=== PATIENT | male | born 1960 | race American Indian/Alaskan Native ===

== ENCOUNTER 2020-04-25 08:08 | Outpatient (REF) | payer MEDICAID, SELFPAY ==
--- NOTE | 2020-04-25 | US_ITS ---
EXAMINATION: COLOR-FLOW DUPLEX IMAGING OF THE BILATERAL LOWER EXTREMITY ARTERIAL SYSTEM. VELOCITY MEASUREMENTS THROUGHOUT THE FEMORAL ARTERIES WITH ANKLE-BRACHIAL PERIPHERAL ARTERIAL TESTING. Interventional Radiologist: Robby Curry M.D., F.S.I.R., F.A.C.R. CLINICAL INFORMATION: This is a 59-year-old male with peripheral arterial disease. RIGHT FEMORAL RUNOFF VELOCITIES: The right common femoral artery measures 458 cm/s and triphasic. The right profunda femoral artery 84 63 cm/s and is biphasic. Right proximal superficial femoral artery is occluded Mid superficial femoral artery is occluded Distal right superficial femoral artery is occluded Right popliteal velocity measures 80 cm/s and biphasic. The posterior tibial artery velocity measures 15 cm/s and was biphasic. Velocity measurements on the stent were performed. The stent appears occluded throughout its course. The right ankle-brachial index is 0.48 LEFT FEMORAL RUNOFF VELOCITIES: The left common femoral artery measures 187 cm/s and triphasic. The left profunda femoral artery is 50 to cm/s and is biphasic. Right proximal superficial femoral artery measures 91 cm/s and triphasic. Mid superficial femoral artery is 91 cm/s and triphasic. Distal right superficial femoral artery measures 69 cm/s and is triphasic. Right popliteal velocity measures 85 cm/s and is triphasic. The posterior tibial artery velocity measures 73 cm/s and triphasic Velocity measurements on the stent were performed. The [place] artery proximal to the stent: 117 cm/s and triphasic. Proximal stent: 91 cm/s and triphasic Mid stent: 91 cm/s and triphasic Distal stent: 58 cm/s and triphasic [place] artery distal to the stent 69 cm/s and triphasic The left ankle-brachial index is 0.85. Atherosclerotic plaque is seen throughout the arteries bilaterally. US/US arterial duplex LE BI IMPRESSION: 1. Abnormal peripheral arterial testing with abnormal bilateral ankle-brachial indices. The disease appears severe on the right and moderate on the left. 2. There is occlusion of the [place] right superficial femoral artery. 3. The right lower extremity stent appears to be occluded. 4. The left lower extremity stent appears to be patent without focal stenosis.
--- NOTE | 2020-04-25 | US_ITS ---
EXAMINATION: COLOR-FLOW DUPLEX IMAGING OF THE BILATERAL LOWER EXTREMITY ARTERIAL SYSTEM. VELOCITY MEASUREMENTS THROUGHOUT THE FEMORAL ARTERIES WITH ANKLE-BRACHIAL PERIPHERAL ARTERIAL TESTING. Interventional Radiologist: Robby Curry M.D., F.S.I.R., F.A.C.R. CLINICAL INFORMATION: This is a 59-year-old male with peripheral arterial disease. RIGHT FEMORAL RUNOFF VELOCITIES: The right common femoral artery measures 458 cm/s and triphasic. The right profunda femoral artery 84 63 cm/s and is biphasic. Right proximal superficial femoral artery is occluded Mid superficial femoral artery is occluded Distal right superficial femoral artery is occluded Right popliteal velocity measures 80 cm/s and biphasic. The posterior tibial artery velocity measures 15 cm/s and was biphasic. Velocity measurements on the stent were performed. The stent appears occluded throughout its course. The right ankle-brachial index is 0.48 LEFT FEMORAL RUNOFF VELOCITIES: The left common femoral artery measures 187 cm/s and triphasic. The left profunda femoral artery is 50 to cm/s and is biphasic. Right proximal superficial femoral artery measures 91 cm/s and triphasic. Mid superficial femoral artery is 91 cm/s and triphasic. Distal right superficial femoral artery measures 69 cm/s and is triphasic. Right popliteal velocity measures 85 cm/s and is triphasic. The posterior tibial artery velocity measures 73 cm/s and triphasic Velocity measurements on the stent were performed. The [place] artery proximal to the stent: 117 cm/s and triphasic. Proximal stent: 91 cm/s and triphasic Mid stent: 91 cm/s and triphasic Distal stent: 58 cm/s and triphasic [place] artery distal to the stent 69 cm/s and triphasic The left ankle-brachial index is 0.85. Atherosclerotic plaque is seen throughout the arteries bilaterally. US/US STEPHANIE complete IMPRESSION: 1. Abnormal peripheral arterial testing with abnormal bilateral ankle-brachial indices. The disease appears severe on the right and moderate on the left. 2. There is occlusion of the [place] right superficial femoral artery. 3. The right lower extremity stent appears to be occluded. 4. The left lower extremity stent appears to be patent without focal stenosis.
== END 2020-04-25 08:09 | disposition home or self-care (01) ==
LOC: HO.US 08:08
PROVIDERS: PCP Family Medicine; Visit Provider Surgery Vascular Surgery
DX: I73.9 Peripheral vascular disease, unspecified (principal)
CPT/HCPCS: 93923; 93925

== ENCOUNTER → 2020-06-04 08:03 | Outpatient (BNVA) | payer MEDICAID, SELFPAY | PROVIDERS: PCP Family Medicine; Referring Provider Family Medicine; Visit Provider Psychiatry & Neurology Neurology | DX: Z13.89 Encounter for screening for other disorder (principal) ==

== ENCOUNTER 2020-07-25 10:49 | Emergency (ER) | payer MEDICAID, SELFPAY ==
[2020-07-25 11:46] VITALS: BP 157/52; PULSE 92; RESP 16; TEMP 36.5; O2SAT 100; BMI 35.1
--- NOTE | 2020-07-25 11:57 | US_ITS ---
EXAMINATION: US VENOUS ULTRASOUND WITH DOPPLER LOWER EXTREMITY, RIGHT CLINICAL INFORMATION: Right lower extremity pain and swelling. Assess for occult DVT COMPARISON: None TECHNIQUE: Ultrasound of the deep veins is performed from the hip to the calf with compression sonography and color and pulse Doppler assessment. Spectral analysis with color-flow imaging is performed. FINDINGS: There is normal venous compression and respiratory variation and augmented flow. The visualized common femoral vein, superficial femoral vein, profunda femoral vein, popliteal vein, and the trifurcation region shows no evidence of deep venous thrombosis. No popliteal fossa cyst. US/US venous duplex LE RT IMPRESSION: No DVT demonstrated in the right lower extremity.
--- NOTE | 2020-07-25 14:37 | ED_ITS ---
HPI - Extremity Injury (Lower) General Chief Complaint: Extremity Injury, Lower Stated Complaint: leg pain Time Seen by Provider: 07/25/20 11:57 History of Present Illness HPI Narrative: Patient complains of right leg redness and intermittent swelling over many many months that is coming and going, he made an appointment with his doctor a week ago went to the doctor's office and there was some swelling that was new in his right leg which the patient says is consistent with many prior episodes and was referred to the ER Patient says that the swelling we are seeing today is something that is common for him over many months, he has no acute pain, he has no difficulty breathing no shortness of breath no fever no chills Related Data Allergies Allergy/AdvReac Type Severity Reaction Status Date / Time No Known Drug Allergies Allergy Unknown UNKNOWN Unverified 03/21/20 17:24 Review of Systems Review of Systems: Positive for chronic right leg and left leg intermittent pain and swelling, worse on the right today Negatives are fever chills dizziness weakness, there is no shortness breath no chest pain, no palpitations, no recent injury, no numbness no weakness no tingling no back pain no urinary symptoms Yes all other systems are reviewed and are negative [facility]LY [facility] Past Medical History Attestation statement: The following information was validated with the patient. [facility] Narrative: Patient states he has many many months of symptoms in both legs with mild redness, occasionally swelling mild discomfort Source: nursing notes reviewed Medical History (Updated 07/25/20 @ 14:40 by NIEVES Kamara) Asthma Diabetes High cholesterol HTN (hypertension) Surgical History (Updated 05/08/20 @ 10:43 by Harper Marie MA) Hx of varicose vein stripping S/P angiogram of extremity Family History Family History (Updated 05/08/20 @ 10:38 by Harper Marie MA) Father No problems noted. Mother Diabetes HTN (hypertension) Sister No problems noted. Sister Diabetes HTN (hypertension) Sister No problems noted. Social History Social History (Updated 05/08/20 @ 10:36 by Harper Marie MA) Smoking Status: Current every day smoker Cigarettes Per Day: 11 Smoked in Last 30 Days: Yes Use of substances other than those prescribed or required for medical reasons: No Advance Directives: No Advance Directives Information Provided: No Physical Exam 2 Vital Signs: Vital Signs: Last Vital Signs Temp 97.3 F 07/25/20 14:50 Pulse 71 07/25/20 14:50 Resp 16 07/25/20 14:50 BP 156/53 H 07/25/20 14:50 Pulse Ox 98 07/25/20 14:50 Body Mass Index 35.1 General appearance no acute distress, comfortable, relaxed, cooperative Head is normocephalic atraumatic Neck is supple Chest is clear to auscultation bilaterally with full symmetric equal breath sounds, no chest wall tenderness, the heart no murmur auscultated The abdomen is soft nontender The extremities both have mild redness over distal extremities, not warm not tender not cold, they are both symmetrical, there is some swelling of the lower leg on the right side with no significant calf tenderness, there is no edema in either leg, the capillary refill was normal in both feet, but I could not palpate a pulse in either leg, Doppler exam revealed pulses in both legs, there were no wounds and skin was intact Neuro no focal deficit, gait is normal, motor is 5/5 x4 and sensation is intact and symmetrical Course Course Course Narrative: Ultrasound of right lower leg that was done because of the swelling today was negative for DVT patient's symptoms have been ongoing for almost a year, no sign of blood clot no cellulitis no ischemia today Concern is possible circulation problem and recommendation is follow with vascular surgeon for for further evaluation of blood flow to the feet Discharge Plan Discharge Clinical Impression: Chronic leg pain Qualifiers: Laterality: right Qualified Code(s): M79.604 - Pain in right leg Patient Disposition: Home, Self-Care Additional Instructions: We did an ultrasound of the leg which did not show any clot or any acute abnormality There did not appear to be any skin infection now Follow with primary care doctor for possible referral to a vascular specialist for ongoing issue with intermittent swelling and redness in the leg which may be from poor circulation Return to ER any time any worse condition or any concerns Discharge Date/Time: 07/25/20 15:03
--- NOTE | 2020-07-25 14:38 | PC.NURSE ---
+PP LEFT FOOT, +POST TIBIAL PULSE RT AND FAINT +PP RT FOOT BY DOPPLER, NIEVES IRAHETA
[2020-07-25 14:50] VITALS: BP 156/53; PULSE 71; RESP 16; TEMP 36.3; O2SAT 98
== END 2020-07-25 15:03 | disposition home or self-care (01) ==
PROVIDERS: Emergency Provider Emergency Medicine Emergency Medical Services; PCP Family Medicine
DX: M79.604 Pain in right leg (principal); R60.0 Localized edema; Z79.899 Other long term (current) drug therapy
CPT/HCPCS: 93971; 99284

== ENCOUNTER → 2020-09-17 10:05 | Outpatient (BNVA) | payer MEDICAID, SELFPAY | PROVIDERS: PCP Family Medicine; Visit Provider Surgery Vascular Surgery | DX: I73.9 Peripheral vascular disease, unspecified (principal) | CPT/HCPCS: 99212 ==

== ENCOUNTER 2020-09-24 08:59 | Outpatient (REF) | payer MEDICAID, SELFPAY ==
--- NOTE | ~2020-09-24 | US_ITS ---
EXAMINATION: NONINVASIVE ASSESSMENT OF THE ARTERIES OF THE AORTA AND BOTH LOWER EXTREMITIES WITH PVR EXAM AND BILATERAL LOWER EXTREMITY DUPLEX CLINICAL INFORMATION: Peripheral vascular disease. COMPARISON: Previous exam 12/20/2019. TECHNIQUE: Ankle pulse volume recordings, ankle pressure measurements and ankle-brachial indices were obtained of the lower extremity arterial system bilaterally in addition to duplex Doppler techniques with wave form analysis and measurement of velocities in the common femoral, profunda femoral, superficial femoral, popliteal and tibial arteries. The study was performed only at rest. FINDINGS: The visualized abdominal aorta is normal in caliber. No aneurysm is seen. Aortic peak systolic velocity is 22 cm/s proximally. The visualized right common iliac artery peak systolic velocity measures 28 cm/s with monophasic flow. The visualized right external iliac artery peak systolic velocity measures 121 cm/s with monophasic flow. The visualized left common iliac artery systolic velocity measures 42 cm/s with monophasic flow. The visualized left external iliac artery peak systolic velocity measures 133 cm/s with monophasic flow. AT REST: RIGHT LE. The right ankle-brachial index is: 0.5 2. Right ankle pressure: Decreased 3. Right ankle PVR waveform: Dampened 4. Right direct duplex Doppler findings: There is diffuse atherosclerotic disease with vessel wall calcification. There is visible luminal narrowing of the right common femoral artery. * Common femoral artery: 116 cm/s * Diastolic flow reversal: No. Monophasic. * Right profunda peak systolic velocity 92 cm/s with monophasic flow. * Superficial femoral artery (proximal, mid, distal): Occluded * Diastolic flow reversal: No. The right SFA stent is occluded. * Popliteal artery: 324 cm/s * Diastolic flow reversal: No. Monophasic. * Posterior tibial artery: 20 cm/s * Diastolic flow reversal: No. Monophasic. LEFT LE. The left ankle-brachial index is: 0.71 2. Left ankle pressure: Decreased 3. Left ankle PVR waveform: Dampened 4. Left direct duplex Doppler findings: There is diffuse atherosclerotic disease with vessel wall calcification. There is visible luminal narrowing of the left common femoral artery. * Common femoral artery: 78 cm/s * Diastolic flow reversal: No. Biphasic. Left [place]unda peak systolic velocity measures 132 cm/s with biphasic flow. * Superficial femoral artery (proximal, mid, distal): Occluded * Diastolic flow reversal: No. left SFA stent systolic velocities measure 322 cm/s proximally, 74 cm/s in the mid stent and 68 cm/s in the distal stent suggestive of hemodynamically significant stenosis. There is visible luminal narrowing throughout the length of the stent. * Popliteal artery: 33 cm/s * Diastolic flow reversal: No. Biphasic. * Posterior tibial artery: 11 cm/s * Diastolic flow reversal: No. Monophasic. STEPHANIE Reference: * >0.97-1.25 = normal - no significant arterial disease * 0.75-0.96 = mild peripheral arterial disease * 0.5-0.74 = moderate peripheral arterial disease * <0.50 = severe peripheral arterial disease US/US STEPHANIE complete IMPRESSION: Right: The right STEPHANIE is 0.5 suggestive of hiiciiop-op-cmmlys obstructive atherosclerotic disease. Monophasic flow throughout. There is significant plaque seen in the right common femoral artery. The right [place] superficial femoral artery and SFA stent are occluded. There are markedly elevated peak systolic velocities in the right popliteal artery suggestive of hemodynamically significant stenosis. There is dampened monophasic flow seen in the right posterior tibial artery. Left: The left STEPHANIE is 0.71 suggestive of moderate obstructive atherosclerotic disease. There is significant plaque seen in the left common femoral artery. The left [place] superficial femoral artery is occluded. There is diffuse luminal narrowing of the left SFA stent and elevated peak velocity suggestive of hemodynamically significant stenosis. Left popliteal artery is diseased but patent with biphasic flow. There is dampened monophasic flow seen in the left posterior tibial artery.
--- NOTE | ~2020-09-24 | US_ITS ---
EXAMINATION: NONINVASIVE ASSESSMENT OF THE ARTERIES OF THE AORTA AND BOTH LOWER EXTREMITIES WITH PVR EXAM AND BILATERAL LOWER EXTREMITY DUPLEX CLINICAL INFORMATION: Peripheral vascular disease. COMPARISON: Previous exam 12/20/2019. TECHNIQUE: Ankle pulse volume recordings, ankle pressure measurements and ankle-brachial indices were obtained of the lower extremity arterial system bilaterally in addition to duplex Doppler techniques with wave form analysis and measurement of velocities in the common femoral, profunda femoral, superficial femoral, popliteal and tibial arteries. The study was performed only at rest. FINDINGS: The visualized abdominal aorta is normal in caliber. No aneurysm is seen. Aortic peak systolic velocity is 22 cm/s proximally. The visualized right common iliac artery peak systolic velocity measures 28 cm/s with monophasic flow. The visualized right external iliac artery peak systolic velocity measures 121 cm/s with monophasic flow. The visualized left common iliac artery systolic velocity measures 42 cm/s with monophasic flow. The visualized left external iliac artery peak systolic velocity measures 133 cm/s with monophasic flow. AT REST: RIGHT LE. The right ankle-brachial index is: 0.5 2. Right ankle pressure: Decreased 3. Right ankle PVR waveform: Dampened 4. Right direct duplex Doppler findings: There is diffuse atherosclerotic disease with vessel wall calcification. There is visible luminal narrowing of the right common femoral artery. * Common femoral artery: 116 cm/s * Diastolic flow reversal: No. Monophasic. * Right profunda peak systolic velocity 92 cm/s with monophasic flow. * Superficial femoral artery (proximal, mid, distal): Occluded * Diastolic flow reversal: No. The right SFA stent is occluded. * Popliteal artery: 324 cm/s * Diastolic flow reversal: No. Monophasic. * Posterior tibial artery: 20 cm/s * Diastolic flow reversal: No. Monophasic. LEFT LE. The left ankle-brachial index is: 0.71 2. Left ankle pressure: Decreased 3. Left ankle PVR waveform: Dampened 4. Left direct duplex Doppler findings: There is diffuse atherosclerotic disease with vessel wall calcification. There is visible luminal narrowing of the left common femoral artery. * Common femoral artery: 78 cm/s * Diastolic flow reversal: No. Biphasic. Left [place] peak systolic velocity measures 132 cm/s with biphasic flow. * Superficial femoral artery (proximal, mid, distal): Occluded * Diastolic flow reversal: No. left SFA stent systolic velocities measure 322 cm/s proximally, 74 cm/s in the mid stent and 68 cm/s in the distal stent suggestive of hemodynamically significant stenosis. There is visible luminal narrowing throughout the length of the stent. * Popliteal artery: 33 cm/s * Diastolic flow reversal: No. Biphasic. * Posterior tibial artery: 11 cm/s * Diastolic flow reversal: No. Monophasic. STEPHANIE Reference: * >0.97-1.25 = normal - no significant arterial disease * 0.75-0.96 = mild peripheral arterial disease * 0.5-0.74 = moderate peripheral arterial disease * <0.50 = severe peripheral arterial disease US/US abdominal aortic aneurysm IMPRESSION: Right: The right STEPHANIE is 0.5 suggestive of ewtqeral-hw-ofmaaz obstructive atherosclerotic disease. Monophasic flow throughout. There is significant plaque seen in the right common femoral artery. The right [place] superficial femoral artery and SFA stent are occluded. There are markedly elevated peak systolic velocities in the right popliteal artery suggestive of hemodynamically significant stenosis. There is dampened monophasic flow seen in the right posterior tibial artery. Left: The left STEPHANIE is 0.71 suggestive of moderate obstructive atherosclerotic disease. There is significant plaque seen in the left common femoral artery. The left [place] superficial femoral artery is occluded. There is diffuse luminal narrowing of the left SFA stent and elevated peak velocity suggestive of hemodynamically significant stenosis. Left popliteal artery is diseased but patent with biphasic flow. There is dampened monophasic flow seen in the left posterior tibial artery.
--- NOTE | ~2020-09-24 | US_ITS ---
EXAMINATION: NONINVASIVE ASSESSMENT OF THE ARTERIES OF THE AORTA AND BOTH LOWER EXTREMITIES WITH PVR EXAM AND BILATERAL LOWER EXTREMITY DUPLEX CLINICAL INFORMATION: Peripheral vascular disease. COMPARISON: Previous exam 12/20/2019. TECHNIQUE: Ankle pulse volume recordings, ankle pressure measurements and ankle-brachial indices were obtained of the lower extremity arterial system bilaterally in addition to duplex Doppler techniques with wave form analysis and measurement of velocities in the common femoral, profunda femoral, superficial femoral, popliteal and tibial arteries. The study was performed only at rest. FINDINGS: The visualized abdominal aorta is normal in caliber. No aneurysm is seen. Aortic peak systolic velocity is 22 cm/s proximally. The visualized right common iliac artery peak systolic velocity measures 28 cm/s with monophasic flow. The visualized right external iliac artery peak systolic velocity measures 121 cm/s with monophasic flow. The visualized left common iliac artery systolic velocity measures 42 cm/s with monophasic flow. The visualized left external iliac artery peak systolic velocity measures 133 cm/s with monophasic flow. AT REST: RIGHT LE. The right ankle-brachial index is: 0.5 2. Right ankle pressure: Decreased 3. Right ankle PVR waveform: Dampened 4. Right direct duplex Doppler findings: There is diffuse atherosclerotic disease with vessel wall calcification. There is visible luminal narrowing of the right common femoral artery. * Common femoral artery: 116 cm/s * Diastolic flow reversal: No. Monophasic. * Right [place] peak systolic velocity 92 cm/s with monophasic flow. * Superficial femoral artery (proximal, mid, distal): Occluded * Diastolic flow reversal: No. The right SFA stent is occluded. * Popliteal artery: 324 cm/s * Diastolic flow reversal: No. Monophasic. * Posterior tibial artery: 20 cm/s * Diastolic flow reversal: No. Monophasic. LEFT LE. The left ankle-brachial index is: 0.71 2. Left ankle pressure: Decreased 3. Left ankle PVR waveform: Dampened 4. Left direct duplex Doppler findings: There is diffuse atherosclerotic disease with vessel wall calcification. There is visible luminal narrowing of the left common femoral artery. * Common femoral artery: 78 cm/s * Diastolic flow reversal: No. Biphasic. Left [place] peak systolic velocity measures 132 cm/s with biphasic flow. * Superficial femoral artery (proximal, mid, distal): Occluded * Diastolic flow reversal: No. left SFA stent systolic velocities measure 322 cm/s proximally, 74 cm/s in the mid stent and 68 cm/s in the distal stent suggestive of hemodynamically significant stenosis. There is visible luminal narrowing throughout the length of the stent. * Popliteal artery: 33 cm/s * Diastolic flow reversal: No. Biphasic. * Posterior tibial artery: 11 cm/s * Diastolic flow reversal: No. Monophasic. STEPHANIE Reference: * >0.97-1.25 = normal - no significant arterial disease * 0.75-0.96 = mild peripheral arterial disease * 0.5-0.74 = moderate peripheral arterial disease * <0.50 = severe peripheral arterial disease US/US arterial duplex LE BI IMPRESSION: Right: The right STEPHANIE is 0.5 suggestive of levlicoq-lx-svxson obstructive atherosclerotic disease. Monophasic flow throughout. There is significant plaque seen in the right common femoral artery. The right [place] superficial femoral artery and SFA stent are occluded. There are markedly elevated peak systolic velocities in the right popliteal artery suggestive of hemodynamically significant stenosis. There is dampened monophasic flow seen in the right posterior tibial artery. Left: The left STEPHANIE is 0.71 suggestive of moderate obstructive atherosclerotic disease. There is significant plaque seen in the left common femoral artery. The left [place] superficial femoral artery is occluded. There is diffuse luminal narrowing of the left SFA stent and elevated peak velocity suggestive of hemodynamically significant stenosis. Left popliteal artery is diseased but patent with biphasic flow. There is dampened monophasic flow seen in the left posterior tibial artery.
== END 2020-09-24 09:00 | disposition home or self-care (01) ==
LOC: HO.US 08:59
PROVIDERS: Visit Provider Surgery Vascular Surgery
DX: I70.213 Atherosclerosis of native arteries of extremities with intermittent claudication, bilateral legs (principal)
CPT/HCPCS: 76706; 93923; 93925

== ENCOUNTER 2020-10-09 08:48 | Outpatient (REF) | payer MEDICAID, SELFPAY ==
[2020-10-09 10:35] LABS: Estimated Glomerular Filt Rate > 60
[2020-10-09 10:38] LABS: Blood Urea Nitrogen 14 mg/dL (9-16)
== END 2020-10-09 08:49 | disposition home or self-care (01) ==
LOC: HO.LAB 08:48
PROVIDERS: PCP Family Medicine; Visit Provider Surgery Vascular Surgery
DX: I73.9 Peripheral vascular disease, unspecified (principal)
CPT/HCPCS: 36415; 82565; 84520

== ENCOUNTER 2020-10-14 10:03 | Outpatient (REF) | payer MEDICAID, SELFPAY | END 2020-10-14 10:04 | disposition home or self-care (01) | LOC: HO.CT 10:03 | PROVIDERS: Visit Provider Surgery Vascular Surgery | DX: Z13.89 Encounter for screening for other disorder (principal) ==

== ENCOUNTER 2020-12-10 04:43 | Inpatient (IN) | payer MEDICAID, SELFPAY ==
[2020-12-10] VITALS (9 sets, daily range): BP systolic 110–152; BP diastolic 46–76; PULSE 82–104; RESP 15–20; TEMP 36.3–37.7; O2SAT 96–98; BMI 34.2
--- NOTE | ~2020-12-10 | CT_ITS ---
EXAMINATION: CT ABDOMEN AND PELVIS WITH CONTRAST CLINICAL INFORMATION: Induration, perineal pain COMPARISON: 10/17/2019 TECHNIQUE: Multidetector volumetric images were obtained from the superior aspect of the liver through the pubic symphysis following administration 85 mL of Omnipaque 350 intravenous contrast. Sagittal and coronal reformatted images were obtained on the technologist's workstation. Oral contrast: No This CT examination was performed using dose optimization techniques as appropriate, variously including the following: *Automated exposure control *Adjustment of mA and/or kV according to patient size (this includes techniques or standardized protocols for targeted exams where dose is matched to indication/reason for exam; i.e. extremities or head) *Use of iterative reconstruction technique DLP: 878 mGy-cm FINDINGS: LUNG BASES: The visualized lung bases are unremarkable. Mild cardiomegaly. LIVER, GALLBLADDER, AND BILIARY TREE: The liver is normal in size, shape, and attenuation. No focal hepatic lesion or biliary ductal dilatation is present. The gallbladder is unremarkable with no evidence of radiopaque gallstones, gallbladder wall thickening, or obvious pericholecystic inflammatory changes. PANCREAS: Unremarkable. SPLEEN: Unremarkable. ADRENAL GLANDS: Unremarkable. KIDNEYS AND URETERS: The kidneys are normal in size, shape, and attenuation. No hydronephrosis, hydroureter, or obstructing calculi seen. Few scattered small hypodensities in the right kidney favor cysts. BLADDER: Partially distended. There is mild asymmetric left-sided bladder wall thickening with tiny amount of calcification as seen on image 83/119. GASTROINTESTINAL TRACT: The small and large bowel are unremarkable. The appendix is unremarkable. No free fluid or free air is seen. ABDOMINAL WALL: There are bilateral fat-containing inguinal hernias. There is some fat stranding along the perineum; no soft tissue gas or collection is seen. LYMPH NODES: Normal. VASCULAR: There is atherosclerotic calcification along the aorta and iliac arteries. Bilateral iliac artery stents noted. PELVIC VISCERA: The prostate gland is enlarged, measuring 5.3 cm in transverse diameter. OSSEOUS STRUCTURES: Unremarkable. CT/CT abdomen pelvis w con IMPRESSION: 1. Fat stranding along the perineum which may reflect cellulitis. No soft tissue gas or collection identified. 2. Mild left-sided bladder wall thickening containing tiny amount of calcification. Malignancy is a possibility, and further workup is recommended which may be performed with cystoscopy. 3. Enlarged prostate gland.
[2020-12-10 05:10] LABS: Basophils Absolute Auto 0.1 X10*3/uL (0.0-0.2); Basophils Percent Auto 0.4 % (0-2); Eosinophils Absolute Auto 0.1 X10*3/uL (0.0-0.4); Eosinophils Percent Auto 0.7 % (0-4); Hematocrit 44.3 % (42-52); Imm Gran Abs Auto 0.08 X10*3/uL (0.00-0.03); Imm Gran Pct Auto 0.4 % (0.0-0.4); Lymphocytes Absolute Auto 1.9 X10*3/uL (1.2-4.9); Lymphocytes Percent Auto 10.4 % (20-40); MANUAL DIFF FLAG SCAN; Mean Corpuscular HGB Conc 33.9 g/dl (31.0-36.0); Mean Corpuscular Hemoglobin 30.6 pg (27.0-33.0); Mean Corpuscular Volume 90.4 fL (80-98); Mean Platelet Volume 10.3 fL (9.4-12.4); Monocytes Absolute Auto 1.7 X10*3/uL (0.1-1.2); Monocytes Percent Auto 9.4 % (2-11); Neutrophils Absolute Auto 14.5 X10*3/uL (2.0-8.3); Neutrophils Percent Auto 78.7 % (45-73); Platelet Count 214 X10*3/uL (160-400); Red Cell Distribution Width 13.5 % (11.0-16.0); SCAN SMEAR FLAG 1; White Blood Count 18.4 X10*3/uL (4.8-10.8)
[2020-12-10 05:32] LABS: Alanine Aminotransferase 21 U/L (0-40); Albumin Level 4.1 g/dL (3.5-5.0); Alkaline Phosphatase 72 U/L (39-117); Anion Gap 15 (12-20); Aspartate Amino Transferase 12 U/L (5-37); Bilirubin Total 1.7 mg/dL (0.0-1.0); Blood Urea Nitrogen 12 mg/dL (9-16); Calcium 9.3 mg/dL (8.4-10.2); Carbon Dioxide 19 mmol/L (22-29); Chloride 102 mmol/L (96-108); Creatinine Clr Calc Pharmacy 91.3; Estimated Glomerular Filt Rate > 60; Glucose Random 223 mg/dL (60-115); Lipase 6 U/L (8-78); Potassium 4.3 mmol/L (3.3-5.1); Sodium 132 mmol/L (135-145); Total Protein 7.2 g/dL (6.5-8.0)
[2020-12-10 05:33] LABS: SLIDE REVIEW VERIFIED
[2020-12-10] MEDS: iohexoL 350 MG/ML 100 ML INFUS..BTL 85 ML IV (06:02)
--- NOTE | 2020-12-10 06:08 | ED.SKABFB ---
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 in the morning. Patient states that this just started and denies any associated fevers but reports chills. Related Data Home Medications Medication Instructions Recorded Confirmed aspirin 81 mg tablet,delayed 81 mg PO DAILY 09/17/20 release atorvastatin 80 mg tablet 80 mg PO DAILY 09/17/20 carvedilol 6.25 mg tablet 6.25 mg PO BID 09/17/20 cilostazol 100 mg tablet 100 mg PO BID 09/17/20 clopidogrel 75 mg tablet 75 mg PO DAILY 09/17/20 lisinopril 40 mg tablet 40 mg PO DAILY 09/17/20 metformin 750 mg tablet,extended 750 mg PO DAILY 09/17/20 release 24 hr pantoprazole 20 mg tablet,delayed 20 mg PO DAILY 09/17/20 release Allergies Allergy/AdvReac Type Severity Reaction Status Date / Time No Known Drug Allergies Allergy Unknown UNKNOWN Verified 09/17/20 10:23 Review of Systems Review of Systems: Pertinent positives and negatives as stated in HPI 10 point review of systems otherwise negative [facility] Past Medical History Source: nursing notes reviewed Medical History Asthma Diabetes High cholesterol HTN (hypertension) Surgical History Hx of varicose vein stripping S/P angiogram of extremity Family History Family History Father No problems noted. Mother Diabetes HTN (hypertension) Sister No problems noted. Sister Diabetes HTN (hypertension) Sister No problems noted. Social History Social History Alcohol intake: never Patient Tobacco Use Status: Current someday Tobacco user Cigarettes Per Day: 11 Smoked in Last 30 Days: Yes Use of substances other than those prescribed or required for medical reasons: No Advance Directives: No Physical Exam Vital Signs: Vital Signs: Last Vital Signs Temp 98.5 F 12/10/20 07:54 Pulse 95 12/10/20 07:54 Resp 19 12/10/20 07:54 BP 145/76 H 12/10/20 07:54 Pulse Ox 97 12/10/20 07:54 Body Mass Index 34.2 VITAL SIGNS: Reviewed. GENERAL: Well developed, well nourished, in no acute distress. HEAD: Normocephalic/atraumatic, EYES: PERRLA, EOMI OROPHARYNX: no oral lesions noted, posterior pharynx clear NECK: Supple, no adenopathy LUNGS: Normal breath sounds. No adventitious sounds or accessory muscle use. SpO2<96> CARDIOVASCULAR: Regular rate and rhythm without noted murmurs, no JVD or lower extremity edema. ABDOMEN: Soft, non-tender, non-distended with bowel sounds. PERINEAL: There is a noted 1.5 cm by 4-1/2 cm elliptical injury rated area of skin at the base of the scrotum the extends mildly posterior, there is no crepitus, and unable to appreciate fluctuance, no evidence of erythema, and further right posterior there is a noted area of abscess with spontaneous drainage of purulence material but in compass is a much larger area of induration SKIN: Inspection of the skin reveals no rashes NEUROLOGIC: Alert and oriented x 4. Strength and sensation to light touch were grossly intact x 4. Course Course Course Narrative: This is a 60-year-old male with history and clinical presentation consistent with perineal cellulitis. Review of all investigations illustrate a leukocytosis but CT scan not showing discrete collection. An area of purulence and fluctuance was noted to the right inferior gluteus with minimal drainage after incision. CRP-5.82, patient received vancomycin and Zosyn and consult was provided to surgical services and patient will be admitted to medicine service. Signed out to Dr Gould. Procedures Abscess I/D Site: marina-rectal Side (if applicable): right Local Anesthetic: lidocaine 2% Amount of anesthesia used (mL): 2 Technique: incised with blade Amount of fluid expressed (mL): 5 Sent for culture/gram staining?: No Irrigation: Yes Packing used?: iodoform MDM - Skin/Abscess/Foreign Bdy Lab Data Result diagrams: 12/10/20 05:02 12/10/20 05:02 Labs: Lab Results 12/10/20 12/10/20 12/10/20 Range/Units 05:02 05:02 05:47 WBC 18.4 H (4.8-10.8) X10*3/uL RBC 4.90 (4.60-5.80) X10*6/uL Hgb 15.0 (14.0-18.0) g/dl Hct 44.3 (42-52) % MCV 90.4 (80-98) fL MCH 30.6 (27.0-33.0) pg MCHC 33.9 (31.0-36.0) g/dl RDW 13.5 (11.0-16.0) % Plt Count 214 (160-400) X10*3/uL MPV 10.3 (9.4-12.4) fL Immature Gran % (Auto) 0.4 (0.0-0.4) % Neut % (Auto) 78.7 H (45-73) % Lymph % (Auto) 10.4 L (20-40) % [place] % (Auto) 9.4 (2-11) % Eos % (Auto) 0.7 (0-4) % Baso % (Auto) 0.4 (0-2) % Lymph # (Auto) 1.9 (1.2-4.9) X10*3/uL [place] # (Auto) 1.7 H (0.1-1.2) X10*3/uL Eos # (Auto) 0.1 (0.0-0.4) X10*3/uL Baso # (Auto) 0.1 (0.0-0.2) X10*3/uL Abs Immat Gran (auto) 0.08 H (0.00-0.03) X10*3/uL Absolute Neuts (auto) 14.5 H (2.0-8.3) X10*3/uL Absolute Nucleated RBC 0.000 (0.0-0.012) X10*3/uL Nucleated RBC % (auto) 0.0 (0.0-0.2) /100WBC Smear Tech's Comments VERIFIED Sodium 132 L (135-145) mmol/L Potassium 4.3 (3.3-5.1) mmol/L Chloride 102 (96-108) mmol/L Carbon Dioxide 19 L (22-29) mmol/L Anion Gap 15 (12-20) BUN 12 (9-16) mg/dL Creatinine 0.91 (0.5-1.4) mg/dL Estim Creat Clear Calc 91.3 Estimated GFR > 60 Random Glucose 223 H (60-115) mg/dL Lactic Acid 1.4 (0.5-2.0) mmol/L Calcium 9.3 (8.4-10.2) mg/dL Total Bilirubin 1.7 H (0.0-1.0) mg/dL AST 12 (5-37) U/L ALT 21 (0-40) U/L Alkaline Phosphatase 72 (39-117) U/L C-Reactive Protein 5.82 H (< or = 0.50) mg/dL Total Protein 7.2 (6.5-8.0) g/dL Albumin 4.1 (3.5-5.0) g/dL Lipase 6 L (8-78) U/L Urine Color Urine Appearance Urine pH (5.0-8.0) Ur Specific [place] (1.005-1.025) Urine Protein (NEG-TRACE) MG/DL Urine Glucose (UA) (NEG) MG/DL Urine Ketones (NEG) MG/DL Urine Blood (NEG) Urine Nitrite (NEG) Ur Leukocyte Esterase (NEG) Urine RBC (0) /HPF Urine WBC (0-4) /HPF Ur Squamous Epith Cells /LPF Urine Bacteria /LPF 12/10/20 Range/Units 06:22 WBC (4.8-10.8) X10*3/uL RBC (4.60-5.80) X10*6/uL Hgb (14.0-18.0) g/dl Hct (42-52) % MCV (80-98) fL MCH (27.0-33.0) pg MCHC (31.0-36.0) g/dl RDW (11.0-16.0) % Plt Count (160-400) X10*3/uL MPV (9.4-12.4) fL Immature Gran % (Auto) (0.0-0.4) % Neut % (Auto) (45-73) % Lymph % (Auto) (20-40) % [place] % (Auto) (2-11) % Eos % (Auto) (0-4) % Baso % (Auto) (0-2) % Lymph # (Auto) (1.2-4.9) X10*3/uL [place] # (Auto) (0.1-1.2) X10*3/uL Eos # (Auto) (0.0-0.4) X10*3/uL Baso # (Auto) (0.0-0.2) X10*3/uL Abs Immat Gran (auto) (0.00-0.03) X10*3/uL Absolute Neuts (auto) (2.0-8.3) X10*3/uL Absolute Nucleated RBC (0.0-0.012) X10*3/uL Nucleated RBC % (auto) (0.0-0.2) /100WBC Smear Tech's Comments Sodium (135-145) mmol/L Potassium (3.3-5.1) mmol/L Chloride (96-108) mmol/L Carbon Dioxide (22-29) mmol/L Anion Gap (12-20) BUN (9-16) mg/dL Creatinine (0.5-1.4) mg/dL Estim Creat Clear Calc Estimated GFR Random Glucose (60-115) mg/dL Lactic Acid (0.5-2.0) mmol/L Calcium (8.4-10.2) mg/dL Total Bilirubin (0.0-1.0) mg/dL AST (5-37) U/L ALT (0-40) U/L Alkaline Phosphatase (39-117) U/L C-Reactive Protein (< or = 0.50) mg/dL Total Protein (6.5-8.0) g/dL Albumin (3.5-5.0) g/dL Lipase (8-78) U/L Urine Color YELLOW Urine Appearance CLEAR Urine pH 6.5 (5.0-8.0) Ur Specific [place] 1.010 (1.005-1.025) Urine Protein 1+ H (NEG-TRACE) MG/DL Urine Glucose (UA) 250 H (NEG) MG/DL Urine Ketones 5 (NEG) MG/DL Urine Blood 1+ H (NEG) Urine Nitrite NEG (NEG) Ur Leukocyte Esterase NEG (NEG) Urine RBC 0-2 (0) /HPF Urine WBC 0-2 (0-4) /HPF Ur Squamous Epith Cells NONE /LPF Urine Bacteria NONE /LPF Discharge Plan Discharge Clinical Impression: Cellulitis, perineum Patient Disposition: Admitted As Inpatient
[2020-12-10 06:22] LABS: Lactic Acid 1.4 mmol/L (0.5-2.0)
[2020-12-10 06:28] LABS: Glucose Urine UA 250 MG/DL (NEG); Leukocyte Esterase Urine NEG (NEG); Nitrite Urine NEG (NEG); PH 6.5 (5.0-8.0); Urine Blood 1+ (NEG); Urine Ketones 5 MG/DL (NEG); Urine Protein 1+ MG/DL (NEG-TRACE)
[2020-12-10 06:29] LABS: Appearance Urine CLEAR; Color Urine YELLOW
[2020-12-10 06:35] LABS: RBC Urine 0-2 /HPF (0); WBC Urine 0-2 /HPF (0-4)
[2020-12-10] MEDS: Ketorolac Tromethamine 15 MG/ML VIAL IVPUSH (07:07)
[2020-12-10] MEDS: Lidocaine HCl 2 % 20 ML VIAL SUBCUT (07:27)
[2020-12-10 08:05] LABS: C Reactive Protein 5.82 mg/dL (< or = 0.50)
[2020-12-10] MEDS: Piperacillin Sodium/Tazobactam 3.375 GM in 0.9 % Sodium Chloride 50 ML IV ×3 (08:05→23:45)
--- NOTE | 2020-12-10 08:07 | ECG_ITS ---
Test Reason : INFECTION Blood Pressure : / mmHG Vent. Rate : 084 BPM Atrial Rate : 084 BPM P-R Int : 176 ms QRS Dur : 112 ms QT Int : 398 ms P-R-T Axes : 081 -38 114 degrees QTc Int : 470 ms Normal sinus rhythm Possible Left atrial enlargement Left axis deviation Left ventricular hypertrophy with repolarization abnormality Inferior infarct , age undetermined Abnormal ECG When compared to the previous EKG of Inferior infarct changes seen Referred By: Nicolle Pandey Electronically Signed By:GLEN JAIN MD
[2020-12-10] MEDS: ondansetron HCL 4 MG/2 ML VIAL IVPUSH (08:08)
[2020-12-10] MEDS: vancomycin HCL 1,000 MG in 0.9 % Sodium Chloride 250 ML 270 MG IV (08:28)
--- NOTE | 2020-12-10 08:32 | PC.NURSE ---
ekg completed at bedside, awaiting consult from urology d/t appearance of testicular inclusion from wound sites. antibiotics infusing. wctm.
[2020-12-10 09:02] LABS: Erythrocyte Sedimentation Rate 10 MM/HR (0-15)
--- NOTE | 2020-12-10 09:54 | PC.NURSE ---
pt continuing to await for hospitalist re: inpt admission, pt requesting to use a pump inhaler, pt has slight wheeze on exp phase in bl bases. pt in nad, side lying l side in stretcher for comfort. wctm.
[2020-12-10 10:12] LABS: COVID-19 Test Negative (Negative)
[2020-12-10] MEDS: Albuterol Sulfate (0.083%) 2.5 MG/3 ML VIAL.NEB INHALE (10:54)
[2020-12-10] MEDS: Morphine Sulfate 4 MG/ML CARTRIDGE IVPUSH (11:05)
--- NOTE | 2020-12-10 12:26 | PC.NURSE ---
hospitalist at bedside for eval.
--- NOTE | 2020-12-10 13:36 | PHA.MEDREC ---
Pharmacy Consult ? Medication Reconciliation Pharmacy has completed the medication reconciliation. Patient is compliant with his medications through [facility] at [facility]. Patient did not take any medications today. Valerie Poon, SeveroD
[2020-12-10] MEDS: 0.9 % Sodium Chloride Flush 3 ML SYRINGE IVFLUSH ×2 (16:45→23:45)
--- NOTE | 2020-12-10 16:56 | PM.CNGS ---
History of Present Illness Consult details Consult date: 12/10/20 Narrative: [age] year male, with diabetes, who came to the emergency room this morning because of pain at the base of his scrotum. He was noted to have a small cellulitic area at the base of the scrotum on the perineum. He denied any trauma or insect bite to the area. He denied any drainage. He stated that he had noticed this swelling since 4 days ago. He denies any fever. This area was lanced by the ED staff and there was minimal output that was drained. He was admitted to the medical service for cellulitis. Review of Systems Constitutional: Constitutional: Denies fever(s) Cardiovascular: Cardiovascular: Denies chest pain, Denies dyspnea and Denies dyspnea on exertion Respiratory: Respiratory: Denies cough, Denies dyspnea and Denies dyspnea on exertion Gastrointestinal: Gastrointestinal: Denies hematochezia and Denies change in bowel habits Genitourinary: Genitourinary: Denies hematuria and Denies difficulty urinating Musculoskeletal: Musculoskeletal: Denies back pain and Denies limited range of motion Neurologic: Denies focal weakness and Denies convulsions Psychiatric: Psychiatric: Denies depression and Denies mood swings PMFSH Past Medical History Medical History (Updated 12/11/20 @ 11:23 by Holden Mojica MD) Asthma Diabetes High cholesterol HTN (hypertension) Family History Family History Father No problems noted. Mother Diabetes HTN (hypertension) Sister No problems noted. Sister Diabetes HTN (hypertension) Sister No problems noted. Surgical History Surgical History Hx of varicose vein stripping S/P angiogram of extremity Social History Social History Household Members: None Housing: Apartment Do you presently have visiting nurse or other home services: Yes Alcohol intake: never Patient Tobacco Use Status: Current someday Tobacco user Cigarettes Per Day: 6 Years Smoked: 15 Smoked in Last 30 Days: Yes Patient Interested in Nicotine Replacement: No Patient Given Instructions on How to Stop Smoking: No (patient refuses) Second Hand Smoke Exposure: No Use of substances other than those prescribed or required for medical reasons: No Currently Displaying Signs/Symptoms of Drug Intoxication Withdrawal: No Any prior treatment program specific to substance use: No Have you been hit, kicked, punched, or otherwise hurt by someone within the past year? If so, by whom?: No Do you feel safe in your current relationship?: Yes Is there a partner from a previous relationship who is making you feel unsafe now?: No Are you made to feel afraid or neglected: No Advance Directives: Yes Advance Directives on File: Yes Advance Directives Date on File: 12/10/20 Do you have thoughts of harming others: None Do you have a plan to hurt others: No Plan Nutrition Risks: No Nutritional Risk service: No Current occupational status: disabled Meds Allergies Allergy/AdvReac Type Severity Reaction Status Date / Time No Known Drug Allergies Allergy Unknown UNKNOWN Verified 09/17/20 10:23 Active Medications: Current Medications Generic Name Dose Route Start Last Admin Trade Name Freq PRN Reason Stop Dose Admin Acetaminophen 650 mg 12/10/20 15:56 Acetaminophen 325 Mg Tablet PO Q6H PRN Pain, Mild (Pain Scale 1-3) Ketorolac Tromethamine 15 mg 12/10/20 11:13 Ketorolac Tromethamine 15 Mg/Ml Vial IVPUSH Q6H PRN Pain, Moderate (Pain Scale 4-6 Morphine Sulfate 2 mg 12/10/20 15:56 Morphine Sulfate 4 Mg/Ml Cartridge IVPUSH Q4H PRN Pain, Severe (Pain Scale 7-10) Ondansetron HCl 4 mg 12/10/20 15:56 Ondansetron Hcl 4 Mg/2 Ml Vial IVPUSH Q8H PRN Nausea and Vomiting Pharmacy Consult 1 each 12/10/20 07:41 Consult Rx Vancomycin Dosing MISCELLANE DAILY PRN Consult order Pharmacy Consult 1 each 12/10/20 13:38 Consult Rx Perform Med Rec MISCELLANE ONCE PRN Consult order Rivaroxaban 10 mg 12/11/20 09:00 Rivaroxaban 10 Mg Tablet PO DAILY KARI Sodium Chloride 3 ml 12/10/20 16:00 12/10/20 16:45 0.9 % Sodium Chloride Flush 3 Ml Syringe IVFLUSH 3 ml QSHIFT [facility] Administration Home Medications Medication Instructions Recorded Confirmed Last Taken Type aspirin 81 mg PO DAILY 12/10/20 12/10/20 12/09/20 History atorvastatin 80 mg PO BEDTIME 12/10/20 12/10/20 12/09/20 History carvedilol 6.25 mg PO BID 12/10/20 12/10/20 12/09/20 History cilostazol 100 mg PO BID 12/10/20 12/10/20 12/09/20 History clopidogrel 75 mg PO BEDTIME 12/10/20 12/10/20 12/09/20 History insulin glargine [Lantus Solostar 40 unit SUBCUT BEDTIME 12/10/20 12/10/20 12/09/20 History U-100 Insulin] insulin lispro [Humalog KwikPen 12 unit SUBCUT TID PRN 12/10/20 12/10/20 12/09/20 History Insulin] ipratropium-albuterol [Combivent 1 puff INHALATION QID PRN 12/10/20 12/10/20 12/09/20 History Respimat] lisinopril 1 tab PO BEDTIME 12/10/20 12/10/20 12/09/20 History metformin 850 mg PO BID 12/10/20 12/10/20 12/09/20 History pantoprazole 20 mg PO DAILY 12/10/20 12/10/20 12/09/20 History polyvinyl alcohol [Artificial 1 drp OPHTHALMIC (EYE) BID 12/10/20 12/10/20 12/09/20 History Tears (polyvin alc)] Physical Exam Vital Signs: Vital Signs: Last Vital Signs Temp 98.6 F 12/10/20 15:57 Pulse 95 12/10/20 15:57 Resp 20 12/10/20 15:57 BP 149/73 H 12/10/20 15:57 Pulse Ox 96 12/10/20 15:57 Body Mass Index 34.2 Const: Other: Looks well, ambulating, does state that he has pain in the base of the scrotum General: comfortable and no acute distress Orientation/consciousness: patient oriented x3 Neck: Neck: Yes no lymphadenopathy Resp: Auscultation: clear to auscultation bilaterally Cardio: Rhythm: regular rhythm GI: Palpation (GI): Soft to palpation, nontender and no guarding : Other: Near the base of the scrotum in the perineum is an area of induration, about 2 cm, nonfluctuant, no drainage; separate area on the right posterior perianal skin with buttock with a small I&D site that has a very scanty drainage, no surrounding cellulitis, no discoloration, no red streaking, no crepitus Neuro: General: patient oriented x3 Results Labs Result diagrams: 12/12/20 06:08 12/12/20 06:08 Labs: Abnormal lab results 12/10/20 12/10/20 12/10/20 Range/Units 05:02 05:02 06:22 WBC 18.4 H (4.8-10.8) X10*3/uL Neut % (Auto) 78.7 H (45-73) % Lymph % (Auto) 10.4 L (20-40) % [place] # (Auto) 1.7 H (0.1-1.2) X10*3/uL Abs Immat Gran (auto) 0.08 H (0.00-0.03) X10*3/uL Absolute Neuts (auto) 14.5 H (2.0-8.3) X10*3/uL Sodium 132 L (135-145) mmol/L Carbon Dioxide 19 L (22-29) mmol/L Random Glucose 223 H (60-115) mg/dL Total Bilirubin 1.7 H (0.0-1.0) mg/dL C-Reactive Protein 5.82 H (< or = 0.50) mg/dL Lipase 6 L (8-78) U/L Urine Protein 1+ H (NEG-TRACE) MG/DL Urine Glucose (UA) 250 H (NEG) MG/DL Urine Blood 1+ H (NEG) Short CBC 12/10/20 Range/Units 05:02 WBC 18.4 H (4.8-10.8) X10*3/uL Hgb 15.0 (14.0-18.0) g/dl Hct 44.3 (42-52) % Plt Count 214 (160-400) X10*3/uL BMP 12/10/20 05:02 Sodium 132 L Potassium 4.3 Chloride 102 Carbon Dioxide 19 L BUN 12 Creatinine 0.91 Calcium 9.3 Liver Function 12/10/20 Range/Units 05:02 Total Bilirubin 1.7 H (0.0-1.0) mg/dL AST 12 (5-37) U/L ALT 21 (0-40) U/L Alkaline Phosphatase 72 (39-117) U/L Albumin 4.1 (3.5-5.0) g/dL Urine 12/10/20 Range/Units 06:22 Urine Color YELLOW Urine Appearance CLEAR Urine pH 6.5 (5.0-8.0) Ur Specific [place] 1.010 (1.005-1.025) Urine Protein 1+ H (NEG-TRACE) MG/DL Urine Glucose (UA) 250 H (NEG) MG/DL All other labs normal. Imaging Abdomen CT scan report/results: report reviewed and image reviewed CT scan - pelvis: report reviewed and image reviewed Assessment and Plan (1) Cellulitis, perineum: Status: Acute I have reviewed his CAT scan images. There are no signs of abscess or fluid collection. There is more of a soft induration in the area without any gas or any signs of necrotizing process. The patient does have a leukocytosis. He looks well and is non toxic looking. However, I told him that I will re-evaluate him in the morning and if there is no improvement, I would recommend doing an I and D in the operating room under anesthesia. He seems to understand. I will therefore follow along closely. I have discussed the above with the hospitalist service. He has been started on IV Zosyn for now. Procedures Date of Service Date of Service: 12/10/20
[2020-12-10 17:19] LABS: Glucose, Whole Blood 281 mg/dL (60-115)
--- NOTE | 2020-12-10 17:19 | PM.IMHP ---
History of Present Illness Date of Service: 12/10/20 Chief Complaint: Scrotal pain, cellulitis A 60 years old male with PMH of diabetes, asthma, HTN who presented to the hospital complaining of pain at the base of his scrotum for the last day. He reported that he woke up around 03:00 in the morning with a lot of pain in the perineum area and found a injury did swell in the area which was tender. He denies any drainage, shaving the area, any injuries or wounds. He reports the his swelling was noted a few days earlier. In ED provider try to drain but minimal output was noticed. A CT scan of the abdomen and pelvis was consistent with bladder wall thickening. The patient reported symptoms of frequency, hesitancy and dribbling. Started on antibiotics and admitted for further evaluation and treatment. Review of Systems Review of Systems: No fever, chills or weakness No chest pain, palpitation No shortness of breath or coughing No abdominal pain, nausea or vomiting Frequency, hesitancy and dribbling Swelling and induration in the perineal area PMFSH Medical History Asthma Diabetes High cholesterol HTN (hypertension) Family History Father No problems noted. Mother Diabetes HTN (hypertension) Sister No problems noted. Sister Diabetes HTN (hypertension) Sister No problems noted. Surgical History Hx of varicose vein stripping S/P angiogram of extremity Social History Household Members: None Housing: Apartment Do you presently have visiting nurse or other home services: Yes Alcohol intake: never Patient Tobacco Use Status: Current someday Tobacco user Cigarettes Per Day: 6 Years Smoked: 15 Smoked in Last 30 Days: Yes Patient Interested in Nicotine Replacement: No Patient Given Instructions on How to Stop Smoking: No (patient refuses) Second Hand Smoke Exposure: No Use of substances other than those prescribed or required for medical reasons: No Currently Displaying Signs/Symptoms of Drug Intoxication Withdrawal: No Any prior treatment program specific to substance use: No Have you been hit, kicked, punched, or otherwise hurt by someone within the past year? If so, by whom?: No Do you feel safe in your current relationship?: Yes Is there a partner from a previous relationship who is making you feel unsafe now?: No Are you made to feel afraid or neglected: No Advance Directives: Yes Advance Directives on File: Yes Advance Directives Date on File: 12/10/20 Do you have thoughts of harming others: None Do you have a plan to hurt others: No Plan Nutrition Risks: No Nutritional Risk Meds Allergies Allergy/AdvReac Type Severity Reaction Status Date / Time No Known Drug Allergies Allergy Unknown UNKNOWN Verified 09/17/20 10:23 Active Medications: Current Medications Generic Name Dose Route Start Last Admin Trade Name Freq PRN Reason Stop Dose Admin Acetaminophen 650 mg 12/10/20 15:56 Acetaminophen 325 Mg Tablet PO Q6H PRN Pain, Mild (Pain Scale 1-3) Aspirin 81 mg 12/11/20 09:00 Aspirin Enteric Coated 81 Mg Tablet. PO DAILY [facility] Atorvastatin Calcium 80 mg 12/10/20 21:00 Atorvastatin Calcium 80 Mg Tablet PO BEDTIME [facility] Carvedilol 6.25 mg 12/10/20 21:00 Carvedilol 6.25 Mg Tablet PO BID [facility] Protocol Cilostazol 100 mg 12/10/20 21:00 Cilostazol 100 Mg Tablet PO BID [facility] Clopidogrel Bisulfate 75 mg 12/10/20 21:00 Clopidogrel Bisulfate 75 Mg Tablet PO BEDTIME [facility] Insulin Glargine 30 unit 12/10/20 21:00 Insulin Glargine,Hum.Rec.Anlog 100 Unit/Ml 10 Ml Vial SUBCUT BEDTIME [facility] Insulin Human Lispro 0 unit 12/10/20 21:00 Insulin Lispro 100 Unit/Ml 3 Ml Vial SUBCUT QIDACHS [facility] Protocol Ketorolac Tromethamine 15 mg 12/10/20 11:13 Ketorolac Tromethamine 15 Mg/Ml Vial IVPUSH Q6H PRN Pain, Moderate (Pain Scale 4-6 Lisinopril 40 mg 12/10/20 21:00 Lisinopril 40 Mg Tablet PO BEDTIME [facility] Protocol Morphine Sulfate 2 mg 12/10/20 15:56 Morphine Sulfate 4 Mg/Ml Cartridge IVPUSH Q4H PRN Pain, Severe (Pain Scale 7-10) Ondansetron HCl 4 mg 12/10/20 15:56 Ondansetron Hcl 4 Mg/2 Ml Vial IVPUSH Q8H PRN Nausea and Vomiting Pharmacy Consult 1 each 12/10/20 07:41 Consult Rx Vancomycin Dosing MISCELLANE DAILY PRN Consult order Pharmacy Consult 1 each 12/10/20 13:38 Consult Rx Perform Med Rec MISCELLANE ONCE PRN Consult order Rivaroxaban 10 mg 12/11/20 09:00 Rivaroxaban 10 Mg Tablet PO DAILY [facility] Sodium Chloride 3 ml 12/10/20 16:00 12/10/20 16:45 0.9 % Sodium Chloride Flush 3 Ml Syringe IVFLUSH 3 ml QSHIFT [facility] Administration Home Medications Medication Instructions Recorded Confirmed Last Taken Type aspirin 81 mg PO DAILY 12/10/20 12/10/20 12/09/20 History atorvastatin 80 mg PO BEDTIME 12/10/20 12/10/20 12/09/20 History carvedilol 6.25 mg PO BID 12/10/20 12/10/20 12/09/20 History cilostazol 100 mg PO BID 12/10/20 12/10/20 12/09/20 History clopidogrel 75 mg PO BEDTIME 12/10/20 12/10/20 12/09/20 History insulin glargine [Lantus Solostar 40 unit SUBCUT BEDTIME 12/10/20 12/10/20 12/09/20 History U-100 Insulin] insulin lispro [Humalog KwikPen 12 unit SUBCUT TID PRN 12/10/20 12/10/20 12/09/20 History Insulin] ipratropium-albuterol [Combivent 1 puff INHALATION QID PRN 12/10/20 12/10/20 12/09/20 History Respimat] lisinopril 1 tab PO BEDTIME 12/10/20 12/10/20 12/09/20 History metformin 850 mg PO BID 12/10/20 12/10/20 12/09/20 History pantoprazole 20 mg PO DAILY 12/10/20 12/10/20 12/09/20 History polyvinyl alcohol [Artificial 1 drp OPHTHALMIC (EYE) BID 12/10/20 12/10/20 12/09/20 History Tears (polyvin alc)] Physical Exam Vital Signs and Narrative: Vital Signs: Last Vital Signs Temp 98.6 F 12/10/20 15:57 Pulse 95 12/10/20 15:57 Resp 20 12/10/20 15:57 BP 149/73 H 12/10/20 15:57 Pulse Ox 96 12/10/20 15:57 Body Mass Index 34.2 Const: Other: Constitutional : Alert, oriented, not in distress Neck : Normal inspection, Supple Cardiovascular : RRR, S1 S2, no lower extremity edema Respiratory : Good bilateral air entry, no crackles, wheezes or rhonchi Gastrointestinal: soft, lax, Normal bowel sounds, Non tender Skin : Warm/Dry, base of the scrotum area of induration about 3 cm, heart nonfluctuant with no drainage noted and small area of surrounding cellulitis. Neurological : Alert & oriented x3, No focal deficit Results Labs CBC and Chem 7: 12/10/20 05:02 12/10/20 05:02 Labs: Laboratory Results - last 24 hr 12/10/20 12/10/20 12/10/20 05:02 05:02 05:02 MCV 90.4 MCH 30.6 MCHC 33.9 RDW 13.5 Plt Count 214 MPV 10.3 Immature Gran % (Auto) 0.4 Neut % (Auto) 78.7 H Lymph % (Auto) 10.4 L [place] % (Auto) 9.4 Eos % (Auto) 0.7 Baso % (Auto) 0.4 Lymph # (Auto) 1.9 [place] # (Auto) 1.7 H Eos # (Auto) 0.1 Baso # (Auto) 0.1 Abs Immat Gran (auto) 0.08 H Absolute Neuts (auto) 14.5 H Absolute Nucleated RBC 0.000 Nucleated RBC % (auto) 0.0 Smear Tech's Comments VERIFIED ESR 10 Anion Gap 15 Estim Creat Clear Calc 91.3 Estimated GFR > 60 Random Glucose 223 H Lactic Acid Calcium 9.3 Total Bilirubin 1.7 H AST 12 ALT 21 Alkaline Phosphatase 72 C-Reactive Protein 5.82 H Total Protein 7.2 Albumin 4.1 Lipase 6 L Urine Color Urine Appearance Urine pH Ur Specific [place] Urine Protein Urine Glucose (UA) Urine Ketones Urine Blood Urine Nitrite Ur Leukocyte Esterase Urine RBC Urine WBC Ur Squamous Epith Cells Urine Bacteria COVID-19 ([facility]IE) COVID-19 Clin Com 12/10/20 12/10/20 12/10/20 05:47 06:22 09:43 MCV MCH MCHC RDW Plt Count MPV Immature Gran % (Auto) Neut % (Auto) Lymph % (Auto) [place] % (Auto) Eos % (Auto) Baso % (Auto) Lymph # (Auto) [place] # (Auto) Eos # (Auto) Baso # (Auto) Abs Immat Gran (auto) Absolute Neuts (auto) Absolute Nucleated RBC Nucleated RBC % (auto) Smear Tech's Comments ESR Anion Gap Estim Creat Clear Calc Estimated GFR Random Glucose Lactic Acid 1.4 Calcium Total Bilirubin AST ALT Alkaline Phosphatase C-Reactive Protein Total Protein Albumin Lipase Urine Color YELLOW Urine Appearance CLEAR Urine pH 6.5 Ur Specific [place] 1.010 Urine Protein 1+ H Urine Glucose (UA) 250 H Urine Ketones 5 Urine Blood 1+ H Urine Nitrite NEG Ur Leukocyte Esterase NEG Urine RBC 0-2 Urine WBC 0-2 Ur Squamous Epith Cells NONE Urine Bacteria NONE COVID-19 (EVIE) Negative COVID-19 Clin Com See Note Imaging Radiologist's Impressions: Impressions Abdomen/Pelvis CT 12/10/20 05:22 IMPRESSION: 1. Fat stranding along the perineum which may reflect cellulitis. No soft tissue gas or collection identified. 2. Mild left-sided bladder wall thickening containing tiny amount of calcification. Malignancy is a possibility, and further workup is recommended which may be performed with cystoscopy. 3. Enlarged prostate gland. Assessment and Plan (1) Cellulitis, perineum: Status: Acute A 60 years old male with PMH of diabetes, asthma, HTN who presented to the hospital complaining of pain at the base of his scrotum for the last day. Perineal cellulitis Concern of small abscess in the area CT scan showing fat stranding along the perineum Started broad-spectrum antibiotic Zosyn Surgical evaluation for possible drainage Keep NPO if any procedure will need to be done in the morning Bladder wall thickening next [place] Noticed on CT scan at the left side Reporting urinary symptoms with reported enlarged prostate To do PSA To get urology evaluation Type 2 diabetes SSI Lantus 30 units bedtime next [place] diabetic diet PAD continue aspirin, statin and Plavix HTN Continue lisinopril DVT PPX Xarelto
[2020-12-10 18:19] LABS: Prostate Specific Antigen 5.49 ng/mL (<0.05-4.0)
[2020-12-10] MEDS: lisinopriL 40 MG TABLET PO (20:09)
[2020-12-10] MEDS: Atorvastatin Calcium 80 MG TABLET PO (20:09)
[2020-12-10] MEDS: Clopidogrel Bisulfate 75 MG TABLET PO (20:10)
[2020-12-10] MEDS: cilostazoL 100 MG TABLET PO (20:10)
[2020-12-10] MEDS: carvediloL 6.25 MG TABLET PO (20:10)
[2020-12-10] MEDS: Insulin Lispro 100 UNIT/ML 3 ML VIAL SUBCUT (20:20)
[2020-12-10] MEDS: Insulin Glargine,Hum.rec.anlog 100 UNIT/ML 10 ML VIAL 30 UNIT SUBCUT (20:20)
[2020-12-10 20:27] LABS: Glucose, Whole Blood 302 mg/dL (60-115)
[2020-12-11] VITALS (13 sets, daily range): BP systolic 100–142; BP diastolic 52–68; PULSE 66–86; RESP 17–20; TEMP 36.3–36.8; O2SAT 94–100
[2020-12-11] MEDS: Albuterol/Iprat 2.5/0.5MG 3 ML AMPUL.NEB INHALE ×2 (00:23→20:13)
[2020-12-11] MEDS: Piperacillin Sodium/Tazobactam 3.375 GM in 0.9 % Sodium Chloride 50 ML IV ×4 (05:53→23:59)
[2020-12-11 06:44] LABS: Basophils Percent Auto 0.2 % (0-2); Eosinophils Absolute Auto 0.2 X10*3/uL (0.0-0.4); Eosinophils Percent Auto 0.8 % (0-4); Hematocrit 41.9 % (42-52); Hemoglobin 13.8 g/dl (14.0-18.0); Imm Gran Abs Auto 0.09 X10*3/uL (0.00-0.03); Imm Gran Pct Auto 0.5 % (0.0-0.4); Lymphocytes Absolute Auto 2.3 X10*3/uL (1.2-4.9); Lymphocytes Percent Auto 12.2 % (20-40); MANUAL DIFF FLAG SCAN; Mean Corpuscular HGB Conc 32.9 g/dl (31.0-36.0); Mean Corpuscular Hemoglobin 30.1 pg (27.0-33.0); Mean Corpuscular Volume 91.3 fL (80-98); Monocytes Absolute Auto 1.9 X10*3/uL (0.1-1.2); Monocytes Percent Auto 9.8 % (2-11); Neutrophils Absolute Auto 14.6 X10*3/uL (2.0-8.3); Neutrophils Percent Auto 76.5 % (45-73); Platelet Count 216 X10*3/uL (160-400); Red Blood Count 4.59 X10*6/uL (4.60-5.80); Red Cell Distribution Width 13.3 % (11.0-16.0); SCAN SMEAR FLAG 1; White Blood Count 19.1 X10*3/uL (4.8-10.8)
[2020-12-11 06:54] LABS: Anion Gap 13 (12-20); Blood Urea Nitrogen 18 mg/dL (9-16); Carbon Dioxide 23 mmol/L (22-29); Chloride 99 mmol/L (96-108); Creatinine Clr Calc Pharmacy 85.7; Estimated Glomerular Filt Rate > 60; Glucose Random 157 mg/dL (60-115); Potassium 4.1 mmol/L (3.3-5.1); Sodium 131 mmol/L (135-145)
[2020-12-11 07:25] LABS: SLIDE REVIEW VERIFIED
[2020-12-11 07:53] LABS: Glucose, Whole Blood 174 mg/dL (60-115)
[2020-12-11] MEDS: Insulin Lispro 100 UNIT/ML 3 ML VIAL SUBCUT ×4 (08:27→21:29)
[2020-12-11] MEDS: carvediloL 6.25 MG TABLET PO ×2 (08:28→21:32)
[2020-12-11] MEDS: cilostazoL 100 MG TABLET PO ×2 (08:28→21:28)
[2020-12-11] MEDS: Aspirin Enteric Coated 81 MG TABLET.DR PO (08:29)
[2020-12-11] MEDS: 0.9 % Sodium Chloride Flush 3 ML SYRINGE IVFLUSH ×3 (08:29→21:31)
--- NOTE | 2020-12-11 10:54 | PM.PNGS ---
Subjective Subjective Date of Service: 12/11/20 Interval history: says he feels much better says pain on perineum practically resolved asking to go home Physical Exam Vital Signs: Vital Signs: Last Vital Signs Temp 97.8 F 12/11/20 07:58 Pulse 76 12/11/20 08:28 Resp 18 12/11/20 07:58 BP 100/52 L 12/11/20 08:28 Pulse Ox 100 12/11/20 10:15 Body Mass Index 34.2 Laboratory Results - last 24 hr 12/10/20 12/10/20 12/10/20 05:02 17:15 20:11 WBC RBC Hgb Hct MCV MCH MCHC RDW Plt Count MPV Immature Gran % (A uto) Neut % (Auto) Lymph % (Auto) [place] % (Auto) Eos % (Auto) Baso % (Auto) Lymph # (Auto) [place] # (Auto) Eos # (Auto) Baso # (Auto) Abs Immat Gran (au to) Absolute Neuts (au to) Absolute Nucleated RBC Nucleated RBC % (a uto) Smear Tech's Comme nts Sodium Potassium Chloride Carbon Dioxide Anion Gap BUN Creatinine Estim Creat Clear Calc Estimated GFR POC Glucose 281 H 302 H Random Glucose Calcium Prostate Specific Ag 5.49 H 12/11/20 12/11/20 12/11/20 05:51 05:51 07:37 WBC 19.1 H RBC 4.59 L Hgb 13.8 L Hct 41.9 L MCV 91.3 MCH 30.1 MCHC 32.9 RDW 13.3 Plt Count 216 MPV 11.0 Immature Gran % (A uto) 0.5 H Neut % (Auto) 76.5 H Lymph % (Auto) 12.2 L [place] % (Auto) 9.8 Eos % (Auto) 0.8 Baso % (Auto) 0.2 Lymph # (Auto) 2.3 [place] # (Auto) 1.9 H Eos # (Auto) 0.2 Baso # (Auto) 0.0 Abs Immat Gran (au to) 0.09 H Absolute Neuts (au to) 14.6 H Absolute Nucleated RBC 0.000 Nucleated RBC % (a uto) 0.0 Smear Tech's Comme nts VERIFIED Sodium 131 L Potassium 4.1 Chloride 99 Carbon Dioxide 23 Anion Gap 13 BUN 18 H Creatinine 0.97 Estim Creat Clear Calc 85.7 Estimated GFR > 60 POC Glucose 174 H Random Glucose 157 H Calcium 9.0 Prostate Specific Ag Const: General: comfortable and no acute distress Resp: Effort & Inspection: normal respiratory effort Cardio: Rate: regular rate : Other: perineum with induration, not tender anymore, not fluctuant, no spreading cellulitis, no signs of necrotizing process Progress Note: A&P Assessment and plan (1) Cellulitis, perineum: Status: Acute Assessment and Plan: clinically much improved no tenderness now still with leukocytosis hold off on I and D continue IV abx improving clinically but will reeval tomorrow Fall Risk Details Current Medications: Current Medications Generic Name Dose Route Start Last Admin Trade Name Freq PRN Reason Stop Dose Admin Acetaminophen 650 mg 12/10/20 15:56 Acetaminophen 325 Mg Tablet PO Q6H PRN Pain, Mild (Pain Scale 1-3) Albuterol/Ipratropium 3 ml 12/11/20 00:10 12/11/20 00:23 Albuterol/Iprat 2.5/0.5mg 3 Ml Ampul.Neb INHALE 3 ml RQ4H PRN Administration Shortness of Breath/Wheezing Aspirin 81 mg 12/11/20 09:00 12/11/20 08:29 Aspirin Enteric Coated 81 Mg Tablet. PO 81 mg DAILY [facility] Administration Atorvastatin Calcium 80 mg 12/10/20 21:00 12/10/20 20:09 Atorvastatin Calcium 80 Mg Tablet PO 80 mg BEDTIME [facility] Administration Carvedilol 6.25 mg 12/10/20 21:00 12/11/20 08:28 Carvedilol 6.25 Mg Tablet PO 6.25 mg BID [facility] Administration Protocol Cilostazol 100 mg 12/10/20 21:00 12/11/20 08:28 Cilostazol 100 Mg Tablet PO 100 mg BID [facility] Administration Clopidogrel Bisulfate 75 mg 12/10/20 21:00 12/10/20 20:10 Clopidogrel Bisulfate 75 Mg Tablet PO 75 mg BEDTIME [facility] Administration Piperacillin Sod/Tazobactam 50 mls @ 100 mls/hr 12/10/20 18:00 12/11/20 06:30 Sod 3.375 gm/ Sodium Chloride IV Infused Q6H [facility] Infusion Insulin Glargine 30 unit 12/10/20 21:00 12/10/20 20:20 Insulin Glargine,Hum.Rec.Anlog 100 Unit/Ml 10 Ml Vial SUBCUT 30 unit BEDTIME [facility] Administration Insulin Human Lispro 0 unit 12/10/20 21:00 12/11/20 08:27 Insulin Lispro 100 Unit/Ml 3 Ml Vial SUBCUT 2 unit QIDACHS [facility] Administration Protocol Ketorolac Tromethamine 15 mg 12/10/20 11:13 Ketorolac Tromethamine 15 Mg/Ml Vial IVPUSH Q6H PRN Pain, Moderate (Pain Scale 4-6 Lisinopril 40 mg 12/10/20 21:00 12/10/20 20:09 Lisinopril 40 Mg Tablet PO 40 mg BEDTIME [facility] Administration Protocol Morphine Sulfate 2 mg 12/10/20 15:56 Morphine Sulfate 4 Mg/Ml Cartridge IVPUSH Q4H PRN Pain, Severe (Pain Scale 7-10) Ondansetron HCl 4 mg 12/10/20 15:56 Ondansetron Hcl 4 Mg/2 Ml Vial IVPUSH Q8H PRN Nausea and Vomiting Pharmacy Consult 1 each 12/10/20 07:41 Consult Rx Vancomycin Dosing MISCELLANE DAILY PRN Consult order Pharmacy Consult 1 each 12/10/20 13:38 Consult Rx Perform Med Rec MISCELLANE ONCE PRN Consult order Rivaroxaban 10 mg 12/11/20 14:00 Rivaroxaban 10 Mg Tablet PO DAILY [facility] Sodium Chloride 3 ml 12/10/20 16:00 12/11/20 08:29 0.9 % Sodium Chloride Flush 3 Ml Syringe IVFLUSH 3 ml QSHIFT [facility] Administration Time Spent With Patient Time: Total time spent is greater than 50% in coordination of care (as documented) at patient's floor/unit and/or counseling patient: Time with patient: 15 - 24 minutes Procedures Date of Service Date of Service: 12/11/20
--- NOTE | 2020-12-11 11:22 | HO.PM.IMPN ---
Subjective Subjective Date of Service: 12/11/20 Interval History: significant improvement Cardiovascular Cardiovascular: Reports no additional cardiovascular complaints Gastrointestinal Gastrointestinal: Reports no additional gastrointestinal complaints Physical Exam Vital Signs: Vital Signs: Last Vital Signs Temp 97.8 F 12/11/20 07:58 Pulse 76 12/11/20 08:28 Resp 18 12/11/20 07:58 BP 100/52 L 12/11/20 08:28 Pulse Ox 100 12/11/20 10:15 Body Mass Index 34.2 General: AO X 3, no acute distress Resp: CTA bilateral CVS: S1,S2,RRR GI: soft, non tender, non distended Neuro: motor grossly intact Psych: appropriate affect Other: perineum with induration, not tender anymore, not fluctuant, no spreading cellulitis, no signs of necrotizing process Objective Data Current Medications Generic Name Dose Route Start Last Admin Trade Name Freq PRN Reason Stop Dose Admin Acetaminophen 650 mg 12/10/20 15:56 Acetaminophen 325 Mg Tablet PO Q6H PRN Pain, Mild (Pain Scale 1-3) Albuterol/Ipratropium 3 ml 12/11/20 00:10 12/11/20 00:23 Albuterol/Iprat 2.5/0.5mg 3 Ml Ampul.Neb INHALE 3 ml RQ4H PRN Administration Shortness of Breath/Wheezing Aspirin 81 mg 12/11/20 09:00 12/11/20 08:29 Aspirin Enteric Coated 81 Mg Tablet. PO 81 mg DAILY [facility] Administration Atorvastatin Calcium 80 mg 12/10/20 21:00 12/10/20 20:09 Atorvastatin Calcium 80 Mg Tablet PO 80 mg BEDTIME [facility] Administration Carvedilol 6.25 mg 12/10/20 21:00 12/11/20 08:28 Carvedilol 6.25 Mg Tablet PO 6.25 mg BID [facility] Administration Protocol Cilostazol 100 mg 12/10/20 21:00 12/11/20 08:28 Cilostazol 100 Mg Tablet PO 100 mg BID [facility] Administration Clopidogrel Bisulfate 75 mg 12/10/20 21:00 12/10/20 20:10 Clopidogrel Bisulfate 75 Mg Tablet PO 75 mg BEDTIME [facility] Administration Piperacillin Sod/Tazobactam 50 mls @ 100 mls/hr 12/10/20 18:00 12/11/20 06:30 Sod 3.375 gm/ Sodium Chloride IV Infused Q6H [facility] Infusion Insulin Glargine 30 unit 12/10/20 21:00 12/10/20 20:20 Insulin Glargine,Hum.Rec.Anlog 100 Unit/Ml 10 Ml Vial SUBCUT 30 unit BEDTIME [facility] Administration Insulin Human Lispro 0 unit 12/10/20 21:00 12/11/20 08:27 Insulin Lispro 100 Unit/Ml 3 Ml Vial SUBCUT 2 unit QIDACHS [facility] Administration Protocol Ketorolac Tromethamine 15 mg 12/10/20 11:13 Ketorolac Tromethamine 15 Mg/Ml Vial IVPUSH Q6H PRN Pain, Moderate (Pain Scale 4-6 Lisinopril 40 mg 12/10/20 21:00 12/10/20 20:09 Lisinopril 40 Mg Tablet PO 40 mg BEDTIME [facility] Administration Protocol Morphine Sulfate 2 mg 12/10/20 15:56 Morphine Sulfate 4 Mg/Ml Cartridge IVPUSH Q4H PRN Pain, Severe (Pain Scale 7-10) Ondansetron HCl 4 mg 12/10/20 15:56 Ondansetron Hcl 4 Mg/2 Ml Vial IVPUSH Q8H PRN Nausea and Vomiting Pharmacy Consult 1 each 12/10/20 07:41 Consult Rx Vancomycin Dosing MISCELLANE DAILY PRN Consult order Pharmacy Consult 1 each 12/10/20 13:38 Consult Rx Perform Med Rec MISCELLANE ONCE PRN Consult order Rivaroxaban 10 mg 12/11/20 14:00 Rivaroxaban 10 Mg Tablet PO DAILY [facility] Sodium Chloride 3 ml 12/10/20 16:00 12/11/20 08:29 0.9 % Sodium Chloride Flush 3 Ml Syringe IVFLUSH 3 ml QSHIFT [facility] Administration Labs CBC & Chem 7: 12/11/20 05:51 12/11/20 05:51 Microbiology Microbiology Results: Microbiology 12/10/20 05:47 Blood - Venous Blood Culture - Preliminary No growth after 24 hours. 12/10/20 05:47 Blood - Venous Blood Culture - Preliminary No growth after 24 hours. Assessment and Plan (1) Cellulitis, perineum: Status: Acute (2) Diabetes: Status: Acute Assessment and Plan: 60M presented with scrotal pain pernieal cellulitis improved with zosyn, surgery appreciated no need for I and D at this time WBC slightly increased today, would like to see downtrending prior to deescalating antibiotics due to high risk location of infection insulin PVD dapl, statin htn lisinopril
[2020-12-11 11:46] LABS: Glucose, Whole Blood 380 mg/dL (60-115)
[2020-12-11] MEDS: Rivaroxaban 10 MG TABLET PO (14:09)
--- NOTE | 2020-12-11 15:13 | MHC.CM.PN ---
PATIENT LIVES ALONE. HE RELIES ON A CANE FOR AMBULATION ASSIST. HE IS HOPING FOR A PRESCRIPTION FOR A WALKER. RN VISITS ON FRIDAYS. PATIENT IS UNABLE TO RECALL THE NAME OF THE AGENCY BUT WILL LET THIS MANAGER ENVIRONMENTAL KNOW IF HE DOES REMEMBER. 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 PCP VERIFIED. PATIENT STATES THAT HIS SON WILL TRANSPORT UPON DISCHARGE
[2020-12-11 16:09] LABS: Glucose, Whole Blood 276 mg/dL (60-115)
[2020-12-11 20:13] LABS: Glucose, Whole Blood 173 mg/dL (60-115)
[2020-12-11] MEDS: Clopidogrel Bisulfate 75 MG TABLET PO (21:28)
[2020-12-11] MEDS: Atorvastatin Calcium 80 MG TABLET PO (21:28)
[2020-12-11] MEDS: Insulin Glargine,Hum.rec.anlog 100 UNIT/ML 10 ML VIAL 30 UNIT SUBCUT (21:29)
[2020-12-12] VITALS (11 sets, daily range): BP systolic 102–142; BP diastolic 53–62; PULSE 66–85; RESP 12–20; TEMP 36.1–36.8; O2SAT 96–99
[2020-12-12] MEDS: Piperacillin Sodium/Tazobactam 3.375 GM in 0.9 % Sodium Chloride 50 ML IV ×4 (06:19→23:36)
[2020-12-12 06:53] LABS: Hematocrit 42.6 % (42-52); Hemoglobin 14.3 g/dl (14.0-18.0); Mean Corpuscular HGB Conc 33.6 g/dl (31.0-36.0); Mean Corpuscular Hemoglobin 30.4 pg (27.0-33.0); Mean Corpuscular Volume 90.6 fL (80-98); Platelet Count 231 X10*3/uL (160-400); Red Cell Distribution Width 13.1 % (11.0-16.0); White Blood Count 16.3 X10*3/uL (4.8-10.8)
[2020-12-12 07:13] LABS: Anion Gap 12 (12-20); Blood Urea Nitrogen 19 mg/dL (9-16); Calcium 8.9 mg/dL (8.4-10.2); Carbon Dioxide 24 mmol/L (22-29); Chloride 100 mmol/L (96-108); Creatinine Clr Calc Pharmacy 84.8; Estimated Glomerular Filt Rate > 60; Glucose Fasting 157 mg/dL (60-99); Potassium 4.3 mmol/L (3.3-5.1); Sodium 132 mmol/L (135-145)
[2020-12-12 07:33] LABS: Glucose, Whole Blood 160 mg/dL (60-115)
[2020-12-12] MEDS: Rivaroxaban 10 MG TABLET PO (07:53)
[2020-12-12] MEDS: cilostazoL 100 MG TABLET PO ×2 (07:53→21:02)
[2020-12-12] MEDS: Aspirin Enteric Coated 81 MG TABLET.DR PO (07:53)
[2020-12-12] MEDS: carvediloL 6.25 MG TABLET PO ×2 (07:53→21:02)
[2020-12-12] MEDS: Insulin Lispro 100 UNIT/ML 3 ML VIAL SUBCUT ×4 (07:53→21:01)
[2020-12-12] MEDS: 0.9 % Sodium Chloride Flush 3 ML SYRINGE IVFLUSH ×3 (07:53→21:03)
[2020-12-12] MEDS: Lidocaine HCl 1 % 20 ML VIAL SUBCUT (07:54)
--- NOTE | 2020-12-12 08:31 | P.PNGS_ITS ---
Subjective Subjective Date of Service: 12/12/20 Interval history: Says he feels well Denies significant pain Wants to go home No fever Physical Exam Vital Signs: Vital Signs: Last Vital Signs Temp 97.0 F 12/12/20 07:26 Pulse 79 12/12/20 07:53 Resp 18 12/12/20 07:26 BP 102/62 12/12/20 07:53 Pulse Ox 99 12/12/20 07:26 Body Mass Index 34.2 Laboratory Results - last 24 hr 12/11/20 12/11/20 12/11/20 11:18 16:06 20:09 WBC RBC Hgb Hct MCV MCH MCHC RDW Plt Count MPV Absolute Nucleated RBC Nucleated RBC % (a uto) Sodium Potassium Chloride Carbon Dioxide Anion Gap BUN Creatinine Estim Creat Clear Calc Estimated GFR POC Glucose 380 H* 276 H 173 H Fasting Glucose Calcium 12/12/20 12/12/20 12/12/20 06:08 06:08 07:24 WBC 16.3 H RBC 4.70 Hgb 14.3 Hct 42.6 MCV 90.6 MCH 30.4 MCHC 33.6 RDW 13.1 Plt Count 231 MPV 11.0 Absolute Nucleated RBC 0.000 Nucleated RBC % (a uto) 0.0 Sodium 132 L Potassium 4.3 Chloride 100 Carbon Dioxide 24 Anion Gap 12 BUN 19 H Creatinine 0.98 Estim Creat Clear Calc 84.8 Estimated GFR > 60 POC Glucose 160 H Fasting Glucose 157 H Calcium 8.9 Const: General: comfortable and no acute distress Resp: Effort & Inspection: normal respiratory effort Cardio: Rate: regular rate GI: Palpation (GI): Soft to palpation and nontender : Other: Perineal area - induration, about 3 cm in diameter, with central fluctuance, no spreading cellulitis; small open wound on the right perianal area- previous I and D site from the ER Progress Note: A&P Assessment and plan (1) Cellulitis, perineum: Status: Acute Assessment and Plan: His white count has improved He denies any pain Exam however shows central fluctuance in the area of induration I told him that it would be best to do an I and D under local anesthesia I explained to him the technique of this procedure as well as the risks, benefits, and alternatives. He had given verbal consent. He was therefore placed in frogleg position to expose the perineum. The limb was lifted up. The of the induration was prepped and draped. Lidocaine 1% was used for local anesthesia. I made a generous cruciate incision on the area of the induration seeing a blade 11. This was carried down through the full- thickness of skin to enter a cavity. Pus was in. I bluntly probed the with a Q-tip. Cultures were taken as well. I applied a light packing the corner of a gauze. Dressings were placed. He tolerated procedure well. There were no complications. He will await for culture results. I told him that I would recommend keeping him at least for another day for IV antibiotics as he is a diabetic. Fall Risk Details Current Medications: Current Medications Generic Name Dose Route Start Last Admin Trade Name Freq PRN Reason Stop Dose Admin Acetaminophen 650 mg 12/10/20 15:56 Acetaminophen 325 Mg Tablet PO Q6H PRN Pain, Mild (Pain Scale 1-3) Albuterol/Ipratropium 3 ml 12/11/20 00:10 12/11/20 20:13 Albuterol/Iprat 2.5/0.5mg 3 Ml Ampul.Neb INHALE 3 ml RQ4H PRN Administration Shortness of Breath/Wheezing Aspirin 81 mg 12/11/20 09:00 12/12/20 07:53 Aspirin Enteric Coated 81 Mg Tablet. PO 81 mg DAILY KARI Administration Atorvastatin Calcium 80 mg 12/10/20 21:00 12/11/20 21:28 Atorvastatin Calcium 80 Mg Tablet PO 80 mg BEDTIME KARI Administration Carvedilol 6.25 mg 12/10/20 21:00 12/12/20 07:53 Carvedilol 6.25 Mg Tablet PO 6.25 mg BID KARI Administration Protocol Cilostazol 100 mg 12/10/20 21:00 12/12/20 07:53 Cilostazol 100 Mg Tablet PO 100 mg BID KARI Administration Clopidogrel Bisulfate 75 mg 12/10/20 21:00 12/11/20 21:28 Clopidogrel Bisulfate 75 Mg Tablet PO 75 mg BEDTIME KARI Administration Piperacillin Sod/Tazobactam 50 mls @ 100 mls/hr 12/10/20 18:00 12/12/20 07:09 Sod 3.375 gm/ Sodium Chloride IV Infused Q6H KARI Infusion Insulin Glargine 30 unit 12/10/20 21:00 12/11/20 21:29 Insulin Glargine,Hum.Rec.Anlog 100 Unit/Ml 10 Ml Vial SUBCUT 30 unit BEDTIME KARI Administration Insulin Human Lispro 0 unit 12/10/20 21:00 12/12/20 07:53 Insulin Lispro 100 Unit/Ml 3 Ml Vial SUBCUT 2 unit QIDACHS [facility] Administration Protocol Ketorolac Tromethamine 15 mg 12/10/20 11:13 Ketorolac Tromethamine 15 Mg/Ml Vial IVPUSH Q6H PRN Pain, Moderate (Pain Scale 4-6 Lisinopril 40 mg 12/10/20 21:00 12/11/20 21:39 Lisinopril 40 Mg Tablet PO Not Given BEDTIME [facility] Protocol Morphine Sulfate 2 mg 12/10/20 15:56 Morphine Sulfate 4 Mg/Ml Cartridge IVPUSH Q4H PRN Pain, Severe (Pain Scale 7-10) Ondansetron HCl 4 mg 12/10/20 15:56 Ondansetron Hcl 4 Mg/2 Ml Vial IVPUSH Q8H PRN Nausea and Vomiting Pharmacy Consult 1 each 12/10/20 07:41 Consult Rx Vancomycin Dosing MISCELLANE DAILY PRN Consult order Pharmacy Consult 1 each 12/10/20 13:38 Consult Rx Perform Med Rec MISCELLANE ONCE PRN Consult order Rivaroxaban 10 mg 12/11/20 14:00 12/12/20 07:53 Rivaroxaban 10 Mg Tablet PO 10 mg DAILY KARI Administration Sodium Chloride 3 ml 12/10/20 16:00 12/12/20 07:53 0.9 % Sodium Chloride Flush 3 Ml Syringe IVFLUSH 3 ml QSHIFT [facility] Administration Time Spent With Patient Time: Total time spent is greater than 50% in coordination of care (as documented) at patient's floor/unit and/or counseling patient: Time with patient: 25 - 35 minutes Procedures Date of Service Date of Service: 12/12/20
--- NOTE | 2020-12-12 09:28 | P.PNIM_ITS ---
Subjective Subjective Date of Service: 12/12/20 Interval History: pain present but improved Cardiovascular Cardiovascular: Reports no additional cardiovascular complaints Gastrointestinal Gastrointestinal: Reports no additional gastrointestinal complaints Physical Exam Vital Signs: Vital Signs: Last Vital Signs Temp 97.0 F 12/12/20 07:26 Pulse 79 12/12/20 07:53 Resp 18 12/12/20 07:26 BP 102/62 12/12/20 07:53 Pulse Ox 99 12/12/20 07:26 Body Mass Index 34.2 Const General: comfortable and no acute distress Resp Effort & Inspection: normal respiratory effort Cardio Rate: regular rate GI Palpation (GI): Soft to palpation and nontender Other: Perineal area - induration, about 3 cm in diameter, with central fluctuance, no spreading cellulitis; small open wound on the right perianal area- previous I and D site from the ER Objective Data Current Medications Generic Name Dose Route Start Last Admin Trade Name Freq PRN Reason Stop Dose Admin Acetaminophen 650 mg 12/10/20 15:56 Acetaminophen 325 Mg Tablet PO Q6H PRN Pain, Mild (Pain Scale 1-3) Albuterol/Ipratropium 3 ml 12/11/20 00:10 12/11/20 20:13 Albuterol/Iprat 2.5/0.5mg 3 Ml Ampul.Neb INHALE 3 ml RQ4H PRN Administration Shortness of Breath/Wheezing Aspirin 81 mg 12/11/20 09:00 12/12/20 07:53 Aspirin Enteric Coated 81 Mg Tablet. PO 81 mg DAILY KARI Administration Atorvastatin Calcium 80 mg 12/10/20 21:00 12/11/20 21:28 Atorvastatin Calcium 80 Mg Tablet PO 80 mg BEDTIME KARI Administration Carvedilol 6.25 mg 12/10/20 21:00 12/12/20 07:53 Carvedilol 6.25 Mg Tablet PO 6.25 mg BID KARI Administration Protocol Cilostazol 100 mg 12/10/20 21:00 12/12/20 07:53 Cilostazol 100 Mg Tablet PO 100 mg BID KARI Administration Clopidogrel Bisulfate 75 mg 12/10/20 21:00 12/11/20 21:28 Clopidogrel Bisulfate 75 Mg Tablet PO 75 mg BEDTIME KARI Administration Piperacillin Sod/Tazobactam 50 mls @ 100 mls/hr 12/10/20 18:00 12/12/20 07:09 Sod 3.375 gm/ Sodium Chloride IV Infused Q6H [facility] Infusion Insulin Glargine 30 unit 12/10/20 21:00 12/11/20 21:29 Insulin Glargine,Hum.Rec.Anlog 100 Unit/Ml 10 Ml Vial SUBCUT 30 unit BEDTIME [facility] Administration Insulin Human Lispro 0 unit 12/10/20 21:00 12/12/20 07:53 Insulin Lispro 100 Unit/Ml 3 Ml Vial SUBCUT 2 unit QIDACHS [facility] Administration Protocol Ketorolac Tromethamine 15 mg 12/10/20 11:13 Ketorolac Tromethamine 15 Mg/Ml Vial IVPUSH Q6H PRN Pain, Moderate (Pain Scale 4-6 Lisinopril 40 mg 12/10/20 21:00 12/11/20 21:39 Lisinopril 40 Mg Tablet PO Not Given BEDTIME [facility] Protocol Morphine Sulfate 2 mg 12/10/20 15:56 Morphine Sulfate 4 Mg/Ml Cartridge IVPUSH Q4H PRN Pain, Severe (Pain Scale 7-10) Ondansetron HCl 4 mg 12/10/20 15:56 Ondansetron Hcl 4 Mg/2 Ml Vial IVPUSH Q8H PRN Nausea and Vomiting Pharmacy Consult 1 each 12/10/20 07:41 Consult Rx Vancomycin Dosing MISCELLANE DAILY PRN Consult order Pharmacy Consult 1 each 12/10/20 13:38 Consult Rx Perform Med Rec MISCELLANE ONCE PRN Consult order Rivaroxaban 10 mg 12/11/20 14:00 12/12/20 07:53 Rivaroxaban 10 Mg Tablet PO 10 mg DAILY [facility] Administration Sodium Chloride 3 ml 12/10/20 16:00 12/12/20 07:53 0.9 % Sodium Chloride Flush 3 Ml Syringe IVFLUSH 3 ml QSHIFT [facility] Administration Labs CBC & Chem 7: 12/12/20 06:08 12/12/20 06:08 Microbiology Microbiology Results: Microbiology 12/10/20 05:47 Blood - Venous Blood Culture - Preliminary No growth after 48 hours. 12/10/20 05:47 Blood - Venous Blood Culture - Preliminary No growth after 48 hours. Assessment and Plan (1) Cellulitis, perineum: Status: Acute (2) Diabetes: Status: Acute Assessment and Plan: 60M presented with scrotal pain pernieal cellulitis underwent I and D this morning will continue IV zosyn today, and if improved will consider transition to oral tomorrow follow up cultures MD insulin PVD dapl, statin htn lisinopril
[2020-12-12] MEDS: Morphine Sulfate 4 MG/ML CARTRIDGE 2 MG IVPUSH (09:34)
[2020-12-12 11:30] LABS: Glucose, Whole Blood 240 mg/dL (60-115)
--- NOTE | 2020-12-12 13:10 | PC.NURSE ---
Patient is low fall risk, patient was found entering other patient rooms, attempts to redirect patient unsuccessful. Patient approved of tellesitter monitoring. Telesitter monitor placed in patient room. Will continue tto monitor patient.
[2020-12-12 16:21] LABS: Glucose, Whole Blood 224 mg/dL (60-115)
[2020-12-12 20:17] LABS: Glucose, Whole Blood 232 mg/dL (60-115)
[2020-12-12] MEDS: Insulin Glargine,Hum.rec.anlog 100 UNIT/ML 10 ML VIAL 30 UNIT SUBCUT (21:02)
[2020-12-12] MEDS: Clopidogrel Bisulfate 75 MG TABLET PO (21:02)
[2020-12-12] MEDS: Atorvastatin Calcium 80 MG TABLET PO (21:02)
[2020-12-12] MEDS: Albuterol/Iprat 2.5/0.5MG 3 ML AMPUL.NEB INHALE (22:35)
[2020-12-13] MEDS: Piperacillin Sodium/Tazobactam 3.375 GM in 0.9 % Sodium Chloride 50 ML IV (06:20)
[2020-12-13 07:05] LABS: Hemoglobin 14.3 g/dl (14.0-18.0); Mean Corpuscular HGB Conc 33.3 g/dl (31.0-36.0); Mean Corpuscular Hemoglobin 30.4 pg (27.0-33.0); Mean Corpuscular Volume 91.3 fL (80-98); Mean Platelet Volume 10.9 fL (9.4-12.4); Platelet Count 250 X10*3/uL (160-400); Red Blood Count 4.71 X10*6/uL (4.60-5.80); Red Cell Distribution Width 13.2 % (11.0-16.0); White Blood Count 11.7 X10*3/uL (4.8-10.8)
[2020-12-13 07:19] LABS: Anion Gap 12 (12-20); Blood Urea Nitrogen 20 mg/dL (9-16); Calcium 8.5 mg/dL (8.4-10.2); Carbon Dioxide 25 mmol/L (22-29); Chloride 102 mmol/L (96-108); Creatinine Clr Calc Pharmacy 79.9; Estimated Glomerular Filt Rate > 60; Glucose Fasting 194 mg/dL (60-99); Potassium 4.8 mmol/L (3.3-5.1); Sodium 134 mmol/L (135-145)
[2020-12-13 07:27] LABS: Glucose, Whole Blood 190 mg/dL (60-115)
[2020-12-13 07:33] VITALS: BP 102/55; PULSE 68; RESP 20; TEMP 35.9; O2SAT 100
[2020-12-13] MEDS: cilostazoL 100 MG TABLET PO (07:38)
[2020-12-13] MEDS: Rivaroxaban 10 MG TABLET PO (07:38)
[2020-12-13] MEDS: Aspirin Enteric Coated 81 MG TABLET.DR PO (07:38)
[2020-12-13] MEDS: Insulin Lispro 100 UNIT/ML 3 ML VIAL SUBCUT (07:38)
[2020-12-13 07:39] VITALS: BP 102/55; PULSE 68
[2020-12-13] MEDS: carvediloL 6.25 MG TABLET PO (07:39)
--- NOTE | 2020-12-13 08:37 | P.DS_ITS ---
DS: Providers Provider Date of Service: 12/13/20 Date of admission: 12/10/20 12:53 Primary care physician: Loli Augustin MD Consults: 12/10/20 15:56 Consult to Urology Routine Consulting Provider: Yo Baldwin Reason for consultation: Scrotal lump, abnormal CT bladder for your eval 12/10/20 16:48 Consult to General Surgery Routine Consulting Provider: Richard Johnson Reason for consultation: scrotum cellulits DS: Diagnosis Discharge Diagnosis (1) Cellulitis, perineum: Status: Acute (2) Diabetes: Status: Acute (3) PAD (peripheral artery disease): Status: Acute Problem details: 01/24/2020 plasty left peroneal, stent left SFA, plasty left common iliac DS: Medications Discharge Medications Home Medications: Home Medications Medication Instructions Recorded Confirmed Combivent Respimat 1 puff INHALATION QID PRN 12/10/20 12/10/20 Lantus Solostar U-100 Insulin 40 unit SUBCUT BEDTIME 12/10/20 12/10/20 aspirin 81 mg PO DAILY 12/10/20 12/10/20 atorvastatin 80 mg PO BEDTIME 12/10/20 12/10/20 carvedilol 6.25 mg PO BID 12/10/20 12/10/20 cilostazol 100 mg PO BID 12/10/20 12/10/20 clopidogrel 75 mg PO BEDTIME 12/10/20 12/10/20 insulin lispro [Humalog KwikPen 12 unit SUBCUT TID PRN 12/10/20 12/10/20 Insulin] lisinopril 1 tab PO BEDTIME 12/10/20 12/10/20 metformin 850 mg PO BID 12/10/20 12/10/20 pantoprazole 20 mg PO DAILY 12/10/20 12/10/20 polyvinyl alcohol [Artificial 1 drp OPHTHALMIC (EYE) BID 12/10/20 12/10/20 Tears (polyvin alc)] Previous Rx's Medication Instructions Recorded amoxicillin-pot clavulanate 1 tab PO Q12H #14 tab 12/13/20 [Augmentin] DS: Summary Hospital Course Hospital Course: Patient was admitted for perineal cellulitis with small abscess. He was given IV Zosyn and had significant improvement in swelling and erythema and pain. Patient underwent I and D which grew Staph aureus, sensitivities still pending, however, patient is doing much better Zosyn alone, therefore will discharge on 7 more days of Augmentin. Culture should be followed up and antibiotics adjusted as necessary. Time Spent with Patient Time attestation: Total time spent providing and/or coordinating discharge services: Discharge coordination time: Greater than 30 minutes Quality: Stroke Does the patient have a stroke diagnosis?: No Physical Exam 2 Vital Signs: Vital Signs: Last Vital Signs Temp 96.7 F L 12/13/20 07:33 Pulse 68 12/13/20 07:39 Resp 20 12/13/20 07:33 BP 102/55 L 12/13/20 07:39 Pulse Ox 100 12/13/20 07:33 Body Mass Index 34.2 General: AO X 3, no acute distress Resp: CTA bilateral CVS: S1,S2,RRR GI: soft, non tender, non distended Neuro: motor grossly intact Psych: appropriate affect DS: Data Data Completed and Pending Labs on day of discharge: Laboratory Results - last 24 hr 12/12/20 12/12/20 12/12/20 11:09 16:18 20:13 WBC RBC Hgb Hct MCV MCH MCHC RDW Plt Count MPV Absolute Nucleated RBC Nucleated RBC % (auto) Sodium Potassium Chloride Carbon Dioxide Anion Gap BUN Creatinine Estim Creat Clear Calc Estimated GFR POC Glucose 240 H 224 H 232 H Fasting Glucose Calcium 12/13/20 12/13/20 12/13/20 06:06 06:06 07:18 WBC 11.7 H RBC 4.71 Hgb 14.3 Hct 43.0 MCV 91.3 MCH 30.4 MCHC 33.3 RDW 13.2 Plt Count 250 MPV 10.9 Absolute Nucleated RBC 0.000 Nucleated RBC % (auto) 0.0 Sodium 134 L Potassium 4.8 Chloride 102 Carbon Dioxide 25 Anion Gap 12 BUN 20 H Creatinine 1.04 Estim Creat Clear Calc 79.9 Estimated GFR > 60 POC Glucose 190 H Fasting Glucose 194 H Calcium 8.5 Preliminary micro results at discharge 12/12/20 Unknown Routine Culture - Preliminary Perineal Fluid Staphylococcus aureus Anaerobic Culture - Preliminary Culture in progress. 12/10/20 05:47 Blood Culture - Preliminary Blood - Venous No growth after 48 hours. 12/10/20 05:47 Blood Culture - Preliminary Blood - Venous No growth after 48 hours. Discharge Plan Discharge Patient Disposition: Home, Self-Care Discharge Diagnosis: cellulitis Referrals: Loli Augustin MD [Primary Care Provider] - 1 Week Discharge Medications: New amoxicillin-pot clavulanate [Augmentin] 875-125 mg tablet 1 tab PO Q12H Qty: 14 RF: 0 Continued polyvinyl alcohol [Artificial Tears (polyvin alc)] 1.4 % drops 1 drp ophthalmic (eye) BID RF: 0 metformin 850 mg tablet 850 mg PO BID RF: 0 Combivent Respimat 20-100 mcg/actuation mist 1 puff INHALATION QID PRN (Reason: Wheezing) RF: 0 cilostazol 100 mg tablet 100 mg PO BID RF: 0 atorvastatin 80 mg tablet 80 mg PO BEDTIME RF: 0 carvedilol 6.25 mg tablet 6.25 mg PO BID RF: 0 clopidogrel 75 mg tablet 75 mg PO BEDTIME RF: 0 aspirin 81 mg tablet,delayed release (DR/EC) 81 mg PO DAILY RF: 0 pantoprazole 20 mg tablet,delayed release (DR/EC) 20 mg PO DAILY RF: 0 lisinopril 40 mg tablet 1 tab PO BEDTIME RF: 0 insulin lispro [Humalog KwikPen Insulin] 100 unit/mL insulin pen 12 unit subcut TID PRN (Reason: Hypoglycemia) RF: 0 Lantus Solostar U-100 Insulin 100 unit/mL (3 mL) insulin pen 40 unit subcut BEDTIME RF: 0 Discharge Orders: Discharge Order (Routine); Ordered 12/13/20 Ordered By: Holden Mojica Diet: advance to usual diet Activity on Discharge: As tolerated Stand Alone Forms: Patient Portal Discharge page Care Plan Goals: recovery Health Concerns: cellulitis Plan of Treatment: one more week augmentin Assessment: see above
--- NOTE | 2020-12-13 08:38 | MHC.CM.PN ---
PATIENT IS DISCHARGED HOME WITH NO NEED FOR SERVICES. FAMILY TO TRANSPORT. RN AWARE OF PLAN.
--- NOTE | 2020-12-13 12:12 | PM.PNGS ---
Subjective Subjective Date of Service: 12/13/20 Interval history: Continues to feel better Denies any pain Physical Exam Vital Signs: Vital Signs: Last Vital Signs Temp 96.7 F L 12/13/20 07:33 Pulse 68 12/13/20 07:39 Resp 20 12/13/20 07:33 BP 102/55 L 12/13/20 07:39 Pulse Ox 100 12/13/20 07:33 Body Mass Index 34.2 Laboratory Results - last 24 hr 12/12/20 12/12/20 12/13/20 16:18 20:13 06:06 WBC 11.7 H RBC 4.71 Hgb 14.3 Hct 43.0 MCV 91.3 MCH 30.4 MCHC 33.3 RDW 13.2 Plt Count 250 MPV 10.9 Absolute Nucleated RBC 0.000 Nucleated RBC % (a uto) 0.0 Sodium Potassium Chloride Carbon Dioxide Anion Gap BUN Creatinine Estim Creat Clear Calc Estimated GFR POC Glucose 224 H 232 H Fasting Glucose Calcium 12/13/20 12/13/20 06:06 07:18 WBC RBC Hgb Hct MCV MCH MCHC RDW Plt Count MPV Absolute Nucleated RBC Nucleated RBC % (a uto) Sodium 134 L Potassium 4.8 Chloride 102 Carbon Dioxide 25 Anion Gap 12 BUN 20 H Creatinine 1.04 Estim Creat Clear Calc 79.9 Estimated GFR > 60 POC Glucose 190 H Fasting Glucose 194 H Calcium 8.5 Const: General: comfortable and no acute distress Resp: Effort & Inspection: normal respiratory effort Cardio: Rhythm: regular rhythm GI: Palpation (GI): Soft to palpation and nontender : Other: I&D site on perineum patent, scanty discharge, much less induration, no residual fluctuance Progress Note: A&P Assessment and plan (1) Abscess, perineum: Status: Acute Assessment and Plan: I and D done yesterday Much improved White count now near normal Instructed patient on wound care P.o. antibiotics Okay to follow-up in the office Time Spent With Patient Time: Total time spent is greater than 50% in coordination of care (as documented) at patient's floor/unit and/or counseling patient: Time with patient: 15 - 24 minutes Procedures Date of Service Date of Service: 12/13/20
--- NOTE | 2020-12-16 10:02 | PM.EVENT ---
Event Note Date of Service: 12/16/20 Event Note: culture showing MRSA and bacteroidies, called patient, he is doing well, will add one week of doxy
== END 2020-12-13 11:48 | disposition home or self-care (01) | DRG 383 ==
LOC: HO.ED 08:30 → HO.EDOVER 12:54 → HO.S3 15:08
PROVIDERS: Admitting Provider Student in an Organized Health Care Education/Training Program; Emergency Provider Student in an Organized Health Care Education/Training Program; PCP Family Medicine; Visit Provider Internal Medicine
DX: L02.215 Cutaneous abscess of perineum (principal); E11.51 Type 2 diabetes mellitus with diabetic peripheral angiopathy without gangrene; L03.315 Cellulitis of perineum; I10 Essential (primary) hypertension; Z20.822 Contact with and (suspected) exposure to COVID-19; Z79.4 Long term (current) use of insulin; Z79.02 Long term (current) use of antithrombotics/antiplatelets; Z79.82 Long term (current) use of aspirin; Z79.899 Other long term (current) drug therapy; B96.6 Bacteroides fragilis [B. fragilis] as the cause of diseases classified elsewhere; B95.62 Methicillin resistant Staphylococcus aureus infection as the cause of diseases classified elsewhere
CPT/HCPCS: 36415; 74177; 80048; 80053; 81001; 82947; 83605; 83690; 84153; 85025; 85027; 85652; 86140; 87040; 87071; 87073; 87076; 87077; 87147; 87185; 87186; 87205; 87635; 93005; 94640; 99218; 99285; J1885; J2270; J2405; J2543; J3370; Q9967

== ENCOUNTER 2021-01-25 15:18 | Emergency (ER) | payer MEDICAID, SELFPAY ==
--- NOTE | 2021-01-25 | ECG_ITS ---
Test Reason : CHEST PAIN Blood Pressure : / mmHG Vent. Rate : 079 BPM Atrial Rate : 079 BPM P-R Int : 168 ms QRS Dur : 120 ms QT Int : 416 ms P-R-T Axes : 067 -29 108 degrees QTc Int : 477 ms Sinus rhythm with Premature atrial complexes in a pattern of bigeminy Possible Left atrial enlargement Left ventricular hypertrophy with QRS widening Inferior infarct (cited on or before 10-DEC-2020) T wave abnormality, consider lateral ischemia Abnormal ECG When compared with ECG of 10-DEC-2020 08:29, Premature atrial complexes are now Present Referred By: Generic ED Physician Electronically Signed By:GLEN JAIN MD
--- NOTE | ~2021-01-25 | CT_ITS ---
EXAMINATION: CT ABDOMEN AND PELVIS WITHOUT CONTRAST CLINICAL INFORMATION: Abdominal pain and distention COMPARISON: CT abdomen pelvis 12/10/2020 TECHNIQUE: Multidetector volumetric imaging was performed from the superior aspect of the liver through the pubic symphysis. Sagittal and coronal reformatted images were obtained on the technologist's workstation. This CT examination was performed using dose optimization techniques as appropriate, variously including the following: *Automated exposure control *Adjustment of mA and/or kV according to patient size (this includes techniques or standardized protocols for targeted exams where dose is matched to indication/reason for exam; i.e. extremities or head) *Use of iterative reconstruction technique DLP: 737 mGy-cm FINDINGS: LUNG BASES: The heart is enlarged. No gross infiltrates, lung masses or pleural effusions are seen. LIVER, GALLBLADDER, AND BILIARY TREE: The liver is normal in size, shape, and attenuation. No focal hepatic lesion or biliary ductal dilatation is present. The gallbladder is unremarkable with no evidence of radiopaque gallstones, gallbladder wall thickening, or obvious pericholecystic inflammatory changes. No ascites is present. PANCREAS: Unremarkable. SPLEEN: Unremarkable. ADRENAL GLANDS: Unremarkable. KIDNEYS AND URETERS: The kidneys are normal in size, shape, and attenuation. A 1.3 cm hyperattenuating cyst present in the left kidney with an additional smaller 8 mm cyst as well. Benign-appearing right renal cysts are present. No worrisome renal masses are seen. No hydronephrosis, hydroureter, or calculi seen. No perinephric stranding. BLADDER: A portion of the bladder herniates into the left inguinal hernia. Very subtle calcification and bladder wall thickening is again seen along the left wall of the bladder. GASTROINTESTINAL TRACT: The small and large bowel are unremarkable. The appendix is unremarkable. ABDOMINAL WALL: Bilateral inguinal hernias are seen containing fat. A portion of the dome of the bladder extends into the left inguinal hernia. LYMPH NODES: No retroperitoneal lymphadenopathy. VASCULAR: Severe aortoiliac atherosclerotic disease is present with bilateral iliac stents in place. PELVIC VISCERA: Again seen is BPH with prostate measuring 5.4 x 5.2 x 7 cm. There is some asymmetry of the seminal vesicles which is larger on the left OSSEOUS STRUCTURES: Cystic changes are again seen supra-acetabular regions bilaterally, left greater than right. CT/CT abdomen pelvis wo con IMPRESSION: A cause for abdominal pain and distention is not found with certainty. A number of incidental findings are again demonstrated includin. Cardiomegaly 2. Bilateral renal cysts 3. Bilateral fat-containing inguinal hernias. The hernia on the left contains a portion of the dome of the bladder. 4. The left bladder wall contains some subtle calcification and left-sided thickening which could be a sign of malignancy and cystoscopy is recommended for further evaluation. 5. BPH
--- NOTE | ~2021-01-25 | XR_ITS ---
EXAMINATION: XR CHEST CLINICAL INFORMATION: Chest pain. Shortness of breath COMPARISON: October 17, 2019 TECHNIQUE: 2 views of the chest were obtained. FINDINGS: The pericardial pericardial silhouette is mildly enlarged. No evidence of pulmonary edema. No pneumothorax or pleural effusion. XR/XR chest 2V IMPRESSION: No acute disease.
[2021-01-25 15:33] VITALS: BP 143/52; PULSE 78; RESP 22; TEMP 35.6; O2SAT 97; BMI 34.7
--- NOTE | 2021-01-25 16:03 | ED_ITS ---
HPI - Chest Pain General Chief Complaint: Chest Pain Stated Complaint: abdominal pain Time Seen by Provider: 01/25/21 16:03 Source: patient Mode of arrival: ambulatory Limitations: language barrier History of Present Illness HPI narrative: 60-year-old male with past medical history of diabetes, hypertension, hyperlipidemia presents with 2 days of chest pain and several weeks of abdominal pain and urinary symptoms. States that his abdomen is really hard and he has a difficult time urinating, takes him awhile for urination to start any does not feel like he empties his bladder completely. He does report bilateral lower quadrant pain, as well as right upper quadrant pain. Stated the abdominal pain has increased over the past few days as the swelling has increased as well as increased swelling in his legs. He does not report drinking any alcohol and never had history of ascites or liver disease. He does have some chest pain which started 2 days ago it wraps around his chest and is mostly on the right side. Has been short of breath over the past few days which is unusual for him. He does not have sleep apnea. He denies fevers, chills, chest pressure, palpitations, pain on inspiration, dizziness, weakness, diaphoresis, nausea, vomiting, diarrhea, constipation, hematuria, and weakness. MD complaint: chest pain Onset (ago): day(s) Timing of current episode: constant Prior episodes: No Pain location: right chest Pain radiation: abdomen Severity: moderate Quality: aching and heaviness Relieving factors: nothing Exacerbating factors: exertion, inspiration, palpation and movement Associated symptoms: leg swelling Treatment prior to arrival: none Risk Factors Coronary artery disease risk factors: diabetes, hyperlipidemia and hypertension Related Data Home Medications Medication Instructions Recorded Confirmed Combivent Respimat 1 puff INHALATION QID PRN 12/10/20 01/25/21 Lantus Solostar U-100 Insulin 40 unit SUBCUT BEDTIME 12/10/20 01/25/21 aspirin 81 mg PO DAILY 12/10/20 01/25/21 atorvastatin 80 mg PO BEDTIME 12/10/20 01/25/21 carvedilol 6.25 mg PO BID 12/10/20 01/25/21 cilostazol 100 mg PO BID 12/10/20 01/25/21 clopidogrel 75 mg PO BEDTIME 12/10/20 01/25/21 insulin lispro [Humalog KwikPen 12 unit SUBCUT TID PRN 12/10/20 01/25/21 Insulin] lisinopril 1 tab PO BEDTIME 12/10/20 01/25/21 metformin 850 mg PO BID 12/10/20 01/25/21 pantoprazole 20 mg PO DAILY 12/10/20 01/25/21 polyvinyl alcohol [Artificial 1 drp OPHTHALMIC (EYE) BID 12/10/20 01/25/21 Tears (polyvin alc)] Previous Rx's Medication Instructions Recorded doxycycline hyclate 100 mg PO BID #14 tab 12/16/20 furosemide [Lasix] 20 mg PO DAILY #20 tab 01/25/21 tamsulosin [Flomax] 0.4 mg PO DAILY #20 cap 01/25/21 Allergies Allergy/AdvReac Type Severity Reaction Status Date / Time No Known Drug Allergies Allergy Unknown UNKNOWN Verified 09/17/20 10:23 Review of Systems Review of Systems: Constitutional: No Weight loss, No Fever, No Chills, No Night Sweats, No Fatigue, No Malaise ENT/Mouth: No Hearing loss, No Ear Pain, No Nasal Congestion, No Sinus Pain, No Hoarseness, No sore throat, No Rhinorrhea, No Swallowing Difficulty Eyes: No Eye Pain, No Swelling, No Redness, No Foreign Body, No Discharge, No Vision Changes Cardiovascular: Positive Chest Pain, positive SOB, positive Dyspnea on Exertion, No Orthopnea, positive Edema, No Palpitations Respiratory: No Cough, No Sputum, No Wheezing, No Smoke Exposure, No Dyspnea Gastrointestinal: No Nausea, NO Vomiting, NO Diarrhea, positive abdominal Pain, positive abdominal distention, No Hematochezia, No Melena Genitourinary: no irregular bleeding, positive Dysuria, positive Urinary Frequency, No Hematuria, No Urinary Incontinence, positive Urgency, positive F lank Pain, positive Urinary Flow Changes, positive Hesitancy Musculoskeletal: No joint pain, No Myalgias, No Joint Swelling Skin: No Skin Lesions, No rash Neuro: No Weakness, No Numbness, No Paresthesias, No Loss of Consciousness, No Dizziness, No Headache Psych: No Anxiety/Panic, No Depression, No SI/HI/AH/VH, No Social Issues Heme/Lymph: No Bruising, No Bleeding,No Lymphadenopathy Endocrine: No Polyuria, No Polydipsia, No Temperature Intolerance Yes all other systems are reviewed and are negative [facility] Past Medical History Attestation statement: The following information was validated with the patient. Source: old records reviewed Medical History Abscess, perineum Asthma Diabetes High cholesterol HTN (hypertension) Surgical History Hx of varicose vein stripping S/P angiogram of extremity Family History Family History Father No problems noted. Mother Diabetes HTN (hypertension) Sister No problems noted. Sister Diabetes HTN (hypertension) Sister No problems noted. Social History Social History Household Members: None Housing: Apartment Do you presently have visiting nurse or other home services: Yes Alcohol intake: never Patient Tobacco Use Status: Current someday Tobacco user Cigarettes Per Day: 6 Years Smoked: 15 Second Hand Smoke Exposure: No Advance Directives: No Advance Directives Information Provided: No Advance Directives Date on File: 12/10/20 service: No Current occupational status: disabled Physical Exam Vital Signs: Vital Signs: Last Vital Signs Temp 97.9 F 01/25/21 20:48 Pulse 69 01/25/21 20:48 Resp 18 01/25/21 20:48 BP 134/88 01/25/21 20:48 Pulse Ox 95 01/25/21 20:48 Body Mass Index 34.7 Appearance: Alert. Oriented X3. Moderate distress. Head: Normal external exam. Normocephalic. Atraumatic. No Johnson signs noted. No raccoon eyes noted Eyes: PERRLA. EOMI. Conjunctiva and sclera normal. Eyelids normal. ENT: TM's Normal. Pharynx normal. Uvula midline. Moist mucous membranes. No trismus noted. No drooling noted. No muffled voice noted. Neck: Normal inspection. Neck supple. No adenopathy. CVS: Normal heart rate and rhythm. Heart sound normal. No murmurs noted. Pulses equal to all extremities. Respiratory: No respiratory distress. Painless inspiration. Lung sounds clear to auscultation all lobes. Chest tender to palpation on the right chest wall. No accessory muscle usage noted or decreased air movement noted. Abdomen: Distended but not rigid and diffusely tender greater in the right upper quadrant and bilateral groins. Bladder not palpable. Bowel sounds normal in all 4 quadrants. No distention noted. No organomegaly noted. No visible injury noted. Back: No CVA tenderness. Full range of motion noted. No vertebral tenderness. Skin: Skin warm and dry. Normal skin color. Normal skin turgor. No rashes/lesions/lacerations noted. Extremities: +3 pitting bilateral lower extremity edema. Extremities exhibit normal range of motion. Extremities nontender. Neuro: cranial nerves 2-12 intact, no focal neural deficits, strength 5/5 to all extremities, No motor deficit. No sensory deficit. Course Course Course Narrative: 60-year-old male with past medical history of diabetes, hypertension, hyperlipidemia presents with chest pain for 2 days, abdominal pain for several days and urinary symptoms for several weeks. Will rule out ACS, acute abdomen and UTI. BNP elevated at 842, will give 40 mg of IV Lasix. Glucose elevated consistent with diabetes. CT of abdomen pelvis still pending. Patient producing about 3 L of urine, CT abdomen and pelvis indicates bladder abnormality. Discussion with hospitalist, plan is to call surgery and Urology. 8:00 p.m. I discussed this case with Urology business operations director, he does not feel that this is a urology problem feels like it is a surgical problem. 8:04 p.m. discussion with on-call surgery, they will come in and evaluate. 10:[address] Nagel into evaluate, feels that this is more Urology after her physical assessment and review of records. Detailed discussion with patient regarding plan of care discharge home and follow-up with Urology. As well as primary care physician. Patient verbalized understanding of and agrees plan of care discharge home. inspector eyeglass frames utilized for all correspondence. Google translate utilized for discharge instructions. Consultations Consultation #1: cheli Time: 19:50 Consultation #2: rey Time: 20:00 Consultation #3: Robe Time: 20:04 MDM - Chest Pain Differential Diagnosis Differential diagnosis: Likely fracture of rib, atypical chest pain, st elevation myocardial infarction, costochondritis and biliary colic Differential diagnosis: Acute abdomen, CHF, UTI Medical Records Data Attestation: I reviewed the patient's medical records. Lab Data Attestation: I reviewed the patient's lab results. Result diagrams: 01/25/21 16:25 01/25/21 16:25 Labs: Lab Results 01/25/21 01/25/21 01/25/21 Range/Units 16:25 16:25 16:25 WBC 10.3 (4.8-10.8) X10*3/uL RBC 4.59 L (4.60-5.80) X10*6/uL Hgb 14.0 (14.0-18.0) g/dl Hct 42.0 (42-52) % MCV 91.5 (80-98) fL MCH 30.5 (27.0-33.0) pg MCHC 33.3 (31.0-36.0) g/dl RDW 13.9 (11.0-16.0) % Plt Count 213 (160-400) X10*3/uL MPV 11.0 (9.4-12.4) fL Immature Gran % (Auto) 0.3 (0.0-0.4) % Neut % (Auto) 53.6 (45-73) % Lymph % (Auto) 29.0 (20-40) % [place] % (Auto) 6.8 (2-11) % Eos % (Auto) 9.4 H (0-4) % Baso % (Auto) 0.9 (0-2) % Lymph # (Auto) 3.0 (1.2-4.9) X10*3/uL [place] # (Auto) 0.7 (0.1-1.2) X10*3/uL Eos # (Auto) 1.0 H (0.0-0.4) X10*3/uL Baso # (Auto) 0.1 (0.0-0.2) X10*3/uL Abs Immat Gran (auto) 0.03 (0.00-0.03) X10*3/uL Absolute Neuts (auto) 5.5 (2.0-8.3) X10*3/uL Absolute Nucleated RBC 0.000 (0.0-0.012) X10*3/uL Nucleated RBC % (auto) 0.0 (0.0-0.2) /100WBC Sodium 134 L (135-145) mmol/L Potassium 4.3 (3.3-5.1) mmol/L Chloride 104 (96-108) mmol/L Carbon Dioxide 23 (22-29) mmol/L Anion Gap 11 L (12-20) BUN 13 (9-16) mg/dL Creatinine 0.94 (0.5-1.4) mg/dL Estim Creat Clear Calc 89.0 Estimated GFR > 60 POC Glucose (60-115) mg/dL Random Glucose 188 H (60-115) mg/dL Calcium 8.9 (8.4-10.2) mg/dL Total Bilirubin (0.0-1.0) mg/dL Direct Bilirubin (0.0-0.5) mg/dL AST (5-37) U/L ALT (0-40) U/L Alkaline Phosphatase (39-117) U/L Troponin I High Sens 12.0 (<3.5-35.0) ng/L B-Natriuretic Peptide 842 H (<100) pg/mL Total Protein (6.5-8.0) g/dL Albumin (3.5-5.0) g/dL Lipase (8-78) U/L Urine Color Urine Appearance Urine pH (5.0-8.0) Ur Specific [place] (1.005-1.025) Urine Protein (NEG-TRACE) MG/DL Urine Glucose (UA) (NEG) MG/DL Urine Ketones (NEG) MG/DL Urine Blood (NEG) Urine Nitrite (NEG) Ur Leukocyte Esterase (NEG) Urine RBC (0) /HPF Urine WBC (0-4) /HPF Ur Squamous Epith Cells /LPF Urine Bacteria /LPF COVID-19 (EVIE) (Negative) COVID-19 Clin Com 01/25/21 01/25/21 01/25/21 Range/Units 17:54 20:03 20:46 WBC (4.8-10.8) X10*3/uL RBC (4.60-5.80) X10*6/uL Hgb (14.0-18.0) g/dl Hct (42-52) % MCV (80-98) fL MCH (27.0-33.0) pg MCHC (31.0-36.0) g/dl RDW (11.0-16.0) % Plt Count (160-400) X10*3/uL MPV (9.4-12.4) fL Immature Gran % (Auto) (0.0-0.4) % Neut % (Auto) (45-73) % Lymph % (Auto) (20-40) % [place] % (Auto) (2-11) % Eos % (Auto) (0-4) % Baso % (Auto) (0-2) % Lymph # (Auto) (1.2-4.9) X10*3/uL [place] # (Auto) (0.1-1.2) X10*3/uL Eos # (Auto) (0.0-0.4) X10*3/uL Baso # (Auto) (0.0-0.2) X10*3/uL Abs Immat Gran (auto) (0.00-0.03) X10*3/uL Absolute Neuts (auto) (2.0-8.3) X10*3/uL Absolute Nucleated RBC (0.0-0.012) X10*3/uL Nucleated RBC % (auto) (0.0-0.2) /100WBC Sodium (135-145) mmol/L Potassium (3.3-5.1) mmol/L Chloride (96-108) mmol/L Carbon Dioxide (22-29) mmol/L Anion Gap (12-20) BUN (9-16) mg/dL Creatinine (0.5-1.4) mg/dL Estim Creat Clear Calc Estimated GFR POC Glucose 154 H (60-115) mg/dL Random Glucose (60-115) mg/dL Calcium (8.4-10.2) mg/dL Total Bilirubin (0.0-1.0) mg/dL Direct Bilirubin (0.0-0.5) mg/dL AST (5-37) U/L ALT (0-40) U/L Alkaline Phosphatase (39-117) U/L Troponin I High Sens (<3.5-35.0) ng/L B-Natriuretic Peptide (<100) pg/mL Total Protein (6.5-8.0) g/dL Albumin (3.5-5.0) g/dL Lipase (8-78) U/L Urine Color YELLOW Urine Appearance CLEAR Urine pH 5.5 (5.0-8.0) Ur Specific [place] 1.020 (1.005-1.025) Urine Protein TRACE (NEG-TRACE) MG/DL Urine Glucose (UA) 100 H (NEG) MG/DL Urine Ketones NEG (NEG) MG/DL Urine Blood TRACE (NEG) Urine Nitrite NEG (NEG) Ur Leukocyte Esterase NEG (NEG) Urine RBC 1-4 (0) /HPF Urine WBC 0-2 (0-4) /HPF Ur Squamous Epith Cells NONE /LPF Urine Bacteria TRACE /LPF COVID-19 (EVIE) Negative (Negative) COVID-19 Clin Com See Note 01/25/21 Range/Units Unknown WBC (4.8-10.8) X10*3/uL RBC (4.60-5.80) X10*6/uL Hgb (14.0-18.0) g/dl Hct (42-52) % MCV (80-98) fL MCH (27.0-33.0) pg MCHC (31.0-36.0) g/dl RDW (11.0-16.0) % Plt Count (160-400) X10*3/uL MPV (9.4-12.4) fL Immature Gran % (Auto) (0.0-0.4) % Neut % (Auto) (45-73) % Lymph % (Auto) (20-40) % [place] % (Auto) (2-11) % Eos % (Auto) (0-4) % Baso % (Auto) (0-2) % Lymph # (Auto) (1.2-4.9) X10*3/uL [place] # (Auto) (0.1-1.2) X10*3/uL Eos # (Auto) (0.0-0.4) X10*3/uL Baso # (Auto) (0.0-0.2) X10*3/uL Abs Immat Gran (auto) (0.00-0.03) X10*3/uL Absolute Neuts (auto) (2.0-8.3) X10*3/uL Absolute Nucleated RBC (0.0-0.012) X10*3/uL Nucleated RBC % (auto) (0.0-0.2) /100WBC Sodium (135-145) mmol/L Potassium (3.3-5.1) mmol/L Chloride (96-108) mmol/L Carbon Dioxide (22-29) mmol/L Anion Gap (12-20) BUN (9-16) mg/dL Creatinine (0.5-1.4) mg/dL Estim Creat Clear Calc Estimated GFR POC Glucose (60-115) mg/dL Random Glucose (60-115) mg/dL Calcium (8.4-10.2) mg/dL Total Bilirubin 0.7 (0.0-1.0) mg/dL Direct Bilirubin 0.3 (0.0-0.5) mg/dL AST 17 D (5-37) U/L ALT 36 (0-40) U/L Alkaline Phosphatase 60 (39-117) U/L Troponin I High Sens (<3.5-35.0) ng/L B-Natriuretic Peptide (<100) pg/mL Total Protein 6.7 (6.5-8.0) g/dL Albumin 3.9 (3.5-5.0) g/dL Lipase 30 (8-78) U/L Urine Color Urine Appearance Urine pH (5.0-8.0) Ur Specific [place] (1.005-1.025) Urine Protein (NEG-TRACE) MG/DL Urine Glucose (UA) (NEG) MG/DL Urine Ketones (NEG) MG/DL Urine Blood (NEG) Urine Nitrite (NEG) Ur Leukocyte Esterase (NEG) Urine RBC (0) /HPF Urine WBC (0-4) /HPF Ur Squamous Epith Cells /LPF Urine Bacteria /LPF COVID-19 (EVIE) (Negative) COVID-19 Clin Com Imaging Data CT abdomen pelvis: Attestation: I personally reviewed and interpreted this imaging study as follows: Radiologist's impression: FINDINGS: LUNG BASES: The heart is enlarged. No gross infiltrates, lung masses or pleural effusions are seen. LIVER, GALLBLADDER, AND BILIARY TREE: The liver is normal in size, shape, and attenuation. No focal hepatic lesion or biliary ductal dilatation is present. The gallbladder is unremarkable with no evidence of radiopaque gallstones, gallbladder wall thickening, or obvious pericholecystic inflammatory changes. No ascites is present. PANCREAS: Unremarkable. SPLEEN: Unremarkable. ADRENAL GLANDS: Unremarkable. KIDNEYS AND URETERS: The kidneys are normal in size, shape, and attenuation. A 1.3 cm hyperattenuating cyst present in the left kidney with an additional smaller 8 mm cyst as well. Benign-appearing right renal cysts are present. No worrisome renal masses are seen. No hydronephrosis, hydroureter, or calculi seen. No perinephric stranding. BLADDER: A portion of the bladder herniates into the left inguinal hernia. Very subtle calcification and bladder wall thickening is again seen along the left wall of the bladder. GASTROINTESTINAL TRACT: The small and large bowel are unremarkable. The appendix is unremarkable. ABDOMINAL WALL: Bilateral inguinal hernias are seen containing fat. A portion of the dome of the bladder extends into the left inguinal hernia. LYMPH NODES: No retroperitoneal lymphadenopathy. VASCULAR: Severe aortoiliac atherosclerotic disease is present with bilateral iliac stents in place. PELVIC VISCERA: Again seen is BPH with prostate measuring 5.4 x 5.2 x 7 cm. There is some asymmetry of the seminal vesicles which is larger on the left OSSEOUS STRUCTURES: Cystic changes are again seen supra-acetabular regions bilaterally, left greater than right. IMPRESSION: A cause for abdominal pain and distention is not found with certainty. A number of incidental findings are again demonstrated includin. Cardiomegaly 2. Bilateral renal cysts 3. Bilateral fat-containing inguinal hernias. The hernia on the left contains a portion of the dome of the bladder. 4. The left bladder wall contains some subtle calcification and left-sided thickening which could be a sign of malignancy and cystoscopy is recommended for further evaluation. 5. BPH Chest x-ray: Attestation: I personally reviewed and interpreted this imaging study as follows: Radiologist's impression: EXAMINATION: XR CHEST CLINICAL INFORMATION: Chest pain. Shortness of breath COMPARISON: October 17, 2019 TECHNIQUE: 2 views of the chest were obtained. FINDINGS: The pericardial pericardial silhouette is mildly enlarged. No evidence of pulmonary edema. No pneumothorax or pleural effusion. XR/XR chest 2V IMPRESSION: No acute disease. ECG Data ECG #1: Attestation: I personally reviewed and interpreted this ECG as follows: ECG interpretation date: 01/25/21 ECG interpretation time: 15:46 Interpretation: Vent. rate 79 BPM WA interval 168 ms QRS duration 120 ms QT/QTc 416/477 ms P-R-T axes 67 -29 108 Sinus rhythm with Premature atrial complexes in a pattern of bigeminy Possible Left atrial enlargement Left ventricular hypertrophy with QRS widening Inferior infarct (cited on or before 10-DEC-2020) T wave abnormality, consider lateral ischemia Abnormal ECG When compared with ECG of 10-DEC-2020 08:29, Premature atrial complexes are now Present Discharge Plan Discharge Clinical Impression: Acute urinary retention Bladder cancer Qualifiers: Bladder location: lateral wall Qualified Code(s): C67.2 - Malignant neoplasm of lateral wall of bladder Chest pain Qualifiers: Chest pain type: unspecified Qualified Code(s): R07.9 - Chest pain, unspecified Bilateral inguinal hernia Qualifiers: Obstruction and gangrene presence: without obstruction or gangrene Recurrence: not specified as recurrent Qualified Code(s): K40.20 - Bilateral inguinal hernia, without obstruction or gangrene, not specified as recurrent Benign prostatic hyperplasia Qualifiers: Lower urinary tract symptom presence: symptoms present Lower urinary tract symp josh detail: unspecified Qualified Code(s): N40.1 - Benign prostatic hyperplasia with lower urinary tract symptoms Patient Disposition: Home, Self-Care Instructions: Enlarged Prostate (BPH) (ED), Bladder Cancer (DC), Edema (ED) Additional Instructions: Fue evaluado por m?ltiples quejas. Fue evaluado por dolor en el pecho y dificultad para respirar. Darya valores de laboratorio indicaron un BNP de 849, lo que es consistente con berry posible insuficiencia card?quinten. Debe hacer un seguimiento con magallon m?dico de atenci?n primaria para realizar m?s estudios. Le recet? Lasix 20 mg. Quiero que tome neris medicamento todas las ma?anas para ayudar a reducir el l?quido. Perlita un seguimiento con atenci?n primaria; necesitar? valores de laboratorio para controlar darya electrolitos. [place] Lasix seg?n las indicaciones. Magallon m?dico tendr? que continuar con neris medicamento por usted. Para la retenci?n urinaria, perlita un seguimiento con el Dr. Baldwin. La tomograf?a computarizada del abdomen y la pelvis muestra un engrosamiento en el lado brett de la pared de la vejiga compatible con un posible c?ncer de vejiga. Tambi?n tuvo retenci?n urinaria debido a otra pr?stata mar. En la tomograf?a computarizada, cuando la vejiga est? demasiado llena, empuja hacia la hernia inguinal. El Dr. Nagel lo evalu? mientras estaba en el departamento de emergencias y siente que puede operarse beltran paciente externo para ayudar a reparar darya hernias inguinales. Debe hacer un seguimiento con Urolog?a para magallon pr?stata agrandada y saadia sospecha de c?ncer de vejiga. Le recet? Flomax para ayudarlo a orinar. Semaj por elegir neris departamento de emergencias para magallon evaluaci?n. Perlita un seguimiento con magallon m?dico de atenci?n primaria seg?n sea necesario. Regrese al departamento de emergencias por cualquier s?ntoma nuevo, preocupante o que empeore. You were evaluated for multiple complaints. You were evaluated for chest pain and shortness of breath. Your lab values indicated a BNP of 849, which is consistent with possible heart failure. You m ust follow-up with your primary care physician for further workup. I did prescribe Lasix 20 mg. I want you to take this medication every morning to help reduce fluid. Please follow-up with primary care you will need lab values to monitor your electrolytes. Please take Lasix as directed. Your doctor will have to continue this medication for you. For urinary retention, please follow-up with Dr. Baldwin. CT scan of the abdomen and pelvis shows a thickening on the left side of the bladder wall consistent with possible bladder cancer. Also had urinary retention because of another large prostate. On the CT scan, when your bladder is over filled it pushes out into the inguinal hernia. Dr. Nagel evaluated you while you were in the emergency department and feels that you can have surgery as an outpatient to help repair your inguinal hernias. You must follow-up with Urology for your e nlarged prostate and high suspicion of bladder cancer. I prescribed Flomax for you to help with urination. Thank you for choosing this emergency department for evaluation. Please follow-up with primary care physician as needed. Return to the emergency department for any new, concerning, or worsening symptoms. Prescriptions: New furosemide [Lasix] 20 mg tablet 20 mg PO DAILY Qty: 20 RF: 0 tamsulosin [Flomax] 0.4 mg capsule 0.4 mg PO DAILY Qty: 20 RF: 0 No Action polyvinyl alcohol [Artificial Tears (polyvin alc)] 1.4 % drops 1 drp ophthalmic (eye) BID RF: 0 metformin 850 mg tablet 850 mg PO BID RF: 0 Combivent Respimat 20-100 mcg/actuation mist 1 puff INHALATION QID PRN (Reason: Wheezing) RF: 0 cilostazol 100 mg tablet 100 mg PO BID RF: 0 atorvastatin 80 mg tablet 80 mg PO BEDTIME RF: 0 carvedilol 6.25 mg tablet 6.25 mg PO BID RF: 0 clopidogrel 75 mg tablet 75 mg PO BEDTIME RF: 0 aspirin 81 mg tablet,delayed release (DR/EC) 81 mg PO DAILY RF: 0 pantoprazole 20 mg tablet,delayed release (DR/EC) 20 mg PO DAILY RF: 0 lisinopril 40 mg tablet 1 tab PO BEDTIME RF: 0 insulin lispro [Humalog KwikPen Insulin] 100 unit/mL insulin pen 12 unit subcut TID PRN (Reason: Hypoglycemia) RF: 0 Lantus Solostar U-100 Insulin 100 unit/mL (3 mL) insulin pen 40 unit subcut BEDTIME RF: 0 doxycycline hyclate 100 mg tablet 100 mg PO BID Qty: 14 RF: 0 Referrals: Yo Baldwin MD [Physician] - 2 days (Suspected bladder cancer and BPH)
[2021-01-25 16:08] VITALS: BP 139/67; PULSE 77; RESP 20; TEMP 36.7; O2SAT 97
[2021-01-25 16:32] LABS: Basophils Absolute Auto 0.1 X10*3/uL (0.0-0.2); Basophils Percent Auto 0.9 % (0-2); Eosinophils Percent Auto 9.4 % (0-4); Imm Gran Abs Auto 0.03 X10*3/uL (0.00-0.03); Imm Gran Pct Auto 0.3 % (0.0-0.4); MANUAL DIFF FLAG NO; Mean Corpuscular HGB Conc 33.3 g/dl (31.0-36.0); Mean Corpuscular Hemoglobin 30.5 pg (27.0-33.0); Mean Corpuscular Volume 91.5 fL (80-98); Monocytes Absolute Auto 0.7 X10*3/uL (0.1-1.2); Monocytes Percent Auto 6.8 % (2-11); Neutrophils Absolute Auto 5.5 X10*3/uL (2.0-8.3); Neutrophils Percent Auto 53.6 % (45-73); Platelet Count 213 X10*3/uL (160-400); Red Blood Count 4.59 X10*6/uL (4.60-5.80); Red Cell Distribution Width 13.9 % (11.0-16.0); White Blood Count 10.3 X10*3/uL (4.8-10.8)
[2021-01-25 17:03] LABS: Anion Gap 11 (12-20); Blood Urea Nitrogen 13 mg/dL (9-16); Calcium 8.9 mg/dL (8.4-10.2); Carbon Dioxide 23 mmol/L (22-29); Chloride 104 mmol/L (96-108); Estimated Glomerular Filt Rate > 60; Glucose Random 188 mg/dL (60-115); Potassium 4.3 mmol/L (3.3-5.1); Sodium 134 mmol/L (135-145)
[2021-01-25 17:11] LABS: B Type Natriuretic Peptide 842 pg/mL (<100)
[2021-01-25] MEDS: Furosemide 40 MG/4 ML VIAL IVPUSH (17:56)
[2021-01-25 18:14] LABS: Glucose Urine UA 100 MG/DL (NEG); Leukocyte Esterase Urine NEG (NEG); Nitrite Urine NEG (NEG); PH 5.5 (5.0-8.0); Urine Blood TRACE (NEG); Urine Ketones NEG (NEG); Urine Protein TRACE MG/DL (NEG-TRACE)
[2021-01-25 18:20] LABS: Alanine Aminotransferase 36 U/L (0-40); Albumin Level 3.9 g/dL (3.5-5.0); Alkaline Phosphatase 60 U/L (39-117); Aspartate Amino Transferase 17 U/L (5-37); Bilirubin Direct 0.3 mg/dL (0.0-0.5); Bilirubin Total 0.7 mg/dL (0.0-1.0); Lipase 30 U/L (8-78); Total Protein 6.7 g/dL (6.5-8.0)
[2021-01-25 18:22] LABS: Appearance Urine CLEAR; Color Urine YELLOW
[2021-01-25 18:25] LABS: Bacteria Urine TRACE /LPF; WBC Urine 0-2 /HPF (0-4)
[2021-01-25 18:36] VITALS: BP 144/52; PULSE 70; RESP 20; TEMP 36.5; O2SAT 95
[2021-01-25] MEDS: Morphine Sulfate 2 MG/ML CARTRIDGE IVPUSH (19:22)
[2021-01-25] MEDS: Morphine Sulfate 4 MG/ML CARTRIDGE IVPUSH (20:01)
[2021-01-25] MEDS: ondansetron HCL 4 MG/2 ML VIAL IVPUSH (20:01)
[2021-01-25 20:07] LABS: Glucose, Whole Blood 154 mg/dL (60-115)
[2021-01-25 20:48] VITALS: BP 134/88; PULSE 69; RESP 18; TEMP 36.6; O2SAT 95
[2021-01-25 21:08] LABS: COVID-19 Test Negative (Negative); IDNOW Serial# 9DD0AD1C
--- NOTE | 2021-01-25 21:10 | PC.NURSE ---
patient refused ochoa catheter provider aware, patient using urinals appropriately, will hold off for now
--- NOTE | 2021-01-25 22:51 | P.CONGS_ITS ---
Assessment and Plan (1) Urinary retention: Status: Acute 60 year old male with BPH and urinary retention and distended bladder which probably got pushed into left inguinal hernia defect. His abdo discomfort was more due to his distended bladder. since being paged i asked for ochoa cath to be placed but pt was finally able to urinate 3-4 L of urine and now feeling much better, abdo softer and groin areas and abdo nontender, no masses, i think with urination the bladder has decompressed and reduced from the groin areas recommend pt follow up with urology, needs treatment for BPH as well as cystos copy as pt has suspicious changes in his bladder. he does have some defect in bilat inguinal canals but no hernias requiring immediate surgical intervention. if after urological investigation and treatment is complete can follow up with gen surgery to re-eval the hernias. History of Present Illness Consult details Consult date: 01/25/21 Reason for consult: abdominal pain Requesting physician: Ayana Starkey Narrative: The pt is a 60 year old male who came in complaining of chest pain and abdo firmness and pain. The pt had a CT scan abdo and pelvis and it showed some thickening of the bladder and part of the dome of the bladder in a left inguinal hernia. The pt had a ct scan in 12/23 which showed fat in bilateral ing hernias but no herniated bladder. Pt also with elevated BNp and treated here for this - having issues with urinating and looks like he has BPH. Consulted by the ER team to see for his abdo pain and hernias. Review of Systems Review of Systems: Constitutional: No Weight loss, No Fever, No Chills, No Night Sweats, No Fatigue, No Malaise ENT/Mouth: No Hearing loss, No Ear Pain, No Nasal Congestion, No Sinus Pain, No Hoarseness, No sore throat, No Rhinorrhea, No Swallowing Difficulty Eyes: No Eye Pain, No Swelling, No Redness, No Foreign Body, No Discharge, No Vision Changes Cardiovascular: Positive Chest Pain, positive SOB, positive Dyspnea on Exertion, No Orthopnea, positive Edema, No Palpitations Respiratory: No Cough, No Sputum, No Wheezing, No Smoke Exposure, No Dyspnea Gastrointestinal: No Nausea, NO Vomiting, NO Diarrhea, positive abdominal Pain, positive abdominal distention, No Hematochezia, No Melena Genitourinary: no irregular bleeding, positive Dysuria, positive Urinary Frequ ency, No Hematuria, No Urinary Incontinence, positive Urgency, positive Flank Pain, positive Urinary Flow Changes, positive Hesitancy Musculoskeletal: No joint pain, No Myalgias, No Joint Swelling Skin: No Skin Lesions, No rash Neuro: No Weakness, No Numbness, No Paresthesias, No Loss of Consciousness, No Dizziness, No Headache Psych: No Anxiety/Panic, No Depression, No SI/HI/AH/VH, No Social Issues Heme/Lymph: No Bruising, No Bleeding,No Lymphadenopathy Endocrine: No Polyuria, No Polydipsia, No Temperature Intolerance Yes all other systems are reviewed and are negative PMFSH Past Medical History Medical History Abscess, perineum Asthma Diabetes High cholesterol HTN (hypertension) Family History Family History Father No problems noted. Mother Diabetes HTN (hypertension) Sister No problems noted. Sister Diabetes HTN (hypertension) Sister No problems noted. Surgical History Surgical History Hx of varicose vein stripping S/P angiogram of extremity Social History Social History Household Members: None Housing: Apartment Do you presently have visiting nurse or other home services: Yes Alcohol intake: never Patient Tobacco Use Status: Current someday Tobacco user Cigarettes Per Day: 6 Years Smoked: 15 Second Hand Smoke Exposure: No Advance Directives: No Advance Directives Information Provided: No Advance Directives Date on File: 12/10/20 service: No Current occupational status: disabled Meds Allergies Allergy/AdvReac Type Severity Reaction Status Date / Time No Known Drug Allergies Allergy Unknown UNKNOWN Verified 09/17/20 10:23 Home Medications Medication Instructions Recorded Confirmed Last Taken Type Combivent Respimat 1 puff INHALATION QID PRN 12/10/20 01/25/21 12/09/20 History Lantus Solostar U-100 Insulin 40 unit SUBCUT BEDTIME 12/10/20 01/25/21 12/09/20 History aspirin 81 mg PO DAILY 12/10/20 01/25/21 12/09/20 History atorvastatin 80 mg PO BEDTIME 12/10/20 01/25/21 12/09/20 History carvedilol 6.25 mg PO BID 12/10/20 01/25/21 12/09/20 History cilostazol 100 mg PO BID 12/10/20 01/25/21 12/09/20 History clopidogrel 75 mg PO BEDTIME 12/10/20 01/25/21 12/09/20 History insulin lispro [Humalog KwikPen 12 unit SUBCUT TID PRN 12/10/20 01/25/21 12/09/20 History Insulin] lisinopril 1 tab PO BEDTIME 12/10/20 01/25/21 12/09/20 History metformin 850 mg PO BID 12/10/20 01/25/21 12/09/20 History pantoprazole 20 mg PO DAILY 12/10/20 01/25/21 12/09/20 History polyvinyl alcohol [Artificial 1 drp OPHTHALMIC (EYE) BID 12/10/20 01/25/21 12/09/20 History Tears (polyvin alc)] Physical Exam Vital Signs: Vital Signs: Last Vital Signs Temp 97.9 F 01/25/21 20:48 Pulse 69 01/25/21 20:48 Resp 18 01/25/21 20:48 BP 134/88 01/25/21 20:48 Pulse Ox 95 01/25/21 20:48 Body Mass Index 34.7 Const: General: cooperative, healthy appearing and comfortable Nutritional Appearance: well nourished and overweight GI: Other: abdo- soft nontender , bilateral inguinal areas with no masses nontender, rest of the abdo is benign Results Labs Result diagrams: 01/25/21 16:25 01/25/21 16:25 Labs: Abnormal lab results 01/25/21 01/25/21 01/25/21 Range/Units 16:25 16:25 16:25 RBC 4.59 L (4.60-5.80) X10*6/uL Eos % (Auto) 9.4 H (0-4) % Eos # (Auto) 1.0 H (0.0-0.4) X10*3/uL Sodium 134 L (135-145) mmol/L Anion Gap 11 L (12-20) POC Glucose (60-115) mg/dL Random Glucose 188 H (60-115) mg/dL B-Natriuretic Peptide 842 H (<100) pg/mL Urine Glucose (UA) (NEG) MG/DL 01/25/21 01/25/21 Range/Units 17:54 20:03 RBC (4.60-5.80) X10*6/uL Eos % (Auto) (0-4) % Eos # (Auto) (0.0-0.4) X10*3/uL Sodium (135-145) mmol/L Anion Gap (12-20) POC Glucose 154 H (60-115) mg/dL Random Glucose (60-115) mg/dL B-Natriuretic Peptide (<100) pg/mL Urine Glucose (UA) 100 H (NEG) MG/DL Short CBC 01/25/21 Range/Units 16:25 WBC 10.3 (4.8-10.8) X10*3/uL Hgb 14.0 (14.0-18.0) g/dl Hct 42.0 (42-52) % Plt Count 213 (160-400) X10*3/uL BMP 01/25/21 16:25 Sodium 134 L Potassium 4.3 Chloride 104 Carbon Dioxide 23 BUN 13 Creatinine 0.94 Calcium 8.9 Liver Function 01/25/21 Range/Units Unknown Total Bilirubin 0.7 (0.0-1.0) mg/dL Direct Bilirubin 0.3 (0.0-0.5) mg/dL AST 17 D (5-37) U/L ALT 36 (0-40) U/L Alkaline Phosphatase 60 (39-117) U/L Albumin 3.9 (3.5-5.0) g/dL Urine 01/25/21 Range/Units 17:54 Urine Color YELLOW Urine Appearance CLEAR Urine pH 5.5 (5.0-8.0) Ur Specific [place] 1.020 (1.005-1.025) Urine Protein TRACE (NEG-TRACE) MG/DL Urine Glucose (UA) 100 H (NEG) MG/DL All other labs normal. Procedures Date of Service Date of Service: 01/25/21
== END 2021-01-25 23:38 | disposition home or self-care (01) ==
PROVIDERS: Nurse Practitioner Family; Emergency Provider Emergency Medicine
DX: R33.9 Retention of urine, unspecified (principal); N40.1 Benign prostatic hyperplasia with lower urinary tract symptoms; R07.9 Chest pain, unspecified; K40.20 Bilateral inguinal hernia, without obstruction or gangrene, not specified as recurrent; R06.02 Shortness of breath; R93.5 Abnormal findings on diagnostic imaging of other abdominal regions, including retroperitoneum; I51.7 Cardiomegaly; Q61.02 Congenital multiple renal cysts; N32.89 Other specified disorders of bladder; E11.9 Type 2 diabetes mellitus without complications; I10 Essential (primary) hypertension; E78.5 Hyperlipidemia, unspecified; F17.210 Nicotine dependence, cigarettes, uncomplicated; Z20.822 Contact with and (suspected) exposure to COVID-19; Z79.4 Long term (current) use of insulin; Z79.82 Long term (current) use of aspirin; Z79.02 Long term (current) use of antithrombotics/antiplatelets
CPT/HCPCS: 36415; 71046; 74176; 80048; 80076; 81001; 82947; 83690; 83880; 84484; 85025; 87635; 93005; 96374; 96375; 96376; 99284; 99285; J1940; J2270; J2405

== ENCOUNTER → 2021-02-20 08:34 | Outpatient (BNVA) | payer MEDICAID, SELFPAY | PROVIDERS: Visit Provider Urology | DX: N40.1 Benign prostatic hyperplasia with lower urinary tract symptoms (principal); N13.8 Other obstructive and reflux uropathy; R35.1 Nocturia | CPT/HCPCS: 99202 ==

== ENCOUNTER 2021-05-14 08:59 | Outpatient (REF) | payer MEDICAID, SELFPAY ==
[2021-05-14 10:12] LABS: PSA,Total (Free>4and<10) 1.97 ng/mL (0.00-4.00)
== END 2021-05-14 09:00 | disposition home or self-care (01) ==
LOC: HO.LAB 08:59
PROVIDERS: Visit Provider Urology
DX: Z12.5 Encounter for screening for malignant neoplasm of prostate (principal); N13.8 Other obstructive and reflux uropathy; N40.1 Benign prostatic hyperplasia with lower urinary tract symptoms
CPT/HCPCS: 36415; 84153

== ENCOUNTER → 2021-06-04 12:58 | Outpatient (BNVA) | payer MEDICAID, SELFPAY | PROVIDERS: PCP Family Medicine; Visit Provider Urology ==

== ENCOUNTER 2021-07-20 12:24 | Emergency (ER) | payer MEDICAID, SELFPAY ==
--- NOTE | ~2021-07-20 | CT_ITS ---
EXAMINATION: CT HEAD WITHOUT CONTRAST CLINICAL INFORMATION: 1103 COMPARISON: None TECHNIQUE: Contiguous axial imaging was performed from the skull base to vertex without intravenous administration of contrast. Coronal and sagittal reformatted images are performed at CT scanner This CT examination was performed using dose optimization techniques as appropriate, variously including the following: *Automated exposure control *Adjustment of mA and/or kV according to patient size (this includes techniques or standardized protocols for targeted exams where dose is matched to indication/reason for exam; i.e. extremities or head) *Use of iterative reconstruction technique DLP: 784.99 mGy-cm FINDINGS: There is no evidence of acute intracranial hemorrhage or territorial infarction. No abnormal mass effect or midline shift is seen. Roman to white matter differentiation is well preserved. No extra-axial fluid collections are identified. There is generalized global volume loss. There is moderate prominence of the ventricles and the sulci . There is mild hypodensity of the periventricular white matter due to chronic small vessel ischemic disease. There are vascular calcifications of the internal carotid arteries bilaterally. The osseous structures and soft tissues are normal. The mastoid air cells and visualized portions of the paranasal sinuses are well aerated. CT/CT head/brain wo con IMPRESSION: No acute intracranial pathology.
--- NOTE | ~2021-07-20 | CT_ITS ---
EXAMINATION: CT SCAN OF THE TEMPORAL BONES CLINICAL INFORMATION: Ear pain. Rule out mastoiditis. COMPARISON: None. TECHNIQUE: Multidetector helical imaging was performed in the axial plane with generation of oblique axial and coronal reformatted projections. This CT examination was performed using dose optimization techniques as appropriate, variously including the following: *Automated exposure control *Adjustment of mA and/or kV according to patient size (this includes techniques or standardized protocols for targeted exams where dose is matched to indication/reason for exam; i.e. extremities or head) *Use of iterative reconstruction technique DLP: 313 mGy-cm. FINDINGS: The external auditory canals and tympanic membranes are normal. The ossicular chains are intact bilaterally. No osseous erosion is seen. No soft tissue abnormality is seen in the middle ear cavities. There is trace fluid in the dependent right mastoid air cells. The left mastoid air cells are clear. The facial nerves follow a normal course bilaterally. The inner ear structures and internal auditory canals are normal. There is trace mucosal thickening in the paranasal sinuses. There are soft tissue inflammatory changes in the suboccipital soft tissues and in the right lateral aspect of the paravertebral space around the musculature. No discrete drainable fluid collection identified. The nasopharyngeal soft tissues appear normal. The imaged portions of the brain demonstrate no acute abnormality. CT/CT mastoid IMPRESSION: Normal CT scan of the temporal bones. Soft tissue inflammatory changes in the suboccipital soft tissues, right greater than left side and in the right lateral paravertebral space around the musculature of indeterminate etiology. No drainable fluid collection visible.
[2021-07-20 12:59] VITALS: BP 162/57; PULSE 78; RESP 19; TEMP 36.6; O2SAT 97; BMI 34.7
[2021-07-20 14:12] LABS: Appearance Urine CLEAR; Color Urine YELLOW; Glucose Urine UA >=1000 MG/DL (NEG); Leukocyte Esterase Urine NEG (NEG); Nitrite Urine NEG (NEG); PH 7.5 (5.0-8.0); Specific Gravity - Urine 1.015 (1.005-1.025); UACC Culture Trigger NO; Urine Blood TRACE (NEG); Urine Ketones NEG (NEG); Urine Protein 1+ MG/DL (NEG-TRACE)
--- NOTE | 2021-07-20 14:17 | ED_ITS ---
HPI - Wound/Laceration General Chief Complaint: Wound/Laceration <NIEVES Araujo - Last Filed: 07/20/21 17:35> Stated Complaint: abscess back of head <NIEVES Araujo - Last Filed: 07/20/21 17:35> Time Seen by Provider: 07/20/21 13:51 <NIEVES Araujo Last Filed: 07/20/21 17:35> Source: patient <NIEVES Araujo - Last Filed: 07/20/21 17:35> Mode of arrival: ambulatory <NIEVES Araujo Last Filed: 07/20/21 17:35> Limitations: no limitations <NIEVES Araujo - Last Filed: 07/20/21 17:35> History of Present Illness HPI narrative: 60-year-old male past medical history significant for peripheral artery disease, cellulitis, diabetes, urinary retention, BPH presents to the emergency department with complaints of pain/swelling to the right side of his head x4 days [place] of [place] worsening. Patient tells me that he noted a lump is very small 4 days ago, this lump has progressively gotten larger and it has become more and more painful. Patient tells me that nothing helps the pain. He is also reporting that his right ear starting to hurt. He denies chest pain, shortness of breath, fevers, chills, nausea, vomiting. He does not recall other ever being a laceration or scrape to that area. <NIEVES Araujo Last Filed: 07/20/21 17:35> Onset (ago): day(s) (4) <NIEVES Araujo Last Filed: 07/20/21 17:35> Location: scalp <NIEVES Araujo Last Filed: 07/20/21 17:35> Place: home <NIEVES Araujo Last Filed: 07/20/21 17:35> Associated symptoms: none <NIEVES Araujo Last Filed: 07/20/21 17:35> Treatments prior to arrival: NSAIDS <NIEVES Araujo Last Filed: 07/20/21 17:35> Related Data Home Medications: Home Medications Medication Instructions Recorded Confirmed aspirin 81 mg tablet,delayed 81 mg PO DAILY 12/10/20 01/25/21 release atorvastatin 80 mg tablet 80 mg PO BEDTIME 12/10/20 01/25/21 carvedilol 6.25 mg tablet 6.25 mg PO BID 12/10/20 01/25/21 cilostazol 100 mg tablet 100 mg PO BID 12/10/20 01/25/21 clopidogrel 75 mg tablet 75 mg PO BEDTIME 12/10/20 01/25/21 insulin glargine 100 unit/mL (3 40 unit SUBCUT BEDTIME 12/10/20 01/25/21 mL) subcutaneous pen (Lantus Solostar U-100 Insulin) insulin lispro 100 unit/mL 12 unit SUBCUT TID PRN 12/10/20 01/25/21 subcutaneous pen (Humalog KwikPen (U-100) Insulin) ipratropium 20 mcg-albuterol 100 1 puff INHALATION QID PRN 12/10/20 01/25/21 mcg/actuation mist for inhalation (Combivent Respimat) lisinopril 40 mg tablet 1 tab PO BEDTIME 12/10/20 01/25/21 metformin 850 mg tablet 850 mg PO BID 12/10/20 01/25/21 pantoprazole 20 mg tablet,delayed 20 mg PO DAILY 12/10/20 01/25/21 release polyvinyl alcohol 1.4 % eye drops 1 drp OPHTHALMIC (EYE) BID 12/10/20 01/25/21 (Artificial Tears (polyvinyl alcohol)) Previous Rx's Medication Instructions Recorded doxycycline hyclate 100 mg tablet 100 mg PO BID #14 tab 12/16/20 furosemide 20 mg tablet (Lasix) 20 mg PO DAILY #20 tab 01/25/21 finasteride 5 mg tablet 5 mg PO DAILY 90 Days #90 tab 05/12/21 tamsulosin 0.4 mg capsule (Flomax) 0.4 mg PO DAILY 90 Days #90 cap 06/04/21 cephalexin 500 mg tablet 500 mg PO Q6H 10 Days #40 tab 07/20/21 doxycycline hyclate 100 mg capsule 100 mg PO BID 10 Days #20 cap 07/20/21 <NIEVES Araujo - Last Filed: 07/20/21 17:35> Allergies/Adverse Reactions: Allergies Allergy/AdvReac Type Severity Reaction Status Date / Time No Known Drug Allergies Allergy Unknown UNKNOWN Verified 06/04/21 13:00 <NIEVES Araujo - Last Filed: 07/20/21 17:35> Review of Systems Review of Systems: Constitutional : No Fever, No Chills, Cardiovascular : No Chest Pain, No SOB Respiratory : No Dyspnea Gastrointestinal : No abdominal pain Musculoskeletal : No Joint Swelling Skin : No rash, No skin laceration, + abscess to right side of scalp Neuro : No Weakness, No Numbness Psych : No SI/HI <NIEVES Araujo - Last Filed: 07/20/21 17:35> Yes all other systems are reviewed and are negative <NIEVES Araujo - Last Filed: 07/20/21 17:35> [facility] Past Medical History Attestation statement: The following information was validated with the patient. <NIEVES Araujo - Last Filed: 07/20/21 17:35> Source: old records reviewed and nursing notes reviewed <NIEVES Araujo - Last Filed: 07/20/21 17:35> Medical History: Medical History Abscess, perineum Asthma Diabetes High cholesterol HTN (hypertension) <NIEVES Araujo - Last Filed: 07/20/21 17:35> Surgical History: Surgical History Hx of varicose vein stripping S/P angiogram of extremity <NIEVES Araujo - Last Filed: 07/20/21 17:35> Family History Family History: Family History Father No problems noted. Mother Diabetes HTN (hypertension) Sister No problems noted. Sister Diabetes HTN (hypertension) Sister No problems noted. <NIEVES Araujo - Last Filed: 07/20/21 17:35> Social History Social History: Social History Household Members: None Housing: Apartment Do you presently have visiting nurse or other home services: Yes Alcohol intake: never Patient Tobacco Use Status: Current someday Tobacco user Cigarettes Per Day: 6 Years Smoked: 15 Second Hand Smoke Exposure: No Advance Directives: Yes Advance Directives on File: Yes Advance Directives Date on File: 12/10/20 service: No Current occupational status: disabled <NIEVES Araujo - Last Filed: 07/20/21 17:35> Physical Exam Vital Signs: Vital Signs: Last Vital Signs Temp 98 F 07/20/21 12:59 Pulse 78 07/20/21 12:59 Resp 19 07/20/21 12:59 BP 162/57 H 07/20/21 12:59 Pulse Ox 97 07/20/21 12:59 BMI result Body Mass Index 34.7 VSS <NIEVES Araujo - Last Filed: 07/20/21 17:35> Vital Signs: Last Vital Signs Temp 98 F 07/20/21 12:59 Pulse 78 07/20/21 12:59 Resp 19 07/20/21 12:59 BP 162/57 H 07/20/21 12:59 Pulse Ox 97 07/20/21 12:59 BMI result Body Mass Index 34.7 <Demetrio Weir MD - Last Filed: 07/20/21 17:43> Appearance: Alert.? Oriented X3.? No acute distress.? Head: Normocephalic, atraumatic, no step-offs or deformities Eyes: Pupils equal, round and reactive to light.? ENT: Pharynx normal.? Neck: Normal inspection.? Neck supple.? CVS: Normal heart rate and rhythm.? Pulses normal.? Respiratory: No respiratory distress.? Breath sounds normal.? Abdomen: Soft and nontender.? Skin: Skin warm and dry.? Normal skin color.? Normal skin turgor.?+ abscess to the right side of the scalp with surrounding induration Extremities: No lower extremity edema.? No calf ttp. 5/5 strength to bilateral upper and lower extremities Neuro: Oriented X 3.? No motor deficit.? No sensory deficit. <NIEVES Araujo - Last Filed: 07/20/21 17:35> Course Reevaluation(s) Reevaluation #1: I&D with a small amount of puss exposed from abscess surrounding area indurated and w/ erythema. Discussed this case with Dr. Weir, who recommends deeper incision and packing. CT head WNL Mastoid CT WNL. No mastoiditis. Will DC on doxy and kelfex. Comfortable with DC home. <NIEVES Araujo - Last Filed: 07/20/21 17:35> Time: 17:27 <NIEVES Araujo - Last Filed: 07/20/21 17:35> MDM - Wound/Laceration [facility] Narrative Medical decision making narrative: 1418 60 yo M presents with complaints of swelling/pain to the right side of the scalp, it appears to be an abscess. Upon physical examination there is an abscess noted to the right side of scalp. He reports pain with palpation of the preauricular and postauricular region. Bilateral tympanic membranes pearly white, no signs of infection. Plan is to obtain a CT to rule out mastoiditis. <NIEVES Araujo Last Filed: 07/20/21 17:35> 1418 60 yo M presents with complaints of swelling/pain to the right side of the scalp, it appears to be an abscess. Upon physical examination there is an abscess noted to the right side of scalp. He reports pain with palpation of the preauricular and postauricular region. Bilateral tympanic membranes pearly white, no signs of infection. Plan is to obtain a CT to rule out mastoiditis. Attending: Patient seen and evaluated by me. Patient had incision and drainage with some drainage of pus. Patient has been started on antibiotics and needs close follow-up, given his diabetes. No anterior neck involvement or concern for airway compromise <Demetrio Weir MD - Last Filed: 07/20/21 17:43> Medical Records Attestation: I reviewed the patient's medical records. <NIEVES Araujo - Last Filed: 07/20/21 17:35> Lab Data Attestation: I reviewed the patient's lab results. <NIEVES Araujo Last Filed: 07/20/21 17:35> Labs: Lab Results 07/20/21 Range/Units 14:06 Urine Color YELLOW Urine Appearance CLEAR Urine pH 7.5 (5.0-8.0) Ur Specific [place] 1.015 (1.005-1.025) Urine Protein 1+ H (NEG-TRACE) MG/DL Urine Glucose (UA) >=1000 H (NEG) MG/DL Urine Ketones NEG (NEG) MG/DL Urine Blood TRACE (NEG) Urine Nitrite NEG (NEG) Ur Leukocyte Esterase NEG (NEG) Urine RBC 1-4 (0) /HPF Urine WBC 0-2 (0-4) /HPF Ur Squamous Epith Cells NONE /LPF Urine Bacteria NONE /LPF <NIEVES Araujo - Last Filed: 07/20/21 17:35> Lab Results 07/20/21 Range/Units 14:06 Urine Color YELLOW Urine Appearance CLEAR Urine pH 7.5 (5.0-8.0) Ur Specific [place] 1.015 (1.005-1.025) Urine Protein 1+ H (NEG-TRACE) MG/DL Urine Glucose (UA) >=1000 H (NEG) MG/DL Urine Ketones NEG (NEG) MG/DL Urine Blood TRACE (NEG) Urine Nitrite NEG (NEG) Ur Leukocyte Esterase NEG (NEG) Urine RBC 1-4 (0) /HPF Urine WBC 0-2 (0-4) /HPF Ur Squamous Epith Cells NONE /LPF Urine Bacteria NONE /LPF <Demetrio Weir MD - Last Filed: 07/20/21 17:43> Imaging Data CT scan - head: Attestation: I personally reviewed and interpreted this imaging study as follows: <NIEVES Araujo - Last Filed: 07/20/21 17:35> Radiologist's impression: FINDINGS: There is no evidence of acute intracranial hemorrhage or territorial infarction. No abnormal mass effect or midline shift is seen. Roman to white matter differentiation is well preserved. No extra-axial fluid collections are identified. There is generalized global volume loss. There is moderate prominence of the ventricles and the sulci . There is mild hypodensity of the periventricular white matter due to chronic small vessel ischemic disease. There are vascular calcifications of the internal carotid arteries bilaterally. The osseous structures and soft tissues are normal. The mastoid air cells and visualized portions of the paranasal sinuses are well aerated. ? CT/CT head/brain wo con IMPRESSION: No acute intracranial pathology. <NIEVES Araujo - Last Filed: 07/20/21 17:35> Procedures Abscess I/D Site: scalp <NIEVES Araujo - Last Filed: 07/20/21 17:35> Side (if applicable): right <NIEVES Araujo - Last Filed: 07/20/21 17:35> Local Anesthetic: lidocaine 2% <NIEVES Araujo - Last Filed: 07/20/21 17:35> Amount of anesthesia used (mL): 6 <NIEVES Araujo - Last Filed: 07/20/21 17:35> Technique: incised with blade <NIEVES Araujo - Last Filed: 07/20/21 17:35> Amount of fluid expressed (mL): 5 <NIEVES Araujo - Last Filed: 07/20/21 17:35> Sent for culture/gram staining?: Yes <NIEVES Araujo - Last Filed: 07/20/21 17:35> Irrigation: Yes <NIEVES Araujo - Last Filed: 07/20/21 17:35> Packing used?: plain <NIEVES Araujo - Last Filed: 07/20/21 17:35> Critical Care Time Critical Care Time Critical Care Time: No <NIEVES Araujo - Last Filed: 07/20/21 17:35> Discharge Plan Discharge Clinical Impression: Abscess, Cellulitis <NIEVES Araujo - Last Filed: 07/20/21 17:35> Patient Disposition: Home, Self-Care <NIEVES Araujo - Last Filed: 07/20/21 17:35> Instructions: Abscess (ED) <NIEVES Araujo - Last Filed: 07/20/21 17:35> Additional Instructions: Take your medications as prescribed. If you were prescribed antibiotics today, it is important that you take your medication to their entirety, do not skip any doses, do not finish them early. Follow-up with your primary care provider this week. Allow the packing to fall off Return to the emergency department with new or worsening symptoms. In case of emergency call 911 [place] [facility] medicamentos seg?n lo prescrito. Si le recetaron antibi?ticos hoy, es importante que tome goddard medicamento en goddard totalidad, no se salte ninguna dosis, no los termine antes de tiempo. Soheila que se caiga el packing solo. Seguimiento con goddard proveedor de atenci?n primaria esta semana. Regrese al departamento de emergencias con s?ntomas nuevos o que empeoran. En garrett de emergencia llama al 911 <NIEVES Araujo - Last Filed: 07/20/21 17:35> Prescriptions: New doxycycline hyclate 100 mg capsule 100 mg PO BID 10 Days Qty: 20 RF: 0 cephalexin 500 mg tablet 500 mg PO Q6H 10 Days Qty: 40 RF: 0 No Action finasteride 5 mg tablet 5 mg PO DAILY 90 Days Qty: 90 RF: 3 polyvinyl alcohol [Artificial Tears (polyvin alc)] 1.4 % drops 1 drp ophthalmic (eye) BID RF: 0 metformin 850 mg tablet 850 mg PO BID RF: 0 Combivent Respimat 20-100 mcg/actuation mist 1 puff INHALATION QID PRN (Reason: Wheezing) RF: 0 cilostazol 100 mg tablet 100 mg PO BID RF: 0 atorvastatin 80 mg tablet 80 mg PO BEDTIME RF: 0 carvedilol 6.25 mg tablet 6.25 mg PO BID RF: 0 clopidogrel 75 mg tablet 75 mg PO BEDTIME RF: 0 aspirin 81 mg tablet,delayed release (DR/EC) 81 mg PO DAILY RF: 0 pantoprazole 20 mg tablet,delayed release (DR/EC) 20 mg PO DAILY RF: 0 lisinopril 40 mg tablet 1 tab PO BEDTIME RF: 0 insulin lispro [Humalog KwikPen Insulin] 100 unit/mL insulin pen 12 unit subcut TID PRN (Reason: Hypoglycemia) RF: 0 Lantus Solostar U-100 Insulin 100 unit/mL (3 mL) insulin pen 40 unit subcut BEDTIME RF: 0 doxycycline hyclate 100 mg tablet 100 mg PO BID Qty: 14 RF: 0 furosemide [Lasix] 20 mg tablet 20 mg PO DAILY Qty: 20 RF: 0 tamsulosin [Flomax] 0.4 mg capsule 0.4 mg PO DAILY 90 Days Qty: 90 RF: 2 <NIEVES Araujo - Last Filed: 07/20/21 17:35> Referrals: Loli Augustin MD [Primary Care Provider] - 2 days <NIEVES Araujo - Last Filed: 07/20/21 17:35> Stand Alone Forms: Work/School Release <NIEVES Araujo - Last Filed: 07/20/21 17:35>
[2021-07-20 14:24] LABS: WBC Urine 0-2 /HPF (0-4)
[2021-07-20] MEDS: Lidocaine HCl 2 % MPF 5 ML VIAL SUBCUT (14:53)
[2021-07-20] MEDS: Acetaminophen 325 MG TABLET 650 MG PO (15:35)
== END 2021-07-20 17:51 | disposition home or self-care (01) ==
PROVIDERS: Physician Assistant; Emergency Provider Emergency Medicine; PCP Family Medicine
DX: L02.811 Cutaneous abscess of head [any part, except face] (principal); L03.811 Cellulitis of head [any part, except face]; Z79.899 Other long term (current) drug therapy; F17.210 Nicotine dependence, cigarettes, uncomplicated; Z71.6 Tobacco abuse counseling
CPT/HCPCS: 10060; 70450; 70481; 81001; 87071; 87077; 87186; 87205; 96372; 99284

== ENCOUNTER 2021-12-16 21:20 | Emergency (ER) | payer MEDICAID, SELFPAY ==
--- NOTE | ~2021-12-16 | XR_ITS ---
EXAMINATION: XR CHEST CLINICAL INFORMATION: Shortness of breath. COMPARISON: 01/25/2021 chest radiographs. TECHNIQUE: Frontal view of the chest was obtained. FINDINGS: Mild prominence of pulmonary vasculature and cardiac silhouette appears similar to the previous study. The mediastinal structures are unremarkable. XR/XR chest 1V IMPRESSION: Mild prominence of pulmonary vasculature and cardiac silhouette is similar to the previous study and is likely baseline for the patient. Mild congestion cannot be excluded.
--- NOTE | 2021-12-16 21:34 | ED_ITS ---
HPI - SOB/Dyspnea General Chief Complaint: Dyspnea Stated Complaint: SOB Time Seen by Provider: 12/16/21 21:33 Source: patient History of Present Illness HPI Narrative: Patient's history of diabetes, asthma/COPD, hypertension comes here for increased shortness of breath and cough for last few days getting worse trying to use his inhaler without much response no fever no chills does have mucopurulent phlegm and increased leg swelling as usual in the past patient does get sick like this every now and then on arrival patient was saturating 96% on room Related Data Home Medications Medication Instructions Recorded Confirmed aspirin 81 mg tablet,delayed 81 mg PO DAILY 12/10/20 01/25/21 release atorvastatin 80 mg tablet 80 mg PO BEDTIME 12/10/20 01/25/21 carvedilol 6.25 mg tablet 6.25 mg PO BID 12/10/20 01/25/21 cilostazol 100 mg tablet 100 mg PO BID 12/10/20 01/25/21 clopidogrel 75 mg tablet 75 mg PO BEDTIME 12/10/20 01/25/21 insulin glargine 100 unit/mL (3 40 unit subcut BEDTIME 12/10/20 01/25/21 mL) subcutaneous pen (Lantus Solostar U-100 Insulin) insulin lispro 100 unit/mL 12 unit subcut TID PRN Hypoglycemia 12/10/20 01/25/21 subcutaneous pen (Humalog KwikPen (U-100) Insulin) ipratropium 20 mcg-albuterol 100 1 puff inhalation QID PRN Wheezing 12/10/20 01/25/21 mcg/actuation mist for inhalation (Combivent Respimat) lisinopril 40 mg tablet 1 tab PO BEDTIME 12/10/20 01/25/21 metformin 850 mg tablet 850 mg PO BID 12/10/20 01/25/21 pantoprazole 20 mg tablet,delayed 20 mg PO DAILY 12/10/20 01/25/21 release polyvinyl alcohol 1.4 % eye drops 1 drp ophthalmic (eye) BID 12/10/20 01/25/21 (Artificial Tears (polyvinyl alcohol)) Previous Rx's Medication Instructions Recorded doxycycline hyclate 100 mg tablet 100 mg PO BID #14 tabs 12/16/20 furosemide 20 mg tablet (Lasix) 20 mg PO DAILY #20 tabs 01/25/21 finasteride 5 mg tablet 5 mg PO DAILY 90 days #90 tabs 05/12/21 tamsulosin 0.4 mg capsule (Flomax) 0.4 mg PO DAILY 90 days #90 caps 06/04/21 cephalexin 500 mg tablet 500 mg PO Q6H 10 days #40 tabs 07/20/21 doxycycline hyclate 100 mg capsule 100 mg PO BID 10 days #20 caps 07/20/21 amoxicillin 875 mg-potassium 1 tab PO BID #20 tabs 12/17/21 clavulanate 125 mg tablet furosemide 40 mg tablet (Lasix) 40 mg PO QAM #20 tabs 12/17/21 prednisone 20 mg tablet 40 mg PO DAILY #10 tabs 12/17/21 Allergies Allergy/AdvReac Type Severity Reaction Status Date / Time No Known Drug Allergies Allergy Unknown UNKNOWN Verified 06/04/21 13:00 Review of Systems Review of Systems: Yes all other systems are reviewed and are negative [facility] Past Medical History Medical History Abscess, perineum Asthma Diabetes High cholesterol HTN (hypertension) Surgical History Hx of varicose vein stripping S/P angiogram of extremity Family History Family History Father No problems noted. Mother Diabetes HTN (hypertension) Sister No problems noted. Sister Diabetes HTN (hypertension) Sister No problems noted. Social History Social History Household Members: None Housing: Apartment Do you presently have visiting nurse or other home services: Yes Alcohol intake: never Patient Tobacco Use Status: Current someday Tobacco user Cigarettes Per Day: 6 Years Smoked: 15 Second Hand Smoke Exposure: No Advance Directives: Yes Advance Directives on File: Yes Advance Directives Date on File: 12/10/20 service: No Current occupational status: disabled Physical Exam Vital Signs: Vital Signs: Last Vital Signs Temp 97.6 F 12/16/21 22:31 Pulse 78 12/17/21 00:59 Resp 19 12/17/21 00:59 BP 162/82 H 12/17/21 00:59 Pulse Ox 95 12/17/21 00:59 O2 Del Method 12/17/21 00:59 BMI result Body Mass Index 41.5 Appearance: Alert. Oriented X3. In mild respiratory distress Eyes: No pallor ENT: Pharynx normal. Oral Mucosa moist Neck: Normal inspection. Neck supple. CVS: Normal heart rate and rhythm. Pulses normal. Respiratory: Mild respiratory distress. Equal air entry bilateral, bilateral wheezing and rhonchi no rales Abdomen: Soft and nontender. Bowel sounds are present, no mass palpable, no CVA tenderness Skin: Skin warm and dry. Normal skin color. Normal skin turgor. Extremities:2+ lower extremity edema. No calf tenderness Neuro: Oriented X 3. No motor deficit. 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 Patient has noted during daytime and fall sleep all the time. Patient responded to nebulizing treatment. Will increase the dose of furosemide to 40 mg daily and will give antibiotics Augmentin and prednisone advised to follow up with neurologist patient saturating 97% on room air Differential Diagnosis Differential diagnosis: Likely acute exacerbation of chronic obstructive airways disease, congestive heart failure, pneumonia and asthma with exacerbation Lab Data Attestation: I reviewed the patient's lab results. Result diagrams: 12/16/21 22:42 12/16/21 22:42 Labs: Lab Results 12/16/21 12/16/21 12/16/21 Range/Units 22:42 22:42 22:42 WBC 15.7 H (4.8-10.8) X10*3/uL RBC 4.71 (4.60-5.80) X10*6/uL Hgb 14.2 (14.0-18.0) g/dl Hct 43.3 (42.0-52.0) % MCV 91.9 (80.0-98.0) fL MCH 30.1 (27.0-33.0) pg MCHC 32.8 (31.0-36.0) g/dl RDW 13.5 (11.0-16.0) % Plt Count 212 (160-400) X10*3/uL MPV 10.5 (9.4-12.4) fL Immature Gran % (Auto) 0.3 (0.0-0.4) % Neut % (Auto) 74.1 H (45-73) % Lymph % (Auto) 11.9 L (20-40) % [place] % (Auto) 6.3 (2-11) % Eos % (Auto) 6.7 H (0-4) % Baso % (Auto) 0.7 (0-2) % Lymph # (Auto) 1.9 (1.2-4.9) X10*3/uL [place] # (Auto) 1.0 (0.1-1.2) X10*3/uL Eos # (Auto) 1.1 H (0.0-0.4) X10*3/uL Baso # (Auto) 0.1 (0.0-0.2) X10*3/uL Abs Immat Gran (auto) 0.05 H (0.00-0.03) X10*3/uL Absolute Neuts (auto) 11.6 H (2.0-8.3) x10*3/uL Absolute Nucleated RBC 0.000 (0.0-0.012) X10*3/uL Nucleated RBC % (auto) 0.0 (0.0-0.2) /100WBC PT 15.3 H (9.9-13.0) SEC INR 1.3 H (0.9-1.1) Sodium 133 L (135-145) mmol/L Potassium 4.6 (3.3-5.1) mmol/L Chloride 101 (96-108) mmol/L Carbon Dioxide 24 (22-29) mmol/L Anion Gap 13 (12-20) BUN 14 (9-16) mg/dL Creatinine 0.84 (0.5-1.4) mg/dL Estim Creat Clear Calc 104.7 Estimated GFR > 60 Random Glucose 211 H (60-115) mg/dL Calcium 9.0 (8.4-10.2) mg/dL Total Bilirubin 0.8 (0.0-1.0) mg/dL AST 32 D (5-37) U/L ALT 34 (0-40) U/L Alkaline Phosphatase 62 (39-117) U/L Troponin I High Sens (<3.5-35.0) ng/L B-Natriuretic Peptide (<100) pg/mL Total Protein 7.1 (6.5-8.0) g/dL Albumin 4.1 (3.5-5.0) g/dL COVID-19 (EVIE) (Negative) COVID-19 Clin Com 12/16/21 12/16/21 12/16/21 Range/Units 22:42 22:42 22:42 WBC (4.8-10.8) X10*3/uL RBC (4.60-5.80) X10*6/uL Hgb (14.0-18.0) g/dl Hct (42.0-52.0) % MCV (80.0-98.0) fL MCH (27.0-33.0) pg MCHC (31.0-36.0) g/dl RDW (11.0-16.0) % Plt Count (160-400) X10*3/uL MPV (9.4-12.4) fL Immature Gran % (Auto) (0.0-0.4) % Neut % (Auto) (45-73) % Lymph % (Auto) (20-40) % [place] % (Auto) (2-11) % Eos % (Auto) (0-4) % Baso % (Auto) (0-2) % Lymph # (Auto) (1.2-4.9) X10*3/uL [place] # (Auto) (0.1-1.2) X10*3/uL Eos # (Auto) (0.0-0.4) X10*3/uL Baso # (Auto) (0.0-0.2) X10*3/uL Abs Immat Gran (auto) (0.00-0.03) X10*3/uL Absolute Neuts (auto) (2.0-8.3) x10*3/uL Absolute Nucleated RBC (0.0-0.012) X10*3/uL Nucleated RBC % (auto) (0.0-0.2) /100WBC PT (9.9-13.0) SEC INR (0.9-1.1) Sodium (135-145) mmol/L Potassium (3.3-5.1) mmol/L Chloride (96-108) mmol/L Carbon Dioxide (22-29) mmol/L Anion Gap (12-20) BUN (9-16) mg/dL Creatinine (0.5-1.4) mg/dL Estim Creat Clear Calc Estimated GFR Random Glucose (60-115) mg/dL Calcium (8.4-10.2) mg/dL Total Bilirubin (0.0-1.0) mg/dL AST (5-37) U/L ALT (0-40) U/L Alkaline Phosphatase (39-117) U/L Troponin I High Sens 12.5 (<3.5-35.0) ng/L B-Natriuretic Peptide 566 H (<100) pg/mL Total Protein (6.5-8.0) g/dL Albumin (3.5-5.0) g/dL COVID-19 (EVIE) Negative (Negative) COVID-19 Clin Com See Note ECG Data Attestation: I personally reviewed and interpreted this ECG as follows: Interpretation: Normal sinus rhythm heart rate 85 beats per minute left axis deviation LVH no acute ST-T changes no acute ischemia Discharge Plan Discharge Clinical Impression: Asthma with exacerbation, Obstructive sleep apnea, Acute bronchitis Patient Disposition: Home, Self-Care Instructions: Asthma (ED), Sleep Apnea (DC), Acute Bronchitis (ED) Additional Instructions: Stop smoking Continue use your inhaler Take prednisone as prescribed Increase furosemide to 40 mg daily Antibiotics as advised Follow-up with air and water tester for further evaluation including sleep studies Soheila de fumar Contin?e usando goddard inhalador [place] la prednisona seg?n lo prescrito Aumentar furosemida a 40 mg diarios Antibi?ticos seg?n lo recomendado Seguimiento con un neum?logo para berry evaluaci?n adicional, incluidos estudios del claudio?o. Prescriptions: New prednisone 20 mg tablet 40 mg PO DAILY Qty: 10 0RF amoxicillin-pot clavulanate 875-125 mg tablet 1 tab PO BID Qty: 20 0RF furosemide [Lasix] 40 mg tablet 40 mg PO QAM Qty: 20 0RF No Action finasteride 5 mg tablet 5 mg PO DAILY 90 Days Qty: 90 3RF polyvinyl alcohol [Artificial Tears (polyvin alc)] 1.4 % drops 1 drp ophthalmic (eye) BID metformin 850 mg tablet 850 mg PO BID Combivent Respimat 20-100 mcg/actuation mist 1 puff INHALATION QID PRN (Reason: Wheezing) cilostazol 100 mg tablet 100 mg PO BID atorvastatin 80 mg tablet 80 mg PO BEDTIME carvedilol 6.25 mg tablet 6.25 mg PO BID clopidogrel 75 mg tablet 75 mg PO BEDTIME aspirin 81 mg tablet,delayed release (DR/EC) 81 mg PO DAILY pantoprazole 20 mg tablet,delayed release (DR/EC) 20 mg PO DAILY lisinopril 40 mg tablet 1 tab PO BEDTIME insulin lispro [Humalog KwikPen Insulin] 100 unit/mL insulin pen 12 unit subcut TID PRN (Reason: Hypoglycemia) Lantus Solostar U-100 Insulin 100 unit/mL (3 mL) insulin pen 40 unit subcut BEDTIME doxycycline hyclate 100 mg tablet 100 mg PO BID Qty: 14 0RF furosemide [Lasix] 20 mg tablet 20 mg PO DAILY Qty: 20 0RF doxycycline hyclate 100 mg capsule 100 mg PO BID 10 Days Qty: 20 0RF cephalexin 500 mg tablet 500 mg PO Q6H 10 Days Qty: 40 0RF tamsulosin [Flomax] 0.4 mg capsule 0.4 mg PO DAILY 90 Days Qty: 90 2RF Referrals: Kike Smith MD [Physician] - 1 week Print Language: Estonian
[2021-12-16 21:41] VITALS: BP 185/82; BP 185/83; PULSE 95; PULSE 99; RESP 24; TEMP 36.8; O2SAT 94; O2SAT 96; BMI 41.5
--- NOTE | 2021-12-16 21:41 | ECG_ITS ---
Test Reason : SOB Blood Pressure : / mmHG Vent. Rate : 085 BPM Atrial Rate : 085 BPM P-R Int : 180 ms QRS Dur : 122 ms QT Int : 412 ms P-R-T Axes : 069 -35 114 degrees QTc Int : 490 ms Normal sinus rhythm Possible Left atrial enlargement Left axis deviation Left ventricular hypertrophy with QRS widening and repolarization abnormality ( R in aVL , [place] product ) Cannot rule out Inferior infarct (cited on or before 10-DEC-2020) Abnormal ECG When compared with ECG of 25-JAN-2021 15:46, Premature atrial complexes are no longer Present Referred By: Hugh Reyes Electronically Signed By:GLEN JAIN MD
[2021-12-16] MEDS: Albuterol/Iprat 2.5/0.5MG 3 ML AMPUL.NEB INHALE (21:55)
[2021-12-16] MEDS: Albuterol Sulfate (0.083%) 2.5 MG/3 ML VIAL.NEB 5 MG INHALE ×2 (21:55→23:36)
[2021-12-16 21:56] VITALS: PULSE 87; RESP 21; O2SAT 96
[2021-12-16 22:31] VITALS: BP 154/57; PULSE 83; RESP 16; TEMP 36.4; O2SAT 97
[2021-12-16 22:48] LABS: MANUAL DIFF FLAG NO
[2021-12-16 22:52] LABS: Basophils Absolute Auto 0.1 X10*3/uL (0.0-0.2); Basophils Percent Auto 0.7 % (0-2); Eosinophils Absolute Auto 1.1 X10*3/uL (0.0-0.4); Eosinophils Percent Auto 6.7 % (0-4); Hematocrit 43.3 % (42.0-52.0); Hemoglobin 14.2 g/dl (14.0-18.0); Imm Gran Abs Auto 0.05 X10*3/uL (0.00-0.03); Imm Gran Pct Auto 0.3 % (0.0-0.4); Lymphocytes Absolute Auto 1.9 X10*3/uL (1.2-4.9); Lymphocytes Percent Auto 11.9 % (20-40); Mean Corpuscular HGB Conc 32.8 g/dl (31.0-36.0); Mean Corpuscular Hemoglobin 30.1 pg (27.0-33.0); Mean Corpuscular Volume 91.9 fL (80.0-98.0); Mean Platelet Volume 10.5 fL (9.4-12.4); Monocytes Percent Auto 6.3 % (2-11); Neutrophils Absolute Auto 11.6 x10*3/uL (2.0-8.3); Neutrophils Percent Auto 74.1 % (45-73); Platelet Count 212 X10*3/uL (160-400); Red Blood Count 4.71 X10*6/uL (4.60-5.80); Red Cell Distribution Width 13.5 % (11.0-16.0); White Blood Count 15.7 X10*3/uL (4.8-10.8)
[2021-12-16 22:57] LABS: INTERNATIONAL NORM RATIO 1.3 (0.9-1.1); Prothrombin Time 15.3 SEC (9.9-13.0)
[2021-12-16 23:04] LABS: COVID-19 Test Negative (Negative); IDNOW Serial# 08D9AD1C
[2021-12-16 23:06] LABS: Alanine Aminotransferase 34 U/L (0-40); Albumin Level 4.1 g/dL (3.5-5.0); Alkaline Phosphatase 62 U/L (39-117); Anion Gap 13 (12-20); Aspartate Amino Transferase 32 U/L (5-37); Bilirubin Total 0.8 mg/dL (0.0-1.0); Blood Urea Nitrogen 14 mg/dL (9-16); Carbon Dioxide 24 mmol/L (22-29); Chloride 101 mmol/L (96-108); Creatinine Clr Calc Pharmacy 104.7; Estimated Glomerular Filt Rate > 60; Glucose Random 211 mg/dL (60-115); Potassium 4.6 mmol/L (3.3-5.1); Sodium 133 mmol/L (135-145); Total Protein 7.1 g/dL (6.5-8.0)
[2021-12-16 23:12] LABS: B Type Natriuretic Peptide 566 pg/mL (<100); Troponin-I High Sensitivity 12.5 ng/L (<3.5-35.0)
[2021-12-17] MEDS: Amoxicillin/Potassium Clav 875 MG TABLET PO (00:11)
[2021-12-17] MEDS: methylPREDNISolone Sod Succ 125 MG/2 ML VIAL IVPUSH (00:11)
[2021-12-17 00:59] VITALS: BP 162/82; PULSE 78; RESP 19; O2SAT 95
== END 2021-12-17 02:16 | disposition home or self-care (01) ==
PROVIDERS: Emergency Provider Internal Medicine; PCP Family Medicine
DX: J20.9 Acute bronchitis, unspecified (principal); J45.901 Unspecified asthma with (acute) exacerbation; G47.33 Obstructive sleep apnea (adult) (pediatric); R06.02 Shortness of breath; Z20.822 Contact with and (suspected) exposure to COVID-19; E11.9 Type 2 diabetes mellitus without complications; I10 Essential (primary) hypertension; F17.200 Nicotine dependence, unspecified, uncomplicated; Z79.82 Long term (current) use of aspirin; Z79.02 Long term (current) use of antithrombotics/antiplatelets; Z79.4 Long term (current) use of insulin
CPT/HCPCS: 36415; 71045; 80053; 83880; 84484; 85025; 85610; 87635; 93005; 94640; 94644; 96374; 99283; 99285; J2930

== ENCOUNTER → 2022-02-18 09:05 | Outpatient (BNVA) | payer MEDICAID, SELFPAY | PROVIDERS: PCP Family Medicine; Referring Provider Family Medicine; Visit Provider Internal Medicine | DX: I42.9 Cardiomyopathy, unspecified (principal); R06.02 Shortness of breath; E11.8 Type 2 diabetes mellitus with unspecified complications; I10 Essential (primary) hypertension; I73.9 Peripheral vascular disease, unspecified; F17.200 Nicotine dependence, unspecified, uncomplicated; Z95.820 Peripheral vascular angioplasty status with implants and grafts | CPT/HCPCS: 99202 ==

== ENCOUNTER → 2022-04-09 13:08 | Outpatient (REF) | payer MEDICAID, SELFPAY ==
--- NOTE | 2022-04-09 13:27 | CA_ITS ---
Transthoracic Echocardiogram Patient (Last, First, Middle): Reji Trejo A Gender: Male Date of : 1960 Age: 61 Procedure Date: 04/09/2022 Procedure Type: Transthoracic Echocardiogram Location: OP Height: 167.64 cm Weight: 97.52 kg BSA: 2.06 m2 Heart Rate: 66 bpm BP: 120 / 60 mmHg Softlines Supervisor: STAS Squires MD: Nikko Johnson MD Bread Distributor: Alexis Gipson MD Symptoms: R06.02 - Shortness of breath Study Quality: Fair ECG Rhythm: Sinus Conclusions: - 1. Severely dilated left ventricle with severely reduced LV ejection fraction 20-25% with grade 2 diastolic dysfunction with underlying regional wall motion abnormality suggestive of ischemic cardiomyopathy 2. Mild mitral regurgitation 3. Normal RV systolic pressure 4. No gross pericardial effusion Findings Procedure Information Contrast agent, definity, is being given per protocol without apparent complications. Left Ventricle Severely increased left ventricular cavity size. There is mildly increased left ventricular wall thickness. The left ventricular systolic function is severely decreased. The visually estimated ejection fraction is between 20 25%. Spectral Doppler is indicative of a pseudonormal filling pattern. E/E prime ratio is >15, consistent with elevated filling pressures. Evidence suggests grade II (moderate) diastolic dysfunction. Wall Motion Rest Echo Findings The anterior wall, entire lateral wall, the apex, basal anteroseptal, and mid anteroseptal segments are hypokinetic. The inferoseptal wall, inferior wall, and apical septum segment are akinetic. Right Ventricle Normal right ventricular cavity size. There is low normal right ventricular systolic function. Atria The left atrium is moderately dilated. Interatrial shunt cannot be excluded. The right atrium is mildly dilated. Aortic Valve The aortic valve was not well visualized. There is no aortic valve stenosis. There is no aortic valve regurgitation. Mitral Valve There is mild anterior and posterior mitral leaflet thickening. The anterior mitral leaflet has restricted mobility and the posterior mitral leaflet has restricted mobility. There is mild mitral valve regurgitation. There is no mitral valve stenosis. Pulmonic Valve The pulmonic valve was not well visualized. Tricuspid Valve Likely normal tricuspid valve structure and function. There is mild tricuspid valve regurgitation. The right ventricular systolic pressure is normal. The right ventricular systolic pressure is 35 mmHg. Normal right atrial pressure. There is no evidence of pulmonary hypertension. Great Vessels All visible segments of the aorta are normal in size. The pulmonary artery was not well visualized. Venous The inferior vena cava is normal in size and collapses greater than 50% with inspiration. Pericardium/Pleural There is no evidence of pericardial effusion. Prior Study Comparison Significant changes compared to prior study dated: 07/19/2006. LV systolic function significantly reduced Measurements 2D Linear Measurements IVSd: 1.28 0.6-0.9/0.6-1.0 cm LVIDd: 6.75 3.9-5.3/4.2-5.9 cm LVIDd Index: 3.28 2.4-3.2/2.2-3.1 cm/m2 LVIDs: 5.48 2.0-3.6 cm LVPWd: 1.14 0.7-1.1 cm LA Diam: 5.10 2.7-3.8/3.0-4.0 cm LAIDs Index: 2.48 1.5-2.3 cm/m2 LV Mass: 482.09 67-162/88-224 g LV Mass Index: 234.02 43-95/49-115 g/m2 LVOT Diam: 2.10 3.0+(-)1.3 cm 2D Systolic Function EF 4C: 23.00 >55% EF 2C: 18.30 >55% EF BiP: 20.40 >55% Mitral Valve MV Pk E: 1.09 MV PK A: 0.63 MV Decel Time: 157.00 E/A: 1.70 E'Lateral: 3.08 E'Medial: 3.00 E/E' Med: 36.30 E/E' Lat: 35.40 PHT: 46.00 MVA PHT: 4.78 Decel Dimmit: 6.92 Aortic Valve AoV Pk Karan: 1.35 AoV Mn Karan: 0.92 AoV VTI: 0.28 AoV Pk Grad: 7.00 Aov Mn Grad: 4.00 NANY Cont.VTI: 1.90 LVOT LVOT Pk Karan: 0.74 LVOT Mn Karan: 0.50 LVOT VTI: 0.16 LVOT Pk Grad: 2.00 LVOT Mn Grad: 1.00 LVOT Diam: 2.10 LVOT Area: 3.46 Diastolic Function MV Pk E: 1.09 MV Pk A: 0.63 E/A: 1.70 E'Medial: 3.00 E/E' Med: 36.30 E' Laterial: 3.08 E/E' Lat: 35.40 Right Ventricle TAPSE (mm): 16.90 TVS' Karan: 10.10 Tricuspid Valve TR Pk Karan: 2.61 TR Pk Grad: 27.00 RA Press: 8.00 RVSP: 35.00 Great Vessels Aorta Sinus of Valsalva: 3.00 2.0-3.5 cm Ao Asc: 3.00 2.1-3.4 cm Pulmonary Valve PV Pk Karan: 0.94 Peak PV Grad: 4.00 Updated in Other Vendor System with Status of Final Alexis Gipson MD electronically signed on 04/10/2022 2:57:37 PM with status of Final
== END ==
LOC: HO.CARD 13:08
PROVIDERS: Visit Provider Internal Medicine
DX: I42.9 Cardiomyopathy, unspecified (principal); R06.02 Shortness of breath
CPT/HCPCS: 93306; Q9957

== ENCOUNTER 2022-04-16 09:04 | Outpatient (REF) | payer MEDICAID, SELFPAY ==
--- NOTE | ~2022-04-16 | US_ITS ---
EXAMINATION: NONINVASIVE ASSESSMENT OF THE ARTERIES OF BOTH LOWER EXTREMITIES Cristian Li MD CLINICAL INFORMATION: Claudication noted at the time of the prior study. TECHNIQUE: Bilateral lower extremity duplex ultrasound was performed with velocity measurements and waveform analysis in the common femoral arteries, profunda femoris arteries, proximal mid and distal superficial femoral arteries, popliteal arteries and tibial vessels. This study was performed only at rest. COMPARISON: Lower extremity arterial study 09/24/2020, CT of the abdomen and pelvis 01/25/2021. FINDINGS: Velocities in cm/sec and phasicity as well as the presence of plaque are reported below. RIGHT LEG: STEPHANIE: 0.54 (previously 0.50) PVR tracing at ankle, blunted Common Femoral: 136 Profunda Femoris: 106 Proximal SFA: Occluded Mid SFA: Occluded Distal SFA: Occluded Popliteal: 48 Tibial: 16 LEFT LEG: STEPHANIE: 0.61 (previously 0.71) PVR tracing at ankle, blunted Common Femoral: 292 Profunda Femoris: 220 Proximal SFA: 138 Mid SFA: Occluded stent Distal SFA: 61 Popliteal: 44 Tibial: 22 US/US STEPHANIE complete IMPRESSION: The study is grossly abnormal with monophasic flow throughout the lower extremities and occluded bilateral SFA stents. Findings are similar to those on the 09/24/2020 study. The iliac stent seen on the prior 01/25/[address] scan, cannot be evaluated. Aortoiliac inflow disease is suspected as well, as can be seen on the prior CT of the abdomen and pelvis.
--- NOTE | ~2022-04-16 | US_ITS ---
EXAMINATION: NONINVASIVE ASSESSMENT OF THE ARTERIES OF BOTH LOWER EXTREMITIES Cristian Li MD CLINICAL INFORMATION: Claudication noted at the time of the prior study. TECHNIQUE: Bilateral lower extremity duplex ultrasound was performed with velocity measurements and waveform analysis in the common femoral arteries, profunda femoris arteries, proximal mid and distal superficial femoral arteries, popliteal arteries and tibial vessels. This study was performed only at rest. COMPARISON: Lower extremity arterial study 09/24/2020, CT of the abdomen and pelvis 01/25/2021. FINDINGS: Velocities in cm/sec and phasicity as well as the presence of plaque are reported below. RIGHT LEG: STEPHANIE: 0.54 (previously 0.50) PVR tracing at ankle, blunted Common Femoral: 136 Profunda Femoris: 106 Proximal SFA: Occluded Mid SFA: Occluded Distal SFA: Occluded Popliteal: 48 Tibial: 16 LEFT LEG: STEPHANIE: 0.61 (previously 0.71) PVR tracing at ankle, blunted Common Femoral: 292 Profunda Femoris: 220 Proximal SFA: 138 Mid SFA: Occluded stent Distal SFA: 61 Popliteal: 44 Tibial: 22 US/US arterial duplex LE BI IMPRESSION: The study is grossly abnormal with monophasic flow throughout the lower extremities and occluded bilateral SFA stents. Findings are similar to those on the 09/24/2020 study. The iliac stent seen on the prior 01/25/[address] scan, cannot be evaluated. Aortoiliac inflow disease is suspected as well, as can be seen on the prior CT of the abdomen and pelvis.
== END 2022-04-16 09:05 | disposition home or self-care (01) ==
LOC: HO.US 09:04
PROVIDERS: Visit Provider Surgery Vascular Surgery
DX: I70.213 Atherosclerosis of native arteries of extremities with intermittent claudication, bilateral legs (principal)
CPT/HCPCS: 93923; 93925

== ENCOUNTER 2022-04-23 08:56 | Outpatient (REF) | payer MEDICAID, SELFPAY ==
[2022-04-23 10:45] LABS: Hematocrit 46.1 % (42.0-52.0); Hemoglobin 14.5 g/dl (14.0-18.0); Mean Corpuscular HGB Conc 31.5 g/dl (31.0-36.0); Mean Corpuscular Volume 95.2 fL (80.0-98.0); Mean Platelet Volume 11.6 fL (9.4-12.4); Platelet Count 186 X10*3/uL (160-400); Red Blood Count 4.84 X10*6/uL (4.60-5.80); Red Cell Distribution Width 13.7 % (11.0-16.0)
[2022-04-23 10:49] LABS: INTERNATIONAL NORM RATIO 1.2 (0.9-1.1); Prothrombin Time 13.7 SEC (10.0-13.1)
[2022-04-23 11:15] LABS: Anion Gap 19 (12-20); Blood Urea Nitrogen 15 mg/dL (9-16); Calcium 9.8 mg/dL (8.4-10.2); Carbon Dioxide 25 mmol/L (22-29); Chloride 103 mmol/L (96-108); Estimated Glomerular Filt Rate > 60; Glucose Random 236 mg/dL (60-115); Potassium 5.4 mmol/L (3.3-5.1); Sodium 142 mmol/L (135-145)
== END 2022-04-23 08:57 | disposition home or self-care (01) ==
LOC: HO.LAB 08:56
PROVIDERS: PCP Family Medicine; Visit Provider Internal Medicine
DX: I25.10 Atherosclerotic heart disease of native coronary artery without angina pectoris (principal)
CPT/HCPCS: 36415; 80048; 85027; 85610

== ENCOUNTER 2022-06-11 08:26 | Outpatient (REF) | payer MEDICAID, SELFPAY ==
[2022-06-11 09:21] LABS: Hematocrit 47.2 % (42.0-52.0); Mean Corpuscular HGB Conc 31.8 g/dl (31.0-36.0); Mean Corpuscular Hemoglobin 29.4 pg (27.0-33.0); Mean Corpuscular Volume 92.5 fL (80.0-98.0); Mean Platelet Volume 10.5 fL (9.4-12.4); Platelet Count 230 X10*3/uL (160-400); Red Cell Distribution Width 14.1 % (11.0-16.0); White Blood Count 8.1 X10*3/uL (4.8-10.8)
[2022-06-11 09:26] LABS: INTERNATIONAL NORM RATIO 1.3 (0.9-1.1); Prothrombin Time 14.8 SEC (10.0-13.1)
[2022-06-11 09:55] LABS: Anion Gap 13 (12-20); Blood Urea Nitrogen 13 mg/dL (9-16); Calcium 9.3 mg/dL (8.4-10.2); Carbon Dioxide 27 mmol/L (22-29); Chloride 102 mmol/L (96-108); Estimated Glomerular Filt Rate > 60; Glucose Random 149 mg/dL (60-115); Potassium 5.3 mmol/L (3.3-5.1); Sodium 137 mmol/L (135-145)
[2022-06-11 10:17] LABS: PSA,Total (Free>4and<10) 2.14 ng/mL (0.00-4.00)
== END 2022-06-11 08:27 | disposition home or self-care (01) ==
LOC: HO.LAB 08:26
PROVIDERS: Urology; PCP Family Medicine; Visit Provider Internal Medicine
DX: Z12.5 Encounter for screening for malignant neoplasm of prostate (principal); N13.8 Other obstructive and reflux uropathy; N40.1 Benign prostatic hyperplasia with lower urinary tract symptoms; E11.9 Type 2 diabetes mellitus without complications; I10 Essential (primary) hypertension; I73.9 Peripheral vascular disease, unspecified
CPT/HCPCS: 36415; 80048; 84153; 85027; 85610; 99212

== ENCOUNTER → 2022-07-02 11:57 | Outpatient (BNVA) | payer MEDICAID, SELFPAY | PROVIDERS: PCP Family Medicine; Referring Provider Family Medicine; Visit Provider Nurse Practitioner Family | DX: I42.9 Cardiomyopathy, unspecified (principal); R06.02 Shortness of breath; I25.10 Atherosclerotic heart disease of native coronary artery without angina pectoris; I10 Essential (primary) hypertension; Z98.890 Other specified postprocedural states | CPT/HCPCS: 99212 ==

== ENCOUNTER 2022-08-12 08:55 | Outpatient (REF) | payer MEDICAID, SELFPAY ==
[2022-08-12 10:14] LABS: Anion Gap 17 (12-20); Blood Urea Nitrogen 14 mg/dL (9-16); Calcium 9.7 mg/dL (8.4-10.2); Carbon Dioxide 23 mmol/L (22-29); Chloride 102 mmol/L (96-108); Estimated Glomerular Filt Rate > 60; Glucose Random 188 mg/dL (60-115); Potassium 4.9 mmol/L (3.3-5.1); Sodium 137 mmol/L (135-145)
[2022-08-12 10:15] LABS: B Type Natriuretic Peptide 382 pg/mL (<100)
== END 2022-08-12 08:56 | disposition home or self-care (01) ==
LOC: HO.LAB 08:55
PROVIDERS: PCP Family Medicine; Visit Provider Nurse Practitioner Family
DX: I42.9 Cardiomyopathy, unspecified (principal)
CPT/HCPCS: 36415; 80048; 83880

== ENCOUNTER → 2022-08-18 13:08 | Outpatient (BNVA) | payer MEDICAID, SELFPAY | PROVIDERS: PCP Family Medicine; Referring Provider Family Medicine; Visit Provider Nurse Practitioner Family | DX: I42.9 Cardiomyopathy, unspecified (principal); I10 Essential (primary) hypertension; I25.10 Atherosclerotic heart disease of native coronary artery without angina pectoris; R06.02 Shortness of breath; Z79.899 Other long term (current) drug therapy; Z98.890 Other specified postprocedural states | CPT/HCPCS: 93005; 99212 ==

== ENCOUNTER 2022-08-27 08:05 | Outpatient (RCR) | payer MEDICAID, SELFPAY | END 2022-12-21 16:14 | disposition home or self-care (01) | LOC: HO.WCC 08:05 | PROVIDERS: PCP Family Medicine; Visit Provider Surgery | DX: E11.622 Type 2 diabetes mellitus with other skin ulcer (principal); L97.812 Non-pressure chronic ulcer of other part of right lower leg with fat layer exposed; I70.238 Atherosclerosis of native arteries of right leg with ulceration of other part of lower leg; E11.52 Type 2 diabetes mellitus with diabetic peripheral angiopathy with gangrene; F17.210 Nicotine dependence, cigarettes, uncomplicated; I10 Essential (primary) hypertension | CPT/HCPCS: 11042; 11043; 11045; 11046; 99213; 99214 ==

== ENCOUNTER → 2022-08-31 10:06 | Outpatient (REF) | payer MEDICAID, SELFPAY ==
--- NOTE | 2022-08-31 10:11 | CA_ITS ---
Transthoracic Echocardiogram/Limited Patient (Last, First, Middle): Reji Trejo A Gender: Male Date of : 1960 Age: 61 Procedure Date: 08/31/2022 Procedure Type: Transthoracic Echocardiogram/Limited Location: OP Height: 167.64 cm Weight: 98.88 kg BSA: 2.07 m2 Heart Rate: 75 bpm BP: 120 / 70 mmHg Airborne Electronics Analyst: STAS Squires MD: Ashlie Odonnell [employer] SERVICE TECHNICIAN-C Morning Nanny: Alexis Gipson MD Symptoms: I42.9 - Cardiomyopathy, unspecified Study Quality: Adequate/Contrast ECG Rhythm: Sinus Conclusions: - Moderately dilated left ventricle with severe LV systolic dysfunction with LVEF of 20-25% with grade 3 diastolic dysfunction Findings Procedure Information Contrast agent, definity, is being given per protocol without apparent complications. Left Ventricle Moderately increased left ventricular cavity size. There is mildly increased left ventricular wall thickness. The left ventricular systolic function is severely decreased. The visually estimated ejection fraction is between 20 25%. There is severe global hypokinesis. Spectral Doppler is indicative of a restrictive filling pattern. E/E prime ratio is >15, consistent with elevated filling pressures. Evidence suggests grade III (severe) diastolic dysfunction. Pericardium/Pleural There is no evidence of pericardial effusion. Prior Study Comparison No significant change compared to prior study dated: 04/09/2022. Measurements 2D Linear Measurements IVSd: 1.33 0.6-0.9/0.6-1.0 cm LVIDd: 6.79 3.9-5.3/4.2-5.9 cm LVIDd Index: 3.28 2.4-3.2/2.2-3.1 cm/m2 LVIDs: 6.00 2.0-3.6 cm LVPWd: 1.23 0.7-1.1 cm LV Mass: 524.53 67-162/88-224 g LV Mass Index: 253.40 43-95/49-115 g/m2 LVOT Diam: 1.90 3.0+(-)1.3 cm 2D Systolic Function EF 4C: 22.40 >55% EF 2C: 19.80 >55% EF BiP: 21.70 >55% Mitral Valve MV Pk E: 1.16 MV PK A: 0.57 MV Decel Time: 149.00 E/A: 2.00 E'Lateral: 3.68 E'Medial: 2.70 E/E' Med: 43.00 E/E' Lat: 31.50 PHT: 44.00 MVA PHT: 5.00 Decel [place]: 7.76 LVOT LVOT Pk Karan: 0.62 LVOT Mn Karan: 0.44 LVOT VTI: 0.13 LVOT Pk Grad: 2.00 LVOT Mn Grad: 1.00 LVOT Diam: 1.90 LVOT Area: 2.84 Diastolic Function MV Pk E: 1.16 MV Pk A: 0.57 E/A: 2.00 E'Medial: 2.70 E/E' Med: 43.00 E' Laterial: 3.68 E/E' Lat: 31.50 Tricuspid Valve RA Press: 3.00 Updated in Other Vendor System with Status of Final Alexis Gipson MD electronically signed on 08/31/2022 2:37:08 PM with status of Final
== END ==
LOC: HO.CARD 10:06
PROVIDERS: PCP Family Medicine; Visit Provider Nurse Practitioner Family
DX: I42.9 Cardiomyopathy, unspecified (principal)
CPT/HCPCS: 93308; Q9957

== ENCOUNTER 2022-09-07 10:26 | Day surgery (SDC) | payer MEDICAID, SELFPAY ==
[2022-09-07] VITALS (11 sets, daily range): BP systolic 114–138; BP diastolic 56–74; PULSE 66–76; RESP 13–20; TEMP 36.3–37; O2SAT 96–100; BMI 35.2
[2022-09-07 12:09] LABS: MANUAL DIFF FLAG NO
[2022-09-07 12:11] LABS: Glucose, Whole Blood 205 mg/dL (60-115)
[2022-09-07 12:12] LABS: Basophils Absolute Auto 0.1 X10*3/uL (0.0-0.2); Basophils Percent Auto 0.8 % (0-2); Eosinophils Absolute Auto 0.5 X10*3/uL (0.0-0.4); Eosinophils Percent Auto 4.5 % (0-4); Hematocrit 46.7 % (42.0-52.0); Hemoglobin 15.2 g/dl (14.0-18.0); Imm Gran Abs Auto 0.02 X10*3/uL (0.00-0.03); Imm Gran Pct Auto 0.2 % (0.0-0.4); Lymphocytes Absolute Auto 2.5 X10*3/uL (1.2-4.9); Lymphocytes Percent Auto 24.3 % (20-40); Mean Corpuscular HGB Conc 32.5 g/dl (31.0-36.0); Mean Corpuscular Hemoglobin 29.1 pg (27.0-33.0); Mean Corpuscular Volume 89.5 fL (80.0-98.0); Mean Platelet Volume 10.3 fL (9.4-12.4); Monocytes Absolute Auto 0.9 X10*3/uL (0.1-1.2); Monocytes Percent Auto 8.3 % (2-11); Neutrophils Absolute Auto 6.3 x10*3/uL (2.0-8.3); Neutrophils Percent Auto 61.9 % (45-73); Platelet Count 221 X10*3/uL (160-400); Red Blood Count 5.22 X10*6/uL (4.60-5.80); Red Cell Distribution Width 14.4 % (11.0-16.0); White Blood Count 10.2 X10*3/uL (4.8-10.8)
[2022-09-07 12:20] LABS: INTERNATIONAL NORM RATIO 1.3 (0.9-1.1); Prothrombin Time 14.9 SEC (10.0-13.1)
[2022-09-07 12:23] LABS: Anion Gap 11 (12-20); Carbon Dioxide 28 mmol/L (22-29); Chloride 103 mmol/L (96-108); Potassium 5.4 mmol/L (3.3-5.1); Sodium 137 mmol/L (135-145)
--- NOTE | 2022-09-07 14:24 | P.OP_ITS ---
Operative Note Operative Note Date of Service: 09/07/22 Narrative: Angiogram report from [facility] Preoperative diagnosis: Atherosclerosis of right lower extremity with activity limiting claudication Postoperative diagnosis: Same Procedure: 1. Ultrasound-guided left common femoral access 2. Aortogram with bilateral lower extremity runoff Surgeon:Justin Dia M.D., FACS, RPVI Data Warehouse Analyst:None Anesthesia: Local with moderate conscious sedation. Total intraservice moderate sedation time was 34 minutes. I monitored the patient's level of consciousness and physiologic status continuously throughout the procedure. Specimens:none Drains:none Estimated blood loss: Less than 10 ml Implant: None Indications: Pleasant 61-year-old gentleman with history prior endovascular intervention presents for repeat claudication and concerns of occlusion on noninvasive testing. He now presents for endovascular intervention. The patient has signed the informed consent after reviewing risks, complications, benefits, and alternatives previously discussed with the patient. The patient was given the opportunity to ask any additional questions or voice any concerns. All questions were answered to the patient's satisfaction. Procedure in detail: Patient was brought to the angiography suite prior to which a time-out was called for patient identification and site verification. Bilateral groins were prepped and draped in the standard surgical fashion. Under ultrasound guidance left common femoral was punctured with micro puncture needle and wire. Subsequently a precision 4 [place] sheath was then placed. Bentson wire was advanced to the level of the aorta. 4 [place] Flush catheter was brought up and parked at the level of the renal arteries. Aortogram was then undertaken. Catheter was brought down to the level of the iliac bifurcation. Iliacs were subsequently imaged. Catheter was then brought in up and over to the right side profundus. Runoff study was then undertaken. It was recognized that the right SFA was occluded. Multiple orthogonal views were undertaken. We brought the catheter out and through the 4 [place] sheath we then undertook left lower extremity diagnostic angiogram as well. Once again no intervention was indicated. Sheath was removed in 10 minutes direct pressure was held. Patient tolerated the procedure well. Interpretation of films: 1. Ultrasound demonstrates appropriate femoral puncture. Image of which was s aved. 2. Aortogram demonstrates appropriate caliber aorta. Minimal disease. Appropriate take-off of the renals. 3. Iliac images demonstrate no significant disease seen - and bilateral iliac artery stents were patent 4. Right Leg Common femoral artery: No significant disease Profundus Femoris: No significant disease Superficial femoral artery: Occluded SFA from origin on down prior stents o ccluded Popliteal artery (p1,p2,p3): Reconstitutes at P2 segment Anterior tibial artery: Patent Peroneal artery: Patent Posterior tibial artery: Patent Dorsalis pedis/plantar arch: Incomplete 5. Left Leg Common femoral artery: No significant disease Profundus Femoris: No significant disease Superficial femoral artery: Occluded SFA from origin on down prior stents occluded Popliteal artery (p1,p2,p3): Reconstitutes above knee popliteal Anterior tibial artery: Patent Peroneal artery: Patent Posterior tibial artery: Patent Dorsalis pedis/plantar arch: Nearly complete Conclusion: 1. Successful diagnostic angiogram - bilateral total SFA occlusions will need bypasses if required clinically 2. Anticoagulation status: No change This note is constructed using voice recognition software. While every effort has been made to ensure accuracy, lithographic artist errors may have been included. Thank you for allowing me to participate in the care of your patient. Yours sincerely, Justin Dia MD, FACS, R.P.V.I.
[2022-09-07] MEDS: oxyCODONE HCl Immed Release 5 MG TABLET PO (16:34)
[2022-09-07] MEDS: Acetaminophen 325 MG TABLET 650 MG PO (16:35)
== END 2022-09-07 18:28 | disposition home or self-care (01) ==
PROVIDERS: PCP Family Medicine; Visit Provider Surgery Vascular Surgery
DX: E11.51 Type 2 diabetes mellitus with diabetic peripheral angiopathy without gangrene (principal); I70.238 Atherosclerosis of native arteries of right leg with ulceration of other part of lower leg; I70.92 Chronic total occlusion of artery of the extremities; I10 Essential (primary) hypertension; E78.00 Pure hypercholesterolemia, unspecified; F17.210 Nicotine dependence, cigarettes, uncomplicated; Z79.899 Other long term (current) drug therapy
CPT/HCPCS: 36247; 36415; 75630; 76937; 80051; 82947; 85025; 85610; 99152; 99153; C1769; C1887; J1643; J2250; J3010; Q9967

== ENCOUNTER → 2022-10-01 12:48 | Outpatient (BNVA) | payer MEDICAID, SELFPAY | PROVIDERS: PCP Family Medicine; Visit Provider Surgery Vascular Surgery | DX: I73.9 Peripheral vascular disease, unspecified (principal) | CPT/HCPCS: 99212 ==

== ENCOUNTER → 2022-10-27 11:34 | Outpatient (BNVA) | payer MEDICAID, SELFPAY | PROVIDERS: PCP Family Medicine; Referring Provider Family Medicine; Visit Provider Internal Medicine | DX: Z01.810 Encounter for preprocedural cardiovascular examination (principal); I25.10 Atherosclerotic heart disease of native coronary artery without angina pectoris; I42.9 Cardiomyopathy, unspecified; F17.210 Nicotine dependence, cigarettes, uncomplicated | CPT/HCPCS: 99212 ==

== ENCOUNTER 2022-11-14 15:12 | Inpatient (IN) | payer MEDICAID, SELFPAY ==
--- NOTE | ~2022-11-14 | US_ITS ---
EXAMINATION: US SCROTUM CLINICAL INFORMATION: Swelling. COMPARISON: None available. TECHNIQUE: A sonogram of the scrotum was performed assessing roche-scale appearance and color Doppler flow. Spectral Doppler analysis of the arterial and venous flow were performed in the testes bilaterally. FINDINGS: RIGHT: Right testicle measures 3.7 x 3.2 x 2.8 cm, volume 18 mL. No focal testicular parenchymal lesions are visualized. Spectral Doppler analysis of the arterial and venous flow is normal in the right testis. Right epididymal head is normal in size. 6 x 7 mm epididymal head cyst. Small right hydrocele. No right varicocele. Right epididymal Doppler flow is normal. LEFT: Left testicle measures 3.7 x 2.9 x 3.1 cm, volume 18 mL. No focal testicular parenchymal lesions are visualized. Spectral Doppler analysis of the arterial and venous flow is normal in the left testis. Left epididymal head is normal in size. Small left epididymal head cyst measuring 2 mm. Small left hydrocele. Scrotal calcification or scrotal jeanine likely related to old trauma or infection. No varicocele. Left epididymal Doppler flow is normal. There is diffuse scrotal skin thickening and edema bilaterally. US/US scrotum IMPRESSION: Diffuse scrotal skin thickening and edema bilaterally. Small bilateral hydroceles. Bilateral epididymal head cysts.
--- NOTE | ~2022-11-14 | XR_ITS ---
EXAMINATION: XR TIBIA AND FIBULA, RIGHT CLINICAL INFORMATION: Question of osteomyelitis COMPARISON: None available. TECHNIQUE: AP and lateral views of the right tibia and fibula were obtained. FINDINGS: There is a soft tissue wound/ulcer anterior to the distal tibial diaphysis. There is a tiny calcific excrescence emanating year tibial cortex subjacent to the distal ulcer, however this is entirely nonspecific. No periosteal reaction, cortical destruction or intramedullary lucency to suggest osteomyelitis is soft tissue swelling XR/XR tibia fibula RT 2V IMPRESSION: * Soft tissue wound/ulcer anterior to the distal tibial diaphysis. * No radiographic evidence of osteomyelitis.
--- NOTE | ~2022-11-14 | CT_ITS ---
EXAMINATION: CT ANGIOGRAPHY ABDOMEN, PELVIS AND LOWER EXTREMITY RUNOFF WITH CONTRAST CLINICAL INFORMATION: Nonhealing right lower extremity ulcer COMPARISON: CT abdomen/pelvis 12/10/2020 TECHNIQUE: Initial noncontrast localizing lead injection mold technician images were obtained. Timing boluses at the level of the celiac and popliteal arteries were calculated. Subsequently, arterial phase multidetector volumetric imaging was performed through the abdomen, pelvis and bilateral lower extremities following the administration of 150 mL Omnipaque 350 intravenous contrast. No contrast reaction reported Sagittal and coronal reformatted images were obtained on the technologist workstation. After extensive post-processing on a dedicated 3-D workstation, 3-D reformatted images were uploaded to PACS and reviewed as well. This CT examination was performed using dose optimization techniques as appropriate, variously including the following: *Automated exposure control *Adjustment of mA and/or kV according to patient size (this includes techniques or standardized protocols for targeted exams where dose is matched to indication/reason for exam; i.e. extremities or head) *Use of iterative reconstruction technique DLP: 729 mGy-cm FINDINGS: VASCULAR: Abdominal Aorta: Moderate mixed atherosclerotic disease. No dissection or aneurysmal dilation. Normal aortic taper. 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 Superior and inferior mesenteric arteries are patent. Renal Artery: Single renal arteries bilaterally. Renal arteries are patent and without stenosis or other vascular anomaly. Right Common Iliac Artery: Focal high-grade stenosis distally secondary to mixed atherosclerotic disease present at C6; 389). Right External Iliac Artery: Stent patent and covers the internal iliac artery. Minimal eccentric in-stent thrombus noted proximally without high-grade stenosis. Right Internal Iliac Artery: Occluded proximally. Reconstitutes distally from collaterals. Left Common Iliac Artery: Stent patent. Left External Iliac Artery: Patent. Moderate mixed atherosclerotic disease resulting in high grade stenosis at the mid segment (6; 485). Left Internal Iliac Artery: Patent. Right Lower Extremity: Common Femoral Artery: High-grade stenosis secondary to mixed atherosclerotic plaque (6; 584). Superficial Femoral Artery: Occluded. Profunda Femoris: Patent. Popliteal Artery: Mild mixed atherosclerotic disease. Tibioperoneal Trunk: Patent. Anterior Tibial Artery: Patent. Peroneal Artery: Patent. Posterior Tibial Artery: Patent. Dorsalis Pedis: Occluded. Plantar Arch: Patent. Left Lower Extremity: Common Femoral Artery: High-grade stenosis proximally secondary to mixed atherosclerotic disease (6; 586). Superficial Femoral Artery: Occluded for nearly its entire length. Patent distally. Profunda Femoris: Patent. Popliteal Artery: Patent. Mild mixed atherosclerotic disease. Tibioperoneal Trunk: Patent. Anterior Tibial Artery: Patent. Peroneal Artery: Patent. Posterior Tibial Artery: Patent. Dorsalis Pedis: Patent. Plantar Arch: Patent. NONVASCULAR FINDINGS: ABDOMEN/PELVIS: Lung Bases: The visualized lung bases are clear. Liver: Imaged portions homogeneous in attenuation. Gallbladder: Noninflamed. Biliary System: No intrahepatic or extrahepatic biliary dilation. Pancreas: Homogeneous in attenuation. Spleen: Normal in size. Genitourinary: Bilateral kidneys demonstrate symmetric enhancement. Approximately 1.4 x 1.3 cm well-circumscribed solid-appearing mass arising from the posterior cortex of the left interpolar kidney. Right lower pole simple renal cyst measuring 2.1 cm. Specific perinephric stranding without fluid collection. No renal calculi. No hydroureteronephrosis. Large bladder diverticulum to the left with waist size approximately 3.4 cm. Adrenal Glands: Unremarkable. Reproductive: Prostatomegaly. Gastrointestinal: The visualized alimentary tract is normal in course. No evidence of obstruction. Appendix: The appendix is seen in its entirety and is unremarkable. Peritoneum: No pneumoperitoneum. No intra-abdominal fluid collection. Lymph Nodes: No pathologically enlarged abdominal or pelvic lymph nodes. Soft Tissues/Musculoskeletal: Bilateral fat-containing inguinal hernias, left greater than right. Cortical swelling. Bilateral lower extremity soft tissue swelling increasing in the craniocaudal gradient from the proximal thigh to bilateral feet. Large soft tissue defect noted in the pretibial region, likely corresponding to ulcer. No secondary signs of osteomyelitis, subcutaneous gas, or fluid collection. Bilateral hip osteoarthritis. CT/CT angio abd aorta runoff IMPRESSION: VASCULAR: Abdomen/Pelvis: 1. No abdominal aortic aneurysm or dissection. 2. 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 Right Lower Extremity: 1. Focal high-grade stenosis of the common iliac artery. 2. Patent external iliac stent with eccentric intraluminal thrombus. Stent covers the origin of the internal iliac artery. 3. Short segment high-grade stenosis of the common femoral artery. 4. Occlusion of the SFA, including stent. 5. Three-vessel runoff to the foot. 6. Dorsalis pedis occluded. The entire patent. Left Lower Extremity: 1. Left external iliac artery stent patent. 2. Focal high-grade stenosis of the external iliac common femoral arteries. 3. Long segment occlusion of the SFA, including stent. Distal SFA patent from intramuscular collaterals. 4. Three-vessel runoff to the foot. 5. Dorsalis pedis and plantar patent. NONVASCULAR: 1. Right distal tibial soft tissue defect without evidence of osteomyelitis. Bilateral predominantly below-knee soft tissue swelling. 2. Left lower pole complex/solid renal mass measuring 1.4 x 1.3 cm. Recommend further evaluation with MRI abdomen with contrast. 3. Bladder diverticulum. Fleischner guidelines were followed.
--- NOTE | ~2022-11-14 | US_ITS ---
EXAMINATION: US SCROTUM CLINICAL INFORMATION: Swelling. COMPARISON: None available. TECHNIQUE: A sonogram of the scrotum was performed assessing roche-scale appearance and color Doppler flow. Spectral Doppler analysis of the arterial and venous flow were performed in the testes bilaterally. FINDINGS: RIGHT: Right testicle measures 3.7 x 3.2 x 2.8 cm, volume 18 mL. No focal testicular parenchymal lesions are visualized. Spectral Doppler analysis of the arterial and venous flow is normal in the right testis. Right epididymal head is normal in size. 6 x 7 mm epididymal head cyst. Small right hydrocele. No right varicocele. Right epididymal Doppler flow is normal. LEFT: Left testicle measures 3.7 x 2.9 x 3.1 cm, volume 18 mL. No focal testicular parenchymal lesions are visualized. Spectral Doppler analysis of the arterial and venous flow is normal in the left testis. Left epididymal head is normal in size. Small left epididymal head cyst measuring 2 mm. Small left hydrocele. Scrotal calcification or scrotal jeanine likely related to old trauma or infection. No varicocele. Left epididymal Doppler flow is normal. There is diffuse scrotal skin thickening and edema bilaterally. US/US scrotum doppler IMPRESSION: Diffuse scrotal skin thickening and edema bilaterally. Small bilateral hydroceles. Bilateral epididymal head cysts.
[2022-11-14 15:31] VITALS: BP 146/52; PULSE 78; RESP 18; TEMP 36.1; O2SAT 95; BMI 36.3
--- NOTE | 2022-11-14 15:37 | ED_ITS ---
HPI - General Adult General Chief complaint: Wound/Laceration Stated complaint: Right foot pain/blood in urine Time Seen by Provider: 11/14/22 15:25 Source: patient Mode of arrival: ambulatory Limitations: no limitations History of Present Illness HPI narrative: Patient with history of hypertension diabetic with peripheral artery disease with nonhealing ulcer on the right dennis for few months getting worse poor co mpliance not following up with any wound clinic comes here with open wound the right dennis with increased pain and redness around it no significant for discharge no fever no chills patient also complaining of swelling of the scrotum for a while no acute injury no fever no open wound on the scrotum Related Data Home Medications Medication Instructions Recorded Confirmed aspirin 81 mg tablet,delayed 81 mg PO DAILY 12/10/20 10/27/22 release atorvastatin 80 mg tablet 80 mg PO BEDTIME 12/10/20 10/27/22 insulin glargine 100 unit/mL (3 40 unit subcut BEDTIME 12/10/20 10/27/22 mL) subcutaneous pen (Lantus Solostar U-100 Insulin) insulin lispro 100 unit/mL 12 unit subcut TID PRN Hypoglycemia 12/10/20 10/27/22 subcutaneous pen (Humalog KwikPen (U-100) Insulin) ipratropium 20 mcg-albuterol 100 1 puff inhalation QID PRN Wheezing 12/10/20 10/27/22 mcg/actuation mist for inhalation (Combivent Respimat) pantoprazole 20 mg tablet,delayed 20 mg PO DAILY 12/10/20 10/27/22 release polyvinyl alcohol 1.4 % eye drops 1 drp ophthalmic (eye) BID 12/10/20 10/27/22 (Artificial Tears (polyvinyl alcohol)) lisinopril 40 mg tablet 40 mg PO BEDTIME 03/23/22 10/27/22 empagliflozin 25 mg tablet 25 mg PO DAILY 08/18/22 10/27/22 (Jardiance) metformin 1,000 mg tablet 1,000 mg PO DAILY 08/18/22 10/27/22 doxycycline hyclate 100 mg tablet 100 mg PO BID 10/27/22 10/27/22 Previous Rx's Medication Instructions Recorded prednisone 20 mg tablet 40 mg PO DAILY #10 tabs 12/17/21 tamsulosin 0.4 mg capsule 0.4 mg PO BEDTIME #30 caps 03/23/22 finasteride 5 mg tablet 5 mg PO DAILY 90 days #90 tabs 04/14/22 silver sulfadiazine 1 % topical 1 appl topical DAILY #25 grams 06/11/22 cream (Silvadene) furosemide 40 mg tablet 40 mg PO QAM #90 tabs 07/01/22 isosorbide mononitrate 30 mg 30 mg PO DAILY #30 tabs 07/02/22 tablet,extended release 24 hr carvedilol 25 mg tablet 25 mg PO BID #180 tabs 07/10/22 Allergies Allergy/AdvReac Type Severity Reaction Status Date / Time No Known Drug Allergies Allergy Unknown UNKNOWN Verified 10/27/22 12:33 Review of Systems 2 Review of Systems: Yes all other systems are reviewed and are negative [facility] Past Medical History Medical History Abscess, perineum Asthma Diabetes High cholesterol HTN (hypertension) Surgical History History of cardiac cath Hx of varicose vein stripping S/P angiogram of extremity Family History Family History Father No problems noted. Mother Diabetes HTN (hypertension) Sister No problems noted. Sister Diabetes HTN (hypertension) Sister No problems noted. Social History Social History Household Members: None Housing: Apartment Do you presently have visiting nurse or other home services: Yes Alcohol intake: never Patient Tobacco Use Status: Current someday Tobacco user Cigarette Packs Per Day: 0.5 Cigarettes Per Day: 10 Years Smoked: 15+/- Second Hand Smoke Exposure: No Advance Directives: Yes Advance Directives on File: Yes Advance Directives Date on File: 12/10/20 service: No Current occupational status: disabled Physical Exam ED Vital Signs: Vital Signs - 24 hr 11/14/22 15:31 11/14/22 18:38 11/14/22 20:15 Temperature 97 F 97.8 F 98.4 F Pulse Rate 78 72 69 Respiratory Rate 18 19 18 Blood Pressure 146/52 H 147/60 H 138/54 L Pulse Oximetry 95 98 99 Oxygen Delivery Method Room Air Room Air Room Air BMI result Body Mass Index 36.3 Appearance: Alert. Oriented X3. No acute distress. Eyes: PERRLA, No Nystagmus ENT: Pharynx normal. Oral Mucosa moist Neck: Normal inspection. Neck supple. CVS: Normal heart rate and rhythm. Pulses normal. Respiratory: No respiratory distress. Equal air entry bilateral, no wheezing /rales/rhonchi Abdomen: Soft and nontender. Bowel sounds are present, no mass palpable, no CVA tenderness diffuse edematous scrotal wall with small hydrocele bilateral no open wounds no significant erythema or warmth feeling Skin: Skin warm and dry. Normal skin color. Normal skin turgor. Extremities: 2+ lower extremity edema. No calf tenderness Neuro: Oriented X 3. No motor deficit. No sensory deficit. Course Course Course Narrative: A 62-year-old male with past medical history significant for diabetes, hypertension, coronary artery disease, hyperlipidemia, tobacco dependence, obes ity presents for evaluation of multiple complaints. He reports a wound to his right dennis for the last 3 months. He has a large, necrotic wound to the right dennis with surrounding erythema. He reports increase foul-smelling discharge. Denies any fevers or chills. He also complains of scrotal swelling. Patient lastly complains of dark urine. Plan for labs including inflammatory markers, blood cultures. X-ray of the right dennis to evaluate for osteomyelitis. UA, ultrasound of the scrotum. Medications Administered Discontinued Medications Generic Name Dose Route Start Last Admin Trade Name Freq PRN Reason Stop Dose Admin Sodium Chloride 1,000 mls @ 999 mls/hr 11/14/22 16:45 11/14/22 21:39 Ns IV 11/14/22 17:45 Infused .Q1H1M ONE Infusion Vancomycin HCl 2,000 mg in 500 mls @ 270 mls/hr 11/14/22 17:15 11/14/22 17:44 Vancomycin/Ns IV 11/14/22 19:06 270 mls/hr ONCE ONE Administration Piperacillin Sod/Tazobactam 50 mls @ 100 mls/hr 11/14/22 16:45 11/14/22 17:46 Sod 3.375 gm/ Sodium Chloride IV 11/14/22 17:14 Infused ONCE ONE Infusion Morphine Sulfate 4 mg 11/14/22 17:54 11/14/22 19:34 Morphine Sulfate 4 Mg/Ml Cartridge IVPUSH 11/14/22 17:55 4 mg ONCE ONE Administration Protocol Ondansetron HCl 4 mg 11/14/22 17:54 11/14/22 19:34 Ondansetron Hcl 4 Mg/2 Ml Vial IVPUSH 11/14/22 17:55 4 mg ONCE ONE Administration Medical Decision Making Medical Decision Making [facility] Narrative: Patient with nonhealing wound right leg with surrounding cellulitis with history of diabetes and peripheral artery disease will admit patient for IV antibiotics x-ray negative for bony erosion/osteomyelitis Consult Healthcare Provider Management of the patient was discussed with: Hospitalist Lab Data [facility] Lab Attestation statement: I reviewed the patient's lab results. 11/14/22 15:52 11/14/22 15:52 Labs: Lab Results 11/14/22 11/14/22 11/14/22 Range/Units 15:52 15:52 15:52 WBC 9.3 (4.8-10.8) X10*3/uL RBC 4.53 L (4.60-5.80) X10*6/uL Hgb 13.4 L (14.0-18.0) g/dl Hct 42.0 (42.0-52.0) % MCV 92.7 (80.0-98.0) fL MCH 29.6 (27.0-33.0) pg MCHC 31.9 (31.0-36.0) g/dl RDW 14.8 (11.0-16.0) % Plt Count 185 (160-400) X10*3/uL MPV 10.1 (9.4-12.4) fL Immature Gran % (Auto) 0.4 (0.0-0.4) % Neut % (Auto) 72.9 (45-73) % Lymph % (Auto) 15.1 L (20-40) % [place] % (Auto) 7.0 (2-11) % Eos % (Auto) 3.9 (0-4) % Baso % (Auto) 0.7 (0-2) % Lymph # (Auto) 1.4 (1.2-4.9) X10*3/uL [place] # (Auto) 0.7 (0.1-1.2) X10*3/uL Eos # (Auto) 0.4 (0.0-0.4) X10*3/uL Baso # (Auto) 0.1 (0.0-0.2) X10*3/uL Abs Immat Gran (auto) 0.04 H (0.00-0.03) X10*3/uL Absolute Neuts (auto) 6.8 (2.0-8.3) x10*3/uL Absolute Nucleated RBC 0.000 (0.0-0.012) X10*3/uL Nucleated RBC % (auto) 0.0 (0.0-0.2) /100WBC ESR (0-15) MM/HR Sodium 138 (135-145) mmol/L Potassium 4.4 (3.3-5.1) mmol/L Chloride 107 (96-108) mmol/L Carbon Dioxide 23 (22-29) mmol/L Anion Gap 12 (12-20) BUN 20 H (9-16) mg/dL Creatinine 1.07 (0.5-1.4) mg/dL Estim Creat Clear Calc 78.0 Estimated GFR > 60 Random Glucose 230 H (60-115) mg/dL Lactic Acid 2.6 H* (0.5-2.0) mmol/L Lactic Acid F/U @ 2Hr (0.5-2.0) mmol/L Calcium 8.8 D (8.4-10.2) mg/dL Total Bilirubin 1.1 H (0.0-1.0) mg/dL AST 19 (5-37) U/L ALT 21 (0-40) U/L Alkaline Phosphatase 78 (39-117) U/L C-Reactive Protein 1.85 H (< or = 0.50) mg/dL Total Protein 6.4 L (6.5-8.0) g/dL Albumin 3.7 (3.5-5.0) g/dL Lipase 11 (8-78) U/L Urine Color Urine Appearance Urine pH (5.0-9.0) Ur Specific [place] (1.005-1.025) Urine Protein (Neg-Trace) mg/dL Urine Glucose (UA) (Negative) mg/dL Urine Ketones (Negative) mg/dL Urine Blood (Negative) Urine Nitrite (Negative) Ur Leukocyte Esterase (Negative) Urine RBC (0-2) /HPF Urine WBC (0-5) /HPF Urine WBC Clumps Ur Squamous Epith Cells (0-2) /HPF Ur Transition Epith Cell Ur Renal Epithelial Cell Calcium Oxalate Crystal Leucine Crystals Cystine Crystals Tyrosine Crystals Other Crystals Urine Bacteria (None Seen) Urine Parasites Bilirubin Casts Epithelial Casts Fatty Casts Hyaline Casts (0-2) /LPF Granular Casts Waxy Casts Broad Casts RBC Casts WBC Casts Other Casts Urine Trichomonas Urine Yeast 11/14/22 11/14/22 11/14/22 Range/Units 15:52 18:26 19:40 WBC (4.8-10.8) X10*3/uL RBC (4.60-5.80) X10*6/uL Hgb (14.0-18.0) g/dl Hct (42.0-52.0) % MCV (80.0-98.0) fL MCH (27.0-33.0) pg MCHC (31.0-36.0) g/dl RDW (11.0-16.0) % Plt Count (160-400) X10*3/uL MPV (9.4-12.4) fL Immature Gran % (Auto) (0.0-0.4) % Neut % (Auto) (45-73) % Lymph % (Auto) (20-40) % [place] % (Auto) (2-11) % Eos % (Auto) (0-4) % Baso % (Auto) (0-2) % Lymph # (Auto) (1.2-4.9) X10*3/uL [place] # (Auto) (0.1-1.2) X10*3/uL Eos # (Auto) (0.0-0.4) X10*3/uL Baso # (Auto) (0.0-0.2) X10*3/uL Abs Immat Gran (auto) (0.00-0.03) X10*3/uL Absolute Neuts (auto) (2.0-8.3) x10*3/uL Absolute Nucleated RBC (0.0-0.012) X10*3/uL Nucleated RBC % (auto) (0.0-0.2) /100WBC ESR 5 (0-15) MM/HR Sodium (135-145) mmol/L Potassium (3.3-5.1) mmol/L Chloride (96-108) mmol/L Carbon Dioxide (22-29) mmol/L Anion Gap (12-20) BUN (9-16) mg/dL Creatinine (0.5-1.4) mg/dL Estim Creat Clear Calc Estimated GFR Random Glucose (60-115) mg/dL Lactic Acid (0.5-2.0) mmol/L Lactic Acid F/U @ 2Hr 1.6 (0.5-2.0) mmol/L Calcium (8.4-10.2) mg/dL Total Bilirubin (0.0-1.0) mg/dL AST (5-37) U/L ALT (0-40) U/L Alkaline Phosphatase (39-117) U/L C-Reactive Protein (< or = 0.50) mg/dL Total Protein (6.5-8.0) g/dL Albumin (3.5-5.0) g/dL Lipase (8-78) U/L Urine Color Dark Yellow Urine Appearance Clear Urine pH 6.5 (5.0-9.0) Ur Specific [place] >= 1.030 H (1.005-1.025) Urine Protein 100 (2+) H (Neg-Trace) mg/dL Urine Glucose (UA) >=1000 H (Negative) mg/dL Urine Ketones Trace (Negative) mg/dL Urine Blood Large (3+) H (Negative) Urine Nitrite Negative (Negative) Ur Leukocyte Esterase Small (1+) H (Negative) Urine RBC >20 H (0-2) /HPF Urine WBC 21-50 H (0-5) /HPF Urine WBC Clumps Ur Squamous Epith Cells 3-5 (0-2) /HPF Ur Transition Epith Cell Ur Renal Epithelial Cell Calcium Oxalate Crystal Leucine Crystals Cystine Crystals Tyrosine Crystals Other Crystals Urine Bacteria None Seen (None Seen) Urine Parasites Bilirubin Casts Epithelial Casts Fatty Casts Hyaline Casts 0-2 (0-2) /LPF Granular Casts Waxy Casts Broad Casts RBC Casts WBC Casts Other Casts Urine Trichomonas Urine Yeast 11/14/22 Range/Units 19:40 WBC (4.8-10.8) X10*3/uL RBC (4.60-5.80) X10*6/uL Hgb (14.0-18.0) g/dl Hct (42.0-52.0) % MCV (80.0-98.0) fL MCH (27.0-33.0) pg MCHC (31.0-36.0) g/dl RDW (11.0-16.0) % Plt Count (160-400) X10*3/uL MPV (9.4-12.4) fL Immature Gran % (Auto) (0.0-0.4) % Neut % (Auto) (45-73) % Lymph % (Auto) (20-40) % [place] % (Auto) (2-11) % Eos % (Auto) (0-4) % Baso % (Auto) (0-2) % Lymph # (Auto) (1.2-4.9) X10*3/uL [place] # (Auto) (0.1-1.2) X10*3/uL Eos # (Auto) (0.0-0.4) X10*3/uL Baso # (Auto) (0.0-0.2) X10*3/uL Abs Immat Gran (auto) (0.00-0.03) X10*3/uL Absolute Neuts (auto) (2.0-8.3) x10*3/uL Absolute Nucleated RBC (0.0-0.012) X10*3/uL Nucleated RBC % (auto) (0.0-0.2) /100WBC ESR (0-15) MM/HR Sodium (135-145) mmol/L Potassium (3.3-5.1) mmol/L Chloride (96-108) mmol/L Carbon Dioxide (22-29) mmol/L Anion Gap (12-20) BUN (9-16) mg/dL Creatinine (0.5-1.4) mg/dL Estim Creat Clear Calc Estimated GFR Random Glucose (60-115) mg/dL Lactic Acid (0.5-2.0) mmol/L Lactic Acid F/U @ 2Hr (0.5-2.0) mmol/L Calcium (8.4-10.2) mg/dL Total Bilirubin (0.0-1.0) mg/dL AST (5-37) U/L ALT (0-40) U/L Alkaline Phosphatase (39-117) U/L C-Reactive Protein (< or = 0.50) mg/dL Total Protein (6.5-8.0) g/dL Albumin (3.5-5.0) g/dL Lipase (8-78) U/L Urine Color Cancelled Urine Appearance Cancelled Urine pH Cancelled (5.0-9.0) Ur Specific [place] Cancelled (1.005-1.025) Urine Protein Cancelled (Neg-Trace) mg/dL Urine Glucose (UA) Cancelled (Negative) mg/dL Urine Ketones Cancelled (Negative) mg/dL Urine Blood Cancelled (Negative) Urine Nitrite Cancelled (Negative) Ur Leukocyte Esterase Cancelled (Negative) Urine RBC Cancelled (0-2) /HPF Urine WBC Cancelled (0-5) /HPF Urine WBC Clumps Cancelled Ur Squamous Epith Cells Cancelled (0-2) /HPF Ur Transition Epith Cell Cancelled Ur Renal Epithelial Cell Cancelled Calcium Oxalate Crystal Cancelled Leucine Crystals Cancelled Cystine Crystals Cancelled Tyrosine Crystals Cancelled Other Crystals Cancelled Urine Bacteria Cancelled (None Seen) Urine Parasites Cancelled Bilirubin Casts Cancelled Epithelial Casts Cancelled Fatty Casts Cancelled Hyaline Casts Cancelled (0-2) /LPF Granular Casts Cancelled Waxy Casts Cancelled Broad Casts Cancelled RBC Casts Cancelled WBC Casts Cancelled Other Casts Cancelled Urine Trichomonas Cancelled Urine Yeast Cancelled Discharge Plan Discharge Clinical Impression: Non-healing wound of right lower extremity Patient Disposition: Admitted As Inpatient
[2022-11-14 15:59] LABS: MANUAL DIFF FLAG NO
[2022-11-14 16:01] LABS: Basophils Absolute Auto 0.1 X10*3/uL (0.0-0.2); Basophils Percent Auto 0.7 % (0-2); Eosinophils Absolute Auto 0.4 X10*3/uL (0.0-0.4); Eosinophils Percent Auto 3.9 % (0-4); Hemoglobin 13.4 g/dl (14.0-18.0); Imm Gran Abs Auto 0.04 X10*3/uL (0.00-0.03); Imm Gran Pct Auto 0.4 % (0.0-0.4); Lymphocytes Absolute Auto 1.4 X10*3/uL (1.2-4.9); Lymphocytes Percent Auto 15.1 % (20-40); Mean Corpuscular HGB Conc 31.9 g/dl (31.0-36.0); Mean Corpuscular Hemoglobin 29.6 pg (27.0-33.0); Mean Corpuscular Volume 92.7 fL (80.0-98.0); Mean Platelet Volume 10.1 fL (9.4-12.4); Monocytes Absolute Auto 0.7 X10*3/uL (0.1-1.2); Neutrophils Absolute Auto 6.8 x10*3/uL (2.0-8.3); Neutrophils Percent Auto 72.9 % (45-73); Platelet Count 185 X10*3/uL (160-400); Red Blood Count 4.53 X10*6/uL (4.60-5.80); Red Cell Distribution Width 14.8 % (11.0-16.0); White Blood Count 9.3 X10*3/uL (4.8-10.8)
[2022-11-14 16:16] LABS: Alanine Aminotransferase 21 U/L (0-40); Albumin Level 3.7 g/dL (3.5-5.0); Alkaline Phosphatase 78 U/L (39-117); Anion Gap 12 (12-20); Aspartate Amino Transferase 19 U/L (5-37); Bilirubin Total 1.1 mg/dL (0.0-1.0); Blood Urea Nitrogen 20 mg/dL (9-16); C Reactive Protein 1.85 mg/dL (< or = 0.50); Calcium 8.8 mg/dL (8.4-10.2); Carbon Dioxide 23 mmol/L (22-29); Chloride 107 mmol/L (96-108); Estimated Glomerular Filt Rate > 60; Glucose Random 230 mg/dL (60-115); Lipase 11 U/L (8-78); Potassium 4.4 mmol/L (3.3-5.1); Sodium 138 mmol/L (135-145); Total Protein 6.4 g/dL (6.5-8.0)
[2022-11-14 16:27] LABS: Lactic Acid 2.6 mmol/L (0.5-2.0)
[2022-11-14 16:37] LABS: Erythrocyte Sedimentation Rate 5 MM/HR (0-15)
[2022-11-14] MEDS: 0.9 % Sodium Chloride 1,000 ML 999 ML IV (16:53)
[2022-11-14] MEDS: Piperacillin Sodium/Tazobactam 3.375 GM in 0.9 % Sodium Chloride 50 ML IV (17:16)
[2022-11-14] MEDS: vancomycin/NS 2,000 MG/500 ML PLAST..BAG 270 MG IV (17:44)
[2022-11-14 17:56] LABS: Reflex Lactate? Lactic Acid Added
[2022-11-14 18:38] VITALS: BP 147/60; PULSE 72; RESP 19; TEMP 36.6; O2SAT 98
[2022-11-14 18:50] LABS: ~Lactic Acid-LAB USE ONLY 1.6 mmol/L (0.5-2.0)
[2022-11-14] MEDS: Morphine Sulfate 4 MG/ML CARTRIDGE IVPUSH ×2 (19:34→23:42)
[2022-11-14] MEDS: ondansetron HCL 4 MG/2 ML VIAL IVPUSH (19:34)
[2022-11-14 19:54] LABS: Appearance Urine Clear; Color Urine Dark Yellow; Glucose Urine UA >=1000 mg/dL (Negative); Leukocyte Esterase Urine Small (1+) (Negative); Nitrite Urine Negative (Negative); PH 6.5 (5.0-9.0); Specific Gravity - Urine >= 1.030 (1.005-1.025); UMIC TRIGGER UACC YES; Urine Blood Large (3+) (Negative); Urine Ketones Trace mg/dL (Negative); Urine Protein 100 (2+) mg/dL (Neg-Trace)
[2022-11-14 19:56] LABS: Bacteria Urine None Seen (None Seen); Hyaline Casts Urine 0-2 /LPF (0-2); RBC Urine >20 /HPF (0-2); UACC Culture Trigger YES; WBC Urine 21-50 /HPF (0-5)
[2022-11-14 20:15] VITALS: BP 138/54; PULSE 69; RESP 18; TEMP 36.9; O2SAT 99
[2022-11-14 22:49] VITALS: BP 129/51; PULSE 68; RESP 18; O2SAT 98
--- NOTE | 2022-11-14 23:25 | PM.IMHP ---
History of Present Illness Date of Service: 11/14/22 Chief Complaint: leg pain this patient is a Somali-speaking only, history is obtained with the help of aerologist 62-year-old male with past medical history of diabetes, HTN, history of cardiomyopathy, history of CAD, BPH, peripheral arterial disease, presents the hospital with complaints of leg pain and nonhealing right lower extremity wound. Patient reports that he has had this wound for 4 months, but recently has significant 8/10, nonradiating, constant, pain in his lower extremity where the wound is, reports no alleviating factors. the wound has not been draining, he has no fever chills, reports no chest pain, no shortness of breath, no abdominal pain nausea or vomiting, no diarrhea or constipation. No lower extremity edema. No headache or change in vision, no weakness numbness or tingling. On arrival to the ED patient hemodynamically stable with no significant abnormal vitals Labs are significant for WBC 9.3 lactic acid of 2.6, UA is positive for leukocyte Estrace and WBC, ESR of 5 x-ray of the tibia-fibula show soft tissue wound ulcer anterior to the distal tibial diaphyses with no radiographic evidence of osteomyelitis patient will be admitted for further management Review of Systems Review of Systems: Yes all other systems are reviewed and are negative [facility] Medical History Abscess, perineum Asthma Diabetes High cholesterol HTN (hypertension) Family History Father No problems noted. Mother Diabetes HTN (hypertension) Sister No problems noted. Sister Diabetes HTN (hypertension) Sister No problems noted. Surgical History History of cardiac cath Hx of varicose vein stripping S/P angiogram of extremity Social History Household Members: None Housing: Apartment Housing Other:: elderly housing Do you presently have visiting nurse or other home services: Yes Alcohol intake: never Patient Tobacco Use Status: Current everyday Tobacco user Tobacco use type: Cigarette Cigarette Packs Per Day: 0.5 Cigarettes Per Day: 10 Years Smoked: 15+/- Smoked in Last 30 Days: Yes Patient Interested in Nicotine Replacement: No Second Hand Smoke Exposure: No Use of substances other than those prescribed or required for medical reasons: No Have you been hit, kicked, punched, or otherwise hurt by someone within the past year? If so, by whom?: No Do you feel safe in your current relationship?: No Current Relationship Is there a partner from a previous relationship who is making you feel unsafe now?: No Are you made to feel afraid or neglected: No Advance Directives: Yes Advance Directives on File: Yes Advance Directives Date on File: 12/10/20 Do you have thoughts of harming others: None Do you have a plan to hurt others: No Plan Recently lost weight without trying: Unsure Eating poorly because of decreased appetite: No Nutrition Risks: No Nutritional Risk Poor oral hygiene: No service: No Current occupational status: disabled [employer] Allergies Allergy/AdvReac Type Severity Reaction Status Date / Time No Known Drug Allergies Allergy Unknown UNKNOWN Verified 10/27/22 12:33 Home Medications Medication Instructions Recorded Confirmed Last Taken Type aspirin 81 mg tablet,delayed 81 mg PO DAILY 12/10/20 11/14/22 12/09/20 History release atorvastatin 80 mg tablet 80 mg PO BEDTIME 12/10/20 11/14/22 12/09/20 History insulin glargine 100 unit/mL (3 44 unit subcut BEDTIME 12/10/20 11/14/22 12/09/20 History mL) subcutaneous pen (Lantus Solostar U-100 Insulin) insulin lispro 100 unit/mL 12 unit subcut TID PRN Hypoglycemia 12/10/20 10/27/22 12/09/20 History subcutaneous pen (Humalog KwikPen (U-100) Insulin) ipratropium 20 mcg-albuterol 100 1 puff inhalation QID PRN Wheezing 12/10/20 10/27/22 12/09/20 History mcg/actuation mist for inhalation (Combivent Respimat) pantoprazole 20 mg tablet,delayed 20 mg PO DAILY 12/10/20 10/27/22 12/09/20 History release polyvinyl alcohol 1.4 % eye drops 1 drp ophthalmic (eye) BID 12/10/20 10/27/22 12/09/20 History (Artificial Tears (polyvinyl alcohol)) lisinopril 40 mg tablet 40 mg PO BEDTIME 03/23/22 11/14/22 Unknown History empagliflozin 25 mg tablet 25 mg PO DAILY 08/18/22 10/27/22 Unknown History (Jardiance) metformin 1,000 mg tablet 1,000 mg PO DAILY 08/18/22 11/14/22 Unknown History doxycycline hyclate 100 mg tablet 100 mg PO BID 10/27/22 10/27/22 Unknown History ipratropium 20 mcg-albuterol 100 1 puff inhalation QID PRN 11/14/22 11/14/22 Unknown History mcg/actuation mist for inhalation Bronchospasm (Combivent Respimat) naloxone 4 mg/actuation nasal spray intranasal 11/14/22 Unknown History oxycodone 5 mg tablet 5 mg PO Q12H PRN severe pain 11/14/22 11/14/22 Unknown History pantoprazole 20 mg tablet,delayed 20 mg PO QAM 11/14/22 11/14/22 Unknown History release tiotropium bromide 2.5 2 puff inhalation DAILY 11/14/22 11/14/22 Unknown History mcg/actuation mist for inhalation (Spiriva Respimat) Physical Exam Vital Signs and Narrative: Vital Signs: Last Vital Signs Temp 98.4 F 11/14/22 20:15 Pulse 68 11/14/22 22:49 Resp 18 11/14/22 22:49 BP 129/51 L 11/14/22 22:49 Pulse Ox 98 11/14/22 22:49 O2 Del Method Room Air 11/14/22 22:49 BMI result Body Mass Index 36.3 Skin: Other: wound base is clean, there is no warmth, or edema, there is erythema seen in the picture, mood has a green film that is nondraining. Extrem: Other: see picture above Results Labs 11/14/22 15:52 11/14/22 15:52 Labs: Laboratory Results - last 24 hr 11/14/22 11/14/22 11/14/22 15:52 15:52 15:52 MCV 92.7 MCH 29.6 MCHC 31.9 RDW 14.8 Plt Count 185 MPV 10.1 Immature Gran % (Auto) 0.4 Neut % (Auto) 72.9 Lymph % (Auto) 15.1 L [place] % (Auto) 7.0 Eos % (Auto) 3.9 Baso % (Auto) 0.7 Lymph # (Auto) 1.4 [place] # (Auto) 0.7 Eos # (Auto) 0.4 Baso # (Auto) 0.1 Abs Immat Gran (auto) 0.04 H Absolute Neuts (auto) 6.8 Absolute Nucleated RBC 0.000 Nucleated RBC % (auto) 0.0 ESR Anion Gap 12 Estim Creat Clear Calc 78.0 Estimated GFR > 60 Random Glucose 230 H Lactic Acid 2.6 H* Lactic Acid F/U @ 2Hr Calcium 8.8 D Total Bilirubin 1.1 H AST 19 ALT 21 Alkaline Phosphatase 78 C-Reactive Protein 1.85 H Total Protein 6.4 L Albumin 3.7 Lipase 11 Urine Color Urine Appearance Urine pH Ur Specific [place] Urine Protein Urine Glucose (UA) Urine Ketones Urine Blood Urine Nitrite Ur Leukocyte Esterase Urine RBC Urine WBC Urine WBC Clumps Ur Squamous Epith Cells Ur Transition Epith Cell Ur Renal Epithelial Cell Calcium Oxalate Crystal Leucine Crystals Cystine Crystals Tyrosine Crystals Other Crystals Urine Bacteria Urine Parasites Bilirubin Casts Epithelial Casts Fatty Casts Hyaline Casts Granular Casts Waxy Casts Broad Casts RBC Casts WBC Casts Other Casts Urine Trichomonas Urine Yeast 11/14/22 11/14/22 11/14/22 15:52 18:26 19:40 MCV MCH MCHC RDW Plt Count MPV Immature Gran % (Auto) Neut % (Auto) Lymph % (Auto) [place] % (Auto) Eos % (Auto) Baso % (Auto) Lymph # (Auto) [place] # (Auto) Eos # (Auto) Baso # (Auto) Abs Immat Gran (auto) Absolute Neuts (auto) Absolute Nucleated RBC Nucleated RBC % (auto) ESR 5 Anion Gap Estim Creat Clear Calc Estimated GFR Random Glucose Lactic Acid Lactic Acid F/U @ 2Hr 1.6 Calcium Total Bilirubin AST ALT Alkaline Phosphatase C-Reactive Protein Total Protein Albumin Lipase Urine Color Dark Yellow Urine Appearance Clear Urine pH 6.5 Ur Specific [place] >= 1.030 H Urine Protein 100 (2+) H Urine Glucose (UA) >=1000 H Urine Ketones Trace Urine Blood Large (3+) H Urine Nitrite Negative Ur Leukocyte Esterase Small (1+) H Urine RBC >20 H Urine WBC 21-50 H Urine WBC Clumps Ur Squamous Epith Cells 3-5 Ur Transition Epith Cell Ur Renal Epithelial Cell Calcium Oxalate Crystal Leucine Crystals Cystine Crystals Tyrosine Crystals Other Crystals Urine Bacteria None Seen Urine Parasites Bilirubin Casts Epithelial Casts Fatty Casts Hyaline Casts 0-2 Granular Casts Waxy Casts Broad Casts RBC Casts WBC Casts Other Casts Urine Trichomonas Urine Yeast 11/14/22 19:40 MCV MCH MCHC RDW Plt Count MPV Immature Gran % (Auto) Neut % (Auto) Lymph % (Auto) [place] % (Auto) Eos % (Auto) Baso % (Auto) Lymph # (Auto) [place] # (Auto) Eos # (Auto) Baso # (Auto) Abs Immat Gran (auto) Absolute Neuts (auto) Absolute Nucleated RBC Nucleated RBC % (auto) ESR Anion Gap Estim Creat Clear Calc Estimated GFR Random Glucose Lactic Acid Lactic Acid F/U @ 2Hr Calcium Total Bilirubin AST ALT Alkaline Phosphatase C-Reactive Protein Total Protein Albumin Lipase Urine Color Cancelled Urine Appearance Cancelled Urine pH Cancelled Ur Specific [place] Cancelled Urine Protein Cancelled Urine Glucose (UA) Cancelled Urine Ketones Cancelled Urine Blood Cancelled Urine Nitrite Cancelled Ur Leukocyte Esterase Cancelled Urine RBC Cancelled Urine WBC Cancelled Urine WBC Clumps Cancelled Ur Squamous Epith Cells Cancelled Ur Transition Epith Cell Cancelled Ur Renal Epithelial Cell Cancelled Calcium Oxalate Crystal Cancelled Leucine Crystals Cancelled Cystine Crystals Cancelled Tyrosine Crystals Cancelled Other Crystals Cancelled Urine Bacteria Cancelled Urine Parasites Cancelled Bilirubin Casts Cancelled Epithelial Casts Cancelled Fatty Casts Cancelled Hyaline Casts Cancelled Granular Casts Cancelled Waxy Casts Cancelled Broad Casts Cancelled RBC Casts Cancelled WBC Casts Cancelled Other Casts Cancelled Urine Trichomonas Cancelled Urine Yeast Cancelled Imaging Radiologist's Impressions: Impressions Scrotum Ultrasound 11/14/22 16:01 IMPRESSION: Diffuse scrotal skin thickening and edema bilaterally. Small bilateral hydroceles. Bilateral epididymal head cysts. Scrotum Ultrasound 11/14/22 16:01 IMPRESSION: Diffuse scrotal skin thickening and edema bilaterally. Small bilateral hydroceles. Bilateral epididymal head cysts. Tibia/Fibula X-Ray 11/14/22 17:36 IMPRESSION: * Soft tissue wound/ulcer anterior to the distal tibial diaphysis. * No radiographic evidence of osteomyelitis. Assessment and Plan (1) Non-healing wound of right lower extremity: Status: Acute (2) History of peripheral vascular disease: Status: Acute (3) Arterial occlusion, lower extremity: Status: Acute (4) UTI (urinary tract infection): Status: Acute (5) Lactic acidosis: Status: Acute Plan 62-year-old male with past medical history of peripheral vascular disease presents to the hospital with complaints of pain and nonhealing wound in the right lower extremity # nonhealing wound of right lower extremity - history of PAD , with recent aortogram by vascular surgery showing bilateral total SFA occlusion - at this time given wound will start on antibiotics - will consult ID for further recommendation as wound appears clean - will consult vascular surgery # lower extremity arterial occlusion / PVD - con statin and aspirin - vascular surgery consulted # acute UTI - asymptomatic - patient on antibiotics for above - follow blood cultures # lactic acidosis - secondary to acute infection - resolved with IV fluids # diabetes - hold oral antihyperglycemics - continue home insulin - will add low-dose sliding scale insulin # history of cardiomyopathy - no evidence of exacerbation or fluid overload - continue home furosemide # history of CAD - continue carvedilol/aspirin DVT Prophylaxis: Lovenox given patient's need for further evaluation, IV antibiotics, patient will require a minimum 2 nights inpatient hospital stay for further management and monitoring Time Spent With Patient Time: Total time managing care of this patient today ____ minutes. Quality Stroke Does the patient have a stroke diagnosis?: No VTE Prior VTE?: No VTE Risk Level:: Medical - moderate - high VTE Device Contraindication: Treatment Not Indicated VTE Drug Contraindication: N/A - Med Ordered
[2022-11-14] MEDS: Lactated Ringers 1,000 ML 100 ML IVCONT (23:36)
[2022-11-14] MEDS: 0.9 % Sodium Chloride Flush 3 ML SYRINGE IVFLUSH (23:36)
[2022-11-14] MEDS: cefEPime HCl 2 GM in 0.9 % Sodium Chloride 50 ML IV (23:42)
[2022-11-15] VITALS (8 sets, daily range): BP systolic 121–163; BP diastolic 57–74; PULSE 66–77; RESP 17–20; TEMP 35.9–36.6; O2SAT 96–99; BMI 35.3
[2022-11-15 01:11] LABS: Glucose, Whole Blood 178 mg/dL (60-115)
[2022-11-15 05:27] LABS: MANUAL DIFF FLAG NO
[2022-11-15 05:32] LABS: Basophils Absolute Auto 0.1 X10*3/uL (0.0-0.2); Basophils Percent Auto 0.8 % (0-2); Eosinophils Absolute Auto 0.5 X10*3/uL (0.0-0.4); Eosinophils Percent Auto 5.2 % (0-4); Hematocrit 42.8 % (42.0-52.0); Hemoglobin 13.4 g/dl (14.0-18.0); Imm Gran Abs Auto 0.02 X10*3/uL (0.00-0.03); Imm Gran Pct Auto 0.2 % (0.0-0.4); Lymphocytes Absolute Auto 2.2 X10*3/uL (1.2-4.9); Lymphocytes Percent Auto 21.4 % (20-40); Mean Corpuscular HGB Conc 31.3 g/dl (31.0-36.0); Mean Corpuscular Hemoglobin 29.6 pg (27.0-33.0); Mean Corpuscular Volume 94.5 fL (80.0-98.0); Mean Platelet Volume 10.3 fL (9.4-12.4); Monocytes Absolute Auto 0.9 X10*3/uL (0.1-1.2); Monocytes Percent Auto 8.6 % (2-11); Neutrophils Absolute Auto 6.4 x10*3/uL (2.0-8.3); Neutrophils Percent Auto 63.8 % (45-73); Platelet Count 186 X10*3/uL (160-400); Red Blood Count 4.53 X10*6/uL (4.60-5.80); Red Cell Distribution Width 14.9 % (11.0-16.0); White Blood Count 10.1 X10*3/uL (4.8-10.8)
[2022-11-15 05:48] LABS: Anion Gap 12 (12-20); Blood Urea Nitrogen 21 mg/dL (9-16); Calcium 8.6 mg/dL (8.4-10.2); Carbon Dioxide 23 mmol/L (22-29); Chloride 107 mmol/L (96-108); Creatinine Clr Calc Pharmacy 76.1; Estimated Glomerular Filt Rate > 60; Glucose Random 204 mg/dL (60-115); Potassium 4.7 mmol/L (3.3-5.1); Sodium 137 mmol/L (135-145)
--- NOTE | 2022-11-15 08:34 | PHA.MEDREC ---
Pharmacy Consult ? Medication Reconciliation Pharmacy has completed the medication reconciliation. spoke with patient through an aircraft pilot. He provided a list for his oral medications and confirmed the remainder. He claims he only had insulin yesterday.
[2022-11-15] MEDS: Albuterol/Iprat 2.5/0.5MG 3 ML AMPUL.NEB INHALE (09:16)
[2022-11-15] MEDS: oxyCODONE HCl Immed Release 5 MG TABLET PO ×3 (09:51→22:40)
[2022-11-15] MEDS: Isosorbide Mononitrate 30 MG TAB.ER.24H PO (09:51)
[2022-11-15] MEDS: Aspirin Enteric Coated 81 MG TABLET.DR PO (09:51)
[2022-11-15] MEDS: metFORMIN HCl 1,000 MG TABLET 1000 MG PO ×2 (09:51→17:14)
[2022-11-15] MEDS: Furosemide 40 MG TABLET PO (09:51)
[2022-11-15] MEDS: Enoxaparin Sodium 40 MG/0.4 ML SYRINGE SUBCUT (09:52)
[2022-11-15] MEDS: carvediloL 25 MG TABLET PO ×2 (09:52→22:41)
[2022-11-15] MEDS: Lactated Ringers 1,000 ML 100 ML IVCONT ×2 (09:58→22:41)
[2022-11-15] MEDS: cefEPime HCl 2 GM in 0.9 % Sodium Chloride 50 ML IV ×2 (09:59→17:31)
--- NOTE | 2022-11-15 11:01 | HO.PM.IMPN ---
Subjective Subjective Date of Service: 11/15/22 Interval History: Follow up cellulitis diabetic leg wound Cardiovascular Cardiovascular: Reports no additional cardiovascular complaints Gastrointestinal Gastrointestinal: Reports no additional gastrointestinal complaints Physical Exam Vital Signs: Vital Signs: Last Vital Signs Temp 98 F 11/15/22 07:56 Pulse 74 11/15/22 09:19 Resp 20 11/15/22 09:19 BP 136/64 11/15/22 07:56 Pulse Ox 96 11/15/22 07:56 O2 Del Method Room Air 11/15/22 07:56 BMI result Body Mass Index 35.3 Appearing in no acute distress lung sounds are clear to auscultation heart regular rate rhythm, clear S1, S2 positive bowel sounds, abdomen is soft, nontender neuro patient is alert x3, no focal deficits Objective Data Active Medications Acetaminophen (Acetaminophen 325 Mg Tablet) 650 mg PO Q6H PRN PRN Reason: Pain, Mild (Pain Scale 1-3) Albuterol/Ipratropium (Albuterol/Iprat 2.5/0.5mg 3 Ml Ampul.Neb) 3 ml INHALE RQ4H PRN PRN Reason: Shortness of Breath/Wheezing Last Admin: 11/15/22 09:16 Dose: 3 ml Documented By: KIM Aspirin (Aspirin Enteric Coated 81 Mg Tablet.Dr) 81 mg PO DAILY [facility] Last Admin: 11/15/22 09:51 Dose: 81 mg Documented By: SABINA Atorvastatin Calcium (Atorvastatin Calcium 80 Mg Tablet) 80 mg PO BEDTIME [facility] Carvedilol (Carvedilol 25 Mg Tablet) 25 mg PO BID [facility]; Protocol Last Admin: 11/15/22 09:52 Dose: 25 mg Documented By: SABINA Docusate Sodium (Docusate Sodium 100 Mg Capsule) 100 mg PO DAILY PRN PRN Reason: Constipation Enoxaparin Sodium (Enoxaparin Sodium 40 Mg/0.4 Ml Syringe) 40 mg SUBCUT Q24H [facility] Last Admin: 11/15/22 09:52 Dose: 40 mg Documented By: SABINA Furosemide (Furosemide 40 Mg Tablet) 40 mg PO DAILY [facility]; Protocol Last Admin: 11/15/22 09:51 Dose: 40 mg Documented By: SABINA Cefepime HCl 2 gm/ Sodium (Chloride) 50 mls @ 100 mls/hr IV Q8H [facility] Last Admin: 11/15/22 09:59 Dose: 100 mls/hr Documented By: SABINA Lactated Ringer's (Lr) 1,000 mls @ 100 mls/hr IVCONT .Q10H [facility] Last Admin: 11/15/22 09:58 Dose: 100 mls/hr Documented By: SABINA Insulin Glargine (Insulin Glargine,Hum.Rec.Anlog 100 Unit/Ml 10 Ml Vial) 44 unit SUBCUT BEDTIME [facility] Isosorbide Mononitrate (Isosorbide Mononitrate 30 Mg Tab.Er.24h) 30 mg PO DAILY [facility]; Protocol Last Admin: 11/15/22 09:51 Dose: 30 mg Documented By: SABINA Lisinopril (Lisinopril 40 Mg Tablet) 40 mg PO BEDTIME [facility]; Protocol Metformin HCl (Metformin Hcl 1,000 Mg Tablet) 1,000 mg PO BIDWM [facility] Last Admin: 11/15/22 09:51 Dose: 1,000 mg Documented By: SABINA Morphine Sulfate (Morphine Sulfate 4 Mg/Ml Cartridge) 4 mg IVPUSH Q4H PRN; Protocol PRN Reason: Pain, Severe (Pain Scale 7-10) Last Admin: 11/14/22 23:42 Dose: 4 mg Documented By: EDUAR Omeprazole (Omeprazole 20 Mg Capsule.Dr) 20 mg PO DAILY@0630 [facility] Ondansetron HCl (Ondansetron Hcl 4 Mg/2 Ml Vial) 4 mg IVPUSH Q8H PRN PRN Reason: Nausea and Vomiting Oxycodone HCl (Oxycodone Hcl Immed Release 5 Mg Tablet) 5 mg PO Q12H PRN PRN Reason: severe pain Last Admin: 11/15/22 09:51 Dose: 5 mg Documented By: SABINA Sodium Chloride (0.9 % Sodium Chloride Flush 3 Ml Syringe) 3 ml IVFLUSH QSHIFT [facility] Last Admin: 11/15/22 09:53 Dose: Not Given Documented By: SABINA Non-Admin Reason: IV Running Tiotropium [place] (Tiotropium [place] 18 Mcg Cap.W.Dev) 2 puff INHALE RDAILY [facility] Last Admin: 11/15/22 09:17 Dose: 2 puff Documented By: KIM Castellon 11/15/22 05:21 11/15/22 05:21 Labs: Laboratory Results - last 24 hr 11/14/22 11/14/22 11/14/22 15:52 15:52 15:52 MCV 92.7 MCH 29.6 MCHC 31.9 RDW 14.8 Plt Count 185 MPV 10.1 Immature Gran % (Auto) 0.4 Neut % (Auto) 72.9 Lymph % (Auto) 15.1 L Armstrong % (Auto) 7.0 Eos % (Auto) 3.9 Baso % (Auto) 0.7 Lymph # (Auto) 1.4 Armstrong # (Auto) 0.7 Eos # (Auto) 0.4 Baso # (Auto) 0.1 Abs Immat Gran (auto) 0.04 H Absolute Neuts (auto) 6.8 Absolute Nucleated RBC 0.000 Nucleated RBC % (auto) 0.0 ESR Anion Gap 12 Estim Creat Clear Calc 78.0 Estimated GFR > 60 POC Glucose Random Glucose 230 H Lactic Acid 2.6 H* Lactic Acid F/U @ 2Hr Calcium 8.8 D Total Bilirubin 1.1 H AST 19 ALT 21 Alkaline Phosphatase 78 C-Reactive Protein 1.85 H Total Protein 6.4 L Albumin 3.7 Lipase 11 Urine Color Urine Appearance Urine pH Ur Specific [place] Urine Protein Urine Glucose (UA) Urine Ketones Urine Blood Urine Nitrite Ur Leukocyte Esterase Urine RBC Urine WBC Urine WBC Clumps Ur Squamous Epith Cells Ur Transition Epith Cell Ur Renal Epithelial Cell Calcium Oxalate Crystal Leucine Crystals Cystine Crystals Tyrosine Crystals Other Crystals Urine Bacteria Urine Parasites Bilirubin Casts Epithelial Casts Fatty Casts Hyaline Casts Granular Casts Waxy Casts Broad Casts RBC Casts WBC Casts Other Casts Urine Trichomonas Urine Yeast 11/14/22 11/14/22 11/14/22 15:52 18:26 19:40 MCV MCH MCHC RDW Plt Count MPV Immature Gran % (Auto) Neut % (Auto) Lymph % (Auto) Armstrong % (Auto) Eos % (Auto) Baso % (Auto) Lymph # (Auto) Armstrong # (Auto) Eos # (Auto) Baso # (Auto) Abs Immat Gran (auto) Absolute Neuts (auto) Absolute Nucleated RBC Nucleated RBC % (auto) ESR 5 Anion Gap Estim Creat Clear Calc Estimated GFR POC Glucose Random Glucose Lactic Acid Lactic Acid F/U @ 2Hr 1.6 Calcium Total Bilirubin AST ALT Alkaline Phosphatase C-Reactive Protein Total Protein Albumin Lipase Urine Color Dark Yellow Urine Appearance Clear Urine pH 6.[address] [place] >= 1.030 H Urine Protein 100 (2+) H Urine Glucose (UA) >=1000 H Urine Ketones Trace Urine Blood Large (3+) H Urine Nitrite Negative Ur Leukocyte Esterase Small (1+) H Urine RBC >20 H Urine WBC 21-50 H Urine WBC Clumps Ur Squamous Epith Cells 3-5 Ur Transition Epith Cell Ur Renal Epithelial Cell Calcium Oxalate Crystal Leucine Crystals Cystine Crystals Tyrosine Crystals Other Crystals Urine Bacteria None Seen Urine Parasites Bilirubin Casts Epithelial Casts Fatty Casts Hyaline Casts 0-2 Granular Casts Waxy Casts Broad Casts RBC Casts WBC Casts Other Casts Urine Trichomonas Urine Yeast 11/14/22 11/15/22 11/15/22 19:40 01:06 05:21 MCV 94.5 MCH 29.6 MCHC 31.3 RDW 14.9 Plt Count 186 MPV 10.3 Immature Gran % (Auto) 0.2 Neut % (Auto) 63.8 Lymph % (Auto) 21.4 Armstrong % (Auto) 8.6 Eos % (Auto) 5.2 H Baso % (Auto) 0.8 Lymph # (Auto) 2.2 Armstrong # (Auto) 0.9 Eos # (Auto) 0.5 H Baso # (Auto) 0.1 Abs Immat Gran (auto) 0.02 Absolute Neuts (auto) 6.4 Absolute Nucleated RBC 0.000 Nucleated RBC % (auto) 0.0 ESR Anion Gap Estim Creat Clear Calc Estimated GFR POC Glucose 178 H Random Glucose Lactic Acid Lactic Acid F/U @ 2Hr Calcium Total Bilirubin AST ALT Alkaline Phosphatase C-Reactive Protein Total Protein Albumin Lipase Urine Color Cancelled Urine Appearance Cancelled Urine pH Cancelled Ur Specific [place] Cancelled Urine Protein Cancelled Urine Glucose (UA) Cancelled Urine Ketones Cancelled Urine Blood Cancelled Urine Nitrite Cancelled Ur Leukocyte Esterase Cancelled Urine RBC Cancelled Urine WBC Cancelled Urine WBC Clumps Cancelled Ur Squamous Epith Cells Cancelled Ur Transition Epith Cell Cancelled Ur Renal Epithelial Cell Cancelled Calcium Oxalate Crystal Cancelled Leucine Crystals Cancelled Cystine Crystals Cancelled Tyrosine Crystals Cancelled Other Crystals Cancelled Urine Bacteria Cancelled Urine Parasites Cancelled Bilirubin Casts Cancelled Epithelial Casts Cancelled Fatty Casts Cancelled Hyaline Casts Cancelled Granular Casts Cancelled Waxy Casts Cancelled Broad Casts Cancelled RBC Casts Cancelled WBC Casts Cancelled Other Casts Cancelled Urine Trichomonas Cancelled Urine Yeast Cancelled 11/15/22 05:21 MCV MCH MCHC RDW Plt Count MPV Immature Gran % (Auto) Neut % (Auto) Lymph % (Auto) Armstrong % (Auto) Eos % (Auto) Baso % (Auto) Lymph # (Auto) Armstrong # (Auto) Eos # (Auto) Baso # (Auto) Abs Immat Gran (auto) Absolute Neuts (auto) Absolute Nucleated RBC Nucleated RBC % (auto) ESR Anion Gap 12 Estim Creat Clear Calc 76.1 Estimated GFR > 60 POC Glucose Random Glucose 204 H Lactic Acid Lactic Acid F/U @ 2Hr Calcium 8.6 Total Bilirubin AST ALT Alkaline Phosphatase C-Reactive Protein Total Protein Albumin Lipase Urine Color Urine Appearance Urine pH Ur Specific [place] Urine Protein Urine Glucose (UA) Urine Ketones Urine Blood Urine Nitrite Ur Leukocyte Esterase Urine RBC Urine WBC Urine WBC Clumps Ur Squamous Epith Cells Ur Transition Epith Cell Ur Renal Epithelial Cell Calcium Oxalate Crystal Leucine Crystals Cystine Crystals Tyrosine Crystals Other Crystals Urine Bacteria Urine Parasites Bilirubin Casts Epithelial Casts Fatty Casts Hyaline Casts Granular Casts Waxy Casts Broad Casts RBC Casts WBC Casts Other Casts Urine Trichomonas Urine Yeast Assessment and Plan (1) UTI (urinary tract infection): Status: Acute Plan 62-year-old male with past medical history of peripheral vascular disease presents to the hospital with complaints of pain and nonhealing wound in the right lower extremity Nonhealing wound of right lower extremity history of PAD ,? with recent aortogram by vascular surgery showing bilateral total SFA occlusion will consult ID for further recommendation as wound appears clean will?consult vascular surgery cefepime for now Lower extremity arterial occlusion / PVD statin and aspirin vascular surgery consulted Acute UTI asymptomatic patient on antibiotics for above follow urine/blood cultures Lactic acidosis secondary to?acute infection resolved with IV fluids DM2 ss, ada diet History of cardiomyopathy no evidence of exacerbation or fluid overload continue home furosemide History of CAD continue carvedilol/aspirin DVT? Prophylaxis:? Regine Attending Dr. Royal hospital stay for further management and monitoring of cellulitis requiring IV abx Time Spent With Patient Time: Total time managing care of this patient today ____ minutes. Quality Stroke Does the patient have a stroke diagnosis?: No VTE Prior VTE?: No VTE Risk Level:: Medical - moderate - high VTE Device Contraindication: Treatment Not Indicated VTE Drug Contraindication: N/A - Med Ordered
--- NOTE | 2022-11-15 17:49 | PC.NURSE ---
Patient A&OX4. Neurologically intact. MUSA to command 5/5 except RLE d/t pain from wounds to [place]. Wound beds dry no drainage surrounding skin dark pink/purplish in color per patient slightly decreased sensation to RLE. Refusing bed alarm steady on feet although limps on right d/t pain in leg. PRN oxycodone given this am with good effect. Funmilayo Smith [employer] notified in afternoon oxycodone changed from Q12 to Q8 hours for better pain control. IV fluids infusing per order as well as antibiotics. Voiding in urinal initially dark concentrated mid afternoon clear yellow. Will continue to monitor and report changes
[2022-11-15] MEDS: Atorvastatin Calcium 80 MG TABLET PO (22:41)
[2022-11-15] MEDS: lisinopriL 40 MG TABLET PO (22:41)
[2022-11-15 22:42] LABS: Glucose, Whole Blood 140 mg/dL (60-115)
[2022-11-16] MEDS: cefEPime HCl 2 GM in 0.9 % Sodium Chloride 50 ML IV ×2 (02:02→09:13)
[2022-11-16 04:00] VITALS: BP 116/56; PULSE 54; RESP 18; TEMP 36.2; O2SAT 98
[2022-11-16] MEDS: guaiFENesin DM 100/10/5 ML 5 ML SYRUP PO (05:04)
[2022-11-16] MEDS: Omeprazole 20 MG CAPSULE.DR PO (05:05)
[2022-11-16 07:27] LABS: Anion Gap 15 (12-20); Blood Urea Nitrogen 18 mg/dL (9-16); Calcium 8.6 mg/dL (8.4-10.2); Carbon Dioxide 22 mmol/L (22-29); Chloride 102 mmol/L (96-108); Creatinine Clr Calc Pharmacy 100.3; Estimated Glomerular Filt Rate > 60; Glucose Random 145 mg/dL (60-115); Potassium 4.4 mmol/L (3.3-5.1); Sodium 135 mmol/L (135-145)
[2022-11-16 07:53] VITALS: BP 133/53; PULSE 63; RESP 20; TEMP 36.2; O2SAT 96
[2022-11-16 08:04] VITALS: PULSE 77; RESP 20; O2SAT 95
[2022-11-16] MEDS: carvediloL 25 MG TABLET PO (09:10)
[2022-11-16] MEDS: metFORMIN HCl 1,000 MG TABLET 1000 MG PO ×2 (09:12→17:47)
[2022-11-16] MEDS: Furosemide 40 MG TABLET PO ×2 (09:12→20:54)
[2022-11-16] MEDS: Isosorbide Mononitrate 30 MG TAB.ER.24H PO (09:12)
[2022-11-16] MEDS: oxyCODONE HCl Immed Release 5 MG TABLET PO ×2 (09:12→17:49)
[2022-11-16] MEDS: Aspirin Enteric Coated 81 MG TABLET.DR PO (09:12)
--- NOTE | 2022-11-16 09:12 | MHC.CM.PN ---
MIKEY DELIVERED. ASSESSMENT DONE WITH BARREL POLISHER INSIDE. PT LIVES ALONE IN AN APT. USES A CANE FOR MOBILITY. HAS A NEBULIZER MACHINE. + HCP ON FILE. +COVID VAX X4 PCP DR. MOREJON AT [facility]. DP: HOME WITH SERVICES? PT IS NOT CURRENTLY ACTIVE WITH AN AGENCY AND IS NOT SURE HE WANTS ONE. CM WILL CONTINUE TO FOLLOW FOR DC PLAN.
[2022-11-16] MEDS: Enoxaparin Sodium 40 MG/0.4 ML SYRINGE SUBCUT (09:13)
[2022-11-16] MEDS: 0.9 % Sodium Chloride Flush 3 ML SYRINGE IVFLUSH (09:14)
--- NOTE | 2022-11-16 11:42 | P.PNIM_ITS ---
Subjective Subjective Date of Service: 11/16/22 Interval History: Follow up cellulitis diabetic leg wound Cardiovascular Cardiovascular: Reports no additional cardiovascular complaints Gastrointestinal Gastrointestinal: Reports no additional gastrointestinal complaints Physical Exam Vital Signs: Vital Signs: Last Vital Signs Temp 97.1 F 11/16/22 07:53 Pulse 77 11/16/22 08:04 Resp 20 11/16/22 08:04 BP 133/53 L 11/16/22 07:53 Pulse Ox 96 11/16/22 07:53 O2 Del Method Room Air 11/16/22 07:53 BMI result Body Mass Index 35.3 Appearing in no acute distress lung sounds are clear to auscultation heart regular rate rhythm, clear S1, S2 positive bowel sounds, abdomen is soft, nontender neuro patient is alert x3, no focal deficits Objective Data Active Medications Acetaminophen (Acetaminophen 325 Mg Tablet) 650 mg PO Q6H PRN PRN Reason: Pain, Mild (Pain Scale 1-3) Albuterol/Ipratropium (Albuterol/Iprat 2.5/0.5mg 3 Ml Ampul.Neb) 3 ml INHALE RQ4H PRN PRN Reason: Shortness of Breath/Wheezing Last Admin: 11/15/22 09:16 Dose: 3 ml Documented By: KIM Aspirin (Aspirin Enteric Coated 81 Mg Tablet.Dr) 81 mg PO DAILY [facility] Last Admin: 11/16/22 09:12 Dose: 81 mg Documented By: CLAIRE Atorvastatin Calcium (Atorvastatin Calcium 80 Mg Tablet) 80 mg PO BEDTIME [facility] Last Admin: 11/15/22 22:41 Dose: 80 mg Documented By: ADILIA Carvedilol (Carvedilol 25 Mg Tablet) 25 mg PO BID [facility]; Protocol Last Admin: 11/16/22 09:10 Dose: 25 mg Documented By: CLAIRE Docusate Sodium (Docusate Sodium 100 Mg Capsule) 100 mg PO DAILY PRN PRN Reason: Constipation Enoxaparin Sodium (Enoxaparin Sodium 40 Mg/0.4 Ml Syringe) 40 mg SUBCUT Q24H [facility] Last Admin: 11/16/22 09:13 Dose: 40 mg Documented By: CLAIRE Furosemide (Furosemide 40 Mg Tablet) 40 mg PO DAILY [facility]; Protocol Last Admin: 11/16/22 09:12 Dose: 40 mg Documented By: CLAIRE Guaifenesin/Dextromethorphan (Guaifenesin Dm 100/10/5 Ml 5 Ml Syrup) 5 ml PO Q4H PRN PRN Reason: cough Last Admin: 11/16/22 05:04 Dose: 5 ml Documented By: ADILIA Cefepime HCl 2 gm/ Sodium (Chloride) 50 mls @ 100 mls/hr IV Q8H [facility] Last Infusion: 11/16/22 11:05 Dose: 100 mls/hr Documented By: CLAIRE Lactated Ringer's (Lr) 1,000 mls @ 100 mls/hr IVCONT .Q10H [facility] Last Infusion: 11/16/22 11:04 Dose: 0 mls/hr Documented By: CLAIRE Insulin Glargine (Insulin Glargine,Hum.Rec.Anlog 100 Unit/Ml 10 Ml Vial) 44 unit SUBCUT BEDTIME [facility] Last Admin: 11/15/22 22:38 Dose: Not Given Documented By: ADILIA Non-Admin Reason: No Insulin Coverage Isosorbide Mononitrate (Isosorbide Mononitrate 30 Mg Tab.Er.24h) 30 mg PO DAILY [facility]; Protocol Last Admin: 11/16/22 09:12 Dose: 30 mg Documented By: CLAIRE Lisinopril (Lisinopril 40 Mg Tablet) 40 mg PO BEDTIME [facility]; Protocol Last Admin: 11/15/22 22:41 Dose: 40 mg Documented By: ADILIA Metformin HCl (Metformin Hcl 1,000 Mg Tablet) 1,000 mg PO BIDWM [facility] Last Admin: 11/16/22 09:12 Dose: 1,000 mg Documented By: CLAIRE Morphine Sulfate (Morphine Sulfate 4 Mg/Ml Cartridge) 4 mg IVPUSH Q4H [facility]; Protocol PRN Reason: Pain, Severe (Pain Scale 7-10) Last Admin: 11/14/22 23:42 Dose: 4 mg Documented By: EDUAR Omeprazole (Omeprazole 20 Mg Capsule.) 20 mg PO DAILY@0630 [facility] Last Admin: 11/16/22 05:05 Dose: 20 mg Documented By: ADILIA Ondansetron HCl (Ondansetron Hcl 4 Mg/2 Ml Vial) 4 mg IVPUSH Q8H PRN PRN Reason: Nausea and Vomiting Oxycodone HCl (Oxycodone Hcl Immed Release 5 Mg Tablet) 5 mg PO Q8H PRN PRN Reason: severe pain Last Admin: 11/16/22 09:12 Dose: 5 mg Documented By: CLAIRE Sodium Chloride (0.9 % Sodium Chloride Flush 3 Ml Syringe) 3 ml IVFLUSH QSHIFT [facility] Last Admin: 11/16/22 09:14 Dose: 3 ml Documented By: CLAIRE Tiotropium [place] (Tiotropium [place] 18 Mcg Cap.W.Dev) 1 puff INHALE RDAILY [facility] Labs 11/15/22 05:21 11/16/22 06:04 Labs: Laboratory Results - last 24 hr 11/15/22 11/16/22 22:37 06:04 Anion Gap 15 Estim Creat Clear Calc 100.3 Estimated GFR > 60 POC Glucose 140 H Random Glucose 145 H Calcium 8.6 Microbiology Microbiology Results: Microbiology 11/14/22 Unknown Urine Culture - Final Urine clean catch - Urine roche top No growth. 11/14/22 16:54 Blood Culture - Preliminary Blood - Venous No growth after 24 hours. 11/14/22 15:52 Blood Culture - Preliminary Blood - Venous No growth after 24 hours. Assessment and Plan (1) UTI (urinary tract infection): Status: Acute Plan 62-year-old male with past medical history of peripheral vascular disease presents to the hospital with complaints of pain and nonhealing wound in the right lower extremity Nonhealing wound of right lower extremity history of PAD ,? with recent aortogram by vascular surgery showing bilateral total SFA occlusion Seen by vascular surgery for rec>Needs cardio risk stratification for vascular surgery, needs bipass vs BKA no needs for wound debridement as wounds are chronically dry cefepime for now Lower extremity arterial occlusion / PVD statin and aspirin vascular surgery following Acute UTI asymptomatic patient on antibiotics for above follow urine/blood cultures Lactic acidosis secondary to?acute infection resolved with IV fluids DM2 ss, ada diet History of cardiomyopathy no evidence of exacerbation or fluid overload continue home furosemide History of CAD continue carvedilol/aspirin DVT? Prophylaxis:? Regine Attending Dr. Etienne hospital stay for further management and monitoring of cellulitis requiring IV abx Time Spent With Patient Time: Total time managing care of this patient today ____ minutes. Quality Stroke Does the patient have a stroke diagnosis?: No VTE Prior VTE?: No VTE Risk Level:: Medical - moderate - high VTE Device Contraindication: Treatment Not Indicated VTE Drug Contraindication: N/A - Med Ordered
[2022-11-16 12:00] VITALS: BP 120/56; PULSE 62; RESP 20; TEMP 36.3; O2SAT 98
--- NOTE | 2022-11-16 12:16 | PM.CNGS ---
History of Present Illness Consult details Consult date: 11/16/22 Reason for consult: wound care Narrative: Very complex 62-year-old gentleman presents to us for evaluation regarding nonhealing right lower extremity ulcers. Is well known to us and has seen us for prior angiogram. He has had prior endovascular intervention at an outside institution. The stents have gone on to occlude. We were trying to manage him as conservatively as possible but he has developed intractable pain and these right pretibial ulcerations. Prior endovascular intervention that was performed showed that it was not amenable to endovascular intervention in he would require fem distal bypass if he could tolerate this. He now presents for hospital evaluation. Review of Systems Review of Systems: Yes all other systems are reviewed and are negative Constitutional: Constitutional: Reports no additional constitutional complaints ENT: Reports Normal hearing present Cardiovascular: Cardiovascular: Denies chest pain, Denies chest pain at rest, Denies chest pain with activity and Denies pedal edema Respiratory: Respiratory: Denies cough Gastrointestinal: Gastrointestinal: Denies abdominal pain Musculoskeletal: Musculoskeletal: Denies abnormal gait, Denies muscle cramps and Denies radiating pain into limb Integumentary/Breasts: Skin/Breast: Denies skin ulcer and Denies wounds Neurologic: Reports Normal hearing present and Denies abnormal gait Psychiatric: Psychiatric: Reports no additional psychiatric complaints PMFSH Past Medical History Medical History Abscess, perineum Asthma Diabetes High cholesterol HTN (hypertension) Family History Family History Father No problems noted. Mother Diabetes HTN (hypertension) Sister No problems noted. Sister Diabetes HTN (hypertension) Sister No problems noted. Surgical History Surgical History History of cardiac cath Hx of varicose vein stripping S/P angiogram of extremity Social History Social History Household Members: None Housing: Apartment Housing Other:: elderly housing Do you presently have visiting nurse or other home services: Yes Alcohol intake: never Patient Tobacco Use Status: Current everyday Tobacco user Tobacco use type: Cigarette Cigarette Packs Per Day: 0.5 Cigarettes Per Day: 10 Years Smoked: 15+/- Smoked in Last 30 Days: Yes Patient Interested in Nicotine Replacement: No Second Hand Smoke Exposure: No Use of substances other than those prescribed or required for medical reasons: No Currently Displaying Signs/Symptoms of Drug Intoxication Withdrawal: No Have you been hit, kicked, punched, or otherwise hurt by someone within the past year? If so, by whom?: No Do you feel safe in your current relationship?: No Current Relationship Is there a partner from a previous relationship who is making you feel unsafe now?: No Are you made to feel afraid or neglected: No Advance Directives: Yes Advance Directives on File: Yes Advance Directives Date on File: 12/10/20 Do you have thoughts of harming others: None Do you have a plan to hurt others: No Plan Recently lost weight without trying: Unsure Eating poorly because of decreased appetite: No Nutrition Risks: No Nutritional Risk Poor oral hygiene: No service: No Current occupational status: disabled Meds Allergies Allergy/AdvReac Type Severity Reaction Status Date / Time No Known Drug Allergies Allergy Unknown UNKNOWN Verified 10/27/22 12:33 Active Medications: Current Medications Acetaminophen (Acetaminophen 325 Mg Tablet) 650 mg PO Q6H PRN PRN Reason: Pain, Mild (Pain Scale 1-3) Albuterol/Ipratropium (Albuterol/Iprat 2.5/0.5mg 3 Ml Ampul.Neb) 3 ml INHALE RQ4H PRN PRN Reason: Shortness of Breath/Wheezing Last Admin: 11/15/22 09:16 Dose: 3 ml Aspirin (Aspirin Enteric Coated 81 Mg Tablet.) 81 mg PO DAILY [facility] Last Admin: 11/16/22 09:12 Dose: 81 mg Atorvastatin Calcium (Atorvastatin Calcium 80 Mg Tablet) 80 mg PO BEDTIME [facility] Last Admin: 11/15/22 22:41 Dose: 80 mg Carvedilol (Carvedilol 25 Mg Tablet) 25 mg PO BID [facility]; Protocol Last Admin: 11/16/22 09:10 Dose: 25 mg Docusate Sodium (Docusate Sodium 100 Mg Capsule) 100 mg PO DAILY PRN PRN Reason: Constipation Enoxaparin Sodium (Enoxaparin Sodium 40 Mg/0.4 Ml Syringe) 40 mg SUBCUT Q24H [facility] Last Admin: 11/16/22 09:13 Dose: 40 mg Furosemide (Furosemide 40 Mg Tablet) 40 mg PO DAILY [facility]; Protocol Last Admin: 11/16/22 09:12 Dose: 40 mg Guaifenesin/Dextromethorphan (Guaifenesin Dm 100/10/5 Ml 5 Ml Syrup) 5 ml PO Q4H PRN PRN Reason: cough Last Admin: 11/16/22 05:04 Dose: 5 ml Cefepime HCl 2 gm/ Sodium (Chloride) 50 mls @ 100 mls/hr IV Q8H [facility] Last Infusion: 11/16/22 11:55 Dose: Infused Lactated Ringer's (Lr) 1,000 mls @ 100 mls/hr IVCONT .Q10H [facility] Last Infusion: 11/16/22 11:04 Dose: Infused Insulin Glargine (Insulin Glargine,Hum.Rec.Anlog 100 Unit/Ml 10 Ml Vial) 44 unit SUBCUT BEDTIME [facility] Last Admin: 11/15/22 22:38 Dose: Not Given Isosorbide Mononitrate (Isosorbide Mononitrate 30 Mg Tab.Er.24h) 30 mg PO DAILY [facility]; Protocol Last Admin: 11/16/22 09:12 Dose: 30 mg Lisinopril (Lisinopril 40 Mg Tablet) 40 mg PO BEDTIME [facility]; Protocol Last Admin: 11/15/22 22:41 Dose: 40 mg Metformin HCl (Metformin Hcl 1,000 Mg Tablet) 1,000 mg PO BIDWM [facility] Last Admin: 11/16/22 09:12 Dose: 1,000 mg Morphine Sulfate (Morphine Sulfate 4 Mg/Ml Cartridge) 4 mg IVPUSH Q4H PRN; Protocol PRN Reason: Pain, Severe (Pain Scale 7-10) Last Admin: 11/14/22 23:42 Dose: 4 mg Omeprazole (Omeprazole 20 Mg Capsule.Dr) 20 mg PO DAILY@0630 [facility] Last Admin: 11/16/22 05:05 Dose: 20 mg Ondansetron HCl (Ondansetron Hcl 4 Mg/2 Ml Vial) 4 mg IVPUSH Q8H PRN PRN Reason: Nausea and Vomiting Oxycodone HCl (Oxycodone Hcl Immed Release 5 Mg Tablet) 5 mg PO Q8H PRN PRN Reason: severe pain Last Admin: 11/16/22 09:12 Dose: 5 mg Sodium Chloride (0.9 % Sodium Chloride Flush 3 Ml Syringe) 3 ml IVFLUSH QSHIFT [facility] Last Admin: 11/16/22 09:14 Dose: 3 ml Tiotropium [place] (Tiotropium [place] 18 Mcg Cap.W.Dev) 1 puff INHALE RDAILY [facility] Home Medications Medication Instructions Recorded Confirmed Last Taken Type aspirin 81 mg tablet,delayed 81 mg PO DAILY 12/10/20 11/14/22 12/09/20 History release atorvastatin 80 mg tablet 80 mg PO BEDTIME 12/10/20 11/14/22 12/09/20 History insulin glargine 100 unit/mL (3 44 unit subcut BEDTIME 12/10/20 11/14/22 11/14/22 History mL) subcutaneous pen (Lantus Solostar U-100 Insulin) insulin lispro 100 unit/mL 10 unit subcut TIDAC 12/10/20 11/15/22 11/14/22 History subcutaneous pen (Humalog KwikPen (U-100) Insulin) lisinopril 40 mg tablet 40 mg PO BEDTIME 03/23/22 11/14/22 Unknown History empagliflozin 25 mg tablet 25 mg PO DAILY 08/18/22 11/15/22 Unknown History (Jardiance) metformin 1,000 mg tablet 1,000 mg PO BIDWM 08/18/22 11/15/22 Unknown History ipratropium 20 mcg-albuterol 100 1 puff inhalation QID PRN 11/14/22 11/14/22 Unknown History mcg/actuation mist for inhalation Bronchospasm (Combivent Respimat) pantoprazole 20 mg tablet,delayed 20 mg PO QAM 11/14/22 11/14/22 Unknown History release tiotropium bromide 2.5 2 puff inhalation DAILY 11/14/22 11/14/22 Unknown History mcg/actuation mist for inhalation (Spiriva Respimat) Physical Exam Vital Signs: Vital Signs: Last Vital Signs Temp 97.1 F 11/16/22 07:53 Pulse 77 11/16/22 08:04 Resp 20 11/16/22 08:04 BP 133/53 L 11/16/22 07:53 Pulse Ox 96 11/16/22 07:53 O2 Del Method Room Air 11/16/22 07:53 BMI result Body Mass Index 35.3 Const: General: cooperative, healthy appearing and comfortable Orientation/consciousness: oriented to person, oriented to place and oriented to time HEENT: Head: Yes normal to inspection Neck: Neck: Yes normal visual inspection Carotids: no bruits Chest: Chest palpation & inspection: normal inspection of the chest Resp: Effort & Inspection: normal respiratory effort and able to speak in complete sentences Auscultation: clear to auscultation bilaterally, no crackles, no rales, no rhonchi and no wheezes Cardio: Other: Bilateral DP signals Rate: regular rate Rhythm: regular rhythm Heart sounds: S1 normal heart sound present and S2 normal heart sound present Bruits: no carotid bruits GI: Inspection: Yes normal to inspection Skin: Other: Right pretibial ulcers x2 Wounds: no wounds Hair: normal Neuro: General: oriented to person, oriented to place and oriented to time Cranial nerves: Yes CN's II-XII intact bilaterally and Yes Normal hearing present Cognition (Neuro): normal cognition Motor exam (neuro): 5/5 motor strength present throughout Extrem: Other: venous exam: No significant superficial varicosities or spider telangiectasias, minimal edema General: No clubbing, No cyanosis and No edema Psych: Appearance: grossly normal Mental Status: mental status grossly normal Speech and movement: Normal speech and movement present Results Labs 11/15/22 05:21 11/16/22 06:04 Labs: Abnormal lab results 11/15/22 11/16/22 Range/Units 22:37 06:04 BUN 18 H (9-16) mg/dL POC Glucose 140 H (60-115) mg/dL Random Glucose 145 H (60-115) mg/dL BMP 11/16/22 06:04 Sodium 135 Potassium 4.4 Chloride 102 Carbon Dioxide 22 BUN 18 H Creatinine 0.82 Calcium 8.6 Urine 11/14/22 11/14/22 Range/Units 19:40 19:40 Urine Color Dark Yellow Cancelled Urine Appearance Clear Cancelled Urine pH 6.5 Cancelled (5.0-9.0) Ur Specific [place] >= 1.030 H Cancelled (1.005-1.025) Urine Protein 100 (2+) H Cancelled (Neg-Trace) mg/dL Urine Glucose (UA) >=1000 H Cancelled (Negative) mg/dL All other labs normal. Assessment and Plan (1) PAD (peripheral artery disease): Status: Acute In short patient has significant peripheral vascular disease. The concern here is his overall cardiac status. At the current time it appears that he has an ejection fraction of 20-25% with significant coronary disease. If we were to proceed with surgery he would require fem distal bypass with use of vein. This would be a 4-6 hour operation under general anesthesia. It is unclear if he would be stable to undergo such an intervention. I did discuss this with the hospitalist team and they will obtain cardiac evaluation and risk stratification. In the meantime I will obtain a CT angiogram with runoff to ensure that this may be amenable to bypass. Thank you for allowing us to assist in his care. If there are any questions or concerns please do not hesitate to contact us. (2) History of cardiac cath: Status: Acute Will require cardiac risk stratification to see if he would be even a candidate for fem distal bypass on the right lower extremity. Time Spent With Patient Time: Total time managing care of this patient today ____ minutes. Procedures Date of Service Date of Service: 11/16/22
--- NOTE | 2022-11-16 14:49 | P.CNID_ITS ---
History of Present Illness Data of Consult Service Date: 11/16/22 Requesting physician: Sylvia Smith Primary Care Provider: [facility] Reason for consult: painful nonhealing ulcer right dennis He presents with right foot as well as right dennis pain. He also had some swelling in scrotum. He has ulcer longstanding right dennis. He has concerning PAD. Review of Systems Review of Systems: Yes all other systems are reviewed and are negative PMFSH Past Medical History Medical History Abscess, perineum Asthma Diabetes High cholesterol HTN (hypertension) Family History Family History Father No problems noted. Mother Diabetes HTN (hypertension) Sister No problems noted. Sister Diabetes HTN (hypertension) Sister No problems noted. Family history: reviewed and not pertinent Surgical History Surgical History History of cardiac cath Hx of varicose vein stripping S/P angiogram of extremity Social History Social History Household Members: None Housing: Apartment Housing Other:: elderly housing Do you presently have visiting nurse or other home services: Yes Alcohol intake: never Patient Tobacco Use Status: Current everyday Tobacco user Tobacco use type: Cigarette Cigarette Packs Per Day: 0.5 Cigarettes Per Day: 10 Years Smoked: 15+/- Smoked in Last 30 Days: Yes Patient Interested in Nicotine Replacement: No Second Hand Smoke Exposure: No Use of substances other than those prescribed or required for medical reasons: No Currently Displaying Signs/Symptoms of Drug Intoxication Withdrawal: No Have you been hit, kicked, punched, or otherwise hurt by someone within the past year? If so, by whom?: No Do you feel safe in your current relationship?: No Current Relationship Is there a partner from a previous relationship who is making you feel unsafe now?: No Are you made to feel afraid or neglected: No Advance Directives: Yes Advance Directives on File: Yes Advance Directives Date on File: 12/10/20 Do you have thoughts of harming others: None Do you have a plan to hurt others: No Plan Recently lost weight without trying: Unsure Eating poorly because of decreased appetite: No Nutrition Risks: No Nutritional Risk Poor oral hygiene: No service: No Current occupational status: disabled Meds Allergies Allergy/AdvReac Type Severity Reaction Status Date / Time No Known Drug Allergies Allergy Unknown UNKNOWN Verified 10/27/22 12:33 Active Medications: Current Medications Acetaminophen (Acetaminophen 325 Mg Tablet) 650 mg PO Q6H PRN PRN Reason: Pain, Mild (Pain Scale 1-3) Albuterol/Ipratropium (Albuterol/Iprat 2.5/0.5mg 3 Ml Ampul.Neb) 3 ml INHALE RQ4H PRN PRN Reason: Shortness of Breath/Wheezing Last Admin: 11/15/22 09:16 Dose: 3 ml Aspirin (Aspirin Enteric Coated 81 Mg Tablet.Dr) 81 mg PO DAILY [facility] Last Admin: 11/16/22 09:12 Dose: 81 mg Atorvastatin Calcium (Atorvastatin Calcium 80 Mg Tablet) 80 mg PO BEDTIME [facility] Last Admin: 11/15/22 22:41 Dose: 80 mg Carvedilol (Carvedilol 25 Mg Tablet) 25 mg PO BID [facility]; Protocol Last Admin: 11/16/22 09:10 Dose: 25 mg Docusate Sodium (Docusate Sodium 100 Mg Capsule) 100 mg PO DAILY PRN PRN Reason: Constipation Enoxaparin Sodium (Enoxaparin Sodium 40 Mg/0.4 Ml Syringe) 40 mg SUBCUT Q24H [facility] Last Admin: 11/16/22 09:13 Dose: 40 mg Furosemide (Furosemide 40 Mg Tablet) 40 mg PO DAILY [facility]; Protocol Last Admin: 11/16/22 09:12 Dose: 40 mg Guaifenesin/Dextromethorphan (Guaifenesin Dm 100/10/5 Ml 5 Ml Syrup) 5 ml PO Q4H PRN PRN Reason: cough Last Admin: 11/16/22 05:04 Dose: 5 ml Cefepime HCl 2 gm/ Sodium (Chloride) 50 mls @ 100 mls/hr IV Q8H [facility] Last Infusion: 11/16/22 11:55 Dose: Infused Lactated Ringer's (Lr) 1,000 mls @ 100 mls/hr IVCONT .Q10H [facility] Last Infusion: 11/16/22 11:04 Dose: Infused Insulin Glargine (Insulin Glargine,Hum.Rec.Anlog 100 Unit/Ml 10 Ml Vial) 44 unit SUBCUT BEDTIME [facility] Last Admin: 11/15/22 22:38 Dose: Not Given Isosorbide Mononitrate (Isosorbide Mononitrate 30 Mg Tab.Er.24h) 30 mg PO DAILY [facility]; Protocol Last Admin: 11/16/22 09:12 Dose: 30 mg Lisinopril (Lisinopril 40 Mg Tablet) 40 mg PO BEDTIME [facility]; Protocol Last Admin: 11/15/22 22:41 Dose: 40 mg Metformin HCl (Metformin Hcl 1,000 Mg Tablet) 1,000 mg PO BIDWM [facility] Last Admin: 11/16/22 09:12 Dose: 1,000 mg Morphine Sulfate (Morphine Sulfate 4 Mg/Ml Cartridge) 4 mg IVPUSH Q4H PRN; Protocol PRN Reason: Pain, Severe (Pain Scale 7-10) Last Admin: 11/14/22 23:42 Dose: 4 mg Omeprazole (Omeprazole 20 Mg Capsule.Dr) 20 mg PO DAILY@0630 [facility] Last Admin: 11/16/22 05:05 Dose: 20 mg Ondansetron HCl (Ondansetron Hcl 4 Mg/2 Ml Vial) 4 mg IVPUSH Q8H PRN PRN Reason: Nausea and Vomiting Oxycodone HCl (Oxycodone Hcl Immed Release 5 Mg Tablet) 5 mg PO Q8H PRN PRN Reason: severe pain Last Admin: 11/16/22 09:12 Dose: 5 mg Sodium Chloride (0.9 % Sodium Chloride Flush 3 Ml Syringe) [facility] Last Admin: 11/16/22 09:14 Dose: 3 ml Tiotropium [place] (Tiotropium [place] 18 Mcg Cap.W.Dev) 1 puff INHALE RDAILY [facility] Home Medications Medication Instructions Recorded Confirmed Last Taken Type aspirin 81 mg tablet,delayed 81 mg PO DAILY 12/10/20 11/14/22 12/09/20 History release atorvastatin 80 mg tablet 80 mg PO BEDTIME 12/10/20 11/14/22 12/09/20 History insulin glargine 100 unit/mL (3 44 unit subcut BEDTIME 12/10/20 11/14/22 11/14/22 History mL) subcutaneous pen (Lantus Solostar U-100 Insulin) insulin lispro 100 unit/mL 10 unit subcut TIDAC 12/10/20 11/15/22 11/14/22 History subcutaneous pen (Humalog KwikPen (U-100) Insulin) lisinopril 40 mg tablet 40 mg PO BEDTIME 03/23/22 11/14/22 Unknown History empagliflozin 25 mg tablet 25 mg PO DAILY 08/18/22 11/15/22 Unknown History (Jardiance) metformin 1,000 mg tablet 1,000 mg PO BIDWM 08/18/22 11/15/22 Unknown History ipratropium 20 mcg-albuterol 100 1 puff inhalation QID PRN 11/14/22 11/14/22 Unknown History mcg/actuation mist for inhalation Bronchospasm (Combivent Respimat) pantoprazole 20 mg tablet,delayed 20 mg PO QAM 11/14/22 11/14/22 Unknown History release tiotropium bromide 2.5 2 puff inhalation DAILY 11/14/22 11/14/22 Unknown History mcg/actuation mist for inhalation (Spiriva Respimat) Physical Exam Vital Signs: Vital Signs: Last Vital Signs Temp 97.3 F 11/16/22 12:00 Pulse 62 11/16/22 12:00 Resp 20 11/16/22 12:00 BP 120/56 L 11/16/22 12:00 Pulse Ox 98 11/16/22 12:00 O2 Del Method Room Air 11/16/22 12:00 BMI result Body Mass Index 35.3 Const: General: cooperative HEENT: Head: Yes normal to inspection Face and sinus: Yes normal facial exam Mouth: Normal oral and palatal mucosa present Teeth and gingiva: dentition normal Eyes: General: appearance normal, both eyes and all related structures Pupils: Equal, round and reactive pupils present Resp: Effort & Inspection: normal respiratory effort Cardio: Rate: regular rate Rhythm: regular rhythm GI: Palpation (GI): Soft to palpation and nontender : General: Yes no CVA tenderness Back/Spine/Pelvis: Back: no CVA tenderness Skin: General skin exam: no rashes or lesions noted Neuro: General: moves all extremities Cranial nerves: Yes Equal, round and reactive pupils present Extrem: Other: seriously diminished pulses scabbed area right dennis Psych: Appearance: grossly normal Results Labs 11/15/22 05:21 11/16/22 06:04 Labs: BMP 11/16/22 06:04 Sodium 135 Potassium 4.4 Chloride 102 Carbon Dioxide 22 BUN 18 H Creatinine 0.82 Calcium 8.6 Microbiology Microbiology Results: Microbiology 11/14/22 Unknown Urine clean catch - Urine [place] top Urine Culture - Final No growth. 11/14/22 16:54 Blood - Venous Blood Culture - Preliminary No growth after 24 hours. 11/14/22 15:52 Blood - Venous Blood Culture - Preliminary No growth after 24 hours. Assessment and Plan (1) Arterial occlusion, lower extremity: Status: Acute (2) History of peripheral vascular disease: Status: Acute (3) Non-healing wound of right lower extremity: Status: Acute This is a painful arterial ulcer. It is scabbed over and there is no evidence of surrounding cellulitis at this time. Plan Stop antibiotics. Follow up with Vascular,Dr Dia. Time Spent With Patient Time: Total time managing care of this patient today ____ minutes.
[2022-11-16 15:21] VITALS: BP 123/59; PULSE 59; RESP 18; TEMP 37; O2SAT 98
--- NOTE | 2022-11-16 18:30 | PM.CNCAR ---
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 He is being considered for vascular surgery. We have been asked to assess him for perioperative cardiovascular risk assessment. He has significant edema in lower extremity. He has a nonhealing wound on the right dennis. He has no chest discomfort. He has shortness of breath. He is an active smoker currently. Overall appears to be significantly volume overloaded. He states he has been taking medications regularly. He is not a drinker and does not use any recreational drugs. [facility] Past Medical History Medical History Abscess, perineum Asthma Diabetes High cholesterol HTN (hypertension) Family History Family History Father No problems noted. Mother Diabetes HTN (hypertension) Sister No problems noted. Sister Diabetes HTN (hypertension) Sister No problems noted. Family history: reviewed and not pertinent Surgical History Surgical History History of cardiac cath Hx of varicose vein stripping S/P angiogram of extremity Social History Social History Household Members: None Housing: Apartment Housing Other:: elderly housing Do you presently have visiting nurse or other home services: Yes Alcohol intake: never Patient Tobacco Use Status: Current everyday Tobacco user Tobacco use type: Cigarette Cigarette Packs Per Day: 0.5 Cigarettes Per Day: 10 Years Smoked: 15+/- Smoked in Last 30 Days: Yes Patient Interested in Nicotine Replacement: No Second Hand Smoke Exposure: No Use of substances other than those prescribed or required for medical reasons: No Currently Displaying Signs/Symptoms of Drug Intoxication Withdrawal: No Have you been hit, kicked, punched, or otherwise hurt by someone within the past year? If so, by whom?: No Do you feel safe in your current relationship?: No Current Relationship Is there a partner from a previous relationship who is making you feel unsafe now?: No Are you made to feel afraid or neglected: No Advance Directives: Yes Advance Directives on File: Yes Advance Directives Date on File: 12/10/20 Do you have thoughts of harming others: None Do you have a plan to hurt others: No Plan Recently lost weight without trying: Unsure Eating poorly because of decreased appetite: No Nutrition Risks: No Nutritional Risk Poor oral hygiene: No service: No Current occupational status: disabled Meds Allergies Allergy/AdvReac Type Severity Reaction Status Date / Time No Known Drug Allergies Allergy Unknown UNKNOWN Verified 10/27/22 12:33 Active Medications: Current Medications Acetaminophen (Acetaminophen 325 Mg Tablet) 650 mg PO Q6H PRN PRN Reason: Pain, Mild (Pain Scale 1-3) Albuterol/Ipratropium (Albuterol/Iprat 2.5/0.5mg 3 Ml Ampul.Neb) 3 ml INHALE RQ4H PRN PRN Reason: Shortness of Breath/Wheezing Last Admin: 11/15/22 09:16 Dose: 3 ml Aspirin (Aspirin Enteric Coated 81 Mg Tablet.Dr) 81 mg PO DAILY [facility] Last Admin: 11/16/22 09:12 Dose: 81 mg Atorvastatin Calcium (Atorvastatin Calcium 80 Mg Tablet) 80 mg PO BEDTIME [facility] Last Admin: 11/15/22 22:41 Dose: 80 mg Carvedilol (Carvedilol 25 Mg Tablet) 25 mg PO BID [facility]; Protocol Last Admin: 11/16/22 09:10 Dose: 25 mg Docusate Sodium (Docusate Sodium 100 Mg Capsule) 100 mg PO DAILY PRN PRN Reason: Constipation Enoxaparin Sodium (Enoxaparin Sodium 40 Mg/0.4 Ml Syringe) 40 mg SUBCUT Q24H [facility] Last Admin: 11/16/22 09:13 Dose: 40 mg Furosemide (Furosemide 40 Mg Tablet) 40 mg PO DAILY [facility]; Protocol Last Admin: 11/16/22 09:12 Dose: 40 mg Guaifenesin/Dextromethorphan (Guaifenesin Dm 100/10/5 Ml 5 Ml Syrup) 5 ml PO Q4H PRN PRN Reason: cough Last Admin: 11/16/22 05:04 Dose: 5 ml Lactated Ringer's (Lr) 1,000 mls @ 100 mls/hr IVCONT .Q10H [facility]I Last Admin: 11/16/22 17:47 Dose: Not Given Insulin Glargine (Insulin Glargine,Hum.Rec.Anlog 100 Unit/Ml 10 Ml Vial) 44 unit SUBCUT BEDTIME [facility] Last Admin: 11/15/22 22:38 Dose: Not Given Isosorbide Mononitrate (Isosorbide Mononitrate 30 Mg Tab.Er.24h) 30 mg PO DAILY [facility]; Protocol Last Admin: 11/16/22 09:12 Dose: 30 mg Lisinopril (Lisinopril 40 Mg Tablet) 40 mg PO BEDTIME [facility]; Protocol Last Admin: 11/15/22 22:41 Dose: 40 mg Metformin HCl (Metformin Hcl 1,000 Mg Tablet) 1,000 mg PO BIDWM [facility] Last Admin: 11/16/22 17:47 Dose: 1,000 mg Morphine Sulfate (Morphine Sulfate 4 Mg/Ml Cartridge) 4 mg IVPUSH Q4H PRN; Protocol PRN Reason: Pain, Severe (Pain Scale 7-10) Last Admin: 11/14/22 23:42 Dose: 4 mg Omeprazole (Omeprazole 20 Mg Capsule.Dr) 20 mg PO DAILY@0630 [facility] Last Admin: 11/16/22 05:05 Dose: 20 mg Ondansetron HCl (Ondansetron Hcl 4 Mg/2 Ml Vial) 4 mg IVPUSH Q8H PRN PRN Reason: Nausea and Vomiting Oxycodone HCl (Oxycodone Hcl Immed Release 5 Mg Tablet) 5 mg PO Q8H PRN PRN Reason: severe pain Last Admin: 11/16/22 17:49 Dose: 5 mg Sodium Chloride (0.9 % Sodium Chloride Flush 3 Ml Syringe) 3 ml IVFLUSH QSHIFT [facility] Last Admin: 11/16/22 17:46 Dose: Not Given Tiotropium [place] (Tiotropium [place] 18 Mcg Cap.W.Dev) 1 puff INHALE RDAILY [facility] Home Medications Medication Instructions Recorded Confirmed Last Taken Type aspirin 81 mg tablet,delayed 81 mg PO DAILY 12/10/20 11/14/22 12/09/20 History release atorvastatin 80 mg tablet 80 mg PO BEDTIME 12/10/20 11/14/22 12/09/20 History insulin glargine 100 unit/mL (3 44 unit subcut BEDTIME 12/10/20 11/14/22 11/14/22 History mL) subcutaneous pen (Lantus Solostar U-100 Insulin) insulin lispro 100 unit/mL 10 unit subcut TIDAC 12/10/20 11/15/22 11/14/22 History subcutaneous pen (Humalog KwikPen (U-100) Insulin) lisinopril 40 mg tablet 40 mg PO BEDTIME 03/23/22 11/14/22 Unknown History empagliflozin 25 mg tablet 25 mg PO DAILY 08/18/22 11/15/22 Unknown History (Jardiance) metformin 1,000 mg tablet 1,000 mg PO BIDWM 08/18/22 11/15/22 Unknown History ipratropium 20 mcg-albuterol 100 1 puff inhalation QID PRN 11/14/22 11/14/22 Unknown History mcg/actuation mist for inhalation Bronchospasm (Combivent Respimat) pantoprazole 20 mg tablet,delayed 20 mg PO QAM 11/14/22 11/14/22 Unknown History release tiotropium bromide 2.5 2 puff inhalation DAILY 11/14/22 11/14/22 Unknown History mcg/actuation mist for inhalation (Spiriva Respimat) Physical Exam Vital Signs: Vital Signs: Last Vital Signs Temp 98.6 F 11/16/22 15:21 Pulse 59 11/16/22 15:21 Resp 18 11/16/22 15:21 BP 123/59 L 11/16/22 15:21 Pulse Ox 98 11/16/22 15:21 O2 Del Method Room Air 11/16/22 15:21 BMI result Body Mass Index 35.3 GENERAL APPEARANCE: in no acute distress, pleasant. NECK: no carotid bruit, + jugular venous distention. SKIN: no suspicious lesions, warm and dry. HEART: no murmurs, regular rate and rhythm. LUNGS: Mild expiratory wheezes. ABDOMEN: soft, nontender. EXTREMITIES: 2+ edema lower extremities. Nonhealing wound right dennis. NEUROLOGIC: No gross deficits, AAO X 3 Objective Labs and Meds 11/15/22 05:21 11/16/22 06:04 Lab results: Laboratory Results - last 24 hr 11/15/22 11/16/22 22:37 06:04 Sodium 135 Potassium 4.4 Chloride 102 Carbon Dioxide 22 Anion Gap 15 BUN 18 H Creatinine 0.82 Estim Creat Clear Calc 100.3 Estimated GFR > 60 POC Glucose 140 H Random Glucose 145 H Calcium 8.6 Assessment and Plan (1) PAD (peripheral artery disease): Status: Acute (2) Acute on chronic congestive heart failure: Status: Acute Plan [age] gentleman presenting for leg pain due to bed progressed in disease. He is in need of vascular surgery. Overall volume overloaded. Needs repeat echo to assess LVEF. Lasix 40 mg IV BID. Decrease Coreg to 12.5 mg BID. May help with forward flow. Intermediate to high risk for vascular surgery. Will need optimization before surgery unless emergent. Time Spent With Patient Time: Total time managing care of this patient today ____ minutes. Procedures Date of Service Date of Service: 11/16/22
[2022-11-16 20:00] VITALS: BP 134/62; PULSE 66; RESP 18; TEMP 37; O2SAT 97
--- NOTE | 2022-11-16 20:19 | PC.NURSE ---
patient lost IV access this afternoon , has order for CTA and needs #20 gauge above the wrist. Two RN's tried and no success , patient became very upset d/t discomfort from the multiple needle stick . Cord Splicer was notified and Yohana educator was sent to get the IV access with no success . Sylvia TRUJILLO was notified and the plan is for IV access per IR tomorrow
[2022-11-16] MEDS: Atorvastatin Calcium 80 MG TABLET PO (20:54)
[2022-11-16] MEDS: carvediloL 12.5 MG TABLET PO (20:54)
[2022-11-16] MEDS: Insulin Glargine,Hum.rec.anlog 100 UNIT/ML 10 ML VIAL 44 UNIT SUBCUT (20:54)
[2022-11-16] MEDS: lisinopriL 40 MG TABLET PO (20:54)
[2022-11-16 21:00] LABS: Glucose, Whole Blood 190 mg/dL (60-115)
[2022-11-17] VITALS (8 sets, daily range): BP systolic 124–146; BP diastolic 53–61; PULSE 61–70; RESP 17–20; TEMP 36.2–37.1; O2SAT 95–99
[2022-11-17] MEDS: Omeprazole 20 MG CAPSULE.DR PO (06:07)
[2022-11-17] MEDS: oxyCODONE HCl Immed Release 5 MG TABLET PO ×2 (06:07→18:03)
[2022-11-17] MEDS: Enoxaparin Sodium 40 MG/0.4 ML SYRINGE SUBCUT (08:43)
[2022-11-17] MEDS: Isosorbide Mononitrate 30 MG TAB.ER.24H PO (08:45)
[2022-11-17] MEDS: Aspirin Enteric Coated 81 MG TABLET.DR PO (08:45)
[2022-11-17] MEDS: carvediloL 12.5 MG TABLET PO ×2 (08:45→21:02)
[2022-11-17] MEDS: metFORMIN HCl 1,000 MG TABLET 1000 MG PO (08:45)
--- NOTE | 2022-11-17 09:12 | HO.PM.IMPN ---
Subjective Subjective Date of Service: 11/17/22 Interval History: Follow up cellulitis diabetic leg wound Cardiovascular Cardiovascular: Reports no additional cardiovascular complaints Gastrointestinal Gastrointestinal: Reports no additional gastrointestinal complaints Physical Exam Vital Signs: Vital Signs: Last Vital Signs Temp 97.2 F 11/17/22 07:21 Pulse 68 11/17/22 07:21 Resp 20 11/17/22 07:21 BP 133/60 11/17/22 07:21 Pulse Ox 99 11/17/22 07:21 O2 Del Method Room Air 11/17/22 07:21 BMI result Body Mass Index 35.3 Appearing in no acute distress lung sounds are clear to auscultation heart regular rate rhythm, clear S1, S2 positive bowel sounds, abdomen is soft, nontender neuro patient is alert x3, no focal deficits Objective Data Active Medications Acetaminophen (Acetaminophen 325 Mg Tablet) 650 mg PO Q6H PRN PRN Reason: Pain, Mild (Pain Scale 1-3) Albuterol/Ipratropium (Albuterol/Iprat 2.5/0.5mg 3 Ml Ampul.Neb) 3 ml INHALE RQ4H PRN PRN Reason: Shortness of Breath/Wheezing Last Admin: 11/15/22 09:16 Dose: 3 ml Documented By: KIM Aspirin (Aspirin Enteric Coated 81 Mg Tablet.) 81 mg PO DAILY [facility] Last Admin: 11/17/22 08:45 Dose: 81 mg Documented By: PARAG Atorvastatin Calcium (Atorvastatin Calcium 80 Mg Tablet) 80 mg PO BEDTIME [facility] Last Admin: 11/16/22 20:54 Dose: 80 mg Documented By: MALICK Carvedilol (Carvedilol 12.5 Mg Tablet) 12.5 mg PO BID [facility]; Protocol Last Admin: 11/17/22 08:45 Dose: 12.5 mg Documented By: PARAG Docusate Sodium (Docusate Sodium 100 Mg Capsule) 100 mg PO DAILY PRN PRN Reason: Constipation Enoxaparin Sodium (Enoxaparin Sodium 40 Mg/0.4 Ml Syringe) 40 mg SUBCUT Q24H [facility] Last Admin: 11/17/22 08:43 Dose: 40 mg Documented By: PARAG Furosemide (Furosemide 40 Mg/4 Ml Vial) 40 mg IVPUSH BID@0900,1800 [facility]; Protocol Last Admin: 11/17/22 08:46 Dose: Not Given Documented By: PARAG Non-Admin Reason: No Access Guaifenesin/Dextromethorphan (Guaifenesin Dm 100/10/5 Ml 5 Ml Syrup) 5 ml PO Q4H PRN PRN Reason: cough Last Admin: 11/16/22 05:04 Dose: 5 ml Documented By: ADILIA Insulin Glargine (Insulin Glargine,Hum.Rec.Anlog 100 Unit/Ml 10 Ml Vial) 44 unit SUBCUT BEDTIME [facility] Last Admin: 11/16/22 20:54 Dose: 44 unit Documented By: MALICK Isosorbide Mononitrate (Isosorbide Mononitrate 30 Mg Tab.Er.24h) 30 mg PO DAILY [facility]; Protocol Last Admin: 11/17/22 08:45 Dose: 30 mg Documented By: PARAG Lisinopril (Lisinopril 40 Mg Tablet) 40 mg PO BEDTIME [facility]; Protocol Last Admin: 11/16/22 20:54 Dose: 40 mg Documented By: MALICK Metformin HCl (Metformin Hcl 1,000 Mg Tablet) 1,000 mg PO BIDWM [facility] Last Admin: 11/17/22 08:45 Dose: 1,000 mg Documented By: PARAG Morphine Sulfate (Morphine Sulfate 4 Mg/Ml Cartridge) 4 mg IVPUSH Q4H PRN; Protocol PRN Reason: Pain, Severe (Pain Scale 7-10) Last Admin: 11/14/22 23:42 Dose: 4 mg Documented By: EDUAR Omeprazole (Omeprazole 20 Mg Capsule.Dr) 20 mg PO DAILY@0630 [facility] Last Admin: 11/17/22 06:07 Dose: 20 mg Documented By: MIKALA Ondansetron HCl (Ondansetron Hcl 4 Mg/2 Ml Vial) 4 mg IVPUSH Q8H PRN PRN Reason: Nausea and Vomiting Oxycodone HCl (Oxycodone Hcl Immed Release 5 Mg Tablet) 5 mg PO Q8H PRN PRN Reason: severe pain Last Admin: 11/17/22 06:07 Dose: 5 mg Documented By: MIKALA Sodium Chloride (0.9 % Sodium Chloride Flush 3 Ml Syringe) [facility] Last Admin: 11/17/22 08:45 Dose: Not Given Documented By: PARAG Non-Admin Reason: No Access Tiotropium [place] (Tiotropium [place] 18 Mcg Cap.W.Dev) 1 puff INHALE RDAILY [facility] Last Admin: 11/17/22 07:52 Dose: Not Given Documented By: ROXANA Non-Admin Reason: Medication Discontinued Labs 11/15/22 05:21 11/16/22 06:04 Labs: Laboratory Results - last 24 hr 11/16/22 20:52 POC Glucose 190 H Microbiology Microbiology Results: Microbiology 11/14/22 16:54 Blood Culture - Preliminary Blood - Venous No growth after 48 hours. 11/14/22 15:52 Blood Culture - Preliminary Blood - Venous No growth after 48 hours. 11/14/22 Unknown Urine Culture - Final Urine clean catch - Urine roche top No growth. Assessment and Plan (1) UTI (urinary tract infection): Status: Acute Plan 62-year-old male with past medical history of peripheral vascular disease presents to the hospital with complaints of pain and nonhealing wound in the right lower extremity Nonhealing wound of right lower extremity history of PAD ,? with recent aortogram by vascular surgery showing bilateral total SFA occlusion Seen by vascular surgery for rec>Needs cardio risk stratification for vascular surgery, needs bipass vs BKA no needs for wound debridement as wounds are chronically dry Evaluated by ID>no need for abx, stop cefepime Lower extremity arterial occlusion / PVD statin and aspirin vascular surgery following> plan for RLE angio to assess for flow Acute UTI asymptomatic urine cx no growth/blood cultures neg after 48hrs abx stopped Lactic acidosis secondary to?acute infection resolved with IV fluids DM2 ss, ada diet History of cardiomyopathy no evidence of exacerbation or fluid overload continue home furosemide History of CAD continue carvedilol/aspirin DVT? Prophylaxis:? Regine Attending Dr. Etienne hospital stay for further management and monitoring of cellulitis requiring IV abx Time Spent With Patient Time: Total time managing care of this patient today ____ minutes. Quality Stroke Does the patient have a stroke diagnosis?: No VTE Prior VTE?: No VTE Risk Level:: Medical - moderate - high VTE Device Contraindication: Treatment Not Indicated VTE Drug Contraindication: N/A - Med Ordered
--- NOTE | 2022-11-17 12:51 | P.PNCA_ITS ---
Subjective Subjective Date of Service: 11/17/22 Interval history: Patient was seen and examined at bedside. He is saying his breathing is improving. He is on IV diuretics at this point. Physical Exam Vital Signs: Last Vital Signs Temp 98.7 F 11/17/22 11:01 Pulse 64 11/17/22 11:01 Resp 20 11/17/22 11:01 BP 127/60 11/17/22 11:01 Pulse Ox 97 11/17/22 11:01 O2 Del Method Room Air 11/17/22 11:01 BMI result Body Mass Index 35.3 GENERAL APPEARANCE: in no acute distress, pleasant. NECK: no carotid bruit, + jugular venous distention. SKIN: no suspicious lesions, warm and dry. HEART: no murmurs, regular rate and rhythm. LUNGS: Clear to auscultation bilaterally. ABDOMEN: soft, nontender. EXTREMITIES: 2+ edema lower extremities. Nonhealing wound right dennis. NEUROLOGIC: No gross deficits, AAO X 3 Objective Labs and Meds 11/15/22 05:21 11/16/22 06:04 Lab results: Laboratory Results - last 24 hr 11/16/22 20:52 POC Glucose 190 H Progress Note: A&P Assessment and plan (1) Acute on chronic congestive heart failure: Status: Acute (2) PAD (peripheral artery disease): Status: Acute Plan [age] gentleman with mixed cardiomyopathy. He has severely reduced ejection fraction. Clinically volume overloaded and is being diuresed. We decrease the carvedilol to 12.5 mg b.i.d.. He is on IV diuretics at this point in responding well. Continue IV diuretics today. He had diffuse disease of the right coronary artery but moderate disease the circumflex and LAD. The coronary disease did not explain the degree of LV dysfunction and that is why he has mixed ischemic and nonischemic cardiomyopathy. He is not complaining of any exertional discomfort in the chest. He is volume overloaded but improving with diuretics. Definitive treatment of the right lower extremity nonhealing wound will be as per vascular surgery. In my opinion he is intermediate to high risk for perioperative cardiovascular complications. We are optimizing his volume status to make sure he does not develop perioperative congestive heart failure. Continue baby aspirin and in case he goes to operating room the aspirin should n ot be interrupted. Thank you for allowing me to participate in the care of your patient. Please f eel free to contact me if you have any questions. Time Spent With Patient Time: Total time managing care of this patient today ____ minutes. Progress Note: Quality Stroke Does the patient have a stroke diagnosis?: No Procedures Date of Service Date of Service: 11/17/22
[2022-11-17] MEDS: Furosemide 40 MG/4 ML VIAL IVPUSH ×2 (15:11→21:02)
[2022-11-17] MEDS: 0.9 % Sodium Chloride Flush 3 ML SYRINGE IVFLUSH (15:11)
[2022-11-17] MEDS: iohexoL 350 MG/ML 100 ML INFUS..BTL IV (16:15)
[2022-11-17] MEDS: Albuterol/Iprat 2.5/0.5MG 3 ML AMPUL.NEB INHALE (19:51)
[2022-11-17] MEDS: Atorvastatin Calcium 80 MG TABLET PO (21:02)
[2022-11-17] MEDS: Insulin Glargine,Hum.rec.anlog 100 UNIT/ML 10 ML VIAL 44 UNIT SUBCUT (21:02)
[2022-11-17] MEDS: lisinopriL 40 MG TABLET PO (21:02)
[2022-11-17] MEDS: Docusate Sodium 100 MG CAPSULE PO (21:10)
[2022-11-17 21:15] LABS: Glucose, Whole Blood 193 mg/dL (60-115)
[2022-11-18 03:09] VITALS: BP 121/50; PULSE 65; RESP 17; TEMP 36.4; O2SAT 95
[2022-11-18] MEDS: 0.9 % Sodium Chloride Flush 3 ML SYRINGE IVFLUSH ×2 (05:18→08:43)
[2022-11-18] MEDS: Omeprazole 20 MG CAPSULE.DR PO (05:18)
[2022-11-18] MEDS: oxyCODONE HCl Immed Release 5 MG TABLET PO (05:19)
[2022-11-18 07:35] VITALS: BP 107/46; PULSE 80; RESP 20; TEMP 36.2; O2SAT 97
[2022-11-18] MEDS: Aspirin Enteric Coated 81 MG TABLET.DR PO (08:43)
[2022-11-18] MEDS: Isosorbide Mononitrate 30 MG TAB.ER.24H PO (08:43)
[2022-11-18] MEDS: carvediloL 12.5 MG TABLET PO (08:43)
[2022-11-18] MEDS: Furosemide 40 MG/4 ML VIAL IVPUSH (08:56)
[2022-11-18] MEDS: Morphine Sulfate 4 MG/ML CARTRIDGE IVPUSH (10:37)
[2022-11-18 11:27] VITALS: BP 142/57; PULSE 60; RESP 20; TEMP 36.2; O2SAT 96
--- NOTE | 2022-11-18 11:50 | HO.PM.IMPN ---
Subjective Subjective Date of Service: 11/18/22 Interval History: history obtained via nurse educator patient offers no acute complaints of leg discomfort, no fevers, no chills, no nausea, no vomiting, no abdominal pain or diarrhea he wants to know the definite treatment plan for right leg non healing ulcers, tolerating diet, no acute events overnights. Review of Systems Review of Systems: Yes all other systems are reviewed and are negative Physical Exam Vital Signs: Vital Signs: Last Vital Signs Temp 97.2 F 11/18/22 11:27 Pulse 60 11/18/22 11:27 Resp 20 11/18/22 11:27 BP 142/57 H 11/18/22 11:27 Pulse Ox 96 11/18/22 11:27 O2 Del Method Room Air 11/18/22 11:27 BMI result Body Mass Index 35.3 Const: Other: General awake alert , sitting comfortably in no acute distress. Neck supple no JVD. CVS regular rate rhythm, Respiratory lungs clear to auscultation, no respiratory distress, no wheeze, no rhonchi. Gastrointestinal abdomen soft, nontender, bowel sounds audible, no guarding , no rigidity. Extremities right leg dennis two ulcers with no drainage, mild surrounding erythema and edema Neuro nonfocal , speech clear. Skin no rash psych appropriate affect Objective Data Active Medications Acetaminophen (Acetaminophen 325 Mg Tablet) 650 mg PO Q6H PRN PRN Reason: Pain, Mild (Pain Scale 1-3) Albuterol/Ipratropium (Albuterol/Iprat 2.5/0.5mg 3 Ml Ampul.Neb) 3 ml INHALE RQ4H PRN PRN Reason: Shortness of Breath/Wheezing Last Admin: 11/17/22 19:51 Dose: 3 ml Documented By: SHOAIB Aspirin (Aspirin Enteric Coated 81 Mg Tablet.) 81 mg PO DAILY [facility] Last Admin: 11/18/22 08:43 Dose: 81 mg Documented By: PARAG Atorvastatin Calcium (Atorvastatin Calcium 80 Mg Tablet) 80 mg PO BEDTIME [facility] Last Admin: 11/17/22 21:02 Dose: 80 mg Documented By: MALICK Carvedilol (Carvedilol 12.5 Mg Tablet) 12.5 mg PO BID [facility]; Protocol Last Admin: 11/18/22 08:43 Dose: 12.5 mg Documented By: PARAG Docusate Sodium (Docusate Sodium 100 Mg Capsule) 100 mg PO DAILY PRN PRN Reason: Constipation Last Admin: 11/17/22 21:10 Dose: 100 mg Documented By: MALICK Enoxaparin Sodium (Enoxaparin Sodium 40 Mg/0.4 Ml Syringe) 40 mg SUBCUT Q24H [facility] Last Admin: 11/18/22 08:50 Dose: Not Given Documented By: PARAG Non-Admin Reason: hematuria Furosemide (Furosemide 40 Mg/4 Ml Vial) 40 mg IVPUSH BID@0900,1800 [facility]; Protocol Last Admin: 11/18/22 08:56 Dose: 40 mg Documented By: PARAG Guaifenesin/Dextromethorphan (Guaifenesin Dm 100/10/5 Ml 5 Ml Syrup) 5 ml PO Q4H PRN PRN Reason: cough Last Admin: 11/16/22 05:04 Dose: 5 ml Documented By: ADILIA Insulin Glargine (Insulin Glargine,Hum.Rec.Anlog 100 Unit/Ml 10 Ml Vial) 44 unit SUBCUT BEDTIME [facility] Last Admin: 11/17/22 21:02 Dose: 44 unit Documented By: MALICK Lisinopril (Lisinopril 40 Mg Tablet) 40 mg PO BEDTIME [facility]; Protocol Last Admin: 11/17/22 21:02 Dose: 40 mg Documented By: MALICK Metformin HCl (Metformin Hcl 1,000 Mg Tablet) 1,000 mg PO BIDWM [facility] Last Admin: 11/17/22 18:04 Dose: Not Given Documented By: MALICK Non-Admin Reason: Physician Held Med Morphine Sulfate (Morphine Sulfate 4 Mg/Ml Cartridge) 4 mg IVPUSH Q4H PRN; Protocol PRN Reason: Pain, Severe (Pain Scale 7-10) Last Admin: 11/18/22 10:37 Dose: 4 mg Documented By: PARAG Omeprazole (Omeprazole 20 Mg Capsule.Dr) 20 mg PO DAILY@0630 [facility] Last Admin: 11/18/22 05:18 Dose: 20 mg Documented By: ANTOIC Ondansetron HCl (Ondansetron Hcl 4 Mg/2 Ml Vial) 4 mg IVPUSH Q8H PRN PRN Reason: Nausea and Vomiting Oxycodone HCl (Oxycodone Hcl Immed Release 5 Mg Tablet) 5 mg PO Q8H PRN PRN Reason: severe pain Last Admin: 11/18/22 05:19 Dose: 5 mg Documented By: JAYDON Sodium Chloride (0.9 % Sodium Chloride Flush 3 Ml Syringe) 3 ml IVFLUSH QSHIFT [facility] Last Admin: 11/18/22 08:43 Dose: 3 ml Documented By: FOSTEKRonna Tiotropium [place] (Tiotropium [place] 18 Mcg Cap.W.Dev) 1 puff INHALE RDAILY [facility] Last Admin: 11/18/22 08:11 Dose: Not Given Documented By: EDI Non-Admin Reason: Medication Discontinued Labs 11/15/22 05:21 11/16/22 06:04 Labs: Laboratory Results - last 24 hr 11/17/22 21:07 POC Glucose 193 H Assessment and Plan (1) UTI (urinary tract infection): Status: Acute Plan 62-year-old male with past medical history of peripheral vascular disease presents to the hospital with complaints of pain and nonhealing wound in the right lower extremity Nonhealing wound of right lower extremity/ with arterial occlusion/peripheral vascular disease history of PAD ,? CT angiogram abdomen pelvis and lower extremity runoff with contrast showed significant right leg disease wound debridement not required, id to not recommend antibiotics continue aspirin and statin seen by alcohol still operator for perioperative risk assessment patient noted to have intermediate to high risk perioperative cardiovascular complications Cardio recommend to continue aspirin and diuretics. Dr. Dia to follow patient regarding definitive treatment plan positive UA initially thought to have UTI asymptomatic urine cx no growth/blood cultures neg after 48hrs abx stopped Lactic acidosis secondary to?acute infection resolved with IV fluids DM2 ss, ada diet, elevated blood sugars need better blood sugar control, will DC Glucophage in add insulin sliding scale History of cardiomyopathy echo showed EF 20-25%, severe global hypokinesis, no pericardial effusion, grade 3 severe diastolic dysfunction on iv lasix , appears euvolemic >2.5 L neg follow clinical course and BMP History of CAD continue carvedilol/aspirin DVT? Prophylaxis:? [facility] hospital stay for further management of right leg peripheral vascular disease and right leg wounds. Time Spent With Patient Time: Total time managing care of this patient today ____ minutes. Quality Stroke Does the patient have a stroke diagnosis?: No VTE Prior VTE?: No VTE Risk Level:: Medical - moderate - high VTE Device Contraindication: Treatment Not Indicated VTE Drug Contraindication: N/A - Med Ordered
--- NOTE | 2022-11-18 12:34 | PM.PNCARD ---
Subjective Subjective Date of Service: 11/18/22 Interval history: Seen examined bedside. Overall improving from CHF point of view. Still complaining of leg pain due to peripheral vascular disease. Physical Exam Vital Signs: Last Vital Signs Temp 97.2 F 11/18/22 11:27 Pulse 60 11/18/22 11:27 Resp 20 11/18/22 11:27 BP 142/57 H 11/18/22 11:27 Pulse Ox 96 11/18/22 11:27 O2 Del Method Room Air 11/18/22 11:27 BMI result Body Mass Index 35.3 GENERAL APPEARANCE: in no acute distress, pleasant. NECK: no carotid bruit, + jugular venous distention. SKIN: no suspicious lesions, warm and dry. HEART: no murmurs, regular rate and rhythm. LUNGS: Clear to auscultation bilaterally. ABDOMEN: soft, nontender. EXTREMITIES: 2+ edema lower extremities. Nonhealing wound right dennis. Scrotal edema. NEUROLOGIC: No gross deficits, AAO X 3 Objective Labs and Meds 11/15/22 05:21 11/16/22 06:04 Lab results: Laboratory Results - last 24 hr 11/17/22 21:07 POC Glucose 193 H Imaging Radiologist's impression: Impressions Aorta w/Runoff CTA 11/17/22 16:39 IMPRESSION: VASCULAR: Abdomen/Pelvis: 1. No abdominal aortic aneurysm or dissection. 2. 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 Right Lower Extremity: 1. Focal high-grade stenosis of the common iliac artery. 2. Patent external iliac stent with eccentric intraluminal thrombus. Stent covers the origin of the internal iliac artery. 3. Short segment high-grade stenosis of the common femoral artery. 4. Occlusion of the SFA, including stent. 5. Three-vessel runoff to the foot. 6. Dorsalis pedis occluded. The entire patent. Left Lower Extremity: 1. Left external iliac artery stent patent. 2. Focal high-grade stenosis of the external iliac common femoral arteries. 3. Long segment occlusion of the SFA, including stent. Distal SFA patent from intramuscular collaterals. 4. Three-vessel runoff to the foot. 5. Dorsalis pedis and plantar patent. NONVASCULAR: 1. Right distal tibial soft tissue defect without evidence of osteomyelitis. Bilateral predominantly below-knee soft tissue swelling. 2. Left lower pole complex/solid renal mass measuring 1.4 x 1.3 cm. Recommend further evaluation with MRI abdomen with contrast. 3. Bladder diverticulum. Fleischner guidelines were followed. 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 He has leg pain and nonhealing wound on the right dennis and severe peripheral vascular disease and is being followed by vascular surgery. From congestive heart failure point of view he was volume overloaded on admission and is getting IV diuretics at this point. I think we should continue the diuretics for now. Monitor electrolytes and kidney function closely. Vascular surgery to comment whether any inpatient interventions will be performed. Thank you for allowing me to participate in the care of your patient. Please feel free to contact me if you have any questions. Time Spent With Patient Time: Total time managing care of this patient today ____ minutes. Progress Note: Quality Stroke Does the patient have a stroke diagnosis?: No Procedures Date of Service Date of Service: 11/18/22
--- NOTE | 2022-11-18 13:41 | P.PNVS_ITS ---
Subjective Subjective Date of Service: 11/18/22 Patient reports: no new complaints and still having pain Interval history: Complex 62-year-old gentleman presents for follow-up regarding peripheral vascular disease and nonhealing right pretibial ulcers. They continue to be a source of pain for him. He reports that they do cause pain 8/10. Of note he has had attempted prior endovascular intervention and has prior occluded stents. He has undergone CT angiogram. Also he has undergone evaluation by Cardiology for acute on chronic congestive heart failure. He is now for follow-up. Please note motor vehicle parts interpreter was present during discussion. Physical Exam Vital Signs: Vital Signs: Last Vital Signs Temp 97.2 F 11/18/22 11:27 Pulse 60 11/18/22 11:27 Resp 20 11/18/22 11:27 BP 142/57 H 11/18/22 11:27 Pulse Ox 96 11/18/22 11:27 O2 Del Method Room Air 11/18/22 11:27 BMI result Body Mass Index 35.3 Const: General: cooperative, healthy appearing and no acute distress Orientation/consciousness: oriented to person, oriented to place and oriented to time HEENT: Head: Yes normal to inspection Neck: Carotids: no bruits Chest: Chest palpation & inspection: normal inspection of the chest Resp: Effort & Inspection: normal respiratory effort and able to speak in complete sentences Auscultation: clear to auscultation bilaterally Cardio: Rate: regular rate Heart sounds: S1 normal heart sound present and S2 normal heart sound present GI: Inspection: Yes normal to inspection Skin: Other: Right pretibial ulcers x2 General skin exam: no rashes or lesions noted Wounds: no wounds Neuro: General: oriented to person, oriented to place, oriented to time and CN's II-XI intact bilaterally Extrem: General: Yes normal to inspection, Yes full ROM and Yes no clubbing, cyanosis or edema Psych: Appearance: grossly normal and well kempt Speech and movement: Normal speech and movement present Affect: normal affect Progress Note: A&P Assessment and plan (1) PAD (peripheral artery disease): Status: Acute Assessment and Plan: The concern here is the patient has critical limb ischemia of the right lower extremity. CT angiogram was rereviewed and demonstrates a fem distal bypass would be required. Also of concern is is overall coronary status. At the current time he has an ejection fraction of 20-25% in addition to acute on chronic congestive heart failure. He was being diuresed and optimized at the current time. Options at the current time would be do nothing, large fem distal bypass, or amputation. I spent an extensive time discussing risks benefits complications of each. In addition I did discuss his overall coronary situation. After extensive discussion he has elected to move forward with an amputation as he is concerned about his cardiac status and does not want prolonged surgery. He also requested that this be scheduled as an outpatient as he has several issues including bills to take care of at home. The leg does not appear acutely infected and would like him to be appropriately diuresed prior to procedure. Happy to schedule as an outpatient. This was discussed with the hospitalist team. Once discharged we can schedule him for below-knee amputation. Time Spent With Patient Time: Total time managing care of this patient today _60___ minutes. For chart review,review of imaging management of services, use of interpretation services discussion and examination of patient along with discussion with hospitalist team Procedures Date of Service Date of Service: 11/18/22 Quality Stroke Does the patient have a stroke diagnosis?: No VTE Prior VTE?: No VTE Risk Level:: Medical - moderate - high VTE Device Contraindication: Treatment Not Indicated VTE Drug Contraindication: N/A - Med Ordered
--- NOTE | 2022-11-18 14:20 | PM.DS ---
DS: Providers Provider Date of Service: 11/18/22 Date of admission: 11/17/22 16:17 Primary care physician: Loli Augustin MD Consults: 11/14/22 23:12 Consult to Infectious Diseases Routine Consulting Provider: [facility] [place] [facility] Reason for consultation: non-healing wound Has provider been notified: No 11/15/22 06:31 Consult to Vascular Surgery Routine Consulting Provider: [facility] [place] [facility] Reason for consultation: non-healing wound, has SFA occlution Has provider been notified: No 11/16/22 11:41 Consult to Cardiology Routine Consulting Provider: [facility] [place] [facility] Reason for consultation: risk stratification for vascular surgery DS: Diagnosis Discharge Diagnosis (1) PAD (peripheral artery disease): Status: Acute DS: Summary Hospital Course Hospital Course: history of presenting illness: Date of Service: 11/14/22 Chief Complaint:? leg pain ?this patient is a Citizen Of [place]-speaking only, history is obtained with the help of staff interpreter ?62-year-old male with past medical history of diabetes, HTN, history of cardiomyopathy, history of CAD, BPH, peripheral arterial disease, presents the hospital with complaints of leg pain and nonhealing right lower extremity wound.? Patient reports that he has had this wound for 4 months, but recently has significant 8/10, nonradiating, constant, pain in his lower extremity where the wound is,? reports no alleviating factors. the wound has not been draining, he has no fever chills, reports no chest pain, no shortness of breath, no abdominal pain nausea or? vomiting, no diarrhea or constipation.? No lower extremity edema.? No headache or change in vision, no weakness numbness or tingling. ? On arrival to the ED patient hemodynamically stable with no significant abnormal vitals Labs are significant for WBC 9.3 lactic acid of 2.6, UA is positive for leukocyte Estrace and WBC,? ESR of 5 ?x-ray of the tibia-fibula show soft tissue wound ulcer anterior to the distal tibial diaphyses with no radiographic evidence of? osteomyelitis ?patient will be admitted for further management 62-year-old male with past medical history of peripheral vascular disease presents to the hospital with complaints of pain and nonhealing wound in the right lower extremity Nonhealing wound of right lower extremity/ with arterial occlusion/peripheral vascular disease, admitted to medical floor seen by vascular surgery Dr. Dia,? CT angiogram abdomen pelvis and lower extremity runoff with contrast obtained that showed significant right? leg disease, but due to overall coronary status with low EF 20- 25% with acute on chronic congestive heart failure Dr. Dia discuss case with patient and he elected to move forward with BKA amputation,, patient requested to arrange this as an outpatient, therefore he is being discharged home with recommendation to follow-up with Dr. Dia for elective BKA, patient did not require wound debridement, seen by ID and antibiotics not recommended, continue aspirin and statin and in regard to significant 8/10 right leg pain patient is being discharged home on oxycodone 5 mg every 8 hours as needed total lumbar 12 tablets dispensed with recommendation to follow-up with primary care physician. Patient was evaluated by medical records custodian for perioperative risk assessment patient noted to have intermediate to high risk perioperative cardiovascular complications Cardio recommend to continue aspirin and diuretics. positive UA initially thought to have UTI, however urine and blood culture showed no growth therefore no antibiotics required. Lactic acidosis secondary to?acute infection,resolved with IV fluids DM2 recommend to continue home medications and diabetic diet with good blood sugar control. History of cardiomyopathy/ acute CHF with low EF, echo showed EF 20-25%, severe global hypokinesis, no pericardial effusion, grade 3 severe diastolic dysfunction, patient seen by medical records custodian treated with IV Lasix greater than 3 L negative Cardio recommend to increase dose of Lasix to 40 mg twice daily and continue Coreg and aspirin recommended low-salt diet. Time Spent with Patient Time attestation: Total time managing care of this patient today ____ minutes. Discharge coordination time: Greater than 30 minutes Quality: Safe Use of Opioids Does Pt have an Active Cancer Diagnosis on the Problem List?: No Quality: Stroke Does the patient have a stroke diagnosis?: No Physical Exam Vital Signs: Vital Signs: Last Vital Signs Temp 97.2 F 11/18/22 11:27 Pulse 60 11/18/22 11:27 Resp 20 11/18/22 11:27 BP 142/57 H 11/18/22 11:27 Pulse Ox 96 11/18/22 11:27 O2 Del Method Room Air 11/18/22 11:27 BMI result Body Mass Index 35.3 Const: Other: General awake alert , sitting comfortably in no acute distress.? Neck? supple no JVD. CVS? regular rate rhythm, Respiratory lungs clear to auscultation, no respiratory distress, no wheeze, no rhonchi. Gastrointestinal abdomen soft, nontender, bowel sounds audible,? no guarding , no rigidity. Extremities? right dennis two ulcers with no drainage, mild surrounding erythema and edema. Neuro nonfocal , speech clear. Skin no rash psych appropriate affect DS: Data Data Completed and Pending Completed studies during hospitalization [Text1]: Procedures Drainage of Perineum Skin, External Approach (12/10/20) Labs on day of discharge: Laboratory Results - last 24 hr 11/17/22 21:07 POC Glucose 193 H Preliminary micro results at discharge 11/14/22 16:54 Blood Culture - Preliminary Blood - Venous No growth after 48 hours. 11/14/22 15:52 Blood Culture - Preliminary Blood - Venous No growth after 48 hours. Discharge Plan Discharge Anticipated Discharge Date/Time: 11/18/22 14:08 Patient Disposition: Home, Self-Care Discharge Diagnosis: nonhealing wound right lower extremity. acute CHF with reduced EF peripheral arterial disease Referrals: Loli Augustin MD [Primary Care Provider] - 1 Week Discharge Medications: New oxycodone 5 mg Tablet 5 mg PO Q8H PRN (Reason: severe pain) Qty: 12 0RF Rx Instructions: Partial Fill upon patient request. furosemide [Lasix] 40 mg tablet 40 mg PO BID Qty: 60 0RF Continued lisinopril 40 mg tablet 40 mg PO BEDTIME carvedilol 25 mg tablet 25 mg PO BID Qty: 180 1RF Rx Instructions: must administer with a meal/food atorvastatin 80 mg tablet 80 mg PO BEDTIME aspirin 81 mg tablet,delayed release (DR/EC) 81 mg PO DAILY insulin lispro [Humalog KwikPen Insulin] 100 unit/mL insulin pen 10 unit subcut TIDAC insulin glargine [Lantus Solostar U-100 Insulin] 100 unit/mL (3 mL) insulin pen 44 unit subcut BEDTIME pantoprazole 20 mg tablet,delayed release (DR/EC) 20 mg PO QAM Spiriva Respimat 2.5 mcg/actuation mist 2 puff INHALATION DAILY Combivent Respimat 20-100 mcg/actuation mist 1 puff INHALATION QID PRN (Reason: Bronchospasm) isosorbide mononitrate 30 mg tablet extended release 24 hr 30 mg PO DAILY Qty: 30 5RF Jardiance 25 mg tablet 25 mg PO DAILY metformin 1,000 mg tablet 1,000 mg PO BIDWM Discontinued furosemide 40 mg tablet 40 mg PO QAM Qty: 90 3RF Rx Instructions: New dose is 40mg daily Discharge Orders: Discharge Order (Routine); Ordered 11/18/22 Ordered By: Joel Mckeon Diet: Diabetic diet Activity on Discharge: As tolerated Stand Alone Forms: Patient Portal Discharge page Care Plan Goals: increase dose of Lasix to 40 mg twice daily take oxycodone as needed for pain Health Concerns: diabetes mellitus/CHF follow diabetic diet and low-salt diet Plan of Treatment: outpatient follow-up with Dr. Dia for right BKA, outpatient follow-up with Cardiology Dr. Gracia call for appointment. Assessment: as above Discharge Date/Time: 11/18/22 16:02
--- NOTE | 2022-11-18 15:21 | MHC.CM.PN ---
PT MEDICALLY CLEARED FOR D/C HOME SELF-CARE, PT WILL CALL A FRIEND FOR TRANSPORT.
== END 2022-11-18 16:02 | disposition home or self-care (01) | DRG 197 ==
LOC: HO.ED 22:27 → HO.EDOVER 23:34 → HO.IMC 11-15 00:07
PROVIDERS: Nurse Practitioner Acute Care; Physician Assistant; Admitting Provider Internal Medicine; Emergency Provider Internal Medicine; PCP Family Medicine; Visit Provider Hospitalist
DX: E11.51 Type 2 diabetes mellitus with diabetic peripheral angiopathy without gangrene (principal); E87.20 Acidosis, unspecified; I42.8 Other cardiomyopathies; I70.235 Atherosclerosis of native arteries of right leg with ulceration of other part of foot; E78.00 Pure hypercholesterolemia, unspecified; F17.210 Nicotine dependence, cigarettes, uncomplicated; I25.10 Atherosclerotic heart disease of native coronary artery without angina pectoris; N40.0 Benign prostatic hyperplasia without lower urinary tract symptoms; I10 Essential (primary) hypertension; I25.5 Ischemic cardiomyopathy; Z71.6 Tobacco abuse counseling; L97.819 Non-pressure chronic ulcer of other part of right lower leg with unspecified severity; Z91.199 Patient's noncompliance with other medical treatment and regimen due to unspecified reason; Z79.4 Long term (current) use of insulin; Z79.82 Long term (current) use of aspirin; Z79.84 Long term (current) use of oral hypoglycemic drugs; Z79.899 Other long term (current) drug therapy
CPT/HCPCS: 36415; 73590; 75635; 76870; 80048; 80053; 81001; 82947; 83605; 83690; 85025; 85652; 86140; 87040; 87086; 93975; 94640; 99285; J0692; J1650; J1940; J2270; J2405; J2543; J3370; Q9967

== ENCOUNTER → 2022-12-01 14:07 | Outpatient (BNVA) | payer MEDICAID, SELFPAY | PROVIDERS: PCP Family Medicine; Visit Provider Surgery Vascular Surgery | DX: I73.9 Peripheral vascular disease, unspecified (principal); Z95.820 Peripheral vascular angioplasty status with implants and grafts | CPT/HCPCS: 99212 ==

== ENCOUNTER 2022-12-21 07:09 | Inpatient (IN) | payer MEDICAID, SELFPAY ==
[2022-12-16 15:28] VITALS: BMI 37.3
[2022-12-17 08:40] VITALS: BMI 37.4
--- NOTE | 2022-12-17 13:08 | HO.ANESPROP2 ---
HPI - Anesthesia Eval Consult details Narrative: 62yo M for Right Leg Amputation Below Knee Per cardiology, intermed to high cardiac risk intraop (Pt was volume overloaded on admit and was diuresed during inpt) [facility] [place] Admit 11/14- with PAD Nonhealing wound of right lower extremity/ with arterial occlusion/peripheral vascular disease, admitted to medical floor seen by vascular surgery Dr. Dia,? CT angiogram abdomen pelvis and lower extremity runoff with contrast? obtained that showed significant right? leg disease, but due to overall coronary status with low EF 20- 25% with acute on chronic congestive heart failure Dr. Dia discuss case with patient and he elected to move forward with BKA amputation,, patient requested to arrange this as an outpatient, therefore he is being discharged home with recommendation to follow-up with Dr. Dia for elective BKA, patient did not require wound debridement, seen by ID and antibiotics not recommended, continue aspirin and statin and in regard to significant 8/10 right leg pain patient is being discharged home on oxycodone 5 mg every 8 hours as needed total lumbar 12 tablets dispensed with recommendation to follow-up with primary care physician.? Patient was evaluated by appliance tester for perioperative risk assessment patient noted to have intermediate to high risk perioperative cardiovascular complications Cardio recommend to continue aspirin and diuretics. [facility] Active Problems Active Problems: All Active Problems (Updated 12/16/22 @ 15:29 by Jeanine Montano RN) Snoring (Acute) Witnessed apneic spells (Acute) Insomnia (Acute) Nocturnal leg cramps (Acute) Cellulitis, perineum (Acute) Urinary retention (Acute) BPH w urinary obs/LUTS (Acute) Nocturia more than twice per night (Acute) SOB (shortness of breath) (Acute) Type 2 diabetes mellitus with unspecified complications (Acute) Essential hypertension (Acute) Smoking (Acute) Cardiomyopathy (Acute) Coronary artery disease (Acute) Preoperative cardiovascular examination (Acute) Non-healing wound of right lower extremity (Acute) Arterial occlusion, lower extremity (Acute) PAD (peripheral artery disease) (Acute) High cholesterol (Acute) HTN (hypertension) (Acute) Abscess, perineum (Acute) Diabetes (Acute) Past Medical History Medical History Abscess, perineum Asthma BPH (benign prostatic hyperplasia) CAD (coronary artery disease) Cardiomyopathy Diabetes High cholesterol History of peripheral vascular disease HTN (hypertension) PAD (peripheral artery disease) Family History Family History Father No problems noted. Mother Diabetes HTN (hypertension) Sister No problems noted. Sister Diabetes HTN (hypertension) Sister No problems noted. Surgical History Surgical History History of cardiac cath History of surgical removal of pilonidal cyst Hx of hand surgery Hx of hand surgery Hx of varicose vein stripping S/P angiogram of extremity Social History Social History Household Members: None Housing: Apartment Housing Other:: elderly housing Are you a primary nanny caregiver to a significant other at home: No Do you presently have visiting nurse or other home services: Yes (OCCUPATIONAL HEALTH PHYSICIAN-son Rommel) Alcohol intake: never Patient Tobacco Use Status: Current everyday Tobacco user Tobacco use type: Cigarette Cigarette Packs Per Day: 0.5 Cigarettes Per Day: 10 Years Smoked: 15+/- Second Hand Smoke Exposure: No Use of substances other than those prescribed or required for medical reasons: No Currently Displaying Signs/Symptoms of Drug Intoxication Withdrawal: No Have you been hit, kicked, punched, or otherwise hurt by someone within the past year? If so, by whom?: No Advance Directives: Yes Advance Directives Information Provided: Yes Advance Directives on File: Yes Advance Directives Date on File: 12/10/20 Do you have thoughts of harming others: None Do you have a plan to hurt others: No Plan Recently lost weight without trying: No Nutrition Risks: No Nutritional Risk service: No Current occupational status: disabled Meds Allergies Allergy/AdvReac Type Severity Reaction Status Date / Time No Known Allergies Allergy Verified 12/16/22 15:15 Home Medications Medication Instructions Recorded Confirmed Last Taken Type aspirin 81 mg tablet,delayed 81 mg PO DAILY 12/10/20 12/21/22 12/09/20 History release atorvastatin 80 mg tablet 80 mg PO BEDTIME 12/10/20 12/21/22 12/09/20 History insulin glargine 100 unit/mL (3 44 unit subcut BEDTIME 12/10/20 12/21/22 11/14/22 History mL) subcutaneous pen (Lantus Solostar U-100 Insulin) insulin lispro 100 unit/mL 10 unit subcut TIDAC 12/10/20 12/21/22 11/14/22 History subcutaneous pen (Humalog KwikPen (U-100) Insulin) lisinopril 40 mg tablet 40 mg PO BEDTIME 03/23/22 12/21/22 Unknown History empagliflozin 25 mg tablet 25 mg PO DAILY 08/18/22 12/21/22 Unknown History (Jardiance) metformin 1,000 mg tablet 1,000 mg PO BIDWM 08/18/22 12/21/22 Unknown History ipratropium 20 mcg-albuterol 100 1 puff inhalation QID PRN 11/14/22 12/16/22 12/21/22 06:00 History mcg/actuation mist for inhalation Bronchospasm (Combivent Respimat) pantoprazole 20 mg tablet,delayed 20 mg PO QAM 11/14/22 12/21/22 Unknown History release tiotropium bromide 2.5 2 puff inhalation DAILY 11/14/22 12/21/22 Unknown History mcg/actuation mist for inhalation (Spiriva Respimat) albuterol sulfate 2.5 mg/3 mL 2.5 mg inhalation Q4H PRN SOB 12/21/22 12/21/22 Unknown History (0.083 %) solution for nebulization furosemide 20 mg tablet 20 mg PO DAILY 12/21/22 12/21/22 Unknown History furosemide 40 mg tablet (Lasix) 40 mg PO DAILY 12/21/22 12/21/22 Unknown History oxycodone 10 mg tablet 10 mg PO BID PRN Pain 12/21/22 12/21/22 Unknown History Exam Exam Date and Time: December 17, 2022 1308 Height,Weight and Vital Signs: Height 5 ft 5 in Weight 102.058 kg Pertinent Lab Results Pertinent Lab Results: Laboratory Tests 11/15/22 11/16/22 05:21 06:04 WBC 10.1 Hgb 13.4 L Hct 42.8 Plt Count 186 Sodium 135 Potassium 4.4 Chloride 102 Carbon Dioxide 22 BUN 18 H Creatinine 0.82 Narrative Narrative: EKG 08/2022 normal sinus rhythm, left axis deviation, LVH with QRS widening/repolarization abnormality, inferior infarct, unchanged from prior EKG, rate 84, QTC 477 millisecond ECHO 08/2022 Conclusions: - Moderately dilated left ventricle with severe LV systolic? ? ? dysfunction with LVEF of 20-25% with grade 3 diastolic ? dysfunction? ? Cardiac cath 06/2022 ?LAD and circumflex with moderate diffuse disease.? RCA shows severe diffuse disease.? Mid RCA with 99% stenosis.? However, not suitable for intervention.? Medical management only.? Continue aspirin, beta-blockers and high-dose statins.? Also on long-acting nitrates. Assessment and Plan Assessment Anesthesia Assessment: Chart Reviewed
[2022-12-21] VITALS (21 sets, daily range): BP systolic 110–149; BP diastolic 46–70; PULSE 51–77; RESP 16–20; TEMP 36.1–36.7; O2SAT 93–100
[2022-12-21 07:40] LABS: Hematocrit 43.5 % (42.0-52.0); Hemoglobin 13.9 g/dl (14.0-18.0); Mean Corpuscular Volume 90.8 fL (80.0-98.0); Mean Platelet Volume 10.9 fL (9.4-12.4); Platelet Count 173 X10*3/uL (160-400); Red Blood Count 4.79 X10*6/uL (4.60-5.80); Red Cell Distribution Width 14.4 % (11.0-16.0); White Blood Count 10.5 X10*3/uL (4.8-10.8)
[2022-12-21 07:48] LABS: INTERNATIONAL NORM RATIO 1.4 (0.9-1.1); Prothrombin Time 16.3 SEC (10.0-13.1)
[2022-12-21 07:51] LABS: Partial Thromboplastin Time 30.5 SEC (26.0-36.4)
--- NOTE | 2022-12-21 07:51 | HO.ANESPROP2 ---
[facility] Active Problems Active Problems: All Active Problems (Updated 12/16/22 @ 15:29 by Jeanine Montano RN) Snoring (Acute) Witnessed apneic spells (Acute) Insomnia (Acute) Nocturnal leg cramps (Acute) Cellulitis, perineum (Acute) Urinary retention (Acute) BPH w urinary obs/LUTS (Acute) Nocturia more than twice per night (Acute) SOB (shortness of breath) (Acute) Type 2 diabetes mellitus with unspecified complications (Acute) Essential hypertension (Acute) Smoking (Acute) Cardiomyopathy (Acute) Coronary artery disease (Acute) Preoperative cardiovascular examination (Acute) Non-healing wound of right lower extremity (Acute) Arterial occlusion, lower extremity (Acute) PAD (peripheral artery disease) (Acute) High cholesterol (Acute) HTN (hypertension) (Acute) Abscess, perineum (Acute) Diabetes (Acute) Past Medical History Medical History Abscess, perineum Asthma BPH (benign prostatic hyperplasia) CAD (coronary artery disease) Cardiomyopathy Diabetes High cholesterol History of peripheral vascular disease HTN (hypertension) PAD (peripheral artery disease) Family History Family History Father No problems noted. Mother Diabetes HTN (hypertension) Sister No problems noted. Sister Diabetes HTN (hypertension) Sister No problems noted. Family history of problems with anesthesia: No Surgical History Surgical History History of cardiac cath History of surgical removal of pilonidal cyst Hx of hand surgery Hx of hand surgery Hx of varicose vein stripping S/P angiogram of extremity History of Problems with Anesthesia: No Social History Social History Household Members: None Housing: Apartment Housing Other:: elderly housing Are you a primary resident care aide to a significant other at home: No Do you presently have visiting nurse or other home services: Yes (FLIGHT TEST ENGINEER-son Rommel) Alcohol intake: never Patient Tobacco Use Status: Current everyday Tobacco user Tobacco use type: Cigarette Cigarette Packs Per Day: 0.5 Cigarettes Per Day: 10 Years Smoked: 15+/- Second Hand Smoke Exposure: No Advance Directives Date on File: 12/10/20 service: No Current occupational status: disabled Meds Allergies Allergy/AdvReac Type Severity Reaction Status Date / Time No Known Allergies Allergy Verified 12/16/22 15:15 Active Medications: Current Medications Albuterol Sulfate (Albuterol Sulfate (0.083%) 2.5 Mg/3 Ml Vial.Neb) 2.5 mg INHALE ONCE PRN PRN Reason: Shortness of Breath/Wheezing Lactated Ringer's (Lr) 1,000 mls @ 0 mls/hr IVCONT .Q0M [facility] Home Medications Medication Instructions Recorded Confirmed Last Taken Type aspirin 81 mg tablet,delayed 81 mg PO DAILY 12/10/20 12/16/22 12/09/20 History release atorvastatin 80 mg tablet 80 mg PO BEDTIME 12/10/20 12/16/22 12/09/20 History insulin glargine 100 unit/mL (3 44 unit subcut BEDTIME 12/10/20 12/16/22 11/14/22 History mL) subcutaneous pen (Lantus Solostar U-100 Insulin) insulin lispro 100 unit/mL 10 unit subcut TIDAC 12/10/20 12/16/22 11/14/22 History subcutaneous pen (Humalog KwikPen (U-100) Insulin) lisinopril 40 mg tablet 40 mg PO BEDTIME 03/23/22 12/16/22 Unknown History empagliflozin 25 mg tablet 25 mg PO DAILY 08/18/22 12/16/22 Unknown History (Jardiance) metformin 1,000 mg tablet 1,000 mg PO BIDWM 08/18/22 12/16/22 Unknown History ipratropium 20 mcg-albuterol 100 1 puff inhalation QID PRN 11/14/22 12/16/22 12/21/22 06:00 History mcg/actuation mist for inhalation Bronchospasm (Combivent Respimat) pantoprazole 20 mg tablet,delayed 20 mg PO QAM 11/14/22 12/16/22 Unknown History release tiotropium bromide 2.5 2 puff inhalation DAILY 11/14/22 12/16/22 Unknown History mcg/actuation mist for inhalation (Spiriva Respimat) albuterol sulfate 2.5 mg/3 mL 1 inhalation Q4H PRN SOB 12/21/22 12/21/22 04:00 History (0.083 %) solution for nebulization Exam Exam Date and Time: December 21, 2022 0751 Height,Weight and Vital Signs: Height 5 ft 5 in Weight 102.058 kg Last Vital Signs Temp 97.1 F 12/21/22 07:39 Pulse 65 12/21/22 07:39 Resp 20 12/21/22 07:39 BP 132/61 12/21/22 07:39 Pulse Ox 98 12/21/22 07:39 O2 Del Method Room Air 12/21/22 07:39 Pertinent Lab Results Pertinent Lab Results: Laboratory Tests 12/21/22 07:31 WBC 10.5 RBC 4.79 Hgb 13.9 L Hct 43.5 MCV 90.8 MCH 29.0 MCHC 32.0 RDW 14.4 Plt Count 173 MPV 10.9 Absolute Nucleated RBC 0.000 Nucleated RBC % (auto) 0.0 Airway Mallampati Class: IV TM Dist: >3cm Neck ROM: Full Denture: Upper and Lower Heart: RRR Lungs: CTA Assessment and Plan Final Anesthetic Review Family History of Problems with Anesthesia: No History of Problems with Anesthesia: No ASA Class: III Final Preanesthetic Review: Meds/Allgs Chart Reviewed, Consent Obtained/Reviewed and Anes Risks/Benef Reviewed Patient Risk: Intermediate Procedure Risk: Intermediate Anesthetic Plan Anesthetic Plan: GA Disposition: Standard PACU
--- OUTSIDE RECORDS SUMMARY | 2022-12-21 08:00 | XMS_ITS | Continuity of Care Document ---
Author Name Unknown Organization [facility] Address [address] [place] [address]- Care Team Providers Care Needle Punch Operator Name Role Phone Loli Augustin MD Primary Care Physician Encounter [facility] Date(s): 07/19/19 - 07/29/19 [facility] [address] [place] [id number] [facility] Attending Physician: Admtr, Ar8 Admitting Physician: Admtr, Ar8 Referring Physician: Admtr, Ar8 Allergies, Adverse Reactions, Alerts Substance Reaction Severity Status NKA Active Medications aspirin 81 mg oral tablet 1 tablet = 81 mg, By Mouth, Daily, 0 Refills, Maintenance Start Date: 05/08/13 Status: Ordered Atorvastatin 80 mg, By Mouth, Daily at bedtime, Maintenance, 10/11/14 7:11:38 Start Date: 10/11/14 Status: Ordered Combivent Respimat CFC free 100 mcg-20 mcg/inh inhalation aerosol 1 puffs, Inhalation, 4 times a day, # 4 Gm, 0 Refills, Maintenance, 10/11/14 7:13:41, Aerosol Start Date: 10/11/14 Status: Ordered Coreg 3.125 mg oral tablet 1 tablet = 3.125 mg, By Mouth, 2 times a day, 0 Refills, Maintenance Start Date: 05/08/13 Status: Ordered Lantus Inj = 15 units, Subcutaneous Injection, Daily at bedtime, 0 Refills, Maintenance, 10/11/14 7:12:14, Injection Start Date: 10/11/14 Status: Ordered Zestril 40 mg oral tablet 1 tablet = 40 mg, By Mouth, Daily, 0 Refills, Maintenance Start Date: 05/08/13 Status: Ordered
--- OUTSIDE RECORDS SUMMARY | 2022-12-21 08:00 | XMS_ITS | Continuity of Care Document ---
Author Name Unknown Organization [facility] Address [address] [place] [phone]- Care Team Providers Care Buncher Hand Name Role Phone Loli Augustin MD Primary Care Physician Encounter [facility] Date(s): 05/19/22 - 05/19/[address] [address] Discharge Disposition: A-D/C Home Attending Physician: Alex Gracia MD Admitting Physician: Alex Gracia MD Referring Physician: Nikko Johnson MD Allergies, Adverse Reactions, Alerts No Known Allergies Medications albuterol 0.083% inhalation solution INHALE 1 AMPULE USING A NEBULIZER EVERY 4 HOURS NEEDED Start Date: 04/28/22 Status: Ordered Aspirin Low Dose 81 mg oral delayed release tablet TAKE 1 TABLET BY MOUTH EVERY MORNING Start Date: 04/28/22 Status: Ordered atorvastatin 80 mg oral tablet TAKE 1 TABLET BY MOUTH AT BEDTIME Start Date: 04/28/22 Status: Ordered Augmentin 875 mg-125 mg oral tablet TOME BERRY KIMMIEA MURPHY VECES AL D A Start Date: 04/28/22 Status: Ordered carvedilol 25 mg oral tablet TAKE 1 TABLET BY MOUTH TWICE DAILY IN THE MORNING AND IN THE EVENING WITH FOOD Start Date: 04/28/22 Status: Ordered Combivent Respimat 20 mcg-100 mcg/inh inhalation aerosol INHALE 1 PUFF 4 TIMES A DAY, MAY TAKE ADDITIONAL PUFFS NEEDED. (MAX OF 6 PUFFS PER DAY) Start Date: 04/28/22 Status: Ordered doxycycline monohydrate 100 mg oral tablet TAKE 1 TABLET BY MOUTH TWICE DAILY FOR 5 DAYS Start Date: 04/28/22 Status: Ordered finasteride 5 mg oral tablet TAKE 1 TABLET BY MOUTH AT BEDTIME Start Date: 04/28/22 Status: Ordered Insulin Lispro KwikPen 100 units/mL injectable solution INJECT 10 UNITS SUBCUTANEOUSLY THREE TIMES DAILY BEFORE MEALS Start Date: 04/28/22 Status: Ordered Jardiance 10 mg oral tablet TAKE 1 TABLET BY MOUTH EVERY MORNING Start Date: 04/28/22 Status: Ordered Lantus Solostar Pen 100 units/mL subcutaneous solution INJECT 40 UNITS SUBCUTANEOUSLY ONCE DAILY Start Date: 04/28/22 Status: Ordered Lasix 40 mg oral tablet 40 mg, 1, tablet, By Mouth, Daily, # 60 tablet, Refills 0, Tot. Refills 0, Maintenance, 05/19/22 13:27:00 EST, Route to Pharmacy Electronically, [facility]/pharmacy #[id number], Partial fill upon patient request if the prescription is for a schedule II opioid drug... Start Date: 05/19/22 Status: Ordered lisinopril 40 mg oral tablet TAKE 1 TABLET BY MOUTH AT BEDTIME Start Date: 04/28/22 Status: Ordered metFORMIN 1000 mg oral tablet TAKE 1 TABLET BY MOUTH TWICE DAILY IN THE MORNING AND IN THE EVENING WITH MEALS Start Date: 04/28/22 Status: Ordered pantoprazole 20 mg oral delayed release tablet TAKE 1 TABLET BY MOUTH EVERY MORNING Start Date: 04/28/22 Status: Ordered Problem List Condition Confirmation Course Effective Dates Status Health St atus Informant Obese class II Confirmed Active Vital Signs Most recent to oldest [Reference Range]: 1 2 Height 168 cm (05/19/22 10:48 AM) 168 cm (05/19/22 10:43 AM) Weight 109.5 kg (05/19/22 10:48 AM) 109.5 kg (05/19/22 10:43 AM) Oxygen Saturation [94-100 %] 88 % *L* (05/19/22 2:00 PM) 98 % (05/19/22 10:48 AM) Pulse Rate [55-90 bpm] 77 bpm (05/19/22 10:48 AM) Body Mass Index [18.5-24.99 kg/m2] 38.8 kg/m2 *>HHI* (05/19/22 10:48 AM) Blood Pressure [90-138/55-84 mm Hg] 175/ 93mm Hg *H* (05/19/22 2:00 PM) 147/61mm Hg *H* (05/19/22 10:48 AM) Respiratory Rate [16-30 br/min] 21 br/mi n (05/19/22 2:00 PM) 17 br/min (05/19/22 10:48 AM) Temperature [96.8-100.4 DegF] 98.1 DegF (05/19/22 10:48 AM) Mode of Delivery (Oxygen) Room air (05/19/22 2:00 PM) Room air (05/19/22 10:48 AM) Blood pressure sites Arm, left (05/19/22 2:00 PM) Arm, right (05/19/22 10:48 AM) Temperature Route Temporal (05/19/22 10:48 AM) Dry Weight 109.5 kg (05/19/22 10:48 AM) 109.5 kg (05/19/22 10:43 AM) Weight Obtained Via Standing scale (05/19/22 10:48 AM) Standing scale (05/19/22 10:43 AM) Dry Weight Obtained Via Standing scale (05/19/22 10:48 AM) Standing scale (05/19/22 10:43 AM) History and physical note * Event Display: History and Physical Hospital Authored Date: EKG study * Event Display: ECG 12-Lead Authored Date: Please click on pdf link to open report * Event Display: ECG 12-Lead Authored Date: Ventricular Rate: 75 BPM Atrial Rate: 75 BPM P-R Interval: 182 ms QRS Duration: 130 ms Q-T Interval: 426 ms QTC Calculation(Bazett): 475 ms P Tranquillity: 49 degrees R Tranquillity: -32 degrees T Tranquillity: 116 degrees Normal sinus rhythm Possible Left atrial enlargement Left axis deviation Left ventricular hypertrophy with QRS widening Inferior infarct , age undetermined T wave abnormality, consider lateral ischemia Abnormal ECG No previous ECGs available Confirmed by JERRI MABRY [facility] ([id number]) on 05/19/2022 5:58:26 PM [place] * Loli Estes: PERFORM, SIGN, VERIFY Event Display: Progress Note [facility] Authored Date: Patient: MARIANA HAMMOND Age: 61 years Sex: Male : 1960 Associated Diagnoses: None Author: Loli Estes Findings Narrative/Incidental pt recieved bag of NaCl fluids prior to the cath while waiting for procedure. pt became increasingly SOB with expiratory wheeze that was present on arrival. pt was using his inhaler from home in pre-op for the shortness of breath. upon arrival to cardiac catheterization technologist, it was determined pt was too fluid overloaded to be able to tolerate the procedure and was cancelled. new order for lasix 40mg IV was given and new Rx for lasix sent to his pharmacy on [facility]. pt to be sent home after recieving 40mg of IV lasix. wctm patient while waiting for ride to come. . Note * Loli Estes: PERFORM Event Display: Discharge/Transfer Note Hospital Authored Date: [id number] Nursing Discharge Note Entered On: 05/19/2022 14:39 EST Performed On: 05/19/2022 14:39 EST by Loli Estes Nursing Discharge Note 2 Discharge Time : 05/19/2022 14:38 EST Discharge Level of Care at Discharge : Home/Halfway/Foster Care Patient Left Unit Via : Wheelchair Patient Accompanied Off Unit with : Responsible adult DC Instructions Provided & Signed by Pt : Yes Patient Understands D/C Instructions : Yes Patient Instructions Discharge Signed : Yes Did Pt have Specialty Bed or Wound Vac : No Loli Estes - 05/19/2022 14:39 EST * Loli Estes: PERFORM Event Display: Patient Education Leaflets Authored Date: [id number] Furosemide Oral Tablet ?? [id number] Furosemide Oral Tablet Brands: Lasix Usos Jacquelyn medicamento se usa para las siguientes afecciones: ??? hinchaz??n ??? saadia presi??n arterial ?? Instrucciones Jacquelyn medicamento se puede ting con o sin alimentos. Es muy importante que se tome jacquelyn medicamento cerca de la misma hora todos los d??as. Obtendr?? mejores resultados si lo hace as??. Mantenga el medicamento a temperatura ambiente, alejado kwaku y el calor. Jacquelyn medicamento lo anne?? orinar m??s. Si tiene dificultad para orinar, av??wilfred a magallon m??dico. Jacquelyn medicamento puede hacer que tenga mayor sensibilidad al smith. Use ropa o crema protectora cuando se exponga al smith. Es importante que contin??e tomando todas las dosis de jacquelyn medicamento a la hora indicada aunque se sienta coy. Si olvida ting berry dosis, t??byron palacio pronto beltran se acuerde. Si es ami hora de magallon siguiente dosis, en lugar de ting la dosis olvidada vuelva a magallon programa regular. No tome 2 dosis de jacquelyn medicamento a la vez. Informe a magallon m??dico y a magallon farmac??utico acerca de todos los medicamentos que usa. [place] incluye medicamentos con y sin receta m??dica, vitaminas y medicamentos a base de hierbas. No deje de usar jacquelyn medicamento repentinamente. Consulte al m??dico antes de dejar de usarlo. Es muy importante que siga las instrucciones de magallon m??dico para todos los an??lisis de tricia. ?? Precauciones Informe a magallon m??dico y a magallon farmac??utico si alguna vez hunt tenido berry reacci??n al??rgica a un medicamento. Algunos pacientes que bruno esta medicina bryant experimentado graves efectos secundarios. Hable con magallon m??dico para entender los riesgos y los beneficios relacionados con esta medicina. No use el medicamento m??s veces de lo indicado. Jacquelyn medicamento puede causar mareos o desmayo, sobre todo despu??s de hacer ejercicio o en clima c??lido. Tenga cuidado cuando se pare o se siente con rapidez. Jacquelyn medicamento puede afectar magallon capacidad de mantenerse alerta o de reaccionar con rapidez. No maneje ni opere m??quinas hasta que sepa qu?? efecto le provocar?? jacquelyn medicamento. Consulte a magallon m??dico antes de beber alcohol mientras usa jacquelyn medicamento. Informe a magallon m??dico o farmac??utico si est?? o planea quedar embarazada, o si est?? amamantando. No empiece ni deje de ting otros medicamentos sin hablar monica con el m??dico o farmac??utico. No comparta jacquelyn medicamento con otras personas a quienes no se les recet??. ?? Efectos Secundarios La siguiente es berry lista de algunos efectos secundarios comunes de jacquelyn medicamento. Hable con el m??dico para saber qu?? debe hacer en garrett de tener estos u otros efectos secundarios. ??? estre??imiento ??? mareos ??? sequedad de la boca ??? falta de energ??a y cansancio ??? doloresde fredis ??? saadia concentraci??n de az??car en la tricia ??? baja presi??n arterial ??? problemas del h??gado ??? enrojecimiento, ardor o picaz??n en la piel ??? indigesti??n estomacal o dolor abdominal ??? aumento de sensibilidad en la piel a las quemaduras roney ??? aumento en la frecuencia urinaria ??? visi??n borrosa o cambios en la visi??n Si tiene alguno de los siguientes efectos secundarios, es posible que est?? recibiendo demasiada cantidad del medicamento. Comun??quese con magallon m??dico para informarle sobre estos efectos secundarios. ??? confusi??n ??? somnolencia o sedaci??n ??? desmayo ??? adormecimiento u hormigueo en las marielena y los pies ??? irritabilidad ??? calambres musculares ??? dolor o debilidad muscular ??? m??sculos apretados o r??gidos ??? sed ??? inestabilidad al caminar ??? orinar con menos frecuencia ??? orina oscura Llame al m??dico u obtenga atenci??n m??dica de inmediato si nota cualquiera de estos efectos secundarios m??s graves: ??? respiraci??n r??pida e irregular ??? cambios en la memoria, estado de ??napoleon o de pensamientos ??? problemas de o??do (tinnitus, p??rdida de la audici??n) ??? latidos del coraz??n acelerados o irregulares ??? problemas de los ri??ones ??? c??lculos renales ??? signos de da??o hep??koko (tales beltran ojos o piel amarillentos, orina oscura o cansancio inusual) ??? convulsiones ??? heces de color evaristo ??? cansancio o debilidad, extra??o o sin causa aparente ??? v??yuki intenso o persistente Algunas personas podr??an tener reacciones al??rgicas a jacquelyn medicamento. Entre los s??ntomas pueden incluirse: dificultad para respirar, erupci??n en la piel, comez??n, hinchaz??n o mareos intensos.Si nota algunos de estos s??ntomas, busque asistencia m??dica r??pidamente. ?? Extra Hable con magallon m??dico, enfermero o farmac??utico si tiene alguna pregunta acerca de jacquelyn medicamento. ?? [email or web address] NOTA IMPORTANTE: En jacquelyn documento hay berry explicaci??n breve sobre c??mo usar el medicamento, perono incluye todo lo que hay que saber acerca del medicamento. Magallon m??dico o magallon farmac??utico podr??a suministrarle otros documentos acerca de magallon medicamento. Comun??quese con ellos si tiene alguna pregunta. Siga siempre aston consejos. Berry descripci??n m??s completa de jacquelyn medicamento est?? disponibleen ingl??s. Escanee jacquelyn c??digo en magallon tel??fono inteligente o en magallon tableta, o use la direcci??n web que aparece a continuaci??n. Tambi??n puede pedirle a magallon farmac??utico berry copia impresa. Si tiene alguna pregunta, h??gasela a magallon farmac??utico. La exhibici??n y el uso de esta informaci??n sobre f??rmacos est?? sujeta a los T??rminos de Uso. Copyright(c) 2021 [employer], [employer]. ?? 3979-4304 [employer], [employer]. All rights reserved. This information is not intended as a substitute for professional medical care. Always follow your healthcare professional's instructions. ?? Patient Care team information Care Team Personnel Name: Loli uAgustin MD Position: S Outreach Member Role: PCP Address: Address: [address] [place] [address] [address] [place] [address]- [place] Care Team Related Persons Name: HENRY TORRES Address: home [address] [place] [id number] Name: JUAN GROVE
--- OUTSIDE RECORDS SUMMARY | 2022-12-21 08:00 | XMS_ITS | Continuity of Care Document ---
Author Name Unknown Organization [facility] Address [address] [place] [address]- Care Team Providers Care Advance Agent Name Role Phone Loli Augustin MD Primary Care Physician Encounter [facility] Date(s): 03/04/22 - 04/03/22 [facility] [address] [place], [place] [address] Attending Physician: Sangeeta Taylor Admitting Physician: AdmSangeeta wolf Referring Physician: Admtr, ArCayetano Allergies, Adverse Reactions, Alerts No Known Allergies Medications aspirin 81 mg oral tablet 1 [...] Refills, Maintenance Start Date: 05/08/13 Status: Ordered Patient Care team information Personnel Name: Loli Augustin MD Address: Address: [address] [facility] [address] [place], [place] [address]
--- OUTSIDE RECORDS SUMMARY | 2022-12-21 08:00 | XMS_ITS | Continuity of Care Document ---
Author Name Unknown Organization [facility] Address [address] [place] [address]- Care Team Providers Care Vp Clinical Research Name Role Phone Loli Augustin MD Primary Care Physician Encounter [facility] Date(s): 02/18/22 - 04/03/22 [facility] [address] [place], [place] [address] Attending Physician: Anival Richardson MD Admitting Physician: Anival Richardson MD Referring Physician: Concha ACUTE CARE NURSE PRACTITIONER, Suzanne Donaldson Allergies, Adverse Reactions, Alerts No Known Allergies [...] Name: Loli Augustin MD Address: Address: [address] [facility] [address] [place], [place] [address]
--- OUTSIDE RECORDS SUMMARY | 2022-12-21 08:00 | XMS_ITS | Continuity of Care Document ---
Author Name Unknown Organization [facility] Address [address] [place] [address]- Care Team Providers Care Medical Payment Poster Name Role Phone Loli Augustin MD Primary Care Physician Encounter [facility] Date(s): 06/29/19 - 08/18/19 [facility] [address] [place] [address] [facility] Attending Physician: Ab Guo MD Admitting Physician: Ab Guo MD Referring Physician: Loli Augustin MD Allergies, Adverse Reactions, Alerts Substance Reaction Severity [...]
--- OUTSIDE RECORDS SUMMARY | 2022-12-21 08:00 | XMS_ITS | Continuity of Care Document ---
Author Name Unknown Organization [facility] Address [address] [place] [address]- Care Team Providers Care Deicer Kit Assembler Name Role Phone Loli Augustin MD Primary Care Physician Encounter [facility] Date(s): 11/10/22 - 12/10/22 [facility] [address] [place] [address]- Allergies, Adverse Reactions, Alerts No Known Allergies [...] Augmentin 875 mg-125 mg oral tablet TOME EVIE TABLETA DOS VECES AL D A Start Date: 04/28/22 [...] tablet 40 mg, 1, tablet, By Mouth, 2 times a day, # 60 tablet, Refills 1, Tot. Refills 1, Maintenance, 06/18/22 17:28:00 EST, Route to Pharmacy Electronically, [facility]/pharmacy #[id number], Partial fill upon patient request if the prescription is for a schedule II opi... Start Date: 06/18/22 Status: Ordered lisinopril 40 mg oral tablet [...] atus Informant Obese class II Confirmed Active Patient Care team information Care Team Personnel Name: Demetria MABRY , Loli Barillas Position: [facility] Outreach Member Role: PCP Address: Address: [address] [facility] [address] [place] [address]- Care Team Related Persons Name: HENRY TORRES Address: home [address] [place] [address] Name: JUAN GROVE
[2022-12-21 08:02] LABS: Glucose, Whole Blood 158 mg/dL (60-115)
[2022-12-21 08:19] LABS: Anion Gap 13 (12-20); Blood Urea Nitrogen 18 mg/dL (9-16); Calcium 9.3 mg/dL (8.4-10.2); Carbon Dioxide 24 mmol/L (22-29); Chloride 107 mmol/L (96-108); Creatinine Clr Calc Pharmacy 98.8; Estimated Glomerular Filt Rate > 60; Glucose Random 166 mg/dL (60-115); Potassium 4.7 mmol/L (3.3-5.1); Sodium 139 mmol/L (135-145)
[2022-12-21] MEDS: Albuterol Sulfate (0.083%) 2.5 MG/3 ML VIAL.NEB INHALE (08:22)
--- NOTE | 2022-12-21 08:24 | PC.NURSE ---
PATIENT STATES HES BEEN URINATING BRIGHT RED BLOOD FOR THE PAST THREE DAYS. MD VALENCIA AWARE.
[2022-12-21 08:29] LABS: COVID-19 Test Negative (Negative); IDNOW Serial# BCCEAD1C
--- NOTE | 2022-12-21 08:33 | PHA.MEDREC ---
Pharmacy Consult ? Medication Reconciliation Pharmacy has completed the medication reconciliation.
--- NOTE | 2022-12-21 08:33 | MHC.SHP ---
Pre-Procedural Eval Section A Date of Service: 12/21/22 The patient is an INPATIENT: No Changes since office visit: Yes Patient answered all questions The History & Physical has been completed within 30 days and I have reviewed it.: Yes Section B Chief Complaint: Postop Allergies: Allergies Allergy/AdvReac Type Severity Reaction Status Date / Time No Known Allergies Allergy Verified 12/16/22 15:15 Plan I have reviewed the history and physical and performed a pertinent physical examination on my patient. No changes have occurred unless specified. Time Spent With Patient Time: Total time managing care of this patient today ____ minutes.
[2022-12-21] MEDS: Lactated Ringers 1,000 ML 20 ML IVCONT (09:10)
--- NOTE | 2022-12-21 11:00 | P.OP_ITS ---
Operative Note Operative Note Date of Service: 12/21/22 Narrative: Operative note by [facility] Preoperative diagnosis: 1. Ischemic right lower extremity 2. Diabetic foot ulcer Postoperative diagnosis: Same Procedure: 1. Right Leg below-knee amputation 2. Myodesis Surgeon:Justin Dia M.D. Fish Hatchery Man: Clover Anesthesia: General Specimens: One Drains: None Estimated blood loss:100 ml Indications: 62-year-old gentleman with prior history peripheral vascular disease in nonhealing pretibial ulcer presents for below-knee amputation. The patient has signed the informed consent after reviewing risks, complications, benefits, and alternatives previously discussed with the patient. The patient was given the opportunity to ask any additional questions or voice any concerns. All questions were answered to the patient's satisfaction. Procedure in detail: The patient was brought to the operating room prior to which a time-out was called for patient identification and site verification. The patient was per Canelo in a supine position. The right lower extremity was prepped and draped in the standard surgical fashion. The intended incision site was marked. The anterior aspect of the incision was made approximately 10 cm below the right tibial tuberosity. The incision was carried through the fascia. The anterior compartment muscles were divided using electrocautery dissection. The tibia and fibula were cleared. Periosteal elevator was used to clear the periosteum from the tibia. The tibia was transected with a power reciprocating saw. This was done in a reverse hockey stick shaped cut. The fibula was transected approximately 2 in above the tibial transection site once again with a reciprocating saw. The amputation was then completed using electrocautery to create the posterior flap. The flap was debulked using electrocautery and Metzenbaum scissors. The nerve was placed on traction and ligated and divided sharply. The anterior tibial posterior tibial and peroneal vessels were or identified and tied off with 2-0 silk ties. We then performed a myodesis. In the tibia on the medial and lateral aspect using a drill holes were then created. Using 2-0 Polysorb the muscle was then buttressed to the tibia. The wound was then closed using 2 0 poly Sorb. This was used to bring together the fascia from the posterior flap to the anterior cut. We then reapproximated the superficial layer with 3-0 poly Sorb suture. Finally skin was closed using 2 0 nylon in a mattress fashion. In addition we used skin clips. The stump was then room wrapped with Xeroform Kerlix and an Canelo wrap. The patient tolerated the procedure well. Brought to recovery with stable vitals. At the end the case sponge needle instrument counts were correct x2. This note is constructed using voice recognition software. While every effort has been made to ensure accuracy, compliance representative dealer errors may have been included. Thank you for allowing me to participate in the care of your patient. Yours sincerely, Justin Dia MD, FACS, R.P.V.I.
[2022-12-21] MEDS: fentaNYL citrate/PF 100 MCG/2 ML VIAL 25 MCG IVPUSH ×4 (11:05→11:51)
[2022-12-21] MEDS: oxyCODONE HCl Immed Release 5 MG TABLET PO ×3 (12:23→22:50)
[2022-12-21] MEDS: Morphine Sulfate 2 MG/ML CARTRIDGE IVPUSH (14:54)
[2022-12-21] MEDS: ceFAZolin Sodium/Dextrose,Iso 2 GM/50 ML PIGGYBACK IV (14:59)
[2022-12-21] MEDS: 0.9 % Sodium Chloride 1,000 ML 80 ML IVCONT (14:59)
--- NOTE | 2022-12-21 15:09 | P.CONHOSP_ITS ---
History of Present Illness Data of Consult Service Date: 12/21/22 Primary Care Provider: Loli Augustin MD HPI medical management for diabetes mellitus, asthma and hypertension 62-year-old gentleman with past medical history of diabetes, hypertension, history of cardiomyopathy, history of coronary artery disease, BPH, peripheral artery disease med admitted by Dr. Dia for elective low right BKA, for ischemic right lower extremity and diabetic foot ulcer, post surgery patient is complaining of severe right leg pain requesting for pain medication he denies associated nausea vomiting, no fevers tolerated lunch denies chest pain, no palpitations not providing detail history due to pain, provide history of intermittent hematuria, denies urinary urgency, no Frequency, blood sugars 158, stable electrolytes and renal function, hematocrit 43.5 with a hemoglobin of 13.9.. Review of Systems Review of Systems: General no headache no dizziness no fever chills. CVS no chest pain, no palpitation. Respiratory no cough no sob Gastrointestinal no nausea no vomiting, no abdominal pain skin no rash musculoskeletal right leg pain PMFSH Medical History Abscess, perineum Asthma BPH (benign prostatic hyperplasia) CAD (coronary artery disease) Cardiomyopathy Diabetes High cholesterol History of peripheral vascular disease HTN (hypertension) PAD (peripheral artery disease) Family History Father No problems noted. Mother Diabetes HTN (hypertension) Sister No problems noted. Sister Diabetes HTN (hypertension) Sister No problems noted. Surgical History History of cardiac cath History of surgical removal of pilonidal cyst Hx of hand surgery Hx of hand surgery Hx of varicose vein stripping S/P angiogram of extremity Social History Household Members: None Housing: Apartment Housing Other:: elderly housing Are you a primary patient care director to a significant other at home: No Do you presently have visiting nurse or other home services: Yes ([employer]AIR-son Rommel) Alcohol intake: never Patient Tobacco Use Status: Current everyday Tobacco user Tobacco use type: Cigarette Cigarette Packs Per Day: 0.5 Cigarettes Per Day: 10 Years Smoked: 15+/- Second Hand Smoke Exposure: No Use of substances other than those prescribed or required for medical reasons: No Advance Directives: Yes Advance Directives Information Provided: Yes Advance Directives on File: Yes Advance Directives Date on File: 12/10/20 service: No Current occupational status: disabled Meds Allergies Allergy/AdvReac Type Severity Reaction Status Date / Time No Known Allergies Allergy Verified 12/16/22 15:15 Active Medications: Current Medications Acetaminophen (Acetaminophen 325 Mg Tablet) 650 mg PO Q6H PRN PRN Reason: Pain, Mild (Pain Scale 1-3) Albuterol Sulfate (Albuterol Sulfate (0.083%) 2.5 Mg/3 Ml Vial.Neb) 2.5 mg INHALE RQ4H PRN PRN Reason: Shortness of Breath Aspirin (Aspirin Enteric Coated 81 Mg Tablet.Dr) 81 mg PO DAILY KARI Atorvastatin Calcium (Atorvastatin Calcium 80 Mg Tablet) 80 mg PO BEDTIME KARI Carvedilol (Carvedilol 25 Mg Tablet) 25 mg PO BID KARI; Protocol Empagliflozin (Empagliflozin 25 Mg Tablet) 25 mg PO DAILY KARI Furosemide (Furosemide 20 Mg Tablet) 20 mg PO DAILY KARI; Protocol Furosemide (Furosemide 40 Mg Tablet) 40 mg PO DAILY KARI; Protocol Sodium Chloride (Ns) 1,000 mls @ 80 mls/hr IVCONT .[id number] [facility] Last Admin: 12/21/22 14:59 Dose: 80 mls/hr Cefazolin Sodium/Dextrose (Ancef) 2 gm in 50 mls @ 100 mls/hr IV POSTOP ONE Stop: 12/21/22 15:29 Last Admin: 12/21/22 14:59 Dose: 100 mls/hr Insulin Glargine (Insulin Glargine,Hum.Rec.Anlog 100 Unit/Ml 10 Ml Vial) 44 unit SUBCUT BEDTIME [facility] Insulin Human Lispro (Insulin Lispro 100 Unit/Ml 3 Ml Vial) 10 unit SUBCUT TIDAC KARI Last Admin: 12/21/22 14:45 Dose: Not Given Isosorbide Mononitrate (Isosorbide Mononitrate 30 Mg Tab.Er.24h) 30 mg PO DAILY KARI; Protocol Lisinopril (Lisinopril 40 Mg Tablet) 40 mg PO BEDTIME KARI; Protocol Metformin HCl (Metformin Hcl 1,000 Mg Tablet) 1,000 mg PO BIDWM KARI Morphine Sulfate (Morphine Sulfate 2 Mg/Ml Cartridge) 2 mg IVPUSH Q4H PRN; Protocol PRN Reason: Pain, Severe (Pain Scale 7-10) Last Admin: 12/21/22 14:54 Dose: 2 mg Oxycodone HCl (Oxycodone Hcl Immed Release 5 Mg Tablet) 5 mg PO Q4H PRN PRN Reason: Pain, Moderate(Pain Scale 4-6) Last Admin: 12/21/22 12:23 Dose: 5 mg Sodium Chloride (0.9 % Sodium Chloride Flush 3 Ml Syringe) 3 ml IVFLUSH [facility] Tiotropium [place] (Tiotropium [place] 2.5 Mcg Inhaler) 2 [facility] Medications Medication Instructions Recorded Confirmed Last Taken Type aspirin 81 mg tablet,delayed 81 mg PO DAILY 12/10/20 12/21/22 12/09/20 History release atorvastatin 80 mg tablet 80 mg PO BEDTIME 12/10/20 12/21/22 12/09/20 History insulin glargine 100 unit/mL (3 44 unit subcut BEDTIME 12/10/20 12/21/22 11/14/22 History mL) subcutaneous pen (Lantus Solostar U-100 Insulin) insulin lispro 100 unit/mL 10 unit subcut TIDAC 12/10/20 12/21/22 11/14/22 History subcutaneous pen (Humalog KwikPen (U-100) Insulin) lisinopril 40 mg tablet 40 mg PO BEDTIME 03/23/22 12/21/22 Unknown History empagliflozin 25 mg tablet 25 mg PO DAILY 08/18/22 12/21/22 Unknown History (Jardiance) metformin 1,000 mg tablet 1,000 mg PO BIDWM 08/18/22 12/21/22 Unknown History ipratropium 20 mcg-albuterol 100 1 puff inhalation QID PRN 11/14/22 12/16/22 12/21/22 06:00 History mcg/actuation mist for inhalation Bronchospasm (Combivent Respimat) pantoprazole 20 mg tablet,delayed 20 mg PO QAM 11/14/22 12/21/22 Unknown History release tiotropium bromide 2.5 2 puff inhalation DAILY 11/14/22 12/21/22 Unknown History mcg/actuation mist for inhalation (Spiriva Respimat) albuterol sulfate 2.5 mg/3 mL 2.5 mg inhalation Q4H PRN SOB 12/21/22 12/21/22 Unknown History (0.083 %) solution for nebulization furosemide 20 mg tablet 20 mg PO DAILY 12/21/22 12/21/22 Unknown History furosemide 40 mg tablet (Lasix) 40 mg PO DAILY 12/21/22 12/21/22 Unknown History oxycodone 10 mg tablet 10 mg PO BID PRN Pain 12/21/22 12/21/22 Unknown History Physical Exam Vital Signs and Narrative: Vital Signs: Last Vital Signs Temp 97.6 F 12/21/22 14:14 Pulse 70 12/21/22 14:14 Resp 20 12/21/22 14:14 BP 116/58 L 12/21/22 14:14 Pulse Ox 98 12/21/22 14:14 O2 Del Method Room Air 12/21/22 14:14 BMI result Body Mass Index 37.4 Const: Other: General awake alert , In mild distress due to pain post surgery.? anicteric sclera Neck? supple no JVD. CVS? regular rate rhythm, Respiratory lungs clear to auscultation, no respiratory distress, no wheeze, no rhonchi. Gastrointestinal abdomen soft, nontender, bowel sounds audible,? no guarding , no rigidity. Extremities? right BKA dressing in place left lower extremity no edema Neuro nonfocal , speech clear. Skin no rash psych appropriate affect Results Labs 12/21/22 07:31 12/21/22 07:31 Labs: Laboratory Results - last 24 hr 12/21/22 12/21/22 12/21/22 07:31 07:31 07:31 MCV 90.8 MCH 29.0 MCHC 32.0 RDW 14.4 Plt Count 173 MPV 10.9 Absolute Nucleated RBC 0.000 Nucleated RBC % (auto) 0.0 PT 16.3 H INR 1.4 H APTT 30.5 Anion Gap 13 Estim Creat Clear Calc 98.8 Estimated GFR > 60 POC Glucose Random Glucose 166 H Calcium 9.3 D COVID-19 (EVIE) COVID-19 Clin Com Blood Type Antibody Screen 12/21/22 12/21/22 12/21/22 07:31 07:31 07:58 MCV MCH MCHC RDW Plt Count MPV Absolute Nucleated RBC Nucleated RBC % (auto) PT INR APTT Anion Gap Estim Creat Clear Calc Estimated GFR POC Glucose 158 H Random Glucose Calcium COVID-19 (EVIE) Negative COVID-19 Clin Com See Note Blood Type A Positive Antibody Screen NEGATIVE Assessment and Plan (1) Essential hypertension: Status: Acute (2) Cardiomyopathy: Status: Acute (3) Coronary artery disease: Status: Acute (4) Diabetes: Status: Acute (5) HTN (hypertension): Status: Acute Plan 62-year-old male with past medical history of peripheral vascular disease presents to the hospital with complaints of pain and nonhealing wound in the right lower extremity status post BKA POD 0 due to nonhealing wound and peripheral arterial disease. poor pain control will change to IV Dilaudid and continue oxycodone as needed further treatment plan as per vascular surgery DM2 ada diet, Lantus and pre meal insulin follow blood sugar closely hold off on insulin sliding scale History of cardiomyopathy recent echo showed EF 20-25%, severe global hypokinesis, no pericardial effus ion, grade 3 severe diastolic dysfunction appears euvolemic , follow clinical course, continue Lasix History of CAD continue carvedilol/aspirin and Lipitor DVT? Prophylaxis:? compression boots. Time Spent With Patient Time: Total time managing care of this patient today ____ minutes.
[2022-12-21] MEDS: HYDROmorphone HCl 0.5 MG/0.5 ML SYRINGE IVPUSH ×2 (15:50→20:05)
[2022-12-21] MEDS: 0.9 % Sodium Chloride Flush 3 ML SYRINGE IVFLUSH (15:50)
[2022-12-21 16:25] LABS: Glucose, Whole Blood 146 mg/dL (60-115)
[2022-12-21] MEDS: Acetaminophen 325 MG TABLET 650 MG PO ×2 (17:05→23:00)
[2022-12-21] MEDS: metFORMIN HCl 1,000 MG TABLET 1000 MG PO (17:05)
[2022-12-21] MEDS: Atorvastatin Calcium 80 MG TABLET PO (19:59)
[2022-12-21] MEDS: Insulin Glargine,Hum.rec.anlog 100 UNIT/ML 10 ML VIAL 44 UNIT SUBCUT (20:00)
[2022-12-21] MEDS: lisinopriL 40 MG TABLET PO (20:00)
[2022-12-21] MEDS: carvediloL 25 MG TABLET PO (20:03)
[2022-12-21 20:51] LABS: Glucose, Whole Blood 187 mg/dL (60-115)
[2022-12-22] VITALS (10 sets, daily range): BP systolic 123–143; BP diastolic 57–63; PULSE 67–87; RESP 15–20; TEMP 36.2–37.1; O2SAT 95–98
[2022-12-22] MEDS: Albuterol Sulfate (0.083%) 2.5 MG/3 ML VIAL.NEB INHALE (00:02)
[2022-12-22] MEDS: 0.9 % Sodium Chloride 1,000 ML 80 ML IVCONT ×2 (01:00→13:44)
[2022-12-22] MEDS: HYDROmorphone HCl 0.5 MG/0.5 ML SYRINGE IVPUSH ×5 (01:01→22:23)
[2022-12-22] MEDS: Morphine Sulfate 4 MG/ML CARTRIDGE IVPUSH (02:39)
[2022-12-22] MEDS: oxyCODONE HCl Immed Release 5 MG TABLET PO ×4 (03:59→19:50)
[2022-12-22 07:52] LABS: Glucose, Whole Blood 122 mg/dL (60-115)
--- NOTE | 2022-12-22 08:55 | PC.NURSE ---
Pt A+O x4, VSS as noted. Pt R stump surgical site with moderate amt bleeding, dressing reinforced no further bleed through noted. Pt c/o 9/10 pain and fidgety, restless, mildly agitated. iv dilaudid, po oxycodone, apap given with pt sleeping after each dose with face and body relaxed, breathing even and unlabored and generally no s/s distrss. He would wake suddenly with the continued 9/10- pain. paged for additional med when there was nothing due and pt again reporting severe pain. He was assisted to S+P to recliner as he stated it would be more comfortable. He stayed in the chair for approx 3 hours then was ready to go back to bed. Pt reports pain as throbbing. He was again sleeping with no s/s distress after dilaudid.
[2022-12-22] MEDS: metFORMIN HCl 1,000 MG TABLET 1000 MG PO ×2 (09:04→18:05)
[2022-12-22] MEDS: Isosorbide Mononitrate 30 MG TAB.ER.24H PO (09:04)
[2022-12-22] MEDS: carvediloL 25 MG TABLET PO ×2 (09:05→21:16)
[2022-12-22] MEDS: Empagliflozin 25 MG TABLET PO (09:06)
[2022-12-22] MEDS: Furosemide 40 MG TABLET PO (09:07)
[2022-12-22] MEDS: Furosemide 20 MG TABLET PO (09:08)
[2022-12-22] MEDS: 0.9 % Sodium Chloride Flush 3 ML SYRINGE IVFLUSH ×3 (09:08→22:23)
[2022-12-22 11:39] LABS: Glucose, Whole Blood 146 mg/dL (60-115)
--- NOTE | 2022-12-22 13:05 | P.PNIM_ITS ---
Subjective Subjective Date of Service: 12/22/22 Interval History: No complaints overnight. Pain control adequate All information gleaned via historic interpreter Review of Systems Denies chest pain Denies shortness of breath Denies nausea vomiting diarrhea Denies fever chills Physical Exam Vital Signs: Vital Signs: Last Vital Signs Temp 98.7 F 12/22/22 11:19 Pulse 77 12/22/22 11:31 Resp 20 12/22/22 11:31 BP 124/57 L 12/22/22 11:19 Pulse Ox 98 12/22/22 11:46 O2 Del Method Room Air 12/22/22 11:46 BMI result Body Mass Index 37.4 Const: Other: Awake alert no acute distress Resp: Other: Clear to auscultation bilaterally no rales rhonchi or wheezes Cardio: Other: No S4; positive S1-S2; no S3 murmurs rubs or gallops GI: Other: Soft nontender nondistended normoactive bowel sounds Extrem: Other: Right stump dressing clean dry and intact Objective Data Active Medications Acetaminophen (Acetaminophen 325 Mg Tablet) 650 mg PO Q6H PRN PRN Reason: Pain, Mild (Pain Scale 1-3) Last Admin: 12/21/22 23:00 Dose: 650 mg Documented By: RAYRAY Albuterol Sulfate (Albuterol Sulfate (0.083%) 2.5 Mg/3 Ml Vial.[facility]) 2.5 mg INHALE RQ4H PRN PRN Reason: Shortness of Breath Last Admin: 12/22/22 00:02 Dose: 2.5 mg Documented By: NEREYDA Aspirin (Aspirin Enteric Coated 81 Mg Tablet.) 81 mg PO DAILY [facility] Last Admin: 12/22/22 09:42 Dose: Not Given Documented By: PARAG Non-Admin Reason: pt bled through surg dsg overnight Atorvastatin Calcium (Atorvastatin Calcium 80 Mg Tablet) 80 mg PO BEDTIME [facility] Last Admin: 12/21/22 19:59 Dose: 80 mg Documented By: RAYRAY Carvedilol (Carvedilol 25 Mg Tablet) 25 mg PO BID [facility]; Protocol Last Admin: 12/22/22 09:05 Dose: 25 mg Documented By: PARAG Empagliflozin (Empagliflozin 25 Mg Tablet) 25 mg PO DAILY [facility] Last Admin: 12/22/22 09:06 Dose: 25 mg Documented By: PARAG Furosemide (Furosemide 20 Mg Tablet) 20 mg PO DAILY [facility]; Protocol Last Admin: 12/22/22 09:08 Dose: 20 mg Documented By: PARAG Furosemide (Furosemide 40 Mg Tablet) 40 mg PO DAILY [facility]; Protocol Last Admin: 12/22/22 09:07 Dose: 40 mg Documented By: PARAG Hydromorphone HCl (Hydromorphone Hcl 0.5 Mg/0.5 Ml Syringe) 0.5 mg IVPUSH Q4H PRN; Protocol PRN Reason: Pain, Severe (Pain Scale 7-10) Last Admin: 12/22/22 10:31 Dose: 0.5 mg Documented By: PARAG Sodium Chloride (Ns) 1,000 mls @ 80 mls/hr IVCONT .[id number] [facility] Last Admin: 12/22/22 01:00 Dose: 80 mls/hr Documented By: RAYRAY Insulin Glargine (Insulin Glargine,Hum.Rec.Anlog 100 Unit/Ml 10 Ml Vial) 44 unit SUBCUT BEDTIME [facility] Last Admin: 12/21/22 20:00 Dose: 44 unit Documented By: RAYRAY Insulin Human Lispro (Insulin Lispro 100 Unit/Ml 3 Ml Vial) 10 unit SUBCUT TIDAC [facility] Last Admin: 12/22/22 11:43 Dose: Not Given Documented By: PARAG Non-Admin Reason: No Insulin Coverage Isosorbide Mononitrate (Isosorbide Mononitrate 30 Mg Tab.Er.24h) 30 mg PO DAILY [facility]; Protocol Last Admin: 12/22/22 09:04 Dose: 30 mg Documented By: PARAG Lisinopril (Lisinopril 40 Mg Tablet) 40 mg PO BEDTIME [facility]; Protocol Last Admin: 12/21/22 20:00 Dose: 40 mg Documented By: RAYRAY Metformin HCl (Metformin Hcl 1,000 Mg Tablet) 1,000 mg PO BIDWM [facility] Last Admin: 12/22/22 09:04 Dose: 1,000 mg Documented By: PARAG Oxycodone HCl (Oxycodone Hcl Immed Release 5 Mg Tablet) 5 mg PO Q4H PRN PRN Reason: Pain, Moderate(Pain Scale 4-6) Last Admin: 12/22/22 09:04 Dose: 5 mg Documented By: PARAG Sodium Chloride (0.9 % Sodium Chloride Flush 3 Ml Syringe) 3 ml IVFLUSH QSHIFT [facility] Last Admin: 12/22/22 09:08 Dose: 3 ml Documented By: PARAG Tiotropium [place] (Tiotropium [place] 2.5 Mcg Inhaler) 2 puff INHALE RDAILY [facility] Last Admin: 12/22/22 11:17 Dose: 2 puff Documented By: KIM Labs 12/21/22 07:31 12/21/22 07:31 Labs: Laboratory Results - last 24 hr 12/21/22 12/21/22 12/22/22 16:23 20:29 07:16 POC Glucose 146 H 187 H 122 H 12/22/22 11:21 POC Glucose 146 H Assessment and Plan (1) Non-healing wound of right lower extremity: Status: Acute (2) HTN (hypertension): Status: Acute (3) Type 2 diabetes mellitus with unspecified complications: Status: Acute Plan 62-year-old male with past medical history of peripheral vascular disease presents to the hospital with complaints of pain and nonhealing wound in the right lower extremity 1.Status post R BKA POD 1 -acceptable pain control -as per vascular surgery 2.DM2 -acceptable control on current therapies -lispro correctional scale -adjust as indicated 3.HTN -acceptable control on current therapies -adjust as indicated Compression boots. Full code Time Spent With Patient Time: Total time managing care of this patient today ____ minutes. Quality Stroke Does the patient have a stroke diagnosis?: No VTE Prior VTE?: No VTE Risk Level:: Surgical - very high VTE Device Contraindication: N/A - Device Ordered VTE Drug Contraindication: Treatment Not Indicated
--- NOTE | 2022-12-22 13:56 | P.PNVS_ITS ---
Subjective Subjective Date of Service: 12/22/22 Patient reports: no new complaints and still having pain Interval history: Patient seen and examined. Postop day 1 status post BKA. Appears to have been doing better with the pain. Overall in better spirits. Now for routine follow- up. Physical Exam Vital Signs: Vital Signs: Last Vital Signs Temp 98.7 F 12/22/22 11:19 Pulse 77 12/22/22 11:31 Resp 20 12/22/22 11:31 BP 124/57 L 12/22/22 11:19 Pulse Ox 98 12/22/22 11:46 O2 Del Method Room Air 12/22/22 11:46 BMI result Body Mass Index 37.4 Const: General: cooperative, healthy appearing and no acute distress Orientation/consciousness: oriented to person, oriented to place and oriented to time HEENT: Head: Yes normal to inspection Neck: Carotids: no bruits Chest: Chest palpation & inspection: normal inspection of the chest Resp: Effort & Inspection: normal respiratory effort and able to speak in complete sentences Auscultation: clear to auscultation bilaterally Cardio: Rate: regular rate Heart sounds: S1 normal heart sound present and S2 normal heart sound present GI: Inspection: Yes normal to inspection Skin: Other: Right amputation dressing clean dry intact General skin exam: no rashes or lesions noted Wounds: amputation site Neuro: General: oriented to person, oriented to place, oriented to time and CN's II-XI intact bilaterally Extrem: General: Yes normal to inspection, Yes full ROM and Yes no clubbing, cyanosis or edema Psych: Appearance: grossly normal and well kempt Speech and movement: Normal speech and movement present Affect: normal affect Progress Note: A&P Assessment and plan (1) Non-healing wound of right lower extremity: Status: Acute Assessment and Plan: In short patient is doing well status post BKA. Will plan for dressing change for tomorrow. May potentially need rehab placement after that. Thank you to the hospitalist team for their assistance in his care. Time Spent With Patient Time: Total time managing care of this patient today ____ minutes. Procedures Date of Service Date of Service: 12/22/22 Quality Stroke Does the patient have a stroke diagnosis?: No VTE Prior VTE?: No VTE Risk Level:: Surgical - very high VTE Device Contraindication: N/A - Device Ordered VTE Drug Contraindication: Treatment Not Indicated
--- NOTE | 2022-12-22 14:34 | MHC.CM.PN ---
EMR REVIEWED, PT ADMITTED S/P RIGHT BKA, ANTIC PT WILL NEED STR AND CM MET W/PT VIA CLASSIFYING MACHINE OPERATOR FOR INTAKE AND TO DISCUSS SNF PREFERENCES, PT REPORTS HE HAS NO SPECIFIC PREFERENCES BUT WOULD LIKE TO STAY IN [facility], SNF REFERRAL PLACED TO [facility]. PT REPORTS HE LIVES ALONE, USES A CANE AND NEBULIZER, PT SON IS HIS PIPE STRAIGHTENER THROUGH [facility] [facility] AND PT RECEIVES 2HRS/DAY, HCP IS SON HENRY SALAS [phone]. CM RECEIVED CALL FROM [facility] [employer] WORKER ALEXUS [phone] WHO HAD QUESTIONS ON HOW TO GET PT DME, CM DID INSTRUCT HER TO GO THROUGH PCP FOR SCRIPT FOR HOSPITAL BED AND LET HER KNOW THE SNF CAN GIVE SCRIPTS FOR A W/C OR SHE COULD GO THROUGH PCP FOR THAT WELL. ALEXUS ALSO REPORTED PT HAS A REFERRAL OUT TO [facility] PT IS REQUESTING INCREASE IN PIPE STRAIGHTENER HRS [facility] IS ONLY ABLE TO PROVIDE 2 HRS A DAY. ALEXUS REPORTS PT ASKING FOR NEW PIPE STRAIGHTENER AND NO LONGER WANTS HIS SON AND HAS ANOTHER PERSON CHOSEN, ALEXUS AWARE INPT CM IS NOT ABLE TO ADDRESS THAT AND WOULD BE THE OUPT TEAM.
--- NOTE | 2022-12-22 14:38 | HO.POSTANES ---
Post Anesthesia Evaluation Post Anesthesia Evaluation Date of Service: 12/22/22 Vital Signs: Vital Signs Temp Pulse Resp BP Pulse Ox O2 Del Method 12/22/22 11:19 98.7 F 78 18 124/57 L 98 Room Air 12/22/22 11:31 77 20 12/22/22 11:46 98 Room Air 12/22/22 08:00 97 Room Air 12/22/22 07:12 97.1 F 71 20 132/60 97 Room Air 12/22/22 03:29 98 F 77 18 123/59 L 95 Room Air Anesthesia: General Mental Status: Awake Pain Control: Satisfactory Nausea/Vomiting: None Hydration: Adequate Anesthesia-Related Issues: No Anes. Related Issues
[2022-12-22] MEDS: Heparin Sodium,Porcine 5,000 UNIT/ML VIAL 5000 UNIT SUBCUT ×2 (14:43→21:15)
[2022-12-22 15:55] LABS: Glucose, Whole Blood 118 mg/dL (60-115)
--- NOTE | 2022-12-22 18:25 | PC.NURSE ---
pt reporting 9/10 pain to R BKA site. patient is receiving around the clock doses of dilaudid and oxycodone but does not experience any relief. Pt offered ice packs and other forms of non-pharmacologic pain management, but pt still c/o 9/10 pain. MD notified, no new orders at this time. Will continue to monitor
[2022-12-22] MEDS: Acetaminophen 325 MG TABLET 650 MG PO (19:49)
[2022-12-22] MEDS: Atorvastatin Calcium 80 MG TABLET PO (19:50)
[2022-12-22] MEDS: lisinopriL 40 MG TABLET PO (19:50)
[2022-12-22] MEDS: Insulin Glargine,Hum.rec.anlog 100 UNIT/ML 10 ML VIAL 44 UNIT SUBCUT (19:51)
[2022-12-22 20:42] LABS: Glucose, Whole Blood 136 mg/dL (60-115)
[2022-12-23] VITALS (11 sets, daily range): BP systolic 104–140; BP diastolic 51–69; PULSE 60–68; RESP 18–20; TEMP 36.4–36.8; O2SAT 95–99
[2022-12-23] MEDS: Heparin Sodium,Porcine 5,000 UNIT/ML VIAL 5000 UNIT SUBCUT ×3 (05:24→21:05)
[2022-12-23] MEDS: HYDROmorphone HCl 0.5 MG/0.5 ML SYRINGE IVPUSH ×4 (05:27→21:06)
[2022-12-23 07:40] LABS: Glucose, Whole Blood 86 mg/dL (60-115)
[2022-12-23] MEDS: metFORMIN HCl 1,000 MG TABLET 1000 MG PO ×2 (08:53→16:32)
[2022-12-23] MEDS: Furosemide 40 MG TABLET PO (08:53)
[2022-12-23] MEDS: carvediloL 25 MG TABLET PO ×2 (08:53→21:05)
[2022-12-23] MEDS: Aspirin Enteric Coated 81 MG TABLET.DR PO (08:53)
[2022-12-23] MEDS: Furosemide 20 MG TABLET PO (08:53)
[2022-12-23] MEDS: Empagliflozin 25 MG TABLET PO (08:53)
[2022-12-23] MEDS: Acetaminophen 325 MG TABLET 650 MG PO ×2 (08:55→16:32)
[2022-12-23] MEDS: oxyCODONE HCl Immed Release 5 MG TABLET PO ×2 (08:55→14:12)
[2022-12-23 08:57] LABS: Basophils Absolute Auto 0.1 X10*3/uL (0.0-0.2); Basophils Percent Auto 0.3 % (0-2); Eosinophils Percent Auto 0.1 % (0-4); Hematocrit 39.3 % (42.0-52.0); Hemoglobin 13.2 g/dl (14.0-18.0); Imm Gran Abs Auto 0.15 X10*3/uL (0.00-0.03); Imm Gran Pct Auto 0.8 % (0.0-0.4); Lymphocytes Absolute Auto 1.7 X10*3/uL (1.2-4.9); Lymphocytes Percent Auto 9.1 % (20-40); MANUAL DIFF FLAG SCAN; Mean Corpuscular HGB Conc 33.6 g/dl (31.0-36.0); Mean Corpuscular Hemoglobin 29.2 pg (27.0-33.0); Mean Corpuscular Volume 86.9 fL (80.0-98.0); Mean Platelet Volume 10.9 fL (9.4-12.4); Monocytes Absolute Auto 2.1 X10*3/uL (0.1-1.2); Monocytes Percent Auto 11.3 % (2-11); Neutrophils Absolute Auto 14.4 x10*3/uL (2.0-8.3); Neutrophils Percent Auto 78.4 % (45-73); PLT CLUMP 1; Red Blood Count 4.52 X10*6/uL (4.60-5.80); Red Cell Distribution Width 14.5 % (11.0-16.0); SCAN SMEAR FLAG 1; White Blood Count 18.3 X10*3/uL (4.8-10.8)
[2022-12-23] MEDS: 0.9 % Sodium Chloride Flush 3 ML SYRINGE IVFLUSH ×2 (09:01→16:33)
[2022-12-23] MEDS: Isosorbide Mononitrate 30 MG TAB.ER.24H PO (09:02)
[2022-12-23 09:34] LABS: Platelet Count 175 X10*3/uL (160-400); SLIDE REVIEW VERIFIED
--- NOTE | 2022-12-23 11:12 | HO.VASCPN ---
Subjective Subjective Date of Service: 12/23/22 Patient reports: no new complaints and feels better Interval history: Patient is postop day 2 status post BKA. Reports no significant pain overnight. Doing relatively well. He is refusing blood draws. In general it appears that his pain is getting progressively better. Now for routine follow-up. Physical Exam Vital Signs: Vital Signs: Last Vital Signs Temp 98.0 F 12/23/22 07:34 Pulse 67 12/23/22 07:38 Resp 20 12/23/22 07:38 BP 140/65 H 12/23/22 07:34 Pulse Ox 97 12/23/22 07:45 O2 Del Method Room Air 12/23/22 07:45 BMI result Body Mass Index 37.4 Const: General: cooperative, healthy appearing and no acute distress Orientation/consciousness: oriented to person, oriented to place and oriented to time HEENT: Head: Yes normal to inspection Neck: Carotids: no bruits Chest: Chest palpation & inspection: normal inspection of the chest Resp: Effort & Inspection: normal respiratory effort and able to speak in complete sentences Auscultation: clear to auscultation bilaterally Cardio: Rate: regular rate Heart sounds: S1 normal heart sound present and S2 normal heart sound present GI: Inspection: Yes normal to inspection Skin: Other: Stump dressing changed. There was a fair amount of saturation in the dressing but overall the stump is healing well and the flap is viable. General skin exam: no rashes or lesions noted Wounds: no wounds Neuro: General: oriented to person, oriented to place, oriented to time and CN's II-XI intact bilaterally Extrem: General: Yes normal to inspection, Yes full ROM and Yes no clubbing, cyanosis or edema Psych: Appearance: grossly normal and well kempt Speech and movement: Normal speech and movement present Affect: normal affect Progress Note: A&P Assessment and plan (1) PAD (peripheral artery disease): Status: Acute Assessment and Plan: In short patient is doing well status post BKA. Pain control continues to be an issue. He appears to be doing relatively well otherwise. Will plan for rehab placement for tomorrow. Thank you for the hospitalist team help in his care. Time Spent With Patient Time: Total time managing care of this patient today ____ minutes. Procedures Date of Service Date of Service: 12/23/22 Quality Stroke Does the patient have a stroke diagnosis?: No VTE Prior VTE?: No VTE Risk Level:: Surgical - very high VTE Device Contraindication: N/A - Device Ordered VTE Drug Contraindication: Treatment Not Indicated
[2022-12-23 11:34] LABS: Glucose, Whole Blood 104 mg/dL (60-115)
--- NOTE | 2022-12-23 14:18 | P.PNIM_ITS ---
Subjective Subjective Date of Service: 12/23/22 Interval History: No acute issues overnight. Pain control improved Review of Systems Denies chest pain Denies shortness of breath Denies nausea vomiting diarrhea Denies fever chills Physical Exam Vital Signs: Vital Signs: Last Vital Signs Temp 98.2 F 12/23/22 11:28 Pulse 60 12/23/22 11:28 Resp 20 12/23/22 11:28 BP 104/51 L 12/23/22 11:28 Pulse Ox 96 12/23/22 11:28 O2 Del Method Room Air 12/23/22 11:28 BMI result Body Mass Index 37.4 Const: Other: Awake alert no acute distress Resp: Other: Clear to auscultation bilaterally no rales rhonchi or wheezes Cardio: Other: No S4; positive S1-S2; no S3 murmurs rubs or gallops GI: Other: Soft nontender nondistended normoactive bowel sounds Extrem: Other: Right stump dressing clean dry and intact Objective Data Active Medications Acetaminophen (Acetaminophen 325 Mg Tablet) 650 mg PO Q6H PRN PRN Reason: Pain, Mild (Pain Scale 1-3) Last Admin: 12/23/22 08:55 Dose: 650 mg Documented By: RAYMOND Albuterol Sulfate (Albuterol Sulfate (0.083%) 2.5 Mg/3 Ml Vial.Neb) 2.5 mg INHALE RQ4H PRN PRN Reason: Shortness of Breath Last Admin: 12/22/22 00:02 Dose: 2.5 mg Documented By: NEREYDA Aspirin (Aspirin Enteric Coated 81 Mg Tablet.) 81 mg PO DAILY COUNT INCLUDES THE [facility] Last Admin: 12/23/22 08:53 Dose: 81 mg Documented By: RAYMOND Atorvastatin Calcium (Atorvastatin Calcium 80 Mg Tablet) 80 mg PO BEDTIME COUNT INCLUDES THE [facility] Last Admin: 12/22/22 19:50 Dose: 80 mg Documented By: MARCO A Carvedilol (Carvedilol 25 Mg Tablet) 25 mg PO BID COUNT INCLUDES THE [facility]; Protocol Last Admin: 12/23/22 08:53 Dose: 25 mg Documented By: RAYMOND Empagliflozin (Empagliflozin 25 Mg Tablet) 25 mg PO DAILY COUNT INCLUDES THE [facility] Last Admin: 12/23/22 08:53 Dose: 25 mg Documented By: RAYMOND Furosemide (Furosemide 20 Mg Tablet) 20 mg PO DAILY KARI; Protocol Last Admin: 12/23/22 08:53 Dose: 20 mg Documented By: RAYMOND Furosemide (Furosemide 40 Mg Tablet) 40 mg PO DAILY KARI; Protocol Last Admin: 12/23/22 08:53 Dose: 40 mg Documented By: RAYMOND Heparin Sodium (Porcine) (Heparin Sodium,Porcine 5,000 Unit/Ml Vial) 5,000 unit SUBCUT Q8H KARI Last Admin: 12/23/22 14:13 Dose: 5,000 unit Documented By: RAYMOND Hydromorphone HCl (Hydromorphone Hcl 0.5 Mg/0.5 Ml Syringe) 0.5 mg IVPUSH Q4H PRN; Protocol PRN Reason: Pain, Severe (Pain Scale 7-10) Last Admin: 12/23/22 10:39 Dose: 0.5 mg Documented By: RAYMOND Insulin Glargine (Insulin Glargine,Hum.Rec.Anlog 100 Unit/Ml 10 Ml Vial) 44 unit SUBCUT BEDTIME COUNT INCLUDES THE [facility] Last Admin: 12/22/22 19:51 Dose: 44 unit Documented By: MARCO A Insulin Human Lispro (Insulin Lispro 100 Unit/Ml 3 Ml Vial) 10 unit SUBCUT TIDAC COUNT INCLUDES THE [facility] Last Admin: 12/23/22 11:39 Dose: Not Given Documented By: RAYMOND Non-Admin Reason: No Insulin Coverage Isosorbide Mononitrate (Isosorbide Mononitrate 30 Mg Tab.Er.24h) 30 mg PO DAILY COUNT INCLUDES THE [facility]; Protocol Last Admin: 12/23/22 09:02 Dose: 30 mg Documented By: RAYMOND Lisinopril (Lisinopril 40 Mg Tablet) 40 mg PO BEDTIME KARI; Protocol Last Admin: 12/22/22 19:50 Dose: 40 mg Documented By: MARCO A Metformin HCl (Metformin Hcl 1,000 Mg Tablet) 1,000 mg PO BIDWM KARI Last Admin: 12/23/22 08:53 Dose: 1,000 mg Documented By: RAYMOND Oxycodone HCl (Oxycodone Hcl Immed Release 5 Mg Tablet) 5 mg PO Q4H PRN PRN Reason: Pain, Moderate(Pain Scale 4-6) Last Admin: 12/23/22 14:12 Dose: 5 mg Documented By: RAYMOND Sodium Chloride (0.9 % Sodium Chloride Flush 3 Ml Syringe) 3 ml IVFLUSH QSHIFT COUNT INCLUDES THE [facility] Last Admin: 12/23/22 09:01 Dose: 3 ml Documented By: RAYMOND Tiotropium [place] (Tiotropium [place] 2.5 Mcg Inhaler) 2 puff INHALE RDAILY COUNT INCLUDES THE [facility] Last Admin: 12/23/22 07:36 Dose: 2 puff Documented By: KIM Labs 12/23/22 08:40 12/21/22 07:31 Labs: Laboratory Results - last 24 hr 12/22/22 12/22/22 12/23/22 15:44 20:30 07:33 MCV MCH MCHC RDW Plt Count MPV Immature Gran % (Auto) Neut % (Auto) Lymph % (Auto) [place] % (Auto) Eos % (Auto) Baso % (Auto) Lymph # (Auto) [place] # (Auto) Eos # (Auto) Baso # (Auto) Abs Immat Gran (auto) Absolute Neuts (auto) Absolute Nucleated RBC Nucleated RBC % (auto) Smear Tech's Comments POC Glucose 118 H 136 H 86 12/23/22 12/23/22 08:40 11:27 MCV 86.9 MCH 29.2 MCHC 33.6 RDW 14.5 Plt Count 175 MPV 10.9 Immature Gran % (Auto) 0.8 H Neut % (Auto) 78.4 H Lymph % (Auto) 9.1 L [place] % (Auto) 11.3 H Eos % (Auto) 0.1 Baso % (Auto) 0.3 Lymph # (Auto) 1.7 [place] # (Auto) 2.1 H Eos # (Auto) 0.0 Baso # (Auto) 0.1 Abs Immat Gran (auto) 0.15 H Absolute Neuts (auto) 14.4 H Absolute Nucleated RBC 0.000 Nucleated RBC % (auto) 0.0 Smear Tech's Comments VERIFIED POC Glucose 104 Assessment and Plan (1) Type 2 diabetes mellitus with unspecified complications: Status: Acute (2) Smoking: Status: Acute Plan 62-year-old male with past medical history of peripheral vascular disease presents to the hospital with complaints of pain and nonhealing wound in the right lower extremity; no acute issues overnight 1.Status post R BKA POD 1 -acceptable pain control -as per vascular surgery 2.DM2 -acceptable control on current therapies -lispro correctional scale -adjust as indicated 3.HTN -acceptable control on current therapies -adjust as indicated Compression boots. Full code Time Spent With Patient Time: Total time managing care of this patient today ____ minutes. Quality Stroke Does the patient have a stroke diagnosis?: No VTE Prior VTE?: No VTE Risk Level:: Surgical - very high VTE Device Contraindication: N/A - Device Ordered VTE Drug Contraindication: Treatment Not Indicated
[2022-12-23 15:31] LABS: Glucose, Whole Blood 156 mg/dL (60-115)
--- NOTE | 2022-12-23 16:30 | MHC.CM.PN ---
EMR REVIEWED, PER SURGICAL ANTIC PT WILL BE READY FOR D/C TOMORROW, [facility] IS ONLY SNF IN [place] OFFERING PT A BED, [facility] UPDATED. CM WILL CONT TO FOLLOW D/C NEEDS.
--- NOTE | 2022-12-23 17:08 | PC.NURSE ---
this nurse recieved a call fo
--- NOTE | 2022-12-23 17:09 | PC.NURSE ---
this nurse received a call form pt observation room regarding to pt was using inhaler without RT in the room. Attempted to explain the reason why it needs to be done by RT and per MD order. pt understood but did not want to give to the nurse for keeping pt specific bin. MD diana d RT aware.
[2022-12-23] MEDS: Insulin Lispro 100 UNIT/ML 3 ML VIAL 10 UNIT SUBCUT (17:14)
[2022-12-23 19:29] LABS: Glucose, Whole Blood 81 mg/dL (60-115)
[2022-12-23 20:44] LABS: Glucose, Whole Blood 114 mg/dL (60-115)
[2022-12-23] MEDS: Atorvastatin Calcium 80 MG TABLET PO (21:05)
[2022-12-23] MEDS: lisinopriL 40 MG TABLET PO (21:05)
[2022-12-23] MEDS: Insulin Glargine,Hum.rec.anlog 100 UNIT/ML 10 ML VIAL 30 UNIT SUBCUT (21:06)
[2022-12-24 02:59] VITALS: BP 139/62; PULSE 74; RESP 18; TEMP 36.8; O2SAT 98
[2022-12-24] MEDS: 0.9 % Sodium Chloride Flush 3 ML SYRINGE IVFLUSH ×3 (04:25→13:24)
[2022-12-24 04:26] VITALS: RESP 18
[2022-12-24] MEDS: HYDROmorphone HCl 0.5 MG/0.5 ML SYRINGE IVPUSH ×3 (04:26→13:23)
[2022-12-24] MEDS: Heparin Sodium,Porcine 5,000 UNIT/ML VIAL 5000 UNIT SUBCUT ×2 (05:52→13:23)
[2022-12-24 07:05] LABS: Glucose, Whole Blood 116 mg/dL (60-115)
[2022-12-24 07:09] VITALS: BP 125/60; PULSE 69; RESP 18; TEMP 36.8; O2SAT 98
--- NOTE | 2022-12-24 07:18 | HO.VASCPN ---
Subjective Subjective Date of Service: 12/24/22 Patient reports: no new complaints and feels better Interval history: Patient seen and examined. No significant events overnight. Reports no significant pain. He is holding that knee in a contracted position and has limited range of motion on that stump. In general he reports that his pain control is significantly better. He appears to be in good spirits. Anxious to be discharged. Physical Exam Vital Signs: Vital Signs: Last Vital Signs Temp 98.2 F 12/24/22 07:09 Pulse 69 12/24/22 07:09 Resp 18 12/24/22 07:09 BP 125/60 12/24/22 07:09 Pulse Ox 98 12/24/22 07:09 O2 Del Method Room Air 12/24/22 07:09 BMI result Body Mass Index 37.4 Const: General: cooperative, healthy appearing and no acute distress Orientation/consciousness: oriented to person, oriented to place and oriented to time HEENT: Head: Yes normal to inspection Neck: Carotids: no bruits Chest: Chest palpation & inspection: normal inspection of the chest Resp: Effort & Inspection: normal respiratory effort and able to speak in complete sentences Auscultation: clear to auscultation bilaterally Cardio: Rate: regular rate Heart sounds: S1 normal heart sound present and S2 normal heart sound present GI: Inspection: Yes normal to inspection Skin: Other: Stump dressing clean dry intact. Minimal drainage General skin exam: no rashes or lesions noted Wounds: no wounds Neuro: General: oriented to person, oriented to place, oriented to time and CN's II-XI intact bilaterally Extrem: General: Yes normal to inspection, Yes full ROM and Yes no clubbing, cyanosis or edema Psych: Appearance: grossly normal and well kempt Speech and movement: Normal speech and movement present Affect: normal affect Progress Note: A&P Assessment and plan (1) PAD (peripheral artery disease): Status: Acute Assessment and Plan: In short patient is doing well status post BKA. Stable from my perspective for discharge. Dressing instructions were written on discharge note. In addition the patient can follow-up with me in approximately 2 weeks time upon discharge for suture and staple removal. Thank you for allowing us to assist in his care. Time Spent With Patient Time: Total time managing care of this patient today ____ minutes. Procedures Date of Service Date of Service: 06/22/23 Quality Stroke Does the patient have a stroke diagnosis?: No VTE Prior VTE?: No VTE Risk Level:: Surgical - very high VTE Device Contraindication: N/A - Device Ordered VTE Drug Contraindication: Treatment Not Indicated
[2022-12-24] MEDS: carvediloL 25 MG TABLET PO (08:05)
[2022-12-24] MEDS: Isosorbide Mononitrate 30 MG TAB.ER.24H PO (08:05)
[2022-12-24] MEDS: Furosemide 40 MG TABLET PO (08:05)
[2022-12-24] MEDS: Furosemide 20 MG TABLET PO (08:05)
[2022-12-24] MEDS: metFORMIN HCl 1,000 MG TABLET 1000 MG PO (08:05)
[2022-12-24] MEDS: Aspirin Enteric Coated 81 MG TABLET.DR PO (08:06)
[2022-12-24] MEDS: Empagliflozin 25 MG TABLET PO (08:06)
[2022-12-24 08:22] VITALS: PULSE 74; RESP 20; O2SAT 97
[2022-12-24 11:00] VITALS: O2SAT 97
[2022-12-24] MEDS: oxyCODONE HCl Immed Release 5 MG TABLET PO ×2 (11:12→15:39)
[2022-12-24 11:23] LABS: Glucose, Whole Blood 93 mg/dL (60-115)
[2022-12-24] MEDS: Magnesium Hydrox/Alum Hydrox 30 ML ORAL.SUSP PO (15:04)
[2022-12-24 15:10] VITALS: BP 135/59; PULSE 58; RESP 20; TEMP 36.4; O2SAT 98
--- NOTE | 2022-12-24 15:24 | P.DS_ITS ---
DS: Providers Provider Date of Service: 12/24/22 Date of admission: 12/21/22 07:09 Date of discharge: 12/24/22 Primary care physician: Loli Augustin MD Consults: 12/21/22 10:57 Consult to Hospitalist Routine Comment: Consulting Provider: Hospitalist Reason For Exam: Diabetes management DS: Diagnosis Discharge Diagnosis (1) PAD (peripheral artery disease): Status: Acute (2) Below-knee amputation of right lower extremity: Status: Acute DS: Summary Hospital Course Hospital Course: 6-year-old female, unable to report past medical history presenting to the emergency department with 2-3 days of constant dizziness.? States she feels as though the room is spinning.? Denies worse with head movement.? Denies feeling lightheaded, denies syncope.? Denies headache.? Denies blurred vision but states that she has difficulty concentrating on what she is looking at due to dizziness.? States last night around 8pm she sat on the couch to eat some vegetables and became diaphoretic.? States she has had similar symptoms in the past for which she has seen her PCP.? States she was prescribed a medication for her dizziness, but is unsure the name.? She took this for her current symptoms without improvement.? Denies tinnitus.? Reports difficulty with ambulation due to dizziness.? She denies any chest pain or dyspnea.?Unable to walk with max assist per ER.? Head CT negative. Hospital Course Admitted to telemetry and on 12/21/22 underwent right below-knee amputation without issue. Postop course essentially unremarkable. Patient voices no complaints and states pain is controlled. On the day prior to discharge, CBC was done which demonstrated a white count of 18.8. Patient repeatedly refused further laboratory evaluation. He remained afebrile and nontoxic. On the day of discharge, vascular surgery took down dressing on. . Vascular noted no abnormalities and stated the wound looked well. At this point in time white count could be followed up the receiving facility Time Spent with Patient Time attestation: Total time managing care of this patient today ____ minutes. Discharge coordination time: Greater than 30 minutes Quality: Safe Use of Opioids Does Pt have an Active Cancer Diagnosis on the Problem List?: No Quality: Stroke Does the patient have a stroke diagnosis?: No Physical Exam Vital Signs: Vital Signs: Last Vital Signs Temp 97.6 F 06/22/23 15:10 Pulse 58 12/24/22 15:10 Resp 20 12/24/22 15:10 BP 135/59 L 12/24/22 15:10 Pulse Ox 98 12/24/22 15:10 O2 Del Method Room Air 12/24/22 15:10 BMI result Body Mass Index 37.4 Const: Other: Awake alert no acute distress Resp: Other: Clear to auscultation bilaterally no rales rhonchi or wheezes Cardio: Other: No S4; positive S1-S2; no S3 murmurs rubs or gallops GI: Other: Soft nontender nondistended normoactive bowel sounds Extrem: Other: Right stump dressing clean dry and intact DS: Data Data Completed and Pending Completed studies during hospitalization [Text1]: Procedures Drainage of Perineum Skin, External Approach (12/10/20) Pending studies at discharge: Pending at discharge 12/21/22 09:42 Surgical [PTH] Routine Labs on day of discharge: Laboratory Results - last 24 hr 12/23/22 12/23/22 12/23/22 15:26 19:21 20:40 POC Glucose 156 H 81 114 12/24/22 12/24/22 07:00 11:12 POC Glucose 116 H 93 Discharge Plan Discharge Anticipated Discharge Date/Time: 12/24/22 15:13 Patient Disposition: Xfer Inpatient Rehab Fac Discharge Diagnosis: PA D status post right BKA Referrals: Day [facility] [Outside] - 1 Day (SHORT TERM REHAB) Loli Augustin MD [Primary Care Provider] - 1 Week Discharge Medications: New isosorbide mononitrate 30 mg Tablet Extended Release 24 Hr 30 mg PO DAILY Qty: 30 0RF Protocol: Hold for SBP< HOLD for SBP < : 90 oxycodone 5 mg tablet 5 mg PO Q6H PRN (Reason: pain) Qty: 30 0RF Rx Instructions: Partial Fill upon patient request. Continued lisinopril 40 mg tablet 40 mg PO BEDTIME carvedilol 25 mg tablet 25 mg PO BID Qty: 180 1RF Rx Instructions: must administer with a meal/food isosorbide mononitrate 30 mg tablet extended release 24 hr 30 mg PO DAILY Qty: 30 5RF atorvastatin 80 mg tablet 80 mg PO BEDTIME aspirin 81 mg tablet,delayed release (DR/EC) 81 mg PO DAILY insulin lispro [Humalog KwikPen Insulin] 100 unit/mL insulin pen 10 unit subcut TIDAC insulin glargine [Lantus Solostar U-100 Insulin] 100 unit/mL (3 mL) insulin pen 44 unit subcut BEDTIME pantoprazole 20 mg tablet,delayed release (DR/EC) 20 mg PO QAM Spiriva Respimat 2.5 mcg/actuation mist 2 puff INHALATION DAILY Combivent Respimat 20-100 mcg/actuation mist 1 puff INHALATION QID PRN (Reason: Bronchospasm) albuterol sulfate 2.5 mg /3 mL (0.083 %) solution for nebulization 2.5 mg inhalation Q4H PRN (Reason: SOB) furosemide 20 mg tablet 20 mg PO DAILY oxycodone 10 mg tablet 10 mg PO BID PRN (Reason: Pain) furosemide [Lasix] 40 mg tablet 40 mg PO DAILY Jardiance 25 mg tablet 25 mg PO DAILY metformin 1,000 mg tablet 1,000 mg PO BIDWM Discharge Orders: Discharge Order (Routine); Ordered 12/24/22 Ordered By: Cedric Marcelo Diet: Advance to usual diet Activity on Discharge: As tolerated Stand Alone Forms: Patient Portal Discharge page Activity Restrictions/Additional Instructions: Wound care upon discharge: xeroform, 4x4 and Kerlix wrap to be changed daily. Please call Dr. Dia at [phone] for 2 week follow up for suture and staple removal Care Plan Goals: Physical therapy as per receiving facility Health Concerns: Oxycodone 5 mg q.6 hours p.r.n. pain Plan of Treatment: As per receiving facility Assessment: See discharge summary
[2022-12-24 15:43] LABS: Glucose, Whole Blood 98 mg/dL (60-115)
--- NOTE | 2022-12-24 15:49 | MHC.CM.PN ---
PT MEDICALLY CLEARED FOR D/C TO STR AT [facility] AT 5:30PM, PT'S SON/HCP BRITTANY AND [facility] STAFF ESEQUIEL, [facility] FOR BLS TRANSPORT
== END 2022-12-24 18:09 | DRG 305 ==
LOC: HO.SSSA 07:58 → HO.IMC 13:30
PROVIDERS: Admitting Provider Surgery Vascular Surgery; PCP Family Medicine; Visit Provider Hospitalist
PROC: 0Y6H0Z2 Detachment at Right Lower Leg, Mid, Open Approach (ICD-10-PCS; CPT 27880; principal; 2022-12-21 08:40)
DX: E11.51 Type 2 diabetes mellitus with diabetic peripheral angiopathy without gangrene (principal); I42.9 Cardiomyopathy, unspecified; L97.819 Non-pressure chronic ulcer of other part of right lower leg with unspecified severity; I70.238 Atherosclerosis of native arteries of right leg with ulceration of other part of lower leg; I25.10 Atherosclerotic heart disease of native coronary artery without angina pectoris; E78.00 Pure hypercholesterolemia, unspecified; N40.0 Benign prostatic hyperplasia without lower urinary tract symptoms; F17.210 Nicotine dependence, cigarettes, uncomplicated; Z71.6 Tobacco abuse counseling; Z20.822 Contact with and (suspected) exposure to COVID-19; I10 Essential (primary) hypertension; Z79.4 Long term (current) use of insulin; Z79.82 Long term (current) use of aspirin; Z79.84 Long term (current) use of oral hypoglycemic drugs; Z79.899 Other long term (current) drug therapy
CPT/HCPCS: 36415; 80048; 82947; 85025; 85027; 85610; 85730; 86850; 86900; 86901; 87635; 88307; 94640; 97162; 97530; J0690; J1170; J1643; J2250; J2270; J2405; J2795; J3010

== ENCOUNTER → 2023-01-07 12:59 | Outpatient (BNVA) | payer MEDICAID, SELFPAY | PROVIDERS: PCP Family Medicine; Visit Provider Surgery Vascular Surgery ==

== ENCOUNTER 2023-01-14 16:04 | Inpatient (IN) | payer MEDICAID, SELFPAY ==
--- NOTE | ~2023-01-14 | XR_ITS ---
EXAMINATION: XR KNEE, RIGHT CLINICAL INFORMATION: s/P bka2 wks ago, cellulitis, r/o osteomyelitis COMPARISON: Right tibia-fibula 11/14/2022 TECHNIQUE: Three views of the right knee. FINDINGS: Status post below knee amputation. No bone destruction or abnormal periosteal reaction to suggest osteomyelitis. XR/XR knee RT 2V IMPRESSION: Status post below knee amputation. No radiographic evidence of osteomyelitis.
--- NOTE | ~2023-01-14 | XR_ITS ---
EXAMINATION: XR CHEST CLINICAL INFORMATION: Reason for Exam edema COMPARISON: Chest radiograph 12/16/2021 TECHNIQUE: One view of the chest FINDINGS: Lines and tubes: None. Clear lungs. No pleural effusion. No pneumothorax. Cardiac silhouette is mildly enlarged, unchanged from prior. XR/XR chest 1V IMPRESSION: 1. Clear lungs. 2. Cardiac silhouette is mildly enlarged, unchanged from prior.
[2023-01-14 16:20] VITALS: BP 122/78; BP 146/42; PULSE 70; PULSE 84; RESP 18; TEMP 36.6; O2SAT 95; O2SAT 97; BMI 25.8
--- NOTE | 2023-01-14 16:37 | PC.NURSE ---
pt a&ox3, vss aside from hypertension, pt comes in from [facility] d/t multiple falls from his electric wheelchair after getting a below the knee amputation in his right leg 3 weeks ago, foul odor coming from the site, hot to the touch, pt states drainage and 10/10 pain coming from where the extremity was amputated, pt requesting pain medication, call dominguez placed within reach.
[2023-01-14 18:07] VITALS: BP 129/38; PULSE 71; RESP 16; TEMP 37.3; O2SAT 98
--- NOTE | 2023-01-14 18:19 | ED.GENADULT ---
HPI - General Adult General Chief complaint: Extremity Injury, Lower Stated complaint: FALLS, BKA 3 WEEKS AGO Time Seen by Provider: 01/14/23 18:06 Source: patient, EMS and log brander Mode of arrival: EMS Limitations: no limitations History of Present Illness HPI narrative: A 62-year-old male with history PVD and unhealing ulcer in the right leg, s/p right BKA 3 weeks ago, came in today by ambulance for evaluation of pain in the stump for right BKA. The patient was seen by Dr. Dia postoperatively and he described that the patient has a poor healing of the stump and discharge, patient now have redness, hotness, foul smell, not from the stump. Related Data Home Medications Medication Instructions Recorded Confirmed aspirin 81 mg tablet,delayed 81 mg PO DAILY 12/10/20 12/21/22 release atorvastatin 80 mg tablet 80 mg PO BEDTIME 12/10/20 12/21/22 insulin glargine 100 unit/mL (3 44 unit subcut BEDTIME 12/10/20 12/21/22 mL) subcutaneous pen (Lantus Solostar U-100 Insulin) insulin lispro 100 unit/mL 10 unit subcut TIDAC 12/10/20 12/21/22 subcutaneous pen (Humalog KwikPen (U-100) Insulin) lisinopril 40 mg tablet 40 mg PO BEDTIME 03/23/22 12/21/22 empagliflozin 25 mg tablet 25 mg PO DAILY 08/18/22 12/21/22 (Jardiance) metformin 1,000 mg tablet 1,000 mg PO BIDWM 08/18/22 12/21/22 ipratropium 20 mcg-albuterol 100 1 puff inhalation QID PRN 11/14/22 12/16/22 mcg/actuation mist for inhalation Bronchospasm (Combivent Respimat) pantoprazole 20 mg tablet,delayed 20 mg PO QAM 11/14/22 12/21/22 release tiotropium bromide 2.5 2 puff inhalation DAILY 11/14/22 12/21/22 mcg/actuation mist for inhalation (Spiriva Respimat) albuterol sulfate 2.5 mg/3 mL 2.5 mg inhalation Q4H PRN SOB 12/21/22 12/21/22 (0.083 %) solution for nebulization furosemide 20 mg tablet 20 mg PO DAILY 12/21/22 12/21/22 furosemide 40 mg tablet (Lasix) 40 mg PO DAILY 12/21/22 12/21/22 oxycodone 10 mg tablet 10 mg PO BID PRN Pain 12/21/22 12/21/22 Previous Rx's Medication Instructions Recorded carvedilol 25 mg tablet 25 mg PO BID #180 tabs 07/10/22 isosorbide mononitrate 30 mg 30 mg PO DAILY #30 tabs 12/23/22 tablet,extended release 24 hr isosorbide mononitrate 30 mg 30 mg PO DAILY #30 tabs 12/24/22 tablet,extended release 24 hr oxycodone 5 mg tablet 5 mg PO Q6H PRN pain #30 tabs 12/24/22 Allergies Allergy/AdvReac Type Severity Reaction Status Date / Time No Known Allergies Allergy Verified 01/14/23 16:19 Review of Systems Review of Systems: All other systems are reviewed and are negative Constitutional: Reports as per HPI and Reports no additional constitutional complaints Eyes: Reports as per HPI and Reports no additional eye complaints Reports system reviewed and no additional complaints, except as documented Cardiovascular: Reports as per HPI and Reports no additional cardiovascular complaints Respiratory: Reports as per HPI and Reports no additional respiratory complaints Gastrointestinal: Reports as per HPI and Reports no additional gastrointestinal complaints Genitourinary: Reports no additional female genitourinary complaints Musculoskeletal: Reports no additional musculoskeletal complaints Skin/Breast: Reports system reviewed and no additional complaints, except as docu Psychiatric: Reports no additional psychiatric complaints Endocrine: Reports no additional endocrine complaints Hematologic/Lymphatic: Reports no additional hematologic/lymphatic complaints Allergic/Immunologic: Reports no additional allergic/immunologic complaints Reports system reviewed and no additional complaints, except as documented and Reports Abnormal speech present [facility] Past Medical History Medical History Abscess, perineum Asthma BPH (benign prostatic hyperplasia) CAD (coronary artery disease) Cardiomyopathy Cardiomyopathy Coronary artery disease Diabetes Essential hypertension High cholesterol History of peripheral vascular disease HTN (hypertension) PAD (peripheral artery disease) Type 2 diabetes mellitus with unspecified complications Surgical History History of cardiac cath History of surgical removal of pilonidal cyst Hx of hand surgery Hx of hand surgery Hx of varicose vein stripping S/P angiogram of extremity Family History Family History Father No problems noted. Mother Diabetes HTN (hypertension) Sister No problems noted. Sister Diabetes HTN (hypertension) Sister No problems noted. Social History Social History Household Members: None Housing: Apartment Housing Other:: elderly housing Are you a primary career placement specialist to a significant other at home: No Do you presently have visiting nurse or other home services: Yes (TELEMARKETER-son Rommel) Alcohol intake: never Patient Tobacco Use Status: Current everyday Tobacco user Tobacco use type: Cigarette Cigarette Packs Per Day: 0.5 Cigarettes Per Day: 10 Years Smoked: 15+/- Smoked in Last 30 Days: Yes Second Hand Smoke Exposure: No Use of substances other than those prescribed or required for medical reasons: No Advance Directives: Yes Advance Directives on File: Yes Advance Directives Date on File: 12/10/20 service: No Current occupational status: disabled Physical Exam ED Vital Signs: Vital Signs - 24 hr 01/14/23 16:20 01/14/23 18:07 Temperature 97.9 F 99.2 F Pulse Rate 70 71 Respiratory Rate 18 16 Blood Pressure 146/42 H 129/38 L Pulse Oximetry 95 98 Oxygen Delivery Method Room Air Room Air BMI result Body Mass Index 25.8 Vital signs have been reviewed as appeared to be correct. Blood pressure normal. Heart rate normal. Respiration rate normal. Temperature normal. Oxygen saturation normal. Appearance: Alert. Oriented X3. No acute distress. Head: Normal external exam. Normocephalic. Atraumatic. No Johnson signs noted. No raccoon eyes noted Eyes: PERRLA. EOMI. Conjunctiva and sclera normal. Eyelids normal. ENT: TM's Normal. Pharynx normal. Uvula midline. Moist mucous membranes. No trismus noted. No drooling noted. No muffled voice noted. Neck: Normal inspection. Neck supple. FROM. No adenopathy. Thyroid Normal. No meningeal signs. No neck mass noted. CVS: Normal heart rate and rhythm. Heart sound normal. No murmurs noted. Pulses normal throughout. Respiratory: No respiratory distress. Painless inspiration. Breath sounds normal. No wheezes/rales/rhonchi noted. Chest nontender. No accessory muscle usage noted or decreased air movement noted. Abdomen: Soft and nontender. Bowel sounds normal in all 4 quadrants. No distention noted. No organomegaly noted. No visible injury noted. Back: No CVA tenderness. Full range of motion noted. Skin: Skin warm and dry. Normal skin color. Normal skin turgor. No rashes/lesions/lacerations noted. Extremities: The amputation site in the BKA is poorly healing, with foul discharge, wound is open on the medial aspect, with redness, hotness, and tenderness to touch Neuro: Oriented X 3. Cranial nerve exam: II-XII are grossly intact No motor deficit. No sensory deficit. Reflexes normal. Course Course Course Narrative: 62-year-old male with history of PVD and nonhealing ulcer status post BKA 3 weeks ago presented today with stump cellulitis, patient do not meet criteria for SIRS, no severe sepsis or septic shock, no osteomyelitis on the x-ray, start the patient on vancomycin and Zosyn the case discussed with Dr. Dia patient will be admitted to the hospitalist service. Medications Administered Discontinued Medications Generic Name Dose Route Start Last Admin Trade Name Freq PRN Reason Stop Dose Admin Vancomycin HCl 1,500 mg/ 500 mls @ 333.333 mls/hr 01/14/23 18:30 01/14/23 20:01 Sodium Chloride IV 01/14/23 19:59 333.33 mls/hr ONCE ONE Administration Medical Decision Making Differential Diagnosis Differential Diagnoses: The differential diagnosis associated with the presentation includes (Cellulitis, stump abscess, osteomyelitis, electrolytes abnormality, anemia.) Admission/Observation Consideration of admission/observation: Escalation of care including admission/observation considered Consult Healthcare Provider Management of the patient was discussed with: Hospitalist (Dr. Vargas) and Audioprosthologist (Dr. Dia) Lab Data MDM Lab Attestation statement: I reviewed the patient's lab results. 01/14/23 18:51 01/14/23 18:51 Labs: Lab Results 01/14/23 01/14/23 01/14/23 Range/Units 18:50 18:51 18:51 WBC 13.9 H (4.8-10.8) X10*3/uL RBC 4.94 (4.60-5.80) X10*6/uL Hgb 14.1 (14.0-18.0) g/dl Hct 43.1 (42.0-52.0) % MCV 87.2 (80.0-98.0) fL MCH 28.5 (27.0-33.0) pg MCHC 32.7 (31.0-36.0) g/dl RDW 14.5 (11.0-16.0) % Plt Count 369 D (160-400) X10*3/uL MPV 9.7 (9.4-12.4) fL Immature Gran % (Auto) 0.4 (0.0-0.4) % Neut % (Auto) 70.5 (45-73) % Lymph % (Auto) 17.7 L (20-40) % [place] % (Auto) 8.0 (2-11) % Eos % (Auto) 2.8 (0-4) % Baso % (Auto) 0.6 (0-2) % Lymph # (Auto) 2.5 (1.2-4.9) X10*3/uL [place] # (Auto) 1.1 (0.1-1.2) X10*3/uL Eos # (Auto) 0.4 (0.0-0.4) X10*3/uL Baso # (Auto) 0.1 (0.0-0.2) X10*3/uL Abs Immat Gran (auto) 0.05 H (0.00-0.03) X10*3/uL Absolute Neuts (auto) 9.8 H (2.0-8.3) x10*3/uL Absolute Nucleated RBC 0.000 (0.0-0.012) X10*3/uL Nucleated RBC % (auto) 0.0 (0.0-0.2) /100WBC Sodium 137 (135-145) mmol/L Potassium 4.8 (3.3-5.1) mmol/L Chloride 103 (96-108) mmol/L Carbon Dioxide 26 (22-29) mmol/L Anion Gap 13 (12-20) BUN 28 H (9-16) mg/dL Creatinine 0.81 (0.5-1.4) mg/dL Estim Creat Clear Calc 83.1 Estimated GFR > 60 Random Glucose 110 (60-115) mg/dL Lactic Acid (0.5-2.0) mmol/L Calcium 10.2 D (8.4-10.2) mg/dL Total Bilirubin 0.5 (0.0-1.0) mg/dL Direct Bilirubin 0.2 (0.0-0.5) mg/dL AST 19 (5-37) U/L ALT 22 (0-40) U/L Alkaline Phosphatase 79 (39-117) U/L Total Protein 8.1 H (6.5-8.0) g/dL Albumin 3.9 (3.5-5.0) g/dL Lipase 17 (8-78) U/L Urine Color Yellow Urine Appearance Clear Urine pH 6.5 (5.0-9.0) Ur Specific [place] >= 1.030 H (1.005-1.025) Urine Protein Negative (Neg-Trace) mg/dL Urine Glucose (UA) >=1000 H (Negative) mg/dL Urine Ketones Negative (Negative) mg/dL Urine Blood Negative (Negative) Urine Nitrite Negative (Negative) Ur Leukocyte Esterase Negative (Negative) Urine RBC 3-5 H (0-2) /HPF Urine WBC 0-5 (0-5) /HPF Ur Squamous Epith Cells 0-2 (0-2) /HPF Urine Bacteria None Seen (None Seen) Hyaline Casts 0-2 (0-2) /LPF 01/14/23 Range/Units 18:51 WBC (4.8-10.8) X10*3/uL RBC (4.60-5.80) X10*6/uL Hgb (14.0-18.0) g/dl Hct (42.0-52.0) % MCV (80.0-98.0) fL MCH (27.0-33.0) pg MCHC (31.0-36.0) g/dl RDW (11.0-16.0) % Plt Count (160-400) X10*3/uL MPV (9.4-12.4) fL Immature Gran % (Auto) (0.0-0.4) % Neut % (Auto) (45-73) % Lymph % (Auto) (20-40) % [place] % (Auto) (2-11) % Eos % (Auto) (0-4) % Baso % (Auto) (0-2) % Lymph # (Auto) (1.2-4.9) X10*3/uL [place] # (Auto) (0.1-1.2) X10*3/uL Eos # (Auto) (0.0-0.4) X10*3/uL Baso # (Auto) (0.0-0.2) X10*3/uL Abs Immat Gran (auto) (0.00-0.03) X10*3/uL Absolute Neuts (auto) (2.0-8.3) x10*3/uL Absolute Nucleated RBC (0.0-0.012) X10*3/uL Nucleated RBC % (auto) (0.0-0.2) /100WBC Sodium (135-145) mmol/L Potassium (3.3-5.1) mmol/L Chloride (96-108) mmol/L Carbon Dioxide (22-29) mmol/L Anion Gap (12-20) BUN (9-16) mg/dL Creatinine (0.5-1.4) mg/dL Estim Creat Clear Calc Estimated GFR Random Glucose (60-115) mg/dL Lactic Acid 1.5 (0.5-2.0) mmol/L Calcium (8.4-10.2) mg/dL Total Bilirubin (0.0-1.0) mg/dL Direct Bilirubin (0.0-0.5) mg/dL AST (5-37) U/L ALT (0-40) U/L Alkaline Phosphatase (39-117) U/L Total Protein (6.5-8.0) g/dL Albumin (3.5-5.0) g/dL Lipase (8-78) U/L Urine Color Urine Appearance Urine pH (5.0-9.0) Ur Specific [place] (1.005-1.025) Urine Protein (Neg-Trace) mg/dL Urine Glucose (UA) (Negative) mg/dL Urine Ketones (Negative) mg/dL Urine Blood (Negative) Urine Nitrite (Negative) Ur Leukocyte Esterase (Negative) Urine RBC (0-2) /HPF Urine WBC (0-5) /HPF Ur Squamous Epith Cells (0-2) /HPF Urine Bacteria (None Seen) Hyaline Casts (0-2) /LPF Independent Interpretation I performed an independent interpretation of an: Plain X-Ray (Left knee x-ray: No evidence of osteomyelitis.) Radiology Impression Discussion of test interpretation with radiology: I have reviewed the radiologist's reading. Chronic Conditions Patient?s care impacted by: Other (PVD) Discharge Plan Discharge Clinical Impression: BKA stump complication, Cellulitis Patient Disposition: Admitted As Inpatient
--- NOTE | 2023-01-14 18:49 | PC.NURSE ---
2 rn attempted IV access x 2. pt refusing iv access except in one vein/area. scar tissue present and unable to thread IV cath.
[2023-01-14 19:01] LABS: MANUAL DIFF FLAG NO
[2023-01-14 19:03] LABS: Appearance Urine Clear; Color Urine Yellow; Glucose Urine UA >=1000 mg/dL (Negative); Leukocyte Esterase Urine Negative (Negative); Nitrite Urine Negative (Negative); PH 6.5 (5.0-9.0); Specific Gravity - Urine >= 1.030 (1.005-1.025); UMIC TRIGGER UACC YES; Urine Blood Negative (Negative); Urine Ketones Negative (Negative); Urine Protein Negative (Neg-Trace)
[2023-01-14 19:05] LABS: Basophils Absolute Auto 0.1 X10*3/uL (0.0-0.2); Basophils Percent Auto 0.6 % (0-2); Eosinophils Absolute Auto 0.4 X10*3/uL (0.0-0.4); Eosinophils Percent Auto 2.8 % (0-4); Hematocrit 43.1 % (42.0-52.0); Hemoglobin 14.1 g/dl (14.0-18.0); Imm Gran Abs Auto 0.05 X10*3/uL (0.00-0.03); Imm Gran Pct Auto 0.4 % (0.0-0.4); Lymphocytes Absolute Auto 2.5 X10*3/uL (1.2-4.9); Lymphocytes Percent Auto 17.7 % (20-40); Mean Corpuscular HGB Conc 32.7 g/dl (31.0-36.0); Mean Corpuscular Hemoglobin 28.5 pg (27.0-33.0); Mean Corpuscular Volume 87.2 fL (80.0-98.0); Mean Platelet Volume 9.7 fL (9.4-12.4); Monocytes Absolute Auto 1.1 X10*3/uL (0.1-1.2); Neutrophils Absolute Auto 9.8 x10*3/uL (2.0-8.3); Neutrophils Percent Auto 70.5 % (45-73); Platelet Count 369 X10*3/uL (160-400); Red Blood Count 4.94 X10*6/uL (4.60-5.80); Red Cell Distribution Width 14.5 % (11.0-16.0); White Blood Count 13.9 X10*3/uL (4.8-10.8)
[2023-01-14] MEDS: 0.9 % Sodium Chloride 1,000 ML 999 ML IV (19:12)
[2023-01-14] MEDS: Piperacillin Sodium/Tazobactam 3.375 GM in 0.9 % Sodium Chloride 50 ML IV (19:12)
[2023-01-14] MEDS: oxyCODONE HCl Immed Release 5 MG TABLET PO (19:12)
[2023-01-14 19:13] LABS: Bacteria Urine None Seen (None Seen); Hyaline Casts Urine 0-2 /LPF (0-2); Squamous Epithelial Cell Urine 0-2 /HPF (0-2); WBC Urine 0-5 /HPF (0-5)
[2023-01-14 19:15] LABS: Lactic Acid 1.5 mmol/L (0.5-2.0)
--- NOTE | 2023-01-14 19:19 | PC.NURSE ---
assumed care of patient at 1900 - 3d animator, aleta RN and MD in room discussing importance of iv line for fluids/abx. patient agreeable to iv line. #20g iv placed in RFA. iv fluids and antibiotics started. oxycodone given per mar for pain . pt tolerated well. will CTM
[2023-01-14 19:21] LABS: Alanine Aminotransferase 22 U/L (0-40); Albumin Level 3.9 g/dL (3.5-5.0); Alkaline Phosphatase 79 U/L (39-117); Anion Gap 13 (12-20); Aspartate Amino Transferase 19 U/L (5-37); Bilirubin Direct 0.2 mg/dL (0.0-0.5); Bilirubin Total 0.5 mg/dL (0.0-1.0); Blood Urea Nitrogen 28 mg/dL (9-16); Calcium 10.2 mg/dL (8.4-10.2); Carbon Dioxide 26 mmol/L (22-29); Chloride 103 mmol/L (96-108); Creatinine Clr Calc Pharmacy 83.1; Estimated Glomerular Filt Rate > 60; Glucose Random 110 mg/dL (60-115); Lipase 17 U/L (8-78); Potassium 4.8 mmol/L (3.3-5.1); Sodium 137 mmol/L (135-145); Total Protein 8.1 g/dL (6.5-8.0)
--- NOTE | 2023-01-14 19:43 | PC.NURSE ---
1000ml normal saline, 3.375 gm zosyn, and 5mg oxycodone tablet administered at 19:15. computer issue/system shut down and unable to complete medication scanning - pharmacy called immediately. per pharmacist they can see on their end that medications were administered by this RN, however documentation in MAR does not show administration of these medications d/t computer issue. pharmacist and packing attendant aware.
[2023-01-14] MEDS: vancomycin HCL 1,500 MG in 0.9 % Sodium Chloride 500 ML 333.33 MG IV (20:01)
--- NOTE | 2023-01-14 21:58 | PHA.MEDREC ---
Pharmacy Consult ? Medication Reconciliation Pharmacy has completed the medication reconciliation. Patient with list from [facility]
--- NOTE | 2023-01-14 22:22 | PM.IMHP ---
History of Present Illness Date of Service: 01/14/23 Chief Complaint: amputation site pain Tamazight-speaking only, history is obtained with the help of an barley steeper 62-year-old male with past medical history of diabetes, HTN, history of cardiomyopathy, history of CAD, BPH, peripheral arterial disease, recent recent below-knee amputation of the right leg due to nonhealing wound comes into the hospital with worsening infection of the surgical site. Patient reports that he had his surgery on the , had follow-up with this surgeon, was told that he has eaten infection in his amputation site, was given antibiotics, he has been taking it at the rehab center for several days, was seen by a wound nurse today, and was sent to the hospital for nonhealing. He is complaining of 10/10 severe pain in the amputation site, Constant, nonradiating, drainage, denies any fever but has chills, reports no chest pain, abdominal pain nausea or vomiting, no diarrhea constipation, no urinary symptoms and no lower extremity edema. On arrival to the ED patient hemodynamically stable no significant abnormal vitals Labs are significant for WBC count of 13.9, labs otherwise unremarkable, ESR and CRP pending Knee x-ray shows status post below-knee amputation with no evidence of osteomyelitis Patient started on IV antibiotics and will be admitted for further management with consult vascular surgery Review of Systems Review of Systems: Yes all other systems are reviewed and are negative [facility] Medical History Abscess, perineum Asthma BPH (benign prostatic hyperplasia) CAD (coronary artery disease) Cardiomyopathy Cardiomyopathy Coronary artery disease Diabetes Essential hypertension High cholesterol History of peripheral vascular disease HTN (hypertension) PAD (peripheral artery disease) Type 2 diabetes mellitus with unspecified complications Family History Father No problems noted. Mother Diabetes HTN (hypertension) Sister No problems noted. Sister Diabetes HTN (hypertension) Sister No problems noted. Surgical History History of cardiac cath History of surgical removal of pilonidal cyst Hx of hand surgery Hx of hand surgery Hx of varicose vein stripping S/P angiogram of extremity Social History Household Members: None Housing: Apartment Housing Other:: elderly housing Are you a primary acute care nurse practitioner to a significant other at home: No Do you presently have visiting nurse or other home services: Yes (MEDICAL LABORATORY ASSISTANT-son Rommel) Alcohol intake: never Patient Tobacco Use Status: Current everyday Tobacco user Tobacco use type: Cigarette Cigarette Packs Per Day: 0.5 Cigarettes Per Day: 10 Years Smoked: 15+/- Smoked in Last 30 Days: Yes Second Hand Smoke Exposure: No Use of substances other than those prescribed or required for medical reasons: No Advance Directives: Yes Advance Directives on File: Yes Advance Directives Date on File: 12/10/20 service: No Current occupational status: disabled Meds Allergies Allergy/AdvReac Type Severity Reaction Status Date / Time No Known Allergies Allergy Verified 01/14/23 16:19 Home Medications Medication Instructions Recorded Confirmed Last Taken Type aspirin 81 mg tablet,delayed 81 mg PO DAILY 12/10/20 01/14/23 12/09/20 History release atorvastatin 80 mg tablet 80 mg PO BEDTIME 12/10/20 01/14/23 12/09/20 History insulin glargine 100 unit/mL (3 44 unit subcut BEDTIME 12/10/20 01/14/23 11/14/22 History mL) subcutaneous pen (Lantus Solostar U-100 Insulin) insulin lispro 100 unit/mL 10 unit subcut TIDAC 12/10/20 01/14/23 11/14/22 History subcutaneous pen (Humalog KwikPen (U-100) Insulin) lisinopril 40 mg tablet 40 mg PO DAILY 03/23/22 01/14/23 Unknown History empagliflozin 25 mg tablet 25 mg PO DAILY 08/18/22 01/14/23 Unknown History (Jardiance) metformin 1,000 mg tablet 1,000 mg PO BIDWM 08/18/22 01/14/23 Unknown History ipratropium 20 mcg-albuterol 100 1 puff inhalation DAILY 11/14/22 01/14/23 12/21/22 06:00 History mcg/actuation mist for inhalation (Combivent Respimat) pantoprazole 20 mg tablet,delayed 20 mg PO DAILY 11/14/22 01/14/23 Unknown History release tiotropium bromide 2.5 2 puff inhalation DAILY 11/14/22 01/14/23 Unknown History mcg/actuation mist for inhalation (Spiriva Respimat) albuterol sulfate 2.5 mg/3 mL 2.5 mg inhalation Q4H PRN SOB 12/21/22 01/14/23 Unknown History (0.083 %) solution for nebulization furosemide 20 mg tablet 20 mg PO DAILY 12/21/22 01/14/23 Unknown History furosemide 40 mg tablet (Lasix) 40 mg PO DAILY 12/21/22 01/14/23 Unknown History amino ac-protein hydro-whey 1 ea PO DAILY 01/14/23 01/14/23 Unknown History protein 10 gram-100 kcal/30 mL oral liquid (ProSource) arginine-vitamin C-vitamin E oral 9.2 g PO DAILY 01/14/23 01/14/23 Unknown History 4.5 gram-156 mg/9.2 gram powder pkt (Arginaid) cephalexin 500 mg capsule 500 mg PO BID 01/14/23 01/14/23 Unknown History multivitamin 1 tab PO DAILY 01/14/23 01/14/23 Unknown History peg [id number] 1 2 drp ophthalmic (eye) QID PRN Dry 01/14/23 01/14/23 Unknown History %-0.2 %-0.2 % eye drops Eye(S) (Artificial Tears ([id number])) Physical Exam Vital Signs and Narrative: Vital Signs: Last Vital Signs Temp 99.2 F 01/14/23 18:07 Pulse 71 01/14/23 18:07 Resp 16 01/14/23 18:07 BP 129/38 L 01/14/23 18:07 Pulse Ox 98 01/14/23 18:07 O2 Del Method Room Air 01/14/23 18:07 BMI result Body Mass Index 25.8 Const: General: cooperative and no acute distress Orientation/consciousness: patient oriented x3 Eyes: General: appearance normal, both eyes and all related structures Pupils: Equal, round and reactive pupils present Resp: Effort & Inspection: normal respiratory effort Auscultation: clear to auscultation bilaterally Cardio: Rate: regular rate Rhythm: regular rhythm GI: Palpation (GI): Soft to palpation Auscultation: normal bowel sounds Skin: Other: see extremity exam Neuro: General: patient oriented x3 Cranial nerves: Yes Equal, round and reactive pupils present Cognition (Neuro): normal cognition Extrem: Other: right below-knee amputation, with amputation site wound with serosanguineous drainage, serous, erythema, tenderness Results Labs 01/14/23 18:51 01/14/23 18:51 Labs: Laboratory Results - last 24 hr 01/14/23 01/14/23 01/14/23 18:50 18:51 18:51 MCV 87.2 MCH 28.5 MCHC 32.7 RDW 14.5 Plt Count 369 D MPV 9.7 Immature Gran % (Auto) 0.4 Neut % (Auto) 70.5 Lymph % (Auto) 17.7 L [place] % (Auto) 8.0 Eos % (Auto) 2.8 Baso % (Auto) 0.6 Lymph # (Auto) 2.5 [place] # (Auto) 1.1 Eos # (Auto) 0.4 Baso # (Auto) 0.1 Abs Immat Gran (auto) 0.05 H Absolute Neuts (auto) 9.8 H Absolute Nucleated RBC 0.000 Nucleated RBC % (auto) 0.0 Anion Gap 13 Estim Creat Clear Calc 83.1 Estimated GFR > 60 Random Glucose 110 Lactic Acid Calcium 10.2 D Total Bilirubin 0.5 Direct Bilirubin 0.2 AST 19 ALT 22 Alkaline Phosphatase 79 Total Protein 8.1 H Albumin 3.9 Lipase 17 Urine Color Yellow Urine Appearance Clear Urine pH 6.5 Ur Specific [place] >= 1.030 H Urine Protein Negative Urine Glucose (UA) >=1000 H Urine Ketones Negative Urine Blood Negative Urine Nitrite Negative Ur Leukocyte Esterase Negative Urine RBC 3-5 H Urine WBC 0-5 Ur Squamous Epith Cells 0-2 Urine Bacteria None Seen Hyaline Casts 0-2 01/14/23 18:51 MCV MCH MCHC RDW Plt Count MPV Immature Gran % (Auto) Neut % (Auto) Lymph % (Auto) [place] % (Auto) Eos % (Auto) Baso % (Auto) Lymph # (Auto) [place] # (Auto) Eos # (Auto) Baso # (Auto) Abs Immat Gran (auto) Absolute Neuts (auto) Absolute Nucleated RBC Nucleated RBC % (auto) Anion Gap Estim Creat Clear Calc Estimated GFR Random Glucose Lactic Acid 1.5 Calcium Total Bilirubin Direct Bilirubin AST ALT Alkaline Phosphatase Total Protein Albumin Lipase Urine Color Urine Appearance Urine pH Ur Specific [place] Urine Protein Urine Glucose (UA) Urine Ketones Urine Blood Urine Nitrite Ur Leukocyte Esterase Urine RBC Urine WBC Ur Squamous Epith Cells Urine Bacteria Hyaline Casts Imaging Radiologist's Impressions: Impressions Knee X-Ray 01/14/23 18:20 IMPRESSION: Status post below knee amputation. No radiographic evidence of osteomyelitis. Assessment and Plan (1) BKA stump complication: Status: Acute (2) Infection of amputation site of lower extremity: Status: Acute (3) Below-knee amputation of right lower extremity: Status: Acute Plan patient with history of peripheral vascular disease status post right below-knee amputation on December 21 comes in with amputation site infection # amputation site infection - concerning for osteomyelitis, will obtain ESR and CRP - failed outpatient p.o. antibiotics - will treat with IV antibiotics - follow cultures - Vascular surgery consulted #? diabetes -? hold oral antihyperglycemics -? continue home insulin -? will add low-dose sliding scale insulin #? history of cardiomyopathy -? no evidence of exacerbation or fluid overload - ? continue home furosemide #? history of CAD -? continue carvedilol/aspirin DVT prophylaxis: Lovenox Given patient's need for IV antibiotics as he failed p.o. antibiotics for amputation site infection patient will be admitted for further management and monitoring and will require minimum 2 nights inpatient hospital stay Time Spent With Patient Time: Total time managing care of this patient today ____ minutes. Quality Stroke Does the patient have a stroke diagnosis?: No VTE Prior VTE?: No VTE Risk Level:: Surgical - very high VTE Device Contraindication: N/A - Device Ordered VTE Drug Contraindication: Treatment Not Indicated
[2023-01-14 22:26] VITALS: BP 150/62; PULSE 87; RESP 18; TEMP 37.2; O2SAT 99
--- NOTE | 2023-01-14 23:01 | PHA.PROG ---
Admission Date/Time: January 14, 2023 22:13 Indication: skin Weight in k.575 kg Adjusted body weight in Kg: [place] body weight in Kg: Obesity Dosing Indication % IBW: Serum Creatinine - Last 168 Hours 01/14/23 18:51 Creatinine 0.81 Estimated CrCl and GFR - Last 168 Hours 01/14/23 18:51 Estim Creat Clear Calc 83.1 Estimated GFR > 60 Vancomycin Loading Dose: 1500mg x 1 Current Vancomycin Dosing Regimen: 750 mg Q12H Vancomycin Monitoring using AUC goal of 400 - 600 range with trough as surrogate marker: 400mg/L Date and Time for next Vancomycin Level to be drawn: 01/16/23 @0600 Pharmacist Comments on Vancomycin Plan: Will continue to monitor renal function; predicted trough of 12.5mg/L Vancomycin dosing will take advantage of [employer] as a clinical decision support tool that uses Bayesian modeling to calculate individual patient's pharmacokinetic parameters and forecast the patient's drug concentration time course with the target goal AUC 24 range of 400 - 600 mg/L/hr.
[2023-01-14] MEDS: Morphine Sulfate 4 MG/ML CARTRIDGE IVPUSH (23:10)
[2023-01-14] MEDS: Enoxaparin Sodium 40 MG/0.4 ML SYRINGE SUBCUT (23:11)
[2023-01-14] MEDS: Insulin Glargine,Hum.rec.anlog 100 UNIT/ML 10 ML VIAL 44 UNIT SUBCUT (23:11)
[2023-01-14] MEDS: Atorvastatin Calcium 80 MG TABLET PO (23:11)
[2023-01-14] MEDS: carvediloL 25 MG TABLET PO (23:11)
[2023-01-14 23:31] LABS: Erythrocyte Sedimentation Rate 38 MM/HR (0-15)
[2023-01-15] VITALS: BP 147/65; PULSE 88; RESP 17; TEMP 36.2; O2SAT 95
[2023-01-15] MEDS: Piperacillin Sodium/Tazobactam 3.375 GM in 0.9 % Sodium Chloride 50 ML IV ×4 (01:47→18:16)
[2023-01-15 03:22] VITALS: BP 138/63; PULSE 69; RESP 17; TEMP 36.1; O2SAT 96
[2023-01-15] MEDS: Morphine Sulfate 4 MG/ML CARTRIDGE IVPUSH ×5 (04:54→23:56)
[2023-01-15] MEDS: Omeprazole 20 MG CAPSULE.DR PO (04:56)
[2023-01-15 07:47] LABS: Glucose, Whole Blood 133 mg/dL (60-115)
[2023-01-15 08:00] VITALS: BP 139/60; PULSE 69; RESP 16; TEMP 36.1; O2SAT 97
[2023-01-15] MEDS: Insulin Lispro 100 UNIT/ML 3 ML VIAL 10 UNIT SUBCUT ×3 (08:02→16:53)
[2023-01-15] MEDS: 0.9 % Sodium Chloride Flush 3 ML SYRINGE IVFLUSH ×3 (08:03→21:03)
[2023-01-15] MEDS: vancomycin HCL 750 MG in 0.9 % Sodium Chloride 250 ML 265 MG IV ×2 (08:03→19:23)
[2023-01-15] MEDS: Furosemide 40 MG TABLET PO (09:33)
[2023-01-15] MEDS: Isosorbide Mononitrate 30 MG TAB.ER.24H PO (09:33)
[2023-01-15] MEDS: Multivitamin TABLET 1 TAB PO (09:33)
[2023-01-15] MEDS: Furosemide 20 MG TABLET PO (09:33)
[2023-01-15] MEDS: Aspirin Enteric Coated 81 MG TABLET.DR PO (09:33)
[2023-01-15] MEDS: carvediloL 25 MG TABLET PO ×2 (09:33→21:02)
[2023-01-15] MEDS: lisinopriL 40 MG TABLET PO (09:33)
--- NOTE | 2023-01-15 10:31 | P.CONGS_ITS ---
History of Present Illness Consult details Consult date: 01/15/23 Reason for consult: wound care Narrative: Very pleasant 62-year-old gentleman who had undergone right BKA on 12/21/2022 presents for nonhealing stump. He had actually seen me as an outpatient in the office there was concern of cellulitis at that time with some mild serous drainage. At that time he was started on cephalexin. He was seen by the visiting nurse who subsequently sent him into the emergency room. He was seen worked up in subsequently admitted for wound care and IV antibiotic therapy. Of note his white count was 13.9. He reports minimal pain or discomfort. He is just concerned about the drainage from the wound site. He now presents for vascular evaluation. Review of Systems Review of Systems: Yes all other systems are reviewed and are negative Constitutional: Constitutional: Reports no additional constitutional complaints ENT: Reports Normal hearing present Cardiovascular: Cardiovascular: Denies chest pain, Denies chest pain at rest, Denies chest pain with activity and Denies pedal edema Respiratory: Respiratory: Denies cough Gastrointestinal: Gastrointestinal: Denies abdominal pain Musculoskeletal: Musculoskeletal: Denies abnormal gait, Denies muscle cramps and Denies radiating pain into limb Integumentary/Breasts: Skin/Breast: Denies skin ulcer and Denies wounds Neurologic: Reports Normal hearing present and Denies abnormal gait Psychiatric: Psychiatric: Reports no additional psychiatric complaints PMFSH Past Medical History Medical History Abscess, perineum Asthma BPH (benign prostatic hyperplasia) CAD (coronary artery disease) Cardiomyopathy Cardiomyopathy Coronary artery disease Diabetes Essential hypertension High cholesterol History of peripheral vascular disease HTN (hypertension) PAD (peripheral artery disease) Type 2 diabetes mellitus with unspecified complications Family History Family History Father No problems noted. Mother Diabetes HTN (hypertension) Sister No problems noted. Sister Diabetes HTN (hypertension) Sister No problems noted. Surgical History Surgical History History of cardiac cath History of surgical removal of pilonidal cyst Hx of hand surgery Hx of hand surgery Hx of varicose vein stripping S/P angiogram of extremity Social History Social History Household Members: None Housing: Apartment Housing Other:: elderly housing Are you a primary wound care specialist to a significant other at home: No Do you presently have visiting nurse or other home services: Yes ([employer]-son Rommel) Alcohol intake: never Patient Tobacco Use Status: Current everyday Tobacco user Tobacco use type: Cigarette Cigarette Packs Per Day: 0.5 Cigarettes Per Day: 10 Years Smoked: 15+/- Second Hand Smoke Exposure: No Advance Directives Date on File: 12/10/20 service: No Current occupational status: disabled Meds Allergies Allergy/AdvReac Type Severity Reaction Status Date / Time No Known Allergies Allergy Verified 01/14/23 16:19 Active Medications: Current Medications Acetaminophen (Acetaminophen 325 Mg Tablet) 650 mg PO Q6H PRN PRN Reason: Pain, Mild (Pain Scale 1-3) Albuterol Sulfate (Albuterol Sulfate (0.083%) 2.5 Mg/3 Ml Vial.Neb) 2.5 mg INHALE Q4H PRN PRN Reason: Shortness of Breath Albuterol/Ipratropium (Albuterol/Iprat 2.5/0.5mg 3 Ml Ampul.Neb) 3 ml INHALE RDAILY [facility] Artificial Tears (Artificial Tears 15 Ml Drops) 2 drop EYE-BOTH QID PRN PRN Reason: Dry Eye(S) Aspirin (Aspirin Enteric Coated 81 Mg Tablet.Dr) 81 mg PO DAILY [facility] Last Admin: 01/15/23 09:33 Dose: 81 mg Atorvastatin Calcium (Atorvastatin Calcium 80 Mg Tablet) 80 mg PO BEDTIME [facility] Last Admin: 01/14/23 23:11 Dose: 80 mg Carvedilol (Carvedilol 25 Mg Tablet) 25 mg PO BID [facility]ARI; Protocol Last Admin: 01/15/23 09:33 Dose: 25 mg Dextrose (Dextrose 50 % 25 Gm/50 Ml Syringe) 25 gm IVPUSH Q15M PRN; Protocol PRN Reason: per Hypoglycemia Standing Ord. Docusate Sodium (Docusate Sodium 100 Mg Capsule) 100 mg PO DAILY PRN PRN Reason: Constipation Enoxaparin Sodium (Enoxaparin Sodium 40 Mg/0.4 Ml Syringe) 40 mg SUBCUT Q24H [facility] Last Admin: 01/14/23 23:11 Dose: 40 mg Furosemide (Furosemide 20 Mg Tablet) 20 mg PO DAILY [facility]; Protocol Last Admin: 01/15/23 09:33 Dose: 20 mg Furosemide (Furosemide 40 Mg Tablet) 40 mg PO DAILY [facility]; Protocol Last Admin: 01/15/23 09:33 Dose: 40 mg Glucose (Glucose Gel 15 Gm Gel..Gram.) 15 gm PO Q15M PRN; Protocol PRN Reason: per Hypoglycemia Standing Ord. Piperacillin Sod/Tazobactam (Sod 3.375 gm/ Sodium Chloride) 50 mls @ 100 mls/hr IV Q6H [facility] Last Infusion: 01/15/23 07:01 Dose: Infused Vancomycin HCl 750 mg/ Sodium (Chloride) 265 mls @ 265 mls/hr IV Q12H [facility] Last Infusion: 01/15/23 09:43 Dose: Infused Insulin Glargine (Insulin Glargine,Hum.Rec.Anlog 100 Unit/Ml 10 Ml Vial) 44 unit SUBCUT BEDTIME [facility] Last Admin: 01/14/23 23:11 Dose: 44 unit Insulin Human Lispro (Insulin Lispro 100 Unit/Ml 3 Ml Vial) 0 unit SUBCUT QIDACHS [facility]; Protocol Last Admin: 01/15/23 07:52 Dose: Not Given Insulin Human Lispro (Insulin Lispro 100 Unit/Ml 3 Ml Vial) 10 unit SUBCUT TIDAC [facility] Last Admin: 01/15/23 08:02 Dose: 10 unit Isosorbide Mononitrate (Isosorbide Mononitrate 30 Mg Tab.Er.24h) 30 mg PO DAILY [facility]; Protocol Last Admin: 01/15/23 09:33 Dose: 30 mg Lisinopril (Lisinopril 40 Mg Tablet) 40 mg PO DAILY [facility]; Protocol Last Admin: 01/15/23 09:33 Dose: 40 mg Morphine Sulfate (Morphine Sulfate 4 Mg/Ml Cartridge) 4 mg IVPUSH Q4H PRN; Protocol PRN Reason: Pain, Severe (Pain Scale 7-10) Last Admin: 01/15/23 09:39 Dose: 4 mg Multivitamins/Vitamin C (Multivitamin Tablet) 1 tab PO DAILY [facility] Last Admin: 01/15/23 09:33 Dose: 1 tab Omeprazole (Omeprazole 20 Mg Capsule.Dr) 20 mg PO DAILY@0630 [facility] Last Admin: 01/15/23 04:56 Dose: 20 mg Ondansetron HCl (Ondansetron Hcl 4 Mg/2 Ml Vial) 4 mg IVPUSH Q8H PRN PRN Reason: Nausea and Vomiting Pharmacy Consult (Consult Rx Vancomycin Dosing) 1 each MISCELLANE DAILY PRN PRN Reason: Consult order Sodium Chloride (0.9 % Sodium Chloride Flush 3 Ml Syringe) 3 ml IVFLUSH QSHIFT [facility] Last Admin: 01/15/23 08:03 Dose: 3 ml Tiotropium [place] (Tiotropium [place] 2.5 Mcg Inhaler) 2 puff INHALE RDAILY [facility] Last Admin: 01/15/23 09:10 Dose: Not Given Home Medications Medication Instructions Recorded Confirmed Last Taken Type aspirin 81 mg tablet,delayed 81 mg PO DAILY 12/10/20 01/14/23 12/09/20 History release atorvastatin 80 mg tablet 80 mg PO BEDTIME 12/10/20 01/14/23 12/09/20 History insulin glargine 100 unit/mL (3 44 unit subcut BEDTIME 12/10/20 01/14/23 11/14/22 History mL) subcutaneous pen (Lantus Solostar U-100 Insulin) insulin lispro 100 unit/mL 10 unit subcut TIDAC 12/10/20 01/14/23 11/14/22 History subcutaneous pen (Humalog KwikPen (U-100) Insulin) lisinopril 40 mg tablet 40 mg PO DAILY 03/23/22 01/14/23 Unknown History empagliflozin 25 mg tablet 25 mg PO DAILY 08/18/22 01/14/23 Unknown History (Jardiance) metformin 1,000 mg tablet 1,000 mg PO BIDWM 08/18/22 01/14/23 Unknown History ipratropium 20 mcg-albuterol 100 1 puff inhalation DAILY 11/14/22 01/14/23 12/21/22 06:00 History mcg/actuation mist for inhalation (Combivent Respimat) pantoprazole 20 mg tablet,delayed 20 mg PO DAILY 11/14/22 01/14/23 Unknown History release tiotropium bromide 2.5 2 puff inhalation DAILY 11/14/22 01/14/23 Unknown History mcg/actuation mist for inhalation (Spiriva Respimat) albuterol sulfate 2.5 mg/3 mL 2.5 mg inhalation Q4H PRN SOB 12/21/22 01/14/23 Unknown History (0.083 %) solution for nebulization furosemide 20 mg tablet 20 mg PO DAILY 12/21/22 01/14/23 Unknown History furosemide 40 mg tablet (Lasix) 40 mg PO DAILY 12/21/22 01/14/23 Unknown History amino ac-protein hydro-whey 1 ea PO DAILY 01/14/23 01/14/23 Unknown History protein 10 gram-100 kcal/30 mL oral liquid (ProSource) arginine-vitamin C-vitamin E oral 9.2 g PO DAILY 01/14/23 01/14/23 Unknown History 4.5 gram-156 mg/9.2 gram powder pkt (Arginaid) cephalexin 500 mg capsule 500 mg PO BID 01/14/23 01/14/23 Unknown History multivitamin 1 tab PO DAILY 01/14/23 01/14/23 Unknown History peg [id number] 1 2 drp ophthalmic (eye) QID PRN Dry 01/14/23 01/14/23 Unknown History %-0.2 %-0.2 % eye drops Eye(S) (Artificial Tears ([id number])) Physical Exam Vital Signs: Vital Signs: Last Vital Signs Temp 96.9 F 01/15/23 08:00 Pulse 69 01/15/23 08:00 Resp 16 01/15/23 08:00 BP 139/60 01/15/23 08:00 Pulse Ox 97 01/15/23 08:00 O2 Del Method Room Air 01/15/23 08:00 BMI result Body Mass Index 25.8 Const: General: cooperative, healthy appearing and comfortable Orientation/consciousness: oriented to person, oriented to place and oriented to time HEENT: Head: Yes normal to inspection Neck: Neck: Yes normal visual inspection Carotids: no bruits Chest: Chest palpation & inspection: normal inspection of the chest Resp: Effort & Inspection: normal respiratory effort and able to speak in com plete sentences Auscultation: clear to auscultation bilaterally, no crackles, no rales, no rhonchi and no wheezes Cardio: Rate: regular rate Rhythm: regular rhythm Heart sounds: S1 normal heart sound present and S2 normal heart sound present Bruits: no carotid bruits Peripheral pulses: Peripheral pulses 2+ throughout GI: Inspection: Yes normal to inspection Skin: Other: Stump lateral aspects 7 cm opening serous drainage with some fibrin is necrotic material underlying. Wounds: no wounds Hair: normal Neuro: General: oriented to person, oriented to place and oriented to time Cranial nerves: Yes CN's II-XII intact bilaterally and Yes Normal hearing present Cognition (Neuro): normal cognition Motor exam (neuro): 5/5 motor strength present throughout Extrem: Other: venous exam: No significant superficial varicosities or spider telangiectasias, minimal edema General: No clubbing, No cyanosis and No edema Psych: Appearance: grossly normal Mental Status: mental status grossly normal Speech and movement: Normal speech and movement present Results Labs 01/14/23 18:51 01/14/23 18:51 Labs: Abnormal lab results 01/14/23 01/14/23 01/14/23 Range/Units 18:50 18:51 18:51 WBC 13.9 H (4.8-10.8) X10*3/uL Lymph % (Auto) 17.7 L (20-40) % Abs Immat Gran (auto) 0.05 H (0.00-0.03) X10*3/uL Absolute Neuts (auto) 9.8 H (2.0-8.3) x10*3/uL ESR (0-15) MM/HR BUN 28 H (9-16) mg/dL POC Glucose (60-115) mg/dL C-Reactive Protein 1.90 H (< or = 0.50) mg/dL Total Protein 8.1 H (6.5-8.0) g/dL Ur Specific [place] >= 1.030 H (1.005-1.025) Urine Glucose (UA) >=1000 H (Negative) mg/dL Urine RBC 3-5 H (0-2) /HPF 01/14/23 01/15/23 Range/Units 18:51 07:40 WBC (4.8-10.8) X10*3/uL Lymph % (Auto) (20-40) % Abs Immat Gran (auto) (0.00-0.03) X10*3/uL Absolute Neuts (auto) (2.0-8.3) x10*3/uL ESR 38 H (0-15) MM/HR BUN (9-16) mg/dL POC Glucose 133 H (60-115) mg/dL C-Reactive Protein (< or = 0.50) mg/dL Total Protein (6.5-8.0) g/dL Ur Specific [place] (1.005-1.025) Urine Glucose (UA) (Negative) mg/dL Urine RBC (0-2) /HPF Short CBC 01/14/23 Range/Units 18:51 WBC 13.9 H (4.8-10.8) X10*3/uL Hgb 14.1 (14.0-18.0) g/dl Hct 43.1 (42.0-52.0) % Plt Count 369 D (160-400) X10*3/uL BMP 01/14/23 18:51 Sodium 137 Potassium 4.8 Chloride 103 Carbon Dioxide 26 BUN 28 H Creatinine 0.81 Calcium 10.2 D Liver Function 01/14/23 Range/Units 18:51 Total Bilirubin 0.5 (0.0-1.0) mg/dL Direct Bilirubin 0.2 (0.0-0.5) mg/dL AST 19 (5-37) U/L ALT 22 (0-40) U/L Alkaline Phosphatase 79 (39-117) U/L Albumin 3.9 (3.5-5.0) g/dL Urine 01/14/23 Range/Units 18:50 Urine Color Yellow Urine Appearance Clear Urine pH 6.5 (5.0-9.0) Ur Specific [place] >= 1.030 H (1.005-1.025) Urine Protein Negative (Neg-Trace) mg/dL Urine Glucose (UA) >=1000 H (Negative) mg/dL All other labs normal. Assessment and Plan (1) Infection of amputation site of lower extremity: Status: Acute Plan In short patient has nonhealing right BKA stump. At the current time would start with local wound care including silver alginate dressings which I will write for. He in addition would like to start with IV antibiotic therapy. We will see how it clears up over the next few days. If no significant improvement may need operative debridement. We will closely monitor this patient with you. Thank you to the hospitalist for their assistance in his care. If there are any questions or concerns please do not hesitate to contact us Time Spent With Patient Time: Total time managing care of this patient today ____ minutes. Procedures Date of Service Date of Service: 01/15/23
[2023-01-15 11:44] LABS: Glucose, Whole Blood 108 mg/dL (60-115)
--- NOTE | 2023-01-15 14:39 | HO.PM.IMPN ---
Subjective Subjective Date of Service: 01/15/23 Interval History: Being followed for right BKA stump infection , complaining of pain, dressing done by Dr. Dia this morning patient tolerated procedure well denies fever, no chills, no nausea no vomiting, no abdominal pain, tolerating diet, no other acute issues since admission. History obtained via automotive parts interpreter. Review of Systems All other system reviewed and negative. Physical Exam Vital Signs: Vital Signs: Last Vital Signs Temp 96.9 F 01/15/23 08:00 Pulse 69 01/15/23 08:00 Resp 16 01/15/23 08:00 BP 139/60 01/15/23 08:00 Pulse Ox 97 01/15/23 08:00 O2 Del Method Room Air 01/15/23 08:00 BMI result Body Mass Index 25.8 Const: Other: General awake alert ,?in no acute distress.? anicteric sclera Neck? supple no JVD. CVS? regular rate rhythm, Respiratory lungs clear to auscultation, no respiratory distress, no wheeze, no rhonchi. Gastrointestinal abdomen soft, nontender, bowel sounds audible,? no guarding , no rigidity. Extremities? right? BKA dressing in place left lower extremity no edema Neuro nonfocal , speech clear. Skin no rash psych appropriate affect Objective Data Active Medications Acetaminophen (Acetaminophen 325 Mg Tablet) 650 mg PO Q6H PRN PRN Reason: Pain, Mild (Pain Scale 1-3) Albuterol Sulfate (Albuterol Sulfate (0.083%) 2.5 Mg/3 Ml Vial.Neb) 2.5 mg INHALE Q4H PRN PRN Reason: Shortness of Breath Albuterol/Ipratropium (Albuterol/Iprat 2.5/0.5mg 3 Ml Ampul.Neb) 3 ml INHALE RDAILY [facility] Artificial Tears (Artificial Tears 15 Ml Drops) 2 drop EYE-BOTH QID PRN PRN Reason: Dry Eye(S) Aspirin (Aspirin Enteric Coated 81 Mg Tablet.) 81 mg PO DAILY [facility] Last Admin: 01/15/23 09:33 Dose: 81 mg Documented By: ROWDY Atorvastatin Calcium (Atorvastatin Calcium 80 Mg Tablet) 80 mg PO BEDTIME [facility] Last Admin: 01/14/23 23:11 Dose: 80 mg Documented By: KALLI Carvedilol (Carvedilol 25 Mg Tablet) 25 mg PO BID [facility]; Protocol Last Admin: 01/15/23 09:33 Dose: 25 mg Documented By: ROWDY Dextrose (Dextrose 50 % 25 Gm/50 Ml Syringe) 25 gm IVPUSH Q15M PRN; Protocol PRN Reason: per Hypoglycemia Standing Ord. Docusate Sodium (Docusate Sodium 100 Mg Capsule) 100 mg PO DAILY PRN PRN Reason: Constipation Enoxaparin Sodium (Enoxaparin Sodium 40 Mg/0.4 Ml Syringe) 40 mg SUBCUT Q24H [facility] Last Admin: 01/14/23 23:11 Dose: 40 mg Documented By: KALLI Furosemide (Furosemide 20 Mg Tablet) 20 mg PO DAILY [facility]; Protocol Last Admin: 01/15/23 09:33 Dose: 20 mg Documented By: ROWDY Furosemide (Furosemide 40 Mg Tablet) 40 mg PO DAILY [facility]; Protocol Last Admin: 01/15/23 09:33 Dose: 40 mg Documented By: ROWDY Glucose (Glucose Gel 15 Gm Gel..Gram.) 15 gm PO Q15M PRN; Protocol PRN Reason: per Hypoglycemia Standing Ord. Piperacillin Sod/Tazobactam (Sod 3.375 gm/ Sodium Chloride) 50 mls @ 100 mls/hr IV Q6H [facility] Last Infusion: 01/15/23 13:48 Dose: 0 mls/hr Documented By: ROWDY Vancomycin HCl 750 mg/ Sodium (Chloride) 265 mls @ 265 mls/hr IV Q12H [facility] Last Infusion: 01/15/23 09:43 Dose: 0 mls/hr Documented By: ROWDY Insulin Glargine (Insulin Glargine,Hum.Rec.Anlog 100 Unit/Ml 10 Ml Vial) 44 unit SUBCUT BEDTIME [facility] Last Admin: 01/14/23 23:11 Dose: 44 unit Documented By: KALLI Insulin Human Lispro (Insulin Lispro 100 Unit/Ml 3 Ml Vial) 0 unit SUBCUT QIDACHS [facility]; Protocol Last Admin: 01/15/23 11:44 Dose: Not Given Documented By: ROWDY Non-Admin Reason: No Insulin Coverage Insulin Human Lispro (Insulin Lispro 100 Unit/Ml 3 Ml Vial) 10 unit SUBCUT TIDAC [facility] Last Admin: 01/15/23 11:51 Dose: 10 unit Documented By: ROWDY Isosorbide Mononitrate (Isosorbide Mononitrate 30 Mg Tab.Er.24h) 30 mg PO DAILY [facility]; Protocol Last Admin: 01/15/23 09:33 Dose: 30 mg Documented By: ROWDY Lisinopril (Lisinopril 40 Mg Tablet) 40 mg PO DAILY [facility]; Protocol Last Admin: 01/15/23 09:33 Dose: 40 mg Documented By: ROWDY Morphine Sulfate (Morphine Sulfate 4 Mg/Ml Cartridge) 4 mg IVPUSH Q4H PRN; Protocol PRN Reason: Pain, Severe (Pain Scale 7-10) Last Admin: 01/15/23 13:41 Dose: 4 mg Documented By: ROWDY Multivitamins/Vitamin C (Multivitamin Tablet) 1 tab PO DAILY [facility] Last Admin: 01/15/23 09:33 Dose: 1 tab Documented By: ROWDY Omeprazole (Omeprazole 20 Mg Capsule.Dr) 20 mg PO DAILY@0630 [facility] Last Admin: 01/15/23 04:56 Dose: 20 mg Documented By: ADILIA Ondansetron HCl (Ondansetron Hcl 4 Mg/2 Ml Vial) 4 mg IVPUSH Q8H PRN PRN Reason: Nausea and Vomiting Pharmacy Consult (Consult Rx Vancomycin Dosing) 1 each MISCELLANE DAILY PRN PRN Reason: Consult order Sodium Chloride (0.9 % Sodium Chloride Flush 3 Ml Syringe) 3 ml IVFLUSH QSHIFT [facility] Last Admin: 01/15/23 08:03 Dose: 3 ml Documented By: ROWDY Tiotropium Shock (Tiotropium Shock 2.5 Mcg Inhaler) 2 puff INHALE RDAILY [facility] Last Admin: 01/15/23 09:10 Dose: Not Given Documented By: DANO Non-Admin Reason: Med Not Available Labs 01/14/23 18:51 01/14/23 18:51 Labs: Laboratory Results - last 24 hr 01/14/23 01/14/23 01/14/23 18:50 18:51 18:51 MCV 87.2 MCH 28.5 MCHC 32.7 RDW 14.5 Plt Count 369 D MPV 9.7 Immature Gran % (Auto) 0.4 Neut % (Auto) 70.5 Lymph % (Auto) 17.7 L [place] % (Auto) 8.0 Eos % (Auto) 2.8 Baso % (Auto) 0.6 Lymph # (Auto) 2.5 [place] # (Auto) 1.1 Eos # (Auto) 0.4 Baso # (Auto) 0.1 Abs Immat Gran (auto) 0.05 H Absolute Neuts (auto) 9.8 H Absolute Nucleated RBC 0.000 Nucleated RBC % (auto) 0.0 ESR Anion Gap 13 Estim Creat Clear Calc 83.1 Estimated GFR > 60 POC Glucose Random Glucose 110 Lactic Acid Calcium 10.2 D Total Bilirubin 0.5 Direct Bilirubin 0.2 AST 19 ALT 22 Alkaline Phosphatase 79 C-Reactive Protein 1.90 H Total Protein 8.1 H Albumin 3.9 Lipase 17 Urine Color Yellow Urine Appearance Clear Urine pH 6.5 Ur Specific [place] >= 1.030 H Urine Protein Negative Urine Glucose (UA) >=1000 H Urine Ketones Negative Urine Blood Negative Urine Nitrite Negative Ur Leukocyte Esterase Negative Urine RBC 3-5 H Urine WBC 0-5 Ur Squamous Epith Cells 0-2 Urine Bacteria None Seen Hyaline Casts 0-2 01/14/23 01/14/23 01/15/23 18:51 18:51 07:40 MCV MCH MCHC RDW Plt Count MPV Immature Gran % (Auto) Neut % (Auto) Lymph % (Auto) [place] % (Auto) Eos % (Auto) Baso % (Auto) Lymph # (Auto) [place] # (Auto) Eos # (Auto) Baso # (Auto) Abs Immat Gran (auto) Absolute Neuts (auto) Absolute Nucleated RBC Nucleated RBC % (auto) ESR 38 H Anion Gap Estim Creat Clear Calc Estimated GFR POC Glucose 133 H Random Glucose Lactic Acid 1.5 Calcium Total Bilirubin Direct Bilirubin AST ALT Alkaline Phosphatase C-Reactive Protein Total Protein Albumin Lipase Urine Color Urine Appearance Urine pH Ur Specific [place] Urine Protein Urine Glucose (UA) Urine Ketones Urine Blood Urine Nitrite Ur Leukocyte Esterase Urine RBC Urine WBC Ur Squamous Epith Cells Urine Bacteria Hyaline Casts 01/15/23 11:03 MCV MCH MCHC RDW Plt Count MPV Immature Gran % (Auto) Neut % (Auto) Lymph % (Auto) [place] % (Auto) Eos % (Auto) Baso % (Auto) Lymph # (Auto) [place] # (Auto) Eos # (Auto) Baso # (Auto) Abs Immat Gran (auto) Absolute Neuts (auto) Absolute Nucleated RBC Nucleated RBC % (auto) ESR Anion Gap Estim Creat Clear Calc Estimated GFR POC Glucose 108 Random Glucose Lactic Acid Calcium Total Bilirubin Direct Bilirubin AST ALT Alkaline Phosphatase C-Reactive Protein Total Protein Albumin Lipase Urine Color Urine Appearance Urine pH Ur Specific [place] Urine Protein Urine Glucose (UA) Urine Ketones Urine Blood Urine Nitrite Ur Leukocyte Esterase Urine RBC Urine WBC Ur Squamous Epith Cells Urine Bacteria Hyaline Casts Assessment and Plan (1) Infection of amputation site of lower extremity: Status: Acute Plan patient with history of peripheral vascular disease status post right below-knee amputation on December 21 comes in with amputation site infection #?right BKA amputation site infection -? dressing change by vascular surgery this morning noted to have persistent drainage, ESR 38 and CRP 1.9 -? failed outpatient p.o. antibiotics -? continue IV vancomycin and Zosyn day 2 started on 01/14 - blood cultures pending, follow CBC and electrolytes -? case discussed with Dr. Dia he agrees with above treatment with IV antibiotics he will reassess patient in few days to see if patient needs open debridement in OR. #? diabetes mellitus on insulin -? stable blood sugars, hold oral antihyperglycemics, continue home insulin and insulin sliding scale #? history of cardiomyopathy -? no evidence of exacerbation or fluid overload, continue Lasix, Coreg #? history of CAD -? continue carvedilol/aspirin/statin and isosorbide ?DVT prophylaxis: Lovenox ?Given patient's need for IV antibiotics as he failed p.o. antibiotics for amputation site infection patient will need continued inpatient hospitalization . Time Spent With Patient Time: Total time managing care of this patient today ____ minutes. Quality Stroke Does the patient have a stroke diagnosis?: No VTE Prior VTE?: No VTE Risk Level:: Surgical - very high VTE Device Contraindication: N/A - Device Ordered VTE Drug Contraindication: Treatment Not Indicated
--- NOTE | 2023-01-15 15:00 | MHC.CM.PN ---
Grenadian speaking male s/p BARBIE. He was BIBA from [facility]. He was @ [facility] for STR as well as wound care and assessment. Patient Lives by himself in senior housing. His son Rommel is his HCP and DATA WAREHOUSING ENGINEER. DP return to [facility] via BLS. HCP is on file. An dentures lab technician was required to obtain the information.
[2023-01-15 15:35] VITALS: BP 114/54; PULSE 60; RESP 17; TEMP 36.1; O2SAT 95
[2023-01-15 15:59] LABS: Glucose, Whole Blood 106 mg/dL (60-115)
[2023-01-15 19:39] VITALS: BP 131/61; PULSE 65; RESP 16; TEMP 36.2; O2SAT 96
[2023-01-15 20:27] LABS: Glucose, Whole Blood 147 mg/dL (60-115)
[2023-01-15] MEDS: Insulin Glargine,Hum.rec.anlog 100 UNIT/ML 10 ML VIAL 44 UNIT SUBCUT (21:01)
[2023-01-15] MEDS: Atorvastatin Calcium 80 MG TABLET PO (21:02)
[2023-01-15] MEDS: Enoxaparin Sodium 40 MG/0.4 ML SYRINGE SUBCUT (21:02)
[2023-01-16 04:00] VITALS: BP 130/60; PULSE 61; RESP 16; TEMP 36; O2SAT 99
[2023-01-16] MEDS: Omeprazole 20 MG CAPSULE.DR PO (05:55)
[2023-01-16] MEDS: Piperacillin Sodium/Tazobactam 3.375 GM in 0.9 % Sodium Chloride 50 ML IV ×4 (05:55→18:28)
[2023-01-16 06:42] LABS: Creatinine Clr Calc Pharmacy 89.7; Estimated Glomerular Filt Rate > 60
[2023-01-16 06:47] LABS: Vancomycin Trough 9.4 mcg/mL (10.0-20.0)
--- NOTE | 2023-01-16 07:04 | HE.PHANOTE ---
RE PHILIPO TROUGH WAS 9.4, SUBTHERAPUETIC. RENAL FUNCTION IS IMPROVING @ 0.75 TODAY. I AM INCREASING THE DOSE TO 1250MG Q12 WHICH IS OVER 15MG/KG TO GET THE PATIENT THERAPUETIC FASTER. A TROUGH OF 9.4 CORRELATES TO AN AUC <400. NEW PROPOSED DOSE IS 1250MG Q12H, WITH A SUSPECTED AUC OF 553 AND TROUGH OF 16.3 USING THE BAYNESIAN MODEL. WILL GET RANDOM LEVEL AFTER 2 DOSES DUE TO AGRESSIVENESS OF DOSING SUNDAY
[2023-01-16 07:57] LABS: Glucose, Whole Blood 157 mg/dL (60-115)
[2023-01-16 07:58] VITALS: BP 138/64; PULSE 63; RESP 18; TEMP 36; O2SAT 97
[2023-01-16] MEDS: Isosorbide Mononitrate 30 MG TAB.ER.24H PO (08:15)
[2023-01-16] MEDS: Furosemide 40 MG TABLET PO (08:15)
[2023-01-16] MEDS: Insulin Lispro 100 UNIT/ML 3 ML VIAL SUBCUT ×4 (08:15→16:53)
[2023-01-16] MEDS: Aspirin Enteric Coated 81 MG TABLET.DR PO (08:15)
[2023-01-16] MEDS: Multivitamin TABLET 1 TAB PO (08:15)
[2023-01-16] MEDS: Furosemide 20 MG TABLET PO (08:16)
[2023-01-16] MEDS: carvediloL 25 MG TABLET PO ×2 (08:16→21:17)
[2023-01-16] MEDS: lisinopriL 40 MG TABLET PO (08:16)
[2023-01-16] MEDS: vancomycin HCL 1,250 MG in 0.9 % Sodium Chloride 250 ML 166.67 MG IV ×2 (08:16→21:16)
[2023-01-16] MEDS: 0.9 % Sodium Chloride Flush 3 ML SYRINGE IVFLUSH ×3 (08:18→21:18)
[2023-01-16] MEDS: Albuterol/Iprat 2.5/0.5MG 3 ML AMPUL.NEB INHALE (08:38)
[2023-01-16 08:39] VITALS: RESP 16; O2SAT 98
[2023-01-16] MEDS: Morphine Sulfate 4 MG/ML CARTRIDGE IVPUSH ×2 (09:48→18:28)
[2023-01-16 11:05] LABS: Glucose, Whole Blood 146 mg/dL (60-115)
--- NOTE | 2023-01-16 11:31 | HO.PM.IMPN ---
Subjective Subjective Date of Service: 01/16/23 Interval History: Complaining of good pain control right BKA site, blood sugars stable tolerating diet no nausea no vomiting no abdominal pain, denies shortness of breath, no chest pain, no other acute issues overnight. Review of Systems All other system reviewed and negative Physical Exam Vital Signs: Vital Signs: Last Vital Signs Temp 96.8 F 01/16/23 07:58 Pulse 63 01/16/23 07:58 Resp 16 01/16/23 08:39 BP 138/64 01/16/23 07:58 Pulse Ox 97 01/16/23 07:58 O2 Del Method Room Air 01/16/23 07:58 BMI result Body Mass Index 25.8 Const: Other: General awake alert ,?in no acute distress.? anicteric sclera Neck? supple no JVD. CVS? regular rate rhythm, Respiratory lungs clear to auscultation, no respiratory distress, no wheeze, no rhonchi. Gastrointestinal abdomen soft, nontender, bowel sounds audible,? no guarding , no rigidity. Extremities? right? BKA dressing in place, left lower extremity no edema Neuro nonfocal , speech clear. Skin no rash psych appropriate affect Objective Data Active Medications Acetaminophen (Acetaminophen 325 Mg Tablet) 650 mg PO Q6H PRN PRN Reason: Pain, Mild (Pain Scale 1-3) Albuterol Sulfate (Albuterol Sulfate (0.083%) 2.5 Mg/3 Ml Vial.Neb) 2.5 mg INHALE Q4H PRN PRN Reason: Shortness of Breath Albuterol/Ipratropium (Albuterol/Iprat 2.5/0.5mg 3 Ml Ampul.Neb) 3 ml INHALE RDAILY [facility] Last Admin: 01/16/23 08:38 Dose: 3 ml Documented By: EDI Artificial Tears (Artificial Tears 15 Ml Drops) 2 drop EYE-BOTH QID PRN PRN Reason: Dry Eye(S) Aspirin (Aspirin Enteric Coated 81 Mg Tablet.) 81 mg PO DAILY [facility] Last Admin: 01/16/23 08:15 Dose: 81 mg Documented By: MICHAEL Atorvastatin Calcium (Atorvastatin Calcium 80 Mg Tablet) 80 mg PO BEDTIME [facility] Last Admin: 01/15/23 21:02 Dose: 80 mg Documented By: ROSA Carvedilol (Carvedilol 25 Mg Tablet) 25 mg PO BID [facility]; Protocol Last Admin: 01/16/23 08:16 Dose: 25 mg Documented By: MICHAEL Dextrose (Dextrose 50 % 25 Gm/50 Ml Syringe) 25 gm IVPUSH Q15M PRN; Protocol PRN Reason: per Hypoglycemia Standing Ord. Docusate Sodium (Docusate Sodium 100 Mg Capsule) 100 mg PO DAILY PRN PRN Reason: Constipation Enoxaparin Sodium (Enoxaparin Sodium 40 Mg/0.4 Ml Syringe) 40 mg SUBCUT Q24H [facility] Last Admin: 01/15/23 21:02 Dose: 40 mg Documented By: ROSA Furosemide (Furosemide 20 Mg Tablet) 20 mg PO DAILY [facility]; Protocol Last Admin: 01/16/23 08:16 Dose: 20 mg Documented By: MICHAEL Furosemide (Furosemide 40 Mg Tablet) 40 mg PO DAILY [facility]; Protocol Last Admin: 01/16/23 08:15 Dose: 40 mg Documented By: MICHAEL Glucose (Glucose Gel 15 Gm Gel..Gram.) 15 gm PO Q15M PRN; Protocol PRN Reason: per Hypoglycemia Standing Ord. Piperacillin Sod/Tazobactam (Sod 3.375 gm/ Sodium Chloride) 50 mls @ 100 mls/hr IV Q6H [facility] Last Infusion: 01/16/23 06:31 Dose: 0 mls/hr Documented By: ROSA Vancomycin HCl 1,250 mg/ (Sodium Chloride) 250 mls @ 166.667 mls/hr IV Q12H [facility] Last Infusion: 01/16/23 09:54 Dose: 0 mls/hr Documented By: MICHAEL Insulin Glargine (Insulin Glargine,Hum.Rec.Anlog 100 Unit/Ml 10 Ml Vial) 44 unit SUBCUT BEDTIME [facility] Last Admin: 01/15/23 21:01 Dose: 44 unit Documented By: ROSA Insulin Human Lispro (Insulin Lispro 100 Unit/Ml 3 Ml Vial) 0 unit SUBCUT QIDACHS [facility]; Protocol Last Admin: 01/16/23 11:24 Dose: Not Given Documented By: MICHAEL Non-Admin Reason: No Insulin Coverage Insulin Human Lispro (Insulin Lispro 100 Unit/Ml 3 Ml Vial) 5 unit SUBCUT TIDAC [facility] Isosorbide Mononitrate (Isosorbide Mononitrate 30 Mg Tab.Er.24h) 30 mg PO DAILY [facility]; Protocol Last Admin: 01/16/23 08:15 Dose: 30 mg Documented By: MICHAEL Lisinopril (Lisinopril 40 Mg Tablet) 40 mg PO DAILY [facility]; Protocol Last Admin: 01/16/23 08:16 Dose: 40 mg Documented By: MICHAEL Morphine Sulfate (Morphine Sulfate 4 Mg/Ml Cartridge) 4 mg IVPUSH Q4H PRN; Protocol PRN Reason: Pain, Severe (Pain Scale 7-10) Last Admin: 01/16/23 09:48 Dose: 4 mg Documented By: MICHAEL Multivitamins/Vitamin C (Multivitamin Tablet) 1 tab PO DAILY [facility] Last Admin: 01/16/23 08:15 Dose: 1 tab Documented By: MICHAEL Omeprazole (Omeprazole 20 Mg Capsule.Dr) 20 mg PO DAILY@0630 [facility] Last Admin: 01/16/23 05:55 Dose: 20 mg Documented By: ROSA Ondansetron HCl (Ondansetron Hcl 4 Mg/2 Ml Vial) 4 mg IVPUSH Q8H PRN PRN Reason: Nausea and Vomiting Pharmacy Consult (Consult Rx Vancomycin Dosing) 1 each MISCELLANE DAILY PRN PRN Reason: Consult order Sodium Chloride (0.9 % Sodium Chloride Flush 3 Ml Syringe) 3 ml IVFLUSH QSHIFT [facility] Last Admin: 01/16/23 08:18 Dose: 3 ml Documented By: MICHAEL Tiotropium [place] (Tiotropium [place] 2.5 Mcg Inhaler) 2 puff INHALE RDAILY [facility] Last Admin: 01/16/23 08:38 Dose: 2 puff Documented By: ARNOLDASKYen Labs 01/14/23 18:51 01/16/23 05:53 Labs: Laboratory Results - last 24 hr 01/15/23 01/15/23 01/15/23 11:03 15:53 20:19 Estim Creat Clear Calc Estimated GFR POC Glucose 108 106 147 H Vancomycin Trough 01/16/23 01/16/23 01/16/23 05:53 05:53 07:53 Estim Creat Clear Calc 89.7 Estimated GFR > 60 POC Glucose 157 H Vancomycin Trough 9.4 L 01/16/23 10:59 Estim Creat Clear Calc Estimated GFR POC Glucose 146 H Vancomycin Trough Microbiology Microbiology Results: Microbiology 01/14/23 18:50 Blood Culture - Preliminary Blood - Venous Staphylococcus aureus 01/14/23 18:51 Blood Culture - Preliminary Blood - Venous No growth after 24 hours. Assessment and Plan (1) Infection of amputation site of lower extremity: Status: Acute Plan patient with history of peripheral vascular disease status post right below-knee amputation on December 21 comes in with amputation site infection #?right BKA amputation site infection -? dressing change as per vascular surgery,ESR 38 and CRP 1.9 -? failed outpatient p.o. antibiotics -? continue IV vancomycin and Zosyn day 3 started on 01/14 - blood cultures 1/2 positive for Staph aureus follow final blood culture report , WBC trending down. -? being followed by Dr. Dia he agrees with above treatment with IV antibiotics he will reassess patient in few days to see if patient needs open debridement in [place]. #? diabetes mellitus on insulin -? stable blood sugars, hold oral antihyperglycemics, continue home insulin and insulin sliding scale #? history of cardiomyopathy -? no evidence of exacerbation or fluid overload, continue Lasix, Coreg #? history of CAD -? continue carvedilol/aspirin/statin and isosorbide ?DVT prophylaxis: Lovenox ?Given patient's need for IV antibiotics as he failed p.o. antibiotics for amputation site infection patient will need continued inpatient hospitalization . Time Spent With Patient Time: Total time managing care of this patient today ____ minutes. Quality Stroke Does the patient have a stroke diagnosis?: No VTE Prior VTE?: No VTE Risk Level:: Surgical - very high VTE Device Contraindication: N/A - Device Ordered VTE Drug Contraindication: Treatment Not Indicated
[2023-01-16 15:21] VITALS: BP 121/58; PULSE 64; RESP 20; TEMP 36.1; O2SAT 97
[2023-01-16 16:12] LABS: Glucose, Whole Blood 171 mg/dL (60-115)
[2023-01-16 20:00] VITALS: BP 132/61; PULSE 64; RESP 16; TEMP 36.3; O2SAT 98
[2023-01-16 20:44] LABS: Glucose, Whole Blood 120 mg/dL (60-115)
[2023-01-16] MEDS: Atorvastatin Calcium 80 MG TABLET PO (21:17)
[2023-01-16] MEDS: Enoxaparin Sodium 40 MG/0.4 ML SYRINGE SUBCUT (21:17)
[2023-01-16] MEDS: Insulin Glargine,Hum.rec.anlog 100 UNIT/ML 10 ML VIAL 44 UNIT SUBCUT (21:17)
[2023-01-17] MEDS: Piperacillin Sodium/Tazobactam 3.375 GM in 0.9 % Sodium Chloride 50 ML IV ×3 (00:18→12:40)
[2023-01-17] MEDS: Morphine Sulfate 4 MG/ML CARTRIDGE IVPUSH ×4 (00:18→21:34)
[2023-01-17] MEDS: 0.9 % Sodium Chloride Flush 3 ML SYRINGE IVFLUSH ×4 (00:19→21:35)
[2023-01-17 04:00] VITALS: BP 134/61; PULSE 60; RESP 16; TEMP 36.1; O2SAT 98
[2023-01-17] MEDS: Omeprazole 20 MG CAPSULE.DR PO (05:46)
[2023-01-17 07:10] LABS: Glucose, Whole Blood 111 mg/dL (60-115)
[2023-01-17 07:13] VITALS: BP 125/55; PULSE 57; RESP 18; TEMP 37.1; O2SAT 99
[2023-01-17] MEDS: Albuterol/Iprat 2.5/0.5MG 3 ML AMPUL.NEB INHALE (08:17)
[2023-01-17] MEDS: Furosemide 40 MG TABLET PO (08:41)
[2023-01-17] MEDS: lisinopriL 40 MG TABLET PO (08:41)
[2023-01-17] MEDS: Aspirin Enteric Coated 81 MG TABLET.DR PO (08:41)
[2023-01-17] MEDS: Furosemide 20 MG TABLET PO (08:41)
[2023-01-17] MEDS: carvediloL 25 MG TABLET PO ×2 (08:41→21:35)
[2023-01-17] MEDS: Isosorbide Mononitrate 30 MG TAB.ER.24H PO (08:41)
[2023-01-17] MEDS: Multivitamin TABLET 1 TAB PO (08:41)
[2023-01-17 08:44] LABS: Vancomycin Random 14.1 mcg/mL (15-20)
[2023-01-17 08:47] LABS: Creatinine Clr Calc Pharmacy 84.1; Estimated Glomerular Filt Rate > 60
[2023-01-17] MEDS: vancomycin HCL 1,250 MG in 0.9 % Sodium Chloride 250 ML 166.67 MG IV ×2 (09:17→21:34)
[2023-01-17 11:20] LABS: Glucose, Whole Blood 156 mg/dL (60-115)
[2023-01-17] MEDS: Insulin Lispro 100 UNIT/ML 3 ML VIAL SUBCUT ×4 (11:52→16:34)
--- NOTE | 2023-01-17 14:21 | HO.SKINPHOTO ---
Addendum entered by Yesica Hook RN 01/17/23 14:32: Right Stump Original Note: Location: Category: Stage: Length: Width: Depth: cm Location: Category: Stage: Length: Width: Depth: cm Location: Category: Stage: Length: Width: Depth: cm Location: Category: Stage: Length: Width: Depth: cm Location: Category: Stage: Length: Width: Depth: cm Location: Category: Stage: Length: Width: Depth: cm
--- NOTE | 2023-01-17 14:25 | PC.NURSE ---
MD Mckeon notified via tiger text of moderate amount of purulent drainage from patient's right stump wound, increased from yesterday. Wound cleansed with wound wash, silver alginate applied, abd pad, wrapped with gauze kerlix, See Skin/photo note for picture.
--- NOTE | 2023-01-17 14:45 | HO.PM.IMPN ---
Subjective Subjective Date of Service: 01/17/23 Interval History: Being followed for non healing right BKA wound, offers no acute complaints, no fevers no chills, tolerating diet with no nausea, no vomiting, no abdominal pain. As per nurse patient noted to have moderate amount of purulent drainage from the wound Review of Systems All other systems reviewed and negative Physical Exam Vital Signs: Vital Signs: Last Vital Signs Temp 98.7 F 01/17/23 07:13 Pulse 57 01/17/23 07:13 Resp 18 01/17/23 07:13 BP 125/55 L 01/17/23 07:13 Pulse Ox 99 01/17/23 07:13 O2 Del Method Room Air 01/17/23 07:13 BMI result Body Mass Index 25.8 Const: Other: General awake alert ,?in no acute distress.? anicteric sclera Neck? supple no JVD. CVS? regular rate rhythm, Respiratory lungs clear to auscultation, no respiratory distress, no wheeze, no rhonchi. Gastrointestinal abdomen soft, nontender, bowel sounds audible,? no guarding , no rigidity. Extremities? right? BKA dressing in place, left lower extremity no edema Neuro nonfocal , speech clear. Skin no rash psych appropriate affect Objective Data Active Medications Acetaminophen (Acetaminophen 325 Mg Tablet) 650 mg PO Q6H PRN PRN Reason: Pain, Mild (Pain Scale 1-3) Albuterol Sulfate (Albuterol Sulfate (0.083%) 2.5 Mg/3 Ml Vial.Neb) 2.5 mg INHALE Q4H PRN PRN Reason: Shortness of Breath Albuterol/Ipratropium (Albuterol/Iprat 2.5/0.5mg 3 Ml Ampul.Neb) 3 ml INHALE RDAILY [facility] Last Admin: 01/17/23 08:17 Dose: 3 ml Documented By: WING Artificial Tears (Artificial Tears 15 Ml Drops) 2 drop EYE-BOTH QID PRN PRN Reason: Dry Eye(S) Aspirin (Aspirin Enteric Coated 81 Mg Tablet.) 81 mg PO DAILY [facility] Last Admin: 01/17/23 08:41 Dose: 81 mg Documented By: MICHAEL Atorvastatin Calcium (Atorvastatin Calcium 80 Mg Tablet) 80 mg PO BEDTIME [facility] Last Admin: 01/16/23 21:17 Dose: 80 mg Documented By: ROSA Carvedilol (Carvedilol 25 Mg Tablet) 25 mg PO BID [facility]; Protocol Last Admin: 01/17/23 08:41 Dose: 25 mg Documented By: MICHAEL Dextrose (Dextrose 50 % 25 Gm/50 Ml Syringe) 25 gm IVPUSH Q15M PRN; Protocol PRN Reason: per Hypoglycemia Standing Ord. Docusate Sodium (Docusate Sodium 100 Mg Capsule) 100 mg PO DAILY PRN PRN Reason: Constipation Enoxaparin Sodium (Enoxaparin Sodium 40 Mg/0.4 Ml Syringe) 40 mg SUBCUT Q24H [facility] Last Admin: 01/16/23 21:17 Dose: 40 mg Documented By: ROSA Furosemide (Furosemide 20 Mg Tablet) 20 mg PO DAILY [facility]; Protocol Last Admin: 01/17/23 08:41 Dose: 20 mg Documented By: MICHAEL Furosemide (Furosemide 40 Mg Tablet) 40 mg PO DAILY [facility]; Protocol Last Admin: 01/17/23 08:41 Dose: 40 mg Documented By: MICHAEL Glucose (Glucose Gel 15 Gm Gel..Gram.) 15 gm PO Q15M PRN; Protocol PRN Reason: per Hypoglycemia Standing Ord. Piperacillin Sod/Tazobactam (Sod 3.375 gm/ Sodium Chloride) 50 mls @ 100 mls/hr IV Q6H [facility] Last Infusion: 01/17/23 13:12 Dose: 0 mls/hr Documented By: MICHAEL Vancomycin HCl 1,250 mg/ (Sodium Chloride) 250 mls @ 166.667 mls/hr IV Q12H [facility] Last Infusion: 01/17/23 11:01 Dose: 0 mls/hr Documented By: MICHAEL Insulin Glargine (Insulin Glargine,Hum.Rec.Anlog 100 Unit/Ml 10 Ml Vial) 44 unit SUBCUT BEDTIME [facility] Last Admin: 01/16/23 21:17 Dose: 44 unit Documented By: ROSA Insulin Human Lispro (Insulin Lispro 100 Unit/Ml 3 Ml Vial) 0 unit SUBCUT QIDACHS [facility]; Protocol Last Admin: 01/17/23 11:52 Dose: 2 unit Documented By: MICHAEL Insulin Human Lispro (Insulin Lispro 100 Unit/Ml 3 Ml Vial) 5 unit SUBCUT TIDAC [facility] Last Admin: 01/17/23 11:52 Dose: 5 unit Documented By: MICHAEL Isosorbide Mononitrate (Isosorbide Mononitrate 30 Mg Tab.Er.24h) 30 mg PO DAILY [facility]; Protocol Last Admin: 01/17/23 08:41 Dose: 30 mg Documented By: MICHAEL Lisinopril (Lisinopril 40 Mg Tablet) 40 mg PO DAILY [facility]; Protocol Last Admin: 01/17/23 08:41 Dose: 40 mg Documented By: MICHAEL Morphine Sulfate (Morphine Sulfate 4 Mg/Ml Cartridge) 4 mg IVPUSH Q4H PRN; Protocol PRN Reason: Pain, Severe (Pain Scale 7-10) Last Admin: 01/17/23 12:46 Dose: 4 mg Documented By: MICHAEL Multivitamins/Vitamin C (Multivitamin Tablet) 1 tab PO DAILY [facility] Last Admin: 01/17/23 08:41 Dose: 1 tab Documented By: MICHAEL Omeprazole (Omeprazole 20 Mg Capsule.Dr) 20 mg PO DAILY@0630 [facility] Last Admin: 01/17/23 05:46 Dose: 20 mg Documented By: ROSA Ondansetron HCl (Ondansetron Hcl 4 Mg/2 Ml Vial) 4 mg IVPUSH Q8H PRN PRN Reason: Nausea and Vomiting Pharmacy Consult (Consult Rx Vancomycin Dosing) 1 each MISCELLANE DAILY PRN PRN Reason: Consult order Sodium Chloride (0.9 % Sodium Chloride Flush 3 Ml Syringe) 3 ml IVFLUSH QSHIFT [facility] Last Admin: 01/17/23 08:42 Dose: 3 ml Documented By: MICHAEL Tiotropium [place] (Tiotropium [place] 2.5 Mcg Inhaler) 2 puff INHALE RDAILY [facility] Last Admin: 01/17/23 08:18 Dose: 2 puff Documented By: WING Labs 01/14/23 18:51 01/17/23 08:13 Labs: Laboratory Results - last 24 hr 01/16/23 01/16/23 01/17/23 15:54 20:39 07:07 Estim Creat Clear Calc Estimated GFR POC Glucose 171 H 120 H 111 Random Vancomycin 01/17/23 01/17/23 01/17/23 08:13 08:13 11:14 Estim Creat Clear Calc 84.1 Estimated GFR > 60 POC Glucose 156 H Random Vancomycin 14.1 L Microbiology Microbiology Results: Microbiology 01/14/23 18:50 Blood Culture - Final Blood - Venous Methicillin Res Staph Aureus 01/14/23 18:51 Blood Culture - Preliminary Blood - Venous No growth after 48 hours. Assessment and Plan (1) Infection of amputation site of lower extremity: Status: Acute Plan patient with history of peripheral vascular disease status post right below-knee amputation on December 21 comes in with amputation site infection #?right BKA amputation site infection -? dressing change as per vascular surgery, noted to have worsening purulent drainage today, ESR 38 and CRP 1.9, x-ray left knee showed no evidence of osteomyelitis -? failed outpatient p.o. antibiotics -? continue IV vancomycin and dc Zosyn day 4 started on 01/14 - continue oxycodone and IV morphine for pain control - blood cultures 1/2 positive for MRSA , WBC trending down. -? being followed by Dr. Dia he agrees with above treatment with IV antibiotics he will reassess patient at am to see if patient needs open debridement in OR. #? diabetes mellitus on insulin -? stable blood sugars, hold oral antihyperglycemics, continue home insulin and insulin sliding scale #? history of cardiomyopathy -? no evidence of exacerbation or fluid overload, continue Lasix, Coreg #? history of CAD -? continue carvedilol/aspirin/statin and isosorbide ?DVT prophylaxis: Lovenox ?Given patient's need for IV antibiotics as he failed p.o. antibiotics for amputation site infection patient will need continued inpatient hospitalization . Time Spent With Patient Time: Total time managing care of this patient today ____ minutes. Quality Stroke Does the patient have a stroke diagnosis?: No VTE Prior VTE?: No VTE Risk Level:: Surgical - very high VTE Device Contraindication: N/A - Device Ordered VTE Drug Contraindication: Treatment Not Indicated
[2023-01-17 14:54] VITALS: BP 137/59; PULSE 67; RESP 18; TEMP 36.9; O2SAT 97
[2023-01-17 16:09] LABS: Glucose, Whole Blood 161 mg/dL (60-115)
[2023-01-17 20:16] VITALS: BP 142/63; PULSE 62; RESP 18; TEMP 36.6; O2SAT 98
[2023-01-17 20:46] LABS: Glucose, Whole Blood 95 mg/dL (60-115)
--- NOTE | 2023-01-17 20:47 | MHC.PIE ---
p; crashing sound came from room 376. pt found by foot of recliner on floor leaning on chair. 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 note; pt denies hitting head and denies any pain other than his rt bka site. b/p 142/63, p 62, rr 18, t 97.8 o2 98 on ra. i; dr echeverria notified, nursing sup notified. pt re educated on camera and bed/chair alarm e; will cont to monitor
[2023-01-17] MEDS: Insulin Glargine,Hum.rec.anlog 100 UNIT/ML 10 ML VIAL 44 UNIT SUBCUT (21:34)
[2023-01-17] MEDS: Enoxaparin Sodium 40 MG/0.4 ML SYRINGE SUBCUT (21:35)
[2023-01-17] MEDS: Atorvastatin Calcium 80 MG TABLET PO (21:35)
[2023-01-18 02:28] VITALS: BP 142/63; PULSE 62; RESP 18; TEMP 36.6; O2SAT 98
[2023-01-18] MEDS: Morphine Sulfate 4 MG/ML CARTRIDGE IVPUSH ×3 (04:01→20:25)
[2023-01-18] MEDS: Omeprazole 20 MG CAPSULE.DR PO (05:34)
--- NOTE | 2023-01-18 07:00 | CA_ITS ---
Transthoracic Echocardiogram Patient (Last, First, Middle): Reji Trejo A Gender: Male Date of : 1960 Age: 62 Procedure Date: 01/18/2023 Procedure Type: Transthoracic Echocardiogram Location: S3E Height: 167.64 cm Weight: 72.58 kg BSA: 1.82 m2 Heart Rate: bpm BP: 133 / 61 mmHg Billboard Mechanic: GENNY Referring MD: Columba Lou MD Symptoms: mrsa bacteremia Study Quality: Fair Conclusions: - Moderately increased left ventricular cavity size. There is mildly increased left ventricular wall thickness. The left ventricular systolic function is severely decreased. The visually estimated ejection fraction is between 20-25%. - E/E prime ratio is >15, consistent with elevated filling pressures. - Mildly increased right ventricular cavity size. There is low normal right ventricular systolic function. - There is mild thickening of the aortic valve. - Broken chordae noted in some views. No obvious vegetation noted. - No definitive evidence of vegetation on the TTE. Findings Left Ventricle Moderately increased left ventricular cavity size. There is mildly increased left ventricular wall thickness. The left ventricular systolic function is severely decreased. The visually estimated ejection fraction is between 20 25%. Abnormal diastolic function is noted. Spectral Doppler is indicative of an impaired relaxation filling pattern. E/E prime ratio is >15, consistent with elevated filling pressures. Right Ventricle Mildly increased right ventricular cavity size. There is low normal right ventricular systolic function. Atria The left atrium is mildly dilated. The right atrium is moderately dilated. Aortic Valve There is mild thickening of the aortic valve. There is no aortic valve stenosis. There is no aortic valve regurgitation. Mitral Valve There is mild anterior mitral leaflet thickening. There is trace mitral valve regurgitation. There is no mitral valve stenosis. Broken chordae noted in some views. No obvious vegetation noted. Pulmonic Valve The pulmonic valve is likely normal. There is trace pulmonic valve regurgitation. Tricuspid Valve Normal tricuspid valve structure. There is mild tricuspid valve regurgitation. The right ventricular systolic pressure is 42 mmHg. Normal right atrial pressure. Mild pulmonary hypertension is present. Great Vessels There is mild dilatation of the ascending aorta measuring 3.40 cm. Venous The inferior vena cava is normal in size and collapses greater than 50% with inspiration. Pericardium/Pleural There is no evidence of pericardial effusion. Prior Study Comparison No significant change compared to prior study dated: 08/31/2022. Recommendations, Care & Conclusions Consider a MIRANDA if clinically appropriate. Measurements 2D Linear Measurements IVSd: 1.27 0.6-0.9/0.6-1.0 cm LVIDd: 6.67 3.9-5.3/4.2-5.9 cm LVIDd Index: 3.66 2.4-3.2/2.2-3.1 cm/m2 LVIDs: 5.74 2.0-3.6 cm LVPWd: 1.29 0.7-1.1 cm LA Diam: 3.50 2.7-3.8/3.0-4.0 cm LAIDs Index: 1.92 1.5-2.3 cm/m2 LV Mass: 509.17 67-162/88-224 g LV Mass Index: 279.77 43-95/49-115 g/m2 LVOT Diam: 2.00 3.0+(-)1.3 cm 2D Systolic Function EF 4C: 23.70 >55% EF 2C: 26.90 >55% EF BiP: 26.50 >55% Mitral Valve MV Pk E: 0.84 MV PK A: 0.90 MV Decel Time: 166.00 E/A: 0.90 E'Lateral: 4.46 E'Medial: 4.46 E/E' Med: 18.80 E/E' Lat: 18.80 PHT: 49.00 MVA PHT: 4.49 Decel Juab: 5.05 Aortic Valve AoV Pk Karan: 1.57 AoV Mn Karan: 0.96 AoV VTI: 0.34 AoV Pk Grad: 10.00 Aov Mn Grad: 4.00 NANY Cont.VTI: 1.84 LVOT LVOT Pk Karan: 0.91 LVOT Mn Karan: 0.63 LVOT VTI: 0.20 LVOT Pk Grad: 3.00 LVOT Mn Grad: 2.00 LVOT Diam: 2.00 LVOT Area: 3.14 Diastolic Function MV Pk E: 0.84 MV Pk A: 0.90 E/A: 0.90 E'Medial: 4.46 E/E' Med: 18.80 E' Laterial: 4.46 E/E' Lat: 18.80 Right Ventricle TAPSE (mm): 25.30 TVS' Karan: 10.30 Tricuspid Valve TR Pk Karan: 3.12 TR Pk Grad: 39.00 RA Press: 3.00 RVSP: 42.00 Great Vessels Aorta Sinus of Valsalva: 2.93 2.0-3.[address] Ridge: 2.20 1.7-3.4 cm Ao Asc: 3.40 2.1-3.4 cm Updated in Other Vendor System with Status of Final Alex Gracia MD electronically signed on 01/18/2023 3:11:12 PM with status of Final
[2023-01-18 07:17] LABS: Glucose, Whole Blood 157 mg/dL (60-115)
[2023-01-18 07:48] VITALS: BP 133/61; PULSE 62; RESP 18; TEMP 36.1; O2SAT 96
[2023-01-18] MEDS: lisinopriL 40 MG TABLET PO (08:21)
[2023-01-18] MEDS: Isosorbide Mononitrate 30 MG TAB.ER.24H PO (08:22)
[2023-01-18] MEDS: Furosemide 20 MG TABLET PO (08:22)
[2023-01-18] MEDS: Insulin Lispro 100 UNIT/ML 3 ML VIAL SUBCUT ×6 (08:22→21:42)
[2023-01-18] MEDS: Aspirin Enteric Coated 81 MG TABLET.DR PO (08:22)
[2023-01-18] MEDS: Multivitamin TABLET 1 TAB PO (08:22)
[2023-01-18] MEDS: Furosemide 40 MG TABLET PO (08:22)
[2023-01-18] MEDS: carvediloL 25 MG TABLET PO ×2 (08:22→21:41)
[2023-01-18] MEDS: 0.9 % Sodium Chloride Flush 3 ML SYRINGE IVFLUSH ×3 (08:22→21:45)
[2023-01-18] MEDS: vancomycin HCL 1,250 MG in 0.9 % Sodium Chloride 250 ML 166.67 MG IV (08:36)
[2023-01-18] MEDS: Albuterol/Iprat 2.5/0.5MG 3 ML AMPUL.NEB INHALE (08:37)
[2023-01-18 08:40] VITALS: PULSE 64; RESP 18; O2SAT 96
[2023-01-18 09:05] LABS: Hematocrit 43.4 % (42.0-52.0); Hemoglobin 13.8 g/dl (14.0-18.0); Mean Corpuscular HGB Conc 31.8 g/dl (31.0-36.0); Mean Corpuscular Hemoglobin 27.9 pg (27.0-33.0); Mean Corpuscular Volume 87.9 fL (80.0-98.0); Mean Platelet Volume 9.9 fL (9.4-12.4); Platelet Count 321 X10*3/uL (160-400); Red Blood Count 4.94 X10*6/uL (4.60-5.80); Red Cell Distribution Width 14.6 % (11.0-16.0); White Blood Count 10.1 X10*3/uL (4.8-10.8)
[2023-01-18 09:42] LABS: Anion Gap 15 (12-20); Blood Urea Nitrogen 14 mg/dL (9-16); Calcium 10.1 mg/dL (8.4-10.2); Carbon Dioxide 25 mmol/L (22-29); Chloride 103 mmol/L (96-108); Creatinine Clr Calc Pharmacy 87.4; Estimated Glomerular Filt Rate > 60; Glucose Random 148 mg/dL (60-115); Potassium 4.3 mmol/L (3.3-5.1); Sodium 139 mmol/L (135-145)
--- NOTE | 2023-01-18 12:13 | P.PNIM_ITS ---
Subjective Subjective Date of Service: 01/18/23 Interval History: This history was taken in [place]onian from the patient. no fever/chills pain under control BKA stump draining purulent material Review of Systems Review of Systems: Yes all other systems are reviewed and are negative Physical Exam Vital Signs: Vital Signs: Last Vital Signs Temp 97.0 F 01/18/23 07:48 Pulse 64 01/18/23 08:40 Resp 18 01/18/23 08:40 BP 133/61 01/18/23 07:48 Pulse Ox 96 01/18/23 07:48 O2 Del Method Room Air 01/18/23 07:48 BMI result Body Mass Index 25.8 Gen: in no acute distress HEENT: sclera anicteric, moist mucus membranes Neck: supple Lungs: clear to auscultation bilaterally Heart: regular rate and rhythm, no murmurs Abd: soft, non-tender, non-distended Ext: R BKA stump with purulent drainage Skin: warm/well-perfused Neuro: alert and oriented x3, no focal findings Psych: appropriate affect Objective Data Active Medications Acetaminophen (Acetaminophen 325 Mg Tablet) 650 mg PO Q6H PRN PRN Reason: Pain, Mild (Pain Scale 1-3) Albuterol Sulfate (Albuterol Sulfate (0.083%) 2.5 Mg/3 Ml Vial.Neb) 2.5 mg INHALE Q4H PRN PRN Reason: Shortness of Breath Albuterol/Ipratropium (Albuterol/Iprat 2.5/0.5mg 3 Ml Ampul.Neb) 3 ml INHALE RDAILY [facility] Last Admin: 01/18/23 08:37 Dose: 3 ml Documented By: KIM Artificial Tears (Artificial Tears 15 Ml Drops) 2 drop EYE-BOTH QID PRN PRN Reason: Dry Eye(S) Aspirin (Aspirin Enteric Coated 81 Mg Tablet.) 81 mg PO DAILY [facility] Last Admin: 01/18/23 08:22 Dose: 81 mg Documented By: MICHAEL Atorvastatin Calcium (Atorvastatin Calcium 80 Mg Tablet) 80 mg PO BEDTIME [facility] Last Admin: 01/17/23 21:35 Dose: 80 mg Documented By: ROSA Carvedilol (Carvedilol 25 Mg Tablet) 25 mg PO BID [facility]; Protocol Last Admin: 01/18/23 08:22 Dose: 25 mg Documented By: MICHAEL Dextrose (Dextrose 50 % 25 Gm/50 Ml Syringe) 25 gm IVPUSH Q15M PRN; Protocol PRN Reason: per Hypoglycemia Standing Ord. Docusate Sodium (Docusate Sodium 100 Mg Capsule) 100 mg PO DAILY PRN PRN Reason: Constipation Enoxaparin Sodium (Enoxaparin Sodium 40 Mg/0.4 Ml Syringe) 40 mg SUBCUT Q24H [facility] Last Admin: 01/17/23 21:35 Dose: 40 mg Documented By: ROSA Furosemide (Furosemide 20 Mg Tablet) 20 mg PO DAILY [facility]; Protocol Last Admin: 01/18/23 08:22 Dose: 20 mg Documented By: MICHAEL Furosemide (Furosemide 40 Mg Tablet) 40 mg PO DAILY [facility]; Protocol Last Admin: 01/18/23 08:22 Dose: 40 mg Documented By: MICHAEL Glucose (Glucose Gel 15 Gm Gel..Gram.) 15 gm PO Q15M PRN; Protocol PRN Reason: per Hypoglycemia Standing Ord. Vancomycin HCl 1,250 mg/ (Sodium Chloride) 250 mls @ 166.667 mls/hr IV Q12H [facility] Last Infusion: 01/18/23 10:07 Dose: 0 mls/hr Documented By: MICHAEL Insulin Glargine (Insulin Glargine,Hum.Rec.Anlog 100 Unit/Ml 10 Ml Vial) 44 unit SUBCUT BEDTIME [facility] Last Admin: 01/17/23 21:34 Dose: 44 unit Documented By: ROSA Insulin Human Lispro (Insulin Lispro 100 Unit/Ml 3 Ml Vial) 0 unit SUBCUT QIDACHS [facility]; Protocol Last Admin: 01/18/23 08:22 Dose: 2 unit Documented By: MICHAEL Insulin Human Lispro (Insulin Lispro 100 Unit/Ml 3 Ml Vial) 5 unit SUBCUT TIDAC [facility] Last Admin: 01/18/23 08:23 Dose: 5 unit Documented By: MICHAEL Isosorbide Mononitrate (Isosorbide Mononitrate 30 Mg Tab.Er.24h) 30 mg PO DAILY [facility]; Protocol Last Admin: 01/18/23 08:22 Dose: 30 mg Documented By: MICHAEL Lisinopril (Lisinopril 40 Mg Tablet) 40 mg PO DAILY [facility]; Protocol Last Admin: 01/18/23 08:21 Dose: 40 mg Documented By: MICHAEL Morphine Sulfate (Morphine Sulfate 4 Mg/Ml Cartridge) 4 mg IVPUSH Q4H PRN; Protocol PRN Reason: Pain, Severe (Pain Scale 7-10) Last Admin: 01/18/23 08:33 Dose: 4 mg Documented By: MICHAEL Multivitamins/Vitamin C (Multivitamin Tablet) 1 tab PO DAILY [facility] Last Admin: 01/18/23 08:22 Dose: 1 tab Documented By: MICHAEL Omeprazole (Omeprazole 20 Mg Capsule.Dr) 20 mg PO DAILY@0630 [facility] Last Admin: 01/18/23 05:34 Dose: 20 mg Documented By: ROSA Ondansetron HCl (Ondansetron Hcl 4 Mg/2 Ml Vial) 4 mg IVPUSH Q8H PRN PRN Reason: Nausea and Vomiting Oxycodone HCl (Oxycodone Hcl Immed Release 5 Mg Tablet) 5 mg PO Q6H PRN PRN Reason: Pain, Moderate(Pain Scale 4-6) Pharmacy Consult (Consult Rx Vancomycin Dosing) 1 each MISCELLANE DAILY PRN PRN Reason: Consult order Sodium Chloride (0.9 % Sodium Chloride Flush 3 Ml Syringe) 3 ml IVFLUSH QSHIFT [facility] Last Admin: 01/18/23 08:22 Dose: 3 ml Documented By: MICHAEL Tiotropium [place] (Tiotropium [place] 2.5 Mcg Inhaler) 2 puff INHALE RDAILY [facility] Last Admin: 01/18/23 11:41 Dose: Not Given Documented By: KIM Non-Admin Reason: Med Not Available Labs 01/18/23 08:32 01/18/23 08:32 Labs: Laboratory Results - last 24 hr 01/17/23 01/17/23 01/18/23 15:58 20:42 07:04 MCV MCH MCHC RDW Plt Count MPV Absolute Nucleated RBC Nucleated RBC % (auto) Anion Gap Estim Creat Clear Calc Estimated GFR POC Glucose 161 H 95 157 H Random Glucose Calcium Random Vancomycin 01/18/23 01/18/23 01/18/23 08:32 08:32 08:32 MCV 87.9 MCH 27.9 MCHC 31.8 RDW 14.6 Plt Count 321 MPV 9.9 Absolute Nucleated RBC 0.000 Nucleated RBC % (auto) 0.0 Anion Gap 15 Estim Creat Clear Calc 87.4 Estimated GFR > 60 POC Glucose Random Glucose 148 H Calcium 10.1 Random Vancomycin Cancelled Assessment and Plan (1) Infection of amputation site of lower extremity: Status: Acute Plan d5 62yo M with PAD s/p BKA 12/21/22 admitted for infection of BKA stump, found to have MRSA bacteremia R BKA amputation site infection MRSA bacteremia - continue vancomycin 01/14- - got pip-bahman 01/14-01/17 - surveillance cultures today, TTE today, ID consultation - to OR tomorrow with Dr Dia for debridement PAD CAD - aspirin, statin, carvedilol, Imdur, lisinopril DM2 - basal-bolus insulin VTE ppx - LMWH dispo - TBD In my clinical judgment, the patient requires continued inpatient hospitalization for the following reasons: IV ABX, operative intervention Time Spent With Patient Time: Total time managing care of this patient today ___45_ minutes. Quality Stroke Does the patient have a stroke diagnosis?: No VTE Prior VTE?: No VTE Risk Level:: Surgical - very high VTE Device Contraindication: N/A - Device Ordered VTE Drug Contraindication: Treatment Not Indicated
[2023-01-18 12:19] LABS: Glucose, Whole Blood 203 mg/dL (60-115)
--- NOTE | 2023-01-18 14:16 | HO.VASCPN ---
Subjective Subjective Date of Service: 01/18/23 Patient reports: no new complaints and feels better Interval history: Patient seen and examined. No significant events over the past weekend. In general and pretty good spirits. Pain well controlled. Family at bedside during my visit and dressing change. Physical Exam Vital Signs: Vital Signs: Last Vital Signs Temp 97.0 F 01/18/23 07:48 Pulse 64 01/18/23 08:40 Resp 18 01/18/23 08:40 BP 133/61 01/18/23 07:48 Pulse Ox 96 01/18/23 07:48 O2 Del Method Room Air 01/18/23 07:48 BMI result Body Mass Index 25.8 Const: General: cooperative, healthy appearing and no acute distress Orientation/consciousness: oriented to person, oriented to place and oriented to time HEENT: Head: Yes normal to inspection Neck: Carotids: no bruits Chest: Chest palpation & inspection: normal inspection of the chest Resp: Effort & Inspection: normal respiratory effort and able to speak in complete sentences Auscultation: clear to auscultation bilaterally Cardio: Rate: regular rate Heart sounds: S1 normal heart sound present and S2 normal heart sound present GI: Inspection: Yes normal to inspection Skin: Other: Right BKA stump lateral portion open approximately 7 cm penetrating down. Fibrinous necrotic material. Serous drainage. General skin exam: no rashes or lesions noted Wounds: no wounds Neuro: General: oriented to person, oriented to place, oriented to time and CN's II-XI intact bilaterally Extrem: General: Yes normal to inspection, Yes full ROM and Yes no clubbing, cyanosis or edema Psych: Appearance: grossly normal and well kempt Speech and movement: Normal speech and movement present Affect: normal affect Progress Note: A&P Assessment and plan (1) BKA stump complication: Status: Acute Plan In short patient has a nonhealing right BKA stump. He will require operative debridement for this in order to get better closure along with a wound VAC. this was discussed in detail with the patient and the patient's family. They agreed and would like to move forward. The patient will require right stump debridement with wound VAC placement. Patient will be preopped for tomorrow. Thank you for allowing us to assist in his care. Time Spent With Patient Time: Total time managing care of this patient today ____ minutes. Procedures Date of Service Date of Service: 01/18/23 Quality Stroke Does the patient have a stroke diagnosis?: No VTE Prior VTE?: No VTE Risk Level:: Surgical - very high VTE Device Contraindication: N/A - Device Ordered VTE Drug Contraindication: Treatment Not Indicated
[2023-01-18 15:06] LABS: Glucose, Whole Blood 178 mg/dL (60-115)
[2023-01-18 15:24] VITALS: BP 121/58; PULSE 65; RESP 18; TEMP 36.4; O2SAT 95
[2023-01-18 16:15] LABS: Glucose, Whole Blood 142 mg/dL (60-115)
[2023-01-18 17:58] LABS: Vancomycin Random 18.2 mcg/mL (15-20)
--- NOTE | 2023-01-18 18:17 | HE.PHANOTE ---
RE: vanco Trough on 01/18 came back at 18.2; decreased dose to 1000mg Q12H with predicted trough of 12.5mg/L, AUC of 438. Next level to be drawn after 3 doses 01/20/23 @0600
[2023-01-18 19:52] VITALS: BP 145/65; PULSE 70; RESP 18; TEMP 36.1; O2SAT 96
[2023-01-18] MEDS: vancomycin HCL 1,000 MG in 0.9 % Sodium Chloride 250 ML 270 MG IV (20:25)
[2023-01-18 20:50] LABS: Glucose, Whole Blood 238 mg/dL (60-115)
[2023-01-18] MEDS: Atorvastatin Calcium 80 MG TABLET PO (21:41)
[2023-01-18] MEDS: Insulin Glargine,Hum.rec.anlog 100 UNIT/ML 10 ML VIAL 44 UNIT SUBCUT (21:42)
[2023-01-19] VITALS (12 sets, daily range): BP systolic 129–162; BP diastolic 52–82; PULSE 59–89; RESP 14–18; TEMP 36–36.7; O2SAT 96–100
[2023-01-19] MEDS: Omeprazole 20 MG CAPSULE.DR PO (05:32)
[2023-01-19] MEDS: Morphine Sulfate 4 MG/ML CARTRIDGE IVPUSH (05:33)
[2023-01-19 07:38] LABS: Glucose, Whole Blood 166 mg/dL (60-115)
[2023-01-19] MEDS: Albuterol/Iprat 2.5/0.5MG 3 ML AMPUL.NEB INHALE (07:55)
[2023-01-19] MEDS: Multivitamin TABLET 1 TAB PO (08:13)
[2023-01-19] MEDS: vancomycin HCL 1,000 MG in 0.9 % Sodium Chloride 250 ML 270 MG IV ×2 (08:13→20:19)
[2023-01-19] MEDS: carvediloL 25 MG TABLET PO ×2 (08:13→21:15)
[2023-01-19] MEDS: Furosemide 20 MG TABLET PO (08:14)
[2023-01-19] MEDS: Furosemide 40 MG TABLET PO (08:14)
[2023-01-19] MEDS: Isosorbide Mononitrate 30 MG TAB.ER.24H PO (08:14)
[2023-01-19] MEDS: lisinopriL 40 MG TABLET PO (08:14)
[2023-01-19] MEDS: 0.9 % Sodium Chloride Flush 3 ML SYRINGE IVFLUSH ×2 (08:14→21:17)
--- NOTE | 2023-01-19 09:19 | HO.PM.IMPN ---
Subjective Subjective Date of Service: 01/19/23 Interval History: no fever NPO for OR pain controlled This history was taken in Thai from the patient. Review of Systems Review of Systems: Yes all other systems are reviewed and are negative Physical Exam Vital Signs: Vital Signs: Last Vital Signs Temp 96.9 F 01/19/23 07:26 Pulse 62 01/19/23 07:26 Resp 17 01/19/23 07:26 BP 137/63 01/19/23 07:26 Pulse Ox 98 01/19/23 07:26 O2 Del Method Room Air 01/19/23 07:26 BMI result Body Mass Index 25.8 Gen: in no acute distress HEENT: sclera anicteric, moist mucus membranes Neck: supple Lungs: clear to auscultation bilaterally Heart: regular rate and rhythm, no murmurs Abd: soft, non-tender, non-distended Ext: R BKA stump with purulent drainage Skin: warm/well-perfused Neuro: alert and oriented x3, no focal findings Psych: appropriate affect Objective Data Active Medications Acetaminophen (Acetaminophen 325 Mg Tablet) 650 mg PO Q6H PRN PRN Reason: Pain, Mild (Pain Scale 1-3) Albuterol Sulfate (Albuterol Sulfate (0.083%) 2.5 Mg/3 Ml Vial.Neb) 2.5 mg INHALE Q4H PRN PRN Reason: Shortness of Breath Albuterol/Ipratropium (Albuterol/Iprat 2.5/0.5mg 3 Ml Ampul.Neb) 3 ml INHALE RDAILY [facility] Last Admin: 01/19/23 07:55 Dose: 3 ml Documented By: WING Artificial Tears (Artificial Tears 15 Ml Drops) 2 drop EYE-BOTH QID PRN PRN Reason: Dry Eye(S) Aspirin (Aspirin Enteric Coated 81 Mg Tablet.) 81 mg PO DAILY [facility] Last Admin: 01/19/23 08:15 Dose: Not Given Documented By: PAMELA Non-Admin Reason: pre procedure Atorvastatin Calcium (Atorvastatin Calcium 80 Mg Tablet) 80 mg PO BEDTIME [facility] Last Admin: 01/18/23 21:41 Dose: 80 mg Documented By: TAWNY Carvedilol (Carvedilol 25 Mg Tablet) 25 mg PO BID [facility]; Protocol Last Admin: 01/19/23 08:13 Dose: 25 mg Documented By: PAMELA Dextrose (Dextrose 50 % 25 Gm/50 Ml Syringe) 25 gm IVPUSH Q15M PRN; Protocol PRN Reason: per Hypoglycemia Standing Ord. Docusate Sodium (Docusate Sodium 100 Mg Capsule) 100 mg PO DAILY PRN PRN Reason: Constipation Enoxaparin Sodium (Enoxaparin Sodium 40 Mg/0.4 Ml Syringe) 40 mg SUBCUT Q24H [facility] Last Admin: 01/18/23 22:53 Dose: Not Given Documented By: TAWNY Non-Admin Reason: Physician Held Med Furosemide (Furosemide 20 Mg Tablet) 20 mg PO DAILY [facility]; Protocol Last Admin: 01/19/23 08:14 Dose: 20 mg Documented By: PAMELA Furosemide (Furosemide 40 Mg Tablet) 40 mg PO DAILY [facility]; Protocol Last Admin: 01/19/23 08:14 Dose: 40 mg Documented By: PAMELA Glucose (Glucose Gel 15 Gm Gel..Gram.) 15 gm PO Q15M PRN; Protocol PRN Reason: per Hypoglycemia Standing Ord. Vancomycin HCl 1,000 mg/ (Sodium Chloride) 270 mls @ 270 mls/hr IV Q12H [facility] Last Admin: 01/19/23 08:13 Dose: 270 mls/hr Documented By: PAMELA Insulin Glargine (Insulin Glargine,Hum.Rec.Anlog 100 Unit/Ml 10 Ml Vial) 44 unit SUBCUT BEDTIME [facility] Last Admin: 01/18/23 21:42 Dose: 44 unit Documented By: TAWNY Insulin Human Lispro (Insulin Lispro 100 Unit/Ml 3 Ml Vial) 0 unit SUBCUT QIDACHS [facility]; Protocol Last Admin: 01/19/23 08:00 Dose: Not Given Documented By: PAMELA Non-Admin Reason: NPO Insulin Human Lispro (Insulin Lispro 100 Unit/Ml 3 Ml Vial) 5 unit SUBCUT TIDAC [facility] Last Admin: 01/19/23 08:00 Dose: Not Given Documented By: PAMELA Non-Admin Reason: NPO Isosorbide Mononitrate (Isosorbide Mononitrate 30 Mg Tab.Er.24h) 30 mg PO DAILY [facility]; Protocol Last Admin: 01/19/23 08:14 Dose: 30 mg Documented By: PAMELA Lisinopril (Lisinopril 40 Mg Tablet) 40 mg PO DAILY [facility]; Protocol Last Admin: 01/19/23 08:14 Dose: 40 mg Documented By: PAMELA Morphine Sulfate (Morphine Sulfate 4 Mg/Ml Cartridge) 4 mg IVPUSH Q4H PRN; Protocol PRN Reason: Pain, Severe (Pain Scale 7-10) Last Admin: 01/19/23 05:33 Dose: 4 mg Documented By: TAWNY Multivitamins/Vitamin C (Multivitamin Tablet) 1 tab PO DAILY [facility] Last Admin: 01/19/23 08:13 Dose: 1 tab Documented By: PAMELA Omeprazole (Omeprazole 20 Mg Capsule.Dr) 20 mg PO DAILY@0630 [facility] Last Admin: 01/19/23 05:32 Dose: 20 mg Documented By: TAWNY Ondansetron HCl (Ondansetron Hcl 4 Mg/2 Ml Vial) 4 mg IVPUSH Q8H PRN PRN Reason: Nausea and Vomiting Oxycodone HCl (Oxycodone Hcl Immed Release 5 Mg Tablet) 5 mg PO Q6H PRN PRN Reason: Pain, Moderate(Pain Scale 4-6) Pharmacy Consult (Consult Rx Vancomycin Dosing) 1 each MISCELLANE DAILY PRN PRN Reason: Consult order Sodium Chloride (0.9 % Sodium Chloride Flush 3 Ml Syringe) 3 ml IVFLUSH QSHIFT [facility] Last Admin: 01/19/23 08:14 Dose: 3 ml Documented By: PAMELA Tiotropium [place] (Tiotropium [place] 2.5 Mcg Inhaler) 2 puff INHALE RDAILY [facility] Last Admin: 01/19/23 08:06 Dose: 2 puff Documented By: WING Labs 01/18/23 08:32 01/18/23 08:32 Labs: Laboratory Results - last 24 hr 01/18/23 01/18/23 01/18/23 08:32 12:04 15:02 Anion Gap 15 Estim Creat Clear Calc 87.4 Estimated GFR > 60 POC Glucose 203 H 178 H Random Glucose 148 H Calcium 10.1 Random Vancomycin 01/18/23 01/18/23 01/18/23 16:07 17:32 20:42 Anion Gap Estim Creat Clear Calc Estimated GFR POC Glucose 142 H 238 H Random Glucose Calcium Random Vancomycin 18.2 01/19/23 07:35 Anion Gap Estim Creat Clear Calc Estimated GFR POC Glucose 166 H Random Glucose Calcium Random Vancomycin Microbiology 01/14/23 18:50 Blood - Venous Blood Culture - Final Methicillin Res Staph Aureus 01/14/23 18:51 Blood - Venous Blood Culture - Preliminary No growth after 48 hours. TTE 01/18/23 - Moderately increased left ventricular cavity size.? There is ? mildly increased left ventricular wall thickness.? The left? ? ? ventricular systolic function is severely decreased.? The? visually estimated ejection fraction is between 20-25%.? - E/E prime ratio is >15, consistent with elevated filling ? ? ? pressures. ? - Mildly increased right ventricular cavity size.? There is low? normal right ventricular systolic function.? - There is mild thickening of the aortic valve.? - Broken chordae noted in some views. No obvious vegetation? ? ? noted. ? - No definitive evidence of vegetation on the TTE. ? ?? Assessment and Plan (1) Infection of amputation site of lower extremity: Status: Acute Plan d6 62yo M with PAD s/p BKA 12/21/22 admitted for infection of BKA stump, found to have MRSA bacteremia R BKA amputation site infection MRSA bacteremia - continue vancomycin 01/14- - off pip-bahman 01/14-01/17 - surveillance cultures drawn 01/18, TTE without evidence of vegetation, ID consultation pending but will likely need PICC line and 6 wk of IV ABX - to OR today with Dr Dia for debridement and VAC placement PAD CAD ischemic cardiomyopathy chronic HFrEF - aspirin, statin, carvedilol, Imdur, lisinopril DM2 - basal-bolus insulin VTE ppx - LMWH dispo - anticipate [facility] for VAC care, IV ABX In my clinical judgment, the patient requires continued inpatient hospitalization for the following reasons: IV ABX, operative intervention Time Spent With Patient Time: Total time managing care of this patient today __45__ minutes. Quality Stroke Does the patient have a stroke diagnosis?: No VTE Prior VTE?: No VTE Risk Level:: Surgical - very high VTE Device Contraindication: N/A - Device Ordered VTE Drug Contraindication: Treatment Not Indicated
[2023-01-19 11:15] LABS: Glucose, Whole Blood 196 mg/dL (60-115)
--- NOTE | 2023-01-19 11:49 | HO.ANESPROP2 ---
HPI - Anesthesia Eval Consult details Narrative: for right BKA PMFSH Active Problems Active Problems: All Active Problems (Updated 01/14/23 @ 22:45 by Latrice Winter MD) Infection of amputation site of lower extremity (Acute) BKA stump complication (Acute) Cellulitis (Acute) Below-knee amputation of right lower extremity (Acute) Snoring (Acute) Witnessed apneic spells (Acute) Insomnia (Acute) Nocturnal leg cramps (Acute) Cellulitis, perineum (Acute) Urinary retention (Acute) BPH w urinary obs/LUTS (Acute) Nocturia more than twice per night (Acute) SOB (shortness of breath) (Acute) Smoking (Acute) Preoperative cardiovascular examination (Acute) Arterial occlusion, lower extremity (Acute) High cholesterol (Acute) Abscess, perineum (Acute) Past Medical History Medical History Abscess, perineum Asthma BPH (benign prostatic hyperplasia) CAD (coronary artery disease) Cardiomyopathy Cardiomyopathy Coronary artery disease Diabetes Essential hypertension High cholesterol History of peripheral vascular disease HTN (hypertension) PAD (peripheral artery disease) Type 2 diabetes mellitus with unspecified complications Family History Family History Father No problems noted. Mother Diabetes HTN (hypertension) Sister No problems noted. Sister Diabetes HTN (hypertension) Sister No problems noted. Family history of problems with anesthesia: No Surgical History Surgical History History of cardiac cath History of surgical removal of pilonidal cyst Hx of hand surgery Hx of hand surgery Hx of varicose vein stripping S/P angiogram of extremity History of Problems with Anesthesia: No Social History Social History Household Members: None Housing: Apartment Housing Other:: elderly housing Are you a primary healthcare educator to a significant other at home: No Do you presently have visiting nurse or other home services: Yes ([employer]) Alcohol intake: never Patient Tobacco Use Status: Current everyday Tobacco user Tobacco use type: Cigarette Cigarette Packs Per Day: 0.5 Cigarettes Per Day: 10 Years Smoked: 15+/- Second Hand Smoke Exposure: No Advance Directives Date on File: 12/10/20 service: No Current occupational status: disabled Meds Allergies Allergy/AdvReac Type Severity Reaction Status Date / Time No Known Allergies Allergy Verified 01/14/23 16:19 Active Medications: Current Medications Acetaminophen (Acetaminophen 325 Mg Tablet) 650 mg PO Q6H PRN PRN Reason: Pain, Mild (Pain Scale 1-3) Albuterol Sulfate (Albuterol Sulfate (0.083%) 2.5 Mg/3 Ml Vial.Neb) 2.5 mg INHALE Q4H PRN PRN Reason: Shortness of Breath Albuterol/Ipratropium (Albuterol/Iprat 2.5/0.5mg 3 Ml Ampul.Neb) 3 ml INHALE RDAILY [facility] Last Admin: 01/19/23 07:55 Dose: 3 ml Artificial Tears (Artificial Tears 15 Ml Drops) 2 drop EYE-BOTH QID PRN PRN Reason: Dry Eye(S) Aspirin (Aspirin Enteric Coated 81 Mg Tablet.Dr) 81 mg PO DAILY [facility] Last Admin: 01/19/23 08:15 Dose: Not Given Atorvastatin Calcium (Atorvastatin Calcium 80 Mg Tablet) 80 mg PO BEDTIME [facility] Last Admin: 01/18/23 21:41 Dose: 80 mg Carvedilol (Carvedilol 25 Mg Tablet) 25 mg PO BID [facility]; Protocol Last Admin: 01/19/23 08:13 Dose: 25 mg Dextrose (Dextrose 50 % 25 Gm/50 Ml Syringe) 25 gm IVPUSH Q15M PRN; Protocol PRN Reason: per Hypoglycemia Standing Ord. Docusate Sodium (Docusate Sodium 100 Mg Capsule) 100 mg PO DAILY PRN PRN Reason: Constipation Enoxaparin Sodium (Enoxaparin Sodium 40 Mg/0.4 Ml Syringe) 40 mg SUBCUT Q24H [facility] Last Admin: 01/18/23 22:53 Dose: Not Given Furosemide (Furosemide 20 Mg Tablet) 20 mg PO DAILY [facility]; Protocol Last Admin: 01/19/23 08:14 Dose: 20 mg Furosemide (Furosemide 40 Mg Tablet) 40 mg PO DAILY [facility]; Protocol Last Admin: 01/19/23 08:14 Dose: 40 mg Glucose (Glucose Gel 15 Gm Gel..Gram.) 15 gm PO Q15M PRN; Protocol PRN Reason: per Hypoglycemia Standing Ord. Vancomycin HCl 1,000 mg/ (Sodium Chloride) 270 mls @ 270 mls/hr IV Q12H [facility] Last Infusion: 01/19/23 09:34 Dose: Infused Insulin Glargine (Insulin Glargine,Hum.Rec.Anlog 100 Unit/Ml 10 Ml Vial) 44 unit SUBCUT BEDTIME [facility] Last Admin: 01/18/23 21:42 Dose: 44 unit Insulin Human Lispro (Insulin Lispro 100 Unit/Ml 3 Ml Vial) 0 unit SUBCUT QIDACHS [facility]; Protocol Last Admin: 01/19/23 11:18 Dose: Not Given Insulin Human Lispro (Insulin Lispro 100 Unit/Ml 3 Ml Vial) 5 unit SUBCUT TIDAC [facility] Last Admin: 01/19/23 11:19 Dose: Not Given Isosorbide Mononitrate (Isosorbide Mononitrate 30 Mg Tab.Er.24h) 30 mg PO DAILY [facility]; Protocol Last Admin: 01/19/23 08:14 Dose: 30 mg Lisinopril (Lisinopril 40 Mg Tablet) 40 mg PO DAILY [facility]; Protocol Last Admin: 01/19/23 08:14 Dose: 40 mg Morphine Sulfate (Morphine Sulfate 4 Mg/Ml Cartridge) 4 mg IVPUSH Q4H PRN; Protocol PRN Reason: Pain, Severe (Pain Scale 7-10) Last Admin: 01/19/23 05:33 Dose: 4 mg Multivitamins/Vitamin C (Multivitamin Tablet) 1 tab PO DAILY [facility] Last Admin: 01/19/23 08:13 Dose: 1 tab Omeprazole (Omeprazole 20 Mg Capsule.Dr) 20 mg PO DAILY@0630 [facility] Last Admin: 01/19/23 05:32 Dose: 20 mg Ondansetron HCl (Ondansetron Hcl 4 Mg/2 Ml Vial) 4 mg IVPUSH Q8H PRN PRN Reason: Nausea and Vomiting Oxycodone HCl (Oxycodone Hcl Immed Release 5 Mg Tablet) 5 mg PO Q6H PRN PRN Reason: Pain, Moderate(Pain Scale 4-6) Pharmacy Consult (Consult Rx Vancomycin Dosing) 1 each MISCELLANE DAILY PRN PRN Reason: Consult order Sodium Chloride (0.9 % Sodium Chloride Flush 3 Ml Syringe) 3 ml IVFLUSH QSHIFT [facility] Last Admin: 01/19/23 08:14 Dose: 3 ml Tiotropium [place] (Tiotropium [place] 2.5 Mcg Inhaler) 2 puff INHALE RDAILY [facility] Last Admin: 01/19/23 08:06 Dose: 2 puff Home Medications Medication Instructions Recorded Confirmed Last Taken Type aspirin 81 mg tablet,delayed 81 mg PO DAILY 12/10/20 01/14/23 12/09/20 History release atorvastatin 80 mg tablet 80 mg PO BEDTIME 12/10/20 01/14/23 12/09/20 History insulin glargine 100 unit/mL (3 44 unit subcut BEDTIME 12/10/20 01/14/23 11/14/22 History mL) subcutaneous pen (Lantus Solostar U-100 Insulin) insulin lispro 100 unit/mL 10 unit subcut TIDAC 12/10/20 01/14/23 11/14/22 History subcutaneous pen (Humalog KwikPen (U-100) Insulin) lisinopril 40 mg tablet 40 mg PO DAILY 03/23/22 01/14/23 Unknown History empagliflozin 25 mg tablet 25 mg PO DAILY 08/18/22 01/14/23 Unknown History (Jardiance) metformin 1,000 mg tablet 1,000 mg PO BIDWM 08/18/22 01/14/23 Unknown History ipratropium 20 mcg-albuterol 100 1 puff inhalation DAILY 11/14/22 01/14/23 12/21/22 06:00 History mcg/actuation mist for inhalation (Combivent Respimat) pantoprazole 20 mg tablet,delayed 20 mg PO DAILY 11/14/22 01/14/23 Unknown History release tiotropium bromide 2.5 2 puff inhalation DAILY 11/14/22 01/14/23 Unknown History mcg/actuation mist for inhalation (Spiriva Respimat) albuterol sulfate 2.5 mg/3 mL 2.5 mg inhalation Q4H PRN SOB 12/21/22 01/14/23 Unknown History (0.083 %) solution for nebulization furosemide 20 mg tablet 20 mg PO DAILY 12/21/22 01/14/23 Unknown History furosemide 40 mg tablet (Lasix) 40 mg PO DAILY 12/21/22 01/14/23 Unknown History amino ac-protein hydro-whey 1 ea PO DAILY 01/14/23 01/14/23 Unknown History protein 10 gram-100 kcal/30 mL oral liquid (ProSource) arginine-vitamin C-vitamin E oral 9.2 g PO DAILY 01/14/23 01/14/23 Unknown History 4.5 gram-156 mg/9.2 gram powder pkt (Arginaid) cephalexin 500 mg capsule 500 mg PO BID 01/14/23 01/14/23 Unknown History multivitamin 1 tab PO DAILY 01/14/23 01/14/23 Unknown History peg [id number] 1 2 drp ophthalmic (eye) QID PRN Dry 01/14/23 01/14/23 Unknown History %-0.2 %-0.2 % eye drops Eye(S) (Artificial Tears ([id number])) Exam Exam Date and Time: January 19, 2023 114 Height,Weight and Vital Signs: Height 5 ft 6 in Weight 72.575 kg Last Vital Signs Temp 96.9 F 01/19/23 07:26 Pulse 62 01/19/23 07:26 Resp 17 01/19/23 07:26 BP 137/63 01/19/23 07:26 Pulse Ox 98 01/19/23 07:26 O2 Del Method Room Air 01/19/23 07:26 Pertinent Lab Results Pertinent Lab Results: Laboratory Tests 01/14/23 01/14/23 01/14/23 18:50 18:51 18:51 WBC 13.9 H RBC 4.94 Hgb 14.1 Hct 43.1 MCV 87.2 MCH 28.5 MCHC 32.7 RDW 14.5 Plt Count 369 D MPV 9.7 Immature Gran % (Auto) 0.4 Neut % (Auto) 70.5 Lymph % (Auto) 17.7 L [place] % (Auto) 8.0 Eos % (Auto) 2.8 Baso % (Auto) 0.6 Lymph # (Auto) 2.5 [place] # (Auto) 1.1 Eos # (Auto) 0.4 Baso # (Auto) 0.1 Abs Immat Gran (auto) 0.05 H Absolute Neuts (auto) 9.8 H Absolute Nucleated RBC 0.000 Nucleated RBC % (auto) 0.0 ESR Sodium 137 Potassium 4.8 Chloride 103 Carbon Dioxide 26 Anion Gap 13 BUN 28 H Creatinine 0.81 Estim Creat Clear Calc 83.1 Estimated GFR > 60 POC Glucose Random Glucose 110 Lactic Acid Calcium 10.2 D Total Bilirubin 0.5 Direct Bilirubin 0.2 AST 19 ALT 22 Alkaline Phosphatase 79 C-Reactive Protein 1.90 H Total Protein 8.1 H Albumin 3.9 Lipase 17 Urine Color Yellow Urine Appearance Clear Urine pH 6.5 Ur Specific [place] >= 1.030 H Urine Protein Negative Urine Glucose (UA) >=1000 H Urine Ketones Negative Urine Blood Negative Urine Nitrite Negative Ur Leukocyte Esterase Negative Urine RBC 3-5 H Urine WBC 0-5 Ur Squamous Epith Cells 0-2 Urine Bacteria None Seen Hyaline Casts 0-2 Vancomycin Trough Random Vancomycin 01/14/23 01/14/23 01/15/23 18:51 18:51 07:40 WBC RBC Hgb Hct MCV MCH MCHC RDW Plt Count MPV Immature Gran % (Auto) Neut % (Auto) Lymph % (Auto) [place] % (Auto) Eos % (Auto) Baso % (Auto) Lymph # (Auto) [place] # (Auto) Eos # (Auto) Baso # (Auto) Abs Immat Gran (auto) Absolute Neuts (auto) Absolute Nucleated RBC Nucleated RBC % (auto) ESR 38 H Sodium Potassium Chloride Carbon Dioxide Anion Gap BUN Creatinine Estim Creat Clear Calc Estimated GFR POC Glucose 133 H Random Glucose Lactic Acid 1.5 Calcium Total Bilirubin Direct Bilirubin AST ALT Alkaline Phosphatase C-Reactive Protein Total Protein Albumin Lipase Urine Color Urine Appearance Urine pH Ur Specific [place] Urine Protein Urine Glucose (UA) Urine Ketones Urine Blood Urine Nitrite Ur Leukocyte Esterase Urine RBC Urine WBC Ur Squamous Epith Cells Urine Bacteria Hyaline Casts Vancomycin Trough Random Vancomycin 01/15/23 01/15/23 01/15/23 11:03 15:53 20:19 WBC RBC Hgb Hct MCV MCH MCHC RDW Plt Count MPV Immature Gran % (Auto) Neut % (Auto) Lymph % (Auto) [place] % (Auto) Eos % (Auto) Baso % (Auto) Lymph # (Auto) [place] # (Auto) Eos # (Auto) Baso # (Auto) Abs Immat Gran (auto) Absolute Neuts (auto) Absolute Nucleated RBC Nucleated RBC % (auto) ESR Sodium Potassium Chloride Carbon Dioxide Anion Gap BUN Creatinine Estim Creat Clear Calc Estimated GFR POC Glucose 108 106 147 H Random Glucose Lactic Acid Calcium Total Bilirubin Direct Bilirubin AST ALT Alkaline Phosphatase C-Reactive Protein Total Protein Albumin Lipase Urine Color Urine Appearance Urine pH Ur Specific [place] Urine Protein Urine Glucose (UA) Urine Ketones Urine Blood Urine Nitrite Ur Leukocyte Esterase Urine RBC Urine WBC Ur Squamous Epith Cells Urine Bacteria Hyaline Casts Vancomycin Trough Random Vancomycin 01/16/23 01/16/23 01/16/23 05:53 05:53 07:53 WBC RBC Hgb Hct MCV MCH MCHC RDW Plt Count MPV Immature Gran % (Auto) Neut % (Auto) Lymph % (Auto) [place] % (Auto) Eos % (Auto) Baso % (Auto) Lymph # (Auto) [place] # (Auto) Eos # (Auto) Baso # (Auto) Abs Immat Gran (auto) Absolute Neuts (auto) Absolute Nucleated RBC Nucleated RBC % (auto) ESR Sodium Potassium Chloride Carbon Dioxide Anion Gap BUN Creatinine 0.75 Estim Creat Clear Calc 89.7 Estimated GFR > 60 POC Glucose 157 H Random Glucose Lactic Acid Calcium Total Bilirubin Direct Bilirubin AST ALT Alkaline Phosphatase C-Reactive Protein Total Protein Albumin Lipase Urine Color Urine Appearance Urine pH Ur Specific [place] Urine Protein Urine Glucose (UA) Urine Ketones Urine Blood Urine Nitrite Ur Leukocyte Esterase Urine RBC Urine WBC Ur Squamous Epith Cells Urine Bacteria Hyaline Casts Vancomycin Trough 9.4 L Random Vancomycin 01/16/23 01/16/23 01/16/23 10:59 15:54 20:39 WBC RBC Hgb Hct MCV MCH MCHC RDW Plt Count MPV Immature Gran % (Auto) Neut % (Auto) Lymph % (Auto) [place] % (Auto) Eos % (Auto) Baso % (Auto) Lymph # (Auto) [place] # (Auto) Eos # (Auto) Baso # (Auto) Abs Immat Gran (auto) Absolute Neuts (auto) Absolute Nucleated RBC Nucleated RBC % (auto) ESR Sodium Potassium Chloride Carbon Dioxide Anion Gap BUN Creatinine Estim Creat Clear Calc Estimated GFR POC Glucose 146 H 171 H 120 H Random Glucose Lactic Acid Calcium Total Bilirubin Direct Bilirubin AST ALT Alkaline Phosphatase C-Reactive Protein Total Protein Albumin Lipase Urine Color Urine Appearance Urine pH Ur Specific [place] Urine Protein Urine Glucose (UA) Urine Ketones Urine Blood Urine Nitrite Ur Leukocyte Esterase Urine RBC Urine WBC Ur Squamous Epith Cells Urine Bacteria Hyaline Casts Vancomycin Trough Random Vancomycin 01/17/23 01/17/23 01/17/23 07:07 08:13 08:13 WBC RBC Hgb Hct MCV MCH MCHC RDW Plt Count MPV Immature Gran % (Auto) Neut % (Auto) Lymph % (Auto) [place] % (Auto) Eos % (Auto) Baso % (Auto) Lymph # (Auto) [place] # (Auto) Eos # (Auto) Baso # (Auto) Abs Immat Gran (auto) Absolute Neuts (auto) Absolute Nucleated RBC Nucleated RBC % (auto) ESR Sodium Potassium Chloride Carbon Dioxide Anion Gap BUN Creatinine 0.80 Estim Creat Clear Calc 84.1 Estimated GFR > 60 POC Glucose 111 Random Glucose Lactic Acid Calcium Total Bilirubin Direct Bilirubin AST ALT Alkaline Phosphatase C-Reactive Protein Total Protein Albumin Lipase Urine Color Urine Appearance Urine pH Ur Specific [place] Urine Protein Urine Glucose (UA) Urine Ketones Urine Blood Urine Nitrite Ur Leukocyte Esterase Urine RBC Urine WBC Ur Squamous Epith Cells Urine Bacteria Hyaline Casts Vancomycin Trough Random Vancomycin 14.1 L 01/17/23 01/17/23 01/17/23 11:14 15:58 20:42 WBC RBC Hgb Hct MCV MCH MCHC RDW Plt Count MPV Immature Gran % (Auto) Neut % (Auto) Lymph % (Auto) [place] % (Auto) Eos % (Auto) Baso % (Auto) Lymph # (Auto) [place] # (Auto) Eos # (Auto) Baso # (Auto) Abs Immat Gran (auto) Absolute Neuts (auto) Absolute Nucleated RBC Nucleated RBC % (auto) ESR Sodium Potassium Chloride Carbon Dioxide Anion Gap BUN Creatinine Estim Creat Clear Calc Estimated GFR POC Glucose 156 H 161 H 95 Random Glucose Lactic Acid Calcium Total Bilirubin Direct Bilirubin AST ALT Alkaline Phosphatase C-Reactive Protein Total Protein Albumin Lipase Urine Color Urine Appearance Urine pH Ur Specific [place] Urine Protein Urine Glucose (UA) Urine Ketones Urine Blood Urine Nitrite Ur Leukocyte Esterase Urine RBC Urine WBC Ur Squamous Epith Cells Urine Bacteria Hyaline Casts Vancomycin Trough Random Vancomycin 01/18/23 01/18/23 01/18/23 07:04 08:32 08:32 WBC RBC Hgb Hct MCV MCH MCHC RDW Plt Count MPV Immature Gran % (Auto) Neut % (Auto) Lymph % (Auto) [place] % (Auto) Eos % (Auto) Baso % (Auto) Lymph # (Auto) [place] # (Auto) Eos # (Auto) Baso # (Auto) Abs Immat Gran (auto) Absolute Neuts (auto) Absolute Nucleated RBC Nucleated RBC % (auto) ESR Sodium 139 Potassium 4.3 Chloride 103 Carbon Dioxide 25 Anion Gap 15 BUN 14 Creatinine 0.77 Estim Creat Clear Calc 87.4 Estimated GFR > 60 POC Glucose 157 H Random Glucose 148 H Lactic Acid Calcium 10.1 Total Bilirubin Direct Bilirubin AST ALT Alkaline Phosphatase C-Reactive Protein Total Protein Albumin Lipase Urine Color Urine Appearance Urine pH Ur Specific [place] Urine Protein Urine Glucose (UA) Urine Ketones Urine Blood Urine Nitrite Ur Leukocyte Esterase Urine RBC Urine WBC Ur Squamous Epith Cells Urine Bacteria Hyaline Casts Vancomycin Trough Random Vancomycin Cancelled 01/18/23 01/18/23 01/18/23 08:32 12:04 15:02 WBC 10.1 RBC 4.94 Hgb 13.8 L Hct 43.4 MCV 87.9 MCH 27.9 MCHC 31.8 RDW 14.6 Plt Count 321 MPV 9.9 Immature Gran % (Auto) Neut % (Auto) Lymph % (Auto) [place] % (Auto) Eos % (Auto) Baso % (Auto) Lymph # (Auto) [place] # (Auto) Eos # (Auto) Baso # (Auto) Abs Immat Gran (auto) Absolute Neuts (auto) Absolute Nucleated RBC 0.000 Nucleated RBC % (auto) 0.0 ESR Sodium Potassium Chloride Carbon Dioxide Anion Gap BUN Creatinine Estim Creat Clear Calc Estimated GFR POC Glucose 203 H 178 H Random Glucose Lactic Acid Calcium Total Bilirubin Direct Bilirubin AST ALT Alkaline Phosphatase C-Reactive Protein Total Protein Albumin Lipase Urine Color Urine Appearance Urine pH Ur Specific [place] Urine Protein Urine Glucose (UA) Urine Ketones Urine Blood Urine Nitrite Ur Leukocyte Esterase Urine RBC Urine WBC Ur Squamous Epith Cells Urine Bacteria Hyaline Casts Vancomycin Trough Random Vancomycin 01/18/23 01/18/23 01/18/23 16:07 17:32 20:42 WBC RBC Hgb Hct MCV MCH MCHC RDW Plt Count MPV Immature Gran % (Auto) Neut % (Auto) Lymph % (Auto) [place] % (Auto) Eos % (Auto) Baso % (Auto) Lymph # (Auto) [place] # (Auto) Eos # (Auto) Baso # (Auto) Abs Immat Gran (auto) Absolute Neuts (auto) Absolute Nucleated RBC Nucleated RBC % (auto) ESR Sodium Potassium Chloride Carbon Dioxide Anion Gap BUN Creatinine Estim Creat Clear Calc Estimated GFR POC Glucose 142 H 238 H Random Glucose Lactic Acid Calcium Total Bilirubin Direct Bilirubin AST ALT Alkaline Phosphatase C-Reactive Protein Total Protein Albumin Lipase Urine Color Urine Appearance Urine pH Ur Specific [place] Urine Protein Urine Glucose (UA) Urine Ketones Urine Blood Urine Nitrite Ur Leukocyte Esterase Urine RBC Urine WBC Ur Squamous Epith Cells Urine Bacteria Hyaline Casts Vancomycin Trough Random Vancomycin 18.2 01/19/23 01/19/23 07:35 11:11 WBC RBC Hgb Hct MCV MCH MCHC RDW Plt Count MPV Immature Gran % (Auto) Neut % (Auto) Lymph % (Auto) [place] % (Auto) Eos % (Auto) Baso % (Auto) Lymph # (Auto) [place] # (Auto) Eos # (Auto) Baso # (Auto) Abs Immat Gran (auto) Absolute Neuts (auto) Absolute Nucleated RBC Nucleated RBC % (auto) ESR Sodium Potassium Chloride Carbon Dioxide Anion Gap BUN Creatinine Estim Creat Clear Calc Estimated GFR POC Glucose 166 H 196 H Random Glucose Lactic Acid Calcium Total Bilirubin Direct Bilirubin AST ALT Alkaline Phosphatase C-Reactive Protein Total Protein Albumin Lipase Urine Color Urine Appearance Urine pH Ur Specific [place] Urine Protein Urine Glucose (UA) Urine Ketones Urine Blood Urine Nitrite Ur Leukocyte Esterase Urine RBC Urine WBC Ur Squamous Epith Cells Urine Bacteria Hyaline Casts Vancomycin Trough Random Vancomycin Airway Mallampati Class: II TM Dist: >3cm Neck ROM: Limited Heart: rrr Lungs: cta Assessment and Plan Assessment Anesthesia Assessment: Anesthesia Plan Discussed and Chart Reviewed Final Anesthetic Review Family History of Problems with Anesthesia: No History of Problems with Anesthesia: No ASA Class: IV Final Preanesthetic Review: No Changes in Pt Med Stat, Meds/Allgs Chart Reviewed, Consent Obtained/Reviewed and Anes Risks/Benef Reviewed Patient Risk: High Procedure Risk: Intermediate Anesthetic Plan Anesthetic Plan: MAC:, Regional Block and Agree w/ Assess. and Plan Disposition: Standard PACU
--- NOTE | 2023-01-19 13:44 | P.OP_ITS ---
Operative Note Operative Note Date of Service: 01/19/23 Narrative: Operative note by [facility] Preoperative diagnosis: Nonhealing right BKA stump Postoperative diagnosis: Same Procedure:1. Excisional debridement of right BKA stump 2. Placement of wound VAC Surgeon:Justin Dia M.D. Quality Control Assessor: [place] Anesthesia: Block with sedation by a doctor stemeugenia Specimens: None Drains: None Estimated blood loss: Minimal Indications: 62-year-old gentleman who had undergone prior right BKA had nonhealing incision line. He now presents for operative debridement and wound VAC placement. The patient has signed the informed consent after reviewing risks, complications, benefits, and alternatives previously discussed with the patient. The patient was given the opportunity to ask any additional questions or voice any concerns. All questions were answered to the patient's satisfaction. Procedure in detail: Patient was brought to the operating room prior to which a time-out was called for patient identification site verification. Right stump was prepped and draped in standard surgical fashion. Once this was accomplished residual prior sutures which was a nylon in a mattress fashion were removed. Using a 15 blade and pickups excisional debridement was undertaken into muscle. Preprocedure measurement of the wound bed was 11 x 3.5 x 0.6 cm post debridement measurement was 11.5 x 4.0 x 0.9 cm. All the fibrinous necrotic material were removed. Hemostasis was achieved with electrocautery. Once a clean tissue bed was achieved we trimmed a medium-size sponge for a wound VAC. This was placed. We then placed a wound VAC to 125 mm of continuous suction. Patient tolerated the procedure well. This note is constructed using voice recognition software. While every effort has been made to ensure accuracy, bead maker errors may have been included. Thank you for allowing me to participate in the care of your patient. Yours sincerely, Justin Dia MD, FACS, R.P.V.I.
--- NOTE | 2023-01-19 13:44 | MHC.SHP ---
Pre-Procedural Eval Section A Date of Service: 01/19/23 The patient is an INPATIENT: Yes Changes since office visit: Yes Patient answered all questions The History & Physical has been completed within 30 days and I have reviewed it.: Yes Section B Chief Complaint: non- healing amputation SiTE Allergies: Allergies Allergy/AdvReac Type Severity Reaction Status Date / Time No Known Allergies Allergy Verified 01/14/23 16:19 Plan I have reviewed the history and physical and performed a pertinent physical examination on my patient. No changes have occurred unless specified. Time Spent With Patient Time: Total time managing care of this patient today ____ minutes.
[2023-01-19 14:11] LABS: Glucose, Whole Blood 141 mg/dL (60-115)
--- NOTE | 2023-01-19 15:18 | W.PM.IDCN ---
History of Present Illness Data of Consult Service Date: 01/19/23 Requesting physician: Columba Lou Primary Care Provider: Loli Augustin MD HPI Reason for consult: nonhealing post BKA He presents to hospital with right BKA area open and foul smelling area. He had BKA surgery three weeks ago. He has no fever or chills now. [facility] Past Medical History Medical History Abscess, perineum Asthma BPH (benign prostatic hyperplasia) CAD (coronary artery disease) Cardiomyopathy Cardiomyopathy Coronary artery disease Diabetes Essential hypertension High cholesterol History of peripheral vascular disease HTN (hypertension) PAD (peripheral artery disease) Type 2 diabetes mellitus with unspecified complications Family History Family History Father No problems noted. Mother Diabetes HTN (hypertension) Sister No problems noted. Sister Diabetes HTN (hypertension) Sister No problems noted. Family history: reviewed and not pertinent Surgical History Surgical History History of cardiac cath History of surgical removal of pilonidal cyst Hx of hand surgery Hx of hand surgery Hx of varicose vein stripping S/P angiogram of extremity Social History Social History Household Members: None Housing: Apartment Housing Other:: elderly housing Are you a primary field care coordinator to a significant other at home: No Do you presently have visiting nurse or other home services: Yes ([employer]-son Rommel) Alcohol intake: never Patient Tobacco Use Status: Current everyday Tobacco user Tobacco use type: Cigarette Cigarette Packs Per Day: 0.5 Cigarettes Per Day: 10 Years Smoked: 15+/- Second Hand Smoke Exposure: No Advance Directives Date on File: 12/10/20 service: No Current occupational status: disabled Meds Allergies Allergy/AdvReac Type Severity Reaction Status Date / Time No Known Allergies Allergy Verified 01/14/23 16:19 Active Medications: Current Medications Acetaminophen (Acetaminophen 325 Mg Tablet) 650 mg PO Q6H PRN PRN Reason: Pain, Mild (Pain Scale 1-3) Albuterol Sulfate (Albuterol Sulfate (0.083%) 2.5 Mg/3 Ml Vial.Neb) 2.5 mg INHALE Q4H PRN PRN Reason: Shortness of Breath Albuterol/Ipratropium (Albuterol/Iprat 2.5/0.5mg 3 Ml Ampul.Neb) 3 ml INHALE RDAILY [facility] Last Admin: 01/19/23 07:55 Dose: 3 ml Artificial Tears (Artificial Tears 15 Ml Drops) 2 drop EYE-BOTH QID PRN PRN Reason: Dry Eye(S) Aspirin (Aspirin Enteric Coated 81 Mg Tablet.Dr) 81 mg PO DAILY [facility] Last Admin: 01/19/23 08:15 Dose: Not Given Atorvastatin Calcium (Atorvastatin Calcium 80 Mg Tablet) 80 mg PO BEDTIME [facility] Last Admin: 01/18/23 21:41 Dose: 80 mg Carvedilol (Carvedilol 25 Mg Tablet) 25 mg PO BID [facility]; Protocol Last Admin: 01/19/23 08:13 Dose: 25 mg Dextrose (Dextrose 50 % 25 Gm/50 Ml Syringe) 25 gm IVPUSH Q15M PRN; Protocol PRN Reason: per Hypoglycemia Standing Ord. Docusate Sodium (Docusate Sodium 100 Mg Capsule) 100 mg PO DAILY PRN PRN Reason: Constipation Enoxaparin Sodium (Enoxaparin Sodium 40 Mg/0.4 Ml Syringe) 40 mg SUBCUT Q24H [facility] Last Admin: 01/18/23 22:53 Dose: Not Given Furosemide (Furosemide 20 Mg Tablet) 20 mg PO DAILY [facility]; Protocol Last Admin: 01/19/23 08:14 Dose: 20 mg Furosemide (Furosemide 40 Mg Tablet) 40 mg PO DAILY [facility]; Protocol Last Admin: 01/19/23 08:14 Dose: 40 mg Glucose (Glucose Gel 15 Gm Gel..Gram.) 15 gm PO Q15M PRN; Protocol PRN Reason: per Hypoglycemia Standing Ord. Vancomycin HCl 1,000 mg/ (Sodium Chloride) 270 mls @ 270 mls/hr IV Q12H [facility] Last Infusion: 01/19/23 09:34 Dose: Infused Insulin Glargine (Insulin Glargine,Hum.Rec.Anlog 100 Unit/Ml 10 Ml Vial) 44 unit SUBCUT BEDTIME [facility] Last Admin: 01/18/23 21:42 Dose: 44 unit Insulin Human Lispro (Insulin Lispro 100 Unit/Ml 3 Ml Vial) 0 unit SUBCUT QIDACHS [facility]; Protocol Last Admin: 01/19/23 11:18 Dose: Not Given Insulin Human Lispro (Insulin Lispro 100 Unit/Ml 3 Ml Vial) 5 unit SUBCUT TIDAC [facility] Last Admin: 01/19/23 11:19 Dose: Not Given Isosorbide Mononitrate (Isosorbide Mononitrate 30 Mg Tab.Er.24h) 30 mg PO DAILY [facility]; Protocol Last Admin: 01/19/23 08:14 Dose: 30 mg Lisinopril (Lisinopril 40 Mg Tablet) 40 mg PO DAILY [facility]; Protocol Last Admin: 01/19/23 08:14 Dose: 40 mg Morphine Sulfate (Morphine Sulfate 4 Mg/Ml Cartridge) 4 mg IVPUSH Q4H PRN; Protocol PRN Reason: Pain, Severe (Pain Scale 7-10) Last Admin: 01/19/23 05:33 Dose: 4 mg Multivitamins/Vitamin C (Multivitamin Tablet) 1 tab PO DAILY [facility] Last Admin: 01/19/23 08:13 Dose: 1 tab Omeprazole (Omeprazole 20 Mg Capsule.Dr) 20 mg PO DAILY@0630 [facility] Last Admin: 01/19/23 05:32 Dose: 20 mg Ondansetron HCl (Ondansetron Hcl 4 Mg/2 Ml Vial) 4 mg IVPUSH Q8H PRN PRN Reason: Nausea and Vomiting Oxycodone HCl (Oxycodone Hcl Immed Release 5 Mg Tablet) 5 mg PO Q6H PRN PRN Reason: Pain, Moderate(Pain Scale 4-6) Pharmacy Consult (Consult Rx Vancomycin Dosing) 1 each MISCELLANE DAILY PRN PRN Reason: Consult order Sodium Chloride (0.9 % Sodium Chloride Flush 3 Ml Syringe) 3 ml IVFLUSH QSHIFT [facility] Last Admin: 01/19/23 08:14 Dose: 3 ml Tiotropium [place] (Tiotropium [place] 2.5 Mcg Inhaler) 2 puff INHALE RDAILY [facility] Last Admin: 01/19/23 08:06 Dose: 2 puff Home Medications Medication Instructions Recorded Confirmed Last Taken Type aspirin 81 mg tablet,delayed 81 mg PO DAILY 12/10/20 01/14/23 12/09/20 History release atorvastatin 80 mg tablet 80 mg PO BEDTIME 12/10/20 01/14/23 12/09/20 History insulin glargine 100 unit/mL (3 44 unit subcut BEDTIME 12/10/20 01/14/23 11/14/22 History mL) subcutaneous pen (Lantus Solostar U-100 Insulin) insulin lispro 100 unit/mL 10 unit subcut TIDAC 12/10/20 01/14/23 11/14/22 History subcutaneous pen (Humalog KwikPen (U-100) Insulin) lisinopril 40 mg tablet 40 mg PO DAILY 03/23/22 01/14/23 Unknown History empagliflozin 25 mg tablet 25 mg PO DAILY 08/18/22 01/14/23 Unknown History (Jardiance) metformin 1,000 mg tablet 1,000 mg PO BIDWM 08/18/22 01/14/23 Unknown History ipratropium 20 mcg-albuterol 100 1 puff inhalation DAILY 11/14/22 01/14/23 12/21/22 06:00 History mcg/actuation mist for inhalation (Combivent Respimat) pantoprazole 20 mg tablet,delayed 20 mg PO DAILY 11/14/22 01/14/23 Unknown History release tiotropium bromide 2.5 2 puff inhalation DAILY 11/14/22 01/14/23 Unknown History mcg/actuation mist for inhalation (Spiriva Respimat) albuterol sulfate 2.5 mg/3 mL 2.5 mg inhalation Q4H PRN SOB 12/21/22 01/14/23 Unknown History (0.083 %) solution for nebulization furosemide 20 mg tablet 20 mg PO DAILY 12/21/22 01/14/23 Unknown History furosemide 40 mg tablet (Lasix) 40 mg PO DAILY 12/21/22 01/14/23 Unknown History amino ac-protein hydro-whey 1 ea PO DAILY 01/14/23 01/14/23 Unknown History protein 10 gram-100 kcal/30 mL oral liquid (ProSource) arginine-vitamin C-vitamin E oral 9.2 g PO DAILY 01/14/23 01/14/23 Unknown History 4.5 gram-156 mg/9.2 gram powder pkt (Arginaid) cephalexin 500 mg capsule 500 mg PO BID 01/14/23 01/14/23 Unknown History multivitamin 1 tab PO DAILY 01/14/23 01/14/23 Unknown History peg [id number] 1 2 drp ophthalmic (eye) QID PRN Dry 01/14/23 01/14/23 Unknown History %-0.2 %-0.2 % eye drops Eye(S) (Artificial Tears ([id number])) Physical Exam Vital Signs: Vital Signs: Last Vital Signs Temp 97.1 F 01/19/23 14:00 Pulse 65 01/19/23 14:00 Resp 18 01/19/23 14:00 BP 129/68 01/19/23 14:00 Pulse Ox 98 01/19/23 14:00 O2 Del Method Room Air 01/19/23 14:00 BMI result Body Mass Index 25.8 Const: General: cooperative HEENT: Head: Yes normal to inspection Face and sinus: Yes normal facial exam Mouth: Normal oral and palatal mucosa present Teeth and gingiva: dentition normal Eyes: General: appearance normal, both eyes and all related structures Pupils: Equal, round and reactive pupils present Resp: Effort & Inspection: normal respiratory effort Cardio: Rate: regular rate Rhythm: regular rhythm GI: Palpation (GI): Soft to palpation and nontender : General: Yes no CVA tenderness Back/Spine/Pelvis: Back: no CVA tenderness Skin: General skin exam: no rashes or lesions noted Neuro: General: moves all extremities Cranial nerves: Yes Equal, round and reactive pupils present Extrem: Other: right BKA Psych: Appearance: grossly normal Results Labs 01/18/23 08:32 01/18/23 08:32 Microbiology Microbiology Results: Microbiology 01/18/23 08:32 Blood - Venous Blood Culture - Preliminary No growth after 24 hours. 01/18/23 08:32 Blood - Venous Blood Culture - Preliminary No growth after 24 hours. 01/14/23 18:50 Blood - Venous Blood Culture - Final Methicillin Res Staph Aureus 01/14/23 18:51 Blood - Venous Blood Culture - Preliminary No growth after 48 hours. Assessment and Plan (1) Infection of amputation site of lower extremity: Status: Acute (2) BKA stump complication: Status: Acute He has infection right BKA likely. He has MRSA found. Plan Would continue Vancomycin Since bacteremic would give 4 weeks and if suspicious by surgery for OM continue total six weeks and then po Doxycycline for two to three months. Time Spent With Patient Time: Total time managing care of this patient today ____ minutes.
[2023-01-19 16:23] LABS: Glucose, Whole Blood 117 mg/dL (60-115)
[2023-01-19 20:43] LABS: Glucose, Whole Blood 204 mg/dL (60-115)
[2023-01-19] MEDS: Insulin Lispro 100 UNIT/ML 3 ML VIAL SUBCUT (21:14)
[2023-01-19] MEDS: Insulin Glargine,Hum.rec.anlog 100 UNIT/ML 10 ML VIAL 44 UNIT SUBCUT (21:14)
[2023-01-19] MEDS: Atorvastatin Calcium 80 MG TABLET PO (21:15)
[2023-01-19] MEDS: oxyCODONE HCl Immed Release 5 MG TABLET PO (22:30)
[2023-01-19] MEDS: Enoxaparin Sodium 40 MG/0.4 ML SYRINGE SUBCUT (22:31)
[2023-01-20] VITALS (8 sets, daily range): BP systolic 101–146; BP diastolic 52–65; PULSE 67–81; RESP 15–20; TEMP 36.1–36.8; O2SAT 96–99
[2023-01-20] MEDS: oxyCODONE HCl Immed Release 5 MG TABLET PO ×2 (04:24→17:06)
[2023-01-20] MEDS: Omeprazole 20 MG CAPSULE.DR PO (04:24)
[2023-01-20] MEDS: Acetaminophen 325 MG TABLET 650 MG PO (04:25)
[2023-01-20 06:03] LABS: MANUAL DIFF FLAG NO
[2023-01-20 06:06] LABS: Basophils Absolute Auto 0.1 X10*3/uL (0.0-0.2); Basophils Percent Auto 0.6 % (0-2); Eosinophils Absolute Auto 0.7 X10*3/uL (0.0-0.4); Eosinophils Percent Auto 4.7 % (0-4); Hematocrit 40.9 % (42.0-52.0); Hemoglobin 13.2 g/dl (14.0-18.0); Imm Gran Abs Auto 0.05 X10*3/uL (0.00-0.03); Imm Gran Pct Auto 0.3 % (0.0-0.4); Lymphocytes Absolute Auto 1.9 X10*3/uL (1.2-4.9); Lymphocytes Percent Auto 13.2 % (20-40); Mean Corpuscular HGB Conc 32.3 g/dl (31.0-36.0); Mean Corpuscular Volume 86.8 fL (80.0-98.0); Mean Platelet Volume 9.8 fL (9.4-12.4); Monocytes Absolute Auto 1.3 X10*3/uL (0.1-1.2); Monocytes Percent Auto 9.3 % (2-11); Neutrophils Absolute Auto 10.4 x10*3/uL (2.0-8.3); Neutrophils Percent Auto 71.9 % (45-73); Platelet Count 288 X10*3/uL (160-400); Red Blood Count 4.71 X10*6/uL (4.60-5.80); Red Cell Distribution Width 14.6 % (11.0-16.0); White Blood Count 14.5 X10*3/uL (4.8-10.8)
[2023-01-20 06:21] LABS: Estimated Glomerular Filt Rate > 60
[2023-01-20 06:40] LABS: Vancomycin Trough 11.3 mcg/mL (10.0-20.0)
--- NOTE | 2023-01-20 06:47 | HE.PHANOTE ---
Vancomycin Dosing Level 11.3 today. While level is therpeutic AUC is not in therapeutic levels. Will increase dose to vancomycin 1250 mg Q12H. New expected AUC 470 with a trough of 12.2. Level scheduled to be drawn 01/21 @ 1800. Valerie Poon, SeveroD
[2023-01-20 07:36] LABS: Glucose, Whole Blood 147 mg/dL (60-115)
[2023-01-20] MEDS: Albuterol/Iprat 2.5/0.5MG 3 ML AMPUL.NEB INHALE (08:06)
[2023-01-20] MEDS: vancomycin HCL 1,250 MG in 0.9 % Sodium Chloride 250 ML 166.67 MG IV ×2 (08:22→21:17)
[2023-01-20] MEDS: Furosemide 20 MG TABLET PO (08:25)
[2023-01-20] MEDS: Multivitamin TABLET 1 TAB PO (08:25)
[2023-01-20] MEDS: Isosorbide Mononitrate 30 MG TAB.ER.24H PO (08:25)
[2023-01-20] MEDS: carvediloL 25 MG TABLET PO ×2 (08:26→21:16)
[2023-01-20] MEDS: Aspirin Enteric Coated 81 MG TABLET.DR PO (08:26)
[2023-01-20] MEDS: Furosemide 40 MG TABLET PO (08:26)
[2023-01-20] MEDS: Insulin Lispro 100 UNIT/ML 3 ML VIAL SUBCUT ×6 (08:26→21:17)
[2023-01-20] MEDS: lisinopriL 40 MG TABLET PO (08:26)
--- NOTE | 2023-01-20 09:37 | HO.PM.IMPN ---
Subjective Subjective Date of Service: 01/20/23 Interval History: This history was taken in Maltese from the patient. POD#1 excisional debridement of right BKA stump + wound VAC placement Pain controlled Afebrile Review of Systems Review of Systems: Yes all other systems are reviewed and are negative Physical Exam Vital Signs: Vital Signs: Last Vital Signs Temp 97.4 F 01/20/23 07:22 Pulse 70 01/20/23 08:06 Resp 18 01/20/23 08:06 BP 131/57 L 01/20/23 07:22 Pulse Ox 98 01/20/23 07:22 O2 Del Method Room Air 01/20/23 07:22 BMI result Body Mass Index 25.8 Gen: in no acute distress HEENT: sclera anicteric, moist mucus membranes Neck: supple Lungs: clear to auscultation bilaterally Heart: regular rate and rhythm, no murmurs Abd: soft, non-tender, non-distended Ext: R BKA stump VAC in place Skin: warm/well-perfused Neuro: alert and oriented x3, no focal findings Psych: appropriate affect Objective Data Active Medications Acetaminophen (Acetaminophen 325 Mg Tablet) 650 mg PO Q6H PRN PRN Reason: Pain, Mild (Pain Scale 1-3) Last Admin: 01/20/23 04:25 Dose: 650 mg Documented By: NANCY Albuterol Sulfate (Albuterol Sulfate (0.083%) 2.5 Mg/3 Ml Vial.Neb) 2.5 mg INHALE Q4H PRN PRN Reason: Shortness of Breath Albuterol/Ipratropium (Albuterol/Iprat 2.5/0.5mg 3 Ml Ampul.Neb) 3 ml INHALE RDAILY [facility] Last Admin: 01/20/23 08:06 Dose: 3 ml Documented By: DANO Artificial Tears (Artificial Tears 15 Ml Drops) 2 drop EYE-BOTH QID PRN PRN Reason: Dry Eye(S) Aspirin (Aspirin Enteric Coated 81 Mg Tablet.) 81 mg PO DAILY [facility] Last Admin: 01/20/23 08:26 Dose: 81 mg Documented By: CARIE Atorvastatin Calcium (Atorvastatin Calcium 80 Mg Tablet) 80 mg PO BEDTIME [facility] Last Admin: 01/19/23 21:15 Dose: 80 mg Documented By: TAWNY Carvedilol (Carvedilol 25 Mg Tablet) 25 mg PO BID [facility]; Protocol Last Admin: 01/20/23 08:26 Dose: 25 mg Documented By: CARIE Dextrose (Dextrose 50 % 25 Gm/50 Ml Syringe) 25 gm IVPUSH Q15M PRN; Protocol PRN Reason: per Hypoglycemia Standing Ord. Docusate Sodium (Docusate Sodium 100 Mg Capsule) 100 mg PO DAILY PRN PRN Reason: Constipation Enoxaparin Sodium (Enoxaparin Sodium 40 Mg/0.4 Ml Syringe) 40 mg SUBCUT Q24H [facility] Last Admin: 01/19/23 22:31 Dose: 40 mg Documented By: TAWNY Furosemide (Furosemide 20 Mg Tablet) 20 mg PO DAILY [facility]; Protocol Last Admin: 01/20/23 08:25 Dose: 20 mg Documented By: CARIE Furosemide (Furosemide 40 Mg Tablet) 40 mg PO DAILY [facility]; Protocol Last Admin: 01/20/23 08:26 Dose: 40 mg Documented By: CARIE Glucose (Glucose Gel 15 Gm Gel..Gram.) 15 gm PO Q15M PRN; Protocol PRN Reason: per Hypoglycemia Standing Ord. Vancomycin HCl 1,250 mg/ (Sodium Chloride) 250 mls @ 166.667 mls/hr IV Q12H [facility] Last Admin: 01/20/23 08:22 Dose: 166.67 mls/hr Documented By: CARIE Insulin Glargine (Insulin Glargine,Hum.Rec.Anlog 100 Unit/Ml 10 Ml Vial) 44 unit SUBCUT BEDTIME [facility] Last Admin: 01/19/23 21:14 Dose: 44 unit Documented By: TAWNY Insulin Human Lispro (Insulin Lispro 100 Unit/Ml 3 Ml Vial) 0 unit SUBCUT QIDACHS [facility]; Protocol Last Admin: 01/20/23 08:27 Dose: Not Given Documented By: CARIE Non-Admin Reason: No Insulin Coverage Insulin Human Lispro (Insulin Lispro 100 Unit/Ml 3 Ml Vial) 5 unit SUBCUT TIDAC [facility] Last Admin: 01/20/23 08:26 Dose: 5 unit Documented By: CARIE Isosorbide Mononitrate (Isosorbide Mononitrate 30 Mg Tab.Er.24h) 30 mg PO DAILY [facility]; Protocol Last Admin: 01/20/23 08:25 Dose: 30 mg Documented By: CARIE Lisinopril (Lisinopril 40 Mg Tablet) 40 mg PO DAILY [facility]; Protocol Last Admin: 01/20/23 08:26 Dose: 40 mg Documented By: CARIE Multivitamins/Vitamin C (Multivitamin Tablet) 1 tab PO DAILY [facility] Last Admin: 01/20/23 08:25 Dose: 1 tab Documented By: CARIE Omeprazole (Omeprazole 20 Mg Capsule.Dr) 20 mg PO DAILY@0630 [facility] Last Admin: 01/20/23 04:24 Dose: 20 mg Documented By: NANCY Ondansetron HCl (Ondansetron Hcl 4 Mg/2 Ml Vial) 4 mg IVPUSH Q8H PRN PRN Reason: Nausea and Vomiting Oxycodone HCl (Oxycodone Hcl Immed Release 5 Mg Tablet) 5 mg PO Q6H PRN PRN Reason: Pain, Moderate(Pain Scale 4-6) Last Admin: 01/20/23 04:24 Dose: 5 mg Documented By: NANCY Pharmacy Consult (Consult Rx Vancomycin Dosing) 1 each MISCELLANE DAILY PRN PRN Reason: Consult order Sodium Chloride (0.9 % Sodium Chloride Flush 3 Ml Syringe) 3 ml IVFLUSH QSHIFT [facility] Last Admin: 01/19/23 21:17 Dose: 3 ml Documented By: TAWNY Tiotropium [place] (Tiotropium [place] 2.5 Mcg Inhaler) 2 puff INHALE RDAILY [facility] Last Admin: 01/20/23 08:05 Dose: 2 puff Documented By: DAON Labs 01/20/23 05:58 01/20/23 05:58 Labs: Laboratory Results - last 24 hr 01/19/23 01/19/23 01/19/23 11:11 14:08 16:19 MCV MCH MCHC RDW Plt Count MPV Immature Gran % (Auto) Neut % (Auto) Lymph % (Auto) [place] % (Auto) Eos % (Auto) Baso % (Auto) Lymph # (Auto) [place] # (Auto) Eos # (Auto) Baso # (Auto) Abs Immat Gran (auto) Absolute Neuts (auto) Absolute Nucleated RBC Nucleated RBC % (auto) Estim Creat Clear Calc Estimated GFR POC Glucose 196 H 141 H 117 H Vancomycin Trough 01/19/23 01/20/23 01/20/23 20:35 05:58 05:58 MCV MCH MCHC RDW Plt Count MPV Immature Gran % (Auto) Neut % (Auto) Lymph % (Auto) [place] % (Auto) Eos % (Auto) Baso % (Auto) Lymph # (Auto) [place] # (Auto) Eos # (Auto) Baso # (Auto) Abs Immat Gran (auto) Absolute Neuts (auto) Absolute Nucleated RBC Nucleated RBC % (auto) Estim Creat Clear Calc 99.0 Estimated GFR > 60 POC Glucose 204 H Vancomycin Trough 11.3 01/20/23 01/20/23 05:58 07:25 MCV 86.8 MCH 28.0 MCHC 32.3 RDW 14.6 Plt Count 288 MPV 9.8 Immature Gran % (Auto) 0.3 Neut % (Auto) 71.9 Lymph % (Auto) 13.2 L [place] % (Auto) 9.3 Eos % (Auto) 4.7 H Baso % (Auto) 0.6 Lymph # (Auto) 1.9 [place] # (Auto) 1.3 H Eos # (Auto) 0.7 H Baso # (Auto) 0.1 Abs Immat Gran (auto) 0.05 H Absolute Neuts (auto) 10.4 H Absolute Nucleated RBC 0.000 Nucleated RBC % (auto) 0.0 Estim Creat Clear Calc Estimated GFR POC Glucose 147 H Vancomycin Trough Microbiology 01/14/23 18:51 Blood - Venous Blood Culture - Final No growth after 5 days. 01/18/23 08:32 Blood - Venous Blood Culture - Preliminary No growth after 24 hours. 01/18/23 08:32 Blood - Venous Blood Culture - Preliminary No growth after 24 hours. 01/14/23 18:50 Blood - Venous Blood Culture - Final Methicillin Res Staph Aureus Microbiology Microbiology Results: Microbiology 01/14/23 18:51 Blood Culture - Final Blood - Venous No growth after 5 days. 01/18/23 08:32 Blood Culture - Preliminary Blood - Venous No growth after 24 hours. 01/18/23 08:32 Blood Culture - Preliminary Blood - Venous No growth after 24 hours. Assessment and Plan (1) Infection of amputation site of lower extremity: Status: Acute Plan d7 62yo M with PAD s/p BKA 12/21/22 admitted for infection of BKA stump, found to have MRSA bacteremia R BKA amputation site infection MRSA bacteremia - s/p excisional debridement of right BKA stump + wound VAC placement 01/19/[address] Dia; no intraoperative evidence of osteomyelitis - continue vancomycin 01/14-. ID consulted. TTE without evidence of vegetation. PICC line ordered for long-term IV ABX. Total 4 wk from negative blood culture 01/18 - off pip-bahman, 01/14-01/17 PAD CAD ischemic cardiomyopathy chronic HFrEF - continue aspirin, statin, carvedilol, Imdur, lisinopril DM2 - basal-bolus insulin VTE ppx - LMWH dispo - anticipate return to SNF for STR for VAC, IV ABX In my clinical judgment, the patient requires continued inpatient hospitalization for the following reasons: IV ABX, PICC care, VAC, postop care Time Spent With Patient Time: Total time managing care of this patient today _45___ minutes. Quality Stroke Does the patient have a stroke diagnosis?: No VTE Prior VTE?: No VTE Risk Level:: Surgical - very high VTE Device Contraindication: N/A - Device Ordered VTE Drug Contraindication: Treatment Not Indicated
--- NOTE | 2023-01-20 10:20 | HO.VASCPN ---
Subjective Subjective Date of Service: 01/20/23 Patient reports: no new complaints and feels better Interval history: Patient seen and examined. He is postop day 1 status post debridement and wound VAC placement. Reports that he is doing much better and the pain is significantly improved. Now for postoperative follow-up. Physical Exam Vital Signs: Vital Signs: Last Vital Signs Temp 97.4 F 01/20/23 07:22 Pulse 70 01/20/23 08:06 Resp 18 01/20/23 08:06 BP 131/57 L 01/20/23 07:22 Pulse Ox 98 01/20/23 07:22 O2 Del Method Room Air 01/20/23 07:22 BMI result Body Mass Index 25.8 Const: General: cooperative, healthy appearing and no acute distress Orientation/consciousness: oriented to person, oriented to place and oriented to time HEENT: Head: Yes normal to inspection Neck: Carotids: no bruits Chest: Chest palpation & inspection: normal inspection of the chest Resp: Effort & Inspection: normal respiratory effort and able to speak in complete sentences Auscultation: clear to auscultation bilaterally Cardio: Rate: regular rate Heart sounds: S1 normal heart sound present and S2 normal heart sound present GI: Inspection: Yes normal to inspection Skin: Other: Right BKA stump site no erythema wound VAC intact functioning well. General skin exam: no rashes or lesions noted Wounds: amputation site Neuro: General: oriented to person, oriented to place, oriented to time and CN's II-XI intact bilaterally Extrem: General: Yes normal to inspection, Yes full ROM and Yes no clubbing, cyanosis or edema Psych: Appearance: grossly normal and well kempt Speech and movement: Normal speech and movement present Affect: normal affect Progress Note: A&P Assessment and plan (1) BKA stump complication: Status: Acute Assessment and Plan: In short patient is status post debridement of right BKA stump appears to be doing extremely well with that. I did not appreciate any deeper bony infection at the time of my debridement. Will plan for wound VAC upon discharge. He can see me as outpatient in 2 weeks upon discharge. Thank you for allowing us to assist in his care. If there are any questions or concerns please do not hesitate to contact us. Time Spent With Patient Time: Total time managing care of this patient today ____ minutes. Procedures Date of Service Date of Service: 01/20/23 Quality Stroke Does the patient have a stroke diagnosis?: No VTE Prior VTE?: No VTE Risk Level:: Surgical - very high VTE Device Contraindication: N/A - Device Ordered VTE Drug Contraindication: Treatment Not Indicated
[2023-01-20 11:46] LABS: Glucose, Whole Blood 270 mg/dL (60-115)
--- NOTE | 2023-01-20 14:13 | HO.POSTANES ---
Post Anesthesia Evaluation Post Anesthesia Evaluation Date of Service: 01/20/23 Vital Signs: Vital Signs Temp Pulse Resp BP Pulse Ox O2 Del Method 01/20/23 11:36 96.9 F 70 20 101/52 L 97 Room Air 01/20/23 08:06 70 18 01/20/23 07:22 97.4 F 71 18 131/57 L 98 Room Air 01/20/23 04:00 98.2 F 79 16 141/65 H 97 Room Air Anesthesia: Monitored Mental Status: Awake Pain Control: Satisfactory Nausea/Vomiting: None Hydration: Adequate Anesthesia-Related Issues: No Anes. Related Issues
--- NOTE | 2023-01-20 16:22 | MHC.CM.PN ---
EMR REVIEWED. PT POD #1 STUMP DEBRIDEMENT/WOUND VAC PLACEMENT. AWAITING PICC PLACEMENT. DBV UPDATED VIA [employer]
[2023-01-20 16:36] LABS: Glucose, Whole Blood 167 mg/dL (60-115)
[2023-01-20] MEDS: 0.9 % Sodium Chloride Flush 3 ML SYRINGE IVFLUSH (17:06)
[2023-01-20 20:52] LABS: Glucose, Whole Blood 208 mg/dL (60-115)
[2023-01-20] MEDS: Atorvastatin Calcium 80 MG TABLET PO (21:16)
[2023-01-20] MEDS: Insulin Glargine,Hum.rec.anlog 100 UNIT/ML 10 ML VIAL 44 UNIT SUBCUT (21:16)
[2023-01-20] MEDS: oxyCODONE HCl Immed Release 5 MG TABLET 10 MG PO (22:15)
[2023-01-20] MEDS: Enoxaparin Sodium 40 MG/0.4 ML SYRINGE SUBCUT (22:17)
[2023-01-21] VITALS (9 sets, daily range): BP systolic 116–132; BP diastolic 54–62; PULSE 67–77; RESP 16–20; TEMP 35.2–36.6; O2SAT 94–98
[2023-01-21] MEDS: oxyCODONE HCl Immed Release 5 MG TABLET PO (03:02)
[2023-01-21] MEDS: Omeprazole 20 MG CAPSULE.DR PO (06:01)
[2023-01-21 06:15] LABS: Estimated Glomerular Filt Rate > 60
[2023-01-21] MEDS: oxyCODONE HCl Immed Release 5 MG TABLET 10 MG PO ×3 (06:29→19:25)
[2023-01-21 07:14] LABS: Glucose, Whole Blood 158 mg/dL (60-115)
[2023-01-21] MEDS: Albuterol/Iprat 2.5/0.5MG 3 ML AMPUL.NEB INHALE (07:47)
[2023-01-21] MEDS: Isosorbide Mononitrate 30 MG TAB.ER.24H PO (07:49)
[2023-01-21] MEDS: Furosemide 20 MG TABLET PO (07:49)
[2023-01-21] MEDS: vancomycin HCL 1,250 MG in 0.9 % Sodium Chloride 250 ML 166.67 MG IV ×2 (07:49→18:05)
[2023-01-21] MEDS: 0.9 % Sodium Chloride Flush 3 ML SYRINGE IVFLUSH ×3 (07:50→22:32)
[2023-01-21] MEDS: Insulin Lispro 100 UNIT/ML 3 ML VIAL SUBCUT ×5 (07:50→21:12)
[2023-01-21] MEDS: Aspirin Enteric Coated 81 MG TABLET.DR PO (07:50)
[2023-01-21] MEDS: carvediloL 25 MG TABLET PO ×2 (07:50→21:12)
[2023-01-21] MEDS: lisinopriL 40 MG TABLET PO (07:50)
[2023-01-21] MEDS: Multivitamin TABLET 1 TAB PO (07:50)
[2023-01-21] MEDS: Furosemide 40 MG TABLET PO (07:50)
--- NOTE | 2023-01-21 11:15 | P.DS_ITS ---
DS: Providers Provider Date of Service: 01/21/23 Date of admission: 01/14/23 22:13 Primary care physician: Loli Augustin MD Consults: 01/14/23 22:19 Consult to Vascular Surgery Routine Consulting Provider: [facility] Vascular Services Reason for consultation: Non-healing amputation site Has provider been notified: Yes 01/18/23 08:10 Consult to Infectious Diseases Routine Consulting Provider: [facility] Infectious Disease Reason for consultation: mrsa bacteremia DS: Diagnosis Discharge Diagnosis (1) BKA stump complication: Status: Acute DS: Summary Hospital Course Hospital Course: Date of Service: 01/14/23 Chief Complaint: ? amputation site pain ?Croatian-speaking only, history is obtained with the help of an aeronautical products sales engineer 62-year-old male with past medical history of diabetes, HTN, history of cardiomyopathy, history of CAD, BPH, peripheral arterial disease, recent recent below-knee amputation of the right leg due to nonhealing wound comes into the hospital with worsening infection of the surgical site.? Patient reports that he had his surgery on the , had follow-up with this surgeon, was told that he has eaten infection in his amputation site, was given antibiotics, he has been taking it at the rehab center for several days, was seen by a wound nurse today, and was sent to the hospital for nonhealing. ? He is complaining of 10/10 severe pain in the amputation? site,? Constant, nonradiating, drainage, denies any fever but has chills, reports no chest pain, abdominal pain nausea or vomiting, no diarrhea constipation, no urinary symptoms and no lower extremity edema.? On arrival to the ED patient hemodynamically stable no significant abnormal vitals Labs are significant for WBC count of 13.9, labs otherwise unremarkable, ESR and CRP pending Knee x-ray shows status post below-knee amputation with no evidence of osteomyelitis Patient started on IV antibiotics and will be admitted for further management with consult vascular surgery. Hospital course: 62yo M with PAD s/p BKA 12/21/22 admitted for infection of BKA stump, found to have MRSA bacteremia R BKA amputation site infection admitted to medical floor initially treated with IV vancomycin, and IV Zosyn blood cultures grew MRSA, IV Zosyn discontinued on 01/17, patient underwent excisional debridement of right BKA stump + wound VAC placement 01/19/[address] Dia; no intraoperative evidence of osteomyelitis, repeat blood cultures from are negative, echocardiogram showed no evidence of agitation patient seen by infectious disease and recommend total 4 weeks of IV vancomycin from negative blood cultures 01/18 end date February 15, PICC line placed to follow Q weekly BMP and vanco trough, continue oxycodone and Tylenol for pain control as needed. History of coronary artery disease and ischemic cardiomyopathy with chronic heart failure with reduced EF recommend to continue aspirin, statin, Coreg, Imdur, and lisinopril DM2 stable blood sugars continue basal-and bolus insulin, continue metformin, Januvia held since noted to have stable am blood sugars. Time Spent with Patient Time attestation: Total time managing care of this patient today ____ minutes. Discharge coordination time: Greater than 30 minutes Quality: Safe Use of Opioids Does Pt have an Active Cancer Diagnosis on the Problem List?: No Quality: Stroke Does the patient have a stroke diagnosis?: No Physical Exam Vital Signs: Vital Signs: Last Vital Signs Temp 97.6 F 01/21/23 11:11 Pulse 70 01/21/23 11:11 Resp 16 01/21/23 11:11 BP 116/54 L 01/21/23 11:11 Pulse Ox 98 01/21/23 11:11 O2 Del Method Room Air 01/21/23 11:11 BMI result Body Mass Index 25.8 Const: Other: Gen: in no acute distress HEENT: sclera anicteric, moist mucus membranes Neck: supple Lungs: clear to auscultation bilaterally Heart: regular rate and rhythm, no murmurs Abd: soft, non-tender, non-distended Ext: R BKA stump VAC in place Skin: warm/well-perfused Neuro: alert and oriented x3, no focal findings Psych: appropriate affect DS: Data Data Completed and Pending Completed studies during hospitalization [Text1]: Procedures Detachment at Right Lower Leg, Mid, Open Approach (12/21/22) Drainage of Perineum Skin, External Approach (12/10/20) Labs on day of discharge: Laboratory Results - last 24 hr 01/20/23 01/20/23 01/20/23 11:38 16:32 20:48 Creatinine Estim Creat Clear Calc Estimated GFR POC Glucose 270 H 167 H 208 H 01/21/23 01/21/23 05:25 07:10 Creatinine 0.74 Estim Creat Clear Calc 91.0 Estimated GFR > 60 POC Glucose 158 H Preliminary micro results at discharge 01/18/23 08:32 Blood Culture - Preliminary Blood - Venous No growth after 48 hours. 01/18/23 08:32 Blood Culture - Preliminary Blood - Venous No growth after 48 hours. Discharge Plan Discharge Anticipated Discharge Date/Time: 01/21/23 11:08 Patient Disposition: Xfer SNF Discharge Diagnosis: Right BKA amputation site infection Referrals: Loli Augustin MD [Primary Care Provider] - 1 Week Discharge Medications: New acetaminophen 325 mg Tablet 650 mg PO Q6H PRN (Reason: Pain, Mild (Pain Scale 1-3)) Qty: 30 0RF oxycodone 5 mg Tablet 5 mg PO Q6H PRN (Reason: Pain, Moderate(Pain Scale 4-6)) Qty: 20 0RF Rx Instructions: Partial Fill upon patient request. Continued lisinopril 40 mg tablet 40 mg PO DAILY carvedilol 25 mg tablet 25 mg PO BID Qty: 180 1RF Rx Instructions: must administer with a meal/food atorvastatin 80 mg tablet 80 mg PO BEDTIME aspirin 81 mg tablet,delayed release (DR/EC) 81 mg PO DAILY insulin lispro [Humalog KwikPen Insulin] 100 unit/mL insulin pen 10 unit subcut TIDAC insulin glargine [Lantus Solostar U-100 Insulin] 100 unit/mL (3 mL) insulin pen 44 unit subcut BEDTIME pantoprazole 20 mg tablet,delayed release (DR/EC) 20 mg PO DAILY Spiriva Respimat 2.5 mcg/actuation mist 2 puff INHALATION DAILY Combivent Respimat 20-100 mcg/actuation mist 1 puff INHALATION DAILY multivitamin Tablet 1 tab PO DAILY Artificial Tears(ac-lujg-ihno) 1-0.2-0.2 % Drops 2 drp OPHTHALMIC (EYE) QID PRN (Reason: Dry Eye(S)) ProSource 10-100 gram-kcal/30 mL Liquid 1 ea PO DAILY Arginaid 4.5 gram-156 mg/9.2 gram Powder In Packet 9.2 g PO DAILY albuterol sulfate 2.5 mg /3 mL (0.083 %) solution for nebulization 2.5 mg inhalation Q4H PRN (Reason: SOB) furosemide 20 mg tablet 20 mg PO DAILY furosemide [Lasix] 40 mg tablet 40 mg PO DAILY isosorbide mononitrate 30 mg Tablet Extended Release 24 Hr 30 mg PO DAILY Qty: 30 0RF Protocol: Hold for SBP< HOLD for SBP < : 90 metformin 1,000 mg tablet 1,000 mg PO BIDWM Discontinued cephalexin 500 mg Capsule 500 mg PO BID Rx Instructions: started 01/08/23 to end 01/18/23 Jardiance 25 mg tablet 25 mg PO DAILY Discharge Orders: Discharge Order (Routine); Ordered 01/21/23 Ordered By: Joel Mckeon Diet: Diabetic diet Activity on Discharge: As tolerated Stand Alone Forms: Patient Portal Discharge page Activity Restrictions/Additional Instructions: Please place wound VAC to right BKA stump. Medium black foam. Please place VAC settings at 125 mmHg continuous low suction. Please have patient follow-up with Dr. Dia in approximately 2 weeks time for stump check. Care Plan Goals: IV vancomycin 1250 mg q.12 hours follow vanco trough Check BMP Q weekly Follow blood sugar closely, stable blood sugars Januvia discontinued resume if noted to have elevated blood sugars Take Tylenol and oxycodone q.6 hours as needed for pain Health Concerns: Continue all other home medication Plan of Treatment: Outpatient follow-up with Dr. Dia and primary care physician Assessment: As above
[2023-01-21 11:26] LABS: Glucose, Whole Blood 174 mg/dL (60-115)
--- NOTE | 2023-01-21 13:27 | HO.VASCPN ---
Subjective Subjective Date of Service: 01/21/23 Patient reports: no new complaints and feels better Interval history: Patient seen and examined. No significant events over night. Doing extremely well with wound VAC. Pain well controlled. He has a PICC line. He is eagerly awaiting discharge. Physical Exam Vital Signs: Vital Signs: Last Vital Signs Temp 97.6 F 01/21/23 11:11 Pulse 70 01/21/23 11:11 Resp 16 01/21/23 11:11 BP 116/54 L 01/21/23 11:11 Pulse Ox 98 01/21/23 11:11 O2 Del Method Room Air 01/21/23 11:11 BMI result Body Mass Index 25.8 Const: General: cooperative, healthy appearing and no acute distress Orientation/consciousness: oriented to person, oriented to place and oriented to time HEENT: Head: Yes normal to inspection Neck: Carotids: no bruits Chest: Chest palpation & inspection: normal inspection of the chest Resp: Effort & Inspection: normal respiratory effort and able to speak in complete sentences Auscultation: clear to auscultation bilaterally Cardio: Rate: regular rate Heart sounds: S1 normal heart sound present and S2 normal heart sound present GI: Inspection: Yes normal to inspection Skin: Other: Right BKA stump wound VAC intact. General skin exam: no rashes or lesions noted Wounds: no wounds Neuro: General: oriented to person, oriented to place, oriented to time and CN's II-XI intact bilaterally Extrem: General: Yes normal to inspection, Yes full ROM and Yes no clubbing, cyanosis or edema Psych: Appearance: grossly normal and well kempt Speech and movement: Normal speech and movement present Affect: normal affect Progress Note: A&P Assessment and plan (1) Below-knee amputation of right lower extremity: Status: Acute Assessment and Plan: In short patient has undergone revision of that stump. Debridement has gone extremely well along with wound VAC placement. Will need long-term IV antibiotics along with the VAC. Stable from my perspective for discharge. Upon discharge he can see me as an outpatient in approximately 2 weeks time. Thank you for allowing me to assist in his care Time Spent With Patient Time: Total time managing care of this patient today ____ minutes. Procedures Date of Service Date of Service: 01/21/23 Quality Stroke Does the patient have a stroke diagnosis?: No VTE Prior VTE?: No VTE Risk Level:: Surgical - very high VTE Device Contraindication: N/A - Device Ordered VTE Drug Contraindication: Treatment Not Indicated
--- NOTE | 2023-01-21 14:42 | MHC.CM.PN ---
Patient is tentatively set-up for d/c to [facility] for 6PM after evening dose of antibiotics. Currently patient is awaiting PICC line placement.
[2023-01-21 15:59] LABS: Glucose, Whole Blood 198 mg/dL (60-115)
--- NOTE | 2023-01-21 17:47 | P.PICC_ITS ---
PICC Line Insertion NPICC INSERTED Diagnosis: [RIGHT BKA INFECTION] Indication: [HALF-WAY ANTIBX] Pertinent Labs: [REVIEWED] Technique: Following informed consent including risks, benefits and alternatives and using sterile technique including cap and mask, sterile gown, glove and drape, the LEFT arm was prepped and draped in the usual sterile fashion of full barrier technique with CHG. Following completion of [place] Protocol the skin and soft tissues were anesthetized with 1% Lidocaine plain. Using ultrasound guidance, LEFT BASILIC vein access was obtained ON SECOND ATTEMPT BY BRIANNA HOGAN RN. Over an 0.018 wire through peel-away sheath, a 4FR SINGLE LUMEN PASV PICC line was positioned. Catheter length is 42CM internal length, 2CM e xternal length, for a total trimmed length of 44CM. The procedure was performed in RM. 272. Tip verification was performed by Brea Boyle with Sherlock 3CG. Tip located in SVC. Ultrasound was used to document vein patency and for needle entry. A formal ultrasound picture and cardiac rhythm strip was recorded. Vascular Fretted Instruments Inspector has released the line for use and it is currently dressed with a StatLock, Tegaderm, and CHG disc. Verification has been performed for blood return and line patency. Arm Circumference: 30.5CM Equipment: [employer] POWERPICC SOLO Catheter Type: 4FR SINGLE LUMEN PASV PICC Lot #: [id number]
[2023-01-21 18:01] LABS: Glucose, Whole Blood 137 mg/dL (60-115)
--- NOTE | 2023-01-21 18:13 | HO.PM.IMPN ---
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 Review of Systems All other system reviewed and negative. Physical Exam Vital Signs: Vital Signs: Last Vital Signs Temp 95.3 F L 01/21/23 15:49 Pulse 72 01/21/23 15:49 Resp 20 01/21/23 15:49 BP 127/59 L 01/21/23 15:49 Pulse Ox 97 01/21/23 15:49 O2 Del Method Room Air 01/21/23 15:49 BMI result Body Mass Index 25.8 Const: Other: Gen: in no acute distress HEENT: sclera anicteric, moist mucus membranes Neck: supple Lungs: clear to auscultation bilaterally Heart: regular rate and rhythm, no murmurs Abd: soft, non-tender, non-distended Ext: R BKA stump VAC in place Skin: warm/well-perfused Neuro: alert and oriented x3, no focal findings Psych: appropriate affect Objective Data Active Medications Acetaminophen (Acetaminophen 325 Mg Tablet) 650 mg PO Q6H PRN PRN Reason: Pain, Mild (Pain Scale 1-3) Last Admin: 01/20/23 04:25 Dose: 650 mg Documented By: NANCY Albuterol Sulfate (Albuterol Sulfate (0.083%) 2.5 Mg/3 Ml Vial.Neb) 2.5 mg INHALE Q4H PRN PRN Reason: Shortness of Breath Albuterol/Ipratropium (Albuterol/Iprat 2.5/0.5mg 3 Ml Ampul.Neb) 3 ml INHALE RDAILY [facility] Last Admin: 01/21/23 07:47 Dose: 3 ml Documented By: DAMIAN Artificial Tears (Artificial Tears 15 Ml Drops) 2 drop EYE-BOTH QID PRN PRN Reason: Dry Eye(S) Aspirin (Aspirin Enteric Coated 81 Mg Tablet.) 81 mg PO DAILY [facility] Last Admin: 01/21/23 07:50 Dose: 81 mg Documented By: MAGALIE Atorvastatin Calcium (Atorvastatin Calcium 80 Mg Tablet) 80 mg PO BEDTIME [facility] Last Admin: 01/20/23 21:16 Dose: 80 mg Documented By: ADILIA Carvedilol (Carvedilol 25 Mg Tablet) 25 mg PO BID KARI; Protocol Last Admin: 01/21/23 07:50 Dose: 25 mg Documented By: MAGALIE Dextrose (Dextrose 50 % 25 Gm/50 Ml Syringe) 25 gm IVPUSH Q15M PRN; Protocol PRN Reason: per Hypoglycemia Standing Ord. Docusate Sodium (Docusate Sodium 100 Mg Capsule) 100 mg PO DAILY PRN PRN Reason: Constipation Enoxaparin Sodium (Enoxaparin Sodium 40 Mg/0.4 Ml Syringe) 40 mg SUBCUT Q24H [facility] Last Admin: 01/20/23 22:17 Dose: 40 mg Documented By: ADILIA Furosemide (Furosemide 20 Mg Tablet) 20 mg PO DAILY [facility]; Protocol Last Admin: 01/21/23 07:49 Dose: 20 mg Documented By: MAGALIE Furosemide (Furosemide 40 Mg Tablet) 40 mg PO DAILY [facility]; Protocol Last Admin: 01/21/23 07:50 Dose: 40 mg Documented By: MAGALIE Glucose (Glucose Gel 15 Gm Gel..Gram.) 15 gm PO Q15M PRN; Protocol PRN Reason: per Hypoglycemia Standing Ord. Vancomycin HCl 1,250 mg/ (Sodium Chloride) 250 mls @ 166.667 mls/hr IV Q12H [facility] Last Admin: 01/21/23 18:05 Dose: 166.67 mls/hr Documented By: MAGALIE Insulin Glargine (Insulin Glargine,Hum.Rec.Anlog 100 Unit/Ml 10 Ml Vial) 44 unit SUBCUT BEDTIME [facility] Last Admin: 01/20/23 21:16 Dose: 44 unit Documented By: ADILIA Insulin Human Lispro (Insulin Lispro 100 Unit/Ml 3 Ml Vial) 0 unit SUBCUT QIDACHS [facility]; Protocol Last Admin: 01/21/23 18:02 Dose: Not Given Documented By: MAGALIE Non-Admin Reason: No Insulin Coverage Insulin Human Lispro (Insulin Lispro 100 Unit/Ml 3 Ml Vial) 5 unit SUBCUT TIDAC [facility] Last Admin: 01/21/23 18:02 Dose: Not Given Documented By: MAGALIE Non-Admin Reason: No Insulin Coverage Isosorbide Mononitrate (Isosorbide Mononitrate 30 Mg Tab.Er.24h) 30 mg PO DAILY [facility]; Protocol Last Admin: 01/21/23 07:49 Dose: 30 mg Documented By: MAGALIE Lisinopril (Lisinopril 40 Mg Tablet) 40 mg PO DAILY [facility]; Protocol Last Admin: 01/21/23 07:50 Dose: 40 mg Documented By: MAGALIE Multivitamins/Vitamin C (Multivitamin Tablet) 1 tab PO DAILY [facility] Last Admin: 01/21/23 07:50 Dose: 1 tab Documented By: MAGALIE Omeprazole (Omeprazole 20 Mg Capsule.Dr) 20 mg PO DAILY@0630 [facility] Last Admin: 01/21/23 06:01 Dose: 20 mg Documented By: NAUN-JOZEB Ondansetron HCl (Ondansetron Hcl 4 Mg/2 Ml Vial) 4 mg IVPUSH Q8H PRN PRN Reason: Nausea and Vomiting Oxycodone HCl (Oxycodone Hcl Immed Release 5 Mg Tablet) 5 mg PO Q6H PRN PRN Reason: Pain, Moderate(Pain Scale 4-6) Last Admin: 01/21/23 03:02 Dose: 5 mg Documented By: NITHYAZELauren Oxycodone HCl (Oxycodone Hcl Immed Release 5 Mg Tablet) 10 mg PO Q6H PRN PRN Reason: Pain, Severe (Pain Scale 7-10) Last Admin: 01/21/23 12:47 Dose: 10 mg Documented By: MAGALIE Pharmacy Consult (Consult Rx Vancomycin Dosing) 1 each MISCELLANE DAILY PRN PRN Reason: Consult order Sodium Chloride (0.9 % Sodium Chloride Flush 3 Ml Syringe) 3 ml IVFLUSH QSHIFT [facility] Last Admin: 01/21/23 18:05 Dose: 3 ml Documented By: MAGALIE Sodium Chloride (0.9 % Sodium Chloride Flush 10 Ml Syringe) 5 ml IVFLUSH TID [facility] Tiotropium [place] (Tiotropium [place] 2.5 Mcg Inhaler) 2 puff INHALE RDAILY [facility] Last Admin: 01/21/23 07:55 Dose: 2 puff Documented By: BLASCL Labs 01/20/23 05:58 01/21/23 05:25 Labs: Laboratory Results - last 24 hr 01/20/23 01/21/23 01/21/23 20:48 05:25 07:10 Estim Creat Clear Calc 91.0 Estimated GFR > 60 POC Glucose 208 H 158 H 01/21/23 01/21/23 01/21/23 11:14 15:54 17:57 Estim Creat Clear Calc Estimated GFR POC Glucose 174 H 198 H 137 H Assessment and Plan (1) Infection of amputation site of lower extremity: Status: Acute Plan 62yo M with PAD s/p BKA 12/21/22 admitted for infection of BKA stump, found to have MRSA bacteremia R BKA amputation site infection admitted to medical floor initially treated with IV vancomycin, and IV Zosyn blood cultures grew MRSA, IV Zosyn discontinued on 01/17, patient underwent excisional debridement of right BKA stump + wound VAC placement 01/19/[address] Dia; no intraoperative evidence of osteomyelitis, repeat blood cultures from 01/18 are negative, echocardiogram showed no evidence of agitation patient seen by infectious disease and recommend total 4 weeks of IV vancomycin from negative blood cultures 01/18 end date February 15, PICC line placed today, continue oxycodone and Tylenol for pain control as needed. History of coronary artery disease and ischemic cardiomyopathy with chronic heart failure with reduced EF , no chest pain, no shortness of breath continue aspirin, statin, Coreg, Imdur, and lisinopril DM2 stable blood sugars continue basal-and bolus insulin, continue metformin, Januvia held since noted to have stable am blood sugars. VTE ppx on LMWH dispo anticipate return to SNF for STR for VAC, IV ABX In my clinical judgment, the patient requires continued inpatient hospitalization for the following reasons: IV ABX, PICC care, VAC, postop care Time Spent With Patient Time: Total time managing care of this patient today ____ minutes. Quality Stroke Does the patient have a stroke diagnosis?: No VTE Prior VTE?: No VTE Risk Level:: Surgical - very high VTE Device Contraindication: N/A - Device Ordered VTE Drug Contraindication: Treatment Not Indicated
[2023-01-21 19:24] LABS: Glucose, Whole Blood 210 mg/dL (60-115)
[2023-01-21] MEDS: 0.9 % Sodium Chloride Flush 10 ML SYRINGE 5 ML IVFLUSH (19:40)
[2023-01-21] MEDS: Atorvastatin Calcium 80 MG TABLET PO (21:12)
[2023-01-21] MEDS: Insulin Glargine,Hum.rec.anlog 100 UNIT/ML 10 ML VIAL 44 UNIT SUBCUT (21:12)
[2023-01-21] MEDS: Enoxaparin Sodium 40 MG/0.4 ML SYRINGE SUBCUT (22:32)
[2023-01-22] MEDS: oxyCODONE HCl Immed Release 5 MG TABLET PO (00:23)
[2023-01-22] MEDS: oxyCODONE HCl Immed Release 5 MG TABLET 10 MG PO ×2 (02:57→09:13)
[2023-01-22 03:55] VITALS: BP 136/64; PULSE 72; RESP 16; TEMP 36.1; O2SAT 98
[2023-01-22] MEDS: Omeprazole 20 MG CAPSULE.DR PO (05:34)
[2023-01-22] MEDS: vancomycin HCL 1,250 MG in 0.9 % Sodium Chloride 250 ML 166.67 MG IV (05:34)
[2023-01-22 06:58] LABS: Creatinine Clr Calc Pharmacy 86.3; Estimated Glomerular Filt Rate > 60
[2023-01-22 07:13] VITALS: BP 126/61; PULSE 64; RESP 16; TEMP 36.3; O2SAT 98
[2023-01-22 07:38] LABS: Glucose, Whole Blood 134 mg/dL (60-115)
[2023-01-22 07:39] VITALS: PULSE 72; RESP 18; O2SAT 95
[2023-01-22] MEDS: Albuterol/Iprat 2.5/0.5MG 3 ML AMPUL.NEB INHALE (07:39)
[2023-01-22] MEDS: lisinopriL 40 MG TABLET PO (07:53)
[2023-01-22] MEDS: carvediloL 25 MG TABLET PO (07:53)
[2023-01-22] MEDS: Aspirin Enteric Coated 81 MG TABLET.DR PO (07:53)
[2023-01-22] MEDS: Multivitamin TABLET 1 TAB PO (07:53)
[2023-01-22] MEDS: Furosemide 40 MG TABLET PO (07:54)
[2023-01-22] MEDS: Furosemide 20 MG TABLET PO (07:54)
[2023-01-22] MEDS: Isosorbide Mononitrate 30 MG TAB.ER.24H PO (07:54)
[2023-01-22] MEDS: 0.9 % Sodium Chloride Flush 10 ML SYRINGE 5 ML IVFLUSH (07:55)
--- NOTE | 2023-01-22 09:12 | P.DS_ITS ---
DS: Providers Provider Date of Service: 01/22/23 Date of admission: 01/14/23 22:13 Primary care physician: Loli Augustin MD Consults: 01/14/23 22:19 Consult to Vascular Surgery Routine Consulting Provider: [facility] [place] Vascular Services Reason for consultation: Non-healing amputation site Has provider been notified: Yes 01/18/23 08:10 Consult to Infectious Diseases Routine Consulting Provider: [facility] [place] Infectious Disease Reason for consultation: mrsa bacteremia DS: Diagnosis Discharge Diagnosis (1) Infection of amputation site of lower extremity: Status: Acute DS: Summary Hospital Course Hospital Course: Date of Service: 01/14/23 Chief Complaint: ? amputation site pain ?Guamanian-speaking only, history is obtained with the help of an customer support executive 62-year-old male with past medical history of diabetes, HTN, history of cardiomyopathy, history of CAD, BPH, peripheral arterial disease, recent recent below-knee amputation of the right leg due to nonhealing wound comes into the hospital with worsening infection of the surgical site.? Patient reports that he had his surgery on the , had follow-up with this surgeon, was told that he has eaten infection in his amputation site, was given antibiotics, he has been taking it at the rehab center for several days, was seen by a wound nurse today, and was sent to the hospital for nonhealing. ? He is complaining of 10/10 severe pain in the amputation? site,? Constant, nonradiating, drainage, denies any fever but has chills, reports no chest pain, abdominal pain nausea or vomiting, no diarrhea constipation, no urinary symptoms and no lower extremity edema.? On arrival to the ED patient hemodynamically stable no significant abnormal vitals Labs are significant for WBC count of 13.9, labs otherwise unremarkable, ESR and CRP pending Knee x-ray shows status post below-knee amputation with no evidence of osteomyelitis Patient started on IV antibiotics and will be admitted for further management with consult vascular surgery. Hospital course: 62yo M with PAD s/p BKA 12/21/22 admitted for infection of BKA stump, found to have MRSA bacteremia R BKA amputation site infection admitted to medical floor initially treated with IV vancomycin, and IV Zosyn blood cultures grew MRSA, IV Zosyn discontinued on 01/17, patient underwent excisional debridement of right BKA stump + wound VAC placement 01/19/[address] Dia; no intraoperative evidence of osteomyelitis, repeat blood cultures from 01/18 are negative, echocardiogram showed no evidence of vegetation patient seen by infectious disease and recommend total 4 weeks of IV vancomycin from negative blood cultures 01/18 end date February 15, PICC line placed, follow Q weekly BMP and vanco trough, continue oxycodone and Tylenol for pain control as needed. History of coronary artery disease and ischemic cardiomyopathy with chronic heart failure with reduced EF recommend to continue aspirin, statin, Coreg, Imdur, and lisinopril DM2 stable blood sugars continue basal-and bolus insulin, continue metformin, Januvia held since noted to have stable am blood sugars. Time Spent with Patient Time attestation: Total time managing care of this patient today ____ minutes. Discharge coordination time: Greater than 30 minutes Quality: Safe Use of Opioids Does Pt have an Active Cancer Diagnosis on the Problem List?: No Quality: Stroke Does the patient have a stroke diagnosis?: No Physical Exam Vital Signs: Vital Signs: Last Vital Signs Temp 97.4 F 01/22/23 07:13 Pulse 72 01/22/23 07:39 Resp 18 01/22/23 07:39 BP 126/61 01/22/23 07:13 Pulse Ox 98 01/22/23 07:13 O2 Del Method Room Air 01/22/23 07:13 BMI result Body Mass Index 25.8 Const: Other: Gen: in no acute distress HEENT: sclera anicteric, moist mucus membranes Neck: supple Lungs: clear to auscultation bilaterally Heart: regular rate and rhythm, no murmurs Abd: soft, non-tender, non-distended Ext: R BKA stump VAC in place Skin: warm/well-perfused Neuro: alert and oriented x3, no focal findings Psych: appropriate affect DS: Data Data Completed and Pending Completed studies during hospitalization [Text1]: Procedures Detachment at Right Lower Leg, Mid, Open Approach (12/21/22) Drainage of Perineum Skin, External Approach (12/10/20) Labs on day of discharge: Laboratory Results - last 24 hr 01/21/23 01/21/23 01/21/23 11:14 15:54 17:57 Creatinine Estim Creat Clear Calc Estimated GFR POC Glucose 174 H 198 H 137 H 01/21/23 01/22/23 01/22/23 19:13 05:47 07:15 Creatinine 0.78 Estim Creat Clear Calc 86.3 Estimated GFR > 60 POC Glucose 210 H 134 H Preliminary micro results at discharge 01/18/23 08:32 Blood Culture - Preliminary Blood - Venous No growth after 48 hours. 01/18/23 08:32 Blood Culture - Preliminary Blood - Venous No growth after 48 hours. Discharge Plan Discharge Anticipated Discharge Date/Time: 01/22/23 09:11 Patient Disposition: Xfer [facility] Discharge Diagnosis: Right BKA amputation site infection Referrals: Loli Augustin MD [Primary Care Provider] - 1 Week Discharge Medications: New acetaminophen 325 mg Tablet 650 mg PO Q6H PRN (Reason: Pain, Mild (Pain Scale 1-3)) Qty: 30 0RF oxycodone 5 mg Tablet 5 mg PO Q6H PRN (Reason: Pain, Moderate(Pain Scale 4-6)) Qty: 20 0RF Rx Instructions: Partial Fill upon patient request. Continued lisinopril 40 mg tablet 40 mg PO DAILY carvedilol 25 mg tablet 25 mg PO BID Qty: 180 1RF Rx Instructions: must administer with a meal/food atorvastatin 80 mg tablet 80 mg PO BEDTIME aspirin 81 mg tablet,delayed release (DR/EC) 81 mg PO DAILY insulin lispro [Humalog KwikPen Insulin] 100 unit/mL insulin pen 10 unit subcut TIDAC insulin glargine [Lantus Solostar U-100 Insulin] 100 unit/mL (3 mL) insulin pen 44 unit subcut BEDTIME pantoprazole 20 mg tablet,delayed release (DR/EC) 20 mg PO DAILY Spiriva Respimat 2.5 mcg/actuation mist 2 puff INHALATION DAILY Combivent Respimat 20-100 mcg/actuation mist 1 puff INHALATION DAILY multivitamin Tablet 1 tab PO DAILY Artificial Tears([id number]) 1-0.2-0.2 % Drops 2 drp OPHTHALMIC (EYE) QID PRN (Reason: Dry Eye(S)) ProSource 10-100 gram-kcal/30 mL Liquid 1 ea PO DAILY Arginaid 4.5 gram-156 mg/9.2 gram Powder In Packet 9.2 g PO DAILY albuterol sulfate 2.5 mg /3 mL (0.083 %) solution for nebulization 2.5 mg inhalation Q4H PRN (Reason: SOB) furosemide 20 mg tablet 20 mg PO DAILY furosemide [Lasix] 40 mg tablet 40 mg PO DAILY isosorbide mononitrate 30 mg Tablet Extended Release 24 Hr 30 mg PO DAILY Qty: 30 0RF Protocol: Hold for SBP< HOLD for SBP < : 90 metformin 1,000 mg tablet 1,000 mg PO BIDWM Discontinued cephalexin 500 mg Capsule 500 mg PO BID Rx Instructions: started 01/08/23 to end 01/18/23 Jardiance 25 mg tablet 25 mg PO DAILY Discharge Orders: Discharge Order (Routine); Ordered 01/22/23 Ordered By: Joel Mckeon Diet: Diabetic diet Activity on Discharge: As tolerated Stand Alone Forms: Patient Portal Discharge page Activity Restrictions/Additional Instructions: Please place wound VAC to right BKA stump. Medium black foam. Please place VAC settings at 125 mmHg continuous low suction. Please have patient follow-up with Dr. Dia in approximately 2 weeks time for stump check. Care Plan Goals: IV vancomycin 1250 mg q.12 hours follow vanco trough Check BMP Q weekly Follow blood sugar closely, stable blood sugars Januvia discontinued resume if noted to have elevated blood sugars Take Tylenol and oxycodone q.6 hours as needed for pain Health Concerns: Continue all other home medication Plan of Treatment: Outpatient follow-up with Dr. Dia and primary care physician Assessment: As above
--- NOTE | 2023-01-22 09:29 | HO.VASCPN ---
Subjective Subjective Date of Service: 01/22/23 Patient reports: no new complaints and feels better Interval history: Patient seen and examined. No significant events overnight. Doing well with the wound VAC. Awaiting rehab placement. Physical Exam Vital Signs: Vital Signs: Last Vital Signs Temp 97.4 F 01/22/23 07:13 Pulse 72 01/22/23 07:39 Resp 18 01/22/23 07:39 BP 126/61 01/22/23 07:13 Pulse Ox 98 01/22/23 07:13 O2 Del Method Room Air 01/22/23 07:13 BMI result Body Mass Index 25.8 Const: General: cooperative, healthy appearing and no acute distress Orientation/consciousness: oriented to person, oriented to place and oriented to time HEENT: Head: Yes normal to inspection Neck: Carotids: no bruits Chest: Chest palpation & inspection: normal inspection of the chest Resp: Effort & Inspection: normal respiratory effort and able to speak in complete sentences Auscultation: clear to auscultation bilaterally Cardio: Rate: regular rate Heart sounds: S1 normal heart sound present and S2 normal heart sound present GI: Inspection: Yes normal to inspection Skin: Other: Wound VAC removed and dressing changed. Clean with good granulation base. General skin exam: no rashes or lesions noted Wounds: no wounds Neuro: General: oriented to person, oriented to place, oriented to time and CN's II-XI intact bilaterally Extrem: General: Yes normal to inspection, Yes full ROM and Yes no clubbing, cyanosis or edema Psych: Appearance: grossly normal and well kempt Speech and movement: Normal speech and movement present Affect: normal affect Progress Note: A&P Assessment and plan (1) Below-knee amputation of right lower extremity: Status: Acute Assessment and Plan: In short patient is doing well with debridement and wound VAC. plan for transfer to rehab. Can see us as an outpatient in approximately 2 weeks time. Continue with wound VAC. thank you for allowing us to assist in his care. Time Spent With Patient Time: Total time managing care of this patient today ____ minutes. Procedures Date of Service Date of Service: 01/22/23 Quality Stroke Does the patient have a stroke diagnosis?: No VTE Prior VTE?: No VTE Risk Level:: Surgical - very high VTE Device Contraindication: N/A - Device Ordered VTE Drug Contraindication: Treatment Not Indicated
--- NOTE | 2023-01-22 11:42 | MHC.CM.PN ---
DP: PT HAS BEEN MEDICALLY CLEARED FOR DC BACK TO [facility] FOR STR. RN AWARE. SON HENRY NOTIFIED. CENTER MADE AWARE. S TRANSPORT BOOKED FOR 10:30 AM VIA [facility]
== END 2023-01-22 10:50 | disposition skilled nursing facility (03) | DRG 317 ==
LOC: HO.ED 21:11 → HO.EDOVER 22:30 → HO.S3 23:16
PROVIDERS: Surgery Vascular Surgery; Admitting Provider Internal Medicine; Emergency Provider Emergency Medicine; PCP Family Medicine; Referring Provider Family Medicine; Visit Provider Hospitalist
PROC: 0KBQ0ZZ Excision of Right Upper Leg Muscle, Open Approach (ICD-10-PCS; principal; 2023-01-19 12:10)
PROC: 02HV33Z Insertion of Infusion Device into Superior Vena Cava, Percutaneous Approach (ICD-10-PCS; principal; 2023-01-21 15:30)
DX: T87.43 Infection of amputation stump, right lower extremity (principal); E11.51 Type 2 diabetes mellitus with diabetic peripheral angiopathy without gangrene; R78.81 Bacteremia; I50.22 Chronic systolic (congestive) heart failure; B95.62 Methicillin resistant Staphylococcus aureus infection as the cause of diseases classified elsewhere; E78.00 Pure hypercholesterolemia, unspecified; F17.210 Nicotine dependence, cigarettes, uncomplicated; G89.18 Other acute postprocedural pain; N40.0 Benign prostatic hyperplasia without lower urinary tract symptoms; I25.10 Atherosclerotic heart disease of native coronary artery without angina pectoris; I25.5 Ischemic cardiomyopathy; Z71.6 Tobacco abuse counseling; Z79.4 Long term (current) use of insulin; Z79.84 Long term (current) use of oral hypoglycemic drugs; Z79.899 Other long term (current) drug therapy
CPT/HCPCS: 36415; 36573; 71045; 73560; 80048; 80076; 80202; 81001; 81003; 82565; 82947; 83605; 83690; 85025; 85027; 85652; 86140; 87040; 87077; 87186; 87205; 93306; 94640; 99285; C1751; J0171; J0330; J1650; J2250; J2270; J2543; J2795; J3010; J3370; J3371; Q9957

== ENCOUNTER 2023-01-14 22:13 | Outpatient (BNV) | payer MEDICAID, SELFPAY | END 2023-01-18 07:00 | PROVIDERS: Admitting Provider Internal Medicine; Emergency Provider Emergency Medicine; PCP Family Medicine; Visit Provider Internal Medicine Cardiovascular Disease | DX: I35.8 Other nonrheumatic aortic valve disorders (principal); I36.1 Nonrheumatic tricuspid (valve) insufficiency | CPT/HCPCS: 93306 ==

== ENCOUNTER → 2023-01-14 22:13 | Outpatient (BNV) | payer MEDICAID, SELFPAY | PROVIDERS: Admitting Provider Internal Medicine; Emergency Provider Emergency Medicine; PCP Family Medicine; Visit Provider Surgery Vascular Surgery | DX: T87.53 Necrosis of amputation stump, right lower extremity (principal); Z89.511 Acquired absence of right leg below knee | CPT/HCPCS: 11043; 97605; 99222; 99232 ==

== ENCOUNTER → 2023-01-14 22:13 | Outpatient (BNV) | payer MEDICAID, SELFPAY | PROVIDERS: Admitting Provider Internal Medicine; Emergency Provider Emergency Medicine; PCP Family Medicine; Visit Provider Internal Medicine | DX: T87.40 Infection of amputation stump, unspecified extremity (principal); T87.9 Unspecified complications of amputation stump | CPT/HCPCS: 99223; 99232; 99233; 99239 ==

== ENCOUNTER → 2023-01-14 22:13 | Outpatient (BNV) | payer MEDICAID, SELFPAY | PROVIDERS: Admitting Provider Internal Medicine; Emergency Provider Emergency Medicine; PCP Family Medicine; Visit Provider Internal Medicine | DX: T87.40 Infection of amputation stump, unspecified extremity (principal); T87.9 Unspecified complications of amputation stump | CPT/HCPCS: 99222 ==

== ENCOUNTER 2023-02-02 09:42 | Outpatient (AMB) | payer MEDICAID, SELFPAY ==
--- NOTE | 2023-02-02 09:52 | MHC.OFFVIS ---
Intake Intake Visit Reasons: 2 week follow up 01/19/2023 BKA debridement Intake Note: Patient is here for a 2 week follow up 01/19/2023 BKA debridement, pt c/o pain on stump Latent Print Examiner Required: Yes Latent Print Examiner Name: Olga Epstein GERARDGriselda Allergies No Known Allergies Allergy (Verified 02/02/23 09:57) HPI 2 week follow up 01/19/2023 BKA debridement HPI Details Very complex and noncompliance 62-year-old gentleman presents for nonhealing right BKA stump follow-up. He had undergone excisional debridement and wound VAC placement on 01/19/2023. Subsequent to that he has been in a facility. He has been fairly noncompliant and often Rips off the VAC dressing. In general he reports minimal pain. He is concerned about the overall stump. He now presents for follow-up. [facility] Medical History Abscess, perineum Asthma Below-knee amputation of right lower extremity BPH (benign prostatic hyperplasia) CAD (coronary artery disease) Cardiomyopathy Cardiomyopathy Coronary artery disease Diabetes Essential hypertension High cholesterol History of peripheral vascular disease HTN (hypertension) PAD (peripheral artery disease) Type 2 diabetes mellitus with unspecified complications Surgical History History of cardiac cath History of surgical removal of pilonidal cyst Hx of hand surgery Hx of hand surgery Hx of varicose vein stripping S/P angiogram of extremity Family History Father No problems noted. Mother Diabetes HTN (hypertension) Sister No problems noted. Sister Diabetes HTN (hypertension) Sister No problems noted. Social History Household Members: None Housing: Apartment Housing Other:: elderly housing Are you a primary healthcare corporate account director to a significant other at home: No Do you presently have visiting nurse or other home services: Yes (FOOD SERVICE ATTENDANT-son Rommel) Alcohol intake: never Patient Tobacco Use Status: Current everyday Tobacco user Tobacco use type: Cigarette Cigarette Packs Per Day: 0.5 Cigarettes Per Day: 10 Years Smoked: 15+/- Second Hand Smoke Exposure: No Advance Directives Date on File: 12/10/20 service: No Current occupational status: disabled Review of Systems Const All systems reviewed & are unremarkable except as noted in HPI and below Reports no additional complaints ENT Reports Normal hearing present Card Denies chest pain, Denies chest pain at rest, Denies chest pain with activity and Denies pedal edema Resp Denies cough GI Denies abdominal pain Musc Denies abnormal gait, Denies muscle cramps and Denies radiating pain into limb Skin/Breast Denies skin ulcer and Denies wounds Neuro Reports Normal hearing present and Denies abnormal gait Psych Reports no additional complaints Physical Exam Const General: cooperative, healthy appearing and comfortable Orientation/consciousness: oriented to person, oriented to place and oriented to time HEENT Head: Yes normal to inspection Neck Neck: Yes normal visual inspection Carotids: no bruits Chest Chest palpation & inspection: normal inspection of the chest Resp Effort & Inspection: normal respiratory effort and able to speak in complete sentences Auscultation: clear to auscultation bilaterally, no crackles, no rales, no rhonchi and no wheezes Cardio Rate: regular rate Rhythm: regular rhythm Heart sounds: S1 normal heart sound present and S2 normal heart sound present Bruits: no carotid bruits Peripheral pulses: Peripheral pulses 2+ throughout GI Inspection: Yes normal to inspection Skin Other: Nonhealing right BKA stump with an opening of 11 x 6 x 0.6 cm. No overt signs of infection. Reasonable granulation base. Wounds: no wounds Hair: normal Neuro General: oriented to person, oriented to place and oriented to time Cranial nerves: Yes CN's II-XII intact bilaterally and Yes Normal hearing present Cognition (Neuro): normal cognition Motor exam (neuro): 5/5 motor strength present throughout Extrem Other: venous exam: No significant superficial varicosities or spider telangiectasias, minimal edema General: No clubbing, No cyanosis and No edema Psych Appearance: grossly normal Mental Status: mental status grossly normal Speech and movement: Normal speech and movement present Assessment & Plan Assessment & Plan (1) BKA stump complication: Code(s): T87.9 - Unspecified complications of amputation stump Plan: In short patient has nonhealing BKA stump. The current time would continue with wound VAC. we reinforce the importance of compliance. He will follow up with us in approximately 2 weeks time. Should it not improve will consider revision at that time. Thank you for allowing us to assist in his care. If there are any questions or concerns please do not hesitate to contact us. Medications: Discontinued furosemide 40 mg PO BID 60 tabs 0RF Coding Level of Care Code Est Pt Level 4 (35304) Diagnoses BKA stump complication T87.9
== END 2023-02-02 10:29 | disposition home or self-care (01) ==
PROVIDERS: PCP Family Medicine; Visit Provider Surgery Vascular Surgery
DX: T87.89 Other complications of amputation stump (principal); Z89.511 Acquired absence of right leg below knee; Z91.199 Patient's noncompliance with other medical treatment and regimen due to unspecified reason
CPT/HCPCS: 99214

== ENCOUNTER → 2023-02-02 09:42 | Outpatient (BNVA) | payer MEDICAID, SELFPAY | PROVIDERS: PCP Family Medicine; Visit Provider Surgery Vascular Surgery | DX: T87.9 Unspecified complications of amputation stump (principal); Z91.199 Patient's noncompliance with other medical treatment and regimen due to unspecified reason | CPT/HCPCS: 99212 ==

== ENCOUNTER 2023-02-22 14:32 | Inpatient (IN) | payer MEDICAID, SELFPAY ==
--- NOTE | 2023-02-22 14:39 | ED.GENADULT ---
HPI - General Adult General Chief complaint: Wound/Laceration Stated complaint: BUTTOCKS PAIN/ULCERS PER PER EMS Time Seen by Provider: 02/22/23 14:39 Source: patient Limitations: no limitations History of Present Illness HPI narrative: Patient is status post left BKA on 12/21/2022 with history of diabetes hypertension high cholesterol peripheral artery disease with nonhealing left BKA stump with wound VAC was in rehab discharged on 02/16 having sores on buttocks area for last 2 weeks getting worse now unable to sit on the electric scooter which has very uncomfortable seat no fever no chills patient recently admitted and discharged on 01/22/2023 for a MRSA bacteremia requiring 4 weeks of antibiotics Related Data Home Medications Medication Instructions Recorded Confirmed aspirin 81 mg tablet,delayed 81 mg PO DAILY 12/10/20 02/22/23 release atorvastatin 80 mg tablet 80 mg PO BEDTIME 12/10/20 02/22/23 insulin glargine 100 unit/mL (3 42 unit subcut BEDTIME 12/10/20 02/22/23 mL) subcutaneous pen (Lantus Solostar U-100 Insulin) insulin lispro 100 unit/mL 10 unit subcut TIDAC 12/10/20 02/22/23 subcutaneous pen (Humalog KwikPen (U-100) Insulin) lisinopril 40 mg tablet 40 mg PO DAILY 03/23/22 02/22/23 metformin 1,000 mg tablet 1,000 mg PO BIDWM 08/18/22 02/22/23 ipratropium 20 mcg-albuterol 100 1 puff inhalation Q6H PRN 11/14/22 02/22/23 mcg/actuation mist for inhalation Shortness Of Breath (Combivent Respimat) pantoprazole 20 mg tablet,delayed 20 mg PO DAILY 11/14/22 02/22/23 release tiotropium bromide 2.5 2 puff inhalation DAILY 11/14/22 02/22/23 mcg/actuation mist for inhalation (Spiriva Respimat) albuterol sulfate 2.5 mg/3 mL 2.5 mg inhalation Q4H PRN SOB 12/21/22 02/22/23 (0.083 %) solution for nebulization furosemide 20 mg tablet 20 mg PO DAILY 12/21/22 02/22/23 furosemide 40 mg tablet (Lasix) 40 mg PO DAILY 12/21/22 02/22/23 multivitamin 1 tab PO DAILY 01/14/23 02/22/23 peg 680-[id number] 1 2 drp ophthalmic (eye) QID PRN Dry 01/14/23 02/22/23 %-0.2 %-0.2 % eye drops Eye(S) (Artificial Tears ([id number])) Previous Rx's Medication Instructions Recorded carvedilol 25 mg tablet 25 mg PO BID #180 tabs 07/10/22 Allergies Allergy/AdvReac Type Severity Reaction Status Date / Time No Known Allergies Allergy Verified 02/22/23 14:54 Review of Systems Review of Systems: Yes all other systems are reviewed and are negative [facility] Past Medical History Medical History Abscess, perineum Asthma Below-knee amputation of right lower extremity BPH (benign prostatic hyperplasia) CAD (coronary artery disease) Cardiomyopathy Cardiomyopathy Coronary artery disease Diabetes Essential hypertension High cholesterol History of peripheral vascular disease HTN (hypertension) PAD (peripheral artery disease) Type 2 diabetes mellitus with unspecified complications Surgical History History of cardiac cath History of surgical removal of pilonidal cyst Hx of hand surgery Hx of hand surgery Hx of varicose vein stripping S/P angiogram of extremity Family History Family History Father No problems noted. Mother Diabetes HTN (hypertension) Sister No problems noted. Sister Diabetes HTN (hypertension) Sister No problems noted. Social History Social History Household Members: None Housing: Apartment Housing Other:: elderly housing Are you a primary children's zoo caretaker to a significant other at home: No Do you presently have visiting nurse or other home services: Yes (LEAD CYTOGENETIC TECHNOLOGIST-son Rommel) Alcohol intake: never Patient Tobacco Use Status: Current everyday Tobacco user Tobacco use type: Cigarette Cigarette Packs Per Day: 0.5 Cigarettes Per Day: 10 Years Smoked: 15+/- Second Hand Smoke Exposure: No Advance Directives: Yes Advance Directives on File: Yes Advance Directives Date on File: 12/10/20 service: No Current occupational status: disabled Physical Exam ED Vital Signs: Vital Signs - 24 hr 02/22/23 14:45 02/22/23 16:06 02/22/23 16:39 Temperature 99.1 F Pulse Rate 98 95 Respiratory Rate 20 18 Blood Pressure 127/94 H 127/62 Pulse Oximetry 98 96 Oxygen Delivery Method Room Air Room Air BMI result Body Mass Index 29.5 Appearance: Alert. Oriented X3. No acute distress. Eyes: PERRLA ENT: Pharynx normal. Oral Mucosa moist Neck: Normal inspection. Neck supple. CVS: Normal heart rate and rhythm. Pulses normal. Respiratory: No respiratory distress. Equal air entry bilateral, no wheezing/rales/rhonchi Abdomen: Soft and nontender. Bowel sounds are present, no mass palpable, no CVA tenderness Skin: Skin warm and dry. Normal skin color. Normal skin turgor. Extremities: No lower extremity edema. No calf tenderness right BKA with wound VAC skin looks healthy Neuro: Oriented X 3. No motor deficit. No sensory deficit.No cerebellar signs , cranial nerves II-XII intact Medications Administered Generic Name Dose Route Start Last Admin Trade Name Freq PRN Reason Stop Dose Admin Enoxaparin Sodium 40 mg 02/22/23 19:00 02/22/23 20:34 Enoxaparin Sodium 40 Mg/0.4 Ml Syringe SUBCUT 40 mg Q24H KARI Administration Discontinued Medications Generic Name Dose Route Start Last Admin Trade Name Freq PRN Reason Stop Dose Admin Bisacodyl 10 mg 02/22/23 16:01 02/22/23 16:38 Bisacodyl 5 Mg Tablet. PO 02/22/23 16:02 10 mg ONCE ONE Administration Doxycycline Monohydrate 100 mg 02/22/23 15:27 02/22/23 16:38 Doxycycline Monohydrate 100 Mg Capsule PO 02/22/23 15:28 100 mg ONCE ONE Administration Cefazolin Sodium 1 gm/ Sodium 50 mls @ 100 mls/hr 02/22/23 15:27 02/22/23 17:45 Chloride IV 02/22/23 15:56 Infused ONCE ONE Infusion Sodium Chloride 1,000 mls @ 999 mls/hr 02/22/23 16:45 02/22/23 18:22 Ns IV 02/22/23 17:45 Infused .Q1H1M ONE Infusion Vancomycin HCl 2,000 mg in 500 mls @ 250 mls/hr 02/22/23 17:15 02/22/23 17:39 Vancomycin/Ns IV 02/22/23 19:14 250 mls/hr ONCE ONE Administration Magnesium Hydroxide 30 ml 02/22/23 16:01 02/22/23 16:38 Milk Of Magnesia 30 Ml Oral.Susp PO 02/22/23 16:02 30 ml ONCE ONE Administration Morphine Sulfate 4 mg 02/22/23 15:10 02/22/23 16:38 Morphine Sulfate 4 Mg/Ml Cartridge IVPUSH 02/22/23 15:11 Not Given ONCE ONE Protocol Morphine Sulfate 4 mg 02/22/23 16:01 02/22/23 16:39 Morphine Sulfate 4 Mg/Ml Cartridge IVPUSH 02/22/23 16:02 4 mg ONCE ONE Administration Protocol Ondansetron HCl 4 mg 02/22/23 15:10 02/22/23 16:38 Ondansetron Hcl 4 Mg/2 Ml Vial IVPUSH 02/22/23 15:11 Not Given ONCE ONE Ondansetron HCl 4 mg 02/22/23 16:01 02/22/23 16:39 Ondansetron Hcl 4 Mg/2 Ml Vial IVPUSH 02/22/23 16:02 4 mg ONCE ONE Administration Medical Decision Making Medical Decision Making [facility] Narrative: Patient with multiple open wounds area on bilateral gluteal lab workup showed elevated WBC count and lactic acid meeting criteria for sepsis started on Ancef and Doxy. will change to vancomycin and admit Patient urine showed wbc's suggestive of UTI will admit patient for UTI/severe sepsis/nonhealing wounds Differential Diagnosis Differential Diagnoses: The differential diagnosis associated with the presentation includes Sepsis/nonhealing wound/deeper infection/UTI Admission/Observation Consideration of admission/observation: Escalation of care including admission/observation considered Consult Healthcare Provider Management of the patient was discussed with: Hospitalist Lab Data MDM Lab Attestation statement: I reviewed the patient's lab results. 02/22/23 15:38 02/22/23 15:38 Labs: Lab Results 02/22/23 02/22/23 02/22/23 Range/Units 15:38 15:38 15:38 WBC 20.8 H (4.8-10.8) X10*3/uL RBC 4.32 L (4.60-5.80) X10*6/uL Hgb 12.3 L (14.0-18.0) g/dl Hct 36.9 L (42.0-52.0) % MCV 85.4 (80.0-98.0) fL MCH 28.5 (27.0-33.0) pg MCHC 33.3 (31.0-36.0) g/dl RDW 16.7 H (11.0-16.0) % Plt Count 484 H D (160-400) X10*3/uL MPV 8.9 L (9.4-12.4) fL Immature Gran % (Auto) 0.8 H (0.0-0.4) % Neut % (Auto) 79.6 H (45-73) % Lymph % (Auto) 9.7 L (20-40) % [place] % (Auto) 7.7 (2-11) % Eos % (Auto) 1.8 (0-4) % Baso % (Auto) 0.4 (0-2) % Lymph # (Auto) 2.0 (1.2-4.9) X10*3/uL [place] # (Auto) 1.6 H (0.1-1.2) X10*3/uL Eos # (Auto) 0.4 (0.0-0.4) X10*3/uL Baso # (Auto) 0.1 (0.0-0.2) X10*3/uL Abs Immat Gran (auto) 0.17 H (0.00-0.03) X10*3/uL Absolute Neuts (auto) 16.5 H (2.0-8.3) x10*3/uL Absolute Nucleated RBC 0.000 (0.0-0.012) X10*3/uL Nucleated RBC % (auto) 0.0 (0.0-0.2) /100WBC Smear Tech's Comments VERIFIED Sodium 131 L (135-145) mmol/L Potassium 4.5 (3.3-5.1) mmol/L Chloride 97 (96-108) mmol/L Carbon Dioxide 24 (22-29) mmol/L Anion Gap 15 (12-20) BUN 20 H (9-16) mg/dL Creatinine 0.76 (0.5-1.4) mg/dL Estim Creat Clear Calc 102.4 Estimated GFR > 60 Random Glucose 245 H (60-115) mg/dL Lactic Acid 2.6 H* (0.5-2.0) mmol/L Lactic Acid F/U @ 2Hr (0.5-2.0) mmol/L Calcium 10.0 (8.4-10.2) mg/dL Magnesium 1.8 (1.6-2.6) mg/dL Total Bilirubin 0.5 (0.0-1.0) mg/dL AST 15 (5-37) U/L ALT 20 (0-40) U/L Alkaline Phosphatase 81 (39-117) U/L Total Protein 7.6 (6.5-8.0) g/dL Albumin 3.7 (3.5-5.0) g/dL Urine Color Urine Appearance Urine pH (5.0-9.0) Ur Specific [place] (1.005-1.025) Urine Protein (Neg-Trace) mg/dL Urine Glucose (UA) (Negative) mg/dL Urine Ketones (Negative) mg/dL Urine Blood (Negative) Urine Nitrite (Negative) Ur Leukocyte Esterase (Negative) Urine RBC (0-2) /HPF Urine WBC (0-5) /HPF Ur Squamous Epith Cells (0-2) /HPF Urine Bacteria (None Seen) Hyaline Casts (0-2) /LPF 02/22/23 02/22/23 Range/Units 16:58 18:12 WBC (4.8-10.8) X10*3/uL RBC (4.60-5.80) X10*6/uL Hgb (14.0-18.0) g/dl Hct (42.0-52.0) % MCV (80.0-98.0) fL MCH (27.0-33.0) pg MCHC (31.0-36.0) g/dl RDW (11.0-16.0) % Plt Count (160-400) X10*3/uL MPV (9.4-12.4) fL Immature Gran % (Auto) (0.0-0.4) % Neut % (Auto) (45-73) % Lymph % (Auto) (20-40) % [place] % (Auto) (2-11) % Eos % (Auto) (0-4) % Baso % (Auto) (0-2) % Lymph # (Auto) (1.2-4.9) X10*3/uL [place] # (Auto) (0.1-1.2) X10*3/uL Eos # (Auto) (0.0-0.4) X10*3/uL Baso # (Auto) (0.0-0.2) X10*3/uL Abs Immat Gran (auto) (0.00-0.03) X10*3/uL Absolute Neuts (auto) (2.0-8.3) x10*3/uL Absolute Nucleated RBC (0.0-0.012) X10*3/uL Nucleated RBC % (auto) (0.0-0.2) /100WBC Smear Tech's Comments Sodium (135-145) mmol/L Potassium (3.3-5.1) mmol/L Chloride (96-108) mmol/L Carbon Dioxide (22-29) mmol/L Anion Gap (12-20) BUN (9-16) mg/dL Creatinine (0.5-1.4) mg/dL Estim Creat Clear Calc Estimated GFR Random Glucose (60-115) mg/dL Lactic Acid (0.5-2.0) mmol/L Lactic Acid F/U @ 2Hr 1.7 (0.5-2.0) mmol/L Calcium (8.4-10.2) mg/dL Magnesium (1.6-2.6) mg/dL Total Bilirubin (0.0-1.0) mg/dL AST (5-37) U/L ALT (0-40) U/L Alkaline Phosphatase (39-117) U/L Total Protein (6.5-8.0) g/dL Albumin (3.5-5.0) g/dL Urine Color Yellow Urine Appearance Cloudy Urine pH 5.5 (5.0-9.0) Ur Specific [place] 1.025 (1.005-1.025) Urine Protein 100 (2+) H (Neg-Trace) mg/dL Urine Glucose (UA) >=1000 H (Negative) mg/dL Urine Ketones Negative (Negative) mg/dL Urine Blood Moderate (2+) H (Negative) Urine Nitrite Positive H (Negative) Ur Leukocyte Esterase Moderate (2+) H (Negative) Urine RBC 11-20 H (0-2) /HPF Urine WBC >50 H (0-5) /HPF Ur Squamous Epith Cells 0-2 (0-2) /HPF Urine Bacteria 4+ (None Seen) Hyaline Casts 0-2 (0-2) /LPF External Record Review External record reviewed: Inpatient record Discharge Plan Discharge Clinical Impression: Infected wound, Acute UTI, Severe sepsis Patient Disposition: Admitted As Inpatient
[2023-02-22 14:45] VITALS: BP 127/94; BP 130/60; PULSE 101; PULSE 98; RESP 20; TEMP 37.3; O2SAT 98; BMI 29.5
--- NOTE | 2023-02-22 15:00 | PC.NURSE ---
psychotherapist counselor at bedside. Patient had recent right BKA, discharged from rehab on 02/16. utilizing scooter/wheelchair 25/01. No BM x 8 days. Bilateral Buttocks mar, excoriated.
[2023-02-22 15:46] LABS: Basophils Absolute Auto 0.1 X10*3/uL (0.0-0.2); Basophils Percent Auto 0.4 % (0-2); Eosinophils Absolute Auto 0.4 X10*3/uL (0.0-0.4); Eosinophils Percent Auto 1.8 % (0-4); Hematocrit 36.9 % (42.0-52.0); Hemoglobin 12.3 g/dl (14.0-18.0); Imm Gran Abs Auto 0.17 X10*3/uL (0.00-0.03); Imm Gran Pct Auto 0.8 % (0.0-0.4); Lymphocytes Percent Auto 9.7 % (20-40); MANUAL DIFF FLAG SCAN; Mean Corpuscular HGB Conc 33.3 g/dl (31.0-36.0); Mean Corpuscular Hemoglobin 28.5 pg (27.0-33.0); Mean Corpuscular Volume 85.4 fL (80.0-98.0); Mean Platelet Volume 8.9 fL (9.4-12.4); Monocytes Absolute Auto 1.6 X10*3/uL (0.1-1.2); Monocytes Percent Auto 7.7 % (2-11); Neutrophils Absolute Auto 16.5 x10*3/uL (2.0-8.3); Neutrophils Percent Auto 79.6 % (45-73); Platelet Count 484 X10*3/uL (160-400); Red Blood Count 4.32 X10*6/uL (4.60-5.80); Red Cell Distribution Width 16.7 % (11.0-16.0); SCAN SMEAR FLAG 1; White Blood Count 20.8 X10*3/uL (4.8-10.8)
[2023-02-22 16:06] VITALS: BP 127/62; PULSE 95; O2SAT 96
[2023-02-22 16:10] LABS: SLIDE REVIEW VERIFIED
[2023-02-22 16:17] LABS: Anion Gap 15 (12-20); Blood Urea Nitrogen 20 mg/dL (9-16); Carbon Dioxide 24 mmol/L (22-29); Chloride 97 mmol/L (96-108); Potassium 4.5 mmol/L (3.3-5.1); Sodium 131 mmol/L (135-145)
[2023-02-22 16:18] LABS: Alanine Aminotransferase 20 U/L (0-40); Albumin Level 3.7 g/dL (3.5-5.0); Alkaline Phosphatase 81 U/L (39-117); Aspartate Amino Transferase 15 U/L (5-37); Bilirubin Total 0.5 mg/dL (0.0-1.0); Creatinine Clr Calc Pharmacy 102.4; Estimated Glomerular Filt Rate > 60; Glucose Random 245 mg/dL (60-115); Magnesium 1.8 mg/dL (1.6-2.6); Total Protein 7.6 g/dL (6.5-8.0)
[2023-02-22 16:25] LABS: Lactic Acid 2.6 mmol/L (0.5-2.0)
[2023-02-22] MEDS: Milk of Magnesia 30 ML ORAL.SUSP PO (16:38)
[2023-02-22] MEDS: Doxycycline Monohydrate 100 MG CAPSULE PO (16:38)
[2023-02-22] MEDS: bisacodyL 5 MG TABLET.DR 10 MG PO (16:38)
[2023-02-22 16:39] VITALS: RESP 18
[2023-02-22] MEDS: Morphine Sulfate 4 MG/ML CARTRIDGE IVPUSH (16:39)
[2023-02-22] MEDS: ondansetron HCL 4 MG/2 ML VIAL IVPUSH (16:39)
[2023-02-22] MEDS: 0.9 % Sodium Chloride 1,000 ML 999 ML IV (16:52)
--- NOTE | 2023-02-22 17:00 | P.HPHOSP_ITS ---
History of Present Illness Date of Service: 02/22/23 Chief Complaint: Buttock pain 62-year-old male with past medical history of diabetes, HTN, history of cardiomyopathy, history of CAD, BPH, peripheral arterial disease, recent recent below-knee amputation of the right leg due to nonhealing wound on 12/21/22 and w as subsequently admitted for non-healing amputation site wound and placement of Wound vac placement and was discharged on 01/22/23 to [facility] where he stayed for 8 days then discharged home after 8 days. He comes in today with bilateral buttock pain that he attributes to prolong sitting on his scooter with very uncomfortable seat. He lives alone, with occasional nursing visit. Work up in ED shows erthyma and escoration of buttocks. See picture. WBC is 20K, lactic acid 2.6. UA is grossly positive for UTI but reports no urinary symptoms. ED gave him Cefazolin and Vanco Review of Systems Review of Systems: Gen: no fever Resp: no sob, no cough CV: no chest, no GUZMAN, no leg edema GI: No n/v, no abd pain Neuro: No confusion Yes all other systems are reviewed and are negative [facility] Medical History Abscess, perineum Asthma Below-knee amputation of right lower extremity BPH (benign prostatic hyperplasia) CAD (coronary artery disease) Cardiomyopathy Cardiomyopathy Coronary artery disease Diabetes Essential hypertension High cholesterol History of peripheral vascular disease HTN (hypertension) PAD (peripheral artery disease) Type 2 diabetes mellitus with unspecified complications Family History Father No problems noted. Mother Diabetes HTN (hypertension) Sister No problems noted. Sister Diabetes HTN (hypertension) Sister No problems noted. Surgical History History of cardiac cath History of surgical removal of pilonidal cyst Hx of hand surgery Hx of hand surgery Hx of varicose vein stripping S/P angiogram of extremity Social History Household Members: None Housing: Apartment Housing Other:: elderly housing Are you a primary team primary care physician to a significant other at home: No Do you presently have visiting nurse or other home services: Yes (CUSTOMER SUPPORT EXECUTIVE-son Rommel) Alcohol intake: never Patient Tobacco Use Status: Current everyday Tobacco user Tobacco use type: Cigarette Cigarette Packs Per Day: 0.5 Cigarettes Per Day: 10 Years Smoked: 15+/- Second Hand Smoke Exposure: No Advance Directives: Yes Advance Directives on File: Yes Advance Directives Date on File: 12/10/20 service: No Current occupational status: disabled Meds Allergies Allergy/AdvReac Type Severity Reaction Status Date / Time No Known Allergies Allergy Verified 02/22/23 14:54 Active Medications: Current Medications Sodium Chloride (Ns) 1,000 mls @ 999 mls/hr IV .Q1H1M ONE Stop: 02/22/23 17:45 Last Admin: 02/22/23 16:52 Dose: 999 mls/hr Vancomycin HCl 1,500 mg/ (Sodium Chloride) 500 mls @ 333.333 mls/hr IV ONCE ONE Stop: 02/22/23 18:23 Pharmacy Consult (Consult Rx Vancomycin Dosing) 1 each MISCELLANE DAILY PRN PRN Reason: Consult order Home Medications Medication Instructions Recorded Confirmed Last Taken Type aspirin 81 mg tablet,delayed 81 mg PO DAILY 12/10/20 02/22/23 02/22/23 History release atorvastatin 80 mg tablet 80 mg PO BEDTIME 12/10/20 02/22/23 02/21/23 History insulin glargine 100 unit/mL (3 42 unit subcut BEDTIME 12/10/20 02/22/23 02/21/23 History mL) subcutaneous pen (Lantus Solostar U-100 Insulin) insulin lispro 100 unit/mL 10 unit subcut TIDAC 12/10/20 02/22/23 02/22/23 History subcutaneous pen (Humalog KwikPen (U-100) Insulin) lisinopril 40 mg tablet 40 mg PO DAILY 03/23/22 02/22/23 02/22/23 History metformin 1,000 mg tablet 1,000 mg PO BIDWM 08/18/22 02/22/23 02/22/23 History ipratropium 20 mcg-albuterol 100 1 puff inhalation Q6H PRN 11/14/22 02/22/23 12/21/22 06:00 History mcg/actuation mist for inhalation Shortness Of Breath (Combivent Respimat) pantoprazole 20 mg tablet,delayed 20 mg PO DAILY 11/14/22 02/22/23 02/22/23 History release tiotropium bromide 2.5 2 puff inhalation DAILY 11/14/22 02/22/23 02/22/23 History mcg/actuation mist for inhalation (Spiriva Respimat) albuterol sulfate 2.5 mg/3 mL 2.5 mg inhalation Q4H PRN SOB 12/21/22 02/22/23 Unknown History (0.083 %) solution for nebulization furosemide 20 mg tablet 20 mg PO DAILY 12/21/22 02/22/23 02/22/23 History furosemide 40 mg tablet (Lasix) 40 mg PO DAILY 12/21/22 02/22/23 02/22/23 History multivitamin 1 tab PO DAILY 01/14/23 02/22/23 02/22/23 History peg [id number] 1 2 drp ophthalmic (eye) QID PRN Dry 01/14/23 0 02/22/23 Unknown History %-0.2 %-0.2 % eye drops Eye(S) (Artificial Tears ([id number])) Physical Exam Vital Signs and Narrative: Vital Signs: Last Vital Signs Temp 99.1 F 02/22/23 14:45 Pulse 95 02/22/23 16:06 Resp 18 02/22/23 16:39 BP 127/62 02/22/23 16:06 Pulse Ox 96 02/22/23 16:06 O2 Del Method Room Air 02/22/23 16:06 BMI result Body Mass Index 29.5 Const: Other: Constitutional: Alert, in no distress, overweight. Mental Status: Oriented to person, place and time. Eyes: Pupils are equal, round and reactive to light. Ear, Nose and Throat: Oropharynx clear, mucous membranes moist. Ears and nose without eformities. Trachea midline. Respiratory: Clear to auscultation. No wheezing, rales or rhonchi. Cardiovascular: S1 S2 regular. No murmurs, rubs or gallops. Gastrointestinal: Abdomen soft, non-tender, non-distended. Normal bowel sounds.? Neurologic: Cranial nerves II-XII grossly intact. No focal neurological deficits. Moves all extremities spontaneously.? Skin: Musculoskeletal: No cyanosis or clubbing. right LE stump wound vac dressing in place Psychiatric: Normal mood and affect? Results Labs 02/22/23 15:38 02/22/23 15:38 Labs: Laboratory Results - last 24 hr 02/22/23 02/22/23 02/22/23 15:38 15:38 15:38 MCV 85.4 MCH 28.5 MCHC 33.3 RDW 16.7 H Plt Count 484 H D MPV 8.9 L Immature Gran % (Auto) 0.8 H Neut % (Auto) 79.6 H Lymph % (Auto) 9.7 L [place] % (Auto) 7.7 Eos % (Auto) 1.8 Baso % (Auto) 0.4 Lymph # (Auto) 2.0 [place] # (Auto) 1.6 H Eos # (Auto) 0.4 Baso # (Auto) 0.1 Abs Immat Gran (auto) 0.17 H Absolute Neuts (auto) 16.5 H Absolute Nucleated RBC 0.000 Nucleated RBC % (auto) 0.0 Smear Tech's Comments VERIFIED Anion Gap 15 Estim Creat Clear Calc 102.4 Estimated GFR > 60 Random Glucose 245 H Lactic Acid 2.6 H* Calcium 10.0 Magnesium 1.8 Total Bilirubin 0.5 AST 15 ALT 20 Alkaline Phosphatase 81 Total Protein 7.6 Albumin 3.7 Assessment and Plan (1) Cellulitis of buttock: Status: Acute (2) Sepsis: Status: Acute (3) Acute lactic acidosis: Status: Acute Plan 62-year-old male with past medical history of diabetes, HTN, history of cardiomyopathy, history of CAD, BPH, peripheral arterial disease, recent recent below-knee amputation of the right leg due to nonhealing wound on 12/21/22 and was subsequently admitted for non-healing amputation site wound and MRSA bacteremia and required 4 weeks of IV Vanco and placement of Wound vac placement and was discharged on 01/22/23 to [facility], Here with buttock ulcers, UTI and meets severe sepsis criteria #SevereSepsis d/t buttock Cellulitis and UTI, follow culture received Cefazolin and Vanco in ED continue treatment with Vanco and Ceftriaxone Surgery to assess for debridment of buttock wounds #Acute lactic acidosis--d/t sepsis # UTI--Ceftriaxone as above #s/p ritht BKA that is non-healing, Vascular surgery to assess, wound vac to be reapplied, he left the machine at home #PAD #CAD -ASA, Statin, BB, Imdur #HTN--Lisinopril, Coreg, Imdur #ischemic cardiomyopathy #chronic HFrEF--no exacerbation--Lasix #DM2 --Lantus + SSI, metformin and ADA diet #GERD--PPI DVT prophylaixis: Lovenox full code need for inpatient; severe Sepsis that Need IV Abx Time Spent With Patient Time: Total time managing care of this patient today ____ minutes. Quality Stroke Does the patient have a stroke diagnosis?: No VTE Prior VTE?: No VTE Risk Level:: Medical - moderate - high VTE Device Contraindication: Treatment Not Indicated VTE Drug Contraindication: N/A - Med Ordered
[2023-02-22 17:04] LABS: Appearance Urine Cloudy; Color Urine Yellow; Glucose Urine UA >=1000 mg/dL (Negative); Leukocyte Esterase Urine Moderate (2+) (Negative); Nitrite Urine Positive (Negative); PH 5.5 (5.0-9.0); Specific Gravity - Urine 1.025 (1.005-1.025); UMIC TRIGGER UACC YES; Urine Blood Moderate (2+) (Negative); Urine Ketones Negative (Negative); Urine Protein 100 (2+) mg/dL (Neg-Trace)
[2023-02-22 17:07] LABS: Bacteria Urine 4+ (None Seen); Hyaline Casts Urine 0-2 /LPF (0-2); Squamous Epithelial Cell Urine 0-2 /HPF (0-2); UACC Culture Trigger YES; WBC Urine >50 /HPF (0-5)
[2023-02-22] MEDS: vancomycin/NS 2,000 MG/500 ML PLAST..BAG 250 MG IV (17:39)
[2023-02-22 17:43] LABS: Reflex Lactate? Lactic Acid Added
--- NOTE | 2023-02-22 17:46 | PHA.MEDREC ---
Pharmacy Consult ? Medication Reconciliation Pharmacy has completed the medication reconciliation. Patient has no idea what the names of his pills are. He stated I don't need to know the names of the medication since I know what they are for. Patient was able the confirm insulin dosing and inhalers. The only pills patient knew was his water pill was increased to 60 mg daily. The rest of the pills he said he takes pressure medications and the big daibetets medication. He did confirm he was on a cholestrol medications and thinks carvedilol sounds familiar. Patient does not recognize isosorbide mononirtate at all. Valerie Poon, PharmD
[2023-02-22 18:31] LABS: ~Lactic Acid-LAB USE ONLY 1.7 mmol/L (0.5-2.0)
--- NOTE | 2023-02-22 20:19 | PHA.PROG ---
Addendum entered by Valerie Poon RPh 02/22/23 20:50: Load dose was occluded so patient never received the dose. Infusion was re-initiated at 2039. Maintenance dose adjust to start 02/23 @ 0900 and random level adjusted to 02/23 @ 1900 Original Note: Admission Date/Time: February 22, 2023 18:17 Indication: Sepsis due to Buttock Ceullitis Weight in k.3 kg Adjusted body weight in K.78 kg [place] body weight in K.1 kg Obesity Dosing Indication % IBW: 129% Serum Creatinine - Last 168 Hours 02/22/23 15:38 Creatinine 0.76 Estimated CrCl and GFR - Last 168 Hours 02/22/23 15:38 Estim Creat Clear Calc 102.4 Estimated GFR > 60 Vancomycin Loading Dose: 2000 mg (23 mg/kg) Current Vancomycin Dosing Regimen: 1250 mg Q12H Date and Time for next Vancomycin Level to be drawn: 02/23 @ 1600 Pharmacist Comments on Vancomycin Plan: Patient has amputation on right leg, below knee Patient received an adequate load dosing in the ER on 02/22 @ 1739. Maintenance dose vancomycin 1250 mg Q12H is scheduled to start 02/23 @ 0600. Expected AUC 557 with a trough of 17.4 Level is scheduled prior to the 3rd dose to evaluate for safety and efficacy. Pharmacy to monitor renal function daily Valerie Poon PharmD Vancomycin dosing will take advantage of [employer] as a clinical decision support tool that uses Bayesian modeling to calculate individual patient's pharmacokinetic parameters and forecast the patient's drug concentration time course with the target goal AUC 24 range of 400 - 600 mg/L/hr.
[2023-02-22] MEDS: Enoxaparin Sodium 40 MG/0.4 ML SYRINGE SUBCUT (20:34)
[2023-02-22 21:37] LABS: Glucose, Whole Blood 132 mg/dL (60-115)
[2023-02-22 21:43] VITALS: BP 137/61; PULSE 98; RESP 18; TEMP 36.2; O2SAT 99
--- NOTE | 2023-02-22 21:51 | PC.NURSE ---
This RN in patients room to administer Lovenox medication and vanco had not infused. Restarted Vanco, notified chargemaster analyst and RN on who will be accepting patient. Pharmacy notified and adjusted time for next Vanco dose.
[2023-02-22] MEDS: Insulin Glargine,Hum.rec.anlog 100 UNIT/ML 10 ML VIAL 42 UNIT SUBCUT (21:52)
[2023-02-22] MEDS: carvediloL 25 MG TABLET PO (21:53)
[2023-02-22] MEDS: Acetaminophen 325 MG TABLET 650 MG PO (21:53)
[2023-02-22] MEDS: Melatonin 3 MG TABLET 6 MG PO (21:53)
[2023-02-22] MEDS: Atorvastatin Calcium 80 MG TABLET PO (21:53)
[2023-02-22 22:03] VITALS: BMI 29.5
[2023-02-23 03:14] VITALS: BP 126/57; PULSE 100; RESP 18; TEMP 36.2; O2SAT 97
[2023-02-23] MEDS: Omeprazole 20 MG CAPSULE.DR PO (05:23)
[2023-02-23 06:08] LABS: Creatinine Clr Calc Pharmacy 118.1; Estimated Glomerular Filt Rate > 60
[2023-02-23] MEDS: Morphine Sulfate 2 MG/ML CARTRIDGE IVPUSH (06:30)
[2023-02-23] MEDS: Albuterol Sulfate (0.083%) 2.5 MG/3 ML VIAL.NEB INHALE (06:39)
[2023-02-23 06:41] VITALS: PULSE 100; RESP 18; O2SAT 97
[2023-02-23 07:07] VITALS: BP 111/56; PULSE 102; RESP 18; O2SAT 96
[2023-02-23 07:39] LABS: Glucose, Whole Blood 127 mg/dL (60-115)
[2023-02-23] MEDS: Aspirin Enteric Coated 81 MG TABLET.DR PO (08:00)
[2023-02-23] MEDS: Furosemide 20 MG TABLET PO (08:00)
[2023-02-23] MEDS: Furosemide 40 MG TABLET PO (08:00)
[2023-02-23] MEDS: carvediloL 25 MG TABLET PO ×2 (08:00→21:00)
[2023-02-23] MEDS: lisinopriL 40 MG TABLET PO (08:01)
[2023-02-23] MEDS: cefTRIAXone sodium 1 GM in 0.9 % Sodium Chloride 50 ML IV (08:01)
[2023-02-23] MEDS: Multivitamin TABLET 1 TAB PO (08:01)
[2023-02-23] MEDS: metFORMIN HCl 1,000 MG TABLET 1000 MG PO ×2 (08:01→16:41)
[2023-02-23] MEDS: 0.9 % Sodium Chloride Flush 3 ML SYRINGE IVFLUSH ×3 (08:05→21:01)
--- NOTE | 2023-02-23 08:14 | PM.CNGS ---
History of Present Illness Consult details Consult date: 02/23/23 Requesting physician: Juan Antonio Royal Narrative: 65-year-old male patient presenting with painful bilateral buttock wounds from prolonged sitting on his scooter. He has a past medical history of diabetes mellitus, hypertension, cardiomyopathy, coronary artery disease, BPH, peripheral arterial disease, status post right below-knee amputation on 12/21/2022 currently with a VAC sponge in place without VAC. patient was in short-term rehab and developed increased pain in the buttocks with areas of redness or ulceration. Surgical consultation was requested for possible debridement. He has been admitted to the hospitalist service for IV antibiotics and treatment of a urinary tract infection. WBC 20 K, lactic acid 2.6. Review of Systems Review of Systems: Yes Unobtainable due to mental condition PMFSH Past Medical History Medical History Abscess, perineum Asthma Below-knee amputation of right lower extremity BPH (benign prostatic hyperplasia) CAD (coronary artery disease) Cardiomyopathy Cardiomyopathy Coronary artery disease Diabetes Essential hypertension High cholesterol History of peripheral vascular disease HTN (hypertension) PAD (peripheral artery disease) Type 2 diabetes mellitus with unspecified complications Family History Family History Father No problems noted. Mother Diabetes HTN (hypertension) Sister No problems noted. Sister Diabetes HTN (hypertension) Sister No problems noted. Surgical History Surgical History History of cardiac cath History of surgical removal of pilonidal cyst Hx of hand surgery Hx of hand surgery Hx of varicose vein stripping S/P angiogram of extremity Social History Social History Household Members: None Housing: Apartment Housing Other:: elderly housing Are you a primary plant health care technician to a significant other at home: No Do you presently have visiting nurse or other home services: Yes ([employer]-son Rommel) Alcohol intake: never Patient Tobacco Use Status: Current everyday Tobacco user Tobacco use type: Cigarette Cigarette Packs Per Day: 0.5 Cigarettes Per Day: 10 Years Smoked: 15+/- Patient Interested in Nicotine Replacement: No Second Hand Smoke Exposure: No Use of substances other than those prescribed or required for medical reasons: No Currently Displaying Signs/Symptoms of Drug Intoxication Withdrawal: No Have you been hit, kicked, punched, or otherwise hurt by someone within the past year? If so, by whom?: No Advance Directives: Yes Advance Directives on File: Yes Advance Directives Date on File: 12/10/20 Do you have thoughts of harming others: None Do you have a plan to hurt others: No Plan Recently lost weight without trying: No Nutrition Risks: No Nutritional Risk service: No Current occupational status: disabled Meds Allergies Allergy/AdvReac Type Severity Reaction Status Date / Time No Known Allergies Allergy Verified 02/22/23 14:54 Active Medications: Current Medications Acetaminophen (Acetaminophen 325 Mg Tablet) 650 mg PO Q6H PRN PRN Reason: Pain, Mild (Pain Scale 1-3) Last Admin: 02/22/23 21:53 Dose: 650 mg Al Hydroxide/Mg Hydroxide (Magnesium Hydrox/Alum Hydrox 30 Ml Oral.Susp) 30 ml PO Q4H PRN PRN Reason: Heartburn/Nausea Albuterol Sulfate (Albuterol Sulfate (0.083%) 2.5 Mg/3 Ml Vial.Neb) 2.5 mg INHALE Q4H PRN PRN Reason: Shortness of Breath Last Admin: 02/23/23 06:39 Dose: 2.5 mg Albuterol/Ipratropium (Albuterol/Iprat 2.5/0.5mg 3 Ml Ampul.Neb) 3 ml INHALE Q6H PRN PRN Reason: Shortness Of Breath Artificial Tears (Artificial Tears 15 Ml Drops) 2 drop EYE-BOTH QID PRN PRN Reason: Dry Eye(S) Aspirin (Aspirin Enteric Coated 81 Mg Tablet.Dr) 81 mg PO DAILY [facility] Last Admin: 02/23/23 08:00 Dose: 81 mg Atorvastatin Calcium (Atorvastatin Calcium 80 Mg Tablet) 80 mg PO BEDTIME [facility] Last Admin: 02/22/23 21:53 Dose: 80 mg Carvedilol (Carvedilol 25 Mg Tablet) 25 mg PO BID [facility]; Protocol Last Admin: 02/23/23 08:00 Dose: 25 mg Dextrose (Dextrose 50 % 25 Gm/50 Ml Syringe) 25 gm IVPUSH Q15M PRN; Protocol PRN Reason: per Hypoglycemia Standing Ord. Enoxaparin Sodium (Enoxaparin Sodium 40 Mg/0.4 Ml Syringe) 40 mg SUBCUT Q24H [facility] Last Admin: 02/22/23 20:34 Dose: 40 mg Furosemide (Furosemide 20 Mg Tablet) 20 mg PO DAILY [facility]; Protocol Last Admin: 02/23/23 08:00 Dose: 20 mg Furosemide (Furosemide 40 Mg Tablet) 40 mg PO DAILY [facility]; Protocol Last Admin: 02/23/23 08:00 Dose: 40 mg Glucose (Glucose Gel 15 Gm Gel..Gram.) 15 gm PO Q15M PRN; Protocol PRN Reason: per Hypoglycemia Standing Ord. Ceftriaxone Sodium 1 gm/ (Sodium Chloride) 50 mls @ 100 mls/hr IV DAILY [facility] Last Admin: 02/23/23 08:01 Dose: 100 mls/hr Vancomycin HCl 1,250 mg/ (Sodium Chloride) 250 mls @ 166.667 mls/hr IV Q12H [facility] Insulin Glargine (Insulin Glargine,Hum.Rec.Anlog 100 Unit/Ml 10 Ml Vial) 42 unit SUBCUT BEDTIME [facility] Last Admin: 02/22/23 21:52 Dose: 42 unit Insulin Human Lispro (Insulin Lispro 100 Unit/Ml 3 Ml Vial) 0 unit SUBCUT QIDACHS [facility]; Protocol Last Admin: 02/23/23 07:18 Dose: Not Given Lisinopril (Lisinopril 40 Mg Tablet) 40 mg PO DAILY [facility]; Protocol Last Admin: 02/23/23 08:01 Dose: 40 mg Melatonin (Melatonin 3 Mg Tablet) 6 mg PO BEDTIME PRN PRN Reason: Insomnia Last Admin: 02/22/23 21:53 Dose: 6 mg Metformin HCl (Metformin Hcl 1,000 Mg Tablet) 1,000 mg PO BIDWM [facility] Last Admin: 02/23/23 08:01 Dose: 1,000 mg Morphine Sulfate (Morphine Sulfate 2 Mg/Ml Cartridge) 2 mg IVPUSH Q6H PRN; Protocol PRN Reason: Pain, Severe (Pain Scale 7-10) Last Admin: 02/23/23 06:30 Dose: 2 mg Multivitamins/Vitamin C (Multivitamin Tablet) 1 tab PO DAILY [facility] Last Admin: 02/23/23 08:01 Dose: 1 tab Omeprazole (Omeprazole 20 Mg Capsule.Dr) 20 mg PO DAILY@0630 [facility] Last Admin: 02/23/23 05:23 Dose: 20 mg Ondansetron HCl (Ondansetron Hcl 4 Mg/2 Ml Vial) 4 mg IVPUSH Q8H PRN PRN Reason: Nausea and Vomiting Pharmacy Consult (Consult Rx Vancomycin Dosing) 1 each MISCELLANE DAILY PRN PRN Reason: Consult order Sodium Chloride (0.9 % Sodium Chloride Flush 3 Ml Syringe) 3 ml IVFLUSH [facility] Last Admin: 02/23/23 08:05 Dose: 3 ml Tiotropium Halsey (Tiotropium Halsey 2.5 Mcg Inhaler) 2 puff INHALE DAILY [facility] Home Medications Medication Instructions Recorded Confirmed Last Taken Type aspirin 81 mg tablet,delayed 81 mg PO DAILY 12/10/20 02/22/23 02/22/23 History release atorvastatin 80 mg tablet 80 mg PO BEDTIME 12/10/20 02/22/23 02/21/23 History insulin glargine 100 unit/mL (3 42 unit subcut BEDTIME 12/10/20 02/22/23 02/21/23 History mL) subcutaneous pen (Lantus Solostar U-100 Insulin) insulin lispro 100 unit/mL 10 unit subcut TIDAC 12/10/20 02/22/23 02/22/23 History subcutaneous pen (Humalog KwikPen (U-100) Insulin) lisinopril 40 mg tablet 40 mg PO DAILY 03/23/22 02/22/23 02/22/23 History metformin 1,000 mg tablet 1,000 mg PO BIDWM 08/18/22 02/22/23 02/22/23 History ipratropium 20 mcg-albuterol 100 1 puff inhalation Q6H PRN 11/14/22 02/22/23 12/21/22 06:00 History mcg/actuation mist for inhalation Shortness Of Breath (Combivent Respimat) pantoprazole 20 mg tablet,delayed 20 mg PO DAILY 11/14/22 02/22/23 02/22/23 History release tiotropium bromide 2.5 2 puff inhalation DAILY 11/14/22 02/22/23 02/22/23 History mcg/actuation mist for inhalation (Spiriva Respimat) albuterol sulfate 2.5 mg/3 mL 2.5 mg inhalation Q4H PRN SOB 12/21/22 02/22/23 Unknown History (0.083 %) solution for nebulization furosemide 20 mg tablet 20 mg PO DAILY 12/21/22 02/22/23 02/22/23 History furosemide 40 mg tablet (Lasix) 40 mg PO DAILY 12/21/22 02/22/23 02/22/23 History multivitamin 1 tab PO DAILY 01/14/23 02/22/23 02/22/23 History peg [id number] 1 2 drp ophthalmic (eye) QID PRN Dry 01/14/23 02/22/23 Unknown History %-0.2 %-0.2 % eye drops Eye(S) (Artificial Tears ([id number])) Physical Exam Vital Signs: Vital Signs: Last Vital Signs Temp 97.1 F 02/23/23 03:14 Pulse 102 H 02/23/23 07:07 Resp 18 02/23/23 07:07 BP 111/56 L 02/23/23 07:07 Pulse Ox 96 02/23/23 07:07 O2 Del Method Room Air 02/23/23 07:07 BMI result Body Mass Index 29.5 Const: General: no acute distress and awake Nutritional Appearance: well nourished HEENT: Head: Yes normocephalic Resp: Effort & Inspection: normal respiratory effort, no audible wheezes, no cough and no respiratory distress GI: Inspection: Yes normal to inspection Palpation (GI): Soft to palpation, nontender and no guarding Back/Spine/Pelvis: Other: Multiple superficial areas of skin ulceration down to dermis without exposed subcutaneous tissue involving bilateral buttocks. Surrounding areas of erythema which is exquisitely tender to palpation but no definite areas of fluctuance to indicate underlying abscess. No necrotic skin identified. Findings suggestive of contact burn perhaps from incontinence. Back/spine/pelvis image: 1. Area of ulceration as noted above. Skin: Other: As noted in back above Extrem: Other: Status post right BKA with wound VAC sponge in place but no wound VAC device. Results Labs 02/22/23 15:38 02/23/23 05:38 Labs: Abnormal lab results 02/22/23 02/22/23 02/22/23 Range/Units 15:38 15:38 15:38 WBC 20.8 H (4.8-10.8) X10*3/uL RBC 4.32 L (4.60-5.80) X10*6/uL Hgb 12.3 L (14.0-18.0) g/dl Hct 36.9 L (42.0-52.0) % RDW 16.7 H (11.0-16.0) % Plt Count 484 H D (160-400) X10*3/uL MPV 8.9 L (9.4-12.4) fL Immature Gran % (Auto) 0.8 H (0.0-0.4) % Neut % (Auto) 79.6 H (45-73) % Lymph % (Auto) 9.7 L (20-40) % [place] # (Auto) 1.6 H (0.1-1.2) X10*3/uL Abs Immat Gran (auto) 0.17 H (0.00-0.03) X10*3/uL Absolute Neuts (auto) 16.5 H (2.0-8.3) x10*3/uL Sodium 131 L (135-145) mmol/L BUN 20 H (9-16) mg/dL POC Glucose (60-115) mg/dL Random Glucose 245 H (60-115) mg/dL Lactic Acid 2.6 H* (0.5-2.0) mmol/L Urine Protein (Neg-Trace) mg/dL Urine Glucose (UA) (Negative) mg/dL Urine Blood (Negative) Urine Nitrite (Negative) Ur Leukocyte Esterase (Negative) Urine RBC (0-2) /HPF Urine WBC (0-5) /HPF 02/22/23 02/22/23 02/23/23 Range/Units 16:58 21:32 07:11 WBC (4.8-10.8) X10*3/uL RBC (4.60-5.80) X10*6/uL Hgb (14.0-18.0) g/dl Hct (42.0-52.0) % RDW (11.0-16.0) % Plt Count (160-400) X10*3/uL MPV (9.4-12.4) fL Immature Gran % (Auto) (0.0-0.4) % Neut % (Auto) (45-73) % Lymph % (Auto) (20-40) % [place] # (Auto) (0.1-1.2) X10*3/uL Abs Immat Gran (auto) (0.00-0.03) X10*3/uL Absolute Neuts (auto) (2.0-8.3) x10*3/uL Sodium (135-145) mmol/L BUN (9-16) mg/dL POC Glucose 132 H 127 H (60-115) mg/dL Random Glucose (60-115) mg/dL Lactic Acid (0.5-2.0) mmol/L Urine Protein 100 (2+) H (Neg-Trace) mg/dL Urine Glucose (UA) >=1000 H (Negative) mg/dL Urine Blood Moderate (2+) H (Negative) Urine Nitrite Positive H (Negative) Ur Leukocyte Esterase Moderate (2+) H (Negative) Urine RBC 11-20 H (0-2) /HPF Urine WBC >50 H (0-5) /HPF Short CBC 02/22/23 Range/Units 15:38 WBC 20.8 H (4.8-10.8) X10*3/uL Hgb 12.3 L (14.0-18.0) g/dl Hct 36.9 L (42.0-52.0) % Plt Count 484 H D (160-400) X10*3/uL BMP 02/22/23 02/23/23 15:38 05:38 Sodium 131 L Potassium 4.5 Chloride 97 Carbon Dioxide 24 BUN 20 H Creatinine 0.76 0.66 Calcium 10.0 Liver Function 02/22/23 Range/Units 15:38 Total Bilirubin 0.5 (0.0-1.0) mg/dL AST 15 (5-37) U/L ALT 20 (0-40) U/L Alkaline Phosphatase 81 (39-117) U/L Albumin 3.7 (3.5-5.0) g/dL Urine 02/22/23 Range/Units 16:58 Urine Color Yellow Urine Appearance Cloudy Urine pH 5.5 (5.0-9.0) Ur Specific [place] 1.025 (1.005-1.025) Urine Protein 100 (2+) H (Neg-Trace) mg/dL Urine Glucose (UA) >=1000 H (Negative) mg/dL All other labs normal. Assessment and Plan (1) Cellulitis of buttock: Status: Acute (2) Infection of amputation site of lower extremity: Status: Acute Plan 62-year-old male patient with peripheral vascular disease status post right BKA now with skin ulceration involving bilateral buttocks. There is surrounding cellulitis which is exquisitely tender. No definite abscess could be identified and no necrotic tissue requiring debridement at this time. Will attempt to place wound VAC to the right BKA stump. Supplies ordered. Time Spent With Patient Time: Total time managing care of this patient today ____ minutes. Procedures Date of Service Date of Service: 02/23/23
[2023-02-23] MEDS: vancomycin HCL 1,250 MG in 0.9 % Sodium Chloride 250 ML 166.67 MG IV (08:49)
[2023-02-23 08:57] VITALS: PULSE 98; RESP 18; O2SAT 96
[2023-02-23 09:25] LABS: Hematocrit 35.7 % (42.0-52.0); Hemoglobin 11.8 g/dl (14.0-18.0); Mean Corpuscular HGB Conc 33.1 g/dl (31.0-36.0); Mean Corpuscular Hemoglobin 28.3 pg (27.0-33.0); Mean Corpuscular Volume 85.6 fL (80.0-98.0); Mean Platelet Volume 9.6 fL (9.4-12.4); Platelet Count 441 X10*3/uL (160-400); Red Blood Count 4.17 X10*6/uL (4.60-5.80); Red Cell Distribution Width 16.8 % (11.0-16.0); White Blood Count 22.4 X10*3/uL (4.8-10.8)
[2023-02-23 09:46] LABS: Anion Gap 14 (12-20); Blood Urea Nitrogen 19 mg/dL (9-16); Calcium 9.1 mg/dL (8.4-10.2); Carbon Dioxide 24 mmol/L (22-29); Chloride 98 mmol/L (96-108); Creatinine Clr Calc Pharmacy 114.6; Estimated Glomerular Filt Rate > 60; Glucose Random 113 mg/dL (60-115); Potassium 4.6 mmol/L (3.3-5.1); Sodium 131 mmol/L (135-145)
--- NOTE | 2023-02-23 10:36 | P.CONGS_ITS ---
History of Present Illness Consult details Consult date: 02/23/23 Reason for consult: wound care Narrative: Complex 62-year-old gentleman who underwent a right lower extremity BKA with me. Incision line subsequently opened up and there was a nonhealing of the incision line. He had been on a wound VAC. he was brought to the emergency room for sacral decubitus ulcers and UTI. He now presents to us for vascular follow-up. Review of Systems Review of Systems: Yes all other systems are reviewed and are negative Constitutional: Constitutional: Reports no additional constitutional complaints ENT: Reports Normal hearing present Cardiovascular: Cardiovascular: Denies chest pain, Denies chest pain at rest, Denies chest pain with activity and Denies pedal edema Respiratory: Respiratory: Denies cough Gastrointestinal: Gastrointestinal: Denies abdominal pain Musculoskeletal: Musculoskeletal: Denies abnormal gait, Denies muscle cramps and Denies radiating pain into limb Integumentary/Breasts: Skin/Breast: Denies skin ulcer and Denies wounds Neurologic: Reports Normal hearing present and Denies abnormal gait Psychiatric: Psychiatric: Reports no additional psychiatric complaints [facility] Past Medical History Medical History Abscess, perineum Asthma Below-knee amputation of right lower extremity BPH (benign prostatic hyperplasia) CAD (coronary artery disease) Cardiomyopathy Cardiomyopathy Coronary artery disease Diabetes Essential hypertension High cholesterol History of peripheral vascular disease HTN (hypertension) PAD (peripheral artery disease) Type 2 diabetes mellitus with unspecified complications Family History Family History Father No problems noted. Mother Diabetes HTN (hypertension) Sister No problems noted. Sister Diabetes HTN (hypertension) Sister No problems noted. Surgical History Surgical History History of cardiac cath History of surgical removal of pilonidal cyst Hx of hand surgery Hx of hand surgery Hx of varicose vein stripping S/P angiogram of extremity Social History Social History Household Members: None Housing: Apartment Housing Other:: elderly housing Are you a primary personal care worker to a significant other at home: No Do you presently have visiting nurse or other home services: Yes ([employer]-son Rommel) Alcohol intake: never Patient Tobacco Use Status: Current everyday Tobacco user Tobacco use type: Cigarette Cigarette Packs Per Day: 0.5 Cigarettes Per Day: 10 Years Smoked: 15+/- Patient Interested in Nicotine Replacement: No Second Hand Smoke Exposure: No Use of substances other than those prescribed or required for medical reasons: No Currently Displaying Signs/Symptoms of Drug Intoxication Withdrawal: No Have you been hit, kicked, punched, or otherwise hurt by someone within the past year? If so, by whom?: No Advance Directives: Yes Advance Directives on File: Yes Advance Directives Date on File: 12/10/20 Do you have thoughts of harming others: None Do you have a plan to hurt others: No Plan Recently lost weight without trying: No Nutrition Risks: No Nutritional Risk service: No Current occupational status: disabled [employer] Allergies Allergy/AdvReac Type Severity Reaction Status Date / Time No Known Allergies Allergy Verified 02/22/23 14:54 Active Medications: Current Medications Acetaminophen (Acetaminophen 325 Mg Tablet) 650 mg PO Q6H PRN PRN Reason: Pain, Mild (Pain Scale 1-3) Last Admin: 02/22/23 21:53 Dose: 650 mg Al Hydroxide/Mg Hydroxide (Magnesium Hydrox/Alum Hydrox 30 Ml Oral.Susp) 30 ml PO Q4H PRN PRN Reason: Heartburn/Nausea Albuterol Sulfate (Albuterol Sulfate (0.083%) 2.5 Mg/3 Ml Vial.Neb) 2.5 mg INHALE Q4H PRN PRN Reason: Shortness of Breath Last Admin: 02/23/23 06:39 Dose: 2.5 mg Albuterol/Ipratropium (Albuterol/Iprat 2.5/0.5mg 3 Ml Ampul.Neb) 3 ml INHALE Q6H PRN PRN Reason: Shortness Of Breath Artificial Tears (Artificial Tears 15 Ml Drops) 2 drop EYE-BOTH QID PRN PRN Reason: Dry Eye(S) Aspirin (Aspirin Enteric Coated 81 Mg Tablet.Dr) 81 mg PO DAILY [facility] Last Admin: 02/23/23 08:00 Dose: 81 mg Atorvastatin Calcium (Atorvastatin Calcium 80 Mg Tablet) 80 mg PO BEDTIME [facility] Last Admin: 02/22/23 21:53 Dose: 80 mg Carvedilol (Carvedilol 25 Mg Tablet) 25 mg PO BID [facility]; Protocol Last Admin: 02/23/23 08:00 Dose: 25 mg Dextrose (Dextrose 50 % 25 Gm/50 Ml Syringe) 25 gm IVPUSH Q15M PRN; Protocol PRN Reason: per Hypoglycemia Standing Ord. Enoxaparin Sodium (Enoxaparin Sodium 40 Mg/0.4 Ml Syringe) 40 mg SUBCUT Q24H [facility]I Last Admin: 02/22/23 20:34 Dose: 40 mg Furosemide (Furosemide 20 Mg Tablet) 20 mg PO DAILY [facility]; Protocol Last Admin: 02/23/23 08:00 Dose: 20 mg Furosemide (Furosemide 40 Mg Tablet) 40 mg PO DAILY [facility]; Protocol Last Admin: 02/23/23 08:00 Dose: 40 mg Glucose (Glucose Gel 15 Gm Gel..Gram.) 15 gm PO Q15M PRN; Protocol PRN Reason: per Hypoglycemia Standing Ord. Ceftriaxone Sodium 1 gm/ (Sodium Chloride) 50 mls @ 100 mls/hr IV DAILY [facility]I Last Infusion: 02/23/23 08:50 Dose: Infused Vancomycin HCl 1,250 mg/ (Sodium Chloride) 250 mls @ 166.667 mls/hr IV Q12H KARI Last Infusion: 02/23/23 10:34 Dose: Infused Insulin Glargine (Insulin Glargine,Hum.Rec.Anlog 100 Unit/Ml 10 Ml Vial) 42 unit SUBCUT BEDTIME [facility]I Last Admin: 02/22/23 21:52 Dose: 42 unit Insulin Human Lispro (Insulin Lispro 100 Unit/Ml 3 Ml Vial) 0 unit SUBCUT QIDACHS [facility]; Protocol Last Admin: 02/23/23 07:18 Dose: Not Given Lisinopril (Lisinopril 40 Mg Tablet) 40 mg PO DAILY [facility]; Protocol Last Admin: 02/23/23 08:01 Dose: 40 mg Melatonin (Melatonin 3 Mg Tablet) 6 mg PO BEDTIME PRN PRN Reason: Insomnia Last Admin: 02/22/23 21:53 Dose: 6 mg Metformin HCl (Metformin Hcl 1,000 Mg Tablet) 1,000 mg PO BIDWM KARI Last Admin: 02/23/23 08:01 Dose: 1,000 mg Morphine Sulfate (Morphine Sulfate 2 Mg/Ml Cartridge) 2 mg IVPUSH Q6H PRN; Protocol PRN Reason: Pain, Severe (Pain Scale 7-10) Last Admin: 02/23/23 06:30 Dose: 2 mg Multivitamins/Vitamin C (Multivitamin Tablet) 1 tab PO DAILY [facility] Last Admin: 02/23/23 08:01 Dose: 1 tab Omeprazole (Omeprazole 20 Mg Capsule.Dr) 20 mg PO DAILY@0630 [facility] Last Admin: 02/23/23 05:23 Dose: 20 mg Ondansetron HCl (Ondansetron Hcl 4 Mg/2 Ml Vial) 4 mg IVPUSH Q8H PRN PRN Reason: Nausea and Vomiting Pharmacy Consult (Consult Rx Vancomycin Dosing) 1 each MISCELLANE DAILY PRN PRN Reason: Consult order Sodium Chloride (0.9 % Sodium Chloride Flush 3 Ml Syringe) 3 ml IVFLUSH QSHIFT [facility] Last Admin: 02/23/23 08:05 Dose: 3 ml Tiotropium [place] (Tiotropium [place] 2.5 Mcg Inhaler) 2 puff INHALE DAILY [facility] Last Admin: 02/23/23 08:52 Dose: 2 puff Home Medications Medication Instructions Recorded Confirmed Last Taken Type aspirin 81 mg tablet,delayed 81 mg PO DAILY 12/10/20 02/22/23 02/22/23 History release atorvastatin 80 mg tablet 80 mg PO BEDTIME 12/10/20 02/22/23 02/21/23 History insulin glargine 100 unit/mL (3 42 unit subcut BEDTIME 12/10/20 02/22/23 02/21/23 History mL) subcutaneous pen (Lantus Solostar U-100 Insulin) insulin lispro 100 unit/mL 10 unit subcut TIDAC 12/10/20 02/22/23 02/22/23 Hi story subcutaneous pen (Humalog KwikPen (U-100) Insulin) lisinopril 40 mg tablet 40 mg PO DAILY 03/23/22 02/22/23 02/22/23 History metformin 1,000 mg tablet 1,000 mg PO BIDWM 08/18/22 02/22/23 02/22/23 History ipratropium 20 mcg-albuterol 100 1 puff inhalation Q6H PRN 11/14/22 02/22/23 12/21/22 06:00 History mcg/actuation mist for inhalation Shortness Of Breath (Combivent Respimat) pantoprazole 20 mg tablet,delayed 20 mg PO DAILY 05/02/22/23 02/22/23 History release tiotropium bromide 2.5 2 puff inhalation DAILY 11/14/22 02/22/23 02/22/23 History mcg/actuation mist for inhalation (Spiriva Respimat) albuterol sulfate 2.5 mg/3 mL 2.5 mg inhalation Q4H PRN SOB 12/21/22 02/22/23 Unknown History (0.083 %) solution for nebulization furosemide 20 mg tablet 20 mg PO DAILY 12/21/22 02/22/23 02/22/23 History furosemide 40 mg tablet (Lasix) 40 mg PO DAILY 12/21/22 02/22/23 02/22/23 History multivitamin 1 tab PO DAILY 01/14/23 02/22/23 02/22/23 History peg [id number] 1 2 drp ophthalmic (eye) QID PRN Dry 01/14/23 02/22/23 Unknown History %-0.2 %-0.2 % eye drops Eye(S) (Artificial Tears ([id number])) Physical Exam Vital Signs: Vital Signs: Last Vital Signs Temp 97.1 F 02/23/23 03:14 Pulse 98 02/23/23 08:57 Resp 18 02/23/23 08:57 BP 111/56 L 02/23/23 07:07 Pulse Ox 96 02/23/23 07:07 O2 Del Method Room Air 02/23/23 07:07 BMI result Body Mass Index 29.5 Const: General: cooperative, healthy appearing and comfortable O rientation/consciousness: oriented to person, oriented to place and oriented to time HEENT: Head: Yes normal to inspection Neck: Neck: Yes normal visual inspection Carotids: no bruits Chest: Chest palpation & inspection: normal inspection of the chest Resp: Effort & Inspection: normal respiratory effort and able to speak in complete sentences Auscultation: clear to auscultation bilaterally, no crackles, no rales, no rhonchi and no wheezes Cardio: Rate: regular rate Rhythm: regular rhythm Heart sounds: S1 normal heart sound present and S2 normal heart sound present Bruits: no c arotid bruits Peripheral pulses: Peripheral pulses 2+ throughout GI: Inspection: Yes normal to inspection Skin: Other: Right stump dressing changed. Measures 15 x 7 by 0.5 cm. Overall reasonable granulation base. Wounds: no wounds Hair: normal Neuro: General: oriented to person, oriented to place and oriented to time Cranial nerves: Yes CN's II-XII intact bilaterally and Yes Normal hearing present Cognition (Neuro): normal cognition Motor exam (neuro): 5/5 motor strength present throughout Extrem: Other: venous exam: No significant superficial varicosities or spider telangie ctasias, minimal edema General: No clubbing, No cyanosis and No edema Psych: Appearance: grossly normal Mental Status: mental status grossly normal Speech and movement: Normal speech and movement present Results Labs 02/23/23 08:29 02/23/23 08:29 Labs: Abnormal lab results 02/22/23 02/22/23 02/22/23 Range/Units 15:38 15:38 15:38 WBC 20.8 H (4.8-10.8) X10*3/uL RBC 4.32 L (4.60-5.80) X10*6/uL Hgb 12.3 L (14.0-18.0) g/dl Hct 36.9 L (42.0-52.0) % RDW 16.7 H (11.0-16.0) % Plt Count 484 H D (160-400) X10*3/uL MPV 8.9 L (9.4-12.4) fL Immature Gran % (Auto) 0.8 H (0.0-0.4) % Neut % (Auto) 79.6 H (45-73) % Lymph % (Auto) 9.7 L (20-40) % [place] # (Auto) 1.6 H (0.1-1.2) X10*3/uL Abs Immat Gran (auto) 0.17 H (0.00-0.03) X10*3/uL Absolute Neuts (auto) 16.5 H (2.0-8.3) x10*3/uL Sodium 131 L (135-145) mmol/L BUN 20 H (9-16) mg/dL POC Glucose (60-115) mg/dL Random Glucose 245 H (60-115) mg/dL Lactic Acid 2.6 H* (0.5-2.0) mmol/L Urine Protein (Neg-Trace) mg/dL Urine Glucose (UA) (Negative) mg/dL Urine Blood (Negative) Urine Nitrite (Negative) Ur Leukocyte Esterase (Negative) Urine RBC (0-2) /HPF Urine WBC (0-5) /HPF 02/22/23 02/22/23 02/23/23 Range/Units 16:58 21:32 07:11 WBC (4.8-10.8) X10*3/uL RBC (4.60-5.80) X10*6/uL Hgb (14.0-18.0) g/dl Hct (42.0-52.0) % RDW (11.0-16.0) % Plt Count (160-400) X10*3/uL MPV (9.4-12.4) fL Immature Gran % (Auto) (0.0-0.4) % Neut % (Auto) (45-73) % Lymph % (Auto) (20-40) % [place] # (Auto) (0.1-1.2) X10*3/uL Abs Immat Gran (auto) (0.00-0.03) X10*3/uL Absolute Neuts (auto) (2.0-8.3) x10*3/uL Sodium (135-145) mmol/L BUN (9-16) mg/dL POC Glucose 132 H 127 H (60-115) mg/dL Random Glucose (60-115) mg/dL Lactic Acid (0.5-2.0) mmol/L Urine Protein 100 (2+) H (Neg-Trace) mg/dL Urine Glucose (UA) >=1000 H (Negative) mg/dL Urine Blood Moderate (2+) H (Negative) Urine Nitrite Positive H (Negative) Ur Leukocyte Esterase Moderate (2+) H (Negative) Urine RBC 11-20 H (0-2) /HPF Urine WBC >50 H (0-5) /HPF 02/23/23 02/23/23 Range/Units 08:29 08:29 WBC 22.4 H (4.8-10.8) X10*3/uL RBC 4.17 L (4.60-5.80) X10*6/uL Hgb 11.8 L (14.0-18.0) g/dl Hct 35.7 L (42.0-52.0) % RDW 16.8 H (11.0-16.0) % Plt Count 441 H (160-400) X10*3/uL MPV (9.4-12.4) fL Immature Gran % (Auto) (0.0-0.4) % Neut % (Auto) (45-73) % Lymph % (Auto) (20-40) % [place] # (Auto) (0.1-1.2) X10*3/uL Abs Immat Gran (auto) (0.00-0.03) X10*3/uL Absolute Neuts (auto) (2.0-8.3) x10*3/uL Sodium 131 L (135-145) mmol/L BUN 19 H (9-16) mg/dL POC Glucose (60-115) mg/dL Random Glucose (60-115) mg/dL Lactic Acid (0.5-2.0) mmol/L Urine Protein (Neg-Trace) mg/dL Urine Glucose (UA) (Negative) mg/dL Urine Blood (Negative) Urine Nitrite (Negative) Ur Leukocyte Esterase (Negative) Urine RBC (0-2) /HPF Urine WBC (0-5) /HPF Short CBC 02/22/23 02/23/23 Range/Units 15:38 08:29 WBC 20.8 H 22.4 H (4.8-10.8) X10*3/uL Hgb 12.3 L 11.8 L (14.0-18.0) g/dl Hct 36.9 L 35.7 L (42.0-52.0) % Plt Count 484 H D 441 H (160-400) X10*3/uL BMP 02/22/23 02/23/23 02/23/23 15:38 05:38 08:29 Sodium 131 L 131 L Potassium 4.5 4.6 Chloride 97 98 Carbon Dioxide 24 24 BUN 20 H 19 H Creatinine 0.76 0.66 0.68 Calcium 10.0 9.1 D Liver Function 02/22/23 Range/Units 15:38 Total Bilirubin 0.5 (0.0-1.0) mg/dL AST 15 (5-37) U/L ALT 20 (0-40) U/L Alkaline Phosphatase 81 (39-117) U/L Albumin 3.7 (3.5-5.0) g/dL Urine 02/22/23 Range/Units 16:58 Urine Color Yellow Urine Appearance Cloudy Urine pH 5.5 (5.0-9.0) Ur Specific [place] 1.025 (1.005-1.025) Urine Protein 100 (2+) H (Neg-Trace) mg/dL Urine Glucose (UA) >=1000 H (Negative) mg/dL All other labs normal. Assessment and Plan (1) BKA stump complication: Status: Acute Plan In short patient has a nonhealing right BKA stump. Would like the urinary tract infection to resolve prior to any further treatment. At the current time would continue with the wound VAC for the right stump. Unfortunately it has not improved significantly. Will give it a little more of an opportunity to see if it resolves. If not patient may end up with an above knee amputation. We will follow with you. Thank you for allowing us to assist in his care Time Spent With Patient Time: Total time managing care of this patient today ____ minutes. Procedures Date of Service Date of Service: 02/23/23
--- NOTE | 2023-02-23 10:43 | P.PNIM_ITS ---
Subjective Subjective Date of Service: 02/23/23 Interval History: Seen and evaluated this morning Feels sleepy,complains of discomfort in buttock BKA wound clean in dressing Denies fever or chills Physical Exam Vital Signs: Vital Signs: Last Vital Signs Temp 97.1 F 02/23/23 03:14 Pulse 98 02/23/23 08:57 Resp 18 02/23/23 08:57 BP 111/56 L 02/23/23 07:07 Pulse Ox 96 02/23/23 07:07 O2 Del Method Room Air 02/23/23 07:07 BMI result Body Mass Index 29.5 Const: Other: Constitutional: Alert, in no distress, overweight. Mental Status: Oriented to person, place and time. Eyes: Pupils are equal, round and reactive to light. Ear, Nose and Throat: mucous membranes moist. Trachea midline. Respiratory: Clear to auscultation. No wheezing, rales or rhonchi. Cardiovascular: S1 S2 regular. No murmurs, no edema Gastrointestinal: Abdomen soft, non-tender, non-distended. Normal bowel sounds.? Neurologic: Cranial nerves II-XII grossly intact. No focal neurological deficits. Moves all extremities spontaneously.? Skin: right LE stump wound vac dressing in place Objective Data Active Medications Acetaminophen (Acetaminophen 325 Mg Tablet) 650 mg PO Q6H PRN PRN Reason: Pain, Mild (Pain Scale 1-3) Last Admin: 02/22/23 21:53 Dose: 650 mg Documented By: LT Al Hydroxide/Mg Hydroxide (Magnesium Hydrox/Alum Hydrox 30 Ml Oral.Susp) 30 ml PO Q4H PRN PRN Reason: Heartburn/Nausea Albuterol Sulfate (Albuterol Sulfate (0.083%) 2.5 Mg/3 Ml Vial.Neb) 2.5 mg INHALE Q4H PRN PRN Reason: Shortness of Breath Last Admin: 02/23/23 06:39 Dose: 2.5 mg Documented By: CURTIS Albuterol/Ipratropium (Albuterol/Iprat 2.5/0.5mg 3 Ml Ampul.Neb) 3 ml INHALE Q6H PRN PRN Reason: Shortness Of Breath Artificial Tears (Artificial Tears 15 Ml Drops) 2 drop EYE-BOTH QID PRN PRN Reason: Dry Eye(S) Aspirin (Aspirin Enteric Coated 81 Mg Tablet.) 81 mg PO DAILY [facility] Last Admin: 02/23/23 08:00 Dose: 81 mg Documented By: JOHN PAUL Atorvastatin Calcium (Atorvastatin Calcium 80 Mg Tablet) 80 mg PO BEDTIME KARI Last Admin: 02/22/23 21:53 Dose: 80 mg Documented By: TL Carvedilol (Carvedilol 25 Mg Tablet) 25 mg PO BID KARI; Protocol Last Admin: 02/23/23 08:00 Dose: 25 mg Documented By: JOHN PAUL Dextrose (Dextrose 50 % 25 Gm/50 Ml Syringe) 25 gm IVPUSH Q15M PRN; Protocol PRN Reason: per Hypoglycemia Standing Ord. Enoxaparin Sodium (Enoxaparin Sodium 40 Mg/0.4 Ml Syringe) 40 mg SUBCUT Q24H [facility] Last Admin: 02/22/23 20:34 Dose: 40 mg Documented By: TIMOTEO Furosemide (Furosemide 20 Mg Tablet) 20 mg PO DAILY [facility]I; Protocol Last Admin: 02/23/23 08:00 Dose: 20 mg Documented By: JOHN PAUL Furosemide (Furosemide 40 Mg Tablet) 40 mg PO DAILY [facility]; Protocol Last Admin: 02/23/23 08:00 Dose: 40 mg Documented By: JOHN PAUL Glucose (Glucose Gel 15 Gm Gel..Gram.) 15 gm PO Q15M PRN; Protocol PRN Reason: per Hypoglycemia Standing Ord. Ceftriaxone Sodium 1 gm/ (Sodium Chloride) 50 mls @ 100 mls/hr IV DAILY [facility] Last Infusion: 02/23/23 08:50 Dose: 0 mls/hr Documented By: JOHN PAUL Vancomycin HCl 1,250 mg/ (Sodium Chloride) 250 mls @ 166.667 mls/hr IV Q12H [facility] Last Infusion: 02/23/23 10:34 Dose: 0 mls/hr Documented By: JOHN PAUL Insulin Glargine (Insulin Glargine,Hum.Rec.Anlog 100 Unit/Ml 10 Ml Vial) 42 unit SUBCUT BEDTIME [facility] Last Admin: 02/22/23 21:52 Dose: 42 unit Documented By: TL Insulin Human Lispro (Insulin Lispro 100 Unit/Ml 3 Ml Vial) 0 unit SUBCUT QIDACHS [facility]; Protocol Last Admin: 02/23/23 07:18 Dose: Not Given Documented By: JOHN PAUL Non-Admin Reason: No Insulin Coverage Lisinopril (Lisinopril 40 Mg Tablet) 40 mg PO DAILY [facility]; Protocol Last Admin: 02/23/23 08:01 Dose: 40 mg Documented By: JOHN PAUL Melatonin (Melatonin 3 Mg Tablet) 6 mg PO BEDTIME PRN PRN Reason: Insomnia Last Admin: 02/22/23 21:53 Dose: 6 mg Documented By: TL Metformin HCl (Metformin Hcl 1,000 Mg Tablet) 1,000 mg PO BIDWM [facility] Last Admin: 02/23/23 08:01 Dose: 1,000 mg Documented By: JOHN PAUL Morphine Sulfate (Morphine Sulfate 2 Mg/Ml Cartridge) 2 mg IVPUSH Q6H PRN; Protocol PRN Reason: Pain, Severe (Pain Scale 7-10) Last Admin: 02/23/23 06:30 Dose: 2 mg Documented By: TL Multivitamins/Vitamin C (Multivitamin Tablet) 1 tab PO DAILY [facility] Last Admin: 02/23/23 08:01 Dose: 1 tab Documented By: JOHN PAUL Omeprazole (Omeprazole 20 Mg Capsule.Dr) 20 mg PO DAILY@0630 [facility] Last Admin: 02/23/23 05:23 Dose: 20 mg Documented By: TL Ondansetron HCl (Ondansetron Hcl 4 Mg/2 Ml Vial) 4 mg IVPUSH Q8H PRN PRN Reason: Nausea and Vomiting Pharmacy Consult (Consult Rx Vancomycin Dosing) 1 each MISCELLANE DAILY PRN PRN Reason: Consult order Sodium Chloride (0.9 % Sodium Chloride Flush 3 Ml Syringe) 3 ml IVFLUSH QSHIFT [facility] Last Admin: 02/23/23 08:05 Dose: 3 ml Documented By: JOHN PAUL Tiotropium [place] (Tiotropium [place] 2.5 Mcg Inhaler) 2 puff INHALE DAILY [facility] Last Admin: 02/23/23 08:52 Dose: 2 puff Documented By: JAY Labs 02/23/23 08:29 02/23/23 08:29 Labs: Laboratory Results - last 24 hr 02/22/23 02/22/23 02/22/23 15:38 15:38 15:38 MCV 85.4 MCH 28.5 MCHC 33.3 RDW 16.7 H Plt Count 484 H D MPV 8.9 L Immature Gran % (Auto) 0.8 H Neut % (Auto) 79.6 H Lymph % (Auto) 9.7 L Maverick % (Auto) 7.7 Eos % (Auto) 1.8 Baso % (Auto) 0.4 Lymph # (Auto) 2.0 Maverick # (Auto) 1.6 H Eos # (Auto) 0.4 Baso # (Auto) 0.1 Abs Immat Gran (auto) 0.17 H Absolute Neuts (auto) 16.5 H Absolute Nucleated RBC 0.000 Nucleated RBC % (auto) 0.0 Smear Tech's Comments VERIFIED Anion Gap 15 Estim Creat Clear Calc 102.4 Estimated GFR > 60 POC Glucose Random Glucose 245 H Lactic Acid 2.6 H* Lactic Acid F/U @ 2Hr Calcium 10.0 Magnesium 1.8 Total Bilirubin 0.5 AST 15 ALT 20 Alkaline Phosphatase 81 Total Protein 7.6 Albumin 3.7 Urine Color Urine Appearance Urine pH Ur Specific Beatty Urine Protein Urine Glucose (UA) Urine Ketones Urine Blood Urine Nitrite Ur Leukocyte Esterase Urine RBC Urine WBC Ur Squamous Epith Cells Urine Bacteria Hyaline Casts 02/22/23 02/22/23 02/22/23 16:58 18:12 21:32 MCV MCH MCHC RDW Plt Count MPV Immature Gran % (Auto) Neut % (Auto) Lymph % (Auto) Maverick % (Auto) Eos % (Auto) Baso % (Auto) Lymph # (Auto) Maverick # (Auto) Eos # (Auto) Baso # (Auto) Abs Immat Gran (auto) Absolute Neuts (auto) Absolute Nucleated RBC Nucleated RBC % (auto) Smear Tech's Comments Anion Gap Estim Creat Clear Calc Estimated GFR POC Glucose 132 H Random Glucose Lactic Acid Lactic Acid F/U @ 2Hr 1.7 Calcium Magnesium Total Bilirubin AST ALT Alkaline Phosphatase Total Protein Albumin Urine Color Yellow Urine Appearance Cloudy Urine pH 5.5 Ur Specific Beatty 1.025 Urine Protein 100 (2+) H Urine Glucose (UA) >=1000 H Urine Ketones Negative Urine Blood Moderate (2+) H Urine Nitrite Positive H Ur Leukocyte Esterase Moderate (2+) H Urine RBC 11-20 H Urine WBC >50 H Ur Squamous Epith Cells 0-2 Urine Bacteria 4+ Hyaline Casts 0-2 02/23/23 02/23/23 02/23/23 05:38 07:11 08:29 MCV 85.6 MCH 28.3 MCHC 33.1 RDW 16.8 H Plt Count 441 H MPV 9.6 Immature Gran % (Auto) Neut % (Auto) Lymph % (Auto) Maverick % (Auto) Eos % (Auto) Baso % (Auto) Lymph # (Auto) Maverick # (Auto) Eos # (Auto) Baso # (Auto) Abs Immat Gran (auto) Absolute Neuts (auto) Absolute Nucleated RBC 0.000 Nucleated RBC % (auto) 0.0 Smear Tech's Comments Anion Gap Estim Creat Clear Calc 118.1 Estimated GFR > 60 POC Glucose 127 H Random Glucose Lactic Acid Lactic Acid F/U @ 2Hr Calcium Magnesium Total Bilirubin AST ALT Alkaline Phosphatase Total Protein Albumin Urine Color Urine Appearance Urine pH Ur Specific [place] Urine Protein Urine Glucose (UA) Urine Ketones Urine Blood Urine Nitrite Ur Leukocyte Esterase Urine RBC Urine WBC Ur Squamous Epith Cells Urine Bacteria Hyaline Casts 02/23/23 08:29 MCV MCH MCHC RDW Plt Count MPV Immature Gran % (Auto) Neut % (Auto) Lymph % (Auto) Maverick % (Auto) Eos % (Auto) Baso % (Auto) Lymph # (Auto) Maverick # (Auto) Eos # (Auto) Baso # (Auto) Abs Immat Gran (auto) Absolute Neuts (auto) Absolute Nucleated RBC Nucleated RBC % (auto) Smear Tech's Comments Anion Gap 14 Estim Creat Clear Calc 114.6 Estimated GFR > 60 POC Glucose Random Glucose 113 Lactic Acid Lactic Acid F/U @ 2Hr Calcium 9.1 D Magnesium Total Bilirubin AST ALT Alkaline Phosphatase Total Protein Albumin Urine Color Urine Appearance Urine pH Ur Specific [place] Urine Protein Urine Glucose (UA) Urine Ketones Urine Blood Urine Nitrite Ur Leukocyte Esterase Urine RBC Urine WBC Ur Squamous Epith Cells Urine Bacteria Hyaline Casts Microbiology Microbiology Results: Microbiology 02/22/23 Unknown Urine Culture - Preliminary Urine clean catch - Urine roche top Gram negative aracelis Assessment and Plan (1) Acute UTI: Status: Acute (2) Severe sepsis: Status: Acute (3) Acute lactic acidosis: Status: Acute (4) Cellulitis of buttock: Status: Acute Plan 62-year-old male with past medical history of diabetes, HTN, history of cardiomyopathy, history of CAD, BPH, peripheral arterial disease, recent recent below-knee amputation of the right leg due to nonhealing wound on 12/21/22 and was subsequently admitted for non-healing amputation site wound and MRSA bacteremia and required 4 weeks of IV Vanco and placement of Wound vac placement and was discharged on 01/22/23 to [facility], Here with buttock ulcers, UTI and meets severe sepsis criteria # SevereSepsis 2/2 buttock Cellulitis and UTI follow cultures continue Vanco and Ceftriaxone Surgery following for debridment of buttock wounds #Acute lactic acidosis 2/2 sepsis resolved # UTI Ceftriaxone as above # Acute on Chronic hyponatremia Stable at 131 likely from medications and acute illness Follow BMP #s/p ritht BKA non-healing Vascular surgery following, wound vac reapplied # Hx PAD & CAD ASA, Statin, BB, Imdur #HTN Lisinopril, Coreg, Imdur #chronic HFrEF, ICMP no exacerbation, Continue Lasix #DM2 Lantus + SSI, metformin and ADA diet #GERD PPI DVT prophylaixis: Lovenox full code need for inpatient; severe Sepsis that Need IV Abx Time Spent With Patient Time: Total time managing care of this patient today ____ minutes. Quality Stroke Does the patient have a stroke diagnosis?: No VTE Prior VTE?: No VTE Risk Level:: Medical - moderate - high VTE Device Contraindication: Treatment Not Indicated VTE Drug Contraindication: N/A - Med Ordered
[2023-02-23 11:19] LABS: Glucose, Whole Blood 177 mg/dL (60-115)
[2023-02-23] MEDS: Insulin Lispro 100 UNIT/ML 3 ML VIAL SUBCUT ×2 (11:35→16:41)
[2023-02-23 11:56] VITALS: BMI 29.5
--- NOTE | 2023-02-23 14:37 | MHC.CM.PN ---
met w/pt who lives alone he has a transit man will need amb home and is rwquesting a vna
[2023-02-23 15:48] VITALS: BP 127/63; PULSE 88; RESP 18; TEMP 37.1; O2SAT 99
[2023-02-23 16:10] LABS: Glucose, Whole Blood 193 mg/dL (60-115)
[2023-02-23] MEDS: Enoxaparin Sodium 40 MG/0.4 ML SYRINGE SUBCUT (16:41)
[2023-02-23] MEDS: ondansetron HCL 4 MG/2 ML VIAL IVPUSH (18:05)
[2023-02-23 19:33] LABS: Vancomycin Random 11.7 mcg/mL (15-20)
[2023-02-23 20:00] VITALS: BP 111/54; PULSE 81; RESP 20; TEMP 36; O2SAT 96
[2023-02-23 20:53] LABS: Glucose, Whole Blood 121 mg/dL (60-115)
[2023-02-23] MEDS: Insulin Glargine,Hum.rec.anlog 100 UNIT/ML 10 ML VIAL 42 UNIT SUBCUT (21:00)
[2023-02-23] MEDS: Atorvastatin Calcium 80 MG TABLET PO (21:00)
[2023-02-23] MEDS: vancomycin HCL 1,500 MG in 0.9 % Sodium Chloride 500 ML 333.33 MG IV (21:01)
[2023-02-24 03:31] VITALS: BP 103/54; PULSE 70; RESP 18; TEMP 36.6; O2SAT 98
[2023-02-24] MEDS: Morphine Sulfate 2 MG/ML CARTRIDGE IVPUSH ×3 (03:38→23:17)
[2023-02-24 05:53] LABS: Hematocrit 33.6 % (42.0-52.0); Mean Corpuscular HGB Conc 32.7 g/dl (31.0-36.0); Mean Corpuscular Hemoglobin 28.1 pg (27.0-33.0); Mean Corpuscular Volume 85.7 fL (80.0-98.0); Mean Platelet Volume 9.1 fL (9.4-12.4); Platelet Count 411 X10*3/uL (160-400); Red Blood Count 3.92 X10*6/uL (4.60-5.80); Red Cell Distribution Width 16.5 % (11.0-16.0); White Blood Count 18.2 X10*3/uL (4.8-10.8)
[2023-02-24 06:04] LABS: Anion Gap 12 (12-20); Blood Urea Nitrogen 17 mg/dL (9-16); Calcium 8.9 mg/dL (8.4-10.2); Carbon Dioxide 26 mmol/L (22-29); Chloride 98 mmol/L (96-108); Creatinine Clr Calc Pharmacy 132.1; Estimated Glomerular Filt Rate > 60; Glucose Random 74 mg/dL (60-115); Potassium 3.7 mmol/L (3.3-5.1); Sodium 132 mmol/L (135-145)
[2023-02-24] MEDS: Omeprazole 20 MG CAPSULE.DR PO (06:29)
[2023-02-24 07:06] VITALS: BP 92/48; PULSE 84; RESP 18; TEMP 36.1; O2SAT 98
[2023-02-24 07:40] LABS: Glucose, Whole Blood 82 mg/dL (60-115)
[2023-02-24 08:06] VITALS: PULSE 84; RESP 18; O2SAT 98
[2023-02-24] MEDS: Aspirin Enteric Coated 81 MG TABLET.DR PO (08:16)
[2023-02-24] MEDS: 0.9 % Sodium Chloride 1,000 ML 999 ML IV (08:16)
[2023-02-24] MEDS: Multivitamin TABLET 1 TAB PO (08:16)
[2023-02-24] MEDS: Furosemide 20 MG TABLET PO (08:16)
[2023-02-24] MEDS: carvediloL 12.5 MG TABLET PO ×2 (08:16→21:39)
[2023-02-24] MEDS: metFORMIN HCl 1,000 MG TABLET 1000 MG PO ×2 (08:16→17:15)
[2023-02-24] MEDS: cefTRIAXone sodium 1 GM in 0.9 % Sodium Chloride 50 ML IV (09:31)
[2023-02-24] MEDS: polyethylene glycoL 3350 17 GM POWD.PACK PO (10:21)
[2023-02-24] MEDS: vancomycin HCL 1,500 MG in 0.9 % Sodium Chloride 500 ML 333.33 MG IV ×2 (10:22→21:39)
[2023-02-24 11:15] LABS: Glucose, Whole Blood 101 mg/dL (60-115)
--- NOTE | 2023-02-24 14:17 | HO.PM.IMPN ---
Subjective Subjective Date of Service: 02/24/23 Interval History: Seen and evaluated this morning more alert and in better mood complains of discomfort in buttock BKA wound clean in wound vac Denies fever or chills Review of Systems Review of Systems: Yes all other systems are reviewed and are negative Physical Exam Vital Signs: Vital Signs: Last Vital Signs Temp 96.9 F 02/24/23 07:06 Pulse 84 02/24/23 08:06 Resp 18 02/24/23 08:06 BP 92/48 L 02/24/23 07:06 Pulse Ox 98 02/24/23 07:06 O2 Del Method Room Air 02/24/23 07:06 BMI result Body Mass Index 29.5 Const: Other: Constitutional: Alert, in no distress, overweight. Mental Status: Oriented to person, place and time. Eyes: Pupils are equal, round and reactive to light. Ear, Nose and Throat: mucous membranes moist. Trachea midline. Respiratory: Clear to auscultation. No wheezing, rales or rhonchi. Cardiovascular: S1 S2 regular. No murmurs, no edema Gastrointestinal: Abdomen soft, non-tender, non-distended. Normal bowel sounds.? Neurologic: No focal neurological deficits. Moves all extremities spontaneously.? Skin: right LE stump wound vac dressing in place, buttock wounds and ulcers with no significant erythema or drainage Objective Data Active Medications Acetaminophen (Acetaminophen 325 Mg Tablet) 650 mg PO Q6H PRN PRN Reason: Pain, Mild (Pain Scale 1-3) Last Admin: 02/22/23 21:53 Dose: 650 mg Documented By: TL Al Hydroxide/Mg Hydroxide (Magnesium Hydrox/Alum Hydrox 30 Ml Oral.Susp) 30 ml PO Q4H PRN PRN Reason: Heartburn/Nausea Albuterol Sulfate (Albuterol Sulfate (0.083%) 2.5 Mg/3 Ml Vial.Neb) 2.5 mg INHALE Q4H PRN PRN Reason: Shortness of Breath Last Admin: 02/23/23 06:39 Dose: 2.5 mg Documented By: CURTIS Albuterol/Ipratropium (Albuterol/Iprat 2.5/0.5mg 3 Ml Ampul.Neb) 3 ml INHALE Q6H PRN PRN Reason: Shortness Of Breath Artificial Tears (Artificial Tears 15 Ml Drops) 2 drop EYE-BOTH QID PRN PRN Reason: Dry Eye(S) Aspirin (Aspirin Enteric Coated 81 Mg Tablet.Dr) 81 mg PO DAILY [facility] Last Admin: 02/24/23 08:16 Dose: 81 mg Documented By: JOHN PAUL Atorvastatin Calcium (Atorvastatin Calcium 80 Mg Tablet) 80 mg PO BEDTIME [facility]I Last Admin: 02/23/23 21:00 Dose: 80 mg Documented By: THIERRY Carvedilol (Carvedilol 12.5 Mg Tablet) 12.5 mg PO BID [facility]; Protocol Last Admin: 02/24/23 08:16 Dose: 12.5 mg Documented By: JOHN PAUL Dextrose (Dextrose 50 % 25 Gm/50 Ml Syringe) 25 gm IVPUSH Q15M PRN; Protocol PRN Reason: per Hypoglycemia Standing Ord. Enoxaparin Sodium (Enoxaparin Sodium 40 Mg/0.4 Ml Syringe) 40 mg SUBCUT Q24H [facility] Last Admin: 02/23/23 16:41 Dose: 40 mg Documented By: JOHN PAUL Furosemide (Furosemide 20 Mg Tablet) 20 mg PO DAILY [facility]; Protocol Last Admin: 02/24/23 08:16 Dose: 20 mg Documented By: JOHN PAUL Furosemide (Furosemide 40 Mg Tablet) 40 mg PO DAILY [facility]; Protocol Last Admin: 02/23/23 08:00 Dose: 40 mg Documented By: JOHN PAUL Glucose (Glucose Gel 15 Gm Gel..Gram.) 15 gm PO Q15M PRN; Protocol PRN Reason: per Hypoglycemia Standing Ord. Ceftriaxone Sodium 1 gm/ (Sodium Chloride) 50 mls @ 100 mls/hr IV DAILY [facility] Last Infusion: 02/24/23 10:27 Dose: 0 mls/hr Documented By: JOHN PAUL Vancomycin HCl 1,500 mg/ (Sodium Chloride) 500 mls @ 333.333 mls/hr IV Q12H [facility] Last Infusion: 02/24/23 12:02 Dose: 0 mls/hr Documented By: JOHN PAUL Insulin Glargine (Insulin Glargine,Hum.Rec.Anlog 100 Unit/Ml 10 Ml Vial) 42 unit SUBCUT BEDTIME [facility] Last Admin: 02/23/23 21:00 Dose: 42 unit Documented By: THIERRY Insulin Human Lispro (Insulin Lispro 100 Unit/Ml 3 Ml Vial) 0 unit SUBCUT QIDACHS [facility]; Protocol Last Admin: 02/24/23 12:01 Dose: Not Given Documented By: JOHN PAUL Non-Admin Reason: No Insulin Coverage Lisinopril (Lisinopril 40 Mg Tablet) 40 mg PO DAILY [facility]; Protocol Last Admin: 02/23/23 08:01 Dose: 40 mg Documented By: JOHN PAUL Melatonin (Melatonin 3 Mg Tablet) 6 mg PO BEDTIME PRN PRN Reason: Insomnia Last Admin: 02/22/23 21:53 Dose: 6 mg Documented By: CLAUDIOORALLauren Metformin HCl (Metformin Hcl 1,000 Mg Tablet) 1,000 mg PO BIDWM [facility] Last Admin: 02/24/23 08:16 Dose: 1,000 mg Documented By: JOHN PAUL Morphine Sulfate (Morphine Sulfate 2 Mg/Ml Cartridge) 2 mg IVPUSH Q6H PRN; Protocol PRN Reason: Pain, Severe (Pain Scale 7-10) Last Admin: 02/24/23 03:38 Dose: 2 mg Documented By: THIERRY Multivitamins/Vitamin C (Multivitamin Tablet) 1 tab PO DAILY [facility] Last Admin: 02/24/23 08:16 Dose: 1 tab Documented By: JOHN PAUL Omeprazole (Omeprazole 20 Mg Capsule.) 20 mg PO DAILY@0630 [facility] Last Admin: 02/24/23 06:29 Dose: 20 mg Documented By: THIERRY Ondansetron HCl (Ondansetron Hcl 4 Mg/2 Ml Vial) 4 mg IVPUSH Q8H PRN PRN Reason: Nausea and Vomiting Last Admin: 02/23/23 18:05 Dose: 4 mg Documented By: JOHN PAUL Pharmacy Consult (Consult Rx Vancomycin Dosing) 1 each MISCELLANE DAILY PRN PRN Reason: Consult order Polyethylene Glycol (Polyethylene Glycol 3350 17 Gm Powd.Pack) 17 gm PO DAILY [facility] Last Admin: 02/24/23 10:21 Dose: 17 gm Documented By: JOHN PAUL Senna (Senna [place] Extract Oral Syrup 15 Ml Syrup) 7.5 ml PO BEDTIME [facility] Sodium Chloride (0.9 % Sodium Chloride Flush 3 Ml Syringe) 3 ml IVFLUSH QSHIFT [facility] Last Admin: 02/24/23 08:10 Dose: Not Given Documented By: HO.DABA Non-Admin Reason: IV Running Tiotropium [place] (Tiotropium [place] 2.5 Mcg Inhaler) 2 puff INHALE DAILY [facility] Last Admin: 02/24/23 08:05 Dose: 2 puff Documented By: KIM Labs 02/24/23 05:03 02/24/23 05:03 Labs: Laboratory Results - last 24 hr 02/23/23 02/23/23 02/23/23 16:02 19:08 20:42 MCV MCH MCHC RDW Plt Count MPV Absolute Nucleated RBC Nucleated RBC % (auto) Anion Gap Estim Creat Clear Calc Estimated GFR POC Glucose 193 H 121 H Random Glucose Calcium Random Vancomycin 11.7 L 02/24/23 02/24/23 02/24/23 05:03 05:03 05:03 MCV 85.7 MCH 28.1 MCHC 32.7 RDW 16.5 H Plt Count 411 H MPV 9.1 L Absolute Nucleated RBC 0.000 Nucleated RBC % (auto) 0.0 Anion Gap 12 Estim Creat Clear Calc Cancelled 132.1 Estimated GFR Cancelled > 60 POC Glucose Random Glucose 74 Calcium 8.9 Random Vancomycin 02/24/23 02/24/23 07:10 11:11 MCV MCH MCHC RDW Plt Count MPV Absolute Nucleated RBC Nucleated RBC % (auto) Anion Gap Estim Creat Clear Calc Estimated GFR POC Glucose 82 101 Random Glucose Calcium Random Vancomycin Microbiology Microbiology Results: Microbiology 02/22/23 Unknown Urine Culture - Final Urine clean catch - Urine roche top Serratia marcescens 02/22/23 15:38 Blood Culture - Preliminary Blood - Venous No growth after 24 hours. 02/22/23 15:38 Blood Culture - Preliminary Blood - Venous No growth after 24 hours. Assessment and Plan (1) Infected wound: Status: Acute (2) Acute UTI: Status: Acute (3) Severe sepsis: Status: Acute (4) Acute lactic acidosis: Status: Acute Plan 62-year-old male with past medical history of diabetes, HTN, history of cardiomyopathy, history of CAD, BPH, peripheral arterial disease, recent recent below-knee amputation of the right leg due to nonhealing wound on 12/21/22 and was subsequently admitted for non-healing amputation site wound and MRSA bacteremia and required 4 weeks of IV Vanco and placement of Wound vac placement and was discharged on 01/22/23 to [facility], Here with buttock ulcers, UTI and meets severe sepsis criteria # SevereSepsis 2/2 buttock Cellulitis and UTI follow cultures continue Vanco and Ceftriaxone Surgery following for debridment of buttock wounds #Acute lactic acidosis 2/2 sepsis resolved # UTI growing serratia Ceftriaxone as above # Acute on Chronic hyponatremia Stable at 132 likely from medications and acute illness Follow BMP #s/p ritht BKA non-healing Vascular surgery following, wound vac reapplied # Hx PAD & CAD ASA, Statin, BB, Imdur #HTN Lisinopril, Coreg, Imdur #chronic HFrEF, ICMP no exacerbation, Continue Lasix #DM2 Lantus + SSI, metformin and ADA diet #GERD PPI DVT prophylaixis: Lovenox full code need for inpatient; severe Sepsis that Need IV Abx and surgical follow up Time Spent With Patient Time: Total time managing care of this patient today ____ minutes. Quality Stroke Does the patient have a stroke diagnosis?: No VTE Prior VTE?: No VTE Risk Level:: Medical - moderate - high VTE Device Contraindication: Treatment Not Indicated VTE Drug Contraindication: N/A - Med Ordered
[2023-02-24 15:35] VITALS: BP 111/55; PULSE 91; RESP 20; TEMP 36.1; O2SAT 98
[2023-02-24 16:04] LABS: Glucose, Whole Blood 142 mg/dL (60-115)
[2023-02-24] MEDS: Enoxaparin Sodium 40 MG/0.4 ML SYRINGE SUBCUT (17:16)
[2023-02-24] MEDS: 0.9 % Sodium Chloride Flush 3 ML SYRINGE IVFLUSH ×2 (17:19→21:39)
[2023-02-24 19:19] VITALS: BP 133/58; PULSE 91; RESP 20; TEMP 36.1; O2SAT 98
[2023-02-24 20:07] LABS: Glucose, Whole Blood 124 mg/dL (60-115)
[2023-02-24 20:55] LABS: Vancomycin Random 17.3 mcg/mL (15-20)
[2023-02-24] MEDS: Insulin Glargine,Hum.rec.anlog 100 UNIT/ML 10 ML VIAL 42 UNIT SUBCUT (21:38)
[2023-02-24] MEDS: Atorvastatin Calcium 80 MG TABLET PO (21:39)
[2023-02-25 04:00] VITALS: BP 104/51; PULSE 83; RESP 19; TEMP 36.3; O2SAT 96
[2023-02-25] MEDS: Omeprazole 20 MG CAPSULE.DR PO (06:16)
[2023-02-25 07:18] VITALS: BP 122/56; PULSE 79; RESP 18; TEMP 36; O2SAT 98
[2023-02-25 07:32] LABS: Glucose, Whole Blood 82 mg/dL (60-115)
[2023-02-25 07:33] LABS: Hematocrit 34.2 % (42.0-52.0); Hemoglobin 11.2 g/dl (14.0-18.0); Mean Corpuscular HGB Conc 32.7 g/dl (31.0-36.0); Mean Corpuscular Hemoglobin 28.4 pg (27.0-33.0); Mean Corpuscular Volume 86.8 fL (80.0-98.0); Mean Platelet Volume 9.4 fL (9.4-12.4); Platelet Count 400 X10*3/uL (160-400); Red Blood Count 3.94 X10*6/uL (4.60-5.80); Red Cell Distribution Width 16.9 % (11.0-16.0); White Blood Count 14.1 X10*3/uL (4.8-10.8)
--- NOTE | 2023-02-25 07:49 | PM.PNGS ---
Subjective Subjective Date of Service: 02/25/23 Patient reports: no new complaints Physical Exam Vital Signs: Vital Signs: Last Vital Signs Temp 96.8 F 02/25/23 07:18 Pulse 79 02/25/23 07:18 Resp 18 02/25/23 07:18 BP 122/56 L 02/25/23 07:18 Pulse Ox 98 02/25/23 07:18 O2 Del Method Room Air 02/25/23 07:18 BMI result Body Mass Index 29.5 Const: General: confusion Orientation/consciousness: confusion Neuro: General: confusion Extrem: Other: Left leg BKA stump with intact wound VAC. No air leak identified. Objective Data Active Medications Acetaminophen (Acetaminophen 325 Mg Tablet) 650 mg PO Q6H PRN PRN Reason: Pain, Mild (Pain Scale 1-3) Last Admin: 02/22/23 21:53 Dose: 650 mg Documented By: TL Al Hydroxide/Mg Hydroxide (Magnesium Hydrox/Alum Hydrox 30 Ml Oral.Susp) 30 ml PO Q4H PRN PRN Reason: Heartburn/Nausea Albuterol Sulfate (Albuterol Sulfate (0.083%) 2.5 Mg/3 Ml Vial.Neb) 2.5 mg INHALE Q4H PRN PRN Reason: Shortness of Breath Last Admin: 02/23/23 06:39 Dose: 2.5 mg Documented By: CURTIS Albuterol/Ipratropium (Albuterol/Iprat 2.5/0.5mg 3 Ml Ampul.Neb) 3 ml INHALE Q6H PRN PRN Reason: Shortness Of Breath Artificial Tears (Artificial Tears 15 Ml Drops) 2 drop EYE-BOTH QID PRN PRN Reason: Dry Eye(S) Aspirin (Aspirin Enteric Coated 81 Mg Tablet.) 81 mg PO DAILY [facility] Last Admin: 02/24/23 08:16 Dose: 81 mg Documented By: DABGonzalo Atorvastatin Calcium (Atorvastatin Calcium 80 Mg Tablet) 80 mg PO BEDTIME [facility] Last Admin: 02/24/23 21:39 Dose: 80 mg Documented By: THIERRY Carvedilol (Carvedilol 12.5 Mg Tablet) 12.5 mg PO BID [facility]; Protocol Last Admin: 02/24/23 21:39 Dose: 12.5 mg Documented By: THIERRY Dextrose (Dextrose 50 % 25 Gm/50 Ml Syringe) 25 gm IVPUSH Q15M PRN; Protocol PRN Reason: per Hypoglycemia Standing Ord. Enoxaparin Sodium (Enoxaparin Sodium 40 Mg/0.4 Ml Syringe) 40 mg SUBCUT Q24H [facility] Last Admin: 02/24/23 17:16 Dose: 40 mg Documented By: JOHN PAUL Furosemide (Furosemide 20 Mg Tablet) 20 mg PO DAILY [facility]; Protocol Last Admin: 02/24/23 08:16 Dose: 20 mg Documented By: JOHN PAUL Furosemide (Furosemide 40 Mg Tablet) 40 mg PO DAILY [facility]; Protocol Last Admin: 02/23/23 08:00 Dose: 40 mg Documented By: JOHN PAUL Glucose (Glucose Gel 15 Gm Gel..Gram.) 15 gm PO Q15M PRN; Protocol PRN Reason: per Hypoglycemia Standing Ord. Ceftriaxone Sodium 1 gm/ (Sodium Chloride) 50 mls @ 100 mls/hr IV DAILY [facility] Last Infusion: 02/24/23 10:27 Dose: 0 mls/hr Documented By: JOHN PAUL Vancomycin HCl 1,500 mg/ (Sodium Chloride) 500 mls @ 333.333 mls/hr IV Q12H [facility] Last Infusion: 02/24/23 23:11 Dose: 0 mls/hr Documented By: ODRISGriselda Insulin Glargine (Insulin Glargine,Hum.Rec.Anlog 100 Unit/Ml 10 Ml Vial) 42 unit SUBCUT BEDTIME [facility] Last Admin: 02/24/23 21:38 Dose: 42 unit Documented By: TOMASARISGriselda Insulin Human Lispro (Insulin Lispro 100 Unit/Ml 3 Ml Vial) 0 unit SUBCUT QIDACHS [facility]; Protocol Last Admin: 02/25/23 07:38 Dose: Not Given Documented By: JOHN PAUL Non-Admin Reason: No Insulin Coverage Lisinopril (Lisinopril 40 Mg Tablet) 40 mg PO DAILY [facility]; Protocol Last Admin: 02/23/23 08:01 Dose: 40 mg Documented By: JOHN PAUL Melatonin (Melatonin 3 Mg Tablet) 6 mg PO BEDTIME PRN PRN Reason: Insomnia Last Admin: 02/22/23 21:53 Dose: 6 mg Documented By: OZORALB Metformin HCl (Metformin Hcl 1,000 Mg Tablet) 1,000 mg PO BIDWM [facility] Last Admin: 02/24/23 17:15 Dose: 1,000 mg Documented By: JOHN PAUL Morphine Sulfate (Morphine Sulfate 2 Mg/Ml Cartridge) 2 mg IVPUSH Q6H PRN; Protocol PRN Reason: Pain, Severe (Pain Scale 7-10) Last Admin: 02/24/23 23:17 Dose: 2 mg Documented By: THIERRY Multivitamins/Vitamin C (Multivitamin Tablet) 1 tab PO DAILY [facility] Last Admin: 02/24/23 08:16 Dose: 1 tab Documented By: JOHN PAUL Omeprazole (Omeprazole 20 Mg Capsule.Dr) 20 mg PO DAILY@0630 [facility] Last Admin: 02/25/23 06:16 Dose: 20 mg Documented By: THIERRY Ondansetron HCl (Ondansetron Hcl 4 Mg/2 Ml Vial) 4 mg IVPUSH Q8H PRN PRN Reason: Nausea and Vomiting Last Admin: 02/23/23 18:05 Dose: 4 mg Documented By: JOHN PAUL Pharmacy Consult (Consult Rx Vancomycin Dosing) 1 each MISCELLANE DAILY PRN PRN Reason: Consult order Polyethylene Glycol (Polyethylene Glycol 3350 17 Gm Powd.Pack) 17 gm PO DAILY [facility] Last Admin: 02/24/23 10:21 Dose: 17 gm Documented By: JOHN PAUL Senna (Senna Sasser Extract Oral Syrup 15 Ml Syrup) 7.5 ml PO BEDTIME [facility] Last Admin: 02/24/23 21:38 Dose: 7.5 ml Documented By: THIERRY Sodium Chloride (0.9 % Sodium Chloride Flush 3 Ml Syringe) 3 ml IVFLUSH QSHIFT [facility] Last Admin: 02/24/23 21:39 Dose: 3 ml Documented By: THIERRY Tiotropium Catarina (Tiotropium Catarina 2.5 Mcg Inhaler) 2 puff INHALE DAILY [facility] Last Admin: 02/24/23 08:05 Dose: 2 puff Documented By: CHRISTINASNE Labs 02/25/23 05:09 02/24/23 05:03 Labs: Laboratory Results - last 24 hr 02/24/23 02/24/23 02/24/23 11:11 15:54 20:03 MCV MCH MCHC RDW Plt Count MPV Absolute Nucleated RBC Nucleated RBC % (auto) POC Glucose 101 142 H 124 H Random Vancomycin 02/24/23 02/25/23 02/25/23 20:13 05:09 07:28 MCV 86.8 MCH 28.4 MCHC 32.7 RDW 16.9 H Plt Count 400 MPV 9.4 Absolute Nucleated RBC 0.000 Nucleated RBC % (auto) 0.0 POC Glucose 82 Random Vancomycin 17.3 Microbiology Microbiology Results: Microbiology 02/22/23 15:38 Blood Culture - Preliminary Blood - Venous No growth after 48 hours. 02/22/23 15:38 Blood Culture - Preliminary Blood - Venous No growth after 48 hours. 02/22/23 Unknown Urine Culture - Final Urine clean catch - Urine roche top Serratia marcescens Procedures Date of Service Date of Service: 02/25/23 Progress Note: A&P Assessment and plan (1) BKA stump complication: Status: Acute (2) Cellulitis of buttock: Status: Acute Plan No changing buttock wounds. Wound VAC in place without air leak. Plan VAC change tomorrow. Time Spent With Patient Time: Total time managing care of this patient today ____ minutes. Quality Stroke Does the patient have a stroke diagnosis?: No VTE Prior VTE?: No VTE Risk Level:: Medical - moderate - high VTE Device Contraindication: Treatment Not Indicated VTE Drug Contraindication: N/A - Med Ordered
[2023-02-25 07:52] LABS: Anion Gap 11 (12-20); Blood Urea Nitrogen 14 mg/dL (9-16); Calcium 8.7 mg/dL (8.4-10.2); Carbon Dioxide 25 mmol/L (22-29); Chloride 103 mmol/L (96-108); Creatinine Clr Calc Pharmacy 119.9; Estimated Glomerular Filt Rate > 60; Sodium 135 mmol/L (135-145)
[2023-02-25 08:03] LABS: Glucose Random 53 mg/dL (60-115)
[2023-02-25] MEDS: Furosemide 20 MG TABLET PO (08:12)
[2023-02-25] MEDS: cefTRIAXone sodium 1 GM in 0.9 % Sodium Chloride 50 ML IV (08:12)
[2023-02-25] MEDS: carvediloL 12.5 MG TABLET PO (08:12)
[2023-02-25] MEDS: Aspirin Enteric Coated 81 MG TABLET.DR PO (08:12)
[2023-02-25] MEDS: metFORMIN HCl 1,000 MG TABLET 1000 MG PO (08:12)
[2023-02-25] MEDS: Multivitamin TABLET 1 TAB PO (08:12)
[2023-02-25] MEDS: Furosemide 40 MG TABLET PO (08:12)
[2023-02-25] MEDS: 0.9 % Sodium Chloride Flush 3 ML SYRINGE IVFLUSH (08:16)
[2023-02-25 08:33] VITALS: PULSE 77; RESP 18; O2SAT 98
[2023-02-25] MEDS: Morphine Sulfate 2 MG/ML CARTRIDGE IVPUSH (08:47)
[2023-02-25] MEDS: vancomycin HCL 1,500 MG in 0.9 % Sodium Chloride 500 ML 3333.33 MG IV (08:48)
--- NOTE | 2023-02-25 09:22 | P.DS_ITS ---
DS: Providers Provider Date of Service: 02/25/23 Date of admission: 02/22/23 18:17 Primary care physician: [facility] Consults: 02/22/23 18:25 Consult to General Surgery Routine Consulting Provider: [facility] General Surgeons Reason for consultation: buttock ulcers, ? need to debrid Has provider been notified: No Consult to Vascular Surgery Routine Consulting Provider: [facility] Vascular Services Reason for consultation: s/p right BKA with wound vac Has provider been notified: No DS: Diagnosis Discharge Diagnosis (1) BKA stump complication: Status: Acute (2) Cellulitis of buttock: Status: Acute DS: Summary Hospital Course Hospital Course: Admission note HPI 62-year-old male with past medical history of diabetes, HTN, history of cardiomyopathy, history of CAD, BPH, peripheral arterial disease, recent recent below-knee amputation of the right leg due to nonhealing wound on 12/21/22 and was subsequently admitted for non-healing amputation site wound and placement of Wound vac placement and was discharged on 01/22/23 to [facility] where he stayed for 8 days then discharged home after 8 days. He comes in today with bilateral buttock pain that he attributes to prolong sitting on his scooter with very uncomfortable seat. He lives alone, with occasional nursing visit. Work up in ED shows erthyma and escoration of buttocks. See picture. WBC is 20K, lactic acid 2.6. UA is grossly positive for UTI but reports no urinary symptoms. ED gave him Cefazolin and Vanco. Hospital course # Severe Sepsis, Acute lactic acidosis secondary to buttock Cellulitis and UTI. Negative blood cultures. Treated with Vancomycin and Ceftriaxone. Surgery followed the patient for buttock wounds and recommended wound care at time of discharge. # UTI growing serratia. Treated with Ceftriaxone. To be discharged on Ceftin. # Acute on Chronic hyponatremia Improved back to normal. likely from medications and acute illness. #s/p right BKA non-healing, Placed on Wound Vac by dr Dia and recommended to continue at discharge. To follow with dr Dia as outpatient. PT recommended home PT at discharge. Continue wound care at home, VNA visits Physical therapy at home Continue antibiotics as prescribed To follow with dr Dia as outpatient. Time Spent with Patient Time attestation: Total time managing care of this patient today ____ minutes. Discharge coordination time: Greater than 30 minutes Quality: Safe Use of Opioids Does Pt have an Active Cancer Diagnosis on the Problem List?: No Quality: Stroke Does the patient have a stroke diagnosis?: No Physical Exam Vital Signs: Vital Signs: Last Vital Signs Temp 96.8 F 02/25/23 07:18 Pulse 77 02/25/23 08:33 Resp 18 02/25/23 08:33 BP 122/56 L 02/25/23 07:18 Pulse Ox 98 02/25/23 07:18 O2 Del Method Room Air 02/25/23 07:18 BMI result Body Mass Index 29.5 Const: Other: Constitutional: Alert, in no distress, overweight. Mental Status: Oriented to person, place and time. Eyes: Pupils are equal, round and reactive to light. Ear, Nose and Throat: mucous membranes moist. Trachea midline. Respiratory: Clear to auscultation. No wheezing, rales or rhonchi. Cardiovascular: S1 S2 regular. No murmurs, no edema Gastrointestinal: Abdomen soft, non-tender, non-distended. Normal bowel sounds.? Neurologic: No focal neurological deficits. Moves all extremities spontaneously.? Skin: right LE stump wound vac dressing in place, buttock wounds and ulcers with no significant erythema or drainage DS: Data Data Completed and Pending Completed studies during hospitalization [Text1]: Procedures Detachment at Right Lower Leg, Mid, Open Approach (12/21/22) Drainage of Perineum Skin, External Approach (12/10/20) Excision of Right Upper Leg Muscle, Open Approach (01/14/23) Insertion of Infusion Device into Superior Vena Cava, Percutaneous Approach (01/14/23) Introduction of Anesthetic Agent into Peripheral Nerves and Plexi, Percutaneous Approach (01/14/23) Ultrasonography of Superior Vena Cava, Guidance (01/14/23) Labs on day of discharge: Laboratory Results - last 24 hr 02/24/23 02/24/23 02/24/23 11:11 15:54 20:03 WBC RBC Hgb Hct MCV MCH MCHC RDW Plt Count MPV Absolute Nucleated RBC Nucleated RBC % (auto) Sodium Potassium Chloride Carbon Dioxide Anion Gap BUN Creatinine Estim Creat Clear Calc Estimated GFR POC Glucose 101 142 H 124 H Random Glucose Calcium Random Vancomycin 02/24/23 02/25/23 02/25/23 20:13 05:09 05:09 WBC 14.1 H RBC 3.94 L Hgb 11.2 L Hct 34.2 L MCV 86.8 MCH 28.4 MCHC 32.7 RDW 16.9 H Plt Count 400 MPV 9.4 Absolute Nucleated RBC 0.000 Nucleated RBC % (auto) 0.0 Sodium 135 Potassium 4.0 Chloride 103 Carbon Dioxide 25 Anion Gap 11 L BUN 14 Creatinine 0.65 Estim Creat Clear Calc 119.9 Estimated GFR > 60 POC Glucose Random Glucose 53 L* Calcium 8.7 Random Vancomycin 17.3 02/25/23 07:28 WBC RBC Hgb Hct MCV MCH MCHC RDW Plt Count MPV Absolute Nucleated RBC Nucleated RBC % (auto) Sodium Potassium Chloride Carbon Dioxide Anion Gap BUN Creatinine Estim Creat Clear Calc Estimated GFR POC Glucose 82 Random Glucose Calcium Random Vancomycin Preliminary micro results at discharge 02/22/23 15:38 Blood Culture - Preliminary Blood - Venous No growth after 48 hours. 02/22/23 15:38 Blood Culture - Preliminary Blood - Venous No growth after 48 hours. Discharge Plan Discharge Anticipated Discharge Date/Time: 02/25/23 09:16 Patient Disposition: Home Health Service Discharge Diagnosis: Sepsis from cellulitis Urine infection Referrals: [facility] [Primary Care Provider] - 1 Week Discharge Medications: New cefuroxime axetil 500 mg tablet 500 mg PO BID Qty: 10 0RF doxycycline monohydrate 100 mg capsule 100 mg PO BID Qty: 10 0RF Continued lisinopril 40 mg tablet 40 mg PO DAILY carvedilol 25 mg tablet 25 mg PO BID Qty: 180 1RF Rx Instructions: must administer with a meal/food atorvastatin 80 mg tablet 80 mg PO BEDTIME aspirin 81 mg tablet,delayed release (DR/EC) 81 mg PO DAILY insulin lispro [Humalog KwikPen Insulin] 100 unit/mL insulin pen 10 unit subcut TIDAC insulin glargine [Lantus Solostar U-100 Insulin] 100 unit/mL (3 mL) insulin pen 42 unit subcut BEDTIME pantoprazole 20 mg tablet,delayed release (DR/EC) 20 mg PO DAILY Spiriva Respimat 2.5 mcg/actuation mist 2 puff INHALATION DAILY Combivent Respimat 20-100 mcg/actuation mist 1 puff INHALATION Q6H PRN (Reason: Shortness Of Breath) multivitamin Tablet 1 tab PO DAILY Artificial Tears([id number]) 1-0.2-0.2 % Drops 2 drp OPHTHALMIC (EYE) QID PRN (Reason: Dry Eye(S)) albuterol sulfate 2.5 mg /3 mL (0.083 %) solution for nebulization 2.5 mg inhalation Q4H PRN (Reason: SOB) furosemide 20 mg tablet 20 mg PO DAILY furosemide [Lasix] 40 mg tablet 40 mg PO DAILY metformin 1,000 mg tablet 1,000 mg PO BIDWM Discharge Orders: Discharge Order (Routine); Ordered 02/25/23 Ordered By: Shawn Warner Diet: Advance to usual diet Activity on Discharge: As tolerated Stand Alone Forms: Patient Portal Discharge page Care Plan Goals: Read below Health Concerns: Read below Plan of Treatment: Read below Assessment: Treated for Urine infection with antibiotics Treated for skin ulcerations and infection in buttocks with wound care and antibiotics Seen by surgeon for BKA wound , placed on wound VAC. Continue wound care at home, VNA visits Physical therapy at home Continue antibiotics as prescribed To follow with dr Dia as outpatient.
--- NOTE | 2023-02-25 09:27 | W.MHC.F2F ---
Service Date Service Date: 02/25/23 Encounter Date of encounter: 02/25/23 Reasons for Services Signs and symptoms assessed: Multiple buttock wounds Wound Vac for Righ BKA Physical deconditioning Reason for half-way: wound care Reason for physical therapy: home safety and mobility and therapeutic exercises Homebound: Leaving the home is medically contraindicated at this time without the asist of a device and/or another person due th the listed conditions above and below. Reason homebound: unsteady gait / fall risk Certification: Based on the above findings, I certify that this patient is confined to the home and needs intermittent half-way care, physical therapy and/or speech therapy, or continues to need occupational therapy. The patient is under my care, and I have initiated the establishment of the plan of care. The patient will be followed by a physician who will periodically review the plan of care. Time Spent With Patient Time: Total time managing care of this patient today ____ minutes.
--- NOTE | 2023-02-25 10:21 | HO.VASCPN ---
Subjective Subjective Date of Service: 02/25/23 Patient reports: no new complaints and feels better Interval history: Very complex 62-year-old gentleman presents for follow-up regarding nonhealing right BKA stump. At the current time he does have wound VAC intact which appears to be doing relatively well. Of note white count has come down nicely. He now presents for routine follow-up. He had no events overnight. Family member at bedside Physical Exam Vital Signs: Vital Signs: Last Vital Signs Temp 96.8 F 02/25/23 07:18 Pulse 77 02/25/23 08:33 Resp 18 02/25/23 08:33 BP 122/56 L 02/25/23 07:18 Pulse Ox 98 02/25/23 07:18 O2 Del Method Room Air 02/25/23 07:18 BMI result Body Mass Index 29.5 Const: General: cooperative, healthy appearing and no acute distress Orientation/consciousness: oriented to person, oriented to place and oriented to time HEENT: Head: Yes normal to inspection Neck: Carotids: no bruits Chest: Chest palpation & inspection: normal inspection of the chest Resp: Effort & Inspection: normal respiratory effort and able to speak in complete sentences Auscultation: clear to auscultation bilaterally Cardio: Rate: regular rate Heart sounds: S1 normal heart sound present and S2 normal heart sound present GI: Inspection: Yes normal to inspection Skin: Other: Right stump wound VAC intact General skin exam: no rashes or lesions noted Wounds: no wounds Neuro: General: oriented to person, oriented to place, oriented to time and CN's II-XI intact bilaterally Extrem: General: Yes normal to inspection, Yes full ROM and Yes no clubbing, cyanosis or edema Psych: Appearance: grossly normal and well kempt Speech and movement: Normal speech and movement present Affect: normal affect Progress Note: A&P Assessment and plan (1) BKA stump complication: Status: Acute Assessment and Plan: In short patient underwent right BKA on December 21. The incision line has opened. It has been slow to heal and poorly granulating. It appears to be doing okay with a wound VAC. Stable from my perspective for discharge. We can re-evaluate as an outpatient. The patient was warned that he may require further revision or amputation thank can possibly be an above knee amputation. He recognizes this. Will plan for follow-up as an outpatient. Once again stable from my perspective for discharge. I would like to see him back within 2 weeks of discharge. Thank you for allowing us to assist in his care. Time Spent With Patient Time: Total time managing care of this patient today ____ minutes. Procedures Date of Service Date of Service: 02/25/23 Quality Stroke Does the patient have a stroke diagnosis?: No VTE Prior VTE?: No VTE Risk Level:: Medical - moderate - high VTE Device Contraindication: Treatment Not Indicated VTE Drug Contraindication: N/A - Med Ordered
[2023-02-25 11:09] LABS: Glucose, Whole Blood 111 mg/dL (60-115)
--- NOTE | 2023-02-25 16:12 | HO.WOUND ---
Wound Care Consult Reason for consult: buttocks wound and ulcers for eval and follow up Patient was in bed at the time of consult. He was also actively scratching at the wound areas on the buttocks. These areas were open to air and scattered. Does not seem to be pressure related, due to the scattered pattern, could be self inflicted from scratching. Area on the left buttock was a cluster of 8 areas. Wound bed was large fibrin/slough, small pink and dry. Wound edges were attached. No odor. Drainage was hard to assess with no bandages in place and no staining on the bed. Area measured 3.1cm x 4.5cm x 0.1cm. Area on the right buttock was a cluster of 9 areas. Wound bed was large fibrin/slough, small pink and dry. Wound edges were attached. No odor. Again drainage was hard to assess with no bandages in place and no staining on the bed. Area measured 9.5cm x 5.8cm x 0.1cm. And area on the coccyx was a cluster of 3 areas. Wound bed was medium fibrin/slough, medium pink and dry. Wound edges were attached. No odor. And again drainage was hard to assess with no bandages in place and no staining on the bed. Area measured 3.4cm x 1.6cm x 0.1cm. All wound areas cleansed with sea clens wound cleanser. Triad cream applied to wound areas. Covered with foam borders. Recommendation: Cleanse all wound areas with sea clens wound cleanser or normal saline. Apply triad cream to wound areas. Cover with foam borders and change daily. Make sure skin stays dry. Patient seems to have no problems repositioning self in bed so that is not a concern. Patient should refrain from scratching open areas. If there is any questions or concerns, please feel free and reconsult wound care.
== END 2023-02-25 16:09 | disposition home health service (06) | DRG 720 ==
LOC: HO.ED 15:23 → HO.EDOVER 18:25 → HO.S3 18:42
PROVIDERS: Admitting Provider Internal Medicine; Emergency Provider Internal Medicine; PCP Family Medicine; Visit Provider Student in an Organized Health Care Education/Training Program
DX: A41.9 Sepsis, unspecified organism (principal); E87.21 Acute metabolic acidosis; T87.43 Infection of amputation stump, right lower extremity; E11.51 Type 2 diabetes mellitus with diabetic peripheral angiopathy without gangrene; E87.1 Hypo-osmolality and hyponatremia; L03.317 Cellulitis of buttock; I50.22 Chronic systolic (congestive) heart failure; E78.00 Pure hypercholesterolemia, unspecified; F17.210 Nicotine dependence, cigarettes, uncomplicated; I25.10 Atherosclerotic heart disease of native coronary artery without angina pectoris; N39.0 Urinary tract infection, site not specified; N40.0 Benign prostatic hyperplasia without lower urinary tract symptoms; I25.5 Ischemic cardiomyopathy; R65.20 Severe sepsis without septic shock; Y83.5 Amputation of limb(s) as the cause of abnormal reaction of the patient, or of later complication, without mention of misadventure at the time of the procedure; K21.9 Gastro-esophageal reflux disease without esophagitis; Z86.14 Personal history of Methicillin resistant Staphylococcus aureus infection; Z71.6 Tobacco abuse counseling; Z79.4 Long term (current) use of insulin; Z79.82 Long term (current) use of aspirin; Z79.84 Long term (current) use of oral hypoglycemic drugs; Z79.899 Other long term (current) drug therapy
CPT/HCPCS: 36415; 80048; 80053; 80202; 81001; 82565; 82947; 83605; 83735; 85025; 85027; 87040; 87086; 87088; 87186; 94640; 97162; 99284; J0690; J0696; J1650; J2270; J2405; J3370; J3371

== ENCOUNTER → 2023-02-22 18:17 | Outpatient (BNV) | payer MEDICAID, SELFPAY | PROVIDERS: Admitting Provider Internal Medicine; Emergency Provider Internal Medicine; Visit Provider Surgery Vascular Surgery | DX: T87.89 Other complications of amputation stump (principal); Z89.511 Acquired absence of right leg below knee | CPT/HCPCS: 99024 ==

== ENCOUNTER → 2023-02-22 18:17 | Outpatient (BNV) | payer MEDICAID, SELFPAY | PROVIDERS: Admitting Provider Internal Medicine; Emergency Provider Internal Medicine; Visit Provider Surgery | DX: L03.317 Cellulitis of buttock (principal) | CPT/HCPCS: 99222; 99232 ==

== ENCOUNTER → 2023-02-22 18:17 | Outpatient (BNV) | payer MEDICAID, SELFPAY | PROVIDERS: Admitting Provider Internal Medicine; Emergency Provider Internal Medicine; Visit Provider Student in an Organized Health Care Education/Training Program | DX: T87.89 Other complications of amputation stump (principal); Z89.511 Acquired absence of right leg below knee; L03.317 Cellulitis of buttock | CPT/HCPCS: 99223; 99232; 99233; 99239 ==

== ENCOUNTER 2023-03-05 15:55 | Inpatient (IN) | payer MEDICAID, SELFPAY ==
--- NOTE | ~2023-03-05 | XR_ITS ---
EXAMINATION: XR TIBIA AND FIBULA, RIGHT CLINICAL INFORMATION: Osteomyelitis. Pain. COMPARISON: Previous x-ray 01/14/2023 TECHNIQUE: AP and lateral views of the right tibia and fibula were obtained. FINDINGS: There are postsurgical changes from below knee amputation. Surgical margins appear sharp. There are increasing lucencies in the distal remaining tibia. Appearance is questionable for early osteomyelitis. Vascular stent [id number]. Stable appearance to the soft tissues at the amputation site. Skin rangel have been removed. XR/XR tibia fibula RT 2V IMPRESSION: Increasing lucencies in the distal remaining tibia questionable for early osteomyelitis. This could be better evaluated with MRI
[2023-03-05 16:27] VITALS: BP 122/42; BP 130/78; PULSE 80; PULSE 88; RESP 18; TEMP 36.9; O2SAT 100; O2SAT 95; BMI 32.3
--- NOTE | 2023-03-05 16:30 | PC.NURSE ---
Patient reports had bka on the right side in December and area has not healed since then. Reports area has become infected and will not heal. Reports 9/10 pain in the wound. Reports receives wound care at home. Reports large amount of drainage from wound, and more pain than normal. States was taking abt and completed last dose of abt this morning , however does not feel as though is made much of a difference.
--- NOTE | 2023-03-05 16:38 | PC.NURSE ---
right bka dressing removed, large amount of purulent drainage noted on dressing. wound without odor, areas of wound with slough, back side of leg with large area of slough. Center of wound with areas of granulation tissues. Patient states had a wound vac but it has been off x 1 day because it was not functioning.
--- NOTE | 2023-03-05 18:42 | ED.GENADULT ---
HPI - General Adult General Chief complaint: General Medical Stated complaint: LOWER R LIMB AMPUTATION INFECTED Time Seen by Provider: 03/05/23 17:51 Source: patient, RN notes reviewed, old records reviewed and ground crew lines person Mode of arrival: EMS Limitations: language barrier History of Present Illness HPI narrative: 62-year-old male presents for evaluation of right BKA pain Patient had a right BKA on 12/21/2022 due to a nonhealing pretibial wound. He has had complications since due to nonhealing wound and infection The patient was seen by infectious disease, Dr. Meng on 01/19/2023 and it was recommended the patient get at least 4 weeks of IV vancomycin followed by 2-3 months of doxycycline. The patient reports that he is not currently on any antibiotics He states his stump started to hurt again yesterday Denies any fevers, chills He does admit to some foul-smelling drainage Related Data Home Medications Medication Instructions Recorded Confirmed aspirin 81 mg tablet,delayed 81 mg PO DAILY 12/10/20 02/22/23 release atorvastatin 80 mg tablet 80 mg PO BEDTIME 12/10/20 02/22/23 insulin glargine 100 unit/mL (3 42 unit subcut BEDTIME 12/10/20 02/22/23 mL) subcutaneous pen (Lantus Solostar U-100 Insulin) insulin lispro 100 unit/mL 10 unit subcut TIDAC 12/10/20 02/22/23 subcutaneous pen (Humalog KwikPen (U-100) Insulin) lisinopril 40 mg tablet 40 mg PO DAILY 03/23/22 02/22/23 metformin 1,000 mg tablet 1,000 mg PO BIDWM 08/18/22 02/22/23 ipratropium 20 mcg-albuterol 100 1 puff inhalation Q6H PRN 11/14/22 02/22/23 mcg/actuation mist for inhalation Shortness Of Breath (Combivent Respimat) pantoprazole 20 mg tablet,delayed 20 mg PO DAILY 11/14/22 02/22/23 release tiotropium bromide 2.5 2 puff inhalation DAILY 11/14/22 02/22/23 mcg/actuation mist for inhalation (Spiriva Respimat) albuterol sulfate 2.5 mg/3 mL 2.5 mg inhalation Q4H PRN SOB 12/21/22 02/22/23 (0.083 %) solution for nebulization furosemide 20 mg tablet 20 mg PO DAILY 12/21/22 02/22/23 furosemide 40 mg tablet (Lasix) 40 mg PO DAILY 12/21/22 02/22/23 multivitamin 1 tab PO DAILY 01/14/23 02/22/23 peg [id number] 1 2 drp ophthalmic (eye) QID PRN Dry 01/14/23 02/22/23 %-0.2 %-0.2 % eye drops Eye(S) (Artificial Tears ([id number])) Previous Rx's Medication Instructions Recorded carvedilol 25 mg tablet 25 mg PO BID #180 tabs 07/10/22 cefuroxime axetil 500 mg tablet 500 mg PO BID #10 tabs 02/25/23 doxycycline monohydrate 100 mg 100 mg PO BID #10 caps 02/25/23 capsule Allergies Allergy/AdvReac Type Severity Reaction Status Date / Time No Known Allergies Allergy Verified 02/22/23 14:54 Review of Systems Constitutional: Constitutional: Denies chills and Denies fever(s) Cardiovascular: Cardiovascular: Denies chest pain and Denies dyspnea Respiratory: Respiratory: Denies dyspnea Musculoskeletal: Musculoskeletal: Reports other (Pain to right BKA) Integumentary/Breasts: Skin/Breast: Reports wounds (To right BKA stump) [facility] Past Medical History Medical History Abscess, perineum Asthma Below-knee amputation of right lower extremity BPH (benign prostatic hyperplasia) CAD (coronary artery disease) Cardiomyopathy Cardiomyopathy Coronary artery disease Diabetes Essential hypertension High cholesterol History of peripheral vascular disease HTN (hypertension) PAD (peripheral artery disease) Type 2 diabetes mellitus with unspecified complications Surgical History History of cardiac cath History of surgical removal of pilonidal cyst Hx of hand surgery Hx of hand surgery Hx of varicose vein stripping S/P angiogram of extremity Family History Family History Father No problems noted. Mother Diabetes HTN (hypertension) Sister No problems noted. Sister Diabetes HTN (hypertension) Sister No problems noted. Social History Social History Household Members: None Housing: Apartment Housing Other:: elderly housing Are you a primary health care / medical job titles to a significant other at home: No Do you presently have visiting nurse or other home services: Yes (NETWORK ANNOUNCER-son Rommel) Alcohol intake: former Patient Tobacco Use Status: Current everyday Tobacco user Tobacco use type: Cigarette Cigarette Packs Per Day: 0.5 Cigarettes Per Day: 10 Years Smoked: 15+/- Smoked in Last 30 Days: Yes Second Hand Smoke Exposure: No Use of substances other than those prescribed or required for medical reasons: No Advance Directives: Yes Advance Directives Date on File: 12/10/20 service: No Current occupational status: disabled Physical Exam ED Vital Signs: Vital Signs - 24 hr 03/05/23 16:27 Temperature 98.4 F Pulse Rate 80 Respiratory Rate 18 Blood Pressure 122/42 L Pulse Oximetry 100 Oxygen Delivery Method Room Air BMI result Body Mass Index 32.3 Const General: healthy appearing, comfortable, no acute distress, alert and awake Nutritional Appearance: well nourished Orientation/consciousness: patient oriented x3 HENMT Head: Yes normocephalic and Yes atraumatic Eyes Eyelids: Yes eyelids normal Conjunctivae: conjunctivae normal Sclerae: sclerae normal Corneas: corneas normal Pupils: Equal, round and reactive pupils present EOM: EOMs intact bilaterally Neck Neck: Yes full ROM Resp Effort & Inspection: normal respiratory effort, able to speak in complete sentences and not labored Skin General skin exam: elasticity normal Neuro General: patient oriented x3 Cranial nerves: Yes Equal, round and reactive pupils present and Yes Bilaterally intact EOM present Cognition (Neuro): normal cognition Extrem Other: Patient has open wound to right BKA stump. There is minimal foul-smelling drainage. No significant beefy red erythema around this wound Course Reevaluation(s) Reevaluation #1: X-ray shows early osteomyelitis consistent with patient has no infection. Will admit to the hospitalist service for vancomycin and Zosyn. Time: 20:21 Medical Decision Making Medical Decision Making MDM Narrative: 62-year-old male presents for evaluation of nonhealing wound to his right BKA stump. It is not clear why he is not taking antibiotics as it was recommended by Infectious Disease. Plan for labs, x-ray to evaluate for osteomyelitis. The patient's vital signs are stable, he does not appear septic at this time. Differential Diagnosis Differential Diagnoses: The differential diagnosis associated with the presentation includes Chronic right stump pain Cellulitis Nonhealing wound Abscess formation Osteomyelitis Sepsis less likely Admission/Observation Consideration of admission/observation: Escalation of care including admission/observation considered Consult Healthcare Provider Management of the patient was discussed with: Hospitalist Lab Data MDM Lab Attestation statement: I reviewed the patient's lab results. (Patient have a slight leukocytosis of 11.5. A mild anemia consistent with his recent baseline. Normal platelet count. No significant electrolyte abnormalities. Patient's lactic acid is 2.0) 03/05/23 19:11 03/05/23 19:11 Labs: Lab Results 03/05/23 03/05/23 03/05/23 Range/Units 19:11 19:11 19:11 WBC 11.5 H (4.8-10.8) X10*3/uL RBC 3.90 L (4.60-5.80) X10*6/uL Hgb 11.4 L (14.0-18.0) g/dl Hct 35.1 L (42.0-52.0) % MCV 90.0 (80.0-98.0) fL MCH 29.2 (27.0-33.0) pg MCHC 32.5 (31.0-36.0) g/dl RDW 19.2 H (11.0-16.0) % Plt Count 353 (160-400) X10*3/uL MPV 9.5 (9.4-12.4) fL Immature Gran % (Auto) 0.3 (0.0-0.4) % Neut % (Auto) 65.2 (45-73) % Lymph % (Auto) 23.1 (20-40) % [place] % (Auto) 7.4 (2-11) % Eos % (Auto) 3.3 (0-4) % Baso % (Auto) 0.7 (0-2) % Lymph # (Auto) 2.7 (1.2-4.9) X10*3/uL [place] # (Auto) 0.9 (0.1-1.2) X10*3/uL Eos # (Auto) 0.4 (0.0-0.4) X10*3/uL Baso # (Auto) 0.1 (0.0-0.2) X10*3/uL Abs Immat Gran (auto) 0.03 (0.00-0.03) X10*3/uL Absolute Neuts (auto) 7.5 (2.0-8.3) x10*3/uL Absolute Nucleated RBC 0.000 (0.0-0.012) X10*3/uL Nucleated RBC % (auto) 0.0 (0.0-0.2) /100WBC Sodium 140 (135-145) mmol/L Potassium 3.7 (3.3-5.1) mmol/L Chloride 105 (96-108) mmol/L Carbon Dioxide 23 (22-29) mmol/L Anion Gap 16 (12-20) BUN 19 H (9-16) mg/dL Creatinine 0.90 (0.5-1.4) mg/dL Estim Creat Clear Calc 87.4 Estimated GFR > 60 Random Glucose 163 H (60-115) mg/dL Lactic Acid 2.0 (0.5-2.0) mmol/L Calcium 9.1 (8.4-10.2) mg/dL Total Bilirubin 0.3 (0.0-1.0) mg/dL AST 10 (5-37) U/L ALT 14 (0-40) U/L Alkaline Phosphatase 72 (39-117) U/L C-Reactive Protein 0.78 H (< or = 0.50) mg/dL Total Protein 6.9 (6.5-8.0) g/dL Albumin 3.4 L (3.5-5.0) g/dL Lipase 10 (8-78) U/L Radiology Impression Discussion of test interpretation with radiology: I have reviewed the radiologist's reading. (Early osteomyelitis of the right BKA stump) Discharge Plan Discharge Clinical Impression: Osteomyelitis Patient Disposition: Admitted As Inpatient
[2023-03-05 19:18] LABS: MANUAL DIFF FLAG NO
[2023-03-05 19:29] LABS: Basophils Absolute Auto 0.1 X10*3/uL (0.0-0.2); Basophils Percent Auto 0.7 % (0-2); Eosinophils Absolute Auto 0.4 X10*3/uL (0.0-0.4); Eosinophils Percent Auto 3.3 % (0-4); Hematocrit 35.1 % (42.0-52.0); Hemoglobin 11.4 g/dl (14.0-18.0); Imm Gran Abs Auto 0.03 X10*3/uL (0.00-0.03); Imm Gran Pct Auto 0.3 % (0.0-0.4); Lymphocytes Absolute Auto 2.7 X10*3/uL (1.2-4.9); Lymphocytes Percent Auto 23.1 % (20-40); Mean Corpuscular HGB Conc 32.5 g/dl (31.0-36.0); Mean Corpuscular Hemoglobin 29.2 pg (27.0-33.0); Mean Platelet Volume 9.5 fL (9.4-12.4); Monocytes Absolute Auto 0.9 X10*3/uL (0.1-1.2); Monocytes Percent Auto 7.4 % (2-11); Neutrophils Absolute Auto 7.5 x10*3/uL (2.0-8.3); Neutrophils Percent Auto 65.2 % (45-73); Platelet Count 353 X10*3/uL (160-400); Red Cell Distribution Width 19.2 % (11.0-16.0); White Blood Count 11.5 X10*3/uL (4.8-10.8)
[2023-03-05 19:45] LABS: Alanine Aminotransferase 14 U/L (0-40); Albumin Level 3.4 g/dL (3.5-5.0); Alkaline Phosphatase 72 U/L (39-117); Anion Gap 16 (12-20); Aspartate Amino Transferase 10 U/L (5-37); Bilirubin Total 0.3 mg/dL (0.0-1.0); Blood Urea Nitrogen 19 mg/dL (9-16); C Reactive Protein 0.78 mg/dL (< or = 0.50); Calcium 9.1 mg/dL (8.4-10.2); Carbon Dioxide 23 mmol/L (22-29); Chloride 105 mmol/L (96-108); Creatinine Clr Calc Pharmacy 87.4; Estimated Glomerular Filt Rate > 60; Glucose Random 163 mg/dL (60-115); Lipase 10 U/L (8-78); Potassium 3.7 mmol/L (3.3-5.1); Sodium 140 mmol/L (135-145); Total Protein 6.9 g/dL (6.5-8.0)
[2023-03-05] MEDS: 0.9 % Sodium Chloride 1,000 ML 999 ML IV (20:28)
--- NOTE | 2023-03-05 20:41 | P.HPHOSP_ITS ---
History of Present Illness Date of Service: 03/05/23 Attending physician on admission: Betzy Glez Chief Complaint: Right stump pain Pt is a 62-year-old male with a PMH significant for insulin-dependent diabetes type 2,?PAD, cardiomyopathy, HTN, CAD, BPH, HFrEF, BKA on 12/21/2022 who presents to the ED with?right stump pain since yesterday. Patient underwent a BKA on 12/21/2022 after having significant arterial disease with nonhealing ulcers. He was then readmitted to the hospital on 01/14/2023-01/22/2023 for infection at BKA amputation site. Blood cultures grew MRSA and patient underwent excisional debridement of right BKA stump +wound VAC placement on 01/19/2023. Was discharged with PICC line on 4 weeks of IV vancomycin with end date of February 15. Patient re-presented to ED on 02/22/2023 for excoriation and cellulitis of buttocks due to prolonged periods of immobility. Patient is supposed to be using wound VAC at home, though, according to vascular surgery, has questionable compliance with the machine. Patient states he has regularly used it up until yesterday when his stump was too painful for the wound VAC. wound has also been draining a yellowish, non malodorous discharge. Patient denies fever, chills, nausea, vomiting. No chest pain/pressure, palpitations. Denies buttock pain. In the ED labs were significant for leukocytosis of 11.5, H&H stable at 11 0. 4/35.1, ESR 37, C reactive protein 0.78. Electrolytes WNL. Renal function WNL. Lactic acid WNL at 2.0. Hepatic function WNL. X-ray of right tibia and fibula found increasing lucencies in the distal remaining tibia questionable for early osteomyelitis. Pt was treated with morphine, vanco, Zosyn, and IVF. Pt will be admitted to the hospital for treatment further evaluation of likely osteomyeliti s of right stump. Review of Systems Review of Systems: Right stump pain Yellowish, non-malodorous discharge from non-healing wound of right stump Denies fever, chills, nausea, vomiting No chest pain/pressure, palpitations No SOB PMFSH Medical History Abscess, perineum Asthma Below-knee amputation of right lower extremity BKA stump complication BPH (benign prostatic hyperplasia) CAD (coronary artery disease) Cardiomyopathy Cardiomyopathy Coronary artery disease Diabetes Essential hypertension High cholesterol History of peripheral vascular disease HTN (hypertension) Infection of amputation site of lower extremity PAD (peripheral artery disease) Type 2 diabetes mellitus with unspecified complications Family History Father No problems noted. Mother Diabetes HTN (hypertension) Sister No problems noted. Sister Diabetes HTN (hypertension) Sister No problems noted. Surgical History History of cardiac cath History of surgical removal of pilonidal cyst Hx of hand surgery Hx of hand surgery Hx of varicose vein stripping S/P angiogram of extremity Social History Household Members: None Housing: Apartment Housing Other:: elderly housing Are you a primary rn transitional care to a significant other at home: No Do you presently have visiting nurse or other home services: Yes ([employer] SERVICES MANAGER-son Rommel) Alcohol intake: former Patient Tobacco Use Status: Current everyday Tobacco user Tobacco use type: Cigarette Cigarette Packs Per Day: 0.5 Cigarettes Per Day: 10 Years Smoked: 15+/- Smoked in Last 30 Days: Yes Second Hand Smoke Exposure: No Use of substances other than those prescribed or required for medical reasons: No Advance Directives: Yes Advance Directives Date on File: 12/10/20 service: No Current occupational status: disabled Meds Allergies Allergy/AdvReac Type Severity Reaction Status Date / Time No Known Allergies Allergy Verified 02/22/23 14:54 Active Medications: Current Medications Acetaminophen (Acetaminophen 325 Mg Tablet) 650 mg PO Q6H PRN PRN Reason: Pain, Mild (Pain Scale 1-3) Dextrose (Dextrose 50 % 25 Gm/50 Ml Syringe) 25 gm IVPUSH Q15M PRN; Protocol PRN Reason: per Hypoglycemia Standing Ord. Enoxaparin Sodium (Enoxaparin Sodium 40 Mg/0.4 Ml Syringe) 40 mg SUBCUT Q24H KARI Glucose (Glucose Gel 15 Gm Gel..Gram.) 15 gm PO Q15M PRN; Protocol PRN Reason: per Hypoglycemia Standing Ord. Vancomycin HCl 1,500 mg/ (Sodium Chloride) 500 mls @ 333.333 mls/hr IV ONCE ONE Stop: 03/05/23 21:45 Piperacillin Sod/Tazobactam (Sod 3.375 gm/ Sodium Chloride) 50 mls @ 100 mls/hr IV ONCE ONE Stop: 03/05/23 20:45 Sodium Chloride (Ns) 1,000 mls @ 999 mls/hr IV .Q1H1M [facility] Stop: 03/05/23 21:30 Last Admin: 03/05/23 20:28 Dose: 999 mls/hr Piperacillin Sod/Tazobactam (Sod 4.5 gm/ Sodium Chloride) 100 mls @ 200 mls/hr IV Q6H [facility] Insulin Glargine (Insulin Glargine,Hum.Rec.Anlog 100 Unit/Ml 10 Ml Vial) 34 unit SUBCUT ONCE ONE Stop: 03/05/23 20:32 Insulin Human Lispro (Insulin Lispro 100 Unit/Ml 3 Ml Vial) 0 unit SUBCUT QIDACHS [facility]; Protocol Melatonin (Melatonin 3 Mg Tablet) 6 mg PO BEDTIME PRN PRN Reason: Insomnia Ondansetron HCl (Ondansetron Hcl 4 Mg/2 Ml Vial) 4 mg IVPUSH Q8H PRN PRN Reason: Nausea and Vomiting Pharmacy Consult (Consult Rx Vancomycin Dosing) 1 each MISCELLANE DAILY PRN PRN Reason: Consult order Sodium Chloride (0.9 % Sodium Chloride Flush 3 Ml Syringe) [facility] Medications Medication Instructions Recorded Confirmed Last Taken Type aspirin 81 mg tablet,delayed 81 mg PO DAILY 12/10/20 03/05/23 02/22/23 History release atorvastatin 80 mg tablet 80 mg PO BEDTIME 12/10/20 02/22/23 02/21/23 History insulin glargine 100 unit/mL (3 42 unit subcut BEDTIME 12/10/20 03/05/23 02/21/23 History mL) subcutaneous pen (Lantus Solostar U-100 Insulin) insulin lispro 100 unit/mL 10 unit subcut TIDAC 12/10/20 03/05/23 02/22/23 History subcutaneous pen (Humalog KwikPen (U-100) Insulin) lisinopril 40 mg tablet 40 mg PO DAILY 03/23/22 03/05/23 02/22/23 History metformin 1,000 mg tablet 1,000 mg PO BIDWM 08/18/22 03/05/23 02/22/23 History ipratropium 20 mcg-albuterol 100 1 puff inhalation Q6H PRN 11/14/22 03/05/23 12/21/22 06:00 History mcg/actuation mist for inhalation Shortness Of Breath (Combivent Respimat) pantoprazole 20 mg tablet,delayed 20 mg PO DAILY 11/14/22 03/05/23 02/22/23 History release tiotropium bromide 2.5 2 puff inhalation DAILY 11/14/22 03/05/23 02/22/23 History mcg/actuation mist for inhalation (Spiriva Respimat) albuterol sulfate 2.5 mg/3 mL 2.5 mg inhalation Q4H PRN SOB 12/21/22 03/05/23 Unknown History (0.083 %) solution for nebulization furosemide 20 mg tablet 20 mg PO DAILY 12/21/22 03/05/23 02/22/23 History furosemide 40 mg tablet (Lasix) 40 mg PO DAILY 12/21/22 03/05/23 02/22/23 Hist ory multivitamin 1 tab PO DAILY 01/14/23 03/05/23 02/22/23 History peg [id number] 1 2 drp ophthalmic (eye) QID PRN Dry 01/14/23 03/05/23 Unknown History %-0.2 %-0.2 % eye drops Eye(S) (Artificial Tears ([id number])) Physical Exam Vital Signs and Narrative: Vital Signs: Last Vital Signs Temp 98.4 F 03/05/23 16:27 Pulse 80 03/05/23 16:27 Resp 18 03/05/23 16:27 BP 122/42 L 03/05/23 16:27 Pulse Ox 100 03/05/23 16:27 O2 Del Method Room Air 03/05/23 16:27 BMI result Body Mass Index 32.3 Constitutional: Alert, in pain, in no acute distress. Mental Status: Oriented to person, place and time. Eyes: Pupils are equal, round, and reactive to light. Ear, Nose, and Throat: Oropharynx clear, mucous membranes moist. Ears and nose without deformities. Trachea midline. Respiratory: Clear to auscultation bilaterally. No wheezing, rales, or rhonchi. Cardiovascular: S1, S2 regular. No murmurs, rubs, or gallops. Gastrointestinal: Abdomen soft, non-tender, non-distended. Normal bowel sounds. Neurologic: Cranial nerves II-XII are grossly intact bilaterally. No focal neurological deficits. Moves all extremities spontaneously. Extremities: Open wound at site of right BKA. Surrounding skin with erythema and warmth. Minimal non malodorous discharge. See picture below. Psychiatric: Normal mood and affect. Results Labs 03/05/23 19:11 03/05/23 19:11 Labs: Laboratory Results - last 24 hr 03/05/23 03/05/23 03/05/23 19:11 19:11 19:11 MCV 90.0 MCH 29.2 MCHC 32.5 RDW 19.2 H Plt Count 353 MPV 9.5 Immature Gran % (Auto) 0.3 Neut % (Auto) 65.2 Lymph % (Auto) 23.1 [place] % (Auto) 7.4 Eos % (Auto) 3.3 Baso % (Auto) 0.7 Lymph # (Auto) 2.7 [place] # (Auto) 0.9 Eos # (Auto) 0.4 Baso # (Auto) 0.1 Abs Immat Gran (auto) 0.03 Absolute Neuts (auto) 7.5 Absolute Nucleated RBC 0.000 Nucleated RBC % (auto) 0.0 Anion Gap 16 Estim Creat Clear Calc 87.4 Estimated GFR > 60 Random Glucose 163 H Lactic Acid 2.0 Calcium 9.1 Total Bilirubin 0.3 AST 10 ALT 14 Alkaline Phosphatase 72 C-Reactive Protein 0.78 H Total Protein 6.9 Albumin 3.4 L Lipase 10 Imaging Radiologist's Impressions: Impressions Tibia/Fibula X-Ray 03/05/23 19:17 IMPRESSION: Increasing lucencies in the distal remaining tibia questionable for early osteomyelitis. This could be better evaluated with MRI Assessment and Plan (1) Osteomyelitis: Status: Acute Plan Pt is a 62-year-old male with a PMH significant for insulin-dependent diabetes type 2,?PAD, cardiomyopathy, HTN, CAD, BPH, HFrEF, BKA on 12/21/2022 who presents to the ED with?right stump pain since yesterday. Pt will be admitted to the hospital for treatment further evaluation of likely osteomyelitis of right stump. Osteomyelitis of right stump X-ray of right leg suggestive of early osteomyelitis, mildly elevated CRP of 0.78 and ESR of 37, mild leukocytosis of 11.5 Patient with multiple admissions since BKA on 12/21/2022 for nonhealing right stump wound, has had some compliance issues with using wound VAC Patient does not meet sepsis criteria Will treat with vancomycin and Zosyn, started 03/05/2023 Anagesics for pain management Vascular surgery consult Infectious disease consult Follow cultures HFrEF Not in acute exacerbation Continue home furosemide Insulin-dependent diabetes type 2 Hold [address] on sliding scale insulin, Lantus Diabetic diet GERD PPI HTN Continue home meds CAD Aspirin, statin Full Code Attending:?Dr. Glez DVT Prophylaxis: Lovenox Pt will require a hospitalization of at least two nights for treatment of?osteomyelitis of right stump with IV antibiotics in specialist consultation to vascular surgery and infectious disease. Time Spent With Patient Time: Total time managing care of this patient today ____ minutes. Quality Stroke Does the patient have a stroke diagnosis?: No VTE Prior VTE?: No VTE Risk Level:: Medical - moderate - high VTE Device Contraindication: Treatment Not Indicated VTE Drug Contraindication: N/A - Med Ordered
[2023-03-05 20:42] LABS: Erythrocyte Sedimentation Rate 37 MM/HR (0-15)
--- NOTE | 2023-03-05 20:58 | PHA.MEDREC ---
Pharmacy Consult ? Medication Reconciliation Spoke with patient . He states he finished the ABX prescribed on last adm. Pharmacy has completed the medication reconciliation.
--- NOTE | 2023-03-05 21:46 | PHA.PROG ---
Admission Date/Time: March 05, 2023 20:28 Indication: BONE AND JOINT INFECTION Weight in k.718 kg Adjusted body weight in K.6 [place] body weight in Kg: Obesity Dosing Indication % IBW: Serum Creatinine - Last 168 Hours 03/05/23 19:11 Creatinine 0.90 Estimated CrCl and GFR - Last 168 Hours 03/05/23 19:11 Estim Creat Clear Calc 87.4 Estimated GFR > 60 Vancomycin Loading Dose: 1500 Current Vancomycin Dosing Regimen:1 GRAM Q12 HOURS Vancomycin Monitoring using AUC goal of 400 - 600 range with trough as surrogate marker: PREDICTED AUC OF 475 Date and Time for next Vancomycin Level to be drawn: 03/07/23 0800 Pharmacist Comments on Vancomycin Plan: Vancomycin dosing will take advantage of [employer] as a clinical decision support tool that uses Bayesian modeling to calculate individual patient's pharmacokinetic parameters and forecast the patient's drug concentration time course with the target goal AUC 24 range of 400 - 600 mg/L/hr.
[2023-03-05] MEDS: Morphine Sulfate 4 MG/ML CARTRIDGE IVPUSH (21:49)
[2023-03-05] MEDS: Enoxaparin Sodium 40 MG/0.4 ML SYRINGE SUBCUT (21:50)
[2023-03-05] MEDS: Piperacillin Sodium/Tazobactam 3.375 GM in 0.9 % Sodium Chloride 50 ML IV (21:50)
--- NOTE | 2023-03-05 22:06 | PC.NURSE ---
Report attempted x1
[2023-03-05 22:17] LABS: Glucose, Whole Blood 86 mg/dL (60-115)
[2023-03-05] MEDS: Insulin Glargine,Hum.rec.anlog 100 UNIT/ML 10 ML VIAL 34 UNIT SUBCUT (22:25)
[2023-03-05 23:54] VITALS: BMI 30.3
[2023-03-06] MEDS: 0.9 % Sodium Chloride Flush 3 ML SYRINGE IVFLUSH ×4 (00:12→21:57)
[2023-03-06] MEDS: Morphine Sulfate 4 MG/ML CARTRIDGE IVPUSH ×4 (00:17→21:57)
[2023-03-06 00:19] VITALS: BP 114/55; PULSE 84; RESP 18; TEMP 36; O2SAT 100
[2023-03-06] MEDS: vancomycin HCL 1,500 MG in 0.9 % Sodium Chloride 500 ML 333.33 MG IV (00:26)
[2023-03-06] MEDS: carvediloL 25 MG TABLET PO ×3 (00:27→20:34)
[2023-03-06] MEDS: Melatonin 3 MG TABLET 6 MG PO (03:29)
[2023-03-06] MEDS: Acetaminophen 325 MG TABLET 650 MG PO ×2 (03:29→10:31)
[2023-03-06] MEDS: Piperacillin Sodium/Tazobactam 4.5 GM in 0.9 % Sodium Chloride 100 ML IV ×4 (03:31→21:52)
[2023-03-06 06:21] LABS: MANUAL DIFF FLAG NO
[2023-03-06 06:25] LABS: Basophils Absolute Auto 0.1 X10*3/uL (0.0-0.2); Basophils Percent Auto 0.8 % (0-2); Eosinophils Absolute Auto 0.4 X10*3/uL (0.0-0.4); Eosinophils Percent Auto 3.7 % (0-4); Hematocrit 32.3 % (42.0-52.0); Hemoglobin 10.2 g/dl (14.0-18.0); Imm Gran Abs Auto 0.05 X10*3/uL (0.00-0.03); Imm Gran Pct Auto 0.5 % (0.0-0.4); Lymphocytes Absolute Auto 2.2 X10*3/uL (1.2-4.9); Lymphocytes Percent Auto 22.9 % (20-40); Mean Corpuscular HGB Conc 31.6 g/dl (31.0-36.0); Mean Corpuscular Hemoglobin 28.6 pg (27.0-33.0); Mean Corpuscular Volume 90.5 fL (80.0-98.0); Mean Platelet Volume 9.4 fL (9.4-12.4); Monocytes Absolute Auto 0.8 X10*3/uL (0.1-1.2); Neutrophils Absolute Auto 6.2 x10*3/uL (2.0-8.3); Neutrophils Percent Auto 64.1 % (45-73); Platelet Count 300 X10*3/uL (160-400); Red Blood Count 3.57 X10*6/uL (4.60-5.80); Red Cell Distribution Width 19.3 % (11.0-16.0); White Blood Count 9.7 X10*3/uL (4.8-10.8)
[2023-03-06 06:35] LABS: Anion Gap 13 (12-20); Blood Urea Nitrogen 19 mg/dL (9-16); Calcium 8.3 mg/dL (8.4-10.2); Carbon Dioxide 23 mmol/L (22-29); Chloride 108 mmol/L (96-108); Creatinine Clr Calc Pharmacy 94.2; Estimated Glomerular Filt Rate > 60; Glucose Random 71 mg/dL (60-115); Potassium 3.6 mmol/L (3.3-5.1); Sodium 140 mmol/L (135-145)
[2023-03-06 07:29] VITALS: BP 104/57; PULSE 67; RESP 17; TEMP 36.4; O2SAT 96
[2023-03-06 07:37] LABS: Glucose, Whole Blood 82 mg/dL (60-115)
[2023-03-06 08:08] VITALS: PULSE 67; RESP 17; O2SAT 96
--- NOTE | 2023-03-06 08:23 | P.PNIM_ITS ---
Subjective Subjective Date of Service: 03/06/23 Review of Systems follow-up right stump osteomyelitis Patient with complaints of pain to right stump area Physical Exam Vital Signs: Vital Signs: Last Vital Signs Temp 97.5 F 03/06/23 07:29 Pulse 67 03/06/23 08:08 Resp 17 03/06/23 08:08 BP 104/57 L 03/06/23 07:29 Pulse Ox 96 03/06/23 07:29 O2 Del Method Room Air 03/06/23 07:29 BMI result Body Mass Index 30.3 Appearing in no acute distress lung sounds are clear to auscultation heart regular rate rhythm, clear S1, S2 positive bowel sounds, abdomen is soft, nontender neuro patient is alert x3, no focal deficits right stump with eschar noted to lower portion of open wound Objective Data Active Medications Acetaminophen (Acetaminophen 325 Mg Tablet) 650 mg PO Q6H PRN PRN Reason: Pain, Mild (Pain Scale 1-3) Last Admin: 03/06/23 03:29 Dose: 650 mg Documented By: AMIE Albuterol Sulfate (Albuterol Sulfate (0.083%) 2.5 Mg/3 Ml Vial.Neb) 2.5 mg INHALE Q4H PRN PRN Reason: Shortness of Breath Albuterol/Ipratropium (Albuterol/Iprat 2.5/0.5mg 3 Ml Ampul.Neb) 3 ml INHALE Q6H PRN PRN Reason: Shortness Of Breath Artificial Tears (Artificial Tears 15 Ml Drops) 2 drop EYE-BOTH QID PRN PRN Reason: Dry Eye(S) Aspirin (Aspirin Enteric Coated 81 Mg Tablet.Dr) 81 mg PO DAILY [facility] Carvedilol (Carvedilol 25 Mg Tablet) 25 mg PO BID [facility]; Protocol Last Admin: 03/06/23 00:27 Dose: 25 mg Documented By: AMIE Dextrose (Dextrose 50 % 25 Gm/50 Ml Syringe) 25 gm IVPUSH Q15M PRN; Protocol PRN Reason: per Hypoglycemia Standing Ord. Enoxaparin Sodium (Enoxaparin Sodium 40 Mg/0.4 Ml Syringe) 40 mg SUBCUT Q24H [facility] Last Admin: 03/05/23 21:50 Dose: 40 mg Documented By: ELIZABET Furosemide (Furosemide 20 Mg Tablet) 20 mg PO DAILY [facility]; Protocol Furosemide (Furosemide 40 Mg Tablet) 40 mg PO DAILY [facility]; Protocol Glucose (Glucose Gel 15 Gm Gel..Gram.) 15 gm PO Q15M PRN; Protocol PRN Reason: per Hypoglycemia Standing Ord. Piperacillin Sod/Tazobactam (Sod 4.5 gm/ Sodium Chloride) 100 mls @ 200 mls/hr IV Q6H [facility] Last Infusion: 03/06/23 04:01 Dose: 0 mls/hr Documented By: AMIE Vancomycin HCl 1,000 mg/ (Sodium Chloride) 270 mls @ 270 mls/hr IV Q12H [facility] Insulin Human Lispro (Insulin Lispro 100 Unit/Ml 3 Ml Vial) 0 unit SUBCUT QIDACHS [facility]; Protocol Last Admin: 03/05/23 22:19 Dose: Not Given Documented By: ELIZABET Non-Admin Reason: No Insulin Coverage Lisinopril (Lisinopril 40 Mg Tablet) 40 mg PO DAILY [facility]; Protocol Melatonin (Melatonin 3 Mg Tablet) 6 mg PO BEDTIME PRN PRN Reason: Insomnia Last Admin: 03/06/23 03:29 Dose: 6 mg Documented By: AMIE Morphine Sulfate (Morphine Sulfate 4 Mg/Ml Cartridge) 4 mg IVPUSH Q4H PRN; Protocol PRN Reason: Pain, Severe (Pain Scale 7-10) Last Admin: 03/06/23 00:17 Dose: 4 mg Documented By: AMIE Multivitamins/Vitamin C (Multivitamin Tablet) 1 tab PO DAILY [facility] Omeprazole (Omeprazole 20 Mg Capsule.Dr) 20 mg PO DAILY [facility] Ondansetron HCl (Ondansetron Hcl 4 Mg/2 Ml Vial) 4 mg IVPUSH Q8H PRN PRN Reason: Nausea and Vomiting Pharmacy Consult (Consult Rx Vancomycin Dosing) 1 each MISCELLANE DAILY PRN PRN Reason: Consult order Sodium Chloride (0.9 % Sodium Chloride Flush 3 Ml Syringe) 3 ml IVFLUSH QSHIFT [facility] Last Admin: 03/06/23 00:12 Dose: 3 ml Documented By: AMIE Tiotropium Glady (Tiotropium Glady 2.5 Mcg Inhaler) 2 puff INHALE RDAILY [facility] Last Admin: 03/06/23 08:06 Dose: 2 puff Documented By: ESTIVEN Labs 03/06/23 05:59 03/06/23 05:59 Labs: Laboratory Results - last 24 hr 03/05/23 03/05/23 03/05/23 19:11 19:11 19:11 MCV 90.0 MCH 29.2 MCHC 32.5 RDW 19.2 H Plt Count 353 MPV 9.5 Immature Gran % (Auto) 0.3 Neut % (Auto) 65.2 Lymph % (Auto) 23.1 Milam % (Auto) 7.4 Eos % (Auto) 3.3 Baso % (Auto) 0.7 Lymph # (Auto) 2.7 [place] # (Auto) 0.9 Eos # (Auto) 0.4 Baso # (Auto) 0.1 Abs Immat Gran (auto) 0.03 Absolute Neuts (auto) 7.5 Absolute Nucleated RBC 0.000 Nucleated RBC % (auto) 0.0 ESR 37 H Anion Gap 16 Estim Creat Clear Calc 87.4 Estimated GFR > 60 POC Glucose Random Glucose 163 H Lactic Acid Calcium 9.1 Total Bilirubin 0.3 AST 10 ALT 14 Alkaline Phosphatase 72 C-Reactive Protein 0.78 H Total Protein 6.9 Albumin 3.4 L Lipase 03/05/23 03/05/23 03/06/23 19:11 22:12 05:59 MCV 90.5 MCH 28.6 MCHC 31.6 RDW 19.3 H Plt Count 300 MPV 9.4 Immature Gran % (Auto) 0.5 H Neut % (Auto) 64.1 Lymph % (Auto) 22.9 [place] % (Auto) 8.0 Eos % (Auto) 3.7 Baso % (Auto) 0.8 Lymph # (Auto) 2.2 [place] # (Auto) 0.8 Eos # (Auto) 0.4 Baso # (Auto) 0.1 Abs Immat Gran (auto) 0.05 H Absolute Neuts (auto) 6.2 Absolute Nucleated RBC 0.000 Nucleated RBC % (auto) 0.0 ESR Anion Gap Estim Creat Clear Calc Estimated GFR POC Glucose 86 Random Glucose Lactic Acid 2.0 Calcium Total Bilirubin AST ALT Alkaline Phosphatase C-Reactive Protein Total Protein Albumin Lipase 03/06/23 03/06/23 05:59 07:31 MCV MCH MCHC RDW Plt Count MPV Immature Gran % (Auto) Neut % (Auto) Lymph % (Auto) [place] % (Auto) Eos % (Auto) Baso % (Auto) Lymph # (Auto) [place] # (Auto) Eos # (Auto) Baso # (Auto) Abs Immat Gran (auto) Absolute Neuts (auto) Absolute Nucleated RBC Nucleated RBC % (auto) ESR Anion Gap 13 Estim Creat Clear Calc 94.2 Estimated GFR > 60 POC Glucose 82 Random Glucose 71 Lactic Acid Calcium 8.3 L D Total Bilirubin AST ALT Alkaline Phosphatase C-Reactive Protein Total Protein Albumin Lipase Assessment and Plan (1) Osteomyelitis: Status: Acute Plan 62-year-old male with a PMH significant for insulin-dependent diabetes type 2,?PAD, cardiomyopathy, HTN, CAD, BPH, HFrEF, BKA on 12/21/2022 who presents to the ED with?right stump pain since yesterday. Pt will be admitted to the hospital for treatment further evaluation of likely osteomyelitis of right stump. Osteomyelitis of right stump X-ray of right leg suggestive of early osteomyelitis, mildly elevated CRP of 0.78 and ESR of 37, mild leukocytosis of 11.5 Patient with multiple admissions since BKA on 12/21/2022 for nonhealing right stump wound, has had some compliance issues with using wound VAC continue vancomycin and Zosyn, started 03/05/2023 Anagesics for pain management Vascular surgery consult Infectious disease consult Follow cultures HFrEF Not in acute exacerbation Continue home furosemide Insulin-dependent diabetes type 2 Hold home meds Will place on sliding scale insulin, Lantus Diabetic diet GERD PPI HTN Continue home meds CAD Aspirin, statin Full Code Attending: Dr. Royal DVT Prophylaxis: Lovenox continue hospitalization for treatment of?osteomyelitis of right stump with IV antibiotics in specialist consultation to vascular surgery and infectious disease. Time Spent With Patient Time: Total time managing care of this patient today ____ minutes. Quality Stroke Does the patient have a stroke diagnosis?: No VTE Prior VTE?: No VTE Risk Level:: Medical - moderate - high VTE Device Contraindication: Treatment Not Indicated VTE Drug Contraindication: N/A - Med Ordered
[2023-03-06] MEDS: lisinopriL 40 MG TABLET PO (10:32)
[2023-03-06] MEDS: Furosemide 20 MG TABLET PO (10:32)
[2023-03-06] MEDS: Aspirin Enteric Coated 81 MG TABLET.DR PO (10:32)
[2023-03-06] MEDS: Omeprazole 20 MG CAPSULE.DR PO (10:33)
[2023-03-06] MEDS: Furosemide 40 MG TABLET PO (10:33)
[2023-03-06] MEDS: Multivitamin TABLET 1 TAB PO (10:33)
[2023-03-06 11:32] LABS: Glucose, Whole Blood 103 mg/dL (60-115)
[2023-03-06] MEDS: vancomycin HCL 1,000 MG in 0.9 % Sodium Chloride 250 ML 270 MG IV (12:56)
--- NOTE | 2023-03-06 14:28 | MHC.CM.PN ---
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
[2023-03-06 16:00] VITALS: BP 116/55; PULSE 64; RESP 20; TEMP 36; O2SAT 100
[2023-03-06 16:18] LABS: Glucose, Whole Blood 96 mg/dL (60-115)
[2023-03-06 20:00] VITALS: BP 104/48; PULSE 64; RESP 20; TEMP 36; O2SAT 100
[2023-03-06 20:21] LABS: Glucose, Whole Blood 120 mg/dL (60-115)
[2023-03-06] MEDS: Enoxaparin Sodium 40 MG/0.4 ML SYRINGE SUBCUT (20:34)
[2023-03-07] MEDS: vancomycin HCL 1,000 MG in 0.9 % Sodium Chloride 250 ML 270 MG IV ×2 (01:29→13:36)
[2023-03-07 03:29] VITALS: BP 115/58; PULSE 66; RESP 18; TEMP 36.1; O2SAT 99
[2023-03-07] MEDS: Piperacillin Sodium/Tazobactam 4.5 GM in 0.9 % Sodium Chloride 100 ML IV ×4 (03:59→21:37)
[2023-03-07] MEDS: Morphine Sulfate 4 MG/ML CARTRIDGE IVPUSH ×3 (04:39→16:21)
[2023-03-07 06:34] LABS: Estimated Glomerular Filt Rate > 60
[2023-03-07 07:09] VITALS: BP 105/54; PULSE 72; RESP 17; TEMP 36.1; O2SAT 95
[2023-03-07 07:34] LABS: Glucose, Whole Blood 87 mg/dL (60-115)
[2023-03-07 08:01] VITALS: PULSE 72; RESP 17; O2SAT 95
--- NOTE | 2023-03-07 09:21 | P.PNIM_ITS ---
Subjective Subjective Date of Service: 03/07/23 Review of Systems follow-up right stump osteomyelitis Patient with complaints of pain to right stump area Physical Exam Vital Signs: Vital Signs: Last Vital Signs Temp 97.0 F 03/07/23 07:09 Pulse 72 03/07/23 08:01 Resp 17 03/07/23 08:01 BP 105/54 L 03/07/23 07:09 Pulse Ox 95 03/07/23 07:09 O2 Del Method Room Air 03/07/23 07:09 BMI result Body Mass Index 30.3 Appearing in no acute distress lung sounds are clear to auscultation heart regular rate rhythm, clear S1, S2 positive bowel sounds, abdomen is soft, nontender neuro patient is alert x3, no focal deficits large area to right stump, eschar to lower aspect of wound, some pink granulating tissue noted,most of stump area affected Objective Data Active Medications Acetaminophen (Acetaminophen 325 Mg Tablet) 650 mg PO Q6H PRN PRN Reason: Pain, Mild (Pain Scale 1-3) Last Admin: 03/06/23 10:31 Dose: 650 mg Documented By: MERCEDES Albuterol Sulfate (Albuterol Sulfate (0.083%) 2.5 Mg/3 Ml Vial.Neb) 2.5 mg INHALE Q4H PRN PRN Reason: Shortness of Breath Albuterol/Ipratropium (Albuterol/Iprat 2.5/0.5mg 3 Ml Ampul.Neb) 3 ml INHALE Q6H PRN PRN Reason: Shortness Of Breath Artificial Tears (Artificial Tears 15 Ml Drops) 2 drop EYE-BOTH QID PRN PRN Reason: Dry Eye(S) Aspirin (Aspirin Enteric Coated 81 Mg Tablet.) 81 mg PO DAILY [facility] Last Admin: 03/06/23 10:32 Dose: 81 mg Documented By: MERCEDES Carvedilol (Carvedilol 25 Mg Tablet) 25 mg PO BID [facility]; Protocol Last Admin: 03/06/23 20:34 Dose: 25 mg Documented By: THIERRY Dextrose (Dextrose 50 % 25 Gm/50 Ml Syringe) 25 gm IVPUSH Q15M PRN; Protocol PRN Reason: per Hypoglycemia Standing Ord. Enoxaparin Sodium (Enoxaparin Sodium 40 Mg/0.4 Ml Syringe) 40 mg SUBCUT Q24H [facility] Last Admin: 03/06/23 20:34 Dose: 40 mg Documented By: THIERRY Furosemide (Furosemide 20 Mg Tablet) 20 mg PO DAILY [facility]; Protocol Last Admin: 03/06/23 10:32 Dose: 20 mg Documented By: MERCEDES Furosemide (Furosemide 40 Mg Tablet) 40 mg PO DAILY [facility]; Protocol Last Admin: 03/06/23 10:33 Dose: 40 mg Documented By: MERCEDES Glucose (Glucose Gel 15 Gm Gel..Gram.) 15 gm PO Q15M PRN; Protocol PRN Reason: per Hypoglycemia Standing Ord. Piperacillin Sod/Tazobactam (Sod 4.5 gm/ Sodium Chloride) 100 mls @ 200 mls/hr IV Q6H [facility] Last Infusion: 03/07/23 04:43 Dose: 0 mls/hr Documented By: THIERRY Vancomycin HCl 1,000 mg/ (Sodium Chloride) 270 mls @ 270 mls/hr IV Q12H [facility] Last Infusion: 03/07/23 02:38 Dose: 0 mls/hr Documented By: THIERRY Insulin Human Lispro (Insulin Lispro 100 Unit/Ml 3 Ml Vial) 0 unit SUBCUT QIDACHS [facility]; Protocol Last Admin: 03/06/23 20:38 Dose: Not Given Documented By: THIERRY Non-Admin Reason: No Insulin Coverage Lisinopril (Lisinopril 40 Mg Tablet) 40 mg PO DAILY [facility]; Protocol Last Admin: 03/06/23 10:32 Dose: 40 mg Documented By: EMRCEDES Melatonin (Melatonin 3 Mg Tablet) 6 mg PO BEDTIME PRN PRN Reason: Insomnia Last Admin: 03/06/23 03:29 Dose: 6 mg Documented By: AMIE Morphine Sulfate (Morphine Sulfate 4 Mg/Ml Cartridge) 4 mg IVPUSH Q4H PRN; Protocol PRN Reason: Pain, Severe (Pain Scale 7-10) Last Admin: 03/07/23 04:39 Dose: 4 mg Documented By: THIERRY Multivitamins/Vitamin C (Multivitamin Tablet) 1 tab PO DAILY [facility] Last Admin: 03/06/23 10:33 Dose: 1 tab Documented By: MERCEDES Omeprazole (Omeprazole 20 Mg Capsule.Dr) 20 mg PO DAILY [facility] Last Admin: 03/06/23 10:33 Dose: 20 mg Documented By: MERCEDES Ondansetron HCl (Ondansetron Hcl 4 Mg/2 Ml Vial) 4 mg IVPUSH Q8H PRN PRN Reason: Nausea and Vomiting Pharmacy Consult (Consult Rx Vancomycin Dosing) 1 each MISCELLANE DAILY PRN PRN Reason: Consult order Sodium Chloride (0.9 % Sodium Chloride Flush 3 Ml Syringe) 3 ml IVFLUSH QSHIFT [facility] Last Admin: 03/06/23 21:57 Dose: 3 ml Documented By: ODRISGriselda Tiotropium [place] (Tiotropium [place] 2.5 Mcg Inhaler) 2 puff INHALE RDAILY [facility] Last Admin: 03/07/23 08:00 Dose: 2 puff Documented By: RONCARR Labs 03/06/23 05:59 03/07/23 05:59 Labs: Laboratory Results - last 24 hr 03/06/23 03/06/23 03/06/23 11:29 16:08 20:11 Estim Creat Clear Calc Estimated GFR POC Glucose 103 96 120 H 03/07/23 03/07/23 05:59 07:14 Estim Creat Clear Calc 82.0 Estimated GFR > 60 POC Glucose 87 Microbiology Microbiology Results: Microbiology 03/05/23 19:10 Blood Culture - Preliminary Blood - Venous No growth after 24 hours. Assessment and Plan (1) Osteomyelitis: Status: Acute Plan 62-year-old male with a PMH significant for insulin-dependent diabetes type 2,?PAD, cardiomyopathy, HTN, CAD, BPH, HFrEF, BKA on 12/21/2022 who presents to the ED with?right stump pain since yesterday. Pt will be admitted to the hospital for treatment further evaluation of likely osteomyelitis of right stump. Osteomyelitis of right stump X-ray of right leg suggestive of early osteomyelitis, mildly elevated CRP of 0.78 and ESR of 37, mild leukocytosis of 11.5 Patient with multiple admissions since BKA on 12/21/2022 for nonhealing right stump wound, has had some compliance issues with using wound VAC continue vancomycin and Zosyn, started 03/05/2023 Anagesics for pain management Vascular surgery consult Infectious disease consult Follow cultures HFrEF Not in acute exacerbation Continue home furosemide Insulin-dependent diabetes type 2 Hold home meds Will place on sliding scale insulin, Lantus Diabetic diet GERD PPI HTN Continue home meds CAD Aspirin, statin Full Code Attending: Dr. Royal DVT Prophylaxis: Lovenox continue hospitalization for treatment of?osteomyelitis of right stump with IV antibiotics in specialist consultation to vascular surgery and infectious disease. Time Spent With Patient Time: Total time managing care of this patient today ____ minutes. Quality Stroke Does the patient have a stroke diagnosis?: No VTE Prior VTE?: No VTE Risk Level:: Medical - moderate - high VTE Device Contraindication: Treatment Not Indicated VTE Drug Contraindication: N/A - Med Ordered
[2023-03-07] MEDS: 0.9 % Sodium Chloride Flush 3 ML SYRINGE IVFLUSH ×2 (09:55→16:22)
[2023-03-07] MEDS: Furosemide 40 MG TABLET PO (10:00)
[2023-03-07] MEDS: Furosemide 20 MG TABLET PO (10:00)
[2023-03-07] MEDS: Omeprazole 20 MG CAPSULE.DR PO (10:00)
[2023-03-07] MEDS: carvediloL 25 MG TABLET PO ×2 (10:00→21:36)
[2023-03-07] MEDS: Multivitamin TABLET 1 TAB PO (10:00)
[2023-03-07] MEDS: lisinopriL 40 MG TABLET PO (10:00)
[2023-03-07] MEDS: Aspirin Enteric Coated 81 MG TABLET.DR PO (10:00)
[2023-03-07 11:28] LABS: Glucose, Whole Blood 105 mg/dL (60-115)
--- NOTE | 2023-03-07 13:11 | HE.PHANOTE ---
RE: NIKI Patients level came back this morning at 13. Patients level was drawn 90 minutes late however, level could have been higher. Will leave dose the same at 1000 mg Q12H. predicted AUC 554. Next level to be drawn 03/08 @1100. Renal function, regarding scr, is slowly creeping up. Pharmacy to monitor daily
[2023-03-07 15:48] VITALS: BP 123/57; PULSE 66; RESP 24; TEMP 35.5; O2SAT 97
[2023-03-07 16:26] LABS: Glucose, Whole Blood 143 mg/dL (60-115)
[2023-03-07] MEDS: ondansetron HCL 4 MG/2 ML VIAL IVPUSH (18:39)
[2023-03-07 20:00] VITALS: BP 107/79; PULSE 76; RESP 20; TEMP 35.7; O2SAT 96
[2023-03-07] MEDS: Enoxaparin Sodium 40 MG/0.4 ML SYRINGE SUBCUT (20:00)
[2023-03-07 21:03] LABS: Glucose, Whole Blood 244 mg/dL (60-115)
[2023-03-07] MEDS: Insulin Lispro 100 UNIT/ML 3 ML VIAL SUBCUT (21:36)
[2023-03-07] MEDS: Melatonin 3 MG TABLET 6 MG PO (23:39)
[2023-03-07] MEDS: Acetaminophen 325 MG TABLET 650 MG PO (23:39)
[2023-03-07 23:59] VITALS: BP 121/60; PULSE 68; RESP 18; TEMP 36.1; O2SAT 99
[2023-03-08] VITALS (7 sets, daily range): BP systolic 111–125; BP diastolic 51–62; PULSE 63–68; RESP 16–19; TEMP 36.2–36.9; O2SAT 95–99
--- NOTE | 2023-03-08 00:06 | P.CNID_ITS ---
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 He also has yellow drainage from area. He has no fever or chills. I had seen him once 01/14 in hospital and according to chart he finished six weeks IV Vancomycin and Ceftriaxone on 02/23. He had been given a wound vac and had poor compliance and now is not with wound vac due to infection. [facility] Past Medical History Medical History Abscess, perineum Asthma Below-knee amputation of right lower extremity BKA stump complication BPH (benign prostatic hyperplasia) CAD (coronary artery disease) Cardiomyopathy Cardiomyopathy Coronary artery disease Diabetes Essential hypertension High cholesterol History of peripheral vascular disease HTN (hypertension) Infection of amputation site of lower extremity PAD (peripheral artery disease) Type 2 diabetes mellitus with unspecified complications Family History Family History Father No problems noted. Mother Diabetes HTN (hypertension) Sister No problems noted. Sister Diabetes HTN (hypertension) Sister No problems noted. Family history: reviewed and not pertinent Surgical History Surgical History History of cardiac cath History of surgical removal of pilonidal cyst Hx of hand surgery Hx of hand surgery Hx of varicose vein stripping S/P angiogram of extremity Social History Social History Household Members: None Housing: Apartment Housing Other:: elderly housing Are you a primary patient care associate to a significant other at home: No Do you presently have visiting nurse or other home services: Yes Alcohol intake: former Patient Tobacco Use Status: Current everyday Tobacco user Tobacco use type: Cigarette Cigarette Packs Per Day: 0.5 Cigarettes Per Day: 10.0 Years Smoked: 15+/- Second Hand Smoke Exposure: No Advance Directives Date on File: 12/10/20 service: No Current occupational status: disabled Meds Allergies Allergy/AdvReac Type Severity Reaction Status Date / Time No Known Allergies Allergy Verified 02/22/23 14:54 Active Medications: Current Medications Acetaminophen (Acetaminophen 325 Mg Tablet) 650 mg PO Q6H PRN PRN Reason: Pain, Mild (Pain Scale 1-3) Last Admin: 03/07/23 23:39 Dose: 650 mg Albuterol Sulfate (Albuterol Sulfate (0.083%) 2.5 Mg/3 Ml Vial.Neb) 2.5 mg INHALE Q4H PRN PRN Reason: Shortness of Breath Albuterol/Ipratropium (Albuterol/Iprat 2.5/0.5mg 3 Ml Ampul.Neb) 3 ml INHALE Q6H PRN PRN Reason: Shortness Of Breath Artificial Tears (Artificial Tears 15 Ml Drops) 2 drop EYE-BOTH QID PRN PRN Reason: Dry Eye(S) Aspirin (Aspirin Enteric Coated 81 Mg Tablet.Dr) 81 mg PO DAILY [facility] Last Admin: 03/07/23 10:00 Dose: 81 mg Carvedilol (Carvedilol 25 Mg Tablet) 25 mg PO BID [facility]; Protocol Last Admin: 03/07/23 21:36 Dose: 25 mg Dextrose (Dextrose 50 % 25 Gm/50 Ml Syringe) 25 gm IVPUSH Q15M PRN; Protocol PRN Reason: per Hypoglycemia Standing Ord. Enoxaparin Sodium (Enoxaparin Sodium 40 Mg/0.4 Ml Syringe) 40 mg SUBCUT Q24H [facility] Last Admin: 03/07/23 20:00 Dose: 40 mg Furosemide (Furosemide 20 Mg Tablet) 20 mg PO DAILY [facility]; Protocol Last Admin: 03/07/23 10:00 Dose: 20 mg Furosemide (Furosemide 40 Mg Tablet) 40 mg PO DAILY [facility]; Protocol Last Admin: 03/07/23 10:00 Dose: 40 mg Glucose (Glucose Gel 15 Gm Gel..Gram.) 15 gm PO Q15M PRN; Protocol PRN Reason: per Hypoglycemia Standing Ord. Piperacillin Sod/Tazobactam (Sod 4.5 gm/ Sodium Chloride) 100 mls @ 200 mls/hr IV Q6H [facility] Last Infusion: 03/07/23 22:13 Dose: Infused Vancomycin HCl 1,000 mg/ (Sodium Chloride) 270 mls @ 270 mls/hr IV Q12H [facility] Last Infusion: 03/07/23 16:23 Dose: Infused Insulin Human Lispro (Insulin Lispro 100 Unit/Ml 3 Ml Vial) 0 unit SUBCUT QIDACHS [facility]; Protocol Last Admin: 03/07/23 21:36 Dose: 4 unit Lisinopril (Lisinopril 40 Mg Tablet) 40 mg PO DAILY [facility]; Protocol Last Admin: 03/07/23 10:00 Dose: 40 mg Melatonin (Melatonin 3 Mg Tablet) 6 mg PO BEDTIME PRN PRN Reason: Insomnia Last Admin: 03/07/23 23:39 Dose: 6 mg Morphine Sulfate (Morphine Sulfate 4 Mg/Ml Cartridge) 4 mg IVPUSH Q4H PRN; Protocol PRN Reason: Pain, Severe (Pain Scale 7-10) Last Admin: 03/07/23 16:21 Dose: 4 mg Multivitamins/Vitamin C (Multivitamin Tablet) 1 tab PO DAILY [facility] Last Admin: 03/07/23 10:00 Dose: 1 tab Omeprazole (Omeprazole 20 Mg Capsule.Dr) 20 mg PO DAILY [facility] Last Admin: 03/07/23 10:00 Dose: 20 mg Ondansetron HCl (Ondansetron Hcl 4 Mg/2 Ml Vial) 4 mg IVPUSH Q8H PRN PRN Reason: Nausea and Vomiting Last Admin: 03/07/23 18:39 Dose: 4 mg Pharmacy Consult (Consult Rx Vancomycin Dosing) 1 each MISCELLANE DAILY PRN PRN Reason: Consult order Sodium Chloride (0.9 % Sodium Chloride Flush 3 Ml Syringe) 3 ml IVFLUSH QSHIFT [facility] Last Admin: 03/07/23 16:22 Dose: 3 ml Tiotropium [place] (Tiotropium [place] 2.5 Mcg Inhaler) 2 puff INHALE RDAILY [facility] Last Admin: 03/07/23 08:00 Dose: 2 puff Home Medications Medication Instructions Recorded Confirmed Last Taken Type aspirin 81 mg tablet,delayed 81 mg PO DAILY 12/10/20 03/05/23 02/22/23 History release atorvastatin 80 mg tablet 80 mg PO BEDTIME 12/10/20 02/22/23 02/21/23 History insulin glargine 100 unit/mL (3 42 unit subcut BEDTIME 12/10/20 03/05/23 02/21/23 History mL) subcutaneous pen (Lantus Solostar U-100 Insulin) insulin lispro 100 unit/mL 10 unit subcut TIDAC 06/02/2203/05/23 02/22/23 History subcutaneous pen (Humalog KwikPen (U-100) Insulin) lisinopril 40 mg tablet 40 mg PO DAILY 03/23/22 03/05/23 02/22/23 History metformin 1,000 mg tablet 1,000 mg PO BIDWM 08/18/22 03/05/23 02/22/23 History ipratropium 20 mcg-albuterol 100 1 puff inhalation Q6H PRN 11/14/22 03/05/23 12/21/22 06:00 History mcg/actuation mist for inhalation Shortness Of Breath (Combivent Respimat) pantoprazole 20 mg tablet,delayed 20 mg PO DAILY 11/14/22 03/05/23 02/22/23 History release tiotropium bromide 2.5 2 puff inhalation DAILY 11/14/22 03/05/23 02/22/23 History mcg/actuation mist for inhalation (Spiriva Respimat) albuterol sulfate 2.5 mg/3 mL 2.5 mg inhalation Q4H PRN SOB 12/21/22 03/05/23 Unknown History (0.083 %) solution for nebulization furosemide 20 mg tablet 20 mg PO DAILY 12/21/22 03/05/23 02/22/23 History furosemide 40 mg tablet (Lasix) 40 mg PO DAILY 12/21/22 03/05/23 02/22/23 History multivitamin 1 tab PO DAILY 01/14/23 03/05/23 02/22/23 History peg [id number] 1 2 drp ophthalmic (eye) QID PRN Dry 01/14/23 03/05/23 Unknown History %-0.2 %-0.2 % eye drops Eye(S) (Artificial Tears ([id number])) Physical Exam Vital Signs: Vital Signs: Last Vital Signs Temp 97 F 03/07/23 23:59 Pulse 68 03/07/23 23:59 Resp 18 03/07/23 23:59 BP 121/60 03/07/23 23:59 Pulse Ox 99 03/07/23 23:59 O2 Del Method Room Air 03/07/23 23:59 BMI result Body Mass Index 30.3 Const: General: cooperative HEENT: Head: Yes normal to inspection Face and sinus: Yes normal facial exam Mouth: Normal oral and palatal mucosa present Teeth and gingiva: dentition normal Eyes: General: appearance normal, both eyes and all related structures Pupils: Equal, round and reactive pupils present Resp: Effort & Inspection: normal respiratory effort Cardio: Rate: regular rate Rhythm: regular rhythm GI: Palpation (GI): Soft to palpation and nontender : General: Yes no CVA tenderness Back/Spine/Pelvis: Back: no CVA tenderness Skin: General skin exam: no rashes or lesions noted Neuro: General: moves all extremities Cranial nerves: Yes Equal, round and reactive pupils present Extrem: Other: necrosis right stump area reported,wrapped now Psych: Appearance: grossly normal Results Labs 03/06/23 05:59 03/07/23 05:59 Labs: BMP 03/07/23 05:59 Creatinine 0.93 Microbiology Microbiology Results: Microbiology 03/05/23 19:10 Blood - Venous Blood Culture - Preliminary No growth after 48 hours. Assessment and Plan (1) Osteomyelitis: Status: Acute It appears to me from chart that patient had great adherence to six weeks IV Vancomycin and had Ceftriaxone as well. He is not candidate for wound vac due to infection. I am not sure if he is candidate for hyperbaric oxygen or any other modalities from [facility] but dont think would benefit from further mcc antibiotics as appears to be failing organism directed antibiotics (MRSA),serratia. Probable AKA per Dr Dia Time Spent With Patient Time: Total time managing care of this patient today ____ minutes.
[2023-03-08] MEDS: vancomycin HCL 1,000 MG in 0.9 % Sodium Chloride 250 ML 270 MG IV ×2 (01:51→13:38)
[2023-03-08] MEDS: 0.9 % Sodium Chloride Flush 3 ML SYRINGE IVFLUSH ×4 (01:53→20:04)
[2023-03-08] MEDS: Morphine Sulfate 4 MG/ML CARTRIDGE IVPUSH ×5 (02:41→21:08)
[2023-03-08] MEDS: Piperacillin Sodium/Tazobactam 4.5 GM in 0.9 % Sodium Chloride 100 ML IV ×4 (03:11→21:17)
[2023-03-08 06:42] LABS: Creatinine Clr Calc Pharmacy 71.3; Estimated Glomerular Filt Rate > 60
[2023-03-08 07:22] LABS: Glucose, Whole Blood 133 mg/dL (60-115)
[2023-03-08] MEDS: Furosemide 20 MG TABLET PO (08:51)
[2023-03-08] MEDS: Omeprazole 20 MG CAPSULE.DR PO (08:52)
[2023-03-08] MEDS: Aspirin Enteric Coated 81 MG TABLET.DR PO (08:52)
[2023-03-08] MEDS: carvediloL 25 MG TABLET PO ×2 (08:52→20:57)
[2023-03-08] MEDS: lisinopriL 40 MG TABLET PO (08:52)
[2023-03-08] MEDS: Furosemide 40 MG TABLET PO (08:52)
[2023-03-08] MEDS: Multivitamin TABLET 1 TAB PO (08:52)
[2023-03-08 11:40] LABS: Glucose, Whole Blood 235 mg/dL (60-115)
[2023-03-08 11:45] LABS: Vancomycin Random 16.1 mcg/mL (15-20)
--- NOTE | 2023-03-08 11:45 | HO.PM.IMPN ---
Subjective Subjective Date of Service: 03/08/23 Review of Systems follow-up right stump osteomyelitis Patient with complaints of pain to right stump area Physical Exam Vital Signs: Vital Signs: Last Vital Signs Temp 97.2 F 03/08/23 07:09 Pulse 68 03/08/23 08:07 Resp 19 03/08/23 08:51 BP 113/56 L 03/08/23 07:09 Pulse Ox 99 03/08/23 07:09 O2 Del Method Room Air 03/08/23 07:09 BMI result Body Mass Index 30.3 Appearing in no acute distress lung sounds are clear to auscultation heart regular rate rhythm, clear S1, S2 positive bowel sounds, abdomen is soft, nontender neuro patient is alert x3, no focal deficits Objective Data Active Medications Acetaminophen (Acetaminophen 325 Mg Tablet) 650 mg PO Q6H PRN PRN Reason: Pain, Mild (Pain Scale 1-3) Last Admin: 03/07/23 23:39 Dose: 650 mg Documented By: AMIE Albuterol Sulfate (Albuterol Sulfate (0.083%) 2.5 Mg/3 Ml Vial.Neb) 2.5 mg INHALE Q4H PRN PRN Reason: Shortness of Breath Albuterol/Ipratropium (Albuterol/Iprat 2.5/0.5mg 3 Ml Ampul.Neb) 3 ml INHALE Q6H PRN PRN Reason: Shortness Of Breath Artificial Tears (Artificial Tears 15 Ml Drops) 2 drop EYE-BOTH QID PRN PRN Reason: Dry Eye(S) Aspirin (Aspirin Enteric Coated 81 Mg Tablet.) 81 mg PO DAILY [facility] Last Admin: 03/08/23 08:52 Dose: 81 mg Documented By: MANUEL Carvedilol (Carvedilol 25 Mg Tablet) 25 mg PO BID [facility]; Protocol Last Admin: 03/08/23 08:52 Dose: 25 mg Documented By: CLAREEMA Dextrose (Dextrose 50 % 25 Gm/50 Ml Syringe) 25 gm IVPUSH Q15M PRN; Protocol PRN Reason: per Hypoglycemia Standing Ord. Enoxaparin Sodium (Enoxaparin Sodium 40 Mg/0.4 Ml Syringe) 40 mg SUBCUT Q24H [facility] Last Admin: 03/07/23 20:00 Dose: 40 mg Documented By: AMIE Furosemide (Furosemide 20 Mg Tablet) 20 mg PO DAILY [facility]; Protocol Last Admin: 03/08/23 08:51 Dose: 20 mg Documented By: COTEMA Furosemide (Furosemide 40 Mg Tablet) 40 mg PO DAILY [facility]; Protocol Last Admin: 03/08/23 08:52 Dose: 40 mg Documented By: MANUEL Glucose (Glucose Gel 15 Gm Gel..Gram.) 15 gm PO Q15M PRN; Protocol PRN Reason: per Hypoglycemia Standing Ord. Piperacillin Sod/Tazobactam (Sod 4.5 gm/ Sodium Chloride) 100 mls @ 200 mls/hr IV Q6H [facility] Last Infusion: 03/08/23 10:06 Dose: 0 mls/hr Documented By: COTEMA Vancomycin HCl 1,000 mg/ (Sodium Chloride) 270 mls @ 270 mls/hr IV Q12H [facility] Last Infusion: 03/08/23 02:59 Dose: 0 mls/hr Documented By: AMIE Insulin Human Lispro (Insulin Lispro 100 Unit/Ml 3 Ml Vial) 0 unit SUBCUT QIDACHS [facility]; Protocol Last Admin: 03/08/23 07:29 Dose: Not Given Documented By: MANUEL Non-Admin Reason: No Insulin Coverage Lisinopril (Lisinopril 40 Mg Tablet) 40 mg PO DAILY [facility]; Protocol Last Admin: 03/08/23 08:52 Dose: 40 mg Documented By: MANUEL Melatonin (Melatonin 3 Mg Tablet) 6 mg PO BEDTIME PRN PRN Reason: Insomnia Last Admin: 03/07/23 23:39 Dose: 6 mg Documented By: AMIE Morphine Sulfate (Morphine Sulfate 4 Mg/Ml Cartridge) 4 mg IVPUSH Q4H PRN; Protocol PRN Reason: Pain, Severe (Pain Scale 7-10) Last Admin: 03/08/23 08:51 Dose: 4 mg Documented By: MANUEL Multivitamins/Vitamin C (Multivitamin Tablet) 1 tab PO DAILY [facility] Last Admin: 03/08/23 08:52 Dose: 1 tab Documented By: MANUEL Omeprazole (Omeprazole 20 Mg Capsule.) 20 mg PO DAILY [facility] Last Admin: 03/08/23 08:52 Dose: 20 mg Documented By: CLAREEMA Ondansetron HCl (Ondansetron Hcl 4 Mg/2 Ml Vial) 4 mg IVPUSH Q8H PRN PRN Reason: Nausea and Vomiting Last Admin: 03/07/23 18:39 Dose: 4 mg Documented By: EMRCEDES Pharmacy Consult (Consult Rx Vancomycin Dosing) 1 each MISCELLANE DAILY PRN PRN Reason: Consult order Sodium Chloride (0.9 % Sodium Chloride Flush 3 Ml Syringe) 3 ml IVFLUSH QSHIFT [facility] Last Admin: 03/08/23 08:52 Dose: 3 ml Documented By: COTEMA Tiotropium [place] (Tiotropium [place] 2.5 Mcg Inhaler) 2 puff INHALE RDAILY [facility] Last Admin: 03/08/23 08:06 Dose: 2 puff Documented By: BLASCL Labs 03/06/23 05:59 03/08/23 05:21 Labs: Laboratory Results - last 24 hr 03/07/23 03/07/23 03/07/23 12:35 16:21 20:58 Estim Creat Clear Calc Estimated GFR POC Glucose 143 H 244 H Vancomycin Trough 13.0 03/08/23 03/08/23 03/08/23 05:21 07:11 11:23 Estim Creat Clear Calc 71.3 Estimated GFR > 60 POC Glucose 133 H 235 H Vancomycin Trough Microbiology Microbiology Results: Microbiology 03/05/23 19:10 Blood Culture - Preliminary Blood - Venous No growth after 48 hours. Assessment and Plan (1) Osteomyelitis: Status: Acute Plan 62-year-old male with a PMH significant for insulin-dependent diabetes type 2,?PAD, cardiomyopathy, HTN, CAD, BPH, HFrEF, BKA on 12/21/2022 who presents to the ED with?right stump pain since yesterday. Pt will be admitted to the hospital for treatment further evaluation of likely osteomyelitis of right stump. Osteomyelitis of right stump X-ray of right leg suggestive of early osteomyelitis, mildly elevated CRP of 0.78 and ESR of 37, mild leukocytosis of 11.5 Patient with multiple admissions since BKA on 12/21/2022 for nonhealing right stump wound, has had some compliance issues with using wound VAC continue vancomycin and Zosyn, started 03/05/2023 Analgesics for pain management Vascular surgery consult pending Infectious disease consult pending Follow cultures HFrEF Not in acute exacerbation Continue home furosemide Insulin-dependent diabetes type 2 Hold [address] on sliding scale insulin, Lantus Diabetic diet GERD PPI HTN Continue home meds CAD Aspirin, statin Full Code Attending: Dr. Royal DVT Prophylaxis: Lovenox OOB to wheelchair during the day continue hospitalization for treatment of?osteomyelitis of right stump with IV antibiotics in specialist consultation to vascular surgery and infectious disease. Time Spent With Patient Time: Total time managing care of this patient today ____ minutes. Quality Stroke Does the patient have a stroke diagnosis?: No VTE Prior VTE?: No VTE Risk Level:: Medical - moderate - high VTE Device Contraindication: Treatment Not Indicated VTE Drug Contraindication: N/A - Med Ordered
[2023-03-08] MEDS: Insulin Lispro 100 UNIT/ML 3 ML VIAL SUBCUT ×3 (11:53→20:57)
--- NOTE | 2023-03-08 13:20 | P.CONGS_ITS ---
History of Present Illness Consult details Consult date: 03/08/23 Reason for consult: wound care Narrative: Complex 62-year-old gentleman presents for follow-up regarding nonhealing right BKA stump. He had actually had the amputation previously and subsequently un derwent debridement and wound VAC placement. He was difficult to noncompliant. He actually self remove the wound VAC and would not keep that on. He was a challenge at rehab facility and was subsequently discharged from there. He now presents for follow-up regarding nonhealing stump. Review of Systems Review of Systems: Yes all other systems are reviewed and are negative Constitutional: Constitutional: Reports no additional constitutional complaints ENT: Reports Normal hearing present Cardiovascular: Cardiovascular: Denies chest pain, Denies chest pain at rest, Denies chest pain with activity and Denies pedal edema Respiratory: Respiratory: Denies cough Gastrointestinal: Gastrointestinal: Denies abdominal pain Musculoskeletal: Musculoskeletal: Denies abnormal gait, Denies muscle cramps and Denies radiating pain into limb Integumentary/Breasts: Skin/Breast: Denies skin ulcer and Denies wounds Neurologic: Reports Normal hearing present and Denies abnormal gait Psychiatric: Psychiatric: Reports no additional psychiatric complaints [facility] Past Medical History Medical History (Updated 03/08/23 @ 13:22 by Justin Dia MD) Abscess, perineum Asthma Below-knee amputation of right lower extremity BKA stump complication BPH (benign prostatic hyperplasia) CAD (coronary artery disease) Cardiomyopathy Cardiomyopathy Coronary artery disease Diabetes Essential hypertension High cholesterol History of peripheral vascular disease HTN (hypertension) Infection of amputation site of lower extremity PAD (peripheral artery disease) Type 2 diabetes mellitus with unspecified complications Family History Family History Father No problems noted. Mother Diabetes HTN (hypertension) Sister No problems noted. Sister Diabetes HTN (hypertension) Sister No problems noted. Family history: reviewed and not pertinent Surgical History Surgical History History of cardiac cath History of surgical removal of pilonidal cyst Hx of hand surgery Hx of hand surgery Hx of varicose vein stripping S/P angiogram of extremity Social History Social History Household Members: None Housing: Apartment Housing Other:: elderly housing Are you a primary animal care giver to a significant other at home: No Do you presently have visiting nurse or other home services: Yes Alcohol intake: former Patient Tobacco Use Status: Current everyday Tobacco user Tobacco use type: Cigarette Cigarette Packs Per Day: 0.5 Cigarettes Per Day: 10.0 Years Smoked: 15+/- Second Hand Smoke Exposure: No Advance Directives Date on File: 12/10/20 service: No Current occupational status: disabled Meds Allergies Allergy/AdvReac Type Severity Reaction Status Date / Time No Known Allergies Allergy Verified 02/22/23 14:54 Active Medications: Current Medications Acetaminophen (Acetaminophen 325 Mg Tablet) 650 mg PO Q6H PRN PRN Reason: Pain, Mild (Pain Scale 1-3) Last Admin: 03/07/23 23:39 Dose: 650 mg Albuterol Sulfate (Albuterol Sulfate (0.083%) 2.5 Mg/3 Ml Vial.Neb) 2.5 mg INHALE Q4H PRN PRN Reason: Shortness of Breath Albuterol/Ipratropium (Albuterol/Iprat 2.5/0.5mg 3 Ml Ampul.Neb) 3 ml INHALE Q6H PRN PRN Reason: Shortness Of Breath Artificial Tears (Artificial Tears 15 Ml Drops) 2 drop EYE-BOTH QID PRN PRN Reason: Dry Eye(S) Aspirin (Aspirin Enteric Coated 81 Mg Tablet.Dr) 81 mg PO DAILY [facility] Last Admin: 03/08/23 08:52 Dose: 81 mg Carvedilol (Carvedilol 25 Mg Tablet) 25 mg PO BID [facility]; Protocol Last Admin: 03/08/23 08:52 Dose: 25 mg Dextrose (Dextrose 50 % 25 Gm/50 Ml Syringe) 25 gm IVPUSH Q15M PRN; Protocol PRN Reason: per Hypoglycemia Standing Ord. Enoxaparin Sodium (Enoxaparin Sodium 40 Mg/0.4 Ml Syringe) 40 mg SUBCUT Q24H [facility] Last Admin: 03/07/23 20:00 Dose: 40 mg Furosemide (Furosemide 20 Mg Tablet) 20 mg PO DAILY [facility]; Protocol Last Admin: 03/08/23 08:51 Dose: 20 mg Furosemide (Furosemide 40 Mg Tablet) 40 mg PO DAILY [facility]; Protocol Last Admin: 03/08/23 08:52 Dose: 40 mg Glucose (Glucose Gel 15 Gm Gel..Gram.) 15 gm PO Q15M PRN; Protocol PRN Reason: per Hypoglycemia Standing Ord. Piperacillin Sod/Tazobactam (Sod 4.5 gm/ Sodium Chloride) 100 mls @ 200 mls/hr IV Q6H [facility] Last Infusion: 03/08/23 10:06 Dose: Infused Vancomycin HCl 1,000 mg/ (Sodium Chloride) 270 mls @ 270 mls/hr IV Q12H [facility] Last Infusion: 03/08/23 02:59 Dose: Infused Insulin Human Lispro (Insulin Lispro 100 Unit/Ml 3 Ml Vial) 0 unit SUBCUT Q IDACHS [facility]; Protocol Last Admin: 03/08/23 11:53 Dose: 4 unit Lisinopril (Lisinopril 40 Mg Tablet) 40 mg PO DAILY [facility]; Protocol Last Admin: 03/08/23 08:52 Dose: 40 mg Melatonin (Melatonin 3 Mg Tablet) 6 mg PO BEDTIME PRN PRN Reason: Insomnia Last Admin: 03/07/23 23:39 Dose: 6 mg Morphine Sulfate (Morphine Sulfate 4 Mg/Ml Cartridge) 4 mg IVPUSH Q4H PRN; Protocol PRN Reason: Pain, Severe (Pain Scale 7-10) Last Admin: 03/08/23 08:51 Dose: 4 mg Multivitamins/Vitamin C (Multivitamin Tablet) 1 tab PO DAILY [facility] Last Admin: 03/08/23 08:52 Dose: 1 tab Omeprazole (Omeprazole 20 Mg Capsule.Dr) 20 mg PO DAILY [facility] Last Admin: 03/08/23 08:52 Dose: 20 mg Ondansetron HCl (Ondansetron Hcl 4 Mg/2 Ml Vial) 4 mg IVPUSH Q8H PRN PRN Reason: Nausea and Vomiting Last Admin: 03/07/23 18:39 Dose: 4 mg Pharmacy Consult (Consult Rx Vancomycin Dosing) 1 each MISCELLANE DAILY PRN PRN Reason: Consult order Sodium Chloride (0.9 % Sodium Chloride Flush 3 Ml Syringe) 3 ml IVFLUSH QSHIFT [facility] Last Admin: 03/08/23 08:52 Dose: 3 ml Tiotropium [place] (Tiotropium [place] 2.5 Mcg Inhaler) 2 puff INHALE RDAILY [facility] Last Admin: 03/08/23 08:06 Dose: 2 puff Home Medications Medication Instructions Recorded Confirmed Last Taken Type aspirin 81 mg tablet,delayed 81 mg PO DAILY 12/10/20 03/05/23 02/22/23 History release atorvastatin 80 mg tablet 80 mg PO BEDTIME 12/10/20 02/22/23 02/21/23 History insulin glargine 100 unit/mL (3 42 unit subcut BEDTIME 12/10/20 03/05/23 02/21/23 History mL) subcutaneous pen (Lantus Solostar U-100 Insulin) insulin lispro 100 unit/mL 10 unit subcut TIDAC 12/10/20 03/05/23 02/22/23 History subcutaneous pen (Humalog KwikPen (U-100) Insulin) lisinopril 40 mg tablet 40 mg PO DAILY 03/23/22 03/05/23 02/22/23 History metformin 1,000 mg tablet 1,000 mg PO BIDWM 08/18/22 03/05/23 02/22/23 History ipratropium 20 mcg-albuterol 100 1 puff inhalation Q6H PRN 11/14/22 03/05/23 12/21/22 06:00 History mcg/actuation mist for inhalation Shortness Of Breath (Combivent Respimat) pantoprazole 20 mg tablet,delayed 20 mg PO DAILY 11/14/22 03/05/23 02/22/23 History release tiotropium bromide 2.5 2 puff inhalation DAILY 11/14/22 03/05/23 02/22/23 History mcg/actuation mist for inhalation (Spiriva Respimat) albuterol sulfate 2.5 mg/3 mL 2.5 mg inhalation Q4H PRN SOB 12/21/22 03/05/23 Unknown History (0.083 %) solution for nebulization furosemide 20 mg tablet 20 mg PO DAILY 12/21/22 03/05/23 02/22/23 History furosemide 40 mg tablet (Lasix) 40 mg PO DAILY 12/21/22 03/05/23 02/22/23 History multivitamin 1 tab PO DAILY 01/14/23 03/05/23 02/22/23 History peg [id number] 1 2 drp ophthalmic (eye) QID PRN Dry 01/14/23 03/05/23 Unknown History %-0.2 %-0.2 % eye drops Eye(S) (Artificial Tears ([id number])) Physical Exam Vital Signs: Vital Signs: Last Vital Signs Temp 97.2 F 03/08/23 07:09 Pulse 68 03/08/23 08:07 Resp 19 03/08/23 08:51 BP 113/56 L 03/08/23 07:09 Pulse Ox 99 03/08/23 07:09 O2 Del Method Room Air 03/08/23 07:09 BMI result Body Mass Index 30.3 Const: General: cooperative, healthy appearing and comfortable Orientation/consciousness: oriented to person, oriented to place and oriented to time HEENT: Head: Yes normal to inspection Neck: Neck: Yes normal visual inspection Carotids: no bruits Chest: Chest palpation & inspection: normal inspection of the chest Resp: Effort & Inspection: normal respiratory effort and able to speak in complete sentences Auscultation: clear to auscultation bilaterally, no crackles, no rales, no rhonchi and no wheezes Cardio: Rate: regular rate Rhythm: regular rhythm Heart sounds: S1 normal heart sound present and S2 normal heart sound present Bruits: no carotid bruits Peripheral pulses: Peripheral pulses 2+ throughout GI: Inspection: Yes normal to inspection Skin: Other: Right BKA stump open poor granulation bed. Overall measurement is 11 x 5 x 0.5 cm. No change since his previous visit with me. Wounds: no wounds Hair: normal Neuro: General: oriented to person, oriented to place and oriented to time Cranial nerves: Yes CN's II-XII intact bilaterally and Yes Normal hearing present Cognition (Neuro): normal cognition Motor exam (neuro): 5/5 motor strength present throughout Extrem: Other: venous exam: No significant superficial varicosities or spider telangiectasias, minimal edema General: No clubbing, No cyanosis and No edema Psych: Appearance: grossly normal Mental Status: mental status grossly normal Speech and movement: Normal speech and movement present Results Labs 03/06/23 05:59 03/08/23 05:21 Labs: Abnormal lab results 03/07/23 03/07/23 03/08/23 Range/Units 16:21 20:58 07:11 POC Glucose 143 H 244 H 133 H (60-115) mg/dL 03/08/23 Range/Units 11:23 POC Glucose 235 H (60-115) mg/dL BMP 03/08/23 05:21 Creatinine 1.07 All other labs normal. Assessment and Plan (1) BKA stump complication: Status: Acute Plan In short patient has a nonhealing right BKA stump. Due to his noncompliance and lack of healing would require an above knee amputation. This was discussed in detail with the patient and patient flat out refused. He would like to have a trial of antibiotics. I did explain that he has had an extensive attempted conservative measures and I do not expect this to heal. Will give antibiotics a few more days and will Willis approach the subject with him. Once again my official recommendation is an above knee amputation for this patient. Unfortunately his lack of compliance complicates issues. We will continue to of follow this patient with you. Thank you for allowing us to assist in his care. Time Spent With Patient Time: Total time managing care of this patient today ____ minutes. Procedures Date of Service Date of Service: 03/08/23
[2023-03-08 16:04] LABS: Glucose, Whole Blood 153 mg/dL (60-115)
[2023-03-08] MEDS: Enoxaparin Sodium 40 MG/0.4 ML SYRINGE SUBCUT (20:03)
[2023-03-08 20:39] LABS: Glucose, Whole Blood 209 mg/dL (60-115)
[2023-03-09] MEDS: vancomycin HCL 1,000 MG in 0.9 % Sodium Chloride 250 ML 270 MG IV (00:23)
[2023-03-09] MEDS: Morphine Sulfate 4 MG/ML CARTRIDGE IVPUSH ×2 (01:35→05:25)
[2023-03-09] MEDS: Piperacillin Sodium/Tazobactam 4.5 GM in 0.9 % Sodium Chloride 100 ML IV (03:29)
[2023-03-09 04:00] VITALS: BP 108/62; PULSE 73; RESP 16; TEMP 36; O2SAT 98
[2023-03-09 06:11] LABS: Creatinine Clr Calc Pharmacy 77.8; Estimated Glomerular Filt Rate > 60
[2023-03-09 07:19] VITALS: BP 114/60; PULSE 74; RESP 16; TEMP 36.3; O2SAT 99
[2023-03-09 07:47] LABS: Glucose, Whole Blood 158 mg/dL (60-115)
[2023-03-09] MEDS: Multivitamin TABLET 1 TAB PO (08:14)
[2023-03-09] MEDS: Aspirin Enteric Coated 81 MG TABLET.DR PO (08:14)
[2023-03-09] MEDS: lisinopriL 40 MG TABLET PO (08:14)
[2023-03-09] MEDS: carvediloL 25 MG TABLET PO (08:14)
[2023-03-09] MEDS: Furosemide 40 MG TABLET PO (08:14)
[2023-03-09] MEDS: Insulin Lispro 100 UNIT/ML 3 ML VIAL SUBCUT ×2 (08:14→11:26)
[2023-03-09] MEDS: Omeprazole 20 MG CAPSULE.DR PO (08:14)
[2023-03-09] MEDS: Furosemide 20 MG TABLET PO (08:14)
[2023-03-09] MEDS: 0.9 % Sodium Chloride Flush 3 ML SYRINGE IVFLUSH (08:15)
[2023-03-09 08:28] VITALS: PULSE 82; RESP 16; O2SAT 98
--- NOTE | 2023-03-09 09:08 | MHC.CM.PN ---
PER HOSPITALIST PT REFUSING AKA, ANTIC PT WILL BE MEDICALLY CLEARED FOR D/C HOME W/RESUMP OF SCHULER VNA AND ORAL ABX, CM WILL CHECK IN W/PT FOR TRANSPORT
--- NOTE | 2023-03-09 09:26 | PM.DS ---
DS: Providers Provider Date of Service: 03/09/23 Date of admission: 03/05/23 20:28 Primary care physician: Loli Augustin MD Consults: 03/05/23 20:28 Consult to Infectious Diseases Routine Consulting Provider: [facility] [place] Infectious Disease Reason for consultation: osteomyelitis Consult to Vascular Surgery Routine Consulting Provider: [facility] [place] Vascular Services Reason for consultation: osteomyelitis DS: Diagnosis Discharge Diagnosis (1) BKA stump complication: Status: Acute DS: Summary Hospital Course Hospital Course: History and physical as per admitting provider. Pt is a 62-year-old male with a PMH significant for insulin-dependent diabetes type 2,?PAD, cardiomyopathy, HTN, CAD, BPH, HFrEF, BKA on 12/21/2022 who presents to the ED with?right stump pain since yesterday. Patient underwent a BKA on 12/21/2022 after having significant arterial disease with nonhealing ulcers. He was then readmitted to the hospital on 01/14/2023-01/22/2023 for infection at BKA amputation site.? Blood cultures grew MRSA and patient underwent excisional debridement of right BKA stump +wound VAC placement on 01/19/2023.? Was discharged with PICC line on 4 weeks of IV vancomycin with end date of February 15.? Patient re-presented to ED on 02/22/2023 for excoriation and cellulitis of buttocks due to prolonged periods of immobility.? Patient is supposed to be using wound VAC at home, though, according to vascular surgery, has questionable compliance with the machine.? Patient states he has regularly used it up until yesterday when his stump was too painful for the wound VAC. wound has also been draining a yellowish, non malodorous discharge.? Patient denies fever, chills, nausea, vomiting.? No chest pain/pressure, palpitations.? Denies buttock pain. In the ED labs were significant for leukocytosis of 11.5, H&H stable at 11 0.4/35.1, ESR 37, C reactive protein 0.78. Electrolytes WNL.? Renal function WNL.? Lactic acid WNL at 2.0.? Hepatic function WNL.? X-ray of right tibia and fibula found increasing lucencies in the distal remaining tibia questionable for early osteomyelitis. Pt was treated with morphine, vanco, Zosyn, and IVF. Pt will be admitted to the hospital for treatment further evaluation of likely osteomyelitis of right stump. 62-year-old man treated for right stump infection and osteomyelitis. He had below the knee amputation in December 04 to nonhealing wound. He had a wound VAC placed and was discharged to short-term rehab on 01/22/2023 and discharged home. He was positive for MRSA bacteremia and was treated with 4 weeks of IV vancomycin. It was recommended to him by the vascular surgeon that he would need an above the knee amputation at this point but patient has declined this and would like to continue with antibiotics. Discussed with Infectious Disease provider who recommended 2 weeks of doxycycline and Augmentin as patient had already recently completed IV antibiotics. Ultimately the recommendation is for patient to have an above the knee amputation. Heart failure with reduced ejection fraction. No exacerbation during admission. Continue Lasix Diabetes mellitus type 2 continue home medications GERD. Ppi Hypertension. Continue home medications Coronary artery disease. Aspirin and statin Time Spent with Patient Time attestation: Total time managing care of this patient today ____ minutes. Discharge coordination time: Greater than 30 minutes Quality: Safe Use of Opioids Does Pt have an Active Cancer Diagnosis on the Problem List?: No Quality: Stroke Does the patient have a stroke diagnosis?: No Physical Exam Vital Signs: Vital Signs: Last Vital Signs Temp 97.4 F 03/09/23 07:19 Pulse 82 03/09/23 08:28 Resp 16 03/09/23 08:28 BP 114/60 03/09/23 07:19 Pulse Ox 99 03/09/23 07:19 O2 Del Method Room Air 03/09/23 07:19 BMI result Body Mass Index 30.3 Appearing in no acute distress head is normocephalic atraumatic eyes pupils are PERRLA sclera is anicteric mouth throat mucous membranes are intact and moist neck is supple no lymphadenopathy, no JVD noted lung sounds are clear to auscultation heart regular rate rhythm, clear S1, S2 positive bowel sounds, abdomen is soft, nontender neuro patient is alert x3, no focal deficits DS: Data Data Completed and Pending Completed studies during hospitalization [Text1]: Procedures Detachment at Right Lower Leg, Mid, Open Approach (12/21/22) Drainage of Perineum Skin, External Approach (12/10/20) Excision of Right Upper Leg Muscle, Open Approach (01/14/23) Insertion of Infusion Device into Superior Vena Cava, Percutaneous Approach (01/14/23) Introduction of Anesthetic Agent into Peripheral Nerves and Plexi, Percutaneous Approach (01/14/23) Ultrasonography of Superior Vena Cava, Guidance (01/14/23) Labs on day of discharge: Laboratory Results - last 24 hr 03/08/23 03/08/23 03/08/23 10:44 11:23 15:46 Creatinine Estim Creat Clear Calc Estimated GFR POC Glucose 235 H 153 H Random Vancomycin 16.1 03/08/23 03/09/23 03/09/23 20:26 05:23 07:43 Creatinine 0.98 Estim Creat Clear Calc 77.8 Estimated GFR > 60 POC Glucose 209 H 158 H Random Vancomycin Preliminary micro results at discharge 03/05/23 19:10 Blood Culture - Preliminary Blood - Venous No growth after 48 hours. Discharge Plan Discharge Anticipated Discharge Date/Time: 03/09/23 09:23 Patient Disposition: Home Health Service Discharge Diagnosis: Osteomyelitis Right stump infection Referrals: Loli Augustin MD [Primary Care Provider] - 1 Week Discharge Medications: New amoxicillin-pot clavulanate 875-125 mg tablet 1 tab PO BID Qty: 28 0RF doxycycline hyclate 100 mg tablet 100 mg PO BID Qty: 28 0RF Continued lisinopril 40 mg tablet 40 mg PO DAILY carvedilol 25 mg tablet 25 mg PO BID Qty: 180 1RF Rx Instructions: must administer with a meal/food atorvastatin 80 mg tablet 80 mg PO BEDTIME aspirin 81 mg tablet,delayed release (DR/EC) 81 mg PO DAILY insulin lispro [Humalog KwikPen Insulin] 100 unit/mL insulin pen 10 unit subcut TIDAC insulin glargine [Lantus Solostar U-100 Insulin] 100 unit/mL (3 mL) insulin pen 42 unit subcut BEDTIME pantoprazole 20 mg tablet,delayed release (DR/EC) 20 mg PO DAILY Spiriva Respimat 2.5 mcg/actuation mist 2 puff INHALATION DAILY Combivent Respimat 20-100 mcg/actuation mist 1 puff INHALATION Q6H PRN (Reason: Shortness Of Breath) multivitamin Tablet 1 tab PO DAILY Artificial Tears(bf-ixze-hsau) 1-0.2-0.2 % Drops 2 drp OPHTHALMIC (EYE) QID PRN (Reason: Dry Eye(S)) albuterol sulfate 2.5 mg /3 mL (0.083 %) solution for nebulization 2.5 mg inhalation Q4H PRN (Reason: SOB) furosemide 20 mg tablet 20 mg PO DAILY furosemide [Lasix] 40 mg tablet 40 mg PO DAILY metformin 1,000 mg tablet 1,000 mg PO BIDWM Discharge Orders: Discharge Order (Routine); Ordered 03/09/23 Ordered By: Sylvia Smith Diet: Advance to usual diet Activity on Discharge: As tolerated Stand Alone Forms: Patient Portal Discharge page Care Plan Goals: Resolution of infection Health Concerns: Osteomyelitis Right stump infection Plan of Treatment: Follow-up with vascular surgeon as needed Take all medications as prescribed Assessment: See discharge summary
[2023-03-09 11:10] LABS: Glucose, Whole Blood 178 mg/dL (60-115)
[2023-03-09 11:53] LABS: Vancomycin Trough 16.6 mcg/mL (10.0-20.0)
--- NOTE | 2023-03-09 16:24 | W.MHC.F2F ---
Service Date Service Date: 03/09/23 Encounter Date of encounter: 03/09/23 Reasons for Services Signs and symptoms assessed: Right BKA wound Osteomyelitis Reason for detention: wound care (Cleanse with NS and cover with dry dressing daily ) Homebound: Leaving the home is medically contraindicated at this time without the asist of a device and/or another person due th the listed conditions above and below. Reason homebound: unsteady gait / fall risk and bedbound/chairbound (wheelchair bound ) Certification: Based on the above findings, I certify that this patient is confined to the home and needs intermittent detention care, physical therapy and/or speech therapy, or continues to need occupational therapy. The patient is under my care, and I have initiated the establishment of the plan of care. The patient will be followed by a physician who will periodically review the plan of care. Time Spent With Patient Time: Total time managing care of this patient today ____ minutes.
--- NOTE | 2023-03-10 16:17 | P.CDIM_ITS ---
PROVIDER RESPONSE TEXT: To clarify, the appropriate diagnosis supported by the clinical indicators: Subacute osteomyelitis QUERY TEXT: PHYSICIAN'S DOCUMENTATION REQUEST Date of Query: 03/09/2023 11:35 AM EDT Patient Name: Reji Trejo Admit Date: 03/06/2023 Dear Sylvia Smith, RETROSPECTIVE QUERY A review of the medical record indicates additional documentation may be needed. Please review below and update the documentation accordingly. Clinical Indicators: Progress notes: Osteomyelitis of right stump Xray of right leg suggestive of early osteomyelitis Multiple admissions since BKA for nonhealing right stump wound. Noncompliance issues. Vancomycin and Zosyn Based on the above, please clarify in the Progress Notes further specificity regarding the acuity of the Osteomyelitis. Acute osteomyelitis right stump Subacute osteomyelitis Chronic osteomyelitis Other please specify Other (explain)Clinically unable to determine (explain)Thank you, Anika Zheng, CCS, CDIS Use of terms such as suspected, likely, concern for, or probable (associated with a specific diagnosi s that is being evaluated, monitored, or treated as if it exists) are acceptable and can be coded in the inpatient se tting, when documented at the time of discharge. Please use your independent medical judgment in providing your response. THIS QUERY IS PART OF THE PERMANENT MEDICAL RECORD
== END 2023-03-09 15:33 | disposition home health service (06) | DRG 349 ==
LOC: HO.ED 20:22 → HO.EDOVER 20:39 → HO.S3 21:01
PROVIDERS: Physician Assistant; Admitting Provider Student in an Organized Health Care Education/Training Program; Emergency Provider Emergency Medicine; PCP Family Medicine; Visit Provider Nurse Practitioner Acute Care
DX: T87.43 Infection of amputation stump, right lower extremity (principal); M86.261 Subacute osteomyelitis, right tibia and fibula; E11.51 Type 2 diabetes mellitus with diabetic peripheral angiopathy without gangrene; I50.22 Chronic systolic (congestive) heart failure; I11.0 Hypertensive heart disease with heart failure; K21.9 Gastro-esophageal reflux disease without esophagitis; I25.10 Atherosclerotic heart disease of native coronary artery without angina pectoris; Z91.199 Patient's noncompliance with other medical treatment and regimen due to unspecified reason; N40.0 Benign prostatic hyperplasia without lower urinary tract symptoms; E78.00 Pure hypercholesterolemia, unspecified; Z79.4 Long term (current) use of insulin; Z79.82 Long term (current) use of aspirin; Z79.84 Long term (current) use of oral hypoglycemic drugs; Z79.899 Other long term (current) drug therapy
CPT/HCPCS: 36415; 73590; 80048; 80053; 80202; 82565; 82947; 83605; 83690; 85025; 85652; 86140; 87040; 94640; 99285; J1650; J2270; J2405; J2543; J3370; J3371

== ENCOUNTER → 2023-03-05 20:28 | Outpatient (BNV) | payer MEDICAID, SELFPAY | PROVIDERS: Admitting Provider Student in an Organized Health Care Education/Training Program; Emergency Provider Emergency Medicine; PCP Family Medicine; Visit Provider Internal Medicine | DX: M86.9 Osteomyelitis, unspecified (principal) | CPT/HCPCS: 99222 ==

== ENCOUNTER → 2023-03-05 20:28 | Outpatient (BNV) | payer MEDICAID, SELFPAY | PROVIDERS: Admitting Provider Student in an Organized Health Care Education/Training Program; Emergency Provider Emergency Medicine; PCP Family Medicine; Visit Provider Student in an Organized Health Care Education/Training Program | DX: T87.9 Unspecified complications of amputation stump (principal) | CPT/HCPCS: 99223; 99232; 99239 ==

== ENCOUNTER → 2023-03-05 20:28 | Outpatient (BNV) | payer MEDICAID, SELFPAY | PROVIDERS: Admitting Provider Student in an Organized Health Care Education/Training Program; Emergency Provider Emergency Medicine; PCP Family Medicine; Visit Provider Surgery Vascular Surgery | DX: T87.43 Infection of amputation stump, right lower extremity (principal); Z89.511 Acquired absence of right leg below knee; Z91.148 Patient's other noncompliance with medication regimen for other reason | CPT/HCPCS: 99024 ==

== ENCOUNTER 2023-03-16 11:48 | Inpatient (IN) | payer MEDICAID, SELFPAY ==
--- NOTE | ~2023-03-16 | XR_ITS ---
EXAMINATION: 03/05/2023 XR KNEE, RIGHT CLINICAL INFORMATION: Below-knee amputation. Infection? COMPARISON: None available. TECHNIQUE: AP and lateral of the right knee. FINDINGS: There is a femoral vascular stent in the lower thigh. Soft tissues are swollen throughout the visualized extremity. No evidence of an abnormal collection of gas in the soft tissues. Status post below-knee amputation with normal smooth contour at distal edges of the tibia and fibula. No erosion or periostitis. The joint spaces of the knee are maintained. There appears to be a trace amount of fluid in the suprapatellar compartment of the joint. XR/XR knee RT 2V IMPRESSION: * Status post below-knee amputation. * No radiographic evidence of osteomyelitis. * Soft tissues are diffusely swollen in the visualized thigh and proximal leg.
[2023-03-16 11:53] VITALS: BP 144/86; PULSE 82; O2SAT 97
[2023-03-16 11:57] VITALS: BP 117/55; PULSE 75; RESP 16; TEMP 36.9; O2SAT 98; BMI 34.9
[2023-03-16 12:29] LABS: MANUAL DIFF FLAG NO
[2023-03-16 12:40] LABS: Basophils Absolute Auto 0.1 X10*3/uL (0.0-0.2); Basophils Percent Auto 0.7 % (0-2); Eosinophils Absolute Auto 0.4 X10*3/uL (0.0-0.4); Eosinophils Percent Auto 2.8 % (0-4); Hematocrit 37.2 % (42.0-52.0); Hemoglobin 11.7 g/dl (14.0-18.0); Imm Gran Abs Auto 0.05 X10*3/uL (0.00-0.03); Imm Gran Pct Auto 0.4 % (0.0-0.4); Lymphocytes Absolute Auto 1.9 X10*3/uL (1.2-4.9); Lymphocytes Percent Auto 14.5 % (20-40); Mean Corpuscular HGB Conc 31.5 g/dl (31.0-36.0); Mean Corpuscular Hemoglobin 29.7 pg (27.0-33.0); Mean Corpuscular Volume 94.4 fL (80.0-98.0); Mean Platelet Volume 10.6 fL (9.4-12.4); Monocytes Absolute Auto 0.8 X10*3/uL (0.1-1.2); Monocytes Percent Auto 6.4 % (2-11); Neutrophils Absolute Auto 9.9 x10*3/uL (2.0-8.3); Neutrophils Percent Auto 75.2 % (45-73); Platelet Count 258 X10*3/uL (160-400); Red Blood Count 3.94 X10*6/uL (4.60-5.80); White Blood Count 13.1 X10*3/uL (4.8-10.8)
[2023-03-16 12:44] LABS: Lactic Acid 1.5 mmol/L (0.5-2.0)
--- NOTE | 2023-03-16 12:57 | ED.GENADULT ---
HPI - General Adult General Chief complaint: Extremity Injury, Lower Stated complaint: RBKA W/SEVERE INF PER EMS Time Seen by Provider: 03/16/23 11:53 Source: patient and EMS Mode of arrival: EMS Limitations: no limitations History of Present Illness HPI narrative: 62-year-old male history of right-sided BKA, current daily smoker, urinary retention, osteomyelitis presenting to the emergency department for evaluation of right lower extremity pain, patient reports his BKA amputation site is hurting, patient is supposed to use a wound VAC however does not use it. He states he takes it off because it hurts. He was told to come in by his visiting nurse because they were concerned about necrotic tissue and purulent discharge home right BKA site. Denies fevers, chills, chest pain, shortness of breath, nausea, vomiting abdominal pain, headache, vision changes, dizziness and weakness. Related Data Home Medications Medication Instructions Recorded Confirmed aspirin 81 mg tablet,delayed 81 mg PO DAILY 12/10/20 03/05/23 release atorvastatin 80 mg tablet 80 mg PO BEDTIME 12/10/20 02/22/23 insulin glargine 100 unit/mL (3 42 unit subcut BEDTIME 12/10/20 03/05/23 mL) subcutaneous pen (Lantus Solostar U-100 Insulin) insulin lispro 100 unit/mL 10 unit subcut TIDAC 12/10/20 03/05/23 subcutaneous pen (Humalog KwikPen (U-100) Insulin) lisinopril 40 mg tablet 40 mg PO DAILY 03/23/22 03/05/23 metformin 1,000 mg tablet 1,000 mg PO BIDWM 08/18/22 03/05/23 ipratropium 20 mcg-albuterol 100 1 puff inhalation Q6H PRN 11/14/22 03/05/23 mcg/actuation mist for inhalation Shortness Of Breath (Combivent Respimat) pantoprazole 20 mg tablet,delayed 20 mg PO DAILY 11/14/22 03/05/23 release tiotropium bromide 2.5 2 puff inhalation DAILY 11/14/22 03/05/23 mcg/actuation mist for inhalation (Spiriva Respimat) albuterol sulfate 2.5 mg/3 mL 2.5 mg inhalation Q4H PRN SOB 12/21/22 03/05/23 (0.083 %) solution for nebulization furosemide 20 mg tablet 20 mg PO DAILY 12/21/22 03/05/23 furosemide 40 mg tablet (Lasix) 40 mg PO DAILY 12/21/22 03/05/23 multivitamin 1 tab PO DAILY 01/14/23 03/05/23 peg [id number] 1 2 drp ophthalmic (eye) QID PRN Dry 01/14/23 03/05/23 %-0.2 %-0.2 % eye drops Eye(S) (Artificial Tears ([id number])) Previous Rx's Medication Instructions Recorded carvedilol 25 mg tablet 25 mg PO BID #180 tabs 07/10/22 amoxicillin 875 mg-potassium 1 tab PO BID #28 tabs 03/09/23 clavulanate 125 mg tablet doxycycline hyclate 100 mg tablet 100 mg PO BID #28 tabs 03/09/23 Allergies Allergy/AdvReac Type Severity Reaction Status Date / Time No Known Allergies Allergy Verified 02/22/23 14:54 Review of Systems Review of Systems: Constitutional : No Weight loss, No Fever, No Chills, No Fatigue, No Malaise ENT/Mouth : No sore throat, No Rhinorrhea Eyes: No Eye Pain, No Swelling, No Redness Cardiovascular : No Chest Pain, No SOB, No Dyspnea on Exertion, No Orthopnea, No Edema, No Palpitations Respiratory : No Cough, No Sputum, No Wheezing Gastrointestinal : No Nausea, No Vomiting, No Diarrhea, No Constipation, No abdominal Pain, No Hematochezia, No Melena Genitourinary : No Dysuria, No Urinary Frequency, No Hematuria, Musculoskeletal : No joint pain, No Myalgias, No Joint Swelling Skin : No Skin Lesions, No rash, + wound Neuro : No Weakness, No Numbness, No Dizziness, No Headache Psych : No Anxiety/Panic, No Depression All other systems reviewed and are negative Yes all other systems are reviewed and are negative [facility] Past Medical History Medical History (Updated 03/16/23 @ 15:00 by NIEVES Araujo) Infection of amputation site of lower extremity BKA stump complication Below-knee amputation of right lower extremity BPH (benign prostatic hyperplasia) Cardiomyopathy CAD (coronary artery disease) History of peripheral vascular disease Coronary artery disease Cardiomyopathy Essential hypertension Type 2 diabetes mellitus with unspecified complications Abscess, perineum PAD (peripheral artery disease) Asthma High cholesterol HTN (hypertension) Diabetes Surgical History History of surgical removal of pilonidal cyst Hx of hand surgery Hx of hand surgery History of cardiac cath S/P angiogram of extremity Hx of varicose vein stripping Family History Family History Father No problems noted. Mother Diabetes HTN (hypertension) Sister No problems noted. Sister Diabetes HTN (hypertension) Sister No problems noted. Social History Social History Household Members: None Housing: Apartment Housing Other:: elderly housing Are you a primary foster care social worker to a significant other at home: No Do you presently have visiting nurse or other home services: Yes Alcohol intake: former Patient Tobacco Use Status: Current everyday Tobacco user Tobacco use type: Cigarette Cigarette Packs Per Day: 0.5 Cigarettes Per Day: 10.0 Years Smoked: 15+/- Second Hand Smoke Exposure: No Advance Directives: Yes Advance Directives on File: Yes Advance Directives Date on File: 12/10/20 service: No Current occupational status: disabled Physical Exam ED Vital Signs: Vital Signs - 24 hr 03/16/23 11:57 03/16/23 14:40 Temperature 98.5 F 97.7 F Pulse Rate 75 78 Respiratory Rate 16 16 Blood Pressure 117/55 L 132/66 Pulse Oximetry 98 99 Oxygen Delivery Method Room Air Room Air BMI result Body Mass Index 34.9 Course Reevaluation(s) Reevaluation #1: CBC with leukocytosis 13.1, no left shift. Chemistry with no acute findings requiring intervention. Patient's BUN slightly elevated however I suspect this is secondary to poor p.o. intake/ dehydration encourage hydration with p.o. fluids. Lactic acid negative. CRP markedly elevated at 2.49, ESR also elevated at 21. X-ray not showing any acute findings to suggest acute osteomyelitis. I am reaching out to vascular Dr. Dia for input Time: 15:20 Reevaluation #2: Dr. Dia states patient will likely need above knee amputation recommends hospital admission. Patient agreeable to this. Will keep him NPO. Spoke to hospitalist who agree patient will be admitted. Time: 15:25 Medications Administered Discontinued Medications Generic Name Dose Route Start Last Admin Trade Name Javierq PRN Reason Stop Dose Admin Piperacillin Sod/Tazobactam 50 mls @ 100 mls/hr 03/16/23 12:59 03/16/23 14:36 Sod 3.375 gm/ Sodium Chloride IV 03/16/23 13:28 Infused ONCE ONE Infusion Morphine Sulfate 4 mg 03/16/23 12:56 03/16/23 13:35 Morphine Sulfate 4 Mg/Ml Cartridge IVPUSH 03/16/23 12:57 4 mg ONCE ONE Administration Protocol Medical Decision Making Medical Decision Making [facility] Narrative: 1259 62 year old male presents w/ pain to pain to amputation site of RBKA X 3 days PE w/ necrotic tissue and purulence from site of RBKA. ( images in chart) Concerns for necrosis / gangrene to right BKA amputation site with overlying cellulitis. Also some suspicion for osteomyelitis. Will rule out electrolyte abnormalities. According to chart review. The patient was seen by infectious disease, Dr. Meng on 01/19/2023 and it was recommended the patient get at least 4 weeks of IV vancomycin followed by 2-3 months of doxycycline. Plan labs, imaging, blood cultures, lactic acid. Will give morphine for pain and Zosyn for antibiotic coverage Differential Diagnosis Differential Diagnoses: The differential diagnosis associated with the presentation includes Concerns for necrosis / gangrene to right BKA amputation site with overlying cellulitis. Also some suspicion for osteomyelitis. Will rule out electrolyte abnormalities. Admission/Observation Consideration of admission/observation: Escalation of care including admission/observation considered likely Consult Healthcare Provider Management of the patient was discussed with: Hospitalist and Blow Down Helper Lab Data [facility] Lab Attestation statement: I reviewed the patient's lab results. 03/16/23 12:11 03/16/23 13:16 Labs: Lab Results 03/16/23 03/16/23 03/16/23 Range/Units 12:11 12:12 13:16 WBC 13.1 H (4.8-10.8) X10*3/uL RBC 3.94 L (4.60-5.80) X10*6/uL Hgb 11.7 L (14.0-18.0) g/dl Hct 37.2 L (42.0-52.0) % MCV 94.4 (80.0-98.0) fL MCH 29.7 (27.0-33.0) pg MCHC 31.5 (31.0-36.0) g/dl RDW 21.0 H (11.0-16.0) % Plt Count 258 (160-400) X10*3/uL MPV 10.6 (9.4-12.4) fL Immature Gran % (Auto) 0.4 (0.0-0.4) % Neut % (Auto) 75.2 H (45-73) % Lymph % (Auto) 14.5 L (20-40) % [place] % (Auto) 6.4 (2-11) % Eos % (Auto) 2.8 (0-4) % Baso % (Auto) 0.7 (0-2) % Lymph # (Auto) 1.9 (1.2-4.9) X10*3/uL [place] # (Auto) 0.8 (0.1-1.2) X10*3/uL Eos # (Auto) 0.4 (0.0-0.4) X10*3/uL Baso # (Auto) 0.1 (0.0-0.2) X10*3/uL Abs Immat Gran (auto) 0.05 H (0.00-0.03) X10*3/uL Absolute Neuts (auto) 9.9 H (2.0-8.3) x10*3/uL Absolute Nucleated RBC 0.000 (0.0-0.012) X10*3/uL Nucleated RBC % (auto) 0.0 (0.0-0.2) /100WBC ESR 21 H (0-15) MM/HR Sodium 139 (135-145) mmol/L Potassium 3.7 (3.3-5.1) mmol/L Chloride 111 H (96-108) mmol/L Carbon Dioxide 20 L (22-29) mmol/L Anion Gap 12 (12-20) BUN 20 H (9-16) mg/dL Creatinine 0.70 (0.5-1.4) mg/dL Estim Creat Clear Calc 109.1 Estimated GFR > 60 Random Glucose 156 H (60-115) mg/dL Lactic Acid 1.5 (0.5-2.0) mmol/L Calcium 8.8 D (8.4-10.2) mg/dL Magnesium 2.2 (1.6-2.6) mg/dL Total Bilirubin 0.8 (0.0-1.0) mg/dL AST 31 (5-37) U/L ALT 35 (0-40) U/L Alkaline Phosphatase 124 H (39-117) U/L C-Reactive Protein 2.49 H (< or = 0.50) mg/dL Total Protein 6.6 (6.5-8.0) g/dL Albumin 3.3 L (3.5-5.0) g/dL Independent Interpretation I performed an independent interpretation of an: Plain X-Ray Radiology Impression Discussion of test interpretation with radiology: I have reviewed the radiologist's reading. External Record Review External record reviewed: Inpatient record, Office record, Outpatient record, Prior outpatient labs, Prior outpatient radiology, Primary care record and Outside ED record Core Measures AMI core measures followed: Yes Measure exclusions: not indicated Critical Care Time Critical Care Time Critical Care Time: Yes Total Critical Care Time: 35 Attestation: I attest to this time spent taking care of the patient, obtaining history, physical, reviewing labs, imaging, speaking to my attending, speaking to specialist. Discharge Plan Discharge Clinical Impression: BKA stump complication, Delayed surgical wound healing, Cellulitis Patient Disposition: Admitted As Inpatient Instructions: Cellulitis (ED), Surgical Site Infections (ED) Additional Instructions: Take your medications as prescribed. If you were prescribed antibiotics today, it is important that you take your medication to their entirety, do not skip any doses, do not finish them early. Follow-up with your primary care provider this week. Return to the emergency department with new or worsening symptoms. Such as fevers, chills, chest pain, shortness of breath, nausea, vomiting, dizziness, headache, vision changes, lethargy In case of emergency call 911 Prescriptions: No Action lisinopril 40 mg tablet 40 mg PO DAILY carvedilol 25 mg tablet 25 mg PO BID Qty: 180 1RF Rx Instructions: must administer with a meal/food atorvastatin 80 mg tablet 80 mg PO BEDTIME aspirin 81 mg tablet,delayed release (DR/EC) 81 mg PO DAILY insulin lispro [Humalog KwikPen Insulin] 100 unit/mL insulin pen 10 unit subcut TIDAC insulin glargine [Lantus Solostar U-100 Insulin] 100 unit/mL (3 mL) insulin pen 42 unit subcut BEDTIME pantoprazole 20 mg tablet,delayed release (DR/EC) 20 mg PO DAILY Spiriva Respimat 2.5 mcg/actuation mist 2 puff INHALATION DAILY Combivent Respimat 20-100 mcg/actuation mist 1 puff INHALATION Q6H PRN (Reason: Shortness Of Breath) multivitamin Tablet 1 tab PO DAILY Artificial Tears([id number]) 1-0.2-0.2 % Drops 2 drp OPHTHALMIC (EYE) QID PRN (Reason: Dry Eye(S)) albuterol sulfate 2.5 mg /3 mL (0.083 %) solution for nebulization 2.5 mg inhalation Q4H PRN (Reason: SOB) furosemide 20 mg tablet 20 mg PO DAILY furosemide [Lasix] 40 mg tablet 40 mg PO DAILY amoxicillin-pot clavulanate 875-125 mg tablet 1 tab PO BID Qty: 28 0RF doxycycline hyclate 100 mg tablet 100 mg PO BID Qty: 28 0RF metformin 1,000 mg tablet 1,000 mg PO BIDWM Referrals: Loli Augustin MD [Primary Care Provider] - 2 days
[2023-03-16 13:33] LABS: C Reactive Protein 2.49 mg/dL (< or = 0.50)
[2023-03-16] MEDS: Piperacillin Sodium/Tazobactam 3.375 GM in 0.9 % Sodium Chloride 50 ML IV ×2 (13:35→21:21)
[2023-03-16] MEDS: Morphine Sulfate 4 MG/ML CARTRIDGE IVPUSH (13:35)
[2023-03-16 13:36] LABS: Alanine Aminotransferase 35 U/L (0-40); Albumin Level 3.3 g/dL (3.5-5.0); Alkaline Phosphatase 124 U/L (39-117); Anion Gap 12 (12-20); Aspartate Amino Transferase 31 U/L (5-37); Bilirubin Total 0.8 mg/dL (0.0-1.0); Blood Urea Nitrogen 20 mg/dL (9-16); Calcium 8.8 mg/dL (8.4-10.2); Carbon Dioxide 20 mmol/L (22-29); Chloride 111 mmol/L (96-108); Creatinine Clr Calc Pharmacy 109.1; Estimated Glomerular Filt Rate > 60; Glucose Random 156 mg/dL (60-115); Magnesium 2.2 mg/dL (1.6-2.6); Potassium 3.7 mmol/L (3.3-5.1); Sodium 139 mmol/L (135-145); Total Protein 6.6 g/dL (6.5-8.0)
[2023-03-16 14:12] LABS: Erythrocyte Sedimentation Rate 21 MM/HR (0-15)
[2023-03-16 14:40] VITALS: BP 132/66; PULSE 78; RESP 16; TEMP 36.5; O2SAT 99
--- NOTE | 2023-03-16 15:49 | PHA.MEDREC ---
Pharmacy Consult ? Medication Reconciliation Pharmacy has completed the medication reconciliation. Patient recently discharged 03/09, utilized discharge summary. Valerie Poon, SeveroD
--- NOTE | 2023-03-16 16:06 | PM.IMHP ---
History of Present Illness Date of Service: 03/16/23 Chief Complaint: infected BKA 62yo M with DM2, PAD, ischemic cardiomyopathy/HFrEF, and CAD s/p R BKA 12/21/22 for nonhealing ulcers. He was readmitted 01/14-01/22/23 for infection at the site associated with MRSA bacteremia. He underwent debridement and VAC placement 01/19/23. He completed 4 weeks of IV vancomycin via PICC but then developed cellulitis of the buttocks, for which he was admitted 02/22-02/25/23. Compliance with the wound VAC has been questionable. He was re-admitted again 03/05-03/09/23 for osteomyelitis of the BKA stump and discharged on doxycycline plus amoxicillin-clavaulanate. He was sent in by his [facility]NA due to concern of necrotic tissue and purulent discharge at the R BKA site. His vascular surgeon has previously recommended an AKA but he had declined; now he is practically begging for it. He complains of severe pain and discharge at the site for the past 3 days but no fever, chills, chest pain, or vomiting. He was given IV morphine and IV hydromorphone and 1 dose of IV piperacillin-tazobactam. Dr Dia, his vascular surgeon, was contacted and again recommends AKA. Review of Systems Review of Systems: Yes all other systems are reviewed and are negative [facility] Medical History Infection of amputation site of lower extremity BKA stump complication Below-knee amputation of right lower extremity BPH (benign prostatic hyperplasia) Cardiomyopathy CAD (coronary artery disease) History of peripheral vascular disease Coronary artery disease Cardiomyopathy Essential hypertension Type 2 diabetes mellitus with unspecified complications Abscess, perineum PAD (peripheral artery disease) Asthma High cholesterol HTN (hypertension) Diabetes Family History Father No problems noted. Mother Diabetes HTN (hypertension) Sister No problems noted. Sister Diabetes HTN (hypertension) Sister No problems noted. Surgical History History of surgical removal of pilonidal cyst Hx of hand surgery Hx of hand surgery History of cardiac cath S/P angiogram of extremity Hx of varicose vein stripping Social History Household Members: None Housing: Apartment Housing Other:: elderly housing Are you a primary home health aide caregiver to a significant other at home: No Do you presently have visiting nurse or other home services: Yes Alcohol intake: former Patient Tobacco Use Status: Current everyday Tobacco user Tobacco use type: Cigarette Cigarette Packs Per Day: 0.5 Cigarettes Per Day: 10.0 Years Smoked: 15+/- Second Hand Smoke Exposure: No Advance Directives: Yes Advance Directives on File: Yes Advance Directives Date on File: 12/10/20 service: No Current occupational status: disabled Meds Allergies Allergy/AdvReac Type Severity Reaction Status Date / Time No Known Allergies Allergy Verified 02/22/23 14:54 Active Medications: Current Medications Acetaminophen (Acetaminophen 325 Mg Tablet) 650 mg PO Q6H PRN PRN Reason: Pain, Mild (Pain Scale 1-3) Hydromorphone HCl (Hydromorphone Hcl 0.5 Mg/0.5 Ml Syringe) 0.5 mg IVPUSH Q4H PRN; Protocol PRN Reason: severe pain Vancomycin HCl (Vancomycin/Ns) 2,000 mg in 500 mls @ 250 mls/hr IV ONCE ONE Stop: 03/16/23 17:57 Piperacillin Sod/Tazobactam (Sod 3.375 gm/ Sodium Chloride) 50 mls @ 100 mls/hr IV Q6H [facility] Nicotine (Nicotine 7 Mg Patch.Td24) 7 mg TRANSDERMA DAILY [facility] Nicotine Polacrilex (Nicotine Polacrilex 2 Mg Gum) 2 mg BUCCAL Q2H PRN PRN Reason: Nicotine Cravings Ondansetron HCl (Ondansetron Hcl 4 Mg/2 Ml Vial) 4 mg IVPUSH Q8H PRN PRN Reason: Nausea and Vomiting Pharmacy Consult (Consult Rx Vancomycin Dosing) 1 each MISCELLANE DAILY PRN PRN Reason: Consult order Sodium Chloride (0.9 % Sodium Chloride Flush 3 Ml Syringe) 3 ml IVFLUSH QSHIFT [facility] Home Medications Medication Instructions Recorded Confirmed Last Taken Type aspirin 81 mg tablet,delayed 81 mg PO DAILY 12/10/20 03/16/23 02/22/23 History release atorvastatin 80 mg tablet 80 mg PO BEDTIME 12/10/20 03/16/23 02/21/23 History insulin glargine 100 unit/mL (3 42 unit subcut BEDTIME 12/10/20 03/16/23 02/21/23 History mL) subcutaneous pen (Lantus Solostar U-100 Insulin) insulin lispro 100 unit/mL 10 unit subcut TIDAC 12/10/20 03/16/23 02/22/23 History subcutaneous pen (Humalog KwikPen (U-100) Insulin) lisinopril 40 mg tablet 40 mg PO DAILY 03/23/22 03/16/23 02/22/23 History metformin 1,000 mg tablet 1,000 mg PO BIDWM 08/18/22 03/16/23 02/22/23 History ipratropium 20 mcg-albuterol 100 1 puff inhalation Q6H PRN 11/14/22 03/16/23 12/21/22 06:00 History mcg/actuation mist for inhalation Shortness Of Breath (Combivent Respimat) pantoprazole 20 mg tablet,delayed 20 mg PO DAILY 11/14/22 03/16/23 02/22/23 History release tiotropium bromide 2.5 2 puff inhalation DAILY 11/14/22 03/16/23 02/22/23 History mcg/actuation mist for inhalation (Spiriva Respimat) albuterol sulfate 2.5 mg/3 mL 2.5 mg inhalation Q4H PRN SOB 12/21/22 03/16/23 Unknown History (0.083 %) solution for nebulization furosemide 20 mg tablet 20 mg PO DAILY 12/21/22 03/16/23 02/22/23 History furosemide 40 mg tablet (Lasix) 40 mg PO DAILY 12/21/22 03/16/23 02/22/23 History multivitamin 1 tab PO DAILY 01/14/23 03/16/23 02/22/23 History peg [id number] 1 2 drp ophthalmic (eye) QID PRN Dry 01/14/23 03/16/23 Unknown History %-0.2 %-0.2 % eye drops Eye(S) (Artificial Tears ([id number])) Physical Exam Vital Signs and Narrative: Vital Signs: Last Vital Signs Temp 97.7 F 03/16/23 14:40 Pulse 78 03/16/23 14:40 Resp 16 03/16/23 14:40 BP 132/66 03/16/23 14:40 Pulse Ox 99 03/16/23 14:40 O2 Del Method Room Air 03/16/23 14:40 BMI result Body Mass Index 34.9 Gen: in no acute distress HEENT: sclera anicteric, moist mucus membranes Neck: supple Lungs: clear to auscultation bilaterally Heart: regular rate and rhythm, no murmurs Abd: soft, non-tender, non-distended Ext: R BKA with open wound with purulent drainage and necrotic tissue Skin: warm/well-perfused Neuro: alert and oriented x3, no focal findings Psych: appropriate affect Results Labs 03/16/23 12:11 03/16/23 13:16 Labs: Laboratory Results - last 24 hr 03/16/23 03/16/23 03/16/23 12:11 12:12 13:16 MCV 94.4 MCH 29.7 MCHC 31.5 RDW 21.0 H Plt Count 258 MPV 10.6 Immature Gran % (Auto) 0.4 Neut % (Auto) 75.2 H Lymph % (Auto) 14.5 L Bland % (Auto) 6.4 Eos % (Auto) 2.8 Baso % (Auto) 0.7 Lymph # (Auto) 1.9 Bland # (Auto) 0.8 Eos # (Auto) 0.4 Baso # (Auto) 0.1 Abs Immat Gran (auto) 0.05 H Absolute Neuts (auto) 9.9 H Absolute Nucleated RBC 0.000 Nucleated RBC % (auto) 0.0 ESR 21 H Anion Gap 12 Estim Creat Clear Calc 109.1 Estimated GFR > 60 Random Glucose 156 H Lactic Acid 1.5 Calcium 8.8 D Magnesium 2.2 Total Bilirubin 0.8 AST 31 ALT 35 Alkaline Phosphatase 124 H C-Reactive Protein 2.49 H Total Protein 6.6 Albumin 3.3 L Imaging Radiologist's Impressions: Impressions Knee X-Ray 03/16/23 13:40 IMPRESSION: * Status post below-knee amputation. * No radiographic evidence of osteomyelitis. * Soft tissues are diffusely swollen in the visualized thigh and proximal leg. Assessment and Plan (1) Delayed surgical wound healing: Status: Acute (2) BKA stump complication: Status: Acute Plan 62yo M with PAD s/p BKA 12/21/22 that has not healed and has been repeatedly infected, including with MRSA causing bacteremia. He has failed IV and PO long-term antibiotics and presents with a purulent, necrotic wound. R BKA amputation site infection - Not septic. Admit to Med-Surg. Vascular Surgery consultation; NPO after midnight for likely AKA. Antibiotic coverage with vanco + pip-bahman. Follow blood cultures. PAD CAD ischemic cardiomyopathy chronic HFrEF - continue aspirin, statin, carvedilol, lisinopril, furosemide tobacco abuse - NRT DM2 - basal-bolus insulin VTE ppx - SCD, LMWH after surgery dispo - will likely need to go to STR I anticipate that the patient will stay at least 2 midnights as an inpatient in the hospital due to the above reasons. It is neither reasonable nor safe to care for them in a less acute setting. Time Spent With Patient Time: Total time managing care of this patient today ____ minutes. Quality Stroke Does the patient have a stroke diagnosis?: No VTE Prior VTE?: No VTE Risk Level:: Medical - moderate - high VTE Device Contraindication: N/A - Device Ordered VTE Drug Contraindication: N/A - Med Ordered
[2023-03-16] MEDS: vancomycin/NS 2,000 MG/500 ML PLAST..BAG 250 MG IV (16:15)
[2023-03-16] MEDS: HYDROmorphone HCl 0.5 MG/0.5 ML SYRINGE IVPUSH ×2 (16:16→20:27)
[2023-03-16] MEDS: 0.9 % Sodium Chloride Flush 3 ML SYRINGE IVFLUSH ×2 (16:19→21:21)
[2023-03-16] MEDS: Nicotine 7 MG PATCH.TD24 TRANSDERMA (16:39)
[2023-03-16 18:47] LABS: Glucose, Whole Blood 89 mg/dL (60-115)
[2023-03-16] MEDS: Acetaminophen 325 MG TABLET 650 MG PO (20:26)
[2023-03-16 20:55] VITALS: BMI 35.3
[2023-03-16 20:58] LABS: Glucose, Whole Blood 116 mg/dL (60-115)
[2023-03-16 21:17] VITALS: BP 145/63; PULSE 89; RESP 20; TEMP 36; O2SAT 99
[2023-03-16] MEDS: carvediloL 25 MG TABLET PO (21:19)
[2023-03-16] MEDS: Atorvastatin Calcium 80 MG TABLET PO (21:19)
[2023-03-17] MEDS: Calcium Carbonate 750 MG TAB.CHEW PO (00:06)
[2023-03-17] MEDS: HYDROmorphone HCl 0.5 MG/0.5 ML SYRINGE IVPUSH ×6 (01:00→21:14)
[2023-03-17] MEDS: Piperacillin Sodium/Tazobactam 3.375 GM in 0.9 % Sodium Chloride 50 ML IV ×4 (01:50→19:07)
[2023-03-17 03:13] VITALS: BP 120/53; PULSE 65; RESP 18; TEMP 36.1; O2SAT 96
[2023-03-17] MEDS: vancomycin HCL 1,250 MG in 0.9 % Sodium Chloride 250 ML 166.67 MG IV ×2 (04:07→15:09)
[2023-03-17 06:22] LABS: Creatinine Clr Calc Pharmacy 94.9; Estimated Glomerular Filt Rate > 60
[2023-03-17 07:14] VITALS: BP 124/60; PULSE 68; RESP 18; TEMP 36.1; O2SAT 100
[2023-03-17 07:27] LABS: Glucose, Whole Blood 107 mg/dL (60-115)
[2023-03-17] MEDS: Furosemide 40 MG TABLET PO (07:33)
[2023-03-17] MEDS: Omeprazole 20 MG CAPSULE.DR PO (07:33)
[2023-03-17] MEDS: Furosemide 20 MG TABLET PO (07:33)
[2023-03-17] MEDS: Aspirin Enteric Coated 81 MG TABLET.DR PO (07:34)
[2023-03-17] MEDS: lisinopriL 40 MG TABLET PO (07:34)
[2023-03-17] MEDS: Nicotine 7 MG PATCH.TD24 TRANSDERMA (07:34)
[2023-03-17] MEDS: 0.9 % Sodium Chloride Flush 3 ML SYRINGE IVFLUSH ×2 (07:34→15:10)
[2023-03-17] MEDS: carvediloL 25 MG TABLET PO ×2 (07:35→19:07)
[2023-03-17] MEDS: Multivitamin TABLET 1 TAB PO (07:35)
--- NOTE | 2023-03-17 09:45 | PM.CNGS ---
History of Present Illness Consult details Consult date: 03/17/23 Reason for consult: wound care Narrative: Very complex 62-year-old gentleman presents for evaluation regarding nonhealing right lower extremity BKA stump. He originally underwent his operation on December 21 for right BKA with myodesis. This was poorly healing and subsequently the incision line opened up. He then underwent excisional debridement and placement of wound VAC on January 19. He was extremely noncompliant and was transferred to a rehab facility. He subsequently Rips the VAC often refused replacement. He has had a follow-up hospital visits and was placed on antibiotics as he had refused in above knee amputation. He returns to the hospital with nonhealing and increased pain in that stump. He is actually requesting an above knee amputation at this time. He now presents to us for vascular follow-up. Review of Systems Review of Systems: Yes all other systems are reviewed and are negative Constitutional: Constitutional: Reports no additional constitutional complaints ENT: Reports Normal hearing present Cardiovascular: Cardiovascular: Denies chest pain, Denies chest pain at rest, Denies chest pain with activity and Denies pedal edema Respiratory: Respiratory: Denies cough Gastrointestinal: Gastrointestinal: Denies abdominal pain Musculoskeletal: Musculoskeletal: Denies abnormal gait, Denies muscle cramps and Denies radiating pain into limb Integumentary/Breasts: Skin/Breast: Denies skin ulcer and Denies wounds Neurologic: Reports Normal hearing present and Denies abnormal gait Psychiatric: Psychiatric: Reports no additional psychiatric complaints [facility] Past Medical History Medical History Infection of amputation site of lower extremity BKA stump complication Below-knee amputation of right lower extremity BPH (benign prostatic hyperplasia) Cardiomyopathy CAD (coronary artery disease) History of peripheral vascular disease Coronary artery disease Cardiomyopathy Essential hypertension Type 2 diabetes mellitus with unspecified complications Abscess, perineum PAD (peripheral artery disease) Asthma High cholesterol HTN (hypertension) Diabetes Family History Family History Father No problems noted. Mother Diabetes HTN (hypertension) Sister No problems noted. Sister Diabetes HTN (hypertension) Sister No problems noted. Surgical History Surgical History History of surgical removal of pilonidal cyst Hx of hand surgery Hx of hand surgery History of cardiac cath S/P angiogram of extremity Hx of varicose vein stripping Social History Social History Household Members: None Housing: Apartment Housing Other:: elderly housing Are you a primary managed care director to a significant other at home: No Do you presently have visiting nurse or other home services: Yes Alcohol intake: never Patient Tobacco Use Status: Current everyday Tobacco user Tobacco use type: Cigarette Cigarette Packs Per Day: 0.5 Cigarettes Per Day: 5 Years Smoked: 15+/- Second Hand Smoke Exposure: No Advance Directives Date on File: 12/10/20 service: No Current occupational status: disabled Meds Allergies Allergy/AdvReac Type Severity Reaction Status Date / Time No Known Allergies Allergy Verified 02/22/23 14:54 Active Medications: Current Medications Acetaminophen (Acetaminophen 325 Mg Tablet) 650 mg PO Q6H PRN PRN Reason: Pain, Mild (Pain Scale 1-3) Last Admin: 03/16/23 20:26 Dose: 650 mg Albuterol Sulfate (Albuterol Sulfate (0.083%) 2.5 Mg/3 Ml Vial.Neb) 2.5 mg INHALE Q4H PRN PRN Reason: Shortness of Breath Albuterol/Ipratropium (Albuterol/Iprat 2.5/0.5mg 3 Ml Ampul.Neb) 3 ml INHALE Q6H PRN PRN Reason: shortness of breath Artificial Tears (Artificial Tears 15 Ml Drops) 2 drop EYE-BOTH QID PRN PRN Reason: Dry Eye(S) Aspirin (Aspirin Enteric Coated 81 Mg Tablet.Dr) 81 mg PO DAILY [facility] Last Admin: 03/17/23 07:34 Dose: 81 mg Atorvastatin Calcium (Atorvastatin Calcium 80 Mg Tablet) 80 mg PO BEDTIME [facility] Last Admin: 03/16/23 21:19 Dose: 80 mg Carvedilol (Carvedilol 25 Mg Tablet) 25 mg PO BID [facility]; Protocol Last Admin: 03/17/23 07:35 Dose: 25 mg Dextrose (Dextrose 50 % 25 Gm/50 Ml Syringe) 25 gm IVPUSH Q15M PRN; Protocol PRN Reason: per Hypoglycemia Standing Ord. Furosemide (Furosemide 40 Mg Tablet) 40 mg PO DAILY [facility]; Protocol Last Admin: 03/17/23 07:33 Dose: 40 mg Furosemide (Furosemide 20 Mg Tablet) 20 mg PO DAILY [facility]; Protocol Last Admin: 03/17/23 07:33 Dose: 20 mg Glucose (Glucose Gel 15 Gm Gel..Gram.) 15 gm PO Q15M PRN; Protocol PRN Reason: per Hypoglycemia Standing Ord. Hydromorphone HCl (Hydromorphone Hcl 0.5 Mg/0.5 Ml Syringe) 0.5 mg IVPUSH Q4H PRN; Protocol PRN Reason: severe pain Last Admin: 03/17/23 09:20 Dose: 0.5 mg Piperacillin Sod/Tazobactam (Sod 3.375 gm/ Sodium Chloride) 50 mls @ 100 mls/hr IV Q6H [facility] Last Infusion: 03/17/23 08:22 Dose: Infused Vancomycin HCl 1,250 mg/ (Sodium Chloride) 250 mls @ 166.667 mls/hr IV Q12H [facility] Last Infusion: 03/17/23 05:41 Dose: Infused Insulin Glargine (Insulin Glargine,Hum.Rec.Anlog 100 Unit/Ml 10 Ml Vial) 20 unit SUBCUT BEDTIME [facility] Last Admin: 03/16/23 21:21 Dose: Not Given Insulin Human Lispro (Insulin Lispro 100 Unit/Ml 3 Ml Vial) 0 unit SUBCUT QIDACHS [facility]; Protocol Last Admin: 03/17/23 07:31 Dose: Not Given Lisinopril (Lisinopril 40 Mg Tablet) 40 mg PO DAILY [facility]; Protocol Last Admin: 03/17/23 07:34 Dose: 40 mg Multivitamins/Vitamin C (Multivitamin Tablet) 1 tab PO DAILY [facility] Last Admin: 03/17/23 07:35 Dose: 1 tab Nicotine (Nicotine 7 Mg Patch.Td24) 7 mg TRANSDERMA DAILY [facility] Last Admin: 03/17/23 07:34 Dose: 7 mg Nicotine Polacrilex (Nicotine Polacrilex 2 Mg Gum) 2 mg BUCCAL Q2H PRN PRN Reason: Nicotine Cravings Omeprazole (Omeprazole 20 Mg Capsule.Dr) 20 mg PO DAILY@0630 [facility] Last Admin: 03/17/23 07:33 Dose: 20 mg Ondansetron HCl (Ondansetron Hcl 4 Mg/2 Ml Vial) 4 mg IVPUSH Q8H PRN PRN Reason: Nausea and Vomiting Pharmacy Consult (Consult Rx Vancomycin Dosing) 1 each MISCELLANE DAILY PRN PRN Reason: Consult order Sodium Chloride (0.9 % Sodium Chloride Flush 3 Ml Syringe) 3 ml IVFLUSH [facility] Last Admin: 03/17/23 07:34 Dose: 3 ml Tiotropium [place] (Tiotropium [place] 2.5 Mcg Inhaler) 2 puff INHALE RDAILY [facility] Home Medications Medication Instructions Recorded Confirmed Last Taken Type aspirin 81 mg tablet,delayed 81 mg PO DAILY 12/10/20 03/16/23 02/22/23 History release atorvastatin 80 mg tablet 80 mg PO BEDTIME 12/10/20 03/16/23 02/21/23 History insulin glargine 100 unit/mL (3 42 unit subcut BEDTIME 12/10/20 03/16/23 02/21/23 History mL) subcutaneous pen (Lantus Solostar U-100 Insulin) insulin lispro 100 unit/mL 10 unit subcut TIDAC 12/10/20 03/16/23 02/22/23 History subcutaneous pen (Humalog KwikPen (U-100) Insulin) lisinopril 40 mg tablet 40 mg PO DAILY 03/23/22 03/16/23 02/22/23 History metformin 1,000 mg tablet 1,000 mg PO BIDWM 08/18/22 03/16/23 02/22/23 History ipratropium 20 mcg-albuterol 100 1 puff inhalation Q6H PRN 11/14/22 03/16/23 12/21/22 06:00 History mcg/actuation mist for inhalation Shortness Of Breath (Combivent Respimat) pantoprazole 20 mg tablet,delayed 20 mg PO DAILY 11/14/22 03/16/23 02/22/23 History release tiotropium bromide 2.5 2 puff inhalation DAILY 11/14/22 03/16/23 02/22/23 History mcg/actuation mist for inhalation (Spiriva Respimat) albuterol sulfate 2.5 mg/3 mL 2.5 mg inhalation Q4H PRN SOB 12/21/22 03/16/23 Unknown History (0.083 %) solution for nebulization furosemide 20 mg tablet 20 mg PO DAILY 12/21/22 03/16/23 02/22/23 History furosemide 40 mg tablet (Lasix) 40 mg PO DAILY 12/21/22 03/16/23 02/22/23 History multivitamin 1 tab PO DAILY 01/14/23 03/16/23 02/22/23 History peg [id number] 1 2 drp ophthalmic (eye) QID PRN Dry 01/14/23 03/16/23 Unknown History %-0.2 %-0.2 % eye drops Eye(S) (Artificial Tears ([id number])) Physical Exam Vital Signs: Vital Signs: Last Vital Signs Temp 96.9 F 03/17/23 07:14 Pulse 68 03/17/23 07:14 Resp 18 03/17/23 07:14 BP 124/60 03/17/23 07:14 Pulse Ox 100 03/17/23 07:14 O2 Del Method Room Air 03/17/23 07:14 BMI result Body Mass Index 35.3 Const: General: cooperative, healthy appearing and comfortable Orientation/consciousness: oriented to person, oriented to place and oriented to time HEENT: Head: Yes normal to inspection Neck: Neck: Yes normal visual inspection Carotids: no bruits Chest: Chest palpation & inspection: normal inspection of the chest Resp: Effort & Inspection: normal respiratory effort and able to speak in complete sentences Auscultation: clear to auscultation bilaterally, no crackles, no rales, no rhonchi and no wheezes Cardio: Rate: regular rate Rhythm: regular rhythm Heart sounds: S1 normal heart sound present and S2 normal heart sound present Bruits: no carotid bruits Peripheral pulses: Peripheral pulses 2+ throughout GI: Inspection: Yes normal to inspection Skin: Other: Right above knee stump nonhealing open incision line of approximately 11 x 6 x 0.6 cm poor granulation bed fair amount of fibrinous necrotic material overlying Wounds: no wounds Hair: normal Neuro: General: oriented to person, oriented to place and oriented to time Cranial nerves: Yes CN's II-XII intact bilaterally and Yes Normal hearing present Cognition (Neuro): normal cognition Motor exam (neuro): 5/5 motor strength present throughout Extrem: Other: venous exam: No significant superficial varicosities or spider telangiectasias, minimal edema General: No clubbing, No cyanosis and No edema Psych: Appearance: grossly normal Mental Status: mental status grossly normal Speech and movement: Normal speech and movement present Results Labs 03/16/23 12:11 03/17/23 05:10 Labs: Abnormal lab results 03/16/23 03/16/23 03/16/23 Range/Units 12:11 13:16 20:54 WBC 13.1 H (4.8-10.8) X10*3/uL RBC 3.94 L (4.60-5.80) X10*6/uL Hgb 11.7 L (14.0-18.0) g/dl Hct 37.2 L (42.0-52.0) % RDW 21.0 H (11.0-16.0) % Neut % (Auto) 75.2 H (45-73) % Lymph % (Auto) 14.5 L (20-40) % Abs Immat Gran (auto) 0.05 H (0.00-0.03) X10*3/uL Absolute Neuts (auto) 9.9 H (2.0-8.3) x10*3/uL ESR 21 H (0-15) MM/HR Chloride 111 H (96-108) mmol/L Carbon Dioxide 20 L (22-29) mmol/L BUN 20 H (9-16) mg/dL POC Glucose 116 H (60-115) mg/dL Random Glucose 156 H (60-115) mg/dL Alkaline Phosphatase 124 H (39-117) U/L C-Reactive Protein 2.49 H (< or = 0.50) mg/dL Albumin 3.3 L (3.5-5.0) g/dL Short CBC 03/16/23 Range/Units 12:11 WBC 13.1 H (4.8-10.8) X10*3/uL Hgb 11.7 L (14.0-18.0) g/dl Hct 37.2 L (42.0-52.0) % Plt Count 258 (160-400) X10*3/uL BMP 03/16/23 03/17/23 13:16 05:10 Sodium 139 Potassium 3.7 Chloride 111 H Carbon Dioxide 20 L BUN 20 H Creatinine 0.70 0.81 Calcium 8.8 D Liver Function 03/16/23 Range/Units 13:16 Total Bilirubin 0.8 (0.0-1.0) mg/dL AST 31 (5-37) U/L ALT 35 (0-40) U/L Alkaline Phosphatase 124 H (39-117) U/L Albumin 3.3 L (3.5-5.0) g/dL All other labs normal. Assessment and Plan (1) BKA stump complication: Status: Acute Plan In short patient has a nonhealing right BKA stump. He will require right above knee amputation. Risks benefits complications of the procedure were discussed in detail with the patient. They understood and consented. We will schedule him for tomorrow at 11:00. Thank you for allowing us to assist in his care. If there are any questions or concerns please do not hesitate to contact us. Time Spent With Patient Time: Total time managing care of this patient today ____ minutes. Procedures Date of Service Date of Service: 03/17/23
--- NOTE | 2023-03-17 09:57 | HO.PM.IMPN ---
Subjective Subjective Date of Service: 03/17/23 Interval History: c/o BKA stump pain no fever Review of Systems Review of Systems: Yes all other systems are reviewed and are negative Physical Exam Vital Signs: Vital Signs: Last Vital Signs Temp 96.9 F 03/17/23 07:14 Pulse 68 03/17/23 07:14 Resp 18 03/17/23 07:14 BP 124/60 03/17/23 07:14 Pulse Ox 100 03/17/23 07:14 O2 Del Method Room Air 03/17/23 07:14 BMI result Body Mass Index 35.3 Gen: in no acute distress HEENT: sclera anicteric, moist mucus membranes Neck: supple Lungs: clear to auscultation bilaterally Heart: regular rate and rhythm, no murmurs Abd: soft, non-tender, non-distended Ext: s/p R BKA, open wound with necrosis and purulent discharge Skin: warm/well-perfused Neuro: alert and oriented x3, no focal findings Psych: appropriate affect Objective Data Active Medications Acetaminophen (Acetaminophen 325 Mg Tablet) 650 mg PO Q6H PRN PRN Reason: Pain, Mild (Pain Scale 1-3) Last Admin: 03/16/23 20:26 Dose: 650 mg Documented By: ESTELITA Albuterol Sulfate (Albuterol Sulfate (0.083%) 2.5 Mg/3 Ml Vial.Neb) 2.5 mg INHALE Q4H PRN PRN Reason: Shortness of Breath Albuterol/Ipratropium (Albuterol/Iprat 2.5/0.5mg 3 Ml Ampul.Neb) 3 ml INHALE Q6H PRN PRN Reason: shortness of breath Artificial Tears (Artificial Tears 15 Ml Drops) 2 drop EYE-BOTH QID PRN PRN Reason: Dry Eye(S) Aspirin (Aspirin Enteric Coated 81 Mg Tablet.) 81 mg PO DAILY [facility] Last Admin: 03/17/23 07:34 Dose: 81 mg Documented By: PEPE Atorvastatin Calcium (Atorvastatin Calcium 80 Mg Tablet) 80 mg PO BEDTIME [facility] Last Admin: 03/16/23 21:19 Dose: 80 mg Documented By: EPIFANIOQC Carvedilol (Carvedilol 25 Mg Tablet) 25 mg PO BID [facility]; Protocol Last Admin: 03/17/23 07:35 Dose: 25 mg Documented By: PEPE Dextrose (Dextrose 50 % 25 Gm/50 Ml Syringe) 25 gm IVPUSH Q15M PRN; Protocol PRN Reason: per Hypoglycemia Standing Ord. Furosemide (Furosemide 40 Mg Tablet) 40 mg PO DAILY [facility]; Protocol Last Admin: 03/17/23 07:33 Dose: 40 mg Documented By: PEPE Furosemide (Furosemide 20 Mg Tablet) 20 mg PO DAILY [facility]; Protocol Last Admin: 03/17/23 07:33 Dose: 20 mg Documented By: PEPE Glucose (Glucose Gel 15 Gm Gel..Gram.) 15 gm PO Q15M PRN; Protocol PRN Reason: per Hypoglycemia Standing Ord. Hydromorphone HCl (Hydromorphone Hcl 0.5 Mg/0.5 Ml Syringe) 0.5 mg IVPUSH Q4H PRN; Protocol PRN Reason: severe pain Last Admin: 03/17/23 09:20 Dose: 0.5 mg Documented By: PEPE Piperacillin Sod/Tazobactam (Sod 3.375 gm/ Sodium Chloride) 50 mls @ 100 mls/hr IV Q6H [facility] Last Infusion: 03/17/23 08:22 Dose: Infused Documented By: PEPE Vancomycin HCl 1,250 mg/ (Sodium Chloride) 250 mls @ 166.667 mls/hr IV Q12H [facility] Last Infusion: 03/17/23 05:41 Dose: Infused Documented By: SISSY Insulin Glargine (Insulin Glargine,Hum.Rec.Anlog 100 Unit/Ml 10 Ml Vial) 20 unit SUBCUT BEDTIME [facility] Last Admin: 03/16/23 21:21 Dose: Not Given Documented By: GIBRAN Non-Admin Reason: Physician Held Med Insulin Human Lispro (Insulin Lispro 100 Unit/Ml 3 Ml Vial) 0 unit SUBCUT QIDACHS [facility]; Protocol Last Admin: 03/17/23 07:31 Dose: Not Given Documented By: PEPE Non-Admin Reason: No Insulin Coverage Lisinopril (Lisinopril 40 Mg Tablet) 40 mg PO DAILY [facility]; Protocol Last Admin: 03/17/23 07:34 Dose: 40 mg Documented By: PEPE Multivitamins/Vitamin C (Multivitamin Tablet) 1 tab PO DAILY [facility] Last Admin: 03/17/23 07:35 Dose: 1 tab Documented By: PEPE Nicotine (Nicotine 7 Mg Patch.Td24) 7 mg TRANSDERMA DAILY [facility] Last Admin: 03/17/23 07:34 Dose: 7 mg Documented By: PEPE Nicotine Polacrilex (Nicotine Polacrilex 2 Mg Gum) 2 mg BUCCAL Q2H PRN PRN Reason: Nicotine Cravings Omeprazole (Omeprazole 20 Mg Capsule.Dr) 20 mg PO DAILY@0630 [facility] Last Admin: 03/17/23 07:33 Dose: 20 mg Documented By: PEPE Ondansetron HCl (Ondansetron Hcl 4 Mg/2 Ml Vial) 4 mg IVPUSH Q8H PRN PRN Reason: Nausea and Vomiting Pharmacy Consult (Consult Rx Vancomycin Dosing) 1 each MISCELLANE DAILY PRN PRN Reason: Consult order Sodium Chloride (0.9 % Sodium Chloride Flush 3 Ml Syringe) 3 ml IVFLUSH QSHIFT [facility] Last Admin: 03/17/23 07:34 Dose: 3 ml Documented By: PEPE Tiotropium [place] (Tiotropium [place] 2.5 Mcg Inhaler) 2 puff INHALE RDAILY [facility] Labs 03/16/23 12:11 03/17/23 05:10 Labs: Laboratory Results - last 24 hr 03/16/23 03/16/23 03/16/23 12:11 12:12 13:16 MCV 94.4 MCH 29.7 MCHC 31.5 RDW 21.0 H Plt Count 258 MPV 10.6 Immature Gran % (Auto) 0.4 Neut % (Auto) 75.2 H Lymph % (Auto) 14.5 L [place] % (Auto) 6.4 Eos % (Auto) 2.8 Baso % (Auto) 0.7 Lymph # (Auto) 1.9 [place] # (Auto) 0.8 Eos # (Auto) 0.4 Baso # (Auto) 0.1 Abs Immat Gran (auto) 0.05 H Absolute Neuts (auto) 9.9 H Absolute Nucleated RBC 0.000 Nucleated RBC % (auto) 0.0 ESR 21 H Anion Gap 12 Estim Creat Clear Calc 109.1 Estimated GFR > 60 POC Glucose Random Glucose 156 H Lactic Acid 1.5 Calcium 8.8 D Magnesium 2.2 Total Bilirubin 0.8 AST 31 ALT 35 Alkaline Phosphatase 124 H C-Reactive Protein 2.49 H Total Protein 6.6 Albumin 3.3 L 03/16/23 03/16/23 03/17/23 18:43 20:54 05:10 MCV MCH MCHC RDW Plt Count MPV Immature Gran % (Auto) Neut % (Auto) Lymph % (Auto) [place] % (Auto) Eos % (Auto) Baso % (Auto) Lymph # (Auto) [place] # (Auto) Eos # (Auto) Baso # (Auto) Abs Immat Gran (auto) Absolute Neuts (auto) Absolute Nucleated RBC Nucleated RBC % (auto) ESR Anion Gap Estim Creat Clear Calc 94.9 Estimated GFR > 60 POC Glucose 89 116 H Random Glucose Lactic Acid Calcium Magnesium Total Bilirubin AST ALT Alkaline Phosphatase C-Reactive Protein Total Protein Albumin 03/17/23 07:14 MCV MCH MCHC RDW Plt Count MPV Immature Gran % (Auto) Neut % (Auto) Lymph % (Auto) [place] % (Auto) Eos % (Auto) Baso % (Auto) Lymph # (Auto) [place] # (Auto) Eos # (Auto) Baso # (Auto) Abs Immat Gran (auto) Absolute Neuts (auto) Absolute Nucleated RBC Nucleated RBC % (auto) ESR Anion Gap Estim Creat Clear Calc Estimated GFR POC Glucose 107 Random Glucose Lactic Acid Calcium Magnesium Total Bilirubin AST ALT Alkaline Phosphatase C-Reactive Protein Total Protein Albumin Assessment and Plan (1) BKA stump complication: Status: Acute Plan d2 62yo M with PAD s/p BKA 12/21/22 that has not healed and has been repeatedly infected, including with MRSA causing bacteremia. He failed IV and PO long-term antibiotics and presented with a purulent, necrotic wound. R BKA amputation site infection - vanc + pip-bahman d2, follow BCx - Vasc Surg consulted, plan AKA tomorrow - IV hydromorphone for analgesia PAD CAD ischemic cardiomyopathy chronic HFrEF - continue aspirin, statin, carvedilol, lisinopril, furosemide tobacco abuse - NRT DM2 - basal-bolus insulin VTE ppx - SCD, LMWH after surgery dispo - will likely need to go to STR In my clinical judgment, the patient requires continued inpatient hospitalization for the following reasons: IV ABX, operative mgmt Time Spent With Patient Time: Total time managing care of this patient today _35___ minutes. Quality Stroke Does the patient have a stroke diagnosis?: No VTE Prior VTE?: No VTE Risk Level:: Medical - moderate - high VTE Device Contraindication: N/A - Device Ordered VTE Drug Contraindication: N/A - Med Ordered
[2023-03-17 11:13] LABS: Glucose, Whole Blood 111 mg/dL (60-115)
[2023-03-17 14:03] LABS: Vancomycin Random 14.8 mcg/mL (15-20)
--- NOTE | 2023-03-17 14:14 | HE.PHANOTE ---
RE: VANCO DOSING TROUGH CAME IN AT 14.8 AFTER APPROPRIATE LOAD OF 2000 MG AND ONE DOSE OF 1250 MG. WILL RECHECK TROUGH 03/18 @1400 TO ENSURE SAFETY AND EFFICACY.
[2023-03-17] MEDS: oxyCODONE HCl Immed Release 5 MG TABLET 10 MG PO ×3 (15:10→22:45)
--- NOTE | 2023-03-17 15:30 | MHC.CM.PN ---
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
[2023-03-17 16:00] VITALS: BP 123/58; PULSE 73; RESP 18; TEMP 36.2; O2SAT 98
[2023-03-17 16:41] LABS: Glucose, Whole Blood 143 mg/dL (60-115)
[2023-03-17] MEDS: Atorvastatin Calcium 80 MG TABLET PO (19:07)
[2023-03-17 19:40] VITALS: BP 130/58; PULSE 81; RESP 16; TEMP 36.2; O2SAT 97
[2023-03-17 20:50] LABS: Glucose, Whole Blood 214 mg/dL (60-115)
[2023-03-17] MEDS: Insulin Lispro 100 UNIT/ML 3 ML VIAL SUBCUT (21:13)
[2023-03-17] MEDS: Insulin Glargine,Hum.rec.anlog 100 UNIT/ML 10 ML VIAL 20 UNIT SUBCUT (21:14)
[2023-03-17] MEDS: Acetaminophen 325 MG TABLET 650 MG PO (22:45)
[2023-03-18] VITALS (12 sets, daily range): BP systolic 96–127; BP diastolic 32–70; PULSE 58–72; RESP 16–98; TEMP 36–36.6; O2SAT 18–100
[2023-03-18] MEDS: 0.9 % Sodium Chloride Flush 3 ML SYRINGE IVFLUSH ×4 (00:01→19:31)
[2023-03-18] MEDS: HYDROmorphone HCl 0.5 MG/0.5 ML SYRINGE IVPUSH ×5 (01:16→22:14)
[2023-03-18] MEDS: Piperacillin Sodium/Tazobactam 3.375 GM in 0.9 % Sodium Chloride 50 ML IV ×4 (01:16→19:30)
[2023-03-18] MEDS: vancomycin HCL 1,250 MG in 0.9 % Sodium Chloride 250 ML 166.67 MG IV ×2 (04:02→16:13)
[2023-03-18 06:41] LABS: Hematocrit 33.8 % (42.0-52.0); Hemoglobin 10.4 g/dl (14.0-18.0); Mean Corpuscular HGB Conc 30.8 g/dl (31.0-36.0); Mean Corpuscular Hemoglobin 29.5 pg (27.0-33.0); Mean Corpuscular Volume 95.8 fL (80.0-98.0); Mean Platelet Volume 10.9 fL (9.4-12.4); Platelet Count 250 X10*3/uL (160-400); Red Blood Count 3.53 X10*6/uL (4.60-5.80); Red Cell Distribution Width 20.4 % (11.0-16.0); White Blood Count 11.4 X10*3/uL (4.8-10.8)
[2023-03-18 06:58] LABS: Anion Gap 11 (12-20); Blood Urea Nitrogen 26 mg/dL (9-16); Calcium 8.6 mg/dL (8.4-10.2); Carbon Dioxide 23 mmol/L (22-29); Chloride 105 mmol/L (96-108); Creatinine Clr Calc Pharmacy 92.6; Estimated Glomerular Filt Rate > 60; Glucose Random 117 mg/dL (60-115); Potassium 3.6 mmol/L (3.3-5.1); Sodium 135 mmol/L (135-145)
[2023-03-18 07:46] LABS: Glucose, Whole Blood 124 mg/dL (60-115)
[2023-03-18] MEDS: lisinopriL 40 MG TABLET PO (08:16)
[2023-03-18] MEDS: carvediloL 25 MG TABLET PO ×2 (08:16→19:28)
[2023-03-18] MEDS: Multivitamin TABLET 1 TAB PO (08:16)
[2023-03-18] MEDS: oxyCODONE HCl Immed Release 5 MG TABLET 10 MG PO ×4 (08:16→23:58)
[2023-03-18] MEDS: Acetaminophen 325 MG TABLET 650 MG PO ×2 (08:17→19:28)
[2023-03-18] MEDS: Aspirin Enteric Coated 81 MG TABLET.DR PO (08:17)
[2023-03-18] MEDS: Furosemide 40 MG TABLET PO (08:17)
[2023-03-18] MEDS: Nicotine 7 MG PATCH.TD24 TRANSDERMA (08:17)
[2023-03-18] MEDS: Furosemide 20 MG TABLET PO (08:19)
--- NOTE | 2023-03-18 11:11 | P.CONAN_ITS ---
HPI - Anesthesia Eval Consult details Narrative: 62yo M for urgent right Leg above-knee amputation Patient with with PAD s/p BKA that has not healed and has been repeatedly infected, including with MRSA causing bacteremia. 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 On medical therapy Patient currently denies any chest pain . case discussed with the surgeon , this is a high risk patient but benefits outweigh the risks so will proceed . Patient understands the risks and would like to proceed . [facility] Active Problems Active Problems: All Active Problems (Updated 03/17/23 @ 00:04 by Background Daemon) Cellulitis (Acute) Delayed surgical wound healing (Acute) BKA stump complication (Acute) BKA stump complication (Acute) Osteomyelitis (Acute) Snoring (Acute) Witnessed apneic spells (Acute) Insomnia (Acute) Nocturnal leg cramps (Acute) Cellulitis, perineum (Acute) Urinary retention (Acute) BPH w urinary obs/LUTS (Acute) Nocturia more than twice per night (Acute) SOB (shortness of breath) (Acute) Smoking (Acute) Preoperative cardiovascular examination (Acute) Arterial occlusion, lower extremity (Acute) High cholesterol (Acute) Abscess, perineum (Acute) Past Medical History Medical History Infection of amputation site of lower extremity BKA stump complication Below-knee amputation of right lower extremity BPH (benign prostatic hyperplasia) Cardiomyopathy CAD (coronary artery disease) History of peripheral vascular disease Coronary artery disease Cardiomyopathy Essential hypertension Type 2 diabetes mellitus with unspecified complications Abscess, perineum PAD (peripheral artery disease) Asthma High cholesterol HTN (hypertension) Diabetes Family History Family History Father No problems noted. Mother Diabetes HTN (hypertension) Sister No problems noted. Sister Diabetes HTN (hypertension) Sister No problems noted. Family history of problems with anesthesia: No Surgical History Surgical History History of surgical removal of pilonidal cyst Hx of hand surgery Hx of hand surgery History of cardiac cath S/P angiogram of extremity Hx of varicose vein stripping History of Problems with Anesthesia: No Social History Social History Household Members: None Housing: Apartment Housing Other:: elderly housing Are you a primary behavioral health care coordinator to a significant other at home: No Do you presently have visiting nurse or other home services: Yes Alcohol intake: never Patient Tobacco Use Status: Never used Tobacco Tobacco use type: Cigarette Cigarette Packs Per Day: 0.5 Cigarettes Per Day: 5 Years Smoked: 15+/- Second Hand Smoke Exposure: No Advance Directives Date on File: 12/10/20 service: No Current occupational status: disabled Meds Allergies Allergy/AdvReac Type Severity Reaction Status Date / Time No Known Allergies Allergy Verified 02/22/23 14:54 Active Medications: Current Medications Acetaminophen (Acetaminophen 325 Mg Tablet) 650 mg PO Q6H PRN PRN Reason: Pain, Mild (Pain Scale 1-3) Last Admin: 03/18/23 08:17 Dose: 650 mg Albuterol Sulfate (Albuterol Sulfate (0.083%) 2.5 Mg/3 Ml Vial.Neb) 2.5 mg INHALE Q4H PRN PRN Reason: Shortness of Breath Albuterol/Ipratropium (Albuterol/Iprat 2.5/0.5mg 3 Ml Ampul.Neb) 3 ml INHALE Q6H PRN PRN Reason: shortness of breath Artificial Tears (Artificial Tears 15 Ml Drops) 2 drop EYE-BOTH QID PRN PRN Reason: Dry Eye(S) Aspirin (Aspirin Enteric Coated 81 Mg Tablet.Dr) 81 mg PO DAILY [facility] Last Admin: 03/18/23 08:17 Dose: 81 mg Atorvastatin Calcium (Atorvastatin Calcium 80 Mg Tablet) 80 mg PO BEDTIME [facility] Last Admin: 03/17/23 19:07 Dose: 80 mg Carvedilol (Carvedilol 25 Mg Tablet) 25 mg PO BID [facility]; Protocol Last Admin: 03/18/23 08:16 Dose: 25 mg Dextrose (Dextrose 50 % 25 Gm/50 Ml Syringe) 25 gm IVPUSH Q15M PRN; Protocol PRN Reason: per Hypoglycemia Standing Ord. Furosemide (Furosemide 40 Mg Tablet) 40 mg PO DAILY [facility]; Protocol Last Admin: 03/18/23 08:17 Dose: 40 mg Furosemide (Furosemide 20 Mg Tablet) 20 mg PO DAILY [facility]; Protocol Last Admin: 03/18/23 08:19 Dose: 20 mg Glucose (Glucose Gel 15 Gm Gel..Gram.) 15 gm PO Q15M PRN; Protocol PRN Reason: per Hypoglycemia Standing Ord. Hydromorphone HCl (Hydromorphone Hcl 0.5 Mg/0.5 Ml Syringe) 0.5 mg IVPUSH Q4H PRN; Protocol PRN Reason: severe pain Last Admin: 03/18/23 05:17 Dose: 0.5 mg Piperacillin Sod/Tazobactam (Sod 3.375 gm/ Sodium Chloride) 50 mls @ 100 mls/hr IV Q6H [facility] Last Infusion: 03/18/23 09:21 Dose: Infused Vancomycin HCl 1,250 mg/ (Sodium Chloride) 250 mls @ 166.667 mls/hr IV Q12H [facility] Last Infusion: 03/18/23 05:36 Dose: Infused Insulin Glargine (Insulin Glargine,Hum.Rec.Anlog 100 Unit/Ml 10 Ml Vial) 20 unit SUBCUT BEDTIME [facility] Last Admin: 03/17/23 21:14 Dose: 20 unit Insulin Human Lispro (Insulin Lispro 100 Unit/Ml 3 Ml Vial) 0 unit SUBCUT QIDACHS [facility]; Protocol Last Admin: 03/18/23 07:49 Dose: Not Given Lisinopril (Lisinopril 40 Mg Tablet) 40 mg PO DAILY [facility]; Protocol Last Admin: 03/18/23 08:16 Dose: 40 mg Multivitamins/Vitamin C (Multivitamin Tablet) 1 tab PO DAILY [facility] Last Admin: 03/18/23 08:16 Dose: 1 tab Nicotine (Nicotine 7 Mg Patch.Td24) 7 mg TRANSDERMA DAILY [facility] Last Admin: 03/18/23 08:17 Dose: 7 mg Nicotine Polacrilex (Nicotine Polacrilex 2 Mg Gum) 2 mg BUCCAL Q2H PRN PRN Reason: Nicotine Cravings Omeprazole (Omeprazole 20 Mg Capsule.Dr) 20 mg PO DAILY@0630 [facility] Last Admin: 03/18/23 05:37 Dose: Not Given Ondansetron HCl (Ondansetron Hcl 4 Mg/2 Ml Vial) 4 mg IVPUSH Q8H PRN PRN Reason: Nausea and Vomiting Oxycodone HCl (Oxycodone Hcl Immed Release 5 Mg Tablet) 10 mg PO Q4H PRN PRN Reason: moderate pain Last Admin: 03/18/23 08:16 Dose: 10 mg Pharmacy Consult (Consult Rx Vancomycin Dosing) 1 each MISCELLANE DAILY PRN PRN Reason: Consult order Sodium Chloride (0.9 % Sodium Chloride Flush 3 Ml Syringe) 3 ml IVFLUSH QSHIFT [facility] Last Admin: 03/18/23 08:18 Dose: 3 ml Tiotropium Irene (Tiotropium Irene 2.5 Mcg Inhaler) 2 puff INHALE RDAILY [facility] Last Admin: 03/18/23 07:44 Dose: 2 puff Home Medications Medication Instructions Recorded Confirmed Last Taken Type aspirin 81 mg tablet,delayed 81 mg PO DAILY 12/10/20 03/16/23 02/22/23 History release atorvastatin 80 mg tablet 80 mg PO BEDTIME 12/10/20 03/16/23 02/21/23 History insulin glargine 100 unit/mL (3 42 unit subcut BEDTIME 12/10/20 03/16/23 02/21/23 History mL) subcutaneous pen (Lantus Solostar U-100 Insulin) insulin lispro 100 unit/mL 10 unit subcut TIDAC 12/10/20 03/16/23 02/22/23 History subcutaneous pen (Humalog KwikPen (U-100) Insulin) lisinopril 40 mg tablet 40 mg PO DAILY 03/23/22 03/16/23 02/22/23 History metformin 1,000 mg tablet 1,000 mg PO BIDWM 08/18/22 03/16/23 02/22/23 History ipratropium 20 mcg-albuterol 100 1 puff inhalation Q6H PRN 11/14/22 03/16/23 12/21/22 06:00 History mcg/actuation mist for inhalation Shortness Of Breath (Combivent Respimat) pantoprazole 20 mg tablet,delayed 20 mg PO DAILY 11/14/22 03/16/23 02/22/23 History release tiotropium bromide 2.5 2 puff inhalation DAILY 11/14/22 03/16/23 02/22/23 History mcg/actuation mist for inhalation (Spiriva Respimat) albuterol sulfate 2.5 mg/3 mL 2.5 mg inhalation Q4H PRN SOB 12/21/22 03/16/23 Unknown History (0.083 %) solution for nebulization furosemide 20 mg tablet 20 mg PO DAILY 12/21/22 03/16/23 02/22/23 History furosemide 40 mg tablet (Lasix) 40 mg PO DAILY 12/21/22 03/16/23 02/22/23 History multivitamin 1 tab PO DAILY 01/14/23 03/16/23 02/22/23 History peg [id number] 1 2 drp ophthalmic (eye) QID PRN Dry 01/14/23 03/16/23 Unknown History %-0.2 %-0.2 % eye drops Eye(S) (Artificial Tears ([id number])) Exam Exam Date and Time: March 18, 2023 1111 Height,Weight and Vital Signs: Height 5 ft 4 in Weight 93.4 kg Last Vital Signs Temp 96.9 F 03/18/23 07:38 Pulse 68 03/18/23 07:45 Resp 98 H 03/18/23 07:45 BP 104/54 L 03/18/23 07:38 Pulse Ox 98 03/18/23 07:38 O2 Del Method Room Air 03/18/23 07:38 Pertinent Lab Results Pertinent Lab Results: Laboratory Tests 03/16/23 03/16/23 03/16/23 12:11 12:12 13:16 WBC 13.1 H RBC 3.94 L Hgb 11.7 L Hct 37.2 L MCV 94.4 MCH 29.7 MCHC 31.5 RDW 21.0 H Plt Count 258 MPV 10.6 Immature Gran % (Auto) 0.4 Neut % (Auto) 75.2 H Lymph % (Auto) 14.5 L [place] % (Auto) 6.4 Eos % (Auto) 2.8 Baso % (Auto) 0.7 Lymph # (Auto) 1.9 [place] # (Auto) 0.8 Eos # (Auto) 0.4 Baso # (Auto) 0.1 Abs Immat Gran (auto) 0.05 H Absolute Neuts (auto) 9.9 H Absolute Nucleated RBC 0.000 Nucleated RBC % (auto) 0.0 ESR 21 H Sodium 139 Potassium 3.7 Chloride 111 H Carbon Dioxide 20 L Anion Gap 12 BUN 20 H Creatinine 0.70 Estim Creat Clear Calc 109.1 Estimated GFR > 60 POC Glucose Random Glucose 156 H Lactic Acid 1.5 Calcium 8.8 D Magnesium 2.2 Total Bilirubin 0.8 AST 31 ALT 35 Alkaline Phosphatase 124 H C-Reactive Protein 2.49 H Total Protein 6.6 Albumin 3.3 L Random Vancomycin Blood Type Antibody Screen 03/16/23 03/16/23 03/17/23 18:43 20:54 05:10 WBC RBC Hgb Hct MCV MCH MCHC RDW Plt Count MPV Immature Gran % (Auto) Neut % (Auto) Lymph % (Auto) [place] % (Auto) Eos % (Auto) Baso % (Auto) Lymph # (Auto) [place] # (Auto) Eos # (Auto) Baso # (Auto) Abs Immat Gran (auto) Absolute Neuts (auto) Absolute Nucleated RBC Nucleated RBC % (auto) ESR Sodium Potassium Chloride Carbon Dioxide Anion Gap BUN Creatinine 0.81 Estim Creat Clear Calc 94.9 Estimated GFR > 60 POC Glucose 89 116 H Random Glucose Lactic Acid Calcium Magnesium Total Bilirubin AST ALT Alkaline Phosphatase C-Reactive Protein Total Protein Albumin Random Vancomycin Blood Type Antibody Screen 03/17/23 03/17/23 03/17/23 07:14 10:21 11:05 WBC RBC Hgb Hct MCV MCH MCHC RDW Plt Count MPV Immature Gran % (Auto) Neut % (Auto) Lymph % (Auto) [place] % (Auto) Eos % (Auto) Baso % (Auto) Lymph # (Auto) [place] # (Auto) Eos # (Auto) Baso # (Auto) Abs Immat Gran (auto) Absolute Neuts (auto) Absolute Nucleated RBC Nucleated RBC % (auto) ESR Sodium Potassium Chloride Carbon Dioxide Anion Gap BUN Creatinine Estim Creat Clear Calc Estimated GFR POC Glucose 107 111 Random Glucose Lactic Acid Calcium Magnesium Total Bilirubin AST ALT Alkaline Phosphatase C-Reactive Protein Total Protein Albumin Random Vancomycin Blood Type A Positive Antibody Screen NEGATIVE 03/17/23 03/17/23 03/17/23 13:38 16:16 20:46 WBC RBC Hgb Hct MCV MCH MCHC RDW Plt Count MPV Immature Gran % (Auto) Neut % (Auto) Lymph % (Auto) [place] % (Auto) Eos % (Auto) Baso % (Auto) Lymph # (Auto) [place] # (Auto) Eos # (Auto) Baso # (Auto) Abs Immat Gran (auto) Absolute Neuts (auto) Absolute Nucleated RBC Nucleated RBC % (auto) ESR Sodium Potassium Chloride Carbon Dioxide Anion Gap BUN Creatinine Estim Creat Clear Calc Estimated GFR POC Glucose 143 H 214 H Random Glucose Lactic Acid Calcium Magnesium Total Bilirubin AST ALT Alkaline Phosphatase C-Reactive Protein Total Protein Albumin Random Vancomycin 14.8 L Blood Type Antibody Screen 03/18/23 03/18/23 05:31 07:41 WBC 11.4 H RBC 3.53 L Hgb 10.4 L Hct 33.8 L MCV 95.8 MCH 29.5 MCHC 30.8 L RDW 20.4 H Plt Count 250 MPV 10.9 Immature Gran % (Auto) Neut % (Auto) Lymph % (Auto) [place] % (Auto) Eos % (Auto) Baso % (Auto) Lymph # (Auto) [place] # (Auto) Eos # (Auto) Baso # (Auto) Abs Immat Gran (auto) Absolute Neuts (auto) Absolute Nucleated RBC 0.000 Nucleated RBC % (auto) 0.0 ESR Sodium 135 Potassium 3.6 Chloride 105 Carbon Dioxide 23 Anion Gap 11 L BUN 26 H Creatinine 0.83 Estim Creat Clear Calc 92.6 Estimated GFR > 60 POC Glucose 124 H Random Glucose 117 H Lactic Acid Calcium 8.6 Magnesium Total Bilirubin AST ALT Alkaline Phosphatase C-Reactive Protein Total Protein Albumin Random Vancomycin Blood Type Antibody Screen Narrative Narrative: 01/18/2023 ECHO : Conclusions: - Moderately increased left ventricular cavity size. There is mildly increased left ventricular wall thickness. The left ventricular systolic function is severely decreased. The visually estimated ejection fraction is between 20-25%. - E/E prime ratio is >15, consistent with elevated filling pressures. - Mildly increased right ventricular cavity size. There is low normal right ventricular systolic function. - There is mild thickening of the aortic valve. - Broken chordae noted in some views. No obvious vegetation noted. - No definitive evidence of vegetation on the TTE. Airway Mallampati Class: IV Loose/Missing/Broken Teeth: Yes Assessment and Plan Assessment Anesthesia Assessment: Anesthesia Plan Discussed and Chart Reviewed Final Anesthetic Review Family History of Problems with Anesthesia: No History of Problems with Anesthesia: No NPO: Yes ASA Class: IV and Emergency Final Preanesthetic Review: Meds/Allgs Chart Reviewed, Consent Obtained/Reviewed and Anes Risks/Benef Reviewed Patient Risk: High Procedure Risk: Intermediate Anesthetic Plan Anesthetic Plan: GA and Agree w/ Assess. and Plan Disposition: Inp. Admit - IMC
--- NOTE | 2023-03-18 11:30 | P.PNIM_ITS ---
Subjective Subjective Date of Service: 03/18/23 Interval History: pain controlled no fever/chills NPO for OR This history was taken in Mongolian from the patient. Review of Systems Review of Systems: Yes all other systems are reviewed and are negative Physical Exam 2 Vital Signs: Vital Signs: Last Vital Signs Temp 96.9 F 03/18/23 10:53 Pulse 58 03/18/23 10:53 Resp 16 03/18/23 10:53 BP 103/47 L 03/18/23 10:53 Pulse Ox 98 03/18/23 10:53 O2 Del Method Room Air 03/18/23 10:53 BMI result Body Mass Index 35.3 Gen: in no acute distress HEENT: sclera anicteric, moist mucus membranes Neck: supple Lungs: clear to auscultation bilaterally Heart: regular rate and rhythm, no murmurs Abd: soft, non-tender, non-distended Ext: s/p R BKA, open wound with necrosis and purulent discharge Skin: warm/well-perfused Neuro: alert and oriented x3, no focal findings Psych: appropriate affect Objective Data Active Medications Acetaminophen (Acetaminophen 325 Mg Tablet) 650 mg PO Q6H PRN PRN Reason: Pain, Mild (Pain Scale 1-3) Last Admin: 03/18/23 08:17 Dose: 650 mg Documented By: PEPE Albuterol Sulfate (Albuterol Sulfate (0.083%) 2.5 Mg/3 Ml Vial.Neb) 2.5 mg INHALE Q4H PRN PRN Reason: Shortness of Breath Albuterol/Ipratropium (Albuterol/Iprat 2.5/0.5mg 3 Ml Ampul.Neb) 3 ml INHALE Q6H PRN PRN Reason: shortness of breath Artificial Tears (Artificial Tears 15 Ml Drops) 2 drop EYE-BOTH QID PRN PRN Reason: Dry Eye(S) Aspirin (Aspirin Enteric Coated 81 Mg Tablet.) 81 mg PO DAILY [facility] Last Admin: 03/18/23 08:17 Dose: 81 mg Documented By: PEPE Atorvastatin Calcium (Atorvastatin Calcium 80 Mg Tablet) 80 mg PO BEDTIME [facility] Last Admin: 03/17/23 19:07 Dose: 80 mg Documented By: NANCY Carvedilol (Carvedilol 25 Mg Tablet) 25 mg PO BID [facility]; Protocol Last Admin: 03/18/23 08:16 Dose: 25 mg Documented By: PEPE Dextrose (Dextrose 50 % 25 Gm/50 Ml Syringe) 25 gm IVPUSH Q15M PRN; Protocol PRN Reason: per Hypoglycemia Standing Ord. Furosemide (Furosemide 40 Mg Tablet) 40 mg PO DAILY [facility]; Protocol Last Admin: 03/18/23 08:17 Dose: 40 mg Documented By: PEPE Furosemide (Furosemide 20 Mg Tablet) 20 mg PO DAILY [facility]; Protocol Last Admin: 03/18/23 08:19 Dose: 20 mg Documented By: PEPE Glucose (Glucose Gel 15 Gm Gel..Gram.) 15 gm PO Q15M PRN; Protocol PRN Reason: per Hypoglycemia Standing Ord. Hydromorphone HCl (Hydromorphone Hcl 0.5 Mg/0.5 Ml Syringe) 0.5 mg IVPUSH Q4H PRN; Protocol PRN Reason: severe pain Last Admin: 03/18/23 05:17 Dose: 0.5 mg Documented By: SISSY Piperacillin Sod/Tazobactam (Sod 3.375 gm/ Sodium Chloride) 50 mls @ 100 mls/hr IV Q6H [facility] Last Infusion: 03/18/23 09:21 Dose: Infused Documented By: PEPE Vancomycin HCl 1,250 mg/ (Sodium Chloride) 250 mls @ 166.667 mls/hr IV Q12H [facility] Last Infusion: 03/18/23 05:36 Dose: Infused Documented By: SISSY Insulin Glargine (Insulin Glargine,Hum.Rec.Anlog 100 Unit/Ml 10 Ml Vial) 20 unit SUBCUT BEDTIME [facility] Last Admin: 03/17/23 21:14 Dose: 20 unit Documented By: NANCY Insulin Human Lispro (Insulin Lispro 100 Unit/Ml 3 Ml Vial) 0 unit SUBCUT QIDACHS [facility]; Protocol Last Admin: 03/18/23 07:49 Dose: Not Given Documented By: PEPE Non-Admin Reason: No Insulin Coverage Lisinopril (Lisinopril 40 Mg Tablet) 40 mg PO DAILY [facility]; Protocol Last Admin: 03/18/23 08:16 Dose: 40 mg Documented By: PEPE Multivitamins/Vitamin C (Multivitamin Tablet) 1 tab PO DAILY [facility] Last Admin: 03/18/23 08:16 Dose: 1 tab Documented By: PEPE Nicotine (Nicotine 7 Mg Patch.Td24) 7 mg TRANSDERMA DAILY [facility] Last Admin: 03/18/23 08:17 Dose: 7 mg Documented By: PEPE Nicotine Polacrilex (Nicotine Polacrilex 2 Mg Gum) 2 mg BUCCAL Q2H PRN PRN Reason: Nicotine Cravings Omeprazole (Omeprazole 20 Mg Capsule.Dr) 20 mg PO DAILY@0630 [facility] Last Admin: 03/18/23 05:37 Dose: Not Given Documented By: SISSY Non-Admin Reason: NPO Ondansetron HCl (Ondansetron Hcl 4 Mg/2 Ml Vial) 4 mg IVPUSH Q8H PRN PRN Reason: Nausea and Vomiting Oxycodone HCl (Oxycodone Hcl Immed Release 5 Mg Tablet) 10 mg PO Q4H PRN PRN Reason: moderate pain Last Admin: 03/18/23 08:16 Dose: 10 mg Documented By: PEPE Pharmacy Consult (Consult Rx Vancomycin Dosing) 1 each MISCELLANE DAILY PRN PRN Reason: Consult order Sodium Chloride (0.9 % Sodium Chloride Flush 3 Ml Syringe) 3 ml IVFLUSH QSHIFT [facility] Last Admin: 03/18/23 08:18 Dose: 3 ml Documented By: PEPE Tiotropium [place] (Tiotropium [place] 2.5 Mcg Inhaler) 2 puff INHALE RDAILY [facility] Last Admin: 03/18/23 07:44 Dose: 2 puff Documented By: LULACARR Labs 03/18/23 05:31 03/18/23 05:31 Labs: Laboratory Results - last 24 hr 03/17/23 03/17/23 03/17/23 10:21 13:38 16:16 MCV MCH MCHC RDW Plt Count MPV Absolute Nucleated RBC Nucleated RBC % (auto) Anion Gap Estim Creat Clear Calc Estimated GFR POC Glucose 143 H Random Glucose Calcium Random Vancomycin 14.8 L Blood Type A Positive Antibody Screen NEGATIVE 03/17/23 03/18/23 03/18/23 20:46 05:31 07:41 MCV 95.8 MCH 29.5 MCHC 30.8 L RDW 20.4 H Plt Count 250 MPV 10.9 Absolute Nucleated RBC 0.000 Nucleated RBC % (auto) 0.0 Anion Gap 11 L Estim Creat Clear Calc 92.6 Estimated GFR > 60 POC Glucose 214 H 124 H Random Glucose 117 H Calcium 8.6 Random Vancomycin Blood Type Antibody Screen Microbiology Microbiology Results: Microbiology 03/16/23 12:11 Blood Culture - Preliminary Blood - Venous No growth after 24 hours. 03/16/23 12:13 Blood Culture - Preliminary Blood - Venous No growth after 24 hours. Assessment and Plan (1) BKA stump complication: Status: Acute Plan d3 62yo M with PAD s/p BKA 12/21/22 that has not healed and has been repeatedly infected, including with MRSA causing bacteremia. He failed IV and PO long-term antibiotics and presented with a purulent, necrotic wound. R BKA amputation site infection - vanc + pip-bahman d3, follow BCx - Vasc Surg consulted, plan AKA today - IV hydromorphone + PO oxycodone for analgesia PAD CAD ischemic cardiomyopathy chronic HFrEF - continue aspirin, statin, carvedilol, lisinopril, furosemide tobacco abuse - NRT DM2 - basal-bolus insulin VTE ppx - SCD, LMWH after surgery dispo - will likely need to go to [facility] In my clinical judgment, the patient requires continued inpatient hospitalization for the following reasons: IV ABX, operative mgmt Time Spent With Patient Time: Total time managing care of this patient today ___35_ minutes. Quality Stroke Does the patient have a stroke diagnosis?: No VTE Prior VTE?: No VTE Risk Level:: Medical - moderate - high VTE Device Contraindication: N/A - Device Ordered VTE Drug Contraindication: N/A - Med Ordered
[2023-03-18 11:41] LABS: Glucose, Whole Blood 120 mg/dL (60-115)
--- NOTE | 2023-03-18 13:11 | W.PM.OPN ---
Operative Note Operative Note Date of Service: 03/18/23 Narrative: Operative note by [facility] Preoperative diagnosis: 1. Nonhealing right BKA stump Postoperative diagnosis: Same Procedure: 1. Right Leg above-knee amputation 2. Myodesis Surgeon:Justin Dia M.D. Family Life Educator: [place] Anesthesia: General Specimens: One Drains: None Estimated blood loss:100 ml Indications: Complex 62-year-old diabetic gentleman who had a right BKA. Extremely noncompliant and had ripped off his wound VAC now presents for above knee amputation. The patient has signed the informed consent after reviewing risks, complications, benefits, and alternatives previously discussed with the patient. The patient was given the opportunity to ask any additional questions or voice any concerns. All questions were answered to the patient's satisfaction. Procedure in detail: The patient was brought to the operating room prior to which a time-out was called for patient identification and site verification. The patient was placed in a supine position. The right lower extremity was prepped and draped in the standard surgical fashion. The intended incision site was marked. The anterior aspect of the incision was made approximately 10 cm above the knee. The incision was carried through the fascia. A fishmouth incision was carried out through the entire length of the skin circumferentially. We then transected the femur using a power saw. We removed the posterior muscular bed. This transected the entire specimen above knee. This was then passed off as specimen. In the femur the medial and lateral aspects drill holes were then created. Using 2-0 silk, the muscle was then buttressed to the femur. The wound was then closed using 2-0 poly Sorb. This was used to bring together the fascia from the posterior flap to the anterior cut. We then reapproximated the superficial layer with 3-0 poly Sorb suture. Finally skin was closed using 2-0 nylon in a mattress fashion. In addition we used skin clips. The stump was then dressed with Xeroform, Kerlix and an Canelo wrap. The patient tolerated the procedure well. They were brought to recovery with stable vitals. At the end the case sponge needle instrument counts were correct x2. This note is constructed using voice recognition software. While every effort has been made to ensure accuracy, preparation operator errors may have been included. Thank you for allowing me to participate in the care of your patient. Yours sincerely, Justin Dia MD, FACS, R.P.V.I.
--- NOTE | 2023-03-18 15:04 | PC.NURSE ---
1415- Patient transferred back to 380 from PACU s/p R above knee amputation. R leg wrapped with dakotah wrap, no staining noted. Patient feeling well, pain well controlled. Tolerating fluids. Zosyn antibiotic hung per EMAR. All needs met.
[2023-03-18 15:35] LABS: Vancomycin Random 16.4 mcg/mL (15-20)
[2023-03-18 16:07] LABS: Glucose, Whole Blood 123 mg/dL (60-115)
[2023-03-18] MEDS: ondansetron HCL 4 MG/2 ML VIAL IVPUSH (16:44)
[2023-03-18] MEDS: Atorvastatin Calcium 80 MG TABLET PO (19:29)
[2023-03-18 19:51] LABS: Glucose, Whole Blood 155 mg/dL (60-115)
[2023-03-18] MEDS: Insulin Lispro 100 UNIT/ML 3 ML VIAL SUBCUT (20:00)
[2023-03-18] MEDS: Insulin Glargine,Hum.rec.anlog 100 UNIT/ML 10 ML VIAL 20 UNIT SUBCUT (20:01)
[2023-03-19] VITALS (7 sets, daily range): BP systolic 90–120; BP diastolic 50–60; PULSE 62–82; RESP 16–20; TEMP 36–36.8; O2SAT 95–98
[2023-03-19] MEDS: Piperacillin Sodium/Tazobactam 3.375 GM in 0.9 % Sodium Chloride 50 ML IV ×4 (02:15→20:25)
[2023-03-19] MEDS: HYDROmorphone HCl 0.5 MG/0.5 ML SYRINGE IVPUSH ×3 (02:15→18:41)
[2023-03-19] MEDS: vancomycin HCL 1,250 MG in 0.9 % Sodium Chloride 250 ML 166.67 MG IV ×2 (03:05→15:55)
[2023-03-19] MEDS: Omeprazole 20 MG CAPSULE.DR PO (06:14)
[2023-03-19] MEDS: polyethylene glycoL 3350 17 GM POWD.PACK PO (06:14)
[2023-03-19 06:16] LABS: Hematocrit 30.9 % (42.0-52.0); Hemoglobin 9.9 g/dl (14.0-18.0); Mean Corpuscular Hemoglobin 30.5 pg (27.0-33.0); Mean Corpuscular Volume 95.1 fL (80.0-98.0); Mean Platelet Volume 10.7 fL (9.4-12.4); Platelet Count 262 X10*3/uL (160-400); Red Blood Count 3.25 X10*6/uL (4.60-5.80); Red Cell Distribution Width 19.8 % (11.0-16.0); White Blood Count 12.3 X10*3/uL (4.8-10.8)
[2023-03-19 06:30] LABS: Anion Gap 13 (12-20); Blood Urea Nitrogen 22 mg/dL (9-16); Calcium 8.4 mg/dL (8.4-10.2); Carbon Dioxide 21 mmol/L (22-29); Chloride 105 mmol/L (96-108); Creatinine Clr Calc Pharmacy 96.1; Estimated Glomerular Filt Rate > 60; Glucose Random 121 mg/dL (60-115); Potassium 3.7 mmol/L (3.3-5.1); Sodium 135 mmol/L (135-145)
[2023-03-19 07:11] LABS: Glucose, Whole Blood 118 mg/dL (60-115)
[2023-03-19] MEDS: Acetaminophen 325 MG TABLET 650 MG PO (08:24)
[2023-03-19] MEDS: Multivitamin TABLET 1 TAB PO (08:24)
[2023-03-19] MEDS: Furosemide 20 MG TABLET PO (08:24)
[2023-03-19] MEDS: carvediloL 25 MG TABLET PO (08:24)
[2023-03-19] MEDS: Furosemide 40 MG TABLET PO (08:25)
[2023-03-19] MEDS: Nicotine 7 MG PATCH.TD24 TRANSDERMA (08:25)
[2023-03-19] MEDS: oxyCODONE HCl Immed Release 5 MG TABLET 10 MG PO ×3 (08:25→21:38)
[2023-03-19] MEDS: lisinopriL 40 MG TABLET PO (08:25)
[2023-03-19] MEDS: Aspirin Enteric Coated 81 MG TABLET.DR PO (08:25)
[2023-03-19] MEDS: 0.9 % Sodium Chloride Flush 3 ML SYRINGE IVFLUSH ×3 (08:27→20:07)
[2023-03-19 10:54] LABS: Glucose, Whole Blood 125 mg/dL (60-115)
--- NOTE | 2023-03-19 11:41 | HO.VASCPN ---
Subjective Subjective Date of Service: 03/19/23 Patient reports: no new complaints and feels better Interval history: 62-year-old gentleman postop day 1 status post right AKA. Reports he is feeling significantly better. No pain and discomfort overnight. He reports he was actually able to get a good night's rest after many days. He is now for postoperative follow-up. Physical Exam Vital Signs: Vital Signs: Last Vital Signs Temp 97.8 F 03/19/23 07:45 Pulse 67 03/19/23 08:12 Resp 16 03/19/23 08:12 BP 110/53 L 03/19/23 07:45 Pulse Ox 96 03/19/23 07:45 O2 Del Method Room Air 03/19/23 07:45 O2 Flow Rate 2 03/18/23 13:43 BMI result Body Mass Index 35.3 Const: General: cooperative, healthy appearing and no acute distress Orientation/consciousness: oriented to person, oriented to place and oriented to time HEENT: Head: Yes normal to inspection Neck: Carotids: no bruits Chest: Chest palpation & inspection: normal inspection of the chest Resp: Effort & Inspection: normal respiratory effort and able to speak in complete sentences Auscultation: clear to auscultation bilaterally Cardio: Rate: regular rate Heart sounds: S1 normal heart sound present and S2 normal heart sound present GI: Inspection: Yes normal to inspection Skin: Other: Right stump dressing clean dry intact General skin exam: no rashes or lesions noted Wounds: no wounds Neuro: General: oriented to person, oriented to place, oriented to time and CN's II-XI intact bilaterally Extrem: General: Yes normal to inspection, Yes full ROM and Yes no clubbing, cyanosis or edema Psych: Appearance: grossly normal and well kempt Speech and movement: Normal speech and movement present Affect: normal affect Progress Note: A&P Assessment and plan (1) Right above-knee amputee: Status: Acute Assessment and Plan: In short patient is status post right above knee amputation. Will continue to antibiotics for now as there was a fair amount of edema and cellulitis associated with the stump. Will plan for dressing change on Wednesday. Would most likely need rehab placement after that. Thank you for allowing us to assist in his care. If there are any questions or concerns please do not hesitate to contact us Time Spent With Patient Time: Total time managing care of this patient today ____ minutes. Procedures Date of Service Date of Service: 03/19/23 Quality Stroke Does the patient have a stroke diagnosis?: No VTE Prior VTE?: No VTE Risk Level:: Medical - moderate - high VTE Device Contraindication: N/A - Device Ordered VTE Drug Contraindication: N/A - Med Ordered
--- NOTE | 2023-03-19 12:12 | P.PNIM_ITS ---
Subjective Subjective Date of Service: 03/19/23 Interval History: POD1 pain controlled no fever This history was taken in [place]se from the patient. Review of Systems Review of Systems: Yes all other systems are reviewed and are negative Physical Exam 2 Vital Signs: Vital Signs: Last Vital Signs Temp 97.8 F 03/19/23 07:45 Pulse 67 03/19/23 08:12 Resp 16 03/19/23 08:12 BP 110/53 L 03/19/23 07:45 Pulse Ox 96 03/19/23 07:45 O2 Del Method Room Air 03/19/23 07:45 O2 Flow Rate 2 03/18/23 13:43 BMI result Body Mass Index 35.3 Gen: in no acute distress HEENT: sclera anicteric, moist mucus membranes Neck: supple Lungs: clear to auscultation bilaterally Heart: regular rate and rhythm, no murmurs Abd: soft, non-tender, non-distended Ext: s/p R AKA with dry dressing Skin: warm/well-perfused Neuro: alert and oriented x3, no focal findings Psych: appropriate affect Objective Data Active Medications Acetaminophen (Acetaminophen 325 Mg Tablet) 650 mg PO Q6H PRN PRN Reason: Pain, Mild (Pain Scale 1-3) Last Admin: 03/19/23 08:24 Dose: 650 mg Documented By: PEPE Albuterol Sulfate (Albuterol Sulfate (0.083%) 2.5 Mg/3 Ml Vial.Neb) 2.5 mg INHALE Q4H PRN PRN Reason: Shortness of Breath Albuterol/Ipratropium (Albuterol/Iprat 2.5/0.5mg 3 Ml Ampul.Neb) 3 ml INHALE Q6H PRN PRN Reason: shortness of breath Artificial Tears (Artificial Tears 15 Ml Drops) 2 drop EYE-BOTH QID PRN PRN Reason: Dry Eye(S) Aspirin (Aspirin Enteric Coated 81 Mg Tablet.) 81 mg PO DAILY [facility] Last Admin: 03/19/23 08:25 Dose: 81 mg Documented By: PEPE Atorvastatin Calcium (Atorvastatin Calcium 80 Mg Tablet) 80 mg PO BEDTIME [facility] Last Admin: 03/18/23 19:29 Dose: 80 mg Documented By: GIBRAN Carvedilol (Carvedilol 25 Mg Tablet) 25 mg PO BID [facility]; Protocol Last Admin: 03/19/23 08:24 Dose: 25 mg Documented By: PEPE Dextrose (Dextrose 50 % 25 Gm/50 Ml Syringe) 25 gm IVPUSH Q15M PRN; Protocol PRN Reason: per Hypoglycemia Standing Ord. Furosemide (Furosemide 40 Mg Tablet) 40 mg PO DAILY [facility]; Protocol Last Admin: 03/19/23 08:25 Dose: 40 mg Documented By: PEPE Furosemide (Furosemide 20 Mg Tablet) 20 mg PO DAILY [facility]; Protocol Last Admin: 03/19/23 08:24 Dose: 20 mg Documented By: PEPE Glucose (Glucose Gel 15 Gm Gel..Gram.) 15 gm PO Q15M PRN; Protocol PRN Reason: per Hypoglycemia Standing Ord. Hydromorphone HCl (Hydromorphone Hcl 0.5 Mg/0.5 Ml Syringe) 0.5 mg IVPUSH Q4H PRN; Protocol PRN Reason: severe pain Last Admin: 03/19/23 06:14 Dose: 0.5 mg Documented By: GIBRAN Piperacillin Sod/Tazobactam (Sod 3.375 gm/ Sodium Chloride) 50 mls @ 100 mls/hr IV Q6H [facility] Last Infusion: 03/19/23 09:18 Dose: Infused Documented By: PEPE Vancomycin HCl 1,250 mg/ (Sodium Chloride) 250 mls @ 166.667 mls/hr IV Q12H [facility] Last Infusion: 03/19/23 04:41 Dose: Infused Documented By: GIBRAN Insulin Glargine (Insulin Glargine,Hum.Rec.Anlog 100 Unit/Ml 10 Ml Vial) 20 unit SUBCUT BEDTIME [facility] Last Admin: 03/18/23 20:01 Dose: 20 unit Documented By: GIBRAN Insulin Human Lispro (Insulin Lispro 100 Unit/Ml 3 Ml Vial) 0 unit SUBCUT QIDACHS [facility]; Protocol Last Admin: 03/19/23 10:52 Dose: Not Given Documented By: PEPE Non-Admin Reason: No Insulin Coverage Lisinopril (Lisinopril 40 Mg Tablet) 40 mg PO DAILY [facility]; Protocol Last Admin: 03/19/23 08:25 Dose: 40 mg Documented By: PEPE Multivitamins/Vitamin C (Multivitamin Tablet) 1 tab PO DAILY [facility] Last Admin: 03/19/23 08:24 Dose: 1 tab Documented By: PEPE Nicotine (Nicotine 7 Mg Patch.Td24) 7 mg TRANSDERMA DAILY [facility] Last Admin: 03/19/23 08:25 Dose: 7 mg Documented By: PEPE Nicotine Polacrilex (Nicotine Polacrilex 2 Mg Gum) 2 mg BUCCAL Q2H PRN PRN Reason: Nicotine Cravings Omeprazole (Omeprazole 20 Mg Capsule.Dr) 20 mg PO DAILY@0630 [facility] Last Admin: 03/19/23 06:14 Dose: 20 mg Documented By: GIBRAN Ondansetron HCl (Ondansetron Hcl 4 Mg/2 Ml Vial) 4 mg IVPUSH Q8H PRN PRN Reason: Nausea and Vomiting Last Admin: 03/18/23 16:44 Dose: 4 mg Documented By: JOHN PAUL Oxycodone HCl (Oxycodone Hcl Immed Release 5 Mg Tablet) 10 mg PO Q4H PRN PRN Reason: moderate pain Last Admin: 03/19/23 08:25 Dose: 10 mg Documented By: PEPE Pharmacy Consult (Consult Rx Vancomycin Dosing) 1 each MISCELLANE DAILY PRN PRN Reason: Consult order Sodium Chloride (0.9 % Sodium Chloride Flush 3 Ml Syringe) 3 ml IVFLUSH QSHIFT [facility] Last Admin: 03/19/23 08:27 Dose: 3 ml Documented By: PEPE Tiotropium [place] (Tiotropium [place] 2.5 Mcg Inhaler) 2 puff INHALE RDAILY [facility] Last Admin: 03/19/23 08:09 Dose: 2 puff Documented By: JAY Labs 03/19/23 05:48 03/19/23 05:48 Labs: Laboratory Results - last 24 hr 03/18/23 03/18/23 03/18/23 14:32 16:04 19:35 MCV MCH MCHC RDW Plt Count MPV Absolute Nucleated RBC Nucleated RBC % (auto) Anion Gap Estim Creat Clear Calc Estimated GFR POC Glucose 123 H 155 H Random Glucose Calcium Random Vancomycin 16.4 03/19/23 03/19/23 03/19/23 05:48 07:06 10:50 MCV 95.1 MCH 30.5 MCHC 32.0 RDW 19.8 H Plt Count 262 MPV 10.7 Absolute Nucleated RBC 0.000 Nucleated RBC % (auto) 0.0 Anion Gap 13 Estim Creat Clear Calc 96.1 Estimated GFR > 60 POC Glucose 118 H 125 H Random Glucose 121 H Calcium 8.4 Random Vancomycin Microbiology Microbiology Results: Microbiology 03/16/23 12:13 Blood Culture - Preliminary Blood - Venous No growth after 48 hours. 03/16/23 12:11 Blood Culture - Preliminary Blood - Venous No growth after 48 hours. Assessment and Plan (1) BKA stump complication: Status: Acute Plan d4 62yo M with PAD s/p BKA 12/21/22 that has not healed and has been repeatedly infected, including with MRSA causing bacteremia. He failed IV and PO long-term antibiotics and presented with a purulent, necrotic wound. R BKA amputation site infection - vanc + pip-bahman d4, BCx negative - POD1 AKA, dressing change 03/22/23 then likely discharge - IV hydromorphone + PO oxycodone for analgesia PAD CAD ischemic cardiomyopathy chronic HFrEF - continue aspirin, statin, carvedilol, lisinopril, furosemide tobacco abuse - NRT DM2 - basal-bolus insulin VTE ppx - SCD, LMWH after surgery dispo - PT consult In my clinical judgment, the patient requires continued inpatient hospitalization for the following reasons: IV ABX, postoperative mgmt Time Spent With Patient Time: Total time managing care of this patient today __35__ minutes. Quality Stroke Does the patient have a stroke diagnosis?: No VTE Prior VTE?: No VTE Risk Level:: Medical - moderate - high VTE Device Contraindication: N/A - Device Ordered VTE Drug Contraindication: N/A - Med Ordered
[2023-03-19 14:29] LABS: Vancomycin Random 18.3 mcg/mL (15-20)
--- NOTE | 2023-03-19 14:34 | HE.PHANOTE ---
RE VANCO DOSING SCR STABLE AND PT APPEARS TO BE AT STEADY STATE WITH TROUGH 18.3. RECHECK LEVEL 03/21 @1400.
--- NOTE | 2023-03-19 15:45 | HO.POSTANES ---
Post Anesthesia Evaluation Post Anesthesia Evaluation Date of Service: 03/19/23 Vital Signs: Vital Signs Temp Pulse Resp BP Pulse Ox O2 Del Method 03/19/23 13:17 62 90/56 L 95 03/19/23 12:00 96.8 F 62 19 90/56 L 95 Room Air 03/19/23 08:12 67 16 03/19/23 07:45 97.8 F 69 16 110/53 L 96 Room Air Anesthesia: General Mental Status: Awake Pain Control: Satisfactory Nausea/Vomiting: None Hydration: Adequate Anesthesia-Related Issues: No Anes. Related Issues
[2023-03-19 16:52] LABS: Glucose, Whole Blood 238 mg/dL (60-115)
[2023-03-19] MEDS: Insulin Lispro 100 UNIT/ML 3 ML VIAL SUBCUT (16:57)
[2023-03-19] MEDS: Atorvastatin Calcium 80 MG TABLET PO (20:24)
[2023-03-19 21:00] LABS: Glucose, Whole Blood 149 mg/dL (60-115)
[2023-03-19] MEDS: Insulin Glargine,Hum.rec.anlog 100 UNIT/ML 10 ML VIAL 20 UNIT SUBCUT (21:36)
[2023-03-20] VITALS (7 sets, daily range): BP systolic 104–143; BP diastolic 52–62; PULSE 70–87; RESP 16–20; TEMP 21–37; O2SAT 95–100
[2023-03-20] MEDS: HYDROmorphone HCl 0.5 MG/0.5 ML SYRINGE IVPUSH ×3 (01:10→19:54)
[2023-03-20] MEDS: oxyCODONE HCl Immed Release 5 MG TABLET 10 MG PO ×3 (01:52→18:03)
[2023-03-20] MEDS: Acetaminophen 325 MG TABLET 650 MG PO (01:52)
--- NOTE | 2023-03-20 02:11 | PC.NURSE ---
Pt had 16 beat V-tach notified.Pt asymptomatic no new orders at this time.
[2023-03-20] MEDS: Piperacillin Sodium/Tazobactam 3.375 GM in 0.9 % Sodium Chloride 50 ML IV ×4 (02:24→20:39)
[2023-03-20] MEDS: vancomycin HCL 1,250 MG in 0.9 % Sodium Chloride 250 ML 166.67 MG IV ×2 (04:40→16:02)
[2023-03-20] MEDS: Omeprazole 20 MG CAPSULE.DR PO (05:40)
[2023-03-20 06:06] LABS: Creatinine Clr Calc Pharmacy 97.3; Estimated Glomerular Filt Rate > 60
[2023-03-20 07:52] LABS: Glucose, Whole Blood 124 mg/dL (60-115)
[2023-03-20] MEDS: 0.9 % Sodium Chloride Flush 3 ML SYRINGE IVFLUSH ×3 (09:04→19:54)
[2023-03-20] MEDS: Furosemide 40 MG TABLET PO (09:04)
[2023-03-20] MEDS: Aspirin Enteric Coated 81 MG TABLET.DR PO (09:04)
[2023-03-20] MEDS: lisinopriL 40 MG TABLET PO (09:04)
[2023-03-20] MEDS: Multivitamin TABLET 1 TAB PO (09:04)
[2023-03-20] MEDS: Furosemide 20 MG TABLET PO (09:04)
[2023-03-20] MEDS: carvediloL 25 MG TABLET PO ×2 (09:04→20:38)
[2023-03-20] MEDS: Nicotine 7 MG PATCH.TD24 TRANSDERMA (09:05)
--- NOTE | 2023-03-20 11:11 | HO.PM.IMPN ---
Subjective Subjective Date of Service: 03/20/23 Interval History: pain controlled no fever no chest pain no dyspnea Review of Systems Review of Systems: Yes all other systems are reviewed and are negative Physical Exam Vital Signs: Vital Signs: Last Vital Signs Temp 98.6 F 03/20/23 08:00 Pulse 87 03/20/23 08:36 Resp 18 03/20/23 08:36 BP 122/60 03/20/23 08:00 Pulse Ox 98 03/20/23 08:00 O2 Del Method Room Air 03/20/23 08:00 O2 Flow Rate 2 03/18/23 13:43 BMI result Body Mass Index 35.3 Gen: in no acute distress HEENT: sclera anicteric, moist mucus membranes Neck: supple Lungs: clear to auscultation bilaterally Heart: regular rate and rhythm, no murmurs Abd: soft, non-tender, non-distended Ext: s/p R AKA with dry dressing Skin: warm/well-perfused Neuro: alert and oriented x3, no focal findings Psych: appropriate affect Objective Data Active Medications Acetaminophen (Acetaminophen 325 Mg Tablet) 650 mg PO Q6H PRN PRN Reason: Pain, Mild (Pain Scale 1-3) Last Admin: 03/20/23 01:52 Dose: 650 mg Documented By: DEMETRA Albuterol Sulfate (Albuterol Sulfate (0.083%) 2.5 Mg/3 Ml Vial.Neb) 2.5 mg INHALE Q4H PRN PRN Reason: Shortness of Breath Albuterol/Ipratropium (Albuterol/Iprat 2.5/0.5mg 3 Ml Ampul.Neb) 3 ml INHALE Q6H PRN PRN Reason: shortness of breath Artificial Tears (Artificial Tears 15 Ml Drops) 2 drop EYE-BOTH QID PRN PRN Reason: Dry Eye(S) Aspirin (Aspirin Enteric Coated 81 Mg Tablet.) 81 mg PO DAILY [facility] Last Admin: 03/20/23 09:04 Dose: 81 mg Documented By: MELVIN Atorvastatin Calcium (Atorvastatin Calcium 80 Mg Tablet) 80 mg PO BEDTIME [facility] Last Admin: 03/19/23 20:24 Dose: 80 mg Documented By: JAYSON Carvedilol (Carvedilol 25 Mg Tablet) 25 mg PO BID [facility]; Protocol Last Admin: 03/20/23 09:04 Dose: 25 mg Documented By: MELVIN Dextrose (Dextrose 50 % 25 Gm/50 Ml Syringe) 25 gm IVPUSH Q15M PRN; Protocol PRN Reason: per Hypoglycemia Standing Ord. Furosemide (Furosemide 40 Mg Tablet) 40 mg PO DAILY [facility]; Protocol Last Admin: 03/20/23 09:04 Dose: 40 mg Documented By: MELVIN Furosemide (Furosemide 20 Mg Tablet) 20 mg PO DAILY [facility]; Protocol Last Admin: 03/20/23 09:04 Dose: 20 mg Documented By: MELVIN Glucose (Glucose Gel 15 Gm Gel..Gram.) 15 gm PO Q15M PRN; Protocol PRN Reason: per Hypoglycemia Standing Ord. Hydromorphone HCl (Hydromorphone Hcl 0.5 Mg/0.5 Ml Syringe) 0.5 mg IVPUSH Q4H PRN; Protocol PRN Reason: severe pain Last Admin: 03/20/23 09:59 Dose: 0.5 mg Documented By: MELVIN Piperacillin Sod/Tazobactam (Sod 3.375 gm/ Sodium Chloride) 50 mls @ 100 mls/hr IV Q6H [facility] Last Infusion: 03/20/23 09:55 Dose: Infused Documented By: MELVIN Vancomycin HCl 1,250 mg/ (Sodium Chloride) 250 mls @ 166.667 mls/hr IV Q12H [facility] Last Infusion: 03/20/23 06:29 Dose: Infused Documented By: JAYSON Insulin Glargine (Insulin Glargine,Hum.Rec.Anlog 100 Unit/Ml 10 Ml Vial) 20 unit SUBCUT BEDTIME [facility] Last Admin: 03/19/23 21:36 Dose: 20 unit Documented By: JAYSON Comments: Insulin Human Lispro (Insulin Lispro 100 Unit/Ml 3 Ml Vial) 0 unit SUBCUT QIDACHS [facility]; Protocol Last Admin: 03/20/23 08:54 Dose: Not Given Documented By: MELVIN Non-Admin Reason: No Insulin Coverage Lisinopril (Lisinopril 40 Mg Tablet) 40 mg PO DAILY [facility]; Protocol Last Admin: 03/20/23 09:04 Dose: 40 mg Documented By: MELVIN Multivitamins/Vitamin C (Multivitamin Tablet) 1 tab PO DAILY [facility] Last Admin: 03/20/23 09:04 Dose: 1 tab Documented By: MELVIN Nicotine (Nicotine 7 Mg Patch.Td24) 7 mg TRANSDERMA DAILY [facility] Last Admin: 03/20/23 09:05 Dose: 7 mg Documented By: MELVIN Nicotine Polacrilex (Nicotine Polacrilex 2 Mg Gum) 2 mg BUCCAL Q2H PRN PRN Reason: Nicotine Cravings Omeprazole (Omeprazole 20 Mg Capsule.) 20 mg PO DAILY@0630 [facility] Last Admin: 03/20/23 05:40 Dose: 20 mg Documented By: JAYSON Ondansetron HCl (Ondansetron Hcl 4 Mg/2 Ml Vial) 4 mg IVPUSH Q8H PRN PRN Reason: Nausea and Vomiting Last Admin: 03/18/23 16:44 Dose: 4 mg Documented By: JOHN PAUL Oxycodone HCl (Oxycodone Hcl Immed Release 5 Mg Tablet) 10 mg PO Q4H PRN PRN Reason: moderate pain Last Admin: 03/20/23 01:52 Dose: 10 mg Documented By: DEMETRA Pharmacy Consult (Consult Rx Vancomycin Dosing) 1 each MISCELLANE DAILY PRN PRN Reason: Consult order Sodium Chloride (0.9 % Sodium Chloride Flush 3 Ml Syringe) 3 ml IVFLUSH QSHIFT [facility] Last Admin: 03/20/23 09:04 Dose: 3 ml Documented By: MELVIN Tiotropium [place] (Tiotropium [place] 2.5 Mcg Inhaler) 2 puff INHALE RDAILY [facility] Last Admin: 03/20/23 08:35 Dose: 2 puff Documented By: KIM Labs 03/19/23 05:48 03/20/23 05:28 Labs: Laboratory Results - last 24 hr 03/19/23 03/19/23 03/19/23 13:50 16:40 20:51 Estim Creat Clear Calc Estimated GFR POC Glucose 238 H 149 H Random Vancomycin 18.3 03/20/23 03/20/23 05:28 07:46 Estim Creat Clear Calc 97.3 Estimated GFR > 60 POC Glucose 124 H Random Vancomycin Assessment and Plan (1) BKA stump complication: Status: Acute Plan d5 62yo M with PAD s/p BKA 12/21/22 that has not healed and has been repeatedly infected, including with MRSA causing bacteremia. He failed IV and PO long-term antibiotics and presented with a purulent, necrotic wound. R BKA amputation site infection - vanc + pip-bahman d5/7, BCx negative - POD2 AKA, dressing change 03/22/23 then likely discharge to [facility] - IV hydromorphone + PO oxycodone for analgesia PAD CAD ischemic cardiomyopathy chronic HFrEF - continue aspirin, statin, carvedilol, lisinopril, furosemide - no signs of fluid overload tobacco abuse - NRT DM2 - basal-bolus insulin VTE ppx - LMWH dispo - PT consulted, plan STR In my clinical judgment, the patient requires continued inpatient hospitalization for the following reasons: IV ABX, postoperative management, placement Time Spent With Patient Time: Total time managing care of this patient today __35__ minutes. Quality Stroke Does the patient have a stroke diagnosis?: No VTE Prior VTE?: No VTE Risk Level:: Medical - moderate - high VTE Device Contraindication: N/A - Device Ordered VTE Drug Contraindication: N/A - Med Ordered
[2023-03-20 11:29] LABS: Glucose, Whole Blood 180 mg/dL (60-115)
[2023-03-20] MEDS: Enoxaparin Sodium 40 MG/0.4 ML SYRINGE SUBCUT (12:36)
[2023-03-20] MEDS: Insulin Lispro 100 UNIT/ML 3 ML VIAL SUBCUT ×3 (12:40→21:58)
[2023-03-20 16:33] LABS: Glucose, Whole Blood 256 mg/dL (60-115)
[2023-03-20] MEDS: Atorvastatin Calcium 80 MG TABLET PO (20:38)
[2023-03-20 21:36] LABS: Glucose, Whole Blood 174 mg/dL (60-115)
[2023-03-20] MEDS: Insulin Glargine,Hum.rec.anlog 100 UNIT/ML 10 ML VIAL 20 UNIT SUBCUT (21:59)
[2023-03-21] MEDS: HYDROmorphone HCl 0.5 MG/0.5 ML SYRINGE IVPUSH (02:15)
[2023-03-21] MEDS: Piperacillin Sodium/Tazobactam 3.375 GM in 0.9 % Sodium Chloride 50 ML IV ×4 (02:16→19:22)
[2023-03-21 03:29] VITALS: BP 109/55; PULSE 76; RESP 18; TEMP 36.3; O2SAT 97
[2023-03-21] MEDS: vancomycin HCL 1,250 MG in 0.9 % Sodium Chloride 250 ML 166.67 MG IV ×2 (04:13→15:43)
[2023-03-21] MEDS: Omeprazole 20 MG CAPSULE.DR PO (05:51)
[2023-03-21 06:40] LABS: Creatinine Clr Calc Pharmacy 108.3; Estimated Glomerular Filt Rate > 60
[2023-03-21 07:09] VITALS: BP 114/56; PULSE 72; RESP 20; TEMP 36.2; O2SAT 97
[2023-03-21 07:41] LABS: Glucose, Whole Blood 172 mg/dL (60-115)
[2023-03-21] MEDS: Nicotine 7 MG PATCH.TD24 TRANSDERMA (08:17)
[2023-03-21] MEDS: carvediloL 25 MG TABLET PO ×2 (08:17→21:10)
[2023-03-21] MEDS: Furosemide 20 MG TABLET PO (08:17)
[2023-03-21] MEDS: lisinopriL 40 MG TABLET PO (08:17)
[2023-03-21] MEDS: Aspirin Enteric Coated 81 MG TABLET.DR PO (08:17)
[2023-03-21] MEDS: Insulin Lispro 100 UNIT/ML 3 ML VIAL SUBCUT ×2 (08:17→11:16)
[2023-03-21] MEDS: Multivitamin TABLET 1 TAB PO (08:17)
[2023-03-21] MEDS: Furosemide 40 MG TABLET PO (08:17)
[2023-03-21 08:19] VITALS: PULSE 81; RESP 18; O2SAT 93
--- NOTE | 2023-03-21 08:27 | PC.NURSE ---
PCT informed this RN of pt's POC
[2023-03-21] MEDS: Acetaminophen 325 MG TABLET 650 MG PO (08:37)
[2023-03-21] MEDS: oxyCODONE HCl Immed Release 5 MG TABLET 10 MG PO (08:37)
--- NOTE | 2023-03-21 10:29 | HO.PM.IMPN ---
Subjective Subjective Date of Service: 03/21/23 Interval History: This history was taken in [place] from the patient. Pain controlled No fever Review of Systems Review of Systems: Yes all other systems are reviewed and are negative Physical Exam Vital Signs: Vital Signs: Last Vital Signs Temp 97.2 F 03/21/23 07:09 Pulse 81 03/21/23 08:19 Resp 18 03/21/23 08:19 BP 114/56 L 03/21/23 07:09 Pulse Ox 97 03/21/23 07:09 O2 Del Method Room Air 03/21/23 07:09 O2 Flow Rate 2 03/18/23 13:43 BMI result Body Mass Index 35.3 Gen: in no acute distress HEENT: sclera anicteric, moist mucus membranes Neck: supple Lungs: clear to auscultation bilaterally Heart: regular rate and rhythm, no murmurs Abd: soft, non-tender, non-distended Ext: s/p R AKA with dry dressing Skin: warm/well-perfused Neuro: alert and oriented x3, no focal findings Psych: appropriate affect Objective Data Active Medications Acetaminophen (Acetaminophen 325 Mg Tablet) 650 mg PO Q6H PRN PRN Reason: Pain, Mild (Pain Scale 1-3) Last Admin: 03/21/23 08:37 Dose: 650 mg Documented By: PATRICA Albuterol Sulfate (Albuterol Sulfate (0.083%) 2.5 Mg/3 Ml Vial.Neb) 2.5 mg INHALE Q4H PRN PRN Reason: Shortness of Breath Albuterol/Ipratropium (Albuterol/Iprat 2.5/0.5mg 3 Ml Ampul.Neb) 3 ml INHALE Q6H PRN PRN Reason: shortness of breath Artificial Tears (Artificial Tears 15 Ml Drops) 2 drop EYE-BOTH QID PRN PRN Reason: Dry Eye(S) Aspirin (Aspirin Enteric Coated 81 Mg Tablet.) 81 mg PO DAILY [facility] Last Admin: 03/21/23 08:17 Dose: 81 mg Documented By: PATRICA Atorvastatin Calcium (Atorvastatin Calcium 80 Mg Tablet) 80 mg PO BEDTIME [facility] Last Admin: 03/20/23 20:38 Dose: 80 mg Documented By: JAYSON Carvedilol (Carvedilol 25 Mg Tablet) 25 mg PO BID [facility]; Protocol Last Admin: 03/21/23 08:17 Dose: 25 mg Documented By: PATRICA Dextrose (Dextrose 50 % 25 Gm/50 Ml Syringe) 25 gm IVPUSH Q15M PRN; Protocol PRN Reason: per Hypoglycemia Standing Ord. Enoxaparin Sodium (Enoxaparin Sodium 40 Mg/0.4 Ml Syringe) 40 mg SUBCUT Q24H [facility] Last Admin: 03/20/23 12:36 Dose: 40 mg Documented By: MELVIN Furosemide (Furosemide 40 Mg Tablet) 40 mg PO DAILY [facility]; Protocol Last Admin: 03/21/23 08:17 Dose: 40 mg Documented By: PATRICA Furosemide (Furosemide 20 Mg Tablet) 20 mg PO DAILY [facility]; Protocol Last Admin: 03/21/23 08:17 Dose: 20 mg Documented By: PATRICA Glucose (Glucose Gel 15 Gm Gel..Gram.) 15 gm PO Q15M PRN; Protocol PRN Reason: per Hypoglycemia Standing Ord. Hydromorphone HCl (Hydromorphone Hcl 0.5 Mg/0.5 Ml Syringe) 0.5 mg IVPUSH Q4H PRN; Protocol PRN Reason: severe pain Last Admin: 03/21/23 02:15 Dose: 0.5 mg Documented By: JAYSON Piperacillin Sod/Tazobactam (Sod 3.375 gm/ Sodium Chloride) 50 mls @ 100 mls/hr IV Q6H [facility] Last Infusion: 03/21/23 09:07 Dose: Infused Documented By: PATRICA Vancomycin HCl 1,250 mg/ (Sodium Chloride) 250 mls @ 166.667 mls/hr IV Q12H [facility] Last Infusion: 03/21/23 06:23 Dose: Infused Documented By: JAYSON Insulin Glargine (Insulin Glargine,Hum.Rec.Anlog 100 Unit/Ml 10 Ml Vial) 20 unit SUBCUT BEDTIME [facility] Last Admin: 03/20/23 21:59 Dose: 20 unit Documented By: JAYSON Insulin Human Lispro (Insulin Lispro 100 Unit/Ml 3 Ml Vial) 0 unit SUBCUT QIDACHS [facility]; Protocol Last Admin: 03/21/23 08:17 Dose: 2 unit Documented By: PATRICA Lisinopril (Lisinopril 40 Mg Tablet) 40 mg PO DAILY [facility]; Protocol Last Admin: 03/21/23 08:17 Dose: 40 mg Documented By: PATRICA Multivitamins/Vitamin C (Multivitamin Tablet) 1 tab PO DAILY [facility] Last Admin: 03/21/23 08:17 Dose: 1 tab Documented By: PATRICA Nicotine (Nicotine 7 Mg Patch.Td24) 7 mg TRANSDERMA DAILY [facility] Last Admin: 03/21/23 08:17 Dose: 7 mg Documented By: PATRICA Nicotine Polacrilex (Nicotine Polacrilex 2 Mg Gum) 2 mg BUCCAL Q2H PRN PRN Reason: Nicotine Cravings Omeprazole (Omeprazole 20 Mg Capsule.Dr) 20 mg PO DAILY@0630 [facility] Last Admin: 03/21/23 05:51 Dose: 20 mg Documented By: JAYSON Ondansetron HCl (Ondansetron Hcl 4 Mg/2 Ml Vial) 4 mg IVPUSH Q8H PRN PRN Reason: Nausea and Vomiting Last Admin: 03/18/23 16:44 Dose: 4 mg Documented By: JOHN PAUL Oxycodone HCl (Oxycodone Hcl Immed Release 5 Mg Tablet) 10 mg PO Q4H PRN PRN Reason: moderate pain Last Admin: 03/21/23 08:37 Dose: 10 mg Documented By: PATRICA Pharmacy Consult (Consult Rx Vancomycin Dosing) 1 each MISCELLANE DAILY PRN PRN Reason: Consult order Sodium Chloride (0.9 % Sodium Chloride Flush 3 Ml Syringe) 3 ml IVFLUSH QSHIFT [facility] Last Admin: 03/21/23 09:22 Dose: Not Given Documented By: PATRICA Non-Admin Reason: See Note Tiotropium [place] (Tiotropium [place] 2.5 Mcg Inhaler) 2 puff INHALE RDAILY [facility] Last Admin: 03/21/23 08:18 Dose: 2 puff Documented By: KIM Labs 03/19/23 05:48 03/21/23 05:21 Labs: Laboratory Results - last 24 hr 03/20/23 03/20/23 03/20/23 11:22 16:29 21:28 Estim Creat Clear Calc Estimated GFR POC Glucose 180 H 256 H 174 H 03/21/23 03/21/23 05:21 07:12 Estim Creat Clear Calc 108.3 Estimated GFR > 60 POC Glucose 172 H Assessment and Plan (1) BKA stump complication: Status: Acute Plan d6 62yo M with PAD s/p BKA 12/21/22 that has not healed and has been repeatedly infected, including with MRSA causing bacteremia. He failed IV and PO long-term antibiotics and presented with a purulent, necrotic wound. R BKA amputation site infection - vanc + pip-bahman , BCx negative - AKA done 03/18/23, Dr Dia to do dressing change 03/22/23 then likely discharge to [facility] - IV hydromorphone + PO oxycodone for analgesia PAD CAD ischemic cardiomyopathy chronic HFrEF - continue aspirin, statin, carvedilol, lisinopril, furosemide - no signs of fluid overload tobacco abuse - NRT DM2 - basal-bolus insulin VTE ppx - LMWH dispo - PT consulted, plan [facility] In my clinical judgment, the patient requires continued inpatient hospitalization for the following reasons: IV ABX, postoperative management, placement Time Spent With Patient Time: Total time managing care of this patient today ____ minutes. Quality Stroke Does the patient have a stroke diagnosis?: No VTE Prior VTE?: No VTE Risk Level:: Medical - moderate - high VTE Device Contraindication: N/A - Device Ordered VTE Drug Contraindication: N/A - Med Ordered
[2023-03-21 11:07] LABS: Glucose, Whole Blood 192 mg/dL (60-115)
[2023-03-21] MEDS: Enoxaparin Sodium 40 MG/0.4 ML SYRINGE SUBCUT (11:16)
[2023-03-21] MEDS: Sennosides/Docusate Sodium TABLET 2 TAB PO ×2 (15:03→21:11)
[2023-03-21] MEDS: polyethylene glycoL 3350 17 GM POWD.PACK PO (15:03)
[2023-03-21] MEDS: Lactulose 20 GM/30 ML SOLUTION PO (15:03)
[2023-03-21] MEDS: HYDROmorphone HCl 0.5 MG/0.5 ML SYRINGE 0.25 MG IVPUSH ×2 (15:49→22:42)
[2023-03-21 15:51] LABS: Vancomycin Random 19.3 mcg/mL (15-20)
--- NOTE | 2023-03-21 15:59 | HE.PHANOTE ---
Vanco trough 19.3. auc of 505, cont same dose
[2023-03-21 16:23] VITALS: BP 119/54; PULSE 60; RESP 18; TEMP 36.1; O2SAT 94
[2023-03-21 16:45] LABS: Glucose, Whole Blood 122 mg/dL (60-115)
[2023-03-21 19:10] VITALS: BP 131/71; PULSE 79; RESP 18; TEMP 36.1; O2SAT 99
[2023-03-21] MEDS: oxyCODONE HCl Immed Release 5 MG TABLET PO (19:23)
[2023-03-21] MEDS: 0.9 % Sodium Chloride Flush 3 ML SYRINGE IVFLUSH (19:24)
[2023-03-21 21:02] LABS: Glucose, Whole Blood 130 mg/dL (60-115)
[2023-03-21] MEDS: Insulin Glargine,Hum.rec.anlog 100 UNIT/ML 10 ML VIAL 20 UNIT SUBCUT (21:10)
[2023-03-21] MEDS: Atorvastatin Calcium 80 MG TABLET PO (21:11)
[2023-03-22] VITALS (9 sets, daily range): BP systolic 114–133; BP diastolic 54–73; PULSE 60–69; RESP 16–32; TEMP 36–36.9; O2SAT 96–100
[2023-03-22] MEDS: oxyCODONE HCl Immed Release 5 MG TABLET PO ×3 (00:04→15:29)
--- NOTE | 2023-03-22 00:07 | PC.NURSE ---
pt has bright red urine in the urinal, pt said, it's been 2-3 days. gradually scrotum has more swelling. notified. no new order at this time. will monitor s/s or any changes.
[2023-03-22] MEDS: Piperacillin Sodium/Tazobactam 3.375 GM in 0.9 % Sodium Chloride 50 ML IV ×2 (01:19→09:10)
[2023-03-22] MEDS: Calcium Carbonate 750 MG TAB.CHEW PO (03:14)
[2023-03-22] MEDS: vancomycin HCL 1,250 MG in 0.9 % Sodium Chloride 250 ML 166.67 MG IV (03:20)
[2023-03-22] MEDS: HYDROmorphone HCl 0.5 MG/0.5 ML SYRINGE 0.25 MG IVPUSH ×2 (04:59→12:30)
[2023-03-22] MEDS: Omeprazole 20 MG CAPSULE.DR PO (05:43)
[2023-03-22 06:22] LABS: Creatinine Clr Calc Pharmacy 98.6; Estimated Glomerular Filt Rate > 60
--- NOTE | 2023-03-22 07:00 | HE.PHANOTE ---
DEMARIO PRINCE MOST RECENT TROUGH WAS 19.3, CONSIDER LOWERING DOSE TO 1000MG Q12H NOW WITH LEVEL DUE @1400 TOMORROW SUNDAY
[2023-03-22 07:41] LABS: Glucose, Whole Blood 115 mg/dL (60-115)
[2023-03-22] MEDS: Nicotine 7 MG PATCH.TD24 TRANSDERMA (09:08)
[2023-03-22] MEDS: Acetaminophen 325 MG TABLET 650 MG PO ×2 (09:08→21:08)
[2023-03-22] MEDS: lisinopriL 40 MG TABLET PO (09:09)
[2023-03-22] MEDS: Furosemide 20 MG TABLET PO (09:09)
[2023-03-22] MEDS: Furosemide 40 MG TABLET PO (09:09)
[2023-03-22] MEDS: Multivitamin TABLET 1 TAB PO (09:09)
[2023-03-22] MEDS: carvediloL 25 MG TABLET PO ×2 (09:09→21:08)
[2023-03-22] MEDS: 0.9 % Sodium Chloride Flush 3 ML SYRINGE IVFLUSH ×2 (09:23→15:25)
[2023-03-22 11:26] LABS: Hematocrit 31.4 % (42.0-52.0); Hemoglobin 9.8 g/dl (14.0-18.0); Mean Corpuscular HGB Conc 31.2 g/dl (31.0-36.0); Mean Corpuscular Hemoglobin 29.6 pg (27.0-33.0); Mean Corpuscular Volume 94.9 fL (80.0-98.0); Mean Platelet Volume 10.6 fL (9.4-12.4); Platelet Count 260 X10*3/uL (160-400); Red Blood Count 3.31 X10*6/uL (4.60-5.80); Red Cell Distribution Width 19.1 % (11.0-16.0); White Blood Count 10.4 X10*3/uL (4.8-10.8)
[2023-03-22 11:50] LABS: Glucose, Whole Blood 156 mg/dL (60-115)
[2023-03-22 12:01] LABS: Anion Gap 11 (12-20); Blood Urea Nitrogen 10 mg/dL (9-16); Calcium 8.4 mg/dL (8.4-10.2); Carbon Dioxide 24 mmol/L (22-29); Chloride 105 mmol/L (96-108); Creatinine Clr Calc Pharmacy 97.3; Estimated Glomerular Filt Rate > 60; Glucose Random 153 mg/dL (60-115); Potassium 3.5 mmol/L (3.3-5.1); Sodium 136 mmol/L (135-145)
--- NOTE | 2023-03-22 12:13 | HO.VASCPN ---
Subjective Subjective Date of Service: 03/22/23 Patient reports: no new complaints and feels better Interval history: 62-year-old gentleman status post right AKA now for postoperative follow-up. Doing relatively well over the weekend. Pain well controlled. Reports he is feeling significantly better. Now for routine postop follow-up. Physical Exam Vital Signs: Vital Signs: Last Vital Signs Temp 96.9 F 03/22/23 07:11 Pulse 68 03/22/23 08:00 Resp 16 03/22/23 08:00 BP 116/59 L 03/22/23 07:11 Pulse Ox 100 03/22/23 07:11 O2 Del Method Room Air 03/22/23 07:11 O2 Flow Rate 2 03/18/23 13:43 BMI result Body Mass Index 35.3 Const: General: cooperative, healthy appearing and no acute distress Orientation/consciousness: oriented to person, oriented to place and oriented to time HEENT: Head: Yes normal to inspection Neck: Carotids: no bruits Chest: Chest palpation & inspection: normal inspection of the chest Resp: Effort & Inspection: normal respiratory effort and able to speak in complete sentences Auscultation: clear to auscultation bilaterally Cardio: Rate: regular rate Heart sounds: S1 normal heart sound present and S2 normal heart sound present GI: Inspection: Yes normal to inspection Skin: Other: Right stump dressing changed. Incision line healing extremely well. General skin exam: no rashes or lesions noted Wounds: amputation site Neuro: General: oriented to person, oriented to place, oriented to time and CN's II-XI intact bilaterally Extrem: General: Yes normal to inspection, Yes full ROM and Yes no clubbing, cyanosis or edema Psych: Appearance: grossly normal and well kempt Speech and movement: Normal speech and movement present Affect: normal affect Progress Note: A&P Assessment and plan (1) Right above-knee amputee: Status: Acute Assessment and Plan: In short patient is status post right AKA. Stable from my perspective for discharge. He can see me in approximately 2 weeks after discharge for suture and staple removal. Thank you for allowing me to participate in his care. Time Spent With Patient Time: Total time managing care of this patient today ____ minutes. Procedures Date of Service Date of Service: 03/22/23 Quality Stroke Does the patient have a stroke diagnosis?: No VTE Prior VTE?: No VTE Risk Level:: Medical - moderate - high VTE Device Contraindication: N/A - Device Ordered VTE Drug Contraindication: N/A - Med Ordered
[2023-03-22] MEDS: Insulin Lispro 100 UNIT/ML 3 ML VIAL SUBCUT ×2 (12:15→21:09)
[2023-03-22] MEDS: Furosemide 40 MG/4 ML VIAL IVPUSH (12:15)
[2023-03-22 13:29] LABS: Appearance Urine Clear; Color Urine Red; Glucose Urine UA Negative (Negative); Leukocyte Esterase Urine Trace (Negative); Nitrite Urine Negative (Negative); PH 6.5 (5.0-9.0); Specific Gravity - Urine <= 1.005 (1.005-1.025); UMIC TRIGGER UACC YES; Urine Blood Large (3+) (Negative); Urine Ketones Negative (Negative); Urine Protein Trace mg/dL (Neg-Trace)
[2023-03-22 13:47] LABS: Bacteria Urine None Seen (None Seen); Hyaline Casts Urine 0-2 /LPF (0-2); RBC Urine >20 /HPF (0-2); Squamous Epithelial Cell Urine 0-2 /HPF (0-2); WBC Urine 0-5 /HPF (0-5)
[2023-03-22] MEDS: vancomycin HCL 1,000 MG in 0.9 % Sodium Chloride 250 ML 270 MG IV (15:29)
--- NOTE | 2023-03-22 15:42 | P.PNIM_ITS ---
Subjective Subjective Date of Service: 03/22/23 Interval History: Complaining of pain right Aka surgical site, no nausea, no vomiting, tolerating diet also complaining of hematuria since yesterday, denies urinary urgency, no frequency, give prior history of hematuria, has history of BPH, tolerating diet no nausea no vomiting no abdominal pain. Review of Systems All other system reviewed and negative Physical Exam 2 Vital Signs: Vital Signs: Last Vital Signs Temp 98.5 F 03/22/23 12:00 Pulse 60 03/22/23 12:00 Resp 18 03/22/23 12:00 BP 117/56 L 03/22/23 12:00 Pulse Ox 98 03/22/23 12:00 O2 Del Method Room Air 03/22/23 12:00 O2 Flow Rate 2 03/18/23 13:43 BMI result Body Mass Index 35.3 Const: Other: Gen: in no acute distress HEENT: sclera anicteric, moist mucus membranes Neck: supple Lungs: clear to auscultation bilaterally Heart: regular rate and rhythm, no murmurs Abd: soft, non-tender, non-distended Ext: s/p R AKA with dry dressing, bilateral upper extremity swelling scrotal swelling Skin: warm/well-perfused Neuro: alert and oriented x3, no focal findings Psych: appropriate affect Objective Data Active Medications Acetaminophen (Acetaminophen 325 Mg Tablet) 650 mg PO Q6H PRN PRN Reason: Pain, Mild (Pain Scale 1-3) Last Admin: 03/22/23 09:08 Dose: 650 mg Documented By: CARLOS Albuterol Sulfate (Albuterol Sulfate (0.083%) 2.5 Mg/3 Ml Vial.Neb) 2.5 mg INHALE Q4H PRN PRN Reason: Shortness of Breath Albuterol/Ipratropium (Albuterol/Iprat 2.5/0.5mg 3 Ml Ampul.Neb) 3 ml INHALE Q6H PRN PRN Reason: shortness of breath Artificial Tears (Artificial Tears 15 Ml Drops) 2 drop EYE-BOTH QID PRN PRN Reason: Dry Eye(S) Aspirin (Aspirin Enteric Coated 81 Mg Tablet.) 81 mg PO DAILY [facility] Last Admin: 03/22/23 09:10 Dose: Not Given Documented By: CARLOS Non-Admin Reason: hematuria Atorvastatin Calcium (Atorvastatin Calcium 80 Mg Tablet) 80 mg PO BEDTIME [facility] Last Admin: 03/21/23 21:11 Dose: 80 mg Documented By: AMIE Carvedilol (Carvedilol 25 Mg Tablet) 25 mg PO BID [facility]; Protocol Last Admin: 03/22/23 09:09 Dose: 25 mg Documented By: CARLOS Dextrose (Dextrose 50 % 25 Gm/50 Ml Syringe) 25 gm IVPUSH Q15M PRN; Protocol PRN Reason: per Hypoglycemia Standing Ord. Enoxaparin Sodium (Enoxaparin Sodium 40 Mg/0.4 Ml Syringe) 40 mg SUBCUT Q24H [facility] Last Admin: 03/22/23 12:23 Dose: Not Given Documented By: CARLOS Non-Admin Reason: hematuria. hold per dr. castro. Furosemide (Furosemide 40 Mg Tablet) 40 mg PO DAILY [facility]; Protocol Last Admin: 03/22/23 09:09 Dose: 40 mg Documented By: CARLOS Furosemide (Furosemide 20 Mg Tablet) 20 mg PO DAILY [facility]; Protocol Last Admin: 03/22/23 09:09 Dose: 20 mg Documented By: CARLOS Glucose (Glucose Gel 15 Gm Gel..Gram.) 15 gm PO Q15M PRN; Protocol PRN Reason: per Hypoglycemia Standing Ord. Hydromorphone HCl (Hydromorphone Hcl 0.5 Mg/0.5 Ml Syringe) 0.25 mg IVPUSH Q6H PRN; Protocol PRN Reason: severe pain Last Admin: 03/22/23 12:30 Dose: 0.25 mg Documented By: CARLOS Vancomycin HCl 1,000 mg/ (Sodium Chloride) 270 mls @ 270 mls/hr IV Q12H [facility] Last Admin: 03/22/23 15:29 Dose: 270 mls/hr Documented By: NANCY Insulin Glargine (Insulin Glargine,Hum.Rec.Anlog 100 Unit/Ml 10 Ml Vial) 20 unit SUBCUT BEDTIME [facility] Last Admin: 03/21/23 21:10 Dose: 20 unit Documented By: AMIE Insulin Human Lispro (Insulin Lispro 100 Unit/Ml 3 Ml Vial) 0 unit SUBCUT QIDACHS [facility]; Protocol Last Admin: 03/22/23 12:15 Dose: 2 unit Documented By: CARLOS Lisinopril (Lisinopril 40 Mg Tablet) 40 mg PO DAILY [facility]; Protocol Last Admin: 03/22/23 09:09 Dose: 40 mg Documented By: CARLOS Multivitamins/Vitamin C (Multivitamin Tablet) 1 tab PO DAILY [facility] Last Admin: 03/22/23 09:09 Dose: 1 tab Documented By: CARLOS Nicotine (Nicotine 7 Mg Patch.Td24) 7 mg TRANSDERMA DAILY [facility] Last Admin: 03/22/23 09:08 Dose: 7 mg Documented By: CARLOS Nicotine Polacrilex (Nicotine Polacrilex 2 Mg Gum) 2 mg BUCCAL Q2H PRN PRN Reason: Nicotine Cravings Omeprazole (Omeprazole 20 Mg Capsule.Dr) 20 mg PO DAILY@0630 [facility] Last Admin: 03/22/23 05:43 Dose: 20 mg Documented By: AMIE Ondansetron HCl (Ondansetron Hcl 4 Mg/2 Ml Vial) 4 mg IVPUSH Q8H PRN PRN Reason: Nausea and Vomiting Last Admin: 03/18/23 16:44 Dose: 4 mg Documented By: JOHN PAUL Oxycodone HCl (Oxycodone Hcl Immed Release 5 Mg Tablet) 5 mg PO Q4H PRN PRN Reason: moderate pain Last Admin: 03/22/23 15:29 Dose: 5 mg Documented By: NANCY Pharmacy Consult (Consult Rx Vancomycin Dosing) 1 each MISCELLANE DAILY PRN PRN Reason: Consult order Polyethylene Glycol (Polyethylene Glycol 3350 17 Gm Powd.Pack) 17 gm PO DAILY [facility] Last Admin: 03/22/23 09:10 Dose: Not Given Documented By: CARLOS Non-Admin Reason: Patient Refused Senna/Docusate Sodium (Sennosides/Docusate Sodium Tablet) 2 tab PO BID [facility] Last Admin: 03/22/23 09:10 Dose: Not Given Documented By: CARLOS Non-Admin Reason: Patient Refused Sodium Chloride (0.9 % Sodium Chloride Flush 3 Ml Syringe) 3 ml IVFLUSH QSHIFT [facility] Last Admin: 03/22/23 15:25 Dose: 3 ml Documented By: NANCY Tiotropium [place] (Tiotropium [place] 2.5 Mcg Inhaler) 2 puff INHALE RDAILY [facility] Last Admin: 03/22/23 07:59 Dose: 2 puff Documented By: JAY Labs 03/22/23 11:07 03/22/23 11:07 Labs: Laboratory Results - last 24 hr 03/21/23 03/21/23 03/21/23 15:22 16:19 20:58 MCV MCH MCHC RDW Plt Count MPV Absolute Nucleated RBC Nucleated RBC % (auto) Anion Gap Estim Creat Clear Calc Estimated GFR POC Glucose 122 H 130 H Random Glucose Calcium Urine Color Urine Appearance Urine pH Ur Specific [place] Urine Protein Urine Glucose (UA) Urine Ketones Urine Blood Urine Nitrite Ur Leukocyte Esterase Urine RBC Urine WBC Ur Squamous Epith Cells Urine Bacteria Hyaline Casts Random Vancomycin 19.3 03/22/23 03/22/23 03/22/23 05:19 07:15 11:07 MCV 94.9 MCH 29.6 MCHC 31.2 RDW 19.1 H Plt Count 260 MPV 10.6 Absolute Nucleated RBC 0.000 Nucleated RBC % (auto) 0.0 Anion Gap 11 L Estim Creat Clear Calc 98.6 97.3 Estimated GFR > 60 > 60 POC Glucose 115 Random Glucose 153 H Calcium 8.4 Urine Color Urine Appearance Urine pH Ur Specific [place] Urine Protein Urine Glucose (UA) Urine Ketones Urine Blood Urine Nitrite Ur Leukocyte Esterase Urine RBC Urine WBC Ur Squamous Epith Cells Urine Bacteria Hyaline Casts Random Vancomycin 03/22/23 03/22/23 11:25 12:49 MCV MCH MCHC RDW Plt Count MPV Absolute Nucleated RBC Nucleated RBC % (auto) Anion Gap Estim Creat Clear Calc Estimated GFR POC Glucose 156 H Random Glucose Calcium Urine Color Red A Urine Appearance Clear Urine pH 6.5 Ur Specific [place] <= 1.005 Urine Protein Trace Urine Glucose (UA) Negative Urine Ketones Negative Urine Blood Large (3+) H Urine Nitrite Negative Ur Leukocyte Esterase Trace H Urine RBC >20 H Urine WBC 0-5 Ur Squamous Epith Cells 0-2 Urine Bacteria None Seen Hyaline Casts 0-2 Random Vancomycin Microbiology Microbiology Results: Microbiology 03/16/23 12:11 Blood Culture - Final Blood - Venous No growth after 5 days. 03/16/23 12:13 Blood Culture - Final Blood - Venous No growth after 5 days. Assessment and Plan (1) BKA stump complication: Status: Acute Plan 62yo M with PAD s/p BKA 12/21/22 that has not healed and has been repeatedly infected, including with MRSA causing bacteremia. He failed IV and PO long-term antibiotics and presented with a purulent, necrotic wound. R BKA amputation site infection - on IV vancomycin and Zosyn day 7, blood cultures negative will DC IV antibiotics. - AKA done 03/18/23, Dr Dia change dressing this morning he feels stump looking good , continue oxycodone for pain - dc IV hydromorphone Acute hematuria history of benign prostate hypertrophy, will check urinalysis hold aspirin and Lovenox, hematocrit 31.4,follow cbc. Consult Urology if hematuria persists PAD CAD ischemic cardiomyopathy chronic HFrEF no acute exacerbation, no shortness of breath, no PND, no orthopnea - continue statin, carvedilol, lisinopril, furosemide, hold aspirin today due to hematuria - noted fluid overload with scrotal swelling and upper extremity edema ,will give additional IV Lasix. Elevate scrotum. tobacco abuse Continue nicotine patch DM2 Stable blood sugars around 150, Continue Lantus 20 units and insulin sliding scale. VTE ppx - LMWH dispo - PT consulted, plan STR In my clinical judgment, the patient requires continued inpatient hospitalization for the following reasons for hematuria and generalized edema Time Spent With Patient Time: Total time managing care of this patient today ____ minutes. Quality Stroke Does the patient have a stroke diagnosis?: No VTE Prior VTE?: No VTE Risk Level:: Medical - moderate - high VTE Device Contraindication: N/A - Device Ordered VTE Drug Contraindication: N/A - Med Ordered
--- NOTE | 2023-03-22 16:06 | MHC.CM.PN ---
REFERRALS ARE OUT FOR STR THERE WERE NO BED OFFERS ON INITIAL ROUND OF REFERRALS CM EXPANDED AND UPDATED REFERRAL
[2023-03-22] MEDS: oxyCODONE HCl Immed Release 5 MG TABLET 10 MG PO ×2 (16:15→21:08)
[2023-03-22] MEDS: Albuterol/Iprat 2.5/0.5MG 3 ML AMPUL.NEB INHALE (17:08)
[2023-03-22 17:21] LABS: Glucose, Whole Blood 158 mg/dL (60-115)
[2023-03-22 20:56] LABS: Glucose, Whole Blood 235 mg/dL (60-115)
[2023-03-22] MEDS: Atorvastatin Calcium 80 MG TABLET PO (21:08)
[2023-03-22] MEDS: Sennosides/Docusate Sodium TABLET 2 TAB PO (21:08)
[2023-03-22] MEDS: Tamsulosin HCL 0.4 MG CAPSULE PO (21:08)
[2023-03-22] MEDS: Insulin Glargine,Hum.rec.anlog 100 UNIT/ML 10 ML VIAL 20 UNIT SUBCUT (21:09)
[2023-03-23] MEDS: oxyCODONE HCl Immed Release 5 MG TABLET 10 MG PO ×4 (01:09→20:23)
[2023-03-23] MEDS: 0.9 % Sodium Chloride Flush 3 ML SYRINGE IVFLUSH ×4 (01:12→20:24)
[2023-03-23 03:14] VITALS: BP 112/56; PULSE 65; RESP 18; TEMP 36; O2SAT 98
[2023-03-23] MEDS: Omeprazole 20 MG CAPSULE.DR PO (06:08)
[2023-03-23 07:00] VITALS: BP 133/77; PULSE 65; RESP 19; TEMP 36.1; O2SAT 100
[2023-03-23 07:07] LABS: Glucose, Whole Blood 95 mg/dL (60-115)
[2023-03-23 07:29] LABS: Hematocrit 33.3 % (42.0-52.0); Hemoglobin 10.3 g/dl (14.0-18.0); Mean Corpuscular HGB Conc 30.9 g/dl (31.0-36.0); Mean Corpuscular Hemoglobin 29.3 pg (27.0-33.0); Mean Corpuscular Volume 94.6 fL (80.0-98.0); Mean Platelet Volume 10.8 fL (9.4-12.4); Platelet Count 310 X10*3/uL (160-400); Red Blood Count 3.52 X10*6/uL (4.60-5.80); Red Cell Distribution Width 18.9 % (11.0-16.0); White Blood Count 10.7 X10*3/uL (4.8-10.8)
[2023-03-23 07:42] LABS: Anion Gap 11 (12-20); Blood Urea Nitrogen 10 mg/dL (9-16); Calcium 8.6 mg/dL (8.4-10.2); Carbon Dioxide 26 mmol/L (22-29); Chloride 106 mmol/L (96-108); Creatinine Clr Calc Pharmacy 82.7; Estimated Glomerular Filt Rate > 60; Glucose Random 89 mg/dL (60-115); Potassium 3.5 mmol/L (3.3-5.1); Sodium 139 mmol/L (135-145)
[2023-03-23] MEDS: Nicotine 7 MG PATCH.TD24 TRANSDERMA (08:07)
[2023-03-23] MEDS: Acetaminophen 325 MG TABLET 650 MG PO ×3 (08:07→20:23)
[2023-03-23] MEDS: Furosemide 40 MG TABLET PO (08:08)
[2023-03-23] MEDS: lisinopriL 40 MG TABLET PO (08:08)
[2023-03-23] MEDS: Aspirin Enteric Coated 81 MG TABLET.DR PO (08:08)
[2023-03-23] MEDS: Multivitamin TABLET 1 TAB PO (08:08)
[2023-03-23] MEDS: carvediloL 25 MG TABLET PO ×2 (08:08→20:24)
[2023-03-23] MEDS: Furosemide 20 MG TABLET PO (08:09)
[2023-03-23 10:27] VITALS: BP 133/77; PULSE 65; O2SAT 100
[2023-03-23] MEDS: Enoxaparin Sodium 40 MG/0.4 ML SYRINGE SUBCUT (11:28)
[2023-03-23 11:36] LABS: Glucose, Whole Blood 119 mg/dL (60-115)
[2023-03-23] MEDS: Albuterol/Iprat 2.5/0.5MG 3 ML AMPUL.NEB INHALE (14:27)
[2023-03-23 14:30] VITALS: PULSE 69; RESP 20; O2SAT 98
[2023-03-23 16:00] VITALS: BP 121/58; PULSE 70; RESP 16; TEMP 36.3; O2SAT 97
[2023-03-23 16:44] LABS: Glucose, Whole Blood 217 mg/dL (60-115)
--- NOTE | 2023-03-23 16:47 | HO.PM.IMPN ---
Subjective Subjective Date of Service: 03/23/23 Interval History: Offers no acute complaints, good pain control at site of surgery wants to talk to case management coordinator regarding choice of rehab, no acute events overnight blood sugars stable tolerating diet no nausea no vomiting, no abdominal pain, scrotal swelling is improving, denies pain, hematuria resolved denies urinary symptoms of urgency or frequency. Review of Systems All other system reviewed and negative. Physical Exam Vital Signs: Vital Signs: Last Vital Signs Temp 97.3 F 03/23/23 16:00 Pulse 70 03/23/23 16:00 Resp 16 03/23/23 16:00 BP 121/58 L 03/23/23 16:00 Pulse Ox 97 03/23/23 16:00 O2 Del Method Room Air 03/23/23 16:00 O2 Flow Rate 2 03/18/23 13:43 BMI result Body Mass Index 35.3 Const: Other: Gen: in no acute distress HEENT: sclera anicteric, moist mucus membranes Neck: supple Lungs: clear to auscultation bilaterally Heart: regular rate and rhythm, no murmurs Abd: soft, non-tender, non-distended Ext: s/p R AKA with dry dressing, upper extremity swelling improved scrotal swelling improving Skin: warm/well-perfused Neuro: alert and oriented x3, no focal findings Psych: appropriate affect Objective Data Active Medications Acetaminophen (Acetaminophen 325 Mg Tablet) 650 mg PO Q6H PRN PRN Reason: Pain, Mild (Pain Scale 1-3) Last Admin: 03/23/23 14:12 Dose: 650 mg Documented By: CARLOS Artificial Tears (Artificial Tears 15 Ml Drops) 2 drop EYE-BOTH QID PRN PRN Reason: Dry Eye(S) Aspirin (Aspirin Enteric Coated 81 Mg Tablet.) 81 mg PO DAILY [facility] Last Admin: 03/23/23 08:08 Dose: 81 mg Documented By: CARLOS Atorvastatin Calcium (Atorvastatin Calcium 80 Mg Tablet) 80 mg PO BEDTIME [facility] Last Admin: 03/22/23 21:08 Dose: 80 mg Documented By: NANCY Carvedilol (Carvedilol 25 Mg Tablet) 25 mg PO BID [facility]; Protocol Last Admin: 03/23/23 08:08 Dose: 25 mg Documented By: CARLOS Dextrose (Dextrose 50 % 25 Gm/50 Ml Syringe) 25 gm IVPUSH Q15M PRN; Protocol PRN Reason: per Hypoglycemia Standing Ord. Enoxaparin Sodium (Enoxaparin Sodium 40 Mg/0.4 Ml Syringe) 40 mg SUBCUT Q24H [facility] Last Admin: 03/23/23 11:28 Dose: 40 mg Documented By: CARLOS Furosemide (Furosemide 40 Mg Tablet) 40 mg PO DAILY [facility]; Protocol Last Admin: 03/23/23 08:08 Dose: 40 mg Documented By: CARLOS Furosemide (Furosemide 20 Mg Tablet) 20 mg PO DAILY [facility]; Protocol Last Admin: 03/23/23 08:09 Dose: 20 mg Documented By: CARLOS Glucose (Glucose Gel 15 Gm Gel..Gram.) 15 gm PO Q15M PRN; Protocol PRN Reason: per Hypoglycemia Standing Ord. Insulin Glargine (Insulin Glargine,Hum.Rec.Anlog 100 Unit/Ml 10 Ml Vial) 20 unit SUBCUT BEDTIME [facility] Last Admin: 03/22/23 21:09 Dose: 20 unit Documented By: NANCY Insulin Human Lispro (Insulin Lispro 100 Unit/Ml 3 Ml Vial) 0 unit SUBCUT QIDACHS [facility]; Protocol Last Admin: 03/23/23 11:31 Dose: Not Given Documented By: CARLOS Non-Admin Reason: No Insulin Coverage Lisinopril (Lisinopril 40 Mg Tablet) 40 mg PO DAILY [facility]; Protocol Last Admin: 03/23/23 08:08 Dose: 40 mg Documented By: CARLOS Multivitamins/Vitamin C (Multivitamin Tablet) 1 tab PO DAILY [facility] Last Admin: 03/23/23 08:08 Dose: 1 tab Documented By: CARLOS Nicotine (Nicotine 7 Mg Patch.Td24) 7 mg TRANSDERMA DAILY [facility] Last Admin: 03/23/23 08:07 Dose: 7 mg Documented By: CARLOS Nicotine Polacrilex (Nicotine Polacrilex 2 Mg Gum) 2 mg BUCCAL Q2H PRN PRN Reason: Nicotine Cravings Omeprazole (Omeprazole 20 Mg Capsule.) 20 mg PO DAILY@0630 [facility] Last Admin: 03/23/23 06:08 Dose: 20 mg Documented By: TAWNY Ondansetron HCl (Ondansetron Hcl 4 Mg/2 Ml Vial) 4 mg IVPUSH Q8H PRN PRN Reason: Nausea and Vomiting Last Admin: 03/18/23 16:44 Dose: 4 mg Documented By: JOHN PAUL Oxycodone HCl (Oxycodone Hcl Immed Release 5 Mg Tablet) 10 mg PO Q4H PRN PRN Reason: moderate pain Last Admin: 03/23/23 14:12 Dose: 10 mg Documented By: CARLOS Pharmacy Consult (Consult Rx Vancomycin Dosing) 1 each MISCELLANE DAILY PRN PRN Reason: Consult order Polyethylene Glycol (Polyethylene Glycol 3350 17 Gm Powd.Pack) 17 gm PO DAILY [facility] Last Admin: 03/23/23 08:09 Dose: Not Given Documented By: CARLOS Non-Admin Reason: Patient Refused Senna/Docusate Sodium (Sennosides/Docusate Sodium Tablet) 2 tab PO BID [facility] Last Admin: 03/23/23 08:09 Dose: Not Given Documented By: CARLOS Non-Admin Reason: Patient Refused Sodium Chloride (0.9 % Sodium Chloride Flush 3 Ml Syringe) 3 ml IVFLUSH QSHIFT [facility] Last Admin: 03/23/23 08:09 Dose: 3 ml Documented By: CARLOS Tamsulosin HCl (Tamsulosin Hcl 0.4 Mg Capsule) 0.4 mg PO BEDTIME [facility] Last Admin: 03/22/23 21:08 Dose: 0.4 mg Documented By: NANCY Tiotropium [place] (Tiotropium [place] 2.5 Mcg Inhaler) 2 puff INHALE RDAILY [facility] Last Admin: 03/23/23 08:05 Dose: Not Given Documented By: EDI Non-Admin Reason: Patient Refused Labs 03/23/23 07:13 03/23/23 07:13 Labs: Laboratory Results - last 24 hr 03/22/23 03/22/23 03/23/23 17:17 20:52 07:03 MCV MCH MCHC RDW Plt Count MPV Absolute Nucleated RBC Nucleated RBC % (auto) Anion Gap Estim Creat Clear Calc Estimated GFR POC Glucose 158 H 235 H 95 Random Glucose Calcium Random Vancomycin 03/23/23 03/23/23 03/23/23 07:13 11:10 14:42 MCV 94.6 MCH 29.3 MCHC 30.9 L RDW 18.9 H Plt Count 310 MPV 10.8 Absolute Nucleated RBC 0.000 Nucleated RBC % (auto) 0.0 Anion Gap 11 L Estim Creat Clear Calc 82.7 Estimated GFR > 60 POC Glucose 119 H Random Glucose 89 Calcium 8.6 Random Vancomycin 15.0 03/23/23 16:36 MCV MCH MCHC RDW Plt Count MPV Absolute Nucleated RBC Nucleated RBC % (auto) Anion Gap Estim Creat Clear Calc Estimated GFR POC Glucose 217 H Random Glucose Calcium Random Vancomycin Assessment and Plan (1) BKA stump complication: Status: Acute Plan 62yo M with PAD s/p BKA 12/21/22 that has not healed and has been repeatedly infected, including with MRSA causing bacteremia. He failed IV and PO long-term antibiotics and presented with a purulent, necrotic wound. R BKA amputation site infection - finish 7 day course of IV vancomycin and Zosyn , blood cultures negative - AKA done 03/18/23, Dr Dia changed dressing he feels stump looking good , continue oxycodone for pain Acute hematuria history of benign prostate hypertrophy, hematuria resolved, UA negative continue to hold aspirin, hematocrit stable , recommend outpatient urology follow-up PAD CAD ischemic cardiomyopathy chronic HFrEF no acute exacerbation, no shortness of breath, no PND, no orthopnea - continue statin, carvedilol, lisinopril, furosemide, aspirin held due to hematuria - scrotal edema improving likely due to fluid overload, status post IV Lasix ,resume Lasix home dose tobacco abuse Continue nicotine patch DM2 Stable blood sugars around 150, Continue Lantus 20 units and insulin sliding scale. Home does 42 units of Lantus and 10 units Humalog before meals VTE ppx - LMWH dispo - PT consulted, plan STR In my clinical judgment, the patient requires continued inpatient hospitalization for the following reasons for hematuria and generalized edema Time Spent With Patient Time: Total time managing care of this patient today ____ minutes. Quality Stroke Does the patient have a stroke diagnosis?: No VTE Prior VTE?: No VTE Risk Level:: Medical - moderate - high VTE Device Contraindication: N/A - Device Ordered VTE Drug Contraindication: N/A - Med Ordered
[2023-03-23] MEDS: Insulin Lispro 100 UNIT/ML 3 ML VIAL SUBCUT ×2 (17:45→21:56)
[2023-03-23 19:59] VITALS: BP 119/57; PULSE 75; RESP 18; TEMP 36.3; O2SAT 98
[2023-03-23] MEDS: Sennosides/Docusate Sodium TABLET 2 TAB PO (20:23)
[2023-03-23] MEDS: Atorvastatin Calcium 80 MG TABLET PO (20:23)
[2023-03-23] MEDS: Tamsulosin HCL 0.4 MG CAPSULE PO (20:24)
[2023-03-23 21:22] LABS: Glucose, Whole Blood 172 mg/dL (60-115)
[2023-03-23] MEDS: Insulin Glargine,Hum.rec.anlog 100 UNIT/ML 10 ML VIAL 20 UNIT SUBCUT (21:57)
[2023-03-24] VITALS (8 sets, daily range): BP systolic 99–128; BP diastolic 51–60; PULSE 66–68; RESP 16–20; TEMP 36–36.9; O2SAT 96–99
[2023-03-24] MEDS: oxyCODONE HCl Immed Release 5 MG TABLET 10 MG PO ×5 (00:28→20:51)
[2023-03-24] MEDS: Omeprazole 20 MG CAPSULE.DR PO (05:15)
[2023-03-24 07:11] LABS: Glucose, Whole Blood 73 mg/dL (60-115)
[2023-03-24] MEDS: 0.9 % Sodium Chloride Flush 3 ML SYRINGE IVFLUSH ×3 (08:27→21:03)
[2023-03-24] MEDS: Nicotine 7 MG PATCH.TD24 TRANSDERMA (08:27)
[2023-03-24] MEDS: Aspirin Enteric Coated 81 MG TABLET.DR PO (08:29)
[2023-03-24] MEDS: Furosemide 40 MG TABLET PO (08:30)
[2023-03-24] MEDS: carvediloL 25 MG TABLET PO ×2 (08:30→20:52)
[2023-03-24] MEDS: Furosemide 20 MG TABLET PO (08:31)
[2023-03-24] MEDS: lisinopriL 40 MG TABLET PO (08:31)
[2023-03-24] MEDS: Sennosides/Docusate Sodium TABLET 2 TAB PO ×2 (08:31→20:51)
[2023-03-24] MEDS: Multivitamin TABLET 1 TAB PO (08:31)
--- NOTE | 2023-03-24 09:25 | PC.NURSE ---
Addendum entered by Filomena Silva RN 03/24/23 09:29: LLE posterior aspect Original Note:
[2023-03-24 11:04] LABS: Glucose, Whole Blood 124 mg/dL (60-115)
[2023-03-24] MEDS: Enoxaparin Sodium 40 MG/0.4 ML SYRINGE SUBCUT (11:45)
[2023-03-24] MEDS: Acetaminophen 325 MG TABLET 650 MG PO (11:45)
--- NOTE | 2023-03-24 13:03 | MHC.CM.PN ---
Addendum entered by Dominique Powers 03/24/23 15:08: [facility] has offer a STR bed for tomorrow. Patient accepts the bed. The MD has been notified. Original Note: No bed offers have been received. The bed search has been expanded. A clinical update has been sent. [facility] DP STR via BLS. CM will continue to follow for a STR bed.
--- NOTE | 2023-03-24 15:43 | MHC.CLN ---
NUTRITION DIET=DM 2200 KCALS. INTAKE USUALLY VERY GOOD. SKIN WITH R BKA AND VENOUS ULCER TO POSTERIOR LEFT LEG. NO NEW NUTRITION INTERVENTIONS AT THIS TIME.
[2023-03-24 16:14] LABS: Glucose, Whole Blood 163 mg/dL (60-115)
[2023-03-24] MEDS: Insulin Lispro 100 UNIT/ML 3 ML VIAL SUBCUT ×2 (16:55→20:54)
--- NOTE | 2023-03-24 17:24 | HO.PM.IMPN ---
Subjective Subjective Date of Service: 03/24/23 Interval History: Offers no acute complaints, good pain control at site of right AKA, no fevers no chills no other acute issues overnight tolerating diet no nausea, no vomiting ,no abdominal pain. No acute events overnight Review of Systems All other system reviewed and negative Physical Exam Vital Signs: Vital Signs: Last Vital Signs Temp 97.0 F 03/24/23 15:05 Pulse 67 03/24/23 15:05 Resp 18 03/24/23 15:05 BP 123/51 L 03/24/23 15:05 Pulse Ox 98 03/24/23 15:05 O2 Del Method Room Air 03/24/23 15:05 O2 Flow Rate 2 03/18/23 13:43 BMI result Body Mass Index 35.3 Const: Other: Gen: in no acute distress HEENT: sclera anicteric, moist mucus membranes Neck: supple Lungs: clear to auscultation bilaterally Heart: regular rate and rhythm, no murmurs Abd: soft, non-tender, non-distended Ext: s/p R AKA with dry dressing, upper extremity swelling improved scrotal swelling improving Skin: warm/well-perfused, left leg chronic stage II open wound, no surrounding redness or drainage Neuro: alert and oriented x3, no focal findings Psych: appropriate affect Objective Data Active Medications Acetaminophen (Acetaminophen 325 Mg Tablet) 650 mg PO Q6H PRN PRN Reason: Pain, Mild (Pain Scale 1-3) Last Admin: 03/24/23 11:45 Dose: 650 mg Documented By: CARLOS Artificial Tears (Artificial Tears 15 Ml Drops) 2 drop EYE-BOTH QID PRN PRN Reason: Dry Eye(S) Aspirin (Aspirin Enteric Coated 81 Mg Tablet.Dr) 81 mg PO DAILY [facility] Last Admin: 03/24/23 08:29 Dose: 81 mg Documented By: ANAHY Atorvastatin Calcium (Atorvastatin Calcium 80 Mg Tablet) 80 mg PO BEDTIME [facility] Last Admin: 03/23/23 20:23 Dose: 80 mg Documented By: MIKALA Calcium Carbonate (Calcium Carbonate 750 Mg Tab.Chew) 750 mg PO Q4H PRN PRN Reason: Heartburn Carvedilol (Carvedilol 25 Mg Tablet) 25 mg PO BID [facility]; Protocol Last Admin: 03/24/23 08:30 Dose: 25 mg Documented By: ANAHY Comments: 70 Dextrose (Dextrose 50 % 25 Gm/50 Ml Syringe) 25 gm IVPUSH Q15M PRN; Protocol PRN Reason: per Hypoglycemia Standing Ord. Enoxaparin Sodium (Enoxaparin Sodium 40 Mg/0.4 Ml Syringe) 40 mg SUBCUT Q24H [facility] Last Admin: 03/24/23 11:45 Dose: 40 mg Documented By: CARLOS Furosemide (Furosemide 40 Mg Tablet) 40 mg PO DAILY [facility]; Protocol Last Admin: 03/24/23 08:30 Dose: 40 mg Documented By: ANAHY Comments: 70 Furosemide (Furosemide 20 Mg Tablet) 20 mg PO DAILY [facility]; Protocol Last Admin: 03/24/23 08:31 Dose: 20 mg Documented By: ANAHY Comments: 70 Glucose (Glucose Gel 15 Gm Gel..Gram.) 15 gm PO Q15M PRN; Protocol PRN Reason: per Hypoglycemia Standing Ord. Insulin Glargine (Insulin Glargine,Hum.Rec.Anlog 100 Unit/Ml 10 Ml Vial) 20 unit SUBCUT BEDTIME [facility] Last Admin: 03/23/23 21:57 Dose: 20 unit Documented By: MIKALA Insulin Human Lispro (Insulin Lispro 100 Unit/Ml 3 Ml Vial) 0 unit SUBCUT QIDACHS [facility]; Protocol Last Admin: 03/24/23 16:55 Dose: 2 unit Documented By: MALICK Lisinopril (Lisinopril 40 Mg Tablet) 40 mg PO DAILY [facility]; Protocol Last Admin: 03/24/23 08:31 Dose: 40 mg Documented By: ANAHY Comments: 70 Multivitamins/Vitamin C (Multivitamin Tablet) 1 tab PO DAILY [facility] Last Admin: 03/24/23 08:31 Dose: 1 tab Documented By: ANAHY Nicotine (Nicotine 7 Mg Patch.Td24) 7 mg TRANSDERMA DAILY [facility] Last Admin: 03/24/23 08:27 Dose: 7 mg Documented By: ANAHY Nicotine Polacrilex (Nicotine Polacrilex 2 Mg Gum) 2 mg BUCCAL Q2H PRN PRN Reason: Nicotine Cravings Omeprazole (Omeprazole 20 Mg Capsule.Dr) 20 mg PO DAILY@0630 [facility] Last Admin: 03/24/23 05:15 Dose: 20 mg Documented By: MIKALA Ondansetron HCl (Ondansetron Hcl 4 Mg/2 Ml Vial) 4 mg IVPUSH Q8H PRN PRN Reason: Nausea and Vomiting Last Admin: 03/18/23 16:44 Dose: 4 mg Documented By: JOHN PAUL Oxycodone HCl (Oxycodone Hcl Immed Release 5 Mg Tablet) 10 mg PO Q4H PRN PRN Reason: moderate pain Last Admin: 03/24/23 16:17 Dose: 10 mg Documented By: MALICK Pharmacy Consult (Consult Rx Vancomycin Dosing) 1 each MISCELLANE DAILY PRN PRN Reason: Consult order Polyethylene Glycol (Polyethylene Glycol 3350 17 Gm Powd.Pack) 17 gm PO DAILY [facility] Last Admin: 03/24/23 08:33 Dose: Not Given Documented By: ANAHY Non-Admin Reason: Patient Refused Senna/Docusate Sodium (Sennosides/Docusate Sodium Tablet) 2 tab PO BID [facility] Last Admin: 03/24/23 08:31 Dose: 2 tab Documented By: ANAHY Sodium Chloride (0.9 % Sodium Chloride Flush 3 Ml Syringe) 3 ml IVFLUSH QSHIFT [facility] Last Admin: 03/24/23 16:18 Dose: 3 ml Documented By: MALICK Tamsulosin HCl (Tamsulosin Hcl 0.4 Mg Capsule) 0.4 mg PO BEDTIME [facility] Last Admin: 03/23/23 20:24 Dose: 0.4 mg Documented By: MIKALA Tiotropium [place] (Tiotropium [place] 2.5 Mcg Inhaler) 2 puff INHALE RDAILY [facility] Last Admin: 03/24/23 07:43 Dose: Not Given Documented By: EDI Non-Admin Reason: Patient Refused Labs 03/23/23 07:13 03/23/23 07:13 Labs: Laboratory Results - last 24 hr 03/23/23 03/24/23 03/24/23 21:17 07:07 10:51 POC Glucose 172 H 73 124 H 03/24/23 15:59 POC Glucose 163 H Assessment and Plan (1) BKA stump complication: Status: Acute Plan 62yo M with PAD s/p BKA 12/21/22 that has not healed and has been repeatedly infected, including with MRSA causing bacteremia. He failed IV and PO long-term antibiotics and presented with a purulent, necrotic wound. R BKA amputation site infection - finish 7 day course of IV vancomycin and Zosyn , blood cultures negative - AKA done 03/18/23, Dr Dia changed dressing he feels stump looking good , continue oxycodone for pain Acute hematuria history of benign prostate hypertrophy, hematuria resolved, UA negative continue to hold aspirin, hematocrit stable , recommend outpatient urology follow-up PAD/CAD/ischemic cardiomyopathy chronic HFrEF no acute exacerbation, no shortness of breath, no PND, no orthopnea - continue statin, carvedilol, lisinopril, furosemide, and aspirin - scrotal edema improving likely due to fluid overload, status post IV Lasix , now on Lasix home dose Stage II wound left leg continue dressing as per Dr. Dia tobacco abuse Continue nicotine patch DM2 Stable blood sugars around 150, Continue Lantus 20 units and insulin sliding scale. Home does 42 units of Lantus and 10 units Humalog before meals VTE ppx - LMWH dispo - PT consulted, plan STR In my clinical judgment, the patient requires continued inpatient hospitalization for the following reasons for hematuria and generalized edema Time Spent With Patient Time: Total time managing care of this patient today ____ minutes. Quality Stroke Does the patient have a stroke diagnosis?: No VTE Prior VTE?: No VTE Risk Level:: Medical - moderate - high VTE Device Contraindication: N/A - Device Ordered VTE Drug Contraindication: N/A - Med Ordered
[2023-03-24 20:39] LABS: Glucose, Whole Blood 164 mg/dL (60-115)
[2023-03-24] MEDS: Atorvastatin Calcium 80 MG TABLET PO (20:51)
[2023-03-24] MEDS: Insulin Glargine,Hum.rec.anlog 100 UNIT/ML 10 ML VIAL 20 UNIT SUBCUT (20:52)
[2023-03-24] MEDS: Tamsulosin HCL 0.4 MG CAPSULE PO (20:52)
[2023-03-24] MEDS: Albuterol/Iprat 2.5/0.5MG 3 ML AMPUL.NEB INHALE (22:55)
[2023-03-25] VITALS: RESP 20
[2023-03-25 04:00] VITALS: BP 117/57; PULSE 60; RESP 16; TEMP 36.1; O2SAT 97
[2023-03-25] MEDS: oxyCODONE HCl Immed Release 5 MG TABLET 10 MG PO ×4 (04:21→18:14)
[2023-03-25] MEDS: Omeprazole 20 MG CAPSULE.DR PO (05:41)
[2023-03-25 07:22] LABS: Glucose, Whole Blood 109 mg/dL (60-115)
[2023-03-25 07:27] VITALS: BP 141/65; PULSE 66; RESP 16; TEMP 36.8; O2SAT 97
[2023-03-25] MEDS: Sennosides/Docusate Sodium TABLET 2 TAB PO (08:50)
[2023-03-25] MEDS: Aspirin Enteric Coated 81 MG TABLET.DR PO (08:50)
[2023-03-25] MEDS: carvediloL 25 MG TABLET PO (08:50)
[2023-03-25] MEDS: Multivitamin TABLET 1 TAB PO (08:51)
[2023-03-25] MEDS: Furosemide 40 MG TABLET PO (08:51)
[2023-03-25] MEDS: polyethylene glycoL 3350 17 GM POWD.PACK PO (08:51)
[2023-03-25] MEDS: Furosemide 20 MG TABLET PO (08:51)
[2023-03-25] MEDS: 0.9 % Sodium Chloride Flush 3 ML SYRINGE IVFLUSH (08:51)
[2023-03-25] MEDS: lisinopriL 40 MG TABLET PO (08:51)
[2023-03-25] MEDS: Nicotine 7 MG PATCH.TD24 TRANSDERMA (08:51)
[2023-03-25] MEDS: Calcium Carbonate 750 MG TAB.CHEW PO (08:58)
[2023-03-25] MEDS: Acetaminophen 325 MG TABLET 650 MG PO ×2 (08:59→18:15)
[2023-03-25 11:06] LABS: Glucose, Whole Blood 233 mg/dL (60-115)
[2023-03-25 11:15] VITALS: BP 100/60; PULSE 56; RESP 16; TEMP 36.7; O2SAT 97
[2023-03-25] MEDS: Insulin Lispro 100 UNIT/ML 3 ML VIAL SUBCUT ×2 (11:24→16:33)
[2023-03-25] MEDS: Enoxaparin Sodium 40 MG/0.4 ML SYRINGE SUBCUT (11:24)
--- NOTE | 2023-03-25 11:47 | P.DS_ITS ---
DS: Providers Provider Date of Service: 03/25/23 Date of admission: 03/16/23 15:58 Primary care physician: Loli Augustin MD Consults: 03/16/23 15:43 Consult to Vascular Surgery Routine Consulting Provider: [facility] V[facility] Services Reason for consultation: failed bka DS: Diagnosis Discharge Diagnosis (1) BKA stump complication: Status: Acute DS: Summary Hospital Course Hospital Course: Date of Service: 03/16/23 Chief Complaint: infected BKA 62yo M with DM2, PAD, ischemic cardiomyopathy/HFrEF, and CAD s/p R BKA 12/21/22 for nonhealing ulcers. He was readmitted 01/14-01/22/23 for infection at the site associated with MRSA bacteremia. He underwent debridement and VAC placement 01/19/23. He completed 4 weeks of IV vancomycin via PICC but then developed cellulitis of the buttocks, for which he was admitted 02/22-02/25/23. Compliance with the wound VAC has been questionable. He was re-admitted again 03/05-03/09/23 for osteomyelitis of the BKA stump and discharged on doxycycline plus amoxicill in-clavaulanate. He was sent in by his [facility] due to concern of necrotic tissue and purulent discharge at the R BKA site. His vascular surgeon has previously recommended an AKA but he had declined; now he is practically begging for it. He complains of severe pain and discharge at the site for the past 3 days but no fever, chills, chest pain, or vomiting. He was given IV morphine and IV hydromorphone and 1 dose of IV piperacillin- tazobactam. Dr Dia, his vascular surgeon, was contacted and again recommends AKA. hospital course: 62yo M with PAD s/p BKA 12/21/22 that has not healed and has been repeatedly infected, including with MRSA causing bacteremia. He failed IV and PO long-term antibiotics and presented with a purulent, necrotic wound. and admitted to [facility] with a diagnosis of R BKA amputation site infection, patient treated with IV vancomycin and Zosyn, blood cultures x2 came back negative patient underwent AKA 03/18/23, Dr Dia changed dressings,and stump looking good , continue oxycodone for pain Acute hematuria history of benign prostate hypertrophy, hematuria resolved, UA negative continue to hold aspirin, hematocrit stable , recommend outpatient urology follow-up PAD/CAD/ischemic cardiomyopathy, chronic HFrEF no acute exacerbation, no shortness of breath, no PND, no orthopnea, continue statin, carvedilol, lisinopril, furosemide, and aspirin scrotal edema improving likely due to fluid overload, status post IV Lasix , now on Lasix home dose Stage II wound left leg continue dressing as per Dr. Dia tobacco abuse Continue nicotine patch DM2 Stable blood sugars around 150, Continue Lantus 20 units and insulin sliding scale. Home does 42 units of Lantus and 10 units Humalog before meals Time Spent with Patient Time attestation: Total time managing care of this patient today ____ minutes. Discharge coordination time: Greater than 30 minutes Quality: Safe Use of Opioids Does Pt have an Active Cancer Diagnosis on the Problem List?: No Quality: Stroke Does the patient have a stroke diagnosis?: No Physical Exam Vital Signs: Vital Signs: Last Vital Signs Temp 98.1 F 03/25/23 11:15 Pulse 56 03/25/23 11:15 Resp 16 03/25/23 11:15 BP 100/60 03/25/23 11:15 Pulse Ox 97 03/25/23 11:15 O2 Del Method Room Air 03/25/23 11:15 O2 Flow Rate 2 03/18/23 13:43 BMI result Body Mass Index 35.3 Const: Other: Gen: in no acute distress HEENT: sclera anicteric, moist mucus membranes Neck: supple Lungs: clear to auscultation bilaterally Heart: regular rate and rhythm, no murmurs Abd: soft, non-tender, non-distended Ext: R AKA with dry dressing, upper extremity swelling improved scrotal swelling improving Skin: warm/well-perfused, left leg chronic stage II open wound, no surrounding redness or drainage Neuro: alert and oriented x3, no focal findings Psych: appropriate affect DS: Data Data Completed and Pending Completed studies during hospitalization [Text1]: Pending at discharge 03/18/23 12:25 Surgical [PTH] Routine Procedures Detachment at Right Lower Leg, Mid, Open Approach (12/21/22) Drainage of Perineum Skin, External Approach (12/10/20) Excision of Right Upper Leg Muscle, Open Approach (01/14/23) Insertion of Infusion Device into Superior Vena Cava, Percutaneous Approach (01/14/23) Introduction of Anesthetic Agent into Peripheral Nerves and Plexi, Percutaneous Approach (01/14/23) Ultrasonography of Superior Vena Cava, Guidance (01/14/23) Labs on day of discharge: Laboratory Results - last 24 hr 03/24/23 03/24/23 03/25/23 15:59 20:28 07:09 POC Glucose 163 H 164 H 109 03/25/23 10:56 POC Glucose 233 H Discharge Plan Discharge Anticipated Discharge Date/Time: 03/25/23 11:40 Patient Disposition: Xfer Inpatient Rehab Fac Discharge Diagnosis: right BKA amputation site infection status post AKA acute hematuria resolved stage II left leg wound continue dressing diabetes mellitus on insulin Referrals: [facility] [Other] - 1 Week Loli Augustin MD [Primary Care Provider] - 2 days Discharge Medications: New nicotine (polacrilex) 2 mg Gum 2 mg buccal Q2H PRN (Reason: Nicotine Cravings) Qty: 30 0RF tamsulosin 0.4 mg Capsule 0.4 mg PO BEDTIME Qty: 30 0RF nicotine 7 mg/24 hr Patch 24 Hour 7 mg transdermal DAILY Qty: 30 0RF oxycodone 10 mg tablet 10 mg PO Q6H PRN (Reason: severe pain (scale score 7-10)) Qty: 14 0RF Rx Instructions: Partial Fill upon patient request. Continued lisinopril 40 mg tablet 40 mg PO DAILY carvedilol 25 mg tablet 25 mg PO BID Qty: 180 1RF Rx Instructions: must administer with a meal/food atorvastatin 80 mg tablet 80 mg PO BEDTIME aspirin 81 mg tablet,delayed release (DR/EC) 81 mg PO DAILY pantoprazole 20 mg tablet,delayed release (DR/EC) 20 mg PO DAILY Spiriva Respimat 2.5 mcg/actuation mist 2 puff INHALATION DAILY Combivent Respimat 20-100 mcg/actuation mist 1 puff INHALATION Q6H PRN (Reason: Shortness Of Breath) multivitamin Tablet 1 tab PO DAILY Artificial Tears([id number]) 1-0.2-0.2 % Drops 2 drp OPHTHALMIC (EYE) QID PRN (Reason: Dry Eye(S)) albuterol sulfate 2.5 mg /3 mL (0.083 %) solution for nebulization 2.5 mg inhalation Q4H PRN (Reason: SOB) furosemide 20 mg tablet 20 mg PO DAILY furosemide [Lasix] 40 mg tablet 40 mg PO DAILY metformin 1,000 mg tablet 1,000 mg PO BIDWM Changed insulin lispro [Humalog KwikPen Insulin] 100 unit/mL insulin pen 5 unit subcut TIDAC Qty: 15 0RF insulin glargine [Lantus Solostar U-100 Insulin] 100 unit/mL (3 mL) insulin pen 20 unit subcut BEDTIME Qty: 15 0RF Discontinued amoxicillin-pot clavulanate 875-125 mg tablet 1 tab PO BID Qty: 28 0RF doxycycline hyclate 100 mg tablet 100 mg PO BID Qty: 28 0RF Discharge Orders: Discharge Order (Routine); Ordered 03/25/23 Ordered By: Joel Mckeon Diet: Diabetic diet Activity on Discharge: As tolerated Stand Alone Forms: Patient Portal Discharge page Activity Restrictions/Additional Instructions: Take your medications as prescribed. Wound care upon discharge: xeroform, 4x4 and Kerlix wrap to be changed daily. Please call Dr. Dia at [phone] for 2 week follow up for suture and staple removal Wound care for left posterior calf - allyvn dressing Care Plan Goals: follow diabetic diet monitor blood sugar closely Health Concerns: take all medications as prescribed Plan of Treatment: outpatient follow-up with primary care physician call for appointment outpatient follow-up with Dr. Dia as above Assessment: as above Patient Instructions: Cellulitis (ED), Surgical Site Infections (ED)
--- NOTE | 2023-03-25 13:06 | P.CDIM_ITS ---
PROVIDER RESPONSE TEXT: To clarify, the appropriate diagnosis supported by the clinical indicators: Obesity Due to excess calories QUERY TEXT: PHYSICIAN'S DOCUMENTATION REQUEST Date of Query: 03/23/2023 08:35 AM EDT Patient Name: Reji Trejo Admit Date: 03/16/2023 Dear Joel Mckeon, A review of the medical record indicates additional documentation may be needed. Please review below and update the documentation accordingly. Clinical Indicators: Height and weight: BMI 35.3 Obesity class II 5ft 4in 93.4kg If possible, please provide an associated diagnosis related to the BMI, such as: Overweight Obesity Due to excess calories Obesity Due to other cause Specify the other cause Other (explain)Clinically unable to determine (explain)Thank you, Anika Zheng, CCS, CDIS Use of terms such as suspected, likely, concern for, or probable (associated with a specific diagnosi s that is being evaluated, monitored, or treated as if it exists) are acceptable and can be coded in the inpatient se tting, when documented at the time of discharge. Please use your independent medical judgment in providing your response. THIS QUERY IS PART OF THE PERMANENT MEDICAL RECORD
[2023-03-25 16:00] VITALS: BP 106/54; PULSE 67; RESP 18; TEMP 36.2; O2SAT 98
[2023-03-25 16:27] LABS: Glucose, Whole Blood 187 mg/dL (60-115)
== END 2023-03-25 20:00 | DRG 305 ==
LOC: HO.ED 15:26 → HO.EDOVER 16:15 → HO.S3 18:42
PROVIDERS: Physician Assistant; Surgery Vascular Surgery; Admitting Provider Family Medicine; Emergency Provider Student in an Organized Health Care Education/Training Program; PCP Family Medicine; Visit Provider Hospitalist
PROC: 0Y6C0Z2 Detachment at Right Upper Leg, Mid, Open Approach (ICD-10-PCS; CPT 27590; principal; 2023-03-18 10:50)
DX: T87.43 Infection of amputation stump, right lower extremity (principal); I50.22 Chronic systolic (congestive) heart failure; E11.51 Type 2 diabetes mellitus with diabetic peripheral angiopathy without gangrene; I25.10 Atherosclerotic heart disease of native coronary artery without angina pectoris; N40.0 Benign prostatic hyperplasia without lower urinary tract symptoms; R31.9 Hematuria, unspecified; I25.5 Ischemic cardiomyopathy; E66.09 Other obesity due to excess calories; L97.929 Non-pressure chronic ulcer of unspecified part of left lower leg with unspecified severity; Z68.35 Body mass index [BMI] 35.0-35.9, adult; Z91.199 Patient's noncompliance with other medical treatment and regimen due to unspecified reason; Z23 Encounter for immunization; Z86.14 Personal history of Methicillin resistant Staphylococcus aureus infection; Z79.4 Long term (current) use of insulin; Z79.82 Long term (current) use of aspirin; Z79.84 Long term (current) use of oral hypoglycemic drugs; Z79.899 Other long term (current) drug therapy
CPT/HCPCS: 36415; 73560; 80048; 80053; 80202; 81001; 81003; 82565; 82947; 83605; 83735; 85025; 85027; 85652; 86140; 86850; 86900; 86901; 87040; 88307; 88311; 90686; 94640; 97162; 97530; 99285; J1170; J1650; J1940; J2270; J2371; J2405; J2543; J2795; J3010; J3370; J3371

== ENCOUNTER → 2023-03-16 15:58 | Outpatient (BNV) | payer MEDICAID, SELFPAY | PROVIDERS: Admitting Provider Family Medicine; Emergency Provider Student in an Organized Health Care Education/Training Program; PCP Family Medicine; Visit Provider Surgery Vascular Surgery | DX: Z89.611 Acquired absence of right leg above knee (principal) | CPT/HCPCS: 27596; 99024 ==

== ENCOUNTER → 2023-03-16 15:58 | Outpatient (BNV) | payer MEDICAID, SELFPAY | PROVIDERS: Admitting Provider Family Medicine; Emergency Provider Student in an Organized Health Care Education/Training Program; PCP Family Medicine; Visit Provider Family Medicine | DX: T87.43 Infection of amputation stump, right lower extremity (principal) | CPT/HCPCS: 99223; 99232; 99233; 99239 ==

== ENCOUNTER 2023-04-06 10:17 | Outpatient (AMB) | payer MEDICAID, SELFPAY ==
--- NOTE | 2023-04-06 10:20 | MHC.OFFVIS ---
Intake Intake Visit Reasons: 2 week follow up amp Intake Note: pt here for a s/p right leg above knee amputation .pt says he is doing well and has no pain Caterers Helper Required: Yes Caterers Helper Name: mariposa youssef Information Interpreted: clinical only Allergies No Known Allergies Allergy (Verified 04/06/23 10:26) HPI 2 week follow up amp HPI Details Complex 62-year-old gentleman presents for follow-up status post right AKA. He appears to be doing fairly well. No interval issues. He is in a facility. Reports pain is well controlled. Now for routine postop follow-up. [facility] Medical History Infection of amputation site of lower extremity BKA stump complication Below-knee amputation of right lower extremity BPH (benign prostatic hyperplasia) Cardiomyopathy CAD (coronary artery disease) History of peripheral vascular disease Coronary artery disease Cardiomyopathy Essential hypertension Type 2 diabetes mellitus with unspecified complications Abscess, perineum PAD (peripheral artery disease) Asthma High cholesterol HTN (hypertension) Diabetes Surgical History History of surgical removal of pilonidal cyst Hx of hand surgery Hx of hand surgery History of cardiac cath S/P angiogram of extremity Hx of varicose vein stripping Family History Father No problems noted. Mother Diabetes HTN (hypertension) Sister No problems noted. Sister Diabetes HTN (hypertension) Sister No problems noted. Social History Household Members: None Housing: Apartment Housing Other:: elderly housing Are you a primary clinical care manager to a significant other at home: No Do you presently have visiting nurse or other home services: Yes Alcohol intake: never Patient Tobacco Use Status: Never used Tobacco Tobacco use type: Cigarette Cigarette Packs Per Day: 0.5 Cigarettes Per Day: 5 Years Smoked: 15+/- Second Hand Smoke Exposure: No Advance Directives Date on File: 12/10/20 service: No Current occupational status: disabled Review of Systems Const All systems reviewed & are unremarkable except as noted in HPI and below Reports no additional complaints ENT Reports Normal hearing present Card Denies chest pain, Denies chest pain at rest, Denies chest pain with activity and Denies pedal edema Resp Denies cough GI Denies abdominal pain Musc Denies abnormal gait, Denies muscle cramps and Denies radiating pain into limb Skin/Breast Denies skin ulcer and Denies wounds Neuro Reports Normal hearing present and Denies abnormal gait Psych Reports no additional complaints Physical Exam Const General: cooperative, healthy appearing and comfortable Orientation/consciousness: oriented to person, oriented to place and oriented to time HEENT Head: Yes normal to inspection Neck Neck: Yes normal visual inspection Carotids: no bruits Chest Chest palpation & inspection: normal inspection of the chest Resp Effort & Inspection: normal respiratory effort and able to speak in complete sentences Auscultation: clear to auscultation bilaterally, no crackles, no rales, no rhonchi and no wheezes Cardio Rate: regular rate Rhythm: regular rhythm Heart sounds: S1 normal heart sound present and S2 normal heart sound present Bruits: no carotid bruits Peripheral pulses: Peripheral pulses 2+ throughout GI Inspection: Yes normal to inspection Skin Other: Right AKA stump well healing. Sutures and rangel removed. Mild erythema. Wounds: amputation site Hair: normal Neuro General: oriented to person, oriented to place and oriented to time Cranial nerves: Yes CN's II-XII intact bilaterally and Yes Normal hearing present Cognition (Neuro): normal cognition Motor exam (neuro): 5/5 motor strength present throughout Extrem Other: venous exam: No significant superficial varicosities or spider telangiectasias, minimal edema General: No clubbing, No cyanosis and No edema Psych Appearance: grossly normal Mental Status: mental status grossly normal Speech and movement: Normal speech and movement present Assessment & Plan Assessment & Plan (1) Right above-knee amputee: Code(s): Z89.611 - Acquired absence of right leg above knee Plan: In short patient is doing extremely well status post right AKA. Will schedule for 2 week follow-up. There is some mild erythema which is concerning and will start on 10 days of Keflex. Patient will follow up with us in approximately 2 weeks time. Thank you for allowing us to assist in his care. If there are any questions or concerns please do not hesitate to contact us. Coding Level of Care Code Est Pt Level 4 (71573) Diagnoses Right above-knee amputee Z89.611
== END 2023-04-06 10:37 | disposition home or self-care (01) ==
PROVIDERS: PCP Family Medicine; Visit Provider Surgery Vascular Surgery
DX: Z89.611 Acquired absence of right leg above knee (principal)
CPT/HCPCS: 99024

== ENCOUNTER → 2023-04-06 10:17 | Outpatient (BNVA) | payer MEDICAID, SELFPAY | PROVIDERS: PCP Family Medicine; Visit Provider Surgery Vascular Surgery | DX: Z47.81 Encounter for orthopedic aftercare following surgical amputation (principal); Z89.611 Acquired absence of right leg above knee | CPT/HCPCS: 99212 ==

== ENCOUNTER 2023-04-27 13:59 | Outpatient (AMB) | payer MEDICAID, SELFPAY ==
--- NOTE | 2023-04-27 14:09 | A.OFFVIS_ITS ---
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 Appears to be doing well with it. All erythema and discomfort have totally resolved. Now presents for routine follow-up. [facility] Medical History (Updated 04/28/23 @ 12:54 by Justin Dia MD) PAD (peripheral artery disease) Infection of amputation site of lower extremity BKA stump complication Below-knee amputation of right lower extremity BPH (benign prostatic hyperplasia) Cardiomyopathy CAD (coronary artery disease) History of peripheral vascular disease Coronary artery disease Cardiomyopathy Essential hypertension Type 2 diabetes mellitus with unspecified complications Abscess, perineum Asthma High cholesterol HTN (hypertension) Diabetes Surgical History History of surgical removal of pilonidal cyst Hx of hand surgery Hx of hand surgery History of cardiac cath S/P angiogram of extremity Hx of varicose vein stripping Family History Father No problems noted. Mother Diabetes HTN (hypertension) Sister No problems noted. Sister Diabetes HTN (hypertension) Sister No problems noted. Social History Household Members: None Housing: Apartment Housing Other:: elderly housing Are you a primary wound care nurse to a significant other at home: No Do you presently have visiting nurse or other home services: Yes Alcohol intake: never Patient Tobacco Use Status: Never used Tobacco Tobacco use type: Cigarette Cigarette Packs Per Day: 0.5 Cigarettes Per Day: 5 Years Smoked: 15+/- Second Hand Smoke Exposure: No Advance Directives Date on File: 12/10/20 service: No Current occupational status: disabled Review of Systems Const All systems reviewed & are unremarkable except as noted in HPI and below Reports no additional complaints ENT Reports Normal hearing present Card Denies chest pain, Denies chest pain at rest, Denies chest pain with activity and Denies pedal edema Resp Denies cough GI Denies abdominal pain Musc Denies abnormal gait, Denies muscle cramps and Denies radiating pain into limb Skin/Breast Denies skin ulcer and Denies wounds Neuro Reports Normal hearing present and Denies abnormal gait Psych Reports no additional complaints Physical Exam Const General: cooperative, healthy appearing and comfortable Orientation/consciousness: oriented to person, oriented to place and oriented to time HEENT Head: Yes normal to inspection Neck Neck: Yes normal visual inspection Carotids: no bruits Chest Chest palpation & inspection: normal inspection of the chest Resp Effort & Inspection: normal respiratory effort and able to speak in complete sentences Auscultation: clear to auscultation bilaterally, no crackles, no rales, no rhonchi and no wheezes Cardio Rate: regular rate Rhythm: regular rhythm Heart sounds: S1 normal heart sound present and S2 normal heart sound present Bruits: no carotid bruits Peripheral pulses: Peripheral pulses 2+ throughout GI Inspection: Yes normal to inspection Skin Other: Right AKA stump healed Wounds: amputation site Hair: normal Neuro General: oriented to person, oriented to place and oriented to time Cranial nerves: Yes CN's II-XII intact bilaterally and Yes Normal hearing pres ent Cognition (Neuro): normal cognition Motor exam (neuro): 5/5 motor strength present throughout Extrem Other: venous exam: No significant superficial varicosities or spider telangiectasias, minimal edema General: No clubbing, No cyanosis and No edema Psych Appearance: grossly normal Mental Status: mental status grossly normal Speech and movement: Normal speech and movement present Assessment & Plan Assessment & Plan (1) Right above-knee amputee: Code(s): Z89.611 - Acquired absence of right leg above knee Plan: Stump healed and will speak plan for prosthetic fitting. He will start with a fire crew worker wrap. We will place order for this. (2) PAD (peripheral artery disease): Comment: 01/24/2020 plasty left peroneal, stent left SFA, plasty left common iliac 09/07/2022 - diagnostic angiogram Code(s): I73.9 - Peripheral vascular disease, unspecified Plan: Left leg appears to be doing relatively well with no ulcerations. He will require surveillance arterial ultrasound in approximately 3 months time. Orders: Orders US arterial duplex LE LT 3 Months I73.9 - Peripheral vascular disease, unspecified Coding Level of Care Code Est Pt Level 3 (42756) Diagnoses Right above-knee amputee Z89.611 PAD (peripheral artery disease) I73.9
== END 2023-04-27 14:43 | disposition home or self-care (01) ==
PROVIDERS: PCP Family Medicine; Visit Provider Surgery Vascular Surgery
DX: Z89.611 Acquired absence of right leg above knee (principal); I73.9 Peripheral vascular disease, unspecified
CPT/HCPCS: 99024

== ENCOUNTER → 2023-04-27 13:59 | Outpatient (BNVA) | payer MEDICAID, SELFPAY | PROVIDERS: PCP Family Medicine; Visit Provider Surgery Vascular Surgery | DX: I73.9 Peripheral vascular disease, unspecified (principal); Z89.611 Acquired absence of right leg above knee | CPT/HCPCS: 99212 ==

== ENCOUNTER 2023-06-04 17:03 | Inpatient (IN) | payer MEDICAID, SELFPAY ==
--- NOTE | ~2023-06-04 | US_ITS ---
EXAMINATION: US VENOUS ULTRASOUND WITH DOPPLER LOWER EXTREMITY, LEFT CLINICAL INFORMATION: Left lower extremity pain and edema. COMPARISON: None available. TECHNIQUE: Ultrasound of the deep veins is performed from the hip to the calf with compression sonography and color and pulse Doppler assessment. Spectral analysis with color-flow imaging is performed. FINDINGS: There is normal venous compression and respiratory variation and augmented flow. The visualized common femoral vein, superficial femoral vein, profunda femoral vein, popliteal vein, and the visualized trifurcation region shows no evidence of deep venous thrombosis. The left peroneal vein is not seen. There is no significant popliteal fossa cyst. If the patient's symptoms persist, followup ultrasound in 5 days 7 days might be of value to exclude proximal propagation from a non-visualized calf vein. US/US venous duplex LE LT IMPRESSION: No DVT demonstrated in the left lower extremity.
--- NOTE | ~2023-06-04 | XR_ITS ---
EXAMINATION: XR CHEST CLINICAL INFORMATION: Dyspnea. COMPARISON: Chest radiograph 01/18/2023. TECHNIQUE: Frontal view of the chest was obtained. FINDINGS: Stable prominence of the cardiomediastinal silhouette. Increased diffuse interstitial prominence. Mild streaky opacities in the retrocardiac region. No pleural effusion or pneumothorax. No acute osseous findings. XR/XR chest 1V IMPRESSION: Findings suggestive of small airways disease or atypical infectious/inflammatory process with increased diffuse bronchial wall thickening. Streaky opacities in the retrocardiac region are in favor to represent subsegmental atelectasis.
[2023-06-04 17:10] VITALS: BP 133/54; BP 162/98; PULSE 94; PULSE 99; RESP 18; TEMP 36.3; O2SAT 100; O2SAT 99; BMI 33.9
--- NOTE | 2023-06-04 17:34 | ECG_ITS ---
Test Reason : FALL Blood Pressure : / mmHG Vent. Rate : 096 BPM Atrial Rate : 096 BPM P-R Int : 170 ms QRS Dur : 150 ms QT Int : 426 ms P-R-T Axes : 066 -48 115 degrees QTc Int : 538 ms Sinus rhythm with Premature atrial complexes Possible Left atrial enlargement Left axis deviation Left bundle branch block Abnormal ECG When compared with ECG of 16-DEC-2021 22:15, Premature atrial complexes are now Present Left bundle branch block is now Present Minimal criteria for Inferior infarct are no longer Present Referred By: Anastasiya Gould Electronically Signed By:GLEN JAIN MD
--- NOTE | 2023-06-04 17:39 | ED.EXTPRO ---
HPI - Extremity Problem General Chief complaint: Fall Stated complaint: Edema on left foot. Elevated glucose on scene. Time Seen by Provider: 06/04/23 17:17 Source: patient, old records reviewed and diplomatic interpreter/translator Mode of arrival: EMS Limitations: no limitations History of Present Illness HPI Narrative: 62 yo fmale with PMH of PAD, DM, R AKA, cellulitis, osteo, BPH, asthma, HLD, here with c/o 1 month of LLE worsening edema, now weeping lesions, orthopnea and difficulty breathing. Did fall in apartment today, called for help no prolonged down time no headstrike no LOC. States this has worsened since last visit with Ifeoma. Complaint: extremity swelling Onset (ago): month(s) (1) Pain Consistency: intermittent Location: left and lower extremity Quality: aching Radiation: none Relieving factors: rest Exacerbating factors: walking Associated symptoms: shortness of breath and other (orthopnea, dyspnea, GUZMAN) Context: history of peripheral vascular disease Related Data Home Medications Medication Instructions Recorded Confirmed aspirin 81 mg tablet,delayed 81 mg PO DAILY 12/10/20 03/16/23 release atorvastatin 80 mg tablet 80 mg PO BEDTIME 12/10/20 03/16/23 lisinopril 40 mg tablet 40 mg PO DAILY 03/23/22 03/16/23 metformin 1,000 mg tablet 1,000 mg PO BIDWM 08/18/22 03/16/23 ipratropium 20 mcg-albuterol 100 1 puff inhalation Q6H PRN 11/14/22 03/16/23 mcg/actuation mist for inhalation Shortness Of Breath (Combivent Respimat) pantoprazole 20 mg tablet,delayed 20 mg PO DAILY 11/14/22 03/16/23 release tiotropium bromide 2.5 2 puff inhalation DAILY 11/14/22 03/16/23 mcg/actuation mist for inhalation (Spiriva Respimat) albuterol sulfate 2.5 mg/3 mL 2.5 mg inhalation Q4H PRN SOB 12/21/22 03/16/23 (0.083 %) solution for nebulization furosemide 20 mg tablet 20 mg PO DAILY 12/21/22 03/16/23 furosemide 40 mg tablet (Lasix) 40 mg PO DAILY 12/21/22 03/16/23 multivitamin 1 tab PO DAILY 01/14/23 03/16/23 peg [id number] 1 2 drp ophthalmic (eye) QID PRN Dry 01/14/23 03/16/23 %-0.2 %-0.2 % eye drops Eye(S) (Artificial Tears ([id number])) Previous Rx's Medication Instructions Recorded carvedilol 25 mg tablet 25 mg PO BID #180 tabs 07/10/22 insulin glargine 100 unit/mL (3 20 unit (0.2 mL) subcut BEDTIME 03/23/23 mL) subcutaneous pen (Lantus #15 mL Solostar U-100 Insulin) insulin lispro 100 unit/mL 5 unit (0.05 mL) subcut TIDAC #15 03/23/23 subcutaneous pen (Humalog KwikPen mL (U-100) Insulin) nicotine (polacrilex) 2 mg gum 2 mg buccal Q2H PRN Nicotine 03/23/23 Cravings #30 ea nicotine 7 mg/24 hr daily 7 mg transdermal DAILY #30 ea 03/23/23 transdermal patch tamsulosin 0.4 mg capsule 0.4 mg PO BEDTIME #30 caps 03/23/23 oxycodone 10 mg tablet 10 mg PO Q6H PRN severe pain 03/25/23 (scale score 7-10) #14 tabs Allergies Allergy/AdvReac Type Severity Reaction Status Date / Time No Known Allergies Allergy Verified 04/27/23 14:10 Review of Systems Review of Systems: Constitutional : No Fever, No Chills ENT/Mouth : No sore throat, No Rhinorrhea, No Swallowing Difficulty Eyes: No Eye Pain, No Swelling, No Redness Cardiovascular : No Chest Pain, positive SOB, pos Orthopnea, positive Edema Respiratory : No Cough, No Sputum, No Wheezing, positive dyspnea Gastrointestinal : No Nausea, No Vomiting, No Diarrhea, No abdominal Pain, No Hematochezia, No Melena Genitourinary : No Dysuria, No Urinary Frequency, No Hematuria Musculoskeletal : No joint pain, No Myalgias Skin : pos Skin Lesions, No rash Neuro : No Weakness, No Numbness, No Dizziness, No Headache Psych : No Anxiety/Panic, No Depression Heme/Lymph: No Bruising, No Lymphadenopathy Endocrine : No Polyuria, No Polydipsia All other systems reviewed and are negative PMFSH Past Medical History Attestation statement: The following information was validated with the patient. Source: old records reviewed Medical History PAD (peripheral artery disease) Infection of amputation site of lower extremity BKA stump complication Below-knee amputation of right lower extremity BPH (benign prostatic hyperplasia) Cardiomyopathy CAD (coronary artery disease) History of peripheral vascular disease Coronary artery disease Cardiomyopathy Essential hypertension Type 2 diabetes mellitus with unspecified complications Abscess, perineum Asthma High cholesterol HTN (hypertension) Diabetes Surgical History History of surgical removal of pilonidal cyst Hx of hand surgery Hx of hand surgery History of cardiac cath S/P angiogram of extremity Hx of varicose vein stripping Family History Family History Father No problems noted. Mother Diabetes HTN (hypertension) Sister No problems noted. Sister Diabetes HTN (hypertension) Sister No problems noted. Social History Social History Household Members: None Housing: Apartment Housing Other:: elderly housing Are you a primary child care team lead to a significant other at home: No Do you presently have visiting nurse or other home services: Yes Alcohol intake: never Comment: Refused bed and chair alarm. Patient Tobacco Use Status: Never used Tobacco Tobacco use type: Cigarette Cigarette Packs Per Day: 0.5 Cigarettes Per Day: 5 Years Smoked: 15+/- Smoked in Last 30 Days: Yes Second Hand Smoke Exposure: No Use of substances other than those prescribed or required for medical reasons: No Advance Directives: Yes Advance Directives on File: Yes Advance Directives Date on File: 12/10/20 service: No Current occupational status: disabled Physical Exam Vital Signs: Vital Signs: Last Vital Signs Temp 97.2 F 06/04/23 18:24 Pulse 94 06/04/23 18:56 Resp 20 06/04/23 18:56 BP 136/58 L 06/04/23 18:56 Pulse Ox 96 06/04/23 18:24 O2 Del Method Room Air 06/04/23 18:24 BMI result Body Mass Index 33.9 Appearance: Alert. Oriented X3. No acute distress. Eyes: Pupils equal, round and reactive to light. ENT: Pharynx normal. Neck: Normal inspection. Neck supple. CVS: Normal heart rate and rhythm. Pulses normal. Respiratory: Mild respiratory distress - tachypnea. Breath sounds rales both bases Abdomen: Soft and nontender. pitting edema lower abdomen Skin: Skin warm and dry. Normal skin color. Normal skin turgor. Extremities: 2+ pitting edema up entire leg, no warmth no redness open weeping lesions no purulence, foot is cooler to the touch but not cold. Neuro: Oriented X 3. No motor deficit. No sensory deficit. Course Course Course Narrative: suspect lactic acidosis from metformin Medications Administered Generic Name Dose Route Start Last Admin Trade Name Freq PRN Reason Stop Dose Admin Sodium Chloride 250 mls @ 250 mls/hr 06/04/23 19:00 06/04/23 18:55 Ns IV 06/04/23 19:59 250 mls/hr .Q1H KARI Administration Discontinued Medications Generic Name Dose Route Start Last Admin Trade Name Freq PRN Reason Stop Dose Admin Furosemide 40 mg 06/04/23 17:33 06/04/23 17:55 Furosemide 40 Mg/4 Ml Vial IVPUSH 06/04/23 17:34 40 mg STAT STA Administration Protocol Piperacillin Sod/Tazobactam 50 mls @ 100 mls/hr 06/04/23 18:21 06/04/23 18:41 Sod 3.375 gm/ Sodium Chloride IV 06/04/23 18:50 100 mls/hr ONCE ONE Administration Medical Decision Making Medical Decision Making [facility] Narrative: 62 yo fmale with PMH of PAD, DM, R AKA, cellulitis, osteo, BPH, asthma, HLD,here with anasarca and rales - leg is swollen with weeping lesions I suspect volume overload vs DVT there is no redness or warmth no purulence it does not look infected. Will obtain labs, CXR, DVT and arterial studies start on IV lasix. Likely admit - his exam is changed from his vascular visit in April per notes. Given hx of osteo and cellulitis with R amputation will start on empiric antibiotics. Differential Diagnosis Differential Diagnoses: The differential diagnosis associated with the presentation includes CHF, edema, possible cellulitis Admission/Observation Consideration of admission/observation: Escalation of care including admission/observation considered admit for IV diuresis and further workup Consult Healthcare Provider Management of the patient was discussed with: Hospitalist (will admit) Lab Data MDM Lab Attestation statement: I reviewed the patient's lab results. 06/04/23 17:51 06/04/23 17:50 Labs: Lab Results 06/04/23 06/04/23 Range/Units 17:50 17:51 WBC 12.7 H (4.8-10.8) X10*3/uL RBC 4.25 L D (4.60-5.80) X10*6/uL Hgb 11.6 L (14.0-18.0) g/dl Hct 38.5 L (42.0-52.0) % MCV 90.6 (80.0-98.0) fL MCH 27.3 (27.0-33.0) pg MCHC 30.1 L (31.0-36.0) g/dl RDW 16.4 H (11.0-16.0) % Plt Count 300 (160-400) X10*3/uL MPV 9.9 (9.4-12.4) fL Immature Gran % (Auto) 0.4 (0.0-0.4) % Neut % (Auto) 79.6 H (45-73) % Lymph % (Auto) 10.2 L (20-40) % [place]eman % (Auto) 8.7 (2-11) % Eos % (Auto) 0.7 (0-4) % Baso % (Auto) 0.4 (0-2) % Lymph # (Auto) 1.3 (1.2-4.9) X10*3/uL [place] # (Auto) 1.1 (0.1-1.2) X10*3/uL Eos # (Auto) 0.1 (0.0-0.4) X10*3/uL Baso # (Auto) 0.1 (0.0-0.2) X10*3/uL Abs Immat Gran (auto) 0.05 H (0.00-0.03) X10*3/uL Absolute Neuts (auto) 10.1 H (2.0-8.3) x10*3/uL Absolute Nucleated RBC 0.000 (0.0-0.012) X10*3/uL Nucleated RBC % (auto) 0.0 (0.0-0.2) /100WBC PT 17.0 H (11.1-13.3) SEC INR 1.4 H (0.9-1.1) Sodium 140 (135-145) mmol/L Potassium 3.8 (3.3-5.1) mmol/L Chloride 105 (96-108) mmol/L Carbon Dioxide 26 (22-29) mmol/L Anion Gap 13 (12-20) BUN 14 (9-16) mg/dL Creatinine 0.93 (0.5-1.4) mg/dL Estim Creat Clear Calc 86.7 Estimated GFR > 60 Random Glucose 288 H (60-115) mg/dL Lactic Acid 3.2 H* (0.5-2.0) mmol/L Calcium 8.7 (8.4-10.2) mg/dL Magnesium 2.2 (1.6-2.6) mg/dL Total Bilirubin 0.5 (0.0-1.0) mg/dL Direct Bilirubin 0.3 (0.0-0.5) mg/dL AST 9 (5-37) U/L ALT 10 (0-40) U/L Alkaline Phosphatase 118 H (39-117) U/L Total Creatine Kinase 38 (38-174) U/L Troponin I High Sens 23.6 (<3.5-35.0) ng/L C-Reactive Protein 3.69 H (< or = 0.50) mg/dL B-Natriuretic Peptide 2929 H (<100) pg/mL Total Protein 7.2 (6.5-8.0) g/dL Albumin 3.4 L (3.5-5.0) g/dL Independent Interpretation I performed an independent interpretation of an: EKG, Plain X-Ray and Ultrasound Interpretation: Rate: 96 Rhythm: NSR [place]: left, LVH Normal P waves. Normal NEFTALY. LBBB ST T wave : no [place], inverted t waves I and aVL, no [place] qTC: prolonged prior studies: LBBB new The study has been interpreted contemporaneously by me. . Radiology Impression Discussion of test interpretation with radiology: I have reviewed the radiologist's reading. External Record Review External record reviewed: Inpatient record Discharge Plan Discharge Clinical Impression: Acidosis, lactic Cellulitis Qualifiers: Site of cellulitis: extremity Site of cellulitis of extremity: lower extremity Laterality: left Qualified Code(s): L03.116 - Cellulitis of left lower limb CHF (congestive heart failure) Qualifiers: Heart failure type: unspecified Heart failure chronicity: acute on chronic Qualified Code(s): I50.9 - Heart failure, unspecified Elevated WBC count Qualifiers: Leukocytosis type: unspecified Qualified Code(s): D72.829 - Elevated white blood cell count, unspecified Patient Disposition: Admitted As Inpatient
--- OUTSIDE RECORDS SUMMARY | 2023-06-04 17:48 | XMS_ITS | Continuity of Care Document ---
Author Name Unknown Organization [facility] Address [address] [place] [id number]- Care Team Providers Care Fountain Manager Name Role Phone Loli Augustin MD Primary Care Physician Encounter [facility] [place] Date(s): 12/29/22 - 04/28/23 [facility] [address] [place] [id number]- Attending Physician: Nikko Johnson MD Admitting Physician: Nikko Johnson MD Referring Physician: Loli Augustin MD Allergies, Adverse Reactions, Alerts No Known [...] 06/18/22 17:28:00 EST, Route to Pharmacy Electronically, [facility]/pharmacy #[id number], Partial fill upon patient request if the [...] Name: Demetria MABRY , Loli Barillas Position: [facility] Outreach Member Role: PCP Address: Address: [address] [facility] [address] [place] [address]- Care Team Related Persons Name: HENRY TORRES Address: home [address] [place] [address] Name: JUAN GROVE
--- OUTSIDE RECORDS SUMMARY | 2023-06-04 17:48 | XMS_ITS | Continuity of Care Document ---
Author Name Unknown Organization [facility] Address [address] [place] [phone]- Care Team Providers Care Framing And Hanging Name Role Phone Loli Augustin MD Primary Care Physician Encounter [facility] [place] Date(s): 03/29/23 - 04/28/23 [facility] [address] [place] [phone]- Attending Physician: Sangeeta Taylor Admitting Physician: Sangeeta Taylor Referring Physician: Sangeeta Taylor Allergies, Adverse Reactions, Alerts No Known Allergies [...] 875 mg-125 mg oral tablet TOME EVIE KIMMIEA MURPHY VECES AL D A Start [...] 06/18/22 17:28:00 EST, Route to Pharmacy Electronically, [facility]/pharmacy #[id number], Partial fill upon patient request if the [...] Name: Demetria MABRY , Loli Barillas Position: [facility] Outreach Member Role: PCP Address: Address: [address] [facility] [address] [place] [address]- Care Team Related Persons Name: HENRY TORRES Address: home [address] [place] [address] Name: JUAN GROVE
[2023-06-04] MEDS: Furosemide 40 MG/4 ML VIAL IVPUSH (17:55)
[2023-06-04 17:58] LABS: MANUAL DIFF FLAG NO
[2023-06-04 17:59] LABS: Basophils Absolute Auto 0.1 X10*3/uL (0.0-0.2); Basophils Percent Auto 0.4 % (0-2); Eosinophils Absolute Auto 0.1 X10*3/uL (0.0-0.4); Eosinophils Percent Auto 0.7 % (0-4); Hematocrit 38.5 % (42.0-52.0); Hemoglobin 11.6 g/dl (14.0-18.0); Imm Gran Abs Auto 0.05 X10*3/uL (0.00-0.03); Imm Gran Pct Auto 0.4 % (0.0-0.4); Lymphocytes Absolute Auto 1.3 X10*3/uL (1.2-4.9); Lymphocytes Percent Auto 10.2 % (20-40); Mean Corpuscular HGB Conc 30.1 g/dl (31.0-36.0); Mean Corpuscular Hemoglobin 27.3 pg (27.0-33.0); Mean Corpuscular Volume 90.6 fL (80.0-98.0); Mean Platelet Volume 9.9 fL (9.4-12.4); Monocytes Absolute Auto 1.1 X10*3/uL (0.1-1.2); Monocytes Percent Auto 8.7 % (2-11); Neutrophils Absolute Auto 10.1 x10*3/uL (2.0-8.3); Neutrophils Percent Auto 79.6 % (45-73); Platelet Count 300 X10*3/uL (160-400); Red Blood Count 4.25 X10*6/uL (4.60-5.80); Red Cell Distribution Width 16.4 % (11.0-16.0); White Blood Count 12.7 X10*3/uL (4.8-10.8)
[2023-06-04 18:10] LABS: INTERNATIONAL NORM RATIO 1.4 (0.9-1.1)
[2023-06-04 18:17] LABS: Lactic Acid 3.2 mmol/L (0.5-2.0)
[2023-06-04 18:19] LABS: Alanine Aminotransferase 10 U/L (0-40); Albumin Level 3.4 g/dL (3.5-5.0); Alkaline Phosphatase 118 U/L (39-117); Anion Gap 13 (12-20); Aspartate Amino Transferase 9 U/L (5-37); Bilirubin Direct 0.3 mg/dL (0.0-0.5); Bilirubin Total 0.5 mg/dL (0.0-1.0); Blood Urea Nitrogen 14 mg/dL (9-16); C Reactive Protein 3.69 mg/dL (< or = 0.50); Calcium 8.7 mg/dL (8.4-10.2); Carbon Dioxide 26 mmol/L (22-29); Chloride 105 mmol/L (96-108); Creatinine Clr Calc Pharmacy 86.7; Estimated Glomerular Filt Rate > 60; Glucose Random 288 mg/dL (60-115); Magnesium 2.2 mg/dL (1.6-2.6); Potassium 3.8 mmol/L (3.3-5.1); Sodium 140 mmol/L (135-145); Total Protein 7.2 g/dL (6.5-8.0)
[2023-06-04 18:23] LABS: B Type Natriuretic Peptide 2929 pg/mL (<100)
[2023-06-04 18:24] VITALS: BP 128/63; PULSE 96; RESP 16; TEMP 36.2; O2SAT 96
[2023-06-04 18:25] LABS: Troponin-I High Sensitivity 23.6 ng/L (<3.5-35.0)
--- NOTE | 2023-06-04 18:27 | MHC.EDTECH ---
Patient was biba from home ,ekg taken and was read by Provider ,vitals taken and Pt was change into hospital attire .
[2023-06-04] MEDS: Piperacillin Sodium/Tazobactam 3.375 GM in 0.9 % Sodium Chloride 50 ML IV (18:41)
[2023-06-04] MEDS: 0.9 % Sodium Chloride 250 ML IV (18:55)
[2023-06-04 18:56] VITALS: BP 136/58; PULSE 94; RESP 20
[2023-06-04 19:56] LABS: Reflex Lactate? Lactic Acid Added
[2023-06-04 20:00] VITALS: BP 143/50; PULSE 90; RESP 20; O2SAT 99
--- NOTE | 2023-06-04 20:48 | PHA.MEDREC ---
Pharmacy Consult ? Medication Reconciliation Pharmacy has completed the medication reconciliation. Used rn neonatal. Patient is a poor historian. Could only confirm he was on combivent, a blood pressure pill , a cholesterol pill , and an acid reflux pill . Used pharmacy claims however these claims are out of day, 90 day supplies picked up back in November. He was also able to confirm he is no longer on metformin
[2023-06-04 21:18] LABS: ~Lactic Acid-LAB USE ONLY 2.7 mmol/L (0.5-2.0)
[2023-06-04] MEDS: Morphine Sulfate 2 MG/ML CARTRIDGE IVPUSH (21:30)
[2023-06-04] MEDS: vancomycin/NS 2,000 MG/500 ML PLAST..BAG 250 MG IV (21:34)
[2023-06-04 22:00] VITALS: BP 117/72; PULSE 83; RESP 20; O2SAT 96
[2023-06-04 22:36] LABS: Reflex Lactate? 2 Y
[2023-06-04] MEDS: Morphine Sulfate 4 MG/ML CARTRIDGE IVPUSH (22:51)
--- NOTE | 2023-06-04 22:55 | PM.IMHP ---
History of Present Illness Date of Service: 06/04/23 Attending physician on admission: Demian Waggoner Chief Complaint: Ruptured paibful blister on left leg x5 days Patient is a 62 year old male whose history was obtained with the assistance of a rn medical inpatient services and who has multiple medical comorbidities including CHF, DM2, asthma, BPH, PVD, BPH, hyperlipidemia & s/p R AKA who presents to the emergency room complaining of worsening LLE pain & swelling of the LLE for the past 5 days. He has a history of PVD and sees Dr. Dia and reports LLE swelling for the past month during which time he also developed a blister on the anterior aspect of the left dennis which has since burst and is now draining clear fluid. He rates his pain at an 8/10 and it is localized to the left leg/dennis area. He denies any preceding trauma and also denies any associated fevers or chills. Work up done in the emergency room was significant for a leucocytosis of 12.7 k/mm3 and elevated lactic acid at 3.2. He was started on IV Zosyn and Vancomycin for cellulitis and admission requested. His main complaint during my evaluation was pain in the affected limb. Review of Systems Review of Systems: Yes all other systems are reviewed and are negative [facility] Medical History (Updated 06/04/23 @ 23:36 by Demian Waggoner MD) History of right above knee amputation PAD (peripheral artery disease) Infection of amputation site of lower extremity BKA stump complication Below-knee amputation of right lower extremity BPH (benign prostatic hyperplasia) Cardiomyopathy CAD (coronary artery disease) History of peripheral vascular disease Coronary artery disease Cardiomyopathy Essential hypertension Type 2 diabetes mellitus with unspecified complications Abscess, perineum Asthma High cholesterol HTN (hypertension) Diabetes Functional capacity: uses cane/walker Family History Father No problems noted. Mother Diabetes HTN (hypertension) Sister No problems noted. Sister Diabetes HTN (hypertension) Sister No problems noted. Surgical History History of surgical removal of pilonidal cyst Hx of hand surgery Hx of hand surgery History of cardiac cath S/P angiogram of extremity Hx of varicose vein stripping Social History Household Members: None Housing: Apartment Housing Other:: elderly housing Are you a primary career services representative to a significant other at home: No Do you presently have visiting nurse or other home services: Yes Alcohol intake: never Comment: Refused bed and chair alarm. Patient Tobacco Use Status: Never used Tobacco Tobacco use type: Cigarette Cigarette Packs Per Day: 0.5 Cigarettes Per Day: 5 Years Smoked: 15+/- Smoked in Last 30 Days: Yes Second Hand Smoke Exposure: No Use of substances other than those prescribed or required for medical reasons: No Advance Directives: Yes Advance Directives on File: Yes Advance Directives Date on File: 12/10/20 service: No Current occupational status: disabled Meds Allergies Allergy/AdvReac Type Severity Reaction Status Date / Time No Known Allergies Allergy Verified 04/27/23 14:10 Home Medications Medication Instructions Recorded Confirmed Last Taken Type albuterol sulfate 2.5 mg/3 mL 2.5 mg inhalation Q4H PRN Wheezing 06/04/23 06/04/23 Unknown History (0.083 %) solution for nebulization albuterol sulfate 90 mcg/actuation 2 puff inhalation Q4H PRN wheezing 06/04/23 06/04/23 Unknown History aerosol inhaler (Ventolin HFA) atorvastatin 80 mg tablet 80 mg PO BEDTIME 06/04/23 06/04/23 Unknown History furosemide 20 mg tablet 60 mg PO DAILY 06/04/23 06/04/23 Unknown History ipratropium 20 mcg-albuterol 100 1 puff inhalation QID 06/04/23 06/04/23 Unknown History mcg/actuation mist for inhalation (Combivent Respimat) lisinopril 40 mg tablet 40 mg PO BEDTIME 06/04/23 06/04/23 Unknown History pantoprazole 20 mg tablet,delayed 20 mg PO QAM 06/04/23 06/04/23 Unknown History release Physical Exam Vital Signs and Narrative: Vital Signs: Last Vital Signs Temp 97.2 F 06/04/23 18:24 Pulse 83 06/04/23 22:00 Resp 20 06/04/23 22:00 BP 117/72 06/04/23 22:00 Pulse Ox 96 06/04/23 22:00 O2 Del Method Room Air 06/04/23 22:00 BMI result Body Mass Index 33.9 General: Well nourished male in bed. In pain otherwise in no cardio-respiratory distress. Eyes: No pallor or jaundice. PERRLA, EOMI HENT: Moist oral mucus membranes. No oropharyngeal lesions. Neck: Supple. No cervical adenopathy. No JVD Cardiovascular: Regular rate and rhythm. Normal heart sounds. No murmurs, rubs or gallops. No JVD. 2+ pitting edema of LLE Respiratory: Normal respiratory effort with no accessory muscle use. CTAB. , CTA bilaterally Gastrointestinal: Abdomen is soft, non-tender, non-distended. NABS. No hepatosplenomegally Extremities: s/p Right AKA. LLE with trace edema but no tenderness. Unable to appreciated DP/PT pulses on the left foot. Skin - Warm/Dry. No rashes. No mottling. Capillary refill is < 2 seconds Neurological - AAOx4. Intact speech & cognition. CN II - XII grossly intact but not individually tested. No motor or sensory deficits Hematologic: No bleeding. No ecchymosis. No swollen or tender lymph nodes. Psychiatric: Irritated mood due to pain. Otherwise cooperative. . Results Labs 06/04/23 17:51 06/04/23 17:50 Labs: Laboratory Results - last 24 hr 06/04/23 06/04/23 06/04/23 17:50 17:51 20:33 MCV 90.6 MCH 27.3 MCHC 30.1 L RDW 16.4 H Plt Count 300 MPV 9.9 Immature Gran % (Auto) 0.4 Neut % (Auto) 79.6 H Lymph % (Auto) 10.2 L [place] % (Auto) 8.7 Eos % (Auto) 0.7 Baso % (Auto) 0.4 Lymph # (Auto) 1.3 [place] # (Auto) 1.1 Eos # (Auto) 0.1 Baso # (Auto) 0.1 Abs Immat Gran (auto) 0.05 H Absolute Neuts (auto) 10.1 H Absolute Nucleated RBC 0.000 Nucleated RBC % (auto) 0.0 PT 17.0 H INR 1.4 H Anion Gap 13 Estim Creat Clear Calc 86.7 Estimated GFR > 60 Random Glucose 288 H Lactic Acid 3.2 H* Lactic Acid F/U @ 2Hr 2.7 H* Calcium 8.7 Magnesium 2.2 Total Bilirubin 0.5 Direct Bilirubin 0.3 AST 9 ALT 10 Alkaline Phosphatase 118 H Total Creatine Kinase 38 C-Reactive Protein 3.69 H B-Natriuretic Peptide 2929 H Total Protein 7.2 Albumin 3.4 L Imaging Radiologist's Impressions: Impressions Chest X-Ray 06/04/23 18:05 IMPRESSION: Findings suggestive of small airways disease or atypical infectious/inflammatory process with increased diffuse bronchial wall thickening. Streaky opacities in the retrocardiac region are in favor to represent subsegmental atelectasis. Venous Duplex 06/04/23 19:04 IMPRESSION: No DVT demonstrated in the left lower extremity. Assessment and Plan (1) Cellulitis of left lower extremity: Status: Acute (2) Acidosis, lactic: Status: Acute (3) PAD (peripheral artery disease): Status: Acute (4) CHF (congestive heart failure): Qualifiers: Heart failure chronicity: acute on chronic Heart failure type: unspecified Qualified Code(s): I50.9 - Heart failure, unspecified Status: Acute (5) Right above-knee amputee: Status: Acute Plan Patient is a 62 year old male whose history was obtained with the assistance of a rn medical inpatient services and who has multiple medical comorbidities including CHF, DM2, asthma, BPH, PVD, BPH, hyperlipidemia & s/p R AKA who presents to the ER with 1. Cellulitis of the LLE - foot is noted to be erythematous and edematous with a burst blister on th antrior dennis - likely with cellulitis - admit for IV antibiotics - PRN analgesics 2. Elevated serum lactate - elevated at 2.7 - improved with IV fluids - not septic 3. Type 2 Diabetes Mellitus - continue Metformin - add SSI coverage 4. Hypertension - resume Lisinopril 5. Hyperlipidemia - resume Atorvastatin 6. Asthma - has a h/o asthma/COPD - asymptomatic - resume Combivent Respimat and PRN Albuterol DVT: SC Lovenox CODE STATUS: Full code Admission for at least 2 midnights for management of cellulitis requiring IV antibiotics Total time managing care of this patient today: 75 minutes. Quality Stroke Does the patient have a stroke diagnosis?: No VTE Prior VTE?: No VTE Risk Level:: Medical - moderate - high VTE Device Contraindication: Procedure Contraindicated VTE Drug Contraindication: N/A - Med Ordered
[2023-06-04 23:06] LABS: ~Lactic Acid-LAB USE ONLY 1.8 mmol/L (0.5-2.0)
[2023-06-05] VITALS (7 sets, daily range): BP systolic 115–127; BP diastolic 52–68; PULSE 79–84; RESP 16–20; TEMP 35.8–36.3; O2SAT 95–98; BMI 33.4
[2023-06-05] MEDS: Albuterol/Iprat 2.5/0.5MG 3 ML AMPUL.NEB INHALE ×3 (00:02→23:54)
[2023-06-05] MEDS: Ketorolac Tromethamine 30 MG/ML VIAL IVPUSH (00:28)
[2023-06-05] MEDS: Enoxaparin Sodium 40 MG/0.4 ML SYRINGE SUBCUT ×2 (00:31→21:53)
[2023-06-05] MEDS: 0.9 % Sodium Chloride Flush 3 ML SYRINGE IVFLUSH ×3 (00:32→16:50)
[2023-06-05] MEDS: Piperacillin Sodium/Tazobactam 3.375 GM in 0.9 % Sodium Chloride 50 ML IV ×4 (04:35→21:53)
[2023-06-05] MEDS: HYDROmorphone HCl 1 MG/ML SYRINGE 0.5 MG IVPUSH (04:36)
--- NOTE | 2023-06-05 05:43 | PC.NURSE ---
at approx 0530 care assumed of patient by this RN.
--- NOTE | 2023-06-05 05:51 | PC.NURSE ---
ED handoff complete; call placed to SANDRA Carrion to notify her it was complete.
[2023-06-05 07:22] LABS: Glucose, Whole Blood 199 mg/dL (60-115)
[2023-06-05 08:06] LABS: MANUAL DIFF FLAG NO
[2023-06-05 08:10] LABS: Basophils Absolute Auto 0.1 X10*3/uL (0.0-0.2); Basophils Percent Auto 0.7 % (0-2); Eosinophils Absolute Auto 0.3 X10*3/uL (0.0-0.4); Eosinophils Percent Auto 2.1 % (0-4); Hematocrit 34.7 % (42.0-52.0); Hemoglobin 10.5 g/dl (14.0-18.0); Imm Gran Abs Auto 0.04 X10*3/uL (0.00-0.03); Imm Gran Pct Auto 0.3 % (0.0-0.4); Lymphocytes Absolute Auto 2.4 X10*3/uL (1.2-4.9); Lymphocytes Percent Auto 19.9 % (20-40); Mean Corpuscular HGB Conc 30.3 g/dl (31.0-36.0); Mean Corpuscular Hemoglobin 27.1 pg (27.0-33.0); Mean Corpuscular Volume 89.7 fL (80.0-98.0); Mean Platelet Volume 10.4 fL (9.4-12.4); Monocytes Percent Auto 8.4 % (2-11); Neutrophils Absolute Auto 8.4 x10*3/uL (2.0-8.3); Neutrophils Percent Auto 68.6 % (45-73); Platelet Count 282 X10*3/uL (160-400); Red Blood Count 3.87 X10*6/uL (4.60-5.80); Red Cell Distribution Width 16.4 % (11.0-16.0); White Blood Count 12.2 X10*3/uL (4.8-10.8)
--- NOTE | 2023-06-05 08:20 | HO.PM.IMPN ---
Subjective Subjective Date of Service: 06/05/23 Interval History: f/u on cellulitis, leg remains red and swollen Physical Exam Vital Signs: Vital Signs: Last Vital Signs Temp 97.2 F 06/04/23 18:24 Pulse 83 06/05/23 00:05 Resp 16 06/05/23 00:05 BP 125/68 06/05/23 00:00 Pulse Ox 97 06/05/23 00:00 O2 Del Method Room Air 06/05/23 00:00 BMI result Body Mass Index 33.9 Const: Other: General: AO X 3, no acute distress Resp: CTA bilateral CVS: S1,S2,RRR GI: +BS, NT, no distention Skin: right aka, see pic of left Neuro: motor grossly intact Psych: appropriate affect Objective Data Active Medications Acetaminophen (Acetaminophen 325 Mg Tablet) 650 mg PO Q6H PRN PRN Reason: Pain, Mild (Pain Scale 1-3) Hydrocodone Bitart/Acetaminophen (Hydrocodone Bit/Acetam 5/325 Tablet) 1 tab PO Q4H PRN PRN Reason: Pain, Moderate(Pain Scale 4-6) Albuterol Sulfate (Albuterol Sulfate (0.083%) 2.5 Mg/3 Ml Vial.Neb) 2.5 mg INHALE Q4H PRN PRN Reason: Wheezing Albuterol/Ipratropium (Albuterol/Iprat 2.5/0.5mg 3 Ml Ampul.Neb) 3 ml INHALE Q6H KARI Last Admin: 06/05/23 05:24 Dose: Not Given Documented By: MICKI Non-Admin Reason: Patient Refused Atorvastatin Calcium (Atorvastatin Calcium 80 Mg Tablet) 80 mg PO BEDTIME KARI Docusate Sodium (Docusate Sodium 100 Mg Capsule) 100 mg PO DAILY PRN PRN Reason: Constipation Enoxaparin Sodium (Enoxaparin Sodium 40 Mg/0.4 Ml Syringe) 40 mg SUBCUT BEDTIME [facility] Last Admin: 06/05/23 00:31 Dose: 40 mg Documented By: TIMOTEO Furosemide (Furosemide 100 Mg/10 Ml Vial) 60 mg IVPUSH DAILY KARI; Protocol Hydromorphone HCl (Hydromorphone Hcl 1 Mg/Ml Syringe) 0.5 mg IVPUSH Q4H PRN; Protocol PRN Reason: Pain, Severe (Pain Scale 7-10) Last Admin: 06/05/23 04:36 Dose: 0.5 mg Documented By: TIMOTEO Vancomycin HCl 1,000 mg/ (Sodium Chloride) 270 mls @ 270 mls/hr IV Q12H KARI Piperacillin Sod/Tazobactam (Sod 3.375 gm/ Sodium Chloride) 50 mls @ 100 mls/hr IV Q6H KARI Lisinopril (Lisinopril 40 Mg Tablet) 40 mg PO BEDTIME KARI; Protocol Melatonin (Melatonin 3 Mg Tablet) 6 mg PO BEDTIME PRN PRN Reason: Insomnia Omeprazole (Omeprazole 20 Mg Capsule.Dr) 20 mg PO DAILY KARI Ondansetron HCl (Ondansetron Hcl 4 Mg/2 Ml Vial) 4 mg IVPUSH Q8H PRN PRN Reason: Nausea and Vomiting Pharmacy Consult (Consult Rx Vancomycin Dosing) 1 each MISCELLANE DAILY PRN PRN Reason: Consult order Senna (Sennosides 8.6 Mg Tablet) 17.2 mg PO BEDTIME PRN PRN Reason: Constipation Sodium Chloride (0.9 % Sodium Chloride Flush 3 Ml Syringe) [facility] Last Admin: 06/05/23 07:34 Dose: 3 ml Documented By: MELVIN Labs 06/05/23 07:39 06/05/23 07:39 Labs: Laboratory Results - last 24 hr 06/04/23 06/04/23 06/04/23 17:50 17:51 20:33 MCV 90.6 MCH 27.3 MCHC 30.1 L RDW 16.4 H Plt Count 300 MPV 9.9 Immature Gran % (Auto) 0.4 Neut % (Auto) 79.6 H Lymph % (Auto) 10.2 L [place] % (Auto) 8.7 Eos % (Auto) 0.7 Baso % (Auto) 0.4 Lymph # (Auto) 1.3 [place] # (Auto) 1.1 Eos # (Auto) 0.1 Baso # (Auto) 0.1 Abs Immat Gran (auto) 0.05 H Absolute Neuts (auto) 10.1 H Absolute Nucleated RBC 0.000 Nucleated RBC % (auto) 0.0 PT 17.0 H INR 1.4 H Anion Gap 13 Estim Creat Clear Calc 86.7 Estimated GFR > 60 POC Glucose Random Glucose 288 H Lactic Acid 3.2 H* Lactic Acid F/U @ 2Hr 2.7 H* Lactic Acid F/U @ 4Hr Calcium 8.7 Magnesium 2.2 Total Bilirubin 0.5 Direct Bilirubin 0.3 AST 9 ALT 10 Alkaline Phosphatase 118 H Total Creatine Kinase 38 C-Reactive Protein 3.69 H B-Natriuretic Peptide 2929 H Total Protein 7.2 Albumin 3.4 L 06/04/23 06/05/23 06/05/23 22:48 07:10 07:39 MCV 89.7 MCH 27.1 MCHC 30.3 L RDW 16.4 H Plt Count 282 MPV 10.4 Immature Gran % (Auto) 0.3 Neut % (Auto) 68.6 Lymph % (Auto) 19.9 L [place] % (Auto) 8.4 Eos % (Auto) 2.1 Baso % (Auto) 0.7 Lymph # (Auto) 2.4 [place] # (Auto) 1.0 Eos # (Auto) 0.3 Baso # (Auto) 0.1 Abs Immat Gran (auto) 0.04 H Absolute Neuts (auto) 8.4 H Absolute Nucleated RBC 0.000 Nucleated RBC % (auto) 0.0 PT INR Anion Gap Estim Creat Clear Calc Estimated GFR POC Glucose 199 H Random Glucose Lactic Acid Lactic Acid F/U @ 2Hr Lactic Acid F/U @ 4Hr 1.8 Calcium Magnesium Total Bilirubin Direct Bilirubin AST ALT Alkaline Phosphatase Total Creatine Kinase C-Reactive Protein B-Natriuretic Peptide Total Protein Albumin Assessment and Plan (1) Cellulitis of left lower extremity: Status: Acute Plan 62 year old male whose history was obtained with the assistance of a educational sign language interpreter and who has multiple medical comorbidities including CHF, DM2, asthma, BPH, PVD, BPH, hyperlipidemia & s/p R AKA who presents to the ER with 1. Cellulitis of the LLE, erythematous, edematous with a ruptured blister on th antrior dennis -IV Vanco +Zosyn started 06/04 -ID consult - PRN analgesics 2.Acute lactic acidosis, d/t metformin not sepsis, improved with IVF, 3. Type 2 Diabetes Mellitus - hold metformin d/t lactic acidosis -POC, diabetic diet 4. Hypertension - Lisinopril 5. Hyperlipidemia - Atorvastatin 6. mild peristent Asthma, no exacerbation, - Combivent Respimat and PRN Albuterol DVT: SC Lovenox CODE STATUS: Full code need: limb threatening cellulitis and needs IV Abx and close monitoring Quality Stroke Does the patient have a stroke diagnosis?: No VTE Prior VTE?: No VTE Risk Level:: Medical - moderate - high VTE Device Contraindication: Procedure Contraindicated VTE Drug Contraindication: N/A - Med Ordered
[2023-06-05 08:41] LABS: Anion Gap 14 (12-20); Blood Urea Nitrogen 17 mg/dL (9-16); Calcium 8.4 mg/dL (8.4-10.2); Carbon Dioxide 23 mmol/L (22-29); Chloride 104 mmol/L (96-108); Creatinine Clr Calc Pharmacy 80.6; Estimated Glomerular Filt Rate > 60; Glucose Random 164 mg/dL (60-115); Magnesium 2.2 mg/dL (1.6-2.6); Potassium 3.8 mmol/L (3.3-5.1); Sodium 137 mmol/L (135-145)
[2023-06-05] MEDS: Omeprazole 20 MG CAPSULE.DR PO (09:31)
[2023-06-05] MEDS: Furosemide 100 MG/10 ML VIAL 60 MG IVPUSH (09:31)
[2023-06-05] MEDS: vancomycin HCL 1,000 MG in 0.9 % Sodium Chloride 250 ML 270 MG IV (10:54)
[2023-06-05 11:19] LABS: Glucose, Whole Blood 208 mg/dL (60-115)
[2023-06-05] MEDS: Insulin Lispro 100 UNIT/ML 3 ML VIAL SUBCUT ×2 (11:54→21:53)
[2023-06-05] MEDS: HYDROcodone Bit/Acetam 5/325 TABLET 1 TAB PO (13:20)
[2023-06-05 16:02] LABS: Glucose, Whole Blood 136 mg/dL (60-115)
[2023-06-05 20:16] LABS: Glucose, Whole Blood 165 mg/dL (60-115)
[2023-06-05 21:39] LABS: Vancomycin Random 18.7 mcg/mL (15-20)
[2023-06-05] MEDS: Docusate Sodium 100 MG CAPSULE PO (21:52)
[2023-06-05] MEDS: Atorvastatin Calcium 80 MG TABLET PO (21:52)
[2023-06-05] MEDS: lisinopriL 40 MG TABLET PO (21:52)
[2023-06-05] MEDS: Acetaminophen 325 MG TABLET 650 MG PO (21:52)
[2023-06-05] MEDS: Sennosides 8.6 MG TABLET 17.2 MG PO (21:52)
--- NOTE | 2023-06-05 22:15 | PC.NURSE ---
Interpretive services assisted RN at bedside with medication administration and pt education. Pt c/o constipation and c/o 8/10 pain, requesting morphine. Educated pt on the side effects of morphine and the risk of constipation, to which pt agreed to Tylenol instead. Tylenol, senna, and colace administered per MAR. Pt's LLE has an open blister, ROSELIA, and there is 4+ edema to the dorsal foot. Pt educated on importance of elevating foot and to cover the open areas on his legs. Pt refusing dressing and refusing to put leg in bed at this time for elevation. Call dominguez within reach. Will continue with plan of care.
[2023-06-05] MEDS: vancomycin HCL 500 MG in 0.9 % Sodium Chloride 100 ML 110 MG IV (23:53)
[2023-06-06] VITALS (7 sets, daily range): BP systolic 102–128; BP diastolic 58–63; PULSE 72–80; RESP 16–20; TEMP 36–36.4; O2SAT 95–100; BMI 33.4; BMI 28.9
[2023-06-06] MEDS: 0.9 % Sodium Chloride Flush 3 ML SYRINGE IVFLUSH ×4 (00:11→21:14)
[2023-06-06] MEDS: Piperacillin Sodium/Tazobactam 3.375 GM in 0.9 % Sodium Chloride 50 ML IV ×4 (04:03→21:14)
[2023-06-06 06:17] LABS: Creatinine Clr Calc Pharmacy 78.4; Estimated Glomerular Filt Rate > 60
[2023-06-06] MEDS: Albuterol/Iprat 2.5/0.5MG 3 ML AMPUL.NEB INHALE ×3 (06:31→18:21)
[2023-06-06 07:11] LABS: Glucose, Whole Blood 150 mg/dL (60-115)
[2023-06-06] MEDS: HYDROmorphone HCl 1 MG/ML SYRINGE 0.5 MG IVPUSH (08:39)
[2023-06-06] MEDS: Furosemide 100 MG/10 ML VIAL 60 MG IVPUSH (08:40)
[2023-06-06] MEDS: Omeprazole 20 MG CAPSULE.DR PO (08:41)
[2023-06-06 11:05] LABS: Glucose, Whole Blood 189 mg/dL (60-115)
--- NOTE | 2023-06-06 11:10 | P.PNIM_ITS ---
Subjective Subjective Date of Service: 06/06/23 Interval History: seen and examined this morning follow up for left leg cellulitis pt reporting ongoing pain and swelling, he can't see very well but thinks the area looks less red Review of Systems Review of Systems: Yes all other systems are reviewed and are negative Constitutional Constitutional: Denies chills and Denies fever(s) Cardiovascular Cardiovascular: Denies chest pain Respiratory Respiratory: Denies cough Physical Exam 2 Vital Signs: Vital Signs: Last Vital Signs Temp 97.2 F 06/06/23 09:03 Pulse 80 06/06/23 09:03 Resp 16 06/06/23 09:03 BP 119/59 L 06/06/23 09:03 Pulse Ox 95 06/06/23 09:03 O2 Del Method Room Air 06/06/23 09:03 O2 Flow Rate 1 06/06/23 07:15 BMI result Body Mass Index 28.9 Const: General: cooperative, comfortable, no acute distress, alert and awake Nutritional Appearance: overweight Orientation/consciousness: patient oriented x3 Resp: Other: dim no wheezing Effort & Inspection: normal respiratory effort, able to speak in complete sentences, no respiratory distress and no use of accessory muscles Cardio: Rate: regular rate GI: Palpation (GI): Soft to palpation and nontender Skin: Other: left lower extremity Neuro: General: patient oriented x3, moves all extremities and CN's II-XI intact bilaterally Extrem: Other: s/p right AKA Objective Data Active Medications Acetaminophen (Acetaminophen 325 Mg Tablet) 650 mg PO Q6H PRN PRN Reason: Pain, Mild (Pain Scale 1-3) Last Admin: 06/05/23 21:52 Dose: 650 mg Documented By: MIKALA Hydrocodone Bitart/Acetaminophen (Hydrocodone Bit/Acetam 5/325 Tablet) 1 tab PO Q4H PRN PRN Reason: Pain, Moderate(Pain Scale 4-6) Last Admin: 06/05/23 13:20 Dose: 1 tab Documented By: MELVIN Albuterol Sulfate (Albuterol Sulfate (0.083%) 2.5 Mg/3 Ml Vial.Neb) 2.5 mg INHALE Q4H PRN PRN Reason: Wheezing Albuterol/Ipratropium (Albuterol/Iprat 2.5/0.5mg 3 Ml Ampul.Neb) 3 ml INHALE Q6H [facility] Last Admin: 06/06/23 06:31 Dose: 3 ml Documented By: CURTIS Atorvastatin Calcium (Atorvastatin Calcium 80 Mg Tablet) 80 mg PO BEDTIME KARI Last Admin: 06/05/23 21:52 Dose: 80 mg Documented By: MIKALA Dextrose (Dextrose 50 % 25 Gm/50 Ml Syringe) 25 gm IVPUSH Q15M PRN; Protocol PRN Reason: per Hypoglycemia Standing Ord. Docusate Sodium (Docusate Sodium 100 Mg Capsule) 100 mg PO DAILY PRN PRN Reason: Constipation Last Admin: 06/05/23 21:52 Dose: 100 mg Documented By: MIKALA Enoxaparin Sodium (Enoxaparin Sodium 40 Mg/0.4 Ml Syringe) 40 mg SUBCUT BEDTIME KARI Last Admin: 06/05/23 21:53 Dose: 40 mg Documented By: MIKALA Furosemide (Furosemide 100 Mg/10 Ml Vial) 60 mg IVPUSH DAILY [facility]; Protocol Last Admin: 06/06/23 08:40 Dose: 60 mg Documented By: MELVIN Glucose (Glucose Gel 15 Gm Gel..Gram.) 15 gm PO Q15M PRN; Protocol PRN Reason: per Hypoglycemia Standing Ord. Hydromorphone HCl (Hydromorphone Hcl 1 Mg/Ml Syringe) 0.5 mg IVPUSH Q4H PRN; Protocol PRN Reason: Pain, Severe (Pain Scale 7-10) Last Admin: 06/06/23 08:39 Dose: 0.5 mg Documented By: MELVIN Piperacillin Sod/Tazobactam (Sod 3.375 gm/ Sodium Chloride) 50 mls @ 100 mls/hr IV Q6H [facility] Last Admin: 06/06/23 10:57 Dose: 100 mls/hr Documented By: MELVIN Vancomycin HCl 500 mg/ Sodium (Chloride) 110 mls @ 110 mls/hr IV Q12H [facility] Last Infusion: 06/06/23 01:12 Dose: Infused Documented By: CAITLIN Insulin Human Lispro (Insulin Lispro 100 Unit/Ml 3 Ml Vial) 0 unit SUBCUT QIDACHS [facility]; Protocol Last Admin: 06/06/23 07:23 Dose: Not Given Documented By: MELVIN Non-Admin Reason: No Insulin Coverage Lisinopril (Lisinopril 40 Mg Tablet) 40 mg PO BEDTIME [facility]; Protocol Last Admin: 06/05/23 21:52 Dose: 40 mg Documented By: MIKALA Melatonin (Melatonin 3 Mg Tablet) 6 mg PO BEDTIME PRN PRN Reason: Insomnia Omeprazole (Omeprazole 20 Mg Capsule.) 20 mg PO DAILY [facility] Last Admin: 06/06/23 08:41 Dose: 20 mg Documented By: MELVIN Ondansetron HCl (Ondansetron Hcl 4 Mg/2 Ml Vial) 4 mg IVPUSH Q8H PRN PRN Reason: Nausea and Vomiting Pharmacy Consult (Consult Rx Vancomycin Dosing) 1 each MISCELLANE DAILY PRN PRN Reason: Consult order Senna (Sennosides 8.6 Mg Tablet) 17.2 mg PO BEDTIME PRN PRN Reason: Constipation Last Admin: 06/05/23 21:52 Dose: 17.2 mg Documented By: MIKALA Sodium Chloride (0.9 % Sodium Chloride Flush 3 Ml Syringe) 3 ml IVFLUSH QSHIFT [facility] Last Admin: 06/06/23 08:39 Dose: 3 ml Documented By: MELVIN Labs 06/05/23 07:39 06/06/23 05:38 Labs: Laboratory Results - last 24 hr 06/05/23 06/05/23 06/05/23 11:11 15:57 20:12 Hold Purple Top Estim Creat Clear Calc Estimated GFR POC Glucose 208 H 136 H 165 H Random Vancomycin 06/05/23 06/06/23 06/06/23 20:49 05:38 07:08 Hold Purple Top SEE NOTE Estim Creat Clear Calc 78.4 Estimated GFR > 60 POC Glucose 150 H Random Vancomycin 18.7 06/06/23 11:00 Hold Purple Top Estim Creat Clear Calc Estimated GFR POC Glucose 189 H Random Vancomycin Microbiology Microbiology Results: Microbiology 06/04/23 18:08 Blood Culture - Preliminary Blood - Venous No growth after 24 hours. 06/04/23 17:50 Blood Culture - Preliminary Blood - Venous No growth after 24 hours. Assessment and Plan (1) Cellulitis of left lower extremity: Status: Acute Plan 62 year old male whose history was obtained with the assistance of a parachute accessories attacher and who has multiple medical comorbidities including CHF, DM2, asthma, BPH, PVD, BPH, hyperlipidemia & s/p R AKA who presents to the ER with 1. Cellulitis of the LLE erythema improving but still with significant swelling and pain US negative for DVT Continue IV Vanco +Zosyn started 06/04 Continue IV lasix for leg edema Discussed importance of keeping leg elevated - nurse reports pt sits up with leg over the side of the bed Blood cultures negative to date -ID consult pending 2. Acute lactic acidosis, d/t metformin not sepsis, improved with IVF 3. Type 2 Diabetes Mellitus hold metformin d/t lactic acidosis -POC, diabetic diet 4. Hypertension - Lisinopril 5. Hyperlipidemia - Atorvastatin 6. mild persistent Asthma, no exacerbation - Combivent Respimat and PRN Albuterol DVT: SC Lovenox CODE STATUS: Full code attending Dr. Gerber Ongoing inpatient stay for significant cellulitis cover >50% of lower extremity, need for IV Abx and close monitoring in a diabetic patient with risk for progressive infection Quality Stroke Does the patient have a stroke diagnosis?: No VTE Prior VTE?: No VTE Risk Level:: Medical - moderate - high VTE Device Contraindication: Procedure Contraindicated VTE Drug Contraindication: N/A - Med Ordered
[2023-06-06] MEDS: HYDROcodone Bit/Acetam 5/325 TABLET 1 TAB PO ×2 (11:50→16:19)
[2023-06-06] MEDS: vancomycin HCL 500 MG in 0.9 % Sodium Chloride 100 ML 110 MG IV (11:50)
[2023-06-06] MEDS: Insulin Lispro 100 UNIT/ML 3 ML VIAL SUBCUT ×3 (11:52→21:13)
--- NOTE | 2023-06-06 12:32 | MHC.CM.PN ---
CM MET WITH PT WITH THE ASSISTANCE OF A RETAIL EVENT COORDINATOR. HE REPORTS HE LIVES ALONE AND HAS DAILY TUB MENDER SERVICES PT REPORTS HE USES A POWER W/C FOR ALL MOBILITY HE HAS A HCP AND MOLST ON FILE PCP: ROBIN MOREJON DCP: HOME [facility]UME [employer] [facility] HE WILL NEED BLS TRANSPORT
--- NOTE | 2023-06-06 14:02 | PC.NURSE ---
Pt. wanted to sit on a recliner, recliner was found and with pick and pivot 2 assist pt. was transferred to the chair. educational interpreter was utilized thought the day. As soon as the pt. sat on the chair he wanted to be wheeled to the chair, extension for his Oxygen was going to be applied, but pt. start to get upset and saying he wanted things to be done faster while we were in the room trying to get him situated. The call dominguez plug box was not there, and the call dominguez he had was not going to reach to the window. While discussing how to help him he start screaming that nobody is helping him and he was going to report everybody to the big Boss, and screaming that he wants to go back to bed and nothing else. Sara charge Nurse notified.
--- NOTE | 2023-06-06 14:15 | PC.NURSE ---
pt. refusing bed alarm and chair alarm.
[2023-06-06 15:27] LABS: Glucose, Whole Blood 183 mg/dL (60-115)
[2023-06-06] MEDS: Artificial Tears 15 ML DROPS 1 DROP EYE-BOTH (19:39)
[2023-06-06 21:08] LABS: Glucose, Whole Blood 170 mg/dL (60-115)
[2023-06-06] MEDS: Enoxaparin Sodium 40 MG/0.4 ML SYRINGE SUBCUT (21:13)
[2023-06-06] MEDS: Atorvastatin Calcium 80 MG TABLET PO (21:14)
[2023-06-06] MEDS: lisinopriL 40 MG TABLET PO (21:14)
[2023-06-06 22:06] LABS: Vancomycin Random 12.5 mcg/mL (15-20)
[2023-06-06] MEDS: vancomycin HCL 750 MG in 0.9 % Sodium Chloride 250 ML 265 MG IV (22:47)
[2023-06-07] VITALS (8 sets, daily range): BP systolic 120–130; BP diastolic 60; PULSE 74–81; RESP 16–18; TEMP 36.1–36.7; O2SAT 93–100
[2023-06-07] MEDS: Piperacillin Sodium/Tazobactam 3.375 GM in 0.9 % Sodium Chloride 50 ML IV ×4 (03:55→21:28)
[2023-06-07] MEDS: Albuterol/Iprat 2.5/0.5MG 3 ML AMPUL.NEB INHALE ×3 (05:22→18:44)
[2023-06-07 06:29] LABS: Hematocrit 36.8 % (42.0-52.0); Hemoglobin 11.4 g/dl (14.0-18.0); Mean Corpuscular Hemoglobin 27.5 pg (27.0-33.0); Mean Corpuscular Volume 88.9 fL (80.0-98.0); Mean Platelet Volume 11.3 fL (9.4-12.4); Platelet Count 220 X10*3/uL (160-400); Red Blood Count 4.14 X10*6/uL (4.60-5.80); Red Cell Distribution Width 16.3 % (11.0-16.0); White Blood Count 10.5 X10*3/uL (4.8-10.8)
[2023-06-07 06:40] LABS: Creatinine Clr Calc Pharmacy 73.2; Estimated Glomerular Filt Rate > 60
[2023-06-07 07:33] LABS: Glucose, Whole Blood 166 mg/dL (60-115)
[2023-06-07] MEDS: Insulin Lispro 100 UNIT/ML 3 ML VIAL SUBCUT ×4 (07:56→20:39)
[2023-06-07] MEDS: Furosemide 100 MG/10 ML VIAL 60 MG IVPUSH (07:56)
[2023-06-07] MEDS: 0.9 % Sodium Chloride Flush 3 ML SYRINGE IVFLUSH ×3 (07:57→20:39)
[2023-06-07] MEDS: HYDROcodone Bit/Acetam 5/325 TABLET 1 TAB PO ×3 (07:57→18:40)
[2023-06-07] MEDS: Omeprazole 20 MG CAPSULE.DR PO (07:57)
[2023-06-07] MEDS: vancomycin HCL 750 MG in 0.9 % Sodium Chloride 250 ML 265 MG IV ×2 (10:49→22:39)
[2023-06-07] MEDS: HYDROmorphone HCl 1 MG/ML SYRINGE 0.5 MG IVPUSH ×2 (10:49→21:37)
[2023-06-07 11:20] LABS: Glucose, Whole Blood 202 mg/dL (60-115)
--- NOTE | 2023-06-07 12:04 | MHC.CM.PN ---
received call from elisha leal s/protective [phone] ext [phone] who will be following pt in community and wouldlike to be called when pt dcd
--- NOTE | 2023-06-07 12:15 | HO.PM.IMPN ---
Subjective Subjective Date of Service: 06/07/23 Interval History: follow up for left leg cellulitis pt reporting ongoing pain and swelling, he can't see very well but thinks the area looks less red Review of Systems Review of Systems: Yes all other systems are reviewed and are negative Constitutional Constitutional: Denies chills and Denies fever(s) Cardiovascular Cardiovascular: Denies chest pain Respiratory Respiratory: Denies cough Physical Exam Vital Signs: Vital Signs: Last Vital Signs Temp 97.5 F 06/07/23 07:19 Pulse 77 06/07/23 11:13 Resp 18 06/07/23 11:13 BP 127/60 06/07/23 07:19 Pulse Ox 98 06/07/23 10:21 O2 Del Method Room Air 06/07/23 10:21 O2 Flow Rate 1 06/07/23 00:00 BMI result Body Mass Index 28.9 Appearing in no acute distress lung sounds are clear to auscultation heart regular rate rhythm, clear S1, S2 positive bowel sounds, abdomen is soft, nontender neuro patient is alert x3, no focal deficits LLE edema with broken blister likely from edema Objective Data Active Medications Acetaminophen (Acetaminophen 325 Mg Tablet) 650 mg PO Q6H PRN PRN Reason: Pain, Mild (Pain Scale 1-3) Last Admin: 06/05/23 21:52 Dose: 650 mg Documented By: MIKALA Hydrocodone Bitart/Acetaminophen (Hydrocodone Bit/Acetam 5/325 Tablet) 1 tab PO Q4H PRN PRN Reason: Pain, Moderate(Pain Scale 4-6) Last Admin: 06/07/23 07:57 Dose: 1 tab Documented By: MELVIN Albuterol Sulfate (Albuterol Sulfate (0.083%) 2.5 Mg/3 Ml Vial.Neb) 2.5 mg INHALE Q4H PRN PRN Reason: Wheezing Albuterol/Ipratropium (Albuterol/Iprat 2.5/0.5mg 3 Ml Ampul.Neb) 3 ml INHALE Q6H KARI Last Admin: 06/07/23 11:11 Dose: 3 ml Documented By: KIM Artificial Tears (Artificial Tears 15 Ml Drops) 1 drop EYE-BOTH Q4H PRN PRN Reason: Dry Eyes Last Admin: 06/06/23 19:39 Dose: 1 drop Documented By: DEMETRA Atorvastatin Calcium (Atorvastatin Calcium 80 Mg Tablet) 80 mg PO BEDTIME KARI Last Admin: 06/06/23 21:14 Dose: 80 mg Documented By: DEMETRA Dextrose (Dextrose 50 % 25 Gm/50 Ml Syringe) 25 gm IVPUSH Q15M PRN; Protocol PRN Reason: per Hypoglycemia Standing Ord. Docusate Sodium (Docusate Sodium 100 Mg Capsule) 100 mg PO DAILY PRN PRN Reason: Constipation Last Admin: 06/05/23 21:52 Dose: 100 mg Documented By: MIKALA Enoxaparin Sodium (Enoxaparin Sodium 40 Mg/0.4 Ml Syringe) 40 mg SUBCUT BEDTIME KARI Last Admin: 06/06/23 21:13 Dose: 40 mg Documented By: DEMETRA Furosemide (Furosemide 100 Mg/10 Ml Vial) 60 mg IVPUSH DAILY KARI; Protocol Last Admin: 06/07/23 07:56 Dose: 60 mg Documented By: MELVIN Glucose (Glucose Gel 15 Gm Gel..Gram.) 15 gm PO Q15M PRN; Protocol PRN Reason: per Hypoglycemia Standing Ord. Hydromorphone HCl (Hydromorphone Hcl 1 Mg/Ml Syringe) 0.5 mg IVPUSH Q4H PRN; Protocol PRN Reason: Pain, Severe (Pain Scale 7-10) Last Admin: 06/07/23 10:49 Dose: 0.5 mg Documented By: MELVIN Piperacillin Sod/Tazobactam (Sod 3.375 gm/ Sodium Chloride) 50 mls @ 100 mls/hr IV Q6H [facility] Last Infusion: 06/07/23 11:02 Dose: Infused Documented By: MELVIN Vancomycin HCl 750 mg/ Sodium (Chloride) 265 mls @ 265 mls/hr IV Q12H [facility] Last Admin: 06/07/23 10:49 Dose: 265 mls/hr Documented By: MELVIN Insulin Human Lispro (Insulin Lispro 100 Unit/Ml 3 Ml Vial) 0 unit SUBCUT QIDACHS [facility]; Protocol Last Admin: 06/07/23 11:45 Dose: 4 unit Documented By: MELVIN Lisinopril (Lisinopril 40 Mg Tablet) 40 mg PO BEDTIME KARI; Protocol Last Admin: 06/06/23 21:14 Dose: 40 mg Documented By: DEMETRA Melatonin (Melatonin 3 Mg Tablet) 6 mg PO BEDTIME PRN PRN Reason: Insomnia Omeprazole (Omeprazole 20 Mg Capsule.) 20 mg PO DAILY [facility] Last Admin: 06/07/23 07:57 Dose: 20 mg Documented By: MELVIN Ondansetron HCl (Ondansetron Hcl 4 Mg/2 Ml Vial) 4 mg IVPUSH Q8H PRN PRN Reason: Nausea and Vomiting Pharmacy Consult (Consult Rx Vancomycin Dosing) 1 each MISCELLANE DAILY PRN PRN Reason: Consult order Senna (Sennosides 8.6 Mg Tablet) 17.2 mg PO BEDTIME PRN PRN Reason: Constipation Last Admin: 06/05/23 21:52 Dose: 17.2 mg Documented By: MIKALA Sodium Chloride (0.9 % Sodium Chloride Flush 3 Ml Syringe) 3 ml IVFLUSH QSHIFT [facility] Last Admin: 06/07/23 07:57 Dose: 3 ml Documented By: MELVIN Labs 06/07/23 06:05 06/07/23 06:05 Labs: Laboratory Results - last 24 hr 06/06/23 06/06/23 06/06/23 15:24 20:38 21:49 MCV MCH MCHC RDW Plt Count MPV Absolute Nucleated RBC Nucleated RBC % (auto) Estim Creat Clear Calc Estimated GFR POC Glucose 183 H 170 H Random Vancomycin 12.5 L 06/07/23 06/07/23 06/07/23 06:05 07:18 11:16 MCV 88.9 MCH 27.5 MCHC 31.0 RDW 16.3 H Plt Count 220 MPV 11.3 Absolute Nucleated RBC 0.000 Nucleated RBC % (auto) 0.0 Estim Creat Clear Calc 73.2 Estimated GFR > 60 POC Glucose 166 H 202 H Random Vancomycin Microbiology Microbiology Results: Microbiology 06/04/23 18:08 Blood Culture - Preliminary Blood - Venous No growth after 48 hours. 06/04/23 17:50 Blood Culture - Preliminary Blood - Venous No growth after 48 hours. 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 and who has multiple medical comorbidities including CHF, DM2, asthma, BPH, PVD, BPH, hyperlipidemia & s/p R AKA who presents to the ER with Cellulitis of the LLE erythema improving but still with significant swelling and pain US negative for DVT Continue IV Vanco +Zosyn started 06/04 Continue IV lasix for leg edema Discussed importance of keeping leg elevated - nurse reports pt sits up with leg over the side of the bed Blood cultures negative to date ID consult pending Acute lactic acidosis d/t metformin not sepsis, improved with IVF Type 2 Diabetes Mellitus hold metformin d/t lactic acidosis POC, diabetic diet Hypertension Lisinopril 5Hyperlipidemia -Atorvastatin 6mild persistent Asthma, no exacerbation Combivent Respimat and PRN Albuterol DVT: SC Lovenox CODE STATUS: Full code attending Dr. Etienne Ongoing inpatient stay for significant cellulitis cover >50% of lower extremity, need for IV Abx and close monitoring in a diabetic patient with risk for progressive infection Quality Stroke Does the patient have a stroke diagnosis?: No VTE Prior VTE?: No VTE Risk Level:: Medical - moderate - high VTE Device Contraindication: Procedure Contraindicated VTE Drug Contraindication: N/A - Med Ordered
--- NOTE | 2023-06-07 16:22 | HO.WOUND ---
Wound Consult: Initial 62yr old male admitted to [facility] on 06/04/23 23:19- See progress notes and H&P for detailed history.? Wound consult placed for Left Lower Leg assessment? - arrival to bedside Left Leg wound Open to air noted? - see photos included.? Agreeable to assessment and photo documentation. Left Leg - Posterior leg Left Lower Leg Etiology: Cellulitis Wound Bed: Various sized unroofed and intact bulla - serous filled - anterior wound bed with some yellow great slough noted - easily removed with cleansing posterior wound bed with clean and pink Drainage / Odor: Dried yellow palacio creamy drainage noted Edges: ? Irregular Tresa wound: ? Red firm swelling noted Pain: Mild discomfort noted Goals of Treatment: ? Moist wound healing to allow for autolytic debridement Recommendations: 1. Turn and Reposition every 2 hours and as needed for patient comfort. 2. Off Load all bony prominences with use of pillows and heel boots and or protective foam dressings. 3. Provide adequate and supplemental nutrition. 4. Maintain blood glucose levels per Providers orders. 5. Left Leg - Elevate Left lower leg - Cleanse with NS, pat dry.? Apply single layer xeroform to wound beds? cover with dry gauze wrap, change daily. Consider consultation to vascular service given pts vascular history along with diabetes. Pt has treated with Dr. Dia in the past. May consider outpt follow up as this does not appear acute at this time. Re-consult wound care Nurse for wound deterioration.
[2023-06-07 16:45] LABS: Glucose, Whole Blood 191 mg/dL (60-115)
[2023-06-07 16:54] LABS: CRP High Sensitivity >10.0 mg/L
[2023-06-07] MEDS: Artificial Tears 15 ML DROPS 1 DROP EYE-BOTH (18:40)
[2023-06-07 20:35] LABS: Glucose, Whole Blood 229 mg/dL (60-115)
[2023-06-07] MEDS: lisinopriL 40 MG TABLET PO (20:39)
[2023-06-07] MEDS: Atorvastatin Calcium 80 MG TABLET PO (20:39)
[2023-06-07] MEDS: Enoxaparin Sodium 40 MG/0.4 ML SYRINGE SUBCUT (20:39)
[2023-06-07 21:38] LABS: Vancomycin Random 14.2 mcg/mL (15-20)
--- NOTE | 2023-06-07 21:58 | HE.PHANOTE ---
VANCO DOSE ADJUSTMENT BASED ON SCR AND TROUGH OF 14.2 DOSE CONTINUED AT 750 Q 12H. NEXT LEVEL 06/09 @ 0900
--- NOTE | 2023-06-08 00:11 | P.CNID_ITS ---
History of Present Illness Data of Consult Service Date: 06/07/23 Requesting physician: Sylvia Smith Primary Care Provider: Loli Augustin MD HPI Reason for consult: left leg redness,blisters He fell in apartment and came to ER. Area appears swollen and blistered and red of left leg. He has right AKA Review of Systems 2 Review of Systems: Yes all other systems are reviewed and are negative [facility] Past Medical History Medical History History of right above knee amputation PAD (peripheral artery disease) Infection of amputation site of lower extremity BKA stump complication Below-knee amputation of right lower extremity BPH (benign prostatic hyperplasia) Cardiomyopathy CAD (coronary artery disease) History of peripheral vascular disease Coronary artery disease Cardiomyopathy Essential hypertension Type 2 diabetes mellitus with unspecified complications Abscess, perineum Asthma High cholesterol HTN (hypertension) Diabetes Functional capacity: uses cane/walker Family History Family History Father No problems noted. Mother Diabetes HTN (hypertension) Sister No problems noted. Sister Diabetes HTN (hypertension) Sister No problems noted. Family history: reviewed and not pertinent Surgical History Surgical History History of surgical removal of pilonidal cyst Hx of hand surgery Hx of hand surgery History of cardiac cath S/P angiogram of extremity Hx of varicose vein stripping Social History Social History Household Members: None Household Members Other:: SELF Housing: Apartment Housing Other:: elderly housing Are you a primary child care development specialist to a significant other at home: No Do you presently have visiting nurse or other home services: Yes Alcohol intake: never Comment: Refused bed and chair alarm. Patient Tobacco Use Status: Never used Tobacco Tobacco use type: Cigarette Cigarette Packs Per Day: 0.5 Cigarettes Per Day: 5 Years Smoked: 15+/- Second Hand Smoke Exposure: No Advance Directives Date on File: 12/10/20 service: No Current occupational status: disabled Meds Allergies Allergy/AdvReac Type Severity Reaction Status Date / Time No Known Allergies Allergy Verified 04/27/23 14:10 Active Medications: Current Medications Acetaminophen (Acetaminophen 325 Mg Tablet) 650 mg PO Q6H PRN PRN Reason: Pain, Mild (Pain Scale 1-3) Last Admin: 06/05/23 21:52 Dose: 650 mg Hydrocodone Bitart/Acetaminophen (Hydrocodone Bit/Acetam 5/325 Tablet) 1 tab PO Q4H PRN PRN Reason: Pain, Moderate(Pain Scale 4-6) Last Admin: 06/07/23 18:40 Dose: 1 tab Albuterol Sulfate (Albuterol Sulfate (0.083%) 2.5 Mg/3 Ml Vial.Neb) 2.5 mg INHALE Q4H PRN PRN Reason: Wheezing Albuterol/Ipratropium (Albuterol/Iprat 2.5/0.5mg 3 Ml Ampul.Neb) 3 ml INHALE Q6H KARI Last Admin: 06/07/23 18:44 Dose: 3 ml Artificial Tears (Artificial Tears 15 Ml Drops) 1 drop EYE-BOTH Q4H PRN PRN Reason: Dry Eyes Last Admin: 06/07/23 18:40 Dose: 1 drop Atorvastatin Calcium (Atorvastatin Calcium 80 Mg Tablet) 80 mg PO BEDTIME KARI Last Admin: 06/07/23 20:39 Dose: 80 mg Dextrose (Dextrose 50 % 25 Gm/50 Ml Syringe) 25 gm IVPUSH Q15M PRN; Protocol PRN Reason: per Hypoglycemia Standing Ord. Docusate Sodium (Docusate Sodium 100 Mg Capsule) 100 mg PO DAILY PRN PRN Reason: Constipation Last Admin: 06/05/23 21:52 Dose: 100 mg Enoxaparin Sodium (Enoxaparin Sodium 40 Mg/0.4 Ml Syringe) 40 mg SUBCUT BEDTIME KARI Last Admin: 06/07/23 20:39 Dose: 40 mg Furosemide (Furosemide 100 Mg/10 Ml Vial) 60 mg IVPUSH DAILY KARI; Protocol Last Admin: 06/07/23 07:56 Dose: 60 mg Glucose (Glucose Gel 15 Gm Gel..Gram.) 15 gm PO Q15M PRN; Protocol PRN Reason: per Hypoglycemia Standing Ord. Hydromorphone HCl (Hydromorphone Hcl 1 Mg/Ml Syringe) 0.5 mg IVPUSH Q4H PRN; Protocol PRN Reason: Pain, Severe (Pain Scale 7-10) Last Admin: 06/07/23 21:37 Dose: 0.5 mg Piperacillin Sod/Tazobactam (Sod 3.375 gm/ Sodium Chloride) 50 mls @ 100 mls/hr IV Q6H [facility] Last Infusion: 06/07/23 21:58 Dose: Infused Vancomycin HCl 750 mg/ Sodium (Chloride) 265 mls @ 265 mls/hr IV Q12H [facility] Last Infusion: 06/07/23 23:54 Dose: Infused Insulin Human Lispro (Insulin Lispro 100 Unit/Ml 3 Ml Vial) 0 unit SUBCUT QIDACHS [facility]; Protocol Last Admin: 06/07/23 20:39 Dose: 4 unit Lisinopril (Lisinopril 40 Mg Tablet) 40 mg PO BEDTIME [facility]; Protocol Last Admin: 06/07/23 20:39 Dose: 40 mg Melatonin (Melatonin 3 Mg Tablet) 6 mg PO BEDTIME PRN PRN Reason: Insomnia Omeprazole (Omeprazole 20 Mg Capsule.Dr) 20 mg PO DAILY [facility] Last Admin: 06/07/23 07:57 Dose: 20 mg Ondansetron HCl (Ondansetron Hcl 4 Mg/2 Ml Vial) 4 mg IVPUSH Q8H PRN PRN Reason: Nausea and Vomiting Pharmacy Consult (Consult Rx Vancomycin Dosing) 1 each MISCELLANE DAILY PRN PRN Reason: Consult order Senna (Sennosides 8.6 Mg Tablet) 17.2 mg PO BEDTIME PRN PRN Reason: Constipation Last Admin: 06/05/23 21:52 Dose: 17.2 mg Sodium Chloride (0.9 % Sodium Chloride Flush 3 Ml Syringe) [address] [facility] Last Admin: 06/07/23 20:39 Dose: 3 ml Home Medications Medication Instructions Recorded Confirmed Last Taken Type albuterol sulfate 2.5 mg/3 mL 2.5 mg inhalation Q4H PRN Wheezing 06/04/23 06/04/23 Unknown History (0.083 %) solution for nebulization albuterol sulfate 90 mcg/actuation 2 puff inhalation Q4H PRN wheezing 06/04/23 06/04/23 Unknown History aerosol inhaler (Ventolin HFA) atorvastatin 80 mg tablet 80 mg PO BEDTIME 06/04/23 06/04/23 Unknown History furosemide 20 mg tablet 60 mg PO DAILY 06/04/23 06/04/23 Unknown History ipratropium 20 mcg-albuterol 100 1 puff inhalation QID 06/04/23 06/04/23 Unknown History mcg/actuation mist for inhalation (Combivent Respimat) lisinopril 40 mg tablet 40 mg PO BEDTIME 06/04/23 06/04/23 Unknown History pantoprazole 20 mg tablet,delayed 20 mg PO QAM 06/04/23 06/04/23 Unknown History release Physical Exam 2 Vital Signs: Vital Signs: Last Vital Signs Temp 98.0 F 06/07/23 23:37 Pulse 76 06/07/23 23:37 Resp 18 06/07/23 23:37 BP 120/60 06/07/23 23:37 Pulse Ox 99 06/07/23 23:37 O2 Del Method Room Air 06/07/23 23:37 O2 Flow Rate 1 06/07/23 00:00 BMI result Body Mass Index 28.9 Const: General: cooperative HEENT: Head: Yes normal to inspection Face and sinus: Yes normal facial exam Mouth: Normal oral and palatal mucosa present Teeth and gingiva: d entition normal Eyes: General: appearance normal, both eyes and all related structures P upils: Equal, round and reactive pupils present Resp: Effort & Inspection: normal respiratory effort Cardio: Rate: regular rate Rhythm: regular rhythm GI: Palpation (GI): Soft to palpation and nontender : General: Yes no CVA tenderness Back/Spine/Pelvis: Back: no CVA tenderness Skin: General skin exam: no rashes or lesions noted Neuro: General: moves all extremities Cranial nerves: Yes Equal, round and reactive pupils present Extrem: Other: right AKA left leg blister and redness General: Yes normal to inspection Psych: Appearance: grossly normal Results Labs 06/07/23 06:05 06/07/23 06:05 Labs: Short CBC 06/07/23 Range/Units 06:05 WBC 10.5 (4.8-10.8) X10*3/uL Hgb 11.4 L (14.0-18.0) g/dl Hct 36.8 L (42.0-52.0) % Plt Count 220 (160-400) X10*3/uL BMP 06/07/23 06:05 Creatinine 1.02 Microbiology Microbiology Results: Microbiology 06/04/23 18:08 Blood - Venous Blood Culture - Preliminary No growth after 48 hours. 06/04/23 17:50 Blood - Venous Blood Culture - Preliminary No growth after 48 hours. Assessment and Plan (1) Cellulitis of left lower extremity: Status: Acute He has fallen on area likely. He has some injury to tissue and likely abrasions with venous insufficiency causing weeping Plan Treat strep with IV Clindamycin 900 mg IV every [address] of Zosyn if not improved tomorrow for 2-[address] Dia followup
[2023-06-08] MEDS: HYDROcodone Bit/Acetam 5/325 TABLET 1 TAB PO (02:56)
[2023-06-08] MEDS: Piperacillin Sodium/Tazobactam 3.375 GM in 0.9 % Sodium Chloride 50 ML IV ×2 (03:29→09:23)
[2023-06-08] MEDS: HYDROmorphone HCl 1 MG/ML SYRINGE 0.5 MG IVPUSH ×4 (04:16→21:05)
[2023-06-08] MEDS: Artificial Tears 15 ML DROPS 1 DROP EYE-BOTH (04:23)
--- NOTE | 2023-06-08 07:22 | P.CDIM_ITS ---
PROVIDER RESPONSE TEXT: To clarify, the appropriate diagnosis supported by the clinical indicators: No, left leg cellulitis is not related to / associated with / due to type 2 DM QUERY TEXT: PHYSICIAN'S DOCUMENTATION REQUEST Date of Query: 06/07/2023 02:40 PM EST Patient Name: Reji Trejo Admit Date: 06/05/2023 Dear Sylvia Smith, A review of the medical record indicates additional documentation may be needed. Please review below and update the documentation accordingly. Documentation includes the conditions of left leg cellulitis and type 2 DM. Clinical Indicators: Per Hospitalist Progress Note 06/07/23: US negative for DVT Continue IV Vanco +Zosyn started 06/04 Continue IV lasix for leg edema Discussed importance of keeping leg elevated - nurse reports pt sits up with leg over the side of the bed Blood cultures negative to date ID consult pending Please clarify the relationship between these conditions: Yes, left leg cellulitis is related to / associated with / due to type 2 DM No, left leg cellulitis is not related to / associated with / due to type 2 DM Other (explain) Clinically unable to determine (explain) Thank you, Za Auguste RN Use of terms such as suspected, likely, concern for, or probable (associated with a specific diagnosi s that is being evaluated, monitored, or treated as if it exists) are acceptable and can be coded in the inpatient se tting, when documented at the time of discharge. Please use your independent medical judgment in providing your response. THIS QUERY IS PART OF THE PERMANENT MEDICAL RECORD
[2023-06-08 07:33] LABS: Glucose, Whole Blood 174 mg/dL (60-115)
[2023-06-08 08:00] VITALS: BP 121/69; PULSE 79; RESP 18; TEMP 36.2; O2SAT 99
[2023-06-08] MEDS: Furosemide 100 MG/10 ML VIAL 60 MG IVPUSH (08:29)
[2023-06-08] MEDS: 0.9 % Sodium Chloride Flush 3 ML SYRINGE IVFLUSH ×3 (08:29→21:05)
[2023-06-08] MEDS: Omeprazole 20 MG CAPSULE.DR PO (08:31)
[2023-06-08] MEDS: Insulin Lispro 100 UNIT/ML 3 ML VIAL SUBCUT ×4 (08:31→21:04)
[2023-06-08] MEDS: vancomycin HCL 750 MG in 0.9 % Sodium Chloride 250 ML 265 MG IV ×2 (10:46→23:07)
[2023-06-08 11:28] LABS: Glucose, Whole Blood 176 mg/dL (60-115)
[2023-06-08] MEDS: Albuterol/Iprat 2.5/0.5MG 3 ML AMPUL.NEB INHALE ×2 (11:34→18:39)
[2023-06-08 11:37] VITALS: PULSE 74; RESP 18; O2SAT 98
--- NOTE | 2023-06-08 13:29 | PM.CNGS ---
History of Present Illness Consult details Consult date: 06/08/23 Reason for consult: wound care Narrative: Complex 62-year-old gentleman well known to me with prior right-sided above knee amputation presents for nonhealing left lower extremity. Has significant edema him weeping lower extremities which brought him into the hospital. He developed significant blistering and started draining serous fluid which brought him in to the hospital. He has a prior history of Congestive heart failure diabetes asthma peripheral vascular disease. He is quite concerned about his overall left lower extremity status. He now presents for vascular evaluation. Review of Systems Review of Systems: Yes all other systems are reviewed and are negative Constitutional: Constitutional: Reports no additional constitutional complaints ENT: Reports Normal hearing present Cardiovascular: Cardiovascular: Denies chest pain, Denies chest pain at rest, Denies chest pain with activity and Denies pedal edema Respiratory: Respiratory: Denies cough Gastrointestinal: Gastrointestinal: Denies abdominal pain Musculoskeletal: Musculoskeletal: Denies abnormal gait, Denies muscle cramps and Denies radiating pain into limb Integumentary/Breasts: Skin/Breast: Denies skin ulcer and Denies wounds Neurologic: Reports Normal hearing present and Denies abnormal gait Psychiatric: Psychiatric: Reports no additional psychiatric complaints PMFSH Past Medical History Medical History History of right above knee amputation PAD (peripheral artery disease) Infection of amputation site of lower extremity BKA stump complication Below-knee amputation of right lower extremity BPH (benign prostatic hyperplasia) Cardiomyopathy CAD (coronary artery disease) History of peripheral vascular disease Coronary artery disease Cardiomyopathy Essential hypertension Type 2 diabetes mellitus with unspecified complications Abscess, perineum Asthma High cholesterol HTN (hypertension) Diabetes Functional capacity: uses cane/walker Family History Family History Father No problems noted. Mother Diabetes HTN (hypertension) Sister No problems noted. Sister Diabetes HTN (hypertension) Sister No problems noted. Family history: reviewed and not pertinent Surgical History Surgical History History of surgical removal of pilonidal cyst Hx of hand surgery Hx of hand surgery History of cardiac cath S/P angiogram of extremity Hx of varicose vein stripping Social History Social History Household Members: None Household Members Other:: SELF Housing: Apartment Housing Other:: elderly housing Are you a primary lawn care technician to a significant other at home: No Do you presently have visiting nurse or other home services: Yes Alcohol intake: never Comment: Refused bed and chair alarm. Patient Tobacco Use Status: Never used Tobacco Tobacco use type: Cigarette Cigarette Packs Per Day: 0.5 Cigarettes Per Day: 5 Years Smoked: 15+/- Second Hand Smoke Exposure: No Advance Directives Date on File: 12/10/20 service: No Current occupational status: disabled Meds Allergies Allergy/AdvReac Type Severity Reaction Status Date / Time No Known Allergies Allergy Verified 04/27/23 14:10 Active Medications: Current Medications Acetaminophen (Acetaminophen 325 Mg Tablet) 650 mg PO Q6H PRN PRN Reason: Pain, Mild (Pain Scale 1-3) Last Admin: 06/05/23 21:52 Dose: 650 mg Hydrocodone Bitart/Acetaminophen (Hydrocodone Bit/Acetam 5/325 Tablet) 1 tab PO Q4H PRN PRN Reason: Pain, Moderate(Pain Scale 4-6) Last Admin: 06/08/23 02:56 Dose: 1 tab Albuterol Sulfate (Albuterol Sulfate (0.083%) 2.5 Mg/3 Ml Vial.Neb) 2.5 mg INHALE Q4H PRN PRN Reason: Wheezing Albuterol/Ipratropium (Albuterol/Iprat 2.5/0.5mg 3 Ml Ampul.Neb) 3 ml INHALE Q6H KARI Last Admin: 06/08/23 11:34 Dose: 3 ml Artificial Tears (Artificial Tears 15 Ml Drops) 1 drop EYE-BOTH Q4H PRN PRN Reason: Dry Eyes Last Admin: 06/08/23 04:23 Dose: 1 drop Atorvastatin Calcium (Atorvastatin Calcium 80 Mg Tablet) 80 mg PO BEDTIME KARI Last Admin: 06/07/23 20:39 Dose: 80 mg Dextrose (Dextrose 50 % 25 Gm/50 Ml Syringe) 25 gm IVPUSH Q15M PRN; Protocol PRN Reason: per Hypoglycemia Standing Ord. Docusate Sodium (Docusate Sodium 100 Mg Capsule) 100 mg PO DAILY PRN PRN Reason: Constipation Last Admin: 06/05/23 21:52 Dose: 100 mg Enoxaparin Sodium (Enoxaparin Sodium 40 Mg/0.4 Ml Syringe) 40 mg SUBCUT BEDTIME KARI Last Admin: 06/07/23 20:39 Dose: 40 mg Furosemide (Furosemide 100 Mg/10 Ml Vial) 60 mg IVPUSH DAILY [facility]; Protocol Last Admin: 06/08/23 08:29 Dose: 60 mg Glucose (Glucose Gel 15 Gm Gel..Gram.) 15 gm PO Q15M PRN; Protocol PRN Reason: per Hypoglycemia Standing Ord. Hydromorphone HCl (Hydromorphone Hcl 1 Mg/Ml Syringe) 0.5 mg IVPUSH Q4H PRN; Protocol PRN Reason: Pain, Severe (Pain Scale 7-10) Last Admin: 06/08/23 08:36 Dose: 0.5 mg Piperacillin Sod/Tazobactam (Sod 3.375 gm/ Sodium Chloride) 50 mls @ 100 mls/hr IV Q6H [facility] Last Infusion: 06/08/23 09:57 Dose: Infused Vancomycin HCl 750 mg/ Sodium (Chloride) 265 mls @ 265 mls/hr IV Q12H [facility] Last Infusion: 06/08/23 11:50 Dose: Infused Insulin Human Lispro (Insulin Lispro 100 Unit/Ml 3 Ml Vial) 0 unit SUBCUT QIDACHS [facility]; Protocol Last Admin: 06/08/23 12:09 Dose: 2 unit Lisinopril (Lisinopril 40 Mg Tablet) 40 mg PO BEDTIME [facility]; Protocol Last Admin: 06/07/23 20:39 Dose: 40 mg Melatonin (Melatonin 3 Mg Tablet) 6 mg PO BEDTIME PRN PRN Reason: Insomnia Omeprazole (Omeprazole 20 Mg Capsule.Dr) 20 mg PO DAILY [facility] Last Admin: 06/08/23 08:31 Dose: 20 mg Ondansetron HCl (Ondansetron Hcl 4 Mg/2 Ml Vial) 4 mg IVPUSH Q8H PRN PRN Reason: Nausea and Vomiting Pharmacy Consult (Consult Rx Vancomycin Dosing) 1 each MISCELLANE DAILY PRN PRN Reason: Consult order Senna (Sennosides 8.6 Mg Tablet) 17.2 mg PO BEDTIME PRN PRN Reason: Constipation Last Admin: 06/05/23 21:52 Dose: 17.2 mg Sodium Chloride (0.9 % Sodium Chloride Flush 3 Ml Syringe) 3 ml IVFLUSH QSHIFT KARI Last Admin: 06/08/23 08:29 Dose: 3 ml Home Medications Medication Instructions Recorded Confirmed Last Taken Type albuterol sulfate 2.5 mg/3 mL 2.5 mg inhalation Q4H PRN Wheezing 06/04/23 06/04/23 Unknown History (0.083 %) solution for nebulization albuterol sulfate 90 mcg/actuation 2 puff inhalation Q4H PRN wheezing 06/04/23 06/04/23 Unknown History aerosol inhaler (Ventolin HFA) atorvastatin 80 mg tablet 80 mg PO BEDTIME 06/04/23 06/04/23 Unknown History furosemide 20 mg tablet 60 mg PO DAILY 06/04/23 06/04/23 Unknown History ipratropium 20 mcg-albuterol 100 1 puff inhalation QID 06/04/23 06/04/23 Unknown History mcg/actuation mist for inhalation (Combivent Respimat) lisinopril 40 mg tablet 40 mg PO BEDTIME 06/04/23 06/04/23 Unknown History pantoprazole 20 mg tablet,delayed 20 mg PO QAM 06/04/23 06/04/23 Unknown History release Physical Exam Vital Signs: Vital Signs: Last Vital Signs Temp 97.2 F 06/08/23 08:00 Pulse 74 06/08/23 11:37 Resp 18 06/08/23 11:37 BP 121/69 06/08/23 08:00 Pulse Ox 99 06/08/23 08:00 O2 Del Method Nasal Cannula 06/08/23 08:00 O2 Flow Rate 1 06/08/23 08:00 BMI result Body Mass Index 28.9 Const: General: cooperative, healthy appearing and comfortable Orientation/consciousness: oriented to person, oriented to place and oriented to time HEENT: Head: Yes normal to inspection Neck: Neck: Yes normal visual inspection Carotids: no bruits Chest: Chest palpation & inspection: normal inspection of the chest Resp: Effort & Inspection: normal respiratory effort and able to speak in complete sentences Auscultation: clear to auscultation bilaterally, no crackles, no rales, no rhonchi and no wheezes Cardio: Rate: regular rate Rhythm: regular rhythm Heart sounds: S1 normal heart sound present and S2 normal heart sound present Bruits: no carotid bruits Peripheral pulses: Peripheral pulses 2+ throughout GI: Inspection: Yes normal to inspection Skin: Other: Right stump well-healed Left leg significant edema. Pretibial blistering with serous fluid pouring out of there. Wounds: no wounds Hair: normal Neuro: General: oriented to person, oriented to place and oriented to time Cranial nerves: Yes CN's II-XII intact bilaterally and Yes Normal hearing present Cognition (Neuro): normal cognition Motor exam (neuro): 5/5 motor strength present throughout Extrem: Other: venous exam: No significant superficial varicosities or spider telangiectasias, minimal edema General: No clubbing, No cyanosis and No edema Psych: Appearance: grossly normal Mental Status: mental status grossly normal Speech and movement: Normal speech and movement present Results Labs 06/07/23 06:05 06/07/23 06:05 Labs: Abnormal lab results 06/05/23 06/07/23 06/07/23 Range/Units 07:39 16:28 20:21 POC Glucose 191 H 229 H (60-115) mg/dL C-React Prot High Sens >10.0 H mg/L Random Vancomycin (15-20) mcg/mL 06/07/23 06/08/23 06/08/23 Range/Units 21:17 07:19 11:24 POC Glucose 174 H 176 H (60-115) mg/dL C-React Prot High Sens mg/L Random Vancomycin 14.2 L (15-20) mcg/mL All other labs normal. Assessment and Plan (1) PAD (peripheral artery disease): Status: Acute Plan In short patient has nonhealing left lower extremity ulcers. He does have a known history of peripheral vascular disease along with an SFA occlusion which is noted on prior CT scan. He at the current time will need to resolve some of this edema prior to any intervention. Unclear what the source of this is it does not appear to be venous but may more him more related to his cardiac conditions. He has an ejection fraction of 20-25% and I am concerned that this may be more cardiac in nature. We will continue to follow with you. Once edema resolves we can continue to workup his arterial status for that left leg. Thank you for allowing us to assist in his care. Procedures Date of Service Date of Service: 06/08/23
--- NOTE | 2023-06-08 14:28 | P.PNIM_ITS ---
Subjective Subjective Date of Service: 06/08/23 Interval History: Follow up for left leg cellulitis pt reporting ongoing pain and swelling Review of Systems Review of Systems: Yes all other systems are reviewed and are negative Constitutional Constitutional: Denies chills and Denies fever(s) Cardiovascular Cardiovascular: Denies chest pain Respiratory Respiratory: Denies cough Physical Exam 2 Vital Signs: Vital Signs: Last Vital Signs Temp 97.2 F 06/08/23 08:00 Pulse 74 06/08/23 11:37 Resp 18 06/08/23 11:37 BP 121/69 06/08/23 08:00 Pulse Ox 99 06/08/23 08:00 O2 Del Method Nasal Cannula 06/08/23 08:00 O2 Flow Rate 1 06/08/23 08:00 BMI result Body Mass Index 28.9 Objective Data Active Medications Acetaminophen (Acetaminophen 325 Mg Tablet) 650 mg PO Q6H PRN PRN Reason: Pain, Mild (Pain Scale 1-3) Last Admin: 06/05/23 21:52 Dose: 650 mg Documented By: MIKALA Hydrocodone Bitart/Acetaminophen (Hydrocodone Bit/Acetam 5/325 Tablet) 1 tab PO Q4H PRN PRN Reason: Pain, Moderate(Pain Scale 4-6) Last Admin: 06/08/23 02:56 Dose: 1 tab Documented By: DEMETRA Albuterol Sulfate (Albuterol Sulfate (0.083%) 2.5 Mg/3 Ml Vial.Neb) 2.5 mg INHALE Q4H PRN PRN Reason: Wheezing Albuterol/Ipratropium (Albuterol/Iprat 2.5/0.5mg 3 Ml Ampul.Neb) 3 ml INHALE Q6H [facility] Last Admin: 06/08/23 11:34 Dose: 3 ml Documented By: KIM Artificial Tears (Artificial Tears 15 Ml Drops) 1 drop EYE-BOTH Q4H PRN PRN Reason: Dry Eyes Last Admin: 06/08/23 04:23 Dose: 1 drop Documented By: DEMETRA Atorvastatin Calcium (Atorvastatin Calcium 80 Mg Tablet) 80 mg PO BEDTIME [facility] Last Admin: 06/07/23 20:39 Dose: 80 mg Documented By: DEMETRA Dextrose (Dextrose 50 % 25 Gm/50 Ml Syringe) 25 gm IVPUSH Q15M PRN; Protocol PRN Reason: per Hypoglycemia Standing Ord. Docusate Sodium (Docusate Sodium 100 Mg Capsule) 100 mg PO DAILY PRN PRN Reason: Constipation Last Admin: 06/05/23 21:52 Dose: 100 mg Documented By: MIKALA Enoxaparin Sodium (Enoxaparin Sodium 40 Mg/0.4 Ml Syringe) 40 mg SUBCUT BEDTIME KARI Last Admin: 06/07/23 20:39 Dose: 40 mg Documented By: DEMETRA Furosemide (Furosemide 100 Mg/10 Ml Vial) 60 mg IVPUSH DAILY [facility]; Protocol Last Admin: 06/08/23 08:29 Dose: 60 mg Documented By: COLT Glucose (Glucose Gel 15 Gm Gel..Gram.) 15 gm PO Q15M PRN; Protocol PRN Reason: per Hypoglycemia Standing Ord. Hydromorphone HCl (Hydromorphone Hcl 1 Mg/Ml Syringe) 0.5 mg IVPUSH Q4H PRN; Protocol PRN Reason: Pain, Severe (Pain Scale 7-10) Last Admin: 06/08/23 08:36 Dose: 0.5 mg Documented By: COLT Piperacillin Sod/Tazobactam (Sod 3.375 gm/ Sodium Chloride) 50 mls @ 100 mls/hr IV Q6H [facility] Last Infusion: 06/08/23 09:57 Dose: Infused Documented By: COLT Vancomycin HCl 750 mg/ Sodium (Chloride) 265 mls @ 265 mls/hr IV Q12H [facility] Last Infusion: 06/08/23 11:50 Dose: Infused Documented By: COLT Insulin Human Lispro (Insulin Lispro 100 Unit/Ml 3 Ml Vial) 0 unit SUBCUT QIDACHS [facility]; Protocol Last Admin: 06/08/23 12:09 Dose: 2 unit Documented By: COLT Lisinopril (Lisinopril 40 Mg Tablet) 40 mg PO BEDTIME [facility]; Protocol Last Admin: 06/07/23 20:39 Dose: 40 mg Documented By: DEMETRA Melatonin (Melatonin 3 Mg Tablet) 6 mg PO BEDTIME PRN PRN Reason: Insomnia Omeprazole (Omeprazole 20 Mg Capsule.) 20 mg PO DAILY [facility] Last Admin: 06/08/23 08:31 Dose: 20 mg Documented By: COLT Ondansetron HCl (Ondansetron Hcl 4 Mg/2 Ml Vial) 4 mg IVPUSH Q8H PRN PRN Reason: Nausea and Vomiting Pharmacy Consult (Consult Rx Vancomycin Dosing) 1 each MISCELLANE DAILY PRN PRN Reason: Consult order Senna (Sennosides 8.6 Mg Tablet) 17.2 mg PO BEDTIME PRN PRN Reason: Constipation Last Admin: 06/05/23 21:52 Dose: 17.2 mg Documented By: MIKALA Sodium Chloride (0.9 % Sodium Chloride Flush 3 Ml Syringe) [facility] Last Admin: 06/08/23 08:29 Dose: 3 ml Documented By: INGRISIC Labs 06/07/23 06:05 06/07/23 06:05 Labs: Laboratory Results - last 24 hr 06/05/23 06/07/23 06/07/23 07:39 16:28 20:21 Hold Purple Top Estim Creat Clear Calc Estimated GFR POC Glucose 191 H 229 H C-React Prot High Sens >10.0 H Random Vancomycin 06/07/23 06/08/23 06/08/23 21:17 05:22 07:19 Hold Purple Top SEE NOTE Estim Creat Clear Calc Estimated GFR POC Glucose 174 H C-React Prot High Sens Random Vancomycin 14.2 L 06/08/23 06/08/23 06/08/23 11:24 13:12 13:12 Hold Purple Top Estim Creat Clear Calc Cancelled Cancelled Estimated GFR Cancelled POC Glucose 176 H C-React Prot High Sens Random Vancomycin 06/08/23 13:12 Hold Purple Top Estim Creat Clear Calc Estimated GFR Cancelled POC Glucose C-React Prot High Sens Random Vancomycin Assessment and Plan (1) Cellulitis of left lower extremity: Status: Acute Plan 62 year old male whose history was obtained with the assistance of a medical social worker and who has multiple medical comorbidities including CHF, DM2, asthma, BPH, PVD, BPH, hyperlipidemia & s/p R AKA who presents to the ER with Cellulitis of the LLE erythema improving but still with significant swelling and pain US negative for DVT Continue IV Vanco +Zosyn started 06/04 Continue IV lasix for leg edema Discussed importance of keeping leg elevated - nurse reports pt sits up with leg over the side of the bed Blood cultures negative to date ID consult> start Clindamycin 900mg Q8hrs in place of zosyn Seen by vascular surgery>treat edema then arterial status workup (o/p vs i/p) Acute lactic acidosis d/t metformin not sepsis, improved with IVF Type 2 Diabetes Mellitus hold metformin d/t lactic acidosis POC, diabetic diet Hypertension Lisinopril Hyperlipidemia Atorvastatin mild persistent Asthma, no exacerbation Combivent Respimat and PRN Albuterol DVT: SC Lovenox CODE STATUS: Full code attending Dr. Etienne Ongoing inpatient stay for significant cellulitis cover >50% of lower extremity, need for IV Abx and close monitoring in a diabetic patient with risk for progressive infection Quality Stroke Does the patient have a stroke diagnosis?: No VTE Prior VTE?: No VTE Risk Level:: Medical - moderate - high VTE Device Contraindication: Procedure Contraindicated VTE Drug Contraindication: N/A - Med Ordered
[2023-06-08 15:43] VITALS: BP 140/77; PULSE 90; RESP 18; TEMP 36.1; O2SAT 99
[2023-06-08] MEDS: Clindamycin Phosphate/D5W 900 MG/50 ML PIGGYBACK 50 MG IV ×2 (15:47→22:23)
[2023-06-08 16:34] LABS: Glucose, Whole Blood 163 mg/dL (60-115)
[2023-06-08 18:40] VITALS: PULSE 89; RESP 18; O2SAT 99
[2023-06-08 20:25] LABS: Glucose, Whole Blood 201 mg/dL (60-115)
[2023-06-08] MEDS: lisinopriL 40 MG TABLET PO (21:04)
[2023-06-08] MEDS: Atorvastatin Calcium 80 MG TABLET PO (21:04)
[2023-06-08] MEDS: Enoxaparin Sodium 40 MG/0.4 ML SYRINGE SUBCUT (21:04)
[2023-06-08 23:20] VITALS: BP 140/63; PULSE 88; RESP 18; TEMP 35.9; O2SAT 98
[2023-06-09] MEDS: HYDROmorphone HCl 1 MG/ML SYRINGE 0.5 MG IVPUSH ×3 (04:33→13:54)
[2023-06-09] MEDS: HYDROcodone Bit/Acetam 5/325 TABLET 1 TAB PO (05:37)
[2023-06-09 06:00] VITALS: BMI 29.3
[2023-06-09] MEDS: Clindamycin Phosphate/D5W 900 MG/50 ML PIGGYBACK 50 MG IV (06:03)
--- NOTE | 2023-06-09 06:17 | PC.NURSE ---
pt speaking Ethiopian only, called employee relations consultant to communicate with the pt. pt request external catheter to place in.provided education importance of elevation of left leg. provided pain meds by eMar. will continue to monitor any changes.
[2023-06-09 06:43] LABS: Creatinine Clr Calc Pharmacy 86.4; Estimated Glomerular Filt Rate > 60
[2023-06-09 07:14] VITALS: BP 124/58; PULSE 86; RESP 18; TEMP 36.6; O2SAT 98
[2023-06-09 07:34] LABS: Glucose, Whole Blood 124 mg/dL (60-115)
[2023-06-09] MEDS: Furosemide 100 MG/10 ML VIAL 60 MG IVPUSH (09:00)
[2023-06-09] MEDS: Omeprazole 20 MG CAPSULE.DR PO (09:00)
[2023-06-09] MEDS: 0.9 % Sodium Chloride Flush 3 ML SYRINGE IVFLUSH (09:08)
--- NOTE | 2023-06-09 09:19 | P.PNVS_ITS ---
Subjective Subjective Date of Service: 06/09/23 Patient reports: no new complaints Interval history: Patient seen and examined. The no significant events overnight. Reports that he is frustrated being in the hospital. In continues to have significant drainage from the left lower extremity. Now for routine follow-up. Physical Exam Vital Signs: Vital Signs: Last Vital Signs Temp 98 F 06/09/23 07:14 Pulse 86 06/09/23 07:14 Resp 18 06/09/23 07:14 BP 124/58 L 06/09/23 07:14 Pulse Ox 98 06/09/23 07:14 O2 Del Method Room Air 06/09/23 07:14 O2 Flow Rate 1 06/08/23 08:00 BMI result Body Mass Index 29.3 Const: General: cooperative, healthy appearing and no acute distress Orientation/consciousness: oriented to person, oriented to place and oriented to time HEENT: Head: Yes normal to inspection Neck: Carotids: no bruits Chest: Chest palpation & inspection: normal inspection of the chest Resp: Effort & Inspection: normal respiratory effort and able to speak in complete sentences Auscultation: clear to auscultation bilaterally Cardio: Rate: regular rate Heart sounds: S1 normal heart sound present and S2 normal heart sound present GI: Inspection: Yes normal to inspection Skin: Other: Left lower extremity +2 to +3 edema. Serous drainage. Pretibial ulcerations. General skin exam: no rashes or lesions noted Wounds: no wounds Neuro: General: oriented to person, oriented to place, oriented to time and CN's II-XI intact bilaterally Extrem: General: Yes normal to inspection, Yes full ROM and Yes no clubbing, cyanosis or edema Psych: Appearance: grossly normal and well kempt Speech and movement: Normal speech and movement present Affect: normal affect Progress Note: A&P Assessment and plan (1) Cellulitis of left lower extremity: Status: Acute Assessment and Plan: In short patient has significant swelling of the left lower extremity. Unclear if he is compliant with his medications. At the current time would recommend only local wound care and compression as tolerated. I did discuss with the patient the importance of keeping the leg elevated with certified court interpreter present. Stable from my perspective for discharge. Can see us as an outpatient. Will write for discharge wound care. Time Spent With Patient Time: Total time managing care of this patient today ____ minutes. Procedures Date of Service Date of Service: 06/09/23 Quality Stroke Does the patient have a stroke diagnosis?: No VTE Prior VTE?: No VTE Risk Level:: Medical - moderate - high VTE Device Contraindication: Procedure Contraindicated VTE Drug Contraindication: N/A - Med Ordered
[2023-06-09 09:46] LABS: Vancomycin Random 15.3 mcg/mL (15-20)
--- NOTE | 2023-06-09 10:18 | HE.PHANOTE ---
VANCOMYCIN DOSE ADJUSTMENT BASED ON SCR AND TROUGH OF 15.3 DOSE CONTINUED AT 750 Q 12. NEXT LEVEL 06/10@2100
[2023-06-09] MEDS: vancomycin HCL 750 MG in 0.9 % Sodium Chloride 250 ML 265 MG IV (10:42)
--- NOTE | 2023-06-09 11:02 | MHC.CM.PN ---
pt being dcd today,amb booked for 230 ,,raúl allena notified of dc .message left for suellen leal at [facility] /protective of the dc
[2023-06-09] MEDS: Albuterol/Iprat 2.5/0.5MG 3 ML AMPUL.NEB INHALE (11:19)
[2023-06-09 11:21] VITALS: PULSE 84; RESP 20; O2SAT 98
[2023-06-09 11:21] LABS: Glucose, Whole Blood 204 mg/dL (60-115)
--- NOTE | 2023-06-09 12:03 | PM.DS ---
DS: Providers Provider Date of Service: 06/09/23 Date of admission: 06/04/23 23:19 Primary care physician: Loli Augustin MD Consults: 06/05/23 09:39 Consult to Infectious Diseases Routine Consulting Provider: [facility] Infectious Disease Reason for consultation: extensive cellulitis of the leg 06/06/23 19:11 Consult to Wound Care Routine Reason for consultation: left leg cellulitis with open blister Has provider been notified: Yes 06/08/23 08:20 Consult to Vascular Surgery Routine Consulting Provider: [facility] Vascular Services Reason for consultation: erythema and edema to LLE DS: Diagnosis Discharge Diagnosis (1) Cellulitis of left lower extremity: Status: Acute DS: Summary Hospital Course Hospital Course: history and physical as per admitting provider. Patient is a 62 year old male whose history was obtained with the assistance of a automotive parts interpreter and who has multiple medical comorbidities including CHF, DM2, asthma, BPH, PVD, BPH, hyperlipidemia & s/p R AKA who presents to the emergency room complaining of worsening LLE pain & swelling of the LLE for the past 5 days. He has a history of PVD and sees Dr. Dia and reports LLE swelling for the past month during which time he also developed a blister on the anterior aspect of the left dennis which has since burst and is now draining clear fluid. He rates his pain at an 8/10 and it is localized to the left leg/dennis area. He denies any preceding trauma and also denies any associated fevers or chills. Work up done in the emergency room was significant for a leucocytosis of 12.7 k/mm3 and elevated lactic acid at 3.2. He was started on IV Zosyn and Vancomycin for cellulitis and admission requested. His main complaint during my evaluation was pain in the affected limb. 62-year-old man treated for left lower extremity cellulitis with history of vascular disease and diabetes. Initially to the vancomycin and Zosyn then changed to clindamycin. Seen and evaluated by vascular surgery with no recommendation for treatment at this time just treating edema with diuretics and Canelo wraps at home. Patient should continue clindamycin and doxycycline to complete treatment, continue to take IV diuretics to assist with decrease in edema, Canelo wraps and elevation of extremity. Patient also had an ultrasound of left lower extremity which was negative for DVT. she will be sent home with services and will need wound care by visiting nurse. Diabetes mellitus type 2. Continue home medications Hypertension. Continue lisinopril Hyperlipidemia. Continue statin Mild persistent asthma. No exacerbation during hospitalization. Continue home inhalers Time Attestation Discharge coordination time: Greater than 30 minutes Quality: Safe Use of Opioids Does Pt have an Active Cancer Diagnosis on the Problem List?: No Quality: Stroke Does the patient have a stroke diagnosis?: No Physical Exam Vital Signs: Vital Signs: Last Vital Signs Temp 98 F 06/09/23 07:14 Pulse 84 06/09/23 11:21 Resp 20 06/09/23 11:21 BP 124/58 L 06/09/23 07:14 Pulse Ox 98 06/09/23 07:14 O2 Del Method Room Air 06/09/23 07:14 O2 Flow Rate 1 06/08/23 08:00 BMI result Body Mass Index 29.3 Appearing in no acute distress head is normocephalic atraumatic eyes pupils are PERRLA sclera is anicteric mouth throat mucous membranes are intact and moist neck is supple no lymphadenopathy, no JVD noted lung sounds are clear to auscultation heart regular rate rhythm, clear S1, S2 positive bowel sounds, abdomen is soft, nontender neuro patient is alert x3, no focal deficits Mild erythema to left lower extremity and foot, unroofed, intact bulla, wound bed with yellow slough DS: Data Data Completed and Pending Completed studies during hospitalization [Text1]: Procedures Detachment at Right Lower Leg, Mid, Open Approach (12/21/22) Detachment at Right Upper Leg, Mid, Open Approach (03/16/23) Drainage of Perineum Skin, External Approach (12/10/20) Excision of Right Upper Leg Muscle, Open Approach (01/14/23) Insertion of Infusion Device into Superior Vena Cava, Percutaneous Approach (01/14/23) Introduction of Anesthetic Agent into Peripheral Nerves and Plexi, Percutaneous Approach (01/14/23) Ultrasonography of Superior Vena Cava, Guidance (01/14/23) Labs on day of discharge: Laboratory Results - last 24 hr 06/08/23 06/08/23 06/08/23 13:12 13:12 13:12 Hold Purple Top Creatinine Cancelled Cancelled Estim Creat Clear Calc Cancelled Cancelled Estimated GFR Cancelled POC Glucose Random Vancomycin 06/08/23 06/08/23 06/08/23 13:12 16:11 19:52 Hold Purple Top Creatinine Estim Creat Clear Calc Estimated GFR Cancelled POC Glucose 163 H 201 H Random Vancomycin 06/09/23 06/09/23 06/09/23 05:24 07:17 09:13 Hold Purple Top SEE NOTE Creatinine 0.87 Estim Creat Clear Calc 86.4 Estimated GFR > 60 POC Glucose 124 H Random Vancomycin 15.3 06/09/23 11:16 Hold Purple Top Creatinine Estim Creat Clear Calc Estimated GFR POC Glucose 204 H Random Vancomycin Preliminary micro results at discharge 06/04/23 18:08 Blood Culture - Preliminary Blood - Venous No growth after 48 hours. 06/04/23 17:50 Blood Culture - Preliminary Blood - Venous No growth after 48 hours. Discharge Plan Discharge Anticipated Discharge Date/Time: 06/09/23 10:28 Patient Disposition: Home Health Service Discharge Diagnosis: Cellulitis of left lower extremity Acute lactic acidosis Referrals: raúl gonzalez [Other] - 1 Week gss/protective [Other] - 1 Week Loli Augustin MD [Primary Care Provider] - 1 Week Justin Dia MD [Physician] - 1 Week Discharge Medications: New clindamycin HCl 300 mg capsule 300 mg PO Q8H Qty: 21 0RF doxycycline hyclate 100 mg tablet 100 mg PO BID Qty: 10 0RF Continued atorvastatin 80 mg tablet 80 mg PO BEDTIME albuterol sulfate 2.5 mg /3 mL (0.083 %) solution for nebulization 2.5 mg inhalation Q4H PRN (Reason: Wheezing) pantoprazole 20 mg tablet,delayed release (DR/EC) 20 mg PO QAM furosemide 20 mg tablet 60 mg PO DAILY albuterol sulfate [Ventolin HFA] 90 mcg/actuation HFA aerosol inhaler 2 puff INHALATION Q4H PRN (Reason: wheezing) lisinopril 40 mg tablet 40 mg PO BEDTIME Combivent Respimat 20-100 mcg/actuation mist 1 puff INHALATION QID Discharge Orders: Discharge Order (Routine); Ordered 06/09/23 Ordered By: Sylvia Smith Diet: Advance to usual diet Activity on Discharge: As tolerated Stand Alone Forms: Patient Portal Discharge page Activity Restrictions/Additional Instructions: Wound care upon discharge: xeroform, 4x4 and Kerlix wrap followed by Canelo wrap to be changed daily and as saturated. Please call Dr. Dia at [phone] for 2 week follow up Care Plan Goals: Recommendations for wound care: 1. Turn and Reposition every 2 hours and as needed for patient comfort. 2. Off Load all bony prominences with use of pillows and heel boots and or protective foam dressings. 3. Provide adequate and supplemental nutrition. 4. Maintain blood glucose levels per Providers orders. 5. Left Leg - Elevate Left lower leg - Cleanse with NS, pat dry.? Apply single layer xeroform to wound beds? cover with dry gauze wrap, change daily. Health Concerns: Cellulitis of left lower extremity Acute lactic acidosis Plan of Treatment: Follow-up with primary care provider as needed Follow-up with vascular surgery as needed Assessment: see discharge summary
[2023-06-09] MEDS: Insulin Lispro 100 UNIT/ML 3 ML VIAL SUBCUT (12:19)
--- NOTE | 2023-06-09 14:18 | W.MHC.F2F ---
Service Date Service Date: 06/09/23 Encounter Date of encounter: 06/09/23 Reasons for Services Signs and symptoms assessed: LLE diabetic wound skin wound edema Reason for nursing home: wound care Homebound: Leaving the home is medically contraindicated at this time without the asist of a device and/or another person due th the listed conditions above and below. Reason homebound: unsteady gait / fall risk Certification: Based on the above findings, I certify that this patient is confined to the home and needs intermittent nursing home care, physical therapy and/or speech therapy, or continues to need occupational therapy. The patient is under my care, and I have initiated the establishment of the plan of care. The patient will be followed by a physician who will periodically review the plan of care. Time Spent With Patient Time: Total time managing care of this patient today ____ minutes.
== END 2023-06-09 15:27 | disposition home health service (06) | DRG 383 ==
LOC: HO.ED 18:44 → HO.EDOVER 23:28 → HO.S3 06-05 05:10
PROVIDERS: Hospitalist; Internal Medicine; Physician Assistant Medical; Admitting Provider Internal Medicine; Emergency Provider Emergency Medicine; PCP Family Medicine; Visit Provider Nurse Practitioner Acute Care
DX: L03.116 Cellulitis of left lower limb (principal); E11.51 Type 2 diabetes mellitus with diabetic peripheral angiopathy without gangrene; I50.9 Heart failure, unspecified; I11.0 Hypertensive heart disease with heart failure; N40.0 Benign prostatic hyperplasia without lower urinary tract symptoms; Z89.611 Acquired absence of right leg above knee; I25.10 Atherosclerotic heart disease of native coronary artery without angina pectoris; E78.5 Hyperlipidemia, unspecified; J45.30 Mild persistent asthma, uncomplicated; Z79.899 Other long term (current) drug therapy
CPT/HCPCS: 36415; 71045; 80048; 80076; 80202; 82550; 82565; 82947; 83605; 83735; 83880; 84484; 85025; 85027; 85610; 86140; 86141; 87040; 93005; 93971; 94640; 99221; 99285; J0736; J1170; J1650; J1885; J1940; J2270; J2543; J3370; S9485

== ENCOUNTER → 2023-06-04 17:34 | Outpatient (BNV) | payer MEDICAID, SELFPAY | PROVIDERS: Admitting Provider Internal Medicine; Emergency Provider Emergency Medicine; Visit Provider Internal Medicine Cardiovascular Disease | DX: I49.1 Atrial premature depolarization (principal); R94.31 Abnormal electrocardiogram [ECG] [EKG] | CPT/HCPCS: 93010 ==

== ENCOUNTER → 2023-06-04 23:19 | Outpatient (BNV) | payer MEDICAID, SELFPAY | PROVIDERS: Admitting Provider Internal Medicine; Emergency Provider Emergency Medicine; PCP Family Medicine; Visit Provider Internal Medicine | DX: L03.116 Cellulitis of left lower limb (principal) | CPT/HCPCS: 99222 ==

== ENCOUNTER → 2023-06-04 23:19 | Outpatient (BNV) | payer MEDICAID, SELFPAY | PROVIDERS: Admitting Provider Internal Medicine; Emergency Provider Emergency Medicine; Visit Provider Internal Medicine | DX: I73.9 Peripheral vascular disease, unspecified (principal); I50.23 Acute on chronic systolic (congestive) heart failure; Z89.611 Acquired absence of right leg above knee; L03.116 Cellulitis of left lower limb; E87.20 Acidosis, unspecified | CPT/HCPCS: 99223; 99232; 99239 ==

== ENCOUNTER → 2023-06-04 23:19 | Outpatient (BNV) | payer MEDICAID, SELFPAY | PROVIDERS: Admitting Provider Internal Medicine; Emergency Provider Emergency Medicine; PCP Family Medicine; Visit Provider Surgery Vascular Surgery | DX: L03.116 Cellulitis of left lower limb (principal) | CPT/HCPCS: 99222; 99232 ==

== ENCOUNTER 2023-06-17 01:01 | Inpatient (IN) | payer MEDICAID, SELFPAY ==
[2023-06-17] VITALS (11 sets, daily range): BP systolic 109–158; BP diastolic 55–92; PULSE 74–98; RESP 16–18; TEMP 36.1–37.2; O2SAT 94–100; BMI 34.7
[2023-06-17 01:36] LABS: MANUAL DIFF FLAG NO
--- NOTE | 2023-06-17 01:38 | PC.NURSE ---
Pt ca&ox4, no signs of distress. Pt reports 10/10 left leg pain. Pt denies all other sx Pt changed into hospital attire. IV line placed. Labs drawn and sent plan of care ongoing.
[2023-06-17 01:43] LABS: Basophils Absolute Auto 0.1 X10*3/uL (0.0-0.2); Basophils Percent Auto 0.6 % (0-2); Eosinophils Absolute Auto 0.2 X10*3/uL (0.0-0.4); Eosinophils Percent Auto 1.2 % (0-4); Hemoglobin 12.4 g/dl (14.0-18.0); Imm Gran Abs Auto 0.07 X10*3/uL (0.00-0.03); Imm Gran Pct Auto 0.5 % (0.0-0.4); Lymphocytes Absolute Auto 1.2 X10*3/uL (1.2-4.9); Lymphocytes Percent Auto 8.4 % (20-40); Mean Corpuscular Hemoglobin 26.4 pg (27.0-33.0); Mean Corpuscular Volume 85.1 fL (80.0-98.0); Mean Platelet Volume 10.3 fL (9.4-12.4); Monocytes Absolute Auto 0.9 X10*3/uL (0.1-1.2); Monocytes Percent Auto 6.6 % (2-11); Neutrophils Absolute Auto 11.6 x10*3/uL (2.0-8.3); Neutrophils Percent Auto 82.7 % (45-73); Platelet Count 385 X10*3/uL (160-400); Red Cell Distribution Width 16.4 % (11.0-16.0); White Blood Count 14.1 X10*3/uL (4.8-10.8)
[2023-06-17 01:58] LABS: Alanine Aminotransferase 23 U/L (0-40); Albumin Level 2.7 g/dL (3.5-5.0); Alkaline Phosphatase 230 U/L (39-117); Anion Gap 13 (12-20); Aspartate Amino Transferase 25 U/L (5-37); Bilirubin Total 0.5 mg/dL (0.0-1.0); Blood Urea Nitrogen 18 mg/dL (9-16); Calcium 7.1 mg/dL (8.4-10.2); Carbon Dioxide 21 mmol/L (22-29); Chloride 107 mmol/L (96-108); Creatinine Clr Calc Pharmacy 104.5; Estimated Glomerular Filt Rate > 60; Glucose Random 213 mg/dL (60-115); Potassium 3.2 mmol/L (3.3-5.1); Sodium 138 mmol/L (135-145); Total Protein 6.1 g/dL (6.5-8.0)
--- NOTE | 2023-06-17 02:49 | PC.NURSE ---
Pt requested and given food and drink. Plan of care ongoing.
--- NOTE | 2023-06-17 02:51 | ED_ITS ---
HPI - Extremity Problem General Chief complaint: Extremity Problem Stated complaint: left leg pain cellulitis Time Seen by Provider: 06/17/23 02:50 Source: patient Mode of arrival: EMS Limitations: language barrier History of Present Illness HPI Narrative: 62 yo male with history of PAD, DM, R AKA, cellulitis, osteo, BPH, asthma, HLD presents emergency department for evaluation of severe pain of the left lower extremity, increased redness increased swelling. Patient was seen in the emergency department on 06/04/2023 for evaluation 1 month of lower extremity edema with weeping lesions. Patient had an ultrasound which was negative for DVT. He was admitted to the hospital that time and treated with IV Lasix, Zosyn and clindamycin.. He was discharged home with diagnosis of cellulitis and CHF. Patient was treated with doxycycline 100 mg t and clindamycin. Patient states that he completed the antibiotics but his symptoms got worse. He states that his left leg is become more red and more swollen especially over the foot. He states that the has been draining clear fluid. He denied fever but he did have chills. He denied nausea, vomiting, diarrhea or weakness. He states he is having severe pain in his left leg in the pain is greater than 10/10. During his hospitalization in the beginning of June, he was seen by by the vascular surgeon, Dr. Dia who did not recommend any intervention Related Data Home Medications Medication Instructions Recorded Confirmed albuterol sulfate 2.5 mg/3 mL 2.5 mg inhalation Q4H PRN Wheezing 06/04/23 06/04/23 (0.083 %) solution for nebulization albuterol sulfate 90 mcg/actuation 2 puff inhalation Q4H PRN wheezing 06/04/23 06/04/23 aerosol inhaler (Ventolin HFA) atorvastatin 80 mg tablet 80 mg PO BEDTIME 06/04/23 06/04/23 furosemide 20 mg tablet 60 mg PO DAILY 06/04/23 06/04/23 ipratropium 20 mcg-albuterol 100 1 puff inhalation QID 06/04/23 06/04/23 mcg/actuation mist for inhalation (Combivent Respimat) lisinopril 40 mg tablet 40 mg PO BEDTIME 06/04/23 06/04/23 pantoprazole 20 mg tablet,delayed 20 mg PO QAM 06/04/23 06/04/23 release Previous Rx's Medication Instructions Recorded clindamycin HCl 300 mg capsule 300 mg PO Q8H #21 caps 06/09/23 doxycycline hyclate 100 mg tablet 100 mg PO BID #10 tabs 06/09/23 Allergies Allergy/AdvReac Type Severity Reaction Status Date / Time No Known Allergies Allergy Verified 04/27/23 14:10 Review of Systems 2 Review of Systems: Yes all other systems are reviewed and are negative [facility] Past Medical History Medical History Right above-knee amputee History of right above knee amputation PAD (peripheral artery disease) Infection of amputation site of lower extremity BKA stump complication Below-knee amputation of right lower extremity BPH (benign prostatic hyperplasia) Cardiomyopathy CAD (coronary artery disease) History of peripheral vascular disease Coronary artery disease Cardiomyopathy Essential hypertension Type 2 diabetes mellitus with unspecified complications Abscess, perineum Asthma High cholesterol HTN (hypertension) Diabetes Surgical History History of surgical removal of pilonidal cyst Hx of hand surgery Hx of hand surgery History of cardiac cath S/P angiogram of extremity Hx of varicose vein stripping Family History Family History Father No problems noted. Mother Diabetes HTN (hypertension) Sister No problems noted. Sister Diabetes HTN (hypertension) Sister No problems noted. Social History Social History Household Members: None Household Members Other:: SELF Housing: Apartment Housing Other:: elderly housing Are you a primary certified caregiver to a significant other at home: No Do you presently have visiting nurse or other home services: Yes Alcohol intake: never Comment: Refused bed and chair alarm. Patient Tobacco Use Status: Never used Tobacco Tobacco use type: Cigarette Cigarette Packs Per Day: 0.5 Cigarettes Per Day: 5 Years Smoked: 15+/- Smoked in Last 30 Days: Yes Second Hand Smoke Exposure: No Use of substances other than those prescribed or required for medical reasons: No Advance Directives: Yes Advance Directives on File: Yes Advance Directives Date on File: 12/10/20 service: No Current occupational status: disabled Physical Exam 2 Vital Signs: Vital Signs: Last Vital Signs Temp 98.1 F 06/17/23 03:35 Pulse 75 06/17/23 03:35 Resp 16 06/17/23 01:36 BP 117/61 06/17/23 03:35 Pulse Ox 100 06/17/23 03:35 O2 Del Method Room Air 06/17/23 03:35 BMI result Body Mass Index 34.7 Vital signs were normal Exam General: Awake, alert in no distress Head: Normocephalic, atraumatic EENT: PERRL, Lids normal, sclera normal, conjunctiva normal, nose normal , ears normal, throat without erythema or exudates Neck: Supple, no adenopathy, no trachea midline or C-spine tenderness Lung: breath sounds symmetric, no wheezing, rales or rhonchi Chest: symmetric movement, nontender Heart: regular rate and rhythm, normal S1, S2 no murmurs or rubs Abdomen: soft, non-tender, nondistended, normal bowel sounds Back: no vertebral tenderness, no CVAT Extremities: Right lower extremity: Above the knee amputation Left lower extremity: Patient has erythema from the foot to knee, erythema is warm to the touch, there is skin breakdown over the pretibial area, patient also has significant edema over the foot, patient severe tenderness with minimal palpation of his leg. Neuro: Awake, alert, oriented, normal speech,moves all extremities symmetrically Psych: Pleasant, cooperative Medications Administered Discontinued Medications Generic Name Dose Route Start Last Admin Trade Name Freq PRN Reason Stop Dose Admin Ceftriaxone Sodium 1 gm/ 50 mls @ 100 mls/hr 06/17/23 03:00 06/17/23 03:25 Sodium Chloride IV 06/17/23 03:29 100 mls/hr ONCE ONE Administration Morphine Sulfate 4 mg 06/17/23 03:00 06/17/23 03:25 Morphine Sulfate 4 Mg/Ml Cartridge IVPUSH 06/17/23 03:01 4 mg ONCE STA Administration Protocol Ondansetron HCl 4 mg 06/17/23 03:00 06/17/23 03:24 Ondansetron Hcl 4 Mg/2 Ml Vial IVPUSH 06/17/23 03:01 4 mg ONCE ONE Administration Medical Decision Making Medical Decision Making MDM Narrative: 03:15 62 yo male with history of PAD, DM, R AKA, cellulitis, osteo, BPH, asthma, HLD presents emergency department for evaluation of severe pain of the left lower extremity, increased redness increased swelling. Patient was admitted to the hospital from 06/04/2023 until 06/09/2023. He was treated with Zosyn and clindamycin and discharged on doxycycline and clindamycin. Patient states that he completed his course of antibiotics but his symptoms got worse. Patient's exam is consistent with cellulitis and peripheral edema. At this time, I do not think that he has an abscess that needs to be drained and that the swelling over his foot is more consistent with edema. Following tests were ordered: CBC, CMP, lactic acid, CRP, ESR, PT/INR, PTT, blood cultures x2. Patient was treated with morphine 4 mg IV, Zofran 4 mg IV, vancomycin 2 g IV and ceftriaxone 1 g IV. Patient's laboratory evaluation did reveal an elevated white blood cell count 14,100 with a left shift otherwise nonspecific. I will discuss admission with the covering hospitalist. 03:47 I did discuss patient's presentation with the covering hospitalist, and the patient will be admitted for further management. Differential Diagnosis 03:15 Differential diagnosis includes was not limited to cellulitis, peripheral edema, abscess, vascular insufficiency Admission/Observation Consideration of admission/observation: Escalation of care including admission/observation considered Lab Data MDM Lab Attestation statement: I reviewed the patient's lab results. My interpretation patient's laboratory evaluation is as follows: WBC elevated 14,000 with left shift 87 neutrophils. Potassium low 3.2. Bicarb low 21. BUN elevated 18. Glucose elevated 213. Calcium low 7.1. Alk-phos elevated to 30. Total protein low 6.1 06/17/23 01:28 06/17/23 01:27 Labs: Lab Results 06/17/23 06/17/23 06/17/23 Range/Units 01:27 01:28 03:16 WBC 14.1 H (4.8-10.8) X10*3/uL RBC 4.70 (4.60-5.80) X10*6/uL Hgb 12.4 L (14.0-18.0) g/dl Hct 40.0 L (42.0-52.0) % MCV 85.1 (80.0-98.0) fL MCH 26.4 L (27.0-33.0) pg MCHC 31.0 (31.0-36.0) g/dl RDW 16.4 H (11.0-16.0) % Plt Count 385 D (160-400) X10*3/uL MPV 10.3 (9.4-12.4) fL Immature Gran % (Auto) 0.5 H (0.0-0.4) % Neut % (Auto) 82.7 H (45-73) % Lymph % (Auto) 8.4 L (20-40) % [place] % (Auto) 6.6 (2-11) % Eos % (Auto) 1.2 (0-4) % Baso % (Auto) 0.6 (0-2) % Lymph # (Auto) 1.2 (1.2-4.9) X10*3/uL [place] # (Auto) 0.9 (0.1-1.2) X10*3/uL Eos # (Auto) 0.2 (0.0-0.4) X10*3/uL Baso # (Auto) 0.1 (0.0-0.2) X10*3/uL Abs Immat Gran (auto) 0.07 H (0.00-0.03) X10*3/uL Absolute Neuts (auto) 11.6 H (2.0-8.3) x10*3/uL Absolute Nucleated RBC 0.000 (0.0-0.012) X10*3/uL Nucleated RBC % (auto) 0.0 (0.0-0.2) /100WBC PT 16.8 H (11.1-13.3) SEC INR 1.4 H (0.9-1.1) APTT 29.3 (26.0-36.4) SEC Sodium 138 (135-145) mmol/L Potassium 3.2 L (3.3-5.1) mmol/L Chloride 107 (96-108) mmol/L Carbon Dioxide 21 L (22-29) mmol/L Anion Gap 13 (12-20) BUN 18 H (9-16) mg/dL Creatinine 0.78 (0.5-1.4) mg/dL Estim Creat Clear Calc 104.5 Estimated GFR > 60 Random Glucose 213 H (60-115) mg/dL Calcium 7.1 L D (8.4-10.2) mg/dL Total Bilirubin 0.5 (0.0-1.0) mg/dL AST 25 (5-37) U/L ALT 23 (0-40) U/L Alkaline Phosphatase 230 H (39-117) U/L C-Reactive Protein 3.64 H (< or = 0.50) mg/dL Total Protein 6.1 L (6.5-8.0) g/dL Albumin 2.7 L (3.5-5.0) g/dL Critical Care Time Critical Care Time Critical Care Time: Yes Total Critical Care Time: 35 Attestation: Critical Care: The patient was critically ill with a high probability of imminent or life threatening deterioration. I spent greater than 30 minutes of discontinuous time evaluating the patient,delivering critical care at the bedside, discussing and evaluating pertinent data with consultants. Critical care time does not include time spent performing separately billable procedures or teaching. Total time spent performing critical care was 35 minutes. Discharge Plan Discharge Clinical Impression: Cellulitis and abscess of left leg Patient Disposition: Admitted As Inpatient
[2023-06-17 03:23] LABS: C Reactive Protein 3.64 mg/dL (< or = 0.50)
[2023-06-17] MEDS: ondansetron HCL 4 MG/2 ML VIAL IVPUSH (03:24)
[2023-06-17] MEDS: cefTRIAXone sodium 1 GM in 0.9 % Sodium Chloride 50 ML IV (03:25)
[2023-06-17] MEDS: Morphine Sulfate 4 MG/ML CARTRIDGE IVPUSH (03:25)
[2023-06-17 03:28] LABS: INTERNATIONAL NORM RATIO 1.4 (0.9-1.1); Prothrombin Time 16.8 SEC (11.1-13.3)
[2023-06-17 03:31] LABS: Partial Thromboplastin Time 29.3 SEC (26.0-36.4)
--- NOTE | 2023-06-17 03:34 | PC.NURSE ---
Labs drawn and sent. Pt medicated per sep. Plan of care ongoing.
[2023-06-17 03:52] LABS: Lactic Acid 3.3 mmol/L (0.5-2.0)
[2023-06-17] MEDS: vancomycin/NS 2,000 MG/500 ML PLAST..BAG 250 MG IV (03:53)
[2023-06-17 03:57] LABS: Erythrocyte Sedimentation Rate 18 MM/HR (0-15)
--- NOTE | 2023-06-17 04:02 | PC.NURSE ---
Pt medicated per sep. Plan of care ongoing.
--- NOTE | 2023-06-17 04:52 | PM.IMHP ---
History of Present Illness Date of Service: 06/17/23 Attending physician on admission: Demian Waggoner Chief Complaint: Worsening pain in the LLE Patient is a 62 year old male whose history was obtained with the assistance of a anchorman and who has multiple medical problems including HFrEF, T2DM (on Insulin), asthma, BPH, PVD (follows up with Dr. 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 He rates his pain at a 10/10 and it is localized to the left leg/dennis area. He denies any associated fevers or chills. Work up done in the emergency room was significant for a leucocytosis of 14.1 k/mm3 with a left shift, elevated lactic acid at 3.3, elevated CRP at 3.64 and low calcium and albumin. He was started on IV Zosyn and Vancomycin for cellulitis and admission requested. His main complaint during my evaluation was significant pain in the affected limb. Review of Systems Review of Systems: Yes all other systems are reviewed and are negative [facility] Medical History Right above-knee amputee History of right above knee amputation PAD (peripheral artery disease) Infection of amputation site of lower extremity BKA stump complication Below-knee amputation of right lower extremity BPH (benign prostatic hyperplasia) Cardiomyopathy CAD (coronary artery disease) History of peripheral vascular disease Coronary artery disease Cardiomyopathy Essential hypertension Type 2 diabetes mellitus with unspecified complications Abscess, perineum Asthma High cholesterol HTN (hypertension) Diabetes Family History Father No problems noted. Mother Diabetes HTN (hypertension) Sister No problems noted. Sister Diabetes HTN (hypertension) Sister No problems noted. Surgical History History of surgical removal of pilonidal cyst Hx of hand surgery Hx of hand surgery History of cardiac cath S/P angiogram of extremity Hx of varicose vein stripping Social History Household Members: None Household Members Other:: SELF Housing: Apartment Housing Other:: elderly housing Are you a primary medicare nurse to a significant other at home: No Do you presently have visiting nurse or other home services: Yes Alcohol intake: never Comment: Refused bed and chair alarm. Patient Tobacco Use Status: Never used Tobacco Tobacco use type: Cigarette Cigarette Packs Per Day: 0.5 Cigarettes Per Day: 5 Years Smoked: 15+/- Smoked in Last 30 Days: Yes Second Hand Smoke Exposure: No Use of substances other than those prescribed or required for medical reasons: No Advance Directives: Yes Advance Directives on File: Yes Advance Directives Date on File: 12/10/20 service: No Current occupational status: disabled Meds Allergies Allergy/AdvReac Type Severity Reaction Status Date / Time No Known Allergies Allergy Verified 04/27/23 14:10 Home Medications Medication Instructions Recorded Confirmed Last Taken Type albuterol sulfate 2.5 mg/3 mL 2.5 mg inhalation Q4H PRN Wheezing 06/04/23 06/04/23 Unknown History (0.083 %) solution for nebulization albuterol sulfate 90 mcg/actuation 2 puff inhalation Q4H PRN wheezing 06/04/23 06/04/23 Unknown History aerosol inhaler (Ventolin HFA) atorvastatin 80 mg tablet 80 mg PO BEDTIME 06/04/23 06/04/23 Unknown History furosemide 20 mg tablet 60 mg PO DAILY 06/04/23 06/04/23 Unknown History ipratropium 20 mcg-albuterol 100 1 puff inhalation QID 06/04/23 06/04/23 Unknown History mcg/actuation mist for inhalation (Combivent Respimat) lisinopril 40 mg tablet 40 mg PO BEDTIME 06/04/23 06/04/23 Unknown History pantoprazole 20 mg tablet,delayed 20 mg PO QAM 06/04/23 06/04/23 Unknown History release Physical Exam Vital Signs and Narrative: Vital Signs: Last Vital Signs Temp 98.1 F 06/17/23 03:35 Pulse 75 06/17/23 03:35 Resp 16 06/17/23 01:36 BP 117/61 06/17/23 03:35 Pulse Ox 100 06/17/23 03:35 O2 Del Method Room Air 06/17/23 03:35 BMI result Body Mass Index 34.7 General: Well nourished male. Awake, alert and oriented x 4. No apparent distress Eyes: No pallor or jaundice. PERRLA, EOMI HENT: Moist oral mucus membranes. No oropharyngeal lesions. Neck: Supple. No cervical adenopathy. No JVD Cardiovascular: Regular rate and rhythm. Normal heart sounds. No murmurs, rubs or gallops. No JVD. No peripheral edema. Respiratory: Normal respiratory effort with no accessory muscle use. CTAB. Gastrointestinal: Abdomen is soft, non-tender, non-distended. Normoactive bowel sounds. No hepatosplenomegaly Extremities: s/p Rt KA. LLE is edematous, erythematous and with open wounds draining sero-sanguineous fluid. I am unable to palpate the DP/PT pulses but has good capillary refill. Skin: Warm/Dry. No rashes. No mottling. Capillary refill is < 2 seconds Neurological: AAOx4. Intact speech & cognition. Normal gait & balance. CN II - XII grossly intact but not individually tested. No motor or sensory deficits Hematologic: No bleeding. No ecchymosis. No swollen or tender lymph nodes. Psychiatric: Cooperative. Irritable mood & affect. Results Labs 06/17/23 01:28 06/17/23 01:27 Labs: Laboratory Results - last 24 hr 06/17/23 06/17/23 06/17/23 01:27 01:28 03:16 MCV 85.1 MCH 26.4 L MCHC 31.0 RDW 16.4 H Plt Count 385 D MPV 10.3 Immature Gran % (Auto) 0.5 H Neut % (Auto) 82.7 H Lymph % (Auto) 8.4 L [place] % (Auto) 6.6 Eos % (Auto) 1.2 Baso % (Auto) 0.6 Lymph # (Auto) 1.2 [place] # (Auto) 0.9 Eos # (Auto) 0.2 Baso # (Auto) 0.1 Abs Immat Gran (auto) 0.07 H Absolute Neuts (auto) 11.6 H Absolute Nucleated RBC 0.000 Nucleated RBC % (auto) 0.0 ESR 18 H PT 16.8 H INR 1.4 H APTT 29.3 Anion Gap 13 Estim Creat Clear Calc 104.5 Estimated GFR > 60 Random Glucose 213 H Lactic Acid 3.3 H* Calcium 7.1 L D Total Bilirubin 0.5 AST 25 ALT 23 Alkaline Phosphatase 230 H C-Reactive Protein 3.64 H Total Protein 6.1 L Albumin 2.7 L Assessment and Plan (1) Cellulitis and abscess of left leg: Status: Acute (2) Type 2 diabetes mellitus: Qualifiers: Diabetes mellitus terminal operations manager insulin use: with terminal operations manager use Diabetes mellitus complication status: with circulatory complication Diabetes mellitus complication detail: with other circulatory complications Qualified Code(s): E11.59 - Type 2 diabetes mellitus with other circulatory complications; 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 Dia), HLD, & s/p R AKA and who was just recently discharged from hospital after a 6 day stay (06/04 - 06/09) for IV antibiotics for strep cellulitis of the LLE returns to hospital with 1. Cellulitis of LLE - with worsening edema, erythema and pain despite 2 weeks of antibiotics - restart on broad spectrum antibiotic coverage - swab wounds (though likely to be polymicrobial) - he does not meet criteria for sepsis and is hemodynamically stable so no fluid bolus was administered - ID consult - will likely need Vascular surgery evaluation given significant underlying PVD and failed abx course 2. PVD - likely contributing to the pain - consult Vascular surgery 3. Type 2 diabetes mellitus - resume Insulin Lantus 42 units at bedtime - add sliding scale insulin coverage 4. H/O Systolic CHF - with documented LVEF of 20-25% - now with swollen LLE - could have a component of volume overload - will continue with diuretics 5. Hypokalemia - mild - replenish orally DVT: SC Lovenox CODE STATUS: Full code Admission for at least 2 midnights for management of worsening cellulits of the LLE in a diabetic patient with known PVD Total time managing care of this patient today: 75 minutes. Quality Stroke Does the patient have a stroke diagnosis?: No VTE Prior VTE?: No VTE Risk Level:: Medical - moderate - high VTE Device Contraindication: Treatment Not Indicated VTE Drug Contraindication: N/A - Med Ordered
[2023-06-17] MEDS: Enoxaparin Sodium 40 MG/0.4 ML SYRINGE SUBCUT (05:08)
[2023-06-17] MEDS: HYDROmorphone HCl 1 MG/ML SYRINGE IVPUSH (05:08)
[2023-06-17 05:19] LABS: Reflex Lactate? Lactic Acid Added
--- NOTE | 2023-06-17 05:23 | PC.NURSE ---
Pt medicated per sep. Plan of care ongoing.
[2023-06-17 05:44] LABS: Glucose, Whole Blood 266 mg/dL (60-115)
[2023-06-17] MEDS: Potassium Chloride ER 20 MEQ TAB.ER.PRT 40 MEQ PO (06:01)
[2023-06-17] MEDS: Furosemide 100 MG/10 ML VIAL 80 MG IVPUSH (06:01)
--- NOTE | 2023-06-17 06:05 | PC.NURSE ---
Pt ca&ox4, no signs of distress. Pt medicated per mar. Plan of care ongoing.
--- NOTE | 2023-06-17 06:08 | PC.NURSE ---
Provider Rosaline notified of pts poc 266. Plan of care ongoing.
[2023-06-17 06:15] LABS: ~Lactic Acid-LAB USE ONLY 3.2 mmol/L (0.5-2.0)
--- NOTE | 2023-06-17 06:16 | PC.NURSE ---
Provider Rosaline notified of pts critical lactic of 3.2 Plan of care ongoing.
[2023-06-17 07:10] LABS: Glucose, Whole Blood 246 mg/dL (60-115)
[2023-06-17] MEDS: Insulin Lispro 100 UNIT/ML 3 ML VIAL SUBCUT ×4 (07:16→22:04)
[2023-06-17] MEDS: 0.9 % Sodium Chloride Flush 3 ML SYRINGE IVFLUSH ×3 (07:23→20:20)
--- NOTE | 2023-06-17 07:43 | PHA.PROG ---
Admission Date/Time: June 17, 2023 04:46 Indication: skin/skin structure Weight in k.522 kg Adjusted body weight in Kg: [place] body weight in Kg: Obesity Dosing Indication % IBW: Serum Creatinine - Last 168 Hours 06/17/23 01:27 Creatinine 0.78 Estimated CrCl and GFR - Last 168 Hours 06/17/23 01:27 Estim Creat Clear Calc 104.5 Estimated GFR > 60 Vancomycin Loading Dose: 2000mg x1 Current Vancomycin Dosing Regimen: 1000mg Q12H Vancomycin Monitoring using AUC goal of 400 - 600 range with trough as surrogate marker: 446 Date and Time for next Vancomycin Level to be drawn: 06/18/2023 @1400 Pharmacist Comments on Vancomycin Plan: Obese model being used, predicted trough of 13.1 mg/L, will continue to monitor renal function and adjust accordingly. Vancomycin dosing will take advantage of Rapid Pathogen Screening as a clinical decision support tool that uses Bayesian modeling to calculate individual patient's pharmacokinetic parameters and forecast the patient's drug concentration time course with the target goal AUC 24 range of 400 - 600 mg/L/hr.
[2023-06-17] MEDS: HYDROmorphone HCl 1 MG/ML SYRINGE 0.5 MG IVPUSH ×4 (07:52→22:04)
[2023-06-17 07:53] LABS: Reflex Lactate? 2 Y
--- NOTE | 2023-06-17 08:14 | PC.NURSE ---
alert and oriented, respirations even and unlabored. patient with hx of right leg above knee amputation - presenting for left leg pain. patient stating pain is 9/10 at this time, utilized PRN pain medications. able to use urinal independently. pharmacy at bedside to complete med rec. patient offering no other complaints at this time, no obvious signs/symptoms of distress.
--- NOTE | 2023-06-17 08:34 | PC.NURSE ---
RN TO RN REPORT RECEIVED. PT TRANSFERRED TO ED OVERFLOW UNIT BED 3.
[2023-06-17] MEDS: Piperacillin Sodium/Tazobactam 3.375 GM in 0.9 % Sodium Chloride 50 ML IV ×4 (08:46→22:02)
--- NOTE | 2023-06-17 08:53 | PC.NURSE ---
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 NO SOB/YASIR NOTED SPEAKS IN FULL SENTENCES. C/O L LOWER LEG PAIN 03/14. PT STATES NO RELIEF WITH PAIN MEDS FROM EARLIER. PT L LOWER LEG SWOLLEN WITH MULTIPLE OPEN AREAS, STAGE 2. +PP VIA DOPPLER TO L FOOT. PT L LOWER EXT SLIGHTLY TAMIKO. 2-3+ PITTING EDEMA TO L FOOT WITH SM AMT OF CLEAR DRAINAGE NOTED. PT AWARE OF PLAN OF CARE.
[2023-06-17 09:27] LABS: ~Lactic Acid-LAB USE ONLY 2.7 mmol/L (0.5-2.0)
--- NOTE | 2023-06-17 09:36 | PC.NURSE ---
LAB RESULTS REPORTED TO DR. WARREN VIA [employer] - Couplewise 2.7
[2023-06-17] MEDS: oxyCODONE HCl Immed Release 5 MG TABLET PO ×2 (10:37→20:19)
[2023-06-17] MEDS: Acetaminophen 325 MG TABLET 650 MG PO (10:37)
[2023-06-17 11:18] LABS: Glucose, Whole Blood 207 mg/dL (60-115)
--- NOTE | 2023-06-17 11:26 | PHA.MEDREC ---
Pharmacy Consult ? Medication Reconciliation Pharmacy has completed the medication reconciliation. Patient can't name the medications that he's taking, can only say that he takes medications for cholesterol, blood pressure, water pill, prostate, diabetic pill, insulin, asthma and acid reflux . He said he has med box sent to him from the [facility] and he takes medications from it. I spoke to Daniela from the [facility] and she can only confirm aspirin, carvedilol, tamsulosin, lantus, humalog and tamsulosin in his latest med box. Last fill of atorvastatin, pantoprazole and lisinopril was November 02, last fill of furosemide and metformin was in January, and last fill of Combivent was in March.
--- NOTE | 2023-06-17 12:59 | PC.NURSE ---
ALMAS LÓPEZ ([facility]) CALLED FOR AN UPDATED STATUS ON PT.
--- NOTE | 2023-06-17 12:59 | PC.NURSE ---
MR. VALENCIA IS AT BEDSIDE. C/D/D THEN WITH [facility]ENS WRAP TO LOWER LEG BY DR. VALENCIA. PT AWARE OF PLAN OF CARE.
[2023-06-17] MEDS: vancomycin HCL 1,000 MG in 0.9 % Sodium Chloride 250 ML 270 MG IV ×2 (15:44→20:16)
--- NOTE | 2023-06-17 16:22 | PM.CNGS ---
History of Present Illness Consult details Consult date: 06/17/23 Reason for consult: wound care Narrative: Very complex 62-year-old gentleman presents for hospital evaluation regarding nonhealing left lower extremity ulcers he is fairly noncompliant. He was actually discharged on 06/09/2023. He had significant cellulitis at that time and was treated with vancomycin and Zosyn and then switched to clindamycin. He also use diuretics to assist with the edema. He was discharged on clindamycin and doxycycline. He now returns to the hospital with significant edema of that left lower extremity. Pretibial ulcers appear to be stable.. Review of Systems Review of Systems: Yes all other systems are reviewed and are negative Constitutional: Constitutional: Reports no additional constitutional complaints ENT: Reports Normal hearing present Cardiovascular: Cardiovascular: Denies chest pain, Denies chest pain at rest, Denies chest pain with activity and Denies pedal edema Respiratory: Respiratory: Denies cough Gastrointestinal: Gastrointestinal: Denies abdominal pain Musculoskeletal: Musculoskeletal: Denies abnormal gait, Denies muscle cramps and Denies radiating pain into limb Integumentary/Breasts: Skin/Breast: Denies skin ulcer and Denies wounds Neurologic: Reports Normal hearing present and Denies abnormal gait Psychiatric: Psychiatric: Reports no additional psychiatric complaints PMFSH Past Medical History Medical History PAD (peripheral artery disease) Right above-knee amputee History of right above knee amputation Infection of amputation site of lower extremity BKA stump complication Below-knee amputation of right lower extremity BPH (benign prostatic hyperplasia) Cardiomyopathy CAD (coronary artery disease) History of peripheral vascular disease Coronary artery disease Cardiomyopathy Essential hypertension Type 2 diabetes mellitus with unspecified complications Abscess, perineum Asthma High cholesterol HTN (hypertension) Diabetes Family History Family History Father No problems noted. Mother Diabetes HTN (hypertension) Sister No problems noted. Sister Diabetes HTN (hypertension) Sister No problems noted. Surgical History Surgical History History of surgical removal of pilonidal cyst Hx of hand surgery Hx of hand surgery History of cardiac cath S/P angiogram of extremity Hx of varicose vein stripping Social History Social History Household Members: None Household Members Other:: SELF Housing: Apartment Housing Other:: elderly housing Are you a primary career development coordinator/teacher to a significant other at home: No Do you presently have visiting nurse or other home services: Yes Alcohol intake: never Comment: Refused bed and chair alarm. Patient Tobacco Use Status: Current everyday Tobacco user Tobacco use type: Cigarette Cigarette Packs Per Day: 0.5 Cigarettes Per Day: 10 Years Smoked: 15+ Second Hand Smoke Exposure: No Advance Directives Date on File: 12/10/20 service: No Current occupational status: disabled Meds Allergies Allergy/AdvReac Type Severity Reaction Status Date / Time No Known Allergies Allergy Verified 04/27/23 14:10 Active Medications: Current Medications Acetaminophen (Acetaminophen 325 Mg Tablet) 650 mg PO Q6H PRN PRN Reason: Pain, Mild (Pain Scale 1-3) Last Admin: 06/17/23 10:37 Dose: 650 mg Al Hydroxide/Mg Hydroxide (Magnesium Hydrox/Alum Hydrox 30 Ml Oral.Susp) 30 ml PO Q4H PRN PRN Reason: Heartburn/Nausea Dextrose (Dextrose 50 % 25 Gm/50 Ml Syringe) 25 gm IVPUSH Q15M PRN; Protocol PRN Reason: per Hypoglycemia Standing Ord. Enoxaparin Sodium (Enoxaparin Sodium 40 Mg/0.4 Ml Syringe) 40 mg SUBCUT Q24H KARI Last Admin: 06/17/23 05:08 Dose: 40 mg Furosemide (Furosemide 100 Mg/10 Ml Vial) 60 mg IVPUSH DAILY KARI; Protocol Glucose (Glucose Gel 15 Gm Gel..Gram.) 15 gm PO Q15M PRN; Protocol PRN Reason: per Hypoglycemia Standing Ord. Hydromorphone HCl (Hydromorphone Hcl 1 Mg/Ml Syringe) 0.5 mg IVPUSH Q4H PRN; Protocol PRN Reason: Pain, Severe (Pain Scale 7-10) Last Admin: 06/17/23 13:20 Dose: 0.5 mg Piperacillin Sod/Tazobactam (Sod 3.375 gm/ Sodium Chloride) 50 mls @ 100 mls/hr IV QID KARI Last Infusion: 06/17/23 14:56 Dose: Infused Vancomycin HCl 1,000 mg/ (Sodium Chloride) 270 mls @ 270 mls/hr IV BID KARI Last Admin: 06/17/23 15:44 Dose: 270 mls/hr Insulin Human Lispro (Insulin Lispro 100 Unit/Ml 3 Ml Vial) 0 unit SUBCUT QIDACHS [facility]; Protocol Last Admin: 06/17/23 11:58 Dose: 2 unit Ondansetron HCl (Ondansetron Hcl 4 Mg/2 Ml Vial) 4 mg IVPUSH Q8H PRN PRN Reason: Nausea and Vomiting Oxycodone HCl (Oxycodone Hcl Immed Release 5 Mg Tablet) 5 mg PO Q6H PRN PRN Reason: Pain, Moderate(Pain Scale 4-6) Last Admin: 06/17/23 10:37 Dose: 5 mg Pharmacy Consult (Consult Rx Vancomycin Dosing) 1 each MISCELLANE DAILY PRN PRN Reason: Consult order Sodium Chloride (0.9 % Sodium Chloride Flush 3 Ml Syringe) 3 ml IVFLUSH [facility] Last Admin: 06/17/23 15:45 Dose: 3 ml Temazepam (Temazepam 15 Mg Capsule) 15 mg PO BEDTIME PRN PRN Reason: Insomnia Home Medications Medication Instructions Recorded Confirmed Last Taken Type albuterol sulfate 2.5 mg/3 mL 2.5 mg inhalation Q4H PRN Wheezing 06/04/23 06/17/23 Unknown History (0.083 %) solution for nebulization albuterol sulfate 90 mcg/actuation 2 puff inhalation Q4H PRN wheezing 06/04/23 06/17/23 Unknown History aerosol inhaler (Ventolin HFA) atorvastatin 80 mg tablet 80 mg PO BEDTIME 06/04/23 06/04/23 Unknown History furosemide 20 mg tablet 60 mg PO DAILY 06/04/23 06/04/23 Unknown History ipratropium 20 mcg-albuterol 100 1 puff inhalation QID 06/04/23 06/04/23 Unknown History mcg/actuation mist for inhalation (Combivent Respimat) lisinopril 40 mg tablet 40 mg PO BEDTIME 06/04/23 06/04/23 Unknown History pantoprazole 20 mg tablet,delayed 20 mg PO QAM 06/04/23 06/04/23 Unknown History release aspirin 81 mg tablet,delayed 81 mg PO QAM 06/17/23 06/17/23 06/16/23 History release carvedilol 25 mg tablet 25 mg PO BID 06/17/23 06/17/23 06/16/23 History insulin glargine 100 unit/mL (3 44 unit subcut DAILY 06/17/23 06/17/23 06/16/23 History mL) subcutaneous pen (Lantus Solostar U-100 Insulin) insulin lispro 100 unit/mL 10 unit subcut BID@0800,1200 06/17/23 06/17/23 06/16/23 History subcutaneous pen insulin lispro 100 unit/mL 12 unit subcut DAILY@1800 06/17/23 06/17/23 06/16/23 History subcutaneous pen tamsulosin 0.4 mg capsule 0.4 mg PO BEDTIME 06/17/23 06/17/23 06/16/23 History Physical Exam Vital Signs: Vital Signs: Last Vital Signs Temp 97 F 06/17/23 16:20 Pulse 82 06/17/23 16:20 Resp 16 06/17/23 16:20 BP 118/57 L 06/17/23 16:20 Pulse Ox 99 06/17/23 16:20 O2 Del Method Room Air 06/17/23 16:20 BMI result Body Mass Index 34.7 Const: General: cooperative, healthy appearing and comfortable Orientation/consciousness: oriented to person, oriented to place and oriented to time HEENT: Head: Yes normal to inspection Neck: Neck: Yes normal visual inspection Carotids: no bruits Chest: Chest palpation & inspection: normal inspection of the chest Resp: Effort & Inspection: normal respiratory effort and able to speak in complete sentences Auscultation: clear to auscultation bilaterally, no crackles, no rales, no rhonchi and no wheezes Cardio: Rate: regular rate Rhythm: regular rhythm Heart sounds: S1 normal heart sound present and S2 normal heart sound present Bruits: no carotid bruits Peripheral pulses: Peripheral pulses 2+ throughout GI: Inspection: Yes normal to inspection Skin: Other: Right stump well-healed Left pretibial surface 3 separate open ulcer to areas. In addition +3 to +4 edema. Serous drainage throughout the lower extremity. Wounds: no wounds Hair: normal Neuro: General: oriented to person, oriented to place and oriented to time Cranial nerves: Yes CN's II-XII intact bilaterally and Yes Normal hearing present Cognition (Neuro): normal cognition Motor exam (neuro): 5/5 motor strength present throughout Extrem: Other: venous exam: No significant superficial varicosities or spider telangiectasias, minimal edema General: No clubbing, No cyanosis and No edema Psych: Appearance: grossly normal Mental Status: mental status grossly normal Speech and movement: Normal speech and movement present Results Labs 06/18/23 07:19 06/18/23 07:19 Labs: Abnormal lab results 06/17/23 06/17/23 06/17/23 Range/Units 01:27 01:28 03:16 WBC 14.1 H (4.8-10.8) X10*3/uL Hgb 12.4 L (14.0-18.0) g/dl Hct 40.0 L (42.0-52.0) % MCH 26.4 L (27.0-33.0) pg RDW 16.4 H (11.0-16.0) % Immature Gran % (Auto) 0.5 H (0.0-0.4) % Neut % (Auto) 82.7 H (45-73) % Lymph % (Auto) 8.4 L (20-40) % Abs Immat Gran (auto) 0.07 H (0.00-0.03) X10*3/uL Absolute Neuts (auto) 11.6 H (2.0-8.3) x10*3/uL ESR 18 H (0-15) MM/HR PT 16.8 H (11.1-13.3) SEC INR 1.4 H (0.9-1.1) Potassium 3.2 L (3.3-5.1) mmol/L Carbon Dioxide 21 L (22-29) mmol/L BUN 18 H (9-16) mg/dL POC Glucose (60-115) mg/dL Random Glucose 213 H (60-115) mg/dL Lactic Acid 3.3 H* (0.5-2.0) mmol/L Lactic Acid F/U @ 2Hr (0.5-2.0) mmol/L Lactic Acid F/U @ 4Hr (0.5-2.0) mmol/L Calcium 7.1 L D (8.4-10.2) mg/dL Alkaline Phosphatase 230 H (39-117) U/L C-Reactive Protein 3.64 H (< or = 0.50) mg/dL Total Protein 6.1 L (6.5-8.0) g/dL Albumin 2.7 L (3.5-5.0) g/dL 06/17/23 06/17/23 06/17/23 Range/Units 05:34 05:40 07:07 WBC (4.8-10.8) X10*3/uL Hgb (14.0-18.0) g/dl Hct (42.0-52.0) % MCH (27.0-33.0) pg RDW (11.0-16.0) % Immature Gran % (Auto) (0.0-0.4) % Neut % (Auto) (45-73) % Lymph % (Auto) (20-40) % Abs Immat Gran (auto) (0.00-0.03) X10*3/uL Absolute Neuts (auto) (2.0-8.3) x10*3/uL ESR (0-15) MM/HR PT (11.1-13.3) SEC INR (0.9-1.1) Potassium (3.3-5.1) mmol/L Carbon Dioxide (22-29) mmol/L BUN (9-16) mg/dL POC Glucose 266 H 246 H (60-115) mg/dL Random Glucose (60-115) mg/dL Lactic Acid (0.5-2.0) mmol/L Lactic Acid F/U @ 2Hr 3.2 H* (0.5-2.0) mmol/L Lactic Acid F/U @ 4Hr (0.5-2.0) mmol/L Calcium (8.4-10.2) mg/dL Alkaline Phosphatase (39-117) U/L C-Reactive Protein (< or = 0.50) mg/dL Total Protein (6.5-8.0) g/dL Albumin (3.5-5.0) g/dL 06/17/23 06/17/23 Range/Units 08:37 11:10 WBC (4.8-10.8) X10*3/uL Hgb (14.0-18.0) g/dl Hct (42.0-52.0) % MCH (27.0-33.0) pg RDW (11.0-16.0) % Immature Gran % (Auto) (0.0-0.4) % Neut % (Auto) (45-73) % Lymph % (Auto) (20-40) % Abs Immat Gran (auto) (0.00-0.03) X10*3/uL Absolute Neuts (auto) (2.0-8.3) x10*3/uL ESR (0-15) MM/HR PT (11.1-13.3) SEC INR (0.9-1.1) Potassium (3.3-5.1) mmol/L Carbon Dioxide (22-29) mmol/L BUN (9-16) mg/dL POC Glucose 207 H (60-115) mg/dL Random Glucose (60-115) mg/dL Lactic Acid (0.5-2.0) mmol/L Lactic Acid F/U @ 2Hr (0.5-2.0) mmol/L Lactic Acid F/U @ 4Hr 2.7 H* (0.5-2.0) mmol/L Calcium (8.4-10.2) mg/dL Alkaline Phosphatase (39-117) U/L C-Reactive Protein (< or = 0.50) mg/dL Total Protein (6.5-8.0) g/dL Albumin (3.5-5.0) g/dL Short CBC 06/17/23 Range/Units 01:28 WBC 14.1 H (4.8-10.8) X10*3/uL Hgb 12.4 L (14.0-18.0) g/dl Hct 40.0 L (42.0-52.0) % Plt Count 385 D (160-400) X10*3/uL BMP 06/17/23 01:27 Sodium 138 Potassium 3.2 L Chloride 107 Carbon Dioxide 21 L BUN 18 H Creatinine 0.78 Calcium 7.1 L D Liver Function 06/17/23 Range/Units 01:27 Total Bilirubin 0.5 (0.0-1.0) mg/dL AST 25 (5-37) U/L ALT 23 (0-40) U/L Alkaline Phosphatase 230 H (39-117) U/L Albumin 2.7 L (3.5-5.0) g/dL All other labs normal. Assessment and Plan (1) PAD (peripheral artery disease): Status: Acute see below (2) Diabetic ulcer of left lower leg: Status: Acute Patient continues to have the significantly edematous leg. At the current time would recommend continued antibiotics diuretics as tolerated in addition wrapping of the legs. It is unclear if this patient is compliant with his medications at home. Unfortunately if this does persist in we continue down this pathway he is risking an amputation. I did discuss this with him with baseball hand sewer present. We will continue to follow with you. Wound care orders were placed. Thank you for allowing us to assist in his care Procedures Date of Service Date of Service: 06/18/23
--- NOTE | 2023-06-17 16:26 | PM.EVENT ---
Event Note Date of Service: 06/17/23 Event Note: Admitted early this morning for worsening pain left lower extremity Patient is a 62 year old male whose history was obtained with the assistance of a pharmacy order entry technician and who has multiple medical problems including HFrEF, T2DM (on Insulin), asthma, BPH, PVD (follows up with Dr. 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 He rates his pain at a 10/10 and it is localized to the left leg/dennis area. He denies any associated fevers or chills. Work up done in the emergency room was significant for a leucocytosis of 14.1 k/mm3 with a left shift, elevated lactic acid at 3.3, elevated CRP at 3.64 and low calcium and albumin. He was started on IV Zosyn and Vancomycin for cellulitis and admission requested. His main complaint during my evaluation was significant pain in the affected limb. Assessment plan: 62 year old male whose history was obtained with the assistance of a pharmacy order entry technician and who has multiple medical problems including CHF, DM2, asthma, BPH, PVD (follows up with Dr. iDa), HLD, & s/p R AKA and who was just recently discharged from hospital after a 6 day stay (06/04 - 06/09) for IV antibiotics for strep cellulitis of the LLE returns to hospital with 1. Cellulitis of LLE - with worsening edema, erythema and pain despite 2 weeks of antibiotics Continue IV vancomycin and Zosyn Follow ID and vascular surgery consult 2 Type 2 diabetes mellitus - on insulin, who will resume low-dose Lantus 20 units daily home dose is Lantus 42 units continue still in sliding scale monitor blood sugars 3. H/O Systolic CHF - with documented LVEF of 20-25%, on IV Lasix 60 mg will follow BMP in clinical course and transition to by mouth Lasix 4. Hypokalemia - mild likely due to diuretics will replete and repeat labs 5. Hypertension on lisinopril and Coreg med list needs to be verified with pharmacy follow BP closely. 6.Hyperlipidemia - Atorvastatin 7.mild persistent Asthma, no exacerbation resume home inhalers, Combivent Respimat is non formulary. 8. DVT prophylaxis with Lovenox 9. Code status full code Time Spent With Patient Time: Total time managing care of this patient today ____ minutes.
[2023-06-17 16:28] LABS: Glucose, Whole Blood 212 mg/dL (60-115)
[2023-06-17] MEDS: Aspirin Enteric Coated 81 MG TABLET.DR PO (17:16)
[2023-06-17 20:11] LABS: Glucose, Whole Blood 205 mg/dL (60-115)
[2023-06-17] MEDS: Tamsulosin HCL 0.4 MG CAPSULE PO (20:20)
--- NOTE | 2023-06-17 22:12 | W.PM.IDCN ---
History of Present Illness Data of Consult Service Date: 06/17/23 Requesting physician: Joel Mckeon Primary Care Provider: MD FRANCISCO Mensah Reason for consult: left leg erythema and blisters He presents again with severe left leg pain and blisters. He has PAD and sees Dr Dia He has had right leg AKA. He was hospitalized and discharged 06/09 for cellultis and left with Clindamycin and Doxycycline. It is unclear if he took medication. He has no fever and leukocytosis. He has dakotah wrapl=. Review of Systems Review of Systems: Yes all other systems are reviewed and are negative [facility] Past Medical History Medical History PAD (peripheral artery disease) Right above-knee amputee History of right above knee amputation Infection of amputation site of lower extremity BKA stump complication Below-knee amputation of right lower extremity BPH (benign prostatic hyperplasia) Cardiomyopathy CAD (coronary artery disease) History of peripheral vascular disease Coronary artery disease Cardiomyopathy Essential hypertension Type 2 diabetes mellitus with unspecified complications Abscess, perineum Asthma High cholesterol HTN (hypertension) Diabetes Family History Family History Father No problems noted. Mother Diabetes HTN (hypertension) Sister No problems noted. Sister Diabetes HTN (hypertension) Sister No problems noted. Family history: reviewed and not pertinent Surgical History Surgical History History of surgical removal of pilonidal cyst Hx of hand surgery Hx of hand surgery History of cardiac cath S/P angiogram of extremity Hx of varicose vein stripping Social History Social History Household Members: None Household Members Other:: SELF Housing: Apartment Housing Other:: elderly housing Are you a primary career technology teacher to a significant other at home: No Do you presently have visiting nurse or other home services: Yes Alcohol intake: never Comment: Refused bed and chair alarm. Patient Tobacco Use Status: Current everyday Tobacco user Tobacco use type: Cigarette Cigarette Packs Per Day: 0.5 Cigarettes Per Day: 10 Years Smoked: 15+ Second Hand Smoke Exposure: No Advance Directives Date on File: 12/10/20 service: No Current occupational status: disabled Meds Allergies Allergy/AdvReac Type Severity Reaction Status Date / Time No Known Allergies Allergy Verified 04/27/23 14:10 Active Medications: Current Medications Acetaminophen (Acetaminophen 325 Mg Tablet) 650 mg PO Q6H PRN PRN Reason: Pain, Mild (Pain Scale 1-3) Last Admin: 06/17/23 10:37 Dose: 650 mg Al Hydroxide/Mg Hydroxide (Magnesium Hydrox/Alum Hydrox 30 Ml Oral.Susp) 30 ml PO Q4H PRN PRN Reason: Heartburn/Nausea Albuterol Sulfate (Albuterol Sulfate 90 Mcg 8 Gm Inhaler) 2 puff INHALE Q4H PRN PRN Reason: wheezing Albuterol Sulfate (Albuterol Sulfate (0.083%) 2.5 Mg/3 Ml Vial.Neb) 2.5 mg INHALE Q4H PRN PRN Reason: Wheezing Aspirin (Aspirin Enteric Coated 81 Mg Tablet.) 81 mg PO DAILY [facility] Last Admin: 06/17/23 17:16 Dose: 81 mg Dextrose (Dextrose 50 % 25 Gm/50 Ml Syringe) 25 gm IVPUSH Q15M PRN; Protocol PRN Reason: per Hypoglycemia Standing Ord. Enoxaparin Sodium (Enoxaparin Sodium 40 Mg/0.4 Ml Syringe) 40 mg SUBCUT Q24H [facility] Last Admin: 06/17/23 05:08 Dose: 40 mg Furosemide (Furosemide 100 Mg/10 Ml Vial) 60 mg IVPUSH DAILY [facility]; Protocol Glucose (Glucose Gel 15 Gm Gel..Gram.) 15 gm PO Q15M PRN; Protocol PRN Reason: per Hypoglycemia Standing Ord. Hydromorphone HCl (Hydromorphone Hcl 1 Mg/Ml Syringe) 0.5 mg IVPUSH Q4H PRN; Protocol PRN Reason: Pain, Severe (Pain Scale 7-10) Last Admin: 06/17/23 22:04 Dose: 0.5 mg Piperacillin Sod/Tazobactam (Sod 3.375 gm/ Sodium Chloride) 50 mls @ 100 mls/hr IV QID [facility] Last Admin: 06/17/23 22:02 Dose: 100 mls/hr Vancomycin HCl 1,000 mg/ (Sodium Chloride) 270 mls @ 270 mls/hr IV BID [facility] Last Infusion: 06/17/23 22:09 Dose: Infused Insulin Glargine (Insulin Glargine,Hum.Rec.Anlog 100 Unit/Ml 10 Ml Vial) 20 unit SUBCUT DAILY [facility] Insulin Human Lispro (Insulin Lispro 100 Unit/Ml 3 Ml Vial) 0 unit SUBCUT QIDACHS [facility]; Protocol Last Admin: 06/17/23 22:04 Dose: 4 unit Omeprazole (Omeprazole 20 Mg Capsule.Dr) 20 mg PO DAILY@0630 [facility] Ondansetron HCl (Ondansetron Hcl 4 Mg/2 Ml Vial) 4 mg IVPUSH Q8H PRN PRN Reason: Nausea and Vomiting Oxycodone HCl (Oxycodone Hcl Immed Release 5 Mg Tablet) 5 mg PO Q6H PRN PRN Reason: Pain, Moderate(Pain Scale 4-6) Last Admin: 06/17/23 20:19 Dose: 5 mg Pharmacy Consult (Consult Rx Vancomycin Dosing) 1 each MISCELLANE DAILY PRN PRN Reason: Consult order Sodium Chloride (0.9 % Sodium Chloride Flush 3 Ml Syringe) 3 ml IVFLUSH QSHIFT [facility] Last Admin: 06/17/23 20:20 Dose: 3 ml Tamsulosin HCl (Tamsulosin Hcl 0.4 Mg Capsule) 0.4 mg PO BEDTIME [facility] Last Admin: 06/17/23 20:20 Dose: 0.4 mg Temazepam (Temazepam 15 Mg Capsule) 15 mg PO BEDTIME PRN PRN Reason: Insomnia Home Medications Medication Instructions Recorded Confirmed Last Taken Type albuterol sulfate 2.5 mg/3 mL 2.5 mg inhalation Q4H PRN Wheezing 06/04/23 06/17/23 Unknown History (0.083 %) solution for nebulization albuterol sulfate 90 mcg/actuation 2 puff inhalation Q4H PRN wheezing 06/04/23 06/17/23 Unknown History aerosol inhaler (Ventolin HFA) atorvastatin 80 mg tablet 80 mg PO BEDTIME 06/04/23 06/04/23 Unknown History furosemide 20 mg tablet 60 mg PO DAILY 06/04/23 06/04/23 Unknown History ipratropium 20 mcg-albuterol 100 1 puff inhalation QID 06/04/23 06/04/23 Unknown History mcg/actuation mist for inhalation (Combivent Respimat) lisinopril 40 mg tablet 40 mg PO BEDTIME 06/04/23 06/04/23 Unknown History pantoprazole 20 mg tablet,delayed 20 mg PO QAM 06/04/23 06/04/23 Unknown History release aspirin 81 mg tablet,delayed 81 mg PO QAM 06/17/23 06/17/23 06/16/23 History release carvedilol 25 mg tablet 25 mg PO BID 06/17/23 06/17/23 06/16/23 History insulin glargine 100 unit/mL (3 44 unit subcut DAILY 06/17/23 06/17/23 06/16/23 History mL) subcutaneous pen (Lantus Solostar U-100 Insulin) insulin lispro 100 unit/mL 10 unit subcut BID@0800,1200 06/17/23 06/17/23 06/16/23 History subcutaneous pen insulin lispro 100 unit/mL 12 unit subcut DAILY@1800 06/17/23 06/17/23 06/16/23 History subcutaneous pen tamsulosin 0.4 mg capsule 0.4 mg PO BEDTIME 06/17/23 06/17/23 06/16/23 History Physical Exam Vital Signs: Vital Signs: Last Vital Signs Temp 97.1 F 06/17/23 19:36 Pulse 98 06/17/23 19:36 Resp 18 06/17/23 19:36 BP 141/81 H 06/17/23 19:36 Pulse Ox 100 06/17/23 19:36 O2 Del Method Room Air 06/17/23 19:36 BMI result Body Mass Index 34.7 Const: General: cooperative HEENT: Head: Yes normal to inspection Face and sinus: Yes normal facial exam Mouth: Normal oral and palatal mucosa present Teeth and gingiva: dentition normal Eyes: General: appearance normal, both eyes and all related structures Pupils: Equal, round and reactive pupils present Resp: Effort & Inspection: normal respiratory effort Cardio: Rate: regular rate Rhythm: regular rhythm GI: Palpation (GI): Soft to palpation and nontender : General: Yes no CVA tenderness Back/Spine/Pelvis: Back: no CVA tenderness Skin: General skin exam: no rashes or lesions noted Neuro: General: moves all extremities Cranial nerves: Yes Equal, round and reactive pupils present Extrem: Other: right BKA left leg redness and blisters,swelling and plus 2 pulse General: Yes normal to inspection Psych: Appearance: grossly normal Results Labs 06/17/23 01:28 06/17/23 01:27 Labs: Short CBC 06/17/23 Range/Units 01:28 WBC 14.1 H (4.8-10.8) X10*3/uL Hgb 12.4 L (14.0-18.0) g/dl Hct 40.0 L (42.0-52.0) % Plt Count 385 D (160-400) X10*3/uL BMP 06/17/23 01:27 Sodium 138 Potassium 3.2 L Chloride 107 Carbon Dioxide 21 L BUN 18 H Creatinine 0.78 Calcium 7.1 L D Liver Function 06/17/23 Range/Units 01:27 Total Bilirubin 0.5 (0.0-1.0) mg/dL AST 25 (5-37) U/L ALT 23 (0-40) U/L Alkaline Phosphatase 230 H (39-117) U/L Albumin 2.7 L (3.5-5.0) g/dL Assessment and Plan (1) Diabetic ulcer of left lower leg: Status: Acute He has poor healing leg and likely need another amputation unfortunately in future Possible staph or strep or gram negatives Would continue Vancomycin and Zosyn Discharge po linezolid when improved (2) PAD (peripheral artery disease): Status: Acute
[2023-06-17] MEDS: Albuterol Sulfate (0.083%) 2.5 MG/3 ML VIAL.NEB INHALE (22:23)
[2023-06-18] MEDS: HYDROmorphone HCl 1 MG/ML SYRINGE 0.5 MG IVPUSH ×4 (02:59→21:54)
[2023-06-18 03:01] VITALS: BP 104/53; PULSE 86; RESP 17; TEMP 36.1; O2SAT 96
[2023-06-18] MEDS: Enoxaparin Sodium 40 MG/0.4 ML SYRINGE SUBCUT (05:33)
[2023-06-18] MEDS: Omeprazole 20 MG CAPSULE.DR PO (05:33)
[2023-06-18 07:12] VITALS: BP 131/68; PULSE 86; RESP 16; TEMP 36.1; O2SAT 99
[2023-06-18 07:46] LABS: Glucose, Whole Blood 142 mg/dL (60-115)
[2023-06-18 08:13] LABS: MANUAL DIFF FLAG NO
[2023-06-18 08:20] LABS: Basophils Absolute Auto 0.1 X10*3/uL (0.0-0.2); Basophils Percent Auto 0.7 % (0-2); Eosinophils Absolute Auto 0.4 X10*3/uL (0.0-0.4); Hematocrit 36.6 % (42.0-52.0); Hemoglobin 11.4 g/dl (14.0-18.0); Imm Gran Abs Auto 0.08 X10*3/uL (0.00-0.03); Imm Gran Pct Auto 0.6 % (0.0-0.4); Lymphocytes Absolute Auto 2.1 X10*3/uL (1.2-4.9); Lymphocytes Percent Auto 15.1 % (20-40); Mean Corpuscular HGB Conc 31.1 g/dl (31.0-36.0); Mean Corpuscular Hemoglobin 26.7 pg (27.0-33.0); Mean Corpuscular Volume 85.7 fL (80.0-98.0); Mean Platelet Volume 10.4 fL (9.4-12.4); Monocytes Absolute Auto 1.3 X10*3/uL (0.1-1.2); Monocytes Percent Auto 9.4 % (2-11); Neutrophils Absolute Auto 10.1 x10*3/uL (2.0-8.3); Neutrophils Percent Auto 71.2 % (45-73); Platelet Count 367 X10*3/uL (160-400); Red Blood Count 4.27 X10*6/uL (4.60-5.80); Red Cell Distribution Width 16.7 % (11.0-16.0); White Blood Count 14.2 X10*3/uL (4.8-10.8)
[2023-06-18] MEDS: Furosemide 100 MG/10 ML VIAL 60 MG IVPUSH (08:47)
[2023-06-18] MEDS: Aspirin Enteric Coated 81 MG TABLET.DR PO (08:48)
[2023-06-18] MEDS: Piperacillin Sodium/Tazobactam 3.375 GM in 0.9 % Sodium Chloride 50 ML IV ×4 (08:51→19:39)
[2023-06-18] MEDS: Insulin Glargine,Hum.rec.anlog 100 UNIT/ML 10 ML VIAL 20 UNIT SUBCUT (08:53)
[2023-06-18 08:59] LABS: Anion Gap 17 (12-20); Blood Urea Nitrogen 18 mg/dL (9-16); Calcium 8.7 mg/dL (8.4-10.2); Carbon Dioxide 24 mmol/L (22-29); Chloride 98 mmol/L (96-108); Creatinine Clr Calc Pharmacy 101.9; Estimated Glomerular Filt Rate > 60; Glucose Random 151 mg/dL (60-115); Potassium 4.4 mmol/L (3.3-5.1); Sodium 135 mmol/L (135-145)
[2023-06-18] MEDS: vancomycin HCL 1,000 MG in 0.9 % Sodium Chloride 250 ML 270 MG IV ×2 (09:46→21:18)
[2023-06-18] MEDS: 0.9 % Sodium Chloride Flush 3 ML SYRINGE IVFLUSH ×3 (09:46→19:40)
[2023-06-18 11:34] LABS: Glucose, Whole Blood 211 mg/dL (60-115)
[2023-06-18] MEDS: Insulin Lispro 100 UNIT/ML 3 ML VIAL SUBCUT ×3 (11:36→21:19)
--- NOTE | 2023-06-18 12:29 | P.PNVS_ITS ---
Subjective Subjective Date of Service: 06/18/23 Patient reports: no new complaints and feels better Interval history: Complex 62-year-old gentleman presents for follow-up secondary to a hospitalization due to swelling of that left leg he appears to be doing signifi cantly better. Swelling is would be down. Pain appears to be well controlled. He is in much better spirits today. Physical Exam Vital Signs: Vital Signs: Last Vital Signs Temp 97 F 06/18/23 07:12 Pulse 86 06/18/23 07:12 Resp 16 06/18/23 07:12 BP 131/68 06/18/23 07:12 Pulse Ox 99 06/18/23 07:12 O2 Del Method Room Air 06/18/23 07:12 BMI result Body Mass Index 34.7 Const: General: cooperative, healthy appearing and comfortable Orientation/consciousness: oriented to person, oriented to place and oriented to time HEENT: Head: Yes normal to inspection Neck: Neck: Yes normal visual inspection Carotids: no bruits Chest: Chest palpation & inspection: normal inspection of the chest Resp: Effort & Inspection: normal respiratory effort and able to speak in complete sentences Auscultation: clear to auscultation bilaterally, no crackles, no rales, no rhonchi and no wheezes Cardio: Rate: regular rate Rhythm: regular rhythm Heart sounds: S1 normal heart sound present and S2 normal heart sound present Bruits: no carotid bruits Peripheral pulses: Peripheral pulses 2+ throughout GI: Inspection: Yes normal to inspection Skin: Other: Nonhealing left pretibial ulcer - dressing clean dry intact +2 edema Wounds: no wounds Hair: normal Neuro: General: oriented to person, oriented to place and oriented to time Cranial nerves: Yes CN's II-XII intact bilaterally and Yes Normal hearing present Cognition (Neuro): normal cognition Motor exam (neuro): 5/5 motor strength present throughout Extrem: Other: venous exam: No significant superficial varicosities or spider telangiectasias, minimal edema General: No clubbing, No cyanosis and No edema Psych: Appearance: grossly normal Mental Status: mental status grossly normal Speech and movement: Normal speech and movement present Progress Note: A&P Assessment and plan (1) PAD (peripheral artery disease): Status: Acute Assessment and Plan: Appears to be doing relatively well. I do think that he develops edema as he becomes more active in ambulatory at home. We did discuss offloading and Canelo wraps. He can follow up with us as an outpatient. Stable from my perspective for discharge. Time Spent With Patient Time: Total time managing care of this patient today ____ minutes. Procedures Date of Service Date of Service: 06/18/23 Quality Stroke Does the patient have a stroke diagnosis?: No VTE Prior VTE?: No VTE Risk Level:: Medical - moderate - high VTE Device Contraindication: Treatment Not Indicated VTE Drug Contraindication: N/A - Med Ordered
--- NOTE | 2023-06-18 13:14 | HO.PM.IMPN ---
Subjective Subjective Date of Service: 06/18/23 Interval History: being followed for left lower extremity cellulitis, pain and swelling, today patient is feeling better, less pain, denies fever, no chills, tolerating diet no nausea, no vomiting, no abdominal pain. Review of Systems all other system reviewed and negative. Physical Exam Vital Signs: Vital Signs: Last Vital Signs Temp 97 F 06/18/23 07:12 Pulse 86 06/18/23 07:12 Resp 16 06/18/23 07:12 BP 131/68 06/18/23 07:12 Pulse Ox 99 06/18/23 07:12 O2 Del Method Room Air 06/18/23 07:12 BMI result Body Mass Index 34.7 Const: Other: Gen: in no acute distress HEENT: sclera anicteric, moist mucus membranes Neck: supple Lungs: clear to auscultation bilaterally Heart: regular rate and rhythm, no murmurs Abd: soft, non-tender, non-distended Ext: s/p R AKA , non healing left leg ulcers , no foul odor, 2+ edema left leg, no worsening redness appears better than last admission Neuro: alert and oriented x3, no focal findings Psych: appropriate affect Objective Data Active Medications Acetaminophen (Acetaminophen 325 Mg Tablet) 650 mg PO Q6H PRN PRN Reason: Pain, Mild (Pain Scale 1-3) Last Admin: 06/17/23 10:37 Dose: 650 mg Documented By: ROB Al Hydroxide/Mg Hydroxide (Magnesium Hydrox/Alum Hydrox 30 Ml Oral.Susp) 30 ml PO Q4H PRN PRN Reason: Heartburn/Nausea Albuterol Sulfate (Albuterol Sulfate 90 Mcg 8 Gm Inhaler) 2 puff INHALE Q4H PRN PRN Reason: wheezing Albuterol Sulfate (Albuterol Sulfate (0.083%) 2.5 Mg/3 Ml Vial.Neb) 2.5 mg INHALE Q4H PRN PRN Reason: Wheezing Last Admin: 06/17/23 22:23 Dose: 2.5 mg Documented By: CURTIS Aspirin (Aspirin Enteric Coated 81 Mg Tablet.) 81 mg PO DAILY [facility]ARI Last Admin: 06/18/23 08:48 Dose: 81 mg Documented By: GRAZIC Dextrose (Dextrose 50 % 25 Gm/50 Ml Syringe) 25 gm IVPUSH Q15M PRN; Protocol PRN Reason: per Hypoglycemia Standing Ord. Enoxaparin Sodium (Enoxaparin Sodium 40 Mg/0.4 Ml Syringe) 40 mg SUBCUT Q24H [facility] Last Admin: 06/18/23 05:33 Dose: 40 mg Documented By: MEREDITH Furosemide (Furosemide 100 Mg/10 Ml Vial) 60 mg IVPUSH DAILY [facility]; Protocol Last Admin: 06/18/23 08:47 Dose: 60 mg Documented By: COLT Glucose (Glucose Gel 15 Gm Gel..Gram.) 15 gm PO Q15M PRN; Protocol PRN Reason: per Hypoglycemia Standing Ord. Hydromorphone HCl (Hydromorphone Hcl 1 Mg/Ml Syringe) 0.5 mg IVPUSH Q4H PRN; Protocol PRN Reason: Pain, Severe (Pain Scale 7-10) Last Admin: 06/18/23 08:45 Dose: 0.5 mg Documented By: COLT Piperacillin Sod/Tazobactam (Sod 3.375 gm/ Sodium Chloride) 50 mls @ 100 mls/hr IV QID [facility] Last Infusion: 06/18/23 09:33 Dose: Infused Documented By: COLT Vancomycin HCl 1,000 mg/ (Sodium Chloride) 270 mls @ 270 mls/hr IV BID [facility] Last Infusion: 06/18/23 10:57 Dose: Infused Documented By: COLT Insulin Glargine (Insulin Glargine,Hum.Rec.Anlog 100 Unit/Ml 10 Ml Vial) 20 unit SUBCUT DAILY [facility] Last Admin: 06/18/23 08:53 Dose: 20 unit Documented By: COLT Insulin Human Lispro (Insulin Lispro 100 Unit/Ml 3 Ml Vial) 0 unit SUBCUT QIDACHS [facility]; Protocol Last Admin: 06/18/23 11:36 Dose: 4 unit Documented By: COLT Omeprazole (Omeprazole 20 Mg Capsule.Dr) 20 mg PO DAILY@0630 [facility] Last Admin: 06/18/23 05:33 Dose: 20 mg Documented By: MEREDITH Ondansetron HCl (Ondansetron Hcl 4 Mg/2 Ml Vial) 4 mg IVPUSH Q8H PRN PRN Reason: Nausea and Vomiting Oxycodone HCl (Oxycodone Hcl Immed Release 5 Mg Tablet) 5 mg PO Q6H PRN PRN Reason: Pain, Moderate(Pain Scale 4-6) Last Admin: 06/17/23 20:19 Dose: 5 mg Documented By: MEREDITH Pharmacy Consult (Consult Rx Vancomycin Dosing) 1 each MISCELLANE DAILY PRN PRN Reason: Consult order Sodium Chloride (0.9 % Sodium Chloride Flush 3 Ml Syringe) 3 ml IVFLUSH QSHIFT [facility] Last Admin: 06/18/23 09:46 Dose: 3 ml Documented By: COLT Tamsulosin HCl (Tamsulosin Hcl 0.4 Mg Capsule) 0.4 mg PO BEDTIME [facility] Last Admin: 06/17/23 20:20 Dose: 0.4 mg Documented By: MEREDITH Temazepam (Temazepam 15 Mg Capsule) 15 mg PO BEDTIME PRN PRN Reason: Insomnia Labs 06/18/23 07:19 06/18/23 07:19 Labs: Laboratory Results - last 24 hr 06/17/23 06/17/23 06/18/23 16:23 20:04 07:15 MCV MCH MCHC RDW Plt Count MPV Immature Gran % (Auto) Neut % (Auto) Lymph % (Auto) Alcorn % (Auto) Eos % (Auto) Baso % (Auto) Lymph # (Auto) [place] # (Auto) Eos # (Auto) Baso # (Auto) Abs Immat Gran (auto) Absolute Neuts (auto) Absolute Nucleated RBC Nucleated RBC % (auto) Anion Gap Estim Creat Clear Calc Estimated GFR POC Glucose 212 H 205 H 142 H Random Glucose Calcium 06/18/23 06/18/23 07:19 11:29 MCV 85.7 MCH 26.7 L MCHC 31.1 RDW 16.7 H Plt Count 367 MPV 10.4 Immature Gran % (Auto) 0.6 H Neut % (Auto) 71.2 Lymph % (Auto) 15.1 L Alcorn % (Auto) 9.4 Eos % (Auto) 3.0 Baso % (Auto) 0.7 Lymph # (Auto) 2.1 Alcorn # (Auto) 1.3 H Eos # (Auto) 0.4 Baso # (Auto) 0.1 Abs Immat Gran (auto) 0.08 H Absolute Neuts (auto) 10.1 H Absolute Nucleated RBC 0.000 Nucleated RBC % (auto) 0.0 Anion Gap 17 Estim Creat Clear Calc 101.9 Estimated GFR > 60 POC Glucose 211 H Random Glucose 151 H Calcium 8.7 D Microbiology Microbiology Results: Microbiology 06/17/23 03:34 Blood Culture - Preliminary Blood - Venous No growth after 24 hours. 06/17/23 Unknown Blood Culture - Preliminary Blood - Venous No growth after 24 hours. Assessment and Plan (1) Diabetic ulcer of left lower leg: Status: Acute (2) Hypokalemia: Status: Acute (3) PVD (peripheral vascular disease): Status: Acute (4) Type 2 diabetes mellitus: Status: Acute Plan 62 year old male whose history was obtained with the assistance of a security assurance specialist and who has multiple medical problems including CHF, DM2, asthma, BPH, PVD (follows up with Dr. Dia), HLD, & s/p R AKA and who was just recently discharged from hospital after a 6 day stay (06/04 - 06/09) for IV antibiotics for strep cellulitis of the LLE returns to hospital with 1. Cellulitis of LLE pain and swelling has improved no drainage, Continue IV vancomycin and Zosyn as per ID and will discharge on by mouth linezolid, blood culture showed no growth seen by vascular surgery he recommend Canelo wrap, off-loading and outpatient follow-up with him. acute on Chronic lactic acidosis not related to sepsis,likley due to metformin. 2 Type 2 diabetes mellitus - blood sugars stable, continue Lantus 20 units daily, home dose is Lantus 42 units ,continue insulin sliding ,scale monitor blood sugars 3. H/O Systolic CHF - with documented LVEF of 20-25%, on IV Lasix 60 mg stable electrolytes will transition to by mouth Lasix at a.m., resume low-dose of Coreg and lisinopril patient most likely noncompliant with home medications will request for VNA services upon discharge 4. Hypokalemia repleted and normalized was likely due to diuretics 5. Hypertension on lisinopril and Coreg patient not aware of his home medications will resume low-dose of lisinopril and Coreg 6.Hyperlipidemia - Atorvastatin 7.mild persistent Asthma, no exacerbation resume home inhalers, Combivent Respimat is non formulary. 8. DVT prophylaxis with Lovenox 9. Code status full code in my clinical judgment patient need continued inpatient hospitalization for IV antibiotic for left lower extremity cellulitis. Quality Stroke Does the patient have a stroke diagnosis?: No VTE Prior VTE?: No VTE Risk Level:: Medical - moderate - high VTE Device Contraindication: Treatment Not Indicated VTE Drug Contraindication: N/A - Med Ordered
[2023-06-18 15:07] LABS: Vancomycin Trough 22.5 mcg/mL (10.0-20.0)
[2023-06-18 15:12] VITALS: BP 132/65; PULSE 78; RESP 18; TEMP 36.2; O2SAT 99
[2023-06-18 16:08] LABS: Glucose, Whole Blood 265 mg/dL (60-115)
--- NOTE | 2023-06-18 16:25 | MHC.CM.PN ---
PT LIVES ALONE AND HAS 17 SMOKED MEAT PREPARER HOURS PER WEEK PT WAS ACTIVE [facility] V[facility] HOWEVER THEY ARE NOT TAKING HIM BACK DUE TO NON-COMPLIANCE PT IS AWARE A NEW VNA HAS BEEN SECURED HE SAYS HE USES A POWER W/C FOR MOBILITY AND CAN SELF TRANSFER PT HAS A HCP AND MOLST ON FILE PCP: ROBIN MOREJON INNER TUBE INSERTER USED DCP: HOME TOMORROW WITH RESUMPTION OF SMOKED MEAT PREPARER AND VNA FROM [facility] TRANSPORT
[2023-06-18 19:27] VITALS: BP 118/65; PULSE 83; RESP 18; TEMP 36.1; O2SAT 94
[2023-06-18] MEDS: carvediloL 6.25 MG TABLET PO (19:39)
[2023-06-18] MEDS: Tamsulosin HCL 0.4 MG CAPSULE PO (19:39)
[2023-06-18 19:50] LABS: Glucose, Whole Blood 168 mg/dL (60-115)
[2023-06-18] MEDS: Albuterol Sulfate (0.083%) 2.5 MG/3 ML VIAL.NEB INHALE (20:58)
[2023-06-18 21:00] VITALS: PULSE 85; RESP 24; O2SAT 99
--- NOTE | 2023-06-18 22:27 | PC.NURSE ---
Addendum entered by Nilam Fish RN 06/18/23 22:32: Pt is supposed to have repeat Vanco trough at 2000, no draw done, unaware if pt refused, no note from phleb, next Vancomycn dose at 2200 still on active order, the typewriter repairer started the dose, pharmacy called regarding this matter detention the med was started, med put on paused, Dr. Waggoner was notified, Dr. Waggoner said to continue and finish the dose. Original Note: Pt demanded his dakotah wrap over his left leg dressing be removed, reiterated to pt , that the dakotah wrap is what the MD has ordered and recommended, pt still insistent about removing, dakotah wrap removed.
[2023-06-19] MEDS: HYDROmorphone HCl 1 MG/ML SYRINGE 0.5 MG IVPUSH ×3 (02:17→12:19)
[2023-06-19 03:41] VITALS: BP 126/65; PULSE 82; RESP 14; TEMP 35.9; O2SAT 100
[2023-06-19] MEDS: Omeprazole 20 MG CAPSULE.DR PO (05:27)
[2023-06-19] MEDS: Enoxaparin Sodium 40 MG/0.4 ML SYRINGE SUBCUT (05:28)
[2023-06-19 06:49] LABS: Creatinine Clr Calc Pharmacy 86.7; Estimated Glomerular Filt Rate > 60
[2023-06-19 06:50] LABS: Vancomycin Random 18.6 mcg/mL (15-20)
--- NOTE | 2023-06-19 07:09 | HE.PHANOTE ---
VANCO DOSE ADJUSTMENT BASED ON SCR AND TROUGH OF 18.6 DOSE CONTINUED AT 1000 Q 12 STARTING 12/16 PM PATIENT ONLY CLEARED 4MG/L IN 12 HOURS
[2023-06-19 07:13] VITALS: BP 122/69; PULSE 80; RESP 18; TEMP 36; O2SAT 96
[2023-06-19 07:28] LABS: Glucose, Whole Blood 177 mg/dL (60-115)
[2023-06-19] MEDS: 0.9 % Sodium Chloride Flush 3 ML SYRINGE IVFLUSH (07:44)
[2023-06-19] MEDS: Furosemide 20 MG TABLET 60 MG PO (08:46)
[2023-06-19] MEDS: Aspirin Enteric Coated 81 MG TABLET.DR PO (08:46)
[2023-06-19] MEDS: lisinopriL 10 MG TABLET PO (08:46)
[2023-06-19] MEDS: carvediloL 6.25 MG TABLET PO (08:46)
[2023-06-19] MEDS: oxyCODONE HCl Immed Release 5 MG TABLET PO (08:46)
[2023-06-19] MEDS: Insulin Lispro 100 UNIT/ML 3 ML VIAL SUBCUT ×2 (08:47→12:17)
[2023-06-19] MEDS: Piperacillin Sodium/Tazobactam 3.375 GM in 0.9 % Sodium Chloride 50 ML IV ×2 (08:47→12:20)
[2023-06-19] MEDS: Insulin Glargine,Hum.rec.anlog 100 UNIT/ML 10 ML VIAL 20 UNIT SUBCUT (08:47)
[2023-06-19] MEDS: vancomycin HCL 1,000 MG in 0.9 % Sodium Chloride 250 ML 270 MG IV (09:57)
--- NOTE | 2023-06-19 11:08 | MHC.CM.PN ---
PATIENT IS DC HOME TODAY [facility] V[facility] MADE AWARE.
[2023-06-19 11:12] LABS: Glucose, Whole Blood 228 mg/dL (60-115)
--- NOTE | 2023-06-19 11:39 | P.F2F_ITS ---
Service Date Service Date: 06/19/23 Encounter Date of encounter: 06/19/23 Reasons for Services Signs and symptoms assessed: left lower extremity open wounds and left lower extremity cellulitis history of CHF diabetes mellitus uncontrolled blood sugars Homebound: Leaving the home is medically contraindicated at this time without the asist of a device and/or another person due th the listed conditions above and below. Reason homebound: pain with ambulation Certification: Based on the above findings, I certify that this patient is confined to the home and needs intermittent group home care, physical therapy and/or speech therapy, or continues to need occupational therapy. The patient is under my care, and I have initiated the establishment of the plan of care. The patient will be followed by a physician who will periodically review the plan of care. Time Spent With Patient Time: Total time managing care of this patient today ____ minutes.
--- NOTE | 2023-06-19 11:40 | PM.DS ---
DS: Providers Provider Date of Service: 06/19/23 Date of admission: 06/17/23 04:46 Primary care physician: Loli Augustin MD Consults: 06/17/23 04:50 Consult to Infectious Diseases [place]ine Consulting [place] [facility] [place] Reason for consultation: Cellulitis of LLE Has provider been notified: No 06/17/23 07:28 Consult to Vascular Surgery Routine Consulting Provider: Justin Dia Reason for consultation: left leg wounds /pvd Has provider been notified: No DS: Diagnosis Discharge Diagnosis (1) Diabetic ulcer of left lower leg: Status: Acute (2) Hypokalemia: Status: Acute (3) PVD (peripheral vascular disease): Status: Acute (4) Type 2 diabetes mellitus: Status: Acute DS: Summary Hospital Course Hospital Course: Date of Service: 06/17/23 Attending physician on admission: Demian Waggoner Chief Complaint: Worsening pain in the LLE Patient is a 62 year old male whose history was obtained with the assistance of a supervisor of communications and who has multiple medical problems including HFrEF, T2DM (on Insulin), asthma, BPH, PVD (follows up with Dr. 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 He rates his pain at a 10/10 and it is localized to the left leg/dennis area. He denies any associated fevers or chills. Work up done in the emergency room was significant for a leucocytosis of 14.1 k/mm3 with a left shift, elevated lactic acid at 3.3, elevated CRP at 3.64 and low calcium and albumin. He was started on IV Zosyn and Vancomycin for cellulitis and admission requested. His main complaint during my evaluation was significant pain in the affected limb. hospital course: 62 year old male whose history was obtained with the assistance of a supervisor of communications and who has multiple medical problems including CHF, DM2, asthma, BPH, PVD (follows up with Dr. Dia), HLD, & s/p R AKA and who was just recently discharged from hospital after a 6 day stay (06/04 - 06/09) for IV antibiotics for strep cellulitis of the LLE was discharged home on by mouth clindamycin and doxy returns to hospital with worsening left lower extremity swelling and pain and was readmitted to hospital with a diagnosis of cellulitis of left lower and left leg open wounds, patient treated with IV vancomycin and Zosyn blood culture showed no growth patient seen by vascular surgery he recommended daily dressing with Canelo wrap patient was continued on Lasix, likely recurrent symptoms due to noncompliance , patient also evaluated by Infectious Disease Dr. Meng she recommends 2 weeks of antibiotic since patient has swelling and pain has significantly improved he is being discharged home with VNA services for dressing change she is recommended to keep leg elevated and recommend compliance with home medications. 2 Type 2 diabetes mellitus - blood sugars fluctuating adjusted dose of Lantus recommend to follow diabetic diet 3. H/O Systolic CHF- with documented LVEF of 20-25%, initially treated with IV Lasix now being discharged home on Coreg 6.25 mg b.i.d. and Lasix 60 mg script of both medications has been came in since it seems patient has not been compliant with home medications and was not using previously prescribed Coreg of 25 mg b.i.d. strongly recommend close outpatient follow-up with Cardiology and being discharged home with VNA services due to medication noncompliance. 4. Hypokalemia repleted and normalized was likely due to diuretics. 5. Hypertension previously was on high dose of lisinopril 40 mg and Coreg 25 mg b.i.d. but on reviewing with pharmacy seems patient has not filled up lisinopril since November of 2022 patient is not aware of his home medications he is being discharged home on Coreg 6.25 b.i.d. and lisinopril 10 mg daily recommend close outpatient monitoring of blood pressure and follow-up with Cardiology. 6.Hyperlipidemia - Continue Atorvastatin 7.mild persistent Asthma, no exacerbation resume home inhalers. Time Attestation Discharge coordination time: Greater than 30 minutes Quality: Safe Use of Opioids Does Pt have an Active Cancer Diagnosis on the Problem List?: No Quality: Stroke Does the patient have a stroke diagnosis?: No Physical Exam Vital Signs: Vital Signs: Last Vital Signs Temp 96.8 F 06/19/23 07:13 Pulse 80 06/19/23 07:13 Resp 18 06/19/23 07:13 BP 122/69 06/19/23 07:13 Pulse Ox 96 06/19/23 07:13 O2 Del Method Room Air 06/19/23 07:13 BMI result Body Mass Index 34.7 Const: Other: Gen: in no acute distress HEENT: sclera anicteric, moist mucus membranes Neck: supple Lungs: clear to auscultation bilaterally Heart: regular rate and rhythm, no murmurs Abd: soft, non-tender, non-distended Ext: s/p R AKA , non healing left leg ulcers ,serosanguinous drainage , no foul odor, 2+ edema left leg, no worsening redness appears better than last admission Neuro: alert and oriented x3, no focal findings Psych: appropriate affect DS: Data Data Completed and Pending Completed studies during hospitalization [Text1]: Procedures Detachment at Right Lower Leg, Mid, Open Approach (12/21/22) Detachment at Right Upper Leg, Mid, Open Approach (03/16/23) Drainage of Perineum Skin, External Approach (12/10/20) Excision of Right Upper Leg Muscle, Open Approach (01/14/23) Insertion of Infusion Device into Superior Vena Cava, Percutaneous Approach (01/14/23) Introduction of Anesthetic Agent into Peripheral Nerves and Plexi, Percutaneous Approach (01/14/23) Ultrasonography of Superior Vena Cava, Guidance (01/14/23) Labs on day of discharge: Laboratory Results - last 24 hr 06/18/23 06/18/23 06/18/23 14:37 16:01 19:35 Creatinine Estim Creat Clear Calc Estimated GFR POC Glucose 265 H 168 H Vancomycin Trough 22.5 H Random Vancomycin 06/19/23 06/19/23 06/19/23 05:57 07:17 11:05 Creatinine 0.94 Estim Creat Clear Calc 86.7 Estimated GFR > 60 POC Glucose 177 H 228 H Vancomycin Trough Random Vancomycin 18.6 Preliminary micro results at discharge 06/17/23 03:34 Blood Culture - Preliminary Blood - Venous No growth after 48 hours. 06/17/23 Unknown Blood Culture - Preliminary Blood - Venous No growth after 48 hours. Discharge Plan Discharge Anticipated Discharge Date/Time: 06/19/23 11:24 Patient Disposition: Home Health Service Discharge Diagnosis: left lower extremity cellulitis Referrals: [facility] [Outside] - 1 Week Demetria,Loli, MD [Primary Care Provider] - 1 Week Discharge Medications: New carvedilol 6.25 mg Tablet 6.25 mg PO BID Qty: 60 0RF Protocol: Hold for SBP/HR < HOLD for SBP < : 90 HOLD for HR < : 60 lisinopril 10 mg Tablet 10 mg PO DAILY Qty: 30 0RF Protocol: Hold for SBP< HOLD for SBP < : 90 oxycodone 5 mg Tablet 5 mg PO Q8H PRN (Reason: Pain, Moderate(Pain Scale 4-6)) Qty: 14 0RF Rx Instructions: Partial Fill upon patient request. doxycycline hyclate 100 mg capsule 100 mg PO BID Qty: 28 0RF Continued atorvastatin 80 mg tablet 80 mg PO BEDTIME albuterol sulfate 2.5 mg /3 mL (0.083 %) solution for nebulization 2.5 mg inhalation Q4H PRN (Reason: Wheezing) pantoprazole 20 mg tablet,delayed release (DR/EC) 20 mg PO QAM albuterol sulfate [Ventolin HFA] 90 mcg/actuation HFA aerosol inhaler 2 puff INHALATION Q4H PRN (Reason: wheezing) Combivent Respimat 20-100 mcg/actuation mist 1 puff INHALATION QID aspirin 81 mg tablet,delayed release (DR/EC) 81 mg PO QAM tamsulosin 0.4 mg capsule 0.4 mg PO BEDTIME insulin lispro 100 unit/mL insulin pen 10 unit subcut BID@0800,1200 Rx Instructions: TWICE A DAY AT BREAKFAST AND LUNCH insulin lispro 100 unit/mL Insulin Pen 12 unit SUBCUT DAILY@1800 Rx Instructions: DAILY AT DINNER furosemide 20 mg tablet 60 mg PO DAILY Qty: 90 0RF Changed insulin glargine [Lantus Solostar U-100 Insulin] 100 unit/mL (3 mL) insulin pen 30 unit subcut DAILY Qty: 15 0RF Discontinued lisinopril 40 mg tablet 40 mg PO BEDTIME clindamycin HCl 300 mg capsule 300 mg PO Q8H Qty: 21 0RF doxycycline hyclate 100 mg tablet 100 mg PO BID Qty: 10 0RF carvedilol 25 mg tablet 25 mg PO BID Discharge Orders: Discharge Order (Routine); Ordered 06/19/23 Ordered By: Joel Mckeon Diet: Diabetic diet Activity on Discharge: As tolerated Stand Alone Forms: Patient Portal Discharge page Care Plan Goals: Apply Telfa on open wounds left leg followed by Kerlix wrap and 6 in Canelo wrap from foot to below knee daily keep left leg elevated take doxycycline 1 tablet twice daily for 2 weeks take Lasix daily Health Concerns: follow diabetic diet take Lantus insulin and before meal insulin take blood pressure medications as ordered Plan of Treatment: follow-up with primary care physician review all medications call for appointment in 1 week follow-up with Dr. Dia call for appointment in 2 weeks follow-up with your Cardiology please call for appointment Assessment: as above
--- NOTE | 2023-06-20 19:00 | P.CDIM_ITS ---
PROVIDER RESPONSE TEXT: To clarify, the appropriate diagnosis supported by the clinical indicators: Yes, Cellulitis of LLE is related to / associated with / due to Type 2 Diabetes Mellitus. QUERY TEXT: PHYSICIAN'S DOCUMENTATION REQUEST Date of Query: 06/18/2023 08:19 AM EST Patient Name: Reji Trejo Admit Date: 06/17/2023 Dear Joel Mckeon, A review of the medical record indicates additional documentation may be needed. Please review below and update the documentation accordingly. Documentation includes the conditions of Cellulitis of LLE and Type 2 Diabetes Mellitus. Clinical Indicators: Per Event Note 06/17/23: Cellulitis of LLE - with worsening edema, erythema and pain despite 2 weeks of antibiotics Continue IV vancomycin and Zosyn Follow ID and vascular surgery consult Please clarify the relationship between these conditions: Yes, Cellulitis of LLE is related to / associated with / due to Type 2 Diabetes Mellitus. No, Cellulitis of LLE is not related to / associated with / due to Type 2 Diabetes Mellitus. Other (explain) Clinically unable to determine (explain) Thank you, Za Auguste RN Use of terms such as suspected, likely, concern for, or probable (associated with a specific diagnosi s that is being evaluated, monitored, or treated as if it exists) are acceptable and can be coded in the inpatient se tting, when documented at the time of discharge. Please use your independent medical judgment in providing your response. THIS QUERY IS PART OF THE PERMANENT MEDICAL RECORD
== END 2023-06-19 13:56 | disposition home health service (06) | DRG 383 ==
LOC: HO.ED 03:19 → HO.EDOVER 04:57 → HO.S3 08:36 → HO.EDOVER 08:47 → HO.S3 13:38
PROVIDERS: Admitting Provider Internal Medicine; Emergency Provider Emergency Medicine Emergency Medical Services; PCP Family Medicine; Visit Provider Hospitalist
DX: L03.116 Cellulitis of left lower limb (principal); E11.628 Type 2 diabetes mellitus with other skin complications; E11.51 Type 2 diabetes mellitus with diabetic peripheral angiopathy without gangrene; L97.929 Non-pressure chronic ulcer of unspecified part of left lower leg with unspecified severity; I50.22 Chronic systolic (congestive) heart failure; I70.249 Atherosclerosis of native arteries of left leg with ulceration of unspecified site; I11.0 Hypertensive heart disease with heart failure; I25.10 Atherosclerotic heart disease of native coronary artery without angina pectoris; N40.0 Benign prostatic hyperplasia without lower urinary tract symptoms; J45.30 Mild persistent asthma, uncomplicated; E87.6 Hypokalemia; L02.416 Cutaneous abscess of left lower limb; Z89.511 Acquired absence of right leg below knee; Z91.199 Patient's noncompliance with other medical treatment and regimen due to unspecified reason; Z79.4 Long term (current) use of insulin; Z79.84 Long term (current) use of oral hypoglycemic drugs; Z79.899 Other long term (current) drug therapy
CPT/HCPCS: 36415; 80048; 80053; 80202; 82565; 82947; 83605; 85025; 85610; 85652; 85730; 86140; 87040; 94640; 99221; 99285; J0696; J1170; J1650; J1940; J2270; J2405; J2543; J3370

== ENCOUNTER → 2023-06-17 04:46 | Outpatient (BNV) | payer MEDICAID, SELFPAY | PROVIDERS: Admitting Provider Internal Medicine; Emergency Provider Emergency Medicine Emergency Medical Services; PCP Family Medicine; Visit Provider Internal Medicine | DX: L03.116 Cellulitis of left lower limb (principal); E11.622 Type 2 diabetes mellitus with other skin ulcer; L02.416 Cutaneous abscess of left lower limb; Z89.611 Acquired absence of right leg above knee; Z79.4 Long term (current) use of insulin; I73.9 Peripheral vascular disease, unspecified; E87.6 Hypokalemia | CPT/HCPCS: 99223; 99233; 99239; 99499; G0180 ==

== ENCOUNTER → 2023-06-17 04:46 | Outpatient (BNV) | payer MEDICAID, SELFPAY | PROVIDERS: Admitting Provider Internal Medicine; Emergency Provider Emergency Medicine Emergency Medical Services; PCP Family Medicine; Visit Provider Internal Medicine | DX: E11.622 Type 2 diabetes mellitus with other skin ulcer (principal); L97.929 Non-pressure chronic ulcer of unspecified part of left lower leg with unspecified severity; I73.9 Peripheral vascular disease, unspecified | CPT/HCPCS: 99222 ==

== ENCOUNTER → 2023-06-17 04:46 | Outpatient (BNV) | payer MEDICAID, SELFPAY | PROVIDERS: Admitting Provider Internal Medicine; Emergency Provider Emergency Medicine Emergency Medical Services; PCP Family Medicine; Visit Provider Surgery Vascular Surgery | DX: I73.9 Peripheral vascular disease, unspecified (principal); E11.622 Type 2 diabetes mellitus with other skin ulcer; L97.929 Non-pressure chronic ulcer of unspecified part of left lower leg with unspecified severity | CPT/HCPCS: 99222; 99232 ==

== ENCOUNTER 2023-06-21 01:15 | Emergency (ER) | payer MEDICAID, SELFPAY ==
[2023-06-21] VITALS (8 sets, daily range): BP systolic 118–155; BP diastolic 54–78; PULSE 70–84; RESP 14–18; TEMP 36.6–36.8; O2SAT 96–99; BMI 32.1
--- NOTE | ~2023-06-21 | US_ITS ---
EXAMINATION: US VENOUS ULTRASOUND WITH DOPPLER LOWER EXTREMITY, LEFT CLINICAL INFORMATION: Pain and swelling COMPARISON: 06.04.2023 TECHNIQUE: Ultrasound of the deep veins is performed from the hip to the calf with compression sonography and color and pulse Doppler assessment. Spectral analysis with color-flow imaging is performed. FINDINGS: There is normal venous compression and respiratory variation and augmented flow. The visualized common femoral vein, superficial femoral vein, profunda femoral vein, popliteal vein, and the trifurcation region shows no evidence of deep venous thrombosis. There is a 4.1 x 1.1 x 1.1 cm simple appearing popliteal cyst. If the patient's symptoms persist, followup ultrasound in 5 days 7 days might be of value to exclude proximal propagation from a non-visualized calf vein. US/US venous duplex LE IMPRESSION: No DVT demonstrated in the left lower extremity.
--- NOTE | ~2023-06-21 | XR_ITS ---
EXAMINATION: XR CHEST CLINICAL INFORMATION: Chest heaviness. Cough. COMPARISON: 06/04/2023 TECHNIQUE: Frontal view of the chest was obtained. FINDINGS: Cardiomegaly and pulmonary venous congestion with minor fissure. Edema evidenced by Rob B-lines. Diffuse bronchial wall thickening redemonstrated. No focal consolidation. No pleural effusion or pneumothorax. No acute osseous abnormalities. XR/XR chest 1V IMPRESSION: * Cardiomegaly, pulmonary venous congestion and mild interstitial edema. * Diffuse bronchial wall thickening redemonstrated.
--- NOTE | 2023-06-21 01:20 | ECG_ITS ---
Test Reason : CP Blood Pressure : / mmHG Vent. Rate : 079 BPM Atrial Rate : 079 BPM P-R Int : 178 ms QRS Dur : 156 ms QT Int : 450 ms P-R-T Axes : 060 -50 110 degrees QTc Int : 516 ms Sinus rhythm with occasional Premature ventricular complexes Possible Left atrial enlargement Left axis deviation Left bundle branch block Abnormal ECG When compared with ECG of 04-JUN-2023 18:16, Premature ventricular complexes are now Present Premature atrial complexes are no longer Present Left bundle branch block is no longer Present Inferior infarct is now Present Referred By: Generic ED Physician Electronically Signed By:GLEN JAIN MD
[2023-06-21 03:12] LABS: MANUAL DIFF FLAG NO
[2023-06-21 03:13] LABS: Basophils Absolute Auto 0.1 X10*3/uL (0.0-0.2); Basophils Percent Auto 0.4 % (0-2); Eosinophils Absolute Auto 1.2 X10*3/uL (0.0-0.4); Eosinophils Percent Auto 9.3 % (0-4); Hematocrit 36.6 % (42.0-52.0); Hemoglobin 11.3 g/dl (14.0-18.0); Imm Gran Abs Auto 0.06 X10*3/uL (0.00-0.03); Imm Gran Pct Auto 0.4 % (0.0-0.4); Lymphocytes Absolute Auto 1.6 X10*3/uL (1.2-4.9); Mean Corpuscular HGB Conc 30.9 g/dl (31.0-36.0); Mean Corpuscular Hemoglobin 26.7 pg (27.0-33.0); Mean Corpuscular Volume 86.5 fL (80.0-98.0); Mean Platelet Volume 10.1 fL (9.4-12.4); Monocytes Absolute Auto 0.9 X10*3/uL (0.1-1.2); Monocytes Percent Auto 6.7 % (2-11); Neutrophils Absolute Auto 9.5 x10*3/uL (2.0-8.3); Neutrophils Percent Auto 71.2 % (45-73); Platelet Count 332 X10*3/uL (160-400); Red Blood Count 4.23 X10*6/uL (4.60-5.80); White Blood Count 13.4 X10*3/uL (4.8-10.8)
[2023-06-21 03:27] LABS: Anion Gap 18 (12-20); Blood Urea Nitrogen 22 mg/dL (9-16); Calcium 8.5 mg/dL (8.4-10.2); Carbon Dioxide 23 mmol/L (22-29); Chloride 103 mmol/L (96-108); Creatinine Clr Calc Pharmacy 69.4; Estimated Glomerular Filt Rate > 60; Glucose Random 173 mg/dL (60-115); Potassium 3.8 mmol/L (3.3-5.1); Sodium 140 mmol/L (135-145)
[2023-06-21 03:35] LABS: Troponin-I High Sensitivity 27.9 ng/L (<3.5-35.0)
[2023-06-21] MEDS: Morphine Sulfate 4 MG/ML CARTRIDGE IVPUSH (04:43)
[2023-06-21 05:14] LABS: Troponin-I High Sensitivity 24.8 ng/L (<3.5-35.0)
[2023-06-21 05:32] LABS: Influenza A PCR NEGATIVE (Negative); Influenza B PCR NEGATIVE (Negative); Resp Syncy Virus RNA Qual PCR NEGATIVE (Negative); SARS COV2 PCR INHOUSE NEGATIVE (Negative)
--- NOTE | 2023-06-21 06:50 | ED.CHESTPAIN ---
HPI - Chest Pain General Chief Complaint: Chest Pain Stated Complaint: CP with difficulty breathing, foot infection ? Time Seen by Provider: 06/21/23 06:27 Source: patient and paraprofessional interpreter Mode of arrival: EMS Limitations: language barrier History of Present Illness HPI narrative: Patient is a 62-year-old [place]ill[place]-speaking male with history of HFrEF, T2DM, asthma, BPH, PVD, HLD, and s/p R AKA presenting to the emergency department with complaint of right anterior chest pain since last night which he states has since resolved. Patient is also complaining of left lower leg pain. Was recently discharged from the hospital after admission for LLE cellulitis. He was discharged home on doxycycline and oxycodone with VNA following. He denies shortness of breath or palpitations but does report mild nonproductive cough. Denies fevers. Reports he has been taking his medications as prescribed. MD complaint: chest pain Pertinent past history: asthma and other (HFrEF) Onset (ago): hour(s) Timing of current episode: now resolved Onset: during rest Pain location: right chest Pain radiation: left arm Severity: moderate Quality: aching Relieving factors: nothing Exacerbating factors: palpation Associated symptoms: cough Treatment prior to arrival: none Related Data Home Medications Medication Instructions Recorded Confirmed albuterol sulfate 2.5 mg/3 mL 2.5 mg inhalation Q4H PRN Wheezing 06/04/23 06/17/23 (0.083 %) solution for nebulization albuterol sulfate 90 mcg/actuation 2 puff inhalation Q4H PRN wheezing 06/04/23 06/17/23 aerosol inhaler (Ventolin HFA) atorvastatin 80 mg tablet 80 mg PO BEDTIME 06/04/23 06/04/23 ipratropium 20 mcg-albuterol 100 1 puff inhalation QID 06/04/23 06/04/23 mcg/actuation mist for inhalation (Combivent Respimat) pantoprazole 20 mg tablet,delayed 20 mg PO QAM 06/04/23 06/04/23 release aspirin 81 mg tablet,delayed 81 mg PO QAM 06/17/23 06/17/23 release insulin lispro 100 unit/mL 10 unit subcut BID@0800,1200 06/17/23 06/17/23 subcutaneous pen insulin lispro 100 unit/mL 12 unit subcut DAILY@1800 06/17/23 06/17/23 subcutaneous pen tamsulosin 0.4 mg capsule 0.4 mg PO BEDTIME 06/17/23 06/17/23 Previous Rx's Medication Instructions Recorded carvedilol 6.25 mg tablet 6.25 mg PO BID #60 tabs 06/19/23 doxycycline hyclate 100 mg capsule 100 mg PO BID #28 caps 06/19/23 furosemide 20 mg tablet 60 mg (3 x 20 mg) PO DAILY #90 tabs 06/19/23 insulin glargine 100 unit/mL (3 30 unit (0.3 mL) subcut DAILY #15 06/19/23 mL) subcutaneous pen (Lantus mL Solostar U-100 Insulin) lisinopril 10 mg tablet 10 mg PO DAILY #30 tabs 06/19/23 oxycodone 5 mg tablet 5 mg PO Q8H PRN Pain, 06/19/23 Moderate(Pain Scale 4-6) #14 tabs Allergies Allergy/AdvReac Type Severity Reaction Status Date / Time No Known Allergies Allergy Verified 04/27/23 14:10 Review of Systems Review of Systems: As per HPI Yes all other systems are reviewed and are negative Constitutional: Constitutional: Reports as per HPI PMFSH Past Medical History Medical History PAD (peripheral artery disease) Right above-knee amputee History of right above knee amputation Infection of amputation site of lower extremity BKA stump complication Below-knee amputation of right lower extremity BPH (benign prostatic hyperplasia) Cardiomyopathy CAD (coronary artery disease) History of peripheral vascular disease Coronary artery disease Cardiomyopathy Essential hypertension Type 2 diabetes mellitus with unspecified complications Abscess, perineum Asthma High cholesterol HTN (hypertension) Diabetes Surgical History History of surgical removal of pilonidal cyst Hx of hand surgery Hx of hand surgery History of cardiac cath S/P angiogram of extremity Hx of varicose vein stripping Family History Family History Father No problems noted. Mother Diabetes HTN (hypertension) Sister No problems noted. Sister Diabetes HTN (hypertension) Sister No problems noted. Social History Social History Household Members: None Household Members Other:: SELF Housing: Apartment Housing Other:: elderly housing Are you a primary ambulatory care to a significant other at home: No Do you presently have visiting nurse or other home services: Yes Alcohol intake: never Comment: Refused bed and chair alarm. Patient Tobacco Use Status: Current everyday Tobacco user Tobacco use type: Cigarette Cigarette Packs Per Day: 0.5 Cigarettes Per Day: 10 Years Smoked: 15+ Smoked in Last 30 Days: Yes Second Hand Smoke Exposure: No Use of substances other than those prescribed or required for medical reasons: No Advance Directives: Yes Advance Directives on File: Yes Advance Directives Date on File: 12/10/20 service: No Current occupational status: disabled Physical Exam Vital Signs: Vital Signs: Last Vital Signs Temp 98.2 F 06/21/23 07:20 Pulse 72 06/21/23 07:20 Resp 14 06/21/23 07:20 BP 128/63 06/21/23 07:20 Pulse Ox 97 06/21/23 07:20 O2 Del Method Room Air 06/21/23 07:20 BMI result Body Mass Index 32.1 Vital signs have been reviewed and appear to be correct. Blood pressure normal. Heart rate normal. Respiratory rate normal. Temperature normal. Oxygen saturation normal. Const: General: cooperative and no acute distress Orientation/consciousness: oriented to person, oriented to place, oriented to time and patient oriented x3 Limitations: no limitations HEENT: Head: Yes normocephalic and Yes atraumatic Ears: external ears normal General nose exam: Normal external nose present Face and sinus: Yes face symmetric Mouth: oropharynx normal and moist mucous membranes Throat: Yes uvula midline Eyes: Pupils: Equal, round and reactive pupils present Neck: Neck: Yes normal visual inspection and Yes supple Chest: Chest palpation & inspection: normal inspection of the chest and tenderness (mild tenderness with palpation right anterior chest ) Resp: Effort & Inspection: normal respiratory effort and able to speak in complete sentences Auscultation: clear to auscultation bilaterally and wheezes scattered wheezes Cardio: Rate: regular rate Rhythm: regular rhythm Heart sounds: S1 normal heart sound present and S2 normal heart sound present GI: Palpation (GI): Soft to palpation and nontender Auscultation: normoactive bowel sounds : General: Yes no CVA tenderness Back/Spine/Pelvis: Back: no CVA tenderness Skin: General skin exam: elasticity normal and turgor normal Neuro: General: oriented to person, oriented to place, oriented to time, patient oriented x3, moves all extremities, no focal motor deficits and CN's II-XI intact bilaterally Cranial nerves: Yes Equal, round and reactive pupils present Cognition (Neuro): normal cognition Extrem: Right lower extremity: abnormal to inspection (AKA) Left lower extremity: lower leg (mild calf tenderness); abnormal to inspection (left lower leg ulcers draining serosanguinous fluid, 2+ edema) Psych: Mental Status: mental status grossly normal Medications Administered Discontinued Medications Generic Name Dose Route Start Last Admin Trade Name Freq PRN Reason Stop Dose Admin Morphine Sulfate 4 mg 06/21/23 04:25 06/21/23 04:43 Morphine Sulfate 4 Mg/Ml Cartridge IVPUSH 06/21/23 04:26 4 mg ONCE STA Administration Protocol Medical Decision Making Medical Decision Making MDM Narrative: Patient is a 62-year-old [place]-speaking male with history of HFrEF, T2DM, asthma, BPH, PVD, HLD, and s/p R AKA presenting to the emergency department with complaint of right anterior chest pain since last night which he states has since resolved. On exam patient is awake, A+Ox3, VS WNL, afebrile, normal neurological exam without focal deficits, physical exam findings as above. Given reported symptoms and physical exam findings, initial differential includes ACS, asthma exacerbation, viral illness, LLE DVT. Labs notable for mild leukocytosis improved since discharge on 06/19, chronic stable anemia, mildly elevated glucose, elevated BUN, flat troponins. Swabs for Covid, flu, RSV all negative. EKG shows sinus rhythm with occasional PVCs. HEART score 5. Ultrasound notable for no DVT. My interpretation is in agreement with the radiologist's interpretation. Patient stating that he does not have any pain medication at home, but was discharged with #14 oxycodone on 06/19. Patient stating chest pain has resolved and his primary complaint is LLE pain. Patient is being treated for cellulitis, has VNA following, and has adequate home pain medications. States he has inhaler and nebulized albuterol at home for dyspnea/wheezing. Feel patient is stable for discharge home at this time and this was discussed with patient via paraprofessional interpreter. All results discussed and all questions answered. Differential Diagnosis Differential Diagnoses: The differential diagnosis associated with the presentation includes As per [facility]. Admission/Observation Consideration of admission/observation: Escalation of care including admission/observation considered Lab Data [facility] Lab Attestation statement: I reviewed the patient's lab results. As per [facility]. 06/21/23 02:36 06/21/23 02:36 Labs: Lab Results 06/21/23 06/21/23 Range/Units 02:36 04:50 WBC 13.4 H (4.8-10.8) X10*3/uL RBC 4.23 L (4.60-5.80) X10*6/uL Hgb 11.3 L (14.0-18.0) g/dl Hct 36.6 L (42.0-52.0) % MCV 86.5 (80.0-98.0) fL MCH 26.7 L (27.0-33.0) pg MCHC 30.9 L (31.0-36.0) g/dl RDW 17.0 H (11.0-16.0) % Plt Count 332 (160-400) X10*3/uL MPV 10.1 (9.4-12.4) fL Immature Gran % (Auto) 0.4 (0.0-0.4) % Neut % (Auto) 71.2 (45-73) % Lymph % (Auto) 12.0 L (20-40) % [place] % (Auto) 6.7 (2-11) % Eos % (Auto) 9.3 H (0-4) % Baso % (Auto) 0.4 (0-2) % Lymph # (Auto) 1.6 (1.2-4.9) X10*3/uL [place] # (Auto) 0.9 (0.1-1.2) X10*3/uL Eos # (Auto) 1.2 H (0.0-0.4) X10*3/uL Baso # (Auto) 0.1 (0.0-0.2) X10*3/uL Abs Immat Gran (auto) 0.06 H (0.00-0.03) X10*3/uL Absolute Neuts (auto) 9.5 H (2.0-8.3) x10*3/uL Absolute Nucleated RBC 0.000 (0.0-0.012) X10*3/uL Nucleated RBC % (auto) 0.0 (0.0-0.2) /100WBC Sodium 140 (135-145) mmol/L Potassium 3.8 (3.3-5.1) mmol/L Chloride 103 (96-108) mmol/L Carbon Dioxide 23 (22-29) mmol/L Anion Gap 18 (12-20) BUN 22 H (9-16) mg/dL Creatinine 1.13 (0.5-1.4) mg/dL Estim Creat Clear Calc 69.4 Estimated GFR > 60 Random Glucose 173 H (60-115) mg/dL Calcium 8.5 (8.4-10.2) mg/dL Troponin I High Sens 27.9 24.8 (<3.5-35.0) ng/L Influenza Type A (PCR) NEGATIVE (Negative) Influenza Type B (PCR) NEGATIVE (Negative) RSV RNA Qual (PCR) NEGATIVE (Negative) SARS-CoV-2 RNA (RT-PCR) NEGATIVE (Negative) Independent Interpretation I performed an independent interpretation of an: EKG (sinus rhythm with occasional PVCs, rate 79 bpm, normal NE interval), Plain X-Ray and Ultrasound Interpretation: Mild interstitial edema on CXR No DVT on LLE U/S Radiology Impression Discussion of test interpretation with radiology: I have reviewed the radiologist's reading. Radiologist Impression: XR/XR chest 1V IMPRESSION: * Cardiomegaly, pulmonary venous congestion and mild interstitial edema. * Diffuse bronchial wall thickening redemonstrated. US/US venous duplex LE LT IMPRESSION: No DVT demonstrated in the left lower extremity. External Record Review External record reviewed: Inpatient record, Office record and Outpatient record Chronic Conditions Patient?s care impacted by: Diabetes and Other Scores Heart Score History: -0- slightly suspicious ECG: -1- non specific repolarization disturbance Age: -1- >45 - <65 Risk factory: -2- 3 or more risk factors or treated atherosclerosis Troponin: -1- >1 - <3x normal limit Score: 5 Risk: 16.6% Discharge Plan Discharge Clinical Impression: Atypical chest pain Patient Disposition: Home, Self-Care Instructions: Chest Pain (DC) Additional Instructions: Hoy lo evaluaron en el departamento de emergencias por dolor en el pecho. [place] evaluaci?n no hunt mostrado signos de condiciones m?dicas que requieran berry intervenci?n de emergencia en neris momento; sin embargo, le recomendamos que realice un seguimiento con mag[place]on m?dico de atenci?n primaria o magallon cardi?logo lo antes posible para realizar m?s pruebas beltran paciente ambulatorio. Programe berry wu de seguimiento con magallon m?dico de atenci?n primaria lo antes posible. Regrese al departamento de emergencias si experimenta dolor en el pecho incontrolado o que empeora, dificultad para respirar, aturdimiento, sensaci?n de desmayo, p?rdida del conocimiento, n?useas, v?mitos o cualquier otro s?ntoma preocupante. Le recetaron oxicodona cuando le dieron de saadia recientemente del hospital para que la tomara cada 8 horas, seg?n fuera necesario. Debe tener un suministro adecuado de neris medicamento en casa; t?huitron seg?n lo prescrito para el dolor intenso en las piernas. Prescriptions: No Action atorvastatin 80 mg tablet 80 mg PO BEDTIME albuterol sulfate 2.5 mg /3 mL (0.083 %) solution for nebulization 2.5 mg inhalation Q4H PRN (Reason: Wheezing) pantoprazole 20 mg tablet,delayed release (DR/EC) 20 mg PO QAM albuterol sulfate [Ventolin HFA] 90 mcg/actuation HFA aerosol inhaler 2 puff INHALATION Q4H PRN (Reason: wheezing) Combivent Respimat 20-100 mcg/actuation mist 1 puff INHALATION QID aspirin 81 mg tablet,delayed release (DR/EC) 81 mg PO QAM tamsulosin 0.4 mg capsule 0.4 mg PO BEDTIME insulin lispro 100 unit/mL insulin pen 10 unit subcut BID@0800,1200 Rx Instructions: TWICE A DAY AT BREAKFAST AND LUNCH insulin lispro 100 unit/mL Insulin Pen 12 unit SUBCUT DAILY@1800 Rx Instructions: DAILY AT DINNER carvedilol 6.25 mg Tablet 6.25 mg PO BID Qty: 60 0RF Protocol: Hold for SBP/HR < HOLD for SBP < : 90 HOLD for HR < : 60 lisinopril 10 mg Tablet 10 mg PO DAILY Qty: 30 0RF Protocol: Hold for SBP< HOLD for SBP < : 90 oxycodone 5 mg Tablet 5 mg PO Q8H PRN (Reason: Pain, Moderate(Pain Scale 4-6)) Qty: 14 0RF Rx Instructions: Partial Fill upon patient request. doxycycline hyclate 100 mg capsule 100 mg PO BID Qty: 28 0RF furosemide 20 mg tablet 60 mg PO DAILY Qty: 90 0RF insulin glargine [Lantus Solostar U-100 Insulin] 100 unit/mL (3 mL) insulin pen 30 unit subcut DAILY Qty: 15 0RF Print Language: An[place]ill[place]
[2023-06-21] MEDS: oxyCODONE HCl Immed Release 5 MG TABLET PO (08:50)
--- NOTE | 2023-06-21 10:13 | MHC.CM.ED ---
Received telephone call from Sharad of [facility]. Patient is active with their agency. [employer] has reported to Sharad that patient does not take his medication as scheduled. T/W verified patient has the capacity to make bad decisions and that patient can't be held here against his will for not taking his medications as ordered. Sharad veribalized understanding. Copy of ER d/c faxed to [phone] as requested. Continue to monitor for d/c needs.
== END 2023-06-21 10:42 | disposition home or self-care (01) ==
PROVIDERS: Emergency Provider Emergency Medicine; PCP Family Medicine
DX: R07.89 Other chest pain (principal); R06.02 Shortness of breath; R60.0 Localized edema; M79.605 Pain in left leg; F17.210 Nicotine dependence, cigarettes, uncomplicated; Z20.822 Contact with and (suspected) exposure to COVID-19; Z20.828 Contact with and (suspected) exposure to other viral communicable diseases; Z71.6 Tobacco abuse counseling; Z79.899 Other long term (current) drug therapy
CPT/HCPCS: 0241U; 36415; 71045; 80048; 84484; 85025; 93005; 93971; 96374; 99284; 99285; J2270

== ENCOUNTER → 2023-06-21 01:20 | Outpatient (BNV) | payer MEDICAID, SELFPAY | PROVIDERS: Emergency Provider Emergency Medicine; PCP Family Medicine; Visit Provider Internal Medicine Cardiovascular Disease | DX: I49.3 Ventricular premature depolarization (principal); R94.31 Abnormal electrocardiogram [ECG] [EKG] | CPT/HCPCS: 93010 ==

== ENCOUNTER 2023-06-24 04:06 | Inpatient (IN) | payer MEDICAID, SELFPAY ==
[2023-06-24] VITALS (10 sets, daily range): BP systolic 104–156; BP diastolic 37–78; PULSE 74–96; RESP 16–18; TEMP 36–37.2; O2SAT 96–99; BMI 29.0
--- NOTE | 2023-06-24 04:09 | ED_ITS ---
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 Sent home with doxycycline for 2 weeks and oxycodone/VNA services. Since then he has been seen in the ED on 06/21 for chest pain and DC home - just had negative DVT study. 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 He has no fevers. He has no pain medications at home. He wants us to say it is okay for his neighbor to help him change the dressings. He is mostly wanting some morphine for his pain. MD Complaint: extremity pain and extremity swelling Onset (ago): month(s) Pain Consistency: intermittent Location: left and lower extremity Quality: aching Radiation: distal Relieving factors: nothing Exacerbating factors: palpation Associated symptoms: denies other symptoms Context: other (chronic recurrent cellulitis) Related Data Home Medications Medication Instructions Recorded Confirmed albuterol sulfate 2.5 mg/3 mL 2.5 mg inhalation Q4H PRN Wheezing 06/04/23 06/17/23 (0.083 %) solution for nebulization albuterol sulfate 90 mcg/actuation 2 puff inhalation Q4H PRN wheezing 06/04/23 06/17/23 aerosol inhaler (Ventolin HFA) atorvastatin 80 mg tablet 80 mg PO BEDTIME 06/04/23 06/04/23 ipratropium 20 mcg-albuterol 100 1 puff inhalation QID 06/04/23 06/04/23 mcg/actuation mist for inhalation (Combivent Respimat) pantoprazole 20 mg tablet,delayed 20 mg PO QAM 06/04/23 06/04/23 release aspirin 81 mg tablet,delayed 81 mg PO QAM 06/17/23 06/17/23 release insulin lispro 100 unit/mL 10 unit subcut BID@0800,1200 06/17/23 06/17/23 subcutaneous pen insulin lispro 100 unit/mL 12 unit subcut DAILY@1800 06/17/23 06/17/23 subcutaneous pen tamsulosin 0.4 mg capsule 0.4 mg PO BEDTIME 06/17/23 06/17/23 Previous Rx's Medication Instructions Recorded carvedilol 6.25 mg tablet 6.25 mg PO BID #60 tabs 06/19/23 doxycycline hyclate 100 mg capsule 100 mg PO BID #28 caps 06/19/23 furosemide 20 mg tablet 60 mg (3 x 20 mg) PO DAILY #90 tabs 06/19/23 insulin glargine 100 unit/mL (3 30 unit (0.3 mL) subcut DAILY #15 06/19/23 mL) subcutaneous pen (Lantus mL Solostar U-100 Insulin) lisinopril 10 mg tablet 10 mg PO DAILY #30 tabs 06/19/23 oxycodone 5 mg tablet 5 mg PO Q8H PRN Pain, 06/19/23 Moderate(Pain Scale 4-6) #14 tabs Allergies Allergy/AdvReac Type Severity Reaction Status Date / Time No Known Allergies Allergy Verified 04/27/23 14:10 Review of Systems 2 Review of Systems: Constitutional : No Fever, No Chills ENT/Mouth : No sore throat, No Rhinorrhea Eyes: No Eye Pain, No Swelling, No Redness Cardiovascular : No Chest Pain, No SOB, pos edema Respiratory : No Cough, No Sputum Gastrointestinal : No Nausea, No Vomiting, No Diarrhea, No abdominal Pain Genitourinary : No Dysuria, No Hematuria Musculoskeletal : pos joint pain, No Myalgias, No Joint Swelling Skin : No Skin Lesions, positive skin rash Neuro : No Weakness, No Numbness, No Headache Psych : No Anxiety, No Depression Heme/Lymph: No Bruising, No Bleeding,No Lymphadenopathy Endocrine : No Polyuria, No Polydipsia All other systems reviewed and are negative [facility] Past Medical History Attestation statement: The following information was validated with the patient. Source: old records reviewed Medical History PAD (peripheral artery disease) Right above-knee amputee History of right above knee amputation Infection of amputation site of lower extremity BKA stump complication Below-knee amputation of right lower extremity BPH (benign prostatic hyperplasia) Cardiomyopathy CAD (coronary artery disease) History of peripheral vascular disease Coronary artery disease Cardiomyopathy Essential hypertension Type 2 diabetes mellitus with unspecified complications Abscess, perineum Asthma High cholesterol HTN (hypertension) Diabetes Surgical History History of surgical removal of pilonidal cyst Hx of hand surgery Hx of hand surgery History of cardiac cath S/P angiogram of extremity Hx of varicose vein stripping Family History Family History Father No problems noted. Mother Diabetes HTN (hypertension) Sister No problems noted. Sister Diabetes HTN (hypertension) Sister No problems noted. Social History Social History Household Members: None Household Members Other:: SELF Housing: Apartment Housing Other:: elderly housing Are you a primary resident care manager to a significant other at home: No Do you presently have visiting nurse or other home services: Yes Alcohol intake: never Comment: Refused bed and chair alarm. Patient Tobacco Use Status: Current everyday Tobacco user Tobacco use type: Cigarette Cigarette Packs Per Day: 0.5 Cigarettes Per Day: 10 Years Smoked: 15+ Second Hand Smoke Exposure: No Advance Directives: Yes Advance Directives on File: Yes Advance Directives Date on File: 12/10/20 service: No Current occupational status: disabled Physical Exam 2 Vital Signs: Vital Signs: Last Vital Signs Temp 97.8 F 06/24/23 04:11 Pulse 78 06/24/23 05:27 Resp 18 06/24/23 04:11 BP 104/37 L 06/24/23 05:27 Pulse Ox 99 06/24/23 04:11 O2 Del Method Room Air 06/24/23 04:11 BMI result Body Mass Index 29.0 Appearance: Alert. Oriented X3. No acute distress. Eyes: Pupils equal, round and reactive to light. ENT: Pharynx normal. Neck: Normal inspection. Neck supple. CVS: Normal heart rate and rhythm. Pulses normal. Respiratory: No respiratory distress. Breath sounds normal. Abdomen: Soft and nontender. Skin: Skin warm and dry. pale skin color. Normal skin turgor. Extremities: l left 1-2+ pitting edema, pink and shiny mildly warm to touch, foot is swollen as well multiple superficial shallow ulcers noted but no fluctuance there is thin yellowish drainage seen no raised erythema it appears very similar to picture from recent ED visit please see picture below Neuro: Oriented X 3. No motor deficit. No sensory deficit. Course Course Course Narrative: at this time increasing WBC count despite antibiotic treatments since 06/17 will start on zosyn and vancomycin and admit for further workup all lab trends worse Medications Administered Discontinued Medications Generic Name Dose Route Start Last Admin Trade Name Valentine PRN Reason Stop Dose Admin Furosemide 40 mg 06/24/23 05:12 06/24/23 05:27 Furosemide 40 Mg/4 Ml Vial IVPUSH 06/24/23 05:13 Not Given STAT STA Protocol Piperacillin Sod/Tazobactam 50 mls @ 100 mls/hr 06/24/23 05:02 06/24/23 05:24 Sod 3.375 gm/ Sodium Chloride IV 06/24/23 05:31 100 mls/hr ONCE ONE Administration Morphine Sulfate 15 mg 06/24/23 04:25 06/24/23 04:44 Morphine Sulfate Immed Release 15 Mg Tablet PO 06/24/23 04:26 15 mg ONCE ONE Administration Medical Decision Making Medical Decision Making MDM Narrative: 62 yo male with PMH of PAD, DM, R AKA, cellulitis, osteo, BPH, asthma, HLD, CHF with EF 20-25% with recurrent visits for leg pain and cellulitis likely in setting of not taking antibiotic. He has not been able to change his dressing but has a neighbor who will help until his POWERTRAIN DESIGN ENGINEER returns - he declines rehab. His leg appears chronically infected it is swollen but he just had 2 negative DVT studies this month and the leg today is very similar to the previous visits. His main driving complaint is pain. At this time will dress the wounds, obtain basic labs and depending on trend continue doxy or start IV abx. Differential Diagnosis Differential Diagnoses: The differential diagnosis associated with the presentation includes chronic diabetic ulcer, leg pain Admission/Observation Consideration of admission/observation: Escalation of care including admission/observation considered leg appears similar but labs trend worse and WBC count 18 Consult Healthcare Provider Management of the patient was discussed with: Hospitalist (will admit) Lab Data [facility] Lab Attestation statement: I reviewed the patient's lab results. 06/24/23 04:39 06/24/23 04:39 Labs: Lab Results 06/24/23 06/24/23 Range/Units 04:39 05:15 WBC 18.2 H (4.8-10.8) X10*3/uL RBC 4.51 L (4.60-5.80) X10*6/uL Hgb 11.8 L (14.0-18.0) g/dl Hct 38.4 L (42.0-52.0) % MCV 85.1 (80.0-98.0) fL MCH 26.2 L (27.0-33.0) pg MCHC 30.7 L (31.0-36.0) g/dl RDW 16.9 H (11.0-16.0) % Plt Count 354 (160-400) X10*3/uL MPV 9.3 L (9.4-12.4) fL Immature Gran % (Auto) 0.4 (0.0-0.4) % Neut % (Auto) 80.9 H (45-73) % Lymph % (Auto) 7.9 L (20-40) % Dolores % (Auto) 7.7 (2-11) % Eos % (Auto) 2.7 (0-4) % Baso % (Auto) 0.4 (0-2) % Lymph # (Auto) 1.4 (1.2-4.9) X10*3/uL Dolores # (Auto) 1.4 H (0.1-1.2) X10*3/uL Eos # (Auto) 0.5 H (0.0-0.4) X10*3/uL Baso # (Auto) 0.1 (0.0-0.2) X10*3/uL Abs Immat Gran (auto) 0.07 H (0.00-0.03) X10*3/uL Absolute Neuts (auto) 14.7 H (2.0-8.3) x10*3/uL Absolute Nucleated RBC 0.000 (0.0-0.012) X10*3/uL Nucleated RBC % (auto) 0.0 (0.0-0.2) /100WBC ESR 21 H (0-15) MM/HR Sodium 140 (135-145) mmol/L Potassium 3.4 (3.3-5.1) mmol/L Chloride 101 (96-108) mmol/L Carbon Dioxide 27 (22-29) mmol/L Anion Gap 15 (12-20) BUN 17 H (9-16) mg/dL Creatinine 0.91 (0.5-1.4) mg/dL Estim Creat Clear Calc 82.2 Estimated GFR > 60 Random Glucose 124 H (60-115) mg/dL Lactic Acid 2.1 H* (0.5-2.0) mmol/L Calcium 9.0 (8.4-10.2) mg/dL Magnesium 1.9 (1.6-2.6) mg/dL Total Bilirubin 0.7 (0.0-1.0) mg/dL Direct Bilirubin 0.4 (0.0-0.5) mg/dL AST 22 (5-37) U/L ALT 15 (0-40) U/L Alkaline Phosphatase 281 H (39-117) U/L C-Reactive Protein 4.08 H (< or = 0.50) mg/dL B-Natriuretic Peptide 3060 H (<100) pg/mL Total Protein 7.3 (6.5-8.0) g/dL Albumin 3.3 L (3.5-5.0) g/dL Independent Historian Clinical information obtained from an independent historian. History obtained from or confirmed by: EMS External Record Review External record reviewed: Inpatient record Prescription Management I considered prescription management with: Pain Medication Discharge Plan Discharge Clinical Impression: Diabetic ulcer of left lower leg, Leg edema, left, Recurrent cellulitis of lower extremity Chronic leg pain Qualifiers: Laterality: left Qualified Code(s): M79.605 - Pain in left leg Elevated WBC count Qualifiers: Leukocytosis type: unspecified Qualified Code(s): D72.829 - Elevated white blood cell count, unspecified Patient Disposition: Admitted As Inpatient Print Language: Danish
[2023-06-24] MEDS: Morphine Sulfate Immed Release 15 MG TABLET PO (04:44)
[2023-06-24 04:45] LABS: MANUAL DIFF FLAG NO
[2023-06-24 04:46] LABS: Basophils Absolute Auto 0.1 X10*3/uL (0.0-0.2); Basophils Percent Auto 0.4 % (0-2); Eosinophils Absolute Auto 0.5 X10*3/uL (0.0-0.4); Eosinophils Percent Auto 2.7 % (0-4); Hematocrit 38.4 % (42.0-52.0); Hemoglobin 11.8 g/dl (14.0-18.0); Imm Gran Abs Auto 0.07 X10*3/uL (0.00-0.03); Imm Gran Pct Auto 0.4 % (0.0-0.4); Lymphocytes Absolute Auto 1.4 X10*3/uL (1.2-4.9); Lymphocytes Percent Auto 7.9 % (20-40); Mean Corpuscular HGB Conc 30.7 g/dl (31.0-36.0); Mean Corpuscular Hemoglobin 26.2 pg (27.0-33.0); Mean Corpuscular Volume 85.1 fL (80.0-98.0); Mean Platelet Volume 9.3 fL (9.4-12.4); Monocytes Absolute Auto 1.4 X10*3/uL (0.1-1.2); Monocytes Percent Auto 7.7 % (2-11); Neutrophils Absolute Auto 14.7 x10*3/uL (2.0-8.3); Neutrophils Percent Auto 80.9 % (45-73); Platelet Count 354 X10*3/uL (160-400); Red Blood Count 4.51 X10*6/uL (4.60-5.80); Red Cell Distribution Width 16.9 % (11.0-16.0); White Blood Count 18.2 X10*3/uL (4.8-10.8)
--- NOTE | 2023-06-24 05:00 | PC.NURSE ---
blood work sent down to lab, nonstick dressing replaced to pt's Left lower extremity. pt tolerated well. filtering machine tender utilized
[2023-06-24 05:03] LABS: Alanine Aminotransferase 15 U/L (0-40); Albumin Level 3.3 g/dL (3.5-5.0); Alkaline Phosphatase 281 U/L (39-117); Anion Gap 15 (12-20); Aspartate Amino Transferase 22 U/L (5-37); Bilirubin Direct 0.4 mg/dL (0.0-0.5); Bilirubin Total 0.7 mg/dL (0.0-1.0); Blood Urea Nitrogen 17 mg/dL (9-16); C Reactive Protein 4.08 mg/dL (< or = 0.50); Carbon Dioxide 27 mmol/L (22-29); Chloride 101 mmol/L (96-108); Creatinine Clr Calc Pharmacy 82.2; Estimated Glomerular Filt Rate > 60; Glucose Random 124 mg/dL (60-115); Magnesium 1.9 mg/dL (1.6-2.6); Potassium 3.4 mmol/L (3.3-5.1); Sodium 140 mmol/L (135-145); Total Protein 7.3 g/dL (6.5-8.0)
[2023-06-24 05:07] LABS: B Type Natriuretic Peptide 3060 pg/mL (<100)
[2023-06-24 05:24] LABS: Erythrocyte Sedimentation Rate 21 MM/HR (0-15)
[2023-06-24] MEDS: Piperacillin Sodium/Tazobactam 3.375 GM in 0.9 % Sodium Chloride 50 ML IV (05:24)
--- NOTE | 2023-06-24 05:35 | PC.NURSE ---
BC and LA collected and sent to lab. pt medicated according to sep with pipercillin this rn attempted to medicate pt with iv40mg lasix per sep. pt bp noted to be 104/37 map 65. this rn made dr leon and dr robin beltran. per md hold med at this time. pt pending admission
[2023-06-24 05:36] LABS: Lactic Acid 2.1 mmol/L (0.5-2.0)
--- NOTE | 2023-06-24 05:42 | PM.IMHP ---
History of Present Illness Date of Service: 06/24/23 Chief Complaint: Left leg pain This is a 62-year-old male with pertinent history of peripheral vascular disease status post right AKA, congestive heart failure with reduced ejection fraction, insulin-dependent type 2 diabetes mellitus, BPH, mixed hyperlipidemia, gastroesophageal reflux disease who presents to the emergency department for evaluation of left lower extremity pain, redness foul-smelling discharge. Of note, patient was admitted twice in the last 1 month for left lower extremity cellulitis and discharged home with p.o. antibiotics. There is question of medication compliance. 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 Initially he stated that he took his antibiotic once daily but then stated that he took it 3 times a day. Unable to list his medications but states he is compliant with it. The left lower extremity has been red, edematous and draining foul-smelling purulent fluid. Also admits orthopnea and left lower extremity swelling. No fever, chills, nausea, vomiting, chest discomfort, palpitations, abdominal pain, changes in urinary or bowel habits. In the emergency department, patient's BNP and WBC found to be elevated. Review of Systems Constitutional: Constitutional: Reports no additional constitutional complaints Cardiovascular: Cardiovascular: Reports orthopnea Respiratory: Respiratory: Reports no additional respiratory complaints Gastrointestinal: Gastrointestinal: Reports no additional gastrointestinal complaints Genitourinary: Genitourinary: Reports no additional male genitourinary complaints [facility] Medical History PAD (peripheral artery disease) Right above-knee amputee History of right above knee amputation Infection of amputation site of lower extremity BKA stump complication Below-knee amputation of right lower extremity BPH (benign prostatic hyperplasia) Cardiomyopathy CAD (coronary artery disease) History of peripheral vascular disease Coronary artery disease Cardiomyopathy Essential hypertension Type 2 diabetes mellitus with unspecified complications Abscess, perineum Asthma High cholesterol HTN (hypertension) Diabetes Family History Father No problems noted. Mother Diabetes HTN (hypertension) Sister No problems noted. Sister Diabetes HTN (hypertension) Sister No problems noted. Surgical History History of surgical removal of pilonidal cyst Hx of hand surgery Hx of hand surgery History of cardiac cath S/P angiogram of extremity Hx of varicose vein stripping Social History Household Members: None Household Members Other:: SELF Housing: Apartment Housing Other:: elderly housing Are you a primary critical care unit nurse to a significant other at home: No Do you presently have visiting nurse or other home services: Yes Alcohol intake: never Comment: Refused bed and chair alarm. Patient Tobacco Use Status: Current everyday Tobacco user Tobacco use type: Cigarette Cigarette Packs Per Day: 0.5 Cigarettes Per Day: 10 Years Smoked: 15+ Second Hand Smoke Exposure: No Advance Directives: Yes Advance Directives on File: Yes Advance Directives Date on File: 12/10/20 service: No Current occupational status: disabled Meds Allergies Allergy/AdvReac Type Severity Reaction Status Date / Time No Known Allergies Allergy Verified 04/27/23 14:10 Active Medications: Current Medications Furosemide (Furosemide 100 Mg/10 Ml Vial) 60 mg IVPUSH DAILY KARI; Protocol Vancomycin HCl (Vancomycin/Ns) 2,000 mg in 500 mls @ 250 mls/hr IV ONCE ONE Stop: 06/24/23 07:01 Sodium Chloride (Ns) 500 mls @ 250 mls/hr IV .Q2H KARI Stop: 06/24/23 06:44 Pharmacy Consult (Consult Rx Vancomycin Dosing) 1 each MISCELLANE DAILY PRN PRN Reason: Consult order Home Medications Medication Instructions Recorded Confirmed Last Taken Type albuterol sulfate 2.5 mg/3 mL 2.5 mg inhalation Q4H PRN Wheezing 06/04/23 06/17/23 Unknown History (0.083 %) solution for nebulization albuterol sulfate 90 mcg/actuation 2 puff inhalation Q4H PRN wheezing 06/04/23 06/17/23 Unknown History aerosol inhaler (Ventolin HFA) atorvastatin 80 mg tablet 80 mg PO BEDTIME 06/04/23 06/04/23 Unknown History ipratropium 20 mcg-albuterol 100 1 puff inhalation QID 06/04/23 06/04/23 Unknown History mcg/actuation mist for inhalation (Combivent Respimat) pantoprazole 20 mg tablet,delayed 20 mg PO QAM 06/04/23 06/04/23 Unknown History release aspirin 81 mg tablet,delayed 81 mg PO QAM 06/17/23 06/17/23 06/16/23 History release insulin lispro 100 unit/mL 10 unit subcut BID@0800,1200 06/17/23 06/17/23 06/16/23 History subcutaneous pen insulin lispro 100 unit/mL 12 unit subcut DAILY@1800 06/17/23 06/17/23 06/16/23 History subcutaneous pen tamsulosin 0.4 mg capsule 0.4 mg PO BEDTIME 06/17/23 06/17/23 06/16/23 History Physical Exam Vital Signs and Narrative: Vital Signs: Last Vital Signs Temp 97.8 F 06/24/23 04:11 Pulse 78 06/24/23 05:27 Resp 18 06/24/23 04:11 BP 104/37 L 06/24/23 05:27 Pulse Ox 99 06/24/23 04:11 O2 Del Method Room Air 06/24/23 04:11 BMI result Body Mass Index 29.0 Middle-aged male lying in bed in no distress Neck supple, no JVD Regular rate and rhythm, S1-S2 heard Regular breath sounds bilaterally, no wheezing or crackles appreciated Abdomen soft nontender, no guarding, no rigidity Patient is awake, alert and oriented to self, place, time and person ; no focal motor deficit Extremity: Right AKA ; left lower extremity with erythema, multiple diabetic ulcers with purulent serosanguineous drainage, tenderness and swelling present Psych: Normal mood No pedal edema Results Labs 06/24/23 04:39 06/24/23 04:39 Labs: Laboratory Results - last 24 hr 06/24/23 06/24/23 04:39 05:15 MCV 85.1 MCH 26.2 L MCHC 30.7 L RDW 16.9 H Plt Count 354 MPV 9.3 L Immature Gran % (Auto) 0.4 Neut % (Auto) 80.9 H Lymph % (Auto) 7.9 L Rhea % (Auto) 7.7 Eos % (Auto) 2.7 Baso % (Auto) 0.4 Lymph # (Auto) 1.4 Rhea # (Auto) 1.4 H Eos # (Auto) 0.5 H Baso # (Auto) 0.1 Abs Immat Gran (auto) 0.07 H Absolute Neuts (auto) 14.7 H Absolute Nucleated RBC 0.000 Nucleated RBC % (auto) 0.0 ESR 21 H Anion Gap 15 Estim Creat Clear Calc 82.2 Estimated GFR > 60 Random Glucose 124 H Lactic Acid 2.1 H* Calcium 9.0 Magnesium 1.9 Total Bilirubin 0.7 Direct Bilirubin 0.4 AST 22 ALT 15 Alkaline Phosphatase 281 H C-Reactive Protein 4.08 H B-Natriuretic Peptide 3060 H Total Protein 7.3 Albumin 3.3 L Assessment and Plan (1) Recurrent cellulitis of lower extremity: Status: Acute Plan This is a 62-year-old male with pertinent history of peripheral vascular disease status post right AKA, congestive heart failure with reduced ejection fraction, insulin-dependent type 2 diabetes mellitus, BPH, mixed hyperlipidemia, gastroesophageal reflux disease who presents to the emergency department for evaluation of left lower extremity pain, redness foul-smelling discharge. #. Sepsis due to recurrent left lower leg cellulitis with infected diabetic ulcers: ?due to medication noncompliance. Will admit patient and initiate empiric IV antibiotics. Blood culture and lactic acid obtained. Resuscitated with IV crystalloids. Patient also has peripheral vascular disease, will consult vascular surgery. Also consulting Infectious Disease #. Acute decompensation of congestive heart failure with reduced ejection fraction: Initiating IV diuretics. Strict I's and O's. Patient on beta-opal and EVENS-inhibitor. #. Peripheral vascular disease: On high-intensity statin and antiplatelet agent #. Insulin-dependent diabetes mellitus: Reduced home basal insulin. Initiating Accu-Cheks with sliding scale insulin #. BPH: On Flomax #. Mild persistent asthma: No exacerbation during admission. Continue home inhalers Med rec pending DVT prophylaxis: Lovenox Full code Admit as inpatient and will require two night minimum hospital stay for IV antibiotics in a patient with recurrent cellulitis, diabetic ulcers and PVD (as above), which is not possible in a lesser acute setting. Quality Stroke Does the patient have a stroke diagnosis?: No VTE Prior VTE?: No VTE Risk Level:: Medical - moderate - high VTE Device Contraindication: Treatment Not Indicated VTE Drug Contraindication: N/A - Med Ordered
[2023-06-24] MEDS: vancomycin/NS 2,000 MG/500 ML PLAST..BAG 250 MG IV (06:01)
[2023-06-24] MEDS: Morphine Sulfate 2 MG/ML CARTRIDGE IVPUSH ×3 (06:04→18:25)
[2023-06-24] MEDS: 0.9 % Sodium Chloride 250 ML IV (06:47)
--- NOTE | 2023-06-24 06:59 | PHA.PROG ---
Admission Date/Time: June 24, 2023 05:40 Indication: Skin Weight in k.647 kg Adjusted body weight in Kg: Kamrar body weight in Kg: Obesity Dosing Indication % IBW: Serum Creatinine - Last 168 Hours 06/24/23 04:39 Creatinine 0.91 Estimated CrCl and GFR - Last 168 Hours 06/24/23 04:39 Estim Creat Clear Calc 82.2 Estimated GFR > 60 Vancomycin Loading Dose: 2000mg Current Vancomycin Dosing Regimen: 750mg Q12H Vancomycin Monitoring using AUC goal of 400 - 600 range with trough as surrogate marker: 404 mg/L Date and Time for next Vancomycin Level to be drawn: 06/25/23 @1600 Pharmacist Comments on Vancomycin Plan: Predicted trough of 13 mg/L; will continue to monitor Vancomycin dosing will take advantage of [employer] as a clinical decision support tool that uses Bayesian modeling to calculate individual patient's pharmacokinetic parameters and forecast the patient's drug concentration time course with the target goal AUC 24 range of 400 - 600 mg/L/hr.
[2023-06-24 07:15] LABS: Glucose, Whole Blood 118 mg/dL (60-115)
[2023-06-24 07:19] LABS: Reflex Lactate? Lactic Acid Added
--- NOTE | 2023-06-24 07:28 | PC.NURSE ---
Patient eating breakfast, denies current complaints. Call dominguez within reach.
[2023-06-24] MEDS: 0.9 % Sodium Chloride Flush 3 ML SYRINGE IVFLUSH ×3 (08:03→20:24)
[2023-06-24] MEDS: Enoxaparin Sodium 40 MG/0.4 ML SYRINGE SUBCUT (09:20)
[2023-06-24] MEDS: Furosemide 100 MG/10 ML VIAL 60 MG IVPUSH (09:21)
--- NOTE | 2023-06-24 09:26 | PC.NURSE ---
assumed care of patient. pt is resting/dozing waiting for a room. lasix and lovenox given per MAR, BP stable 123/59, lung sounds clear. Reporting 6/10 pain in left leg. NSR on tele. Wound on left leg is wrapped with gauze. Surrounding area is warm to touch.
--- NOTE | 2023-06-24 09:58 | PHA.MEDREC ---
Pharmacy Consult ? Medication Reconciliation Pharmacy has completed the medication reconciliation. Utilized manager baby services. Spoke to patient to confirm meds, however patient does not know medications. Per patient, they know they take a med for cholesterol, heartburn, blood pressure, blood sugars, water pill, and prostate. Patient states they take lantus 42 units at bedtime. Per patient, they no longer take aspirin because they took him off it . However, called patient's pharmacy afterward and they confirmed ASA 81 mg daily in med box for 06/10/23. Per pharmacy their medbox still has carvedilol 25mg BID and lisinopril 40mg daily. Recent dicharge notes that these dosages were stopped and the patient was put on lisinopril 10mg daily and carvedilol 6.25 mg BID. Reflected prior discharge dosages (lisinopril 10mg and carvedilol 6.25mg BID) in med rec. Pt's pharmacy also mentioned metformin 1000mg BID in medbox for 06/10/23. Added to med rec among other confirmed meds. Patient also mentioned that they do not take Humalog during dinner, and only 10 units during breakfast and lunch, with 42 units of lantus at night. Confirmed meds are a culmination of [facility] pharmacy and [facility] confirmed meds, along with doses from prior discharge for Coreg and Prinvil.
--- NOTE | 2023-06-24 10:45 | PC.NURSE ---
phlebotomy came for lab draw. phlebotomy reported to this RN that patient is refusing lab draws
[2023-06-24 11:49] LABS: Glucose, Whole Blood 144 mg/dL (60-115)
[2023-06-24] MEDS: Piperacillin Sodium/Tazobactam 4.5 GM in 0.9 % Sodium Chloride 100 ML IV ×3 (12:20→23:44)
--- NOTE | 2023-06-24 13:13 | PM.EVENT ---
Event Note Date of Service: 06/24/23 Event Note: Pt seen and examined, labs med reviewed and med rec done, discussed with vascular surgery. A/P per H and P from this morning and waiting additional input from ID Time Spent With Patient Time: Total time managing care of this patient today ____ minutes.
[2023-06-24 14:53] LABS: ~Lactic Acid-LAB USE ONLY 1.8 mmol/L (0.5-2.0)
--- NOTE | 2023-06-24 15:32 | PM.CNGS ---
History of Present Illness Consult details Consult date: 06/24/23 Reason for consult: wound care Narrative: Very complex and noncompliance 62-year-old gentleman presents for hospital evaluation regarding nonhealing left lower extremity ulcers. He actually was discharged and developed significant swelling. His biggest complaint is the serous drainage from his legs. He has been started on antibiotics. He now presents for left leg evaluation. Review of Systems Review of Systems: Yes all other systems are reviewed and are negative Constitutional: Constitutional: Reports no additional constitutional complaints ENT: Reports Normal hearing present Cardiovascular: Cardiovascular: Denies chest pain, Denies chest pain at rest, Denies chest pain with activity and Denies pedal edema Respiratory: Respiratory: Denies cough Gastrointestinal: Gastrointestinal: Denies abdominal pain Musculoskeletal: Musculoskeletal: Denies abnormal gait, Denies muscle cramps and Denies radiating pain into limb Integumentary/Breasts: Skin/Breast: Denies skin ulcer and Denies wounds Neurologic: Reports Normal hearing present and Denies abnormal gait Psychiatric: Psychiatric: Reports no additional psychiatric complaints PMFSH Past Medical History Medical History PAD (peripheral artery disease) Right above-knee amputee History of right above knee amputation Infection of amputation site of lower extremity BKA stump complication Below-knee amputation of right lower extremity BPH (benign prostatic hyperplasia) Cardiomyopathy CAD (coronary artery disease) History of peripheral vascular disease Coronary artery disease Cardiomyopathy Essential hypertension Type 2 diabetes mellitus with unspecified complications Abscess, perineum Asthma High cholesterol HTN (hypertension) Diabetes Family History Family History Father No problems noted. Mother Diabetes HTN (hypertension) Sister No problems noted. Sister Diabetes HTN (hypertension) Sister No problems noted. Surgical History Surgical History History of surgical removal of pilonidal cyst Hx of hand surgery Hx of hand surgery History of cardiac cath S/P angiogram of extremity Hx of varicose vein stripping Social History Social History Household Members: None Household Members Other:: SELF Housing: Apartment Housing Other:: elderly housing Are you a primary home care scheduler to a significant other at home: No Do you presently have visiting nurse or other home services: Yes Alcohol intake: never Comment: Refused bed and chair alarm. Patient Tobacco Use Status: Current everyday Tobacco user Tobacco use type: Cigarette Cigarette Packs Per Day: 0.5 Cigarettes Per Day: 10 Years Smoked: 15+ Second Hand Smoke Exposure: No Advance Directives: Yes Advance Directives on File: Yes Advance Directives Date on File: 12/10/20 service: No Current occupational status: disabled Meds Allergies Allergy/AdvReac Type Severity Reaction Status Date / Time No Known Allergies Allergy Verified 04/27/23 14:10 Active Medications: Current Medications Acetaminophen (Acetaminophen 325 Mg Tablet) 650 mg PO Q6H PRN PRN Reason: Pain, Mild (Pain Scale 1-3) Albuterol Sulfate (Albuterol Sulfate (0.083%) 2.5 Mg/3 Ml Vial.Neb) 2.5 mg INHALE Q4H PRN PRN Reason: Wheezing Albuterol Sulfate (Albuterol Sulfate 90 Mcg 8 Gm Inhaler) 2 puff INHALE Q4H PRN PRN Reason: wheezing Aspirin (Aspirin Enteric Coated 81 Mg Tablet.Dr) 81 mg PO DAILY KARI Atorvastatin Calcium (Atorvastatin Calcium 80 Mg Tablet) 80 mg PO BEDTIME KARI Carvedilol (Carvedilol 6.25 Mg Tablet) 6.25 mg PO BID KARI; Protocol Dextrose (Dextrose 50 % 25 Gm/50 Ml Syringe) 25 gm IVPUSH Q15M PRN; Protocol PRN Reason: per Hypoglycemia Standing Ord. Enoxaparin Sodium (Enoxaparin Sodium 40 Mg/0.4 Ml Syringe) 40 mg SUBCUT Q24H [facility] Last Admin: 06/24/23 09:20 Dose: 40 mg Furosemide (Furosemide 100 Mg/10 Ml Vial) 60 mg IVPUSH DAILY KARI; Protocol Last Admin: 06/24/23 09:21 Dose: 60 mg Glucose (Glucose Gel 15 Gm Gel..Gram.) 15 gm PO Q15M PRN; Protocol PRN Reason: per Hypoglycemia Standing Ord. Piperacillin Sod/Tazobactam (Sod 4.5 gm/ Sodium Chloride) 100 mls @ 200 mls/hr IV Q6H [facility] Last Infusion: 06/24/23 13:43 Dose: Infused Vancomycin HCl 750 mg/ Sodium (Chloride) 265 mls @ 265 mls/hr IV Q12H [facility] Insulin Glargine (Insulin Glargine,Hum.Rec.Anlog 100 Unit/Ml 10 Ml Vial) 42 unit SUBCUT BEDTIME [facility] Insulin Human Lispro (Insulin Lispro 100 Unit/Ml 3 Ml Vial) 0 unit SUBCUT QIDACHS [facility]; Protocol Last Admin: 06/24/23 11:44 Dose: Not Given Lisinopril (Lisinopril 10 Mg Tablet) 10 mg PO DAILY [facility]; Protocol Melatonin (Melatonin 3 Mg Tablet) 6 mg PO BEDTIME PRN PRN Reason: Insomnia Metformin HCl (Metformin Hcl 1,000 Mg Tablet) 1,000 mg PO BIDWM [facility] Morphine Sulfate (Morphine Sulfate 2 Mg/Ml Cartridge) 2 mg IVPUSH Q4H PRN; Protocol PRN Reason: Pain, Severe (Pain Scale 7-10) Last Admin: 06/24/23 11:39 Dose: 2 mg Omeprazole (Omeprazole 20 Mg Capsule.Dr) 20 mg PO DAILY@0630 [facility] Ondansetron HCl (Ondansetron Hcl 4 Mg/2 Ml Vial) 4 mg IVPUSH Q8H PRN PRN Reason: Nausea and Vomiting Pharmacy Consult (Consult Rx Vancomycin Dosing) 1 each MISCELLANE DAILY PRN PRN Reason: Consult order Sodium Chloride (0.9 % Sodium Chloride Flush 3 Ml Syringe) 3 ml IVFLUSH QSHIFT [facility] Last Admin: 06/24/23 08:03 Dose: 3 ml Tamsulosin HCl (Tamsulosin Hcl 0.4 Mg Capsule) 0.4 mg PO BEDTIME [facility] Home Medications Medication Instructions Recorded Confirmed Last Taken Type albuterol sulfate 2.5 mg/3 mL 2.5 mg inhalation Q4H PRN Wheezing 06/04/23 06/24/23 Unknown History (0.083 %) solution for nebulization albuterol sulfate 90 mcg/actuation 2 puff inhalation Q4H PRN wheezing 06/04/23 06/24/23 Unknown History aerosol inhaler (Ventolin HFA) atorvastatin 80 mg tablet 80 mg PO BEDTIME 06/04/23 06/24/23 Unknown History pantoprazole 20 mg tablet,delayed 20 mg PO DAILY@0630 06/04/23 06/24/23 Unknown History release aspirin 81 mg tablet,delayed 81 mg PO DAILY 06/17/23 06/24/23 06/16/23 History release insulin lispro 100 unit/mL 10 unit subcut BID@0800,1200 06/17/23 06/24/23 06/16/23 History subcutaneous pen tamsulosin 0.4 mg capsule 0.4 mg PO BEDTIME 06/17/23 06/24/23 06/16/23 History insulin glargine 100 unit/mL (3 42 unit subcut BEDTIME 06/24/23 06/24/23 Unknown History mL) subcutaneous pen (Lantus Solostar U-100 Insulin) metformin 1,000 mg tablet 1,000 mg PO BIDWM 06/24/23 06/24/23 Unknown History Physical Exam Vital Signs: Vital Signs: Last Vital Signs Temp 99.0 F 06/24/23 06:14 Pulse 80 06/24/23 12:20 Resp 16 06/24/23 12:20 BP 131/62 06/24/23 12:20 Pulse Ox 96 06/24/23 12:20 O2 Del Method Room Air 06/24/23 12:20 BMI result Body Mass Index 29.0 Const: General: cooperative, healthy appearing and comfortable Orientation/consciousness: oriented to person, oriented to place and oriented to time HEENT: Head: Yes normal to inspection Neck: Neck: Yes normal visual inspection Carotids: no bruits Chest: Chest palpation & inspection: normal inspection of the chest Resp: Effort & Inspection: normal respiratory effort and able to speak in complete sentences Auscultation: clear to auscultation bilaterally, no crackles, no rales, no rhonchi and no wheezes Cardio: Rate: regular rate Rhythm: regular rhythm Heart sounds: S1 normal heart sound present and S2 normal heart sound present Bruits: no carotid bruits Peripheral pulses: Peripheral pulses 2+ throughout GI: Inspection: Yes normal to inspection Skin: Other: Left leg +2 edema Wounds: no wounds Hair: normal Neuro: General: oriented to person, oriented to place and oriented to time Cranial nerves: Yes CN's II-XII intact bilaterally and Yes Normal hearing present Cognition (Neuro): normal cognition Motor exam (neuro): 5/5 motor strength present throughout Extrem: Other: venous exam: No significant superficial varicosities or spider telangiectasias, minimal edema General: No clubbing, No cyanosis and No edema Psych: Appearance: grossly normal Mental Status: mental status grossly normal Speech and movement: Normal speech and movement present Results Labs 06/24/23 04:39 06/24/23 04:39 Labs: Abnormal lab results 06/24/23 06/24/23 06/24/23 Range/Units 04:39 05:15 07:12 WBC 18.2 H (4.8-10.8) X10*3/uL RBC 4.51 L (4.60-5.80) X10*6/uL Hgb 11.8 L (14.0-18.0) g/dl Hct 38.4 L (42.0-52.0) % MCH 26.2 L (27.0-33.0) pg MCHC 30.7 L (31.0-36.0) g/dl RDW 16.9 H (11.0-16.0) % MPV 9.3 L (9.4-12.4) fL Neut % (Auto) 80.9 H (45-73) % Lymph % (Auto) 7.9 L (20-40) % [place] # (Auto) 1.4 H (0.1-1.2) X10*3/uL Eos # (Auto) 0.5 H (0.0-0.4) X10*3/uL Abs Immat Gran (auto) 0.07 H (0.00-0.03) X10*3/uL Absolute Neuts (auto) 14.7 H (2.0-8.3) x10*3/uL ESR 21 H (0-15) MM/HR BUN 17 H (9-16) mg/dL POC Glucose 118 H (60-115) mg/dL Random Glucose 124 H (60-115) mg/dL Lactic Acid 2.1 H* (0.5-2.0) mmol/L Alkaline Phosphatase 281 H (39-117) U/L C-Reactive Protein 4.08 H (< or = 0.50) mg/dL B-Natriuretic Peptide 3060 H (<100) pg/mL Albumin 3.3 L (3.5-5.0) g/dL 06/24/23 Range/Units 11:42 WBC (4.8-10.8) X10*3/uL RBC (4.60-5.80) X10*6/uL Hgb (14.0-18.0) g/dl Hct (42.0-52.0) % MCH (27.0-33.0) pg MCHC (31.0-36.0) g/dl RDW (11.0-16.0) % MPV (9.4-12.4) fL Neut % (Auto) (45-73) % Lymph % (Auto) (20-40) % [place] # (Auto) (0.1-1.2) X10*3/uL Eos # (Auto) (0.0-0.4) X10*3/uL Abs Immat Gran (auto) (0.00-0.03) X10*3/uL Absolute Neuts (auto) (2.0-8.3) x10*3/uL ESR (0-15) MM/HR BUN (9-16) mg/dL POC Glucose 144 H (60-115) mg/dL Random Glucose (60-115) mg/dL Lactic Acid (0.5-2.0) mmol/L Alkaline Phosphatase (39-117) U/L C-Reactive Protein (< or = 0.50) mg/dL B-Natriuretic Peptide (<100) pg/mL Albumin (3.5-5.0) g/dL Short CBC 06/24/23 Range/Units 04:39 WBC 18.2 H (4.8-10.8) X10*3/uL Hgb 11.8 L (14.0-18.0) g/dl Hct 38.4 L (42.0-52.0) % Plt Count 354 (160-400) X10*3/uL BMP 06/24/23 04:39 Sodium 140 Potassium 3.4 Chloride 101 Carbon Dioxide 27 BUN 17 H Creatinine 0.91 Calcium 9.0 Liver Function 06/24/23 Range/Units 04:39 Total Bilirubin 0.7 (0.0-1.0) mg/dL Direct Bilirubin 0.4 (0.0-0.5) mg/dL AST 22 (5-37) U/L ALT 15 (0-40) U/L Alkaline Phosphatase 281 H (39-117) U/L Albumin 3.3 L (3.5-5.0) g/dL All other labs normal. Assessment and Plan (1) Recurrent cellulitis of lower extremity: Status: Acute In short patient has significant edema of the left lower extremity. Unfortunately he is extremely noncompliant. I do think simple care with routine wound dressings and Canelo wraps would help him tremendously. I did Willis wrap his leg at the current time we did discuss risk factor modification including leg elevation with tamale maker at bedside. We will continue to monitor his status while he is in the hospital thank you for allowing us to assist in his care. (2) PAD (peripheral artery disease): Status: Acute Procedures Date of Service Date of Service: 06/24/23
[2023-06-24] MEDS: metFORMIN HCl 1,000 MG TABLET 1000 MG PO (18:20)
[2023-06-24 18:22] LABS: Glucose, Whole Blood 227 mg/dL (60-115)
[2023-06-24] MEDS: Insulin Lispro 100 UNIT/ML 3 ML VIAL SUBCUT ×2 (18:24→20:17)
--- NOTE | 2023-06-24 18:32 | PC.NURSE ---
wounds on left leg dressing changed - non adherant with dakotah wrap. medicated for 8 pain with PRN morphine. abx infusing per mar
[2023-06-24] MEDS: Albuterol Sulfate (0.083%) 2.5 MG/3 ML VIAL.NEB INHALE (19:57)
[2023-06-24 19:59] LABS: Glucose, Whole Blood 266 mg/dL (60-115)
[2023-06-24] MEDS: Morphine Sulfate 2 MG/ML CARTRIDGE 4 MG IVPUSH (20:16)
[2023-06-24] MEDS: Melatonin 3 MG TABLET 6 MG PO (20:16)
[2023-06-24] MEDS: Tamsulosin HCL 0.4 MG CAPSULE PO (20:16)
[2023-06-24] MEDS: Insulin Glargine,Hum.rec.anlog 100 UNIT/ML 10 ML VIAL 42 UNIT SUBCUT (20:17)
[2023-06-24] MEDS: Atorvastatin Calcium 80 MG TABLET PO (20:17)
[2023-06-24] MEDS: carvediloL 6.25 MG TABLET PO (20:17)
[2023-06-24] MEDS: Acetaminophen 325 MG TABLET 650 MG PO (20:17)
[2023-06-24] MEDS: vancomycin HCL 750 MG in 0.9 % Sodium Chloride 250 ML 265 MG IV (20:23)
[2023-06-24] MEDS: Magnesium Hydrox/Alum Hydrox 30 ML ORAL.SUSP PO (22:28)
[2023-06-25] MEDS: Morphine Sulfate 2 MG/ML CARTRIDGE 4 MG IVPUSH ×4 (00:17→19:31)
[2023-06-25] MEDS: Piperacillin Sodium/Tazobactam 4.5 GM in 0.9 % Sodium Chloride 100 ML IV ×4 (05:35→23:56)
[2023-06-25] MEDS: Omeprazole 20 MG CAPSULE.DR PO (05:36)
[2023-06-25 06:52] VITALS: BP 114/58; PULSE 69; RESP 17; TEMP 35.5; O2SAT 98
[2023-06-25 07:03] LABS: MANUAL DIFF FLAG NO
[2023-06-25 07:16] LABS: Basophils Absolute Auto 0.1 X10*3/uL (0.0-0.2); Basophils Percent Auto 0.8 % (0-2); Eosinophils Absolute Auto 0.5 X10*3/uL (0.0-0.4); Eosinophils Percent Auto 3.2 % (0-4); Hematocrit 35.4 % (42.0-52.0); Hemoglobin 10.7 g/dl (14.0-18.0); Imm Gran Abs Auto 0.07 X10*3/uL (0.00-0.03); Imm Gran Pct Auto 0.5 % (0.0-0.4); Lymphocytes Absolute Auto 1.9 X10*3/uL (1.2-4.9); Lymphocytes Percent Auto 13.2 % (20-40); Mean Corpuscular HGB Conc 30.2 g/dl (31.0-36.0); Mean Corpuscular Volume 86.1 fL (80.0-98.0); Mean Platelet Volume 10.1 fL (9.4-12.4); Monocytes Absolute Auto 1.4 X10*3/uL (0.1-1.2); Monocytes Percent Auto 9.8 % (2-11); Neutrophils Absolute Auto 10.4 x10*3/uL (2.0-8.3); Neutrophils Percent Auto 72.5 % (45-73); Platelet Count 336 X10*3/uL (160-400); Red Blood Count 4.11 X10*6/uL (4.60-5.80); Red Cell Distribution Width 17.2 % (11.0-16.0); White Blood Count 14.4 X10*3/uL (4.8-10.8)
[2023-06-25 07:23] LABS: Glucose, Whole Blood 58 mg/dL (60-115)
[2023-06-25 07:28] LABS: Anion Gap 14 (12-20); Blood Urea Nitrogen 19 mg/dL (9-16); Calcium 8.4 mg/dL (8.4-10.2); Carbon Dioxide 24 mmol/L (22-29); Chloride 102 mmol/L (96-108); Creatinine Clr Calc Pharmacy 91.3; Estimated Glomerular Filt Rate > 60; Potassium 3.8 mmol/L (3.3-5.1); Sodium 136 mmol/L (135-145)
[2023-06-25 07:32] LABS: Glucose Random 53 mg/dL (60-115)
[2023-06-25 07:35] LABS: Glucose, Whole Blood 73 mg/dL (60-115)
--- NOTE | 2023-06-25 09:10 | HO.PM.IMPN ---
Subjective Subjective Date of Service: 06/26/23 Interval History: f/u on cellulitis of the with sepsis overall redness is better, no fever, no sob Physical Exam Vital Signs: Vital Signs: Last Vital Signs Temp 96 F L 06/25/23 06:52 Pulse 69 06/25/23 06:52 Resp 17 06/25/23 06:52 BP 114/58 L 06/25/23 06:52 Pulse Ox 98 06/25/23 06:52 O2 Del Method Room Air 06/25/23 06:52 BMI result Body Mass Index 29.0 Const: Other: General: AO X 3, no acute distress Resp: CTA bilateral CVS: S1,S2,RRR GI: +BS, NT, no distention Skin: right bka, swelling and redness of most of the left leg Neuro: motor grossly intact Psych: appropriate affect Objective Data Active Medications Acetaminophen (Acetaminophen 325 Mg Tablet) 650 mg PO Q6H PRN PRN Reason: Pain, Mild (Pain Scale 1-3) Last Admin: 06/24/23 20:17 Dose: 650 mg Documented By: GIBRAN Al Hydroxide/Mg Hydroxide (Magnesium Hydrox/Alum Hydrox 30 Ml Oral.Susp) 30 ml PO Q6H PRN PRN Reason: Heartburn Last Admin: 06/24/23 22:28 Dose: 30 ml Documented By: GIBRAN Albuterol Sulfate (Albuterol Sulfate (0.083%) 2.5 Mg/3 Ml Vial.Neb) 2.5 mg INHALE Q4H PRN PRN Reason: Wheezing Last Admin: 06/24/23 19:57 Dose: 2.5 mg Documented By: KARI Albuterol Sulfate (Albuterol Sulfate 90 Mcg 8 Gm Inhaler) 2 puff INHALE Q4H PRN PRN Reason: wheezing Aspirin (Aspirin Enteric Coated 81 Mg Tablet.) 81 mg PO DAILY KARI Atorvastatin Calcium (Atorvastatin Calcium 80 Mg Tablet) 80 mg PO BEDTIME [facility] Last Admin: 06/24/23 20:17 Dose: 80 mg Documented By: GIBRAN Carvedilol (Carvedilol 6.25 Mg Tablet) 6.25 mg PO BID [facility]; Protocol Last Admin: 06/24/23 20:17 Dose: 6.25 mg Documented By: GIBRAN Dextrose (Dextrose 50 % 25 Gm/50 Ml Syringe) 25 gm IVPUSH Q15M PRN; Protocol PRN Reason: per Hypoglycemia Standing Ord. Enoxaparin Sodium (Enoxaparin Sodium 40 Mg/0.4 Ml Syringe) 40 mg SUBCUT Q24H [facility] Last Admin: 06/24/23 09:20 Dose: 40 mg Documented By: ROYAL Furosemide (Furosemide 100 Mg/10 Ml Vial) 60 mg IVPUSH DAILY KARI; Protocol Last Admin: 06/24/23 09:21 Dose: 60 mg Documented By: ROYAL Glucose (Glucose Gel 15 Gm Gel..Gram.) 15 gm PO Q15M PRN; Protocol PRN Reason: per Hypoglycemia Standing Ord. Piperacillin Sod/Tazobactam (Sod 4.5 gm/ Sodium Chloride) 100 mls @ 200 mls/hr IV Q6H [facility] Last Infusion: 06/25/23 06:10 Dose: Infused Documented By: GIBRAN Vancomycin HCl 1,000 mg/ (Sodium Chloride) 270 mls @ 270 mls/hr IV Q12H [facility] Insulin Glargine (Insulin Glargine,Hum.Rec.Anlog 100 Unit/Ml 10 Ml Vial) 42 unit SUBCUT BEDTIME [facility] Last Admin: 06/24/23 20:17 Dose: 42 unit Documented By: GIBRAN Insulin Human Lispro (Insulin Lispro 100 Unit/Ml 3 Ml Vial) 0 unit SUBCUT QIDACHS [facility]; Protocol Last Admin: 06/25/23 07:37 Dose: Not Given Documented By: CLAIRE Non-Admin Reason: No Insulin Coverage Lisinopril (Lisinopril 10 Mg Tablet) 10 mg PO DAILY [facility]; Protocol Melatonin (Melatonin 3 Mg Tablet) 6 mg PO BEDTIME PRN PRN Reason: Insomnia Last Admin: 06/24/23 20:16 Dose: 6 mg Documented By: GIBRAN Metformin HCl (Metformin Hcl 1,000 Mg Tablet) 1,000 mg PO BIDWM [facility] Last Admin: 06/24/23 18:20 Dose: 1,000 mg Documented By: ROYAL Morphine Sulfate (Morphine Sulfate 2 Mg/Ml Cartridge) 4 mg IVPUSH Q4H PRN; Protocol PRN Reason: Pain, Severe (Pain Scale 7-10) Last Admin: 06/25/23 00:17 Dose: 4 mg Documented By: GIBRAN Omeprazole (Omeprazole 20 Mg Capsule.) 20 mg PO DAILY@0630 [facility] Last Admin: 06/25/23 05:36 Dose: 20 mg Documented By: GIBRAN Ondansetron HCl (Ondansetron Hcl 4 Mg/2 Ml Vial) 4 mg IVPUSH Q8H PRN PRN Reason: Nausea and Vomiting Pharmacy Consult (Consult Rx Vancomycin Dosing) 1 each MISCELLANE DAILY PRN PRN Reason: Consult order Sodium Chloride (0.9 % Sodium Chloride Flush 3 Ml Syringe) 3 ml IVFLUSH QSHIFT [facility] Last Admin: 06/24/23 20:24 Dose: 3 ml Documented By: GIBRAN Tamsulosin HCl (Tamsulosin Hcl 0.4 Mg Capsule) 0.4 mg PO BEDTIME [facility] Last Admin: 06/24/23 20:16 Dose: 0.4 mg Documented By: GIBRAN Labs 06/25/23 06:36 06/26/23 05:33 Labs: Laboratory Results - last 24 hr 06/24/23 06/24/23 06/24/23 11:42 14:39 18:15 MCV MCH MCHC RDW Plt Count MPV Immature Gran % (Auto) Neut % (Auto) Lymph % (Auto) [place] % (Auto) Eos % (Auto) Baso % (Auto) Lymph # (Auto) [place] # (Auto) Eos # (Auto) Baso # (Auto) Abs Immat Gran (auto) Absolute Neuts (auto) Absolute Nucleated RBC Nucleated RBC % (auto) Anion Gap Estim Creat Clear Calc Estimated GFR POC Glucose 144 H 227 H Random Glucose Lactic Acid F/U @ 2Hr 1.8 Calcium 06/24/23 06/25/23 06/25/23 19:42 06:36 07:15 MCV 86.1 MCH 26.0 L MCHC 30.2 L RDW 17.2 H Plt Count 336 MPV 10.1 Immature Gran % (Auto) 0.5 H Neut % (Auto) 72.5 Lymph % (Auto) 13.2 L [place] % (Auto) 9.8 Eos % (Auto) 3.2 Baso % (Auto) 0.8 Lymph # (Auto) 1.9 [place] # (Auto) 1.4 H Eos # (Auto) 0.5 H Baso # (Auto) 0.1 Abs Immat Gran (auto) 0.07 H Absolute Neuts (auto) 10.4 H Absolute Nucleated RBC 0.000 Nucleated RBC % (auto) 0.0 Anion Gap 14 Estim Creat Clear Calc 91.3 Estimated GFR > 60 POC Glucose 266 H 58 L* Random Glucose 53 L* Lactic Acid F/U @ 2Hr Calcium 8.4 D 06/25/23 07:32 MCV MCH MCHC RDW Plt Count MPV Immature Gran % (Auto) Neut % (Auto) Lymph % (Auto) [place] % (Auto) Eos % (Auto) Baso % (Auto) Lymph # (Auto) [place] # (Auto) Eos # (Auto) Baso # (Auto) Abs Immat Gran (auto) Absolute Neuts (auto) Absolute Nucleated RBC Nucleated RBC % (auto) Anion Gap Estim Creat Clear Calc Estimated GFR POC Glucose 73 Random Glucose Lactic Acid F/U @ 2Hr Calcium Microbiology Microbiology Results: Microbiology 06/24/23 05:21 Blood Culture - Preliminary Blood - Venous No growth after 24 hours. 06/24/23 05:16 Blood Culture - Preliminary Blood - Venous No growth after 24 hours. Assessment and Plan (1) Recurrent cellulitis of lower extremity: Status: Acute (2) Leg edema, left: Status: Acute Plan This is a 62-year-old male with pertinent history of peripheral vascular disease status post right AKA, congestive heart failure with reduced ejection fraction, insulin-dependent type 2 diabetes mellitus, BPH, mixed hyperlipidemia, gastroesophageal reflux disease who presents to the emergency department for evaluation of left lower extremity pain, redness foul-smelling discharge. Sepsis due to recurrent left lower leg cellulitis with infected diabetic ulcers: ?due to medication noncompliance. -Continue Zosyn +Vanco -dressing changes as recommended by surgery -ID consult pending Acute decompensation of congestive heart failure with reduced ejection fraction, clinically improved with IV diuretics, assymptomatic -IV diuretic this morning and change to PO tomorrow Peripheral vascular disease: On high-intensity statin and antiplatelet agent Insulin-dependent diabetes mellitus:, hypoglycemia this morning, continue Sliding scale, metformin, reduce Lantus to 25 BPH: On Flomax Mild persistent asthma: No exacerbation during admission. Continue home inhalers DVT prophylaxis: Lovenox Full code Need for inpt: Cellulitis of the leg, coverying more than 50 % of the limb Quality Stroke Does the patient have a stroke diagnosis?: No VTE Prior VTE?: No VTE Risk Level:: Medical - moderate - high VTE Device Contraindication: Treatment Not Indicated VTE Drug Contraindication: N/A - Med Ordered
[2023-06-25] MEDS: Enoxaparin Sodium 40 MG/0.4 ML SYRINGE SUBCUT (09:27)
[2023-06-25] MEDS: Furosemide 100 MG/10 ML VIAL 60 MG IVPUSH (09:27)
[2023-06-25] MEDS: metFORMIN HCl 1,000 MG TABLET 1000 MG PO (09:28)
[2023-06-25] MEDS: lisinopriL 10 MG TABLET PO (09:28)
[2023-06-25] MEDS: Aspirin Enteric Coated 81 MG TABLET.DR PO (09:28)
[2023-06-25] MEDS: carvediloL 6.25 MG TABLET PO ×2 (09:28→20:22)
[2023-06-25] MEDS: 0.9 % Sodium Chloride Flush 3 ML SYRINGE IVFLUSH ×3 (09:29→19:35)
[2023-06-25] MEDS: vancomycin HCL 1,000 MG in 0.9 % Sodium Chloride 250 ML 270 MG IV (09:29)
--- NOTE | 2023-06-25 09:41 | MHC.CM.PN ---
CM MET WITH PATIENT, [employer] SAL[employer] ASSISTING. PATIENT FROM HOME ALONE, DAILY [employer]. RIGHT AKA AND LLE CELLULITIS, USES ELECTRIC W/C AND SELF TRANSFERS. [employer] W/ ADL'S. ALSO HAS A MANUAL W/C AND HOSPITAL BED IN THE HOME. READMIT - WAS RECENTLY DC'D WITH A [facility]. STATES HE DOESN'T THINK HE HAS RECEIVED SERVICES. RETURN REFERRAL SENT. PCP: ERICA MANZANO MD HCP: HENRY TORRES DP: GOAL IS HOME W/ [facility] AND [employer]. WILL NEED BLS. CM WILL CONTINUE TO FOLLOW.
[2023-06-25 09:53] LABS: Glucose, Whole Blood 135 mg/dL (60-115)
--- NOTE | 2023-06-25 10:24 | HO.VASCPN ---
Subjective Subjective Date of Service: 06/25/23 Patient reports: no new complaints and feels better Interval history: Very complex 62-year-old gentleman presents for follow-up regarding swelling and edema the left lower extremity. Appears to be doing relatively okay since admission. Reports edema and discomfort have decreased significantly. He only has mild pain. He now presents for routine follow-up. Physical Exam Vital Signs: Vital Signs: Last Vital Signs Temp 96 F L 06/25/23 06:52 Pulse 69 06/25/23 06:52 Resp 17 06/25/23 06:52 BP 114/58 L 06/25/23 06:52 Pulse Ox 98 06/25/23 06:52 O2 Del Method Room Air 06/25/23 06:52 BMI result Body Mass Index 29.0 Const: General: cooperative, healthy appearing and comfortable Orientation/consciousness: oriented to person, oriented to place and oriented to time HEENT: Head: Yes normal to inspection Neck: Neck: Yes normal visual inspection Carotids: no bruits Chest: Chest palpation & inspection: normal inspection of the chest Resp: Effort & Inspection: normal respiratory effort and able to speak in complete sentences Auscultation: clear to auscultation bilaterally, no crackles, no rales, no rhonchi and no wheezes Cardio: Rate: regular rate Rhythm: regular rhythm Heart sounds: S1 normal heart sound present and S2 normal heart sound present Bruits: no carotid bruits Peripheral pulses: Peripheral pulses 2+ throughout GI: Inspection: Yes normal to inspection Skin: Other: Plus one edema pretibial surface ulcers very mild Wounds: no wounds Hair: normal Neuro: General: oriented to person, oriented to place and oriented to time Cranial nerves: Yes CN's II-XII intact bilaterally and Yes Normal hearing present Cognition (Neuro): normal cognition Motor exam (neuro): 5/5 motor strength present throughout Extrem: Other: venous exam: No significant superficial varicosities or spider telangiectasias, minimal edema General: No clubbing, No cyanosis and No edema Psych: Appearance: grossly normal Mental Status: mental status grossly normal Speech and movement: Normal speech and movement present Progress Note: A&P Assessment and plan (1) Recurrent cellulitis of lower extremity: Status: Acute Assessment and Plan: In short patient has significant swelling of the left lower extremity along with superficial ulcers. We did discuss offloading and compliance once again. He unfortunately is very noncompliant and once he is out of the hospital does not dressed the wounds well or elevate the leg at all. He develops recurrent edema. At the current time would recommend a Telfa dressings along with an Canelo wrap to be changed daily. If he is discharged over the weekend he can see me as an outpatient. Thank you for allowing us to assist in his care. If there are questions or concerns please do not hesitate to contact us. Time Spent With Patient Time: Total time managing care of this patient today ____ minutes. Procedures Date of Service Date of Service: 06/25/23 Quality Stroke Does the patient have a stroke diagnosis?: No VTE Prior VTE?: No VTE Risk Level:: Medical - moderate - high VTE Device Contraindication: Treatment Not Indicated VTE Drug Contraindication: N/A - Med Ordered
[2023-06-25 11:15] LABS: Glucose, Whole Blood 106 mg/dL (60-115)
[2023-06-25 15:03] VITALS: BP 119/58; PULSE 76; RESP 18; TEMP 36.6; O2SAT 97
[2023-06-25] MEDS: Albuterol Sulfate (0.083%) 2.5 MG/3 ML VIAL.NEB INHALE ×2 (15:46→23:25)
[2023-06-25 15:47] VITALS: PULSE 73; RESP 16; O2SAT 99
--- NOTE | 2023-06-25 16:05 | W.PM.IDCN ---
History of Present Illness Data of Consult Service Date: 06/24/23 Requesting physician: Juan Antonio Royal Primary Care Provider: Tanvir Melendez MD HPI Reason for consult: left leg erythema He presents for third time this month for LLE erythema and pain. 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 He has been on po Doxycycline at home. I also saw him 06/07 and 06/17 and he was last discharged on 06/19. He has no fever or bacteremia seen. Review of Systems Review of Systems: Yes unobtainable due to endotracheal tube PMFSH Past Medical History Medical History PAD (peripheral artery disease) Right above-knee amputee History of right above knee amputation Infection of amputation site of lower extremity BKA stump complication Below-knee amputation of right lower extremity BPH (benign prostatic hyperplasia) Cardiomyopathy CAD (coronary artery disease) History of peripheral vascular disease Coronary artery disease Cardiomyopathy Essential hypertension Type 2 diabetes mellitus with unspecified complications Abscess, perineum Asthma High cholesterol HTN (hypertension) Diabetes Family History Family History Father No problems noted. Mother Diabetes HTN (hypertension) Sister No problems noted. Sister Diabetes HTN (hypertension) Sister No problems noted. 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 Patient Tobacco Use Status: Current everyday Tobacco user Tobacco use type: Cigarette Cigarette Packs Per Day: 0.5 Cigarettes Per Day: 2 Years Smoked: 15+ Second Hand Smoke Exposure: No Advance Directives Date on File: 12/10/20 service: No Current occupational status: disabled [employer] Allergies Allergy/AdvReac Type Severity Reaction Status Date / Time No Known Allergies Allergy Verified 04/27/23 14:10 Active Medications: Current Medications Acetaminophen (Acetaminophen 325 Mg Tablet) 650 mg PO Q6H PRN PRN Reason: Pain, Mild (Pain Scale 1-3) Last Admin: 06/24/23 20:17 Dose: 650 mg Al Hydroxide/Mg Hydroxide (Magnesium Hydrox/Alum Hydrox 30 Ml Oral.Susp) 30 ml PO Q6H PRN PRN Reason: Heartburn Last Admin: 06/24/23 22:28 Dose: 30 ml Albuterol Sulfate (Albuterol Sulfate (0.083%) 2.5 Mg/3 Ml Vial.Neb) 2.5 mg INHALE Q4H PRN PRN Reason: Wheezing Last Admin: 06/25/23 15:46 Dose: 2.5 mg Albuterol Sulfate (Albuterol Sulfate 90 Mcg 8 Gm Inhaler) 2 puff INHALE Q4H PRN PRN Reason: wheezing Aspirin (Aspirin Enteric Coated 81 Mg Tablet.) 81 mg PO DAILY [facility] Last Admin: 06/25/23 09:28 Dose: 81 mg Atorvastatin Calcium (Atorvastatin Calcium 80 Mg Tablet) 80 mg PO BEDTIME [facility] Last Admin: 06/24/23 20:17 Dose: 80 mg Carvedilol (Carvedilol 6.25 Mg Tablet) 6.25 mg PO BID [facility]; Protocol Last Admin: 06/25/23 09:28 Dose: 6.25 mg Dextrose (Dextrose 50 % 25 Gm/50 Ml Syringe) 25 gm IVPUSH Q15M PRN; Protocol PRN Reason: per Hypoglycemia Standing Ord. Enoxaparin Sodium (Enoxaparin Sodium 40 Mg/0.4 Ml Syringe) 40 mg SUBCUT Q24H [facility] Last Admin: 06/25/23 09:27 Dose: 40 mg Furosemide (Furosemide 20 Mg Tablet) 60 mg PO DAILY [facility]; Protocol Glucose (Glucose Gel 15 Gm Gel..Gram.) 15 gm PO Q15M PRN; Protocol PRN Reason: per Hypoglycemia Standing Ord. Piperacillin Sod/Tazobactam (Sod 4.5 gm/ Sodium Chloride) 100 mls @ 200 mls/hr IV Q6H [facility] Last Infusion: 06/25/23 12:52 Dose: Infused Vancomycin HCl 1,000 mg/ (Sodium Chloride) 270 mls @ 270 mls/hr IV Q12H [facility] Last Infusion: 06/25/23 10:40 Dose: Infused Insulin Glargine (Insulin Glargine,Hum.Rec.Anlog 100 Unit/Ml 10 Ml Vial) 25 unit SUBCUT BEDTIME [facility] Insulin Human Lispro (Insulin Lispro 100 Unit/Ml 3 Ml Vial) 0 unit SUBCUT QIDACHS [facility]; Protocol Last Admin: 06/25/23 11:34 Dose: Not Given Lisinopril (Lisinopril 10 Mg Tablet) 10 mg PO DAILY [facility]; Protocol Last Admin: 06/25/23 09:28 Dose: 10 mg Melatonin (Melatonin 3 Mg Tablet) 6 mg PO BEDTIME PRN PRN Reason: Insomnia Last Admin: 06/24/23 20:16 Dose: 6 mg Metformin HCl (Metformin Hcl 1,000 Mg Tablet) 1,000 mg PO BIDWM [facility] Last Admin: 06/25/23 09:28 Dose: 1,000 mg Morphine Sulfate (Morphine Sulfate 2 Mg/Ml Cartridge) 4 mg IVPUSH Q4H PRN; Protocol PRN Reason: Pain, Severe (Pain Scale 7-10) Last Admin: 06/25/23 15:33 Dose: 4 mg Omeprazole (Omeprazole 20 Mg Capsule.Dr) 20 mg PO DAILY@0630 [facility] Last Admin: 06/25/23 05:36 Dose: 20 mg Ondansetron HCl (Ondansetron Hcl 4 Mg/2 Ml Vial) 4 mg IVPUSH Q8H PRN PRN Reason: Nausea and Vomiting Pharmacy Consult (Consult Rx Vancomycin Dosing) 1 each MISCELLANE DAILY PRN PRN Reason: Consult order Sodium Chloride (0.9 % Sodium Chloride Flush 3 Ml Syringe) 3 ml IVFLUSH QSHIFT [facility] Last Admin: 06/25/23 09:29 Dose: 3 ml Tamsulosin HCl (Tamsulosin Hcl 0.4 Mg Capsule) 0.4 mg PO BEDTIME [facility] Last Admin: 06/24/23 20:16 Dose: 0.4 mg Home Medications Medication Instructions Recorded Confirmed Last Taken Type albuterol sulfate 2.5 mg/3 mL 2.5 mg inhalation Q4H PRN Wheezing 06/04/23 06/24/23 Unknown History (0.083 %) solution for nebulization albuterol sulfate 90 mcg/actuation 2 puff inhalation Q4H PRN wheezing 06/04/23 06/24/23 Unknown History aerosol inhaler (Ventolin HFA) atorvastatin 80 mg tablet 80 mg PO BEDTIME 06/04/23 06/24/23 Unknown History pantoprazole 20 mg tablet,delayed 20 mg PO DAILY@0630 06/04/23 06/24/23 Unknown History release aspirin 81 mg tablet,delayed 81 mg PO DAILY 06/17/23 06/24/23 06/16/23 History release insulin lispro 100 unit/mL 10 unit subcut BID@0800,1200 06/17/23 06/24/23 06/16/23 History subcutaneous pen tamsulosin 0.4 mg capsule 0.4 mg PO BEDTIME 06/17/23 06/24/23 06/16/23 History insulin glargine 100 unit/mL (3 42 unit subcut BEDTIME 06/24/23 06/24/23 Unknown History mL) subcutaneous pen (Lantus Solostar U-100 Insulin) metformin 1,000 mg tablet 1,000 mg PO BIDWM 06/24/23 06/24/23 Unknown History Physical Exam Vital Signs: Vital Signs: Last Vital Signs Temp 97.8 F 06/25/23 15:03 Pulse 73 06/25/23 15:47 Resp 16 06/25/23 15:47 BP 119/58 L 06/25/23 15:03 Pulse Ox 97 06/25/23 15:03 O2 Del Method Room Air 06/25/23 15:03 BMI result Body Mass Index 29.0 Const: General: cooperative HEENT: Head: Yes normal to inspection Face and sinus: Yes normal facial exam Mouth: Normal oral and palatal mucosa present Teeth and gingiva: dentition normal Eyes: General: appearance normal, both eyes and all related structures Pupils: Equal, round and reactive pupils present Resp: Effort & Inspection: normal respiratory effort Cardio: Rate: regular rate Rhythm: regular rhythm GI: Palpation (GI): Soft to palpation and nontender : General: Yes no CVA tenderness Back/Spine/Pelvis: Back: no CVA tenderness Skin: General skin exam: no rashes or lesions noted Neuro: General: moves all extremities Cranial nerves: Yes Equal, round and reactive pupils present Extrem: Other: right AKA and left leg looks about same,leaky serous blister wrapped mild erythema Psych: Appearance: grossly normal Results Labs 06/25/23 06:36 06/25/23 06:36 Labs: Short CBC 06/25/23 Range/Units 06:36 WBC 14.4 H (4.8-10.8) X10*3/uL Hgb 10.7 L (14.0-18.0) g/dl Hct 35.4 L (42.0-52.0) % Plt Count 336 (160-400) X10*3/uL BMP 06/25/23 06:36 Sodium 136 Potassium 3.8 Chloride 102 Carbon Dioxide 24 BUN 19 H Creatinine 0.82 Calcium 8.4 D Microbiology Microbiology Results: Microbiology 06/24/23 05:21 Blood - Venous Blood Culture - Preliminary No growth after 24 hours. 06/24/23 05:16 Blood - Venous Blood Culture - Preliminary No growth after 24 hours. Assessment and Plan (1) Recurrent cellulitis of lower extremity: Status: Acute He has redness LLE and has had concerns over last month. He has no signs of sepsis,likely blister due to venous stasis and lymphatic problems burst and area open underneath. Plan Would continue Vancomycin and piperacillin/tazobactam 2-3 days and then continue po Doxycycline See Dr Dia or Wound Clinic in followup.
[2023-06-25 16:14] LABS: Glucose, Whole Blood 65 mg/dL (60-115)
[2023-06-25 16:42] LABS: Glucose, Whole Blood 83 mg/dL (60-115)
--- NOTE | 2023-06-25 19:14 | HE.PHANOTE ---
RE: VANCO DOSING Base on trough value as 16 when it was predicted to be 12.9, dose was decreased to 750 mg q12h, starting @199906/25/23. Random was scheduled for 06/26/23 @1800.
[2023-06-25 20:03] LABS: Glucose, Whole Blood 127 mg/dL (60-115)
[2023-06-25] MEDS: Tamsulosin HCL 0.4 MG CAPSULE PO (20:21)
[2023-06-25] MEDS: Atorvastatin Calcium 80 MG TABLET PO (20:21)
[2023-06-25] MEDS: vancomycin HCL 750 MG in 0.9 % Sodium Chloride 250 ML 265 MG IV (20:22)
[2023-06-25 23:24] VITALS: PULSE 80; RESP 16; O2SAT 99
[2023-06-26] VITALS: BP 124/58; PULSE 86; RESP 18; TEMP 36.3; O2SAT 99
[2023-06-26] MEDS: Morphine Sulfate 2 MG/ML CARTRIDGE 4 MG IVPUSH ×5 (00:52→21:16)
[2023-06-26] MEDS: Piperacillin Sodium/Tazobactam 4.5 GM in 0.9 % Sodium Chloride 100 ML IV ×4 (06:05→23:35)
[2023-06-26] MEDS: Omeprazole 20 MG CAPSULE.DR PO (06:05)
[2023-06-26 06:27] LABS: Estimated Glomerular Filt Rate > 60
[2023-06-26 07:54] LABS: Glucose, Whole Blood 102 mg/dL (60-115)
[2023-06-26 08:00] VITALS: BP 114/55; PULSE 75; RESP 18; TEMP 36.1; O2SAT 97
[2023-06-26] MEDS: Furosemide 20 MG TABLET 60 MG PO (09:26)
[2023-06-26] MEDS: Enoxaparin Sodium 40 MG/0.4 ML SYRINGE SUBCUT (09:26)
[2023-06-26] MEDS: metFORMIN HCl 1,000 MG TABLET 1000 MG PO ×2 (09:27→16:56)
[2023-06-26] MEDS: carvediloL 6.25 MG TABLET PO ×2 (09:27→20:09)
[2023-06-26] MEDS: lisinopriL 10 MG TABLET PO (09:27)
[2023-06-26] MEDS: 0.9 % Sodium Chloride Flush 3 ML SYRINGE IVFLUSH ×3 (09:27→20:10)
[2023-06-26] MEDS: Aspirin Enteric Coated 81 MG TABLET.DR PO (09:27)
[2023-06-26] MEDS: vancomycin HCL 750 MG in 0.9 % Sodium Chloride 250 ML 265 MG IV ×2 (09:32→20:10)
--- NOTE | 2023-06-26 11:00 | P.PNIM_ITS ---
Subjective Subjective Date of Service: 06/26/23 Interval History: f/u on cellulitis of the with sepsis redness is better, has some pain in the leg Physical Exam 2 Vital Signs: Vital Signs: Last Vital Signs Temp 96.9 F 06/26/23 08:00 Pulse 75 06/26/23 08:00 Resp 18 06/26/23 08:00 BP 114/55 L 06/26/23 08:00 Pulse Ox 97 06/26/23 08:00 O2 Del Method Room Air 06/26/23 08:00 BMI result Body Mass Index 29.0 Const: Other: General: AO X 3, no acute distress Resp: CTA bilateral CVS: S1,S2,RRR GI: +BS, NT, no distention Skin: right bka, swelling and redness of most of the left leg--redness mostly fading Neuro: motor grossly intact Psych: appropriate affect Objective Data Active Medications Acetaminophen (Acetaminophen 325 Mg Tablet) 650 mg PO Q6H PRN PRN Reason: Pain, Mild (Pain Scale 1-3) Last Admin: 06/24/23 20:17 Dose: 650 mg Documented By: GIBRAN Al Hydroxide/Mg Hydroxide (Magnesium Hydrox/Alum Hydrox 30 Ml Oral.Susp) 30 ml PO Q6H PRN PRN Reason: Heartburn Last Admin: 06/24/23 22:28 Dose: 30 ml Documented By: GIBRAN Albuterol Sulfate (Albuterol Sulfate (0.083%) 2.5 Mg/3 Ml Vial.Neb) 2.5 mg INHALE Q4H PRN PRN Reason: Wheezing Last Admin: 06/25/23 23:25 Dose: 2.5 mg Documented By: JUANJTAANDREA Albuterol Sulfate (Albuterol Sulfate 90 Mcg 8 Gm Inhaler) 2 puff INHALE Q4H PRN PRN Reason: wheezing Aspirin (Aspirin Enteric Coated 81 Mg Tablet.) 81 mg PO DAILY [facility] Last Admin: 06/26/23 09:27 Dose: 81 mg Documented By: COLT Atorvastatin Calcium (Atorvastatin Calcium 80 Mg Tablet) 80 mg PO BEDTIME [facility] Last Admin: 06/25/23 20:21 Dose: 80 mg Documented By: THIERRY Carvedilol (Carvedilol 6.25 Mg Tablet) 6.25 mg PO BID [facility]; Protocol Last Admin: 06/26/23 09:27 Dose: 6.25 mg Documented By: COLT Dextrose (Dextrose 50 % 25 Gm/50 Ml Syringe) 25 gm IVPUSH Q15M PRN; Protocol PRN Reason: per Hypoglycemia Standing Ord. Enoxaparin Sodium (Enoxaparin Sodium 40 Mg/0.4 Ml Syringe) 40 mg SUBCUT Q24H [facility] Last Admin: 06/26/23 09:26 Dose: 40 mg Documented By: COLT Furosemide (Furosemide 20 Mg Tablet) 60 mg PO DAILY [facility]; Protocol Last Admin: 06/26/23 09:26 Dose: 60 mg Documented By: COLT Glucose (Glucose Gel 15 Gm Gel..Gram.) 15 gm PO Q15M PRN; Protocol PRN Reason: per Hypoglycemia Standing Ord. Piperacillin Sod/Tazobactam (Sod 4.5 gm/ Sodium Chloride) 100 mls @ 200 mls/hr IV Q6H [facility] Last Infusion: 06/26/23 06:56 Dose: Infused Documented By: COLT Vancomycin HCl 750 mg/ Sodium (Chloride) 265 mls @ 265 mls/hr IV Q12H [facility] Last Infusion: 06/26/23 10:36 Dose: Infused Documented By: COLT Insulin Glargine (Insulin Glargine,Hum.Rec.Anlog 100 Unit/Ml 10 Ml Vial) 25 unit SUBCUT BEDTIME [facility] Last Admin: 06/25/23 20:28 Dose: Not Given Documented By: TOMASARISGriselda Non-Admin Reason: low blood sugars Insulin Human Lispro (Insulin Lispro 100 Unit/Ml 3 Ml Vial) 0 unit SUBCUT QIDACHS [facility]; Protocol Last Admin: 06/26/23 09:22 Dose: Not Given Documented By: COLT Non-Admin Reason: No Insulin Coverage Lisinopril (Lisinopril 10 Mg Tablet) 10 mg PO DAILY [facility]; Protocol Last Admin: 06/26/23 09:27 Dose: 10 mg Documented By: COLT Melatonin (Melatonin 3 Mg Tablet) 6 mg PO BEDTIME PRN PRN Reason: Insomnia Last Admin: 06/24/23 20:16 Dose: 6 mg Documented By: GIBRAN Metformin HCl (Metformin Hcl 1,000 Mg Tablet) 1,000 mg PO BIDWM [facility] Last Admin: 06/26/23 09:27 Dose: 1,000 mg Documented By: COLT Morphine Sulfate (Morphine Sulfate 2 Mg/Ml Cartridge) 4 mg IVPUSH Q4H PRN; Protocol PRN Reason: Pain, Severe (Pain Scale 7-10) Last Admin: 06/26/23 06:10 Dose: 4 mg Documented By: THIERRY Omeprazole (Omeprazole 20 Mg Capsule.Dr) 20 mg PO DAILY@0630 [facility] Last Admin: 06/26/23 06:05 Dose: 20 mg Documented By: THIERRY Ondansetron HCl (Ondansetron Hcl 4 Mg/2 Ml Vial) 4 mg IVPUSH Q8H PRN PRN Reason: Nausea and Vomiting Pharmacy Consult (Consult Rx Vancomycin Dosing) 1 each MISCELLANE DAILY PRN PRN Reason: Consult order Sodium Chloride (0.9 % Sodium Chloride Flush 3 Ml Syringe) 3 ml IVFLUSH QSHIFT [facility] Last Admin: 06/26/23 09:27 Dose: 3 ml Documented By: COLT Tamsulosin HCl (Tamsulosin Hcl 0.4 Mg Capsule) 0.4 mg PO BEDTIME [facility] Last Admin: 06/25/23 20:21 Dose: 0.4 mg Documented By: THIERRY Labs 06/25/23 06:36 06/26/23 05:33 Labs: Laboratory Results - last 24 hr 06/25/23 06/25/23 06/25/23 11:08 16:05 16:38 Estim Creat Clear Calc Estimated GFR POC Glucose 106 65 83 Vancomycin Trough 06/25/23 06/25/23 06/26/23 18:16 19:45 05:33 Estim Creat Clear Calc 86.0 Estimated GFR > 60 POC Glucose 127 H Vancomycin Trough 16.0 06/26/23 07:23 Estim Creat Clear Calc Estimated GFR POC Glucose 102 Vancomycin Trough Microbiology Microbiology Results: Microbiology 06/24/23 05:21 Blood Culture - Preliminary Blood - Venous No growth after 48 hours. 06/24/23 05:16 Blood Culture - Preliminary Blood - Venous No growth after 48 hours. Assessment and Plan (1) Recurrent cellulitis of lower extremity: Status: Acute (2) Leg edema, left: Status: Acute Plan This is a 62-year-old male with pertinent history of peripheral vascular disease status post right AKA, congestive heart failure with reduced ejection fraction, insulin-dependent type 2 diabetes mellitus, BPH, mixed hyperlipidemia, gastroesophageal reflux disease who presents to the emergency department for evaluation of left lower extremity pain, redness foul-smelling discharge. Sepsis due to recurrent left lower leg cellulitis with infected diabetic ulcers: ?due to medication noncompliance. Improving -Continue Zosyn +Vanco for 2 more days then oral Abx per ID rec -dressing as recommended by surgery Acute decompensation of congestive heart failure with reduced ejection fraction, clinically improved with IV diuretics, assymptomatic - Continue oral Lasix Peripheral vascular disease: On high-intensity statin and antiplatelet agent Insulin-dependent diabetes mellitus: FBS of 102, continue present regimen BPH: On Flomax Mild persistent asthma: No exacerbation during admission. Continue home inhalers DVT prophylaxis: Lovenox Full code Need for inpt: Cellulitis of the leg, coverying more than 50 % of the limb and needing IV Abx Quality Stroke Does the patient have a stroke diagnosis?: No VTE Prior VTE?: No VTE Risk Level:: Medical - moderate - high VTE Device Contraindication: Treatment Not Indicated VTE Drug Contraindication: N/A - Med Ordered
[2023-06-26 12:09] LABS: Glucose, Whole Blood 149 mg/dL (60-115)
[2023-06-26 15:33] LABS: Glucose, Whole Blood 148 mg/dL (60-115)
[2023-06-26 15:40] VITALS: BP 113/57; PULSE 75; RESP 18; TEMP 37.2; O2SAT 98
[2023-06-26 16:31] LABS: Glucose, Whole Blood 152 mg/dL (60-115)
[2023-06-26] MEDS: Insulin Lispro 100 UNIT/ML 3 ML VIAL SUBCUT ×2 (16:56→20:22)
[2023-06-26 18:40] LABS: Vancomycin Random 15.6 mcg/mL (15-20)
[2023-06-26 20:09] LABS: Glucose, Whole Blood 174 mg/dL (60-115)
[2023-06-26] MEDS: Tamsulosin HCL 0.4 MG CAPSULE PO (20:09)
[2023-06-26] MEDS: Atorvastatin Calcium 80 MG TABLET PO (20:09)
[2023-06-26] MEDS: Insulin Glargine,Hum.rec.anlog 100 UNIT/ML 10 ML VIAL 25 UNIT SUBCUT (20:23)
[2023-06-26 23:59] VITALS: BP 133/69; PULSE 86; RESP 18; TEMP 36.1; O2SAT 99
[2023-06-27] MEDS: Morphine Sulfate 2 MG/ML CARTRIDGE 4 MG IVPUSH ×5 (05:09→23:29)
[2023-06-27] MEDS: Omeprazole 20 MG CAPSULE.DR PO (05:36)
[2023-06-27] MEDS: Piperacillin Sodium/Tazobactam 4.5 GM in 0.9 % Sodium Chloride 100 ML IV ×4 (05:52→23:29)
[2023-06-27 06:44] LABS: Creatinine Clr Calc Pharmacy 89.1; Estimated Glomerular Filt Rate > 60
[2023-06-27 07:25] VITALS: BP 132/63; PULSE 77; RESP 18; TEMP 36.2; O2SAT 99
[2023-06-27 07:26] LABS: Anion Gap 17 (12-20); Blood Urea Nitrogen 16 mg/dL (9-16); Calcium 8.3 mg/dL (8.4-10.2); Carbon Dioxide 19 mmol/L (22-29); Chloride 104 mmol/L (96-108); Glucose Random 94 mg/dL (60-115); Potassium 3.8 mmol/L (3.3-5.1); Sodium 136 mmol/L (135-145)
[2023-06-27 07:44] LABS: Glucose, Whole Blood 93 mg/dL (60-115)
[2023-06-27 08:24] LABS: Hematocrit 35.2 % (42.0-52.0); Hemoglobin 10.9 g/dl (14.0-18.0); Mean Corpuscular Hemoglobin 26.6 pg (27.0-33.0); Mean Corpuscular Volume 85.9 fL (80.0-98.0); Platelet Count 295 X10*3/uL (160-400); Red Cell Distribution Width 17.2 % (11.0-16.0); White Blood Count 10.8 X10*3/uL (4.8-10.8)
[2023-06-27] MEDS: vancomycin HCL 750 MG in 0.9 % Sodium Chloride 250 ML 265 MG IV (08:28)
[2023-06-27] MEDS: Furosemide 20 MG TABLET 60 MG PO (08:28)
[2023-06-27] MEDS: Aspirin Enteric Coated 81 MG TABLET.DR PO (08:28)
[2023-06-27] MEDS: Enoxaparin Sodium 40 MG/0.4 ML SYRINGE SUBCUT (08:28)
[2023-06-27] MEDS: metFORMIN HCl 1,000 MG TABLET 1000 MG PO ×2 (08:29→17:31)
[2023-06-27] MEDS: carvediloL 6.25 MG TABLET PO ×2 (08:29→20:02)
[2023-06-27] MEDS: lisinopriL 10 MG TABLET PO (08:29)
[2023-06-27] MEDS: 0.9 % Sodium Chloride Flush 3 ML SYRINGE IVFLUSH ×3 (08:31→20:02)
--- NOTE | 2023-06-27 09:56 | HO.PM.IMPN ---
Subjective Subjective Date of Service: 06/27/23 Interval History: f/u on cellulitis of the with sepsis redness is better, has some pain in the leg Physical Exam Vital Signs: Vital Signs: Last Vital Signs Temp 97.1 F 06/27/23 07:25 Pulse 77 06/27/23 07:25 Resp 18 06/27/23 07:25 BP 132/63 06/27/23 07:25 Pulse Ox 99 06/27/23 07:25 O2 Del Method Room Air 06/27/23 07:25 BMI result Body Mass Index 29.0 Const: Other: General: AO X 3, no acute distress Resp: CTA bilateral CVS: S1,S2,RRR GI: +BS, NT, no distention Skin: right bka, swelling and redness of most of the left leg--redness mostly fading Neuro: motor grossly intact Psych: appropriate affect Objective Data Active Medications Acetaminophen (Acetaminophen 325 Mg Tablet) 650 mg PO Q6H PRN PRN Reason: Pain, Mild (Pain Scale 1-3) Last Admin: 06/24/23 20:17 Dose: 650 mg Documented By: GIBRAN Al Hydroxide/Mg Hydroxide (Magnesium Hydrox/Alum Hydrox 30 Ml Oral.Susp) 30 ml PO Q6H PRN PRN Reason: Heartburn Last Admin: 06/24/23 22:28 Dose: 30 ml Documented By: GIBRAN Albuterol Sulfate (Albuterol Sulfate (0.083%) 2.5 Mg/3 Ml Vial.Neb) 2.5 mg INHALE Q4H PRN PRN Reason: Wheezing Last Admin: 06/25/23 23:25 Dose: 2.5 mg Documented By: KARI Albuterol Sulfate (Albuterol Sulfate 90 Mcg 8 Gm Inhaler) 2 puff INHALE Q4H PRN PRN Reason: wheezing Aspirin (Aspirin Enteric Coated 81 Mg Tablet.) 81 mg PO DAILY [facility] Last Admin: 06/27/23 08:28 Dose: 81 mg Documented By: PAMELA Atorvastatin Calcium (Atorvastatin Calcium 80 Mg Tablet) 80 mg PO BEDTIME [facility] Last Admin: 06/26/23 20:09 Dose: 80 mg Documented By: THIERRY Carvedilol (Carvedilol 6.25 Mg Tablet) 6.25 mg PO BID [facility]; Protocol Last Admin: 06/27/23 08:29 Dose: 6.25 mg Documented By: PAMELA Dextrose (Dextrose 50 % 25 Gm/50 Ml Syringe) 25 gm IVPUSH Q15M PRN; Protocol PRN Reason: per Hypoglycemia Standing Ord. Enoxaparin Sodium (Enoxaparin Sodium 40 Mg/0.4 Ml Syringe) 40 mg SUBCUT Q24H [facility] Last Admin: 06/27/23 08:28 Dose: 40 mg Documented By: PAMELA Furosemide (Furosemide 20 Mg Tablet) 60 mg PO DAILY [facility]; Protocol Last Admin: 06/27/23 08:28 Dose: 60 mg Documented By: PAMELA Glucose (Glucose Gel 15 Gm Gel..Gram.) 15 gm PO Q15M PRN; Protocol PRN Reason: per Hypoglycemia Standing Ord. Piperacillin Sod/Tazobactam (Sod 4.5 gm/ Sodium Chloride) 100 mls @ 200 mls/hr IV Q6H [facility] Last Infusion: 06/27/23 06:26 Dose: Infused Documented By: THIERRY Vancomycin HCl 750 mg/ Sodium (Chloride) 265 mls @ 265 mls/hr IV Q12H [facility] Last Infusion: 06/27/23 09:45 Dose: Infused Documented By: PAMELA Insulin Glargine (Insulin Glargine,Hum.Rec.Anlog 100 Unit/Ml 10 Ml Vial) 25 unit SUBCUT BEDTIME [facility] Last Admin: 06/26/23 20:23 Dose: 25 unit Documented By: THIERRY Insulin Human Lispro (Insulin Lispro 100 Unit/Ml 3 Ml Vial) 0 unit SUBCUT QIDACHS [facility]; Protocol Last Admin: 06/27/23 07:59 Dose: Not Given Documented By: PAMELA Non-Admin Reason: No Insulin Coverage Lisinopril (Lisinopril 10 Mg Tablet) 10 mg PO DAILY [facility]; Protocol Last Admin: 06/27/23 08:29 Dose: 10 mg Documented By: PAMELA Melatonin (Melatonin 3 Mg Tablet) 6 mg PO BEDTIME PRN PRN Reason: Insomnia Last Admin: 06/24/23 20:16 Dose: 6 mg Documented By: GIBRAN Metformin HCl (Metformin Hcl 1,000 Mg Tablet) 1,000 mg PO BIDWM [facility] Last Admin: 06/27/23 08:29 Dose: 1,000 mg Documented By: PAMELA Morphine Sulfate (Morphine Sulfate 2 Mg/Ml Cartridge) 4 mg IVPUSH Q4H PRN; Protocol PRN Reason: Pain, Severe (Pain Scale 7-10) Last Admin: 06/27/23 09:31 Dose: 4 mg Documented By: MANUEL Omeprazole (Omeprazole 20 Mg Capsule.Dr) 20 mg PO DAILY@0630 [facility] Last Admin: 06/27/23 05:36 Dose: 20 mg Documented By: THIERRY Ondansetron HCl (Ondansetron Hcl 4 Mg/2 Ml Vial) 4 mg IVPUSH Q8H PRN PRN Reason: Nausea and Vomiting Pharmacy Consult (Consult Rx Vancomycin Dosing) 1 each MISCELLANE DAILY PRN PRN Reason: Consult order Sodium Chloride (0.9 % Sodium Chloride Flush 3 Ml Syringe) 3 ml IVFLUSH QSHIFT [facility] Last Admin: 06/27/23 08:31 Dose: 3 ml Documented By: PAMELA Tamsulosin HCl (Tamsulosin Hcl 0.4 Mg Capsule) 0.4 mg PO BEDTIME [facility] Last Admin: 06/26/23 20:09 Dose: 0.4 mg Documented By: THIERRY Labs 06/27/23 08:08 06/27/23 05:46 Labs: Laboratory Results - last 24 hr 06/26/23 06/26/23 06/26/23 11:48 15:25 16:14 MCV MCH MCHC RDW Plt Count MPV Absolute Nucleated RBC Nucleated RBC % (auto) Anion Gap Estim Creat Clear Calc Estimated GFR POC Glucose 149 H 148 H 152 H Random Glucose Calcium Random Vancomycin 06/26/23 06/26/23 06/27/23 18:07 20:02 05:46 MCV MCH MCHC RDW Plt Count MPV Absolute Nucleated RBC Nucleated RBC % (auto) Anion Gap 17 Estim Creat Clear Calc 89.1 Estimated GFR > 60 POC Glucose 174 H Random Glucose 94 Calcium 8.3 L Random Vancomycin 15.6 06/27/23 06/27/23 07:33 08:08 MCV 85.9 MCH 26.6 L MCHC 31.0 RDW 17.2 H Plt Count 295 MPV 10.0 Absolute Nucleated RBC 0.000 Nucleated RBC % (auto) 0.0 Anion Gap Estim Creat Clear Calc Estimated GFR POC Glucose 93 Random Glucose Calcium Random Vancomycin Microbiology Microbiology Results: Microbiology 06/24/23 05:21 Blood Culture - Preliminary Blood - Venous No growth after 48 hours. 06/24/23 05:16 Blood Culture - Preliminary Blood - Venous No growth after 48 hours. Assessment and Plan (1) Recurrent cellulitis of lower extremity: Status: Acute Plan This is a 62-year-old male with pertinent history of peripheral vascular disease status post right AKA, congestive heart failure with reduced ejection fraction, insulin-dependent type 2 diabetes mellitus, BPH, mixed hyperlipidemia, gastroesophageal reflux disease who presents to the emergency department for evaluation of left lower extremity pain, redness foul-smelling discharge. Sepsis due to recurrent left lower leg cellulitis with infected diabetic ulcers: ?due to medication noncompliance. Improving -Continue Zosyn +Vanco for 1 more days then oral Abx per ID rec -dressing as recommended by surgery (Dr. Dia) Acute decompensation of congestive heart failure with reduced ejection fraction--initially treated with IV Lasix and is back on oral Lasix. Peripheral vascular disease: On high-intensity statin and ASA Insulin-dependent diabetes mellitus: FBS of 93, continue present regimen BPH: On Flomax Mild persistent asthma: No exacerbation during admission. Continue home inhalers DVT prophylaxis: Lovenox Full code Need for inpt: Cellulitis of the leg, coverying more than 50 % of the limb and needing IV Abx Quality Stroke Does the patient have a stroke diagnosis?: No VTE Prior VTE?: No VTE Risk Level:: Medical - moderate - high VTE Device Contraindication: Treatment Not Indicated VTE Drug Contraindication: N/A - Med Ordered
[2023-06-27 11:34] LABS: Glucose, Whole Blood 98 mg/dL (60-115)
[2023-06-27 15:45] VITALS: BP 124/60; PULSE 77; RESP 17; TEMP 36.2; O2SAT 99
[2023-06-27 16:27] LABS: Glucose, Whole Blood 110 mg/dL (60-115)
[2023-06-27 18:37] LABS: Vancomycin Trough 15.3 mcg/mL (10.0-20.0)
--- NOTE | 2023-06-27 18:44 | HE.PHANOTE ---
RE: vanco Trough on 06/27 came back at 15.3; changed dose to 1250mg Q24H with predicted AUC of 477 mg/L, trough of 16.3. Next level to be drawn 06/29 @1800
[2023-06-27] MEDS: Atorvastatin Calcium 80 MG TABLET PO (20:02)
[2023-06-27] MEDS: vancomycin HCL 1,250 MG in 0.9 % Sodium Chloride 250 ML 166.67 MG IV (20:02)
[2023-06-27] MEDS: Tamsulosin HCL 0.4 MG CAPSULE PO (20:02)
[2023-06-27 20:08] VITALS: BP 129/66; PULSE 85; RESP 16; TEMP 36.6; O2SAT 98
[2023-06-27 20:18] LABS: Glucose, Whole Blood 120 mg/dL (60-115)
[2023-06-28] VITALS: BP 131/60; PULSE 76; RESP 14; TEMP 36.1; O2SAT 98
[2023-06-28] MEDS: Morphine Sulfate 2 MG/ML CARTRIDGE 4 MG IVPUSH ×5 (03:35→21:34)
[2023-06-28 04:10] VITALS: BP 133/60; PULSE 75; RESP 14; TEMP 36.4; O2SAT 99
[2023-06-28] MEDS: Omeprazole 20 MG CAPSULE.DR PO (05:48)
[2023-06-28] MEDS: Piperacillin Sodium/Tazobactam 4.5 GM in 0.9 % Sodium Chloride 100 ML IV ×2 (05:48→12:08)
[2023-06-28 07:10] LABS: Glucose, Whole Blood 82 mg/dL (60-115)
[2023-06-28 07:58] VITALS: BP 133/65; PULSE 82; RESP 18; TEMP 36.1; O2SAT 99
[2023-06-28 09:00] VITALS: RESP 19
[2023-06-28] MEDS: Enoxaparin Sodium 40 MG/0.4 ML SYRINGE SUBCUT (09:00)
[2023-06-28] MEDS: metFORMIN HCl 1,000 MG TABLET 1000 MG PO ×2 (09:00→17:26)
[2023-06-28] MEDS: lisinopriL 10 MG TABLET PO (09:00)
[2023-06-28] MEDS: Aspirin Enteric Coated 81 MG TABLET.DR PO (09:00)
[2023-06-28] MEDS: Furosemide 20 MG TABLET 60 MG PO (09:00)
[2023-06-28] MEDS: carvediloL 6.25 MG TABLET PO ×2 (09:00→20:28)
[2023-06-28] MEDS: 0.9 % Sodium Chloride Flush 3 ML SYRINGE IVFLUSH ×3 (09:01→20:28)
[2023-06-28 11:19] LABS: Glucose, Whole Blood 141 mg/dL (60-115)
--- NOTE | 2023-06-28 12:50 | MHC.CM.PN ---
[facility] was contacted to start home services. call worker reached x2. No return call received. 3rd call went to a voicemail. Notified MD OBREGON is unable to confirm home services acceptance and start of care date. notified unable to confirm Home care today. Plan is to discharge patient tomorrow with home services for wound care. Patient will transport via BLS.
[2023-06-28 13:18] VITALS: RESP 19
--- NOTE | 2023-06-28 13:39 | P.PNIM_ITS ---
Subjective Subjective Date of Service: 06/28/23 Interval History: Sitting comfortably on bed offers no acute complaints, stable left leg discomfort and swelling, tolerating diet no nausea, no vomiting, no abdominal pain, denies fever, no chills. Review of Systems All other system reviewed and negative. Physical Exam 2 Vital Signs: Vital Signs: Last Vital Signs Temp 97 F 06/28/23 07:58 Pulse 82 06/28/23 07:58 Resp 19 06/28/23 13:18 BP 133/65 06/28/23 07:58 Pulse Ox 99 06/28/23 07:58 O2 Del Method Room Air 06/28/23 07:58 BMI result Body Mass Index 29.0 Const: Other: Gen: Awake alert x3 in no acute distress Neck: supple, no JVD Lungs: clear to auscultation bilaterally Heart: regular rate and rhythm, no murmurs Abd: soft, non-tender, non-distended Ext: s/p R AKA , non healing left leg ulcers , no foul odor, redness and swelling improving Neuro: alert and oriented x3, no focal findings Psych: appropriate affect Objective Data Active Medications Acetaminophen (Acetaminophen 325 Mg Tablet) 650 mg PO Q6H PRN PRN Reason: Pain, Mild (Pain Scale 1-3) Last Admin: 06/24/23 20:17 Dose: 650 mg Documented By: GIBRAN Al Hydroxide/Mg Hydroxide (Magnesium Hydrox/Alum Hydrox 30 Ml Oral.Susp) 30 ml PO Q6H PRN PRN Reason: Heartburn Last Admin: 06/24/23 22:28 Dose: 30 ml Documented By: GIBRAN Albuterol Sulfate (Albuterol Sulfate (0.083%) 2.5 Mg/3 Ml Vial.Neb) 2.5 mg INHALE Q4H PRN PRN Reason: Wheezing Last Admin: 06/25/23 23:25 Dose: 2.5 mg Documented By: JUANJTAANDREA Albuterol Sulfate (Albuterol Sulfate 90 Mcg 8 Gm Inhaler) 2 puff INHALE Q4H PRN PRN Reason: wheezing Aspirin (Aspirin Enteric Coated 81 Mg Tablet.) 81 mg PO DAILY [facility] Last Admin: 06/28/23 09:00 Dose: 81 mg Documented By: COTNAHEED Atorvastatin Calcium (Atorvastatin Calcium 80 Mg Tablet) 80 mg PO BEDTIME [facility] Last Admin: 06/27/23 20:02 Dose: 80 mg Documented By: THIERRY Carvedilol (Carvedilol 6.25 Mg Tablet) 6.25 mg PO BID [facility]; Protocol Last Admin: 06/28/23 09:00 Dose: 6.25 mg Documented By: MANUEL Dextrose (Dextrose 50 % 25 Gm/50 Ml Syringe) 25 gm IVPUSH Q15M PRN; Protocol PRN Reason: per Hypoglycemia Standing Ord. Enoxaparin Sodium (Enoxaparin Sodium 40 Mg/0.4 Ml Syringe) 40 mg SUBCUT Q24H [facility] Last Admin: 06/28/23 09:00 Dose: 40 mg Documented By: MANUEL Furosemide (Furosemide 20 Mg Tablet) 60 mg PO DAILY [facility]; Protocol Last Admin: 06/28/23 09:00 Dose: 60 mg Documented By: MANUEL Glucose (Glucose Gel 15 Gm Gel..Gram.) 15 gm PO Q15M PRN; Protocol PRN Reason: per Hypoglycemia Standing Ord. Piperacillin Sod/Tazobactam (Sod 4.5 gm/ Sodium Chloride) 100 mls @ 200 mls/hr IV Q6H [facility] Last Infusion: 06/28/23 12:38 Dose: Infused Documented By: MANUEL Vancomycin HCl 1,250 mg/ (Sodium Chloride) 250 mls @ 166.667 mls/hr IV Q24H [facility] Last Infusion: 06/27/23 21:32 Dose: Infused Documented By: THIERRY Insulin Glargine (Insulin Glargine,Hum.Rec.Anlog 100 Unit/Ml 10 Ml Vial) 25 unit SUBCUT BEDTIME [facility] Last Admin: 06/27/23 20:33 Dose: Not Given Documented By: THIERRY Non-Admin Reason: pt refused blood sugar 120 Insulin Human Lispro (Insulin Lispro 100 Unit/Ml 3 Ml Vial) 0 unit SUBCUT QIDACHS [facility]; Protocol Last Admin: 06/28/23 11:27 Dose: Not Given Documented By: MANUEL Non-Admin Reason: No Insulin Coverage Lisinopril (Lisinopril 10 Mg Tablet) 10 mg PO DAILY [facility]; Protocol Last Admin: 06/28/23 09:00 Dose: 10 mg Documented By: MANUEL Melatonin (Melatonin 3 Mg Tablet) 6 mg PO BEDTIME PRN PRN Reason: Insomnia Last Admin: 06/24/23 20:16 Dose: 6 mg Documented By: EPIFANIOQC Metformin HCl (Metformin Hcl 1,000 Mg Tablet) 1,000 mg PO BIDWM [facility] Last Admin: 06/28/23 09:00 Dose: 1,000 mg Documented By: COTEMA Morphine Sulfate (Morphine Sulfate 2 Mg/Ml Cartridge) 4 mg IVPUSH Q4H PRN; Protocol PRN Reason: Pain, Severe (Pain Scale 7-10) Last Admin: 06/28/23 13:18 Dose: 4 mg Documented By: COTEMA Omeprazole (Omeprazole 20 Mg Capsule.Dr) 20 mg PO DAILY@0630 [facility] Last Admin: 06/28/23 05:48 Dose: 20 mg Documented By: ODRISGriselda Ondansetron HCl (Ondansetron Hcl 4 Mg/2 Ml Vial) 4 mg IVPUSH Q8H PRN PRN Reason: Nausea and Vomiting Pharmacy Consult (Consult Rx Vancomycin Dosing) 1 each MISCELLANE DAILY PRN PRN Reason: Consult order Sodium Chloride (0.9 % Sodium Chloride Flush 3 Ml Syringe) 3 ml IVFLUSH QSHIFT [facility] Last Admin: 06/28/23 09:01 Dose: 3 ml Documented By: COTEMA Tamsulosin HCl (Tamsulosin Hcl 0.4 Mg Capsule) 0.4 mg PO BEDTIME [facility] Last Admin: 06/27/23 20:02 Dose: 0.4 mg Documented By: TOMASARISGriselda Labs 06/27/23 08:08 06/27/23 05:46 Labs: Laboratory Results - last 24 hr 06/27/23 06/27/23 06/27/23 16:18 18:06 20:10 POC Glucose 110 120 H Vancomycin Trough 15.3 06/28/23 06/28/23 07:01 11:07 POC Glucose 82 141 H Vancomycin Trough Assessment and Plan (1) Recurrent cellulitis of lower extremity: Status: Acute Plan This is a 62-year-old male with pertinent history of peripheral vascular disease status post right AKA, congestive heart failure with reduced ejection fraction, insulin-dependent type 2 diabetes mellitus, BPH, mixed hyperlipidemia, gastroesophageal reflux disease who presents to the emergency department for evaluation of left lower extremity pain, redness foul-smelling discharge. Sepsis due to recurrent left lower leg cellulitis with infected diabetic ulcers: ? due to medication noncompliance. Redness in left leg swelling significantly improved Improving, WBC normalized, blood cultures x2 negative -will DC iv Zosyn +Vanco and placed on doxycycline -dressing as recommended by Dr. Dia -case technician to arrange for VNA services with dressing change daily Acute decompensation of congestive heart failure with reduced ejection fraction--initially treated with IV Lasix and now on oral Lasix. Recommend compliance with home medication Peripheral vascular disease: On high-intensity statin and ASA Insulin-dependent diabetes mellitus: stable blood sugars, continue present regimen BPH: On Flomax Mild persistent asthma: No exacerbation during admission. Continue home inhalers DVT prophylaxis: Lovenox Full code Need for inpt: Cellulitis of the leg, covering more than 50 % of the limb and needing IV Abx Quality Stroke Does the patient have a stroke diagnosis?: No VTE Prior VTE?: No VTE Risk Level:: Medical - moderate - high VTE Device Contraindication: Treatment Not Indicated VTE Drug Contraindication: N/A - Med Ordered
[2023-06-28] MEDS: Doxycycline Monohydrate 100 MG CAPSULE PO (14:25)
[2023-06-28 14:56] VITALS: BP 135/72; PULSE 76; RESP 18; TEMP 36.1; O2SAT 98
[2023-06-28 16:44] LABS: Glucose, Whole Blood 137 mg/dL (60-115)
[2023-06-28 20:07] LABS: Glucose, Whole Blood 178 mg/dL (60-115)
[2023-06-28] MEDS: Insulin Lispro 100 UNIT/ML 3 ML VIAL SUBCUT (20:28)
[2023-06-28] MEDS: Atorvastatin Calcium 80 MG TABLET PO (20:28)
[2023-06-28] MEDS: Tamsulosin HCL 0.4 MG CAPSULE PO (20:28)
[2023-06-29] VITALS: BP 135/70; PULSE 83; RESP 18; TEMP 36.2; O2SAT 98
[2023-06-29] MEDS: Doxycycline Monohydrate 100 MG CAPSULE PO (02:00)
[2023-06-29] MEDS: Morphine Sulfate 2 MG/ML CARTRIDGE 4 MG IVPUSH ×2 (02:00→06:00)
[2023-06-29 02:40] VITALS: RESP 16
[2023-06-29] MEDS: Omeprazole 20 MG CAPSULE.DR PO (05:56)
[2023-06-29 06:25] LABS: Creatinine Clr Calc Pharmacy 90.2; Estimated Glomerular Filt Rate > 60
[2023-06-29 06:31] VITALS: RESP 16
[2023-06-29 07:31] LABS: Glucose, Whole Blood 85 mg/dL (60-115)
[2023-06-29 07:55] VITALS: BP 129/60; PULSE 76; RESP 18; TEMP 36; O2SAT 96
[2023-06-29] MEDS: Aspirin Enteric Coated 81 MG TABLET.DR PO (09:37)
[2023-06-29] MEDS: lisinopriL 10 MG TABLET PO (09:37)
[2023-06-29] MEDS: carvediloL 6.25 MG TABLET PO (09:37)
[2023-06-29] MEDS: metFORMIN HCl 1,000 MG TABLET 1000 MG PO (09:37)
[2023-06-29] MEDS: 0.9 % Sodium Chloride Flush 3 ML SYRINGE IVFLUSH (09:38)
[2023-06-29] MEDS: Enoxaparin Sodium 40 MG/0.4 ML SYRINGE SUBCUT (09:38)
[2023-06-29] MEDS: Furosemide 20 MG TABLET 60 MG PO (09:38)
--- NOTE | 2023-06-29 10:24 | P.DS_ITS ---
DS: Providers Provider Date of Service: 06/29/23 Date of admission: 06/24/23 05:40 Primary care physician: Tanvir Melendez MD Consults: 06/24/23 05:42 Consult to Vascular Surgery [place]ine [place]ing [place] [facility] [facility] Reason for consultation: left lower extremity pvd 06/24/23 05:48 Consult to Infectious Diseases Routine Consulting [place] [facility] [place] [facility] Reason for consultation: Left lower extremity cellulitis 06/24/23 19:55 Consult to Wound Care Routine Reason for consultation: ulcers to left leg DS: Diagnosis Discharge Diagnosis (1) Recurrent cellulitis of lower extremity: Status: Acute DS: Summary Hospital Course Hospital Course: History of presenting illness: Date of Service: 06/24/23 Chief Complaint: Left leg pain This is a 62-year-old male with pertinent history of peripheral vascular disease status post right AKA, congestive heart failure with reduced ejection fraction, insulin-dependent type 2 diabetes mellitus, BPH, mixed hyp erlipidemia, gastroesophageal reflux disease who presents to the emergency department for evaluation of left lower extremity pain, redness foul-smelling discharge. Of note, patient was admitted twice in the last 1 month for left lower extremity cellulitis and discharged home with p.o. antibiotics. There is question of medication compliance. Patient states his wound dressing was not changed for the last 3 days as his [employer] had COVID. Initially he stated that he took his antibiotic once daily but then stated that he took it 3 times a day. Unable to list his medications but states he is compliant with it. The left lower extremity has been red, edematous and draining foul-smelling purulent fluid. Also admits orthopnea and left lower extremity swelling. No fever, chills, nausea, vomiting, chest discomfort, palpitations, abdominal pain, changes in urinary or bowel habits. In the emergency department, patient's BNP and WBC found to be elevated. Hospital course: 62-year-old male with pertinent history of peripheral vascular disease status post right AKA, congestive heart failure with reduced ejection fraction, insulin-dependent type 2 diabetes mellitus, BPH, mixed hyperlipidemia, gastroesophageal reflux disease who presents to the emergency department for evaluation of left lower extremity pain, redness foul-smelling discharge and was admitted to medical floor with a diagnosis of Sepsis due to recurrent left lower leg cellulitis with infected diabetic ulcers: ? due to medication noncompliance. Patient treated with IV vancomycin and Zosyn, blood cultures x2 came back negative patient seen by Dr. Dia who recommended dressing change every other day patient evaluated by Dr. Meng she recommended to resume doxycycline after 3-4 days of IV antibiotics since patient WBC count has normalized ,and has no fever, no chills ,left lower extremity redness and swelling significantly improved therefore he is being discharged home, with strong recommendation to have compliance with home medication, he is being discharged with VNA services for dressing change Acute decompensation of congestive heart failure with reduced ejection fraction,--initially treated with IV Lasix and now on oral Lasix home dose. Recommend compliance with home medication Peripheral vascular disease: Continue high-intensity statin and ASA. Insulin-dependent diabetes mellitus: stable blood sugars, continue metformin dose of Lantus dose reduced from 42 units to 30 units recommend to increase dose of Lantus if noted to have elevated blood sugars BPH: Continue Flomax Mild persistent asthma: No exacerbation during admission,Continue home inhalers. Time Attestation Discharge coordination time: Greater than 30 minutes Quality: Safe Use of Opioids Does Pt have an Active Cancer Diagnosis on the Problem List?: No Quality: Stroke Does the patient have a stroke diagnosis?: No Physical Exam Vital Signs: Vital Signs: Last Vital Signs Temp 96.8 F 06/29/23 07:55 Pulse 76 06/29/23 07:55 Resp 18 06/29/23 07:55 BP 129/60 06/29/23 07:55 Pulse Ox 96 06/29/23 07:55 O2 Del Method Room Air 06/29/23 07:55 BMI result Body Mass Index 29.0 Const: Other: Gen: Awake alert x3 in no acute distress Neck: supple, no JVD Lungs: clear to auscultation bilaterally Heart: regular rate and rhythm, no murmurs Abd: soft, non-tender, non-distended Ext: s/p R AKA , non healing left leg ulcer , no foul odor, redness and swelling left leg significantly improved. Neuro: alert and oriented x3, no focal findings Psych: appropriate affect DS: Data Data Completed and Pending Completed studies during hospitalization [Text1]: Procedures Detachment at Right Lower Leg, Mid, Open Approach (12/21/22) Detachment at Right Upper Leg, Mid, Open Approach (03/16/23) Drainage of Perineum Skin, External Approach (12/10/20) Excision of Right Upper Leg Muscle, Open Approach (01/14/23) Insertion of Infusion Device into Superior Vena Cava, Percutaneous Approach (01/14/23) Introduction of Anesthetic Agent into Peripheral Nerves and Plexi, Percutaneous Approach (01/14/23) Ultrasonography of Superior Vena Cava, Guidance (01/14/23) Labs on day of discharge: Laboratory Results - last 24 hr 06/28/23 06/28/23 06/28/23 11:07 16:27 19:55 Creatinine Estim Creat Clear Calc Estimated GFR POC Glucose 141 H 137 H 178 H 06/29/23 06/29/23 05:58 07:14 Creatinine 0.83 Estim Creat Clear Calc 90.2 Estimated GFR > 60 POC Glucose 85 Discharge Plan Discharge Anticipated Discharge Date/Time: 06/29/23 10:19 Patient Disposition: Home Health Service Discharge Diagnosis: Sepsis due to recurrent left lower leg cellulitis Diabetic left leg ulcer Acute decompensation of CHF with reduced EF Referrals: Tanvir Melendez MD [Primary Care Provider] - 1 Week Discharge Medications: Continued atorvastatin 80 mg tablet 80 mg PO BEDTIME albuterol sulfate 2.5 mg /3 mL (0.083 %) solution for nebulization 2.5 mg inhalation Q4H PRN (Reason: Wheezing) pantoprazole 20 mg tablet,delayed release (DR/EC) 20 mg PO DAILY@0630 albuterol sulfate [Ventolin HFA] 90 mcg/actuation HFA aerosol inhaler 2 puff INHALATION Q4H PRN (Reason: wheezing) aspirin 81 mg tablet,delayed release (DR/EC) 81 mg PO DAILY tamsulosin 0.4 mg capsule 0.4 mg PO BEDTIME insulin lispro 100 unit/mL insulin pen 10 unit subcut BID@0800,1200 Rx Instructions: TWICE A DAY AT BREAKFAST AND LUNCH carvedilol 6.25 mg Tablet 6.25 mg PO BID Qty: 60 0RF Protocol: Hold for SBP/HR < HOLD for SBP < : 90 HOLD for HR < : 60 lisinopril 10 mg Tablet 10 mg PO DAILY Qty: 30 0RF Protocol: Hold for SBP< HOLD for SBP < : 90 doxycycline hyclate 100 mg capsule 100 mg PO BID Qty: 28 0RF Rx Instructions: END DATE: 07/04/23 furosemide 20 mg tablet 60 mg PO DAILY Qty: 90 0RF metformin 1,000 mg Tablet 1,000 mg PO BIDWM Changed insulin glargine [Lantus Solostar U-100 Insulin] 100 unit/mL (3 mL) insulin pen 30 unit subcut BEDTIME Qty: 15 0RF Discharge Orders: Discharge Order (Routine); Ordered 06/29/23 Ordered By: Joel Mckoen Diet: Diabetic diet Activity on Discharge: As tolerated Stand Alone Forms: Patient Portal Discharge page Print Language: Armenian Activity Restrictions/Additional Instructions: Wound care upon discharge: [facility] followed by [facility] and 6 in [place] to be changed every other day. Please call Dr. Dia at [phone] for 2 week follow up Care Plan Goals: Decompensated congestive heart failure strongly recommend to take all medications as prescribed Diabetes mellitus noted to have stable blood sugars in the hospital recommend to follow diabetic diet dose of Lantus reduced to 30 units at bedtime continue pre meal insulin and metformin if noted to have high blood sugars increase dose of Lantus back to 42 units Continue dressing to left leg as above Health Concerns: His strongly recommend to take all medications as prescribed to avoid recurrent hospitalizations Plan of Treatment: Follow-up with primary care physician call for appointment in 1-2 weeks follow up with Dr. Dia call for appointment in 2 weeks Assessment: As above
--- NOTE | 2023-06-29 10:49 | MHC.CM.PN ---
EMR reviewed. Per MD rounds patient is medically cleared for dc home, resume [facility] services and start VNA services for wound care. Referral was placed to [facility]. However, they are not able to access [facility] at this time. SABAS faxed over documentation to [phone] and spoke with [facility], who confirmed that they have accepted the patient and will provide services. [facility] is willing to learn dressing changes and will be present for first VNA appointment. BLS transportation booked for 11:30am - patient is fall risk w/ R AKA, LLE cellulitis. MD and RN aware.
[2023-06-29 11:24] LABS: Glucose, Whole Blood 118 mg/dL (60-115)
--- NOTE | 2023-06-29 12:04 | P.F2F_ITS ---
Service Date Service Date: 06/29/23 Encounter Date of encounter: 06/29/23 Reasons for Services Signs and symptoms assessed: Left leg swelling/recurrent cellulitis and left leg ulcer / dressing change every other day Homebound: Leaving the home is medically contraindicated at this time without the asist of a device and/or another person due th the listed conditions above and below. Reason homebound: weakness related to hospital stay Certification: Based on the above findings, I certify that this patient is confined to the home and needs intermittent long-term care, physical therapy and/or speech therapy, or continues to need occupational therapy. The patient is under my care, and I have initiated the establishment of the plan of care. The patient will be followed by a physician who will periodically review the plan of care. Time Spent With Patient Time: Total time managing care of this patient today ____ minutes.
== END 2023-06-29 12:04 | disposition home health service (06) | DRG 720 ==
LOC: HO.ED 05:24 → HO.EDOVER 05:43 → HO.S3 18:20
PROVIDERS: Internal Medicine; Admitting Provider Student in an Organized Health Care Education/Training Program; Emergency Provider Emergency Medicine; PCP Internal Medicine; Referring Provider Family Medicine; Visit Provider Hospitalist
DX: A41.9 Sepsis, unspecified organism (principal); I50.23 Acute on chronic systolic (congestive) heart failure; Z89.611 Acquired absence of right leg above knee; E11.622 Type 2 diabetes mellitus with other skin ulcer; J45.30 Mild persistent asthma, uncomplicated; E78.2 Mixed hyperlipidemia; L97.829 Non-pressure chronic ulcer of other part of left lower leg with unspecified severity; F17.210 Nicotine dependence, cigarettes, uncomplicated; L03.116 Cellulitis of left lower limb; I25.10 Atherosclerotic heart disease of native coronary artery without angina pectoris; Z71.6 Tobacco abuse counseling; Z91.148 Patient's other noncompliance with medication regimen for other reason; N40.0 Benign prostatic hyperplasia without lower urinary tract symptoms; Z79.4 Long term (current) use of insulin; Z79.82 Long term (current) use of aspirin; Z79.84 Long term (current) use of oral hypoglycemic drugs; Z79.899 Other long term (current) drug therapy
CPT/HCPCS: 36415; 80048; 80076; 80202; 82565; 82947; 83605; 83735; 83880; 85025; 85027; 85652; 86140; 87040; 94640; 99285; J1650; J1940; J2270; J2543; J3370; J3371

== ENCOUNTER → 2023-06-24 05:40 | Outpatient (BNV) | payer MEDICAID, SELFPAY | PROVIDERS: Admitting Provider Student in an Organized Health Care Education/Training Program; Emergency Provider Emergency Medicine; PCP Internal Medicine; Visit Provider Surgery Vascular Surgery | DX: L03.119 Cellulitis of unspecified part of limb (principal) | CPT/HCPCS: 99222; 99232 ==

== ENCOUNTER → 2023-06-24 05:40 | Outpatient (BNV) | payer MEDICAID, SELFPAY | PROVIDERS: Admitting Provider Student in an Organized Health Care Education/Training Program; Emergency Provider Emergency Medicine; Visit Provider Student in an Organized Health Care Education/Training Program | DX: L03.116 Cellulitis of left lower limb (principal) | CPT/HCPCS: 99222; 99232; 99233; 99239; 99499; G0180 ==

== ENCOUNTER → 2023-06-24 05:40 | Outpatient (BNV) | payer MEDICAID, SELFPAY | PROVIDERS: Admitting Provider Student in an Organized Health Care Education/Training Program; Emergency Provider Emergency Medicine; PCP Internal Medicine; Visit Provider Internal Medicine | DX: L03.119 Cellulitis of unspecified part of limb (principal) | CPT/HCPCS: 99222 ==

== ENCOUNTER 2023-06-29 23:58 | Emergency (ER) | payer MEDICAID, SELFPAY ==
--- NOTE | ~2023-06-29 | CT_ITS ---
EXAMINATION: CT ANGIOGRAPHY LEGS WITH RUNOFF CLINICAL INFORMATION: : Left lower extremity. COMPARISON: 11/17/2022. TECHNIQUE: Contiguous axial contrast-enhanced CT scan images of the abdomen and pelvis performed. Bilateral lower extremity arterial runoff also performed. Sagittal and coronal reformatted images also obtained. This CT examination was performed using dose optimization techniques as appropriate, variously including the following: *Automated exposure control *Adjustment of mA and/or kV according to patient size (this includes techniques or standardized protocols for targeted exams where dose is matched to indication/reason for exam; i.e. extremities or head) *Use of iterative reconstruction technique DLP: 463 mGy-cm FINDINGS: LUNG BASES: There are small bilateral pleural effusions greater on the right with minimal associated atelectasis. LIVER, GALLBLADDER, AND BILIARY TREE: The liver is slightly irregular in contour. No focal liver lesions are seen. There is no intrahepatic biliary duct dilatation. The gallbladder is unremarkable with no evidence of radiopaque gallstones, gallbladder wall thickening, or obvious pericholecystic inflammatory changes. PANCREAS: Unremarkable. SPLEEN: Unremarkable. ADRENAL GLANDS: Unremarkable. KIDNEYS AND URETERS: The kidneys are normal in size and position. There is a stable 1.7 cm cyst lower pole right kidney. There is a stable 1.6 cm hypodensity mid pole left kidney. There is no hydronephrosis. BLADDER: Unremarkable. GASTROINTESTINAL TRACT: There is retained stool throughout the colon. ABDOMINAL WALL: There is minimal umbilical hernia containing fat. There is soft tissue anasarca. There are bilateral inguinal hernias containing fat. LYMPH NODES: Normal. VASCULAR: There is significant atherosclerotic plaque of the abdominal aorta and proximal branches. PELVIC VISCERA: Unremarkable. OSSEOUS STRUCTURES: Unremarkable. Lower extremity runoff: There is a right [id number] amputation. There is a significant atherosclerotic plaque throughout the iliac vessels with moderate narrowing proximal left external iliac artery. There is plaque throughout the right external iliac artery with a femoral artery stents in place. There is moderate narrowing of the common femoral artery on the left with a left femoral artery stents in place. The profunda femoral artery is patent. There is flow demonstrated within the left profunda femoral artery as well as popliteal artery. The trifurcation arteries are small in size but patent. CT/CT angio abd aorta runoff IMPRESSION: 1. There is significant atherosclerotic plaque of the abdominal aorta and proximal branches. There is moderate narrowing of the left external iliac artery. There are bilateral femoral artery stents in place. The trifurcation arteries are small in size but are patent on the left. 2. There are small bilateral pleural effusions greater on the right. 3. There is irregular contour of the liver. Consider hepatocellular disease. 4. There is retained stool throughout the colon. 5. There is a stable 1.6 cm hypodensity mid pole left kidney. This could be further evaluated with ultrasound 6. There is a minimal umbilical hernia containing fat. There are bilateral inguinal hernias containing fat. There is soft tissue anasarca. 7. There is a right [id number] amputation. There is moderate narrowing of the left common femoral artery with a left femoral artery stents in place. There is flow demonstrated within the left profunda femoral artery as well as the popliteal artery. The trifurcation arteries are small in size but patent.
[2023-06-30 00:13] VITALS: BP 130/68; PULSE 88; O2SAT 97
[2023-06-30 00:16] VITALS: BP 126/53; PULSE 84; RESP 16; TEMP 36.7; O2SAT 98; BMI 32.6
[2023-06-30 01:19] LABS: MANUAL DIFF FLAG NO
[2023-06-30 01:21] LABS: Basophils Absolute Auto 0.1 X10*3/uL (0.0-0.2); Basophils Percent Auto 0.7 % (0-2); Eosinophils Absolute Auto 0.1 X10*3/uL (0.0-0.4); Eosinophils Percent Auto 1.6 % (0-4); Hematocrit 36.2 % (42.0-52.0); Hemoglobin 11.4 g/dl (14.0-18.0); Imm Gran Abs Auto 0.03 X10*3/uL (0.00-0.03); Imm Gran Pct Auto 0.3 % (0.0-0.4); Lymphocytes Absolute Auto 1.3 X10*3/uL (1.2-4.9); Mean Corpuscular HGB Conc 31.5 g/dl (31.0-36.0); Mean Corpuscular Hemoglobin 25.9 pg (27.0-33.0); Mean Corpuscular Volume 82.1 fL (80.0-98.0); Mean Platelet Volume 9.6 fL (9.4-12.4); Monocytes Absolute Auto 0.7 X10*3/uL (0.1-1.2); Monocytes Percent Auto 8.5 % (2-11); Neutrophils Absolute Auto 6.4 x10*3/uL (2.0-8.3); Neutrophils Percent Auto 73.9 % (45-73); Platelet Count 307 X10*3/uL (160-400); Red Blood Count 4.41 X10*6/uL (4.60-5.80); Red Cell Distribution Width 17.2 % (11.0-16.0); White Blood Count 8.7 X10*3/uL (4.8-10.8)
[2023-06-30 01:26] LABS: INTERNATIONAL NORM RATIO 1.6 (0.9-1.1); Prothrombin Time 19.6 SEC (11.1-13.3)
[2023-06-30 01:35] LABS: Alanine Aminotransferase 10 U/L (0-40); Albumin Level 3.2 g/dL (3.5-5.0); Alkaline Phosphatase 204 U/L (39-117); Anion Gap 15 (12-20); Aspartate Amino Transferase 15 U/L (5-37); Bilirubin Total 0.6 mg/dL (0.0-1.0); Blood Urea Nitrogen 20 mg/dL (9-16); Calcium 8.8 mg/dL (8.4-10.2); Carbon Dioxide 23 mmol/L (22-29); Chloride 102 mmol/L (96-108); Creatinine Clr Calc Pharmacy 82.3; Estimated Glomerular Filt Rate > 60; Glucose Random 241 mg/dL (60-115); Potassium 3.8 mmol/L (3.3-5.1); Sodium 136 mmol/L (135-145); Total Protein 7.2 g/dL (6.5-8.0)
--- NOTE | 2023-06-30 01:47 | ED.GENADULT ---
HPI - General Adult General Chief complaint: Wound/Laceration Stated complaint: Left chin pain Time Seen by Provider: 06/30/23 00:34 Source: patient, EMS and private banker Mode of arrival: EMS History of Present Illness HPI narrative: 62-year-old male who was just discharged comes in with complaints of left lower extremity pain due to chronic nonhealing diabetic ulcer. Related Data Home Medications Medication Instructions Recorded Confirmed albuterol sulfate 2.5 mg/3 mL 2.5 mg inhalation Q4H PRN Wheezing 06/04/23 06/24/23 (0.083 %) solution for nebulization albuterol sulfate 90 mcg/actuation 2 puff inhalation Q4H PRN wheezing 06/04/23 06/24/23 aerosol inhaler (Ventolin HFA) atorvastatin 80 mg tablet 80 mg PO BEDTIME 06/04/23 06/24/23 pantoprazole 20 mg tablet,delayed 20 mg PO DAILY@0630 06/04/23 06/24/23 release aspirin 81 mg tablet,delayed 81 mg PO DAILY 06/17/23 06/24/23 release insulin lispro 100 unit/mL 10 unit subcut BID@0800,1200 06/17/23 06/24/23 subcutaneous pen tamsulosin 0.4 mg capsule 0.4 mg PO BEDTIME 06/17/23 06/24/23 metformin 1,000 mg tablet 1,000 mg PO BIDWM 06/24/23 06/24/23 Previous Rx's Medication Instructions Recorded carvedilol 6.25 mg tablet 6.25 mg PO BID #60 tabs 06/19/23 doxycycline hyclate 100 mg capsule 100 mg PO BID #28 caps 06/19/23 furosemide 20 mg tablet 60 mg (3 x 20 mg) PO DAILY #90 tabs 06/19/23 lisinopril 10 mg tablet 10 mg PO DAILY #30 tabs 06/19/23 insulin glargine 100 unit/mL (3 30 unit (0.3 mL) subcut BEDTIME 06/29/23 mL) subcutaneous pen (Lantus #15 mL Solostar U-100 Insulin) Allergies Allergy/AdvReac Type Severity Reaction Status Date / Time No Known Allergies Allergy Verified 04/27/23 14:10 Review of Systems Review of Systems: Pertinent positives and negatives as stated in HPI [facility] Past Medical History Source: nursing notes reviewed Medical History PVD (peripheral vascular disease) Type 2 diabetes mellitus PAD (peripheral artery disease) Right above-knee amputee History of right above knee amputation Infection of amputation site of lower extremity BKA stump complication Below-knee amputation of right lower extremity BPH (benign prostatic hyperplasia) Cardiomyopathy CAD (coronary artery disease) History of peripheral vascular disease Coronary artery disease Cardiomyopathy Essential hypertension Type 2 diabetes mellitus with unspecified complications Abscess, perineum Asthma High cholesterol HTN (hypertension) Diabetes Surgical History History of surgical removal of pilonidal cyst Hx of hand surgery Hx of hand surgery History of cardiac cath S/P angiogram of extremity Hx of varicose vein stripping Family History Family History Father No problems noted. Mother Diabetes HTN (hypertension) Sister No problems noted. Sister Diabetes HTN (hypertension) Sister No problems noted. 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 Patient Tobacco Use Status: Current everyday Tobacco user Tobacco use type: Cigarette Cigarette Packs Per Day: 0.5 Cigarettes Per Day: 2 Years Smoked: 15+ Second Hand Smoke Exposure: No Advance Directives: Yes Advance Directives on File: Yes Advance Directives Date on File: 12/10/20 service: No Current occupational status: disabled Physical Exam ED Vital Signs: Vital Signs - 24 hr 06/30/23 00:16 06/30/23 02:06 06/30/23 05:43 Temperature 98.1 F 97.6 F 97.9 F Pulse Rate 84 78 78 Respiratory Rate 16 20 16 Blood Pressure 126/53 L 139/69 128/74 Pulse Oximetry 98 100 100 Oxygen Delivery Method Room Air Room Air Room Air BMI result Body Mass Index 32.6 VITAL SIGNS: Reviewed. GENERAL: Well developed, well nourished, in no acute distress. HEAD: Normocephalic/atraumatic EYES: PERRLA, EOMI EARS: Ext canals without abnormality LUNGS: Normal breath sounds. No adventitious sounds or accessory muscle use. SpO2<100> CARDIOVASCULAR: Regular rate and rhythm without noted murmurs ABDOMEN: Soft, non-tender, non-distended with bowel sounds. MUSCULOSKELETAL: No tenderness, deformities, or effusions noted on gross inspection. EXTREMITIES: No cyanosis, clubbing or edema. Left lower extremity: Appears well healing, please see attached images, feels cool to the touch however SKIN: Inspection of the skin reveals no rashes NEUROLOGIC: Alert and oriented x 4. Strength and sensation to light touch were grossly intact x 4. Medications Administered Discontinued Medications Generic Name Dose Route Start Last Admin Trade Name Freq PRN Reason Stop Dose Admin Acetaminophen 975 mg 06/30/23 03:59 06/30/23 04:37 Acetaminophen 325 Mg Tablet PO 06/30/23 04:00 Not Given ONCE ONE Iohexol 100 ml 06/30/23 02:03 06/30/23 02:04 Iohexol 350 Mg/Ml 100 Ml Infus..Btl IV 06/30/23 02:04 100 ml ONCE ONE Administration Medical Decision Making Medical Decision Making [facility] Narrative: 62-year-old male with history and clinical presentation initially concerning for possible ischemic limb, proceed with CT angio with runoff. Otherwise wounds look to be well healing. I reviewed all investigations and hematologic indices are chronically stable without leukocytosis and there is a stable normocytic anemia without thrombocytopenia. Coagulation studies are chronically stable inconsistent with the use of chronic anticoagulation. Chemistry indices are grossly with chronic/stable limits, there is no BIRDIE or electrolyte/liver enzyme derangements. CT angio without acute findings to suggest acute occlusion. After review of all investigations there are no acute findings to better explain patient's presentation, wound appears to be well healing. Will confirm with case management regarding VNA services. If in place, patient will be transported back home. I evaluated patient has VNA services with case management and the Services will be arriving today, patient also has a [employer]. Differential Diagnosis Differential Diagnoses: The differential diagnosis associated with the presentation includes Please see the discussion above Admission/Observation Consideration of admission/observation: Escalation of care including admission/observation considered Please see the discussion above Lab Data [facility] Lab Attestation statement: I reviewed the patient's lab results. Please see the discussion above 06/30/23 01:15 06/30/23 01:15 Labs: Lab Results 06/30/23 Range/Units 01:15 WBC 8.7 (4.8-10.8) X10*3/uL RBC 4.41 L (4.60-5.80) X10*6/uL Hgb 11.4 L (14.0-18.0) g/dl Hct 36.2 L (42.0-52.0) % MCV 82.1 (80.0-98.0) fL MCH 25.9 L (27.0-33.0) pg MCHC 31.5 (31.0-36.0) g/dl RDW 17.2 H (11.0-16.0) % Plt Count 307 (160-400) X10*3/uL MPV 9.6 (9.4-12.4) fL Immature Gran % (Auto) 0.3 (0.0-0.4) % Neut % (Auto) 73.9 H (45-73) % Lymph % (Auto) 15.0 L (20-40) % [place] % (Auto) 8.5 (2-11) % Eos % (Auto) 1.6 (0-4) % Baso % (Auto) 0.7 (0-2) % Lymph # (Auto) 1.3 (1.2-4.9) X10*3/uL [place] # (Auto) 0.7 (0.1-1.2) X10*3/uL Eos # (Auto) 0.1 (0.0-0.4) X10*3/uL Baso # (Auto) 0.1 (0.0-0.2) X10*3/uL Abs Immat Gran (auto) 0.03 (0.00-0.03) X10*3/uL Absolute Neuts (auto) 6.4 (2.0-8.3) x10*3/uL Absolute Nucleated RBC 0.000 (0.0-0.012) X10*3/uL Nucleated RBC % (auto) 0.0 (0.0-0.2) /100WBC PT 19.6 H (11.1-13.3) SEC INR 1.6 H (0.9-1.1) APTT 32.0 (26.0-36.4) SEC Sodium 136 (135-145) mmol/L Potassium 3.8 (3.3-5.1) mmol/L Chloride 102 (96-108) mmol/L Carbon Dioxide 23 (22-29) mmol/L Anion Gap 15 (12-20) BUN 20 H (9-16) mg/dL Creatinine 0.96 (0.5-1.4) mg/dL Estim Creat Clear Calc 82.3 Estimated GFR > 60 Random Glucose 241 H (60-115) mg/dL Calcium 8.8 D (8.4-10.2) mg/dL Total Bilirubin 0.6 (0.0-1.0) mg/dL AST 15 (5-37) U/L ALT 10 (0-40) U/L Alkaline Phosphatase 204 H (39-117) U/L Total Protein 7.2 (6.5-8.0) g/dL Albumin 3.2 L (3.5-5.0) g/dL Radiology Impression Discussion of test interpretation with radiology: I have reviewed the radiologist's reading. Radiologist Impression: Please see the discussion above External Record Review External record reviewed: Inpatient record, Outpatient record, Prior outpatient labs and Prior outpatient radiology Chronic Conditions Patient?s care impacted by: Diabetes and Hypertension Critical Care Time Critical Care Time Critical Care Time: Yes Total Critical Care Time: 45 Attestation: I personally attest to this time spent taking care of the patient. Discharge Plan Discharge Clinical Impression: Leg pain Patient Disposition: Home, Self-Care Instructions: Leg Pain (ED) Additional Instructions: 1. Reanudar todos los medicamentos caseros seg?n lo recetado. 2. Darya servicios VNA y [employer] deber?an estar en [place] casa hoy. 3. Howard un seguimiento con [place] m?dico de atenci?n primaria. 1. Resume all home medications as prescribed. 2. Your VNA services and [employer] should be at your home today. 3. Please follow-up with primary care doctor. Prescriptions: No Action atorvastatin 80 mg tablet 80 mg PO BEDTIME albuterol sulfate 2.5 mg /3 mL (0.083 %) solution for nebulization 2.5 mg inhalation Q4H PRN (Reason: Wheezing) pantoprazole 20 mg tablet,delayed release (DR/EC) 20 mg PO DAILY@0630 albuterol sulfate [Ventolin HFA] 90 mcg/actuation HFA aerosol inhaler 2 puff INHALATION Q4H PRN (Reason: wheezing) aspirin 81 mg tablet,delayed release (DR/EC) 81 mg PO DAILY tamsulosin 0.4 mg capsule 0.4 mg PO BEDTIME insulin lispro 100 unit/mL insulin pen 10 unit subcut BID@0800,1200 Rx Instructions: TWICE A DAY AT BREAKFAST AND LUNCH carvedilol 6.25 mg Tablet 6.25 mg PO BID Qty: 60 0RF Protocol: Hold for SBP/HR < HOLD for SBP < : 90 HOLD for HR < : 60 lisinopril 10 mg Tablet 10 mg PO DAILY Qty: 30 0RF Protocol: Hold for SBP< HOLD for SBP < : 90 doxycycline hyclate 100 mg capsule 100 mg PO BID Qty: 28 0RF Rx Instructions: END DATE: 07/04/23 furosemide 20 mg tablet 60 mg PO DAILY Qty: 90 0RF metformin 1,000 mg Tablet 1,000 mg PO BIDWM insulin glargine [Lantus Solostar U-100 Insulin] 100 unit/mL (3 mL) insulin pen 30 unit subcut BEDTIME Qty: 15 0RF Referrals: Loli Augustin MD [Primary Care Provider] - Print Language: Divehi
[2023-06-30] MEDS: iohexoL 350 MG/ML 100 ML INFUS..BTL IV (02:04)
[2023-06-30 02:06] VITALS: BP 139/69; PULSE 78; RESP 20; TEMP 36.4; O2SAT 100
--- NOTE | 2023-06-30 04:37 | PC.NURSE ---
pt refusing to take Tylenol; states morphine is the only thing that works for me. pt does not have a pain management regiment at home.
[2023-06-30 05:43] VITALS: BP 128/74; PULSE 78; RESP 16; TEMP 36.6; O2SAT 100
--- NOTE | 2023-06-30 06:28 | MHC.EDTECH ---
call out to [facility] at 0628 to book transport for pt back home, estimated eta given was 0800
--- NOTE | 2023-06-30 07:07 | PC.NURSE ---
Report taken from Brice RN assumed care of pt at this time. Awaiting ambulance for dc home ETA 0800. Resting comfortably on stretcher skin pwd respirations even unlabored.
== END 2023-06-30 08:48 | disposition home or self-care (01) ==
PROVIDERS: Emergency Provider Student in an Organized Health Care Education/Training Program; PCP Family Medicine
DX: M79.605 Pain in left leg (principal); E11.622 Type 2 diabetes mellitus with other skin ulcer; L97.929 Non-pressure chronic ulcer of unspecified part of left lower leg with unspecified severity; I10 Essential (primary) hypertension; Z89.612 Acquired absence of left leg above knee
CPT/HCPCS: 36415; 75635; 80053; 85025; 85610; 85730; 99284; Q9967

== ENCOUNTER 2023-07-09 12:32 | Emergency (ER) | payer MEDICAID, SELFPAY ==
--- NOTE | 2023-07-09 12:39 | ED.GENADULT ---
HPI - General Adult General Chief complaint: General Medical Stated complaint: LOWER LEFT EXT NO PULSES AND BLUE PER EMS Time Seen by Provider: 07/09/23 12:36 Source: patient and EMS Mode of arrival: EMS Limitations: other (Poor historian) History of Present Illness HPI narrative: 62-year-old male history of BKA to right lower extremity, diabetes, BPH, high cholesterol presenting to the emergency department for evaluation of sudden onset left lower extremity pain that started this morning as well as discolored left lower extremity, patient reports his left leg was in severe pain then it turned purple and now it is very cold. Patient states this just does not feel right. Reports associated numbness and tingling. He reports the pain is from the knee down. No chest pain, shortness of breath, headache, vision changes, dizziness, fevers, chills. Related Data Home Medications Medication Instructions Recorded Confirmed albuterol sulfate 2.5 mg/3 mL 2.5 mg inhalation Q4H PRN Wheezing 06/04/23 07/09/23 (0.083 %) solution for nebulization albuterol sulfate 90 mcg/actuation 2 puff inhalation Q4H PRN wheezing 06/04/23 07/09/23 aerosol inhaler (Ventolin HFA) atorvastatin 80 mg tablet 80 mg PO BEDTIME 06/04/23 07/09/23 aspirin 81 mg tablet,delayed 81 mg PO DAILY 06/17/23 07/10/23 release insulin lispro 100 unit/mL 10 unit subcut BID@0800,1200 06/17/23 07/09/23 subcutaneous pen tamsulosin 0.4 mg capsule 0.4 mg PO BEDTIME 06/17/23 07/09/23 metformin 1,000 mg tablet 1,000 mg PO BIDWM 06/24/23 07/09/23 insulin glargine 100 unit/mL (3 42 unit subcut BEDTIME 07/09/23 07/09/23 mL) subcutaneous pen (Lantus Solostar U-100 Insulin) amoxicillin 875 mg-potassium 1 tab PO BID 07/10/23 07/10/23 clavulanate 125 mg tablet apixaban 5 mg tablet (Eliquis) 10 mg PO BID 07/10/23 carvedilol 25 mg tablet 25 mg PO BID 07/10/23 07/10/23 ipratropium 20 mcg-albuterol 100 1 puff inhalation QID 07/10/23 07/10/23 mcg/actuation mist for inhalation (Combivent Respimat) oxycodone 5 mg tablet 5 mg PO Q4H PRN pain 07/10/23 07/10/23 sulfamethoxazole 800 1 tab PO BID 07/10/23 07/10/23 mg-trimethoprim 160 mg tablet Previous Rx's Medication Instructions Recorded furosemide 20 mg tablet 60 mg (3 x 20 mg) PO DAILY #90 tabs 06/19/23 lisinopril 10 mg tablet 10 mg PO DAILY #30 tabs 06/19/23 cefuroxime axetil 500 mg tablet 500 mg PO BID 7 days #14 tabs 07/10/23 Allergies Allergy/AdvReac Type Severity Reaction Status Date / Time No Known Allergies Allergy Verified 04/27/23 14:10 Review of Systems Review of Systems: Constitutional : No Weight loss, No Fever, No Chills, No Fatigue, No Malaise ENT/Mouth : No sore throat, No Rhinorrhea Eyes: No Eye Pain, No Swelling, No Redness Cardiovascular : No Chest Pain, No SOB, No Dyspnea on Exertion, No Orthopnea, No Edema, No Palpitations Respiratory : No Cough, No Sputum, No Wheezing Gastrointestinal : No Nausea, No Vomiting, No Diarrhea, No Constipation, No abdominal Pain, No Hematochezia, No Melena Genitourinary : No Dysuria, No Urinary Frequency, No Hematuria, Musculoskeletal : No joint pain, No Myalgias, No Joint Swelling, + leg pain Skin : No Skin Lesions, No rash Neuro : No Weakness, No Numbness, No Dizziness, No Headache Psych : No Anxiety/Panic, No Depression All other systems reviewed and are negative Yes all other systems are reviewed and are negative [facility] Past Medical History Attestation statement: The following information was validated with the patient. Source: old records reviewed and nursing notes reviewed Onset Date is defined in the Problem List Problems that require an onset date and time if occurred within 24 hrs of arrival to the ED Aortic Dissection and Rupture; Neurologic impairment; Cardiopulmonary Arrest; Endotracheal Intubation; Insertion or Replacement of Mechanical Circulatory Assist Device Medical History Chronic leg pain Diabetic ulcer of left lower leg PVD (peripheral vascular disease) Type 2 diabetes mellitus PAD (peripheral artery disease) Right above-knee amputee History of right above knee amputation Infection of amputation site of lower extremity BKA stump complication Below-knee amputation of right lower extremity BPH (benign prostatic hyperplasia) Cardiomyopathy CAD (coronary artery disease) History of peripheral vascular disease Coronary artery disease Cardiomyopathy Essential hypertension Type 2 diabetes mellitus with unspecified complications Abscess, perineum Asthma High cholesterol HTN (hypertension) Diabetes Surgical History History of surgical removal of pilonidal cyst Hx of hand surgery Hx of hand surgery History of cardiac cath S/P angiogram of extremity Hx of varicose vein stripping Family History Family History Father No problems noted. Mother Diabetes HTN (hypertension) Sister No problems noted. Sister Diabetes HTN (hypertension) Sister No problems noted. Social History Social History Household Members: None Household Members Other:: SELF Housing: Apartment Housing Other:: elderly housing Are you a primary emergency care attendant to a significant other at home: No Do you presently have visiting nurse or other home services: Yes (final inspector paper's) Alcohol intake: never Comment: Refused bed and chair alarm. Patient Tobacco Use Status: Current everyday Tobacco user Tobacco use type: Cigarette Cigarette Packs Per Day: 0.5 Cigarettes Per Day: 2 Years Smoked: 15+ Smoked in Last 30 Days: Yes Second Hand Smoke Exposure: No Use of substances other than those prescribed or required for medical reasons: No Advance Directives: Yes Advance Directives on File: Yes Advance Directives Date on File: 12/10/20 service: No Current occupational status: disabled Physical Exam ED Vital Signs: Vital Signs - 24 hr 07/09/23 18:44 07/09/23 21:24 07/09/23 23:22 Temperature 100.0 F Pulse Rate 85 82 75 Respiratory Rate 18 16 14 Blood Pressure 119/57 L 116/58 L 121/67 Pulse Oximetry 100 98 100 Oxygen Delivery Method Room Air Room Air Room Air 07/09/23 23:22 07/10/23 02:02 07/10/23 07:10 Temperature 98.4 F 97.6 F Pulse Rate 78 76 Respiratory Rate 14 12 16 Blood Pressure 119/63 129/64 Pulse Oximetry 98 100 Oxygen Delivery Method Room Air Room Air 07/10/23 14:10 07/10/23 14:30 Temperature 97.6 F Pulse Rate 66 66 Respiratory Rate 18 Blood Pressure 99/60 99/60 Pulse Oximetry 100 100 Oxygen Delivery Method Room Air BMI result Body Mass Index 30.7 vss Appearance: Alert.? Oriented X3.? No acute distress.? Head: Normocephalic, atraumatic, no step-offs or deformities Eyes: Pupils equal, round and reactive to light.? ENT: Pharynx normal.? Neck: Normal inspection.? Neck supple.? CVS: Normal heart rate and rhythm.? Pulses normal.? Respiratory: No respiratory distress.? Breath sounds normal.? Abdomen: Soft and nontender.? Skin: Skin warm and dry.? Normal skin color.? Normal skin turgor.? Extremities: Global weakness. No palpable pulses in left lower extremity, only able to palpate a left femoral pulse, unable to palpate popliteal, dorsalis pedis, anterior tibialis and posterior tibialis pulses, he is noted to have 2+ nonpitting edema to left lower extremity. Left lower extremity is cold, slightly discolored with a purplish hue. Diminished sensation to left lower extremity. Overlying ulcer to the anterior left dennis this is a chronic ulcer. Nonhealing. He has a BKA to the right lower extremity. Back: No midline tenderness, no C-spine tenderness, full range of motion, no CVA tenderness bilaterally Neuro: Oriented X 3.? No motor deficit.? No sensory deficit. CN 2-12 intact Course Reevaluation(s) Reevaluation #1: CBC with leukocytosis appears to be around patient's baseline, also noted to have a normocytic anemia baseline. Chemistry was sodium of 131 will give fluids, patient's lactic acid is elevated at 3.1 repeat lactic acid 3.2 this is likely type to lactic acidosis from metformin. I do not suspect sepsis. Initial troponin 51.3 repeat troponin at the 3 hour camelia. Venous scan no DVT demonstrated in left lower extremity arterial scan pending. Troponin pending. I did discuss this case with vascular who tells me that patient is very non med compliant and keeps his leg down instead of elevating it in his leg it is very swollen, nothing to be done on a vascular perspective at this time will reach back out if arterial scan is positive. Sign out to Brenden STACY Time: 16:10 Reevaluation #2: Patient received in sign-out at change in shift pending arterial scan and repeat troch. The patient's repeat troponin scan was flat. The patient has not any chest pain. He continues to complain of left leg pain. I did give a dose of morphine and Zofran. The patient's arterial scan is essentially unchanged when compared to his CT angiography with runoff from June 30. I discussed with Dr. Evangelista again after the arterial scan resulted and he continues to state that there is no indication for emergent vascular treatment at this time. The patient states that he cannot be discharged due to the amount of pain he is having. Will consider physical therapy consultation with case management if the patient is open to it. We are still awaiting a urine sample as the patient's urine is very dark, cloudy. He spiked a temperature of 100.0?. This was treated with acetaminophen. On re-evaluation the leg wound, it is draining clear liquid but does not appear to be acutely infected. Time: 20:38 Reevaluation #3: Patient's urine has both blood and protein urea in it. It appears he may have a mild UTI, will treat with cefuroxime. This should also cover any skin infections over his leg does not appear acutely infected. I discussed the patient that he does not meet criteria for admission. The patient states that he does not feel safe going home as he lives in the 7th floor. He will stay for physical therapy and social service technician consultation in the morning. Additional Reevaluation(s): Patient was seen by Case Management, he is refusing rehab. 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 Patient already on oxycodone which he has at home. Patient is agreeable to go home. He is feeling well enough to return home. Sent cefuroxime to patient's pharmacy for urinary tract infection. Given return precautions. Patient understands and agrees with plan. Patient stable for discharge. Medications Administered Generic Name Dose Route Start Last Admin Trade Name Freq PRN Reason Stop Dose Admin Albuterol/Ipratropium 3 ml 07/10/23 17:00 07/10/23 16:07 Albuterol/Iprat 2.5/0.5mg 3 Ml Ampul.Neb INHALE Not Given RQID KARI Furosemide 60 mg 07/10/23 09:00 07/10/23 08:19 Furosemide 20 Mg Tablet PO 60 mg DAILY [facility] Administration Protocol Insulin Human Lispro 10 unit 07/10/23 08:00 07/10/23 12:15 Insulin Lispro 100 Unit/Ml 3 Ml Vial SUBCUT 10 unit BID@0800,1200 [facility] Administration Lisinopril 10 mg 07/10/23 09:00 07/10/23 08:22 Lisinopril 10 Mg Tablet PO 10 mg DAILY [facility] Administration Protocol Metformin HCl 1,000 mg 07/10/23 08:00 07/10/23 16:15 Metformin Hcl 1,000 Mg Tablet PO 1,000 mg BIDWM [facility] Administration Omeprazole 20 mg 07/10/23 06:30 07/10/23 06:29 Omeprazole 20 Mg Capsule.Dr PO 20 mg DAILY@0630 [facility] Administration Oxycodone HCl 5 mg 07/10/23 01:41 07/10/23 10:53 Oxycodone Hcl Immed Release 5 Mg Tablet PO 5 mg Q6H PRN Administration Pain, Severe (Pain Scale 7-10) Discontinued Medications Generic Name Dose Route Start Last Admin Trade Name Freq PRN Reason Stop Dose Admin Acetaminophen 650 mg 07/09/23 18:54 07/09/23 19:01 Acetaminophen 325 Mg Tablet PO 07/09/23 18:55 650 mg ONCE ONE Administration Acetaminophen 650 mg 07/10/23 08:13 07/10/23 08:22 Acetaminophen 325 Mg Tablet PO 07/10/23 08:14 650 mg ONCE ONE Administration Carvedilol 6.25 mg 07/10/23 09:00 07/10/23 08:21 Carvedilol 6.25 Mg Tablet PO 6.25 mg BID [facility] Administration Protocol Cefuroxime Axetil 500 mg 07/09/23 22:51 07/09/23 23:22 Cefuroxime Axetil 500 Mg Tablet PO 07/09/23 22:52 500 mg ONCE ONE Administration Sodium Chloride 1,000 mls @ 999 mls/hr 07/09/23 18:45 07/09/23 20:00 Ns IV 07/09/23 19:45 Infused .Q1H1M KARI Infusion Morphine Sulfate 4 mg 07/09/23 17:42 07/09/23 17:52 Morphine Sulfate 4 Mg/Ml Cartridge IVPUSH 07/09/23 17:43 4 mg ONCE ONE Administration Protocol Morphine Sulfate 4 mg 07/09/23 22:47 07/09/23 23:22 Morphine Sulfate 4 Mg/Ml Cartridge IVPUSH 07/09/23 22:48 4 mg ONCE ONE Administration Protocol Ondansetron HCl 4 mg 07/09/23 17:42 07/09/23 17:52 Ondansetron Hcl 4 Mg/2 Ml Vial IVPUSH 07/09/23 17:43 4 mg ONCE ONE Administration Medical Decision Making Medical Decision Making [facility] Narrative: 62-year-old male presents with pain to left lower extremity that started this morning Physical exam significant for Global weakness. No palpable pulses in left lower extremity, only able to palpate a left femoral pulse, unable to palpate popliteal, dorsalis pedis, anterior tibialis and posterior tibialis pulses, he is noted to have 2+ nonpitting edema to left lower extremity. Left lower extremity is cold, slightly discolored with a purplish hue. Diminished sensation to left lower extremity. Overlying ulcer to the anterior left dennis this is a chronic ulcer. Nonhealing. He has a BKA to the right lower extremity. Concerns for threat to Silva arterial occlusion versus venous occlusion. Other differentials include pain from nonhealing wound. No signs of cellulitis. Peripheral artery disease should also be considered. Plan at this time arterial and venous scans, labs, EKG and troponin Differential Diagnosis Differential Diagnoses: The differential diagnosis associated with the presentation includes Concerns for threat to Silva arterial occlusion versus venous occlusion. Other differentials include pain from nonhealing wound. No signs of cellulitis. Peripheral artery disease should also be considered. Admission/Observation Consideration of admission/observation: Escalation of care including admission/observation considered Consult Healthcare Provider Management of the patient was discussed with: Aged Or Disabled Carer Lab Data [facility] Lab Attestation statement: I reviewed the patient's lab results. 07/09/23 13:14 07/09/23 15:30 Labs: Lab Results 07/09/23 07/09/23 07/09/23 Range/Units 13:14 15:30 18:00 WBC 10.9 H (4.8-10.8) X10*3/uL RBC 4.49 L (4.60-5.80) X10*6/uL Hgb 11.4 L (14.0-18.0) g/dl Hct 36.6 L (42.0-52.0) % MCV 81.5 (80.0-98.0) fL MCH 25.4 L (27.0-33.0) pg MCHC 31.1 (31.0-36.0) g/dl RDW 18.5 H (11.0-16.0) % Plt Count 353 (160-400) X10*3/uL MPV 9.8 (9.4-12.4) fL Immature Gran % (Auto) 0.7 H (0.0-0.4) % Neut % (Auto) 84.1 H (45-73) % Lymph % (Auto) 5.4 L (20-40) % [place] % (Auto) 8.5 (2-11) % Eos % (Auto) 1.1 (0-4) % Baso % (Auto) 0.2 (0-2) % Lymph # (Auto) 0.6 L (1.2-4.9) X10*3/uL [place] # (Auto) 0.9 (0.1-1.2) X10*3/uL Eos # (Auto) 0.1 (0.0-0.4) X10*3/uL Baso # (Auto) 0.0 (0.0-0.2) X10*3/uL Abs Immat Gran (auto) 0.08 H (0.00-0.03) X10*3/uL Absolute Neuts (auto) 9.2 H (2.0-8.3) x10*3/uL Absolute Nucleated RBC 0.000 (0.0-0.012) X10*3/uL Nucleated RBC % (auto) 0.0 (0.0-0.2) /100WBC PT 24.2 H D (11.1-13.3) SEC INR 2.0 H (0.9-1.1) Sodium 131 L (135-145) mmol/L Potassium 4.7 D (3.3-5.1) mmol/L Chloride 101 (96-108) mmol/L Carbon Dioxide 22 (22-29) mmol/L Anion Gap 13 (12-20) BUN 21 H (9-16) mg/dL Creatinine 0.86 (0.5-1.4) mg/dL Estim Creat Clear Calc 89.2 Estimated GFR > 60 POC Glucose (60-115) mg/dL Random Glucose 206 H (60-115) mg/dL Lactic Acid 3.1 H* (0.5-2.0) mmol/L Lactic Acid F/U @ 2Hr 3.2 H* (0.5-2.0) mmol/L Lactic Acid F/U @ 4Hr 3.6 H* (0.5-2.0) mmol/L Calcium 8.5 (8.4-10.2) mg/dL Magnesium 2.1 (1.6-2.6) mg/dL Total Bilirubin 0.9 (0.0-1.0) mg/dL AST 44 H (5-37) U/L ALT 42 H (0-40) U/L Alkaline Phosphatase 693 H (39-117) U/L Troponin I High Sens 51.3 H D 52.9 H (<3.5-35.0) ng/L Total Protein 6.9 (6.5-8.0) g/dL Albumin 2.9 L (3.5-5.0) g/dL Urine Color Urine Appearance Urine pH (5.0-9.0) Ur Specific [place] (1.005-1.025) Urine Protein (Neg-Trace) mg/dL Urine Glucose (UA) (Negative) mg/dL Urine Ketones (Negative) mg/dL Urine Blood (Negative) Urine Nitrite (Negative) Ur Leukocyte Esterase (Negative) Urine RBC (0-2) /HPF Urine WBC (0-5) /HPF Ur Squamous Epith Cells (0-2) /HPF Urine Bacteria (None Seen) Hyaline Casts (0-2) /LPF Influenza Type A (PCR) NEGATIVE (Negative) Influenza Type B (PCR) NEGATIVE (Negative) RSV RNA Qual (PCR) NEGATIVE (Negative) SARS-CoV-2 RNA (RT-PCR) NEGATIVE (Negative) 07/09/23 07/09/23 07/10/23 Range/Units 18:47 21:30 07:28 WBC (4.8-10.8) X10*3/uL RBC (4.60-5.80) X10*6/uL Hgb (14.0-18.0) g/dl Hct (42.0-52.0) % MCV (80.0-98.0) fL MCH (27.0-33.0) pg MCHC (31.0-36.0) g/dl RDW (11.0-16.0) % Plt Count (160-400) X10*3/uL MPV (9.4-12.4) fL Immature Gran % (Auto) (0.0-0.4) % Neut % (Auto) (45-73) % Lymph % (Auto) (20-40) % [place] % (Auto) (2-11) % Eos % (Auto) (0-4) % Baso % (Auto) (0-2) % Lymph # (Auto) (1.2-4.9) X10*3/uL [place] # (Auto) (0.1-1.2) X10*3/uL Eos # (Auto) (0.0-0.4) X10*3/uL Baso # (Auto) (0.0-0.2) X10*3/uL Abs Immat Gran (auto) (0.00-0.03) X10*3/uL Absolute Neuts (auto) (2.0-8.3) x10*3/uL Absolute Nucleated RBC (0.0-0.012) X10*3/uL Nucleated RBC % (auto) (0.0-0.2) /100WBC PT (11.1-13.3) SEC INR (0.9-1.1) Sodium (135-145) mmol/L Potassium (3.3-5.1) mmol/L Chloride (96-108) mmol/L Carbon Dioxide (22-29) mmol/L Anion Gap (12-20) BUN (9-16) mg/dL Creatinine (0.5-1.4) mg/dL Estim Creat Clear Calc Estimated GFR POC Glucose 190 H 132 H (60-115) mg/dL Random Glucose (60-115) mg/dL Lactic Acid (0.5-2.0) mmol/L Lactic Acid F/U @ 2Hr (0.5-2.0) mmol/L Lactic Acid F/U @ 4Hr (0.5-2.0) mmol/L Calcium (8.4-10.2) mg/dL Magnesium (1.6-2.6) mg/dL Total Bilirubin (0.0-1.0) mg/dL AST (5-37) U/L ALT (0-40) U/L Alkaline Phosphatase (39-117) U/L Troponin I High Sens (<3.5-35.0) ng/L Total Protein (6.5-8.0) g/dL Albumin (3.5-5.0) g/dL Urine Color RED Urine Appearance Turbid Urine pH 6.5 (5.0-9.0) Ur Specific [place] 1.020 (1.005-1.025) Urine Protein 300 (3+) H (Neg-Trace) mg/dL Urine Glucose (UA) 100 H (Negative) mg/dL Urine Ketones Trace (Negative) mg/dL Urine Blood Large (3+) H (Negative) Urine Nitrite Positive H (Negative) Ur Leukocyte Esterase Trace H (Negative) Urine RBC >20 H (0-2) /HPF Urine WBC 11-20 (0-5) /HPF Ur Squamous Epith Cells 6-10 (0-2) /HPF Urine Bacteria Trace (None Seen) Hyaline Casts 0-2 (0-2) /LPF Influenza Type A (PCR) (Negative) Influenza Type B (PCR) (Negative) RSV RNA Qual (PCR) (Negative) SARS-CoV-2 RNA (RT-PCR) (Negative) 07/10/23 07/10/23 Range/Units 09:32 11:44 WBC (4.8-10.8) X10*3/uL RBC (4.60-5.80) X10*6/uL Hgb (14.0-18.0) g/dl Hct (42.0-52.0) % MCV (80.0-98.0) fL MCH (27.0-33.0) pg MCHC (31.0-36.0) g/dl RDW (11.0-16.0) % Plt Count (160-400) X10*3/uL MPV (9.4-12.4) fL Immature Gran % (Auto) (0.0-0.4) % Neut % (Auto) (45-73) % Lymph % (Auto) (20-40) % [place] % (Auto) (2-11) % Eos % (Auto) (0-4) % Baso % (Auto) (0-2) % Lymph # (Auto) (1.2-4.9) X10*3/uL [place] # (Auto) (0.1-1.2) X10*3/uL Eos # (Auto) (0.0-0.4) X10*3/uL Baso # (Auto) (0.0-0.2) X10*3/uL Abs Immat Gran (auto) (0.00-0.03) X10*3/uL Absolute Neuts (auto) (2.0-8.3) x10*3/uL Absolute Nucleated RBC (0.0-0.012) X10*3/uL Nucleated RBC % (auto) (0.0-0.2) /100WBC PT (11.1-13.3) SEC INR (0.9-1.1) Sodium (135-145) mmol/L Potassium (3.3-5.1) mmol/L Chloride (96-108) mmol/L Carbon Dioxide (22-29) mmol/L Anion Gap (12-20) BUN (9-16) mg/dL Creatinine (0.5-1.4) mg/dL Estim Creat Clear Calc Estimated GFR POC Glucose 168 H 163 H (60-115) mg/dL Random Glucose (60-115) mg/dL Lactic Acid (0.5-2.0) mmol/L Lactic Acid F/U @ 2Hr (0.5-2.0) mmol/L Lactic Acid F/U @ 4Hr (0.5-2.0) mmol/L Calcium (8.4-10.2) mg/dL Magnesium (1.6-2.6) mg/dL Total Bilirubin (0.0-1.0) mg/dL AST (5-37) U/L ALT (0-40) U/L Alkaline Phosphatase (39-117) U/L Troponin I High Sens (<3.5-35.0) ng/L Total Protein (6.5-8.0) g/dL Albumin (3.5-5.0) g/dL Urine Color Urine Appearance Urine pH (5.0-9.0) Ur Specific [place] (1.005-1.025) Urine Protein (Neg-Trace) mg/dL Urine Glucose (UA) (Negative) mg/dL Urine Ketones (Negative) mg/dL Urine Blood (Negative) Urine Nitrite (Negative) Ur Leukocyte Esterase (Negative) Urine RBC (0-2) /HPF Urine WBC (0-5) /HPF Ur Squamous Epith Cells (0-2) /HPF Urine Bacteria (None Seen) Hyaline Casts (0-2) /LPF Influenza Type A (PCR) (Negative) Influenza Type B (PCR) (Negative) RSV RNA Qual (PCR) (Negative) SARS-CoV-2 RNA (RT-PCR) (Negative) Independent Interpretation I performed an independent interpretation of an: EKG (Ventricular rate of 85 LA normal, QRS normal, QT/QTC normal. Normal sinus rhythm with left atrial enlargement left axis deviation and left bundle-branch block. Nonischemic.) and Ultrasound (DVT negative) Radiology Impression Discussion of test interpretation with radiology: I have reviewed the radiologist's reading. Critical Care Time Critical Care Time Critical Care Time: Yes Total Critical Care Time: 35 Attestation: I attest to this time spent taking care of the patient, obtaining history, physical, reviewing labs, imaging, speaking to my attending, speaking to specialist. Discharge Plan Discharge Clinical Impression: Acute pain of left lower extremity, Acute UTI, Hematuria Patient Disposition: Still a Patient Additional Instructions: The pain her leg it is most likely related to blockages in arteries of your leg. These have not changed since your CT scan in June Your vascular specialist recommend seeing him in the office but no emergent changes Take the antibiotic as needed for urinary tract infection Follow-up with your primary doctor Return for new or worsening symptoms Prescriptions: New cefuroxime axetil 500 mg tablet 500 mg PO BID 7 Days Qty: 14 0RF No Action atorvastatin 80 mg tablet 80 mg PO BEDTIME albuterol sulfate 2.5 mg /3 mL (0.083 %) solution for nebulization 2.5 mg inhalation Q4H PRN (Reason: Wheezing) albuterol sulfate [Ventolin HFA] 90 mcg/actuation HFA aerosol inhaler 2 puff INHALATION Q4H PRN (Reason: wheezing) insulin glargine [Lantus Solostar U-100 Insulin] 100 unit/mL (3 mL) insulin pen 42 unit subcut BEDTIME sulfamethoxazole-trimethoprim 800-160 mg tablet 1 tab PO BID amoxicillin-pot clavulanate 875-125 mg tablet 1 tab PO BID oxycodone 5 mg tablet 5 mg PO Q4H PRN (Reason: pain) Eliquis 5 mg tablet 10 mg PO BID Rx Instructions: START 5 MG BID ON 07/11/23 carvedilol 25 mg tablet 25 mg PO BID Combivent Respimat 20-100 mcg/actuation mist 1 puff INHALATION QID aspirin 81 mg tablet,delayed release (DR/EC) 81 mg PO DAILY tamsulosin 0.4 mg capsule 0.4 mg PO BEDTIME insulin lispro 100 unit/mL insulin pen 10 unit subcut BID@0800,1200 Rx Instructions: TWICE A DAY AT BREAKFAST AND LUNCH lisinopril 10 mg Tablet 10 mg PO DAILY Qty: 30 0RF Protocol: Hold for SBP< HOLD for SBP < : 90 furosemide 20 mg tablet 60 mg PO DAILY Qty: 90 0RF metformin 1,000 mg Tablet 1,000 mg PO BIDWM Referrals: [facility] [Outside] Justin Dia MD [Physician] - (Left lower extremity arterial occlusions chronic)
[2023-07-09 12:49] VITALS: BP 110/60; BP 136/59; PULSE 71; PULSE 76; RESP 18; TEMP 37.2; O2SAT 100; BMI 30.7
[2023-07-09 15:44] VITALS: BP 120/43; PULSE 80; RESP 25; TEMP 37.4; O2SAT 100
[2023-07-09 15:45] LABS: Anion Gap 13 (12-20)
[2023-07-09 15:50] LABS: Alanine Aminotransferase 42 U/L (0-40); Albumin Level 2.9 g/dL (3.5-5.0); Alkaline Phosphatase 693 U/L (39-117); Aspartate Amino Transferase 44 U/L (5-37); Bilirubin Total 0.9 mg/dL (0.0-1.0); Blood Urea Nitrogen 21 mg/dL (9-16); Calcium 8.5 mg/dL (8.4-10.2); Carbon Dioxide 22 mmol/L (22-29); Chloride 101 mmol/L (96-108); Creatinine Clr Calc Pharmacy 89.2; Estimated Glomerular Filt Rate > 60; Glucose Random 206 mg/dL (60-115); Magnesium 2.1 mg/dL (1.6-2.6); Potassium 4.7 mmol/L (3.3-5.1); Sodium 131 mmol/L (135-145); Total Protein 6.9 g/dL (6.5-8.0)
--- NOTE | 2023-07-09 16:39 | MHC.EDTECH ---
Patient refused for labs to be drawn.
[2023-07-09 18:44] VITALS: BP 119/57; PULSE 85; RESP 18; TEMP 37.8; O2SAT 100
[2023-07-09 21:24] VITALS: BP 116/58; PULSE 82; RESP 16; O2SAT 98
--- NOTE | 2023-07-09 21:32 | PC.NURSE ---
This junior copywriter assumed care of this Pt at 1900. Pt A&Ox3, reports increasing pain to LLL. IV fluids running per MAR, Pt reminded to keep arm straight for Iv fluids. Pt has a BKA to right leg. LLL swelling with open wounds, cold to touch, pedal pulse not palpable. VSS.
--- NOTE | 2023-07-09 21:48 | PC.NURSE ---
Pt urine noted to be red, sample collected and sent to lab. Pt reports frequency and pain with urination.
--- NOTE | 2023-07-09 23:12 | MHC.EDTECH ---
This tech asked the patient if they were okay or needed anything. The patient asked this tech to open a packet of Motrin for him for his pain. This tech denied the request. RN aware
[2023-07-09 23:22] VITALS: BP 121/67; PULSE 75; RESP 14; O2SAT 100
--- NOTE | 2023-07-09 23:34 | PC.NURSE ---
Med rec completed. Pt able to verbalize home meds.
--- NOTE | 2023-07-10 01:59 | PC.NURSE ---
Pt O2 noted to be in the mid 80's on 3 LPM O2 via NC. O2 was raised to 5 LPM and sat got up to 90%. Pt stated he feels congested and when I asked him to take a deep breath, he started to cough up mucous. aware.
[2023-07-10 02:02] VITALS: BP 119/63; PULSE 78; RESP 12; TEMP 36.9; O2SAT 98
--- NOTE | 2023-07-10 04:58 | MHC.EDTECH ---
Pt found incontinent of urine. Pt cleaned, linens changed. Pt changed over into hospital gown. Resting comfortably.
[2023-07-10 07:10] VITALS: BP 129/64; PULSE 76; RESP 16; TEMP 36.4; O2SAT 100
--- NOTE | 2023-07-10 09:53 | PC.NURSE ---
given 5 units instead of 10 per bandar collier as pt eating only diet pudding x1 for breakfast. declined breakfast earlier so had held per pa nando until now
--- NOTE | 2023-07-10 10:28 | PHA.MEDREC ---
Pharmacy Consult ? Medication Reconciliation Pharmacy has reviewed the medication reconciliation done by RN. Found multiple discrepancies. Went to talk to patient, was able to confirm patient is on aspirin which was left unconfirmed by RN. Also confirmed with patient he is on augmentin and bactrim from [facility] as well as oxycodone. However when I brought up [facility] to the patient he seemed to have gotten upset. Tried to see if patient remembers [facility] giving them elquis as patient has claim history of a treatment dosing however he could not recall and quickly seemed annoyed. Will discuss with provider as to next steps
--- NOTE | 2023-07-10 10:54 | PC.NURSE ---
even respirationsgiven oxycodone for leg pain. wounds wrapped after cleansed w NS well. nonadherent dressing applied under gauze wrap. no distress
--- NOTE | 2023-07-10 12:02 | PC.NURSE ---
this RN resumed care of pt at this time. pt moved from main ED to overflow at this time. pt repositioned to comfort watching tv. pt c/o 04/13 LLE pain despite medication administration - requesting morphine. NIEVES Bliss notified and aware of pt's request at this time. POC obtained by tech. diabetic diet tray ordered at this time. no sob/wob noted. respirations even and unlabored. bed alarm turned on for safety precautions. call dominguez placed within reach.
--- NOTE | 2023-07-10 12:17 | PC.NURSE ---
pt received lunch tray. medication administered per provider order.
--- NOTE | 2023-07-10 14:08 | PC.NURSE ---
PT bedside assessing pt at this time.
[2023-07-10 14:10] VITALS: BP 99/60; PULSE 66; RESP 18; TEMP 36.4; O2SAT 100
[2023-07-10 14:30] VITALS: BP 99/60; PULSE 66; O2SAT 100
--- NOTE | 2023-07-10 15:30 | PC.NURSE ---
pt speaking w/ CM at this time.
--- NOTE | 2023-07-10 15:50 | MHC.CM.ED ---
Patient currently in ER overflow unit. Met with patient and switchboard operator helper. Patient is declining STR. He states he has been before and it doesn't help. Patient has a [employer] CONS[employer]ANT and is active with [facility]. Patient made aware he would be d/c'd home. Patient requesting to stay overnight. T/W explained patient would be discharged today. Patient complaining of pain and requesting Morphine. T/W asked Ruthy PICKETT to see patient. Ruthy will see patient. At this time it is anticipated patient will return home with services already in place. Continue to monitor for d/c needs.
--- NOTE | 2023-07-10 16:16 | PC.NURSE ---
medication administered per provider order. pt requesting more pain medication at this time. pt notified that prn medication cannot be administered at this time. pt upset. pt educated on timing for prn medication. will administer when able.
--- NOTE | 2023-07-10 16:28 | PC.NURSE ---
pt speaking w/ ED provider at this time.
--- NOTE | 2023-07-10 17:12 | PC.NURSE ---
pt c/o 10/10 lower extremity pain. prn medication administered per provider order. pt awaiting transportation services home at this time. call dominguez placed within reach.
--- NOTE | 2023-07-10 19:29 | PC.NURSE ---
this rn assumed care of pt. pt resting in bed at this time watching tb, pt awaiting EMS transport home.
[2023-07-10 19:35] VITALS: BP 119/71; PULSE 80; RESP 20; TEMP 36.7; O2SAT 98
--- NOTE | 2023-07-10 20:06 | PC.NURSE ---
ems at bedside to transport pt home, pt and ems understands d.c instructions. pt sand and pivot onto ems stretcher.
== END 2023-07-10 20:07 | disposition still patient (30) ==
PROVIDERS: Physician Assistant; Emergency Provider Student in an Organized Health Care Education/Training Program; PCP Family Medicine
DX: M79.605 Pain in left leg (principal); N39.0 Urinary tract infection, site not specified; R31.9 Hematuria, unspecified; R60.0 Localized edema; R11.2 Nausea with vomiting, unspecified; R07.89 Other chest pain; R26.2 Difficulty in walking, not elsewhere classified; R06.02 Shortness of breath; Z20.822 Contact with and (suspected) exposure to COVID-19; Z20.828 Contact with and (suspected) exposure to other viral communicable diseases; Z79.899 Other long term (current) drug therapy
CPT/HCPCS: 0241U; 36415; 80053; 81001; 82947; 83605; 83735; 84484; 85025; 85610; 87040; 87086; 93005; 93926; 93971; 96361; 96374; 96375; 96376; 97163; 99285; J2270; J2405

== ENCOUNTER → 2023-07-09 16:11 | Outpatient (BNV) | payer MEDICAID, SELFPAY | PROVIDERS: Emergency Provider Student in an Organized Health Care Education/Training Program; PCP Family Medicine; Visit Provider Internal Medicine Cardiovascular Disease | DX: R94.31 Abnormal electrocardiogram [ECG] [EKG] (principal) | CPT/HCPCS: 93010 ==

== ENCOUNTER 2023-07-12 00:15 | Inpatient (IN) | payer MEDICAID, SELFPAY ==
[2023-07-12] VITALS (27 sets, daily range): BP systolic 98–168; BP diastolic 44–126; PULSE 74–111; RESP 16–22; TEMP 36–38.1; O2SAT 95–100; BMI 33.9
--- NOTE | ~2023-07-12 | US_ITS ---
EXAMINATION: US VENOUS ULTRASOUND WITH DOPPLER LOWER EXTREMITY, LEFT CLINICAL INFORMATION: Left leg pain and swelling. COMPARISON: None available. TECHNIQUE: Ultrasound of the deep veins is performed from the hip to the calf with compression sonography and color and pulse Doppler assessment. Spectral analysis with color-flow imaging is performed. FINDINGS: There is normal venous compression and respiratory variation and augmented flow. The visualized common femoral vein, superficial femoral vein, profunda femoral vein, popliteal vein, and the trifurcation region shows no evidence of deep venous thrombosis. The calf veins are limited in evaluation. There is small Farias's cyst seen measuring 4.5 x 1.3 x 3.0 cm. If the patient's symptoms persist, followup ultrasound in 5 days 7 days might be of value to exclude proximal propagation from a non-visualized calf vein. US/US venous duplex LE IMPRESSION: 1. No DVT demonstrated in the left lower extremity. Limited evaluation of calf vein. 2. Small Farias's cyst.
--- NOTE | 2023-07-12 01:00 | MHC.EDTECH ---
Patient came in by ambulance,changed into hospital attire,placed on the cardiac exercise specialist,rectal temp of 100.5 RN at bedside. placed a three way catheter,675MLS of fruit punch in color with some small clots,output 650MLS. Labs and blood cultures obtained and sen to lab.
--- NOTE | 2023-07-12 01:24 | MHC.EDTECH ---
Patient's BP is low 98/44 RN is aware .
--- NOTE | 2023-07-12 01:30 | ED.MALEGU ---
HPI - Male Genitourinary General Chief complaint: Urogenital-Male Stated complaint: urinating blood History of Present Illness HPI Narrative: The patient is a 62-year-old male was seen yesterday for cellulitis / wound to the left leg. Patient just the emergency department yesterday. Had a question UTI as well. Was started on cefuroxime. Had a Doppler of the leg which showed good arterial blood flow. Patient did not want to be sent to rehab. Went home with additional help. Came back today because he was unable to urinate. Follow up for low-grade fever. Claims that there was bloody urine. Patient from home. There is no coughing congestion upper respiratory symptoms. No diaphoresis. Related Data Home Medications Medication Instructions Recorded Confirmed albuterol sulfate 2.5 mg/3 mL 2.5 mg inhalation Q4H PRN Wheezing 06/04/23 07/09/23 (0.083 %) solution for nebulization albuterol sulfate 90 mcg/actuation 2 puff inhalation Q4H PRN wheezing 06/04/23 07/09/23 aerosol inhaler (Ventolin HFA) atorvastatin 80 mg tablet 80 mg PO BEDTIME 06/04/23 07/09/23 aspirin 81 mg tablet,delayed 81 mg PO DAILY 06/17/23 07/10/23 release insulin lispro 100 unit/mL 10 unit subcut BID@0800,1200 06/17/23 07/09/23 subcutaneous pen tamsulosin 0.4 mg capsule 0.4 mg PO BEDTIME 06/17/23 07/09/23 metformin 1,000 mg tablet 1,000 mg PO BIDWM 06/24/23 07/09/23 insulin glargine 100 unit/mL (3 42 unit subcut BEDTIME 07/09/23 07/09/23 mL) subcutaneous pen (Lantus Solostar U-100 Insulin) amoxicillin 875 mg-potassium 1 tab PO BID 07/10/23 07/10/23 clavulanate 125 mg tablet apixaban 5 mg tablet (Eliquis) 10 mg PO BID 07/10/23 carvedilol 25 mg tablet 25 mg PO BID 07/10/23 07/10/23 ipratropium 20 mcg-albuterol 100 1 puff inhalation QID 07/10/23 07/10/23 mcg/actuation mist for inhalation (Combivent Respimat) oxycodone 5 mg tablet 5 mg PO Q4H PRN pain 07/10/23 07/10/23 sulfamethoxazole 800 1 tab PO BID 07/10/23 07/10/23 mg-trimethoprim 160 mg tablet Previous Rx's Medication Instructions Recorded furosemide 20 mg tablet 60 mg (3 x 20 mg) PO DAILY #90 tabs 06/19/23 lisinopril 10 mg tablet 10 mg PO DAILY #30 tabs 06/19/23 cefuroxime axetil 500 mg tablet 500 mg PO BID 7 days #14 tabs 07/10/23 Allergies Allergy/AdvReac Type Severity Reaction Status Date / Time No Known Allergies Allergy Verified 07/12/23 00:16 Review of Systems Review of Systems: positive abdominal pain unable urinate Yes all other systems are reviewed and are negative PMFSH Past Medical History Onset Date is defined in the Problem List Problems that require an onset date and time if occurred within 24 hrs of arrival to the ED Aortic Dissection and Rupture; Neurologic impairment; Cardiopulmonary Arrest; Endotracheal Intubation; Insertion or Replacement of Mechanical Circulatory Assist Device Medical History Chronic leg pain Diabetic ulcer of left lower leg PVD (peripheral vascular disease) Type 2 diabetes mellitus PAD (peripheral artery disease) Right above-knee amputee History of right above knee amputation Infection of amputation site of lower extremity BKA stump complication Below-knee amputation of right lower extremity BPH (benign prostatic hyperplasia) Cardiomyopathy CAD (coronary artery disease) History of peripheral vascular disease Coronary artery disease Cardiomyopathy Essential hypertension Type 2 diabetes mellitus with unspecified complications Abscess, perineum Asthma High cholesterol HTN (hypertension) Diabetes Surgical History History of surgical removal of pilonidal cyst Hx of hand surgery Hx of hand surgery History of cardiac cath S/P angiogram of extremity Hx of varicose vein stripping Family History Family History Father No problems noted. Mother Diabetes HTN (hypertension) Sister No problems noted. Sister Diabetes HTN (hypertension) Sister No problems noted. 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 Patient Tobacco Use Status: Current everyday Tobacco user Tobacco use type: Cigarette Cigarette Packs Per Day: 0.5 Cigarettes Per Day: 2 Years Smoked: 15+ Second Hand Smoke Exposure: No Advance Directives: Yes Advance Directives Information Provided: Yes Advance Directives on File: No Advance Directives Date on File: 12/10/20 service: No Current occupational status: disabled Physical Exam Vital Signs: Vital Signs: Last Vital Signs Temp 99.5 F 07/12/23 01:38 Pulse 84 07/12/23 01:38 Resp 16 07/12/23 01:38 BP 103/46 L 07/12/23 01:38 Pulse Ox 95 07/12/23 01:38 O2 Del Method Room Air 07/12/23 01:38 BMI result Body Mass Index 33.9 Appearance: Alert. Oriented X3. No acute distress. Eyes: Pupils equal, round and reactive to light. ENT: Pharynx normal. Neck: Normal inspection. Neck supple. No lymph nodes noted. No crepitus CVS: Normal heart rate and rhythm. Pulses normal. Normal S1 and S2 Respiratory: No respiratory distress. Breath sounds normal. No Wheezing. No rales Abdomen: Positive pain to the lower abdomen. Skin: Skin warm and dry. Normal skin color. Normal skin turgor. Extremities: status post right above the knee amputation. The stump appears intact. Warm to touch. No erythema noted. Examination left lower extremity showed an ulcer that has a purulent base at the area near the left distal dennis. Approximately 5 cm x 3 cm in size. There is good distal pulses good sensation. Neuro: Oriented X 3. No motor deficit. No sensory deficit. Moving all extermities. No slurred speech Medications Administered Generic Name Dose Route Start Last Admin Trade Name Freq PRN Reason Stop Dose Admin Sodium Chloride 1,000 mls @ 999 mls/hr 07/12/23 01:15 07/12/23 01:29 Ns IV 07/12/23 02:15 999 mls/hr .Q1H1M KARI Administration Discontinued Medications Generic Name Dose Route Start Last Admin Trade Name Freq PRN Reason Stop Dose Admin Acetaminophen 650 mg 07/12/23 00:54 07/12/23 01:28 Acetaminophen 325 Mg Tablet PO 07/12/23 00:55 650 mg ONCE ONE Administration Ceftriaxone Sodium 1 gm/ 50 mls @ 100 mls/hr 07/12/23 01:11 07/12/23 01:23 Sodium Chloride IV 07/12/23 01:40 100 mls/hr ONCE ONE Administration Lidocaine HCl 10 ml 07/12/23 00:25 07/12/23 01:28 Lidocaine Hcl 2 % Urojet 10 Ml Jel.Pf.Bandar TOPICAL 07/12/23 00:26 10 ml ONCE ONE Administration Medical Decision Making Medical Decision Making [facility] Narrative: Bad this scan showed over 700 cc of urine. I personally placed a [address] way Finnegan is there was bloody urine. His penis was cleaned with Betadine. Subsequently a [address] Finnegan was placed. There was no complication. Balloon was cuffed up to 10 cc. Over 700 cc of urine was drained. Somewhat bloody. Will start a continuous bladder irrigation. Patient's white count was elevated about the same as yesterday consistent with urinary tract infection. Also patient has a likely wound that is chronic in the left leg. Doubt patient has sepsis but lactate was ordered. Patient has elevated lactate 2.9. because he has a history of diabetes and is on metformin. Nevertheless cultures was obtained. Patient was given fluids. Will admit patient for further evaluation as patient now developed a low-grade fever and has urinary tract infection. Previous cultures are reviewed. Currently in stable condition awaiting admission. Differential Diagnosis Differential Diagnoses: The differential diagnosis associated with the presentation includes Cellulitis, urinary tract infection Admission/Observation Consideration of admission/observation: Escalation of care including admission/observation considered patient needs to be admitted this is the 2nd visit to the emergency department he has long history of diabetes Consult Healthcare Provider Management of the patient was discussed with: Hospitalist Lab Data [facility] Lab Attestation statement: I reviewed the patient's lab results. 07/12/23 01:07 07/12/23 01:07 Labs: Lab Results 07/12/23 07/12/23 Range/Units 00:53 01:07 WBC 11.3 H (4.8-10.8) X10*3/uL RBC 4.18 L (4.60-5.80) X10*6/uL Hgb 10.6 L (14.0-18.0) g/dl Hct 34.1 L (42.0-52.0) % MCV 81.6 (80.0-98.0) fL MCH 25.4 L (27.0-33.0) pg MCHC 31.1 (31.0-36.0) g/dl RDW 18.1 H (11.0-16.0) % Plt Count 332 (160-400) X10*3/uL MPV 10.1 (9.4-12.4) fL Immature Gran % (Auto) 0.7 H (0.0-0.4) % Neut % (Auto) 88.4 H (45-73) % Lymph % (Auto) 5.8 L (20-40) % [place] % (Auto) 3.8 (2-11) % Eos % (Auto) 1.1 (0-4) % Baso % (Auto) 0.2 (0-2) % Lymph # (Auto) 0.7 L (1.2-4.9) X10*3/uL [place] # (Auto) 0.4 (0.1-1.2) X10*3/uL Eos # (Auto) 0.1 (0.0-0.4) X10*3/uL Baso # (Auto) 0.0 (0.0-0.2) X10*3/uL Abs Immat Gran (auto) 0.08 H (0.00-0.03) X10*3/uL Absolute Neuts (auto) 10.0 H (2.0-8.3) x10*3/uL Absolute Nucleated RBC 0.000 (0.0-0.012) X10*3/uL Nucleated RBC % (auto) 0.0 (0.0-0.2) /100WBC Lactic Acid 2.9 H* (0.5-2.0) mmol/L Urine Color Red A Urine Appearance Turbid Urine pH 6.0 (5.0-9.0) Ur Specific [place] 1.020 (1.005-1.025) Urine Protein 300 (3+) H (Neg-Trace) mg/dL Urine Glucose (UA) 250 H (Negative) mg/dL Urine Ketones Negative (Negative) mg/dL Urine Blood Large (3+) H (Negative) Urine Nitrite Positive H (Negative) Ur Leukocyte Esterase Moderate (2+) H (Negative) Urine RBC >20 H (0-2) /HPF Urine WBC 21-50 H (0-5) /HPF Ur Squamous Epith Cells 0-2 (0-2) /HPF Urine Bacteria Trace (None Seen) Hyaline Casts 0-2 (0-2) /LPF Independent Historian Clinical information obtained from an independent historian. History obtained from or confirmed by: EMS External Record Review External record reviewed: Inpatient record Chronic Conditions Patient?s care impacted by: Diabetes Discharge Plan Discharge Clinical Impression: Cellulitis, Acute UTI Patient Disposition: Admitted As Inpatient
--- NOTE | 2023-07-12 01:44 | PM.IMHP ---
History of Present Illness Date of Service: 07/12/23 Chief Complaint: Unable to pee This is a 62-year-old male with pertinent history of insulin-dependent type 2 diabetes mellitus, peripheral vascular disease status post right AKA, congestive heart failure with reduced ejection fraction, BPH, mixed hyperlipidemia, gastroesophageal reflux disease presents to the emergency department as he was unable to pee. Patient was seen in the ER 3 days prior to presentation and was prescribed p.o. antibiotics for UTI. Noted that patient is extremely noncompliant with medications and treatment. Patient states he had difficulty with urination along with lower abdominal pain. Patient does endorse fevers and chills. Also admits excessive purulent drainage from his left lower extremity ulcers. No chest discomfort, palpitations, shortness of breath, changes in bowel habits. In the emergency department, about 700 cc urine obtained in the ER upon insertion of Finnegan catheter. Also hematuria was noted with clots. Patient was found to be septic. Review of Systems Constitutional: Constitutional: Reports chills and Reports fever(s) Cardiovascular: Cardiovascular: Reports no additional cardiovascular complaints Respiratory: Respiratory: Reports no additional respiratory complaints Gastrointestinal: Gastrointestinal: Reports no additional gastrointestinal complaints Genitourinary: Genitourinary: Reports hematuria and Reports difficulty urinating [facility] Medical History Chronic leg pain Diabetic ulcer of left lower leg PVD (peripheral vascular disease) Type 2 diabetes mellitus PAD (peripheral artery disease) Right above-knee amputee History of right above knee amputation Infection of amputation site of lower extremity BKA stump complication Below-knee amputation of right lower extremity BPH (benign prostatic hyperplasia) Cardiomyopathy CAD (coronary artery disease) History of peripheral vascular disease Coronary artery disease Cardiomyopathy Essential hypertension Type 2 diabetes mellitus with unspecified complications Abscess, perineum Asthma High cholesterol HTN (hypertension) Diabetes Family History Father No problems noted. Mother Diabetes HTN (hypertension) Sister No problems noted. Sister Diabetes HTN (hypertension) Sister No problems noted. Surgical History History of surgical removal of pilonidal cyst Hx of hand surgery Hx of hand surgery History of cardiac cath S/P angiogram of extremity Hx of varicose vein stripping Social History Household Members: None Household Members Other:: SELF Housing: Apartment Housing Other:: elderly housing Are you a primary career developer to a significant other at home: No Do you presently have visiting nurse or other home services: Yes (travel pta's) Alcohol intake: never Comment: Refused bed and chair alarm. Patient Tobacco Use Status: Current everyday Tobacco user Tobacco use type: Cigarette Cigarette Packs Per Day: 0.5 Cigarettes Per Day: 2 Years Smoked: 15+ Second Hand Smoke Exposure: No Advance Directives: Yes Advance Directives Information Provided: Yes Advance Directives on File: No Advance Directives Date on File: 12/10/20 service: No Current occupational status: disabled Meds Allergies Allergy/AdvReac Type Severity Reaction Status Date / Time No Known Allergies Allergy Verified 07/12/23 00:16 Active Medications: Current Medications Sodium Chloride (Ns) 1,000 mls @ 999 mls/hr IV .Q1H1M KARI Stop: 07/12/23 02:15 Last Admin: 07/12/23 01:29 Dose: 999 mls/hr Home Medications Medication Instructions Recorded Confirmed Last Taken Type albuterol sulfate 2.5 mg/3 mL 2.5 mg inhalation Q4H PRN Wheezing 06/04/23 07/09/23 Unknown History (0.083 %) solution for nebulization albuterol sulfate 90 mcg/actuation 2 puff inhalation Q4H PRN wheezing 06/04/23 07/09/23 Unknown History aerosol inhaler (Ventolin HFA) atorvastatin 80 mg tablet 80 mg PO BEDTIME 06/04/23 07/09/23 Unknown History aspirin 81 mg tablet,delayed 81 mg PO DAILY 06/17/23 07/10/23 06/16/23 History release insulin lispro 100 unit/mL 10 unit subcut BID@0800,1200 06/17/23 07/09/23 06/16/23 History subcutaneous pen tamsulosin 0.4 mg capsule 0.4 mg PO BEDTIME 06/17/23 07/09/23 06/16/23 History metformin 1,000 mg tablet 1,000 mg PO BIDWM 06/24/23 07/09/23 Unknown History insulin glargine 100 unit/mL (3 42 unit subcut BEDTIME 07/09/23 07/09/23 Unknown History mL) subcutaneous pen (Lantus Solostar U-100 Insulin) amoxicillin 875 mg-potassium 1 tab PO BID 07/10/23 07/10/23 Unknown History clavulanate 125 mg tablet apixaban 5 mg tablet (Eliquis) 10 mg PO BID 07/10/23 Unknown History carvedilol 25 mg tablet 25 mg PO BID 07/10/23 07/10/23 Unknown History ipratropium 20 mcg-albuterol 100 1 puff inhalation QID 07/10/23 07/10/23 Unknown History mcg/actuation mist for inhalation (Combivent Respimat) oxycodone 5 mg tablet 5 mg PO Q4H PRN pain 07/10/23 07/10/23 Unknown History sulfamethoxazole 800 1 tab PO BID 07/10/23 07/10/23 Unknown History mg-trimethoprim 160 mg tablet Physical Exam Vital Signs and Narrative: Vital Signs: Last Vital Signs Temp 99.5 F 07/12/23 01:38 Pulse 84 07/12/23 01:38 Resp 16 07/12/23 01:38 BP 103/46 L 07/12/23 01:38 Pulse Ox 95 07/12/23 01:38 O2 Del Method Room Air 07/12/23 01:38 BMI result Body Mass Index 33.9 Middle-aged male lying in bed in no distress Neck supple, no JVD Regular rate and rhythm, S1-S2 heard Regular breath sounds bilaterally, no wheezing or crackles appreciated Abdomen soft nontender, no guarding, no rigidity Patient is awake, alert and oriented to self, place, time and person ; no focal motor deficit Extremity: Right AKA, left lower extremity with chronic wound ulcers, purulent base and serosanguineous drainage + Psych: Normal mood No pedal edema Results Labs 07/12/23 01:07 07/12/23 01:48 Labs: Laboratory Results - last 24 hr 07/12/23 07/12/23 00:53 01:07 MCV 81.6 MCH 25.4 L MCHC 31.1 RDW 18.1 H Plt Count 332 MPV 10.1 Immature Gran % (Auto) 0.7 H Neut % (Auto) 88.4 H Lymph % (Auto) 5.8 L [place] % (Auto) 3.8 Eos % (Auto) 1.1 Baso % (Auto) 0.2 Lymph # (Auto) 0.7 L [place] # (Auto) 0.4 Eos # (Auto) 0.1 Baso # (Auto) 0.0 Abs Immat Gran (auto) 0.08 H Absolute Neuts (auto) 10.0 H Absolute Nucleated RBC 0.000 Nucleated RBC % (auto) 0.0 Lactic Acid 2.9 H* Urine Color Red A Urine Appearance Turbid Urine pH 6.0 Ur Specific [place] 1.020 Urine Protein 300 (3+) H Urine Glucose (UA) 250 H Urine Ketones Negative Urine Blood Large (3+) H Urine Nitrite Positive H Ur Leukocyte Esterase Moderate (2+) H Urine RBC >20 H Urine WBC 21-50 H Ur Squamous Epith Cells 0-2 Urine Bacteria Trace Hyaline Casts 0-2 Assessment and Plan (1) Cellulitis: Status: Acute (2) Acute UTI: Status: Acute Plan This is a 62-year-old male with pertinent history of insulin-dependent type 2 diabetes mellitus, peripheral vascular disease status post right AKA, congestive heart failure with reduced ejection fraction, BPH, mixed hyperlipidemia, gastroesophageal reflux disease presents to the emergency department for evaluation of urinary retention. #. Sepsis due to acute UTI + left lower extremity cellulitis: Resuscitated with IV crystalloids. Lactic acid and blood culture obtained. Urine culture pending. Initiating empiric IV antibiotics #. Acute lactic acidosis due to sepsis and metformin use #. Acute urinary retention with hematuria: Finnegan catheter inserted in the ER and patient was initiated on CBI. Consulted Urology, appreciate assistance. Will hold antiplatelet agent and anticoagulant #. Recurrent left lower leg cellulitis with infected diabetic ulcers: Initiating empiric antibiotics as above. Will consult vascular surgery and wound care #. Insulin-dependent diabetes mellitus with hyperglycemia: Initiating basal plus insulin regimen #. BPH: On Flomax #. Congestive heart failure with reduced ejection fraction: On furosemide, beta-opal #. Peripheral vascular disease: Status post right AKA. Continue high-intensity statin, hold Eliquis and aspirin in the setting of hematuria #. Mild persistent asthma: No exacerbation during admission. Continue home inhalers Med rec pending DVT prophylaxis: Hold Eliquis in the setting of hematuria Full code Admit as inpatient and will require two night minimum hospital stay for IV antibiotics (as above), which is not possible in a lesser acute setting. Specialist consults pending Quality Stroke Does the patient have a stroke diagnosis?: No VTE Prior VTE?: No VTE Risk Level:: Medical - moderate - high VTE Device Contraindication: Treatment Not Indicated VTE Drug Contraindication: Treatment Not Indicated
--- NOTE | 2023-07-12 01:49 | MHC.EDTECH ---
Sars/Flu/Rsv and lab collected and sent to lab,
--- NOTE | 2023-07-12 01:50 | MHC.EDTECH ---
Addendum entered by Caron Dixon 07/12/23 01:59: Patient has a 100.00 bill in [employer],Shots Naomi Gómez witnessed. Original Note: Belonging list completed and copy placed in chart.
--- NOTE | 2023-07-12 02:13 | MHC.EDTECH ---
Emptied 500MLS from Finnegan fruit punch in color, prior to CPI,RN at bedside
[2023-07-12 02:58] LABS: Alanine Aminotransferase 22 U/L (0-40); Albumin Level 2.5 g/dL (3.5-5.0); Alkaline Phosphatase 382 U/L (39-117); Anion Gap 14 (12-20); Aspartate Amino Transferase 20 U/L (5-37); Bilirubin Direct 0.5 mg/dL (0.0-0.5); Bilirubin Total 0.8 mg/dL (0.0-1.0); Blood Urea Nitrogen 17 mg/dL (9-16); Carbon Dioxide 22 mmol/L (22-29); Chloride 101 mmol/L (96-108); Creatinine Clr Calc Pharmacy 93.7; Estimated Glomerular Filt Rate > 60; Glucose Random 219 mg/dL (60-115); Lipase 8 U/L (8-78); Potassium 3.8 mmol/L (3.3-5.1); Sodium 133 mmol/L (135-145)
--- NOTE | 2023-07-12 03:21 | MHC.EDTECH ---
Addendum entered by Caron Dixon 07/12/23 03:24: and are 126/59 RN at bedside and is aware. Patient ate a half of a sandwich and drank 240CC of giner florentin. Original Note: Repeat Lactic obtained and sent to lab, Vitals taken .
--- NOTE | 2023-07-12 04:37 | MHC.EDTECH ---
Hourly rounds and vitals completed,call dominguez in reach
--- NOTE | 2023-07-12 05:44 | MHC.EDTECH ---
Patient leaked around catheter a large amount patient was cleaned and bed linen was changed, marina-care giving.Patient repositioned to comfort and vitals were taken. Call dominguez within reach
--- NOTE | 2023-07-12 07:46 | PM.EVENT ---
Event Note Date of Service: 07/12/23 Event Note: This is a 62-year-old male with pertinent history of insulin-dependent type 2 diabetes mellitus, peripheral vascular disease status post right AKA, congestive heart failure with reduced ejection fraction, BPH, mixed hyperlipidemia, gastroesophageal reflux disease presents to the emergency department for evaluation of urinary retention. #. Sepsis due to acute UTI + left lower extremity cellulitis: Resuscitated with IV crystalloids. Lactic acid and blood culture obtained. Urine culture pending. Initiating empiric IV antibiotics #. Acute lactic acidosis due to sepsis and metformin use #. Acute urinary retention with hematuria: Finnegan catheter inserted in the ER and patient was initiated on CBI. Consulted Urology, appreciate assistance. Will hold antiplatelet agent and anticoagulant #. Recurrent left lower leg cellulitis with infected diabetic ulcers: Initiating empiric antibiotics as above. Will consult vascular surgery and wound care #. Insulin-dependent diabetes mellitus with hyperglycemia: Initiating basal plus insulin regimen #. BPH: On Flomax #. Congestive heart failure with reduced ejection fraction: On furosemide, beta-opal #. Peripheral vascular disease: Status post right AKA. Continue high-intensity statin, hold Eliquis and aspirin in the setting of hematuria #. Mild persistent asthma: No exacerbation during admission. Continue home inhalers Med rec pending DVT prophylaxis: Hold Eliquis in the setting of hematuria Full code Admit as inpatient and will require two night minimum hospital stay for IV antibiotics (as above), which is not possible in a lesser acute setting. Specialist consults pending Time Spent With Patient Time: Total time managing care of this patient today ____ minutes.
--- NOTE | 2023-07-12 08:10 | PC.NURSE ---
Pt arrived by ems with c/o being unable to urinate and having blood come from penis. Pt is chinese speaking only,pt having 10/10 pain. swelling to penis and scrotum. [address] way ochoa placed by , iv placed in [place], labs sent. CBI staRTED PER DR. Glez. fluids and antibiotics administered per SEP. notified of patients complain of pain. No new orders.report given off to tera FLORES at 0700 .......................................................................................................................................................................................................................................................... .......................................................................................................................................................................................................................................................... .......................................................................................................................................................................................................................................................... .......................................................................................................................................................................................................................................................... .......................................................................................................................................................................................................................................................... .......................................................................................................................................................................................................0
--- NOTE | 2023-07-12 09:05 | PHA.PROG ---
Admission Date/Time: July 12, 2023 01:43 Indication: Weight in k.3 kg Adjusted body weight in K.4 kg Eighty Eight body weight in K.8 kg Obesity Dosing Indication % IBW:normal model used Serum Creatinine - Last 168 Hours 07/12/23 01:48 Creatinine 0.86 Estimated CrCl and GFR - Last 168 Hours 07/12/23 01:48 Estim Creat Clear Calc 93.7 Estimated GFR > 60 Vancomycin Loading Dose: 2,000 mg Current Vancomycin Dosing Regimen: 1000 mg Q12H Vancomycin Monitoring using AUC goal of 400 - 600 range with trough as surrogate marker: 452 Date and Time for next Vancomycin Level to be drawn: 07/13/2022 @1300 Pharmacist Comments on Vancomycin Plan: will continue to monitor and adjust per troughs and renal function Vancomycin dosing will take advantage of [employer] as a clinical decision support tool that uses Bayesian modeling to calculate individual patient's pharmacokinetic parameters and forecast the patient's drug concentration time course with the target goal AUC 24 range of 400 - 600 mg/L/hr.
--- NOTE | 2023-07-12 09:14 | PHA.MEDREC ---
Pharmacy Consult ? Medication Reconciliation Pharmacy has completed the medication reconciliation. med rec completed 2 days ago. Called [facility] to confirm picker and sorter load and unload of augmentin, bactrim, and eliquis. Spoke with patient through an staff interpreter. He reports finishing the two antibiotics from [facility] and started the lower dose of the Eliquis. I asked if he started the cefuroxime that he was discharged on 2 days ago and he says he started yesterday. However, no evidence of fill on claim history. Called all three of his pharmacies on his profile and none of them have the script on file so not sure if it was ever sent out. Sylvia Smith is aware.
[2023-07-12 10:09] LABS: MANUAL DIFF FLAG NO
[2023-07-12 10:10] LABS: Basophils Percent Auto 0.2 % (0-2); Eosinophils Absolute Auto 0.2 X10*3/uL (0.0-0.4); Eosinophils Percent Auto 2.1 % (0-4); Hematocrit 37.3 % (42.0-52.0); Hemoglobin 11.4 g/dl (14.0-18.0); Imm Gran Abs Auto 0.05 X10*3/uL (0.00-0.03); Imm Gran Pct Auto 0.5 % (0.0-0.4); Lymphocytes Absolute Auto 1.1 X10*3/uL (1.2-4.9); Lymphocytes Percent Auto 10.2 % (20-40); Mean Corpuscular HGB Conc 30.6 g/dl (31.0-36.0); Mean Corpuscular Hemoglobin 25.2 pg (27.0-33.0); Mean Corpuscular Volume 82.3 fL (80.0-98.0); Monocytes Absolute Auto 0.5 X10*3/uL (0.1-1.2); Monocytes Percent Auto 4.8 % (2-11); Neutrophils Absolute Auto 8.6 x10*3/uL (2.0-8.3); Neutrophils Percent Auto 82.2 % (45-73); Platelet Count 272 X10*3/uL (160-400); Red Blood Count 4.53 X10*6/uL (4.60-5.80); Red Cell Distribution Width 18.7 % (11.0-16.0); White Blood Count 10.5 X10*3/uL (4.8-10.8)
--- NOTE | 2023-07-12 13:29 | HO.PM.IMPN ---
Subjective Subjective Date of Service: 07/12/23 Review of Systems Follow up hematuria, leg pain and cellulitis c/o pain and discomfort Physical Exam Vital Signs: Vital Signs: Last Vital Signs Temp 98.9 F 07/12/23 04:59 Pulse 83 07/12/23 05:29 Resp 20 07/12/23 05:29 BP 118/64 07/12/23 05:29 Pulse Ox 99 07/12/23 05:29 O2 Del Method Room Air 07/12/23 05:29 BMI result Body Mass Index 33.9 Appearing in no acute distress lung sounds are clear to auscultation heart regular rate rhythm, clear S1, S2 positive bowel sounds, abdomen is soft, nontender neuro patient is alert x3, no focal deficits Right BKA, chronic Objective Data Active Medications Acetaminophen (Acetaminophen 325 Mg Tablet) 650 mg PO Q6H PRN PRN Reason: Pain, Mild (Pain Scale 1-3) Dextrose (Dextrose 50 % 25 Gm/50 Ml Syringe) 25 gm IVPUSH Q15M PRN; Protocol PRN Reason: per Hypoglycemia Standing Ord. Glucose (Glucose Gel 15 Gm Gel..Gram.) 15 gm PO Q15M PRN; Protocol PRN Reason: per Hypoglycemia Standing Ord. Piperacillin Sod/Tazobactam (Sod 4.5 gm/ Sodium Chloride) 100 mls @ 200 mls/hr IV Q6H [facility], [facility] Last Infusion: 07/12/23 11:12 Dose: Infused Documented By: ROYAL Vancomycin HCl 1,000 mg/ (Sodium Chloride) 270 mls @ 270 mls/hr IV Q12H [facility]1983 Insulin Human Lispro (Insulin Lispro 100 Unit/Ml 3 Ml Vial) 0 unit SUBCUT QIDACHS [facility]LY [facility], [facility]1983; Protocol Last Admin: 07/12/23 13:03 Dose: Not Given Documented By: ROYAL Non-Admin Reason: No Insulin Coverage Melatonin (Melatonin 3 Mg Tablet) 6 mg PO BEDTIME PRN PRN Reason: Insomnia Morphine Sulfate (Morphine Sulfate 2 Mg/Ml Cartridge) 1 mg IVPUSH Q4H PRN; Protocol PRN Reason: Pain, Moderate(Pain Scale 4-6) Ondansetron HCl (Ondansetron Hcl 4 Mg/2 Ml Vial) 4 mg IVPUSH Q8H PRN PRN Reason: Nausea and Vomiting Pharmacy Consult (Consult Rx Vancomycin Dosing) 1 each MISCELLANE DAILY PRN PRN Reason: Consult order Sodium Chloride (0.9 % Sodium Chloride Flush 3 Ml Syringe) 3 ml IVFLUSH QSHIFT [facility] Last Admin: 07/12/23 09:14 Dose: 3 ml Documented By: ROYAL Labs 07/12/23 10:05 07/12/23 01:48 Labs: Laboratory Results - last 24 hr 07/12/23 07/12/23 07/12/23 00:53 01:07 01:27 MCV 81.6 MCH 25.4 L MCHC 31.1 RDW 18.1 H Plt Count 332 MPV 10.1 Immature Gran % (Auto) 0.7 H Neut % (Auto) 88.4 H Lymph % (Auto) 5.8 L Miner % (Auto) 3.8 Eos % (Auto) 1.1 Baso % (Auto) 0.2 Lymph # (Auto) 0.7 L Miner # (Auto) 0.4 Eos # (Auto) 0.1 Baso # (Auto) 0.0 Abs Immat Gran (auto) 0.08 H Absolute Neuts (auto) 10.0 H Absolute Nucleated RBC 0.000 Nucleated RBC % (auto) 0.0 Anion Gap Estim Creat Clear Calc Estimated GFR POC Glucose Random Glucose Lactic Acid 2.9 H* Lactic Acid F/U @ 2Hr Lactic Acid F/U @ 4Hr Calcium Total Bilirubin Direct Bilirubin AST ALT Alkaline Phosphatase Total Protein Albumin Lipase Urine Color Red A Urine Appearance Turbid Urine pH 6.0 Ur Specific [employer] 1.020 Urine Protein 300 (3+) H Urine Glucose (UA) 250 H Urine Ketones Negative Urine Blood Large (3+) H Urine Nitrite Positive H Ur Leukocyte Esterase Moderate (2+) H Urine RBC >20 H Urine WBC 21-50 H Ur Squamous Epith Cells 0-2 Urine Bacteria Trace Hyaline Casts 0-2 Influenza Type A (PCR) NEGATIVE Influenza Type B (PCR) NEGATIVE RSV RNA Qual (PCR) NEGATIVE SARS-CoV-2 RNA (RT-PCR) NEGATIVE 07/12/23 07/12/23 07/12/23 01:48 03:16 03:19 MCV MCH MCHC RDW Plt Count MPV Immature Gran % (Auto) Neut % (Auto) Lymph % (Auto) Miner % (Auto) Eos % (Auto) Baso % (Auto) Lymph # (Auto) Miner # (Auto) Eos # (Auto) Baso # (Auto) Abs Immat Gran (auto) Absolute Neuts (auto) Absolute Nucleated RBC Nucleated RBC % (auto) Anion Gap 14 Estim Creat Clear Calc 93.7 Estimated GFR > 60 POC Glucose 165 H Random Glucose 219 H Lactic Acid Lactic Acid F/U @ 2Hr 2.6 H* Lactic Acid F/U @ 4Hr Calcium 8.0 L Total Bilirubin 0.8 Direct Bilirubin 0.5 AST 20 ALT 22 Alkaline Phosphatase 382 H Total Protein 6.0 L Albumin 2.5 L Lipase 8 Urine Color Urine Appearance Urine pH Ur Specific [employer] Urine Protein Urine Glucose (UA) Urine Ketones Urine Blood Urine Nitrite Ur Leukocyte Esterase Urine RBC Urine WBC Ur Squamous Epith Cells Urine Bacteria Hyaline Casts Influenza Type A (PCR) Influenza Type B (PCR) RSV RNA Qual (PCR) SARS-CoV-2 RNA (RT-PCR) 07/12/23 07/12/23 07/12/23 07:20 10:05 13:01 MCV 82.3 MCH 25.2 L MCHC 30.6 L RDW 18.7 H Plt Count 272 MPV 10.0 Immature Gran % (Auto) 0.5 H Neut % (Auto) 82.2 H Lymph % (Auto) 10.2 L Miner % (Auto) 4.8 Eos % (Auto) 2.1 Baso % (Auto) 0.2 Lymph # (Auto) 1.1 L Miner # (Auto) 0.5 Eos # (Auto) 0.2 Baso # (Auto) 0.0 Abs Immat Gran (auto) 0.05 H Absolute Neuts (auto) 8.6 H Absolute Nucleated RBC 0.000 Nucleated RBC % (auto) 0.0 Anion Gap Estim Creat Clear Calc Estimated GFR POC Glucose 161 H 139 H Random Glucose Lactic Acid Lactic Acid F/U @ 2Hr Lactic Acid F/U @ 4Hr 3.1 H* Calcium Total Bilirubin Direct Bilirubin AST ALT Alkaline Phosphatase Total Protein Albumin Lipase Urine Color Urine Appearance Urine pH Ur Specific [employer] Urine Protein Urine Glucose (UA) Urine Ketones Urine Blood Urine Nitrite Ur Leukocyte Esterase Urine RBC Urine WBC Ur Squamous Epith Cells Urine Bacteria Hyaline Casts Influenza Type A (PCR) Influenza Type B (PCR) RSV RNA Qual (PCR) SARS-CoV-2 RNA (RT-PCR) Assessment and Plan (1) Acute UTI: Status: Acute (2) Cellulitis: Status: Acute Plan This is a 62-year-old male with pertinent history of insulin-dependent type 2 diabetes mellitus, peripheral vascular disease status post right AKA, congestive heart failure with reduced ejection fraction, BPH, mixed hyperlipidemia, gastroesophageal reflux disease presents to the emergency department for evaluation of urinary retention. Sepsis due to acute UTI + left lower extremity cellulitis Resuscitated with IV crystalloids. urine and blood cultures pending continue IV vancomycin and Zosyn Venous duplex ultrasound negative for DVT Acute lactic acidosis due to sepsis and metformin use Acute urinary retention with hematuria Finnegan catheter inserted with CBI Consulted Urology, Will hold antiplatelet agent and anticoagulant Recurrent left lower leg cellulitis with infected diabetic ulcers continue vancomycin and zosyn Will consult vascular surgery and wound care pain management Insulin-dependent diabetes mellitus with hyperglycemia ss, ada diet BPH on Flomax Congestive heart failure with reduced ejection fraction On furosemide, beta-opal Peripheral vascular disease: Status post right AKA. Continue high-intensity statin, hold Eliquis and aspirin in the setting of hematuria Mild persistent asthma No exacerbation during admission. Continue home inhalers DVT prophylaxis: Hold Eliquis in the setting of hematuria Attending Dr. Mojica Full code continue hospital stay for IV antibiotics (as above), which is not possible in a lesser acute setting. Specialist consults pending Quality Stroke Does the patient have a stroke diagnosis?: No VTE Prior VTE?: No VTE Risk Level:: Medical - moderate - high VTE Device Contraindication: Treatment Not Indicated VTE Drug Contraindication: Treatment Not Indicated
[2023-07-12] MEDS: Morphine Sulfate 2 MG/ML CARTRIDGE IVPUSH ×2 (18:49→23:14)
[2023-07-12] MEDS: Insulin Lispro 100 UNIT/ML 3 ML VIAL SUBCUT ×2 (18:52→20:44)
[2023-07-12 18:55] LABS: Glucose, Whole Blood 216 mg/dL (60-115)
--- NOTE | 2023-07-12 21:06 | PC.NURSE ---
Addendum entered by Franck Bowden RN 07/12/23 21:07: production statistical clerk at bedside for assessment Original Note: pt stated he lives in an apartment w/ [employer] care. smokes 3-4 cigarets daily, has no spiritual preference.
[2023-07-12 21:14] LABS: Glucose, Whole Blood 186 mg/dL (60-115)
[2023-07-12] MEDS: Albuterol/Iprat 2.5/0.5MG 3 ML AMPUL.NEB INHALE (22:37)
[2023-07-13] MEDS: Acetaminophen 325 MG TABLET 650 MG PO (02:42)
[2023-07-13] MEDS: Morphine Sulfate 2 MG/ML CARTRIDGE IVPUSH ×5 (03:03→21:06)
[2023-07-13 04:00] VITALS: BP 121/72; PULSE 87; RESP 18; TEMP 36; O2SAT 98
[2023-07-13 07:41] LABS: Glucose, Whole Blood 95 mg/dL (60-115)
[2023-07-13 08:00] VITALS: BP 137/72; PULSE 85; RESP 18; TEMP 36; O2SAT 99
[2023-07-13 11:17] LABS: Glucose, Whole Blood 152 mg/dL (60-115)
[2023-07-13] MEDS: Insulin Lispro 100 UNIT/ML 3 ML VIAL SUBCUT ×2 (12:04→21:06)
--- NOTE | 2023-07-13 12:23 | HO.PM.IMPN ---
Subjective Subjective Date of Service: 07/13/23 Review of Systems Follow up hematuria, leg pain and cellulitis c/o pain and discomfort Physical Exam Vital Signs: Vital Signs: Last Vital Signs Temp 96.8 F 07/13/23 08:00 Pulse 85 07/13/23 08:00 Resp 18 07/13/23 08:00 BP 137/72 07/13/23 08:00 Pulse Ox 99 07/13/23 08:00 O2 Del Method Room Air 07/13/23 08:00 BMI result Body Mass Index 33.9 Objective Data Active Medications Acetaminophen (Acetaminophen 325 Mg Tablet) 650 mg PO Q6H PRN PRN Reason: Pain, Mild (Pain Scale 1-3) Last Admin: 07/13/23 02:42 Dose: 650 mg Documented By: ANNY Albuterol/Ipratropium (Albuterol/Iprat 2.5/0.5mg 3 Ml Ampul.Neb) 3 ml INHALE QID PRN PRN Reason: Shortness of Breath/Wheezing Last Admin: 07/12/23 22:37 Dose: 3 ml Documented By: CYNDY Dextrose (Dextrose 50 % 25 Gm/50 Ml Syringe) 25 gm IVPUSH Q15M PRN; Protocol PRN Reason: per Hypoglycemia Standing Ord. Glucose (Glucose Gel 15 Gm Gel..Gram.) 15 gm PO Q15M PRN; Protocol PRN Reason: per Hypoglycemia Standing Ord. Piperacillin Sod/Tazobactam (Sod 4.5 gm/ Sodium Chloride) 100 mls @ 200 mls/hr IV Q6H [facility] Last Infusion: 07/13/23 08:39 Dose: Infused Documented By: MICHAEL Vancomycin HCl 1,000 mg/ (Sodium Chloride) 270 mls @ 270 mls/hr IV Q12H [facility] Last Infusion: 07/13/23 04:00 Dose: Infused Documented By: ANNY Insulin Human Lispro (Insulin Lispro 100 Unit/Ml 3 Ml Vial) 0 unit SUBCUT QIDACHS [facility]; Protocol Last Admin: 07/13/23 12:04 Dose: 2 unit Documented By: MICHAEL Melatonin (Melatonin 3 Mg Tablet) 6 mg PO BEDTIME PRN PRN Reason: Insomnia Morphine Sulfate (Morphine Sulfate 2 Mg/Ml Cartridge) 2 mg IVPUSH Q4H PRN; Protocol PRN Reason: Pain, Moderate(Pain Scale 4-6) Last Admin: 07/13/23 12:04 Dose: 2 mg Documented By: MICHAEL Ondansetron HCl (Ondansetron Hcl 4 Mg/2 Ml Vial) 4 mg IVPUSH Q8H PRN PRN Reason: Nausea and Vomiting Oxycodone HCl (Oxycodone Hcl Immed Release 5 Mg Tablet) 5 mg PO Q6H PRN PRN Reason: Pain, Moderate(Pain Scale 4-6) Pharmacy Consult (Consult Rx Vancomycin Dosing) 1 each MISCELLANE DAILY PRN PRN Reason: Consult order Sodium Chloride (0.9 % Sodium Chloride Flush 3 Ml Syringe) 3 ml IVFLUSH [facility] Last Admin: 07/13/23 07:49 Dose: 3 ml Documented By: MICHAEL Labs 07/12/23 10:05 07/12/23 01:48 Labs: Laboratory Results - last 24 hr 07/12/23 07/12/23 07/12/23 10:05 13:01 18:48 Anion Gap Cancelled Estim Creat Clear Calc Cancelled Estimated GFR Cancelled POC Glucose 139 H 216 H Random Glucose Cancelled Calcium Cancelled 07/12/23 07/13/23 07/13/23 20:04 07:19 11:11 Anion Gap Estim Creat Clear Calc Estimated GFR POC Glucose 186 H 95 152 H Random Glucose Calcium Microbiology Microbiology Results: Microbiology 07/12/23 Unknown Urine Culture - Final Urine Catheterized - Finnegan Catheter No growth. 07/12/23 01:07 Blood Culture - Preliminary Blood - Venous No growth after 24 hours. 07/12/23 01:07 Blood Culture - Preliminary Blood - Venous No growth after 24 hours. Assessment and Plan (1) Acute UTI: Status: Acute (2) Cellulitis: Status: Acute Plan This is a 62-year-old male with pertinent history of insulin-dependent type 2 diabetes mellitus, peripheral vascular disease status post right AKA, congestive heart failure with reduced ejection fraction, BPH, mixed hyperlipidemia, gastroesophageal reflux disease presents to the emergency department for evaluation of urinary retention. Acute urinary retention with hematuria Finnegan catheter inserted with CBI, still bloody Consulted Urology pending Will hold antiplatelet agent and anticoagulant Sepsis due to acute UTI + left lower extremity cellulitis Resuscitated with IV crystalloids. urine and blood cultures pending continue IV vancomycin and Zosyn Venous duplex ultrasound negative for DVT Acute lactic acidosis due to sepsis and metformin use Recurrent left lower leg cellulitis with infected diabetic ulcers continue vancomycin and zosyn Will consult vascular surgery and wound care pain management Insulin-dependent diabetes mellitus with hyperglycemia ss, ada diet BPH on Flomax Congestive heart failure with reduced ejection fraction On furosemide, beta-opal Peripheral vascular disease: Status post right AKA. Continue high-intensity statin, hold Eliquis and aspirin in the setting of hematuria Mild persistent asthma No exacerbation during admission. Continue home inhalers DVT prophylaxis: Hold Eliquis in the setting of hematuria Attending Dr. Mojica Full code continue hospital stay for IV antibiotics (as above), which is not possible in a lesser acute setting. Specialist consults pending Quality Stroke Does the patient have a stroke diagnosis?: No VTE Prior VTE?: No VTE Risk Level:: Medical - moderate - high VTE Device Contraindication: Treatment Not Indicated VTE Drug Contraindication: Treatment Not Indicated
--- NOTE | 2023-07-13 12:51 | HO.WOUND ---
Wound Consult: Initial 62yr old male admitted to [facility] on?07/12/23 01:43 - See progress notes and H&P for detailed history. Wound consult placed for Left Leg wounds POA. Arrival to bedside pt is Maldivian speaking only - Finish Remover requested and assisted throughout visit. Pt reports he does not follow up with wound clinic and does not have VNA services. He reports he at times has been cleaning them and covering with dry dressing. See below for wound details. Left Lower Leg Etiology: Venous Wound Wound Bed: Adherent yellow slough Drainage / Odor: yellow moist drainage Edges: ?irregular and macerated Tresa wound: [place] and hemosiderin staining - evidence of recent swelling No Induration, Fluctuance or Warmth noted Pain: denies Goals of Treatment: ? Alginate for moisture management and autolytic debridement Pt will benefit from VNA services and Out Patient Wound Care Follow up at time of D/C. Recommendations: 1. Turn and Reposition every 2 hours and as needed for patient comfort.? Use pillows or wedges to support off loading positions. 2. Off Load all bony prominences with use of pillows and heel boots if needed.? Apply Preventative foams where needed. ? 3. Monitor for incontinence and moisture control, use barrier creams when needed for prevention and treatment. 4. Provide adequate and supplemental nutrition. 5. Order or Continue low air loss mattress. 6. Maintain blood glucose levels per Providers orders. 7. Left Lower Leg - Cleanse with NS, Pat dry. Apply Vaseline to lower leg. Cover wound bed with cut to size Alginate, cover with ABD pad, Gauze wrap. Change Daily. Re-consult wound care Nurse for wound deterioration or wound changes.
--- NOTE | 2023-07-13 13:09 | PC.NURSE ---
Pt continues to require CBI. Urine red colored in bag, pink tinged in tube. Small amount of shreds noted, no clots. Pt continues to endorse abd pain relived with PRN IV morphine.
--- NOTE | 2023-07-13 13:49 | MHC.CM.PN ---
Addendum entered by Daiana Mayfield RN 07/13/23 13:58: CORRECTION - NO IMM DELIVERED OR REQUIRED. WRITTEN IN ERROR. Original Note: CM MET WITH PATIENT AT BEDSIDE W/ [employer]ER ASSISTANCE. IMM DELIVERED. PATIENT IS FROM HOME ALONE W/ DAILY GARAGE ATTENDANT, 19 HRS/WK. GARAGE ATTENDANT ASSISTS W/ ADL'S AND HOME MAKING. R AKA, USES ELECTRIC W/C AND CAN SELF XFER. ALSO HAS HOSPITAL BED AND MANAUL W/C. PCP: ERICA HARE MD HCP: HENRY TORRES [phone], ON FILE AND VERIFIED. PATIENT STATES HE MAY WANT TO CHANGE THIS, BUT ISN'T SURE WHO HE WOULD NAME HIS AGENT. HE WILL FOLLOW UP W/ CM WHEN HE DECIDES. DP: GOAL IS HOME, RESUME GARAGE ATTENDANT SERVICES VIA BLS. HAS USED [facility] IN THE PAST AND WOULD BE OPEN TO HOME SERVICES AGAIN IF INDICATED. CM WILL CONTINUE TO FOLLOW FOR DC NEEDS.
[2023-07-13 14:03] LABS: Creatinine Clr Calc Pharmacy 110.4; Estimated Glomerular Filt Rate > 60; Vancomycin Trough 16.4 mcg/mL (10.0-20.0)
--- NOTE | 2023-07-13 14:12 | HE.PHANOTE ---
re [facility] Patients level camr back this afternoon at 16.4. Renal function did improved from 0.86 yesterday to 0.73 today. Will continue with 1000 mg Q12H for two more doses to see how improvement in renal function affects level. Next level will be 07/14/23 @1300 to ensure safety vs efficacy
[2023-07-13 14:51] VITALS: BP 130/74; PULSE 95; RESP 20; TEMP 36.2; O2SAT 99
[2023-07-13] MEDS: vancomycin HCL 1,000 MG in 0.9 % Sodium Chloride 250 ML 270 MG IV (15:01)
[2023-07-13 16:04] LABS: Glucose, Whole Blood 131 mg/dL (60-115)
--- NOTE | 2023-07-13 16:24 | P.CNUR_ITS ---
History of Present Illness Consult details Consult date: 07/13/23 Narrative: CC: Urinary retention with hematuria 62-year-old male Insulin-dependent type 2 diabetic, right AKA, congestive heart failure with reduced ejection fraction, Presents to emergency room with 3 day history prior difficulty Was given p.o. antibiotics for UTI. Finnegan catheter placed in emergency room with 700 cc residual and hematuria. CBI started With clots Irrigation performed today at bedside Initiate Flomax with finasteride Urine culture currently negative Voiding trial 2 weeks Review of Systems 2 Constitutional: Constitutional: Reports as per HPI and Reports no additional constitutional complaints Cardiovascular: Cardiovascular: Reports as per HPI and Reports no additional cardiovascular complaints Respiratory: Respiratory: Reports as per HPI and Reports no additional respiratory complaints Gastrointestinal: Gastrointestinal: Reports as per HPI and Reports no additional gastrointestinal complaints Genitourinary: Genitourinary: Reports as per HPI Musculoskeletal: Musculoskeletal: Reports no additional musculoskeletal complaints and Reports as per HPI Neurologic: Reports system reviewed and no additional complaints, except as documented and Reports as per HPI PMFSH Past Medical History Medical History Chronic leg pain Diabetic ulcer of left lower leg PVD (peripheral vascular disease) Type 2 diabetes mellitus PAD (peripheral artery disease) Right above-knee amputee History of right above knee amputation Infection of amputation site of lower extremity BKA stump complication Below-knee amputation of right lower extremity BPH (benign prostatic hyperplasia) Cardiomyopathy CAD (coronary artery disease) History of peripheral vascular disease Coronary artery disease Cardiomyopathy Essential hypertension Type 2 diabetes mellitus with unspecified complications Abscess, perineum Asthma High cholesterol HTN (hypertension) Diabetes Family History Family History Father No problems noted. Mother Diabetes HTN (hypertension) Sister No problems noted. Sister Diabetes HTN (hypertension) Sister No problems noted. 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 Patient Tobacco Use Status: Never used Tobacco Tobacco use type: Cigarette Cigarette Packs Per Day: 0.5 Cigarettes Per Day: 2 Years Smoked: 15+ Second Hand Smoke Exposure: No Advance Directives Date on File: 12/10/20 service: No Current occupational status: disabled Meds Allergies Allergy/AdvReac Type Severity Reaction Status Date / Time No Known Allergies Allergy Verified 07/12/23 00:16 Active Medications: Current Medications Acetaminophen (Acetaminophen 325 Mg Tablet) 650 mg PO Q6H PRN PRN Reason: Pain, Mild (Pain Scale 1-3) Last Admin: 07/13/23 02:42 Dose: 650 mg Albuterol/Ipratropium (Albuterol/Iprat 2.5/0.5mg 3 Ml Ampul.Neb) 3 ml INHALE QID PRN PRN Reason: Shortness of Breath/Wheezing Last Admin: 07/12/23 22:37 Dose: 3 ml Dextrose (Dextrose 50 % 25 Gm/50 Ml Syringe) 25 gm IVPUSH Q15M PRN; Protocol PRN Reason: per Hypoglycemia Standing Ord. Glucose (Glucose Gel 15 Gm Gel..Gram.) 15 gm PO Q15M PRN; Protocol PRN Reason: per Hypoglycemia Standing Ord. Piperacillin Sod/Tazobactam (Sod 4.5 gm/ Sodium Chloride) 100 mls @ 200 mls/hr IV Q6H [facility] Last Infusion: 07/13/23 14:49 Dose: Infused Vancomycin HCl 1,000 mg/ (Sodium Chloride) 270 mls @ 270 mls/hr IV Q12H [facility] Last Infusion: 07/13/23 16:10 Dose: Infused Insulin Human Lispro (Insulin Lispro 100 Unit/Ml 3 Ml Vial) 0 unit SUBCUT QIDACHS [facility]; Protocol Last Admin: 07/13/23 16:13 Dose: Not Given Melatonin (Melatonin 3 Mg Tablet) 6 mg PO BEDTIME PRN PRN Reason: Insomnia Morphine Sulfate (Morphine Sulfate 2 Mg/Ml Cartridge) 2 mg IVPUSH Q4H PRN; Protocol PRN Reason: Pain, Moderate(Pain Scale 4-6) Last Admin: 07/13/23 16:10 Dose: 2 mg Ondansetron HCl (Ondansetron Hcl 4 Mg/2 Ml Vial) 4 mg IVPUSH Q8H PRN PRN Reason: Nausea and Vomiting Oxycodone HCl (Oxycodone Hcl Immed Release 5 Mg Tablet) 5 mg PO Q6H PRN PRN Reason: Pain, Moderate(Pain Scale 4-6) Pharmacy Consult (Consult Rx Vancomycin Dosing) 1 each MISCELLANE DAILY PRN PRN Reason: Consult order Sodium Chloride (0.9 % Sodium Chloride Flush 3 Ml Syringe) [facility] Last Admin: 07/13/23 15:33 Dose: Not Given Home Medications Medication Instructions Recorded Confirmed Last Taken Type albuterol sulfate 2.5 mg/3 mL 2.5 mg inhalation Q4H PRN Wheezing 06/04/23 07/12/23 Unknown History (0.083 %) solution for nebulization albuterol sulfate 90 mcg/actuation 2 puff inhalation Q4H PRN wheezing 06/04/23 07/12/23 Unknown History aerosol inhaler (Ventolin HFA) atorvastatin 80 mg tablet 80 mg PO BEDTIME 06/04/23 07/12/23 Unknown History aspirin 81 mg tablet,delayed 81 mg PO DAILY 06/17/23 07/12/23 06/16/23 History release insulin lispro 100 unit/mL 10 unit subcut BID@0800,1200 06/17/23 07/12/23 06/16/23 History subcutaneous pen tamsulosin 0.4 mg capsule 0.4 mg PO BEDTIME 06/17/23 07/12/23 06/16/23 History metformin 1,000 mg tablet 1,000 mg PO BIDWM 06/24/23 07/12/23 Unknown History insulin glargine 100 unit/mL (3 42 unit subcut BEDTIME 07/09/23 07/12/23 Unknown History mL) subcutaneous pen (Lantus Solostar U-100 Insulin) apixaban 5 mg tablet (Eliquis) 5 mg PO BID 07/10/23 07/12/23 Unknown History carvedilol 25 mg tablet 25 mg PO BID 07/10/23 07/12/23 Unknown History ipratropium 20 mcg-albuterol 100 1 puff inhalation QID 07/10/23 07/12/23 Unknown History mcg/actuation mist for inhalation (Combivent Respimat) oxycodone 5 mg tablet 5 mg PO Q4H PRN pain 07/10/23 07/12/23 Unknown History Physical Exam 2 Vital Signs: Vital Signs: Last Vital Signs Temp 97.1 F 07/13/23 14:51 Pulse 95 07/13/23 14:51 Resp 20 07/13/23 14:51 BP 130/74 07/13/23 14:51 Pulse Ox 99 07/13/23 14:51 O2 Del Method Room Air 07/13/23 14:51 BMI result Body Mass Index 33.9 Const: General: cooperative, healthy appearing, comfortable and no acute distress Orientation/consciousness: patient oriented x3 HEENT: Face and sinus: Yes normal facial exam Mouth: moist mucous membranes Neck: Neck: Yes normal visual inspection, Yes full ROM and Yes trachea midline Chest: Chest palpation & inspection: normal inspection of the chest Resp: Effort & Inspection: normal respiratory effort, able to speak in complete sentences and no respiratory distress GI: Inspection: Yes normal to inspection Back/Spine/Pelvis: Cervical Spine: normal cervical lordosis Thoracic/Lumbar Spine: thoracic and lumbar spine normal to inspection Skin: General skin exam: no rashes or lesions noted Neuro: General: patient oriented x3, tone normal and moves all extremities Extrem: General: Yes normal to inspection and Yes capillary refill normal Results Labs 07/12/23 10:05 07/13/23 13:33 Labs: Abnormal lab results 07/12/23 07/12/23 07/13/23 Range/Units 18:48 20:04 11:11 POC Glucose 216 H 186 H 152 H (60-115) mg/dL 07/13/23 Range/Units 16:00 POC Glucose 131 H (60-115) mg/dL BMP 07/12/23 07/13/23 10:05 13:33 Sodium Cancelled Potassium Cancelled Chloride Cancelled Carbon Dioxide Cancelled BUN Cancelled Creatinine Cancelled 0.73 Calcium Cancelled Urine 07/12/23 Range/Units 00:53 Urine Color Red A Urine Appearance Turbid Urine pH 6.0 (5.0-9.0) Ur Specific [place] 1.020 (1.005-1.025) Urine Protein 300 (3+) H (Neg-Trace) mg/dL Urine Glucose (UA) 250 H (Negative) mg/dL All other labs normal. Assessment and Plan (1) Acute UTI: Status: Acute (2) Urinary retention: Status: Acute (3) BPH w urinary obs/LUTS: Status: Acute Plan Initial medications CBI until clear Finnegan catheter 2 weeks Procedures Date of Service Date of Service: 07/13/23 Procedure Note Procedure Note: CC: Hematuria HPI: Cost to evaluate patient with hematuria irrigation [address] Fin[address] catheter in place [] [place] Finnegan catheter disconnected from collection bag. Irrigation halted. Bladder irrigated for removal of significant clot. Approximately 10 minutes taken for full irrigation. The completion of irrigation catheter bag reattached. Irrigation restarted. Irrigation may be halted once collection bed free of clot for 12 hours. P.r.n. irrigation with 100 cc for clot Hematuria Bladder Irriation CPT 66945
--- NOTE | 2023-07-13 16:46 | PC.NURSE ---
Addendum entered by Yesica Hook RN 07/13/23 18:05: Dr. Baldwin at bedside at approximately 1730, irrigated CBI, pt tolerated well. Addendum entered by Yesica Hook RN 07/13/23 16:47: Pt tolerated irrigation well. Original Note: Sylvia Smith made aware pt CBI flow stopped, hand irrigation provided, large amount of blood clots evacuated, CBI flow resumed red/pink color.
[2023-07-13 20:00] VITALS: BP 135/82; PULSE 114; RESP 20; TEMP 37.1; O2SAT 99
[2023-07-13 20:07] LABS: Glucose, Whole Blood 168 mg/dL (60-115)
[2023-07-13] MEDS: Albuterol/Iprat 2.5/0.5MG 3 ML AMPUL.NEB INHALE (20:57)
[2023-07-13 20:59] VITALS: PULSE 109; RESP 20; O2SAT 99
[2023-07-13] MEDS: Doxazosin Mesylate 2 MG TABLET 4 MG PO (21:06)
[2023-07-14] VITALS (7 sets, daily range): BP systolic 122–140; BP diastolic 65–73; PULSE 88–98; RESP 17–18; TEMP 35.9–36.7; O2SAT 97–100
[2023-07-14] MEDS: oxyCODONE HCl Immed Release 5 MG TABLET PO ×4 (00:38→23:13)
[2023-07-14] MEDS: Morphine Sulfate 2 MG/ML CARTRIDGE IVPUSH ×4 (02:21→21:48)
[2023-07-14] MEDS: vancomycin HCL 1,000 MG in 0.9 % Sodium Chloride 250 ML 270 MG IV (03:04)
[2023-07-14] MEDS: Albuterol/Iprat 2.5/0.5MG 3 ML AMPUL.NEB INHALE ×3 (04:41→20:00)
[2023-07-14 07:06] LABS: Glucose, Whole Blood 134 mg/dL (60-115)
[2023-07-14 07:29] LABS: Estimated Average Glucose 163 mg/dL; Hemoglobin A1c % 7.3 % (<6.0)
--- NOTE | 2023-07-14 08:30 | PC.NURSE ---
Provider Sylvia Smith assessed patient. CBI in place with ochoa draining clear yellow urine with scant sediment. No hematuria or clots present for greater than 12 hours. CBI discontinued at this time per provider. CBI disconnected and capped. Ochoa care provided. Device in place and secure.
[2023-07-14] MEDS: Finasteride 5 MG TABLET PO (08:41)
--- NOTE | 2023-07-14 10:57 | HO.PM.IMPN ---
Subjective Subjective Date of Service: 07/14/23 Review of Systems Follow up hematuria, leg pain and cellulitis c/o pain and discomfort Physical Exam Vital Signs: Vital Signs: Last Vital Signs Temp 96.7 F L 07/14/23 06:50 Pulse 98 07/14/23 06:50 Resp 17 07/14/23 06:50 BP 126/65 07/14/23 06:50 Pulse Ox 97 07/14/23 06:50 O2 Del Method Room Air 07/14/23 06:50 BMI result Body Mass Index 33.9 Appearing in no acute distress lung sounds are clear to auscultation heart regular rate rhythm, clear S1, S2 positive bowel sounds, abdomen is soft, nontender neuro patient is alert x3, no focal deficits Right BKA LLE venous wound Objective Data Active Medications Acetaminophen (Acetaminophen 325 Mg Tablet) 650 mg PO Q6H PRN PRN Reason: Pain, Mild (Pain Scale 1-3) Last Admin: 07/13/23 02:42 Dose: 650 mg Documented By: ANNY Albuterol/Ipratropium (Albuterol/Iprat 2.5/0.5mg 3 Ml Ampul.Neb) 3 ml INHALE QID PRN PRN Reason: Shortness of Breath/Wheezing Last Admin: 07/14/23 04:41 Dose: 3 ml Documented By: CURTIS Dextrose (Dextrose 50 % 25 Gm/50 Ml Syringe) 25 gm IVPUSH Q15M PRN; Protocol PRN Reason: per Hypoglycemia Standing Ord. Doxazosin Mesylate (Doxazosin Mesylate 2 Mg Tablet) 4 mg PO BEDTIME KARI; Protocol Last Admin: 07/13/23 21:06 Dose: 4 mg Documented By: JOSE ALFREDO Finasteride (Finasteride 5 Mg Tablet) 5 mg PO DAILY [facility] Last Admin: 07/14/23 08:41 Dose: 5 mg Documented By: MERCEDES Glucose (Glucose Gel 15 Gm Gel..Gram.) 15 gm PO Q15M PRN; Protocol PRN Reason: per Hypoglycemia Standing Ord. Piperacillin Sod/Tazobactam (Sod 4.5 gm/ Sodium Chloride) 100 mls @ 200 mls/hr IV Q6H [facility] Last Infusion: 07/14/23 09:43 Dose: Infused Documented By: MERCEDES Vancomycin HCl 1,000 mg/ (Sodium Chloride) 270 mls @ 270 mls/hr IV Q12H [facility] Last Infusion: 07/14/23 04:04 Dose: Infused Documented By: JOSE ALFREDO Insulin Human Lispro (Insulin Lispro 100 Unit/Ml 3 Ml Vial) 0 unit SUBCUT QIDACHS [facility]; Protocol Last Admin: 07/14/23 07:21 Dose: Not Given Documented By: MERCEDES Non-Admin Reason: No Insulin Coverage Melatonin (Melatonin 3 Mg Tablet) 6 mg PO BEDTIME PRN PRN Reason: Insomnia Morphine Sulfate (Morphine Sulfate 2 Mg/Ml Cartridge) 2 mg IVPUSH Q4H PRN; Protocol PRN Reason: Pain, Moderate(Pain Scale 4-6) Last Admin: 07/14/23 02:21 Dose: 2 mg Documented By: JOSE ALFREDO Ondansetron HCl (Ondansetron Hcl 4 Mg/2 Ml Vial) 4 mg IVPUSH Q8H PRN PRN Reason: Nausea and Vomiting Oxycodone HCl (Oxycodone Hcl Immed Release 5 Mg Tablet) 5 mg PO Q6H PRN PRN Reason: Pain, Moderate(Pain Scale 4-6) Last Admin: 07/14/23 08:41 Dose: 5 mg Documented By: MERCEDES Pharmacy Consult (Consult Rx Vancomycin Dosing) 1 each MISCELLANE DAILY PRN PRN Reason: Consult order Sodium Chloride (0.9 % Sodium Chloride Flush 3 Ml Syringe) 3 ml IVFLUSH [facility] Last Admin: 07/14/23 08:30 Dose: 3 ml Documented By: MERCEDES Labs 07/12/23 10:05 07/13/23 13:33 Labs: Laboratory Results - last 24 hr 07/13/23 07/13/23 07/13/23 11:11 13:33 13:34 Hold Purple Top SEE NOTE Estim Creat Clear Calc 110.4 Estimated GFR > 60 POC Glucose 152 H Estimat Average Glucose 163 Hemoglobin A1c % 7.3 H Vancomycin Trough 16.4 07/13/23 07/13/23 07/14/23 16:00 20:01 07:00 Hold Purple Top Estim Creat Clear Calc Estimated GFR POC Glucose 131 H 168 H 134 H Estimat Average Glucose Hemoglobin A1c % Vancomycin Trough Microbiology Microbiology Results: Microbiology 07/12/23 01:07 Blood Culture - Preliminary Blood - Venous No growth after 48 hours. 07/12/23 01:07 Blood Culture - Preliminary Blood - Venous No growth after 48 hours. 07/12/23 Unknown Urine Culture - Final Urine Catheterized - Finnegan Catheter No growth. Assessment and Plan (1) Acute UTI: Status: Acute (2) Cellulitis: Status: Acute Plan This is a 62-year-old male with pertinent history of insulin-dependent type 2 diabetes mellitus, peripheral vascular disease status post right AKA, congestive heart failure with reduced ejection fraction, BPH, mixed hyperlipidemia, gastroesophageal reflux disease presents to the emergency department for evaluation of urinary retention. Acute urinary retention with hematuria Finnegan catheter inserted with CBI stopped, urine now clear Seen by urology>prn irrigation if needed, voiding trial in 2 weeks Will hold antiplatelet agent and anticoagulant for now Sepsis due to acute UTI + left lower extremity cellulitis sepsis resolved urine and blood cultures neg continue IV vancomycin and Zosyn Venous duplex ultrasound negative for DVT Acute lactic acidosis due to sepsis and metformin use Recurrent left lower leg cellulitis with infected diabetic ulcers continue vancomycin and zosyn vascular surgery and wound care pain management, better control Insulin-dependent diabetes mellitus with hyperglycemia ss, ada diet , lantus BPH on Flomax HTN lisinopril Congestive heart failure with reduced ejection fraction On furosemide, beta-opal Peripheral vascular disease: Status post right AKA. Continue high-intensity statin, hold Eliquis and aspirin in the setting of hematuria Mild persistent asthma No exacerbation during admission. Continue home inhalers DVT prophylaxis: Hold Eliquis in the setting of hematuria Attending Dr. Warner Full code DISPO PT rec STR when medically clear continue hospital stay for IV antibiotics (as above), which is not possible in a lesser acute setting. Specialist consults pending Quality Stroke Does the patient have a stroke diagnosis?: No VTE Prior VTE?: No VTE Risk Level:: Medical - moderate - high VTE Device Contraindication: Treatment Not Indicated VTE Drug Contraindication: Treatment Not Indicated
[2023-07-14 11:07] LABS: Glucose, Whole Blood 152 mg/dL (60-115)
--- NOTE | 2023-07-14 11:50 | P.CONGS_ITS ---
History of Present Illness Consult details Consult date: 07/14/23 Reason for consult: wound care Narrative: Very complex 62-year-old gentleman well known to me for recurrent nonhealing left lower extremity ulcers. He is very noncompliant. He had presented to the hospital on June 09 and subsequently June 17. He had been treated with antibiotics and diuresis to assist with the edema seems to be doing better with that. He actually presented to the hospital again this time with hematuria. At the current time this seems to have resolved and he appears to be doing relatively well. Has minimal complaints of that left lower extremity and it appears that it has decreased in swelling and is not a source of discomfort for him at the current time. Review of Systems 2 Review of Systems: Yes all other systems are reviewed and are negative Constitutional: Constitutional: Reports no additional constitutional complaints ENT: Reports Normal hearing present Cardiovascular: Cardiovascular: Denies chest pain, Denies chest pain at rest, Denies chest pain with activity and Denies pedal edema Respiratory: Respiratory: Denies cough Gastrointestinal: Gastrointestinal: Denies abdominal pain Musculoskeletal: Musculoskeletal: Denies abnormal gait, Denies muscle cramps and Denies radiating pain into limb Integumentary/Breasts: Skin/Breast: Denies skin ulcer and Denies wounds Neurologic: Reports Normal hearing present and Denies abnormal gait Psychiatric: Psychiatric: Reports no additional psychiatric complaints PMFSH Past Medical History Medical History (Updated 07/14/23 @ 11:53 by Justin Dia MD) Diabetic ulcer of left lower leg Chronic leg pain PVD (peripheral vascular disease) Type 2 diabetes mellitus PAD (peripheral artery disease) Right above-knee amputee History of right above knee amputation Infection of amputation site of lower extremity BKA stump complication Below-knee amputation of right lower extremity BPH (benign prostatic hyperplasia) Cardiomyopathy CAD (coronary artery disease) History of peripheral vascular disease Coronary artery disease Cardiomyopathy Essential hypertension Type 2 diabetes mellitus with unspecified complications Abscess, perineum Asthma High cholesterol HTN (hypertension) Diabetes Family History Family History Father No problems noted. Mother Diabetes HTN (hypertension) Sister No problems noted. Sister Diabetes HTN (hypertension) Sister No problems noted. Surgical History Surgical History History of surgical removal of pilonidal cyst Hx of hand surgery Hx of hand surgery History of cardiac cath S/P angiogram of extremity Hx of varicose vein stripping Social History Social History Household Members: None Household Members Other:: SELF Housing: Apartment Housing Other:: elderly housing Are you a primary lawn care technician to a significant other at home: No Do you presently have visiting nurse or other home services: Yes (restrooms or lounges maid's) Alcohol intake: never Comment: Refused bed and chair alarm. Patient Tobacco Use Status: Never used Tobacco Tobacco use type: Cigarette Cigarette Packs Per Day: 0.5 Cigarettes Per Day: 2 Years Smoked: 15+ Second Hand Smoke Exposure: No Advance Directives Date on File: 12/10/20 service: No Current occupational status: disabled Meds Allergies Allergy/AdvReac Type Severity Reaction Status Date / Time No Known Allergies Allergy Verified 07/12/23 00:16 Active Medications: Current Medications Acetaminophen (Acetaminophen 325 Mg Tablet) 650 mg PO Q6H PRN PRN Reason: Pain, Mild (Pain Scale 1-3) Last Admin: 07/13/23 02:42 Dose: 650 mg Albuterol/Ipratropium (Albuterol/Iprat 2.5/0.5mg 3 Ml Ampul.Neb) 3 ml INHALE QID PRN PRN Reason: Shortness of Breath/Wheezing Last Admin: 07/14/23 04:41 Dose: 3 ml Atorvastatin Calcium (Atorvastatin Calcium 80 Mg Tablet) 80 mg PO BEDTIME KARI Carvedilol (Carvedilol 25 Mg Tablet) 25 mg PO BID KARI; Protocol Dextrose (Dextrose 50 % 25 Gm/50 Ml Syringe) 25 gm IVPUSH Q15M PRN; Protocol PRN Reason: per Hypoglycemia Standing Ord. Doxazosin Mesylate (Doxazosin Mesylate 2 Mg Tablet) 4 mg PO BEDTIME KARI; Protocol Last Admin: 07/13/23 21:06 Dose: 4 mg Finasteride (Finasteride 5 Mg Tablet) 5 mg PO DAILY KARI Last Admin: 07/14/23 08:41 Dose: 5 mg Furosemide (Furosemide 20 Mg Tablet) 60 mg PO DAILY KARI; Protocol Glucose (Glucose Gel 15 Gm Gel..Gram.) 15 gm PO Q15M PRN; Protocol PRN Reason: per Hypoglycemia Standing Ord. Piperacillin Sod/Tazobactam (Sod 4.5 gm/ Sodium Chloride) 100 mls @ 200 mls/hr IV Q6H [facility] Last Infusion: 07/14/23 09:43 Dose: Infused Vancomycin HCl 1,000 mg/ (Sodium Chloride) 270 mls @ 270 mls/hr IV Q12H [facility] Last Infusion: 07/14/23 04:04 Dose: Infused Insulin Glargine (Insulin Glargine,Hum.Rec.Anlog 100 Unit/Ml 10 Ml Vial) 42 unit SUBCUT BEDTIME [facility] Insulin Human Lispro (Insulin Lispro 100 Unit/Ml 3 Ml Vial) 0 unit SUBCUT QIDACHS [facility]; Protocol Last Admin: 07/14/23 07:21 Dose: Not Given Lisinopril (Lisinopril 10 Mg Tablet) 10 mg PO DAILY [facility]; Protocol Melatonin (Melatonin 3 Mg Tablet) 6 mg PO BEDTIME PRN PRN Reason: Insomnia Morphine Sulfate (Morphine Sulfate 2 Mg/Ml Cartridge) 2 mg IVPUSH Q4H PRN; Protocol PRN Reason: Pain, Moderate(Pain Scale 4-6) Last Admin: 07/14/23 02:21 Dose: 2 mg Ondansetron HCl (Ondansetron Hcl 4 Mg/2 Ml Vial) 4 mg IVPUSH Q8H PRN PRN Reason: Nausea and Vomiting Oxycodone HCl (Oxycodone Hcl Immed Release 5 Mg Tablet) 5 mg PO Q6H PRN PRN Reason: Pain, Moderate(Pain Scale 4-6) Last Admin: 07/14/23 08:41 Dose: 5 mg Pharmacy Consult (Consult Rx Vancomycin Dosing) 1 each MISCELLANE DAILY PRN PRN Reason: Consult order Sodium Chloride (0.9 % Sodium Chloride Flush 3 Ml Syringe) 3 ml IVFLUSH QSHIFT [facility] Last Admin: 07/14/23 08:30 Dose: 3 ml Tamsulosin HCl (Tamsulosin Hcl 0.4 Mg Capsule) 0.4 mg PO BEDTIME [facility] Home Medications Medication Instructions Recorded Confirmed Last Taken Type albuterol sulfate 2.5 mg/3 mL 2.5 mg inhalation Q4H PRN Wheezing 06/04/23 07/12/23 Unknown History (0.083 %) solution for nebulization albuterol sulfate 90 mcg/actuation 2 puff inhalation Q4H PRN wheezing 06/04/23 07/12/23 Unknown History aerosol inhaler (Ventolin HFA) atorvastatin 80 mg tablet 80 mg PO BEDTIME 06/04/23 07/12/23 Unknown History aspirin 81 mg tablet,delayed 81 mg PO DAILY 06/17/23 07/12/23 06/16/23 History release insulin lispro 100 unit/mL 10 unit subcut BID@0800,1200 06/17/23 07/12/23 06/16/23 History subcutaneous pen tamsulosin 0.4 mg capsule 0.4 mg PO BEDTIME 06/17/23 07/12/23 06/16/23 History metformin 1,000 mg tablet 1,000 mg PO BIDWM 06/24/23 07/12/23 Unknown History insulin glargine 100 unit/mL (3 42 unit subcut BEDTIME 07/09/23 07/12/23 Unknown History mL) subcutaneous pen (Lantus Solostar U-100 Insulin) apixaban 5 mg tablet (Eliquis) 5 mg PO BID 07/10/23 07/12/23 Unknown History carvedilol 25 mg tablet 25 mg PO BID 07/10/23 07/12/23 Unknown History ipratropium 20 mcg-albuterol 100 1 puff inhalation QID 07/10/23 07/12/23 Unknown History mcg/actuation mist for inhalation (Combivent Respimat) oxycodone 5 mg tablet 5 mg PO Q4H PRN pain 07/10/23 07/12/23 Unknown History Physical Exam 2 Vital Signs: Vital Signs: Last Vital Signs Temp 96.7 F L 07/14/23 06:50 Pulse 98 07/14/23 06:50 Resp 17 07/14/23 06:50 BP 126/65 07/14/23 06:50 Pulse Ox 97 07/14/23 06:50 O2 Del Method Room Air 07/14/23 06:50 BMI result Body Mass Index 33.9 Const: General: cooperative, healthy appearing and comfortable O rientation/consciousness: oriented to person, oriented to place and oriented to time HEENT: Head: Yes normal to inspection Neck: Neck: Yes normal visual inspection Carotids: no bruits Chest: Chest palpation & inspection: normal inspection of the chest Resp: Effort & Inspection: normal respiratory effort and able to speak in complete sentences Auscultation: clear to auscultation bilaterally, no crackles, no rales, no rhonchi and no wheezes Cardio: Rate: regular rate Rhythm: regular rhythm Heart sounds: S1 normal heart sound present and S2 normal heart sound present Bruits: no carotid bruits Peripheral pulses: Peripheral pulses 2+ throughout GI: Inspection: Yes normal to inspection Skin: Other: Blistering of left lower extremity +2 edema. Wounds: no wounds Hair: normal Neuro: General: oriented to person, oriented to place and oriented to time Cranial nerves: Yes CN's II-XII intact bilaterally and Yes Normal hearing present Cognition (Neuro): normal cognition Motor exam (neuro): 5/5 motor strength present throughout Extrem: Other: venous exam: No significant superficial varicosities or spider telangiectasias, minimal edema General: No clubbing, No cyanosis and No edema Psych: Appearance: grossly normal Mental Status: mental status grossly normal Speech and movement: Normal speech and movement present Results Labs 07/12/23 10:05 07/13/23 13:33 Labs: Abnormal lab results 07/13/23 07/13/23 07/13/23 Range/Units 13:34 16:00 20:01 POC Glucose 131 H 168 H (60-115) mg/dL Hemoglobin A1c % 7.3 H (<6.0) % 07/14/23 07/14/23 Range/Units 07:00 11:00 POC Glucose 134 H 152 H (60-115) mg/dL Hemoglobin A1c % (<6.0) % BMP 07/13/23 13:33 Creatinine 0.73 Urine 07/12/23 Range/Units 00:53 Urine Color Red A Urine Appearance Turbid Urine pH 6.0 (5.0-9.0) Ur Specific [place] 1.020 (1.005-1.025) Urine Protein 300 (3+) H (Neg-Trace) mg/dL Urine Glucose (UA) 250 H (Negative) mg/dL All other labs normal. Assessment and Plan (1) Diabetic ulcer of left lower leg: Status: Acute Plan In short patient has recurrent swelling edema and nonhealing ulcers of the left lower extremity. At the current time it does appear to be stabilized. Would allow hematuria and UTI to resolve. We can treat him as an outpatient. Unfortunately if this continues to recur and we are unable to heal this he is at risk for amputation of the other leg. This may be catastrophic for him. We will try our hardest to try to salvage that leg. Unfortunately his compliance is going to be an issue. We will peripherally follow with you. If discharge can see us as an outpatient. Procedures Date of Service Date of Service: 07/14/23
[2023-07-14] MEDS: Insulin Lispro 100 UNIT/ML 3 ML VIAL SUBCUT ×3 (11:56→21:50)
--- NOTE | 2023-07-14 12:25 | MHC.CM.PN ---
EMR REVIEWED. PER MD ROUNDS PATIENT IS NOT MEDICALLY CLEARED FOR DC. PER PT EVAL FROM 07/10, WHILE IN ER, THEY ARE RECOMMENDING STR. PATIENT DECLINING STR AT THIS TIME AND PREFERS HOME W/ SERVICES. NO RESPONSE FROM [facility]. PATIENT DOES NOT HAVE ANOTHER PREFERENCE. REFERRAL TO [facility]. CM WILL CONTINUE TO FOLLOW.
[2023-07-14 16:19] LABS: Glucose, Whole Blood 201 mg/dL (60-115)
[2023-07-14] MEDS: Doxycycline Hyclate 100 MG in 0.9 % Sodium Chloride 250 ML 166.67 MG IV (17:42)
[2023-07-14 20:20] LABS: Glucose, Whole Blood 176 mg/dL (60-115)
[2023-07-14] MEDS: Doxazosin Mesylate 2 MG TABLET 4 MG PO (21:48)
[2023-07-14] MEDS: Tamsulosin HCL 0.4 MG CAPSULE PO (21:48)
[2023-07-14] MEDS: carvediloL 25 MG TABLET PO (21:48)
[2023-07-14] MEDS: Atorvastatin Calcium 80 MG TABLET PO (21:48)
[2023-07-14] MEDS: Insulin Glargine,Hum.rec.anlog 100 UNIT/ML 10 ML VIAL 42 UNIT SUBCUT (21:49)
--- NOTE | 2023-07-14 22:46 | PC.NURSE ---
Lab just called regarding todays AM labs refused by the patient with questions if they can be cancelled. This nurse was not here this morning and it is 22:50 right now, since patient refused them in the morning I don't see any other way but to cancel. Night hospitalist notified.
[2023-07-15 03:30] VITALS: BP 100/57; PULSE 76; RESP 18; TEMP 36.2; O2SAT 98
[2023-07-15] MEDS: Morphine Sulfate 2 MG/ML CARTRIDGE IVPUSH ×4 (03:37→19:39)
[2023-07-15] MEDS: Doxycycline Hyclate 100 MG in 0.9 % Sodium Chloride 250 ML 166.67 MG IV ×2 (05:48→17:35)
[2023-07-15 07:32] VITALS: BP 104/53; PULSE 73; RESP 18; TEMP 36.1; O2SAT 98
[2023-07-15 07:32] LABS: Glucose, Whole Blood 81 mg/dL (60-115)
[2023-07-15] MEDS: Furosemide 20 MG TABLET 60 MG PO (08:46)
[2023-07-15] MEDS: carvediloL 25 MG TABLET PO ×2 (08:47→19:40)
[2023-07-15] MEDS: lisinopriL 10 MG TABLET PO (08:47)
[2023-07-15] MEDS: Finasteride 5 MG TABLET PO (08:47)
[2023-07-15 11:40] LABS: Glucose, Whole Blood 83 mg/dL (60-115)
[2023-07-15 11:41] VITALS: PULSE 73; RESP 18; O2SAT 98
[2023-07-15] MEDS: Albuterol/Iprat 2.5/0.5MG 3 ML AMPUL.NEB INHALE (11:41)
[2023-07-15 15:39] VITALS: BP 129/63; PULSE 69; RESP 18; TEMP 36.6; O2SAT 99
--- NOTE | 2023-07-15 15:45 | MHC.CM.PN ---
CM met with patient at bedside to coordinate teach for HAT [employer]ER to learn dressing changes, as initial wound care note recommends daily dressing changes and [facility] will not be able to accommodate. However, patient revealed that his HAT STEAMER quit as of yesterday and he does not have a HAT STEAMER at this time. His neighbor Maryam can assist when she is able, but states she is unable to do dressing changes. Spoke with oven laborer who states that dressing change frequency can change to every other day after dc. CM LM for Olga Tomas at [facility] to confirm status of HAT STEAMER. Also sent [facility] referral in [facility]. Patient states he would be willing to go to [facility] if no HAT STEAMER is available. Will wait to hear from [facility].
--- NOTE | 2023-07-15 16:25 | HO.PM.IMPN ---
Subjective Subjective Date of Service: 07/15/23 Interval History: seen and examined this morning follow up for urinary retention, cellulitis no overnight events history obtained with the assistance of a machine attendant feeling better today Review of Systems Review of Systems: Yes all other systems are reviewed and are negative Constitutional Constitutional: Denies chills and Denies fever(s) Cardiovascular Cardiovascular: Denies chest pain and Denies dyspnea Respiratory Respiratory: Denies dyspnea Gastrointestinal Gastrointestinal: Denies abdominal pain Physical Exam Vital Signs: Vital Signs: Last Vital Signs Temp 97.8 F 07/15/23 15:39 Pulse 69 07/15/23 15:39 Resp 18 07/15/23 15:39 BP 129/63 07/15/23 15:39 Pulse Ox 99 07/15/23 15:39 O2 Del Method Room Air 07/15/23 15:39 BMI result Body Mass Index 33.9 Const: General: cooperative, comfortable, no acute distress, alert and awake Nutritional Appearance: overweight Orientation/consciousness: patient oriented x3 Resp: Effort & Inspection: normal respiratory effort, able to speak in complete sentences, no respiratory distress and no use of accessory muscles Cardio: Rate: regular rate GI: Inspection: No distended Palpation (GI): Soft to palpation and nontender : Other: scrotal swelling; ochoa in place draining yellow urine Neuro: General: patient oriented x3 Objective Data Active Medications Acetaminophen (Acetaminophen 325 Mg Tablet) 650 mg PO Q6H PRN PRN Reason: Pain, Mild (Pain Scale 1-3) Last Admin: 07/13/23 02:42 Dose: 650 mg Documented By: ANNY Albuterol/Ipratropium (Albuterol/Iprat 2.5/0.5mg 3 Ml Ampul.Neb) 3 ml INHALE QID PRN PRN Reason: Shortness of Breath/Wheezing Last Admin: 07/15/23 11:41 Dose: 3 ml Documented By: ESTIVEN Atorvastatin Calcium (Atorvastatin Calcium 80 Mg Tablet) 80 mg PO BEDTIME [facility] Last Admin: 07/14/23 21:48 Dose: 80 mg Documented By: ANNY Carvedilol (Carvedilol 25 Mg Tablet) 25 mg PO BID KARI; Protocol Last Admin: 07/15/23 08:47 Dose: 25 mg Documented By: PAMELA Dextrose (Dextrose 50 % 25 Gm/50 Ml Syringe) 25 gm IVPUSH Q15M PRN; Protocol PRN Reason: per Hypoglycemia Standing Ord. Doxazosin Mesylate (Doxazosin Mesylate 2 Mg Tablet) 4 mg PO BEDTIME KARI; Protocol Last Admin: 07/14/23 21:48 Dose: 4 mg Documented By: ANNY Finasteride (Finasteride 5 Mg Tablet) 5 mg PO DAILY [facility] Last Admin: 07/15/23 08:47 Dose: 5 mg Documented By: PAMELA Furosemide (Furosemide 20 Mg Tablet) 60 mg PO DAILY [facility]; Protocol Last Admin: 07/15/23 08:46 Dose: 60 mg Documented By: PAMELA Glucose (Glucose Gel 15 Gm Gel..Gram.) 15 gm PO Q15M PRN; Protocol PRN Reason: per Hypoglycemia Standing Ord. Piperacillin Sod/Tazobactam (Sod 4.5 gm/ Sodium Chloride) 100 mls @ 200 mls/hr IV Q6H [facility] Last Admin: 07/15/23 14:47 Dose: 200 mls/hr Documented By: PAMELA Doxycycline Hyclate 100 mg/ (Sodium Chloride) 250 mls @ 166.67 mls/hr IV Q12H [facility] Last Infusion: 07/15/23 07:40 Dose: Infused Documented By: PAMELA Insulin Glargine (Insulin Glargine,Hum.Rec.Anlog 100 Unit/Ml 10 Ml Vial) 42 unit SUBCUT BEDTIME [facility] Last Admin: 07/14/23 21:49 Dose: 42 unit Documented By: ANNY Insulin Human Lispro (Insulin Lispro 100 Unit/Ml 3 Ml Vial) 0 unit SUBCUT QIDACHS [facility]; Protocol Last Admin: 07/15/23 11:51 Dose: Not Given Documented By: PAMELA Non-Admin Reason: No Insulin Coverage Lisinopril (Lisinopril 10 Mg Tablet) 10 mg PO DAILY [facility]; Protocol Last Admin: 07/15/23 08:47 Dose: 10 mg Documented By: PAMELA Melatonin (Melatonin 3 Mg Tablet) 6 mg PO BEDTIME PRN PRN Reason: Insomnia Morphine Sulfate (Morphine Sulfate 2 Mg/Ml Cartridge) 2 mg IVPUSH Q4H PRN; Protocol PRN Reason: Pain, Moderate(Pain Scale 4-6) Last Admin: 07/15/23 14:43 Dose: 2 mg Documented By: PAMELA Ondansetron HCl (Ondansetron Hcl 4 Mg/2 Ml Vial) 4 mg IVPUSH Q8H PRN PRN Reason: Nausea and Vomiting Oxycodone HCl (Oxycodone Hcl Immed Release 5 Mg Tablet) 5 mg PO Q6H PRN PRN Reason: Pain, Moderate(Pain Scale 4-6) Last Admin: 07/14/23 23:13 Dose: 5 mg Documented By: ANNY Sodium Chloride (0.9 % Sodium Chloride Flush 3 Ml Syringe) 3 ml IVFLUSH QSHIFT [facility] Last Admin: 07/15/23 09:13 Dose: Not Given Documented By: PAMELA Non-Admin Reason: Previously Administered Tamsulosin HCl (Tamsulosin Hcl 0.4 Mg Capsule) 0.4 mg PO BEDTIME [facility] Last Admin: 07/14/23 21:48 Dose: 0.4 mg Documented By: ANNY Labs 07/12/23 10:05 07/13/23 13:33 Labs: Laboratory Results - last 24 hr 07/14/23 07/15/23 07/15/23 20:15 07:28 11:31 POC Glucose 176 H 81 83 Assessment and Plan (1) Cellulitis: Status: Acute Plan This is a 62-year-old male with pertinent history of insulin-dependent type 2 diabetes mellitus, peripheral vascular disease status post right AKA, congestive heart failure with reduced ejection fraction, BPH, mixed hyperlipidemia, gastroesophageal reflux disease presents to the emergency department for evaluation of urinary retention. Acute urinary retention with hematuria Ochoa catheter inserted with CBI stopped, urine now clear Seen by urology>prn irrigation if needed, voiding trial in 2 weeks started on cardura and proscar. on flomax at baseline Will hold antiplatelet agent and anticoagulant for now - will discuss with urology for timeline to resume Sepsis due to acute UTI + left lower extremity cellulitis sepsis resolved urine and blood cultures neg continue IV vancomycin and Zosyn Venous duplex ultrasound negative for DVT Acute lactic acidosis due to sepsis and metformin use Recurrent left lower leg cellulitis with infected diabetic ulcers continue vancomycin and zosyn will need outpatient follow up with vascular surgery seen by wound care nurse - see full note for wound care recs Insulin-dependent diabetes mellitus with hyperglycemia BS under better control ss, ada diet , lantus HTN lisinopril Congestive heart failure with reduced ejection fraction continue furosemide, beta-opal Peripheral vascular disease: Status post right AKA. Continue high-intensity statin, hold Eliquis and aspirin in the setting of hematuria Mild persistent asthma No exacerbation during admission. Continue home inhalers DVT prophylaxis: Hold Eliquis in the setting of hematuria Attending Dr. Royal Full code DISPO PT rec STR when medically clear continue hospital stay for IV antibiotics (as above), which is not possible in a lesser acute setting. Quality Stroke Does the patient have a stroke diagnosis?: No VTE Prior VTE?: No VTE Risk Level:: Medical - moderate - high VTE Device Contraindication: Treatment Not Indicated VTE Drug Contraindication: Treatment Not Indicated
[2023-07-15 16:35] LABS: Glucose, Whole Blood 105 mg/dL (60-115)
[2023-07-15] MEDS: oxyCODONE HCl Immed Release 5 MG TABLET PO (17:35)
[2023-07-15] MEDS: Acetaminophen 325 MG TABLET 650 MG PO (17:35)
[2023-07-15] MEDS: Tamsulosin HCL 0.4 MG CAPSULE PO (19:40)
[2023-07-15] MEDS: Doxazosin Mesylate 2 MG TABLET 4 MG PO (19:41)
[2023-07-15] MEDS: Atorvastatin Calcium 80 MG TABLET PO (19:41)
[2023-07-15 19:43] VITALS: BP 107/61; PULSE 70; RESP 18; TEMP 36.3; O2SAT 98
[2023-07-15 20:17] LABS: Glucose, Whole Blood 98 mg/dL (60-115)
[2023-07-15] MEDS: Insulin Glargine,Hum.rec.anlog 100 UNIT/ML 10 ML VIAL 42 UNIT SUBCUT (21:41)
[2023-07-16] MEDS: Morphine Sulfate 2 MG/ML CARTRIDGE IVPUSH ×4 (01:46→15:28)
[2023-07-16] MEDS: oxyCODONE HCl Immed Release 5 MG TABLET PO ×2 (02:33→07:26)
[2023-07-16 03:34] VITALS: BP 102/62; PULSE 61; RESP 18; TEMP 36.1; O2SAT 99
[2023-07-16] MEDS: Doxycycline Hyclate 100 MG in 0.9 % Sodium Chloride 250 ML 166.67 MG IV (06:29)
[2023-07-16] MEDS: Furosemide 20 MG TABLET 60 MG PO (07:27)
[2023-07-16] MEDS: Finasteride 5 MG TABLET PO (07:27)
[2023-07-16] MEDS: Acetaminophen 325 MG TABLET 650 MG PO (07:27)
[2023-07-16] MEDS: carvediloL 25 MG TABLET PO (07:27)
[2023-07-16] MEDS: lisinopriL 10 MG TABLET PO (07:27)
[2023-07-16 07:31] VITALS: BP 109/66; PULSE 65; RESP 20; TEMP 36.4; O2SAT 100
[2023-07-16 07:46] LABS: Glucose, Whole Blood 113 mg/dL (60-115)
[2023-07-16 09:32] LABS: Creatinine Clr Calc Pharmacy 94.8; Estimated Glomerular Filt Rate > 60
[2023-07-16 11:19] LABS: Glucose, Whole Blood 155 mg/dL (60-115)
[2023-07-16] MEDS: Insulin Lispro 100 UNIT/ML 3 ML VIAL SUBCUT (11:52)
[2023-07-16] MEDS: Piperacillin Sodium/Tazobactam 4.5 GM in 0.9 % Sodium Chloride 100 ML IV (11:52)
--- NOTE | 2023-07-16 12:54 | HO.PM.IMPN ---
Subjective Subjective Date of Service: 07/16/23 Interval History: seen and examined this morning follow up for cellulitis, urinary /hematuria History obtained with the assistance of a logging equipment operator No specific complaints Physical Exam Vital Signs: Vital Signs: Last Vital Signs Temp 97.5 F 07/16/23 07:31 Pulse 65 07/16/23 07:31 Resp 20 07/16/23 07:31 BP 109/66 07/16/23 07:31 Pulse Ox 100 07/16/23 07:31 O2 Del Method Room Air 07/16/23 07:31 BMI result Body Mass Index 33.9 Objective Data Active Medications Acetaminophen (Acetaminophen 325 Mg Tablet) 650 mg PO Q6H PRN PRN Reason: Pain, Mild (Pain Scale 1-3) Last Admin: 07/16/23 07:27 Dose: 650 mg Documented By: NANCY Albuterol/Ipratropium (Albuterol/Iprat 2.5/0.5mg 3 Ml Ampul.Neb) 3 ml INHALE QID PRN PRN Reason: Shortness of Breath/Wheezing Last Admin: 07/15/23 11:41 Dose: 3 ml Documented By: ESTIVEN Atorvastatin Calcium (Atorvastatin Calcium 80 Mg Tablet) 80 mg PO BEDTIME [facility] Last Admin: 07/15/23 19:41 Dose: 80 mg Documented By: ANNY Carvedilol (Carvedilol 25 Mg Tablet) 25 mg PO BID [facility]; Protocol Last Admin: 07/16/23 07:27 Dose: 25 mg Documented By: NANCY Dextrose (Dextrose 50 % 25 Gm/50 Ml Syringe) 25 gm IVPUSH Q15M PRN; Protocol PRN Reason: per Hypoglycemia Standing Ord. Doxazosin Mesylate (Doxazosin Mesylate 2 Mg Tablet) 4 mg PO BEDTIME [facility]; Protocol Last Admin: 07/15/23 19:41 Dose: 4 mg Documented By: ANNY Finasteride (Finasteride 5 Mg Tablet) 5 mg PO DAILY [facility] Last Admin: 07/16/23 07:27 Dose: 5 mg Documented By: NANCY Furosemide (Furosemide 20 Mg Tablet) 60 mg PO DAILY [facility]; Protocol Last Admin: 07/16/23 07:27 Dose: 60 mg Documented By: NANCY Glucose (Glucose Gel 15 Gm Gel..Gram.) 15 gm PO Q15M PRN; Protocol PRN Reason: per Hypoglycemia Standing Ord. Doxycycline Hyclate 100 mg/ (Sodium Chloride) 250 mls @ 166.67 mls/hr IV Q12H [facility] Last Infusion: 07/16/23 10:27 Dose: Infused Documented By: PAMELA Piperacillin Sod/Tazobactam (Sod 4.5 gm/ Sodium Chloride) 100 mls @ 200 mls/hr IV Q6H [facility] Last Infusion: 07/16/23 12:38 Dose: Infused Documented By: PAMELA Insulin Glargine (Insulin Glargine,Hum.Rec.Anlog 100 Unit/Ml 10 Ml Vial) 42 unit SUBCUT BEDTIME [facility] Last Admin: 07/15/23 21:41 Dose: 42 unit Documented By: ANNY Insulin Human Lispro (Insulin Lispro 100 Unit/Ml 3 Ml Vial) 0 unit SUBCUT QIDACHS [facility]; Protocol Last Admin: 07/16/23 11:52 Dose: 2 unit Documented By: PAMELA Lisinopril (Lisinopril 10 Mg Tablet) 10 mg PO DAILY [facility]; Protocol Last Admin: 07/16/23 07:27 Dose: 10 mg Documented By: NANCY Melatonin (Melatonin 3 Mg Tablet) 6 mg PO BEDTIME PRN PRN Reason: Insomnia Morphine Sulfate (Morphine Sulfate 2 Mg/Ml Cartridge) 2 mg IVPUSH Q4H PRN; Protocol PRN Reason: Pain, Moderate(Pain Scale 4-6) Last Admin: 07/16/23 11:52 Dose: 2 mg Documented By: PAMELA Ondansetron HCl (Ondansetron Hcl 4 Mg/2 Ml Vial) 4 mg IVPUSH Q8H PRN PRN Reason: Nausea and Vomiting Oxycodone HCl (Oxycodone Hcl Immed Release 5 Mg Tablet) 5 mg PO Q6H PRN PRN Reason: Pain, Moderate(Pain Scale 4-6) Last Admin: 07/16/23 07:26 Dose: 5 mg Documented By: NANCY Sodium Chloride (0.9 % Sodium Chloride Flush 3 Ml Syringe) 3 ml IVFLUSH QSHIFT [facility] Last Admin: 07/16/23 07:27 Dose: Not Given Documented By: NANCY Non-Admin Reason: IV Running Tamsulosin HCl (Tamsulosin Hcl 0.4 Mg Capsule) 0.4 mg PO BEDTIME [facility] Last Admin: 07/15/23 19:40 Dose: 0.4 mg Documented By: ANNY Labs 07/12/23 10:05 07/16/23 08:45 Labs: Laboratory Results - last 24 hr 07/15/23 07/15/23 07/16/23 16:30 20:13 07:34 Hold Purple Top Estim Creat Clear Calc Estimated GFR POC Glucose 105 98 113 07/16/23 07/16/23 08:45 11:14 Hold Purple Top SEE NOTE Estim Creat Clear Calc 94.8 Estimated GFR > 60 POC Glucose 155 H Quality Stroke Does the patient have a stroke diagnosis?: No VTE Prior VTE?: No VTE Risk Level:: Medical - moderate - high VTE Device Contraindication: Treatment Not Indicated VTE Drug Contraindication: Treatment Not Indicated
--- NOTE | 2023-07-16 13:17 | MHC.CM.PN ---
pt to be transported today at [facility] home with hvns and a dean of boys thru [facility]
--- NOTE | 2023-07-16 13:44 | PM.DS ---
DS: Providers Provider Date of Service: 07/16/23 Date of admission: 07/12/23 01:43 Date of discharge: 07/16/23 Primary care physician: Tanvir Melendez MD Consults: 07/12/23 01:41 Consult to Urology Routine Consulting Provider: Yo Baldwin Reason for consultation: Hematuria with urinary retention 07/12/23 02:03 Consult to Vascular Surgery Routine Consulting Provider: [facility] Reason for consultation: Peripheral vascular disease 07/12/23 07:57 Consult to Wound Care Routine Reason for consultation: LE cellulitis Attending physician on discharge: Juan Antonio [facility] Discharging clinician: Loli Marie DS: Diagnosis Discharge Diagnosis (1) Cellulitis: Status: Acute DS: Summary Hospital Course Hospital Course: From H&P on day of admission This is a 62-year-old male with pertinent history of insulin-dependent type 2 diabetes mellitus, peripheral vascular disease status post right AKA, congestive heart failure with reduced ejection fraction, BPH, mixed hyperlipidemia, gastroesophageal reflux disease presents to the emergency department as he was unable to pee. Patient was seen in the ER 3 days prior to presentation and was prescribed p.o. antibiotics for UTI. Noted that patient is extremely noncompliant with medications and treatment. Patient states he had difficulty with urination along with lower abdominal pain. Patient does endorse fevers and chills. Also admits excessive purulent drainage from his left lower extremity ulcers. No chest discomfort, palpitations, shortness of breath, changes in bowel habits. In the emergency department, about 700 cc urine obtained in the ER upon insertion of Ochoa catheter. Also hematuria was noted with clots. Patient was found to be septic Acute urinary retention with hematuria Ochoa catheter inserted, s/p CBI urine now clear. Seen by urology, recommend voiding trial in 2 weeks. started on cardura and proscar. on flomax at baseline. aspirin and Eliquis placed on hold. Plan to stop Eliquis and resume aspirin after one week. Sepsis due to left lower extremity cellulitis sepsis resolved. urine and blood cultures neg Recurrent left lower leg cellulitis with infected diabetic ulcers treated with IV docycycline and zosyn. seen by vascular surgery- plan for outpatient follow up . seen by wound care nurse - see full note for wound care recs, recommend outpatient follow up in wound care clinic. patient was diagnosed to have nonocclusive thrombus in the left peroneal vein on 07/04 at outside hospital and was started on Eliquis. US from 07/09, 07/15 does not show evidence of thrombus or clot. discussed with vascular, recommend to stop AC. outpatient follow up with vascular surgery PT recommended patient go to [facility] however patient declined and elected to return home with [employer] SCIENCE [employer]IST and VNA services Time Attestation Discharge coordination time: Greater than 30 minutes Quality: Safe Use of Opioids Does Pt have an Active Cancer Diagnosis on the Problem List?: No Quality: Stroke Does the patient have a stroke diagnosis?: No Physical Exam Vital Signs: Vital Signs: Last Vital Signs Temp 97.5 F 07/16/23 07:31 Pulse 65 07/16/23 07:31 Resp 20 07/16/23 07:31 BP 109/66 07/16/23 07:31 Pulse Ox 100 07/16/23 07:31 O2 Del Method Room Air 07/16/23 07:31 BMI result Body Mass Index 33.9 Const: General: cooperative, comfortable, no acute distress, alert and awake Nutritional Appearance: overweight Orientation/consciousness: patient oriented x3 Resp: Effort & Inspection: normal respiratory effort, able to speak in complete sentences, no respiratory distress and no use of accessory muscles Cardio: Rate: regular rate GI: Inspection: No distended Palpation (GI): Soft to palpation and nontender : Other: scrotal swelling; ochoa in place draining yellow urine Neuro: General: patient oriented x3 DS: Data Data Completed and Pending Completed studies during hospitalization [Text1]: Procedures Detachment at Right Lower Leg, Mid, Open Approach (12/21/22) Detachment at Right Upper Leg, Mid, Open Approach (03/16/23) Drainage of Perineum Skin, External Approach (12/10/20) Excision of Right Upper Leg Muscle, Open Approach (01/14/23) Insertion of Infusion Device into Superior Vena Cava, Percutaneous Approach (01/14/23) Introduction of Anesthetic Agent into Peripheral Nerves and Plexi, Percutaneous Approach (01/14/23) Ultrasonography of Superior Vena Cava, Guidance (01/14/23) Labs on day of discharge: Laboratory Results - last 24 hr 07/15/23 07/15/23 07/16/23 16:30 20:13 07:34 Hold Purple Top Creatinine Estim Creat Clear Calc Estimated GFR POC Glucose 105 98 113 07/16/23 07/16/23 08:45 11:14 Hold Purple Top SEE NOTE Creatinine 0.85 Estim Creat Clear Calc 94.8 Estimated GFR > 60 POC Glucose 155 H Preliminary micro results at discharge 07/12/23 01:07 Blood Culture - Preliminary Blood - Venous No growth after 48 hours. 07/12/23 01:07 Blood Culture - Preliminary Blood - Venous No growth after 48 hours. Discharge Plan Discharge Anticipated Discharge Date/Time: 07/16/23 14:30 Patient Disposition: Home Health Service Discharge Diagnosis: cellulitis/venous wounds Urinary retention Hematuria Referrals: [facility] [Other] - 1 Week Yo Baldwin MD [Physician] - 2 Weeks Tanvir Melendez MD [Primary Care Provider] - 1 Week Justin Dia MD [Physician] - 1 Week Lety Nagel MD [Physician] - 1 Week Discharge Medications: New doxazosin 2 mg Tablet 4 mg PO BEDTIME 30 Days Qty: 60 0RF Protocol: Hold for SBP< HOLD for SBP < : 90 finasteride 5 mg Tablet 5 mg PO DAILY 30 Days Qty: 30 0RF doxycycline monohydrate 100 mg tablet 100 mg PO BID 5 Days Qty: 10 0RF amoxicillin-pot clavulanate 875-125 mg tablet 1 tab PO Q12H 5 Days Qty: 10 0RF Continued atorvastatin 80 mg tablet 80 mg PO BEDTIME albuterol sulfate 2.5 mg /3 mL (0.083 %) solution for nebulization 2.5 mg inhalation Q4H PRN (Reason: Wheezing) albuterol sulfate [Ventolin HFA] 90 mcg/actuation HFA aerosol inhaler 2 puff INHALATION Q4H PRN (Reason: wheezing) insulin glargine [Lantus Solostar U-100 Insulin] 100 unit/mL (3 mL) insulin pen 42 unit subcut BEDTIME oxycodone 5 mg tablet 5 mg PO Q4H PRN (Reason: pain) carvedilol 25 mg tablet 25 mg PO BID Combivent Respimat 20-100 mcg/actuation mist 1 puff INHALATION QID tamsulosin 0.4 mg capsule 0.4 mg PO BEDTIME lisinopril 10 mg Tablet 10 mg PO DAILY Qty: 30 0RF Protocol: Hold for SBP< HOLD for SBP < : 90 furosemide 20 mg tablet 60 mg PO DAILY Qty: 90 0RF metformin 1,000 mg Tablet 1,000 mg PO BIDWM Held aspirin 81 mg tablet,delayed release (DR/EC) 81 mg PO DAILY Hold Instructions: resume 07/19 insulin lispro 100 unit/mL insulin pen 10 unit subcut BID@0800,1200 Hold Instructions: blood sugar has been controlled with lantus in the hospital. monitor blood sugars and resume as needed Rx Instructions: TWICE A DAY AT BREAKFAST AND LUNCH Discontinued Eliquis 5 mg tablet 5 mg PO BID Rx Instructions: START 5 MG BID ON 07/11/23 Discharge Orders: Discharge Order (Routine); Ordered 07/16/23 Ordered By: Loli Marie Diet: Diabetic diet Activity on Discharge: As tolerated Stand Alone Forms: Patient Portal Discharge page Activity Restrictions/Additional Instructions: Topical Wound Care Recommendations: 1. Maintain blood glucose levels per Providers orders. 2. Left Lower Leg - Elevate Lower Leg - Cleanse with NS, Pat dry. Apply Vaseline to lower leg. Cover wound bed with cut to size Alginate, cover with ABD pad, Gauze wrap. Change every other day. Recommend follow up out patient Wound Clinic at [address] [place] [id number] and to call for an appointment at time of discharge. [phone].? Care Plan Goals: see below Health Concerns: urinary retention hematuria left leg cellulitis Plan of Treatment: urinary retention - keep ochoa in place for two weeks. started on cardura and proscar. will need to schedule a follow up appointment with urology for voiding trial hematuria - aspirin has been on hold, resume on the left leg cellulitis - complete course of antibiotics as prescribed and call to schedule a follow up appointment with Dr. Dia of vascular surgery and in the wound care clinic. For wound care: Cleanse with NS, Pat dry. Apply Vaseline to lower leg. Cover wound bed with cut to size Alginate, cover with ABD pad, Gauze wrap. Change Daily if able or every other day. monitor blood sugars before meals and at bedtime. follow diabetic diet stop taking Eliquis- two US negative for DVT call to schedule follow up appointment with PCP Assessment: see discharge summary
--- NOTE | 2023-07-16 14:56 | P.F2F_ITS ---
Service Date Service Date: 07/16/23 Encounter Date of encounter: 07/16/23 Reasons for Services Signs and symptoms assessed: needs senior living for monitoring of blood sugar and dressing changes every other day: Left Lower Leg - Cleanse with NS, Pat dry. Apply Vaseline to lower leg. Cover wound bed with cut to size Alginate, cover with ABD pad, Gauze wrap. Reason for senior living: wound care and diabetic teaching MD Overseeing Care: Tanvir Melendez Homebound: Leaving the home is medically contraindicated at this time without the asist of a device and/or another person due th the listed conditions above and below. Reason homebound: unsteady gait / fall risk Certification: Based on the above findings, I certify that this patient is confined to the home and needs intermittent senior living care, physical therapy and/or speech therapy, or continues to need occupational therapy. The patient is under my care, and I have initiated the establishment of the plan of care. The patient will be followed by a physician who will periodically review the plan of care. Time Spent With Patient Time: Total time managing care of this patient today ____ minutes.
--- NOTE | 2023-07-16 15:30 | HO.WOUND ---
Wound Consult: Follow up 62yr old male admitted to [facility] on?07/12/23 01:43 - See progress notes and H&P for detailed history. Todays follow up was dressing change and topical recommendations for home care treatment. 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 Initial introductions completed patient was resistant to discharge - he expressed extreme concern for lack of food at home and concern for availability to obtain food given the time of his discharge. This concern was communicated to direct care nurse and case mgt both are aware and reports pt will have FLATWORK TIER to begin tomorrow and VNA services to begin Wednesday. After discussion pt rapidly has a change of heart and reports there is no concern he will be able to get to a gas station and subway for food this evening. Via cigarette tester he reports no questions or concerns. Pt did not appear to have capacity for wound dressing teaching - the patient did not listen nor appear to follow along with conversation when discussing dressing changes. Teaching was limited based on patient understanding. No new topical recommendations needed at this time may continue with alginate dressing. Of note Alginate Ag can stay in place for up to 5 days, patient advised that this dressing is ok to remain in place until Wednesday when VNA is scheduled to see him and perform dressing changes. There after the wound bed would benefit from every other day dressing change. Left Lower Leg Etiology: Venous Wound Wound Bed: Adherent yellow slough Drainage / Odor: yellow moist drainage Edges: ?irregular Tresa wound: [place] and hemosiderin staining - evidence of recent swelling No Induration, Fluctuance or Warmth noted Pain: reports with cleansing Goals of Treatment: ? Alginate for moisture management and autolytic debridement Pt will benefit from VNA services and Out Patient Wound Care Follow up at time of D/C. Recommendations: 1. Turn and Reposition every 2 hours and as needed for patient comfort.? Use pillows or wedges to support off loading positions. 2. Off Load all bony prominences with use of pillows and heel boots if needed.? Apply Preventative foams where needed. ? 3. Monitor for incontinence and moisture control, use barrier creams when needed for prevention and treatment. 4. Provide adequate and supplemental nutrition. 5. Order or Continue low air loss mattress. 6. Maintain blood glucose levels per Providers orders. 7. Left Lower Leg - Elevate Lower Leg - Cleanse with NS, Pat dry. Apply Vaseline to lower leg. Cover wound bed with cut to size Alginate, cover with ABD pad, Gauze wrap. Change every other day. Recommend follow up out patient Wound Clinic at [address] [place] [id number] and to call for an appointment at time of discharge. [phone].? Re-consult wound care Nurse for wound deterioration or wound changes.
[2023-07-16 15:39] VITALS: BP 111/64; PULSE 71; RESP 18; TEMP 36.6; O2SAT 99
[2023-07-16 16:17] LABS: Glucose, Whole Blood 107 mg/dL (60-115)
== END 2023-07-16 18:08 | disposition home health service (06) | DRG 720 ==
LOC: HO.ED 01:44 → HO.EDOVER 01:55 → HO.S3 17:11
PROVIDERS: Nurse Practitioner Acute Care; Urology; Admitting Provider Student in an Organized Health Care Education/Training Program; Emergency Provider Emergency Medicine Emergency Medical Services; PCP Internal Medicine; Visit Provider Physician Assistant Medical
DX: A41.9 Sepsis, unspecified organism (principal); E87.21 Acute metabolic acidosis; E11.51 Type 2 diabetes mellitus with diabetic peripheral angiopathy without gangrene; E11.628 Type 2 diabetes mellitus with other skin complications; I50.22 Chronic systolic (congestive) heart failure; L03.115 Cellulitis of right lower limb; K21.9 Gastro-esophageal reflux disease without esophagitis; R31.9 Hematuria, unspecified; N39.0 Urinary tract infection, site not specified; E11.65 Type 2 diabetes mellitus with hyperglycemia; L97.829 Non-pressure chronic ulcer of other part of left lower leg with unspecified severity; I70.248 Atherosclerosis of native arteries of left leg with ulceration of other part of lower leg; J45.30 Mild persistent asthma, uncomplicated; N40.1 Benign prostatic hyperplasia with lower urinary tract symptoms; R33.8 Other retention of urine; L03.116 Cellulitis of left lower limb; I25.10 Atherosclerotic heart disease of native coronary artery without angina pectoris; E78.2 Mixed hyperlipidemia; Z20.822 Contact with and (suspected) exposure to COVID-19; Z91.148 Patient's other noncompliance with medication regimen for other reason; Z86.718 Personal history of other venous thrombosis and embolism; Z89.611 Acquired absence of right leg above knee; Z79.82 Long term (current) use of aspirin; Z79.4 Long term (current) use of insulin; Z79.84 Long term (current) use of oral hypoglycemic drugs; Z79.899 Other long term (current) drug therapy
CPT/HCPCS: 0241U; 36415; 80048; 80076; 80202; 81001; 82565; 82947; 83036; 83605; 83690; 85025; 87040; 87086; 93971; 94640; 99285; C1758; J0696; J2270; J2543; J3370

== ENCOUNTER → 2023-07-12 01:43 | Outpatient (BNV) | payer MEDICAID, SELFPAY | PROVIDERS: Admitting Provider Student in an Organized Health Care Education/Training Program; Emergency Provider Emergency Medicine Emergency Medical Services; Visit Provider Student in an Organized Health Care Education/Training Program | DX: L03.90 Cellulitis, unspecified (principal) | CPT/HCPCS: 99223; 99232; 99239; 99499; G0180 ==

== ENCOUNTER → 2023-07-12 01:43 | Outpatient (BNV) | payer MEDICAID, SELFPAY | PROVIDERS: Admitting Provider Student in an Organized Health Care Education/Training Program; Emergency Provider Emergency Medicine Emergency Medical Services; PCP Internal Medicine; Visit Provider Surgery Vascular Surgery | DX: E11.622 Type 2 diabetes mellitus with other skin ulcer (principal); L97.929 Non-pressure chronic ulcer of unspecified part of left lower leg with unspecified severity; Z89.611 Acquired absence of right leg above knee | CPT/HCPCS: 99222 ==

== ENCOUNTER → 2023-07-12 01:43 | Outpatient (BNV) | payer MEDICAID, SELFPAY | PROVIDERS: Admitting Provider Student in an Organized Health Care Education/Training Program; Emergency Provider Emergency Medicine Emergency Medical Services; PCP Internal Medicine; Visit Provider Urology | DX: N39.0 Urinary tract infection, site not specified (principal); R33.9 Retention of urine, unspecified; N40.1 Benign prostatic hyperplasia with lower urinary tract symptoms; N13.8 Other obstructive and reflux uropathy; N32.89 Other specified disorders of bladder | CPT/HCPCS: 51700; 99222 ==

== ENCOUNTER 2023-07-17 00:51 | Emergency (ER) | payer MEDICAID, SELFPAY ==
--- NOTE | ~2023-07-17 | XR_ITS ---
EXAMINATION: XR ABDOMEN KUB CLINICAL INDICATION: constipation COMPARISON: 12/10/2020 TECHNIQUE: AP view of the abdomen. FINDINGS: Moderate to large volume of stool is present in the colon. Nondilated bowel gas pattern. Atelectasis is present in the left lung base. No appreciable radiodense renal calculi. Stents are present in the common iliac arteries. Degenerative disc disease is present in the lumbar spine. Osteoarthritis is noted in the hips. XR/XR KUB IMPRESSION: Moderate to large volume of stool in the colon.
[2023-07-17 01:11] VITALS: BP 120/82; PULSE 81; RESP 18; TEMP 36.6; O2SAT 98; BMI 35.9
--- NOTE | 2023-07-17 01:26 | ED.GENADULT ---
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 He also c/o L arm pain from IV site and is asking for IV morphine for his bruise on the L arm. MD complaint: multiple complaints Onset (ago): hour(s) (several) Location: abdomen, left and upper extremity Radiation: non-radiation Severity: moderate Quality: aching Pain Consistency: constant Relieving factors: none Exacerbating factors: movement Associated symptoms: other (states catheter is not draining) Treatments prior to arrival: other (just discharged on multiple new medications) Related Data Home Medications Medication Instructions Recorded Confirmed albuterol sulfate 2.5 mg/3 mL 2.5 mg inhalation Q4H PRN Wheezing 06/04/23 07/12/23 (0.083 %) solution for nebulization albuterol sulfate 90 mcg/actuation 2 puff inhalation Q4H PRN wheezing 06/04/23 07/12/23 aerosol inhaler (Ventolin HFA) atorvastatin 80 mg tablet 80 mg PO BEDTIME 06/04/23 07/12/23 aspirin 81 mg tablet,delayed 81 mg PO DAILY 06/17/23 07/12/23 release insulin lispro 100 unit/mL 10 unit subcut BID@0800,1200 06/17/23 07/12/23 subcutaneous pen tamsulosin 0.4 mg capsule 0.4 mg PO BEDTIME 06/17/23 07/12/23 metformin 1,000 mg tablet 1,000 mg PO BIDWM 06/24/23 07/12/23 insulin glargine 100 unit/mL (3 42 unit subcut BEDTIME 07/09/23 07/12/23 mL) subcutaneous pen (Lantus Solostar U-100 Insulin) carvedilol 25 mg tablet 25 mg PO BID 07/10/23 07/12/23 ipratropium 20 mcg-albuterol 100 1 puff inhalation QID 07/10/23 07/12/23 mcg/actuation mist for inhalation (Combivent Respimat) oxycodone 5 mg tablet 5 mg PO Q4H PRN pain 07/10/23 07/12/23 Previous Rx's Medication Instructions Recorded furosemide 20 mg tablet 60 mg (3 x 20 mg) PO DAILY #90 tabs 06/19/23 lisinopril 10 mg tablet 10 mg PO DAILY #30 tabs 06/19/23 amoxicillin 875 mg-potassium 1 tab PO Q12H 5 days #10 tabs 07/16/23 clavulanate 125 mg tablet doxazosin 2 mg tablet 4 mg PO BEDTIME 30 days #60 tabs 07/16/23 doxycycline monohydrate 100 mg 100 mg PO BID 5 days #10 tabs 07/16/23 tablet finasteride 5 mg tablet 5 mg PO DAILY 30 days #30 tabs 07/16/23 lactulose 20 gram/30 mL oral 20 g (30 mL) PO DAILY PRN laxative 07/17/23 solution effect #1,200 mL sennosides 8.6 mg capsule (senna) 8.6 mg PO BEDTIME PRN constipation 07/17/23 #30 caps Allergies Allergy/AdvReac Type Severity Reaction Status Date / Time No Known Allergies Allergy Verified 07/12/23 00:16 Review of Systems Review of Systems: Constitutional : No Fever, No Chills ENT/Mouth : No Ear Pain, No Hoarseness, No sore throat Eyes: No Eye Pain, No Swelling, No Redness, No Foreign Body Cardiovascular : No Chest Pain, No SOB Respiratory : No Cough, No Dyspnea Gastrointestinal : No Nausea, No Vomiting, No Diarrhea, No abdominal Pain, pos constipation Genitourinary : No Dysuria, No Hematuria Musculoskeletal : positive arm pain pain, No Myalgias, No Joint Swelling Skin : No Skin lacerations, No rash Neuro : No Weakness, No Numbness, No Loss of Consciousness, No Dizziness, No Headache Psych : No Anxiety/Panic, No Depression All other systems reviewed and are negative PMFSH Past Medical History Attestation statement: The following information was validated with the patient. Source: old records reviewed Onset Date is defined in the Problem List Problems that require an onset date and time if occurred within 24 hrs of arrival to the ED Aortic Dissection and Rupture; Neurologic impairment; Cardiopulmonary Arrest; Endotracheal Intubation; Insertion or Replacement of Mechanical Circulatory Assist Device Medical History Diabetic ulcer of left lower leg Chronic leg pain PVD (peripheral vascular disease) Type 2 diabetes mellitus PAD (peripheral artery disease) Right above-knee amputee History of right above knee amputation Infection of amputation site of lower extremity BKA stump complication Below-knee amputation of right lower extremity BPH (benign prostatic hyperplasia) Cardiomyopathy CAD (coronary artery disease) History of peripheral vascular disease Coronary artery disease Cardiomyopathy Essential hypertension Type 2 diabetes mellitus with unspecified complications Abscess, perineum Asthma High cholesterol HTN (hypertension) Diabetes Surgical History History of surgical removal of pilonidal cyst Hx of hand surgery Hx of hand surgery History of cardiac cath S/P angiogram of extremity Hx of varicose vein stripping Family History Family History Father No problems noted. Mother Diabetes HTN (hypertension) Sister No problems noted. Sister Diabetes HTN (hypertension) Sister No problems noted. Social History Social History Household Members: None Household Members Other:: SELF Housing: Apartment Housing Other:: elderly housing Are you a primary day care home mother to a significant other at home: No Do you presently have visiting nurse or other home services: Yes (human resources compliance manager's) Alcohol intake: never Comment: Refused bed and chair alarm. Patient Tobacco Use Status: Never used Tobacco Tobacco use type: Cigarette Cigarette Packs Per Day: 0.5 Cigarettes Per Day: 2 Years Smoked: 15+ Smoked in Last 30 Days: No Second Hand Smoke Exposure: No Use of substances other than those prescribed or required for medical reasons: No Advance Directives: Yes Advance Directives on File: Yes Advance Directives Date on File: 12/10/20 service: No Current occupational status: disabled Physical Exam ED Vital Signs: Vital Signs - 24 hr 07/17/23 01:11 07/17/23 02:25 Temperature 97.8 F 97.5 F Pulse Rate 81 74 Respiratory Rate 18 18 Blood Pressure 120/82 117/63 Pulse Oximetry 98 97 Oxygen Delivery Method Room Air Room Air BMI result Body Mass Index 35.9 Appearance: Alert. Oriented X3. No acute distress. Eyes: Pupils equal, round and reactive to light. ENT: Pharynx normal. Neck: Normal inspection. Neck supple. CVS: Normal heart rate and rhythm. Pulses normal. Respiratory: No respiratory distress. Breath sounds normal. Abdomen: Soft and nontender. : draining ochoa, bladder scan empty, penis and scrotum are swollen Skin: Skin warm and dry. Normal skin color. Normal skin turgor. Extremities: R AKA, L 1+ pitting edema dressings are c/d/i. L arm no redness there is a bruise medial aspect but no ropy cord or warmth signs of infection - distal NV intact can move arm Neuro: Oriented X 3. No motor deficit. No sensory deficit. Medications Administered Discontinued Medications Generic Name Dose Route Start Last Admin Trade Name Freq PRN Reason Stop Dose Admin Lidocaine 1 patch 07/17/23 01:24 07/17/23 01:41 Lidocaine 4 % Patch Adh..Patch TRANSDERMA 07/17/23 01:25 1 patch ONCE ONE Administration Protocol Procedures Procedure Narrative Procedure Narrative: bedside US bladder - no urine seen ochoa balloon in place bedside LUE US compressible veins noted in basilic area and axillary area - which is area that coincides with his bruising and pain no clot noted Medical Decision Making Medical Decision Making MDM Narrative: 62 yo male with PMH of DM, PVD status post right AKA, CHF with reduced ejection fraction, BPH, HLD, GERD currently on augmentin and doxy for LLE cellulitis just left 07/16 from inpatient who is stating his catheter isn't draining but it is and bladder scan is empty as well as US with urine in ochoa bag, constipation for 4 days but no n/v and passing gas, he is also demanding IV morphine for L arm bruise from IV site but no signs of infection and bedside US shows no DVT at this time compressible veins noted up and no clot seen - he is NV intact. discussed constipation likely due to opiate use and he is upset demanding morphine. Differential Diagnosis Differential Diagnoses: The differential diagnosis associated with the presentation includes constipation, pain syndrome Admission/Observation Consideration of admission/observation: Escalation of care including admission/observation considered just discharge VS stable, no n/v/ passing gas no obstruction on KUB Lab Data MDM Lab Attestation statement: I reviewed the patient's lab results. Labs: Lab Results 07/17/23 Range/Units 01:19 POC Glucose 241 H (60-115) mg/dL Independent Interpretation I performed an independent interpretation of an: Plain X-Ray Radiology Impression Discussion of test interpretation with radiology: I have reviewed the radiologist's reading. Independent Historian Clinical information obtained from an independent historian. History obtained from or confirmed by: EMS External Record Review External record reviewed: Inpatient record Prescription Management I considered prescription management with: Other Discharge Plan Discharge Clinical Impression: Acute constipation Patient Disposition: Home, Self-Care Instructions: Constipation (ED) Additional Instructions: return for fevers, vomiting, unable to pass gas or any other concerns. Regrese si tiene fiebre, v?mitos, no puede expulsar gases o cualquier otra inquietud. Prescriptions: New senna 8.6 mg capsule 8.6 mg PO BEDTIME PRN (Reason: constipation) Qty: 30 0RF lactulose 20 gram/30 mL solution 20 g PO DAILY PRN (Reason: laxative effect) Qty: 1200 0RF No Action atorvastatin 80 mg tablet 80 mg PO BEDTIME albuterol sulfate 2.5 mg /3 mL (0.083 %) solution for nebulization 2.5 mg inhalation Q4H PRN (Reason: Wheezing) albuterol sulfate [Ventolin HFA] 90 mcg/actuation HFA aerosol inhaler 2 puff INHALATION Q4H PRN (Reason: wheezing) insulin glargine [Lantus Solostar U-100 Insulin] 100 unit/mL (3 mL) insulin pen 42 unit subcut BEDTIME oxycodone 5 mg tablet 5 mg PO Q4H PRN (Reason: pain) carvedilol 25 mg tablet 25 mg PO BID Combivent Respimat 20-100 mcg/actuation mist 1 puff INHALATION QID aspirin 81 mg tablet,delayed release (DR/EC) 81 mg PO DAILY Hold Instructions: resume 07/19 tamsulosin 0.4 mg capsule 0.4 mg PO BEDTIME insulin lispro 100 unit/mL insulin pen 10 unit subcut BID@0800,1200 Hold Instructions: blood sugar has been controlled with lantus in the hospital. monitor blood sugars and resume as needed Rx Instructions: TWICE A DAY AT BREAKFAST AND LUNCH lisinopril 10 mg Tablet 10 mg PO DAILY Qty: 30 0RF Protocol: Hold for SBP< HOLD for SBP < : 90 furosemide 20 mg tablet 60 mg PO DAILY Qty: 90 0RF metformin 1,000 mg Tablet 1,000 mg PO BIDWM doxazosin 2 mg Tablet 4 mg PO BEDTIME 30 Days Qty: 60 0RF Protocol: Hold for SBP< HOLD for SBP < : 90 finasteride 5 mg Tablet 5 mg PO DAILY 30 Days Qty: 30 0RF doxycycline monohydrate 100 mg tablet 100 mg PO BID 5 Days Qty: 10 0RF amoxicillin-pot clavulanate 875-125 mg tablet 1 tab PO Q12H 5 Days Qty: 10 0RF Print Language: Citizen Of [place]
[2023-07-17 01:28] LABS: Glucose, Whole Blood 241 mg/dL (60-115)
--- NOTE | 2023-07-17 01:28 | MHC.EDTECH ---
Patient came in by ambulance,changed into hospital attire, vitals taken, POC obtained and is 241,Finesse RN aware. Patient came in with a Finnegan Catheter,Approximately 500MLS of yellow urine,patient bladder scanned and has zero in bladder,MD and RN are aware
--- NOTE | 2023-07-17 01:28 | PC.NURSE ---
On assessment, pt ochoa is patent, approx 100-200CC moderately dark urine present in bag, bladder scan showing no fluid buildup. Bruising noted to L arm in particular, pt moving BUE freely with no limitations. Pt specifically requesting dose of morphine for pain, MD aware. Noted swelling to penis and testicles, baseline per pt.
[2023-07-17] MEDS: Lidocaine 4 % Patch ADH..PATCH 1 PATCH TRANSDERMA (01:41)
[2023-07-17 02:25] VITALS: BP 117/63; PULSE 74; RESP 18; TEMP 36.4; O2SAT 97
--- NOTE | 2023-07-17 02:27 | MHC.EDTECH ---
Hourly rounds and vitals completed,patient repositioned to comfort and call dominguez in reach
--- NOTE | 2023-07-17 03:13 | PC.NURSE ---
Pt provided with discharge paperwork and education in preparation for ambulance transportation home. Pt requested Oxycodone for his pain; however, MD had previously declined to order that particular medication in setting of constipation. This RN reeducated pt on home care of constipation, medications prescribed and concerns with taking medications like Oxy. Pt verbalized understanding of discharge information, though he expressed disappointment that we would not give him the medication requested.
== END 2023-07-17 04:01 | disposition home or self-care (01) ==
PROVIDERS: Emergency Provider Emergency Medicine
DX: K59.00 Constipation, unspecified (principal); M79.602 Pain in left arm; R60.0 Localized edema; E11.9 Type 2 diabetes mellitus without complications; I10 Essential (primary) hypertension; E78.5 Hyperlipidemia, unspecified; Z79.02 Long term (current) use of antithrombotics/antiplatelets; Z79.4 Long term (current) use of insulin; Z79.82 Long term (current) use of aspirin; Z79.84 Long term (current) use of oral hypoglycemic drugs
CPT/HCPCS: 74018; 82947; 99283; 99285